=== PATIENT | male | born 1970 | race Caucasian/White ===

== ENCOUNTER 2020-10-13 21:36 | Emergency (ER) | payer MEDICAID, SELFPAY ==
--- NOTE | 2020-10-13 22:19 | PC.NURSE ---
PT BLANCHE, REFUSING TRIAGE UPON ARRIVAL, STATING I WANT TO GO TO [facility], ILL JUST CALL A CAB AND GO THERE .
--- NOTE | 2020-10-13 22:44 | PC.NURSE ---
this rn unable to get a hold of any taxi for patient. d/t inability to acquire any transportation pt now agreeable to evaluation in this ed.
[2020-10-13 22:53] VITALS: BP 119/68; PULSE 100; RESP 18; TEMP 36.6; O2SAT 95; BMI 30.5
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
--- NOTE | 2020-10-14 00:44 | PC.NURSE ---
pt has mahesh foot wounds and is on methadone, pt wants to go back to the surgeon that did the original operation that can treat his infection. pt wants to leave without treatment at this time. provider at bedside and all the risks explained to the pt. pt feet wrapped in fresh dressings and is ready to leave.
--- NOTE | 2020-10-14 01:20 | PC.NURSE ---
pt poc by ems 311
== END 2020-10-14 00:57 | disposition left against medical advice (07) ==
PROVIDERS: Emergency Provider Internal Medicine
DX: M86.272 Subacute osteomyelitis, left ankle and foot (principal); M25.572 Pain in left ankle and joints of left foot; I10 Essential (primary) hypertension; E11.9 Type 2 diabetes mellitus without complications; Z79.899 Other long term (current) drug therapy
CPT/HCPCS: 96360; 96361; 99283

== ENCOUNTER 2022-03-16 02:44 | Inpatient (IN) | payer MEDICAID, SELFPAY ==
[2022-03-16] VITALS (9 sets, daily range): BP systolic 106–136; BP diastolic 49–76; PULSE 71–93; RESP 13–20; TEMP 36.4–37.2; O2SAT 93–100; BMI 32.0
--- NOTE | ~2022-03-16 | XR_ITS ---
EXAMINATION: XR FOOT, RIGHT CLINICAL INFORMATION: Deep wound COMPARISON: 02/09/2020 TECHNIQUE: AP and lateral views of the right foot. FINDINGS: Status post amputation through the bases of the metatarsals. Articular alignment appears anatomic. No acute fracture is seen. There is soft tissue swelling at the distal foot with multiple clips present. No definite osseous findings to suggest osteomyelitis. XR/XR foot RT 2V IMPRESSION: Soft tissue swelling adjacent to the transmetatarsal amputation site, without appreciable acute osseous findings.
[2022-03-16 03:19] LABS: Basophils Percent Auto 0.5 % (0-2); Eosinophils Percent Auto 0.3 % (0-4); Hematocrit 35.9 % (42.0-52.0); Hemoglobin 11.9 g/dl (14.0-18.0); Imm Gran Abs Auto 0.01 X10*3/uL (0.00-0.03); Imm Gran Pct Auto 0.2 % (0.0-0.4); Lymphocytes Absolute Auto 1.2 X10*3/uL (1.2-4.9); Lymphocytes Percent Auto 19.7 % (20-40); MANUAL DIFF FLAG NO; Mean Corpuscular HGB Conc 33.1 g/dl (31.0-36.0); Mean Corpuscular Hemoglobin 29.4 pg (27.0-33.0); Mean Corpuscular Volume 88.6 fL (80.0-98.0); Monocytes Absolute Auto 0.7 X10*3/uL (0.1-1.2); Monocytes Percent Auto 11.7 % (2-11); Neutrophils Absolute Auto 4.2 x10*3/uL (2.0-8.3); Neutrophils Percent Auto 67.6 % (45-73); Platelet Count 117 X10*3/uL (160-400); Red Blood Count 4.05 X10*6/uL (4.60-5.80); Red Cell Distribution Width 15.1 % (11.0-16.0); White Blood Count 6.3 X10*3/uL (4.8-10.8)
--- NOTE | 2022-03-16 03:23 | PC.NURSE ---
Care of patient assumed in ED. Patient presents via EMS after calling [address] after running out of oxygen while walking to a [employer] and becoming SOB after his oxygen ran out. Patient ambulatory from EMS stretcher to ED stretcher. Patient is alert, oriented x3. He initially states he only called 911 because he ran out of oxygen, but then states while I'm here can you look at my foot? Patient's right foot is red with two notable ulcers and all toes amputated. Hx compartment syndrome to that foot resulting in amputation. Patient also with a history of hypertension and COVID (resulting in him being on 2L NC). Room air saturation 93% but 2L NC applied since it's patient's baseline. Call toth within reach.
[2022-03-16 04:18] LABS: Alanine Aminotransferase 39 U/L (0-40); Albumin Level 4.1 g/dL (3.5-5.0); Alkaline Phosphatase 180 U/L (39-117); Anion Gap 24 (12-20); Aspartate Amino Transferase 67 U/L (5-37); Bilirubin Total 0.8 mg/dL (0.0-1.0); Blood Urea Nitrogen 33 mg/dL (9-16); Calcium 8.9 mg/dL (8.4-10.2); Carbon Dioxide 17 mmol/L (22-29); Chloride 101 mmol/L (96-108); Creatinine Clr Calc Pharmacy 85.2; Estimated Glomerular Filt Rate 52; Glucose Random 250 mg/dL (60-115); Potassium 5.7 mmol/L (3.3-5.1); Sodium 136 mmol/L (135-145); Total Protein 7.9 g/dL (6.5-8.0)
--- NOTE | 2022-03-16 04:19 | ED.GENADULT ---
HPI - General Adult General Chief complaint: General Medical Stated complaint: SOB, RAN OUT OF 02 Time Seen by Provider: 03/16/22 02:54 Source: patient Mode of arrival: EMS Limitations: no limitations History of Present Illness HPI narrative: Patient homeless person history of substance abuse, diabetes and hypertension hypoxia after COVID-19 using 2 L oxygen on ambulation . today was walking on the street with his walker and felt more short of breath no cough no fever no leg swelling was saturating high 80s now to 2 L , 95% patient does have oxygen at home in the ER patient saturating 93% at room air Related Data Allergies Allergy/AdvReac Type Severity Reaction Status Date / Time aspirin [ASA] Allergy Unknown HIVES Unverified 02/20/20 16:18 naproxen [From NAPROSYN] Allergy Unknown HIVES Unverified 02/20/20 16:18 NSAIDS (Non-Steroidal Allergy Unknown HIVES Unverified 02/20/20 16:18 Anti-Inflamma [NSAIDS (NON-STEROIDAL ANTI-INFLAMMA] Penicillins [PENICILLINS] Allergy Unknown HIVES Unverified 02/20/20 16:18 From COMPAZINE Allergy Unknown HIVES Uncoded 02/20/20 16:18 Review of Systems Review of Systems: Yes all other systems are reviewed and are negative PMFSH Past Medical History Medical History Compartment syndrome of left lower extremity Diabetes HTN (hypertension) Social History Social History Advance Directives: No Advance Directives Information Provided: No Physical Exam ED Vital Signs: Vital Signs - 24 hr 03/16/22 02:54 03/16/22 02:58 03/16/22 04:03 Temperature 98.2 F 97.5 F Pulse Rate 93 79 Respiratory Rate 20 14 Blood Pressure 131/71 106/49 L Pulse Oximetry 93 98 97 Oxygen Delivery Method Room Air Nasal Cannula Room Air Oxygen Flow Rate 2 03/16/22 04:26 03/16/22 05:55 Temperature Pulse Rate 85 Respiratory Rate 17 Blood Pressure 121/62 Pulse Oximetry 93 98 Oxygen Delivery Method Room Air Nasal Cannula Oxygen Flow Rate 2 BMI result Body Mass Index 32.0 Appearance: Alert. Oriented X3. No acute distress. Lethargic and sleepy Eyes: PERRLA, No Nystagmus ENT: Pharynx normal. Oral Mucosa moist Neck: Normal inspection. Neck supple. CVS: Normal heart rate and rhythm. Pulses normal. Respiratory: No respiratory distress. Equal air entry bilateral, no wheezing/rales/rhonchi Abdomen: Soft and nontender. Bowel sounds are present, no mass palpable, no CVA tenderness Skin: Skin warm and dry. Normal skin color. Normal skin turgor. Extremities: No lower extremity edema. No calf tenderness , right metatarsal amputation with deep ulcers at the base surrounding erythema warmth all the way to mid broussard Neuro: Oriented X 3. No motor deficit. No sensory deficit.No cerebellar signs , cranial nerves II-XII intact Medical Decision Making MDM Narrative Medical decision making narrative: 6 am Patient noticed to be in ABBY with potassium 5.7 and creatinine of 1.43 and AA gap of 24 , will give IV fluids while asleep patient pulse ox dropped to 88% will admit patient for right leg cellulitis Lab Data Result diagrams: 03/16/22 03:06 03/16/22 03:55 Labs: Lab Results 03/16/22 03/16/22 03/16/22 Range/Units 03:06 03:55 06:00 WBC 6.3 (4.8-10.8) X10*3/uL RBC 4.05 L (4.60-5.80) X10*6/uL Hgb 11.9 L (14.0-18.0) g/dl Hct 35.9 L (42.0-52.0) % MCV 88.6 (80.0-98.0) fL MCH 29.4 (27.0-33.0) pg MCHC 33.1 (31.0-36.0) g/dl RDW 15.1 (11.0-16.0) % Plt Count 117 L (160-400) X10*3/uL MPV 11.0 (9.4-12.4) fL Immature Gran % (Auto) 0.2 (0.0-0.4) % Neut % (Auto) 67.6 (45-73) % Lymph % (Auto) 19.7 L (20-40) % [place] % (Auto) 11.7 H (2-11) % Eos % (Auto) 0.3 (0-4) % Baso % (Auto) 0.5 (0-2) % Lymph # (Auto) 1.2 (1.2-4.9) X10*3/uL [place] # (Auto) 0.7 (0.1-1.2) X10*3/uL Eos # (Auto) 0.0 (0.0-0.4) X10*3/uL Baso # (Auto) 0.0 (0.0-0.2) X10*3/uL Abs Immat Gran (auto) 0.01 (0.00-0.03) X10*3/uL Absolute Neuts (auto) 4.2 (2.0-8.3) x10*3/uL Absolute Nucleated RBC 0.000 (0.0-0.012) X10*3/uL Nucleated RBC % (auto) 0.0 (0.0-0.2) /100WBC Sodium 136 (135-145) mmol/L Potassium 5.7 H (3.3-5.1) mmol/L Chloride 101 (96-108) mmol/L Carbon Dioxide 17 L (22-29) mmol/L Anion Gap 24 H (12-20) BUN 33 H (9-16) mg/dL Creatinine 1.43 H (0.5-1.4) mg/dL Estim Creat Clear Calc 85.2 Estimated GFR 52 Random Glucose 250 H (60-115) mg/dL Lactic Acid 1.5 (0.5-2.0) mmol/L Calcium 8.9 (8.4-10.2) mg/dL Magnesium 2.0 (1.6-2.6) mg/dL Total Bilirubin 0.8 (0.0-1.0) mg/dL AST 67 H (5-37) U/L ALT 39 (0-40) U/L Alkaline Phosphatase 180 H (39-117) U/L Total Protein 7.9 (6.5-8.0) g/dL Albumin 4.1 (3.5-5.0) g/dL Discharge Plan Discharge Clinical Impression: Cellulitis, Acute and chronic respiratory failure with hypoxia Patient Disposition: Admitted As Inpatient
--- NOTE | 2022-03-16 05:17 | PC.NURSE ---
While providing patient with discharge paperwork, he states he doesn't feel safe to leave and begins swearing at this RN. K also results as slightly high at this time. MD Wilson made aware.
[2022-03-16] MEDS: Sodium Zirconium Cyclosilicate 10 GM POWD.PACK PO (05:21)
[2022-03-16] MEDS: 0.9 % Sodium Chloride 1,000 ML 999 ML IV (05:49)
[2022-03-16] MEDS: Calcium Gluconate/NaCl,Iso-Osm 2 GM/100 ML PLAST..BAG IV (05:49)
[2022-03-16 06:21] LABS: Lactic Acid 1.5 mmol/L (0.5-2.0)
[2022-03-16] MEDS: cefEPime HCl 2 GM in 0.9 % Sodium Chloride 50 ML IV (06:33)
[2022-03-16 09:53] LABS: COVID-19 Test Negative (Negative); IDNOW Serial# 55D5AD1C
[2022-03-16 11:16] LABS: ABG Base Excess 2.4 mmol/L; ABG HCO3 28 mmol/L (22-26); ABG pCO2 47 mmHg (32-45); ABG pH 7.37 (7.35-7.45); ABG pO2 81 mmHg (83-108)
[2022-03-16 11:17] LABS: ABG Refer to POC result
[2022-03-16 11:34] LABS: Lactate Dehydrogenase 248 U/L (118-273)
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
--- NOTE | 2022-03-16 12:44 | PHA.PROG ---
Admission Date/Time: March 16, 2022 12:02 Indication: SKIN AND SKIN STRUCTURE Weight in k.295 kg Adjusted body weight in K.7 [place] body weight in Kg: Obesity Dosing Indication % IBW:37% OVER IBW Serum Creatinine - Last 168 Hours 03/16/22 03:55 Creatinine 1.43 H Estimated CrCl and GFR - Last 168 Hours 03/16/22 03:55 Estim Creat Clear Calc 85.2 Estimated GFR 52 Vancomycin Loading Dose: 2000 MG Current Vancomycin Dosing Regimen: 1500 MG Q 24 HOURS Vancomycin Monitoring using AUC goal of 400 - 600 range with trough as surrogate marker: PREDICTED AUC OF 472 Date and Time for next Vancomycin Level to be drawn: WILL CHECK A RANDOM AFTER 2 DOSES Pharmacist Comments on Vancomycin Plan:if renal function improves may need to increase to twice a day Vancomycin dosing will take advantage of [employer] as a clinical decision support tool that uses Bayesian modeling to calculate individual patient's pharmacokinetic parameters and forecast the patient's drug concentration time course with the target goal AUC 24 range of 400 - 600 mg/L/hr.
[2022-03-16] MEDS: Insulin Glargine,Hum.rec.anlog 100 UNIT/ML 10 ML VIAL 90 UNIT SUBCUT (13:43)
[2022-03-16 13:59] LABS: Estimated Average Glucose 212 mg/dL
[2022-03-16] MEDS: 0.9 % Sodium Chloride 1,000 ML 100 ML IVCONT (14:09)
--- NOTE | 2022-03-16 14:13 | MHC.RECOVRN ---
This engineering technical writer received consult via the Care Team, attempted to meet w/ pt. Pt unable to engage in conversation, pt not waking to verbal/physical stimuli, pt continued sleeping, t/w will attempt to reassess.
--- NOTE | 2022-03-16 15:00 | PHA.MEDREC ---
Pharmacy Consult ? Medication Reconciliation Pharmacy has completed the medication reconciliation. Patient is non arousable, tried to speak to him multiple times throughout the day. Used pharmacy claims to compile med list.
[2022-03-16] MEDS: Gabapentin 600 MG TABLET PO ×2 (15:37→20:56)
[2022-03-16] MEDS: cloNIDine HCL 0.2 MG TABLET PO ×2 (15:37→20:56)
[2022-03-16 18:18] LABS: Glucose, Whole Blood 103 mg/dL (60-115)
[2022-03-16 20:42] LABS: Glucose, Whole Blood 218 mg/dL (60-115)
[2022-03-16] MEDS: Atorvastatin Calcium 40 MG TABLET PO (20:56)
[2022-03-16] MEDS: QUEtiapine Fumarate 100 MG TABLET PO (20:56)
[2022-03-16] MEDS: Furosemide 40 MG TABLET PO (20:56)
[2022-03-16] MEDS: clonazePAM 1 MG TABLET PO (20:56)
[2022-03-16] MEDS: Insulin Lispro 100 UNIT/ML 3 ML VIAL SUBCUT (20:59)
--- NOTE | 2022-03-16 21:14 | HE.PHANOTE ---
RE: methadone Dr. Dias put in a daily methadone dose of 140mg however no verification form is on file; spoke to nurse Sera who noted she will work on getting the verification form for 03/17/22. Consulted with Dr. Dias and agreed to put in a one time 40mg dose for now pending verification in the morning.
--- NOTE | 2022-03-16 21:28 | PC.NURSE ---
patient with Chronic ulceration to right foot,Dr. Dias notified,questioned need for exhibit specialist consult
[2022-03-16] MEDS: methADONE HCl 20 MG/2 ML ORAL.CONC 40 MG PO (21:29)
--- NOTE | 2022-03-17 01:14 | PC.NURSE ---
Addendum entered by Sophia Beauchamp RN 03/17/22 07:03: Was about to give the Regular insulin , but pt demanded his POC checked first by fingersticks, and refusing his Regular insulin, Dr. Dias was updated that pt is refusing his insuliin for now until fingerstick is done. Addendum entered by Sophia Beauchamp RN 03/17/22 07:02: correction to previous chart, MD ordered Regular insulin 5 units IVP. Addendum entered by Sophia Beauchamp RN 03/17/22 06:31: Lipro 5 untis SC ordered later. Addendum entered by Sophia Beauchamp RN 03/17/22 06:29: Critical result from lab came with glucose =390, Dr. Dias was informed, no further order. Original Note: Pt was refusing IVF to continue, he said he drinks and eat a lot more than the bags he's getting, explained about his high BUN and Creatinine when admitted, but still refusing and promised to eat and drink more, Dr. Dias was made aware.
[2022-03-17 06:20] LABS: Alanine Aminotransferase 26 U/L (0-40); Albumin Level 3.3 g/dL (3.5-5.0); Alkaline Phosphatase 148 U/L (39-117); Anion Gap 15 (12-20); Aspartate Amino Transferase 36 U/L (5-37); Bilirubin Total 0.4 mg/dL (0.0-1.0); Blood Urea Nitrogen 19 mg/dL (9-16); Calcium 8.5 mg/dL (8.4-10.2); Carbon Dioxide 26 mmol/L (22-29); Chloride 104 mmol/L (96-108); Creatinine Clr Calc Pharmacy 97.5; Estimated Glomerular Filt Rate > 60; Potassium 5.2 mmol/L (3.3-5.1); Sodium 140 mmol/L (135-145); Total Protein 6.1 g/dL (6.5-8.0)
[2022-03-17 06:25] LABS: Glucose Random 390 mg/dL (60-115)
[2022-03-17 07:35] VITALS: BP 117/55; PULSE 80; RESP 20; TEMP 37; O2SAT 95
[2022-03-17] MEDS: Furosemide 40 MG TABLET PO ×2 (07:41→19:29)
[2022-03-17] MEDS: cloNIDine HCL 0.2 MG TABLET PO ×3 (07:41→19:29)
[2022-03-17] MEDS: QUEtiapine Fumarate 100 MG TABLET PO ×2 (07:41→19:29)
[2022-03-17] MEDS: Gabapentin 600 MG TABLET PO ×3 (07:41→19:29)
[2022-03-17] MEDS: Insulin Glargine,Hum.rec.anlog 100 UNIT/ML 10 ML VIAL 90 UNIT SUBCUT (07:43)
[2022-03-17] MEDS: 0.9 % Sodium Chloride Flush 3 ML SYRINGE IVFLUSH (07:47)
[2022-03-17 07:49] LABS: Glucose, Whole Blood 241 mg/dL (60-115)
--- NOTE | 2022-03-17 07:56 | HE.PHANOTE ---
RE VANCO SCR IS IMPROVING (1.25) SO WILL CHANGE TO 1 GRAM Q12. NEXT TROUGH OS 03/18 @0600. ON 1G Q12, SUSPECTED AUC 545, TROUGH 16.2 ALLY
[2022-03-17] MEDS: vancomycin HCL 1,000 MG in 0.9 % Sodium Chloride 250 ML 270 MG IV ×2 (07:57→19:27)
--- NOTE | 2022-03-17 09:04 | P.PNIM_ITS ---
Subjective Subjective Date of Service: 03/17/22 Interval History: cc: right TMA site pain, ran out of home o2 interval history:right tma site pain Cardiovascular Cardiovascular: Reports no additional cardiovascular complaints Respiratory Respiratory: Reports no additional respiratory complaints Physical Exam Vital Signs: Vital Signs: Last Vital Signs Temp 98.6 F 03/17/22 07:35 Pulse 80 03/17/22 07:35 Resp 20 03/17/22 07:35 BP 117/55 L 03/17/22 07:35 Pulse Ox 95 03/17/22 07:35 O2 Del Method 03/17/22 07:35 O2 Flow Rate 2.0 03/17/22 07:35 BMI result Body Mass Index 32.0 General: AO X 3, no acute distress Resp: CTA bilateral, no accessory muscles used CVS: S1,S2,RRR GI: soft, non tender, non distended Neuro: motor grossly intact, alert Psych: appropriate affect, appropriate insight RLE tMA site erythema, shallow ulcers Objective Data Active Medications Acetaminophen (Acetaminophen 325 Mg Tablet) 650 mg PO Q6H PRN PRN Reason: Pain, Mild (Pain Scale 1-3) Atorvastatin Calcium (Atorvastatin Calcium 40 Mg Tablet) 40 mg PO BEDTIME [facility] Last Admin: 03/16/22 20:56 Dose: 40 mg Documented By: CHADD Clonazepam (Clonazepam 1 Mg Tablet) 1 mg PO BID PRN PRN Reason: anxiety Last Admin: 03/16/22 20:56 Dose: 1 mg Documented By: CHADD Clonidine HCl (Clonidine Hcl 0.2 Mg Tablet) 0.2 mg PO TID [facility]; Protocol Last Admin: 03/17/22 07:41 Dose: 0.2 mg Documented By: MARCO Dextrose (Dextrose 50 % 25 Gm/50 Ml Syringe) 25 gm IVPUSH Q15M PRN; Protocol PRN Reason: per Hypoglycemia Standing Ord. Enoxaparin Sodium (Enoxaparin Sodium 40 Mg/0.4 Ml Syringe) 40 mg SUBCUT Q24H [facility] Last Admin: 03/16/22 15:37 Dose: Not Given Documented By: DAVID Non-Admin Reason: Patient Refused Furosemide (Furosemide 40 Mg Tablet) 40 mg PO BID [facility]; Protocol Last Admin: 03/17/22 07:41 Dose: 40 mg Documented By: MARCO Gabapentin (Gabapentin 600 Mg Tablet) 600 mg PO TID [facility] Last Admin: 03/17/22 07:41 Dose: 600 mg Documented By: MARCO Glucose (Glucose Gel 15 Gm Gel..Gram.) 15 gm PO Q15M PRN; Protocol PRN Reason: per Hypoglycemia Standing Ord. Sodium Chloride (Ns) 1,000 mls @ 100 mls/hr IVCONT .Q10H [facility] Last Infusion: 03/17/22 00:17 Dose: 0 mls/hr Documented By: ANDREW Vancomycin HCl 1,000 mg/ (Sodium Chloride) 270 mls @ 270 mls/hr IV Q12H [facility] Last Admin: 03/17/22 07:57 Dose: 270 mls/hr Documented By: MARCO Insulin Glargine (Insulin Glargine,Hum.Rec.Anlog 100 Unit/Ml 10 Ml Vial) 90 unit SUBCUT DAILY [facility] Last Admin: 03/17/22 07:43 Dose: 90 unit Documented By: MARCO Insulin Human Lispro (Insulin Lispro 100 Unit/Ml 3 Ml Vial) 0 unit SUBCUT QIDACHS [facility]; Protocol Last Admin: 03/17/22 07:44 Dose: Not Given Documented By: MARCO Non-Admin Reason: Patient Refused Methadone HCl (Methadone Hcl 20 Mg/2 Ml Oral.Conc) 140 mg PO DAILY [facility] Pharmacy Consult (Consult Rx Vancomycin Dosing) 1 each MISCELLANE DAILY PRN PRN Reason: Consult order Pharmacy Consult (Consult Rx Vancomycin Dosing) 1 each MISCELLANE DAILY PRN PRN Reason: Consult order Quetiapine Fumarate (Quetiapine Fumarate 100 Mg Tablet) 100 mg PO BID [facility] Last Admin: 03/17/22 07:41 Dose: 100 mg Documented By: MARCO Sodium Chloride (0.9 % Sodium Chloride Flush 3 Ml Syringe) 3 ml IVFLUSH QSHIFT [facility] Last Admin: 03/17/22 07:47 Dose: 3 ml Documented By: MARCO Labs CBC & Chem 7: 03/16/22 03:06 03/17/22 05:36 Labs: Laboratory Results - last 24 hr 03/16/22 03/16/22 03/16/22 09:12 11:10 11:11 O2 Saturation 96.0 ABG pH at Pt Temp 7.37 ABG pCO2 at Pt Temp 47 H ABG pO2 at Pt Temp 81 L ABG HCO3 28 H ABG Base Excess (Actual) 2.4 Anion Gap Estim Creat Clear Calc Estimated GFR POC Glucose Random Glucose Estimat Average Glucose Hemoglobin A1c % Calcium Total Bilirubin AST ALT Alkaline Phosphatase Lactate Dehydrogenase 248 Total Protein Albumin COVID-19 (NACHO) Negative COVID-19 Clin Com See Note 03/16/22 03/16/22 03/16/22 13:27 18:15 20:37 O2 Saturation ABG pH at Pt Temp ABG pCO2 at Pt Temp ABG pO2 at Pt Temp ABG HCO3 ABG Base Excess (Actual) Anion Gap Estim Creat Clear Calc Estimated GFR POC Glucose 103 218 H Random Glucose Estimat Average Glucose 212 Hemoglobin A1c % 9.0 Calcium Total Bilirubin AST ALT Alkaline Phosphatase Lactate Dehydrogenase Total Protein Albumin COVID-19 (NACHO) COVID-19 Clin Com 03/17/22 03/17/22 05:36 07:29 O2 Saturation ABG pH at Pt Temp ABG pCO2 at Pt Temp ABG pO2 at Pt Temp ABG HCO3 ABG Base Excess (Actual) Anion Gap 15 Estim Creat Clear Calc 97.5 Estimated GFR > 60 POC Glucose 241 H Random Glucose 390 H* Estimat Average Glucose Hemoglobin A1c % Calcium 8.5 Total Bilirubin 0.4 AST 36 D ALT 26 Alkaline Phosphatase 148 H Lactate Dehydrogenase Total Protein 6.1 L D Albumin 3.3 L COVID-19 (NACHO) COVID-19 Clin Com Microbiology Microbiology Results: Microbiology 03/16/22 06:00 Blood Culture - Preliminary Blood - Venous No growth after 24 hours. 03/16/22 06:00 Blood Culture - Preliminary Blood - Venous No growth after 24 hours. 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 Quality Stroke Does the patient have a stroke diagnosis?: No VTE Prior VTE?: No VTE Risk Level:: Medical - moderate - high VTE Device Contraindication: Treatment Not Indicated VTE Drug Contraindication: N/A - Med Ordered
--- NOTE | 2022-03-17 09:23 | MHC.RECOVRN ---
This health technical writer met w/ pt, pt sleeping, awake to verbal stimuli. Pt reports last use of heroin was last week, snorted approximately one bundle heroin. Pt reports has been in and out of hospitals for past 2 years. Pt states, while staying at the hospital, receives 140mg MTD daily. Pt reports two years ago, attended [facility] Methadone clinic. Pt reports MTD has helped pt with maintaining recovery from opiates and addresses chronic pain. Pt reports first heroin use at age [age] years old. Pt reports has been to detox in the past twice. Pt reports in the past drank ETOH, since diagnosis w/ Covid pt has not drank in approximately 2 years. Pt reports restleg legs and aches/pain, COWS=3. Discussed if pt would be interested in continuing with Methadone when discharged, pt states yes. Pt reports plan to move out to [facility] and interest in MTD clinic in [place]. Pts RN aware.
[2022-03-17] MEDS: 0.9 % Sodium Chloride 1,000 ML 100 ML IVCONT (11:25)
[2022-03-17 11:36] LABS: Glucose, Whole Blood 181 mg/dL (60-115)
--- NOTE | 2022-03-17 12:31 | MHC.RECOVRN ---
This video games storywriter met w/ pt, pt awake, alert, sitting up in bed. Pt frustrated as pt wants 140mg Methadone. This video games storywriter reviewed process, to start w/ 40mg MTD, as we need verification, offered for pt to sign AARON to verify last dose received at [facility]. Pt angry, upset, verbal escalation, states gave last dose letter to staff here . This video games storywriter informed pt that information was not available in chart, this video games storywriter encouraged pt to look through personal items. This video games storywriter reviewed w/ pt, here to make pt comfortable, ensure that withdrawal symptoms are addressed. Pt found letter and threw it at this writers face. Pt apologized for throwing the letter. Provider aware of last dose letter.
--- NOTE | 2022-03-17 13:27 | P.EN_ITS ---
Event Note Date of Service: 03/17/22 Event Note: This typewriter ribbon winder verified does with [facility] addiction consult service. Patient last received 140 mg methadone at [facility] on 03/14 22.
--- NOTE | 2022-03-17 13:27 | PM.EVENT ---
Event Note Date of Service: 03/17/22 Event Note: This food writer verified does with [facility] addiction consult service. Patient last received 140 mg methadone at [facility] on 03/14 22.
[2022-03-17] MEDS: methADONE HCl 20 MG/2 ML ORAL.CONC 140 MG PO (13:54)
[2022-03-17 13:58] VITALS: BP 116/56; PULSE 72; RESP 15; TEMP 36.9; O2SAT 99
[2022-03-17 15:35] VITALS: BP 153/72; PULSE 81; RESP 17; TEMP 36.4; O2SAT 99
--- NOTE | 2022-03-17 15:58 | MHC.RECOVRN ---
This lead technical writer met w/ pt, pt awake, alert, sitting up in bed drinking coffee, checked in about 140mg MTD, t/w asked if pt was feeling better, pt states yes. Brighter, comfortable affect. Provider aware.
[2022-03-17 16:12] LABS: Glucose, Whole Blood 327 mg/dL (60-115)
[2022-03-17] MEDS: Insulin Lispro 100 UNIT/ML 3 ML VIAL SUBCUT ×2 (16:36→19:41)
[2022-03-17 19:00] VITALS: BP 134/63; PULSE 76; RESP 16; TEMP 36.4; O2SAT 100
[2022-03-17] MEDS: Atorvastatin Calcium 40 MG TABLET PO (19:29)
[2022-03-17] MEDS: clonazePAM 1 MG TABLET PO (19:37)
[2022-03-17 19:42] LABS: Glucose, Whole Blood 289 mg/dL (60-115)
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
[2022-03-17 23:20] VITALS: BP 130/69; PULSE 62; RESP 17; TEMP 36.1; O2SAT 99
[2022-03-18 03:00] VITALS: BP 136/64; PULSE 69; RESP 17; TEMP 36.5; O2SAT 94
[2022-03-18] MEDS: 0.9 % Sodium Chloride 1,000 ML 100 ML IVCONT (05:48)
[2022-03-18 06:56] VITALS: BP 116/65; PULSE 73; RESP 19; TEMP 36.1; O2SAT 92
[2022-03-18 07:10] LABS: Glucose, Whole Blood 185 mg/dL (60-115)
[2022-03-18 08:31] LABS: Hematocrit 36.8 % (42.0-52.0); Hemoglobin 12.1 g/dl (14.0-18.0); Mean Corpuscular HGB Conc 32.9 g/dl (31.0-36.0); Mean Corpuscular Hemoglobin 29.2 pg (27.0-33.0); Mean Corpuscular Volume 88.9 fL (80.0-98.0); Red Blood Count 4.14 X10*6/uL (4.60-5.80); White Blood Count 3.2 X10*3/uL (4.8-10.8)
[2022-03-18] MEDS: Insulin Glargine,Hum.rec.anlog 100 UNIT/ML 10 ML VIAL 90 UNIT SUBCUT (08:41)
[2022-03-18] MEDS: cloNIDine HCL 0.2 MG TABLET PO ×3 (08:45→21:05)
[2022-03-18] MEDS: Insulin Lispro 100 UNIT/ML 3 ML VIAL SUBCUT ×4 (08:45→21:05)
--- NOTE | 2022-03-18 08:45 | P.PNIM_ITS ---
Subjective Subjective Date of Service: 03/18/22 Interval History: cc: right TMA site pain, ran out of home o2 interval history:right tma site pain Cardiovascular Cardiovascular: Reports no additional cardiovascular complaints Respiratory Respiratory: Reports no additional respiratory complaints Physical Exam Vital Signs: Vital Signs: Last Vital Signs Temp 97 F 03/18/22 06:56 Pulse 73 03/18/22 06:56 Resp 19 03/18/22 06:56 BP 116/65 03/18/22 06:56 Pulse Ox 92 03/18/22 06:56 O2 Del Method 03/18/22 06:56 O2 Flow Rate 2 03/17/22 23:20 BMI result Body Mass Index 32.0 General: AO X 3, no acute distress Resp: CTA bilateral, no accessory muscles used CVS: S1,S2,RRR GI: soft, non tender, non distended Neuro: motor grossly intact, alert Psych: appropriate affect, appropriate insight RLE tMA site erythema, shallow ulcers Objective Data Active Medications Acetaminophen (Acetaminophen 325 Mg Tablet) 650 mg PO Q6H PRN PRN Reason: Pain, Mild (Pain Scale 1-3) Atorvastatin Calcium (Atorvastatin Calcium 40 Mg Tablet) 40 mg PO BEDTIME [facility] Last Admin: 03/17/22 19:29 Dose: 40 mg Documented By: HUY Clonazepam (Clonazepam 1 Mg Tablet) 1 mg PO BID PRN PRN Reason: anxiety Last Admin: 03/17/22 19:37 Dose: 1 mg Documented By: HUY Clonidine HCl (Clonidine Hcl 0.2 Mg Tablet) 0.2 mg PO TID [facility]; Protocol Last Admin: 03/17/22 19:29 Dose: 0.2 mg Documented By: HUY Dextrose (Dextrose 50 % 25 Gm/50 Ml Syringe) 25 gm IVPUSH Q15M PRN; Protocol PRN Reason: per Hypoglycemia Standing Ord. Enoxaparin Sodium (Enoxaparin Sodium 40 Mg/0.4 Ml Syringe) 40 mg SUBCUT Q24H [facility] Last Admin: 03/17/22 16:56 Dose: Not Given Documented By: MARCO Non-Admin Reason: Patient Refused Furosemide (Furosemide 40 Mg Tablet) 40 mg PO BID [facility]; Protocol Last Admin: 03/17/22 19:29 Dose: 40 mg Documented By: HUY Gabapentin (Gabapentin 600 Mg Tablet) 600 mg PO TID [facility] Last Admin: 03/17/22 19:29 Dose: 600 mg Documented By: HUY Glucose (Glucose Gel 15 Gm Gel..Gram.) 15 gm PO Q15M PRN; Protocol PRN Reason: per Hypoglycemia Standing Ord. Sodium Chloride (Ns) 1,000 mls @ 100 mls/hr IVCONT .Q10H [facility] Last Infusion: 03/18/22 05:49 Dose: 0 mls/hr Documented By: HUY Vancomycin HCl 1,000 mg/ (Sodium Chloride) 270 mls @ 270 mls/hr IV Q12H [facility] Last Infusion: 03/17/22 21:00 Dose: 0 mls/hr Documented By: HUY Insulin Glargine (Insulin Glargine,Hum.Rec.Anlog 100 Unit/Ml 10 Ml Vial) 90 unit SUBCUT DAILY [facility] Last Admin: 03/17/22 07:43 Dose: 90 unit Documented By: MARCO Insulin Human Lispro (Insulin Lispro 100 Unit/Ml 3 Ml Vial) 0 unit SUBCUT QIDACHS [facility]; Protocol Last Admin: 03/17/22 19:41 Dose: 6 unit Documented By: HUY Methadone HCl (Methadone Hcl 20 Mg/2 Ml Oral.Conc) 140 mg PO DAILY [facility] Last Admin: 03/17/22 13:54 Dose: 140 mg Documented By: MARCO Pharmacy Consult (Consult Rx Vancomycin Dosing) 1 each MISCELLANE DAILY PRN PRN Reason: Consult order Pharmacy Consult (Consult Rx Vancomycin Dosing) 1 each MISCELLANE DAILY PRN PRN Reason: Consult order Quetiapine Fumarate (Quetiapine Fumarate 100 Mg Tablet) 100 mg PO BID [facility] Last Admin: 03/17/22 19:29 Dose: 100 mg Documented By: HUY Sodium Chloride (0.9 % Sodium Chloride Flush 3 Ml Syringe) 3 ml IVFLUSH QSHIFT [facility] Last Admin: 03/17/22 21:02 Dose: Not Given Documented By: HUY Non-Admin Reason: IV Running Labs CBC & Chem 7: 03/18/22 08:17 03/17/22 05:36 Labs: Laboratory Results - last 24 hr 03/17/22 03/17/22 03/17/22 11:29 15:38 19:33 MCV MCH MCHC RDW Absolute Nucleated RBC Nucleated RBC % (auto) POC Glucose 181 H 327 H 289 H 03/18/22 03/18/22 06:55 08:17 MCV 88.9 MCH 29.2 MCHC 32.9 RDW 15.0 Absolute Nucleated RBC 0.000 Nucleated RBC % (auto) 0.0 POC Glucose 185 H Microbiology Microbiology Results: Microbiology 03/16/22 06:00 Blood Culture - Preliminary Blood - Venous No growth after 48 hours. 03/16/22 06:00 Blood Culture - Preliminary Blood - Venous No growth after 48 hours. Assessment and Plan (1) Cellulitis: Status: Acute Plan 51M with pmh DM, PAD, opiate dependence, htn, hld, mood disorder, chornic h ypoxic respiratory failure due to post covid syndrome, presented with right TMA site pain and running out of o2 right TMA cellulitis and ulcer due to PAD and DM vanco, follow up cultures, ESR statin insulin, monitor poc rudi with mild hyperkalemia resolved, follow up repeat chronic hypoxic respiratory failure due to recent covid at baseline o2 obesity weight loss recommended hld statin htn clonidine mood disorder seroquel opiate dependence methadone dvt prophylaxis - lovenox full code reason for continued hospitalization:ongoing iv abx for cellulitis in patient at risk for decompensation due to DM and PAD. Quality Stroke Does the patient have a stroke diagnosis?: No VTE Prior VTE?: No VTE Risk Level:: Medical - moderate - high VTE Device Contraindication: Treatment Not Indicated VTE Drug Contraindication: N/A - Med Ordered
[2022-03-18] MEDS: clonazePAM 1 MG TABLET PO (08:46)
[2022-03-18] MEDS: Gabapentin 600 MG TABLET PO ×3 (08:46→21:05)
[2022-03-18] MEDS: Furosemide 40 MG TABLET PO ×2 (08:46→21:05)
[2022-03-18 08:47] LABS: Vancomycin Random 10.8 mcg/mL (15-20)
[2022-03-18] MEDS: 0.9 % Sodium Chloride Flush 3 ML SYRINGE IVFLUSH ×2 (08:47→15:53)
[2022-03-18] MEDS: QUEtiapine Fumarate 100 MG TABLET PO ×2 (08:47→21:05)
[2022-03-18] MEDS: methADONE HCl 20 MG/2 ML ORAL.CONC 140 MG PO (08:54)
[2022-03-18 08:59] LABS: Blood Urea Nitrogen 14 mg/dL (9-16); Calcium 8.4 mg/dL (8.4-10.2); Creatinine Clr Calc Pharmacy 120.7; Estimated Glomerular Filt Rate > 60; Glucose Fasting 165 mg/dL (60-99); Mean Platelet Volume 10.7 fL (9.4-12.4); Platelet Count 100 X10*3/uL (160-400)
[2022-03-18 09:07] LABS: Anion Gap 19 (12-20); Carbon Dioxide 25 mmol/L (22-29); Chloride 102 mmol/L (96-108); Potassium 3.7 mmol/L (3.3-5.1); Sodium 142 mmol/L (135-145)
--- NOTE | 2022-03-18 09:17 | HE.PHANOTE ---
re susie; trough returned @ 10.8. Will increase dose to 1250mg q12 h. new AUC 520, trough 13.7. Based off current trough, AUC is [address]
--- NOTE | 2022-03-18 09:23 | MHC.CM.PN ---
GAYATHRI 03/18/22 MALE 51 DX RLE CELLULITIS. CM met with patient this am for CM assessment. He was very irritated during the interview. He stated that he has been hospitalized for the past year due to Covid. Intially he was @ [facility] in ICU. He was discharged to rehab. He states he had a Cardiac arrest and was sent to [facility] ICU. He is now living in a Motel in [place]. He states that he plans to move to [place]. DP return to [facility] via bus.
[2022-03-18 09:30] LABS: Erythrocyte Sedimentation Rate 44 MM/HR (0-15)
[2022-03-18] MEDS: vancomycin HCL 1,250 MG in 0.9 % Sodium Chloride 250 ML 166.67 MG IV (10:45)
[2022-03-18 11:00] VITALS: BP 123/61; PULSE 75; RESP 18; TEMP 36.4; O2SAT 99
[2022-03-18 11:14] LABS: Glucose, Whole Blood 242 mg/dL (60-115)
[2022-03-18 14:51] VITALS: BP 136/72; PULSE 94; RESP 18; TEMP 36.8; O2SAT 98
[2022-03-18 15:32] LABS: Glucose, Whole Blood 235 mg/dL (60-115)
--- NOTE | 2022-03-18 16:04 | PC.NURSE ---
Addendum entered by Joseph Darby RN 03/18/22 16:05: DR Pa was notified via [employer]. Educated patient on need for lovenox, and encouraged activity. Original Note: Patient refused lovenox
--- NOTE | 2022-03-18 17:29 | PC.NURSE ---
patient refuses bed and chair alarm,encouraged patient to ask for assistance
[2022-03-18 18:53] VITALS: BP 125/68; PULSE 61; RESP 18; TEMP 37; O2SAT 98
[2022-03-18 20:04] LABS: Glucose, Whole Blood 205 mg/dL (60-115)
[2022-03-18] MEDS: Atorvastatin Calcium 40 MG TABLET PO (21:05)
[2022-03-18] MEDS: vancomycin HCL 1,250 MG in 0.9 % Sodium Chloride 250 ML 166.66 MG IV (21:06)
[2022-03-18 23:17] VITALS: BP 119/70; PULSE 60; RESP 17; TEMP 36; O2SAT 99
[2022-03-19] MEDS: 0.9 % Sodium Chloride Flush 3 ML SYRINGE IVFLUSH ×4 (00:01→20:32)
[2022-03-19 03:00] VITALS: BP 130/69; PULSE 70; RESP 18; TEMP 36.1; O2SAT 99
[2022-03-19 07:00] VITALS: BP 107/55; PULSE 68; RESP 18; TEMP 36.4; O2SAT 91
[2022-03-19 08:02] LABS: Glucose, Whole Blood 314 mg/dL (60-115)
[2022-03-19] MEDS: Furosemide 40 MG TABLET PO ×2 (08:08→20:31)
[2022-03-19] MEDS: QUEtiapine Fumarate 100 MG TABLET PO ×2 (08:08→20:31)
[2022-03-19] MEDS: clonazePAM 1 MG TABLET PO ×2 (08:08→20:36)
[2022-03-19] MEDS: Gabapentin 600 MG TABLET PO ×3 (08:08→20:31)
[2022-03-19 08:09] LABS: Hemoglobin 11.3 g/dl (14.0-18.0); Mean Corpuscular HGB Conc 33.2 g/dl (31.0-36.0); Mean Corpuscular Hemoglobin 29.4 pg (27.0-33.0); Mean Corpuscular Volume 88.3 fL (80.0-98.0); Mean Platelet Volume 10.3 fL (9.4-12.4); PLT CLUMP 1; Red Blood Count 3.85 X10*6/uL (4.60-5.80); Red Cell Distribution Width 14.6 % (11.0-16.0)
[2022-03-19] MEDS: Insulin Lispro 100 UNIT/ML 3 ML VIAL SUBCUT ×4 (08:09→20:31)
[2022-03-19] MEDS: cloNIDine HCL 0.2 MG TABLET PO ×3 (08:09→20:31)
[2022-03-19 08:10] LABS: White Blood Count 3.3 X10*3/uL (4.8-10.8)
[2022-03-19] MEDS: methADONE HCl 20 MG/2 ML ORAL.CONC 140 MG PO (08:10)
[2022-03-19] MEDS: Insulin Glargine,Hum.rec.anlog 100 UNIT/ML 10 ML VIAL 90 UNIT SUBCUT (08:10)
[2022-03-19 08:21] LABS: Anion Gap 17 (12-20); Blood Urea Nitrogen 12 mg/dL (9-16); Calcium 8.5 mg/dL (8.4-10.2); Carbon Dioxide 27 mmol/L (22-29); Chloride 100 mmol/L (96-108); Creatinine Clr Calc Pharmacy 109.8; Estimated Glomerular Filt Rate > 60; Glucose Fasting 362 mg/dL (60-99); Sodium 140 mmol/L (135-145)
[2022-03-19 08:39] LABS: Platelet Count 93 X10*3/uL (160-400)
--- NOTE | 2022-03-19 09:56 | HO.PM.IMPN ---
Subjective Subjective Date of Service: 03/19/22 Interval History: cc: right TMA site pain, ran out of home o2 interval history:right tma site pain Cardiovascular Cardiovascular: Reports no additional cardiovascular complaints Respiratory Respiratory: Reports no additional respiratory complaints Physical Exam Vital Signs: Vital Signs: Last Vital Signs Temp 97.6 F 03/19/22 07:00 Pulse 68 03/19/22 07:00 Resp 18 03/19/22 07:00 BP 107/55 L 03/19/22 07:00 Pulse Ox 91 L 03/19/22 07:00 O2 Del Method 03/19/22 07:00 O2 Flow Rate 2 03/19/22 03:00 BMI result Body Mass Index 32.0 General: AO X 3, no acute distress Resp: CTA bilateral, no accessory muscles used CVS: S1,S2,RRR GI: soft, non tender, non distended Neuro: motor grossly intact, alert Psych: appropriate affect, appropriate insight RLE tMA site improved erythema, shallow ulcers with some drainage Objective Data Active Medications Acetaminophen (Acetaminophen 325 Mg Tablet) 650 mg PO Q6H PRN PRN Reason: Pain, Mild (Pain Scale 1-3) Atorvastatin Calcium (Atorvastatin Calcium 40 Mg Tablet) 40 mg PO BEDTIME [facility] Last Admin: 03/18/22 21:05 Dose: 40 mg Documented By: TORSTEN Clonazepam (Clonazepam 1 Mg Tablet) 1 mg PO BID PRN PRN Reason: anxiety Last Admin: 03/19/22 08:08 Dose: 1 mg Documented By: KERVIN Clonidine HCl (Clonidine Hcl 0.2 Mg Tablet) 0.2 mg PO TID [facility]ICHARD; Protocol Last Admin: 03/19/22 08:09 Dose: 0.2 mg Documented By: KERVIN Dextrose (Dextrose 50 % 25 Gm/50 Ml Syringe) 25 gm IVPUSH Q15M PRN; Protocol PRN Reason: per Hypoglycemia Standing Ord. Enoxaparin Sodium (Enoxaparin Sodium 40 Mg/0.4 Ml Syringe) 40 mg SUBCUT Q24H [facility] Last Admin: 03/18/22 15:50 Dose: Not Given Documented By: AARTI Non-Admin Reason: Patient Refused Furosemide (Furosemide 40 Mg Tablet) 40 mg PO BID [facility]; Protocol Last Admin: 03/19/22 08:08 Dose: 40 mg Documented By: KERVIN Gabapentin (Gabapentin 600 Mg Tablet) 600 mg PO TID [facility] Last Admin: 03/19/22 08:08 Dose: 600 mg Documented By: KERVIN Glucose (Glucose Gel 15 Gm Gel..Gram.) 15 gm PO Q15M PRN; Protocol PRN Reason: per Hypoglycemia Standing Ord. Vancomycin HCl 1,250 mg/ (Sodium Chloride) 250 mls @ 166.667 mls/hr IV Q12H [facility] Last Infusion: 03/19/22 01:28 Dose: 0 mls/hr Documented By: OUMAR Insulin Glargine (Insulin Glargine,Hum.Rec.Anlog 100 Unit/Ml 10 Ml Vial) 90 unit SUBCUT DAILY [facility] Last Admin: 03/19/22 08:10 Dose: 90 unit Documented By: KERVIN Insulin Human Lispro (Insulin Lispro 100 Unit/Ml 3 Ml Vial) 0 unit SUBCUT QIDACHS [facility]; Protocol Last Admin: 03/19/22 08:09 Dose: 8 unit Documented By: KERVIN Methadone HCl (Methadone Hcl 20 Mg/2 Ml Oral.Conc) 140 mg PO DAILY [facility] Last Admin: 03/19/22 08:10 Dose: 140 mg Documented By: KERVIN Pharmacy Consult (Consult Rx Vancomycin Dosing) 1 each MISCELLANE DAILY PRN PRN Reason: Consult order Pharmacy Consult (Consult Rx Vancomycin Dosing) 1 each MISCELLANE DAILY PRN PRN Reason: Consult order Quetiapine Fumarate (Quetiapine Fumarate 100 Mg Tablet) 100 mg PO BID [facility] Last Admin: 03/19/22 08:08 Dose: 100 mg Documented By: KERVIN Sodium Chloride (0.9 % Sodium Chloride Flush 3 Ml Syringe) 3 ml IVFLUSH QSHIFT [facility] Last Admin: 03/19/22 08:09 Dose: 3 ml Documented By: KERVIN Labs CBC & Chem 7: 03/19/22 07:50 03/19/22 07:50 Labs: Laboratory Results - last 24 hr 03/18/22 03/18/22 03/18/22 11:04 15:28 19:58 MCV MCH MCHC RDW Plt Count MPV Absolute Nucleated RBC Nucleated RBC % (auto) Anion Gap Estim Creat Clear Calc Estimated GFR POC Glucose 242 H 235 H 205 H Fasting Glucose Calcium 03/19/22 03/19/22 03/19/22 07:35 07:50 07:50 MCV 88.3 MCH 29.4 MCHC 33.2 RDW 14.6 Plt Count 93 L MPV 10.3 Absolute Nucleated RBC 0.000 Nucleated RBC % (auto) 0.0 Anion Gap 17 Estim Creat Clear Calc 109.8 Estimated GFR > 60 POC Glucose 314 H Fasting Glucose 362 H* D Calcium 8.5 Microbiology Microbiology Results: Microbiology 03/16/22 06:00 Blood Culture - Preliminary Blood - Venous No growth after 48 hours. 03/16/22 06:00 Blood Culture - Preliminary Blood - Venous No growth after 48 hours. Assessment and Plan (1) Cellulitis: Status: Acute Plan 51M with pmh DM, PAD, opiate dependence, htn, hld, mood disorder, chornic hypoxic respiratory failure due to post covid syndrome, presented with right TMA site pain and running out of o2 right TMA cellulitis and ulcer due to PAD and DM vanco, ESR minimally elevated, doubt OM, c/w negative xray statin insulin, monitor poc likely doxy on discharge with wound care follow up rudi with mild hyperkalemia resolved, follow up repeat chronic hypoxic respiratory failure due to recent covid at baseline o2 obesity weight loss recommended hld statin htn clonidine mood disorder seroquel opiate dependence methadone dvt prophylaxis - lovenox full code reason for continued hospitalization:ongoing iv abx for cellulitis in patient at risk for decompensation due to DM and PAD. Quality Stroke Does the patient have a stroke diagnosis?: No VTE Prior VTE?: No VTE Risk Level:: Medical - moderate - high VTE Device Contraindication: Treatment Not Indicated VTE Drug Contraindication: N/A - Med Ordered
[2022-03-19] MEDS: vancomycin HCL 1,250 MG in 0.9 % Sodium Chloride 250 ML 166.66 MG IV (10:37)
[2022-03-19 11:00] VITALS: BP 115/67; PULSE 70; RESP 18; TEMP 36.2; O2SAT 99
[2022-03-19 11:31] LABS: Glucose, Whole Blood 264 mg/dL (60-115)
[2022-03-19 15:00] VITALS: BP 129/75; PULSE 81; RESP 18; TEMP 36; O2SAT 93
[2022-03-19 16:40] LABS: Glucose, Whole Blood 287 mg/dL (60-115)
[2022-03-19 19:38] VITALS: BP 129/72; PULSE 77; RESP 15; TEMP 36; O2SAT 99
[2022-03-19 20:30] LABS: Glucose, Whole Blood 293 mg/dL (60-115)
[2022-03-19] MEDS: Atorvastatin Calcium 40 MG TABLET PO (20:31)
[2022-03-19 20:43] LABS: Vancomycin Trough 19.6 mcg/mL (10.0-20.0)
--- NOTE | 2022-03-19 20:51 | HE.PHANOTE ---
Vancomycin dosing Addendum Patient level increase from 10.8 to 19.6 with an increase in dose on 03/18. Do to the large jump with stable renal function, will decrease dose back to vancomycin 1000 mg Q12H. If patient trough decrease dramatically in 24 hours will change patient to Q8h dosing instead. Next trough 03/20 @ 1999. Pablo WelchD
[2022-03-19] MEDS: vancomycin HCL 1,000 MG in 0.9 % Sodium Chloride 250 ML 270 MG IV (21:15)
[2022-03-19 22:41] VITALS: BP 137/77; PULSE 70; RESP 18; TEMP 36.2; O2SAT 94
[2022-03-20 03:00] VITALS: BP 133/78; PULSE 69; RESP 18; TEMP 36.1; O2SAT 97
[2022-03-20 06:12] LABS: Hemoglobin 11.5 g/dl (14.0-18.0); Mean Corpuscular HGB Conc 32.9 g/dl (31.0-36.0); Mean Corpuscular Volume 91.4 fL (80.0-98.0); Mean Platelet Volume 9.9 fL (9.4-12.4); Platelet Count 107 X10*3/uL (160-400); Red Blood Count 3.83 X10*6/uL (4.60-5.80); Red Cell Distribution Width 14.7 % (11.0-16.0); White Blood Count 3.7 X10*3/uL (4.8-10.8)
[2022-03-20 06:36] LABS: Anion Gap 17 (12-20); Blood Urea Nitrogen 15 mg/dL (9-16); Calcium 8.6 mg/dL (8.4-10.2); Carbon Dioxide 28 mmol/L (22-29); Chloride 96 mmol/L (96-108); Estimated Glomerular Filt Rate > 60; Glucose Fasting 367 mg/dL (60-99); Sodium 137 mmol/L (135-145)
[2022-03-20 07:00] VITALS: BP 123/59; PULSE 71; RESP 18; TEMP 36.8; O2SAT 96
[2022-03-20 07:34] LABS: Glucose, Whole Blood 355 mg/dL (60-115)
[2022-03-20] MEDS: Insulin Lispro 100 UNIT/ML 3 ML VIAL SUBCUT ×4 (07:50→19:48)
[2022-03-20] MEDS: 0.9 % Sodium Chloride Flush 3 ML SYRINGE IVFLUSH ×3 (07:51→21:57)
[2022-03-20] MEDS: Furosemide 40 MG TABLET PO ×2 (07:58→19:47)
[2022-03-20] MEDS: Insulin Glargine,Hum.rec.anlog 100 UNIT/ML 10 ML VIAL 90 UNIT SUBCUT (07:58)
[2022-03-20] MEDS: cloNIDine HCL 0.2 MG TABLET PO ×3 (07:59→19:47)
[2022-03-20] MEDS: Gabapentin 600 MG TABLET PO ×3 (07:59→19:48)
[2022-03-20] MEDS: methADONE HCl 20 MG/2 ML ORAL.CONC 140 MG PO (07:59)
[2022-03-20] MEDS: QUEtiapine Fumarate 100 MG TABLET PO ×2 (07:59→19:47)
[2022-03-20] MEDS: clonazePAM 1 MG TABLET PO (08:37)
--- NOTE | 2022-03-20 09:03 | P.PNIM_ITS ---
Subjective Subjective Date of Service: 03/20/22 Interval History: cc: right TMA site pain, ran out of home o2 interval history:right tma site pain Cardiovascular Cardiovascular: Reports no additional cardiovascular complaints Respiratory Respiratory: Reports no additional respiratory complaints Physical Exam Vital Signs: Vital Signs: Last Vital Signs Temp 98.2 F 03/20/22 07:00 Pulse 71 03/20/22 07:00 Resp 18 03/20/22 07:00 BP 123/59 L 03/20/22 07:00 Pulse Ox 96 03/20/22 07:00 O2 Del Method 03/20/22 07:00 O2 Flow Rate 2 03/20/22 07:00 BMI result Body Mass Index 32.0 General: AO X 3, no acute distress Resp: CTA bilateral, no accessory muscles used CVS: S1,S2,RRR GI: soft, non tender, non distended Neuro: motor grossly intact, alert Psych: appropriate affect, appropriate insight RLE tMA site improved erythema, shallow ulcers with some drainage Objective Data Active Medications Acetaminophen (Acetaminophen 325 Mg Tablet) 650 mg PO Q6H PRN PRN Reason: Pain, Mild (Pain Scale 1-3) Atorvastatin Calcium (Atorvastatin Calcium 40 Mg Tablet) 40 mg PO BEDTIME [facility] Last Admin: 03/19/22 20:31 Dose: 40 mg Documented By: NIKKIE Clonazepam (Clonazepam 1 Mg Tablet) 1 mg PO BID PRN PRN Reason: anxiety Last Admin: 03/20/22 08:37 Dose: 1 mg Documented By: SOWMYA Clonidine HCl (Clonidine Hcl 0.2 Mg Tablet) 0.2 mg PO TID [facility]; Protocol Last Admin: 03/20/22 07:59 Dose: 0.2 mg Documented By: SOWMYA Dextrose (Dextrose 50 % 25 Gm/50 Ml Syringe) 25 gm IVPUSH Q15M PRN; Protocol PRN Reason: per Hypoglycemia Standing Ord. Enoxaparin Sodium (Enoxaparin Sodium 40 Mg/0.4 Ml Syringe) 40 mg SUBCUT Q24H [facility] Last Admin: 03/19/22 16:47 Dose: Not Given Documented By: KERVIN Non-Admin Reason: Patient Refused Furosemide (Furosemide 40 Mg Tablet) 40 mg PO BID [facility]; Protocol Last Admin: 03/20/22 07:58 Dose: 40 mg Documented By: SOWMYA Gabapentin (Gabapentin 600 Mg Tablet) 600 mg PO TID [facility] Last Admin: 03/20/22 07:59 Dose: 600 mg Documented By: SOWMYA Glucose (Glucose Gel 15 Gm Gel..Gram.) 15 gm PO Q15M PRN; Protocol PRN Reason: per Hypoglycemia Standing Ord. Vancomycin HCl 1,000 mg/ (Sodium Chloride) 270 mls @ 270 mls/hr IV Q12H [facility] Last Infusion: 03/19/22 23:07 Dose: 0 mls/hr Documented By: NIKKIE Insulin Glargine (Insulin Glargine,Hum.Rec.Anlog 100 Unit/Ml 10 Ml Vial) 90 unit SUBCUT DAILY [facility] Last Admin: 03/20/22 07:58 Dose: 90 unit Documented By: SOWMYA Insulin Human Lispro (Insulin Lispro 100 Unit/Ml 3 Ml Vial) 0 unit SUBCUT QIDACHS [facility]; Protocol Last Admin: 03/20/22 07:50 Dose: 10 unit Documented By: SOWMYA Methadone HCl (Methadone Hcl 20 Mg/2 Ml Oral.Conc) 140 mg PO DAILY [facility] Last Admin: 03/20/22 07:59 Dose: 140 mg Documented By: SOWMYA Pharmacy Consult (Consult Rx Vancomycin Dosing) 1 each MISCELLANE DAILY PRN PRN Reason: Consult order Pharmacy Consult (Consult Rx Vancomycin Dosing) 1 each MISCELLANE DAILY PRN PRN Reason: Consult order Quetiapine Fumarate (Quetiapine Fumarate 100 Mg Tablet) 100 mg PO BID [facility] Last Admin: 03/20/22 07:59 Dose: 100 mg Documented By: SOWMYA Sodium Chloride (0.9 % Sodium Chloride Flush 3 Ml Syringe) 3 ml IVFLUSH QSHIFT [facility] Last Admin: 03/20/22 07:51 Dose: 3 ml Documented By: SOWMYA Labs CBC & Chem 7: 03/20/22 05:39 03/20/22 05:39 Labs: Laboratory Results - last 24 hr 03/19/22 03/19/22 03/19/22 11:07 15:17 20:00 MCV MCH MCHC RDW Plt Count MPV Absolute Nucleated RBC Nucleated RBC % (auto) Anion Gap Estim Creat Clear Calc Estimated GFR POC Glucose 264 H 287 H Fasting Glucose Calcium Vancomycin Trough 19.6 03/19/22 03/20/22 03/20/22 20:22 05:39 05:39 MCV 91.4 MCH 30.0 MCHC 32.9 RDW 14.7 Plt Count 107 L MPV 9.9 Absolute Nucleated RBC 0.000 Nucleated RBC % (auto) 0.0 Anion Gap 17 Estim Creat Clear Calc 106.0 Estimated GFR > 60 POC Glucose 293 H Fasting Glucose 367 H* Calcium 8.6 Vancomycin Trough 03/20/22 07:23 MCV MCH MCHC RDW Plt Count MPV Absolute Nucleated RBC Nucleated RBC % (auto) Anion Gap Estim Creat Clear Calc Estimated GFR POC Glucose 355 H* Fasting Glucose Calcium Vancomycin Trough Assessment and Plan (1) Cellulitis: Status: Acute Plan 51M with pmh DM, PAD, opiate dependence, htn, hld, mood disorder, chornic hypoxic respiratory failure due to post covid syndrome, presented with right TMA site pain and running out of o2 right TMA cellulitis and ulcer due to PAD and DM vanco, ESR minimally elevated, doubt OM, c/w negative xray, however, ongoing pain and erythema will request ID eval statin insulin, monitor poc rudi with mild hyperkalemia resolved chronic hypoxic respiratory failure due to recent covid at baseline o2 obesity weight loss recommended hld statin htn clonidine mood disorder seroquel opiate dependence methadone dvt prophylaxis - lovenox full code reason for continued hospitalization:ongoing iv abx for cellulitis in patient at risk for decompensation due to DM and PAD. Quality Stroke Does the patient have a stroke diagnosis?: No VTE Prior VTE?: No VTE Risk Level:: Medical - moderate - high VTE Device Contraindication: Treatment Not Indicated VTE Drug Contraindication: N/A - Med Ordered
[2022-03-20] MEDS: vancomycin HCL 1,000 MG in 0.9 % Sodium Chloride 250 ML 270 MG IV ×2 (10:04→21:59)
[2022-03-20 11:00] VITALS: BP 122/75; PULSE 69; RESP 18; TEMP 36.1; O2SAT 97
[2022-03-20 11:07] LABS: Glucose, Whole Blood 283 mg/dL (60-115)
--- NOTE | 2022-03-20 11:11 | MHC.RECOVSUP ---
Recovery Support note: This science writer met with patient to discuss methadone treatment. Patient was asleep when this science writer entered however awoke when his name was loudly spoken. Patient reports he is connected with a clinic in [place], likely [facility], and that he plans to return their for dosing. Patient reports it has been over a year since he was last there but states he has been in touch with them and is able to return. This science writer offered to refer patient to a local clinic however patient declined, stating he is currently staying in hotels and is often in [place]. Recovery Support Team available as needed.
[2022-03-20 15:00] VITALS: BP 120/65; PULSE 73; RESP 12; TEMP 36.4; O2SAT 99
[2022-03-20 16:20] LABS: Glucose, Whole Blood 298 mg/dL (60-115)
[2022-03-20] MEDS: Atorvastatin Calcium 40 MG TABLET PO (19:47)
[2022-03-20 20:09] LABS: Glucose, Whole Blood 316 mg/dL (60-115)
[2022-03-20 20:26] VITALS: BP 119/65; PULSE 79; RESP 16; TEMP 36.1; O2SAT 98
[2022-03-20 20:58] LABS: Vancomycin Trough 14.6 mcg/mL (10.0-20.0)
--- NOTE | 2022-03-20 21:08 | HE.PHANOTE ---
Vancomycin Dosing Level today is 14.6. Renal function is stable. Continue current regimen, vancomycn 1000 mg Q12H. Pharmacy to monitor renal function daily. Jelena Roe, PabloD
[2022-03-20 23:47] VITALS: BP 137/69; PULSE 71; RESP 18; TEMP 36; O2SAT 96
[2022-03-21] VITALS (7 sets, daily range): BP systolic 119–128; BP diastolic 65–73; PULSE 62–107; RESP 17–20; TEMP 36–37; O2SAT 84–99
[2022-03-21 06:59] LABS: Creatinine Clr Calc Pharmacy 119.5; Estimated Glomerular Filt Rate > 60
[2022-03-21 07:36] LABS: Glucose, Whole Blood 323 mg/dL (60-115)
[2022-03-21] MEDS: Insulin Lispro 100 UNIT/ML 3 ML VIAL SUBCUT ×4 (07:42→21:34)
[2022-03-21] MEDS: QUEtiapine Fumarate 100 MG TABLET PO ×2 (08:29→21:33)
[2022-03-21] MEDS: cloNIDine HCL 0.2 MG TABLET PO ×3 (08:29→21:33)
[2022-03-21] MEDS: Gabapentin 600 MG TABLET PO ×3 (08:29→21:33)
[2022-03-21] MEDS: Insulin Glargine,Hum.rec.anlog 100 UNIT/ML 10 ML VIAL 90 UNIT SUBCUT (08:29)
[2022-03-21] MEDS: 0.9 % Sodium Chloride Flush 3 ML SYRINGE IVFLUSH ×2 (08:30→15:12)
[2022-03-21] MEDS: Furosemide 40 MG TABLET PO ×2 (08:30→21:33)
[2022-03-21] MEDS: clonazePAM 1 MG TABLET PO (08:35)
[2022-03-21] MEDS: methADONE HCl 20 MG/2 ML ORAL.CONC 140 MG PO (08:38)
--- NOTE | 2022-03-21 08:57 | P.PNIM_ITS ---
Subjective Subjective Date of Service: 03/21/22 Interval History: cc: right TMA site pain, ran out of home o2 interval history:right tma site pain Cardiovascular Cardiovascular: Reports no additional cardiovascular complaints Respiratory Respiratory: Reports no additional respiratory complaints Physical Exam Vital Signs: Vital Signs: Last Vital Signs Temp 98.4 F 03/21/22 07:35 Pulse 69 03/21/22 07:35 Resp 19 03/21/22 07:35 BP 123/65 03/21/22 07:35 Pulse Ox 97 03/21/22 07:35 O2 Del Method 03/21/22 07:35 O2 Flow Rate 2.0 03/21/22 07:35 BMI result Body Mass Index 32.0 General: AO X 3, no acute distress Resp: CTA bilateral, no accessory muscles used CVS: S1,S2,RRR GI: soft, non tender, non distended Neuro: motor grossly intact, alert Psych: appropriate affect, appropriate insight RLE tMA site improved erythema, shallow ulcers with some drainage Objective Data Active Medications Acetaminophen (Acetaminophen 325 Mg Tablet) 650 mg PO Q6H PRN PRN Reason: Pain, Mild (Pain Scale 1-3) Atorvastatin Calcium (Atorvastatin Calcium 40 Mg Tablet) 40 mg PO BEDTIME [facility] Last Admin: 03/20/22 19:47 Dose: 40 mg Documented By: HUY Clonazepam (Clonazepam 1 Mg Tablet) 1 mg PO BID PRN PRN Reason: anxiety Last Admin: 03/20/22 08:37 Dose: 1 mg Documented By: SOWMYA Clonidine HCl (Clonidine Hcl 0.2 Mg Tablet) 0.2 mg PO TID [facility]; Protocol Last Admin: 03/21/22 08:29 Dose: 0.2 mg Documented By: SOWMYA Dextrose (Dextrose 50 % 25 Gm/50 Ml Syringe) 25 gm IVPUSH Q15M PRN; Protocol PRN Reason: per Hypoglycemia Standing Ord. Enoxaparin Sodium (Enoxaparin Sodium 40 Mg/0.4 Ml Syringe) 40 mg SUBCUT Q24H [facility] Last Admin: 03/20/22 15:21 Dose: Not Given Documented By: SOWMYA Non-Admin Reason: Patient Refused Furosemide (Furosemide 40 Mg Tablet) 40 mg PO BID [facility]; Protocol Last Admin: 03/21/22 08:30 Dose: 40 mg Documented By: SOWMYA Gabapentin (Gabapentin 600 Mg Tablet) 600 mg PO TID [facility] Last Admin: 03/21/22 08:29 Dose: 600 mg Documented By: SOWMYA Glucose (Glucose Gel 15 Gm Gel..Gram.) 15 gm PO Q15M PRN; Protocol PRN Reason: per Hypoglycemia Standing Ord. Vancomycin HCl 1,000 mg/ (Sodium Chloride) 270 mls @ 270 mls/hr IV Q12H [facility] Last Infusion: 03/20/22 23:23 Dose: 0 mls/hr Documented By: HUY Insulin Glargine (Insulin Glargine,Hum.Rec.Anlog 100 Unit/Ml 10 Ml Vial) 90 unit SUBCUT DAILY [facility] Last Admin: 03/21/22 08:29 Dose: 90 unit Documented By: SOWMYA Insulin Human Lispro (Insulin Lispro 100 Unit/Ml 3 Ml Vial) 0 unit SUBCUT QIDACHS [facility]; Protocol Last Admin: 03/21/22 07:42 Dose: 8 unit Documented By: SOWMYA Methadone HCl (Methadone Hcl 20 Mg/2 Ml Oral.Conc) 140 mg PO DAILY [facility] Last Admin: 03/21/22 08:38 Dose: 140 mg Documented By: SOWMYA Pharmacy Consult (Consult Rx Vancomycin Dosing) 1 each MISCELLANE DAILY PRN PRN Reason: Consult order Pharmacy Consult (Consult Rx Vancomycin Dosing) 1 each MISCELLANE DAILY PRN PRN Reason: Consult order Quetiapine Fumarate (Quetiapine Fumarate 100 Mg Tablet) 100 mg PO BID [facility] Last Admin: 03/21/22 08:29 Dose: 100 mg Documented By: SOWMYA Sodium Chloride (0.9 % Sodium Chloride Flush 3 Ml Syringe) 3 ml IVFLUSH QSHIFT [facility] Last Admin: 03/21/22 08:30 Dose: 3 ml Documented By: SOWMYA Labs CBC & Chem 7: 03/20/22 05:39 03/21/22 05:57 Labs: Laboratory Results - last 24 hr 03/20/22 03/20/22 03/20/22 10:59 16:02 19:19 Estim Creat Clear Calc Estimated GFR POC Glucose 283 H 298 H 316 H Vancomycin Trough 03/20/22 03/21/22 03/21/22 20:27 05:57 07:32 Estim Creat Clear Calc 119.5 Estimated GFR > 60 POC Glucose 323 H Vancomycin Trough 14.6 Microbiology Microbiology Results: Microbiology 03/16/22 06:00 Blood Culture - Final Blood - Venous No growth after 5 days. 03/16/22 06:00 Blood Culture - Final Blood - Venous No growth after 5 days. Assessment and Plan (1) Cellulitis: Status: Acute Plan 51M with pmh DM, PAD, opiate dependence, htn, hld, mood disorder, chornic h ypoxic respiratory failure due to post covid syndrome, presented with right TMA site pain and running out of o2 right TMA cellulitis and ulcer due to PAD and DM vanco, ESR minimally elevated, doubt OM, c/w negative xray, however, ongoing pain and erythema follow up ID statin insulin, monitor poc rudi with mild hyperkalemia resolved chronic hypoxic respiratory failure due to recent covid at baseline o2 obesity weight loss recommended hld statin htn clonidine mood disorder seroquel opiate dependence methadone dvt prophylaxis - lovenox full code reason for continued hospitalization:ongoing iv abx for cellulitis in patient at risk for decompensation due to DM and PAD. Quality Stroke Does the patient have a stroke diagnosis?: No VTE Prior VTE?: No VTE Risk Level:: Medical - moderate - high VTE Device Contraindication: Treatment Not Indicated VTE Drug Contraindication: N/A - Med Ordered
[2022-03-21] MEDS: vancomycin HCL 1,000 MG in 0.9 % Sodium Chloride 250 ML 270 MG IV ×2 (09:38→21:33)
[2022-03-21 11:28] LABS: Glucose, Whole Blood 291 mg/dL (60-115)
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
--- NOTE | 2022-03-21 14:26 | MHC.CM.PN ---
Patient is refusing discharging to hotel and refusing penit[facility]iary. Wants referrals to rehabs. MD made aware. Referrals placed.
--- NOTE | 2022-03-21 14:31 | MHC.RECOVRN ---
T/W met w/ pt, pt alert, sitting up, watching t.v. T/W and pt discussed MTD referral at discharge, pt requests [facility] in [place] for MTD upon d/c.
--- NOTE | 2022-03-21 15:29 | P.CNID_ITS ---
History of Present Illness Data of Consult Service Date: 03/21/22 Requesting physician: Espinoza Pa Primary Care Provider: Unknown Physician HPI Reason for consult: right TMA site plantar wound He presents with hypoxia and shortness of breath. He has chronic wounds after accident and now has diabetes. He has incidentally found right foot wound and appeared to have cellulitis on arrival but patient didnt notice. He has ESR unremarkable and not febrile and has no elevated WBC. He has been started on antibiotics. Review of Systems Review of Systems: Yes all other systems are reviewed and are negative PENDING SALE TO [facility] Past Medical History Medical History Compartment syndrome of left lower extremity Diabetes HTN (hypertension) Post-COVID chronic dyspnea Family History Family History Other No pertinent family history Surgical History Surgical History Status post transmetatarsal amputation of right foot Social History Social History Household Members: None Housing: Other Housing Other:: reports no place to live Do you presently have visiting nurse or other home services: No Patient Tobacco Use Status: Never used Tobacco e-Cigarette/Vaping Use: Never Used Use of substances other than those prescribed or required for medical reasons: No Currently Displaying Signs/Symptoms of Drug Intoxication Withdrawal: No Have you been hit, kicked, punched, or otherwise hurt by someone within the past year? If so, by whom?: No Do you feel safe in your current relationship?: No Current Relationship Is there a partner from a previous relationship who is making you feel unsafe now?: No Are you made to feel afraid or neglected: No Advance Directives: No Advance Directives Information Provided: No Do you have thoughts of harming others: None Do you have a plan to hurt others: No Plan Recently lost weight without trying: No Nutrition Risks: No Nutritional Risk service: No Current occupational status: disabled Meds Allergies Allergy/AdvReac Type Severity Reaction Status Date / Time aspirin [ASA] Allergy Unknown HIVES Unverified 02/20/20 16:18 naproxen [From NAPROSYN] Allergy Unknown HIVES Unverified 02/20/20 16:18 NSAIDS (Non-Steroidal Allergy Unknown HIVES Unverified 02/20/20 16:18 Anti-Inflamma [NSAIDS (NON-STEROIDAL ANTI-INFLAMMA] Penicillins [PENICILLINS] Allergy Unknown HIVES Unverified 02/20/20 16:18 From COMPAZINE Allergy Unknown HIVES Uncoded 02/20/20 16:18 Active Medications: Current Medications Acetaminophen (Acetaminophen 325 Mg Tablet) 650 mg PO Q6H PRN PRN Reason: Pain, Mild (Pain Scale 1-3) Atorvastatin Calcium (Atorvastatin Calcium 40 Mg Tablet) 40 mg PO BEDTIME [facility] Last Admin: 03/20/22 19:47 Dose: 40 mg Clonidine HCl (Clonidine Hcl 0.2 Mg Tablet) 0.2 mg PO TID RICHARD; Protocol Last Admin: 03/21/22 15:11 Dose: 0.2 mg Dextrose (Dextrose 50 % 25 Gm/50 Ml Syringe) 25 gm IVPUSH Q15M PRN; Protocol PRN Reason: per Hypoglycemia Standing Ord. Enoxaparin Sodium (Enoxaparin Sodium 40 Mg/0.4 Ml Syringe) 40 mg SUBCUT Q24H [facility] Last Admin: 03/21/22 15:12 Dose: Not Given Furosemide (Furosemide 40 Mg Tablet) 40 mg PO BID RICHARD; Protocol Last Admin: 03/21/22 08:30 Dose: 40 mg Gabapentin (Gabapentin 600 Mg Tablet) 600 mg PO TID [facility] Last Admin: 03/21/22 15:11 Dose: 600 mg Glucose (Glucose Gel 15 Gm Gel..Gram.) 15 gm PO Q15M PRN; Protocol PRN Reason: per Hypoglycemia Standing Ord. Vancomycin HCl 1,000 mg/ (Sodium Chloride) 270 mls @ 270 mls/hr IV Q12H [facility] Last Infusion: 03/21/22 11:58 Dose: Infused Insulin Glargine (Insulin Glargine,Hum.Rec.Anlog 100 Unit/Ml 10 Ml Vial) 90 unit SUBCUT DAILY [facility] Last Admin: 03/21/22 08:29 Dose: 90 unit Insulin Human Lispro (Insulin Lispro 100 Unit/Ml 3 Ml Vial) 0 unit SUBCUT QIDACHS [facility]; Protocol Last Admin: 03/21/22 11:50 Dose: 6 unit Methadone HCl (Methadone Hcl 20 Mg/2 Ml Oral.Conc) 140 mg PO DAILY [facility] Last Admin: 03/21/22 08:38 Dose: 140 mg Pharmacy Consult (Consult Rx Vancomycin Dosing) 1 each MISCELLANE DAILY PRN PRN Reason: Consult order Pharmacy Consult (Consult Rx Vancomycin Dosing) 1 each MISCELLANE DAILY PRN PRN Reason: Consult order Quetiapine Fumarate (Quetiapine Fumarate 100 Mg Tablet) 100 mg PO BID [facility] Last Admin: 03/21/22 08:29 Dose: 100 mg Sodium Chloride (0.9 % Sodium Chloride Flush 3 Ml Syringe) 3 ml IVFLUSH QSHIFT [facility] Last Admin: 03/21/22 15:12 Dose: 3 ml Home Medications Medication Instructions Recorded Confirmed Last Taken Type atorvastatin 40 mg tablet 1 tab PO BEDTIME 03/16/22 03/16/22 Unknown History clonazepam 1 mg tablet 1 tab PO BID PRN anxiety 03/16/22 03/16/22 Unknown History clonidine HCl 0.2 mg tablet 1 tab PO TID 03/16/22 03/16/22 Unknown History furosemide 40 mg tablet 1 tab PO BID 03/16/22 03/16/22 Unknown History gabapentin 600 mg tablet 1 tab PO TID 03/16/22 03/16/22 Unknown History insulin glargine 100 unit/mL (3 120 unit subcut DAILY 03/16/22 03/16/22 Unknown History mL) subcutaneous pen (Lantus Solostar U-100 Insulin) insulin lispro 100 unit/mL 15 unit subcut TID 03/16/22 03/16/22 Unknown History subcutaneous pen quetiapine 100 mg tablet 1 tab PO BID 03/16/22 03/16/22 Unknown History Physical Exam Vital Signs: Vital Signs: Last Vital Signs Temp 98.2 F 03/21/22 11:24 Pulse 65 03/21/22 11:24 Resp 20 03/21/22 11:24 BP 119/69 03/21/22 11:24 Pulse Ox 96 03/21/22 11:24 O2 Del Method 03/21/22 11:24 O2 Flow Rate 2.0 03/21/22 11:24 BMI result Body Mass Index 32.0 Const: General: cooperative HEENT: Head: Yes normal to inspection Face and sinus: Yes normal facial exam Mouth: Normal oral and palatal mucosa present Teeth and gingiva: dentition normal Eyes: General: appearance normal, both eyes and all related structures Pupils: Equal, round and reactive pupils present Resp: Effort & Inspection: normal respiratory effort Cardio: Rate: regular rate Rhythm: regular rhythm GI: Palpation (GI): Soft to palpation and nontender : General: Yes no CVA tenderness Back/Spine/Pelvis: Back: no CVA tenderness Skin: General skin exam: no rashes or lesions noted Neuro: General: moves all extremities Cranial nerves: Yes Equal, round and reactive pupils present Extrem: Other: right plantar foot wound appears old (3 x 5 cm) and is not actively cellulitic at all General: Yes normal to inspection Psych: Appearance: grossly normal Results Labs CBC & Chem 7: 03/20/22 05:39 03/21/22 05:57 Labs: BMP 03/21/22 05:57 Creatinine 1.02 Microbiology Microbiology Results: Microbiology 03/16/22 06:00 Blood - Venous Blood Culture - Final No growth after 5 days. 03/16/22 06:00 Blood - Venous Blood Culture - Final No growth after 5 days. Assessment and Plan (1) Diabetic ulcer of right foot: Status: Acute Area looks chronic and has no cellulitis,purulence,elevated ESR,WBC or fever. It is probably chronically nonhealing (2) Post-COVID chronic dyspnea: Status: Acute Plan Finish Doxycycline cover staph and strep for three weeks. Would follow Wound Care If worsens check for osteomyelitis with CT or MRI but this could be chronic as well and irregardless doesnt appear acute or in need of mcc IV antibiotics at this time.
[2022-03-21 16:17] LABS: Glucose, Whole Blood 370 mg/dL (60-115)
[2022-03-21 21:23] LABS: Glucose, Whole Blood 355 mg/dL (60-115)
[2022-03-21] MEDS: Atorvastatin Calcium 40 MG TABLET PO (21:33)
[2022-03-22 04:00] VITALS: BP 115/55; PULSE 75; RESP 17; TEMP 36.3; O2SAT 99
[2022-03-22 07:20] VITALS: BP 115/60; PULSE 76; RESP 20; TEMP 36.2; O2SAT 96
[2022-03-22 07:41] LABS: Glucose, Whole Blood 303 mg/dL (60-115)
[2022-03-22] MEDS: Insulin Lispro 100 UNIT/ML 3 ML VIAL SUBCUT (07:49)
[2022-03-22] MEDS: Furosemide 40 MG TABLET PO (07:50)
[2022-03-22] MEDS: methADONE HCl 20 MG/2 ML ORAL.CONC 140 MG PO (07:51)
[2022-03-22] MEDS: clonazePAM 1 MG TABLET PO (07:51)
[2022-03-22] MEDS: QUEtiapine Fumarate 100 MG TABLET PO (07:51)
[2022-03-22] MEDS: Gabapentin 600 MG TABLET PO (07:51)
[2022-03-22] MEDS: cloNIDine HCL 0.2 MG TABLET PO (07:51)
[2022-03-22] MEDS: Insulin Glargine,Hum.rec.anlog 100 UNIT/ML 10 ML VIAL 90 UNIT SUBCUT (07:53)
--- NOTE | 2022-03-22 09:14 | MHC.CM.PN ---
CASE CASE MANAGEMENT MET WITH PATIENT TO DISCUSS DC PLAN. PATIENT STATES THAT HE IS GOING TO STAY WITH A FRIEND AND HE NEEDS 4 BUS PASSES. PASSES GIVEN AND RN MADE AWARE. WHEN ASKED IF PATIENT HAS DISCUSSED HIS PLAN WITH RESPIRATORY THERAPIST, HE DENIES. WHEN ASKED IF HE WOULD LIKE TO SPEAK WITH R.T. HE DENIES. PATIENT STATES I WILL JUST CALL THEM BECAUSE I AM NOT REALLY SURE WHERE I WILL END UP PATIENT MADE AWARE OF IMPORTANCE OF ADEQUATE O2 TO MAINTAIN HEALTH.
== END 2022-03-22 11:52 | disposition home or self-care (01) | DRG 383 ==
LOC: HO.ED 07:58 → HO.EDOVER 12:16 → HO.S3 18:35
PROVIDERS: Family Medicine; Admitting Provider Physician Assistant; Emergency Provider Internal Medicine; Visit Provider Internal Medicine
DX: L03.115 Cellulitis of right lower limb (principal); J96.21 Acute and chronic respiratory failure with hypoxia; N17.9 Acute kidney failure, unspecified; L97.519 Non-pressure chronic ulcer of other part of right foot with unspecified severity; U09.9 Post COVID-19 condition, unspecified; E11.51 Type 2 diabetes mellitus with diabetic peripheral angiopathy without gangrene; E11.621 Type 2 diabetes mellitus with foot ulcer; E86.0 Dehydration; E87.5 Hyperkalemia; E78.5 Hyperlipidemia, unspecified; F11.20 Opioid dependence, uncomplicated; E66.9 Obesity, unspecified; F41.9 Anxiety disorder, unspecified; Z68.32 Body mass index [BMI] 32.0-32.9, adult; Z99.81 Dependence on supplemental oxygen; Z20.822 Contact with and (suspected) exposure to COVID-19; Z59.02 Unsheltered homelessness; Z91.199 Patient's noncompliance with other medical treatment and regimen due to unspecified reason; Z88.0 Allergy status to penicillin; Z88.6 Allergy status to analgesic agent; Z88.8 Allergy status to other drugs, medicaments and biological substances; Z79.4 Long term (current) use of insulin; Z79.899 Other long term (current) drug therapy
CPT/HCPCS: 36415; 73620; 80048; 80053; 80202; 82565; 82803; 82947; 83036; 83605; 83615; 83735; 85025; 85027; 85652; 87040; 87635; 99285; J0610; J0692; J3370

== ENCOUNTER 2022-04-25 16:11 | Inpatient (IN) | payer MEDICAID, SELFPAY ==
--- NOTE | ~2022-04-25 | XR_ITS ---
EXAMINATION: CHEST RADIOGRAPH, BILATERAL TIB-FIB, BILATERAL FEET CLINICAL INFORMATION: Low O2 saturation and bilateral lower extremity pain COMPARISON: Chest radiograph 02/09/2020, CT exam both feet 12/15/2019, left and right foot radiographs 11/01/2019 TECHNIQUE: Single view chest, 2 views each tib-fib, 4 views left foot, 3 views right FINDINGS: Chest: Lungs are hypoinflated. Heart size normal. Some chronic reticular markings are present in the lungs, especially in the right upper lobe, unchanged from prior. No infiltrates, effusions or lung masses are seen. Left tib-fib and left foot: The tibia and fibula are unremarkable. Postop changes are seen in the foot with deformities with a cyst groove through the calcaneus as well as talus and is stable in the first metatarsal. Again seen is partial amputation of the distal aspects of the fourth and fifth metatarsals. Degenerative changes are present in the metatarsal tarsal joints. No acute bony destructive lesion or fracture is seen. Right tib-fib and right foot: The tibia and fibula are unremarkable. There is transmetatarsal amputation with most of the forefoot removed with only the bases of the metatarsals remaining. Surgical clips are present. Soft tissue swelling is seen. No bony destruction is seen to suggest osteomyelitis. No acute fractures. When comparison is made to 11/01/2019 study there's been no significant interval change. XR/XR chest 1V IMPRESSION: 1. Chronic stable pulmonary changes as described above. No acute intrathoracic disease. 2. Chronic deformities and postsurgical changes both feet. No acute finding
--- NOTE | ~2022-04-25 | XR_ITS ---
EXAMINATION: CHEST RADIOGRAPH, BILATERAL TIB-FIB, BILATERAL FEET CLINICAL INFORMATION: Low O2 saturation and bilateral lower extremity pain COMPARISON: Chest radiograph 02/09/2020, CT exam both feet 12/15/2019, left and right foot radiographs 11/01/2019 TECHNIQUE: Single view chest, 2 views each tib-fib, 4 views left foot, 3 views right FINDINGS: Chest: Lungs are hypoinflated. Heart size normal. Some chronic reticular markings are present in the lungs, especially in the right upper lobe, unchanged from prior. No infiltrates, effusions or lung masses are seen. Left tib-fib and left foot: The tibia and fibula are unremarkable. Postop changes are seen in the foot with deformities with a cyst groove through the calcaneus as well as talus and is stable in the first metatarsal. Again seen is partial amputation of the distal aspects of the fourth and fifth metatarsals. Degenerative changes are present in the metatarsal tarsal joints. No acute bony destructive lesion or fracture is seen. Right tib-fib and right foot: The tibia and fibula are unremarkable. There is transmetatarsal amputation with most of the forefoot removed with only the bases of the metatarsals remaining. Surgical clips are present. Soft tissue swelling is seen. No bony destruction is seen to suggest osteomyelitis. No acute fractures. When comparison is made to 11/01/2019 study there's been no significant interval change. XR/XR foot LT min 3V IMPRESSION: 1. Chronic stable pulmonary changes as described above. No acute intrathoracic disease. 2. Chronic deformities and postsurgical changes both feet. No acute finding
--- NOTE | ~2022-04-25 | XR_ITS ---
EXAMINATION: CHEST RADIOGRAPH, BILATERAL TIB-FIB, BILATERAL FEET CLINICAL INFORMATION: Low O2 saturation and bilateral lower extremity pain COMPARISON: Chest radiograph 02/09/2020, CT exam both feet 12/15/2019, left and right foot radiographs 11/01/2019 TECHNIQUE: Single view chest, 2 views each tib-fib, 4 views left foot, 3 views right FINDINGS: Chest: Lungs are hypoinflated. Heart size normal. Some chronic reticular markings are present in the lungs, especially in the right upper lobe, unchanged from prior. No infiltrates, effusions or lung masses are seen. Left tib-fib and left foot: The tibia and fibula are unremarkable. Postop changes are seen in the foot with deformities with a cyst groove through the calcaneus as well as talus and is stable in the first metatarsal. Again seen is partial amputation of the distal aspects of the fourth and fifth metatarsals. Degenerative changes are present in the metatarsal tarsal joints. No acute bony destructive lesion or fracture is seen. Right tib-fib and right foot: The tibia and fibula are unremarkable. There is transmetatarsal amputation with most of the forefoot removed with only the bases of the metatarsals remaining. Surgical clips are present. Soft tissue swelling is seen. No bony destruction is seen to suggest osteomyelitis. No acute fractures. When comparison is made to 11/01/2019 study there's been no significant interval change. XR/XR tibia fibula RT 2V IMPRESSION: 1. Chronic stable pulmonary changes as described above. No acute intrathoracic disease. 2. Chronic deformities and postsurgical changes both feet. No acute finding
--- NOTE | ~2022-04-25 | XR_ITS ---
EXAMINATION: CHEST RADIOGRAPH, BILATERAL TIB-FIB, BILATERAL FEET CLINICAL INFORMATION: Low O2 saturation and bilateral lower extremity pain COMPARISON: Chest radiograph 02/09/2020, CT exam both feet 12/15/2019, left and right foot radiographs 11/01/2019 TECHNIQUE: Single view chest, 2 views each tib-fib, 4 views left foot, 3 views right FINDINGS: Chest: Lungs are hypoinflated. Heart size normal. Some chronic reticular markings are present in the lungs, especially in the right upper lobe, unchanged from prior. No infiltrates, effusions or lung masses are seen. Left tib-fib and left foot: The tibia and fibula are unremarkable. Postop changes are seen in the foot with deformities with a cyst groove through the calcaneus as well as talus and is stable in the first metatarsal. Again seen is partial amputation of the distal aspects of the fourth and fifth metatarsals. Degenerative changes are present in the metatarsal tarsal joints. No acute bony destructive lesion or fracture is seen. Right tib-fib and right foot: The tibia and fibula are unremarkable. There is transmetatarsal amputation with most of the forefoot removed with only the bases of the metatarsals remaining. Surgical clips are present. Soft tissue swelling is seen. No bony destruction is seen to suggest osteomyelitis. No acute fractures. When comparison is made to 11/01/2019 study there's been no significant interval change. XR/XR foot RT min 3V IMPRESSION: 1. Chronic stable pulmonary changes as described above. No acute intrathoracic disease. 2. Chronic deformities and postsurgical changes both feet. No acute finding
--- NOTE | ~2022-04-25 | NM_ITS ---
EXAMINATION: THREE-PHASE BONE SCAN CLINICAL INFORMATION: Question osteomyelitis in both feet. COMPARISON: None TECHNIQUE: Following intravenous administration of 44 mCi of 99m Tc MDP, three-phase bone scan of both feet was obtained. FINDINGS: On first phase of bone scan there is mild increased activity seen mild increase activity in the left first and second digits and right right stump or lying the fourth and fifth digits. Once second phase of bone scan there is increased blood pool activity seen in bilateral distal foot. On third phase bone scan there is focal increased activities along the base of the fourth and fifth digits. And minimal activity at the ball of the first digit, nonspecific. On left foot x-ray there appears to be fusion between the base of the fourth and fifth digit and the adjacent distal tarsal bone which could explain moderate focal activity in bone scan. There is no abnormal activity seen within the right distal amputated foot. There is nonspecific mild increase activity in the left patella in the left medial knee likely related to degenerative changes. NM/NM bone 3 phase IMPRESSION: Focal increased activity left foot, base of fourth and fifth digits. On left foot x-ray there appears to be fusion between the the base of fourth digit and tarsal bone with mild degenerative arthritic changes likely cause for increased activity. No abnormal activity seen in the amputated right foot to suspect any osteomyelitis. Mild increased activity in both feet on the first and second phase of bone scan likely related to cellulitis or hyperemia.
--- NOTE | ~2022-04-25 | XR_ITS ---
EXAMINATION: CHEST RADIOGRAPH, BILATERAL TIB-FIB, BILATERAL FEET CLINICAL INFORMATION: Low O2 saturation and bilateral lower extremity pain COMPARISON: Chest radiograph 02/09/2020, CT exam both feet 12/15/2019, left and right foot radiographs 11/01/2019 TECHNIQUE: Single view chest, 2 views each tib-fib, 4 views left foot, 3 views right FINDINGS: Chest: Lungs are hypoinflated. Heart size normal. Some chronic reticular markings are present in the lungs, especially in the right upper lobe, unchanged from prior. No infiltrates, effusions or lung masses are seen. Left tib-fib and left foot: The tibia and fibula are unremarkable. Postop changes are seen in the foot with deformities with a cyst groove through the calcaneus as well as talus and is stable in the first metatarsal. Again seen is partial amputation of the distal aspects of the fourth and fifth metatarsals. Degenerative changes are present in the metatarsal tarsal joints. No acute bony destructive lesion or fracture is seen. Right tib-fib and right foot: The tibia and fibula are unremarkable. There is transmetatarsal amputation with most of the forefoot removed with only the bases of the metatarsals remaining. Surgical clips are present. Soft tissue swelling is seen. No bony destruction is seen to suggest osteomyelitis. No acute fractures. When comparison is made to 11/01/2019 study there's been no significant interval change. XR/XR tibia fibula LT 2V IMPRESSION: 1. Chronic stable pulmonary changes as described above. No acute intrathoracic disease. 2. Chronic deformities and postsurgical changes both feet. No acute finding
[2022-04-25 16:25] VITALS: BP 132/74; PULSE 108; RESP 20; TEMP 36.8; O2SAT 93; BMI 35.6
--- NOTE | 2022-04-25 16:33 | ED.EXTPRO ---
HPI - Extremity Problem General Chief complaint: Dyspnea <Mac Maciel DO - Last Filed: 04/25/22 16:37> Stated complaint: mahesh feet swelling ,sob <Mac Maciel DO - Last Filed: 04/25/22 16:37> Time Seen by Provider: 04/25/22 17:31 <Mac Maciel DO - Last Filed: 04/25/22 16:37> Source: patient <Filiberto Nesbitt MD - Last Filed: 04/25/22 23:17> Mode of arrival: EMS <Filiberto Nesbitt MD - Last Filed: 04/25/22 23:17> Limitations: no limitations <Filiberto Nesbitt MD - Last Filed: 04/25/22 23:17> History of Present Illness HPI Narrative: Patient with history of diabetes type 2 insulin dependent, peripheral arterial disease status post right transmetatarsal amputation, chronic wounds bilateral, polysubstance abuse, hypertension, HLD, anxiety, chronic respiratory a proxy of following COVID-19 on 2 L oxygen 26/12 comes here for worsening of the wound on the top of left foot pain Patient was just admitted and discharged on 03/21 for a right amputated metatarsal foot ulcer was given antibiotics patient is still taking doxycycline patient says was had a small wound on the top of the left foot when he was admitted which got worse in last 3 days it just opened up no fever no chills patient unable to follow up with wound clinic since discharge on 03/21 <Filiberto Nesbitt MD - Last Filed: 04/25/22 23:17> Related Data Home medications: Home Medications Medication Instructions Recorded Confirmed atorvastatin 40 mg tablet 1 tab PO BEDTIME 03/16/22 04/25/22 clonazepam 1 mg tablet 1 tab PO BID PRN anxiety 03/16/22 04/25/22 clonidine HCl 0.2 mg tablet 1 tab PO TID 03/16/22 04/25/22 furosemide 40 mg tablet 1 tab PO BID 03/16/22 04/25/22 gabapentin 600 mg tablet 1 tab PO TID 03/16/22 04/25/22 insulin glargine 100 unit/mL (3 120 unit subcut BEDTIME 03/16/22 04/25/22 mL) subcutaneous pen (Lantus Solostar U-100 Insulin) insulin lispro 100 unit/mL 15 unit subcut TID 03/16/22 04/25/22 subcutaneous pen quetiapine 100 mg tablet 1 tab PO BID 03/16/22 04/25/22 methadone 10 mg/mL oral 140 mg PO DAILY 04/25/22 concentrate (Methadone Intensol) Previous Rx's Medication Instructions Recorded doxycycline hyclate 100 mg tablet 1 tab PO BID #62 tabs 03/22/22 <Mac Maciel DO - Last Filed: 04/25/22 16:37> Allergies/Adverse reactions: Allergies Allergy/AdvReac Type Severity Reaction Status Date / Time prochlorperazine Allergy Intermediate Hives Verified 03/22/22 10:13 [From Compazine] aspirin [ASA] Allergy Unknown HIVES Unverified 02/20/20 16:18 naproxen [From NAPROSYN] Allergy Unknown HIVES Unverified 02/20/20 16:18 NSAIDS (Non-Steroidal Allergy Unknown HIVES Unverified 02/20/20 16:18 Anti-Inflamma [NSAIDS (NON-STEROIDAL ANTI-INFLAMMA] Penicillins [PENICILLINS] Allergy Unknown HIVES Unverified 02/20/20 16:18 <Mac Maciel DO - Last Filed: 04/25/22 16:37> Review of Systems Review of Systems: Yes all other systems are reviewed and are negative <Filiberto Nesbitt MD - Last Filed: 04/25/22 23:17> [facility] Past Medical History Medical History: Medical History Compartment syndrome of left lower extremity Diabetes HTN (hypertension) Post-COVID chronic dyspnea <Mac Maciel DO - Last Filed: 04/25/22 16:37> Surgical History: Surgical History Status post transmetatarsal amputation of right foot <DO Haven Gagnon Last Filed: 04/25/22 16:37> Family History Family History: Family History Other No pertinent family history <DO Haven Gagnon Last Filed: 04/25/22 16:37> Social History Social History: Social History Household Members: None Housing: Apartment Housing Other:: reports no place to live Do you presently have visiting nurse or other home services: No Patient Tobacco Use Status: Never used Tobacco e-Cigarette/Vaping Use: Never Used Use of substances other than those prescribed or required for medical reasons: No Currently Displaying Signs/Symptoms of Drug Intoxication Withdrawal: No Have you been hit, kicked, punched, or otherwise hurt by someone within the past year? If so, by whom?: No Do you feel safe in your current relationship?: Yes Is there a partner from a previous relationship who is making you feel unsafe now?: No Are you made to feel afraid or neglected: No Advance Directives: No Advance Directives Information Provided: No Do you have thoughts of harming others: None Do you have a plan to hurt others: No Plan Recently lost weight without trying: No Nutrition Risks: No Nutritional Risk service: No Current occupational status: disabled <Mac Maciel DO - Last Filed: 04/25/22 16:37> Physical Exam Vital Signs: Vital Signs: Last Vital Signs Temp 98.4 F 04/25/22 20:00 Pulse 98 04/25/22 20:00 Resp 16 04/25/22 20:00 BP 144/105 H 04/25/22 20:00 Pulse Ox 97 04/25/22 20:00 O2 Del Method 04/25/22 20:00 O2 Flow Rate 2 04/25/22 20:00 BMI result Body Mass Index 36.0 <Mac Maciel DO - Last Filed: 04/25/22 16:37> Vital Signs: Last Vital Signs Temp 98.4 F 04/25/22 20:00 Pulse 98 04/25/22 20:00 Resp 16 04/25/22 20:00 BP 144/105 H 04/25/22 20:00 Pulse Ox 97 04/25/22 20:00 O2 Del Method 04/25/22 20:00 O2 Flow Rate 2 04/25/22 20:00 BMI result Body Mass Index 36.0 <Filiberto Nesbitt MD - Last Filed: 04/25/22 23:17> Appearance: Alert. Oriented X3. No acute distress. Eyes: PERRLA, No Nystagmus ENT: Pharynx normal. Oral Mucosa moist Neck: Normal inspection. Neck supple. CVS: Normal heart rate and rhythm. Pulses normal. Respiratory: No respiratory distress. Equal air entry bilateral, no wheezing/rales/rhonchi Abdomen: Soft and nontender. Bowel sounds are present, no mass palpable, no CVA tenderness Skin: Skin warm and dry. Normal skin color. Normal skin turgor. Picture of the left foot wound attached open healing wound on the right amputated foot Extremities: 2+ lower extremity edema. No calf tenderness a right metatarsal amputation Neuro: Oriented X 3. No motor deficit. <Filiberto Nesbitt MD - Last Filed: 04/25/22 23:17> Extrem: Other: <Filiberto Nesbitt MD - Last Filed: 04/25/22 23:17> Course Course Course Narrative: Seen in triage limited to rapid medical exam. Patient here with multiple complaints. History of IVDU he states he was admitted at [facility] and signed out of medical advice yesterday. He states he still has foot pain and swelling he is unable to tell me why he was admitted or why he left against medical advice. He denies any falls or injuries. No fevers or chills just complaining of bilateral foot pain. I was unable to visualize in triage. Concerning story for osteomyletis leaving AMA and medical noncompliance. I will give the check labs and get XR's.I will have the patient seen by another provider for labs XR's diagnosis and disposition <Mac Maciel DO - Last Filed: 04/25/22 16:37> Medications Administered Generic Name Dose Route Start Last Admin Trade Name Freq PRN Reason Stop Dose Admin Enoxaparin Sodium 40 mg 04/25/22 21:30 04/25/22 21:41 Enoxaparin Sodium 40 Mg/0.4 Ml Syringe SUBCUT Not Given Q24H RICHARD Sodium Chloride 3 ml 04/26/22 00:00 04/25/22 22:52 0.9 % Sodium Chloride Flush 3 Ml Syringe IVFLUSH 3 ml QSHIFT RICHARD Administration Discontinued Medications Generic Name Dose Route Start Last Admin Trade Name Freq PRN Reason Stop Dose Admin Sodium Chloride 1,000 mls @ 999 mls/hr 04/25/22 16:45 04/25/22 20:39 Ns IV 04/25/22 17:45 Infused .Q1H1M RICHARD Infusion Cefepime HCl 1 gm/ Sodium 50 mls @ 100 mls/hr 04/25/22 17:50 04/25/22 19:41 Chloride IV 04/25/22 18:19 Infused ONCE ONE Infusion Vancomycin HCl 2,000 mg in 520 mls @ 260 mls/hr 04/25/22 21:00 04/25/22 22:52 Vancomycin/Ns IV 04/25/22 22:59 Infused ONCE ONE Infusion Vancomycin HCl 1,500 mg/ 500 mls @ 333.333 mls/hr 04/25/22 21:30 04/25/22 21:38 Sodium Chloride IV Not Given Q8H RICHARD <Mac Maciel DO - Last Filed: 04/25/22 16:37> Medications Administered Generic Name Dose Route Start Last Admin Trade Name Freq PRN Reason Stop Dose Admin Enoxaparin Sodium 40 mg 04/25/22 21:30 04/25/22 21:41 Enoxaparin Sodium 40 Mg/0.4 Ml Syringe SUBCUT Not Given Q24H RICHARD Sodium Chloride 3 ml 04/26/22 00:00 04/25/22 22:52 0.9 % Sodium Chloride Flush 3 Ml Syringe IVFLUSH 3 ml QSHIFT RICHARD Administration Discontinued Medications Generic Name Dose Route Start Last Admin Trade Name Freq PRN Reason Stop Dose Admin Sodium Chloride 1,000 mls @ 999 mls/hr 04/25/22 16:45 04/25/22 20:39 Ns IV 04/25/22 17:45 Infused .Q1H1M RICHARD Infusion Cefepime HCl 1 gm/ Sodium 50 mls @ 100 mls/hr 04/25/22 17:50 04/25/22 19:41 Chloride IV 04/25/22 18:19 Infused ONCE ONE Infusion Vancomycin HCl 2,000 mg in 520 mls @ 260 mls/hr 04/25/22 21:00 04/25/22 22:52 Vancomycin/Ns IV 04/25/22 22:59 Infused ONCE ONE Infusion Vancomycin HCl 1,500 mg/ 500 mls @ 333.333 mls/hr 04/25/22 21:30 04/25/22 21:38 Sodium Chloride IV Not Given Q8H RICHARD <Filiberto Nesbitt MD - Last Filed: 11/21/22 23:17> MDM - Extremity (Nontraumatic) MDM Narrative Medical decision making narrative: Patient with significant wound on left dorsum of the foot clinically osteomyelitis will start on vanco and Zosyn admit for further management <Filiberto Nesbitt MD - Last Filed: 04/25/22 23:17> Lab Data Attestation: I reviewed the patient's lab results. <Filiberto Nesbitt MD - Last Filed: 04/25/22 23:17> Result diagrams: : 04/25/22 18:58 04/25/22 18:58 <Mac Maciel DO - Last Filed: 04/25/22 16:37> Labs: Lab Results 04/25/22 04/25/22 04/25/22 Range/Units 18:58 18:58 18:58 WBC 5.2 (4.8-10.8) X10*3/uL RBC 3.46 L (4.60-5.80) X10*6/uL Hgb 9.5 L (14.0-18.0) g/dl Hct 29.5 L (42.0-52.0) % MCV 85.3 (80.0-98.0) fL MCH 27.5 (27.0-33.0) pg MCHC 32.2 (31.0-36.0) g/dl RDW 15.3 (11.0-16.0) % Plt Count 128 L (160-400) X10*3/uL MPV 9.8 (9.4-12.4) fL Immature Gran % (Auto) 0.4 (0.0-0.4) % Neut % (Auto) 67.8 (45-73) % Lymph % (Auto) 21.6 (20-40) % Brewster % (Auto) 9.0 (2-11) % Eos % (Auto) 1.0 (0-4) % Baso % (Auto) 0.2 (0-2) % Lymph # (Auto) 1.1 L (1.2-4.9) X10*3/uL Brewster # (Auto) 0.5 (0.1-1.2) X10*3/uL Eos # (Auto) 0.1 (0.0-0.4) X10*3/uL Baso # (Auto) 0.0 (0.0-0.2) X10*3/uL Abs Immat Gran (auto) 0.02 (0.00-0.03) X10*3/uL Absolute Neuts (auto) 3.5 (2.0-8.3) x10*3/uL Absolute Nucleated RBC 0.000 (0.0-0.012) X10*3/uL Nucleated RBC % (auto) 0.0 (0.0-0.2) /100WBC ESR (0-15) MM/HR Sodium 135 (135-145) mmol/L Potassium 4.8 (3.3-5.1) mmol/L Chloride 101 (96-108) mmol/L Carbon Dioxide 24 (22-29) mmol/L Anion Gap 15 (12-20) BUN 21 H (9-16) mg/dL Creatinine 1.04 (0.5-1.4) mg/dL Estim Creat Clear Calc 114.6 Estimated GFR > 60 Random Glucose 309 H (60-115) mg/dL Lactic Acid 0.8 (0.5-2.0) mmol/L Calcium 8.4 (8.4-10.2) mg/dL Total Bilirubin 0.3 (0.0-1.0) mg/dL Direct Bilirubin 0.2 (0.0-0.5) mg/dL AST 21 D (5-37) U/L ALT 18 (0-40) U/L Alkaline Phosphatase 206 H D (39-117) U/L Total Protein 6.8 (6.5-8.0) g/dL Albumin 3.3 L (3.5-5.0) g/dL Lipase 21 (8-78) U/L COVID-19 ([facility]) (Negative) COVID-19 Clin Com 04/25/22 04/25/22 Range/Units 18:58 18:59 WBC (4.8-10.8) X10*3/uL RBC (4.60-5.80) X10*6/uL Hgb (14.0-18.0) g/dl Hct (42.0-52.0) % MCV (80.0-98.0) fL MCH (27.0-33.0) pg MCHC (31.0-36.0) g/dl RDW (11.0-16.0) % Plt Count (160-400) X10*3/uL MPV (9.4-12.4) fL Immature Gran % (Auto) (0.0-0.4) % Neut % (Auto) (45-73) % Lymph % (Auto) (20-40) % Brewster % (Auto) (2-11) % Eos % (Auto) (0-4) % Baso % (Auto) (0-2) % Lymph # (Auto) (1.2-4.9) X10*3/uL Brewster # (Auto) (0.1-1.2) X10*3/uL Eos # (Auto) (0.0-0.4) X10*3/uL Baso # (Auto) (0.0-0.2) X10*3/uL Abs Immat Gran (auto) (0.00-0.03) X10*3/uL Absolute Neuts (auto) (2.0-8.3) x10*3/uL Absolute Nucleated RBC (0.0-0.012) X10*3/uL Nucleated RBC % (auto) (0.0-0.2) /100WBC ESR 79 H (0-15) MM/HR Sodium (135-145) mmol/L Potassium (3.3-5.1) mmol/L Chloride (96-108) mmol/L Carbon Dioxide (22-29) mmol/L Anion Gap (12-20) BUN (9-16) mg/dL Creatinine (0.5-1.4) mg/dL Estim Creat Clear Calc Estimated GFR Random Glucose (60-115) mg/dL Lactic Acid (0.5-2.0) mmol/L Calcium (8.4-10.2) mg/dL Total Bilirubin (0.0-1.0) mg/dL Direct Bilirubin (0.0-0.5) mg/dL AST (5-37) U/L ALT (0-40) U/L Alkaline Phosphatase (39-117) U/L Total Protein (6.5-8.0) g/dL Albumin (3.5-5.0) g/dL Lipase (8-78) U/L COVID-19 (NACHO) Negative (Negative) COVID-19 Clin Com See Note <Mac Maciel, DO - Last Filed: 04/25/22 16:37> Lab Results 04/25/22 04/25/22 04/25/22 Range/Units 18:58 18:58 18:58 WBC 5.2 (4.8-10.8) X10*3/uL RBC 3.46 L (4.60-5.80) X10*6/uL Hgb 9.5 L (14.0-18.0) g/dl Hct 29.5 L (42.0-52.0) % MCV 85.3 (80.0-98.0) fL MCH 27.5 (27.0-33.0) pg MCHC 32.2 (31.0-36.0) g/dl RDW 15.3 (11.0-16.0) % Plt Count 128 L (160-400) X10*3/uL MPV 9.8 (9.4-12.4) fL Immature Gran % (Auto) 0.4 (0.0-0.4) % Neut % (Auto) 67.8 (45-73) % Lymph % (Auto) 21.6 (20-40) % Brewster % (Auto) 9.0 (2-11) % Eos % (Auto) 1.0 (0-4) % Baso % (Auto) 0.2 (0-2) % Lymph # (Auto) 1.1 L (1.2-4.9) X10*3/uL Brewster # (Auto) 0.5 (0.1-1.2) X10*3/uL Eos # (Auto) 0.1 (0.0-0.4) X10*3/uL Baso # (Auto) 0.0 (0.0-0.2) X10*3/uL Abs Immat Gran (auto) 0.02 (0.00-0.03) X10*3/uL Absolute Neuts (auto) 3.5 (2.0-8.3) x10*3/uL Absolute Nucleated RBC 0.000 (0.0-0.012) X10*3/uL Nucleated RBC % (auto) 0.0 (0.0-0.2) /100WBC ESR (0-15) MM/HR Sodium 135 (135-145) mmol/L Potassium 4.8 (3.3-5.1) mmol/L Chloride 101 (96-108) mmol/L Carbon Dioxide 24 (22-29) mmol/L Anion Gap 15 (12-20) BUN 21 H (9-16) mg/dL Creatinine 1.04 (0.5-1.4) mg/dL Estim Creat Clear Calc 114.6 Estimated GFR > 60 Random Glucose 309 H (60-115) mg/dL Lactic Acid 0.8 (0.5-2.0) mmol/L Calcium 8.4 (8.4-10.2) mg/dL Total Bilirubin 0.3 (0.0-1.0) mg/dL Direct Bilirubin 0.2 (0.0-0.5) mg/dL AST 21 D (5-37) U/L ALT 18 (0-40) U/L Alkaline Phosphatase 206 H D (39-117) U/L Total Protein 6.8 (6.5-8.0) g/dL Albumin 3.3 L (3.5-5.0) g/dL Lipase 21 (8-78) U/L COVID-19 ([facility]CHO) (Negative) COVID-19 Clin Com 04/25/22 04/25/22 Range/Units 18:58 18:59 WBC (4.8-10.8) X10*3/uL RBC (4.60-5.80) X10*6/uL Hgb (14.0-18.0) g/dl Hct (42.0-52.0) % MCV (80.0-98.0) fL MCH (27.0-33.0) pg MCHC (31.0-36.0) g/dl RDW (11.0-16.0) % Plt Count (160-400) X10*3/uL MPV (9.4-12.4) fL Immature Gran % (Auto) (0.0-0.4) % Neut % (Auto) (45-73) % Lymph % (Auto) (20-40) % Brewster % (Auto) (2-11) % Eos % (Auto) (0-4) % Baso % (Auto) (0-2) % Lymph # (Auto) (1.2-4.9) X10*3/uL Brewster # (Auto) (0.1-1.2) X10*3/uL Eos # (Auto) (0.0-0.4) X10*3/uL Baso # (Auto) (0.0-0.2) X10*3/uL Abs Immat Gran (auto) (0.00-0.03) X10*3/uL Absolute Neuts (auto) (2.0-8.3) x10*3/uL Absolute Nucleated RBC (0.0-0.012) X10*3/uL Nucleated RBC % (auto) (0.0-0.2) /100WBC ESR 79 H (0-15) MM/HR Sodium (135-145) mmol/L Potassium (3.3-5.1) mmol/L Chloride (96-108) mmol/L Carbon Dioxide (22-29) mmol/L Anion Gap (12-20) BUN (9-16) mg/dL Creatinine (0.5-1.4) mg/dL Estim Creat Clear Calc Estimated GFR Random Glucose (60-115) mg/dL Lactic Acid (0.5-2.0) mmol/L Calcium (8.4-10.2) mg/dL Total Bilirubin (0.0-1.0) mg/dL Direct Bilirubin (0.0-0.5) mg/dL AST (5-37) U/L ALT (0-40) U/L Alkaline Phosphatase (39-117) U/L Total Protein (6.5-8.0) g/dL Albumin (3.5-5.0) g/dL Lipase (8-78) U/L COVID-19 (NACHO) Negative (Negative) COVID-19 Clin Com See Note <Filiberto Nesbitt MD - Last Filed: 04/25/22 23:17> Discharge Plan Discharge Clinical Impression: Diabetic ulcer of right foot <DO Haven Gagnon Last Filed: 04/25/22 16:37> Patient Disposition: Admitted As Inpatient <DO Haven Gagnon Last Filed: 04/25/22 16:37> Interventions: Admission Worksheet (ED) Last Done: 04/25/22 22:07 <DO Haven Gagnon Last Filed: 04/25/22 16:37> Discharge Date/Time: 04/25/22 22:31 <Mac Maciel DO - Last Filed: 04/25/22 16:37>
[2022-04-25 17:35] VITALS: BP 148/69; PULSE 103; RESP 12; TEMP 36.7; O2SAT 90
--- NOTE | 2022-04-25 18:39 | PC.NURSE ---
Pt stated that he is usually hard stick. Tech unable to obtain blood with first attempt. This RN made two attempts to draw blood and obtain IV access using US guidance but was unsuccessful with both. This RN asked charge nurse to attempt IV; if unsuccessful, will inform provider of need for IV access.
[2022-04-25] MEDS: 0.9 % Sodium Chloride 1,000 ML 999 ML IV (19:02)
[2022-04-25 19:08] VITALS: BMI 36.0
[2022-04-25 19:09] LABS: Basophils Percent Auto 0.2 % (0-2); Eosinophils Absolute Auto 0.1 X10*3/uL (0.0-0.4); Hematocrit 29.5 % (42.0-52.0); Hemoglobin 9.5 g/dl (14.0-18.0); Imm Gran Abs Auto 0.02 X10*3/uL (0.00-0.03); Imm Gran Pct Auto 0.4 % (0.0-0.4); Lymphocytes Absolute Auto 1.1 X10*3/uL (1.2-4.9); Lymphocytes Percent Auto 21.6 % (20-40); MANUAL DIFF FLAG NO; Mean Corpuscular HGB Conc 32.2 g/dl (31.0-36.0); Mean Corpuscular Hemoglobin 27.5 pg (27.0-33.0); Mean Corpuscular Volume 85.3 fL (80.0-98.0); Mean Platelet Volume 9.8 fL (9.4-12.4); Monocytes Absolute Auto 0.5 X10*3/uL (0.1-1.2); Neutrophils Absolute Auto 3.5 x10*3/uL (2.0-8.3); Neutrophils Percent Auto 67.8 % (45-73); Platelet Count 128 X10*3/uL (160-400); Red Blood Count 3.46 X10*6/uL (4.60-5.80); Red Cell Distribution Width 15.3 % (11.0-16.0); White Blood Count 5.2 X10*3/uL (4.8-10.8)
[2022-04-25] MEDS: cefEPime HCl 1 GM in 0.9 % Sodium Chloride 50 ML IV (19:09)
--- NOTE | 2022-04-25 19:09 | PC.NURSE ---
Care of patient assumed at 1900. Patient found resting in stretcher. This RN bedside now with MD Wilson to place EJ line, draw labs, and initiate antibiotics/fluids. This RN also speaks to pharmacy to confirm weight (entered now) and verify vanco dose.
[2022-04-25 19:11] VITALS: BP 136/68; PULSE 98; RESP 22; TEMP 36.6; O2SAT 100
[2022-04-25 19:21] LABS: IDNOW Serial# 16C4AD1C
[2022-04-25 19:22] LABS: COVID-19 Test Negative (Negative)
[2022-04-25 19:26] LABS: Lactic Acid 0.8 mmol/L (0.5-2.0)
--- NOTE | 2022-04-25 19:29 | PHA.MEDREC ---
Pharmacy Consult ? Medication Reconciliation Pharmacy has completed the medication reconciliation. Patient states that they take little to no insulin at home since they take apple cider vinegar, huy, milk thistle, and tumeric. Patient states he also takes methadone but has not made it to a clinic since discharge. He has been buying methadone. I put in his last dose [facility]
[2022-04-25 19:37] LABS: Alanine Aminotransferase 18 U/L (0-40); Albumin Level 3.3 g/dL (3.5-5.0); Alkaline Phosphatase 206 U/L (39-117); Anion Gap 15 (12-20); Aspartate Amino Transferase 21 U/L (5-37); Bilirubin Direct 0.2 mg/dL (0.0-0.5); Bilirubin Total 0.3 mg/dL (0.0-1.0); Blood Urea Nitrogen 21 mg/dL (9-16); Calcium 8.4 mg/dL (8.4-10.2); Carbon Dioxide 24 mmol/L (22-29); Chloride 101 mmol/L (96-108); Creatinine Clr Calc Pharmacy 114.6; Estimated Glomerular Filt Rate > 60; Glucose Random 309 mg/dL (60-115); Lipase 21 U/L (8-78); Potassium 4.8 mmol/L (3.3-5.1); Sodium 135 mmol/L (135-145); Total Protein 6.8 g/dL (6.5-8.0)
[2022-04-25 19:48] LABS: Erythrocyte Sedimentation Rate 79 MM/HR (0-15)
[2022-04-25 20:00] VITALS: BP 144/105; PULSE 98; RESP 16; TEMP 36.9; O2SAT 97
--- NOTE | 2022-04-25 21:43 | PHA.PROG ---
Admission Date/Time: April 25, 2022 21:30 Indication: BONE AND JOINT Weight in k kg Adjusted body weight in K.54 Pinson body weight in K.9 Obesity Dosing Indication % IBW: Serum Creatinine - Last 168 Hours 04/25/22 18:58 Creatinine 1.04 Estimated CrCl and GFR - Last 168 Hours 04/25/22 18:58 Estim Creat Clear Calc 114.6 Estimated GFR > 60 Vancomycin Loading Dose: 2000 MG Current Vancomycin Dosing Regimen: 1000 MG Q12H Vancomycin Monitoring using AUC goal of 400 - 600 range with trough as surrogate marker: AUC 469; TROUGH 13.2 Date and Time for next Vancomycin Level to be drawn: 04/27 @0600 Pharmacist Comments on Vancomycin Plan: OBESE MODEL Vancomycin dosing will take advantage of [employer] as a clinical decision support tool that uses Bayesian modeling to calculate individual patient's pharmacokinetic parameters and forecast the patient's drug concentration time course with the target goal AUC 24 range of 400 - 600 mg/L/hr.
[2022-04-25] MEDS: 0.9 % Sodium Chloride Flush 3 ML SYRINGE IVFLUSH (22:52)
[2022-04-25 23:29] VITALS: BP 160/82; PULSE 99; RESP 16; TEMP 36.6; O2SAT 98
[2022-04-26] MEDS: QUEtiapine Fumarate 100 MG TABLET PO ×3 (01:08→20:38)
[2022-04-26] MEDS: cloNIDine HCL 0.2 MG TABLET PO ×4 (01:08→20:38)
[2022-04-26] MEDS: Gabapentin 600 MG TABLET PO ×4 (01:08→20:38)
[2022-04-26] MEDS: Atorvastatin Calcium 40 MG TABLET PO ×2 (01:09→20:38)
[2022-04-26] MEDS: Furosemide 40 MG TABLET PO ×3 (01:09→17:03)
[2022-04-26] MEDS: clonazePAM 1 MG TABLET PO ×2 (01:12→20:44)
[2022-04-26 03:49] VITALS: BP 151/88; PULSE 89; RESP 16; TEMP 36.6; O2SAT 97
[2022-04-26 06:33] LABS: MANUAL DIFF FLAG NO
[2022-04-26 06:48] LABS: Basophils Percent Auto 0.2 % (0-2); Eosinophils Absolute Auto 0.1 X10*3/uL (0.0-0.4); Eosinophils Percent Auto 1.5 % (0-4); Hematocrit 33.1 % (42.0-52.0); Hemoglobin 10.6 g/dl (14.0-18.0); Imm Gran Abs Auto 0.03 X10*3/uL (0.00-0.03); Imm Gran Pct Auto 0.6 % (0.0-0.4); Lymphocytes Absolute Auto 0.8 X10*3/uL (1.2-4.9); Lymphocytes Percent Auto 15.7 % (20-40); Mean Corpuscular Hemoglobin 28.2 pg (27.0-33.0); Mean Platelet Volume 10.9 fL (9.4-12.4); Monocytes Absolute Auto 0.5 X10*3/uL (0.1-1.2); Neutrophils Absolute Auto 3.5 x10*3/uL (2.0-8.3); Platelet Count 114 X10*3/uL (160-400); Red Blood Count 3.76 X10*6/uL (4.60-5.80); Red Cell Distribution Width 15.4 % (11.0-16.0); White Blood Count 4.8 X10*3/uL (4.8-10.8)
[2022-04-26 06:50] LABS: Anion Gap 17 (12-20); Blood Urea Nitrogen 15 mg/dL (9-16); Calcium 8.4 mg/dL (8.4-10.2); Carbon Dioxide 24 mmol/L (22-29); Chloride 97 mmol/L (96-108); Creatinine Clr Calc Pharmacy 128.1; Estimated Glomerular Filt Rate > 60; Glucose Random 336 mg/dL (60-115); Potassium 4.8 mmol/L (3.3-5.1); Sodium 133 mmol/L (135-145)
[2022-04-26 07:03] VITALS: BP 126/75; PULSE 83; RESP 18; TEMP 36.1; O2SAT 99
[2022-04-26 07:25] LABS: Glucose, Whole Blood 291 mg/dL (60-115)
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
[2022-04-26] MEDS: 0.9 % Sodium Chloride Flush 3 ML SYRINGE IVFLUSH (08:18)
[2022-04-26] MEDS: Insulin Lispro 100 UNIT/ML 3 ML VIAL 15 UNIT SUBCUT ×2 (08:19→12:18)
[2022-04-26] MEDS: Insulin Lispro 100 UNIT/ML 3 ML VIAL SUBCUT ×3 (08:21→20:35)
--- NOTE | 2022-04-26 09:07 | MHC.RECOVRN ---
Spoke with medical unit at [facility]. Pt dc on 04/21 AMA, had received 100 mg methadone daily while there, last dose 04/21. Faye Chavira APRN, notified.
--- NOTE | 2022-04-26 10:27 | MHC.CM.PN ---
CM ATTEMPTED TO MEET WITH PT WHO IS OFF UNIT CM TO REVISIT
[2022-04-26 11:06] VITALS: BP 116/64; PULSE 79; RESP 16; TEMP 36.1; O2SAT 96
[2022-04-26 11:16] LABS: Glucose, Whole Blood 248 mg/dL (60-115)
[2022-04-26] MEDS: methADONE HCl 20 MG/2 ML ORAL.CONC 50 MG PO (11:21)
--- NOTE | 2022-04-26 14:46 | W.PM.IDCN ---
History of Present Illness Data of Consult Service Date: 04/26/22 Requesting physician: Gregorio Barnett Primary Care Provider: Unknown Physician HPI Reason for consult: left foot erythema He presents with left foot erythema and pain for three days. He has no fever or chills. ESR is elevated at 79. He was in hospital last month and had two plantar ulcers on right foot with inflammation He did take Doxycycline and is on it. Review of Systems Review of Systems: Yes all other systems are reviewed and are negative PMFSH Past Medical History Medical History Compartment syndrome of left lower extremity Diabetes HTN (hypertension) Post-COVID chronic dyspnea Ulcer of left foot Family History Family History Other No pertinent family history Family history: reviewed and not pertinent Surgical History Surgical History Status post transmetatarsal amputation of right foot Social History Social History Household Members: None Housing: Apartment Housing Other:: reports no place to live Do you presently have visiting nurse or other home services: No Patient Tobacco Use Status: Never used Tobacco e-Cigarette/Vaping Use: Never Used Use of substances other than those prescribed or required for medical reasons: No Currently Displaying Signs/Symptoms of Drug Intoxication Withdrawal: No Have you been hit, kicked, punched, or otherwise hurt by someone within the past year? If so, by whom?: No Do you feel safe in your current relationship?: Yes Is there a partner from a previous relationship who is making you feel unsafe now?: No Are you made to feel afraid or neglected: No Advance Directives: No Advance Directives Information Provided: No Do you have thoughts of harming others: None Do you have a plan to hurt others: No Plan Recently lost weight without trying: No Nutrition Risks: No Nutritional Risk service: No Current occupational status: disabled Meds Allergies Allergy/AdvReac Type Severity Reaction Status Date / Time prochlorperazine Allergy Intermediate Hives Verified 03/22/22 10:13 [From Compazine] aspirin [ASA] Allergy Unknown HIVES Unverified 02/20/20 16:18 naproxen [From NAPROSYN] Allergy Unknown HIVES Unverified 02/20/20 16:18 NSAIDS (Non-Steroidal Allergy Unknown HIVES Unverified 02/20/20 16:18 Anti-Inflamma [NSAIDS (NON-STEROIDAL ANTI-INFLAMMA] Penicillins [PENICILLINS] Allergy Unknown HIVES Unverified 02/20/20 16:18 Active Medications: Current Medications Acetaminophen (Acetaminophen 325 Mg Tablet) 650 mg PO Q6H PRN PRN Reason: Pain, Mild (Pain Scale 1-3) Atorvastatin Calcium (Atorvastatin Calcium 40 Mg Tablet) 40 mg PO BEDTIME [facility] Last Admin: 04/26/22 01:09 Dose: 40 mg Clonazepam (Clonazepam 1 Mg Tablet) 1 mg PO BID PRN PRN Reason: anxiety Last Admin: 04/26/22 01:12 Dose: 1 mg Clonidine HCl (Clonidine Hcl 0.2 Mg Tablet) 0.2 mg PO TID [facility]; Protocol Last Admin: 04/26/22 08:18 Dose: 0.2 mg Dextrose (Dextrose 50 % 25 Gm/50 Ml Syringe) 25 gm IVPUSH Q15M PRN; Protocol PRN Reason: per Hypoglycemia Standing Ord. Docusate Sodium (Docusate Sodium 100 Mg Capsule) 100 mg PO DAILY PRN PRN Reason: Constipation Enoxaparin Sodium (Enoxaparin Sodium 40 Mg/0.4 Ml Syringe) 40 mg SUBCUT Q24H [facility] Last Admin: 04/25/22 21:41 Dose: Not Given Furosemide (Furosemide 40 Mg Tablet) 40 mg PO BID@0800,1700 [facility]; Protocol Last Admin: 04/26/22 08:19 Dose: 40 mg Gabapentin (Gabapentin 600 Mg Tablet) 600 mg PO TID [facility] Last Admin: 04/26/22 08:19 Dose: 600 mg Glucose (Glucose Gel 15 Gm Gel..Gram.) 15 gm PO Q15M PRN; Protocol PRN Reason: per Hypoglycemia Standing Ord. Vancomycin HCl 1,000 mg/ (Sodium Chloride) 270 mls @ 270 mls/hr IV Q12H [facility] Insulin Glargine (Insulin Glargine,Hum.Rec.Anlog 100 Unit/Ml 10 Ml Vial) 120 unit SUBCUT BEDTIME [facility] Insulin Human Lispro (Insulin Lispro 100 Unit/Ml 3 Ml Vial) 15 unit SUBCUT TIDWM [facility] Last Admin: 04/26/22 12:18 Dose: 15 unit Insulin Human Lispro (Insulin Lispro 100 Unit/Ml 3 Ml Vial) 0 unit SUBCUT QIDACHS [facility]; Protocol Last Admin: 04/26/22 12:19 Dose: 4 unit Methadone HCl (Methadone Hcl 20 Mg/2 Ml Oral.Conc) 50 mg PO DAILY [facility] Last Admin: 04/26/22 11:21 Dose: 50 mg Ondansetron HCl (Ondansetron Hcl 4 Mg/2 Ml Vial) 4 mg IVPUSH Q8H PRN PRN Reason: Nausea and Vomiting Pharmacy Consult (Consult Rx Perform Med Rec) 1 each MISCELLANE ONCE PRN PRN Reason: Consult order Pharmacy Consult (Consult Rx Vancomycin Dosing) 1 each MISCELLANE DAILY PRN PRN Reason: Consult order Pharmacy Consult (Consult Rx Perform Med Rec) 1 each MISCELLANE ONCE PRN PRN Reason: Consult order Quetiapine Fumarate (Quetiapine Fumarate 100 Mg Tablet) 100 mg PO BID [facility] Last Admin: 04/26/22 08:19 Dose: 100 mg Sodium Chloride (0.9 % Sodium Chloride Flush 3 Ml [facility]) [facility] Admin: 04/26/22 08:18 Dose: 3 ml Home Medications Medication Instructions Recorded Confirmed Last Taken Type atorvastatin 40 mg tablet 1 tab PO BEDTIME 03/16/22 04/25/22 04/24/22 History clonazepam 1 mg tablet 1 tab PO BID PRN anxiety 03/16/22 04/25/22 04/24/22 History clonidine HCl 0.2 mg tablet 1 tab PO TID 03/16/22 04/25/22 04/24/22 History furosemide 40 mg tablet 1 tab PO BID 03/16/22 04/25/22 04/24/22 History gabapentin 600 mg tablet 1 tab PO TID 03/16/22 04/25/22 04/24/22 History insulin glargine 100 unit/mL (3 120 unit subcut BEDTIME 03/16/22 04/25/22 Unknown History mL) subcutaneous pen (Lantus Solostar U-100 Insulin) insulin lispro 100 unit/mL 15 unit subcut TID 03/16/22 04/25/22 Unknown History subcutaneous pen quetiapine 100 mg tablet 1 tab PO BID 03/16/22 04/25/22 04/24/22 History methadone 10 mg/mL oral 140 mg PO DAILY 04/25/22 04/23/22 History concentrate (Methadone Intensol) Physical Exam Vital Signs: Vital Signs: Last Vital Signs Temp 96.9 F 04/26/22 11:06 Pulse 79 04/26/22 11:06 Resp 16 04/26/22 11:06 BP 116/64 04/26/22 11:06 Pulse Ox 96 04/26/22 11:06 O2 Del Method 04/26/22 11:06 O2 Flow Rate 2 04/26/22 07:03 BMI result Body Mass Index 36.0 Const: General: cooperative HEENT: Head: Yes normal to inspection Face and sinus: Yes normal facial exam Mouth: Normal oral and palatal mucosa present Teeth and gingiva: dentition normal Eyes: General: appearance normal, both eyes and all related structures Pupils: Equal, round and reactive pupils present Resp: Effort & Inspection: normal respiratory effort Cardio: Rate: regular rate Rhythm: regular rhythm GI: Palpation (GI): Soft to palpation and nontender : General: Yes no CVA tenderness Back/Spine/Pelvis: Back: no CVA tenderness Skin: General skin exam: no rashes or lesions noted Neuro: General: moves all extremities Cranial nerves: Yes Equal, round and reactive pupils present Extrem: Other: right foot plantar ulcers x 2 left foot first MTP reddened ,swollen Psych: Appearance: grossly normal Results Labs CBC & Chem 7: 04/26/22 06:11 04/26/22 06:11 Labs: Short CBC 04/25/22 04/26/22 Range/Units 18:58 06:11 WBC 5.2 4.8 (4.8-10.8) X10*3/uL Hgb 9.5 L 10.6 L (14.0-18.0) g/dl Hct 29.5 L 33.1 L (42.0-52.0) % Plt Count 128 L 114 L (160-400) X10*3/uL BMP 04/25/22 04/26/22 18:58 06:11 Sodium 135 133 L Potassium 4.8 4.8 Chloride 101 97 Carbon Dioxide 24 24 BUN 21 H 15 Creatinine 1.04 0.93 Calcium 8.4 8.4 Liver Function 04/25/22 Range/Units 18:58 Total Bilirubin 0.3 (0.0-1.0) mg/dL Direct Bilirubin 0.2 (0.0-0.5) mg/dL AST 21 D (5-37) U/L ALT 18 (0-40) U/L Alkaline Phosphatase 206 H D (39-117) U/L Albumin 3.3 L (3.5-5.0) g/dL Assessment and Plan (1) Ulcer of left foot: Status: Acute this is probable osteomyelitis with increased ESR and chronic infection He is a poor candidate for home IV antibiotics IV antibiotics are preferable (2) Diabetic ulcer of right foot: Status: Acute Plan IV Vancomycin and po Levaquin at facility for six weeks If declines po Levaquin and linezolid for six weeks Wound Care followup Prognosis poor for future limb salvage
--- NOTE | 2022-04-26 15:04 | P.PNIM_ITS ---
Subjective Subjective Date of Service: 04/26/22 Interval History: No acute issues overnight Review of Systems Denies chest pain Denies shortness of breath Denies nausea vomiting diarrhea Denies fever chills Physical Exam Vital Signs: Vital Signs: Last Vital Signs Temp 96.9 F 04/26/22 11:06 Pulse 79 04/26/22 11:06 Resp 16 04/26/22 11:06 BP 116/64 04/26/22 11:06 Pulse Ox 96 04/26/22 11:06 O2 Del Method 04/26/22 11:06 O2 Flow Rate 2 04/26/22 07:03 BMI result Body Mass Index 36.0 Const: Other: No acute issues Resp: Other: Clear to auscultation bilaterally no rales rhonchi wheezes Cardio: Other: No S4; positive S1-S2; no S3 murmurs rubs or gallops Extrem: Other: See initial ER picture evaluation Objective Data Active Medications Acetaminophen (Acetaminophen 325 Mg Tablet) 650 mg PO Q6H PRN PRN Reason: Pain, Mild (Pain Scale 1-3) Atorvastatin Calcium (Atorvastatin Calcium 40 Mg Tablet) 40 mg PO BEDTIME [facility] Last Admin: 04/26/22 01:09 Dose: 40 mg Documented By: ZULEIMA Clonazepam (Clonazepam 1 Mg Tablet) 1 mg PO BID PRN PRN Reason: anxiety Last Admin: 04/26/22 01:12 Dose: 1 mg Documented By: ZULEIMA Clonidine HCl (Clonidine Hcl 0.2 Mg Tablet) 0.2 mg PO TID [facility]; Protocol Last Admin: 04/26/22 08:18 Dose: 0.2 mg Documented By: ANYA Dextrose (Dextrose 50 % 25 Gm/50 Ml Syringe) 25 gm IVPUSH Q15M PRN; Protocol PRN Reason: per Hypoglycemia Standing Ord. Docusate Sodium (Docusate Sodium 100 Mg Capsule) 100 mg PO DAILY PRN PRN Reason: Constipation Enoxaparin Sodium (Enoxaparin Sodium 40 Mg/0.4 Ml Syringe) 40 mg SUBCUT Q24H [facility] Last Admin: 04/25/22 21:41 Dose: Not Given Documented By: GREG Non-Admin Reason: patient refused despite thorough education Furosemide (Furosemide 40 Mg Tablet) 40 mg PO BID@0800,1700 [facility]; Protocol Last Admin: 04/26/22 08:19 Dose: 40 mg Documented By: ANYA Gabapentin (Gabapentin 600 Mg Tablet) 600 mg PO TID [facility] Last Admin: 04/26/22 08:19 Dose: 600 mg Documented By: ANYA Glucose (Glucose Gel 15 Gm Gel..Gram.) 15 gm PO Q15M PRN; Protocol PRN Reason: per Hypoglycemia Standing Ord. Vancomycin HCl 1,000 mg/ (Sodium Chloride) 270 mls @ 270 mls/hr IV Q12H [facility] Insulin Glargine (Insulin Glargine,Hum.Rec.Anlog 100 Unit/Ml 10 Ml Vial) 120 unit SUBCUT BEDTIME [facility] Insulin Human Lispro (Insulin Lispro 100 Unit/Ml 3 Ml Vial) 15 unit SUBCUT TIDWM [facility] Last Admin: 04/26/22 12:18 Dose: 15 unit Documented By: ANYA Insulin Human Lispro (Insulin Lispro 100 Unit/Ml 3 Ml Vial) 0 unit SUBCUT QIDACHS [facility]; Protocol Last Admin: 04/26/22 12:19 Dose: 4 unit Documented By: ANYA Methadone HCl (Methadone Hcl 20 Mg/2 Ml Oral.Conc) 50 mg PO DAILY [facility] Last Admin: 04/26/22 11:21 Dose: 50 mg Documented By: TRACY Ondansetron HCl (Ondansetron Hcl 4 Mg/2 Ml Vial) 4 mg IVPUSH Q8H PRN PRN Reason: Nausea and Vomiting Pharmacy Consult (Consult Rx Perform Med Rec) 1 each MISCELLANE ONCE PRN PRN Reason: Consult order Pharmacy Consult (Consult Rx Vancomycin Dosing) 1 each MISCELLANE DAILY PRN PRN Reason: Consult order Pharmacy Consult (Consult Rx Perform Med Rec) 1 each MISCELLANE ONCE PRN PRN Reason: Consult order Quetiapine Fumarate (Quetiapine Fumarate 100 Mg Tablet) 100 mg PO BID [facility] Last Admin: 04/26/22 08:19 Dose: 100 mg Documented By: ANYA Sodium Chloride (0.9 % Sodium Chloride Flush 3 Ml Syringe) 3 ml IVFLUSH QSHIFT [facility] Last Admin: 04/26/22 08:18 Dose: 3 ml Documented By: ANYA Labs CBC & Chem 7: 04/26/22 06:11 04/26/22 06:11 Labs: Laboratory Results - last 24 hr 04/25/22 04/25/22 04/25/22 18:58 18:58 18:58 MCV 85.3 MCH 27.5 MCHC 32.2 RDW 15.3 Plt Count 128 L MPV 9.8 Immature Gran % (Auto) 0.4 Neut % (Auto) 67.8 Lymph % (Auto) 21.6 [place] % (Auto) 9.0 Eos % (Auto) 1.0 Baso % (Auto) 0.2 Lymph # (Auto) 1.1 L [place] # (Auto) 0.5 Eos # (Auto) 0.1 Baso # (Auto) 0.0 Abs Immat Gran (auto) 0.02 Absolute Neuts (auto) 3.5 Absolute Nucleated RBC 0.000 Nucleated RBC % (auto) 0.0 ESR Anion Gap 15 Estim Creat Clear Calc 114.6 Estimated GFR > 60 POC Glucose Random Glucose 309 H Lactic Acid 0.8 Calcium 8.4 Total Bilirubin 0.3 Direct Bilirubin 0.2 AST 21 D ALT 18 Alkaline Phosphatase 206 H D Total Protein 6.8 Albumin 3.3 L Lipase 21 COVID-19 ([facility]) COVID-19 Clin Com 04/25/22 04/25/22 04/26/22 18:58 18:59 06:11 MCV 88.0 MCH 28.2 MCHC 32.0 RDW 15.4 Plt Count 114 L MPV 10.9 Immature Gran % (Auto) 0.6 H Neut % (Auto) 72.0 Lymph % (Auto) 15.7 L [place] % (Auto) 10.0 Eos % (Auto) 1.5 Baso % (Auto) 0.2 Lymph # (Auto) 0.8 L [place] # (Auto) 0.5 Eos # (Auto) 0.1 Baso # (Auto) 0.0 Abs Immat Gran (auto) 0.03 Absolute Neuts (auto) 3.5 Absolute Nucleated RBC 0.000 Nucleated RBC % (auto) 0.0 ESR 79 H Anion Gap Estim Creat Clear Calc Estimated GFR POC Glucose Random Glucose Lactic Acid Calcium Total Bilirubin Direct Bilirubin AST ALT Alkaline Phosphatase Total Protein Albumin Lipase COVID-19 ([facility]) Negative COVID-19 Clin Com See Note 04/26/22 04/26/22 04/26/22 06:11 07:12 11:10 MCV MCH MCHC RDW Plt Count MPV Immature Gran % (Auto) Neut % (Auto) Lymph % (Auto) [place] % (Auto) Eos % (Auto) Baso % (Auto) Lymph # (Auto) [place] # (Auto) Eos # (Auto) Baso # (Auto) Abs Immat Gran (auto) Absolute Neuts (auto) Absolute Nucleated RBC Nucleated RBC % (auto) ESR Anion Gap 17 Estim Creat Clear Calc 128.1 Estimated GFR > 60 POC Glucose 291 H 248 H Random Glucose 336 H Lactic Acid Calcium 8.4 Total Bilirubin Direct Bilirubin AST ALT Alkaline Phosphatase Total Protein Albumin Lipase COVID-19 ([facility]) COVID-19 Clin Com Assessment and Plan (1) Acute osteomyelitis: Status: Acute (2) Ulcer of left foot: Status: Acute (3) Diabetic ulcer of right foot: Status: Acute Plan 51-year-old male with history of diabetes type 2 insulin dependent, peripheral arterial disease status post right transmetatarsal amputation, chronic wounds bilateral, polysubstance abuse, hypertension, HLD, anxiety, chronic respiratory a proxy of following COVID-19 on 2 L oxygen 26/12 comes here for worsening of the wound on the top of left foot pain? Patient was just admitted and discharged on 03/21 for a right amputated metatarsal foot ulcer was given antibiotics patient is still taking doxycycline patient says was had a small wound on the top of the left foot when he was admitted which got worse in last 3 days it just opened up no fever no chills patient unable to follow up with wound clinic since discharge on 03/21. Admitted for further workup 1. Acute osteomyelitis (bone scan pending) -continue vancomycin/cefepime -ID consult/bone scan pending 2. DM 2 -continue long-acting along with lispro sliding scale -adjust as indicated 3. Hypertension -acceptable control on current therapies -adjust as indicated Full code Lovenox Patient will require ongoing hospitalization for IV antibiotics to treat acute osteomyelitis Quality Stroke Does the patient have a stroke diagnosis?: No VTE Prior VTE?: No VTE Risk Level:: Medical - moderate - high VTE Device Contraindication: Treatment Not Indicated VTE Drug Contraindication: N/A - Med Ordered
[2022-04-26 15:15] VITALS: BP 117/66; PULSE 75; RESP 18; TEMP 36.6; O2SAT 100
[2022-04-26 15:46] LABS: Glucose, Whole Blood 90 mg/dL (60-115)
[2022-04-26] MEDS: cefEPime HCl 2 GM in 0.9 % Sodium Chloride 50 ML IV (17:03)
--- NOTE | 2022-04-26 17:24 | HE.PHANOTE ---
RE CROW PT LOST ACCESS AND NEEDS PICC LINE. GAVE PATIENT 1500MG X1, THEN 1GRAM Q12H. NEXT LEVEL 04/28 @ 0600 ALLY
[2022-04-26] MEDS: vancomycin HCL 1,500 MG in 0.9 % Sodium Chloride 500 ML 333.33 MG IV (18:04)
[2022-04-26 19:18] VITALS: BP 137/68; PULSE 72; RESP 18; TEMP 36.7; O2SAT 96
[2022-04-26 20:00] LABS: Glucose, Whole Blood 295 mg/dL (60-115)
[2022-04-26] MEDS: Insulin Glargine,Hum.rec.anlog 100 UNIT/ML 10 ML VIAL 120 UNIT SUBCUT (20:34)
[2022-04-26] MEDS: oxyCODONE HCl Immed Release 5 MG TABLET 10 MG PO (20:44)
--- NOTE | 2022-04-26 20:53 | PC.NURSE ---
Addendum entered by Lyn Luo RN 04/26/22 21:06: PT agreed to bed alarm once PT was told MD wanted a camera in room for safety. Bed alarm on now. Original Note: PT refusing bed alarm and camera, education provided, PT is moderate fall risk, MD Smyth notified. PT also refusing lovenox injection, education provided and MD Smyth notified.
[2022-04-26 23:44] VITALS: BP 115/59; PULSE 75; RESP 18; TEMP 36.9; O2SAT 91
[2022-04-27] MEDS: 0.9 % Sodium Chloride Flush 3 ML SYRINGE IVFLUSH ×3 (00:27→16:18)
[2022-04-27] MEDS: cefEPime HCl 2 GM in 0.9 % Sodium Chloride 50 ML IV ×3 (00:27→16:18)
[2022-04-27 03:11] VITALS: BP 121/66; PULSE 73; RESP 18; TEMP 37.1; O2SAT 98
--- NOTE | 2022-04-27 06:56 | PM.IMHP ---
History of Present Illness Date of Service: 04/25/22 Chief Complaint: foot wound this is a 51-year-old male with past medical history of type 2 diabetes insulin dependent, peripheral vascular disease status post right transmetatarsal amputation, chronic wounds bilaterally, history of polysubstance abuse, hypertension, HLD, anxiety, chronic respiratory failure presents to the hospital with complaints of worsening wound on top of his left foot. patient also complaining of worsening pain. Of note patient was discharged from the hospital on 03/21 after undergoing right metatarsal amputation and was discharged on antibiotics. Patient reports compliance with doxycycline. Patient reports that his wound has been worsening over the past 3 days. He denies any chest pain, no shortness of breath, no fever or chills, no abdominal pain nausea or vomiting, no diarrhea constipation, no urinary symptoms. On arrival patient hemodynamically stable labs are significant for normal WBC count, ESR 79, imaging showed chronic deformities in ports surgical changes of both C, with no acute findings. Patient will be admitted for further management Review of Systems Review of Systems: Yes all other systems are reviewed and are negative [facility] Medical History Compartment syndrome of left lower extremity Diabetes HTN (hypertension) Post-COVID chronic dyspnea Ulcer of left foot Family History Other No pertinent family history Surgical History Status post transmetatarsal amputation of right foot Social History Household Members: None Housing: Apartment Housing Other:: reports no place to live Do you presently have visiting nurse or other home services: No Patient Tobacco Use Status: Never used Tobacco e-Cigarette/Vaping Use: Never Used Use of substances other than those prescribed or required for medical reasons: No Currently Displaying Signs/Symptoms of Drug Intoxication Withdrawal: No Have you been hit, kicked, punched, or otherwise hurt by someone within the past year? If so, by whom?: No Do you feel safe in your current relationship?: Yes Is there a partner from a previous relationship who is making you feel unsafe now?: No Are you made to feel afraid or neglected: No Advance Directives: No Advance Directives Information Provided: No Do you have thoughts of harming others: None Do you have a plan to hurt others: No Plan Recently lost weight without trying: No Nutrition Risks: No Nutritional Risk service: No Current occupational status: disabled Meds Allergies Allergy/AdvReac Type Severity Reaction Status Date / Time prochlorperazine Allergy Intermediate Hives Verified 03/22/22 10:13 [From Compazine] aspirin [ASA] Allergy Unknown HIVES Unverified 02/20/20 16:18 naproxen [From NAPROSYN] Allergy Unknown HIVES Unverified 02/20/20 16:18 NSAIDS (Non-Steroidal Allergy Unknown HIVES Unverified 02/20/20 16:18 Anti-Inflamma [NSAIDS (NON-STEROIDAL ANTI-INFLAMMA] Penicillins [PENICILLINS] Allergy Unknown HIVES Unverified 02/20/20 16:18 Active Medications: Current Medications Acetaminophen (Acetaminophen 325 Mg Tablet) 650 mg PO Q6H PRN PRN Reason: Pain, Mild (Pain Scale 1-3) Atorvastatin Calcium (Atorvastatin Calcium 40 Mg Tablet) 40 mg PO BEDTIME RICHARD Last Admin: 04/26/22 20:38 Dose: 40 mg Clonazepam (Clonazepam 1 Mg Tablet) 1 mg PO BID PRN PRN Reason: anxiety Last Admin: 04/26/22 20:44 Dose: 1 mg Clonidine HCl (Clonidine Hcl 0.2 Mg Tablet) 0.2 mg PO TID RICHARD; Protocol Last Admin: 04/26/22 20:38 Dose: 0.2 mg Dextrose (Dextrose 50 % 25 Gm/50 Ml Syringe) 25 gm IVPUSH Q15M PRN; Protocol PRN Reason: per Hypoglycemia Standing Ord. Docusate Sodium (Docusate Sodium 100 Mg Capsule) 100 mg PO DAILY PRN PRN Reason: Constipation Enoxaparin Sodium (Enoxaparin Sodium 40 Mg/0.4 Ml Syringe) 40 mg SUBCUT Q24H RICHARD Last Admin: 04/26/22 20:36 Dose: Not Given Furosemide (Furosemide 40 Mg Tablet) 40 mg PO BID@0800,1700 [facility]; Protocol Last Admin: 04/26/22 17:03 Dose: 40 mg Gabapentin (Gabapentin 600 Mg Tablet) 600 mg PO TID RICHARD Last Admin: 04/26/22 20:38 Dose: 600 mg Glucose (Glucose Gel 15 Gm Gel..Gram.) 15 gm PO Q15M PRN; Protocol PRN Reason: per Hypoglycemia Standing Ord. Cefepime HCl 2 gm/ Sodium (Chloride) 50 mls @ 100 mls/hr IV Q8H [facility] Last Infusion: 04/27/22 00:58 Dose: Infused Vancomycin HCl 1,000 mg/ (Sodium Chloride) 270 mls @ 270 mls/hr IV Q12H [facility] Insulin Glargine (Insulin Glargine,Hum.Rec.Anlog 100 Unit/Ml 10 Ml Vial) 120 unit SUBCUT BEDTIME [facility] Last Admin: 04/26/22 20:34 Dose: 120 unit Insulin Human Lispro (Insulin Lispro 100 Unit/Ml 3 Ml Vial) 15 unit SUBCUT TIDWM [facility] Last Admin: 04/26/22 15:52 Dose: Not Given Insulin Human Lispro (Insulin Lispro 100 Unit/Ml 3 Ml Vial) 0 unit SUBCUT QIDACHS [facility]; Protocol Last Admin: 04/26/22 20:35 Dose: 6 unit Methadone HCl (Methadone Hcl 20 Mg/2 Ml Oral.Conc) 65 mg PO DAILY [facility] Ondansetron HCl (Ondansetron Hcl 4 Mg/2 Ml Vial) 4 mg IVPUSH Q8H PRN PRN Reason: Nausea and Vomiting Oxycodone HCl (Oxycodone Hcl Immed Release 5 Mg Tablet) 10 mg PO Q4H PRN PRN Reason: Pain, Moderate (Pain Scale 4-6 Last Admin: 04/26/22 20:44 Dose: 10 mg Pharmacy Consult (Consult Rx Perform Med Rec) 1 each MISCELLANE ONCE PRN PRN Reason: Consult order Pharmacy Consult (Consult Rx Vancomycin Dosing) 1 each MISCELLANE DAILY PRN PRN Reason: Consult order Pharmacy Consult (Consult Rx Perform Med Rec) 1 each MISCELLANE ONCE PRN PRN Reason: Consult order Quetiapine Fumarate (Quetiapine Fumarate 100 Mg Tablet) 100 mg PO BID [facility] Last Admin: 04/26/22 20:38 Dose: 100 mg Sodium Chloride (0.9 % Sodium Chloride Flush 3 Ml Syringe) 3 ml IVFLUSH QSHIFT [facility] Last Admin: 04/27/22 00:27 Dose: 3 ml Home Medications Medication Instructions Recorded Confirmed Last Taken Type atorvastatin 40 mg tablet 1 tab PO BEDTIME 03/16/22 04/25/22 04/24/22 History clonazepam 1 mg tablet 1 tab PO BID PRN anxiety 03/16/22 04/25/22 04/24/22 History clonidine HCl 0.2 mg tablet 1 tab PO TID 03/16/22 04/25/22 04/24/22 History furosemide 40 mg tablet 1 tab PO BID 03/16/22 04/25/22 04/24/22 History gabapentin 600 mg tablet 1 tab PO TID 03/16/22 04/25/22 04/24/22 History insulin glargine 100 unit/mL (3 120 unit subcut BEDTIME 03/16/22 04/25/22 Unknown History mL) subcutaneous pen (Lantus Solostar U-100 Insulin) insulin lispro 100 unit/mL 15 unit subcut TID 03/16/22 04/25/22 Unknown History subcutaneous pen quetiapine 100 mg tablet 1 tab PO BID 03/16/22 04/25/22 04/24/22 History methadone 10 mg/mL oral 140 mg PO DAILY 04/25/22 04/23/22 History concentrate (Methadone Intensol) Physical Exam Vital Signs and Narrative: Vital Signs: Last Vital Signs Temp 98.8 F 04/27/22 03:11 Pulse 73 04/27/22 03:11 Resp 18 04/27/22 03:11 BP 121/66 04/27/22 03:11 Pulse Ox 98 04/27/22 03:11 O2 Del Method 04/27/22 03:11 O2 Flow Rate 2 04/27/22 03:11 BMI result Body Mass Index 36.0 Const: General: cooperative and no acute distress Orientation/consciousness: patient oriented x3 Eyes: General: appearance normal, both eyes and all related structures Resp: Effort & Inspection: normal respiratory effort Auscultation: clear to auscultation bilaterally Cardio: Rate: regular rate Rhythm: regular rhythm GI: Palpation (GI): Soft to palpation Auscultation: normal bowel sounds Skin: General skin exam: no rashes or lesions noted Neuro: General: patient oriented x3 Cognition (Neuro): normal cognition Extrem: Other: left foot medial ulcer at the base of the big toe with erythema, drainage of clear serosanguineous fluid right foot amputated sites appear clean Results Labs CBC and Chem 7: 05/11/22 06:57 05/17/22 05:17 Labs: Laboratory Results - last 24 hr 11/22/22 11/22/22 11/22/22 07:12 11:10 15:41 POC Glucose 291 H 248 H 90 04/26/22 19:40 POC Glucose 295 H Imaging Radiologist's Impressions: Impressions Bone Scan Nuclear Medicine 04/26/22 14:25 IMPRESSION: Focal increased activity left foot, base of fourth and fifth digits. On left foot x-ray there appears to be fusion between the the base of fourth digit and tarsal bone with mild degenerative arthritic changes likely cause for increased activity. No abnormal activity seen in the amputated right foot to suspect any osteomyelitis. Mild increased activity in both feet on the first and second phase of bone scan likely related to cellulitis or hyperemia. Assessment and Plan (1) Ulcer of left foot: Status: Acute (2) Acute osteomyelitis: Status: Acute Plan 51-year-old male with history of diabetes type 2 insulin dependent, peripheral arterial disease status post right transmetatarsal amputation, chronic wounds bilateral, polysubstance abuse, hypertension, HLD, anxiety, chronic respiratory a proxy of following COVID-19 on 2 L oxygen 26/12 comes here for worsening of the wound on the top of left foot pain? Patient was just admitted and discharged on 03/21 for a right amputated metatarsal foot ulcer was given antibiotics patient is still taking doxycycline patient says was had a small wound on the top of the left foot when he was admitted which got worse in last 3 days it just opened up no fever no chills patient unable to follow up with wound clinic since discharge on 03/21.? Admitted for further workup # diabetic foot wound - with recent amputation on the right - has elevated ESR - will add CRP - will place on broad-spectrum IV antibiotics - infectious disease consulted 2. DM 2 -continue long-acting along with lispro sliding scale -adjust as indicated 3. Hypertension -acceptable control on current therapies -adjust as indicated given patient's need for IV antibiotics patient will require minimum 2 night inpatient hospital stay for further management and monitor Quality Stroke Does the patient have a stroke diagnosis?: No VTE Prior VTE?: No VTE Risk Level:: Medical - moderate - high VTE Device Contraindication: Treatment Not Indicated VTE Drug Contraindication: N/A - Med Ordered
[2022-04-27 07:00] VITALS: BP 119/58; PULSE 72; RESP 18; TEMP 36.9; O2SAT 94
[2022-04-27 07:21] LABS: Glucose, Whole Blood 398 mg/dL (60-115)
[2022-04-27 07:59] LABS: Basophils Percent Auto 0.4 % (0-2); Eosinophils Absolute Auto 0.1 X10*3/uL (0.0-0.4); Eosinophils Percent Auto 4.7 % (0-4); Hematocrit 30.2 % (42.0-52.0); Hemoglobin 9.7 g/dl (14.0-18.0); Imm Gran Abs Auto 0.02 X10*3/uL (0.00-0.03); Imm Gran Pct Auto 0.7 % (0.0-0.4); Lymphocytes Absolute Auto 0.8 X10*3/uL (1.2-4.9); Lymphocytes Percent Auto 27.2 % (20-40); MANUAL DIFF FLAG SCAN; Mean Corpuscular HGB Conc 32.1 g/dl (31.0-36.0); Mean Corpuscular Hemoglobin 27.4 pg (27.0-33.0); Mean Corpuscular Volume 85.3 fL (80.0-98.0); Mean Platelet Volume 11.4 fL (9.4-12.4); Monocytes Absolute Auto 0.3 X10*3/uL (0.1-1.2); Monocytes Percent Auto 11.8 % (2-11); Neutrophils Absolute Auto 1.5 x10*3/uL (2.0-8.3); Neutrophils Percent Auto 55.2 % (45-73); PLT CLUMP 1; Red Blood Count 3.54 X10*6/uL (4.60-5.80); Red Cell Distribution Width 15.2 % (11.0-16.0); SCAN SMEAR FLAG 1
[2022-04-27] MEDS: Insulin Lispro 100 UNIT/ML 3 ML VIAL 15 UNIT SUBCUT ×3 (08:00→16:40)
[2022-04-27] MEDS: Furosemide 40 MG TABLET PO ×2 (08:01→16:18)
[2022-04-27] MEDS: Gabapentin 600 MG TABLET PO ×3 (08:01→20:34)
[2022-04-27] MEDS: cloNIDine HCL 0.2 MG TABLET PO ×3 (08:01→20:34)
[2022-04-27] MEDS: methADONE HCl 20 MG/2 ML ORAL.CONC 65 MG PO (08:01)
[2022-04-27] MEDS: QUEtiapine Fumarate 100 MG TABLET PO ×2 (08:01→20:35)
[2022-04-27] MEDS: clonazePAM 1 MG TABLET PO ×2 (08:11→20:47)
[2022-04-27 08:15] LABS: Platelet Count 112 X10*3/uL (160-400); White Blood Count 2.8 X10*3/uL (4.8-10.8)
[2022-04-27 08:16] LABS: SLIDE REVIEW VERIFIED
--- NOTE | 2022-04-27 08:31 | P.PNGS_ITS ---
Subjective Subjective Date of Service: 04/27/22 Interval history: no new complaints no fever overnight Physical Exam Vital Signs: Vital Signs: Last Vital Signs Temp 98.4 F 04/27/22 07:00 Pulse 72 04/27/22 07:00 Resp 18 04/27/22 07:00 BP 119/58 L 04/27/22 07:00 Pulse Ox 94 04/27/22 07:00 O2 Del Method 04/27/22 07:00 O2 Flow Rate 2 04/27/22 07:00 BMI result Body Mass Index 36.0 Const: General: comfortable and no acute distress Resp: Effort & Inspection: normal respiratory effort Cardio: Rate: regular rate GI: Palpation (GI): Soft to palpation Extrem: Other: left foot - debridement site clean with small patches of nonviable skin on the edges, no pus cellulitis much improved, edema better Objective Data Active Medications Acetaminophen (Acetaminophen 325 Mg Tablet) 650 mg PO Q6H PRN PRN Reason: Pain, Mild (Pain Scale 1-3) Atorvastatin Calcium (Atorvastatin Calcium 40 Mg Tablet) 40 mg PO BEDTIME [facility] Last Admin: 04/26/22 20:38 Dose: 40 mg Documented By: FADUMO Clonazepam (Clonazepam 1 Mg Tablet) 1 mg PO BID PRN PRN Reason: anxiety Last Admin: 04/27/22 08:11 Dose: 1 mg Documented By: REY Clonidine HCl (Clonidine Hcl 0.2 Mg Tablet) 0.2 mg PO TID [facility]; Protocol Last Admin: 04/27/22 08:01 Dose: 0.2 mg Documented By: REY Dextrose (Dextrose 50 % 25 Gm/50 Ml Syringe) 25 gm IVPUSH Q15M PRN; Protocol PRN Reason: per Hypoglycemia Standing Ord. Docusate Sodium (Docusate Sodium 100 Mg Capsule) 100 mg PO DAILY PRN PRN Reason: Constipation Enoxaparin Sodium (Enoxaparin Sodium 40 Mg/0.4 Ml Syringe) 40 mg SUBCUT Q24H [facility] Last Admin: 04/26/22 20:36 Dose: Not Given Documented By: FADUMO Non-Admin Reason: Patient Refused Furosemide (Furosemide 40 Mg Tablet) 40 mg PO BID@0800,1700 [facility]; Protocol Last Admin: 04/27/22 08:01 Dose: 40 mg Documented By: REY Gabapentin (Gabapentin 600 Mg Tablet) 600 mg PO TID [facility] Last Admin: 04/27/22 08:01 Dose: 600 mg Documented By: REY Glucose (Glucose Gel 15 Gm Gel..Gram.) 15 gm PO Q15M PRN; Protocol PRN Reason: per Hypoglycemia Standing Ord. Cefepime HCl 2 gm/ Sodium (Chloride) 50 mls @ 100 mls/hr IV Q8H [facility] Last Admin: 04/27/22 08:02 Dose: 100 mls/hr Documented By: REY Vancomycin HCl 1,000 mg/ (Sodium Chloride) 270 mls @ 270 mls/hr IV Q12H [facility] Insulin Glargine (Insulin Glargine,Hum.Rec.Anlog 100 Unit/Ml 10 Ml Vial) 120 unit SUBCUT BEDTIME [facility] Last Admin: 04/26/22 20:34 Dose: 120 unit Documented By: FADUMO Insulin Human Lispro (Insulin Lispro 100 Unit/Ml 3 Ml Vial) 15 unit SUBCUT TIDWM [facility] Last Admin: 04/27/22 08:00 Dose: 15 unit Documented By: REY Insulin Human Lispro (Insulin Lispro 100 Unit/Ml 3 Ml Vial) 0 unit SUBCUT QIDACHS [facility]; Protocol Last Admin: 04/27/22 08:03 Dose: Not Given Documented By: REY Non-Admin Reason: Duplicate Order Methadone HCl (Methadone Hcl 20 Mg/2 Ml Oral.Conc) 65 mg PO DAILY [facility] Last Admin: 04/27/22 08:01 Dose: 65 mg Documented By: REY Ondansetron HCl (Ondansetron Hcl 4 Mg/2 Ml Vial) 4 mg IVPUSH Q8H PRN PRN Reason: Nausea and Vomiting Oxycodone HCl (Oxycodone Hcl Immed Release 5 Mg Tablet) 10 mg PO Q4H PRN PRN Reason: Pain, Moderate (Pain Scale 4-6 Last Admin: 04/26/22 20:44 Dose: 10 mg Documented By: FADUMO Pharmacy Consult (Consult Rx Perform Med Rec) 1 each MISCELLANE ONCE PRN PRN Reason: Consult order Pharmacy Consult (Consult Rx Vancomycin Dosing) 1 each MISCELLANE DAILY PRN PRN Reason: Consult order Pharmacy Consult (Consult Rx Perform Med Rec) 1 each MISCELLANE ONCE PRN PRN Reason: Consult order Quetiapine Fumarate (Quetiapine Fumarate 100 Mg Tablet) 100 mg PO BID [facility] Last Admin: 04/27/22 08:01 Dose: 100 mg Documented By: REY Sodium Chloride (0.9 % Sodium Chloride Flush 3 Ml Syringe) 3 ml IVFLUSH QSHIFT [facility] Last Admin: 04/27/22 08:02 Dose: 3 ml Documented By: REY Labs CBC & Chem 7: 04/27/22 07:04 04/26/22 06:11 Labs: Laboratory Results - last 24 hr 04/26/22 04/26/22 04/26/22 11:10 15:41 19:40 MCV MCH MCHC RDW Plt Count MPV Immature Gran % (Auto) Neut % (Auto) Lymph % (Auto) [place] % (Auto) Eos % (Auto) Baso % (Auto) Lymph # (Auto) [place] # (Auto) Eos # (Auto) Baso # (Auto) Abs Immat Gran (auto) Absolute Neuts (auto) Absolute Nucleated RBC Nucleated RBC % (auto) Smear Tech's Comments POC Glucose 248 H 90 295 H 04/27/22 04/27/22 07:04 07:08 MCV 85.3 MCH 27.4 MCHC 32.1 RDW 15.2 Plt Count 112 L MPV 11.4 Immature Gran % (Auto) 0.7 H Neut % (Auto) 55.2 Lymph % (Auto) 27.2 [place] % (Auto) 11.8 H Eos % (Auto) 4.7 H Baso % (Auto) 0.4 Lymph # (Auto) 0.8 L [place] # (Auto) 0.3 Eos # (Auto) 0.1 Baso # (Auto) 0.0 Abs Immat Gran (auto) 0.02 Absolute Neuts (auto) 1.5 L Absolute Nucleated RBC 0.000 Nucleated RBC % (auto) 0.0 Smear Tech's Comments VERIFIED POC Glucose 398 H* Microbiology Microbiology Results: Microbiology 04/25/22 18:58 Blood Culture - Preliminary Blood - Venous No growth after 24 hours. 04/25/22 18:58 Blood Culture - Preliminary Blood - Venous No growth after 24 hours. Procedures Date of Service Date of Service: 04/27/22 Progress Note: A&P Assessment and plan (1) Diabetic ulcer of right foot: Status: Acute Assessment and Plan: nuclear scan not highly suggestive of osteomyelitis I debrided more tissue this morning to remove nonviable skin using fine scissors silver alginate dressings were applied foot wrapped in [place]ore[place] roll continue same wound care daily blood sugars elevated this morning at 380 - need good blood sugar control for healing Time Spent With Patient Time: Total time spent is greater than 50% in coordination of care (as documented) at patient's floor/unit and/or counseling patient: Quality Stroke Does the patient have a stroke diagnosis?: No VTE Prior VTE?: No VTE Risk Level:: Medical - moderate - high VTE Device Contraindication: Treatment Not Indicated VTE Drug Contraindication: N/A - Med Ordered
--- NOTE | 2022-04-27 09:16 | HO.ADDICT_ITS ---
History of Present Illness Date of Service: 04/26/2022 Chief Complaint: Diabetic foot wound Reason for Consult: methadone dosing HPI Narrative: Patient is a 51 year old male with history of OUD, DM currently medically admitted with osteomyelitis. At time of admission patient reported taking 140mg methadone QD. Medication reconciliation completed by pharmacy stated that patient had not connected to OTP since discharge from [facility] last month. Patient reported buying methadone on the street. Chart reviewed and patient seen in room 384. Awake, alert, pleasant and engaged in interview. He reports that he has been buying methadone from a friend who receives take home bottles (115mg). Most recent admission was at [facility] where it was verified by RN that patient received 100mg methadone last dose, 04/21/22. Patient received methadone 50mg due to number of days missed. He appeared comfortable, no withdrawal sx reported or observed. He states that his plan is to continue with methadone outpatient. At time of interview, it appeared disposition was to SNF to continue IV abx. Review of Systems Constitutional: Reports as per HPI Diagnostics Vital Signs (24Hr): Vital Signs - 24 hr 04/26/22 11:06 04/26/22 15:15 04/26/22 19:18 Temperature 96.9 F 97.8 F 98.1 F Pulse Rate 79 75 72 Respiratory Rate 16 18 18 Blood Pressure 116/64 117/66 137/68 Pulse Oximetry 96 100 96 Oxygen Delivery Method Room Air Nasal Cannula Nasal Cannula Oxygen Flow Rate 2 2 04/26/22 23:44 04/27/22 03:11 04/27/22 07:00 Temperature 98.4 F 98.8 F 98.4 F Pulse Rate 75 73 72 Respiratory Rate 18 18 18 Blood Pressure 115/59 L 121/66 119/58 L Pulse Oximetry 91 L 98 94 Oxygen Delivery Method Room Air Nasal Cannula Nasal Cannula Oxygen Flow Rate 2 2 BMI result Body Mass Index 36.0 Labs Results: 04/27/22 07:04 04/26/22 06:11 Labs: Laboratory Results - last 48 hr 04/25/22 04/25/22 04/25/22 18:58 18:58 18:58 WBC 5.2 RBC 3.46 L Hgb 9.5 L Hct 29.5 L MCV 85.3 MCH 27.5 MCHC 32.2 RDW 15.3 Plt Count 128 L MPV 9.8 Immature Gran % (Auto) 0.4 Neut % (Auto) 67.8 Lymph % (Auto) 21.6 [place] % (Auto) 9.0 Eos % (Auto) 1.0 Baso % (Auto) 0.2 Lymph # (Auto) 1.1 L [place] # (Auto) 0.5 Eos # (Auto) 0.1 Baso # (Auto) 0.0 Abs Immat Gran (auto) 0.02 Absolute Neuts (auto) 3.5 Absolute Nucleated RBC 0.000 Nucleated RBC % (auto) 0.0 Smear Tech's Comments ESR Sodium 135 Potassium 4.8 Chloride 101 Carbon Dioxide 24 Anion Gap 15 BUN 21 H Creatinine 1.04 Estim Creat Clear Calc 114.6 Estimated GFR > 60 POC Glucose Random Glucose 309 H Lactic Acid 0.8 Calcium 8.4 Total Bilirubin 0.3 Direct Bilirubin 0.2 AST 21 D ALT 18 Alkaline Phosphatase 206 H D Total Protein 6.8 Albumin 3.3 L Lipase 21 COVID-19 (NACHO) COVID-[employer] 04/25/22 04/25/22 04/26/22 18:58 18:59 06:11 WBC 4.8 RBC 3.76 L Hgb 10.6 L Hct 33.1 L MCV 88.0 MCH 28.2 MCHC 32.0 RDW 15.4 Plt Count 114 L MPV 10.9 Immature Gran % (Auto) 0.6 H Neut % (Auto) 72.0 Lymph % (Auto) 15.7 L [place] % (Auto) 10.0 Eos % (Auto) 1.5 Baso % (Auto) 0.2 Lymph # (Auto) 0.8 L [place] # (Auto) 0.5 Eos # (Auto) 0.1 Baso # (Auto) 0.0 Abs Immat Gran (auto) 0.03 Absolute Neuts (auto) 3.5 Absolute Nucleated RBC 0.000 Nucleated RBC % (auto) 0.0 Smear Tech's Comments ESR 79 H Sodium Potassium Chloride Carbon Dioxide Anion Gap BUN Creatinine Estim Creat Clear Calc Estimated GFR POC Glucose Random Glucose Lactic Acid Calcium Total Bilirubin Direct Bilirubin AST ALT Alkaline Phosphatase Total Protein Albumin Lipase COVID-19 (NACHO) Negative COVID-[employer] [facility] Com See Note 04/26/22 04/26/22 04/26/22 06:11 07:12 11:10 WBC RBC Hgb Hct MCV MCH MCHC RDW Plt Count MPV Immature Gran % (Auto) Neut % (Auto) Lymph % (Auto) [place] % (Auto) Eos % (Auto) Baso % (Auto) Lymph # (Auto) [place] # (Auto) Eos # (Auto) Baso # (Auto) Abs Immat Gran (auto) Absolute Neuts (auto) Absolute Nucleated RBC Nucleated RBC % (auto) Smear Tech's Comments ESR Sodium 133 L Potassium 4.8 Chloride 97 Carbon Dioxide 24 Anion Gap 17 BUN 15 Creatinine 0.93 Estim Creat Clear Calc 128.1 Estimated GFR > 60 POC Glucose 291 H 248 H Random Glucose 336 H Lactic Acid Calcium 8.4 Total Bilirubin Direct Bilirubin AST ALT Alkaline Phosphatase Total Protein Albumin Lipase COVID-19 (NACHO) COVID-19 [employer] 04/26/22 04/26/22 04/27/22 15:41 19:40 07:04 WBC 2.8 L RBC 3.54 L Hgb 9.7 L Hct 30.2 L MCV 85.3 MCH 27.4 MCHC 32.1 RDW 15.2 Plt Count 112 L MPV 11.4 Immature Gran % (Auto) 0.7 H Neut % (Auto) 55.2 Lymph % (Auto) 27.2 [place] % (Auto) 11.8 H Eos % (Auto) 4.7 H Baso % (Auto) 0.4 Lymph # (Auto) 0.8 L [place] # (Auto) 0.3 Eos # (Auto) 0.1 Baso # (Auto) 0.0 Abs Immat Gran (auto) 0.02 Absolute Neuts (auto) 1.5 L Absolute Nucleated RBC 0.000 Nucleated RBC % (auto) 0.0 Smear Tech's Comments VERIFIED ESR Sodium Potassium Chloride Carbon Dioxide Anion Gap BUN Creatinine Estim Creat Clear Calc Estimated GFR POC Glucose 90 295 H Random Glucose Lactic Acid Calcium Total Bilirubin Direct Bilirubin AST ALT Alkaline Phosphatase Total Protein Albumin Lipase COVID-19 (NACHO) COVID-19 [employer] 04/27/22 07:08 WBC RBC Hgb Hct MCV MCH MCHC RDW Plt Count MPV Immature Gran % (Auto) Neut % (Auto) Lymph % (Auto) [place] % (Auto) Eos % (Auto) Baso % (Auto) Lymph # (Auto) [place] # (Auto) Eos # (Auto) Baso # (Auto) Abs Immat Gran (auto) Absolute Neuts (auto) Absolute Nucleated RBC Nucleated RBC % (auto) Smear Tech's Comments ESR Sodium Potassium Chloride Carbon Dioxide Anion Gap BUN Creatinine Estim Creat Clear Calc Estimated GFR POC Glucose 398 H* Random Glucose Lactic Acid Calcium Total Bilirubin Direct Bilirubin AST ALT Alkaline Phosphatase Total Protein Albumin Lipase COVID-19 (NACHO) COVID-19 Clin Com Imaging Radiology Impressions: ITS Impressions Chest X-Ray 04/25/22 17:20 IMPRESSION: 1. Chronic stable pulmonary changes as described above. No acute intrathoracic disease. 2. Chronic deformities and postsurgical changes both feet. No acute finding Foot X-Ray 04/25/22 17:20 IMPRESSION: 1. Chronic stable pulmonary changes as described above. No acute intrathoracic disease. 2. Chronic deformities and postsurgical changes both feet. No acute finding Foot X-Ray 04/25/22 17:20 IMPRESSION: 1. Chronic stable pulmonary changes as described above. No acute intrathoracic disease. 2. Chronic deformities and postsurgical changes both feet. No acute finding Tibia/Fibula X-Ray 04/25/22 17:20 IMPRESSION: 1. Chronic stable pulmonary changes as described above. No acute intrathoracic disease. 2. Chronic deformities and postsurgical changes both feet. No acute finding Tibia/Fibula X-Ray 04/25/22 17:20 IMPRESSION: 1. Chronic stable pulmonary changes as described above. No acute intrathoracic disease. 2. Chronic deformities and postsurgical changes both feet. No acute finding Bone Scan Nuclear Medicine 04/26/22 14:25 IMPRESSION: Focal increased activity left foot, base of fourth and fifth digits. On left foot x-ray there appears to be fusion between the the base of fourth digit and tarsal bone with mild degenerative arthritic changes likely cause for increased activity. No abnormal activity seen in the amputated right foot to suspect any osteomyelitis. Mild increased activity in both feet on the first and second phase of bone scan likely related to cellulitis or hyperemia. Mental Status Exam Mental Status Exam Patient Appearance: Appropriate Mood Description: Cheerful Affect Description: Cheerful Thought Process: Goal Oriented Judgement: Fair Medications Medications Current Medications Acetaminophen (Acetaminophen 325 Mg Tablet) 650 mg PO Q6H PRN PRN Reason: Pain, Mild (Pain Scale 1-3) Atorvastatin Calcium (Atorvastatin Calcium 40 Mg Tablet) 40 mg PO BEDTIME [facility] Last Admin: 04/26/22 20:38 Dose: 40 mg Clonazepam (Clonazepam 1 Mg Tablet) 1 mg PO BID PRN PRN Reason: anxiety Last Admin: 04/27/22 08:11 Dose: 1 mg Clonidine HCl (Clonidine Hcl 0.2 Mg Tablet) 0.2 mg PO TID [facility]; Protocol Last Admin: 04/27/22 08:01 Dose: 0.2 mg Dextrose (Dextrose 50 % 25 Gm/50 Ml Syringe) 25 gm IVPUSH Q15M PRN; Protocol PRN Reason: per Hypoglycemia Standing Ord. Docusate Sodium (Docusate Sodium 100 Mg Capsule) 100 mg PO DAILY PRN PRN Reason: Constipation Enoxaparin Sodium (Enoxaparin Sodium 40 Mg/0.4 Ml Syringe) 40 mg SUBCUT Q24H [facility] Last Admin: 04/26/22 20:36 Dose: Not Given Furosemide (Furosemide 40 Mg Tablet) 40 mg PO BID@0800,1700 [facility]; Protocol Last Admin: 04/27/22 08:01 Dose: 40 mg Gabapentin (Gabapentin 600 Mg Tablet) 600 mg PO TID [facility] Last Admin: 04/27/22 08:01 Dose: 600 mg Glucose (Glucose Gel 15 Gm Gel..Gram.) 15 gm PO Q15M PRN; Protocol PRN Reason: per Hypoglycemia Standing Ord. Cefepime HCl 2 gm/ Sodium (Chloride) 50 mls @ 100 mls/hr IV Q8H [facility] Last Infusion: 04/27/22 08:41 Dose: Infused Vancomycin HCl 1,000 mg/ (Sodium Chloride) 270 mls @ 270 mls/hr IV Q12H [facility] Insulin Glargine (Insulin Glargine,Hum.Rec.Anlog 100 Unit/Ml 10 Ml Vial) 120 unit SUBCUT BEDTIME [facility] Last Admin: 04/26/22 20:34 Dose: 120 unit Insulin Human Lispro (Insulin Lispro 100 Unit/Ml 3 Ml Vial) 15 unit SUBCUT TIDWM [facility] Last Admin: 04/27/22 08:00 Dose: 15 unit Insulin Human Lispro (Insulin Lispro 100 Unit/Ml 3 Ml Vial) 0 unit SUBCUT QIDACHS [facility]; Protocol Last Admin: 04/27/22 08:03 Dose: Not Given Methadone HCl (Methadone Hcl 20 Mg/2 Ml Oral.Conc) 65 mg PO DAILY [facility] Last Admin: 04/27/22 08:01 Dose: 65 mg Ondansetron HCl (Ondansetron Hcl 4 Mg/2 Ml Vial) 4 mg IVPUSH Q8H PRN PRN Reason: Nausea and Vomiting Oxycodone HCl (Oxycodone Hcl Immed Release 5 Mg Tablet) 10 mg PO Q4H PRN PRN Reason: Pain, Moderate (Pain Scale 4-6 Last Admin: 04/26/22 20:44 Dose: 10 mg Pharmacy Consult (Consult Rx Perform Med Rec) 1 each MISCELLANE ONCE PRN PRN Reason: Consult order Pharmacy Consult (Consult Rx Vancomycin Dosing) 1 each MISCELLANE DAILY PRN PRN Reason: Consult order Pharmacy Consult (Consult Rx Perform Med Rec) 1 each MISCELLANE ONCE PRN PRN Reason: Consult order Quetiapine Fumarate (Quetiapine Fumarate 100 Mg Tablet) 100 mg PO BID [facility] Last Admin: 04/27/22 08:01 Dose: 100 mg Sodium Chloride (0.9 % Sodium Chloride Flush 3 Ml Syringe) 3 ml IVFLUSH QSHIFT [facility] Last Admin: 04/27/22 08:02 Dose: 3 ml Allergies Allergies Allergy/AdvReac Type Severity Reaction Status Date / Time prochlorperazine Allergy Intermediate Hives Verified 03/22/22 10:13 [From Compazine] aspirin [ASA] Allergy Unknown HIVES Unverified 02/20/20 16:18 naproxen [From NAPROSYN] Allergy Unknown HIVES Unverified 02/20/20 16:18 NSAIDS (Non-Steroidal Allergy Unknown HIVES Unverified 02/20/20 16:18 Anti-Inflamma [NSAIDS (NON-STEROIDAL ANTI-INFLAMMA] Penicillins [PENICILLINS] Allergy Unknown HIVES Unverified 02/20/20 16:18 Assessment & Plan Assessment & Plan (1) Opioid use disorder: Status: Acute Code(s): F11.90 - Opioid use, unspecified, uncomplicated Assessment and Plan: * methadone dose increased to 65mg on 04/27 * UDS ordered * will continue to follow * RSRN to coordinate OTP referral I spent _45 minutes with the patient and/or on the patient floor today, greater than?50% of which was spent counseling/coordinating care. [facility] Past Medical History Medical History Compartment syndrome of left lower extremity Diabetes HTN (hypertension) Post-COVID chronic dyspnea Ulcer of left foot Family History Family History Other No pertinent family history Family history: reviewed and not pertinent Surgical History Surgical History Status post transmetatarsal amputation of right foot Social History Social History Household Members: None Housing: Apartment Housing Other:: reports no place to live Do you presently have visiting nurse or other home services: No Patient Tobacco Use Status: Never used Tobacco e-Cigarette/Vaping Use: Never Used Use of substances other than those prescribed or required for medical reasons: No Currently Displaying Signs/Symptoms of Drug Intoxication Withdrawal: No Have you been hit, kicked, punched, or otherwise hurt by someone within the past year? If so, by whom?: No Do you feel safe in your current relationship?: Yes Is there a partner from a previous relationship who is making you feel unsafe now?: No Are you made to feel afraid or neglected: No Advance Directives: No Advance Directives Information Provided: No Do you have thoughts of harming others: None Do you have a plan to hurt others: No Plan Recently lost weight without trying: No Nutrition Risks: No Nutritional Risk service: No Current occupational status: disabled
[2022-04-27] MEDS: vancomycin HCL 1,000 MG in 0.9 % Sodium Chloride 250 ML 270 MG IV (09:20)
[2022-04-27 10:58] VITALS: BP 115/56; PULSE 70; RESP 16; TEMP 36.1; O2SAT 93
[2022-04-27 11:24] LABS: Glucose, Whole Blood 387 mg/dL (60-115)
[2022-04-27] MEDS: Insulin Lispro 100 UNIT/ML 3 ML VIAL SUBCUT ×3 (11:34→20:36)
--- NOTE | 2022-04-27 11:41 | MHC.RECOVRN ---
Attempted to meet with pt to f/u regarding methadone titration. Pt asleep. Pt will need to be connected to an [facility]TP prior to discharge. [facility] in [place]. Will continue to follow.
--- NOTE | 2022-04-27 12:16 | MHC.CM.PN ---
PATIENT NOT RESPONDING TO ALL OF THIS NURSE RN BSN'S QUESTIONS CM NAME AND DC PLAN ON WHITE BOARD. HE DOES AGREE TO A REFERRAL TO [facility] FOR 6 WEEKS OF IV ABX HE IS ALSO AWARE THAT THIS NURSE RN BSN IS ATTEMPTING TO FIND OUT IF HE HAS A SNF BENEFIT WITH HIS INSURANCE. NO PCP AND DOES NOT FEEL THE NEED FOR ONE. CM FOLLOWING HCP IS ON FILE AND VERIFIED
[2022-04-27 15:20] LABS: Creatinine Clr Calc Pharmacy 101.8; Estimated Glomerular Filt Rate > 60
--- NOTE | 2022-04-27 15:46 | P.PNIM_ITS ---
Subjective Subjective Date of Service: 04/27/22 Interval History: No acute issues overnight. Pain control adequate Review of Systems Denies chest pain Denies shortness of breath Denies nausea vomiting diarrhea Denies fever chills Physical Exam Vital Signs: Vital Signs: Last Vital Signs Temp 97.0 F 04/27/22 10:58 Pulse 70 04/27/22 10:58 Resp 16 04/27/22 10:58 BP 115/56 L 04/27/22 10:58 Pulse Ox 93 04/27/22 10:58 O2 Del Method 04/27/22 10:58 O2 Flow Rate 2 04/27/22 10:58 BMI result Body Mass Index 36.0 Const: Other: No acute issues Resp: Other: Clear to auscultation bilaterally no rales rhonchi wheezes Cardio: Other: No S4; positive S1-S2; no S3 murmurs rubs or gallops Extrem: Other: See initial ER picture evaluation Objective Data Active Medications Acetaminophen (Acetaminophen 325 Mg Tablet) 650 mg PO Q6H PRN PRN Reason: Pain, Mild (Pain Scale 1-3) Atorvastatin Calcium (Atorvastatin Calcium 40 Mg Tablet) 40 mg PO BEDTIME [facility] Last Admin: 04/26/22 20:38 Dose: 40 mg Documented By: FADUMO Clonazepam (Clonazepam 1 Mg Tablet) 1 mg PO BID PRN PRN Reason: anxiety Last Admin: 04/27/22 08:11 Dose: 1 mg Documented By: REY Clonidine HCl (Clonidine Hcl 0.2 Mg Tablet) 0.2 mg PO TID [facility]; Protocol Last Admin: 04/27/22 14:54 Dose: 0.2 mg Documented By: REY Dextrose (Dextrose 50 % 25 Gm/50 Ml Syringe) 25 gm IVPUSH Q15M PRN; Protocol PRN Reason: per Hypoglycemia Standing Ord. Docusate Sodium (Docusate Sodium 100 Mg Capsule) 100 mg PO DAILY PRN PRN Reason: Constipation Enoxaparin Sodium (Enoxaparin Sodium 40 Mg/0.4 Ml Syringe) 40 mg SUBCUT Q24H [facility] Last Admin: 04/26/22 20:36 Dose: Not Given Documented By: FADUMO Non-Admin Reason: Patient Refused Furosemide (Furosemide 40 Mg Tablet) 40 mg PO BID@0800,1700 [facility]; Protocol Last Admin: 04/27/22 08:01 Dose: 40 mg Documented By: REY Gabapentin (Gabapentin 600 Mg Tablet) 600 mg PO TID [facility] Last Admin: 04/27/22 14:54 Dose: 600 mg Documented By: REY Glucose (Glucose Gel 15 Gm Gel..Gram.) 15 gm PO Q15M PRN; Protocol PRN Reason: per Hypoglycemia Standing Ord. Cefepime HCl 2 gm/ Sodium (Chloride) 50 mls @ 100 mls/hr IV Q8H [facility] Last Infusion: 04/27/22 08:41 Dose: 100 mls/hr Documented By: REY Vancomycin HCl 1,000 mg/ (Sodium Chloride) 270 mls @ 270 mls/hr IV Q12H [facility] Last Infusion: 04/27/22 10:25 Dose: 270 mls/hr Documented By: REY Insulin Glargine (Insulin Glargine,Hum.Rec.Anlog 100 Unit/Ml 10 Ml Vial) 120 unit SUBCUT BEDTIME [facility] Last Admin: 04/26/22 20:34 Dose: 120 unit Documented By: FADUMO Insulin Human Lispro (Insulin Lispro 100 Unit/Ml 3 Ml Vial) 15 unit SUBCUT TIDWM [facility] Last Admin: 04/27/22 11:34 Dose: 15 unit Documented By: REY Comments: Insulin Human Lispro (Insulin Lispro 100 Unit/Ml 3 Ml Vial) 0 unit SUBCUT QIDACHS [facility]; Protocol Last Admin: 04/27/22 11:34 Dose: 10 unit Documented By: REY Methadone HCl (Methadone Hcl 20 Mg/2 Ml Oral.Conc) 70 mg PO DAILY [facility] Ondansetron HCl (Ondansetron Hcl 4 Mg/2 Ml Vial) 4 mg IVPUSH Q8H PRN PRN Reason: Nausea and Vomiting Oxycodone HCl (Oxycodone Hcl Immed Release 5 Mg Tablet) 10 mg PO Q4H PRN PRN Reason: Pain, Moderate (Pain Scale 4-6 Last Admin: 04/26/22 20:44 Dose: 10 mg Documented By: FADUMO Pharmacy Consult (Consult Rx Perform Med Rec) 1 each MISCELLANE ONCE PRN PRN Reason: Consult order Pharmacy Consult (Consult Rx Vancomycin Dosing) 1 each MISCELLANE DAILY PRN PRN Reason: Consult order Pharmacy Consult (Consult Rx Perform Med Rec) 1 each MISCELLANE ONCE PRN PRN Reason: Consult order Quetiapine Fumarate (Quetiapine Fumarate 100 Mg Tablet) 100 mg PO BID [facility] Last Admin: 04/27/22 08:01 Dose: 100 mg Documented By: REY Sodium Chloride (0.9 % Sodium Chloride Flush 3 Ml Syringe) 3 ml IVFLUSH QSHIFT [facility] Last Admin: 04/27/22 08:02 Dose: 3 ml Documented By: REY Labs CBC & Chem 7: 04/27/22 07:04 04/27/22 14:26 Labs: Laboratory Results - last 24 hr 04/26/22 04/26/22 04/27/22 15:41 19:40 07:04 MCV 85.3 MCH 27.4 MCHC 32.1 RDW 15.2 Plt Count 112 L MPV 11.4 Immature Gran % (Auto) 0.7 H Neut % (Auto) 55.2 Lymph % (Auto) 27.2 [place] % (Auto) 11.8 H Eos % (Auto) 4.7 H Baso % (Auto) 0.4 Lymph # (Auto) 0.8 L [place] # (Auto) 0.3 Eos # (Auto) 0.1 Baso # (Auto) 0.0 Abs Immat Gran (auto) 0.02 Absolute Neuts (auto) 1.5 L Absolute Nucleated RBC 0.000 Nucleated RBC % (auto) 0.0 Smear Tech's Comments VERIFIED Estim Creat Clear Calc Estimated GFR POC Glucose 90 295 H 04/27/22 04/27/22 04/27/22 07:08 11:03 14:26 MCV MCH MCHC RDW Plt Count MPV Immature Gran % (Auto) Neut % (Auto) Lymph % (Auto) [place] % (Auto) Eos % (Auto) Baso % (Auto) Lymph # (Auto) [place] # (Auto) Eos # (Auto) Baso # (Auto) Abs Immat Gran (auto) Absolute Neuts (auto) Absolute Nucleated RBC Nucleated RBC % (auto) Smear Tech's Comments Estim Creat Clear Calc 101.8 Estimated GFR > 60 POC Glucose 398 H* 387 H* Microbiology Microbiology Results: Microbiology 04/25/22 18:58 Blood Culture - Preliminary Blood - Venous No growth after 24 hours. 04/25/22 18:58 Blood Culture - Preliminary Blood - Venous No growth after 24 hours. Assessment and Plan (1) Acute osteomyelitis: Status: Acute (2) Diabetes type 2 with atherosclerosis of arteries of extremities: Status: Acute (3) HTN (hypertension): Status: Acute Plan 51-year-old male with history of diabetes type 2 insulin dependent, peripheral arterial disease status post right transmetatarsal amputation, chronic wounds bilateral, polysubstance abuse, hypertension, HLD, anxiety, chronic respiratory a proxy of following COVID-19 on 2 L oxygen 26/12 comes here for worsening of the wound on the top of left foot pain? Patient was just admitted and discharged on 03/21 for a right amputated metatarsal foot ulcer was given antibiotics patient is still taking doxycycline patient says was had a small wound on the top of the left foot when he was admitted which got worse in last 3 days it just opened up no fever no chills patient unable to follow up with wound clinic since discharge on 03/21. Admitted for further workup 1. Acute osteomyelitis (bone scan pending) -continue vancomycin/cefepime -ID consult/bone scan pending... Recommend 6 weeks IV antibiotics. Patient willing to be placed free antibiotics. Search underway 2. DM 2 -continue long-acting along with lispro sliding scale -adjust as indicated 3. Hypertension -acceptable control on current therapies -adjust as indicated Full code Lovenox Patient will require ongoing hospitalization for IV antibiotics to treat acute osteomyelitis Quality Stroke Does the patient have a stroke diagnosis?: No VTE Prior VTE?: No VTE Risk Level:: Medical - moderate - high VTE Device Contraindication: Treatment Not Indicated VTE Drug Contraindication: N/A - Med Ordered
[2022-04-27 15:57] VITALS: BP 125/58; PULSE 63; RESP 18; TEMP 36.3; O2SAT 99
[2022-04-27 16:30] LABS: Glucose, Whole Blood 388 mg/dL (60-115)
--- NOTE | 2022-04-27 16:32 | PC.NURSE ---
Patient alert and oriented , IV to left AC infiltrated , painfull and burning when flushing . Pt is refusing pheripheral IV at this time , stared that he was stuck so many times and he is refusing the IV at this time . Pt is scheduled for the PICC line for Monday for antibiotics infusion . Made DR. Barnett aware
[2022-04-27 19:38] VITALS: BP 131/70; PULSE 66; RESP 14; TEMP 36.1; O2SAT 97
[2022-04-27 19:44] LABS: Glucose, Whole Blood 343 mg/dL (60-115)
[2022-04-27] MEDS: Atorvastatin Calcium 40 MG TABLET PO (20:34)
[2022-04-27] MEDS: Insulin Glargine,Hum.rec.anlog 100 UNIT/ML 10 ML VIAL 120 UNIT SUBCUT (20:36)
[2022-04-27] MEDS: oxyCODONE HCl Immed Release 5 MG TABLET 10 MG PO (20:47)
[2022-04-28] VITALS: BP 115/62; PULSE 67; RESP 18; TEMP 36.1; O2SAT 97
[2022-04-28 04:00] VITALS: BP 112/58; PULSE 60; RESP 18; TEMP 36.1; O2SAT 96
[2022-04-28 07:36] VITALS: BP 119/70; PULSE 61; RESP 18; TEMP 36; O2SAT 96
[2022-04-28 07:46] LABS: Glucose, Whole Blood 342 mg/dL (60-115)
[2022-04-28] MEDS: Furosemide 40 MG TABLET PO ×2 (07:56→16:31)
[2022-04-28] MEDS: clonazePAM 1 MG TABLET PO ×2 (07:56→20:50)
[2022-04-28] MEDS: Linezolid 600 MG TABLET PO (07:56)
[2022-04-28] MEDS: Gabapentin 600 MG TABLET PO ×3 (07:56→20:50)
[2022-04-28] MEDS: QUEtiapine Fumarate 100 MG TABLET PO ×2 (07:56→20:49)
[2022-04-28] MEDS: cloNIDine HCL 0.2 MG TABLET PO ×3 (07:56→20:49)
[2022-04-28] MEDS: Insulin Lispro 100 UNIT/ML 3 ML VIAL 15 UNIT SUBCUT ×3 (07:56→16:30)
[2022-04-28] MEDS: Insulin Lispro 100 UNIT/ML 3 ML VIAL SUBCUT ×4 (07:57→20:51)
[2022-04-28] MEDS: methADONE HCl 20 MG/2 ML ORAL.CONC 70 MG PO (07:58)
[2022-04-28] MEDS: oxyCODONE HCl Immed Release 5 MG TABLET 10 MG PO ×3 (08:04→20:49)
--- NOTE | 2022-04-28 10:46 | HO.PM.IMPN ---
Subjective Subjective Date of Service: 04/28/22 Interval History: No acute issues overnight. Pain control adequate... Refusing IV access pending PICC line Review of Systems Denies chest pain Denies shortness of breath Denies nausea vomiting diarrhea Denies fever chills Physical Exam Vital Signs: Vital Signs: Last Vital Signs Temp 96.8 F 04/28/22 07:36 Pulse 61 04/28/22 07:36 Resp 18 04/28/22 07:36 BP 119/70 04/28/22 07:36 Pulse Ox 96 04/28/22 07:36 O2 Del Method 04/28/22 07:36 O2 Flow Rate 2 04/28/22 07:36 BMI result Body Mass Index 36.0 Const: Other: No acute issues Resp: Other: Clear to auscultation bilaterally no rales rhonchi wheezes Cardio: Other: No S4; positive S1-S2; no S3 murmurs rubs or gallops Extrem: Other: See initial ER picture evaluation Objective Data Active Medications Acetaminophen (Acetaminophen 325 Mg Tablet) 650 mg PO Q6H PRN PRN Reason: Pain, Mild (Pain Scale 1-3) Atorvastatin Calcium (Atorvastatin Calcium 40 Mg Tablet) 40 mg PO BEDTIME [facility] Last Admin: 04/27/22 20:34 Dose: 40 mg Documented By: PATRICIO Clonazepam (Clonazepam 1 Mg Tablet) 1 mg PO BID PRN PRN Reason: anxiety Last Admin: 04/28/22 07:56 Dose: 1 mg Documented By: REY Clonidine HCl (Clonidine Hcl 0.2 Mg Tablet) 0.2 mg PO TID [facility]; Protocol Last Admin: 04/28/22 07:56 Dose: 0.2 mg Documented By: REY Dextrose (Dextrose 50 % 25 Gm/50 Ml Syringe) 25 gm IVPUSH Q15M PRN; Protocol PRN Reason: per Hypoglycemia Standing Ord. Docusate Sodium (Docusate Sodium 100 Mg Capsule) 100 mg PO DAILY PRN PRN Reason: Constipation Enoxaparin Sodium (Enoxaparin Sodium 40 Mg/0.4 Ml Syringe) 40 mg SUBCUT Q24H [facility] Last Admin: 04/27/22 20:41 Dose: Not Given Documented By: PATRICIO Non-Admin Reason: Patient Refused Furosemide (Furosemide 40 Mg Tablet) 40 mg PO BID@0800,1700 [facility]; Protocol Last Admin: 04/28/22 07:56 Dose: 40 mg Documented By: REY Gabapentin (Gabapentin 600 Mg Tablet) 600 mg PO TID [facility] Last Admin: 04/28/22 07:56 Dose: 600 mg Documented By: REY Glucose (Glucose Gel 15 Gm Gel..Gram.) 15 gm PO Q15M PRN; Protocol PRN Reason: per Hypoglycemia Standing Ord. Insulin Glargine (Insulin Glargine,Hum.Rec.Anlog 100 Unit/Ml 10 Ml Vial) 120 unit SUBCUT BEDTIME [facility] Last Admin: 04/27/22 20:36 Dose: 120 unit Documented By: PATRICIO Insulin Human Lispro (Insulin Lispro 100 Unit/Ml 3 Ml Vial) 15 unit SUBCUT TIDWM [facility] Last Admin: 04/28/22 07:56 Dose: 15 unit Documented By: REY Insulin Human Lispro (Insulin Lispro 100 Unit/Ml 3 Ml Vial) 0 unit SUBCUT QIDACHS [facility]; Protocol Last Admin: 04/28/22 07:57 Dose: 8 unit Documented By: REY Levofloxacin (Levofloxacin 750 Mg Tablet) 750 mg PO Q24H [facility] Stop: 04/30/22 09:01 Methadone HCl (Methadone Hcl 20 Mg/2 Ml Oral.Conc) 70 mg PO DAILY [facility] Last Admin: 04/28/22 07:58 Dose: 70 mg Documented By: REY Ondansetron HCl (Ondansetron Hcl 4 Mg/2 Ml Vial) 4 mg IVPUSH Q8H PRN PRN Reason: Nausea and Vomiting Oxycodone HCl (Oxycodone Hcl Immed Release 5 Mg Tablet) 10 mg PO Q4H PRN PRN Reason: Pain, Moderate (Pain Scale 4-6 Last Admin: 04/28/22 08:04 Dose: 10 mg Documented By: REY Pharmacy Consult (Consult Rx Perform Med Rec) 1 each MISCELLANE ONCE PRN PRN Reason: Consult order Pharmacy Consult (Consult Rx Perform Med Rec) 1 each MISCELLANE ONCE PRN PRN Reason: Consult order Quetiapine Fumarate (Quetiapine Fumarate 100 Mg Tablet) 100 mg PO BID [facility] Last Admin: 04/28/22 07:56 Dose: 100 mg Documented By: REY Sodium Chloride (0.9 % Sodium Chloride Flush 3 Ml Syringe) 3 ml IVFLUSH QSHIFT [facility] Last Admin: 04/28/22 07:59 Dose: Not Given Documented By: REY Non-Admin Reason: No Access Labs CBC & Chem 7: 04/27/22 07:04 04/27/22 14:26 Labs: Laboratory Results - last 24 hr 04/27/22 04/27/22 04/27/22 11:03 14:26 15:59 Estim Creat Clear Calc 101.8 Estimated GFR > 60 POC Glucose 387 H* 388 H* 04/27/22 04/28/22 19:40 07:40 Estim Creat Clear Calc Estimated GFR POC Glucose 343 H 342 H Microbiology Microbiology Results: Microbiology 04/25/22 18:58 Blood Culture - Preliminary Blood - Venous No growth after 48 hours. 04/25/22 18:58 Blood Culture - Preliminary Blood - Venous No growth after 48 hours. Assessment and Plan (1) Acute osteomyelitis: Status: Acute (2) Diabetes type 2 with atherosclerosis of arteries of extremities: Status: Acute (3) HTN (hypertension): Status: Acute Plan 51-year-old male with history of diabetes type 2 insulin dependent, peripheral arterial disease status post right transmetatarsal amputation, chronic wounds bilateral, polysubstance abuse, hypertension, HLD, anxiety, chronic respiratory a proxy of following COVID-19 on 2 L oxygen 26/12 comes here for worsening of the wound on the top of left foot pain? Patient was just admitted and discharged on 03/21 for a right amputated metatarsal foot ulcer was given antibiotics patient is still taking doxycycline patient says was had a small wound on the top of the left foot when he was admitted which got worse in last 3 days it just opened up no fever no chills patient unable to follow up with wound clinic since discharge on 03/21. Admitted for further workup 1. Acute osteomyelitis (bone scan pending) -refusing IV access pending PICC line; will provide Levaquin and linezolid to bridge -PICC line in a.m. 2. DM 2 -continue long-acting along with lispro sliding scale -adjust as indicated 3. Hypertension -acceptable control on current therapies -adjust as indicated Full code Lovenox Patient will require ongoing hospitalization for IV antibiotics to treat acute osteomyelitis Quality Stroke Does the patient have a stroke diagnosis?: No VTE Prior VTE?: No VTE Risk Level:: Medical - moderate - high VTE Device Contraindication: Treatment Not Indicated VTE Drug Contraindication: N/A - Med Ordered
[2022-04-28 11:07] VITALS: BP 117/65; PULSE 73; RESP 18; TEMP 36.1; O2SAT 98
[2022-04-28] MEDS: levoFLOXacin 750 MG TABLET PO (11:26)
[2022-04-28 11:36] LABS: Glucose, Whole Blood 273 mg/dL (60-115)
[2022-04-28 16:05] VITALS: BP 121/71; PULSE 79; RESP 20; TEMP 36.5; O2SAT 96
[2022-04-28 16:21] LABS: Glucose, Whole Blood 283 mg/dL (60-115)
--- NOTE | 2022-04-28 17:10 | PC.NURSE ---
report received from morning RN, pt A+O, emergency medical dispatcher per AUG. Call toth within reach, safety precautions taken, encouraged to call for assistance.
[2022-04-28 20:00] VITALS: BP 115/64; PULSE 80; RESP 17; TEMP 36.4; O2SAT 96
--- NOTE | 2022-04-28 20:00 | PC.NURSE ---
Pt removed dressing on the right foot, scant bleeding noted on the sheet. Pt stated he needs the wound to air out . Pt did not want new dressing at this time.
[2022-04-28 20:24] LABS: Glucose, Whole Blood 243 mg/dL (60-115)
[2022-04-28] MEDS: Insulin Glargine,Hum.rec.anlog 100 UNIT/ML 10 ML VIAL 120 UNIT SUBCUT (20:50)
[2022-04-28] MEDS: Atorvastatin Calcium 40 MG TABLET PO (20:50)
[2022-04-29] VITALS: BP 114/62; PULSE 65; RESP 18; TEMP 36.4; O2SAT 97
[2022-04-29 04:00] VITALS: BP 121/72; PULSE 70; RESP 18; TEMP 36.5; O2SAT 98
[2022-04-29 06:41] LABS: Basophils Percent Auto 0.6 % (0-2); Eosinophils Absolute Auto 0.2 X10*3/uL (0.0-0.4); Eosinophils Percent Auto 5.5 % (0-4); Hematocrit 36.1 % (42.0-52.0); Hemoglobin 11.3 g/dl (14.0-18.0); Imm Gran Abs Auto 0.01 X10*3/uL (0.00-0.03); Imm Gran Pct Auto 0.3 % (0.0-0.4); Lymphocytes Absolute Auto 1.3 X10*3/uL (1.2-4.9); Lymphocytes Percent Auto 39.3 % (20-40); MANUAL DIFF FLAG NO; Mean Corpuscular HGB Conc 31.3 g/dl (31.0-36.0); Mean Corpuscular Hemoglobin 27.7 pg (27.0-33.0); Mean Corpuscular Volume 88.5 fL (80.0-98.0); Mean Platelet Volume 11.7 fL (9.4-12.4); Monocytes Absolute Auto 0.5 X10*3/uL (0.1-1.2); Monocytes Percent Auto 14.1 % (2-11); Neutrophils Absolute Auto 1.3 x10*3/uL (2.0-8.3); Neutrophils Percent Auto 40.2 % (45-73); Platelet Count 133 X10*3/uL (160-400); Red Blood Count 4.08 X10*6/uL (4.60-5.80); Red Cell Distribution Width 14.8 % (11.0-16.0); White Blood Count 3.3 X10*3/uL (4.8-10.8)
[2022-04-29] MEDS: oxyCODONE HCl Immed Release 5 MG TABLET 10 MG PO ×3 (07:28→19:58)
[2022-04-29] MEDS: cloNIDine HCL 0.2 MG TABLET PO ×3 (07:29→19:42)
[2022-04-29] MEDS: QUEtiapine Fumarate 100 MG TABLET PO ×2 (07:30→19:42)
[2022-04-29] MEDS: methADONE HCl 20 MG/2 ML ORAL.CONC 70 MG PO (07:30)
[2022-04-29] MEDS: Furosemide 40 MG TABLET PO ×2 (07:30→17:34)
[2022-04-29] MEDS: levoFLOXacin 750 MG TABLET PO (07:30)
[2022-04-29] MEDS: Gabapentin 600 MG TABLET PO ×3 (07:30→19:41)
[2022-04-29] MEDS: Insulin Lispro 100 UNIT/ML 3 ML VIAL 15 UNIT SUBCUT ×3 (07:38→17:34)
[2022-04-29] MEDS: Insulin Lispro 100 UNIT/ML 3 ML VIAL SUBCUT ×4 (07:39→20:12)
[2022-04-29 07:41] LABS: Glucose, Whole Blood 370 mg/dL (60-115)
[2022-04-29 07:41] LABS: Estimated Glomerular Filt Rate > 60
[2022-04-29 08:00] VITALS: BP 111/66; PULSE 68; RESP 18; TEMP 36.8; O2SAT 97
--- NOTE | 2022-04-29 08:56 | P.PNGS_ITS ---
Subjective Subjective Date of Service: 04/29/22 Interval history: denies complaints left foot better Physical Exam Vital Signs: Vital Signs: Last Vital Signs Temp 98.2 F 04/29/22 08:00 Pulse 68 04/29/22 08:00 Resp 18 04/29/22 08:00 BP 111/66 04/29/22 08:00 Pulse Ox 97 04/29/22 08:00 O2 Del Method 04/29/22 08:00 O2 Flow Rate 1.5 04/29/22 08:00 BMI result Body Mass Index 36.0 Const: General: comfortable and no acute distress Resp: Effort & Inspection: normal respiratory effort Extrem: Other: left foot ulcer - clean, no pus or gangrenous tissue Objective Data Active Medications Acetaminophen (Acetaminophen 325 Mg Tablet) 650 mg PO Q6H PRN PRN Reason: Pain, Mild (Pain Scale 1-3) Atorvastatin Calcium (Atorvastatin Calcium 40 Mg Tablet) 40 mg PO BEDTIME [facility] Last Admin: 04/28/22 20:50 Dose: 40 mg Documented By: JOHN Clonazepam (Clonazepam 1 Mg Tablet) 1 mg PO BID PRN PRN Reason: anxiety Last Admin: 04/28/22 20:50 Dose: 1 mg Documented By: JOHN Clonidine HCl (Clonidine Hcl 0.2 Mg Tablet) 0.2 mg PO TID [facility]; Protocol Last Admin: 04/29/22 07:29 Dose: 0.2 mg Documented By: REY Dextrose (Dextrose 50 % 25 Gm/50 Ml Syringe) 25 gm IVPUSH Q15M PRN; Protocol PRN Reason: per Hypoglycemia Standing Ord. Docusate Sodium (Docusate Sodium 100 Mg Capsule) 100 mg PO DAILY PRN PRN Reason: Constipation Enoxaparin Sodium (Enoxaparin Sodium 40 Mg/0.4 Ml Syringe) 40 mg SUBCUT Q24H [facility] Last Admin: 04/28/22 20:57 Dose: Not Given Documented By: JOHN Non-Admin Reason: Patient Refused Furosemide (Furosemide 40 Mg Tablet) 40 mg PO BID@0800,1700 [facility]; Protocol Last Admin: 04/29/22 07:30 Dose: 40 mg Documented By: REY Gabapentin (Gabapentin 600 Mg Tablet) 600 mg PO TID [facility] Last Admin: 04/29/22 07:30 Dose: 600 mg Documented By: REY Glucose (Glucose Gel 15 Gm Gel..Gram.) 15 gm PO Q15M PRN; Protocol PRN Reason: per Hypoglycemia Standing Ord. Insulin Glargine (Insulin Glargine,Hum.Rec.Anlog 100 Unit/Ml 10 Ml Vial) 120 unit SUBCUT BEDTIME [facility] Last Admin: 04/28/22 20:50 Dose: 120 unit Documented By: JOHN Insulin Human Lispro (Insulin Lispro 100 Unit/Ml 3 Ml Vial) 15 unit SUBCUT TIDWM [facility] Last Admin: 04/29/22 07:38 Dose: 15 unit Documented By: REY Insulin Human Lispro (Insulin Lispro 100 Unit/Ml 3 Ml Vial) 0 unit SUBCUT QIDACHS [facility]; Protocol Last Admin: 04/29/22 07:39 Dose: 10 unit Documented By: REY Levofloxacin (Levofloxacin 750 Mg Tablet) 750 mg PO Q24H [facility] Stop: 04/30/22 09:01 Last Admin: 04/29/22 07:30 Dose: 750 mg Documented By: REY Methadone HCl (Methadone Hcl 20 Mg/2 Ml Oral.Conc) 70 mg PO DAILY [facility] Last Admin: 04/29/22 07:30 Dose: 70 mg Documented By: REY Ondansetron HCl (Ondansetron Hcl 4 Mg/2 Ml Vial) 4 mg IVPUSH Q8H PRN PRN Reason: Nausea and Vomiting Oxycodone HCl (Oxycodone Hcl Immed Release 5 Mg Tablet) 10 mg PO Q4H PRN PRN Reason: Pain, Moderate (Pain Scale 4-6 Last Admin: 04/29/22 07:28 Dose: 10 mg Documented By: REY Pharmacy Consult (Consult Rx Perform Med Rec) 1 each MISCELLANE ONCE PRN PRN Reason: Consult order Pharmacy Consult (Consult Rx Perform Med Rec) 1 each MISCELLANE ONCE PRN PRN Reason: Consult order Quetiapine Fumarate (Quetiapine Fumarate 100 Mg Tablet) 100 mg PO BID [facility] Last Admin: 04/29/22 07:30 Dose: 100 mg Documented By: REY Sodium Chloride (0.9 % Sodium Chloride Flush 3 Ml Syringe) 3 ml IVFLUSH QSHIFT [facility] Last Admin: 04/29/22 07:27 Dose: Not Given Documented By: REY Non-Admin Reason: No Access Labs CBC & Chem 7: 04/29/22 05:10 04/29/22 05:10 Labs: Laboratory Results - last 24 hr 04/28/22 04/28/22 04/28/22 11:05 16:08 20:14 MCV MCH MCHC RDW Plt Count MPV Immature Gran % (Auto) Neut % (Auto) Lymph % (Auto) [place] % (Auto) Eos % (Auto) Baso % (Auto) Lymph # (Auto) [place] # (Auto) Eos # (Auto) Baso # (Auto) Abs Immat Gran (auto) Absolute Neuts (auto) Absolute Nucleated RBC Nucleated RBC % (auto) Estim Creat Clear Calc Estimated GFR POC Glucose 273 H 283 H 243 H 04/29/22 04/29/22 04/29/22 05:10 05:10 07:29 MCV 88.5 MCH 27.7 MCHC 31.3 RDW 14.8 Plt Count 133 L MPV 11.7 Immature Gran % (Auto) 0.3 Neut % (Auto) 40.2 L Lymph % (Auto) 39.3 [place] % (Auto) 14.1 H Eos % (Auto) 5.5 H Baso % (Auto) 0.6 Lymph # (Auto) 1.3 [place] # (Auto) 0.5 Eos # (Auto) 0.2 Baso # (Auto) 0.0 Abs Immat Gran (auto) 0.01 Absolute Neuts (auto) 1.3 L Absolute Nucleated RBC 0.000 Nucleated RBC % (auto) 0.0 Estim Creat Clear Calc 101.0 Estimated GFR > 60 POC Glucose 370 H* Procedures Date of Service Date of Service: 04/29/22 Progress Note: A&P Assessment and plan (1) Diabetic ulcer of right foot: Status: Acute Assessment and Plan: dressings changed silver alginate applied edema, redness resolved continue daily wound care with alginate dressings Time Spent With Patient Time: Total time spent is greater than 50% in coordination of care (as documented) at patient's floor/unit and/or counseling patient: Quality Stroke Does the patient have a stroke diagnosis?: No VTE Prior VTE?: No VTE Risk Level:: Medical - moderate - high VTE Device Contraindication: Treatment Not Indicated VTE Drug Contraindication: N/A - Med Ordered
[2022-04-29 11:07] VITALS: BP 97/67; PULSE 70; RESP 18; TEMP 36.9; O2SAT 98
[2022-04-29 11:14] LABS: Glucose, Whole Blood 248 mg/dL (60-115)
--- NOTE | 2022-04-29 11:20 | MHC.CM.PN ---
SHAW CURRENTLY REVIEWING CLINICAL UPDATES SENT VIA [employer]. PLAN IS FOR PIC
--- NOTE | 2022-04-29 11:42 | MHC.CM.PN ---
PATIENT CANNOT DC TO [facility] OR [facility]. HE IS BANNED FROM THESE FACILITIES FOR AGGRESSION TOWARDS STAFF REFERRAL TO BE FAXED TO [facility]
--- NOTE | 2022-04-29 13:16 | P.PICC_ITS ---
PICC Line Insertion [facility] Diagnosis: Osteromyelitis of left foot Indication: petroleum terminal plant operator antibiotics Pertinent Labs: reviewed Technique: Following informed consent including risks, benefits and alternatives and using sterile technique including cap and mask, sterile gown, glove and drape, the right arm was prepped and draped in the usual sterile fashion of full barrier technique with G. Following completion of [place] Protocol the skin and soft tissues were anesthetized with 1% Lidocaine plain. Using ultrasound guidance, right brachial vein access was obtained in a single attempt by this RN after one attempt by Julio Cesar Gregorio RN. Over an 0.018 wire through peel-away sheath, a Single lumen PASV PICC line was positioned. Catheter length is 38 cm internal length, 0 cm external length, for a total trimmed length of 38 cm. The procedure was performed in S272. Tip verification was performed by Dominic Jacome with [place] 3CG. Tip located in SVC. Ultrasound was used to document vein patency and for needle entry. A formal ultrasound picture and cardiac rhythm strip was recorded. Vascular Special Education Superintendent has released the line for use and it is currently dressed with a StatLock, Tegaderm, and CHG disc. Verification has been performed for blood return and line patency. Arm Circumference: 34.5 cm Equipment: [employer] R&D PowerePICC Solo Catheter Type: Lot #: [id number] PASV PICC
--- NOTE | 2022-04-29 13:46 | HO.PM.IMPN ---
Subjective Subjective Date of Service: 04/29/22 Interval History: No acute issues overnight. PICC line inserted without issue Review of Systems Denies chest pain Denies shortness of breath Denies nausea vomiting diarrhea Denies fever chills Physical Exam Vital Signs: Vital Signs: Last Vital Signs Temp 98.5 F 04/29/22 11:07 Pulse 70 04/29/22 11:07 Resp 18 04/29/22 11:07 BP 97/67 04/29/22 11:07 Pulse Ox 98 04/29/22 11:07 O2 Del Method 04/29/22 11:07 O2 Flow Rate 1.5 04/29/22 11:07 BMI result Body Mass Index 36.0 Const: Other: No acute issues Resp: Other: Clear to auscultation bilaterally no rales rhonchi wheezes Cardio: Other: No S4; positive S1-S2; no S3 murmurs rubs or gallops Extrem: Other: See initial ER picture evaluation Objective Data Active Medications Acetaminophen (Acetaminophen 325 Mg Tablet) 650 mg PO Q6H PRN PRN Reason: Pain, Mild (Pain Scale 1-3) Atorvastatin Calcium (Atorvastatin Calcium 40 Mg Tablet) 40 mg PO BEDTIME [facility] Last Admin: 04/28/22 20:50 Dose: 40 mg Documented By: JOHN Clonazepam (Clonazepam 1 Mg Tablet) 1 mg PO BID PRN PRN Reason: anxiety Last Admin: 04/28/22 20:50 Dose: 1 mg Documented By: JOHN Clonidine HCl (Clonidine Hcl 0.2 Mg Tablet) 0.2 mg PO TID [facility]; Protocol Last Admin: 04/29/22 07:29 Dose: 0.2 mg Documented By: REY Dextrose (Dextrose 50 % 25 Gm/50 Ml Syringe) 25 gm IVPUSH Q15M PRN; Protocol PRN Reason: per Hypoglycemia Standing Ord. Docusate Sodium (Docusate Sodium 100 Mg Capsule) 100 mg PO DAILY PRN PRN Reason: Constipation Enoxaparin Sodium (Enoxaparin Sodium 40 Mg/0.4 Ml Syringe) 40 mg SUBCUT Q24H [facility] Last Admin: 04/28/22 20:57 Dose: Not Given Documented By: JOHN Non-Admin Reason: Patient Refused Furosemide (Furosemide 40 Mg Tablet) 40 mg PO BID@0800,1700 [facility]; Protocol Last Admin: 04/29/22 07:30 Dose: 40 mg Documented By: REY Gabapentin (Gabapentin 600 Mg Tablet) 600 mg PO TID [facility] Last Admin: 04/29/22 07:30 Dose: 600 mg Documented By: REY Glucose (Glucose Gel 15 Gm Gel..Gram.) 15 gm PO Q15M PRN; Protocol PRN Reason: per Hypoglycemia Standing Ord. Vancomycin HCl 1,250 mg/ (Sodium Chloride) 250 mls @ 166.667 mls/hr IV ONCE ONE Stop: 04/29/22 15:13 Insulin Glargine (Insulin Glargine,Hum.Rec.Anlog 100 Unit/Ml 10 Ml Vial) 120 unit SUBCUT BEDTIME [facility] Last Admin: 04/28/22 20:50 Dose: 120 unit Documented By: JOHN Insulin Human Lispro (Insulin Lispro 100 Unit/Ml 3 Ml Vial) 15 unit SUBCUT TIDWM [facility] Last Admin: 04/29/22 13:24 Dose: 15 unit Documented By: REY Insulin Human Lispro (Insulin Lispro 100 Unit/Ml 3 Ml Vial) 0 unit SUBCUT QIDACHS [facility]; Protocol Last Admin: 04/29/22 13:25 Dose: 4 unit Documented By: REY Levofloxacin (Levofloxacin 500 Mg Tablet) 500 mg PO Q24H [facility] Methadone HCl (Methadone Hcl 20 Mg/2 Ml Oral.Conc) 70 mg PO DAILY [facility] Last Admin: 04/29/22 07:30 Dose: 70 mg Documented By: REY Ondansetron HCl (Ondansetron Hcl 4 Mg/2 Ml Vial) 4 mg IVPUSH Q8H PRN PRN Reason: Nausea and Vomiting Oxycodone HCl (Oxycodone Hcl Immed Release 5 Mg Tablet) 10 mg PO Q4H PRN PRN Reason: Pain, Moderate (Pain Scale 4-6 Last Admin: 04/29/22 07:28 Dose: 10 mg Documented By: REY Pharmacy Consult (Consult Rx Perform Med Rec) 1 each MISCELLANE ONCE PRN PRN Reason: Consult order Pharmacy Consult (Consult Rx Perform Med Rec) 1 each MISCELLANE ONCE PRN PRN Reason: Consult order Pharmacy Consult (Consult Rx Vancomycin Dosing) 1 each MISCELLANE DAILY PRN PRN Reason: Consult order Quetiapine Fumarate (Quetiapine Fumarate 100 Mg Tablet) 100 mg PO BID [facility] Last Admin: 04/29/22 07:30 Dose: 100 mg Documented By: REY Sodium Chloride (0.9 % Sodium Chloride Flush 3 Ml Syringe) 3 ml IVFLUSH QSHIFT [facility] Last Admin: 04/29/22 07:27 Dose: Not Given Documented By: REY Non-Admin Reason: No Access Sodium Chloride (0.9 % Sodium Chloride Flush 10 Ml Syringe) 5 ml IVFLUSH TID [facility] Labs CBC & Chem 7: 04/29/22 05:10 04/29/22 05:10 Labs: Laboratory Results - last 24 hr 04/28/22 04/28/22 04/29/22 16:08 20:14 05:10 MCV 88.5 MCH 27.7 MCHC 31.3 RDW 14.8 Plt Count 133 L MPV 11.7 Immature Gran % (Auto) 0.3 Neut % (Auto) 40.2 L Lymph % (Auto) 39.3 [place] % (Auto) 14.1 H Eos % (Auto) 5.5 H Baso % (Auto) 0.6 Lymph # (Auto) 1.3 [place] # (Auto) 0.5 Eos # (Auto) 0.2 Baso # (Auto) 0.0 Abs Immat Gran (auto) 0.01 Absolute Neuts (auto) 1.3 L Absolute Nucleated RBC 0.000 Nucleated RBC % (auto) 0.0 Estim Creat Clear Calc Estimated GFR POC Glucose 283 H 243 H 04/29/22 04/29/22 04/29/22 05:10 07:29 11:05 MCV MCH MCHC RDW Plt Count MPV Immature Gran % (Auto) Neut % (Auto) Lymph % (Auto) [place] % (Auto) Eos % (Auto) Baso % (Auto) Lymph # (Auto) [place] # (Auto) Eos # (Auto) Baso # (Auto) Abs Immat Gran (auto) Absolute Neuts (auto) Absolute Nucleated RBC Nucleated RBC % (auto) Estim Creat Clear Calc 101.0 Estimated GFR > 60 POC Glucose 370 H* 248 H Assessment and Plan (1) Acute osteomyelitis: Status: Acute (2) Diabetes type 2 with atherosclerosis of arteries of extremities: Status: Acute (3) HTN (hypertension): Status: Acute Plan 51-year-old male with history of diabetes type 2 insulin dependent, peripheral arterial disease status post right transmetatarsal amputation, chronic wounds bilateral, polysubstance abuse, hypertension, HLD, anxiety, chronic respiratory a proxy of following COVID-19 on 2 L oxygen 26/12 comes here for worsening of the wound on the top of left foot pain? Patient was just admitted and discharged on 03/21 for a right amputated metatarsal foot ulcer was given antibiotics patient is still taking doxycycline patient says was had a small wound on the top of the left foot when he was admitted which got worse in last 3 days it just opened up no fever no chills patient unable to follow up with wound clinic since discharge on 03/21. Admitted for further workup 1. Acute osteomyelitis (bone scan pending) -PICC line without issue -DC linezolid . . . Vancomycin IV along with p.o. Levaquin x6 weeks -awaiting placement 2. DM 2 -continue long-acting along with lispro sliding scale -adjust as indicated 3. Hypertension -acceptable control on current therapies -adjust as indicated Full code Lovenox Patient will require ongoing hospitalization for IV antibiotics to treat acute osteomyelitis Quality Stroke Does the patient have a stroke diagnosis?: No VTE Prior VTE?: No VTE Risk Level:: Medical - moderate - high VTE Device Contraindication: Treatment Not Indicated VTE Drug Contraindication: N/A - Med Ordered
--- NOTE | 2022-04-29 14:19 | PHA.PROG ---
Admission Date/Time: April 25, 2022 21:30 Indication: BONE AND JOINT Weight in k kg Serum Creatinine - Last 168 Hours 04/25/22 04/26/22 04/27/22 18:58 06:11 14:26 Creatinine 1.04 0.93 1.17 04/29/22 05:10 Creatinine 1.18 Estimated CrCl and GFR - Last 168 Hours 04/25/22 04/26/22 04/27/22 18:58 06:11 14:26 Estim Creat Clear Calc 114.6 128.1 101.8 Estimated GFR > 60 > 60 > 60 04/29/22 05:10 Estim Creat Clear Calc 101.0 Estimated GFR > 60 Vancomycin Loading Dose: 2000 Current Vancomycin Dosing Regimen: 100 Q 12 Vancomycin Monitoring using AUC goal of 400 - 600 range with trough as surrogate marker: 529 Date and Time for next Vancomycin Level to be drawn: 12/29 @ 0500 Pharmacist Comments on Vancomycin Plan: RELOADED LAST DOSE WAS ON 04/27. [id number]. PATIENT WAS ON [id number] BEFORE BEING DISCONTINUED. Doses after load changed in time to allow trough to be while pharmacy is open Vancomycin dosing will take advantage of [employer] as a clinical decision support tool that uses Bayesian modeling to calculate individual patient's pharmacokinetic parameters and forecast the patient's drug concentration time course with the target goal AUC 24 range of 400 - 600 mg/L/hr.
[2022-04-29] MEDS: 0.9 % Sodium Chloride Flush 10 ML SYRINGE 5 ML IVFLUSH ×2 (14:34→20:45)
[2022-04-29] MEDS: levoFLOXacin 500 MG TABLET PO (14:34)
[2022-04-29 15:45] LABS: Glucose, Whole Blood 300 mg/dL (60-115)
[2022-04-29 16:00] VITALS: BP 112/64; PULSE 61; RESP 18; TEMP 36.2; O2SAT 97
[2022-04-29] MEDS: Atorvastatin Calcium 40 MG TABLET PO (19:42)
[2022-04-29] MEDS: Insulin Glargine,Hum.rec.anlog 100 UNIT/ML 10 ML VIAL 120 UNIT SUBCUT (19:42)
[2022-04-29 20:00] VITALS: BP 133/78; PULSE 65; RESP 16; TEMP 36.3; O2SAT 98
[2022-04-29 20:05] LABS: Glucose, Whole Blood 301 mg/dL (60-115)
[2022-04-29] MEDS: 0.9 % Sodium Chloride Flush 3 ML SYRINGE IVFLUSH (20:44)
[2022-04-29] MEDS: clonazePAM 1 MG TABLET PO (20:51)
[2022-04-30] VITALS: BP 116/67; PULSE 54; RESP 18; TEMP 36.2; O2SAT 97
[2022-04-30 03:59] VITALS: BP 120/70; PULSE 62; RESP 18; TEMP 36.4; O2SAT 97
[2022-04-30] MEDS: vancomycin HCL 1,000 MG in 0.9 % Sodium Chloride 250 ML 270 MG IV ×2 (06:16→18:01)
[2022-04-30 06:24] LABS: Creatinine Clr Calc Pharmacy 145.3; Estimated Glomerular Filt Rate > 60
[2022-04-30 07:15] VITALS: BP 106/55; PULSE 60; RESP 17; TEMP 35.9; O2SAT 100
[2022-04-30 07:35] LABS: Glucose, Whole Blood 245 mg/dL (60-115)
[2022-04-30] MEDS: Furosemide 40 MG TABLET PO (08:40)
[2022-04-30] MEDS: QUEtiapine Fumarate 100 MG TABLET PO ×2 (08:40→21:32)
[2022-04-30] MEDS: Gabapentin 600 MG TABLET PO ×3 (08:40→21:33)
[2022-04-30] MEDS: methADONE HCl 20 MG/2 ML ORAL.CONC 70 MG PO (08:40)
[2022-04-30] MEDS: cloNIDine HCL 0.2 MG TABLET PO ×3 (08:40→21:32)
[2022-04-30] MEDS: clonazePAM 1 MG TABLET PO ×2 (08:41→21:32)
[2022-04-30] MEDS: Insulin Lispro 100 UNIT/ML 3 ML VIAL SUBCUT ×3 (08:41→21:55)
[2022-04-30] MEDS: oxyCODONE HCl Immed Release 5 MG TABLET 10 MG PO ×3 (08:41→21:33)
[2022-04-30] MEDS: Insulin Lispro 100 UNIT/ML 3 ML VIAL 15 UNIT SUBCUT ×2 (08:41→11:53)
[2022-04-30] MEDS: 0.9 % Sodium Chloride Flush 10 ML SYRINGE 5 ML IVFLUSH ×3 (08:46→23:17)
--- NOTE | 2022-04-30 09:29 | HE.PHANOTE ---
Vancomycin Dosing Continue current regimen 1000 mg Q12H. Expected AUC 444 with a trough of 12.2. Level to be drawn 05/01 @ 0500. Pablo WelchD
[2022-04-30 11:02] VITALS: BP 107/65; PULSE 60; RESP 17; TEMP 36.1; O2SAT 97
[2022-04-30 11:09] LABS: Glucose, Whole Blood 246 mg/dL (60-115)
--- NOTE | 2022-04-30 13:27 | HO.PM.IMPN ---
Subjective Subjective Date of Service: 04/30/22 Interval History: No acute issues overnight Review of Systems Denies chest pain Denies shortness of breath Denies nausea vomiting diarrhea Denies fever chills Physical Exam Vital Signs: Vital Signs: Last Vital Signs Temp 97.0 F 04/30/22 11:02 Pulse 60 04/30/22 11:02 Resp 17 04/30/22 11:02 BP 107/65 04/30/22 11:02 Pulse Ox 97 04/30/22 11:02 O2 Del Method 04/30/22 11:02 O2 Flow Rate 2.0 04/30/22 11:02 BMI result Body Mass Index 36.0 Const: Other: No acute issues Resp: Other: Clear to auscultation bilaterally no rales rhonchi wheezes Cardio: Other: No S4; positive S1-S2; no S3 murmurs rubs or gallops Extrem: Other: See initial ER picture evaluation Objective Data Active Medications Acetaminophen (Acetaminophen 325 Mg Tablet) 650 mg PO Q6H PRN PRN Reason: Pain, Mild (Pain Scale 1-3) Atorvastatin Calcium (Atorvastatin Calcium 40 Mg Tablet) 40 mg PO BEDTIME ON LICENSE OF [facility] Last Admin: 04/29/22 19:42 Dose: 40 mg Documented By: FADUMO Clonazepam (Clonazepam 1 Mg Tablet) 1 mg PO BID PRN PRN Reason: anxiety Last Admin: 04/30/22 08:41 Dose: 1 mg Documented By: ANYA Clonidine HCl (Clonidine Hcl 0.2 Mg Tablet) 0.2 mg PO TID ON LICENSE OF [facility]; Protocol Last Admin: 04/30/22 08:40 Dose: 0.2 mg Documented By: ANYA Dextrose (Dextrose 50 % 25 Gm/50 Ml Syringe) 25 gm IVPUSH Q15M PRN; Protocol PRN Reason: per Hypoglycemia Standing Ord. Docusate Sodium (Docusate Sodium 100 Mg Capsule) 100 mg PO DAILY PRN PRN Reason: Constipation Enoxaparin Sodium (Enoxaparin Sodium 40 Mg/0.4 Ml Syringe) 40 mg SUBCUT Q24H ON LICENSE OF [facility] Last Admin: 04/29/22 20:14 Dose: Not Given Documented By: FADUMO Non-Admin Reason: Patient Refused Furosemide (Furosemide 40 Mg Tablet) 40 mg PO BID@0800,1700 ON LICENSE OF [facility]; Protocol Last Admin: 04/30/22 08:40 Dose: 40 mg Documented By: ANYA Gabapentin (Gabapentin 600 Mg Tablet) 600 mg PO TID ON LICENSE OF [facility] Last Admin: 04/30/22 08:40 Dose: 600 mg Documented By: ANYA Glucose (Glucose Gel 15 Gm Gel..Gram.) 15 gm PO Q15M PRN; Protocol PRN Reason: per Hypoglycemia Standing Ord. Vancomycin HCl 1,000 mg/ (Sodium Chloride) 270 mls @ 270 mls/hr IV Q12H ON LICENSE OF [facility] Last Infusion: 04/30/22 08:46 Dose: 0 mls/hr Documented By: ANYA Insulin Glargine (Insulin Glargine,Hum.Rec.Anlog 100 Unit/Ml 10 Ml Vial) 120 unit SUBCUT BEDTIME ON LICENSE OF [facility] Last Admin: 04/29/22 19:42 Dose: 120 unit Documented By: FADUMO Insulin Human Lispro (Insulin Lispro 100 Unit/Ml 3 Ml Vial) 15 unit SUBCUT TIDWM ON LICENSE OF [facility] Last Admin: 04/30/22 11:53 Dose: 15 unit Documented By: ANYA Insulin Human Lispro (Insulin Lispro 100 Unit/Ml 3 Ml Vial) 0 unit SUBCUT QIDACHS ON LICENSE OF [facility]; Protocol Last Admin: 04/30/22 11:53 Dose: 4 unit Documented By: ANYA Levofloxacin (Levofloxacin 500 Mg Tablet) 500 mg PO Q24H ON LICENSE OF [facility] Last Admin: 04/29/22 14:34 Dose: 500 mg Documented By: REY Methadone HCl (Methadone Hcl 20 Mg/2 Ml Oral.Conc) 70 mg PO DAILY ON LICENSE OF [facility] Last Admin: 04/30/22 08:40 Dose: 70 mg Documented By: ANYA Ondansetron HCl (Ondansetron Hcl 4 Mg/2 Ml Vial) 4 mg IVPUSH Q8H PRN PRN Reason: Nausea and Vomiting Oxycodone HCl (Oxycodone Hcl Immed Release 5 Mg Tablet) 10 mg PO Q4H PRN PRN Reason: Pain, Moderate (Pain Scale 4-6 Last Admin: 04/30/22 08:41 Dose: 10 mg Documented By: ANYA Pharmacy Consult (Consult Rx Perform Med Rec) 1 each MISCELLANE ONCE PRN PRN Reason: Consult order Pharmacy Consult (Consult Rx Perform Med Rec) 1 each MISCELLANE ONCE PRN PRN Reason: Consult order Pharmacy Consult (Consult Rx Vancomycin Dosing) 1 each MISCELLANE DAILY PRN PRN Reason: Consult order Quetiapine Fumarate (Quetiapine Fumarate 100 Mg Tablet) 100 mg PO BID ON LICENSE OF [facility] Last Admin: 04/30/22 08:40 Dose: 100 mg Documented By: ANYA Sodium Chloride (0.9 % Sodium Chloride Flush 3 Ml Syringe) 3 ml IVFLUSH QSHIFT ON LICENSE OF [facility] Last Admin: 04/30/22 08:46 Dose: Not Given Documented By: ANYA Non-Admin Reason: PICC Sodium Chloride (0.9 % Sodium Chloride Flush 10 Ml Syringe) 5 ml IVFLUSH TID ON LICENSE OF [facility] Last Admin: 04/30/22 08:46 Dose: 5 ml Documented By: ANYA Labs CBC & Chem 7: 04/29/22 05:10 04/30/22 05:24 Labs: Laboratory Results - last 24 hr 04/29/22 04/29/22 04/30/22 15:26 20:00 05:24 Estim Creat Clear Calc 145.3 Estimated GFR > 60 POC Glucose 300 H 301 H 04/30/22 04/30/22 07:17 11:03 Estim Creat Clear Calc Estimated GFR POC Glucose 245 H 246 H Assessment and Plan (1) Acute osteomyelitis: Status: Acute (2) Diabetes type 2 with atherosclerosis of arteries of extremities: Status: Acute (3) HTN (hypertension): Status: Acute Plan 51-year-old male with history of diabetes type 2 insulin dependent, peripheral arterial disease status post right transmetatarsal amputation, chronic wounds bilateral, polysubstance abuse, hypertension, HLD, anxiety, chronic respiratory a proxy of following COVID-19 on 2 L oxygen 26/12 comes here for worsening of the wound on the top of left foot pain? Patient was just admitted and discharged on 03/21 for a right amputated metatarsal foot ulcer was given antibiotics patient is still taking doxycycline patient says was had a small wound on the top of the left foot when he was admitted which got worse in last 3 days it just opened up no fever no chills patient unable to follow up with wound clinic since discharge on 03/21. Admitted for further workup 1. Acute osteomyelitis (bone scan pending) -PICC line without issue -Vancomycin IV along with p.o. Levaquin x6 weeks -awaiting placement 2. DM 2 -continue long-acting along with lispro sliding scale -adjust as indicated 3. Hypertension -acceptable control on current therapies -adjust as indicated Full code Lovenox Patient will require ongoing hospitalization for IV antibiotics to treat acute osteomyelitis Quality Stroke Does the patient have a stroke diagnosis?: No VTE Prior VTE?: No VTE Risk Level:: Medical - moderate - high VTE Device Contraindication: Treatment Not Indicated VTE Drug Contraindication: N/A - Med Ordered
[2022-04-30] MEDS: levoFLOXacin 500 MG TABLET PO (14:39)
--- NOTE | 2022-04-30 16:34 | PC.NURSE ---
pt refusing vitals and POC. Pt states he is refusing to eat dinner. Dr Barnett made aware.
[2022-04-30] MEDS: 0.9 % Sodium Chloride Flush 3 ML SYRINGE IVFLUSH ×2 (19:28→23:17)
--- NOTE | 2022-04-30 21:12 | PC.NURSE ---
PT refusing VS and POC to be done. PT accepted tutu crackers and diet gingerale for snack. MD Dias notified
[2022-04-30 21:30] VITALS: BP 121/88; PULSE 63; RESP 18; TEMP 36.4; O2SAT 98
[2022-04-30] MEDS: Atorvastatin Calcium 40 MG TABLET PO (21:33)
[2022-04-30] MEDS: Insulin Glargine,Hum.rec.anlog 100 UNIT/ML 10 ML VIAL 120 UNIT SUBCUT (21:41)
[2022-04-30 21:46] LABS: Glucose, Whole Blood 278 mg/dL (60-115)
--- NOTE | 2022-04-30 21:56 | PC.NURSE ---
PT agreed to have RN do POC and VS. Insulin given per sliding scale.
[2022-04-30 23:23] VITALS: BP 121/70; PULSE 59; RESP 16; TEMP 36.1; O2SAT 98
[2022-05-01 03:47] VITALS: BP 121/64; PULSE 65; RESP 18; TEMP 36.1; O2SAT 93
[2022-05-01 06:09] LABS: Creatinine Clr Calc Pharmacy 132.4; Estimated Glomerular Filt Rate > 60
[2022-05-01 06:14] LABS: Vancomycin Trough 11.4 mcg/mL (10.0-20.0)
[2022-05-01] MEDS: vancomycin HCL 1,000 MG in 0.9 % Sodium Chloride 250 ML 270 MG IV ×2 (06:21→18:10)
[2022-05-01 07:48] VITALS: BP 133/76; PULSE 61; RESP 17; TEMP 36.2; O2SAT 99
[2022-05-01 07:50] LABS: Glucose, Whole Blood 332 mg/dL (60-115)
[2022-05-01] MEDS: methADONE HCl 20 MG/2 ML ORAL.CONC 70 MG PO (08:05)
[2022-05-01] MEDS: clonazePAM 1 MG TABLET PO ×2 (08:06→20:43)
[2022-05-01] MEDS: Insulin Lispro 100 UNIT/ML 3 ML VIAL 15 UNIT SUBCUT ×3 (08:06→16:55)
[2022-05-01] MEDS: cloNIDine HCL 0.2 MG TABLET PO ×3 (08:06→20:43)
[2022-05-01] MEDS: Insulin Lispro 100 UNIT/ML 3 ML VIAL SUBCUT ×3 (08:06→20:46)
[2022-05-01] MEDS: oxyCODONE HCl Immed Release 5 MG TABLET 10 MG PO ×3 (08:06→20:43)
[2022-05-01] MEDS: QUEtiapine Fumarate 100 MG TABLET PO ×2 (08:06→20:43)
[2022-05-01] MEDS: Furosemide 40 MG TABLET PO ×2 (08:07→16:55)
[2022-05-01] MEDS: Gabapentin 600 MG TABLET PO ×3 (08:07→20:43)
[2022-05-01] MEDS: 0.9 % Sodium Chloride Flush 10 ML SYRINGE 5 ML IVFLUSH ×3 (08:11→20:53)
[2022-05-01 11:07] VITALS: BP 132/73; PULSE 60; RESP 18; TEMP 36.3; O2SAT 97
[2022-05-01 11:15] LABS: Glucose, Whole Blood 237 mg/dL (60-115)
[2022-05-01] MEDS: levoFLOXacin 500 MG TABLET PO (13:58)
--- NOTE | 2022-05-01 14:08 | HO.PM.IMPN ---
Subjective Subjective Date of Service: 05/01/22 Interval History: No acute issues overnight remains afebrile Review of Systems Denies chest pain Denies shortness of breath Denies nausea vomiting diarrhea Denies fever chills Physical Exam Vital Signs: Vital Signs: Last Vital Signs Temp 97.4 F 05/01/22 11:07 Pulse 60 05/01/22 11:07 Resp 18 05/01/22 11:07 BP 132/73 05/01/22 11:07 Pulse Ox 97 05/01/22 11:07 O2 Del Method 05/01/22 11:07 O2 Flow Rate 2.0 05/01/22 11:07 BMI result Body Mass Index 36.0 Const: Other: No acute issues Resp: Other: Clear to auscultation bilaterally no rales rhonchi wheezes Cardio: Other: No S4; positive S1-S2; no S3 murmurs rubs or gallops Extrem: Other: See initial ER picture evaluation Objective Data Active Medications Acetaminophen (Acetaminophen 325 Mg Tablet) 650 mg PO Q6H PRN PRN Reason: Pain, Mild (Pain Scale 1-3) Atorvastatin Calcium (Atorvastatin Calcium 40 Mg Tablet) 40 mg PO BEDTIME [facility] Last Admin: 04/30/22 21:33 Dose: 40 mg Documented By: FADUMO Clonazepam (Clonazepam 1 Mg Tablet) 1 mg PO BID PRN PRN Reason: Anxiety Last Admin: 05/01/22 08:06 Dose: 1 mg Documented By: ANYA Clonidine HCl (Clonidine Hcl 0.2 Mg Tablet) 0.2 mg PO TID [facility]; Protocol Last Admin: 05/01/22 13:59 Dose: 0.2 mg Documented By: ANYA Dextrose (Dextrose 50 % 25 Gm/50 Ml Syringe) 25 gm IVPUSH Q15M PRN; Protocol PRN Reason: per Hypoglycemia Standing Ord. Docusate Sodium (Docusate Sodium 100 Mg Capsule) 100 mg PO DAILY PRN PRN Reason: Constipation Enoxaparin Sodium (Enoxaparin Sodium 40 Mg/0.4 Ml Syringe) 40 mg SUBCUT Q24H [facility] Last Admin: 04/30/22 21:56 Dose: Not Given Documented By: FADUMO Non-Admin Reason: Patient Refused Furosemide (Furosemide 40 Mg Tablet) 40 mg PO BID@0800,1700 [facility]; Protocol Last Admin: 05/01/22 08:07 Dose: 40 mg Documented By: ANYA Gabapentin (Gabapentin 600 Mg Tablet) 600 mg PO TID [facility] Last Admin: 05/01/22 13:59 Dose: 600 mg Documented By: ANYA Glucose (Glucose Gel 15 Gm Gel..Gram.) 15 gm PO Q15M PRN; Protocol PRN Reason: per Hypoglycemia Standing Ord. Vancomycin HCl 1,000 mg/ (Sodium Chloride) 270 mls @ 270 mls/hr IV Q12H [facility] Last Infusion: 05/01/22 07:41 Dose: 0 mls/hr Documented By: ANYA Insulin Glargine (Insulin Glargine,Hum.Rec.Anlog 100 Unit/Ml 10 Ml Vial) 120 unit SUBCUT BEDTIME [facility] Last Admin: 04/30/22 21:41 Dose: 120 unit Documented By: FADUMO Insulin Human Lispro (Insulin Lispro 100 Unit/Ml 3 Ml Vial) 15 unit SUBCUT TIDWM [facility] Last Admin: 05/01/22 11:52 Dose: 15 unit Documented By: ANYA Insulin Human Lispro (Insulin Lispro 100 Unit/Ml 3 Ml Vial) 0 unit SUBCUT QIDACHS [facility]; Protocol Last Admin: 05/01/22 11:52 Dose: 4 unit Documented By: ANYA Levofloxacin (Levofloxacin 500 Mg Tablet) 500 mg PO Q24H [facility] Last Admin: 05/01/22 13:58 Dose: 500 mg Documented By: ANYA Methadone HCl (Methadone Hcl 20 Mg/2 Ml Oral.Conc) 70 mg PO DAILY [facility] Last Admin: 05/01/22 08:05 Dose: 70 mg Documented By: ANYA Ondansetron HCl (Ondansetron Hcl 4 Mg/2 Ml Vial) 4 mg IVPUSH Q8H PRN PRN Reason: Nausea and Vomiting Oxycodone HCl (Oxycodone Hcl Immed Release 5 Mg Tablet) 10 mg PO Q4H PRN PRN Reason: Pain, Moderate (Pain Scale 4-6 Last Admin: 05/01/22 13:58 Dose: 10 mg Documented By: ANYA Pharmacy Consult (Consult Rx Perform Med Rec) 1 each MISCELLANE ONCE PRN PRN Reason: Consult order Pharmacy Consult (Consult Rx Perform Med Rec) 1 each MISCELLANE ONCE PRN PRN Reason: Consult order Pharmacy Consult (Consult Rx Vancomycin Dosing) 1 each MISCELLANE DAILY PRN PRN Reason: Consult order Quetiapine Fumarate (Quetiapine Fumarate 100 Mg Tablet) 100 mg PO BID [facility] Last Admin: 05/01/22 08:06 Dose: 100 mg Documented By: ANYA Sodium Chloride (0.9 % Sodium Chloride Flush 3 Ml Syringe) 3 ml IVFLUSH QSHIFT [facility] Last Admin: 05/01/22 07:41 Dose: Not Given Documented By: ANYA Non-Admin Reason: PICC Sodium Chloride (0.9 % Sodium Chloride Flush 10 Ml Syringe) 5 ml IVFLUSH TID [facility] Last Admin: 05/01/22 14:01 Dose: 5 ml Documented By: ANYA Labs CBC & Chem 7: 04/29/22 05:10 05/01/22 05:14 Labs: Laboratory Results - last 24 hr 04/30/22 05/01/22 05/01/22 21:40 05:14 05:14 Estim Creat Clear Calc 132.4 Estimated GFR > 60 POC Glucose 278 H Vancomycin Trough 11.4 05/01/22 05/01/22 07:46 11:09 Estim Creat Clear Calc Estimated GFR POC Glucose 332 H 237 H Vancomycin Trough Microbiology Microbiology Results: Microbiology 04/25/22 18:58 Blood Culture - Final Blood - Venous No growth after 5 days. 04/25/22 18:58 Blood Culture - Final Blood - Venous No growth after 5 days. Assessment and Plan (1) Acute osteomyelitis: Status: Acute (2) Diabetes type 2 with atherosclerosis of arteries of extremities: Status: Acute (3) HTN (hypertension): Status: Acute Plan 51-year-old male with history of diabetes type 2 insulin dependent, peripheral arterial disease status post right transmetatarsal amputation, chronic wounds bilateral, polysubstance abuse, hypertension, HLD, anxiety, chronic respiratory a proxy of following COVID-19 on 2 L oxygen 26/12 comes here for worsening of the wound on the top of left foot pain? Patient was just admitted and discharged on 03/21 for a right amputated metatarsal foot ulcer was given antibiotics patient is still taking doxycycline patient says was had a small wound on the top of the left foot when he was admitted which got worse in last 3 days it just opened up no fever no chills patient unable to follow up with wound clinic since discharge on 03/21. Admitted for further workup 1. Acute osteomyelitis -PICC line without issue -Vancomycin IV along with p.o. Levaquin x6 weeks -awaiting placement 2. DM 2 -continue long-acting along with lispro sliding scale -adjust as indicated 3. Hypertension -acceptable control on current therapies Full code Lovenox Patient will require ongoing hospitalization for IV antibiotics to treat acute osteomyelitis Quality Stroke Does the patient have a stroke diagnosis?: No VTE Prior VTE?: No VTE Risk Level:: Medical - moderate - high VTE Device Contraindication: Treatment Not Indicated VTE Drug Contraindication: N/A - Med Ordered
[2022-05-01 15:29] VITALS: BP 139/68; PULSE 65; RESP 18; TEMP 36.2; O2SAT 97
[2022-05-01 15:43] LABS: Glucose, Whole Blood 182 mg/dL (60-115)
--- NOTE | 2022-05-01 16:55 | PC.NURSE ---
pt POC 182. 2 units Lispro per sliding scale held and scheduled 15 units Lispro given per
[2022-05-01 19:21] VITALS: BP 132/73; PULSE 64; RESP 16; TEMP 36.8; O2SAT 97
[2022-05-01] MEDS: Atorvastatin Calcium 40 MG TABLET PO (20:43)
[2022-05-01] MEDS: Insulin Glargine,Hum.rec.anlog 100 UNIT/ML 10 ML VIAL 120 UNIT SUBCUT (20:46)
[2022-05-01 20:50] LABS: Glucose, Whole Blood 233 mg/dL (60-115)
--- NOTE | 2022-05-02 | ECG_ITS ---
Test Reason : methadone titration Blood Pressure : / mmHG Vent. Rate : 063 BPM Atrial Rate : 063 BPM P-R Int : 204 ms QRS Dur : 084 ms QT Int : 456 ms P-R-T Axes : 037 -05 004 degrees QTc Int : 466 ms Normal sinus rhythm Normal ECG When compared with ECG of 28-FEB-2020 10:46, Vent. rate has decreased BY 37 BPM Nonspecific T wave abnormality no longer evident in Lateral leads QT has shortened Referred By: Faye Chavira Electronically Signed By:TASHA HICKS MD
[2022-05-02 03:28] VITALS: BP 146/73; PULSE 61; RESP 16; TEMP 36.1; O2SAT 99
[2022-05-02] MEDS: vancomycin HCL 1,000 MG in 0.9 % Sodium Chloride 250 ML 270 MG IV (06:38)
[2022-05-02 07:12] VITALS: BP 114/62; PULSE 65; RESP 18; TEMP 36.6; O2SAT 98
[2022-05-02 07:25] LABS: Glucose, Whole Blood 294 mg/dL (60-115)
[2022-05-02] MEDS: Furosemide 40 MG TABLET PO ×2 (07:32→17:00)
[2022-05-02] MEDS: QUEtiapine Fumarate 100 MG TABLET PO ×2 (07:32→21:13)
[2022-05-02] MEDS: Gabapentin 600 MG TABLET PO ×3 (07:32→21:13)
[2022-05-02] MEDS: clonazePAM 1 MG TABLET PO ×2 (07:32→21:13)
[2022-05-02] MEDS: cloNIDine HCL 0.2 MG TABLET PO ×3 (07:33→21:13)
[2022-05-02] MEDS: oxyCODONE HCl Immed Release 5 MG TABLET 10 MG PO ×4 (07:33→21:12)
[2022-05-02] MEDS: 0.9 % Sodium Chloride Flush 10 ML SYRINGE 5 ML IVFLUSH ×3 (07:34→21:13)
[2022-05-02] MEDS: methADONE HCl 20 MG/2 ML ORAL.CONC 70 MG PO (07:34)
[2022-05-02] MEDS: Insulin Lispro 100 UNIT/ML 3 ML VIAL 15 UNIT SUBCUT ×3 (07:35→17:01)
[2022-05-02] MEDS: Insulin Lispro 100 UNIT/ML 3 ML VIAL SUBCUT ×4 (07:35→21:14)
--- NOTE | 2022-05-02 10:52 | HO.PM.IMPN ---
Subjective Subjective Date of Service: 05/02/22 Interval History: No acute issues overnight. Tolerating therapies. Awaiting placement Review of Systems Denies chest pain Denies shortness of breath Denies nausea vomiting diarrhea Denies fever chills Physical Exam Vital Signs: Vital Signs: Last Vital Signs Temp 98 F 05/02/22 07:12 Pulse 65 05/02/22 07:12 Resp 18 05/02/22 07:12 BP 114/62 05/02/22 07:12 Pulse Ox 98 05/02/22 07:12 O2 Del Method 05/02/22 07:12 O2 Flow Rate 2 05/02/22 07:12 BMI result Body Mass Index 36.0 Const: Other: No acute issues Resp: Other: Clear to auscultation bilaterally no rales rhonchi wheezes Cardio: Other: No S4; positive S1-S2; no S3 murmurs rubs or gallops Extrem: Other: See initial ER picture evaluation Objective Data Active Medications Acetaminophen (Acetaminophen 325 Mg Tablet) 650 mg PO Q6H PRN PRN Reason: Pain, Mild (Pain Scale 1-3) Atorvastatin Calcium (Atorvastatin Calcium 40 Mg Tablet) 40 mg PO BEDTIME [facility] Last Admin: 05/01/22 20:43 Dose: 40 mg Documented By: DAVION Clonazepam (Clonazepam 1 Mg Tablet) 1 mg PO BID PRN PRN Reason: Anxiety Last Admin: 05/02/22 07:32 Dose: 1 mg Documented By: REY Clonidine HCl (Clonidine Hcl 0.2 Mg Tablet) 0.2 mg PO TID [facility]; Protocol Last Admin: 05/02/22 07:33 Dose: 0.2 mg Documented By: REY Dextrose (Dextrose 50 % 25 Gm/50 Ml Syringe) 25 gm IVPUSH Q15M PRN; Protocol PRN Reason: per Hypoglycemia Standing Ord. Docusate Sodium (Docusate Sodium 100 Mg Capsule) 100 mg PO DAILY PRN PRN Reason: Constipation Enoxaparin Sodium (Enoxaparin Sodium 40 Mg/0.4 Ml Syringe) 40 mg SUBCUT Q24H [facility] Last Admin: 05/01/22 20:47 Dose: Not Given Documented By: DAVION Non-Admin Reason: pt refused; pt reports he is walking Furosemide (Furosemide 40 Mg Tablet) 40 mg PO BID@0800,1700 [facility]; Protocol Last Admin: 05/02/22 07:32 Dose: 40 mg Documented By: REY Gabapentin (Gabapentin 600 Mg Tablet) 600 mg PO TID [facility] Last Admin: 05/02/22 07:32 Dose: 600 mg Documented By: REY Glucose (Glucose Gel 15 Gm Gel..Gram.) 15 gm PO Q15M PRN; Protocol PRN Reason: per Hypoglycemia Standing Ord. Vancomycin HCl 1,000 mg/ (Sodium Chloride) 270 mls @ 270 mls/hr IV Q12H [facility] Last Infusion: 05/02/22 07:43 Dose: 270 mls/hr Documented By: REY Insulin Glargine (Insulin Glargine,Hum.Rec.Anlog 100 Unit/Ml 10 Ml Vial) 120 unit SUBCUT BEDTIME [facility] Last Admin: 05/01/22 20:46 Dose: 120 unit Documented By: DAVION Insulin Human Lispro (Insulin Lispro 100 Unit/Ml 3 Ml Vial) 15 unit SUBCUT TIDWM [facility] Last Admin: 05/02/22 07:35 Dose: 15 unit Documented By: REY Insulin Human Lispro (Insulin Lispro 100 Unit/Ml 3 Ml Vial) 0 unit SUBCUT QIDACHS [facility]; Protocol Last Admin: 05/02/22 07:35 Dose: 6 unit Documented By: REY Levofloxacin (Levofloxacin 500 Mg Tablet) 500 mg PO Q24H [facility] Last Admin: 05/01/22 13:58 Dose: 500 mg Documented By: ANYA Methadone HCl (Methadone Hcl 20 Mg/2 Ml Oral.Conc) 70 mg PO DAILY [facility] Last Admin: 05/02/22 07:34 Dose: 70 mg Documented By: REY Ondansetron HCl (Ondansetron Hcl 4 Mg/2 Ml Vial) 4 mg IVPUSH Q8H PRN PRN Reason: Nausea and Vomiting Oxycodone HCl (Oxycodone Hcl Immed Release 5 Mg Tablet) 10 mg PO Q4H PRN PRN Reason: Pain, Moderate (Pain Scale 4-6 Last Admin: 05/02/22 07:33 Dose: 10 mg Documented By: REY Pharmacy Consult (Consult Rx Perform Med Rec) 1 each MISCELLANE ONCE PRN PRN Reason: Consult order Pharmacy Consult (Consult Rx Perform Med Rec) 1 each MISCELLANE ONCE PRN PRN Reason: Consult order Pharmacy Consult (Consult Rx Vancomycin Dosing) 1 each MISCELLANE DAILY PRN PRN Reason: Consult order Quetiapine Fumarate (Quetiapine Fumarate 100 Mg Tablet) 100 mg PO BID [facility] Last Admin: 05/02/22 07:32 Dose: 100 mg Documented By: REY Sodium Chloride (0.9 % Sodium Chloride Flush 3 Ml Syringe) 3 ml IVFLUSH QSHIFT [facility] Last Admin: 05/02/22 07:36 Dose: Not Given Documented By: REY Non-Admin Reason: No Access Sodium Chloride (0.9 % Sodium Chloride Flush 10 Ml Syringe) 5 ml IVFLUSH TID [facility] Last Admin: 05/02/22 07:34 Dose: 5 ml Documented By: REY Labs CBC & Chem 7: 04/29/22 05:10 05/01/22 05:14 Labs: Laboratory Results - last 24 hr 05/01/22 05/01/22 05/01/22 11:09 15:38 19:26 POC Glucose 237 H 182 H 233 H 05/02/22 07:12 POC Glucose 294 H Assessment and Plan (1) Acute osteomyelitis: Status: Acute (2) Diabetes type 2 with atherosclerosis of arteries of extremities: Status: Acute (3) HTN (hypertension): Status: Acute Plan 51-year-old male with history of diabetes type 2 insulin dependent, peripheral arterial disease status post right transmetatarsal amputation, chronic wounds bilateral, polysubstance abuse, hypertension, HLD, anxiety, chronic respiratory a proxy of following COVID-19 on 2 L oxygen 26/12 comes here for worsening of the wound on the top of left foot pain? Patient was just admitted and discharged on 03/21 for a right amputated metatarsal foot ulcer was given antibiotics patient is still taking doxycycline patient says was had a small wound on the top of the left foot when he was admitted which got worse in last 3 days it just opened up no fever no chills patient unable to follow up with wound clinic since discharge on 03/21. Now with PICC line awaiting placement for long-term antibiotics 1. Acute osteomyelitis -PICC line without issue -Vancomycin(3) IV along with p.o. Levaquin(4) x6 weeks -awaiting placement 2. DM 2 -continue long-acting along with lispro sliding scale -adjust as indicated 3. Hypertension -acceptable control on current therapies Full code Lovenox Patient will require ongoing hospitalization for IV antibiotics to treat acute osteomyelitis Quality Stroke Does the patient have a stroke diagnosis?: No VTE Prior VTE?: No VTE Risk Level:: Medical - moderate - high VTE Device Contraindication: Treatment Not Indicated VTE Drug Contraindication: N/A - Med Ordered
[2022-05-02 10:57] VITALS: BP 111/59; PULSE 60; RESP 18; TEMP 35.9; O2SAT 96
[2022-05-02 10:59] LABS: Creatinine Clr Calc Pharmacy 120.4; Estimated Glomerular Filt Rate > 60
[2022-05-02 11:19] LABS: Glucose, Whole Blood 263 mg/dL (60-115)
[2022-05-02] MEDS: levoFLOXacin 500 MG TABLET PO (13:08)
--- NOTE | 2022-05-02 15:10 | P.PNADD_ITS ---
Subjective Subjective Date of Service: 05/02/22 Reason For Visit: Diabetic foot wound Interim History: Patient seen in follow up Flat affect. Reporting withdrawal sx overnight. Difficulty sleeping, irritability, yawning. Would like to increase dose further Awaiting placement at SNF to complete IV abx Review of Systems Constitutional: Reports as per HPI Mental Status Exam Mental Status Exam Patient Appearance: Appropriate Mood Description: Flat Affect Description: Flat Thought Process: Goal Oriented Judgement: Fair Diagnostics Vital Signs (24Hr): Vital Signs - 24 hr 05/01/22 15:29 05/01/22 19:21 05/02/22 03:28 Temperature 97.2 F 98.2 F 96.9 F Pulse Rate 65 64 61 Respiratory Rate 18 16 16 Blood Pressure 139/68 132/73 146/73 H Pulse Oximetry 97 97 99 Oxygen Delivery Method Nasal Cannula Nasal Cannula Room Air Oxygen Flow Rate 2 2 05/02/22 07:12 05/02/22 10:57 Temperature 98 F 96.7 F L Pulse Rate 65 60 Respiratory Rate 18 18 Blood Pressure 114/62 111/59 L Pulse Oximetry 98 96 Oxygen Delivery Method Nasal Cannula Nasal Cannula Oxygen Flow Rate 2 2 BMI result Body Mass Index 36.0 Labs Results: 04/29/22 05:10 05/02/22 10:15 Labs: Laboratory Results - last 48 hr 04/30/22 05/01/22 05/01/22 21:40 05:14 05:14 Creatinine 0.90 Estim Creat Clear Calc 132.4 Estimated GFR > 60 POC Glucose 278 H Vancomycin Trough 11.4 05/01/22 05/01/22 05/01/22 07:46 11:09 15:38 Creatinine Estim Creat Clear Calc Estimated GFR POC Glucose 332 H 237 H 182 H Vancomycin Trough 05/01/22 05/02/22 05/02/22 19:26 07:12 10:15 Creatinine 0.99 Estim Creat Clear Calc 120.4 Estimated GFR > 60 POC Glucose 233 H 294 H Vancomycin Trough 05/02/22 11:01 Creatinine Estim Creat Clear Calc Estimated GFR POC Glucose 263 H Vancomycin Trough Imaging Radiology Impressions: ITS Impressions Chest X-Ray 04/25/22 17:20 IMPRESSION: 1. Chronic stable pulmonary changes as described above. No acute intrathoracic disease. 2. Chronic deformities and postsurgical changes both feet. No acute finding Foot X-Ray 04/25/22 17:20 IMPRESSION: 1. Chronic stable pulmonary changes as described above. No acute intrathoracic disease. 2. Chronic deformities and postsurgical changes both feet. No acute finding Foot X-Ray 04/25/22 17:20 IMPRESSION: 1. Chronic stable pulmonary changes as described above. No acute intrathoracic disease. 2. Chronic deformities and postsurgical changes both feet. No acute finding Tibia/Fibula X-Ray 04/25/22 17:20 IMPRESSION: 1. Chronic stable pulmonary changes as described above. No acute intrathoracic disease. 2. Chronic deformities and postsurgical changes both feet. No acute finding Tibia/Fibula X-Ray 04/25/22 17:20 IMPRESSION: 1. Chronic stable pulmonary changes as described above. No acute intrathoracic disease. 2. Chronic deformities and postsurgical changes both feet. No acute finding Bone Scan Nuclear Medicine 04/26/22 14:25 IMPRESSION: Focal increased activity left foot, base of fourth and fifth digits. On left foot x-ray there appears to be fusion between the the base of fourth digit and tarsal bone with mild degenerative arthritic changes likely cause for increased activity. No abnormal activity seen in the amputated right foot to suspect any osteomyelitis. Mild increased activity in both feet on the first and second phase of bone scan likely related to cellulitis or hyperemia. Medications Medications Current Medications Acetaminophen (Acetaminophen 325 Mg Tablet) 650 mg PO Q6H PRN PRN Reason: Pain, Mild (Pain Scale 1-3) Atorvastatin Calcium (Atorvastatin Calcium 40 Mg Tablet) 40 mg PO BEDTIME [facility] Last Admin: 05/01/22 20:43 Dose: 40 mg Clonazepam (Clonazepam 1 Mg Tablet) 1 mg PO BID PRN PRN Reason: Anxiety Last Admin: 05/02/22 07:32 Dose: 1 mg Clonidine HCl (Clonidine Hcl 0.2 Mg Tablet) 0.2 mg PO TID [facility]; Protocol Last Admin: 05/02/22 14:48 Dose: 0.2 mg Dextrose (Dextrose 50 % 25 Gm/50 Ml Syringe) 25 gm IVPUSH Q15M PRN; Protocol PRN Reason: per Hypoglycemia Standing Ord. Docusate Sodium (Docusate Sodium 100 Mg Capsule) 100 mg PO DAILY PRN PRN Reason: Constipation Enoxaparin Sodium (Enoxaparin Sodium 40 Mg/0.4 Ml Syringe) 40 mg SUBCUT Q24H [facility] Last Admin: 05/01/22 20:47 Dose: Not Given Furosemide (Furosemide 40 Mg Tablet) 40 mg PO BID@0800,1700 [facility]; Protocol Last Admin: 05/02/22 07:32 Dose: 40 mg Gabapentin (Gabapentin 600 Mg Tablet) 600 mg PO TID [facility] Last Admin: 05/02/22 14:48 Dose: 600 mg Glucose (Glucose Gel 15 Gm Gel..Gram.) 15 gm PO Q15M PRN; Protocol PRN Reason: per Hypoglycemia Standing Ord. Vancomycin HCl 1,000 mg/ (Sodium Chloride) 270 mls @ 270 mls/hr IV Q12H [facility] Last Infusion: 05/02/22 07:43 Dose: Infused Insulin Glargine (Insulin Glargine,Hum.Rec.Anlog 100 Unit/Ml 10 Ml Vial) 120 unit SUBCUT BEDTIME [facility] Last Admin: 05/01/22 20:46 Dose: 120 unit Insulin Human Lispro (Insulin Lispro 100 Unit/Ml 3 Ml Vial) 15 unit SUBCUT TIDWM [facility] Last Admin: 05/02/22 11:47 Dose: 15 unit Insulin Human Lispro (Insulin Lispro 100 Unit/Ml 3 Ml Vial) 0 unit SUBCUT QIDACHS [facility]; Protocol Last Admin: 05/02/22 11:47 Dose: 4 unit Levofloxacin (Levofloxacin 500 Mg Tablet) 500 mg PO Q24H [facility] Last Admin: 05/02/22 13:08 Dose: 500 mg Methadone HCl (Methadone Hcl 20 Mg/2 Ml Oral.Conc) 70 mg PO DAILY [facility] Last Admin: 05/02/22 07:34 Dose: 70 mg Ondansetron HCl (Ondansetron Hcl 4 Mg/2 Ml Vial) 4 mg IVPUSH Q8H PRN PRN Reason: Nausea and Vomiting Oxycodone HCl (Oxycodone Hcl Immed Release 5 Mg Tablet) 10 mg PO Q4H PRN PRN Reason: Pain, Moderate (Pain Scale 4-6 Last Admin: 05/02/22 13:08 Dose: 10 mg Pharmacy Consult (Consult Rx Perform Med Rec) 1 each MISCELLANE ONCE PRN PRN Reason: Consult order Pharmacy Consult (Consult Rx Perform Med Rec) 1 each MISCELLANE ONCE PRN PRN Reason: Consult order Pharmacy Consult (Consult Rx Vancomycin Dosing) 1 each MISCELLANE DAILY PRN PRN Reason: Consult order Quetiapine Fumarate (Quetiapine Fumarate 100 Mg Tablet) 100 mg PO BID [facility] Last Admin: 05/02/22 07:32 Dose: 100 mg Sodium Chloride (0.9 % Sodium Chloride Flush 3 Ml Syringe) 3 ml IVFLUSH QSHIFT [facility] Last Admin: 05/02/22 07:36 Dose: Not Given Sodium Chloride (0.9 % Sodium Chloride Flush 10 Ml Syringe) 5 ml IVFLUSH TID [facility] Last Admin: 05/02/22 07:34 Dose: 5 ml Allergies Allergies Allergy/AdvReac Type Severity Reaction Status Date / Time prochlorperazine Allergy Intermediate Hives Verified 03/22/22 10:13 [From Compazine] aspirin [ASA] Allergy Unknown HIVES Unverified 02/20/20 16:18 naproxen [From NAPROSYN] Allergy Unknown HIVES Unverified 02/20/20 16:18 NSAIDS (Non-Steroidal Allergy Unknown HIVES Unverified 02/20/20 16:18 Anti-Inflamma [NSAIDS (NON-STEROIDAL ANTI-INFLAMMA] Penicillins [PENICILLINS] Allergy Unknown HIVES Unverified 02/20/20 16:18 Assessment & Plan Assessment & Plan (1) Opioid use disorder: Status: Acute Code(s): F11.90 - Opioid use, unspecified, uncomplicated Assessment and Plan: * methadone 10mg this evening * methadone 80mg tomorrow morning * will continue to follow I spent __15____ minutes with the patient and/or on the patient floor today, greater than?50% of which was spent counseling/coordinating care.
[2022-05-02 16:00] VITALS: BP 141/72; PULSE 84; RESP 18; TEMP 37.1; O2SAT 96
[2022-05-02 16:40] LABS: Glucose, Whole Blood 164 mg/dL (60-115)
[2022-05-02] MEDS: 0.9 % Sodium Chloride Flush 3 ML SYRINGE IVFLUSH (17:04)
[2022-05-02 18:01] LABS: Vancomycin Trough 11.2 mcg/mL (10.0-20.0)
--- NOTE | 2022-05-02 18:16 | HE.PHANOTE ---
VANCO TROUGH 11.2 WITH AUC EXPECTED OF 409 WITH 1 GM Q12H DOSING, WILL INCREASE DOSE TO 1250 MG TO GET AUC OF 511 SINCE WE ARE TREATING BONE AND JOINT
[2022-05-02] MEDS: vancomycin HCL 1,250 MG in 0.9 % Sodium Chloride 250 ML 166.67 MG IV (18:40)
[2022-05-02 20:00] VITALS: BP 118/62; PULSE 66; RESP 17; TEMP 36.4; O2SAT 98
[2022-05-02 20:58] LABS: Glucose, Whole Blood 181 mg/dL (60-115)
[2022-05-02] MEDS: Atorvastatin Calcium 40 MG TABLET PO (21:13)
[2022-05-02] MEDS: Insulin Glargine,Hum.rec.anlog 100 UNIT/ML 10 ML VIAL 120 UNIT SUBCUT (21:14)
[2022-05-02] MEDS: methADONE HCl 20 MG/2 ML ORAL.CONC 10 MG PO (21:16)
[2022-05-02 23:45] VITALS: BP 132/71; PULSE 64; RESP 16; TEMP 36; O2SAT 98
[2022-05-03 02:53] VITALS: BP 138/71; PULSE 65; RESP 18; TEMP 36.3; O2SAT 97
[2022-05-03] MEDS: oxyCODONE HCl Immed Release 5 MG TABLET 10 MG PO ×5 (03:04→20:10)
[2022-05-03] MEDS: vancomycin HCL 1,250 MG in 0.9 % Sodium Chloride 250 ML 166.67 MG IV ×2 (05:34→20:15)
[2022-05-03 06:38] LABS: Estimated Glomerular Filt Rate > 60
[2022-05-03 07:10] VITALS: BP 138/67; PULSE 72; RESP 18; TEMP 36.6; O2SAT 96
[2022-05-03 07:28] LABS: Glucose, Whole Blood 371 mg/dL (60-115)
[2022-05-03] MEDS: Insulin Lispro 100 UNIT/ML 3 ML VIAL 15 UNIT SUBCUT ×3 (07:49→16:48)
[2022-05-03] MEDS: cloNIDine HCL 0.2 MG TABLET PO ×3 (07:51→20:10)
[2022-05-03] MEDS: clonazePAM 1 MG TABLET PO ×2 (07:52→20:10)
[2022-05-03] MEDS: Gabapentin 600 MG TABLET PO ×3 (07:52→20:10)
[2022-05-03] MEDS: QUEtiapine Fumarate 100 MG TABLET PO ×2 (07:52→20:10)
[2022-05-03] MEDS: Furosemide 40 MG TABLET PO ×2 (07:52→16:20)
[2022-05-03] MEDS: methADONE HCl 20 MG/2 ML ORAL.CONC 85 MG PO (07:53)
[2022-05-03] MEDS: 0.9 % Sodium Chloride Flush 10 ML SYRINGE 5 ML IVFLUSH ×3 (08:01→20:16)
[2022-05-03] MEDS: Insulin Lispro 100 UNIT/ML 3 ML VIAL SUBCUT ×4 (08:03→20:17)
--- NOTE | 2022-05-03 08:04 | HE.PHANOTE ---
YAKOV MARIA CONTINUE CURRENT DOSE; NEXT TROUGH DUE 05/04 @500 ALLY
--- NOTE | 2022-05-03 09:39 | MHC.CM.PN ---
CALL TO [facility] [phone] - SCREEN DEPARTMENT CLINICALS DISCUSSED WITH MARI AND FAXED TO SCREEN DEPT TO HER ATTENTION @ [phone] CONTACT INFO FOR CASE MANAGEMENT LEFT
[2022-05-03 11:04] VITALS: BP 115/55; PULSE 62; RESP 18; TEMP 36.4; O2SAT 98
[2022-05-03 11:17] LABS: Glucose, Whole Blood 324 mg/dL (60-115)
--- NOTE | 2022-05-03 14:03 | MHC.CM.PN ---
PATIENT MAY ALSO REQUIRE 2 WEEKS OF IV CEFEPIME. CASE MANAGEMENT FOLLOWING
[2022-05-03] MEDS: levoFLOXacin 500 MG TABLET PO (14:07)
[2022-05-03 15:34] VITALS: BP 109/59; PULSE 66; RESP 18; TEMP 36.9; O2SAT 97
[2022-05-03 15:55] LABS: Glucose, Whole Blood 161 mg/dL (60-115)
[2022-05-03] MEDS: 0.9 % Sodium Chloride Flush 3 ML SYRINGE IVFLUSH (16:21)
--- NOTE | 2022-05-03 17:32 | HO.PM.IMPN ---
Subjective Subjective Date of Service: 05/03/22 Interval History: No acute issues overnight.? Tolerating therapies.? Awaiting placement Review of Systems Denies chest painor shortness of breathor nausea vomiting diarrhae or fever or chills Physical Exam Vital Signs: Vital Signs: Last Vital Signs Temp 98.4 F 05/03/22 15:34 Pulse 66 05/03/22 15:34 Resp 18 05/03/22 15:34 BP 109/59 L 05/03/22 15:34 Pulse Ox 97 05/03/22 15:34 O2 Del Method 05/03/22 15:34 O2 Flow Rate 2.0 05/03/22 15:34 BMI result Body Mass Index 36.0 Appearance: Alert.? Oriented X3.? not in distress.? cvs: rrr, [id number] res: clear to auscultation ,no rhonchii or wheezing abd: no rebound or guarding ,nt, bs present. ext pulses present , no cyanosis . neuro: axo3 , nonfocal. Objective Data Active Medications Acetaminophen (Acetaminophen 325 Mg Tablet) 650 mg PO Q6H PRN PRN Reason: Pain, Mild (Pain Scale 1-3) Atorvastatin Calcium (Atorvastatin Calcium 40 Mg Tablet) 40 mg PO BEDTIME [facility] Last Admin: 05/02/22 21:13 Dose: 40 mg Documented By: SUPRIYA Clonazepam (Clonazepam 1 Mg Tablet) 1 mg PO BID PRN PRN Reason: Anxiety Last Admin: 05/03/22 07:52 Dose: 1 mg Documented By: REY Clonidine HCl (Clonidine Hcl 0.2 Mg Tablet) 0.2 mg PO TID [facility]; Protocol Last Admin: 05/03/22 14:07 Dose: 0.2 mg Documented By: REY Dextrose (Dextrose 50 % 25 Gm/50 Ml Syringe) 25 gm IVPUSH Q15M PRN; Protocol PRN Reason: per Hypoglycemia Standing Ord. Docusate Sodium (Docusate Sodium 100 Mg Capsule) 100 mg PO DAILY PRN PRN Reason: Constipation Enoxaparin Sodium (Enoxaparin Sodium 40 Mg/0.4 Ml Syringe) 40 mg SUBCUT Q24H [facility] Last Admin: 05/02/22 21:18 Dose: Not Given Documented By: SUPRIYA Non-Admin Reason: Patient Refused Furosemide (Furosemide 40 Mg Tablet) 40 mg PO BID@0800,1700 [facility]; Protocol Last Admin: 05/03/22 16:20 Dose: 40 mg Documented By: SUSSY Gabapentin (Gabapentin 600 Mg Tablet) 600 mg PO TID [facility] Last Admin: 05/03/22 14:07 Dose: 600 mg Documented By: REY Glucose (Glucose Gel 15 Gm Gel..Gram.) 15 gm PO Q15M PRN; Protocol PRN Reason: per Hypoglycemia Standing Ord. Vancomycin HCl 1,250 mg/ (Sodium Chloride) 250 mls @ 166.667 mls/hr IV Q12H [facility] Last Infusion: 05/03/22 08:04 Dose: 166.67 mls/hr Documented By: REY Insulin Glargine (Insulin Glargine,Hum.Rec.Anlog 100 Unit/Ml 10 Ml Vial) 120 unit SUBCUT BEDTIME [facility] Last Admin: 05/02/22 21:14 Dose: 120 unit Documented By: SUPRIYA Insulin Human Lispro (Insulin Lispro 100 Unit/Ml 3 Ml Vial) 15 unit SUBCUT TIDWM [facility] Last Admin: 05/03/22 16:48 Dose: 15 unit Documented By: SUSSY Insulin Human Lispro (Insulin Lispro 100 Unit/Ml 3 Ml Vial) 0 unit SUBCUT QIDACHS [facility]; Protocol Last Admin: 05/03/22 16:20 Dose: 2 unit Documented By: SUSSY Levofloxacin (Levofloxacin 500 Mg Tablet) 500 mg PO Q24H [facility] Last Admin: 05/03/22 14:07 Dose: 500 mg Documented By: REY Methadone HCl (Methadone Hcl 20 Mg/2 Ml Oral.Conc) 85 mg PO DAILY [facility] Last Admin: 05/03/22 07:53 Dose: 85 mg Documented By: REY Ondansetron HCl (Ondansetron Hcl 4 Mg/2 Ml Vial) 4 mg IVPUSH Q8H PRN PRN Reason: Nausea and Vomiting Oxycodone HCl (Oxycodone Hcl Immed Release 5 Mg Tablet) 10 mg PO Q4H PRN PRN Reason: Pain, Moderate (Pain Scale 4-6 Last Admin: 05/03/22 16:19 Dose: 10 mg Documented By: SUSSY Pharmacy Consult (Consult Rx Perform Med Rec) 1 each MISCELLANE ONCE PRN PRN Reason: Consult order Pharmacy Consult (Consult Rx Perform Med Rec) 1 each MISCELLANE ONCE PRN PRN Reason: Consult order Pharmacy Consult (Consult Rx Vancomycin Dosing) 1 each MISCELLANE DAILY PRN PRN Reason: Consult order Quetiapine Fumarate (Quetiapine Fumarate 100 Mg Tablet) 100 mg PO BID [facility] Last Admin: 05/03/22 07:52 Dose: 100 mg Documented By: REY Sodium Chloride (0.9 % Sodium Chloride Flush 3 Ml Syringe) 3 ml IVFLUSH QSHIFT [facility] Last Admin: 05/03/22 16:21 Dose: 3 ml Documented By: SUSSY Sodium Chloride (0.9 % Sodium Chloride Flush 10 Ml Syringe) 5 ml IVFLUSH TID [facility] Last Admin: 05/03/22 16:21 Dose: 5 ml Documented By: SUSSY Labs CBC & Chem 7: 04/29/22 05:10 05/03/22 05:27 Labs: Laboratory Results - last 24 hr 05/02/22 05/02/22 05/03/22 17:26 20:54 05:27 Estim Creat Clear Calc 118.0 Estimated GFR > 60 POC Glucose 181 H Vancomycin Trough 11.2 05/03/22 05/03/22 05/03/22 07:14 11:08 15:28 Estim Creat Clear Calc Estimated GFR POC Glucose 371 H* 324 H 161 H Vancomycin Trough Assessment and Plan (1) Acute osteomyelitis: Status: Acute (2) Diabetes type 2 with atherosclerosis of arteries of extremities: Status: Acute (3) HTN (hypertension): Status: Acute Plan 51-year-old male with history of diabetes type 2 insulin dependent, peripheral arterial disease status post right transmetatarsal amputation, chronic wounds bilateral, polysubstance abuse, hypertension, HLD, anxiety, chronic respiratory a proxy of following COVID-19 on 2 L oxygen 26/12 comes here for worsening of the wound on the top of left foot pain? Patient was just admitted and discharged on 03/21 for a right amputated metatarsal foot ulcer was given antibiotics patient is still taking doxycycline patient says was had a small wound on the top of the left foot when he was admitted which got worse in last 3 days it just opened up no fever no chills patient unable to follow up with wound clinic since discharge on 03/21. Now with PICC line awaiting placement for long-term antibiotics 1. Acute osteomyelitis -PICC line without issue -Vancomycin(3) IV along with p.o. Levaquin(4) x6 weeks -awaiting placement 2. DM 2 -continue long-acting along with lispro sliding scale -adjust as indicated 3. Hypertension -acceptable control on current therapies Full code Lovenox Patient will require ongoing hospitalization for IV antibiotics to treat acute osteomyelitis. Quality Stroke Does the patient have a stroke diagnosis?: No VTE Prior VTE?: No VTE Risk Level:: Medical - moderate - high VTE Device Contraindication: Treatment Not Indicated VTE Drug Contraindication: N/A - Med Ordered
[2022-05-03 19:45] LABS: Glucose, Whole Blood 253 mg/dL (60-115)
[2022-05-03 19:58] VITALS: BP 135/73; PULSE 62; RESP 18; TEMP 37; O2SAT 97
[2022-05-03] MEDS: Atorvastatin Calcium 40 MG TABLET PO (20:10)
[2022-05-03] MEDS: Insulin Glargine,Hum.rec.anlog 100 UNIT/ML 10 ML VIAL 120 UNIT SUBCUT (20:16)
[2022-05-04] MEDS: oxyCODONE HCl Immed Release 5 MG TABLET 10 MG PO ×5 (03:10→21:11)
[2022-05-04 04:00] VITALS: BP 124/67; PULSE 64; RESP 14; TEMP 36.2; O2SAT 98
[2022-05-04 07:10] VITALS: BP 140/74; PULSE 63; RESP 19; TEMP 36.3; O2SAT 98
[2022-05-04 07:38] LABS: Glucose, Whole Blood 304 mg/dL (60-115)
[2022-05-04] MEDS: Insulin Lispro 100 UNIT/ML 3 ML VIAL SUBCUT ×4 (07:45→20:29)
[2022-05-04] MEDS: Insulin Lispro 100 UNIT/ML 3 ML VIAL 15 UNIT SUBCUT ×2 (07:45→11:20)
[2022-05-04] MEDS: Gabapentin 600 MG TABLET PO ×3 (07:46→20:09)
[2022-05-04] MEDS: Furosemide 40 MG TABLET PO ×2 (07:46→16:57)
[2022-05-04] MEDS: cloNIDine HCL 0.2 MG TABLET PO ×3 (07:46→20:08)
[2022-05-04] MEDS: clonazePAM 1 MG TABLET PO ×2 (07:47→21:10)
[2022-05-04] MEDS: QUEtiapine Fumarate 100 MG TABLET PO ×2 (07:47→20:09)
[2022-05-04] MEDS: methADONE HCl 20 MG/2 ML ORAL.CONC 85 MG PO (07:48)
[2022-05-04 08:00] LABS: Creatinine Clr Calc Pharmacy 141.9; Estimated Glomerular Filt Rate > 60
[2022-05-04 08:03] LABS: Vancomycin Trough 17.4 mcg/mL (10.0-20.0)
--- NOTE | 2022-05-04 08:13 | HE.PHANOTE ---
RE: susie Pt's trough on 05/04/22 came back at 17.4; decreased dose to 1000mg Q12H with predicted AUC 473mg/L. Next level to be drawn after two doses 05/05/22 @0700
[2022-05-04] MEDS: 0.9 % Sodium Chloride Flush 10 ML SYRINGE 5 ML IVFLUSH ×3 (08:39→20:08)
[2022-05-04] MEDS: vancomycin HCL 1,000 MG in 0.9 % Sodium Chloride 250 ML 270 MG IV ×2 (08:39→20:09)
[2022-05-04 10:57] VITALS: BP 108/60; PULSE 65; RESP 18; TEMP 36; O2SAT 96
[2022-05-04 11:05] LABS: Glucose, Whole Blood 231 mg/dL (60-115)
--- NOTE | 2022-05-04 12:56 | MHC.RECOVRN ---
This headline writer met w/ pt, pt alert, sitting up in bed, watching t.v. Pt appeared comfortable, in regards to methadone pt states feels the same, will I be going up? . Pt informed, will not be going up today. Provider aware.
[2022-05-04] MEDS: levoFLOXacin 500 MG TABLET PO (14:25)
--- NOTE | 2022-05-04 14:50 | P.PNIM_ITS ---
Subjective Subjective Date of Service: 05/04/22 Interval History: No acute issues overnight.? Tolerating therapies.? Awaiting placement Review of Systems Denies chest painor? shortness of breathor? nausea vomiting diarrhae or fever or chills Physical Exam Vital Signs: Vital Signs: Last Vital Signs Temp 96.8 F 05/04/22 10:57 Pulse 65 05/04/22 10:57 Resp 18 05/04/22 10:57 BP 108/60 05/04/22 10:57 Pulse Ox 96 05/04/22 10:57 O2 Del Method 05/04/22 10:57 O2 Flow Rate 2 05/04/22 10:57 BMI result Body Mass Index 36.0 Appearance: Alert.? Oriented X3.? not in distress.? cvs: [id number], [id number] res: clear to auscultation ,no rhonchii or wheezing abd: no rebound or guarding ,nt, bs present. ext pulses present , no cyanosis .foot ulcer area seems improving,no discharge neuro: axo3 , nonfocal. Objective Data Active Medications Acetaminophen (Acetaminophen 325 Mg Tablet) 650 mg PO Q6H PRN PRN Reason: Pain, Mild (Pain Scale 1-3) Atorvastatin Calcium (Atorvastatin Calcium 40 Mg Tablet) 40 mg PO BEDTIME REPLACED BY [facility] Last Admin: 05/03/22 20:10 Dose: 40 mg Documented By: SUPRIYA Clonazepam (Clonazepam 1 Mg Tablet) 1 mg PO BID PRN PRN Reason: Anxiety Last Admin: 05/04/22 07:47 Dose: 1 mg Documented By: REY Clonidine HCl (Clonidine Hcl 0.2 Mg Tablet) 0.2 mg PO TID [facility]; Protocol Last Admin: 05/04/22 14:23 Dose: 0.2 mg Documented By: REY Dextrose (Dextrose 50 % 25 Gm/50 Ml Syringe) 25 gm IVPUSH Q15M PRN; Protocol PRN Reason: per Hypoglycemia Standing Ord. Docusate Sodium (Docusate Sodium 100 Mg Capsule) 100 mg PO DAILY PRN PRN Reason: Constipation Enoxaparin Sodium (Enoxaparin Sodium 40 Mg/0.4 Ml Syringe) 40 mg SUBCUT Q24H [facility] Last Admin: 05/03/22 20:11 Dose: Not Given Documented By: SUPRIYA Non-Admin Reason: Patient Refused Furosemide (Furosemide 40 Mg Tablet) 40 mg PO BID@0800,1700 [facility]PL[facility]ED [facility]; Protocol Last Admin: 05/04/22 07:46 Dose: 40 mg Documented By: REY Gabapentin (Gabapentin 600 Mg Tablet) 600 mg PO TID [facility]PL[facility] Last Admin: 05/04/22 14:23 Dose: 600 mg Documented By: REY Glucose (Glucose Gel 15 Gm Gel..Gram.) 15 gm PO Q15M PRN; Protocol PRN Reason: per Hypoglycemia Standing Ord. Vancomycin HCl 1,000 mg/ (Sodium Chloride) 270 mls @ 270 mls/hr IV Q12H REPLACED BY [facility] Last Infusion: 05/04/22 10:13 Dose: 270 mls/hr Documented By: REY Insulin Glargine (Insulin Glargine,Hum.Rec.Anlog 100 Unit/Ml 10 Ml Vial) 120 unit SUBCUT BEDTIME [facility]PLACED [facility] Last Admin: 05/03/22 20:16 Dose: 120 unit Documented By: SUPRIYA Insulin Human Lispro (Insulin Lispro 100 Unit/Ml 3 Ml Vial) 15 unit SUBCUT TIDWM REPLACED BY [facility] Last Admin: 05/04/22 11:20 Dose: 15 unit Documented By: REY Insulin Human Lispro (Insulin Lispro 100 Unit/Ml 3 Ml Vial) 0 unit SUBCUT QIDACHS REPLACED BY [facility]; Protocol Last Admin: 05/04/22 11:21 Dose: 4 unit Documented By: REY Levofloxacin (Levofloxacin 500 Mg Tablet) 500 mg PO Q24H REPLACED BY [facility] Last Admin: 05/04/22 14:25 Dose: 500 mg Documented By: REY Methadone HCl (Methadone Hcl 20 Mg/2 Ml Oral.Conc) 85 mg PO DAILY [facility]PL[facility]ED [facility] Last Admin: 05/04/22 07:48 Dose: 85 mg Documented By: REY Ondansetron HCl (Ondansetron Hcl 4 Mg/2 Ml Vial) 4 mg IVPUSH Q8H PRN PRN Reason: Nausea and Vomiting Oxycodone HCl (Oxycodone Hcl Immed Release 5 Mg Tablet) 10 mg PO Q4H PRN PRN Reason: Pain, Moderate (Pain Scale 4-6 Last Admin: 05/04/22 12:00 Dose: 10 mg Documented By: REY Pharmacy Consult (Consult Rx Perform Med Rec) 1 each MISCELLANE ONCE PRN PRN Reason: Consult order Pharmacy Consult (Consult Rx Perform Med Rec) 1 each MISCELLANE ONCE PRN PRN Reason: Consult order Pharmacy Consult (Consult Rx Vancomycin Dosing) 1 each MISCELLANE DAILY PRN PRN Reason: Consult order Quetiapine Fumarate (Quetiapine Fumarate 100 Mg Tablet) 100 mg PO BID REPLACED BY [facility] Last Admin: 05/04/22 07:47 Dose: 100 mg Documented By: REY Sodium Chloride (0.9 % Sodium Chloride Flush 3 Ml Syringe) 3 ml IVFLUSH QSHIFT REPLACED BY [facility] Last Admin: 05/04/22 09:02 Dose: Not Given Documented By: REY Non-Admin Reason: No Access Sodium Chloride (0.9 % Sodium Chloride Flush 10 Ml Syringe) 5 ml IVFLUSH TID REPLACED BY [facility] Last Admin: 05/04/22 08:39 Dose: 5 ml Documented By: REY Labs CBC & Chem 7: 04/29/22 05:10 05/04/22 05:30 Labs: Laboratory Results - last 24 hr 05/03/22 05/03/22 05/04/22 15:28 19:41 05:30 Estim Creat Clear Calc Estimated GFR POC Glucose 161 H 253 H Vancomycin Trough 17.4 05/04/22 05/04/22 05/04/22 05:30 07:15 11:00 Estim Creat Clear Calc 141.9 Estimated GFR > 60 POC Glucose 304 H 231 H Vancomycin Trough Assessment and Plan (1) Acute osteomyelitis: Status: Acute (2) Diabetes type 2 with atherosclerosis of arteries of extremities: Status: Acute (3) HTN (hypertension): Status: Acute Plan 51-year-old male with history of diabetes type 2 insulin dependent, peripheral a rterial disease status post right transmetatarsal amputation, chronic wounds bilateral, polysubstance abuse, hypertension, HLD, anxiety, chronic respiratory a proxy of following COVID-19 on 2 L oxygen 26/12 comes here for worsening of the wound on the top of left foot pain? Patient was just admitted and discharged on 03/21 for a right amputated metatarsal foot ulcer was given antibiotics patient is still taking doxycycline patient says was had a small wound on the top of the left foot when he was admitted which got worse in last 3 days it just opened up no fever no chills patient unable to follow up with wound clinic since discharge on 03/21. Now with PICC line awaiting placement for long-term antibiotics 1. Acute osteomyelitis -PICC line without issue -Vancomycin(4) IV along with p.o. Levaquin(5) x6 weeks -awaiting placement 2. DM 2 -continue long-acting along with lispro sliding scale -adjust as indicated 3. Hypertension -acceptable control on current therapies Full code Lovenox Patient will require ongoing hospitalization for IV antibiotics to treat acute osteomyelitis,awaiting placement Quality Stroke Does the patient have a stroke diagnosis?: No VTE Prior VTE?: No VTE Risk Level:: Medical - moderate - high VTE Device Contraindication: Treatment Not Indicated VTE Drug Contraindication: N/A - Med Ordered
--- NOTE | 2022-05-04 14:52 | MHC.CM.PN ---
CALL TO [facility] ADMISSIONS SCREEN DEPT ( [phone] ASK FOR ADMISSIONS, THEN SCREENING) MESSAGE LEFT FOR A CALL BACK TO THIS [facility] DEPARTMENT. CONTACT NUMBERS FOR THIS [facility] LEFT ON VOICEMAIL
[2022-05-04 15:41] VITALS: BP 141/73; PULSE 69; RESP 18; TEMP 36.4; O2SAT 99
[2022-05-04 15:56] LABS: Glucose, Whole Blood 268 mg/dL (60-115)
[2022-05-04] MEDS: 0.9 % Sodium Chloride Flush 3 ML SYRINGE IVFLUSH (16:55)
--- NOTE | 2022-05-04 17:09 | PC.NURSE ---
P BS [id number],Dr. Patel notified,will hold 15 units of scheduled Humulog insulin tonight
[2022-05-04 20:00] VITALS: BP 142/76; PULSE 88; RESP 18; TEMP 37; O2SAT 98
[2022-05-04] MEDS: Atorvastatin Calcium 40 MG TABLET PO (20:09)
--- NOTE | 2022-05-04 20:20 | PC.NURSE ---
patient refuses Lovenox,Dr. Smyth made aware,risks explained to patient,encouraged activity
[2022-05-04 20:22] LABS: Glucose, Whole Blood 297 mg/dL (60-115)
[2022-05-04] MEDS: Insulin Glargine,Hum.rec.anlog 100 UNIT/ML 10 ML VIAL 120 UNIT SUBCUT (20:28)
[2022-05-04 23:50] VITALS: BP 133/73; PULSE 65; RESP 14; TEMP 36.6; O2SAT 97
[2022-05-05] VITALS (7 sets, daily range): BP systolic 103–161; BP diastolic 59–84; PULSE 60–68; RESP 14–18; TEMP 36.3–36.9; O2SAT 92–99
[2022-05-05] MEDS: oxyCODONE HCl Immed Release 5 MG TABLET 10 MG PO ×5 (02:53→20:39)
[2022-05-05 06:19] LABS: Vancomycin Random 8.9 mcg/mL (15-20)
--- NOTE | 2022-05-05 06:37 | HE.PHANOTE ---
RE: susie Thought patient might be dumping per last trough; trough to day came back low at 8.9; increased dose back to 1250mg Q12H with predicted AUC 532mg/L. Another level to be drawn 05/06/22 @0600
[2022-05-05 06:40] LABS: Creatinine Clr Calc Pharmacy 128.1; Estimated Glomerular Filt Rate > 60
[2022-05-05 07:32] LABS: Glucose, Whole Blood 301 mg/dL (60-115)
[2022-05-05] MEDS: Gabapentin 600 MG TABLET PO ×3 (07:53→20:39)
[2022-05-05] MEDS: QUEtiapine Fumarate 100 MG TABLET PO ×2 (07:53→20:39)
[2022-05-05] MEDS: Furosemide 40 MG TABLET PO ×2 (07:54→16:22)
[2022-05-05] MEDS: Insulin Lispro 100 UNIT/ML 3 ML VIAL 15 UNIT SUBCUT (07:54)
[2022-05-05] MEDS: cloNIDine HCL 0.2 MG TABLET PO ×3 (07:54→20:39)
[2022-05-05] MEDS: clonazePAM 1 MG TABLET PO ×2 (07:54→20:55)
[2022-05-05] MEDS: Insulin Lispro 100 UNIT/ML 3 ML VIAL SUBCUT ×4 (07:54→20:56)
[2022-05-05] MEDS: vancomycin HCL 1,250 MG in 0.9 % Sodium Chloride 250 ML 166.67 MG IV (07:55)
[2022-05-05] MEDS: methADONE HCl 20 MG/2 ML ORAL.CONC 85 MG PO (07:55)
[2022-05-05] MEDS: 0.9 % Sodium Chloride Flush 10 ML SYRINGE 5 ML IVFLUSH ×3 (07:56→22:27)
[2022-05-05] MEDS: 0.9 % Sodium Chloride Flush 3 ML SYRINGE IVFLUSH (07:56)
--- NOTE | 2022-05-05 09:43 | HE.PHANOTE ---
RE: vanco dose 05/05/22 James called me at 0945 to let me know he never put the medication in the bag for pt's am dose so pt only got 250mL NS; advised him to re-administer.
[2022-05-05 11:07] LABS: Glucose, Whole Blood 205 mg/dL (60-115)
--- NOTE | 2022-05-05 13:50 | HO.PM.IMPN ---
Subjective Subjective Date of Service: 05/05/22 Interval History: No acute issues overnight.? Tolerating therapies.? Awaiting placement Review of Systems Denies chest painor? shortness of breathor? nausea vomiting diarrhae or fever or chills Physical Exam Vital Signs: Vital Signs: Last Vital Signs Temp 97.6 F 05/05/22 11:18 Pulse 62 05/05/22 11:18 Resp 16 05/05/22 11:18 BP 103/59 L 05/05/22 11:18 Pulse Ox 99 05/05/22 11:18 O2 Del Method 05/05/22 11:18 O2 Flow Rate 2.0 05/05/22 11:18 BMI result Body Mass Index 36.0 Appearance: Alert.? Oriented X3.? not in distress.? cvs: [id number], [id number] res: clear to auscultation ,no rhonchii or wheezing abd: no rebound or guarding ,nt, bs present. ext pulses present , no cyanosis .foot ulcer area seems improving,no discharge neuro: axo3 , nonfocal. Objective Data Active Medications Acetaminophen (Acetaminophen 325 Mg Tablet) 650 mg PO Q6H PRN PRN Reason: Pain, Mild (Pain Scale 1-3) Atorvastatin Calcium (Atorvastatin Calcium 40 Mg Tablet) 40 mg PO BEDTIME [facility] Last Admin: 05/04/22 20:09 Dose: 40 mg Documented By: TORSTEN Clonazepam (Clonazepam 1 Mg Tablet) 1 mg PO BID PRN PRN Reason: Anxiety Last Admin: 05/05/22 07:54 Dose: 1 mg Documented By: SOWMYA Clonidine HCl (Clonidine Hcl 0.2 Mg Tablet) 0.2 mg PO TID [facility]; Protocol Last Admin: 05/05/22 07:54 Dose: 0.2 mg Documented By: SOWMYA Dextrose (Dextrose 50 % 25 Gm/50 Ml Syringe) 25 gm IVPUSH Q15M PRN; Protocol PRN Reason: per Hypoglycemia Standing Ord. Docusate Sodium (Docusate Sodium 100 Mg Capsule) 100 mg PO DAILY PRN PRN Reason: Constipation Enoxaparin Sodium (Enoxaparin Sodium 40 Mg/0.4 Ml Syringe) 40 mg SUBCUT Q24H [facility] Last Admin: 05/04/22 20:11 Dose: Not Given Documented By: TORSTEN Non-Admin Reason: Patient Refused Furosemide (Furosemide 40 Mg Tablet) 40 mg PO BID@0800,1700 [facility]; Protocol Last Admin: 05/05/22 07:54 Dose: 40 mg Documented By: SOWMYA Gabapentin (Gabapentin 600 Mg Tablet) 600 mg PO TID [facility] Last Admin: 05/05/22 07:53 Dose: 600 mg Documented By: SOWMYA Glucose (Glucose Gel 15 Gm Gel..Gram.) 15 gm PO Q15M PRN; Protocol PRN Reason: per Hypoglycemia Standing Ord. Vancomycin HCl 1,250 mg/ (Sodium Chloride) 250 mls @ 166.667 mls/hr IV Q12H [facility] Last Infusion: 05/05/22 10:21 Dose: 0 mls/hr Documented By: SOWMYA Insulin Glargine (Insulin Glargine,Hum.Rec.Anlog 100 Unit/Ml 10 Ml Vial) 120 unit SUBCUT BEDTIME [facility] Last Admin: 05/04/22 20:28 Dose: 120 unit Documented By: TORSTEN Insulin Human Lispro (Insulin Lispro 100 Unit/Ml 3 Ml Vial) 15 unit SUBCUT TIDWM [facility] Last Admin: 05/05/22 11:32 Dose: Not Given Documented By: SOWMYA Non-Admin Reason: Physician Approved Insulin Human Lispro (Insulin Lispro 100 Unit/Ml 3 Ml Vial) 0 unit SUBCUT QIDACHS [facility]; Protocol Last Admin: 05/05/22 11:31 Dose: 4 unit Documented By: SOWMYA Levofloxacin (Levofloxacin 500 Mg Tablet) 500 mg PO Q24H [facility] Last Admin: 05/04/22 14:25 Dose: 500 mg Documented By: REY Methadone HCl (Methadone Hcl 20 Mg/2 Ml Oral.Conc) 85 mg PO DAILY [facility] Last Admin: 05/05/22 07:55 Dose: 85 mg Documented By: SOWMYA Ondansetron HCl (Ondansetron Hcl 4 Mg/2 Ml Vial) 4 mg IVPUSH Q8H PRN PRN Reason: Nausea and Vomiting Oxycodone HCl (Oxycodone Hcl Immed Release 5 Mg Tablet) 10 mg PO Q4H PRN PRN Reason: Pain, Moderate (Pain Scale 4-6 Last Admin: 05/05/22 12:21 Dose: 10 mg Documented By: TAN Pharmacy Consult (Consult Rx Perform Med Rec) 1 each MISCELLANE ONCE PRN PRN Reason: Consult order Pharmacy Consult (Consult Rx Perform Med Rec) 1 each MISCELLANE ONCE PRN PRN Reason: Consult order Pharmacy Consult (Consult Rx Vancomycin Dosing) 1 each MISCELLANE DAILY PRN PRN Reason: Consult order Quetiapine Fumarate (Quetiapine Fumarate 100 Mg Tablet) 100 mg PO BID [facility] Last Admin: 05/05/22 07:53 Dose: 100 mg Documented By: SOWMYA Sodium Chloride (0.9 % Sodium Chloride Flush 3 Ml Syringe) 3 ml IVFLUSH QSHIFT [facility] Last Admin: 05/05/22 07:56 Dose: 3 ml Documented By: SOWMYA Sodium Chloride (0.9 % Sodium Chloride Flush 10 Ml Syringe) 5 ml IVFLUSH TID [facility] Last Admin: 05/05/22 07:56 Dose: 5 ml Documented By: SOWMYA Labs CBC & Chem 7: 04/29/22 05:10 05/05/22 05:20 Labs: Laboratory Results - last 24 hr 05/04/22 05/04/22 05/05/22 15:44 20:17 05:20 Estim Creat Clear Calc Estimated GFR POC Glucose 268 H 297 H Random Vancomycin 8.9 L 05/05/22 05/05/22 05/05/22 05:20 07:17 10:59 Estim Creat Clear Calc 128.1 Estimated GFR > 60 POC Glucose 301 H 205 H Random Vancomycin Assessment and Plan (1) Acute osteomyelitis: Status: Acute (2) Diabetes type 2 with atherosclerosis of arteries of extremities: Status: Acute (3) HTN (hypertension): Status: Acute Plan 51-year-old male with history of diabetes type 2 insulin dependent, peripheral arterial disease status post right transmetatarsal amputation, chronic wounds bilateral, polysubstance abuse, hypertension, HLD, anxiety, chronic respiratory a proxy of following COVID-19 on 2 L oxygen 26/12 comes here for worsening of the wound on the top of left foot pain? Patient was just admitted and discharged on 03/21 for a right amputated metatarsal foot ulcer was given antibiotics patient is still taking doxycycline patient says was had a small wound on the top of the left foot when he was admitted which got worse in last 3 days it just opened up no fever no chills patient unable to follow up with wound clinic since discharge on 03/21. Now with PICC line awaiting placement for long-term antibiotics 1. Acute osteomyelitis -PICC line without issue -Vancomycin(day8) IV along with p.o. Levaquin(day 8) x6 weeks -awaiting placement 2. DM 2 -continue long-acting along with lispro sliding scale -adjust as indicated 3. Hypertension -acceptable control on current therapies Full code Lovenox Patient will require ongoing hospitalization for IV antibiotics to treat acute osteomyelitis,awaiting placement Quality Stroke Does the patient have a stroke diagnosis?: No VTE Prior VTE?: No VTE Risk Level:: Medical - moderate - high VTE Device Contraindication: Treatment Not Indicated VTE Drug Contraindication: N/A - Med Ordered
[2022-05-05] MEDS: levoFLOXacin 500 MG TABLET PO (14:39)
[2022-05-05 15:23] LABS: Glucose, Whole Blood 222 mg/dL (60-115)
[2022-05-05 20:39] LABS: Glucose, Whole Blood 204 mg/dL (60-115)
[2022-05-05] MEDS: Atorvastatin Calcium 40 MG TABLET PO (20:39)
[2022-05-05] MEDS: vancomycin HCL 1,250 MG in 0.9 % Sodium Chloride 250 ML 166.66 MG IV (20:41)
[2022-05-05] MEDS: Insulin Glargine,Hum.rec.anlog 100 UNIT/ML 10 ML VIAL 120 UNIT SUBCUT (20:57)
[2022-05-06] MEDS: 0.9 % Sodium Chloride Flush 3 ML SYRINGE IVFLUSH (00:05)
[2022-05-06] MEDS: oxyCODONE HCl Immed Release 5 MG TABLET 10 MG PO ×5 (02:59→21:08)
[2022-05-06 04:00] VITALS: BP 124/67; PULSE 64; RESP 18; TEMP 36.8; O2SAT 95
[2022-05-06 05:50] LABS: Creatinine Clr Calc Pharmacy 111.4; Estimated Glomerular Filt Rate > 60
[2022-05-06 06:15] LABS: Vancomycin Random 12.7 mcg/mL (15-20)
[2022-05-06 07:18] VITALS: BP 118/75; PULSE 59; RESP 17; TEMP 36.4; O2SAT 98
[2022-05-06 07:27] LABS: Glucose, Whole Blood 212 mg/dL (60-115)
[2022-05-06] MEDS: Insulin Lispro 100 UNIT/ML 3 ML VIAL SUBCUT ×4 (07:37→20:32)
[2022-05-06] MEDS: methADONE HCl 20 MG/2 ML ORAL.CONC 85 MG PO (08:12)
[2022-05-06] MEDS: QUEtiapine Fumarate 100 MG TABLET PO ×2 (08:12→20:29)
[2022-05-06] MEDS: cloNIDine HCL 0.2 MG TABLET PO ×3 (08:13→20:29)
[2022-05-06] MEDS: Gabapentin 600 MG TABLET PO ×3 (08:13→20:29)
[2022-05-06] MEDS: vancomycin HCL 1,250 MG in 0.9 % Sodium Chloride 250 ML 166.67 MG IV ×2 (08:14→20:32)
[2022-05-06] MEDS: clonazePAM 1 MG TABLET PO ×2 (08:43→20:29)
[2022-05-06 11:07] LABS: Glucose, Whole Blood 218 mg/dL (60-115)
--- NOTE | 2022-05-06 14:05 | MHC.CM.PN ---
PT STILL AWAITING PLACEMENT FOR LT IV ABX BROAD REFERRAL OUT AND UPDATED NO BED OFFERS AT THIS TIME
[2022-05-06] MEDS: levoFLOXacin 500 MG TABLET PO (14:18)
[2022-05-06] MEDS: 0.9 % Sodium Chloride Flush 10 ML SYRINGE 5 ML IVFLUSH ×2 (14:25→20:29)
[2022-05-06 15:34] VITALS: BP 134/76; PULSE 60; RESP 16; TEMP 36.8; O2SAT 95
[2022-05-06 15:43] LABS: Glucose, Whole Blood 273 mg/dL (60-115)
--- NOTE | 2022-05-06 16:33 | HO.PM.IMPN ---
Subjective Subjective Date of Service: 05/06/22 Interval History: No acute issues overnight.? Tolerating therapies.? Awaiting placement Review of Systems Denies chest painor? shortness of breathor? nausea vomiting diarrhae or fever or chills Physical Exam Vital Signs: Vital Signs: Last Vital Signs Temp 98.2 F 05/06/22 15:34 Pulse 60 05/06/22 15:34 Resp 16 05/06/22 15:34 BP 134/76 05/06/22 15:34 Pulse Ox 95 05/06/22 15:34 O2 Del Method 05/06/22 15:34 O2 Flow Rate 2 05/06/22 15:34 BMI result Body Mass Index 36.0 Appearance: Alert.? Oriented X3.? not in distress.? cvs: rrr, [id number] res: clear to auscultation ,no rhonchii or wheezing abd: no rebound or guarding ,nt, bs present. ext pulses present , no cyanosis .foot ulcer area seems improving,no discharge neuro: axo3 , nonfocal. Objective Data Active Medications Acetaminophen (Acetaminophen 325 Mg Tablet) 650 mg PO Q6H PRN PRN Reason: Pain, Mild (Pain Scale 1-3) Atorvastatin Calcium (Atorvastatin Calcium 40 Mg Tablet) 40 mg PO BEDTIME [facility] Last Admin: 05/05/22 20:39 Dose: 40 mg Documented By: OUMAR Clonazepam (Clonazepam 1 Mg Tablet) 1 mg PO BID PRN PRN Reason: Anxiety Last Admin: 05/06/22 08:43 Dose: 1 mg Documented By: SOWMYA Clonidine HCl (Clonidine Hcl 0.2 Mg Tablet) 0.2 mg PO TID [facility]; Protocol Last Admin: 05/06/22 14:18 Dose: 0.2 mg Documented By: SOWMYA Dextrose (Dextrose 50 % 25 Gm/50 Ml Syringe) 25 gm IVPUSH Q15M PRN; Protocol PRN Reason: per Hypoglycemia Standing Ord. Docusate Sodium (Docusate Sodium 100 Mg Capsule) 100 mg PO DAILY PRN PRN Reason: Constipation Enoxaparin Sodium (Enoxaparin Sodium 40 Mg/0.4 Ml Syringe) 40 mg SUBCUT Q24H [facility] Last Admin: 05/05/22 20:47 Dose: Not Given Documented By: OUMAR Non-Admin Reason: Patient Refused Furosemide (Furosemide 40 Mg Tablet) 40 mg PO BID@0800,1700 [facility]; Protocol Last Admin: 05/06/22 08:16 Dose: Not Given Documented By: SOWMYA Non-Admin Reason: Patient Refused Gabapentin (Gabapentin 600 Mg Tablet) 600 mg PO TID [facility] Last Admin: 05/06/22 14:18 Dose: 600 mg Documented By: SOWMYA Glucose (Glucose Gel 15 Gm Gel..Gram.) 15 gm PO Q15M PRN; Protocol PRN Reason: per Hypoglycemia Standing Ord. Vancomycin HCl 1,250 mg/ (Sodium Chloride) 250 mls @ 166.667 mls/hr IV Q12H [facility] Last Infusion: 05/06/22 10:26 Dose: 0 mls/hr Documented By: SOWMYA Insulin Glargine (Insulin Glargine,Hum.Rec.Anlog 100 Unit/Ml 10 Ml Vial) 120 unit SUBCUT BEDTIME [facility] Last Admin: 05/05/22 20:57 Dose: 120 unit Documented By: OUMAR Insulin Human Lispro (Insulin Lispro 100 Unit/Ml 3 Ml Vial) 15 unit SUBCUT TIDWM [facility] Last Admin: 05/06/22 12:50 Dose: Not Given Documented By: SOWMYA Non-Admin Reason: 4 units given for sliding scale Insulin Human Lispro (Insulin Lispro 100 Unit/Ml 3 Ml Vial) 0 unit SUBCUT QIDACHS [facility]; Protocol Last Admin: 05/06/22 16:32 Dose: 6 unit Documented By: SOWMYA Levofloxacin (Levofloxacin 500 Mg Tablet) 500 mg PO Q24H [facility] Last Admin: 05/06/22 14:18 Dose: 500 mg Documented By: SOWMYA Methadone HCl (Methadone Hcl 20 Mg/2 Ml Oral.Conc) 85 mg PO DAILY [facility] Last Admin: 05/06/22 08:12 Dose: 85 mg Documented By: SOWMYA Ondansetron HCl (Ondansetron Hcl 4 Mg/2 Ml Vial) 4 mg IVPUSH Q8H PRN PRN Reason: Nausea and Vomiting Oxycodone HCl (Oxycodone Hcl Immed Release 5 Mg Tablet) 10 mg PO Q4H PRN PRN Reason: Pain, Moderate (Pain Scale 4-6 Last Admin: 05/06/22 12:49 Dose: 10 mg Documented By: SOWMYA Pharmacy Consult (Consult Rx Perform Med Rec) 1 each MISCELLANE ONCE PRN PRN Reason: Consult order Pharmacy Consult (Consult Rx Perform Med Rec) 1 each MISCELLANE ONCE PRN PRN Reason: Consult order Pharmacy Consult (Consult Rx Vancomycin Dosing) 1 each MISCELLANE DAILY PRN PRN Reason: Consult order Quetiapine Fumarate (Quetiapine Fumarate 100 Mg Tablet) 100 mg PO BID [facility] Last Admin: 05/06/22 08:12 Dose: 100 mg Documented By: SOWMYA Sodium Chloride (0.9 % Sodium Chloride Flush 3 Ml Syringe) 3 ml IVFLUSH QSHIFT [facility] Last Admin: 05/06/22 14:26 Dose: Not Given Documented By: SOWMYA Non-Admin Reason: 5ml flush for PICC Sodium Chloride (0.9 % Sodium Chloride Flush 10 Ml Syringe) 5 ml IVFLUSH TID [facility] Last Admin: 05/06/22 14:25 Dose: 5 ml Documented By: SOWMYA Labs CBC & Chem 7: 04/29/22 05:10 05/06/22 05:30 Labs: Laboratory Results - last 24 hr 05/05/22 05/06/22 05/06/22 19:12 05:30 05:30 Estim Creat Clear Calc 111.4 Estimated GFR > 60 POC Glucose 204 H Random Vancomycin 12.7 L 05/06/22 05/06/22 05/06/22 07:20 11:03 15:36 Estim Creat Clear Calc Estimated GFR POC Glucose 212 H 218 H 273 H Random Vancomycin Assessment and Plan (1) Acute osteomyelitis: Status: Acute (2) Diabetes type 2 with atherosclerosis of arteries of extremities: Status: Acute (3) HTN (hypertension): Status: Acute Plan 51-year-old male with history of diabetes type 2 insulin dependent, peripheral arterial disease status post right transmetatarsal amputation, chronic wounds bilateral, polysubstance abuse, hypertension, HLD, anxiety, chronic respiratory a proxy of following COVID-19 on 2 L oxygen 26/12 comes here for worsening of the wound on the top of left foot pain? Patient was just admitted and discharged on 03/21 for a right amputated metatarsal foot ulcer was given antibiotics patient is still taking doxycycline patient says was had a small wound on the top of the left foot when he was admitted which got worse in last 3 days it just opened up no fever no chills patient unable to follow up with wound clinic since discharge on 03/21. Now with PICC line awaiting placement for long-term antibiotics 1. Acute osteomyelitis -PICC line without issue -Vancomycin(day9) IV along with p.o. Levaquin(day 9) x6 weeks -awaiting placement 2. DM 2 -continue long-acting along with lispro sliding scale -adjust as indicated 3. Hypertension -acceptable control on current therapies Full code Lovenox Patient will require ongoing hospitalization for IV antibiotics to treat acute osteomyelitis,awaiting placement Quality Stroke Does the patient have a stroke diagnosis?: No VTE Prior VTE?: No VTE Risk Level:: Medical - moderate - high VTE Device Contraindication: Treatment Not Indicated VTE Drug Contraindication: N/A - Med Ordered
[2022-05-06 20:00] VITALS: BP 128/72; PULSE 65; RESP 16; TEMP 36.4; O2SAT 98
[2022-05-06 20:01] LABS: Glucose, Whole Blood 273 mg/dL (60-115)
[2022-05-06] MEDS: Atorvastatin Calcium 40 MG TABLET PO (20:29)
[2022-05-06] MEDS: Insulin Glargine,Hum.rec.anlog 100 UNIT/ML 10 ML VIAL 120 UNIT SUBCUT (20:33)
[2022-05-07] MEDS: oxyCODONE HCl Immed Release 5 MG TABLET 10 MG PO ×6 (01:13→21:09)
[2022-05-07 03:08] VITALS: BP 120/68; PULSE 54; RESP 16; TEMP 36.9; O2SAT 97
[2022-05-07 06:33] LABS: Vancomycin Random 12.8 mcg/mL (15-20)
[2022-05-07 06:39] LABS: Creatinine Clr Calc Pharmacy 125.4; Estimated Glomerular Filt Rate > 60
--- NOTE | 2022-05-07 06:45 | HE.PHANOTE ---
RE: vanco Trough on 05/07/22 came back at 12.8mg/L. Increased dose to 1500 Q12H with predicted AUC of 518 mg/L. Next level to be drawn after two doses 05/08/22 @0600.
[2022-05-07 07:26] VITALS: BP 139/72; PULSE 69; RESP 18; TEMP 36.8; O2SAT 95
[2022-05-07 07:37] LABS: Glucose, Whole Blood 294 mg/dL (60-115)
[2022-05-07] MEDS: methADONE HCl 20 MG/2 ML ORAL.CONC 85 MG PO (08:40)
[2022-05-07] MEDS: Insulin Lispro 100 UNIT/ML 3 ML VIAL 15 UNIT SUBCUT ×3 (08:41→16:23)
[2022-05-07] MEDS: Insulin Lispro 100 UNIT/ML 3 ML VIAL SUBCUT ×4 (08:41→21:08)
[2022-05-07] MEDS: Furosemide 40 MG TABLET PO (08:42)
[2022-05-07] MEDS: cloNIDine HCL 0.2 MG TABLET PO ×3 (08:43→21:07)
[2022-05-07] MEDS: Gabapentin 600 MG TABLET PO ×3 (08:43→21:07)
[2022-05-07] MEDS: vancomycin HCL 1,500 MG in 0.9 % Sodium Chloride 500 ML 333.33 MG IV ×2 (08:43→21:06)
[2022-05-07] MEDS: QUEtiapine Fumarate 100 MG TABLET PO ×2 (08:43→21:07)
[2022-05-07] MEDS: clonazePAM 1 MG TABLET PO ×2 (09:08→21:07)
[2022-05-07 10:49] LABS: Glucose, Whole Blood 205 mg/dL (60-115)
--- NOTE | 2022-05-07 12:15 | P.PNIM_ITS ---
Subjective Subjective Date of Service: 05/07/22 Interval History: No acute issues overnight.? Tolerating therapies.? Awaiting placement Review of Systems Denies chest painor? shortness of breathor? nausea vomiting diarrhae or fever or chills Physical Exam Vital Signs: Vital Signs: Last Vital Signs Temp 98.2 F 05/07/22 07:26 Pulse 69 05/07/22 07:26 Resp 18 05/07/22 07:26 BP 139/72 05/07/22 07:26 Pulse Ox 95 05/07/22 07:26 O2 Del Method 05/07/22 07:26 O2 Flow Rate 2.0 05/07/22 07:26 BMI result Body Mass Index 36.0 Appearance: Alert.? Oriented X3.? not in distress.? cvs: rrr, [id number] res: clear to auscultation ,no rhonchii or wheezing abd: no rebound or guarding ,nt, bs present. ext pulses present , no cyanosis .foot ulcer area seems improving,no discharge neuro: axo3 , nonfocal. Objective Data Active Medications Acetaminophen (Acetaminophen 325 Mg Tablet) 650 mg PO Q6H PRN PRN Reason: Pain, Mild (Pain Scale 1-3) Atorvastatin Calcium (Atorvastatin Calcium 40 Mg Tablet) 40 mg PO BEDTIME [facility] Last Admin: 05/06/22 20:29 Dose: 40 mg Documented By: SUPRIYA Clonazepam (Clonazepam 1 Mg Tablet) 1 mg PO BID PRN PRN Reason: Anxiety Last Admin: 05/07/22 09:08 Dose: 1 mg Documented By: TERESA Clonidine HCl (Clonidine Hcl 0.2 Mg Tablet) 0.2 mg PO TID [facility]; Protocol Last Admin: 05/07/22 08:43 Dose: 0.2 mg Documented By: TERESA Dextrose (Dextrose 50 % 25 Gm/50 Ml Syringe) 25 gm IVPUSH Q15M PRN; Protocol PRN Reason: per Hypoglycemia Standing Ord. Docusate Sodium (Docusate Sodium 100 Mg Capsule) 100 mg PO DAILY PRN PRN Reason: Constipation Enoxaparin Sodium (Enoxaparin Sodium 40 Mg/0.4 Ml Syringe) 40 mg SUBCUT Q24H [facility] Last Admin: 05/06/22 20:34 Dose: Not Given Documented By: SUPRIYA Non-Admin Reason: Patient Refused Furosemide (Furosemide 40 Mg Tablet) 40 mg PO BID@0800,1700 [facility]; Protocol Last Admin: 05/07/22 08:42 Dose: 40 mg Documented By: TERESA Gabapentin (Gabapentin 600 Mg Tablet) 600 mg PO TID [facility] Last Admin: 05/07/22 08:43 Dose: 600 mg Documented By: TERESA Glucose (Glucose Gel 15 Gm Gel..Gram.) 15 gm PO Q15M PRN; Protocol PRN Reason: per Hypoglycemia Standing Ord. Vancomycin HCl 1,500 mg/ (Sodium Chloride) 500 mls @ 333.333 mls/hr IV Q12H [facility] Last Infusion: 05/07/22 11:51 Dose: 333.33 mls/hr Documented By: TERESA Insulin Glargine (Insulin Glargine,Hum.Rec.Anlog 100 Unit/Ml 10 Ml Vial) 120 unit SUBCUT BEDTIME [facility] Last Admin: 05/06/22 20:33 Dose: 120 unit Documented By: SUPRIYA Insulin Human Lispro (Insulin Lispro 100 Unit/Ml 3 Ml Vial) 15 unit SUBCUT TIDWM [facility] Last Admin: 05/07/22 11:49 Dose: 15 unit Documented By: TERESA Insulin Human Lispro (Insulin Lispro 100 Unit/Ml 3 Ml Vial) 0 unit SUBCUT QIDACHS [facility]; Protocol Last Admin: 05/07/22 11:49 Dose: 4 unit Documented By: TERESA Levofloxacin (Levofloxacin 500 Mg Tablet) 500 mg PO Q24H [facility] Last Admin: 05/06/22 14:18 Dose: 500 mg Documented By: SOWMYA Methadone HCl (Methadone Hcl 20 Mg/2 Ml Oral.Conc) 85 mg PO DAILY [facility] Last Admin: 05/07/22 08:40 Dose: 85 mg Documented By: TERESA Ondansetron HCl (Ondansetron Hcl 4 Mg/2 Ml Vial) 4 mg IVPUSH Q8H PRN PRN Reason: Nausea and Vomiting Oxycodone HCl (Oxycodone Hcl Immed Release 5 Mg Tablet) 10 mg PO Q4H PRN PRN Reason: Pain, Severe (Pain Scale 7-10) Last Admin: 05/07/22 09:07 Dose: 10 mg Documented By: TERESA Pharmacy Consult (Consult Rx Perform Med Rec) 1 each MISCELLANE ONCE PRN PRN Reason: Consult order Pharmacy Consult (Consult Rx Perform Med Rec) 1 each MISCELLANE ONCE PRN PRN Reason: Consult order Pharmacy Consult (Consult Rx Vancomycin Dosing) 1 each MISCELLANE DAILY PRN PRN Reason: Consult order Quetiapine Fumarate (Quetiapine Fumarate 100 Mg Tablet) 100 mg PO BID [facility] Last Admin: 05/07/22 08:43 Dose: 100 mg Documented By: TERESA Sodium Chloride (0.9 % Sodium Chloride Flush 3 Ml Syringe) 3 ml IVFLUSH QSHIFT [facility] Last Admin: 05/07/22 08:52 Dose: Not Given Documented By: TERESA Non-Admin Reason: IV Running Sodium Chloride (0.9 % Sodium Chloride Flush 10 Ml Syringe) 5 ml IVFLUSH TID [facility] Last Admin: 05/07/22 08:52 Dose: Not Given Documented By: TERESA Non-Admin Reason: IV Running Labs CBC & Chem 7: 04/29/22 05:10 05/07/22 06:00 Labs: Laboratory Results - last 24 hr 05/06/22 05/06/22 05/07/22 15:36 19:41 06:00 Estim Creat Clear Calc Estimated GFR POC Glucose 273 H 273 H Random Vancomycin 12.8 L 05/07/22 05/07/22 05/07/22 06:00 07:24 10:37 Estim Creat Clear Calc 125.4 Estimated GFR > 60 POC Glucose 294 H 205 H Random Vancomycin Assessment and Plan (1) Acute osteomyelitis: Status: Acute (2) Diabetes: Status: Acute (3) HTN (hypertension): Status: Acute Plan 51-year-old male with history of diabetes type 2 insulin dependent, peripheral arterial disease status post right transmetatarsal amputation, chronic wounds bilateral, polysubstance abuse, hypertension, HLD, anxiety, chronic respiratory a proxy of following COVID-19 on 2 L oxygen 26/12 comes here for worsening of the wound on the top of left foot pain? Patient was just admitted and discharged on 03/21 for a right amputated metatarsal foot ulcer was given antibiotics patient is still taking doxycycline patient says was had a small wound on the top of the left foot when he was admitted which got worse in last 3 days it just opened up no fever no chills patient unable to follow up with wound clinic since discharge on 03/21.? Now with PICC line awaiting placement for long-term antibiotics 1. Acute osteomyelitis -PICC line without issue -Vancomycin(day9) IV along with p.o. Levaquin(day 9) x6 weeks -awaiting placement 2. DM 2 -continue long-acting along with lispro sliding scale -adjust as indicated 3. Hypertension -acceptable control on current therapies Full code Lovenox Patient will require ongoing hospitalization for IV antibiotics to treat acute osteomyelitis,awaiting placement Quality Stroke Does the patient have a stroke diagnosis?: No VTE Prior VTE?: No VTE Risk Level:: Medical - moderate - high VTE Device Contraindication: Treatment Not Indicated VTE Drug Contraindication: N/A - Med Ordered
[2022-05-07] MEDS: levoFLOXacin 500 MG TABLET PO (13:28)
[2022-05-07 15:08] VITALS: BP 124/75; PULSE 64; RESP 18; TEMP 36.6; O2SAT 96
[2022-05-07 15:52] LABS: Glucose, Whole Blood 237 mg/dL (60-115)
--- NOTE | 2022-05-07 15:52 | PM.PSYCN ---
History of Present Illness Chief Complaint: Diabetic foot wound [facility] Medical History (Updated 04/27/22 @ 15:47 by Gregorio Barnett DO) Compartment syndrome of left lower extremity Diabetes HTN (hypertension) Post-COVID chronic dyspnea Ulcer of left foot Surgical History Status post transmetatarsal amputation of right foot Diagnostics Vital Signs (24Hr): Vital Signs - 24 hr 05/06/22 20:00 05/07/22 03:08 05/07/22 07:26 Temperature 97.5 F 98.4 F 98.2 F Pulse Rate 65 54 69 Respiratory Rate 16 16 18 Blood Pressure 128/72 120/68 139/72 Pulse Oximetry 98 97 95 Oxygen Delivery Method Nasal Cannula Nasal Cannula Nasal Cannula Oxygen Flow Rate 2 2.0 05/07/22 15:08 Temperature 97.8 F Pulse Rate 64 Respiratory Rate 18 Blood Pressure 124/75 Pulse Oximetry 96 Oxygen Delivery Method Nasal Cannula Oxygen Flow Rate 2.0 BMI result Body Mass Index 36.0 Labs Results: 04/29/22 05:10 05/07/22 06:00 Labs: Laboratory Results - last 48 hr 05/05/22 05/06/22 05/06/22 19:12 05:30 05:30 Creatinine 1.07 Estim Creat Clear Calc 111.4 Estimated GFR > 60 POC Glucose 204 H Random Vancomycin 12.7 L 05/06/22 05/06/22 05/06/22 07:20 11:03 15:36 Creatinine Estim Creat Clear Calc Estimated GFR POC Glucose 212 H 218 H 273 H Random Vancomycin 05/06/22 05/07/22 05/07/22 19:41 06:00 06:00 Creatinine 0.95 Estim Creat Clear Calc 125.4 Estimated GFR > 60 POC Glucose 273 H Random Vancomycin 12.8 L 05/07/22 05/07/22 07:24 10:37 Creatinine Estim Creat Clear Calc Estimated GFR POC Glucose 294 H 205 H Random Vancomycin Imaging Radiology Impressions: ITS Impressions Chest X-Ray 04/25/22 17:20 IMPRESSION: 1. Chronic stable pulmonary changes as described above. No acute intrathoracic disease. 2. Chronic deformities and postsurgical changes both feet. No acute finding Foot X-Ray 04/25/22 17:20 IMPRESSION: 1. Chronic stable pulmonary changes as described above. No acute intrathoracic disease. 2. Chronic deformities and postsurgical changes both feet. No acute finding Foot X-Ray 04/25/22 17:20 IMPRESSION: 1. Chronic stable pulmonary changes as described above. No acute intrathoracic disease. 2. Chronic deformities and postsurgical changes both feet. No acute finding Tibia/Fibula X-Ray 04/25/22 17:20 IMPRESSION: 1. Chronic stable pulmonary changes as described above. No acute intrathoracic disease. 2. Chronic deformities and postsurgical changes both feet. No acute finding Tibia/Fibula X-Ray 04/25/22 17:20 IMPRESSION: 1. Chronic stable pulmonary changes as described above. No acute intrathoracic disease. 2. Chronic deformities and postsurgical changes both feet. No acute finding Bone Scan Nuclear Medicine 04/26/22 14:25 IMPRESSION: Focal increased activity left foot, base of fourth and fifth digits. On left foot x-ray there appears to be fusion between the the base of fourth digit and tarsal bone with mild degenerative arthritic changes likely cause for increased activity. No abnormal activity seen in the amputated right foot to suspect any osteomyelitis. Mild increased activity in both feet on the first and second phase of bone scan likely related to cellulitis or hyperemia. Medications Medications Current Medications Acetaminophen (Acetaminophen 325 Mg Tablet) 650 mg PO Q6H PRN PRN Reason: Pain, Mild (Pain Scale 1-3) Atorvastatin Calcium (Atorvastatin Calcium 40 Mg Tablet) 40 mg PO BEDTIME [facility] Last Admin: 05/06/22 20:29 Dose: 40 mg Clonazepam (Clonazepam 1 Mg Tablet) 1 mg PO BID PRN PRN Reason: Anxiety Last Admin: 05/07/22 09:08 Dose: 1 mg Clonidine HCl (Clonidine Hcl 0.2 Mg Tablet) 0.2 mg PO TID [facility]; Protocol Last Admin: 05/07/22 08:43 Dose: 0.2 mg Dextrose (Dextrose 50 % 25 Gm/50 Ml Syringe) 25 gm IVPUSH Q15M PRN; Protocol PRN Reason: per Hypoglycemia Standing Ord. Docusate Sodium (Docusate Sodium 100 Mg Capsule) 100 mg PO DAILY PRN PRN Reason: Constipation Enoxaparin Sodium (Enoxaparin Sodium 40 Mg/0.4 Ml Syringe) 40 mg SUBCUT Q24H [facility] Last Admin: 05/06/22 20:34 Dose: Not Given Furosemide (Furosemide 40 Mg Tablet) 40 mg PO BID@0800,1700 [facility]; Protocol Last Admin: 05/07/22 08:42 Dose: 40 mg Gabapentin (Gabapentin 600 Mg Tablet) 600 mg PO TID [facility] Last Admin: 05/07/22 08:43 Dose: 600 mg Glucose (Glucose Gel 15 Gm Gel..Gram.) 15 gm PO Q15M PRN; Protocol PRN Reason: per Hypoglycemia Standing Ord. Vancomycin HCl 1,500 mg/ (Sodium Chloride) 500 mls @ 333.333 mls/hr IV Q12H [facility] Last Infusion: 05/07/22 11:51 Dose: Infused Insulin Glargine (Insulin Glargine,Hum.Rec.Anlog 100 Unit/Ml 10 Ml Vial) 120 unit SUBCUT BEDTIME [facility] Last Admin: 05/06/22 20:33 Dose: 120 unit Insulin Human Lispro (Insulin Lispro 100 Unit/Ml 3 Ml Vial) 15 unit SUBCUT TIDWM [facility] Last Admin: 05/07/22 11:49 Dose: 15 unit Insulin Human Lispro (Insulin Lispro 100 Unit/Ml 3 Ml Vial) 0 unit SUBCUT QIDACHS [facility]; Protocol Last Admin: 05/07/22 11:49 Dose: 4 unit Levofloxacin (Levofloxacin 500 Mg Tablet) 500 mg PO Q24H [facility] Last Admin: 05/07/22 13:28 Dose: 500 mg Methadone HCl (Methadone Hcl 20 Mg/2 Ml Oral.Conc) 85 mg PO DAILY [facility] Last Admin: 05/07/22 08:40 Dose: 85 mg Ondansetron HCl (Ondansetron Hcl 4 Mg/2 Ml Vial) 4 mg IVPUSH Q8H PRN PRN Reason: Nausea and Vomiting Oxycodone HCl (Oxycodone Hcl Immed Release 5 Mg Tablet) 10 mg PO Q4H PRN PRN Reason: Pain, Severe (Pain Scale 7-10) Last Admin: 05/07/22 13:27 Dose: 10 mg Pharmacy Consult (Consult Rx Perform Med Rec) 1 each MISCELLANE ONCE PRN PRN Reason: Consult order Pharmacy Consult (Consult Rx Perform Med Rec) 1 each MISCELLANE ONCE PRN PRN Reason: Consult order Pharmacy Consult (Consult Rx Vancomycin Dosing) 1 each MISCELLANE DAILY PRN PRN Reason: Consult order Quetiapine Fumarate (Quetiapine Fumarate 100 Mg Tablet) 100 mg PO BID [facility] Last Admin: 05/07/22 08:43 Dose: 100 mg Sodium Chloride (0.9 % Sodium Chloride Flush 3 Ml Syringe) 3 ml IVFLUSH QSHIFT [facility] Last Admin: 05/07/22 08:52 Dose: Not Given Sodium Chloride (0.9 % Sodium Chloride Flush 10 Ml Syringe) 5 ml IVFLUSH TID [facility] Last Admin: 05/07/22 08:52 Dose: Not Given Allergies Allergies Allergy/AdvReac Type Severity Reaction Status Date / Time prochlorperazine Allergy Intermediate Hives Verified 03/22/22 10:13 [From Compazine] aspirin [ASA] Allergy Unknown HIVES Unverified 02/20/20 16:18 naproxen [From NAPROSYN] Allergy Unknown HIVES Unverified 02/20/20 16:18 NSAIDS (Non-Steroidal Allergy Unknown HIVES Unverified 02/20/20 16:18 Anti-Inflamma [NSAIDS (NON-STEROIDAL ANTI-INFLAMMA] Penicillins [PENICILLINS] Allergy Unknown HIVES Unverified 02/20/20 16:18 Assessment & Plan I spent minutes with the patient and/or on the patient floor today, greater than?50% of which was spent counseling/coordinating care.
[2022-05-07] MEDS: 0.9 % Sodium Chloride Flush 10 ML SYRINGE 5 ML IVFLUSH ×2 (16:26→21:03)
[2022-05-07 19:32] VITALS: BP 148/80; PULSE 61; RESP 18; TEMP 36.9; O2SAT 96
[2022-05-07 19:46] LABS: Glucose, Whole Blood 258 mg/dL (60-115)
[2022-05-07] MEDS: Atorvastatin Calcium 40 MG TABLET PO (21:07)
[2022-05-07] MEDS: Insulin Glargine,Hum.rec.anlog 100 UNIT/ML 10 ML VIAL 120 UNIT SUBCUT (21:08)
[2022-05-08] MEDS: oxyCODONE HCl Immed Release 5 MG TABLET 10 MG PO ×5 (02:15→20:16)
[2022-05-08 03:48] VITALS: BP 148/75; PULSE 61; RESP 18; TEMP 36.5; O2SAT 98
[2022-05-08 06:41] LABS: Creatinine Clr Calc Pharmacy 132.4; Estimated Glomerular Filt Rate > 60
[2022-05-08 06:48] LABS: Vancomycin Random 23.4 mcg/mL (15-20)
[2022-05-08 07:33] LABS: Glucose, Whole Blood 300 mg/dL (60-115)
[2022-05-08] MEDS: 0.9 % Sodium Chloride Flush 10 ML SYRINGE 5 ML IVFLUSH ×3 (07:58→22:21)
[2022-05-08] MEDS: Insulin Lispro 100 UNIT/ML 3 ML VIAL SUBCUT ×5 (07:59→20:17)
[2022-05-08] MEDS: methADONE HCl 20 MG/2 ML ORAL.CONC 85 MG PO (07:59)
[2022-05-08] MEDS: Insulin Lispro 100 UNIT/ML 3 ML VIAL 15 UNIT SUBCUT ×2 (07:59→11:45)
[2022-05-08 08:00] VITALS: BP 125/67; PULSE 64; RESP 20; TEMP 36.1; O2SAT 97
[2022-05-08] MEDS: cloNIDine HCL 0.2 MG TABLET PO ×3 (08:00→22:21)
[2022-05-08] MEDS: Gabapentin 600 MG TABLET PO ×3 (08:00→20:16)
[2022-05-08] MEDS: QUEtiapine Fumarate 100 MG TABLET PO ×2 (08:01→20:16)
[2022-05-08] MEDS: clonazePAM 1 MG TABLET PO ×2 (08:01→20:16)
--- NOTE | 2022-05-08 08:56 | HE.PHANOTE ---
Vancomycin Dosing Addendum Patients dose was increased to 1500 mg on 05/07 due to low level. However, his level this morning came back supra therapeutic at 23.4 mg/L. Patients renal function is still stable. Suspect that patient dose dumped due to BMI. Held dose of 1500 mg due this morning @0800. Decreased dose to 750 mg Q12H will obtain level 05/09 @1900. Predicted AUC 523 mg/L/hr
--- NOTE | 2022-05-08 11:04 | HO.PM.IMPN ---
Subjective Subjective Date of Service: 05/08/22 Interval History: No acute issues overnight.? Tolerating therapies.? Awaiting placement [facility] (23.4) Review of Systems Denies chest painor? shortness of breath or? nausea vomiting diarrhae or fever or chills Physical Exam Vital Signs: Vital Signs: Last Vital Signs Temp 97.0 F 05/08/22 08:00 Pulse 64 05/08/22 08:00 Resp 20 05/08/22 08:00 BP 125/67 05/08/22 08:00 Pulse Ox 97 05/08/22 08:00 O2 Del Method 05/08/22 08:00 O2 Flow Rate 2 05/08/22 08:00 BMI result Body Mass Index 36.0 Appearance: Alert.? Oriented X3.? not in distress.? cvs: rrr, [id number] res: clear to auscultation ,no rhonchii or wheezing abd: no rebound or guarding ,nt, bs present. ext pulses present , no cyanosis .foot ulcer area seems improving,no discharge neuro: axo3 , nonfocal. Objective Data Active Medications Acetaminophen (Acetaminophen 325 Mg Tablet) 650 mg PO Q6H PRN PRN Reason: Pain, Mild (Pain Scale 1-3) Atorvastatin Calcium (Atorvastatin Calcium 40 Mg Tablet) 40 mg PO BEDTIME [facility] Last Admin: 05/07/22 21:07 Dose: 40 mg Documented By: SUPRIYA Clonazepam (Clonazepam 1 Mg Tablet) 1 mg PO BID PRN PRN Reason: Anxiety Last Admin: 05/08/22 08:01 Dose: 1 mg Documented By: TERESA Clonidine HCl (Clonidine Hcl 0.2 Mg Tablet) 0.2 mg PO TID [facility]; Protocol Last Admin: 05/08/22 08:00 Dose: 0.2 mg Documented By: TERESA Dextrose (Dextrose 50 % 25 Gm/50 Ml Syringe) 25 gm IVPUSH Q15M PRN; Protocol PRN Reason: per Hypoglycemia Standing Ord. Docusate Sodium (Docusate Sodium 100 Mg Capsule) 100 mg PO DAILY PRN PRN Reason: Constipation Enoxaparin Sodium (Enoxaparin Sodium 40 Mg/0.4 Ml Syringe) 40 mg SUBCUT Q24H [facility] Last Admin: 05/07/22 21:07 Dose: Not Given Documented By: SUPRIYA Non-Admin Reason: Patient Refused Furosemide (Furosemide 40 Mg Tablet) 40 mg PO BID@0800,1700 [facility]; Protocol Last Admin: 05/08/22 08:30 Dose: Not Given Documented By: TERESA Non-Admin Reason: Patient Refused Gabapentin (Gabapentin 600 Mg Tablet) 600 mg PO TID [facility] Last Admin: 05/08/22 08:00 Dose: 600 mg Documented By: TERESA Glucose (Glucose Gel 15 Gm Gel..Gram.) 15 gm PO Q15M PRN; Protocol PRN Reason: per Hypoglycemia Standing Ord. Vancomycin HCl 750 mg/ Sodium (Chloride) 265 mls @ 265 mls/hr IV Q12H [facility] Insulin Glargine (Insulin Glargine,Hum.Rec.Anlog 100 Unit/Ml 10 Ml Vial) 120 unit SUBCUT BEDTIME [facility] Last Admin: 05/07/22 21:08 Dose: 120 unit Documented By: SUPRIYA Insulin Human Lispro (Insulin Lispro 100 Unit/Ml 3 Ml Vial) 15 unit SUBCUT TIDWM [facility] Last Admin: 05/08/22 07:59 Dose: 15 unit Documented By: TERESA Insulin Human Lispro (Insulin Lispro 100 Unit/Ml 3 Ml Vial) 0 unit SUBCUT QIDACHS [facility]; Protocol Last Admin: 05/08/22 07:59 Dose: 6 unit Documented By: TERESA Levofloxacin (Levofloxacin 500 Mg Tablet) 500 mg PO Q24H [facility] Last Admin: 05/07/22 13:28 Dose: 500 mg Documented By: TERESA Methadone HCl (Methadone Hcl 20 Mg/2 Ml Oral.Conc) 85 mg PO DAILY [facility] Last Admin: 05/08/22 07:59 Dose: 85 mg Documented By: TERESA Ondansetron HCl (Ondansetron Hcl 4 Mg/2 Ml Vial) 4 mg IVPUSH Q8H PRN PRN Reason: Nausea and Vomiting Oxycodone HCl (Oxycodone Hcl Immed Release 5 Mg Tablet) 10 mg PO Q4H PRN PRN Reason: Pain, Severe (Pain Scale 7-10) Last Admin: 05/08/22 06:07 Dose: 10 mg Documented By: SUPRIYA Pharmacy Consult (Consult Rx Perform Med Rec) 1 each MISCELLANE ONCE PRN PRN Reason: Consult order Pharmacy Consult (Consult Rx Perform Med Rec) 1 each MISCELLANE ONCE PRN PRN Reason: Consult order Pharmacy Consult (Consult Rx Vancomycin Dosing) 1 each MISCELLANE DAILY PRN PRN Reason: Consult order Quetiapine Fumarate (Quetiapine Fumarate 100 Mg Tablet) 100 mg PO BID [facility] Last Admin: 05/08/22 08:01 Dose: 100 mg Documented By: TERESA Sodium Chloride (0.9 % Sodium Chloride Flush 3 Ml Syringe) 3 ml IVFLUSH QSHIFT [facility] Last Admin: 05/08/22 07:57 Dose: Not Given Documented By: TERESA Non-Admin Reason: IV Running Sodium Chloride (0.9 % Sodium Chloride Flush 10 Ml Syringe) 5 ml IVFLUSH TID [facility] Last Admin: 05/08/22 07:58 Dose: 5 ml Documented By: TERESA Labs CBC & Chem 7: 04/29/22 05:10 05/08/22 06:03 Labs: Laboratory Results - last 24 hr 05/07/22 05/07/22 05/08/22 15:48 19:34 06:03 Estim Creat Clear Calc Estimated GFR POC Glucose 237 H 258 H Random Vancomycin 23.4 H 05/08/22 05/08/22 06:03 07:20 Estim Creat Clear Calc 132.4 Estimated GFR > 60 POC Glucose 300 H Random Vancomycin Assessment and Plan (1) Acute osteomyelitis: Status: Acute (2) Diabetes: Status: Acute (3) HTN (hypertension): Status: Acute Plan 51-year-old male with history of diabetes type 2 insulin dependent, peripheral arterial disease status post right transmetatarsal amputation, chronic wounds bilateral, polysubstance abuse, hypertension, HLD, anxiety, chronic respiratory a proxy of following COVID-19 on 2 L oxygen 26/12 comes here for worsening of the wound on the top of left foot pain? Patient was just admitted and discharged on 03/21 for a right amputated metatarsal foot ulcer was given antibiotics patient is still taking doxycycline patient says was had a small wound on the top of the left foot when he was admitted which got worse in last 3 days it just opened up no fever no chills patient unable to follow up with wound clinic since discharge on 03/21.? Now with PICC line awaiting placement for long-term antibiotics 1. Acute osteomyelitis -PICC line without issue vanco elevated 23.4,renal function seems fine encouraged for hydration will check vanco trough before givin next dose. -Vancomycin(day10) IV along with p.o. Levaquin(day 10) x6 weeks -awaiting placement 2. DM 2 -continue long-acting along with lispro sliding scale -adjust as indicated 3. Hypertension -acceptable control on current therapies hold lasix also for today since vanco trough high Full code Lovenox Patient will require ongoing hospitalization for IV antibiotics to treat acute osteomyelitis,awaiting placement Quality Stroke Does the patient have a stroke diagnosis?: No VTE Prior VTE?: No VTE Risk Level:: Medical - moderate - high VTE Device Contraindication: Treatment Not Indicated VTE Drug Contraindication: N/A - Med Ordered
[2022-05-08 11:22] LABS: Glucose, Whole Blood 264 mg/dL (60-115)
[2022-05-08 15:23] VITALS: BP 136/63; PULSE 63; RESP 18; TEMP 37.1; O2SAT 92
[2022-05-08] MEDS: levoFLOXacin 500 MG TABLET PO (15:27)
[2022-05-08 15:48] LABS: Glucose, Whole Blood 262 mg/dL (60-115)
[2022-05-08 19:08] VITALS: BP 150/77; PULSE 66; RESP 18; TEMP 36.6; O2SAT 96
[2022-05-08 19:46] LABS: Glucose, Whole Blood 259 mg/dL (60-115)
[2022-05-08] MEDS: Insulin Glargine,Hum.rec.anlog 100 UNIT/ML 10 ML VIAL 120 UNIT SUBCUT (20:17)
[2022-05-08] MEDS: Atorvastatin Calcium 40 MG TABLET PO (20:17)
[2022-05-08] MEDS: vancomycin HCL 750 MG in 0.9 % Sodium Chloride 250 ML 265 MG IV (20:20)
[2022-05-08] MEDS: 0.9 % Sodium Chloride Flush 3 ML SYRINGE IVFLUSH (20:23)
[2022-05-08 20:46] LABS: Vancomycin Random 6.9 mcg/mL (15-20)
[2022-05-08 20:48] LABS: Anion Gap 14 (12-20); Blood Urea Nitrogen 22 mg/dL (9-16); Calcium 8.5 mg/dL (8.4-10.2); Carbon Dioxide 25 mmol/L (22-29); Chloride 103 mmol/L (96-108); Estimated Glomerular Filt Rate > 60; Glucose Random 251 mg/dL (60-115); Potassium 4.4 mmol/L (3.3-5.1); Sodium 138 mmol/L (135-145)
[2022-05-09] MEDS: oxyCODONE HCl Immed Release 5 MG TABLET 10 MG PO ×4 (03:57→20:27)
[2022-05-09 04:00] VITALS: BP 123/71; PULSE 60; RESP 18; TEMP 36.3; O2SAT 95
[2022-05-09] MEDS: Insulin Lispro 100 UNIT/ML 3 ML VIAL SUBCUT ×7 (07:36→20:16)
[2022-05-09 07:37] LABS: Glucose, Whole Blood 239 mg/dL (60-115)
[2022-05-09] MEDS: 0.9 % Sodium Chloride Flush 3 ML SYRINGE IVFLUSH ×2 (07:37→14:14)
[2022-05-09 07:57] VITALS: BP 128/71; PULSE 60; RESP 17; TEMP 37; O2SAT 98
[2022-05-09 08:05] LABS: Creatinine Clr Calc Pharmacy 143.6; Estimated Glomerular Filt Rate > 60
[2022-05-09] MEDS: cloNIDine HCL 0.2 MG TABLET PO ×3 (09:57→20:16)
[2022-05-09] MEDS: QUEtiapine Fumarate 100 MG TABLET PO ×2 (09:57→20:16)
[2022-05-09] MEDS: Gabapentin 600 MG TABLET PO ×3 (09:57→20:16)
[2022-05-09] MEDS: methADONE HCl 20 MG/2 ML ORAL.CONC 85 MG PO (09:58)
[2022-05-09] MEDS: clonazePAM 1 MG TABLET PO ×2 (09:58→21:50)
[2022-05-09] MEDS: vancomycin HCL 750 MG in 0.9 % Sodium Chloride 250 ML 265 MG IV ×2 (09:59→20:15)
[2022-05-09] MEDS: 0.9 % Sodium Chloride Flush 10 ML SYRINGE 5 ML IVFLUSH ×2 (09:59→14:15)
--- NOTE | 2022-05-09 11:24 | MHC.RECOVRN ---
Chart reviewed. Pt currently at 85 mg methadone daily. Provider unable to titrate further due to not having an OTP set up. Awaiting bed placement in order to link to closest OTP.
[2022-05-09 11:32] LABS: Glucose, Whole Blood 163 mg/dL (60-115)
--- NOTE | 2022-05-09 14:53 | P.PNIM_ITS ---
Subjective Subjective Date of Service: 05/09/22 Interval History: No acute issues overnight.? Tolerating therapies.? Awaiting placement Review of Systems Denies chest painor? shortness of breath or? nausea vomiting diarrhae or fever or chills Physical Exam Vital Signs: Vital Signs: Last Vital Signs Temp 98.6 F 05/09/22 07:57 Pulse 60 05/09/22 07:57 Resp 17 05/09/22 07:57 BP 128/71 05/09/22 07:57 Pulse Ox 98 05/09/22 07:57 O2 Del Method 05/09/22 07:57 O2 Flow Rate 2.0 05/09/22 07:57 BMI result Body Mass Index 36.0 Appearance: Alert.? Oriented X3.? not in distress.? cvs: rrr, [id number] res: clear to auscultation ,no rhonchii or wheezing abd: no rebound or guarding ,nt, bs present. ext pulses present , no cyanosis .foot ulcer area seems improving,no discharge neuro: axo3 , nonfocal. Objective Data Active Medications Acetaminophen (Acetaminophen 325 Mg Tablet) 650 mg PO Q6H PRN PRN Reason: Pain, Mild (Pain Scale 1-3) Atorvastatin Calcium (Atorvastatin Calcium 40 Mg Tablet) 40 mg PO BEDTIME [facility] Last Admin: 05/08/22 20:17 Dose: 40 mg Documented By: WENDI Clonazepam (Clonazepam 1 Mg Tablet) 1 mg PO BID PRN PRN Reason: Anxiety Last Admin: 05/09/22 09:58 Dose: 1 mg Documented By: VINOD Clonidine HCl (Clonidine Hcl 0.2 Mg Tablet) 0.2 mg PO TID [facility]; Protocol Last Admin: 05/09/22 14:14 Dose: 0.2 mg Documented By: VINOD Dextrose (Dextrose 50 % 25 Gm/50 Ml Syringe) 25 gm IVPUSH Q15M PRN; Protocol PRN Reason: per Hypoglycemia Standing Ord. Docusate Sodium (Docusate Sodium 100 Mg Capsule) 100 mg PO DAILY PRN PRN Reason: Constipation Enoxaparin Sodium (Enoxaparin Sodium 40 Mg/0.4 Ml Syringe) 40 mg SUBCUT Q24H [facility] Last Admin: 05/08/22 20:26 Dose: Not Given Documented By: WENDI Non-Admin Reason: Patient Refused Furosemide (Furosemide 40 Mg Tablet) 40 mg PO BID@0800,1700 [facility]; Protocol Last Admin: 05/08/22 08:30 Dose: Not Given Documented By: TERESA Non-Admin Reason: Patient Refused Gabapentin (Gabapentin 600 Mg Tablet) 600 mg PO TID [facility] Last Admin: 05/09/22 14:14 Dose: 600 mg Documented By: VINOD Glucose (Glucose Gel 15 Gm Gel..Gram.) 15 gm PO Q15M PRN; Protocol PRN Reason: per Hypoglycemia Standing Ord. Vancomycin HCl 750 mg/ Sodium (Chloride) 265 mls @ 265 mls/hr IV Q12H [facility] Last Infusion: 05/09/22 11:22 Dose: 0 mls/hr Documented By: VINOD Insulin Glargine (Insulin Glargine,Hum.Rec.Anlog 100 Unit/Ml 10 Ml Vial) 120 unit SUBCUT BEDTIME [facility] Last Admin: 05/08/22 20:17 Dose: 120 unit Documented By: WENDI Insulin Human Lispro (Insulin Lispro 100 Unit/Ml 3 Ml Vial) 0 unit SUBCUT QIDAC HS [facility]; Protocol Last Admin: 05/09/22 12:09 Dose: 2 unit Documented By: VINOD Insulin Human Lispro (Insulin Lispro 100 Unit/Ml 3 Ml Vial) 3 unit SUBCUT TIDWM [facility] Last Admin: 05/09/22 12:09 Dose: 3 unit Documented By: VINOD Methadone HCl (Methadone Hcl 20 Mg/2 Ml Oral.Conc) 85 mg PO DAILY [facility] Last Admin: 05/09/22 09:58 Dose: 85 mg Documented By: VINOD Ondansetron HCl (Ondansetron Hcl 4 Mg/2 Ml Vial) 4 mg IVPUSH Q8H PRN PRN Reason: Nausea and Vomiting Oxycodone HCl (Oxycodone Hcl Immed Release 5 Mg Tablet) 10 mg PO Q4H PRN PRN Reason: Pain, Severe (Pain Scale 7-10) Last Admin: 05/09/22 10:59 Dose: 10 mg Documented By: VINOD Pharmacy Consult (Consult Rx Perform Med Rec) 1 each MISCELLANE ONCE PRN PRN Reason: Consult order Pharmacy Consult (Consult Rx Perform Med Rec) 1 each MISCELLANE ONCE PRN PRN Reason: Consult order Quetiapine Fumarate (Quetiapine Fumarate 100 Mg Tablet) 100 mg PO BID [facility] Last Admin: 05/09/22 09:57 Dose: 100 mg Documented By: VINOD Sodium Chloride (0.9 % Sodium Chloride Flush 3 Ml Syringe) 3 ml IVFLUSH QSHIFT [facility] Last Admin: 05/09/22 14:14 Dose: 3 ml Documented By: VINOD Sodium Chloride (0.9 % Sodium Chloride Flush 10 Ml Syringe) 5 ml IVFLUSH TID [facility] Last Admin: 05/09/22 14:15 Dose: 5 ml Documented By: VINOD Labs CBC & Chem 7: 04/29/22 05:10 05/09/22 06:22 Labs: Laboratory Results - last 24 hr 05/08/22 05/08/22 05/08/22 15:30 19:20 20:15 Anion Gap Estim Creat Clear Calc Estimated GFR POC Glucose 262 H 259 H Random Glucose Calcium Random Vancomycin 6.9 L 05/08/22 05/09/22 05/09/22 20:15 06:22 07:29 Anion Gap 14 Estim Creat Clear Calc 131.0 143.6 Estimated GFR > 60 > 60 POC Glucose 239 H Random Glucose 251 H Calcium 8.5 Random Vancomycin 05/09/22 11:26 Anion Gap Estim Creat Clear Calc Estimated GFR POC Glucose 163 H Random Glucose Calcium Random Vancomycin Assessment and Plan (1) Acute osteomyelitis: Status: Acute Plan 51-year-old male with history of diabetes type 2 insulin dependent, peripheral arterial disease status post right transmetatarsal amputation, chronic wounds bilateral, polysubstance abuse, hypertension, HLD, anxiety, chronic respiratory a proxy of following COVID-19 on 2 L oxygen 26/12 comes here for worsening of the wound on the top of left foot pain? Patient was just admitted and discharged on 03/21 for a right amputated metatarsal foot ulcer was given antibiotics patient is still taking doxycycline patient says was had a small wound on the top of the left foot when he was admitted which got worse in last 3 days it just opened up no fever no chills patient unable to follow up with wound clinic since discharge on 03/21.? Now with PICC line awaiting placement for long-term antibiotics 1. Acute osteomyelitis -PICC line without issue vanco trough around 7 ,renal function seems fine encouraged for hydration will check vanco trough before givin next dose. -Vancomycin(day10) IV along with p.o. Levaquin(day 10) x6 weeks -awaiting placement 2. DM 2 -continue long-acting along with lispro sliding scale -adjust as indicated 3. Hypertension -acceptable control on current therapies hold lasix also for today since vanco trough high Full code Lovenox Patient will require ongoing hospitalization for IV antibiotics to treat acute osteomyelitis,awaiting placement Quality Stroke Does the patient have a stroke diagnosis?: No VTE Prior VTE?: No VTE Risk Level:: Medical - moderate - high VTE Device Contraindication: Treatment Not Indicated VTE Drug Contraindication: N/A - Med Ordered
[2022-05-09 15:15] VITALS: BP 147/68; PULSE 65; RESP 18; TEMP 36.4; O2SAT 98
[2022-05-09 16:08] LABS: Glucose, Whole Blood 302 mg/dL (60-115)
--- NOTE | 2022-05-09 17:35 | PC.NURSE ---
patient has open diabetic ulcers on bilat feet as documented. refusing this rn to change dressings, prfers to change my dressings on my own . educated patient on the need for wounds to be clean and covered, dressing supplies provided. wounds have pink wound base with minimal drainage as seen by this RN.
[2022-05-09 19:08] VITALS: BP 156/70; PULSE 56; RESP 20; TEMP 35.9; O2SAT 95
[2022-05-09 19:48] LABS: Glucose, Whole Blood 316 mg/dL (60-115)
[2022-05-09] MEDS: Enoxaparin Sodium 40 MG/0.4 ML SYRINGE SUBCUT (20:15)
[2022-05-09] MEDS: Atorvastatin Calcium 40 MG TABLET PO (20:16)
[2022-05-09] MEDS: Insulin Glargine,Hum.rec.anlog 100 UNIT/ML 10 ML VIAL 120 UNIT SUBCUT (20:30)
[2022-05-09 20:43] LABS: Vancomycin Trough 5.7 mcg/mL (10.0-20.0)
--- NOTE | 2022-05-09 21:04 | HE.PHANOTE ---
RE: vanco Trough on 05/09 came back low at 5.7; nurse had already began 750mg infusion so I put in an order for 500mg on top of that tonight; increased dose to 1250mg Q12H with next level to be drawn 05/11/22 @0700
[2022-05-09] MEDS: vancomycin HCL 500 MG in 0.9 % Sodium Chloride 100 ML 110 MG IV (21:50)
[2022-05-10] MEDS: oxyCODONE HCl Immed Release 5 MG TABLET 10 MG PO ×5 (03:01→20:36)
[2022-05-10 05:01] VITALS: BP 154/77; PULSE 73; RESP 17; TEMP 36.2; O2SAT 98
[2022-05-10 07:08] LABS: Creatinine Clr Calc Pharmacy 141.9; Estimated Glomerular Filt Rate > 60
[2022-05-10] MEDS: 0.9 % Sodium Chloride Flush 3 ML SYRINGE IVFLUSH (07:35)
[2022-05-10] MEDS: Insulin Lispro 100 UNIT/ML 3 ML VIAL SUBCUT ×7 (07:35→20:38)
[2022-05-10 07:38] LABS: Glucose, Whole Blood 234 mg/dL (60-115)
[2022-05-10 08:00] VITALS: BP 177/87; PULSE 58; RESP 18; TEMP 36.9; O2SAT 98
[2022-05-10] MEDS: QUEtiapine Fumarate 100 MG TABLET PO ×2 (08:07→20:36)
[2022-05-10] MEDS: Gabapentin 600 MG TABLET PO ×3 (08:07→20:37)
[2022-05-10] MEDS: cloNIDine HCL 0.2 MG TABLET PO ×3 (08:07→20:36)
[2022-05-10] MEDS: methADONE HCl 20 MG/2 ML ORAL.CONC 85 MG PO (08:09)
[2022-05-10] MEDS: vancomycin HCL 1,250 MG in 0.9 % Sodium Chloride 250 ML 166.67 MG IV ×2 (08:10→20:37)
[2022-05-10] MEDS: clonazePAM 1 MG TABLET PO ×2 (08:49→20:36)
[2022-05-10] MEDS: 0.9 % Sodium Chloride Flush 10 ML SYRINGE 5 ML IVFLUSH ×3 (09:44→20:38)
[2022-05-10 11:33] LABS: Glucose, Whole Blood 279 mg/dL (60-115)
--- NOTE | 2022-05-10 12:44 | P.CDIC_ITS ---
CDI Concurrent Query Documentation Clarification: PHYSICIAN'S DOCUMENTATION REQUEST Date of Query: 05/10/22 1244 Patient Name: Jamar Stephens Admit Date: 04/25/22 Dear Doctor, A review of the medical record indicates additional documentation may be needed. Please review below and update the documentation accordingly. Clinical Indicators: Is there a diagnosis that correlates with the findings below: Risk Factors/Clinical Indicators/Treatments Labs: POC on 05/09: 316 POC on 05/10: 279 Home medications: Insulin glargine 120 units sq at HS Insulin lispro 15 units sq TID Please clarify the following regarding Diabetes Mellitus (DM): * Hyperglycemia * No complications of DM * Other complication ? please specify * Unable to determine Use of terms such as suspected, likely, concern for, or probable (associated with a specific diagnosis that is being evaluated, monitored, or treated as if it exists) are acceptable and can be coded in the inpatient setting, when documented at the time of discharge. Thank you, Tammi Patterson MS, RN, CCRN Extension: [phone] Please use your independent medical judgment in providing your response. THIS QUERY IS PART OF THE PERMANENT MEDICAL RECORD Provider Response: Other Other Diagnosis: dm with hyperglycemia
--- NOTE | 2022-05-10 12:54 | MHC.RECOVRN ---
Spoke with CM, pt continues awaiting placement. No further action until placement is secured.
--- NOTE | 2022-05-10 13:50 | P.PNIM_ITS ---
Subjective Subjective Date of Service: 05/10/22 Interval History: No acute issues overnight.? Tolerating therapies.? Awaiting placement fs somewhat elevated Review of Systems Denies chest painor? shortness of breath or? nausea vomiting diarrhae or fever or chills Physical Exam Vital Signs: Vital Signs: Last Vital Signs Temp 98.4 F 05/10/22 08:00 Pulse 58 05/10/22 08:00 Resp 18 05/10/22 08:00 BP 177/87 H 05/10/22 08:00 Pulse Ox 98 05/10/22 08:00 O2 Del Method 05/10/22 08:00 O2 Flow Rate 2.0 05/10/22 08:00 BMI result Body Mass Index 36.0 ? Appearance: Alert.? Oriented X3.? not in distress.? cvs: rrr, [id number] res: clear to auscultation ,no rhonchii or wheezing abd: no rebound or guarding ,nt, bs present. ext pulses present , no cyanosis .foot ulcer area seems improving,no discharge neuro: axo3 , nonfocal. Objective Data Active Medications Acetaminophen (Acetaminophen 325 Mg Tablet) 650 mg PO Q6H PRN PRN Reason: Pain, Mild (Pain Scale 1-3) Atorvastatin Calcium (Atorvastatin Calcium 40 Mg Tablet) 40 mg PO BEDTIME [facility] Last Admin: 05/09/22 20:16 Dose: 40 mg Documented By: HUY Clonazepam (Clonazepam 1 Mg Tablet) 1 mg PO BID PRN PRN Reason: Anxiety Last Admin: 05/10/22 08:49 Dose: 1 mg Documented By: WENDI Clonidine HCl (Clonidine Hcl 0.2 Mg Tablet) 0.2 mg PO TID [facility]; Protocol Last Admin: 05/10/22 08:07 Dose: 0.2 mg Documented By: WENDI Dextrose (Dextrose 50 % 25 Gm/50 Ml Syringe) 25 gm IVPUSH Q15M PRN; Protocol PRN Reason: per Hypoglycemia Standing Ord. Docusate Sodium (Docusate Sodium 100 Mg Capsule) 100 mg PO DAILY PRN PRN Reason: Constipation Enoxaparin Sodium (Enoxaparin Sodium 40 Mg/0.4 Ml Syringe) 40 mg SUBCUT Q24H [facility] Last Admin: 05/09/22 20:15 Dose: 40 mg Documented By: HUY Furosemide (Furosemide 40 Mg Tablet) 40 mg PO BID@0800,1700 [facility]; Protocol Last Admin: 05/08/22 08:30 Dose: Not Given Documented By: TERESA Non-Admin Reason: Patient Refused Gabapentin (Gabapentin 600 Mg Tablet) 600 mg PO TID [facility] Last Admin: 05/10/22 08:07 Dose: 600 mg Documented By: WENDI Glucose (Glucose Gel 15 Gm Gel..Gram.) 15 gm PO Q15M PRN; Protocol PRN Reason: per Hypoglycemia Standing Ord. Vancomycin HCl 1,250 mg/ (Sodium Chloride) 250 mls @ 166.667 mls/hr IV Q12H [facility] Last Infusion: 05/10/22 09:45 Dose: 0 mls/hr Documented By: WENDI Insulin Glargine (Insulin Glargine,Hum.Rec.Anlog 100 Unit/Ml 10 Ml Vial) 120 unit SUBCUT BEDTIME [facility] Last Admin: 05/09/22 20:30 Dose: 120 unit Documented By: HUY Insulin Human Lispro (Insulin Lispro 100 Unit/Ml 3 Ml Vial) 0 unit SUBCUT QIDACHS [facility]; Protocol Last Admin: 05/10/22 11:40 Dose: 6 unit Documented By: WENDI Insulin Human Lispro (Insulin Lispro 100 Unit/Ml 3 Ml Vial) 5 unit SUBCUT TIDWM [facility] Last Admin: 05/10/22 11:41 Dose: 5 unit Documented By: WENDI Methadone HCl (Methadone Hcl 20 Mg/2 Ml Oral.Conc) 85 mg PO DAILY [facility] Last Admin: 05/10/22 08:09 Dose: 85 mg Documented By: WENDI Ondansetron HCl (Ondansetron Hcl 4 Mg/2 Ml Vial) 4 mg IVPUSH Q8H PRN PRN Reason: Nausea and Vomiting Oxycodone HCl (Oxycodone Hcl Immed Release 5 Mg Tablet) 10 mg PO Q4H PRN PRN Reason: Pain, Severe (Pain Scale 7-10) Last Admin: 05/10/22 12:19 Dose: 10 mg Documented By: WENDI Pharmacy Consult (Consult Rx Perform Med Rec) 1 each MISCELLANE ONCE PRN PRN Reason: Consult order Pharmacy Consult (Consult Rx Perform Med Rec) 1 each MISCELLANE ONCE PRN PRN Reason: Consult order Quetiapine Fumarate (Quetiapine Fumarate 100 Mg Tablet) 100 mg PO BID [facility] Last Admin: 05/10/22 08:07 Dose: 100 mg Documented By: WENDI Sodium Chloride (0.9 % Sodium Chloride Flush 3 Ml Syringe) 3 ml IVFLUSH QSHIFT [facility] Last Admin: 05/10/22 07:35 Dose: 3 ml Documented By: WENDI Sodium Chloride (0.9 % Sodium Chloride Flush 10 Ml Syringe) 5 ml IVFLUSH TID [facility] Last Admin: 05/10/22 09:44 Dose: 5 ml Documented By: WENDI Labs CBC & Chem 7: 04/29/22 05:10 05/10/22 06:01 Labs: Laboratory Results - last 24 hr 05/09/22 05/09/22 05/09/22 15:21 19:41 19:43 Estim Creat Clear Calc Estimated GFR POC Glucose 302 H 316 H Vancomycin Trough 5.7 L 05/10/22 05/10/22 05/10/22 06:01 07:27 11:28 Estim Creat Clear Calc 141.9 Estimated GFR > 60 POC Glucose 234 H 279 H Vancomycin Trough Assessment and Plan (1) Acute osteomyelitis: Status: Acute Plan 51-year-old male with history of diabetes type 2 insulin dependent, peripheral arterial disease status post right transmetatarsal amputation, chronic wounds bilateral, polysubstance abuse, hypertension, HLD, anxiety, chronic respiratory a proxy of following COVID-19 on 2 L oxygen 26/12 comes here for worsening of the wound on the top of left foot pain? Patient was just admitted and discharged on 03/21 for a right amputated metatarsal foot ulcer was given antibiotics patient is still taking doxycycline patient says was had a small wound on the top of the left foot when he was admitted which got worse in last 3 days it just opened up no fever no chills patient unable to follow up with wound clinic since discharge on 03/21.? Now with PICC line awaiting placement for long-term antibiotics 1. Acute osteomyelitis -PICC line without issue vanco trough around 7 ,renal function seems fine encouraged for hydration vanco trough is 5.7,vanco adjusted yesterday -Vancomycin(day12) IV along with p.o. Levaquin(day 12) x6 weeks -awaiting placement 2. DM 2 -continue long-acting along with lispro sliding scale -adjust as indicated 3. Hypertension -acceptable control on current therapies hold lasix also for today since vanco trough high Full code Lovenox Patient will require ongoing hospitalization for IV antibiotics to treat acute osteomyelitis,awaiting placement Quality Stroke Does the patient have a stroke diagnosis?: No VTE Prior VTE?: No VTE Risk Level:: Medical - moderate - high VTE Device Contraindication: Treatment Not Indicated VTE Drug Contraindication: N/A - Med Ordered
[2022-05-10 15:25] VITALS: BP 159/81; PULSE 62; RESP 20; TEMP 36.6; O2SAT 99
--- NOTE | 2022-05-10 16:11 | MHC.CM.PN ---
ADDITIONAL REFERRALS PLACED NO BED OFFER FROM [facility] OF THIS NOTE
[2022-05-10 16:31] LABS: Glucose, Whole Blood 275 mg/dL (60-115)
[2022-05-10 18:59] VITALS: BP 133/76; PULSE 65; RESP 20; TEMP 36.3; O2SAT 98
[2022-05-10 19:46] LABS: Glucose, Whole Blood 262 mg/dL (60-115)
[2022-05-10] MEDS: Atorvastatin Calcium 40 MG TABLET PO (20:37)
[2022-05-10] MEDS: Enoxaparin Sodium 40 MG/0.4 ML SYRINGE SUBCUT (20:37)
[2022-05-10] MEDS: Insulin Glargine,Hum.rec.anlog 100 UNIT/ML 10 ML VIAL 120 UNIT SUBCUT (20:38)
[2022-05-11] MEDS: 0.9 % Sodium Chloride Flush 3 ML SYRINGE IVFLUSH (00:03)
[2022-05-11] MEDS: oxyCODONE HCl Immed Release 5 MG TABLET 10 MG PO ×5 (00:38→21:05)
[2022-05-11 04:00] VITALS: BP 141/78; PULSE 60; RESP 16; TEMP 36; O2SAT 96
[2022-05-11 07:07] LABS: Hematocrit 35.3 % (42.0-52.0); Hemoglobin 11.5 g/dl (14.0-18.0); Mean Corpuscular HGB Conc 32.6 g/dl (31.0-36.0); Mean Corpuscular Hemoglobin 27.4 pg (27.0-33.0); Mean Corpuscular Volume 84.2 fL (80.0-98.0); Mean Platelet Volume 11.3 fL (9.4-12.4); Platelet Count 104 X10*3/uL (160-400); Red Blood Count 4.19 X10*6/uL (4.60-5.80); Red Cell Distribution Width 14.7 % (11.0-16.0)
[2022-05-11 07:17] LABS: Creatinine Clr Calc Pharmacy 138.6; Estimated Glomerular Filt Rate > 60
[2022-05-11 07:26] LABS: Vancomycin Random 15.1 mcg/mL (15-20)
[2022-05-11 07:43] LABS: Anion Gap 14 (12-20); Blood Urea Nitrogen 17 mg/dL (9-16); Calcium 8.5 mg/dL (8.4-10.2); Carbon Dioxide 20 mmol/L (22-29); Chloride 105 mmol/L (96-108); Creatinine Clr Calc Pharmacy 143.6; Estimated Glomerular Filt Rate > 60; Glucose Random 262 mg/dL (60-115); Potassium 4.2 mmol/L (3.3-5.1); Sodium 135 mmol/L (135-145)
[2022-05-11 08:00] VITALS: BP 153/84; PULSE 56; RESP 17; TEMP 36.6; O2SAT 96
[2022-05-11 08:02] LABS: Glucose, Whole Blood 237 mg/dL (60-115)
[2022-05-11] MEDS: Insulin Lispro 100 UNIT/ML 3 ML VIAL SUBCUT ×7 (08:09→21:09)
[2022-05-11] MEDS: methADONE HCl 20 MG/2 ML ORAL.CONC 85 MG PO (08:21)
[2022-05-11] MEDS: Gabapentin 600 MG TABLET PO ×3 (08:22→21:10)
[2022-05-11] MEDS: QUEtiapine Fumarate 100 MG TABLET PO ×2 (08:22→21:10)
[2022-05-11] MEDS: clonazePAM 1 MG TABLET PO ×2 (08:23→21:21)
[2022-05-11] MEDS: cloNIDine HCL 0.2 MG TABLET PO ×3 (08:23→21:10)
--- NOTE | 2022-05-11 08:24 | HE.PHANOTE ---
VANCO LEVEL OF 15.1. PT IS ON THE BORDER OF 1 GM Q12H VS 1250 MG Q12H. RECHECK A LEVEL BEFORE TONIGHT'S DOSE TO MAKE SURE LEVEL IS NOT RAPIDLY INCREASING
[2022-05-11] MEDS: vancomycin HCL 1,250 MG in 0.9 % Sodium Chloride 250 ML 166.67 MG IV (10:10)
[2022-05-11] MEDS: 0.9 % Sodium Chloride Flush 10 ML SYRINGE 5 ML IVFLUSH ×3 (10:12→21:11)
--- NOTE | 2022-05-11 10:34 | PC.NURSE ---
Walked into patients room and he was changing his own dressing on the right foot. I offered to change the dressing on the left foot and he stated that he's got it. He continued to change dressing.
[2022-05-11 11:38] LABS: Glucose, Whole Blood 166 mg/dL (60-115)
--- NOTE | 2022-05-11 12:28 | HO.PM.IMPN ---
Subjective Subjective Date of Service: 05/11/22 Interval History: No acute issues overnight.? Tolerating therapies.? Awaiting placement, PICC line in place fs improved from yesterday with increased humalog Review of Systems General: No fevers, malaise, unintentional weight loss HEENT: No blurred vision, diplopia. Cardiovascular: No chest pain, palpitations, or leg edema Respiratory: No shortness of breath, wheezing, cough GI: No abdominal pain, nausea, vomiting, diarrhea, constipation, melena, hematochezia : No dysuria, hematuria Neuro: No headaches, weakness, paresthesias Skin: No rashes or lesions Physical Exam Vital Signs: Vital Signs: Last Vital Signs Temp 97.8 F 05/11/22 08:00 Pulse 56 05/11/22 08:00 Resp 17 05/11/22 08:00 BP 153/84 H 05/11/22 08:00 Pulse Ox 96 05/11/22 08:00 O2 Del Method 05/11/22 08:00 O2 Flow Rate 2.0 05/11/22 08:00 BMI result Body Mass Index 36.0 Constitutional - Awake and Alert, No apparent distress Eyes - PERRLA, EOMI Cardiovascular - S1S2, RRR, No edema Respiratory - Normal lung expansion, Normal respiratory effort, No respiratory distress, CTA bilaterally Gastrointestinal - NT / ND; +BS; No rebound or guarding Extremities - no calf tenderness bilaterally, no swelling Skin - Warm/Dry. Shallow cutaneous durations of the feet bilaterally. Two plantar surface right foot with granulation tissue measures about 2.5cm x3cm each. Single ulceration overlying dorsal aspect 1st MTP joint measuring about 2.5cm with granulation tissue. wounds are dry without purulent da Neurological - Alert & oriented x3 Psychological - Appropriate affect Objective Data Active Medications Acetaminophen (Acetaminophen 325 Mg Tablet) 650 mg PO Q6H PRN PRN Reason: Pain, Mild (Pain Scale 1-3) Atorvastatin Calcium (Atorvastatin Calcium 40 Mg Tablet) 40 mg PO BEDTIME [facility] Last Admin: 05/10/22 20:37 Dose: 40 mg Documented By: KATERINA Clonidine HCl (Clonidine Hcl 0.2 Mg Tablet) 0.2 mg PO TID [facility]; Protocol Last Admin: 05/11/22 08:23 Dose: 0.2 mg Documented By: RICKY Dextrose (Dextrose 50 % 25 Gm/50 Ml Syringe) 25 gm IVPUSH Q15M PRN; Protocol PRN Reason: per Hypoglycemia Standing Ord. Docusate Sodium (Docusate Sodium 100 Mg Capsule) 100 mg PO DAILY PRN PRN Reason: Constipation Enoxaparin Sodium (Enoxaparin Sodium 40 Mg/0.4 Ml Syringe) 40 mg SUBCUT Q24H [facility] Last Admin: 05/10/22 20:37 Dose: 40 mg Documented By: KATERINA Furosemide (Furosemide 40 Mg Tablet) 40 mg PO BID@0800,1700 [facility]; Protocol Last Admin: 05/08/22 08:30 Dose: Not Given Documented By: TERESA Non-Admin Reason: Patient Refused Gabapentin (Gabapentin 600 Mg Tablet) 600 mg PO TID [facility] Last Admin: 05/11/22 08:22 Dose: 600 mg Documented By: RICKY Glucose (Glucose Gel 15 Gm Gel..Gram.) 15 gm PO Q15M PRN; Protocol PRN Reason: per Hypoglycemia Standing Ord. Vancomycin HCl 1,250 mg/ (Sodium Chloride) 250 mls @ 166.667 mls/hr IV Q12H [facility] Last Infusion: 05/11/22 12:26 Dose: 0 mls/hr Documented By: RICKY Insulin Glargine (Insulin Glargine,Hum.Rec.Anlog 100 Unit/Ml 10 Ml Vial) 120 unit SUBCUT BEDTIME [facility] Last Admin: 05/10/22 20:38 Dose: 120 unit Documented By: KATERINA Insulin Human Lispro (Insulin Lispro 100 Unit/Ml 3 Ml Vial) 0 unit SUBCUT QIDACHS [facility]; Protocol Last Admin: 05/11/22 12:19 Dose: 2 unit Documented By: RICKY Insulin Human Lispro (Insulin Lispro 100 Unit/Ml 3 Ml Vial) 5 unit SUBCUT TIDWM [facility] Last Admin: 05/11/22 12:18 Dose: 5 unit Documented By: RICKY Methadone HCl (Methadone Hcl 20 Mg/2 Ml Oral.Conc) 85 mg PO DAILY [facility] Last Admin: 05/11/22 08:21 Dose: 85 mg Documented By: RICKY Ondansetron HCl (Ondansetron Hcl 4 Mg/2 Ml Vial) 4 mg IVPUSH Q8H PRN PRN Reason: Nausea and Vomiting Oxycodone HCl (Oxycodone Hcl Immed Release 5 Mg Tablet) 10 mg PO Q4H PRN PRN Reason: Pain, Severe (Pain Scale 7-10) Last Admin: 05/11/22 10:09 Dose: 10 mg Documented By: RICKY Pharmacy Consult (Consult Rx Perform Med Rec) 1 each MISCELLANE ONCE PRN PRN Reason: Consult order Pharmacy Consult (Consult Rx Perform Med Rec) 1 each MISCELLANE ONCE PRN PRN Reason: Consult order Quetiapine Fumarate (Quetiapine Fumarate 100 Mg Tablet) 100 mg PO BID [facility] Last Admin: 05/11/22 08:22 Dose: 100 mg Documented By: RICKY Sodium Chloride (0.9 % Sodium Chloride Flush 3 Ml Syringe) 3 ml IVFLUSH QSHIFT [facility] Last Admin: 05/11/22 10:14 Dose: Not Given Documented By: RICKY Non-Admin Reason: PICC line Sodium Chloride (0.9 % Sodium Chloride Flush 10 Ml Syringe) 5 ml IVFLUSH TID [facility] Last Admin: 05/11/22 10:12 Dose: 5 ml Documented By: RICKY Labs CBC & Chem 7: 05/11/22 06:57 05/11/22 06:57 Labs: Laboratory Results - last 24 hr 05/10/22 05/10/22 05/11/22 15:28 19:02 06:57 MCV 84.2 MCH 27.4 MCHC 32.6 RDW 14.7 Plt Count 104 L MPV 11.3 Absolute Nucleated RBC 0.000 Nucleated RBC % (auto) 0.0 Anion Gap Estim Creat Clear Calc Estimated GFR POC Glucose 275 H 262 H Random Glucose Calcium Random Vancomycin 05/11/22 05/11/22 05/11/22 06:57 06:57 06:57 MCV MCH MCHC RDW Plt Count MPV Absolute Nucleated RBC Nucleated RBC % (auto) Anion Gap 14 Estim Creat Clear Calc 143.6 138.6 Estimated GFR > 60 > 60 POC Glucose Random Glucose 262 H Calcium 8.5 Random Vancomycin 15.1 05/11/22 05/11/22 07:46 11:30 MCV MCH MCHC RDW Plt Count MPV Absolute Nucleated RBC Nucleated RBC % (auto) Anion Gap Estim Creat Clear Calc Estimated GFR POC Glucose 237 H 166 H Random Glucose Calcium Random Vancomycin Assessment and Plan (1) Acute osteomyelitis: Status: Acute Plan 51-year-old male with history of diabetes type 2 insulin dependent, peripheral arterial disease status post right transmetatarsal amputation, chronic wounds bilateral, polysubstance abuse, hypertension, HLD, anxiety, chronic respiratory a proxy of following COVID-19 on 2 L oxygen / comes here for worsening of the wound on the top of left foot pain? Patient was just admitted and discharged on 03/21 for a right amputated metatarsal foot ulcer was given antibiotics patient is still taking doxycycline patient says was had a small wound on the top of the left foot when he was admitted which got worse in last 3 days it just opened up no fever no chills patient unable to follow up with wound clinic since discharge on 03/21.? Now with PICC line awaiting placement for long-term antibiotics 1. Acute osteomyelitis -PICC line in place without issues vanco trough around 15 ,renal function is baseline encouraged for hydration vanco trough is 5.7,vanco adjusted yesterday -Vancomycin(day13) IV along with p.o. Levaquin(day 13) x6 weeks per ID -awaiting placement 2. DM 2- glucose levels improved following humalog adjustment -continue long-acting along with lispro sliding scale -adjust as indicated 3. Hypertension -acceptable control on current therapies -resume lasix 4. Opiate use disorder -continue methadone Full code Lovenox Patient will require ongoing hospitalization for IV antibiotics to treat acute osteomyelitis,awaiting placement Quality Stroke Does the patient have a stroke diagnosis?: No VTE Prior VTE?: No VTE Risk Level:: Medical - moderate - high VTE Device Contraindication: Treatment Not Indicated VTE Drug Contraindication: N/A - Med Ordered
[2022-05-11 15:12] VITALS: BP 122/70; PULSE 65; RESP 20; TEMP 36.4; O2SAT 98
[2022-05-11 15:45] LABS: Glucose, Whole Blood 299 mg/dL (60-115)
[2022-05-11] MEDS: Furosemide 40 MG TABLET PO (16:35)
[2022-05-11 20:00] VITALS: BP 126/72; PULSE 102; RESP 20; TEMP 36.6; O2SAT 95
[2022-05-11 20:19] LABS: Vancomycin Random 7.9 mcg/mL (15-20)
--- NOTE | 2022-05-11 20:35 | HE.PHANOTE ---
RE: vanco PM trough on 05/11 came back at 7.9; continuing 1250mg Q12H (predicted AUC 462mg/L) dose with next level to be drawn before AM dose on 05/12.
[2022-05-11 20:55] LABS: Glucose, Whole Blood 346 mg/dL (60-115)
[2022-05-11] MEDS: Insulin Glargine,Hum.rec.anlog 100 UNIT/ML 10 ML VIAL 120 UNIT SUBCUT (21:07)
[2022-05-11] MEDS: Atorvastatin Calcium 40 MG TABLET PO (21:10)
[2022-05-11] MEDS: vancomycin HCL 1,250 MG in 0.9 % Sodium Chloride 250 ML 166.66 MG IV (21:11)
[2022-05-11 22:25] VITALS: BP 108/54; PULSE 96; RESP 20; TEMP 36.6
[2022-05-12] MEDS: oxyCODONE HCl Immed Release 5 MG TABLET 10 MG PO ×6 (01:36→23:24)
[2022-05-12 02:40] VITALS: RESP 18
[2022-05-12 03:22] VITALS: BP 142/67; PULSE 61; RESP 16; TEMP 36.9; O2SAT 97
[2022-05-12 07:40] VITALS: BP 126/71; PULSE 63; RESP 17; TEMP 36.8; O2SAT 97
[2022-05-12 07:45] LABS: Glucose, Whole Blood 310 mg/dL (60-115)
[2022-05-12 07:48] LABS: Vancomycin Trough 11.2 mcg/mL (10.0-20.0)
[2022-05-12 07:54] LABS: Creatinine Clr Calc Pharmacy 129.5; Estimated Glomerular Filt Rate > 60
[2022-05-12] MEDS: Insulin Lispro 100 UNIT/ML 3 ML VIAL SUBCUT ×4 (08:04→20:42)
[2022-05-12] MEDS: Gabapentin 600 MG TABLET PO (08:06)
[2022-05-12] MEDS: cloNIDine HCL 0.2 MG TABLET PO ×3 (08:06→19:23)
[2022-05-12] MEDS: Furosemide 40 MG TABLET PO ×2 (08:06→16:44)
[2022-05-12] MEDS: clonazePAM 1 MG TABLET PO ×2 (08:06→19:22)
[2022-05-12] MEDS: QUEtiapine Fumarate 100 MG TABLET PO ×2 (08:06→19:23)
[2022-05-12] MEDS: methADONE HCl 20 MG/2 ML ORAL.CONC 85 MG PO (08:07)
[2022-05-12] MEDS: 0.9 % Sodium Chloride Flush 10 ML SYRINGE 5 ML IVFLUSH ×2 (08:07→14:52)
[2022-05-12] MEDS: vancomycin HCL 1,250 MG in 0.9 % Sodium Chloride 250 ML 166.67 MG IV ×2 (08:08→19:23)
--- NOTE | 2022-05-12 08:15 | HE.PHANOTE ---
YAKOV MARIA CONTINUE CURRENT DOSE; NEXT LEVEL DUE 05/13 @1900 ALLY
--- NOTE | 2022-05-12 09:55 | HO.PM.IMPN ---
Subjective Subjective Date of Service: 05/12/22 Interval History: Pt seen in follow up for osteomyelitis left foot Glucose levels remain uncontrolled. Reports he is up all night and eats all night, sleeps during the day (worked nights for years). Tolerating therapies but reports uncontrolled pain in feet. Wants to go home. Feels the osteomyelitis is chronic.? Awaiting placement, PICC line in place Review of Systems General: No fevers, malaise, unintentional weight loss HEENT: No blurred vision, diplopia. Cardiovascular: No chest pain, palpitations, or leg edema Respiratory: No shortness of breath, wheezing, cough GI: No abdominal pain, nausea, vomiting, diarrhea, constipation, melena, hematochezia : No dysuria, hematuria MSK: +bilateral foot pain Neuro: No headaches, weakness, paresthesias Skin: No rashes or lesions Physical Exam Vital Signs: Vital Signs: Last Vital Signs Temp 98.3 F 05/12/22 07:40 Pulse 63 05/12/22 07:40 Resp 17 05/12/22 07:40 BP 126/71 05/12/22 07:40 Pulse Ox 97 05/12/22 07:40 O2 Del Method 05/12/22 07:40 O2 Flow Rate 2.0 05/12/22 07:40 BMI result Body Mass Index 36.0 Constitutional - Awake and Alert, No apparent distress Eyes - PERRLA, EOMI Cardiovascular - S1S2, RRR, No edema Respiratory - Normal lung expansion, Normal respiratory effort, No respiratory distress on 2L o2, CTA bilaterally Gastrointestinal - NT / ND; +BS; No rebound or guarding Extremities - no calf tenderness bilaterally, no swelling Skin - Warm/Dry. 2cm x2cm shallow ulceration with slough, no necrosis Neurological - Alert & oriented x3, 5/5 strength BUE and BLE Psychological - Appropriate affect Objective Data Active Medications Acetaminophen (Acetaminophen 325 Mg Tablet) 650 mg PO Q6H PRN PRN Reason: Pain, Mild (Pain Scale 1-3) Atorvastatin Calcium (Atorvastatin Calcium 40 Mg Tablet) 40 mg PO BEDTIME [facility] Last Admin: 05/11/22 21:10 Dose: 40 mg Documented By: TORSTEN Clonazepam (Clonazepam 1 Mg Tablet) 1 mg PO BID PRN PRN Reason: Anxiety Last Admin: 05/12/22 08:06 Dose: 1 mg Documented By: REY Clonidine HCl (Clonidine Hcl 0.2 Mg Tablet) 0.2 mg PO TID [facility]; Protocol Last Admin: 05/12/22 08:06 Dose: 0.2 mg Documented By: REY Dextrose (Dextrose 50 % 25 Gm/50 Ml Syringe) 25 gm IVPUSH Q15M PRN; Protocol PRN Reason: per Hypoglycemia Standing Ord. Docusate Sodium (Docusate Sodium 100 Mg Capsule) 100 mg PO DAILY PRN PRN Reason: Constipation Enoxaparin Sodium (Enoxaparin Sodium 40 Mg/0.4 Ml Syringe) 40 mg SUBCUT Q24H [facility] Last Admin: 05/11/22 21:06 Dose: Not Given Documented By: TORSTEN Non-Admin Reason: Patient Refused Furosemide (Furosemide 40 Mg Tablet) 40 mg PO BID@0800,1700 [facility]; Protocol Last Admin: 05/12/22 08:06 Dose: 40 mg Documented By: REY Gabapentin (Gabapentin 600 Mg Tablet) 600 mg PO TID [facility] Last Admin: 05/12/22 08:06 Dose: 600 mg Documented By: REY Glucose (Glucose Gel 15 Gm Gel..Gram.) 15 gm PO Q15M PRN; Protocol PRN Reason: per Hypoglycemia Standing Ord. Vancomycin HCl 1,250 mg/ (Sodium Chloride) 250 mls @ 166.667 mls/hr IV Q12H [facility] Last Admin: 05/12/22 08:08 Dose: 166.67 mls/hr Documented By: REY Insulin Glargine (Insulin Glargine,Hum.Rec.Anlog 100 Unit/Ml 10 Ml Vial) 120 unit SUBCUT BEDTIME [facility] Last Admin: 05/11/22 21:07 Dose: 120 unit Documented By: TORSTEN Insulin Human Lispro (Insulin Lispro 100 Unit/Ml 3 Ml Vial) 0 unit SUBCUT QIDACHS [facility]; Protocol Last Admin: 05/12/22 08:04 Dose: 8 unit Documented By: REY Insulin Human Lispro (Insulin Lispro 100 Unit/Ml 3 Ml Vial) 10 unit SUBCUT TIDWM [facility] Methadone HCl (Methadone Hcl 20 Mg/2 Ml Oral.Conc) 85 mg PO DAILY [facility] Last Admin: 05/12/22 08:07 Dose: 85 mg Documented By: REY Ondansetron HCl (Ondansetron Hcl 4 Mg/2 Ml Vial) 4 mg IVPUSH Q8H PRN PRN Reason: Nausea and Vomiting Oxycodone HCl (Oxycodone Hcl Immed Release 5 Mg Tablet) 10 mg PO Q4H PRN PRN Reason: Pain, Severe (Pain Scale 7-10) Last Admin: 05/12/22 05:51 Dose: 10 mg Documented By: ZAKI Pharmacy Consult (Consult Rx Perform Med Rec) 1 each MISCELLANE ONCE PRN PRN Reason: Consult order Pharmacy Consult (Consult Rx Perform Med Rec) 1 each MISCELLANE ONCE PRN PRN Reason: Consult order Quetiapine Fumarate (Quetiapine Fumarate 100 Mg Tablet) 100 mg PO BID [facility] Last Admin: 05/12/22 08:06 Dose: 100 mg Documented By: REY Sodium Chloride (0.9 % Sodium Chloride Flush 3 Ml Syringe) 3 ml IVFLUSH QSHIFT [facility] Last Admin: 05/12/22 08:07 Dose: Not Given Documented By: REY Non-Admin Reason: No Access Sodium Chloride (0.9 % Sodium Chloride Flush 10 Ml Syringe) 5 ml IVFLUSH TID [facility] Last Admin: 05/12/22 08:07 Dose: 5 ml Documented By: REY Labs CBC & Chem 7: 05/11/22 06:57 05/12/22 06:48 Labs: Laboratory Results - last 24 hr 05/11/22 05/11/22 05/11/22 11:30 15:16 19:20 Estim Creat Clear Calc Estimated GFR POC Glucose 166 H 299 H 346 H Vancomycin Trough Random Vancomycin 05/11/22 05/12/22 05/12/22 19:40 06:48 06:48 Estim Creat Clear Calc 129.5 Estimated GFR > 60 POC Glucose Vancomycin Trough 11.2 Random Vancomycin 7.9 L 05/12/22 07:39 Estim Creat Clear Calc Estimated GFR POC Glucose 310 H Vancomycin Trough Random Vancomycin Assessment and Plan (1) Acute osteomyelitis: Status: Acute Plan 51-year-old male with history of diabetes type 2 insulin dependent, peripheral arterial disease status post right transmetatarsal amputation, chronic wounds bilateral, polysubstance abuse, hypertension, HLD, anxiety, chronic respiratory a proxy of following COVID-19 on 2 L oxygen 26/12 comes here for worsening of the wound on the top of left foot pain? Patient was just admitted and discharged on 03/21 for a right amputated metatarsal foot ulcer was given antibiotics patient is still taking doxycycline patient says was had a small wound on the top of the left foot when he was admitted which got worse in last 3 days it just opened up no fever no chills patient unable to follow up with wound clinic since discharge on 03/21.? Now with PICC line awaiting placement for long-term antibiotics #Acute osteomyelitis -PICC line in place without issues -ID recommending 6 w IV vanco (D14) and PO levaquin (D1) -Renal function baseline -Methadone and oxycodone for pain, increase gabapentin to 800mg TID -awaiting placement #Bilateral foot ulcers- chronic and present on admission secondary to poorly controlled DM and PAD -Patient applies dressings and will continue as advised by gen surg -Right foot wounds clean and dry -Left foot wound appears to have slough. 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
[2022-05-12] MEDS: levoFLOXacin 750 MG TABLET PO (11:13)
[2022-05-12 11:34] LABS: Glucose, Whole Blood 160 mg/dL (60-115)
[2022-05-12] MEDS: Insulin Lispro 100 UNIT/ML 3 ML VIAL 10 UNIT SUBCUT ×2 (11:44→16:47)
--- NOTE | 2022-05-12 13:16 | P.CDIC_ITS ---
CDI Concurrent Query Documentation Clarification: PHYSICIAN'S DOCUMENTATION REQUEST Date of Query: 05/12/22 1316 Patient Name: Jamar Stephens Admit Date: 04/25/22 Dear Doctor, A review of the medical record indicates additional documentation may be needed. Please review below and update the documentation accordingly. Clinical Indicators: Is there further specificity that correlates with the findings below: Risk Factors/Clinical Indicators/Treatments -Per provider progress note on 05/12: Chronic respiratory failure followign COVID 19 -COntinue supplemental O2 to maintain ox imetry 92% -Per H&P: PMH: Post-COVID chronic dyspnea -Requiring supplemental O2 Clarify which of the following accurately represents the patient's respiratory status: * Chronic respiratory failure (please include type: hypoxic, hypercapnic, etc.) * Other (please specify) * Unable to determine Use of terms such as suspected, likely, concern for, or probable (associated with a specific diagnosis that is being evaluated, monitored, or treated as if it exists) are acceptable and can be coded in the inpatient setting, when documented at the time of discharge. Thank you, Tammi Patterson MS, RN, CCRN Extension: [phone] Please use your independent medical judgment in providing your response. THIS QUERY IS PART OF THE PERMANENT MEDICAL RECORD Provider Response: Other Other Diagnosis: Please review my progress note. QUery sent before note was signed. Pt has chronic respiratory failure with hypoxia related to post-covid 19 dyspnea
[2022-05-12] MEDS: Gabapentin 400 MG CAPSULE 800 MG PO ×2 (14:50→19:22)
[2022-05-12 15:12] VITALS: BP 124/58; RESP 18; O2SAT 96
--- NOTE | 2022-05-12 15:41 | P.PNGS_ITS ---
Subjective Subjective Date of Service: 05/12/22 Interval history: Patient with no new complaints. Found to have an area of redness in the lateral left foot over the 5th MP. Has a previous history of infection in this location which took several years to heal. He also reports thick callus at this location. He continues to have ulceration on the 1st metatarsal medial surface. This is being dressed with silver alginate and dry sterile dressings. Physical Exam Vital Signs: Vital Signs: Last Vital Signs Temp 98.3 F 05/12/22 07:40 Pulse 63 05/12/22 07:40 Resp 18 05/12/22 15:12 BP 124/58 L 05/12/22 15:12 Pulse Ox 96 05/12/22 15:12 O2 Del Method 05/12/22 15:12 O2 Flow Rate 2.0 05/12/22 15:12 BMI result Body Mass Index 36.0 Const: General: comfortable and no acute distress Nutritional Appearance: well nourished Orientation/consciousness: patient oriented x3 Limitations: no limitations Resp: Effort & Inspection: normal respiratory effort, no audible wheezes, no cough and no respiratory distress GI: Inspection: Yes normal to inspection Neuro: General: patient oriented x3 Extrem: Other: Left foot with an open wound along the medial surface as noted above with a granulated base. The granulation is dry with minimal epithelialization at the margin. No necrotic skin or callus is identified. On the lateral surface over the 5th metatarsal an area of slight redness is identified. Skin is boggy to palpation but not clearly fluctuant. No necrotic skin is identified. No definite abscess is appreciated. Ankle/foot/toe images: 1. New area of redness at site of previous infection. Objective Data Active Medications Acetaminophen (Acetaminophen 325 Mg Tablet) 650 mg PO Q6H PRN PRN Reason: Pain, Mild (Pain Scale 1-3) Atorvastatin Calcium (Atorvastatin Calcium 40 Mg Tablet) 40 mg PO BEDTIME [facility] Last Admin: 05/11/22 21:10 Dose: 40 mg Documented By: TORSTEN Clonazepam (Clonazepam 1 Mg Tablet) 1 mg PO BID PRN PRN Reason: Anxiety Last Admin: 05/12/22 08:06 Dose: 1 mg Documented By: REY Clonidine HCl (Clonidine Hcl 0.2 Mg Tablet) 0.2 mg PO TID [facility]; Protocol Last Admin: 05/12/22 14:46 Dose: 0.2 mg Documented By: REY Dextrose (Dextrose 50 % 25 Gm/50 Ml Syringe) 25 gm IVPUSH Q15M PRN; Protocol PRN Reason: per Hypoglycemia Standing Ord. Docusate Sodium (Docusate Sodium 100 Mg Capsule) 100 mg PO DAILY PRN PRN Reason: Constipation Enoxaparin Sodium (Enoxaparin Sodium 40 Mg/0.4 Ml Syringe) 40 mg SUBCUT Q24H [facility] Last Admin: 05/11/22 21:06 Dose: Not Given Documented By: TORSTEN Non-Admin Reason: Patient Refused Furosemide (Furosemide 40 Mg Tablet) 40 mg PO BID@0800,1700 [facility]; Protocol Last Admin: 05/12/22 08:06 Dose: 40 mg Documented By: REY Gabapentin (Gabapentin 400 Mg Capsule) 800 mg PO TID [facility] Last Admin: 05/12/22 14:50 Dose: 800 mg Documented By: REY Glucose (Glucose Gel 15 Gm Gel..Gram.) 15 gm PO Q15M PRN; Protocol PRN Reason: per Hypoglycemia Standing Ord. Vancomycin HCl 1,250 mg/ (Sodium Chloride) 250 mls @ 166.667 mls/hr IV Q12H [facility] Last Infusion: 05/12/22 09:58 Dose: 166.67 mls/hr Documented By: REY Insulin Glargine (Insulin Glargine,Hum.Rec.Anlog 100 Unit/Ml 10 Ml Vial) 120 unit SUBCUT BEDTIME [facility] Last Admin: 05/11/22 21:07 Dose: 120 unit Documented By: TORSTEN Insulin Human Lispro (Insulin Lispro 100 Unit/Ml 3 Ml Vial) 0 unit SUBCUT Q IDACHS [facility]; Protocol Last Admin: 05/12/22 11:46 Dose: Not Given Documented By: REY Non-Admin Reason: No Insulin Coverage Insulin Human Lispro (Insulin Lispro 100 Unit/Ml 3 Ml Vial) 10 unit SUBCUT TIDWM [facility] Last Admin: 05/12/22 11:44 Dose: 10 unit Documented By: REY Levofloxacin (Levofloxacin 750 Mg Tablet) 750 mg PO Q24H [facility] Last Admin: 05/12/22 11:13 Dose: 750 mg Documented By: REY Methadone HCl (Methadone Hcl 20 Mg/2 Ml Oral.Conc) 85 mg PO DAILY [facility] Last Admin: 05/12/22 08:07 Dose: 85 mg Documented By: REY Ondansetron HCl (Ondansetron Hcl 4 Mg/2 Ml Vial) 4 mg IVPUSH Q8H PRN PRN Reason: Nausea and Vomiting Oxycodone HCl (Oxycodone Hcl Immed Release 5 Mg Tablet) 10 mg PO Q4H PRN PRN Reason: Pain, Severe (Pain Scale 7-10) Last Admin: 05/12/22 14:47 Dose: 10 mg Documented By: REY Pharmacy Consult (Consult Rx Perform Med Rec) 1 each MISCELLANE ONCE PRN PRN Reason: Consult order Pharmacy Consult (Consult Rx Perform Med Rec) 1 each MISCELLANE ONCE PRN PRN Reason: Consult order Quetiapine Fumarate (Quetiapine Fumarate 100 Mg Tablet) 100 mg PO BID [facility] Last Admin: 05/12/22 08:06 Dose: 100 mg Documented By: REY Sodium Chloride (0.9 % Sodium Chloride Flush 3 Ml Syringe) 3 ml IVFLUSH QSHIFT [facility] Last Admin: 05/12/22 15:34 Dose: Not Given Documented By: TORSTEN Non-Admin Reason: PT HAS A PICC LINE Sodium Chloride (0.9 % Sodium Chloride Flush 10 Ml Syringe) 5 ml IVFLUSH TID [facility] Last Admin: 05/12/22 14:52 Dose: 5 ml Documented By: REY Labs CBC & Chem 7: 05/11/22 06:57 05/12/22 06:48 Labs: Laboratory Results - last 24 hr 05/11/22 05/11/22 05/11/22 15:16 19:20 19:40 Estim Creat Clear Calc Estimated GFR POC Glucose 299 H 346 H Vancomycin Trough Random Vancomycin 7.9 L 05/12/22 05/12/22 05/12/22 06:48 06:48 07:39 Estim Creat Clear Calc 129.5 Estimated GFR > 60 POC Glucose 310 H Vancomycin Trough 11.2 Random Vancomycin 05/12/22 11:27 Estim Creat Clear Calc Estimated GFR POC Glucose 160 H Vancomycin Trough Random Vancomycin Procedures Date of Service Date of Service: 05/12/22 Progress Note: A&P Assessment and plan (1) Ulcer of left foot: Status: Acute Plan 51-year-old male patient with history of diabetes and previous trauma to the left leg and a nonhealing ulcer in the medial left foot now found to have an area of redness on the lateral left foot. This appears to be a results of compression from the dressing as no definite abscess is appreciated. The skin was protected with fluff gauze followed by Kerlix loosely applied. silver alginate was applied to the open wound on the medial foot. I will monitor the wounds for possible further debridement is necessary. The medial wound may be amenable to a skin graft if the wound fails to progress with current management. Time Spent With Patient Time: Total time spent is greater than 50% in coordination of care (as documented) at patient's floor/unit and/or counseling patient: Quality Stroke Does the patient have a stroke diagnosis?: No VTE Prior VTE?: No VTE Risk Level:: Medical - moderate - high VTE Device Contraindication: Treatment Not Indicated VTE Drug Contraindication: N/A - Med Ordered
[2022-05-12 16:25] LABS: Glucose, Whole Blood 278 mg/dL (60-115)
[2022-05-12] MEDS: Atorvastatin Calcium 40 MG TABLET PO (19:21)
[2022-05-12] MEDS: 0.9 % Sodium Chloride Flush 3 ML SYRINGE IVFLUSH (19:23)
[2022-05-12 19:33] VITALS: BP 140/67; PULSE 58; RESP 18; TEMP 36.4; O2SAT 97
[2022-05-12 20:03] LABS: Glucose, Whole Blood 356 mg/dL (60-115)
[2022-05-12] MEDS: Insulin Glargine,Hum.rec.anlog 100 UNIT/ML 10 ML VIAL 120 UNIT SUBCUT (20:43)
[2022-05-13 03:11] VITALS: BP 158/74; PULSE 70; RESP 14; TEMP 36.6; O2SAT 95
--- NOTE | 2022-05-13 03:33 | PC.NURSE ---
Bedtime OXC=212, Dr. Dias was notified, covered with sliding scale of Lispro 10 units SC, and scheduled Lantus given.
[2022-05-13] MEDS: oxyCODONE HCl Immed Release 5 MG TABLET 10 MG PO ×5 (03:44→22:14)
--- NOTE | 2022-05-13 05:19 | PC.NURSE ---
PICC line is not drawing blood, but can be flushed , unable to draw lab, Dr. Dias was made aware.
[2022-05-13 07:12] LABS: Estimated Glomerular Filt Rate > 60
[2022-05-13 07:57] LABS: Glucose, Whole Blood 243 mg/dL (60-115)
[2022-05-13] MEDS: Insulin Lispro 100 UNIT/ML 3 ML VIAL SUBCUT ×3 (08:39→20:22)
[2022-05-13] MEDS: Furosemide 40 MG TABLET PO ×2 (08:40→16:22)
[2022-05-13] MEDS: Insulin Lispro 100 UNIT/ML 3 ML VIAL 10 UNIT SUBCUT ×3 (08:40→16:22)
[2022-05-13] MEDS: Gabapentin 400 MG CAPSULE 800 MG PO ×3 (08:41→20:24)
[2022-05-13] MEDS: cloNIDine HCL 0.2 MG TABLET PO ×3 (08:41→20:24)
[2022-05-13] MEDS: QUEtiapine Fumarate 100 MG TABLET PO ×2 (08:41→20:24)
[2022-05-13] MEDS: 0.9 % Sodium Chloride Flush 10 ML SYRINGE 5 ML IVFLUSH ×3 (08:43→20:16)
[2022-05-13] MEDS: methADONE HCl 20 MG/2 ML ORAL.CONC 85 MG PO (08:43)
[2022-05-13 08:45] VITALS: BP 128/64; PULSE 61; RESP 18; TEMP 36.4; O2SAT 97
[2022-05-13] MEDS: clonazePAM 1 MG TABLET PO ×2 (09:42→20:24)
[2022-05-13] MEDS: vancomycin HCL 1,250 MG in 0.9 % Sodium Chloride 250 ML 166.67 MG IV (09:44)
[2022-05-13 11:20] LABS: Glucose, Whole Blood 152 mg/dL (60-115)
[2022-05-13] MEDS: levoFLOXacin 750 MG TABLET PO (11:32)
--- NOTE | 2022-05-13 11:40 | MHC.RECOVRN ---
Pts referral has been sent to [facility]. If pt discharges prior to placement or completion of IV abx, pt is able to present to the OTP the following day. If pt is placed locally, this OTP can also be utilized. If pt is placed at [place], new OTP must be estabilished in that area. Pt must be given last dose letter prior to discharge.
--- NOTE | 2022-05-13 13:53 | HO.PM.IMPN ---
Subjective Subjective Date of Service: 05/13/22 Interval History: Pt seen in follow up for osteomyelitis left foot Glucose levels remain uncontrolled. Resting comfortably in bed. No complaints.? Awaiting placement, PICC line in place Review of Systems General: No fevers, malaise, unintentional weight loss HEENT: No blurred vision, diplopia. Cardiovascular: No chest pain, palpitations, or leg edema Respiratory: No shortness of breath, wheezing, cough GI: No abdominal pain, nausea, vomiting, diarrhea, constipation, melena, hematochezia : No dysuria, hematuria Neuro: No headaches, weakness, paresthesias Skin: No rashes or lesions Physical Exam Vital Signs: Vital Signs: Last Vital Signs Temp 97.6 F 05/13/22 08:45 Pulse 61 05/13/22 08:45 Resp 18 05/13/22 08:45 BP 128/64 05/13/22 08:45 Pulse Ox 97 05/13/22 08:45 O2 Del Method 05/13/22 08:45 O2 Flow Rate 2 05/13/22 08:45 BMI result Body Mass Index 36.0 Constitutional - Awake and Alert, No apparent distress Eyes - PERRLA, EOMI Cardiovascular - S1S2, RRR, No edema Respiratory - Normal lung expansion, Normal respiratory effort, No respiratory distress, CTA bilaterally Gastrointestinal - NT / ND; +BS; No rebound or guarding Extremities - no calf tenderness bilaterally, no swelling Skin - Warm/Dry Neurological - Alert & oriented x3 Psychological - Appropriate affect Objective Data Active Medications Acetaminophen (Acetaminophen 325 Mg Tablet) 650 mg PO Q6H PRN PRN Reason: Pain, Mild (Pain Scale 1-3) Atorvastatin Calcium (Atorvastatin Calcium 40 Mg Tablet) 40 mg PO BEDTIME [facility] Last Admin: 05/12/22 19:21 Dose: 40 mg Documented By: ANDREW Clonazepam (Clonazepam 1 Mg Tablet) 1 mg PO BID PRN PRN Reason: Anxiety Last Admin: 05/13/22 09:42 Dose: 1 mg Documented By: REY Clonidine HCl (Clonidine Hcl 0.2 Mg Tablet) 0.2 mg PO TID [facility]; Protocol Last Admin: 05/13/22 08:41 Dose: 0.2 mg Documented By: REY Dextrose (Dextrose 50 % 25 Gm/50 Ml Syringe) 25 gm IVPUSH Q15M PRN; Protocol PRN Reason: per Hypoglycemia Standing Ord. Docusate Sodium (Docusate Sodium 100 Mg Capsule) 100 mg PO DAILY PRN PRN Reason: Constipation Enoxaparin Sodium (Enoxaparin Sodium 40 Mg/0.4 Ml Syringe) 40 mg SUBCUT Q24H [facility] Last Admin: 05/12/22 21:23 Dose: Not Given Documented By: ANDREW Non-Admin Reason: Patient Refused Furosemide (Furosemide 40 Mg Tablet) 40 mg PO BID@0800,1700 [facility]; Protocol Last Admin: 05/13/22 08:40 Dose: 40 mg Documented By: REY Gabapentin (Gabapentin 400 Mg Capsule) 800 mg PO TID [facility] Last Admin: 05/13/22 08:41 Dose: 800 mg Documented By: REY Glucose (Glucose Gel 15 Gm Gel..Gram.) 15 gm PO Q15M PRN; Protocol PRN Reason: per Hypoglycemia Standing Ord. Vancomycin HCl 1,250 mg/ (Sodium Chloride) 250 mls @ 166.667 mls/hr IV Q12H [facility] Last Infusion: 05/13/22 12:20 Dose: 166.67 mls/hr Documented By: REY Insulin Glargine (Insulin Glargine,Hum.Rec.Anlog 100 Unit/Ml 10 Ml Vial) 120 unit SUBCUT BEDTIME [facility] Last Admin: 05/12/22 20:43 Dose: 120 unit Documented By: ANDREW Insulin Human Lispro (Insulin Lispro 100 Unit/Ml 3 Ml Vial) 0 unit SUBCUT QIDACHS [facility]; Protocol Last Admin: 05/13/22 11:33 Dose: Not Given Documented By: REY Non-Admin Reason: No Insulin Coverage Insulin Human Lispro (Insulin Lispro 100 Unit/Ml 3 Ml Vial) 10 unit SUBCUT TIDWM [facility] Last Admin: 05/13/22 11:33 Dose: 10 unit Documented By: REY Levofloxacin (Levofloxacin 750 Mg Tablet) 750 mg PO Q24H [facility] Last Admin: 05/13/22 11:32 Dose: 750 mg Documented By: REY Methadone HCl (Methadone Hcl 20 Mg/2 Ml Oral.Conc) 85 mg PO DAILY [facility] Last Admin: 05/13/22 08:43 Dose: 85 mg Documented By: REY Ondansetron HCl (Ondansetron Hcl 4 Mg/2 Ml Vial) 4 mg IVPUSH Q8H PRN PRN Reason: Nausea and Vomiting Oxycodone HCl (Oxycodone Hcl Immed Release 5 Mg Tablet) 10 mg PO Q4H PRN PRN Reason: Pain, Severe (Pain Scale 7-10) Last Admin: 05/13/22 13:28 Dose: 10 mg Documented By: REY Pharmacy Consult (Consult Rx Perform Med Rec) 1 each MISCELLANE ONCE PRN PRN Reason: Consult order Pharmacy Consult (Consult Rx Perform Med Rec) 1 each MISCELLANE ONCE PRN PRN Reason: Consult order Quetiapine Fumarate (Quetiapine Fumarate 100 Mg Tablet) 100 mg PO BID [facility] Last Admin: 05/13/22 08:41 Dose: 100 mg Documented By: REY Sodium Chloride (0.9 % Sodium Chloride Flush 3 Ml Syringe) 3 ml IVFLUSH QSHIFT [facility] Last Admin: 05/13/22 08:56 Dose: Not Given Documented By: REY Non-Admin Reason: No Access Sodium Chloride (0.9 % Sodium Chloride Flush 10 Ml Syringe) 5 ml IVFLUSH TID [facility] Last Admin: 05/13/22 08:43 Dose: 5 ml Documented By: REY Labs CBC & Chem 7: 05/11/22 06:57 05/13/22 05:18 Labs: Laboratory Results - last 24 hr 05/12/22 05/12/22 05/13/22 16:15 19:57 05:18 Estim Creat Clear Calc 137.0 Estimated GFR > 60 POC Glucose 278 H 356 H* 05/13/22 05/13/22 07:41 11:10 Estim Creat Clear Calc Estimated GFR POC Glucose 243 H 152 H Assessment and Plan (1) Acute osteomyelitis: Status: Acute Plan 51-year-old male with history of diabetes type 2 insulin dependent, peripheral arterial disease status post right transmetatarsal amputation, chronic wounds bilateral, polysubstance abuse, hypertension, HLD, anxiety, chronic respiratory a proxy of following COVID-19 on 2 L oxygen 26/12 comes here for worsening of the wound on the top of left foot pain? Patient was just admitted and discharged on 03/21 for a right amputated metatarsal foot ulcer was given antibiotics patient is still taking doxycycline patient says was had a small wound on the top of the left foot when he was admitted which got worse in last 3 days it just opened up no fever no chills patient unable to follow up with wound clinic since discharge on 03/21.? Now with PICC line awaiting placement for long-term antibiotics #Acute osteomyelitis -PICC line in place without issues -ID recommending 6 w IV vanco (D15) and PO levaquin (D2) -Renal function baseline -Methadone and oxycodone for pain, increase gabapentin to 800mg TID -awaiting placement #Bilateral foot ulcers- chronic and present on admission secondary to poorly controlled DM and PAD -Patient to continue dressing changes per gen surgery -Right foot wounds clean and dry -Gen surg following. Debridement if needed. Recommending possible skin graft left medial foot wound #DM 2, insulin dependent with hyperglycemia -Increase insulin glargine 130 units nightly -Increase humalog to 10 units standing with meals and continue SSI -Diabetic diet, POC glucose -adjust as indicated #Hypertension -acceptable control on current therapies -resume lasix #Opiate use disorder -continue methadone #Chronic respiratory failure with hypoxia related to post-COVID dyspnea -Continue supplemental O2 to maintain oximetry 92%, on supplemental O2 at home Full code Lovenox Patient will require ongoing hospitalization for IV antibiotics to treat acute osteomyelitis,awaiting placement Quality Stroke Does the patient have a stroke diagnosis?: No VTE Prior VTE?: No VTE Risk Level:: Medical - moderate - high VTE Device Contraindication: Treatment Not Indicated VTE Drug Contraindication: N/A - Med Ordered
--- NOTE | 2022-05-13 15:27 | MHC.CM.PN ---
NO FACILITIES ARE OFFERING BEDS. CASE MANAGEMENT STILL FOLLOWING AND SEEKING BED OFFERS
[2022-05-13 16:00] VITALS: BP 132/70; PULSE 69; RESP 20; TEMP 36.6; O2SAT 98
[2022-05-13 16:12] LABS: Glucose, Whole Blood 238 mg/dL (60-115)
[2022-05-13 19:14] VITALS: BP 145/75; PULSE 69; RESP 19; TEMP 36.2; O2SAT 96
[2022-05-13 19:34] LABS: Vancomycin Random 10.8 mcg/mL (15-20)
[2022-05-13 19:58] LABS: Glucose, Whole Blood 244 mg/dL (60-115)
--- NOTE | 2022-05-13 20:04 | HE.PHANOTE ---
VANCOMYCIN DOSING ADJUSTMENT BASED OFF SCR OF 0.87 AND TROUGH OF 10.8 TODAY. DOSE INCREASED TO 1500 Q 12. WILL ORDER TROUGH TOMORROW 04/14 AT 1900 AGAIN DUE TO PATIENT PREVIOUSLY JUMPING UP IN VANCO LEVELS
[2022-05-13] MEDS: vancomycin HCL 1,500 MG in 0.9 % Sodium Chloride 500 ML 333.33 MG IV (20:16)
[2022-05-13] MEDS: Insulin Glargine,Hum.rec.anlog 100 UNIT/ML 10 ML VIAL 130 UNIT SUBCUT (20:21)
[2022-05-13] MEDS: Atorvastatin Calcium 40 MG TABLET PO (20:24)
--- NOTE | 2022-05-13 20:27 | PC.NURSE ---
patient refused Lovenox,risks explained to pt,encouraged activity
[2022-05-14] MEDS: oxyCODONE HCl Immed Release 5 MG TABLET 10 MG PO ×4 (02:23→20:52)
[2022-05-14 07:28] VITALS: BP 134/74; PULSE 61; RESP 18; TEMP 36.6; O2SAT 98
[2022-05-14 07:44] LABS: Glucose, Whole Blood 180 mg/dL (60-115)
[2022-05-14] MEDS: QUEtiapine Fumarate 100 MG TABLET PO ×2 (08:32→20:53)
[2022-05-14] MEDS: clonazePAM 1 MG TABLET PO ×2 (08:33→20:52)
[2022-05-14] MEDS: Gabapentin 400 MG CAPSULE 800 MG PO ×3 (08:33→20:52)
[2022-05-14] MEDS: Insulin Lispro 100 UNIT/ML 3 ML VIAL 10 UNIT SUBCUT ×3 (08:33→16:38)
[2022-05-14] MEDS: cloNIDine HCL 0.2 MG TABLET PO ×3 (08:33→20:52)
[2022-05-14] MEDS: Insulin Lispro 100 UNIT/ML 3 ML VIAL SUBCUT ×3 (08:33→20:51)
[2022-05-14 08:34] LABS: Creatinine Clr Calc Pharmacy 143.6; Estimated Glomerular Filt Rate > 60
[2022-05-14] MEDS: methADONE HCl 20 MG/2 ML ORAL.CONC 85 MG PO (08:34)
[2022-05-14] MEDS: 0.9 % Sodium Chloride Flush 10 ML SYRINGE 5 ML IVFLUSH ×3 (08:34→20:53)
--- NOTE | 2022-05-14 10:16 | HO.PM.IMPN ---
Subjective Subjective Date of Service: 05/14/22 Interval History: Pt seen in follow up for osteomyelitis left foot Glucose levels improving. Resting comfortably in bed. No complaints.? Awaiting placement, PICC line in place Review of Systems General: No fevers, malaise, unintentional weight loss HEENT: No blurred vision, diplopia. Cardiovascular: No chest pain, palpitations, or leg edema Respiratory: No shortness of breath, wheezing, cough GI: No abdominal pain, nausea, vomiting, diarrhea, constipation, melena, hematochezia : No dysuria, hematuria Neuro: No headaches Skin: No rashes Physical Exam Vital Signs: Vital Signs: Last Vital Signs Temp 97.8 F 05/14/22 07:28 Pulse 61 05/14/22 07:28 Resp 18 05/14/22 07:28 BP 134/74 05/14/22 07:28 Pulse Ox 98 05/14/22 07:28 O2 Del Method 05/14/22 07:28 O2 Flow Rate 2 05/14/22 07:28 BMI result Body Mass Index 36.0 Constitutional - Awake and Alert, No apparent distress Eyes - PERRLA, EOMI Cardiovascular - S1S2, RRR, No edema Respiratory - Normal lung expansion, Normal respiratory effort, No respiratory distress, CTA bilaterally Gastrointestinal - NT / ND; +BS; No rebound or guarding Extremities - no calf tenderness bilaterally, no swelling Skin - Warm/Dry Neurological - Alert & oriented x3 Psychological - Appropriate affect Objective Data Active Medications Acetaminophen (Acetaminophen 325 Mg Tablet) 650 mg PO Q6H PRN PRN Reason: Pain, Mild (Pain Scale 1-3) Atorvastatin Calcium (Atorvastatin Calcium 40 Mg Tablet) 40 mg PO BEDTIME [facility] Last Admin: 05/13/22 20:24 Dose: 40 mg Documented By: TORSTEN Clonazepam (Clonazepam 1 Mg Tablet) 1 mg PO BID PRN PRN Reason: Anxiety Last Admin: 05/14/22 08:33 Dose: 1 mg Documented By: ANYA Clonidine HCl (Clonidine Hcl 0.2 Mg Tablet) 0.2 mg PO TID [facility]; Protocol Last Admin: 05/14/22 08:33 Dose: 0.2 mg Documented By: ANYA Dextrose (Dextrose 50 % 25 Gm/50 Ml Syringe) 25 gm IVPUSH Q15M PRN; Protocol PRN Reason: per Hypoglycemia Standing Ord. Docusate Sodium (Docusate Sodium 100 Mg Capsule) 100 mg PO DAILY PRN PRN Reason: Constipation Enoxaparin Sodium (Enoxaparin Sodium 40 Mg/0.4 Ml Syringe) 40 mg SUBCUT Q24H [facility] Last Admin: 05/13/22 20:20 Dose: Not Given Documented By: TORSTEN Non-Admin Reason: Patient Refused Furosemide (Furosemide 40 Mg Tablet) 40 mg PO BID@0800,1700 [facility]; Protocol Last Admin: 05/14/22 08:41 Dose: Not Given Documented By: ANYA Non-Admin Reason: Patient Refused Gabapentin (Gabapentin 400 Mg Capsule) 800 mg PO TID [facility] Last Admin: 05/14/22 08:33 Dose: 800 mg Documented By: ANYA Glucose (Glucose Gel 15 Gm Gel..Gram.) 15 gm PO Q15M PRN; Protocol PRN Reason: per Hypoglycemia Standing Ord. Vancomycin HCl 1,500 mg/ (Sodium Chloride) 500 mls @ 333.333 mls/hr IV Q12H [facility] Last Admin: 05/14/22 08:32 Dose: 333.33 mls/hr Documented By: ANYA Insulin Glargine (Insulin Glargine,Hum.Rec.Anlog 100 Unit/Ml 10 Ml Vial) 130 unit SUBCUT BEDTIME [facility] Last Admin: 05/13/22 20:21 Dose: 1 unit Documented By: TORSTEN Insulin Human Lispro (Insulin Lispro 100 Unit/Ml 3 Ml Vial) 0 unit SUBCUT QIDACHS [facility]; Protocol Last Admin: 05/14/22 08:33 Dose: 2 unit Documented By: ANYA Insulin Human Lispro (Insulin Lispro 100 Unit/Ml 3 Ml Vial) 10 unit SUBCUT TIDWM [facility] Last Admin: 05/14/22 08:33 Dose: 10 unit Documented By: ANYA Levofloxacin (Levofloxacin 750 Mg Tablet) 750 mg PO Q24H [facility] Last Admin: 05/13/22 11:32 Dose: 750 mg Documented By: REY Methadone HCl (Methadone Hcl 20 Mg/2 Ml Oral.Conc) 85 mg PO DAILY [facility] Last Admin: 05/14/22 08:34 Dose: 85 mg Documented By: ANYA Ondansetron HCl (Ondansetron Hcl 4 Mg/2 Ml Vial) 4 mg IVPUSH Q8H PRN PRN Reason: Nausea and Vomiting Oxycodone HCl (Oxycodone Hcl Immed Release 5 Mg Tablet) 10 mg PO Q4H PRN PRN Reason: Pain, Severe (Pain Scale 7-10) Last Admin: 05/14/22 08:33 Dose: 10 mg Documented By: ANYA Pharmacy Consult (Consult Rx Perform Med Rec) 1 each MISCELLANE ONCE PRN PRN Reason: Consult order Pharmacy Consult (Consult Rx Perform Med Rec) 1 each MISCELLANE ONCE PRN PRN Reason: Consult order Quetiapine Fumarate (Quetiapine Fumarate 100 Mg Tablet) 100 mg PO BID [facility] Last Admin: 05/14/22 08:32 Dose: 100 mg Documented By: ANYA Sodium Chloride (0.9 % Sodium Chloride Flush 3 Ml Syringe) 3 ml IVFLUSH QSHIFT [facility] Last Admin: 05/14/22 07:48 Dose: Not Given Documented By: ANYA Non-Admin Reason: PICC Sodium Chloride (0.9 % Sodium Chloride Flush 10 Ml Syringe) 5 ml IVFLUSH TID [facility] Last Admin: 05/14/22 08:34 Dose: 5 ml Documented By: ANYA Labs CBC & Chem 7: 05/11/22 06:57 05/14/22 07:49 Labs: Laboratory Results - last 24 hr 05/13/22 05/13/22 05/13/22 11:10 15:48 18:42 Estim Creat Clear Calc Estimated GFR POC Glucose 152 H 238 H Random Vancomycin 10.8 L 05/13/22 05/14/22 05/14/22 19:52 07:31 07:49 Estim Creat Clear Calc 143.6 Estimated GFR > 60 POC Glucose 244 H 180 H Random Vancomycin Assessment and Plan (1) Acute osteomyelitis: Status: Acute Plan 51-year-old male with history of diabetes type 2 insulin dependent, peripheral arterial disease status post right transmetatarsal amputation, chronic wounds bilateral, polysubstance abuse, hypertension, HLD, anxiety, chronic respiratory a proxy of following COVID-19 on 2 L oxygen 26/12 comes here for worsening of the wound on the top of left foot pain? Patient was just admitted and discharged on 03/21 for a right amputated metatarsal foot ulcer was given antibiotics patient is still taking doxycycline patient says was had a small wound on the top of the left foot when he was admitted which got worse in last 3 days it just opened up no fever no chills patient unable to follow up with wound clinic since discharge on 03/21.? Now with PICC line awaiting placement for long-term antibiotics #Acute osteomyelitis -PICC line in place without issues -ID recommending 6 w IV vanco (D16) and PO levaquin (D3) -Renal function baseline -Methadone and oxycodone for pain, increase gabapentin to 800mg TID -awaiting placement #Bilateral foot ulcers- chronic and present on admission secondary to poorly controlled DM and PAD -Patient to continue dressing changes per gen surgery -Right foot wounds clean and dry -Gen surg following. Debridement if needed. 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 Quality Stroke Does the patient have a stroke diagnosis?: No VTE Prior VTE?: No VTE Risk Level:: Medical - moderate - high VTE Device Contraindication: Treatment Not Indicated VTE Drug Contraindication: N/A - Med Ordered
[2022-05-14 11:34] LABS: Glucose, Whole Blood 127 mg/dL (60-115)
[2022-05-14] MEDS: levoFLOXacin 750 MG TABLET PO (11:58)
[2022-05-14 15:48] VITALS: BP 138/71; PULSE 63; RESP 18; TEMP 36.8; O2SAT 98
[2022-05-14 16:30] LABS: Glucose, Whole Blood 267 mg/dL (60-115)
--- NOTE | 2022-05-14 17:09 | HE.PHANOTE ---
RE CROW PT MISSED DOSE. PUMP DID NOT RUN. RESCHEDULED TIME AND DOSE AND TROUGH ALLY
[2022-05-14] MEDS: vancomycin HCL 1,500 MG in 0.9 % Sodium Chloride 500 ML 333.33 MG IV (17:33)
[2022-05-14 19:37] VITALS: BP 142/73; PULSE 70; RESP 18; TEMP 37.1; O2SAT 97
[2022-05-14 20:18] LABS: Glucose, Whole Blood 215 mg/dL (60-115)
[2022-05-14] MEDS: Insulin Glargine,Hum.rec.anlog 100 UNIT/ML 10 ML VIAL 130 UNIT SUBCUT (20:49)
[2022-05-14] MEDS: Atorvastatin Calcium 40 MG TABLET PO (20:52)
[2022-05-14] MEDS: 0.9 % Sodium Chloride Flush 3 ML SYRINGE IVFLUSH (20:53)
[2022-05-15] MEDS: oxyCODONE HCl Immed Release 5 MG TABLET 10 MG PO ×5 (02:14→20:19)
[2022-05-15 03:09] VITALS: BP 146/80; PULSE 63; RESP 16; TEMP 36.8; O2SAT 97
[2022-05-15] MEDS: vancomycin HCL 1,500 MG in 0.9 % Sodium Chloride 500 ML 333.33 MG IV ×2 (06:36→20:18)
--- NOTE | 2022-05-15 07:16 | PC.NURSE ---
Patient found to have shut down the IV pump and stated it was because it was beeping. Did not call and wait for staff to silence and check administration. instructed not to touch buttons on machine, and that staff will not know if his antibiotic didnt infuse on time.
[2022-05-15 07:22] LABS: Creatinine Clr Calc Pharmacy 138.6; Estimated Glomerular Filt Rate > 60
[2022-05-15 07:30] VITALS: BP 167/69; PULSE 59; RESP 18; TEMP 36.5; O2SAT 99
[2022-05-15 07:44] LABS: Glucose, Whole Blood 200 mg/dL (60-115)
[2022-05-15] MEDS: Insulin Lispro 100 UNIT/ML 3 ML VIAL SUBCUT ×2 (09:03→20:19)
[2022-05-15] MEDS: Gabapentin 400 MG CAPSULE 800 MG PO ×3 (09:03→20:18)
[2022-05-15] MEDS: QUEtiapine Fumarate 100 MG TABLET PO ×2 (09:03→20:19)
[2022-05-15] MEDS: cloNIDine HCL 0.2 MG TABLET PO ×3 (09:03→20:19)
[2022-05-15] MEDS: clonazePAM 1 MG TABLET PO ×2 (09:03→20:19)
[2022-05-15] MEDS: methADONE HCl 20 MG/2 ML ORAL.CONC 85 MG PO (09:04)
[2022-05-15] MEDS: Insulin Lispro 100 UNIT/ML 3 ML VIAL 10 UNIT SUBCUT ×3 (09:05→16:46)
[2022-05-15] MEDS: 0.9 % Sodium Chloride Flush 10 ML SYRINGE 5 ML IVFLUSH ×3 (09:07→20:18)
--- NOTE | 2022-05-15 09:45 | HO.PM.IMPN ---
Subjective Subjective Date of Service: 05/15/22 Interval History: Pt seen in follow up for osteomyelitis left foot Glucose levels improving. Resting comfortably in bed. No complaints.? Awaiting placement, PICC line in place Review of Systems General: No fevers, malaise, unintentional weight loss HEENT: No blurred vision, diplopia. Cardiovascular: No chest pain, palpitations, or leg edema Respiratory: No shortness of breath, wheezing, cough GI: No abdominal pain, nausea, vomiting, diarrhea, constipation, melena, hematochezia : No dysuria, hematuria Neuro: No headaches Skin: No rashes Physical Exam Vital Signs: Vital Signs: Last Vital Signs Temp 97.7 F 05/15/22 07:30 Pulse 59 05/15/22 07:30 Resp 18 05/15/22 07:30 BP 167/69 H 05/15/22 07:30 Pulse Ox 99 05/15/22 07:30 O2 Del Method 05/15/22 07:30 O2 Flow Rate 1.5 05/15/22 07:30 BMI result Body Mass Index 36.0 Constitutional - Awake and Alert, No apparent distress Eyes - PERRLA, EOMI Cardiovascular - S1S2, RRR, No edema Respiratory - Normal lung expansion, Normal respiratory effort, No respiratory distress, CTA bilaterally Gastrointestinal - NT / ND; +BS; No rebound or guarding Extremities - no calf tenderness bilaterally, no swelling Skin - Warm/Dry Neurological - Alert & oriented x3 Psychological - Appropriate affect Objective Data Active Medications Acetaminophen (Acetaminophen 325 Mg Tablet) 650 mg PO Q6H PRN PRN Reason: Pain, Mild (Pain Scale 1-3) Atorvastatin Calcium (Atorvastatin Calcium 40 Mg Tablet) 40 mg PO BEDTIME [facility] Last Admin: 05/14/22 20:52 Dose: 40 mg Documented By: LELIA Clonazepam (Clonazepam 1 Mg Tablet) 1 mg PO BID PRN PRN Reason: Anxiety Last Admin: 05/15/22 09:03 Dose: 1 mg Documented By: ELOY Clonidine HCl (Clonidine Hcl 0.2 Mg Tablet) 0.2 mg PO TID [facility]; Protocol Last Admin: 05/15/22 09:03 Dose: 0.2 mg Documented By: ELOY Dextrose (Dextrose 50 % 25 Gm/50 Ml Syringe) 25 gm IVPUSH Q15M PRN; Protocol PRN Reason: per Hypoglycemia Standing Ord. Docusate Sodium (Docusate Sodium 100 Mg Capsule) 100 mg PO DAILY PRN PRN Reason: Constipation Enoxaparin Sodium (Enoxaparin Sodium 40 Mg/0.4 Ml Syringe) 40 mg SUBCUT Q24H [facility] Last Admin: 05/14/22 20:49 Dose: Not Given Documented By: LELIA Non-Admin Reason: Patient Refused Furosemide (Furosemide 40 Mg Tablet) 40 mg PO BID@0800,1700 [facility]; Protocol Last Admin: 05/15/22 09:07 Dose: Not Given Documented By: ELOY Non-Admin Reason: Patient Refused Gabapentin (Gabapentin 400 Mg Capsule) 800 mg PO TID [facility] Last Admin: 05/15/22 09:03 Dose: 800 mg Documented By: ELOY Glucose (Glucose Gel 15 Gm Gel..Gram.) 15 gm PO Q15M PRN; Protocol PRN Reason: per Hypoglycemia Standing Ord. Vancomycin HCl 1,500 mg/ (Sodium Chloride) 500 mls @ 333.333 mls/hr IV Q12H [facility] Last Infusion: 05/15/22 09:05 Dose: 0 mls/hr Documented By: ELOY Insulin Glargine (Insulin Glargine,Hum.Rec.Anlog 100 Unit/Ml 10 Ml Vial) 130 unit SUBCUT BEDTIME [facility] Last Admin: 05/14/22 20:49 Dose: 130 unit Documented By: LELIA Insulin Human Lispro (Insulin Lispro 100 Unit/Ml 3 Ml Vial) 0 unit SUBCUT QIDACHS [facility]; Protocol Last Admin: 05/15/22 09:03 Dose: 2 unit Documented By: ELOY Insulin Human Lispro (Insulin Lispro 100 Unit/Ml 3 Ml Vial) 10 unit SUBCUT TIDWM [facility] Last Admin: 05/15/22 09:05 Dose: 10 unit Documented By: ELOY Levofloxacin (Levofloxacin 750 Mg Tablet) 750 mg PO Q24H [facility] Last Admin: 05/14/22 11:58 Dose: 750 mg Documented By: ANYA Methadone HCl (Methadone Hcl 20 Mg/2 Ml Oral.Conc) 85 mg PO DAILY [facility] Last Admin: 05/15/22 09:04 Dose: 85 mg Documented By: ELOY Ondansetron HCl (Ondansetron Hcl 4 Mg/2 Ml Vial) 4 mg IVPUSH Q8H PRN PRN Reason: Nausea and Vomiting Oxycodone HCl (Oxycodone Hcl Immed Release 5 Mg Tablet) 10 mg PO Q4H PRN PRN Reason: Pain, Severe (Pain Scale 7-10) Last Admin: 05/15/22 06:33 Dose: 10 mg Documented By: OUMAR Pharmacy Consult (Consult Rx Perform Med Rec) 1 each MISCELLANE ONCE PRN PRN Reason: Consult order Pharmacy Consult (Consult Rx Perform Med Rec) 1 each MISCELLANE ONCE PRN PRN Reason: Consult order Quetiapine Fumarate (Quetiapine Fumarate 100 Mg Tablet) 100 mg PO BID [facility] Last Admin: 05/15/22 09:03 Dose: 100 mg Documented By: ELOY Sodium Chloride (0.9 % Sodium Chloride Flush 3 Ml Syringe) 3 ml IVFLUSH QSHIFT [facility] Last Admin: 05/15/22 09:06 Dose: Not Given Documented By: ELOY Non-Admin Reason: No Access Sodium Chloride (0.9 % Sodium Chloride Flush 10 Ml Syringe) 5 ml IVFLUSH TID [facility] Last Admin: 05/15/22 09:07 Dose: 5 ml Documented By: ELOY Labs CBC & Chem 7: 05/11/22 06:57 05/15/22 06:19 Labs: Laboratory Results - last 24 hr 05/14/22 05/14/22 05/14/22 11:26 16:22 20:06 Estim Creat Clear Calc Estimated GFR POC Glucose 127 H 267 H 215 H 05/15/22 05/15/22 06:19 07:29 Estim Creat Clear Calc 138.6 Estimated GFR > 60 POC Glucose 200 H Assessment and Plan (1) Acute osteomyelitis: Status: Acute Plan 51-year-old male with history of diabetes type 2 insulin dependent, peripheral arterial disease status post right transmetatarsal amputation, chronic wounds bilateral, polysubstance abuse, hypertension, HLD, anxiety, chronic respiratory a proxy of following COVID-19 on 2 L oxygen 26/12 comes here for worsening of the wound on the top of left foot pain? Patient was just admitted and discharged on 03/21 for a right amputated metatarsal foot ulcer was given antibiotics patient is still taking doxycycline patient says was had a small wound on the top of the left foot when he was admitted which got worse in last 3 days it just opened up no fever no chills patient unable to follow up with wound clinic since discharge on 03/21.? Now with PICC line awaiting placement for long-term antibiotics #Acute osteomyelitis -PICC line in place without issues -ID recommending 6 w IV vanco (D17) and PO levaquin (D4) -Renal function baseline -Methadone and oxycodone for pain, gabapentin 800mg TID -awaiting placement #Bilateral foot ulcers- chronic and present on admission secondary to poorly controlled DM and PAD -Patient to continue dressing changes per gen surgery -Right foot wounds clean and dry -Gen surg following. Debridement if needed. 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 Quality Stroke Does the patient have a stroke diagnosis?: No VTE Prior VTE?: No VTE Risk Level:: Medical - moderate - high VTE Device Contraindication: Treatment Not Indicated VTE Drug Contraindication: N/A - Med Ordered
[2022-05-15] MEDS: levoFLOXacin 750 MG TABLET PO (11:07)
[2022-05-15 11:25] LABS: Glucose, Whole Blood 106 mg/dL (60-115)
[2022-05-15 15:12] VITALS: BP 161/88; PULSE 66; RESP 18; TEMP 36.5; O2SAT 99
[2022-05-15 15:37] LABS: Glucose, Whole Blood 132 mg/dL (60-115)
--- NOTE | 2022-05-15 17:01 | HE.PHANOTE ---
Addendum entered by Angeli Ramirez [facility] 05/15/22 20:04: YAKOV MARIA Discussed with Di MATTA again. Reports she spoke to patient and was agreeable as of 1705. Forwarded message to AUNG mason to call and ensure lab was drawn and that we were changing the timing of the dose to 1900. Confirmation from marlon documented @ 171. Got a call from AUNG mason @ 1952 asking if we should hang vanco. RN unclear if level was drawn. Discussed with her the contents of our tiger text message and her confirmation to get the lab drawn earlier. Apparently there was a misunderstanding and she thought the PA? or someone else already liv the lab?. Confirms she did not contact the lab. Now, three hours later, patient is not agreeable, so will hang dose anyway. Scheduled a trough with AM labs. Freeman Original Note: YAKOV MARIA I reached out to Di MATTA regarding this patient. Yesterday he turned off his pump and subsequently missed a vancomycin dose. He then tried to do the same thing this morning. Now his postponed vancomycin level is delayed again as patient is berating and cursing out the phlebotomy and RN. His actions have led to a 21 hour gap between doses and missing information to adjust his vancomycin. This is particularly concerning since the patient has already dose dumped once (resulting in a trough of 23.4) and we are having difficulty keeping the patient within goal AUC. Di will reach out to Dr Menard regarding dapto. In the interim, we will try and get the levels with morning blood draw. Schedule has been changed to reflect .that Freeman
[2022-05-15 19:20] VITALS: BP 145/77; PULSE 70; RESP 18; TEMP 36.3; O2SAT 95
[2022-05-15 19:40] LABS: Glucose, Whole Blood 280 mg/dL (60-115)
--- NOTE | 2022-05-15 20:01 | MHC.PIE ---
p; pt refused vanco trough draw from lab multiple times, yelling at labs with profanity. i; dr stephens notified; give next dose vanco e; will cont to monitor
[2022-05-15] MEDS: Atorvastatin Calcium 40 MG TABLET PO (20:19)
[2022-05-15] MEDS: Insulin Glargine,Hum.rec.anlog 100 UNIT/ML 10 ML VIAL 130 UNIT SUBCUT (20:20)
[2022-05-16] MEDS: oxyCODONE HCl Immed Release 5 MG TABLET 10 MG PO ×6 (01:33→22:42)
[2022-05-16 03:40] VITALS: BP 162/74; PULSE 61; RESP 16; TEMP 36.6; O2SAT 96
[2022-05-16 06:38] LABS: Estimated Glomerular Filt Rate > 60
[2022-05-16 06:50] LABS: Vancomycin Random 15.7 mcg/mL (15-20)
[2022-05-16 07:54] VITALS: BP 170/81; PULSE 67; RESP 20; TEMP 36.2; O2SAT 97
--- NOTE | 2022-05-16 08:00 | HE.PHANOTE ---
Vancomycin Dosing Addendum Patient Scr is up from 0.83 to 0.91. Patient is on 1500 mg Q12H, will continue with this dosing. Patient has been stopping his own infusion recently per other notes. Put in a random trough for later tonight, 05/16 @1700, dose should be due at @1900. Predicted AUC 480 mg/L/hr
[2022-05-16] MEDS: Insulin Lispro 100 UNIT/ML 3 ML VIAL SUBCUT ×4 (08:29→21:15)
[2022-05-16] MEDS: Insulin Lispro 100 UNIT/ML 3 ML VIAL 10 UNIT SUBCUT ×3 (08:29→16:53)
[2022-05-16] MEDS: cloNIDine HCL 0.2 MG TABLET PO ×3 (08:31→21:11)
[2022-05-16] MEDS: Gabapentin 400 MG CAPSULE 800 MG PO ×3 (08:31→21:11)
[2022-05-16] MEDS: clonazePAM 1 MG TABLET PO ×2 (08:31→22:43)
[2022-05-16 08:32] LABS: Glucose, Whole Blood 259 mg/dL (60-115)
[2022-05-16] MEDS: methADONE HCl 20 MG/2 ML ORAL.CONC 85 MG PO (08:32)
[2022-05-16] MEDS: 0.9 % Sodium Chloride Flush 3 ML SYRINGE IVFLUSH ×2 (08:32→08:40)
[2022-05-16] MEDS: QUEtiapine Fumarate 100 MG TABLET PO ×2 (08:32→21:11)
[2022-05-16] MEDS: vancomycin HCL 1,500 MG in 0.9 % Sodium Chloride 500 ML 333 MG IV ×2 (08:34→21:14)
--- NOTE | 2022-05-16 09:24 | P.PNIM_ITS ---
Subjective Subjective Date of Service: 05/16/22 Interval History: Pt seen in follow up for osteomyelitis left foot Glucose levels improving. Resting comfortably in bed. Reports muscle spasms in legs. Asking for soma.? Awaiting placement, PICC line in place Review of Systems General: No fevers, malaise, unintentional weight loss HEENT: No blurred vision, diplopia. Cardiovascular: No chest pain, palpitations, or leg edema Respiratory: No shortness of breath, wheezing, cough GI: No abdominal pain, nausea, vomiting, diarrhea, constipation, melena, hematochezia : No dysuria, hematuria Neuro: No headaches Skin: No rashes Physical Exam Vital Signs: Vital Signs: Last Vital Signs Temp 97.2 F 05/16/22 07:54 Pulse 67 05/16/22 07:54 Resp 20 05/16/22 07:54 BP 170/81 H 05/16/22 07:54 Pulse Ox 97 05/16/22 07:54 O2 Del Method 05/16/22 07:54 O2 Flow Rate 1.5 05/16/22 07:54 BMI result Body Mass Index 36.0 Constitutional - Awake and Alert, No apparent distress Eyes - PERRLA, EOMI Cardiovascular - S1S2, RRR, No edema Respiratory - Normal lung expansion, Normal respiratory effort, No respiratory distress, CTA bilaterally Gastrointestinal - NT / ND; +BS; No rebound or guarding Extremities - no calf tenderness bilaterally, no swelling Skin - Warm/Dry Neurological - Alert & oriented x3 Psychological - Appropriate affect Objective Data Active Medications Acetaminophen (Acetaminophen 325 Mg Tablet) 650 mg PO Q6H PRN PRN Reason: Pain, Mild (Pain Scale 1-3) Atorvastatin Calcium (Atorvastatin Calcium 40 Mg Tablet) 40 mg PO BEDTIME [facility] Last Admin: 05/15/22 20:19 Dose: 40 mg Documented By: SUPRIYA Clonazepam (Clonazepam 1 Mg Tablet) 1 mg PO BID PRN PRN Reason: Anxiety Last Admin: 05/16/22 08:31 Dose: 1 mg Documented By: MARCO Clonidine HCl (Clonidine Hcl 0.2 Mg Tablet) 0.2 mg PO TID [facility]; Protocol Last Admin: 05/16/22 08:31 Dose: 0.2 mg Documented By: MARCO Dextrose (Dextrose 50 % 25 Gm/50 Ml Syringe) 25 gm IVPUSH Q15M PRN; Protocol PRN Reason: per Hypoglycemia Standing Ord. Docusate Sodium (Docusate Sodium 100 Mg Capsule) 100 mg PO DAILY PRN PRN Reason: Constipation Enoxaparin Sodium (Enoxaparin Sodium 40 Mg/0.4 Ml Syringe) 40 mg SUBCUT Q24H [facility] Last Admin: 05/15/22 20:23 Dose: Not Given Documented By: SUPRIYA Non-Admin Reason: Patient Refused Furosemide (Furosemide 40 Mg Tablet) 40 mg PO BID@0800,1700 [facility]; Protocol Last Admin: 05/16/22 08:39 Dose: Not Given Documented By: MARCO Non-Admin Reason: Patient Refused Gabapentin (Gabapentin 400 Mg Capsule) 800 mg PO TID [facility] Last Admin: 05/16/22 08:31 Dose: 800 mg Documented By: MARCO Glucose (Glucose Gel 15 Gm Gel..Gram.) 15 gm PO Q15M PRN; Protocol PRN Reason: per Hypoglycemia Standing Ord. Vancomycin HCl 1,500 mg/ (Sodium Chloride) 500 mls @ 333.333 mls/hr IV Q12H [facility] Last Admin: 05/16/22 08:34 Dose: 333 mls/hr Documented By: MARCO Insulin Glargine (Insulin Glargine,Hum.Rec.Anlog 100 Unit/Ml 10 Ml Vial) 130 unit SUBCUT BEDTIME [facility] Last Admin: 05/15/22 20:20 Dose: 130 unit Documented By: SUPRIYA Insulin Human Lispro (Insulin Lispro 100 Unit/Ml 3 Ml Vial) 0 unit SUBCUT QIDACHS [facility]; Protocol Last Admin: 05/16/22 08:29 Dose: 6 unit Documented By: MARCO Insulin Human Lispro (Insulin Lispro 100 Unit/Ml 3 Ml Vial) 10 unit SUBCUT TIDWM [facility] Last Admin: 05/16/22 08:29 Dose: 10 unit Documented By: MARCO Levofloxacin (Levofloxacin 750 Mg Tablet) 750 mg PO Q24H [facility] Last Admin: 05/15/22 11:07 Dose: 750 mg Documented By: ELOY Methadone HCl (Methadone Hcl 20 Mg/2 Ml Oral.Conc) 85 mg PO DAILY [facility] Last Admin: 05/16/22 08:32 Dose: 85 mg Documented By: MARCO Ondansetron HCl (Ondansetron Hcl 4 Mg/2 Ml Vial) 4 mg IVPUSH Q8H PRN PRN Reason: Nausea and Vomiting Oxycodone HCl (Oxycodone Hcl Immed Release 5 Mg Tablet) 10 mg PO Q4H PRN PRN Reason: Pain, Severe (Pain Scale 7-10) Last Admin: 05/16/22 05:16 Dose: 10 mg Documented By: SUPRIYA Pharmacy Consult (Consult Rx Perform Med Rec) 1 each MISCELLANE ONCE PRN PRN Reason: Consult order Pharmacy Consult (Consult Rx Perform Med Rec) 1 each MISCELLANE ONCE PRN PRN Reason: Consult order Quetiapine Fumarate (Quetiapine Fumarate 100 Mg Tablet) 100 mg PO BID [facility] Last Admin: 05/16/22 08:32 Dose: 100 mg Documented By: MARCO Sodium Chloride (0.9 % Sodium Chloride Flush 3 Ml Syringe) 3 ml IVFLUSH QSHIFT [facility] Last Admin: 05/16/22 08:40 Dose: 3 ml Documented By: MARCO Sodium Chloride (0.9 % Sodium Chloride Flush 10 Ml Syringe) 5 ml IVFLUSH TID [facility] Last Admin: 05/16/22 08:41 Dose: Not Given Documented By: MARCO Non-Admin Reason: IV Running Labs CBC & Chem 7: 05/11/22 06:57 05/16/22 05:37 Labs: Laboratory Results - last 24 hr 05/15/22 05/15/22 05/15/22 11:15 15:15 19:23 Estim Creat Clear Calc Estimated GFR POC Glucose 106 132 H 280 H Random Vancomycin 05/16/22 05/16/22 05/16/22 05:37 05:37 07:53 Estim Creat Clear Calc 131.0 Estimated GFR > 60 POC Glucose 259 H Random Vancomycin 15.7 Assessment and Plan (1) Acute osteomyelitis: Status: Acute Plan 51-year-old male with history of diabetes type 2 insulin dependent, peripheral arterial disease status post right transmetatarsal amputation, chronic wounds bilateral, polysubstance abuse, hypertension, HLD, anxiety, chronic respiratory a proxy of following COVID-19 on 2 L oxygen 26/12 comes here for worsening of the wound on the top of left foot pain? Patient was just admitted and discharged on 03/21 for a right amputated metatarsal foot ulcer was given antibiotics patient is still taking doxycycline patient says was had a small wound on the top of the left foot when he was admitted which got worse in last 3 days it just opened up no fever no chills patient unable to follow up with wound clinic since discharge on 03/21.? Now with PICC line awaiting placement for long-term antibiotics #Acute osteomyelitis -PICC line in place without issues -ID recommending 6 w IV vanco (D18) and PO levaquin (D5) -Renal function baseline -Methadone and oxycodone for pain, gabapentin 800mg TID -awaiting placement #Bilateral foot ulcers- chronic and present on admission secondary to poorly controlled DM and PAD -Patient to continue dressing changes per gen surgery -Right foot wounds clean and dry -Gen surg following. Debridement if needed. 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 Offered tizanidine, pt declined Full code Lovenox Patient will require ongoing hospitalization for IV antibiotics to treat acute osteomyelitis, awaiting placement Time Spent With Patient Time: Total time managing care of this patient today ____ minutes. Quality Stroke Does the patient have a stroke diagnosis?: No VTE Prior VTE?: No VTE Risk Level:: Medical - moderate - high VTE Device Contraindication: Treatment Not Indicated VTE Drug Contraindication: N/A - Med Ordered
[2022-05-16] MEDS: levoFLOXacin 750 MG TABLET PO (10:29)
[2022-05-16 11:22] LABS: Glucose, Whole Blood 213 mg/dL (60-115)
[2022-05-16] MEDS: 0.9 % Sodium Chloride Flush 10 ML SYRINGE 5 ML IVFLUSH ×2 (14:23→21:15)
[2022-05-16 15:32] VITALS: BP 160/83; PULSE 64; RESP 19; TEMP 36.5; O2SAT 98
[2022-05-16 16:32] LABS: Glucose, Whole Blood 194 mg/dL (60-115)
[2022-05-16 18:26] LABS: Vancomycin Random 15.3 mcg/mL (15-20)
--- NOTE | 2022-05-16 19:06 | HE.PHANOTE ---
vanco level 15.8. ok to continue same dose. auc expected of 479.
[2022-05-16 19:37] VITALS: BP 184/97; PULSE 61; RESP 19; TEMP 36.5; O2SAT 98
[2022-05-16 20:14] LABS: Glucose, Whole Blood 215 mg/dL (60-115)
[2022-05-16] MEDS: Atorvastatin Calcium 40 MG TABLET PO (21:11)
[2022-05-16] MEDS: Insulin Glargine,Hum.rec.anlog 100 UNIT/ML 10 ML VIAL 130 UNIT SUBCUT (21:15)
[2022-05-17] MEDS: oxyCODONE HCl Immed Release 5 MG TABLET 10 MG PO ×5 (02:29→20:19)
[2022-05-17 04:00] VITALS: BP 164/86; PULSE 68; RESP 18; TEMP 36.3; O2SAT 94
[2022-05-17] MEDS: vancomycin HCL 1,500 MG in 0.9 % Sodium Chloride 500 ML 333.33 MG IV ×2 (06:19→18:24)
[2022-05-17 06:31] LABS: Creatinine Clr Calc Pharmacy 135.4; Estimated Glomerular Filt Rate > 60
[2022-05-17 07:31] VITALS: BP 187/91; PULSE 62; RESP 18; TEMP 36.7; O2SAT 98
[2022-05-17 07:37] LABS: Glucose, Whole Blood 231 mg/dL (60-115)
[2022-05-17] MEDS: Insulin Lispro 100 UNIT/ML 3 ML VIAL SUBCUT ×3 (08:20→20:17)
[2022-05-17] MEDS: Insulin Lispro 100 UNIT/ML 3 ML VIAL 10 UNIT SUBCUT ×3 (08:20→15:35)
[2022-05-17] MEDS: cloNIDine HCL 0.2 MG TABLET PO ×3 (08:21→20:19)
[2022-05-17] MEDS: methADONE HCl 20 MG/2 ML ORAL.CONC 85 MG PO (08:21)
[2022-05-17] MEDS: amLODIPine Besylate 5 MG TABLET PO (08:21)
[2022-05-17] MEDS: Gabapentin 400 MG CAPSULE 800 MG PO ×3 (08:21→20:19)
[2022-05-17] MEDS: QUEtiapine Fumarate 100 MG TABLET PO ×2 (08:21→20:19)
[2022-05-17] MEDS: clonazePAM 1 MG TABLET PO ×2 (08:21→20:19)
--- NOTE | 2022-05-17 09:23 | HO.PM.IMPN ---
Subjective Subjective Date of Service: 05/17/22 Interval History: Pt seen in follow up for osteomyelitis left foot Interval history:Has been refusing lasix due to urinary frequency. Hypertensive. No headaches, blurred vision, CP. Awaiting placement, PICC line in place Review of Systems General: No fevers, malaise, unintentional weight loss HEENT: No blurred vision, diplopia. Cardiovascular: No chest pain, palpitations, or leg edema Respiratory: No shortness of breath, wheezing, cough GI: No abdominal pain, nausea, vomiting, diarrhea : No dysuria, hematuria Neuro: No headaches Skin: No rashes Physical Exam Vital Signs: Vital Signs: Last Vital Signs Temp 98.0 F 05/17/22 07:31 Pulse 62 05/17/22 07:31 Resp 18 05/17/22 07:31 BP 187/91 H 05/17/22 07:31 Pulse Ox 98 05/17/22 07:31 O2 Del Method 05/17/22 07:31 O2 Flow Rate 1.5 05/16/22 07:54 BMI result Body Mass Index 36.0 Constitutional - Awake and Alert, No apparent distress Eyes - PERRLA, EOMI Cardiovascular - S1S2, RRR, No edema Respiratory - Normal lung expansion, Normal respiratory effort, No respiratory distress, CTA bilaterally Extremities - no calf tenderness bilaterally, no swelling Skin - Warm/Dry Neurological - Alert & oriented x3 Psychological - Appropriate affect Objective Data Active Medications Acetaminophen (Acetaminophen 325 Mg Tablet) 650 mg PO Q6H PRN PRN Reason: Pain, Mild (Pain Scale 1-3) Amlodipine Besylate (Amlodipine Besylate 5 Mg Tablet) 5 mg PO DAILY RICHARD; Protocol Last Admin: 05/17/22 08:21 Dose: 5 mg Documented By: MARCO Atorvastatin Calcium (Atorvastatin Calcium 40 Mg Tablet) 40 mg PO BEDTIME RICHARD Last Admin: 05/16/22 21:11 Dose: 40 mg Documented By: SUPRIYA Clonazepam (Clonazepam 1 Mg Tablet) 1 mg PO BID PRN PRN Reason: Anxiety Last Admin: 05/17/22 08:21 Dose: 1 mg Documented By: MARCO Clonidine HCl (Clonidine Hcl 0.2 Mg Tablet) 0.2 mg PO TID RICHARD; Protocol Last Admin: 05/17/22 08:21 Dose: 0.2 mg Documented By: MARCO Dextrose (Dextrose 50 % 25 Gm/50 Ml Syringe) 25 gm IVPUSH Q15M PRN; Protocol PRN Reason: per Hypoglycemia Standing Ord. Docusate Sodium (Docusate Sodium 100 Mg Capsule) 100 mg PO DAILY PRN PRN Reason: Constipation Enoxaparin Sodium (Enoxaparin Sodium 40 Mg/0.4 Ml Syringe) 40 mg SUBCUT Q24H [facility] Last Admin: 05/16/22 21:16 Dose: Not Given Documented By: SUPRIYA Non-Admin Reason: Patient Refused Furosemide (Furosemide 40 Mg Tablet) 40 mg PO BID@0800,1700 [facility]; Protocol Last Admin: 05/17/22 08:41 Dose: Not Given Documented By: MARCO Non-Admin Reason: Patient Refused Gabapentin (Gabapentin 400 Mg Capsule) 800 mg PO TID [facility] Last Admin: 05/17/22 08:21 Dose: 800 mg Documented By: MARCO Glucose (Glucose Gel 15 Gm Gel..Gram.) 15 gm PO Q15M PRN; Protocol PRN Reason: per Hypoglycemia Standing Ord. Vancomycin HCl 1,500 mg/ (Sodium Chloride) 500 mls @ 333.333 mls/hr IV Q12H [facility] Last Infusion: 05/17/22 08:41 Dose: 0 mls/hr Documented By: MARCO Insulin Glargine (Insulin Glargine,Hum.Rec.Anlog 100 Unit/Ml 10 Ml Vial) 130 unit SUBCUT BEDTIME [facility] Last Admin: 05/16/22 21:15 Dose: 130 unit Documented By: SUPRIYA Insulin Human Lispro (Insulin Lispro 100 Unit/Ml 3 Ml Vial) 0 unit SUBCUT QIDACHS [facility]; Protocol Last Admin: 05/17/22 08:20 Dose: 4 unit Documented By: MARCO Insulin Human Lispro (Insulin Lispro 100 Unit/Ml 3 Ml Vial) 10 unit SUBCUT TIDWM [facility] Last Admin: 05/17/22 08:20 Dose: 10 unit Documented By: MARCO Levofloxacin (Levofloxacin 750 Mg Tablet) 750 mg PO Q24H [facility] Last Admin: 05/16/22 10:29 Dose: 750 mg Documented By: MARCO Methadone HCl (Methadone Hcl 20 Mg/2 Ml Oral.Conc) 85 mg PO DAILY [facility] Last Admin: 05/17/22 08:21 Dose: 85 mg Documented By: MARCO Ondansetron HCl (Ondansetron Hcl 4 Mg/2 Ml Vial) 4 mg IVPUSH Q8H PRN PRN Reason: Nausea and Vomiting Oxycodone HCl (Oxycodone Hcl Immed Release 5 Mg Tablet) 10 mg PO Q4H PRN PRN Reason: Pain, Severe (Pain Scale 7-10) Last Admin: 05/17/22 06:18 Dose: 10 mg Documented By: SUPRIYA Pharmacy Consult (Consult Rx Perform Med Rec) 1 each MISCELLANE ONCE PRN PRN Reason: Consult order Pharmacy Consult (Consult Rx Perform Med Rec) 1 each MISCELLANE ONCE PRN PRN Reason: Consult order Quetiapine Fumarate (Quetiapine Fumarate 100 Mg Tablet) 100 mg PO BID [facility] Last Admin: 05/17/22 08:21 Dose: 100 mg Documented By: MARCO Sodium Chloride (0.9 % Sodium Chloride Flush 3 Ml Syringe) 3 ml IVFLUSH QSHIFT [facility] Last Admin: 05/17/22 08:41 Dose: Not Given Documented By: MARCO Non-Admin Reason: Patient Refused Sodium Chloride (0.9 % Sodium Chloride Flush 10 Ml Syringe) 5 ml IVFLUSH TID [facility] Last Admin: 05/17/22 09:22 Dose: Not Given Documented By: MARCO Non-Admin Reason: IV Running Labs CBC & Chem 7: 05/11/22 06:57 05/17/22 05:17 Labs: Laboratory Results - last 24 hr 05/16/22 05/16/22 05/16/22 11:08 16:26 17:36 Estim Creat Clear Calc Estimated GFR POC Glucose 213 H 194 H Random Vancomycin 15.3 05/16/22 05/17/22 05/17/22 20:10 05:17 07:30 Estim Creat Clear Calc 135.4 Estimated GFR > 60 POC Glucose 215 H 231 H Random Vancomycin Assessment and Plan (1) Acute osteomyelitis: Status: Acute Plan 51-year-old male with history of diabetes type 2 insulin dependent, peripheral arterial disease status post right transmetatarsal amputation, chronic wounds bilateral, polysubstance abuse, hypertension, HLD, anxiety, chronic respiratory a proxy of following COVID-19 on 2 L oxygen / comes here for worsening of the wound on the top of left foot pain? Patient was just admitted and discharged on 03/21 for a right amputated metatarsal foot ulcer was given antibiotics patient is still taking doxycycline patient says was had a small wound on the top of the left foot when he was admitted which got worse in last 3 days it just opened up no fever no chills patient unable to follow up with wound clinic since discharge on 03/21.? Now with PICC line awaiting placement for long-term antibiotics #Acute osteomyelitis -PICC line in place without issues -ID recommending 6 w IV vanco (D19) and PO levaquin (D6) -Renal function baseline -Methadone and oxycodone for pain, gabapentin 800mg TID -awaiting placement #Bilateral foot ulcers- chronic and present on admission secondary to poorly controlled DM and PAD -Patient to continue dressing changes per gen surgery -Right foot wounds clean and dry -Gen surg following. Debridement if needed. Recommending possible skin graft left medial foot wound #DM 2, insulin dependent with hyperglycemia- glucose control improving -Continue insulin glargine 130 units nightly -Continue humalog to 10 units standing with meals and continue SSI -Diabetic diet, POC glucose -adjust as indicated #Hypertension -BPs high -Patient refusing lasix. No evidence fluid overload. No history heart failure -Add amlodipine 5mg. 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 Offered tizanidine, pt declined Full code Lovenox Patient will require ongoing hospitalization for IV antibiotics to treat acute osteomyelitis, awaiting placement Time Spent With Patient Time: Total time managing care of this patient today 20 minutes. Quality Stroke Does the patient have a stroke diagnosis?: No VTE Prior VTE?: No VTE Risk Level:: Medical - moderate - high VTE Device Contraindication: Treatment Not Indicated VTE Drug Contraindication: N/A - Med Ordered
[2022-05-17 11:24] LABS: Glucose, Whole Blood 141 mg/dL (60-115)
[2022-05-17] MEDS: levoFLOXacin 750 MG TABLET PO (11:51)
[2022-05-17 15:37] LABS: Glucose, Whole Blood 179 mg/dL (60-115)
[2022-05-17 16:00] VITALS: BP 117/60; PULSE 62; RESP 19; TEMP 36.9; O2SAT 96
[2022-05-17 19:38] LABS: Glucose, Whole Blood 290 mg/dL (60-115)
[2022-05-17 20:00] VITALS: BP 149/86; PULSE 68; RESP 17; TEMP 36.7; O2SAT 93
[2022-05-17] MEDS: Insulin Glargine,Hum.rec.anlog 100 UNIT/ML 10 ML VIAL 130 UNIT SUBCUT (20:18)
[2022-05-17] MEDS: 0.9 % Sodium Chloride Flush 10 ML SYRINGE 5 ML IVFLUSH (20:19)
[2022-05-17] MEDS: Atorvastatin Calcium 40 MG TABLET PO (20:19)
--- NOTE | 2022-05-18 | ECG_ITS ---
Test Reason : CHECK QT Blood Pressure : / mmHG Vent. Rate : 071 BPM Atrial Rate : 071 BPM P-R Int : 196 ms QRS Dur : 074 ms QT Int : 416 ms P-R-T Axes : 035 -09 005 degrees QTc Int : 452 ms Normal sinus rhythm Minimal voltage criteria for LVH, may be normal variant ( R in aVL ) Inferior infarct , age undetermined Abnormal ECG When compared with ECG of 02-MAY-2022 15:49, No significant change was found Referred By: Espinoza Pa Electronically Signed By:ARPIT BROWN
[2022-05-18] MEDS: oxyCODONE HCl Immed Release 5 MG TABLET 10 MG PO ×4 (00:47→12:06)
[2022-05-18 04:00] VITALS: BP 163/84; PULSE 60; RESP 16; TEMP 36.4; O2SAT 96
[2022-05-18 06:47] LABS: Vancomycin Trough 20.8 mcg/mL (10.0-20.0)
[2022-05-18 06:58] LABS: Creatinine Clr Calc Pharmacy 138.6; Estimated Glomerular Filt Rate > 60
--- NOTE | 2022-05-18 07:08 | HE.PHANOTE ---
VANCOMYCIN DOSING ADJUSTMENT BASED ON SCR OF 0.86 AND TROUGH OF 20.8 DOSE DECREASED TO [id number]. TROUGH ORDERED FOR 0600 05/19 TO CHECK LEVELS PATIENT HAS BEEN LOW ON 1250 PREVIOUSLY. PREDICTED AUC OF 418 AND TROUGH OF 14.4
[2022-05-18 07:21] VITALS: BP 158/77; PULSE 66; RESP 18; TEMP 37.5; O2SAT 95
[2022-05-18 07:33] LABS: Glucose, Whole Blood 289 mg/dL (60-115)
[2022-05-18] MEDS: clonazePAM 1 MG TABLET PO (08:04)
[2022-05-18] MEDS: Gabapentin 400 MG CAPSULE 800 MG PO ×2 (08:04→14:02)
[2022-05-18] MEDS: QUEtiapine Fumarate 100 MG TABLET PO (08:04)
[2022-05-18] MEDS: amLODIPine Besylate 5 MG TABLET PO (08:05)
[2022-05-18] MEDS: Insulin Lispro 100 UNIT/ML 3 ML VIAL SUBCUT ×2 (08:05→12:01)
[2022-05-18] MEDS: cloNIDine HCL 0.2 MG TABLET PO ×2 (08:05→14:02)
[2022-05-18] MEDS: Insulin Lispro 100 UNIT/ML 3 ML VIAL 10 UNIT SUBCUT ×2 (08:05→12:02)
[2022-05-18] MEDS: methADONE HCl 20 MG/2 ML ORAL.CONC 85 MG PO (08:05)
[2022-05-18] MEDS: vancomycin HCL 1,250 MG in 0.9 % Sodium Chloride 250 ML 166.67 MG IV (08:06)
[2022-05-18] MEDS: 0.9 % Sodium Chloride Flush 10 ML SYRINGE 5 ML IVFLUSH ×2 (08:15→14:04)
[2022-05-18] MEDS: 0.9 % Sodium Chloride Flush 3 ML SYRINGE IVFLUSH (08:15)
--- NOTE | 2022-05-18 10:16 | MHC.CM.PN ---
PATIENT ASKS THIS MACHINE UMBRELLA TIPPER TO CALL RAY AT [facility] @ [phone] MESSAGE LEFT FOR A CALL BACK. PATIENT TELLS THIS MACHINE UMBRELLA TIPPER THAT HE IS CONVINCED I DO NOT HAVE OSTEOMYELITIS' AND HE IS LEAVING AMA.
--- NOTE | 2022-05-18 11:14 | MHC.CM.PN ---
RAY FROM [facility] CALLED AND SAYS THAT THEY ARE UNABLE TO OFFER SERVICES. RAY DOES SAY THAT A INSTRUMENTATION TECH/ARMORED SERVICE TECHNICIAN FROM [facility] IS COMING IN TO VISIT TO DAY TO SEE WHAT CAN BE OFFERED MD, RN, AND PATIENT MADE AWARE
--- NOTE | 2022-05-18 11:41 | PM.DS ---
DS: Providers Provider Date of Service: 05/18/22 Date of admission: 04/25/22 21:30 Primary care physician: Unknown Physician Consults: 04/25/22 21:27 Consult to General Surgery Routine Consulting Provider: Elvin Maynard Reason for consultation: diabetic foot wound Has provider been notified: No Consult to Infectious Diseases Routine Consulting Provider: Nina Stone Reason for consultation: diabetic foot infection Has provider been notified: No 04/26/22 08:27 Addiction Medicine Stat Consulting Provider: Addiction Covering Reason for consultation: States due for 140 this am Has provider been notified: Yes 04/28/22 07:07 Consult to Infectious Diseases Routine Consulting Provider: Nina Stone Reason for consultation: osteo Has provider been notified: Yes 05/12/22 08:31 Consult to General Surgery Routine Consulting Provider: Jack Quiroz Reason for consultation: diabetic foot ulcer left 1st MTP with slough DS: Diagnosis Discharge Diagnosis (1) Acute osteomyelitis: Status: Acute DS: Summary Hospital Course Hospital Course: from initial hpi: Chief Complaint: foot wound ?this is a 51-year-old male with past medical history of type 2 diabetes insulin dependent,? peripheral vascular disease status post right transmetatarsal amputation, chronic wounds bilaterally, history of polysubstance abuse, hypertension, HLD, anxiety, chronic respiratory failure presents to the hospital with complaints of? worsening wound on top of his left foot. ? patient also complaining of worsening pain.? Of note patient was discharged from the hospital on 03/21 after undergoing right metatarsal amputation? and was discharged on antibiotics.? Patient reports compliance with doxycycline.? Patient reports that his wound has been worsening over the past 3 days.? He denies any chest pain, no shortness of breath, no fever or chills, no abdominal pain nausea or vomiting, no diarrhea constipation, no urinary symptoms. ? On arrival patient hemodynamically stable ? labs are significant for? normal WBC count, ESR 79, ?imaging showed chronic deformities in ports surgical changes of both C, with no acute findings. ? Patient will be admitted for further management hospital course: Patient was admitted for bilateral foot ulcers due to diabetes and peripheral vascular disease complicated by clinical acute osteomyelitis. He was seen by infectious disease recommended 6 weeks of IV vancomycin and p.o. Levaquin. Patient had PICC line placed and plan was for placement for continued IV antibiotics, however patient decided to leave against medical advice he is aware of the risk of doing so including . Patient will be prescribed p.o. Levaquin and Zyvox complete 6 weeks. Firs opiate dependence he was treated with methadone. For his diabetes with hyperglycemia is continued on insulin. For hypertension he was continued on clonidine and amlodipine was added. For chronic respiratory failure with hypoxia related to post COVID dyspnea he was continued on baseline O2. Time Spent with Patient Time attestation: Total time managing care of this patient today ____ minutes. Discharge coordination time: Greater than 30 minutes Quality: Safe Use of Opioids Does Pt have an Active Cancer Diagnosis on the Problem List?: No Quality: Stroke Does the patient have a stroke diagnosis?: No Physical Exam Vital Signs: Vital Signs: Last Vital Signs Temp 99.5 F 05/18/22 07:21 Pulse 66 05/18/22 07:21 Resp 18 05/18/22 07:21 BP 158/77 H 05/18/22 07:21 Pulse Ox 95 05/18/22 07:21 O2 Del Method 05/18/22 07:21 O2 Flow Rate 2 05/18/22 04:00 BMI result Body Mass Index 36.0 Constitutional - Awake and Alert, No apparent distress Eyes - PERRLA, EOMI Cardiovascular - S1S2, RRR, No edema Respiratory - Normal lung expansion, Normal respiratory effort, No respiratory distress, CTA bilaterally Extremities - no calf tenderness bilaterally, no swelling Skin - Warm/Dry Neurological - Alert & oriented x3 Psychological - Appropriate affect DS: Data Data Completed and Pending Labs on day of discharge: Laboratory Results - last 24 hr 05/17/22 05/17/22 05/18/22 15:29 19:29 05:28 Creatinine 0.86 Estim Creat Clear Calc 138.6 Estimated GFR > 60 POC Glucose 179 H 290 H Vancomycin Trough 05/18/22 05/18/22 05:28 07:21 Creatinine Estim Creat Clear Calc Estimated GFR POC Glucose 289 H Vancomycin Trough 20.8 H Discharge Plan Discharge Anticipated Discharge Date/Time: 05/18/22 11:40 Patient Disposition: Left Against Medical Advice Discharge Diagnosis: OM Referrals: Physician,Unknown J [Primary Care Provider] - 1 Week Discharge Medications: New amlodipine 5 mg Tablet 5 mg PO DAILY Qty: 30 0RF Protocol: Hold for SBP< HOLD for SBP < : 90 linezolid [Zyvox] 600 mg tablet 600 mg PO Q12H 21 Days Qty: 42 0RF levofloxacin 750 mg Tablet 750 mg PO Q24H Qty: 22 0RF Continued furosemide 40 mg tablet 1 tab PO BID atorvastatin 40 mg tablet 1 tab PO BEDTIME gabapentin 600 mg tablet 1 tab PO TID clonazepam 1 mg tablet 1 tab PO BID PRN (Reason: anxiety) quetiapine 100 mg tablet 1 tab PO BID clonidine HCl 0.2 mg tablet 1 tab PO TID insulin lispro 100 unit/mL insulin pen 15 unit subcut TID insulin glargine [Lantus Solostar U-100 Insulin] 100 unit/mL (3 mL) insulin pen 120 unit subcut BEDTIME methadone [Methadone Intensol] 10 mg/mL Concentrate 140 mg PO DAILY Discontinued doxycycline hyclate 100 mg tablet 1 tab PO BID Qty: 62 0RF Discharge Orders: Discharge Order (Routine); Ordered 05/18/22 Ordered By: Espinoza Pa Diet: Advance to usual diet Activity on Discharge: As tolerated Stand Alone Forms: Patient Portal Discharge page Care Plan Goals: recovery Health Concerns: clinical om Plan of Treatment: abx as prescribed Assessment: see above
--- NOTE | 2022-05-18 11:59 | MHC.CM.PN ---
CALL TO [facility] [phone] RX HAS NOT YET BEEN PROCESSED. T/W ASKED TO CALL BACK LATER IN THE DAY
[2022-05-18 12:00] LABS: Glucose, Whole Blood 188 mg/dL (60-115)
[2022-05-18] MEDS: levoFLOXacin 750 MG TABLET PO (12:02)
--- NOTE | 2022-05-18 15:44 | MHC.CM.PN ---
PATIENT LEFT AMA. HE IS AWARE THAT HIS WERE SENT TO [facility]. HE STATES THAT HE DOES NOT NEED THIS MARINE PHOTOGRAPHER TO VERIFY THE COST RN AWARE OF PLAN.
== END 2022-05-18 16:00 | disposition left against medical advice (07) | DRG 344 ==
LOC: HO.ED 17:31 → HO.EDOVER 21:35 → HO.S3 21:46
PROVIDERS: Hospitalist; Internal Medicine; Physician Assistant; Student in an Organized Health Care Education/Training Program; Admitting Provider Internal Medicine; Emergency Provider Internal Medicine; Visit Provider Internal Medicine
DX: E11.69 Type 2 diabetes mellitus with other specified complication (principal); M86.172 Other acute osteomyelitis, left ankle and foot; J96.11 Chronic respiratory failure with hypoxia; E11.51 Type 2 diabetes mellitus with diabetic peripheral angiopathy without gangrene; E11.621 Type 2 diabetes mellitus with foot ulcer; L97.519 Non-pressure chronic ulcer of other part of right foot with unspecified severity; U09.9 Post COVID-19 condition, unspecified; L97.529 Non-pressure chronic ulcer of other part of left foot with unspecified severity; E11.65 Type 2 diabetes mellitus with hyperglycemia; E66.9 Obesity, unspecified; E78.5 Hyperlipidemia, unspecified; F11.20 Opioid dependence, uncomplicated; Z68.36 Body mass index [BMI] 36.0-36.9, adult; M62.838 Other muscle spasm; F41.9 Anxiety disorder, unspecified; Z75.1 Person awaiting admission to adequate facility elsewhere; I10 Essential (primary) hypertension; Z20.822 Contact with and (suspected) exposure to COVID-19; Z79.4 Long term (current) use of insulin; Z88.0 Allergy status to penicillin; Z88.6 Allergy status to analgesic agent; Z79.899 Other long term (current) drug therapy
CPT/HCPCS: 36415; 36573; 71045; 73590; 73630; 78315; 80048; 80076; 80202; 82565; 82947; 83605; 83690; 85025; 85027; 85652; 87040; 87635; 93005; 99285; A9503; C1751; J0692; J1650; J3370

== ENCOUNTER 2022-05-24 18:41 | Inpatient (IN) | payer MEDICAID, SELFPAY ==
--- NOTE | ~2022-05-24 | IR_ITS ---
EXAMINATION: REMOVAL OF PICC LINE. CLINICAL INFORMATION: PICC line is not needed. IR/IR cvc remove any age FINDINGS/IMPRESSION: Previously inserted PICC line by IR nursing has been removed.
--- NOTE | ~2022-05-24 | XR_ITS ---
EXAMINATION: XR FOOT, LEFT CLINICAL INFORMATION: Chronic left foot wound with pain COMPARISON: 04/25/2022 TECHNIQUE: AP, lateral, and oblique views of the left foot. FINDINGS: Postop changes are seen in the foot with deformities with a surgical screw through the calcaneus as well as talus and staple in the first metatarsal. Again seen is partial amputation of the distal aspects of the fourth and fifth metatarsals. Degenerative changes are present in the metatarsal tarsal joints. No acute bony destructive lesion or fracture is seen. Generalized soft tissue edema is seen which is grossly unchanged compared the prior exam XR/XR foot LT min 3V IMPRESSION: Stable examination of the left foot as described above EXAMINATION: XR FOOT, RIGHT CLINICAL INFORMATION: Chronic right foot wound with pain COMPARISON: 04/25/2022 TECHNIQUE: AP, lateral, and oblique views of the right foot. 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 Surgical clips are present. Soft tissue swelling is seen. No bony destruction is seen to suggest osteomyelitis. No acute fractures. IMPRESSION: Stable examination of the right foot as described above
--- NOTE | ~2022-05-24 | XR_ITS ---
EXAMINATION: XR FOOT, LEFT CLINICAL INFORMATION: Chronic left foot wound with pain COMPARISON: 04/25/2022 TECHNIQUE: AP, lateral, and oblique views of the left foot. FINDINGS: Postop changes are seen in the foot with deformities with a surgical screw through the calcaneus as well as talus and staple in the first metatarsal. Again seen is partial amputation of the distal aspects of the fourth and fifth metatarsals. Degenerative changes are present in the metatarsal tarsal joints. No acute bony destructive lesion or fracture is seen. Generalized soft tissue edema is seen which is grossly unchanged compared the prior exam XR/XR foot RT min 3V IMPRESSION: Stable examination of the left foot as described above EXAMINATION: XR FOOT, RIGHT CLINICAL INFORMATION: Chronic right foot wound with pain COMPARISON: 04/25/2022 TECHNIQUE: AP, lateral, and oblique views of the right foot. 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 Surgical clips are present. Soft tissue swelling is seen. No bony destruction is seen to suggest osteomyelitis. No acute fractures. IMPRESSION: Stable examination of the right foot as described above
--- NOTE | 2022-05-24 18:56 | ED.CHESTPAIN ---
HPI - Chest Pain General Chief Complaint: General Medical <Goldie Gandhi CNP - Last Filed: 05/24/22 19:08> Stated Complaint: out of oxygen, chest pain, difficulty breathing <Goldie Gandhi CNP - Last Filed: 05/24/22 19:08> Time Seen by Provider: 05/25/22 01:19 <Goldie Gandhi CNP - Last Filed: 05/24/22 19:08> Source: patient <Filiberto Nesbitt MD - Last Filed: 05/25/22 01:25> Mode of arrival: ambulatory <Filiberto Nesbitt MD - Last Filed: 05/25/22 01:25> Limitations: no limitations <Filiberto Nesbitt MD - Last Filed: 05/25/22 01:25> History of Present Illness HPI narrative: Patient is a 51-year-old male past medical history of diabetes, hypertension, peripheral artery disease, polysubstance use, anxiety, chronic O2 dependence on 2 L via nasal cannula, who presents to the emergency department complaining of chest pain, difficulty breathing, and reporting he ran out of his oxygen a few hours ago. O2 saturations ranging from high 80's - 92 during initial assessment, placed on 2L via NC. He was recently admitted to the hospital 04/27/2022 - 05/18/2022, admitted for acute osteomyelitis being treated with IV vancomycin and p.o. Levaquin had PICC line placed, however he left against medical advice and was discharged on Levaquin and Zyvox. He states that he has only been taking 1 of these medications as the other was not available. He states he has not been taking his antihypertensives because he ran out. Has been unable to take his methadone. Currently does not meet sirs criteria however given history will obtain lactic acid, blood cultures. <Filiberto Nesbitt MD - Last Filed: 05/25/22 01:25> Related Data Home Medications: Home Medications Medication Instructions Recorded Confirmed clonazepam 1 mg tablet 1 tab PO BID PRN anxiety 03/16/22 04/25/22 furosemide 40 mg tablet 1 tab PO BID 03/16/22 04/25/22 gabapentin 600 mg tablet 1 tab PO TID 03/16/22 04/25/22 insulin glargine 100 unit/mL (3 120 unit subcut BEDTIME 03/16/22 04/25/22 mL) subcutaneous pen (Lantus Solostar U-100 Insulin) insulin lispro 100 unit/mL 15 unit subcut TID 03/16/22 04/25/22 subcutaneous pen quetiapine 100 mg tablet 1 tab PO BID 03/16/22 04/25/22 methadone 10 mg/mL oral 140 mg PO DAILY 04/25/22 concentrate (Methadone Intensol) Previous Rx's Medication Instructions Recorded amlodipine 5 mg tablet 5 mg PO DAILY #30 tabs 05/18/22 atorvastatin 40 mg tablet 1 tab PO BEDTIME #30 tabs 05/18/22 blood-glucose meter (FreeStyle #1 ea 05/18/22 Flash System kit) clonidine HCl 0.2 mg tablet 1 tab PO TID #90 tabs 05/18/22 levofloxacin 750 mg tablet 750 mg PO Q24H #22 tabs 05/18/22 linezolid 600 mg tablet (Zyvox) 600 mg PO Q12H 21 days #42 tabs 05/18/22 <Goldie Gandhi CNP - Last Filed: 05/24/22 19:08> Allergies/Adverse Reactions: Allergies Allergy/AdvReac Type Severity Reaction Status Date / Time prochlorperazine Allergy Intermediate Hives Verified 03/22/22 10:13 [From Compazine] aspirin [ASA] Allergy Unknown HIVES Unverified 02/20/20 16:18 naproxen [From NAPROSYN] Allergy Unknown HIVES Unverified 02/20/20 16:18 NSAIDS (Non-Steroidal Allergy Unknown HIVES Unverified 02/20/20 16:18 Anti-Inflamma [NSAIDS (NON-STEROIDAL ANTI-INFLAMMA] Penicillins [PENICILLINS] Allergy Unknown HIVES Unverified 02/20/20 16:18 <Goldie Gandhi CNP - Last Filed: 05/24/22 19:08> [facility] Past Medical History Medical History: Medical History Compartment syndrome of left lower extremity Diabetes HTN (hypertension) Post-COVID chronic dyspnea Ulcer of left foot <Goldie Gandhi CNP - Last Filed: 05/24/22 19:08> Surgical History: Surgical History Status post transmetatarsal amputation of right foot <Goldie Singhtavon Gandhi CNP - Last Filed: 05/24/22 19:08> Family History Family History: Family History Other No pertinent family history <Goldie Gandhi CNP - Last Filed: 05/24/22 19:08> Social History Social History: Social History Household Members: None Housing: Apartment Housing Other:: reports no place to live Do you presently have visiting nurse or other home services: No Alcohol intake: never Patient Tobacco Use Status: Never used Tobacco Smoked in Last 30 Days: No e-Cigarette/Vaping Use: Never Used Use of substances other than those prescribed or required for medical reasons: No Advance Directives: No Advance Directives Information Provided: No service: No Current occupational status: disabled <Goldie Davinatavon Gandhi CNP - Last Filed: 05/24/22 19:08> Physical Exam Vital Signs: Vital Signs: Last Vital Signs Temp 98.6 F 05/24/22 18:58 Pulse 91 05/24/22 18:58 Resp 18 05/24/22 18:58 BP 167/88 H 05/24/22 18:58 Pulse Ox 93 05/24/22 18:58 O2 Del Method 05/24/22 18:58 BMI result Body Mass Index 34.2 <Goldie Davinatavon Gandhi CNP - Last Filed: 05/24/22 19:08> Vital Signs: Last Vital Signs Temp 98.6 F 05/24/22 18:58 Pulse 91 05/24/22 18:58 Resp 18 05/24/22 18:58 BP 167/88 H 05/24/22 18:58 Pulse Ox 93 05/24/22 18:58 O2 Del Method 05/24/22 18:58 BMI result Body Mass Index 34.2 <Filiberto Nesbitt MD - Last Filed: 05/25/22 01:25> Course Course Course Narrative: Patient is a 51-year-old male past medical history of diabetes, hypertension, peripheral artery disease, polysubstance use, anxiety, chronic O2 dependence on 2 L via nasal cannula, who presents to the emergency department complaining of chest pain, difficulty breathing, and reporting he ran out of his oxygen a few hours ago. O2 saturations ranging from high 80's - 92 during initial assessment, placed on 2L via NC. He was recently admitted to the hospital 04/27/2022 - 05/18/2022, admitted for acute osteomyelitis being treated with IV vancomycin and p.o. Levaquin had PICC line placed, however he left against medical advice and was discharged on Levaquin and Zyvox. He states that he has only been taking 1 of these medications as the other was not available. He states he has not been taking his antihypertensives because he ran out. Has been unable to take his methadone. Currently does not meet sirs criteria however given history will obtain lactic acid, blood cultures. Plan: Labs, O2 via nasal cannula, XR bilateral feet; chronic ulcers <Goldie Gandhi CNP - Last Filed: 05/24/22 19:08> Medical Decision Making Lab Data Labs: Lab Results 05/24/22 Range/Units 20:34 COVID-19 (NACHO) Negative (Negative) COVID-19 Clin Com See Note <Goldie Gandhi CNP - Last Filed: 05/24/22 19:08> Lab Results 05/24/22 Range/Units 20:34 COVID-19 (NACHO) Negative (Negative) COVID-19 Clin Com See Note <Filiberto Nesbitt MD - Last Filed: 05/25/22 01:25> Discharge Plan Discharge Prescriptions: No Action furosemide 40 mg tablet 1 tab PO BID gabapentin 600 mg tablet 1 tab PO TID clonazepam 1 mg tablet 1 tab PO BID PRN (Reason: anxiety) quetiapine 100 mg tablet 1 tab PO BID insulin lispro 100 unit/mL insulin pen 15 unit subcut TID insulin glargine [Lantus Solostar U-100 Insulin] 100 unit/mL (3 mL) insulin pen 120 unit subcut BEDTIME methadone [Methadone Intensol] 10 mg/mL Concentrate 140 mg PO DAILY amlodipine 5 mg Tablet 5 mg PO DAILY Qty: 30 0RF Protocol: Hold for SBP< HOLD for SBP < : 90 linezolid [Zyvox] 600 mg tablet 600 mg PO Q12H 21 Days Qty: 42 0RF levofloxacin 750 mg Tablet 750 mg PO Q24H Qty: 22 0RF (DME) blood-glucose meter [FreeStyle Flash System] Kit See Rx Instructions .Route Qty: 1 0RF Rx Instructions: As directed atorvastatin 40 mg tablet 1 tab PO BEDTIME Qty: 30 0RF clonidine HCl 0.2 mg tablet 1 tab PO TID Qty: 90 0RF <Goldie Gandhi CNP - Last Filed: 05/24/22 19:08>
[2022-05-24 18:58] VITALS: BP 167/88; PULSE 91; RESP 18; TEMP 37; O2SAT 93; BMI 34.2
[2022-05-24 21:05] LABS: COVID-19 Test Negative (Negative); IDNOW Serial# 16C4AD1C
--- NOTE | 2022-05-25 01:01 | PC.NURSE ---
Pt brought back to room 19. Pt complaining of 8/10 pain bilaterally in the legs. Pt reporting he left AMA last week after day 19 of 60 of antibiotics for infections in his legs. Pt right foot has open wounds that have been draining and his left foot is currently bandaged up. Both legs appear red, hot, and swollen. Multiple people have had trouble getting blood from the pt, pt states he has gotten his IV in the neck in the past.
--- NOTE | 2022-05-25 01:29 | ED.GENADULT ---
HPI - General Adult General Chief complaint: General Medical Stated complaint: out of oxygen, chest pain, difficulty breathing Time Seen by Provider: 05/25/22 01:19 Source: patient Mode of arrival: ambulatory Limitations: no limitations History of Present Illness HPI narrative: Patient with known osteomyelitis of his left foot. He was hospitalized earlier this month. He left AMA before completing therapy. He was in the process of trying to get home medications but was unable. He ran out of oxygen tonight which precipitated him to return to the hospital. He agrees to stay this time. He has not had his antibiotics since he left last week. He has been out of methadone for the past 2 and half days. He feels like he is withdrawing. Abdominal cramps. Shaking. No new fevers. Related Data Home Medications Medication Instructions Recorded Confirmed clonazepam 1 mg tablet 1 tab PO BID PRN anxiety 03/16/22 05/25/22 furosemide 40 mg tablet 1 tab PO BID 03/16/22 05/25/22 gabapentin 600 mg tablet 1 tab PO TID 03/16/22 05/25/22 insulin glargine 100 unit/mL (3 120 unit subcut BEDTIME 03/16/22 05/25/22 mL) subcutaneous pen (Lantus Solostar U-100 Insulin) insulin lispro 100 unit/mL 15 unit subcut TID 03/16/22 05/25/22 subcutaneous pen quetiapine 100 mg tablet 1 tab PO BID 03/16/22 05/25/22 methadone 10 mg/mL oral 140 mg PO DAILY 04/25/22 05/25/22 concentrate (Methadone Intensol) Previous Rx's Medication Instructions Recorded amlodipine 5 mg tablet 5 mg PO DAILY #30 tabs 05/18/22 atorvastatin 40 mg tablet 1 tab PO BEDTIME #30 tabs 05/18/22 blood-glucose meter (FreeStyle #1 ea 05/18/22 Flash System kit) clonidine HCl 0.2 mg tablet 1 tab PO TID #90 tabs 05/18/22 levofloxacin 750 mg tablet 750 mg PO Q24H #22 tabs 05/18/22 Allergies Allergy/AdvReac Type Severity Reaction Status Date / Time prochlorperazine Allergy Intermediate Hives Verified 03/22/22 10:13 [From Compazine] aspirin [ASA] Allergy Unknown HIVES Unverified 09/17/20 16:18 naproxen [From NAPROSYN] Allergy Unknown HIVES Unverified 02/20/20 16:18 NSAIDS (Non-Steroidal Allergy Unknown HIVES Unverified 02/20/20 16:18 Anti-Inflamma [NSAIDS (NON-STEROIDAL ANTI-INFLAMMA] Penicillins [PENICILLINS] Allergy Unknown HIVES Unverified 02/20/20 16:18 Review of Systems Constitutional: Comments: Chills which she attributes to opioid abstinence. No fevers. positive generalized weakness Cardiovascular: Comments: No chest pain Respiratory: Comments: No cough. Positive dyspnea Gastrointestinal: Comments: Abdominal cramps Musculoskeletal: Comments: Bilateral foot pain Integumentary/Breasts: Comments: Chronic wounds bilateral feet. Neurologic: Comments: Bilateral foot paresthesias secondary to diabetic neuropathy [facility] Past Medical History Medical History Compartment syndrome of left lower extremity Diabetes HTN (hypertension) Post-COVID chronic dyspnea Ulcer of left foot Surgical History Status post transmetatarsal amputation of right foot Family History Family History Other No pertinent family history Social History Social History Household Members: None Housing: Apartment Housing Other:: reports no place to live Do you presently have visiting nurse or other home services: No Alcohol intake: never Patient Tobacco Use Status: Never used Tobacco e-Cigarette/Vaping Use: Never Used service: No Current occupational status: disabled Physical Exam ED Vital Signs: Vital Signs - 24 hr 05/24/22 18:58 Temperature 98.6 F Pulse Rate 91 Respiratory Rate 18 Blood Pressure 167/88 H Pulse Oximetry 93 Oxygen Delivery Method Room Air BMI result Body Mass Index 34.2 Const Other: Awake and alert. Appears uncomfortable Resp Other: Clear and equal bilaterally without wheezes rales or rhonchi Cardio Other: Regular rate and rhythm without murmurs rubs or gallops GI Other: Soft nontender nondistended Skin Other: Warm pink and dry. Chronic wounds bilateral feet. Draining. Neuro Other: No obvious acute focal neuro deficits Extrem Other: Right foot transmetatarsal amputation. Bilateral foot swelling Course Course Course Narrative: Workup in the emergency department shows bilateral foot x-rays with degenerative changes but no active osseous lesions. No change from prior. White count is normal. He is mildly anemic at his baseline. Chemistries pending Attempted IV access with ultrasound without success. Will hospitalized for Interventional Radiology IV access tomorrow Medications Administered Generic Name Dose Route Start Last Admin Trade Name Freq PRN Reason Stop Dose Admin Amlodipine Besylate 5 mg 05/25/22 09:00 05/27/22 08:40 Amlodipine Besylate 5 Mg Tablet PO 5 mg DAILY RICHARD Administration Protocol Atorvastatin Calcium 40 mg 05/25/22 21:00 05/26/22 21:14 Atorvastatin Calcium 40 Mg Tablet PO 40 mg BEDTIME RICHARD Administration Clonazepam 1 mg 05/25/22 02:10 05/27/22 08:48 Clonazepam 1 Mg Tablet PO 1 mg BID PRN Administration anxiety Clonidine HCl 0.2 mg 05/25/22 09:00 05/27/22 13:43 Clonidine Hcl 0.2 Mg Tablet PO 0.2 mg TID RICHARD Administration Protocol Enoxaparin Sodium 40 mg 05/25/22 09:00 05/27/22 08:40 Enoxaparin Sodium 40 Mg/0.4 Ml Syringe SUBCUT Not Given Q24H RICHARD Furosemide 40 mg 05/25/22 08:00 05/27/22 08:40 Furosemide 40 Mg Tablet PO 40 mg BIDWM RICHARD Administration Protocol Gabapentin 600 mg 05/25/22 09:00 05/27/22 13:44 Gabapentin 600 Mg Tablet PO 600 mg TID RICHARD Administration Vancomycin HCl 1,250 mg/ 250 mls @ 166.667 mls/hr 05/27/22 00:00 05/27/22 13:31 Sodium Chloride IV Infused Q12H RICHARD Infusion Insulin Glargine 60 unit 05/25/22 21:00 05/26/22 21:13 Insulin Glargine,Hum.Rec.Anlog 100 Unit/Ml 10 Ml Vial SUBCUT 60 unit BEDTIME RICHARD Administration Insulin Human Lispro 0 unit 05/25/22 07:30 05/27/22 11:50 Insulin Lispro 100 Unit/Ml 3 Ml Vial SUBCUT Not Given QIDACHS [facility] Protocol Insulin Human Lispro 5 unit 05/25/22 07:30 05/27/22 11:49 Insulin Lispro 100 Unit/Ml 3 Ml Vial SUBCUT 5 unit TIDAC RICHARD Administration Levofloxacin 750 mg 05/25/22 02:15 05/27/22 01:44 Levofloxacin 750 Mg Tablet PO 750 mg Q24H RICHARD Administration Methadone HCl 55 mg 05/27/22 09:00 05/27/22 08:40 Methadone Hcl 20 Mg/2 Ml Oral.Conc PO 55 mg DAILY RICHARD Administration Quetiapine Fumarate 100 mg 05/25/22 09:00 05/27/22 08:40 Quetiapine Fumarate 100 Mg Tablet PO 100 mg BID RICHARD Administration Sodium Chloride 3 ml 05/25/22 08:00 05/27/22 08:40 0.9 % Sodium Chloride Flush 3 Ml Syringe IVFLUSH 3 ml QSHIFT RICHARD Administration Discontinued Medications Generic Name Dose Route Start Last Admin Trade Name Freq PRN Reason Stop Dose Admin Gabapentin 600 mg 05/25/22 03:31 05/25/22 03:44 Gabapentin 600 Mg Tablet PO 05/25/22 03:32 600 mg ONCE ONE Administration Vancomycin HCl 2,000 mg in 520 mls @ 260 mls/hr 05/25/22 01:26 05/25/22 03:22 Vancomycin/Ns IV 05/25/22 03:25 Not Given ONCE ONE Vancomycin HCl 1,000 mg/ 270 mls @ 270 mls/hr 05/26/22 11:00 05/26/22 11:42 Sodium Chloride IV Not Given Q12H RICHARD Vancomycin HCl 2,000 mg in 520 mls @ 260 mls/hr 05/26/22 12:00 05/26/22 15:09 Vancomycin/Ns IV 05/26/22 13:59 Infused ONCE ONE Infusion Linezolid 600 mg 05/25/22 11:00 05/25/22 22:36 Linezolid 600 Mg Tablet PO 600 mg Q12H RICHARD Administration Methadone HCl 85 mg 05/25/22 01:26 05/25/22 02:29 Methadone Hcl 20 Mg/2 Ml Oral.Conc PO 05/25/22 01:27 85 mg ONCE ONE Administration Methadone HCl 40 mg 05/26/22 09:00 05/26/22 08:21 Methadone Hcl 20 Mg/2 Ml Oral.Conc PO 40 mg DAILY RICHARD Administration Quetiapine Fumarate 100 mg 05/25/22 03:30 05/25/22 03:44 Quetiapine Fumarate 100 Mg Tablet PO 05/25/22 03:31 100 mg ONCE ONE Administration Medical Decision Making Medical Decision Making MDM Narrative: Patient with known osteomyelitis who needs IV antibiotics. He is also having opioid abstinence syndrome secondary to running out of all medications including methadone. He has not had antibiotics since he was discharged on the . Will repeat workup. Restart medications. Anticipate rehospitalization. Patient states he is willing to stay in the hospital this time Lab Data Result Diagrams: 05/27/22 05:58 05/27/22 05:58 Labs: Lab Results 05/24/22 05/24/22 Range/Units 20:34 Unknown Sodium 138 (135-145) mmol/L Potassium 5.1 D (3.3-5.1) mmol/L Chloride 108 (96-108) mmol/L Carbon Dioxide 20 L (22-29) mmol/L Anion Gap 15 (12-20) BUN 19 H (9-16) mg/dL Creatinine 0.76 (0.5-1.4) mg/dL Estim Creat Clear Calc 152.9 Estimated GFR > 60 Random Glucose 174 H (60-115) mg/dL Calcium 8.8 (8.4-10.2) mg/dL Total Bilirubin 0.9 (0.0-1.0) mg/dL AST 74 H (5-37) U/L ALT 58 H (0-40) U/L Alkaline Phosphatase 359 H (39-117) U/L C-Reactive Protein 4.36 H (< or = 0.50) mg/dL Total Protein 7.2 (6.5-8.0) g/dL Albumin 3.6 (3.5-5.0) g/dL COVID-19 ([facility]) Negative (Negative) COVID-19 Clin Com See Note Discharge Plan Discharge Clinical Impression: Acute osteomyelitis Patient Disposition: Admitted As Inpatient Interventions: Admission Worksheet (ED) Last Done: 05/25/22 10:40 Discharge Date/Time: 05/25/22 10:00
--- NOTE | 2022-05-25 01:45 | PC.NURSE ---
Med Rec done at this time.
[2022-05-25] MEDS: methADONE HCl 20 MG/2 ML ORAL.CONC 85 MG PO (02:29)
[2022-05-25] MEDS: clonazePAM 1 MG TABLET PO ×2 (02:30→12:04)
--- NOTE | 2022-05-25 02:36 | PM.IMHP ---
History of Present Illness Date of Service: 05/25/22 Chief Complaint: bilateral DFU oozing, ran out of o2 51M pmh obesity, opiate dependence, htn, DM, chronic hypoxic respiratory failure, PVD, hld, anxiety, presented with bilateral DFU with oozing. patient had left [facility] on 05/18/22 after hospitalization for bilateral DFU/clinical OM, plan had been for 6 weeks iv vanc and po levaquin. when he left [place], alternative plan was for po levaquin and zyvox, however, patient was unable to scrap picker medication. he is now returning due to sob after running out of home o2 and for worsening secretions from his bilateral ulcers. in ED, labs were unable to be drawn, pateint did not appear septic, xray without OM. Review of Systems Review of Systems: Constitutional: Chills Eyes: denies blurry vision ENT: denies sore throat CVS: denies chest pain Respiratory: dyspnea GI: no abdominal pain : denies dysuria MSK: denies neck pain Skin: see hpi Neuro: denies specific motor weakness Psych: denies suicidal ideation Endocrine: denies heat/cold intolerance Hematologic: denies easy bleeding Allergy: denies hives [facility] Medical History Compartment syndrome of left lower extremity Diabetes HTN (hypertension) Post-COVID chronic dyspnea Ulcer of left foot Family History Other No pertinent family history Surgical History Status post transmetatarsal amputation of right foot Social History Household Members: None Housing: Apartment Housing Other:: reports no place to live Do you presently have visiting nurse or other home services: No Alcohol intake: never Patient Tobacco Use Status: Never used Tobacco Smoked in Last 30 Days: No e-Cigarette/Vaping Use: Never Used Use of substances other than those prescribed or required for medical reasons: No Advance Directives: No Advance Directives Information Provided: No service: No Current occupational status: disabled Meds Allergies Allergy/AdvReac Type Severity Reaction Status Date / Time prochlorperazine Allergy Intermediate Hives Verified 03/22/22 10:13 [From Compazine] aspirin [ASA] Allergy Unknown HIVES Unverified 02/20/20 16:18 naproxen [From NAPROSYN] Allergy Unknown HIVES Unverified 02/20/20 16:18 NSAIDS (Non-Steroidal Allergy Unknown HIVES Unverified 02/20/20 16:18 Anti-Inflamma [NSAIDS (NON-STEROIDAL ANTI-INFLAMMA] Penicillins [PENICILLINS] Allergy Unknown HIVES Unverified 02/20/20 16:18 Active Medications: Current Medications Amlodipine Besylate (Amlodipine Besylate 5 Mg Tablet) 5 mg PO DAILY [facility]; Protocol Atorvastatin Calcium (Atorvastatin Calcium 40 Mg Tablet) 40 mg PO BEDTIME RICHARD Clonazepam (Clonazepam 1 Mg Tablet) 1 mg PO BID PRN PRN Reason: anxiety Last Admin: 05/25/22 02:30 Dose: 1 mg Clonidine HCl (Clonidine Hcl 0.2 Mg Tablet) 0.2 mg PO TID RICHARD; Protocol Dextrose (Dextrose 50 % 25 Gm/50 Ml Syringe) 25 gm IVPUSH Q15M PRN; Protocol PRN Reason: per Hypoglycemia Standing Ord. Enoxaparin Sodium (Enoxaparin Sodium 40 Mg/0.4 Ml Syringe) 40 mg SUBCUT Q24H RICHARD Furosemide (Furosemide 40 Mg Tablet) 40 mg PO BIDWM RICHARD; Protocol Gabapentin (Gabapentin 600 Mg Tablet) 600 mg PO TID RICHARD Glucose (Glucose Gel 15 Gm Gel..Gram.) 15 gm PO Q15M PRN; Protocol PRN Reason: per Hypoglycemia Standing Ord. Vancomycin HCl (Vancomycin/Ns) 2,000 mg in 520 mls @ 260 mls/hr IV ONCE ONE Stop: 05/25/22 03:25 Insulin Glargine (Insulin Glargine,Hum.Rec.Anlog 100 Unit/Ml 10 Ml Vial) 60 unit SUBCUT BEDTIME [facility] Insulin Human Lispro (Insulin Lispro 100 Unit/Ml 3 Ml Vial) 0 unit SUBCUT QIDACHS [facility]; Protocol Insulin Human Lispro (Insulin Lispro 100 Unit/Ml 3 Ml Vial) 5 unit SUBCUT TIDAC [facility] Levofloxacin (Levofloxacin 750 Mg Tablet) 750 mg PO Q24H [facility] Linezolid (Linezolid 600 Mg Tablet) 600 mg PO Q12H [facility] Methadone HCl (Methadone Hcl 20 Mg/2 Ml Oral.Conc) 85 mg PO DAILY [facility] Pharmacy Consult (Consult Rx Vancomycin Dosing) 1 each MISCELLANE DAILY PRN PRN Reason: Consult order Quetiapine Fumarate (Quetiapine Fumarate 100 Mg Tablet) 100 mg PO BID [facility] Sodium Chloride (0.9 % Sodium Chloride Flush 3 Ml Syringe) 3 ml IVFLUSH QSHIFT [facility] Home Medications Medication Instructions Recorded Confirmed Last Taken Type clonazepam 1 mg tablet 1 tab PO BID PRN anxiety 03/16/22 05/25/22 05/22/22 History furosemide 40 mg tablet 1 tab PO BID 03/16/22 05/25/22 05/22/22 History gabapentin 600 mg tablet 1 tab PO TID 03/16/22 05/25/22 05/22/22 History insulin glargine 100 unit/mL (3 120 unit subcut BEDTIME 03/16/22 05/25/22 05/22/22 History mL) subcutaneous pen (Lantus Solostar U-100 Insulin) insulin lispro 100 unit/mL 15 unit subcut TID 03/16/22 05/25/22 05/22/22 History subcutaneous pen quetiapine 100 mg tablet 1 tab PO BID 03/16/22 05/25/22 05/22/22 History methadone 10 mg/mL oral 140 mg PO DAILY 04/25/22 05/25/22 05/22/22 History concentrate (Methadone Intensol) Physical Exam Vital Signs and Narrative: Vital Signs: Last Vital Signs Temp 98.6 F 05/24/22 18:58 Pulse 91 05/24/22 18:58 Resp 18 05/24/22 18:58 BP 167/88 H 05/24/22 18:58 Pulse Ox 93 05/24/22 18:58 O2 Del Method 05/24/22 18:58 BMI result Body Mass Index 34.2 General: no acute distress HEENT: atraumatic Neck: normal to visual inspection CVS: S1, S2, RRR Resp: CTA bilateral Chest: non tender GI: soft, non tender, non distended : no CVA tenderness Skin: no rashes Extremities: right tma, bilateral ulcers, see pic Neuro: Oriented X3, grossly intact Psych: cooperative Results Labs Labs: Laboratory Results - last 24 hr 05/24/22 20:34 COVID-19 ([facility]) Negative COVID-19 Clin Com See Note Imaging Radiologist's Impressions: Impressions Foot X-Ray 05/24/22 19:30 IMPRESSION: Stable examination of the left foot as described above EXAMINATION: XR FOOT, RIGHT CLINICAL INFORMATION: Chronic right foot wound with pain COMPARISON: 04/25/2022 TECHNIQUE: AP, lateral, and oblique views of the right foot. 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 Surgical clips are present. Soft tissue swelling is seen. No bony destruction is seen to suggest osteomyelitis. No acute fractures. IMPRESSION: Stable examination of the right foot as described above Foot X-Ray 05/24/22 19:30 IMPRESSION: Stable examination of the left foot as described above EXAMINATION: XR FOOT, RIGHT CLINICAL INFORMATION: Chronic right foot wound with pain COMPARISON: 04/25/2022 TECHNIQUE: AP, lateral, and oblique views of the right foot. 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 Surgical clips are present. Soft tissue swelling is seen. No bony destruction is seen to suggest osteomyelitis. No acute fractures. IMPRESSION: Stable examination of the right foot as described above Assessment and Plan (1) Diabetes type 2 with atherosclerosis of arteries of extremities: Status: Acute Plan 51M pmh obesity, opiate dependence, htn, DM, chronic hypoxic respiratory failure, PVD, hld, anxiety, presented with bilateral DFU with oozing bilateral lower extremity ulcers due to DM and PVD partially treated unable to get iv access will defer IR consult until seen by ID po levaquin and zyvox for now opiate dependence with withdrawal methadone DM basal bolus insulin with correction, monitor poc chronic hypoxic respiratory failure on 2L home o2 out of o2 at home obesity weight loss htn amlodipnie, clonidine mood disorder seroquel hld statin dvt prophylaxis - lovenox full code patient with oozing dfu, at risk for decompensation to sepsis due to DM, obesity, pvd, therefore, expected to require atleast 2 midnights inpatient Time Spent With Patient Time: Total time managing care of this patient today ____ minutes. Quality Stroke Does the patient have a stroke diagnosis?: No VTE Prior VTE?: No VTE Risk Level:: Medical - moderate - high VTE Device Contraindication: Treatment Not Indicated VTE Drug Contraindication: N/A - Med Ordered
[2022-05-25 02:39] LABS: Glucose, Whole Blood 114 mg/dL (60-115)
--- OUTSIDE RECORDS SUMMARY | 2022-05-25 02:41 | XMS_ITS | Continuity of Care Document ---
:1970 Author Organization [facility] Address Unavailable , Care Team Providers Name Role Phone Not on Staff, PCP Primary Care Physician Unavailable [place] [facility] [place]): 04/15/21 - 05/21/21 [facility] Attending Physician: Dimitri Baker MD Allergies, Adverse Reactions, Alerts Substance Reaction Severity Status penicillin1, 2, 3, 4 rash Unknown Active aspirin rash Unknown Active ketorolac hives Unknown Active Naprosyn rash Unknown Active Compazine rash Unknown Active 1Tolerated extended course of pip/tazo during November 2020 [id number] tolerated ampicillin/sulbactam during 01/2020 [id number] has tolerated piperacillin/tazobactam (08/09/15), cephalexin (01/19/16) and cefazolin (many occa sions).4patient tolerates meropenem Immunizations Given and Recorded Vaccine Date Status Refusal Reason SARS-CoV-2 (COVID-19) mRNA BNT-162b2 vac 10/08/20 Recorde d influenza virus vaccine, inactivated 07/10/16 Given tetanus/diphtheria/pertussis, acel(Tdap) 03/12/16 Given hepatitis B adult vaccine 10/03/13 Recorded pneumococcal 23-valent vaccine 06/11/13 Given tetanus-diphtheria toxoids (Td) 06/05/02 Recorded Not Given Vaccine Date Status Refusal Reason influenza virus vaccine, inactivated 07/29/19 Not Given Patient Refuses influenza virus vaccine, inactivated1 06/22/19 Not Given Patient Refuses influenza virus vaccine, inactivated 04/03/19 Not Given Patient Refuses influenza virus vaccine, inactivated 07/10/18 Not Given Patient Refuses influenza virus vaccine, inactivated 03/25/18 Not Given Patient Refuses influenza virus vaccine, inactivated 02/24/17 Not Given Patient Refuses influenza virus vaccine, inactivated 04/13/15 Not Given Patient Refuses 1Result Comment: patient stated he did not want, does not do flu shot Medications atorvastatin 40 mg oral tablet 1 tablet = 40 mg, By Mouth, Daily, 0 Refills, Maintenance, 10/26/20 8:11:00 EDT, Tablet, Partial fill upon patient request if the prescription is for a schedule II opioid drug. Start Date: 10/26/20 Status: Orderedbisacodyl 10 mg rectal suppository 1 supp = 10 mg, Rectally, Daily, PRN Constipation, 0 Refills, Maintenance, 01/05/21 13:28:00 EDT, Suppository, Partial fill upon patient request if the prescription is for a schedule II opioid drug. Start Date: 01/05/21 Status: Ordereddocusate sodium 150 mg/15 ml oral liquid 10 mL = 100 mg, PEG, 2 times a day, 0 Refills, Maintenance, 01/05/21 13:28:00 EDT, Liquid, Partial fill upon patient request if the prescription is for a schedule II opioid drug. Start Date: 01/05/21 Status: OrderedDuoneb Inhalation Solution 1, vials, BAND Nebulizer, Every 4 hours, PRN, Refills 0, Maintenance, 01/05/21 13:28:00 EDT, Inhalation Solution Start Date: 01/05/21 Status: Orderedfamotidine 20 mg oral tablet 20 mg, 1, tablet, PEG, 2 times a day, Refills 0, Maintenance, 01/05/21 13:28:00 EDT, Partial fill upon patient request if the prescription is for a schedule II opioid drug. Start Date: 01/05/21 Status: Orderedferrous sulfate 300 mg/5 ml oral liquid 5 mL = 300 mg, PEG, Daily, 0 Refills, Maintenance, 01/05/21 13:28:00 EDT, Elixir, Partial fill upon patient request if the prescription is for a schedule II opioid drug. Start Date: 01/05/21 Status: Orderedgabapentin 600 mg oral tablet 1 tablet = 600 mg, By Mouth, 3 times a day, # 21 tablet, 0 Refills, Maintenance, 03/18/20 11:06:00 EDT, Tablet, [facility], 183, cm, 03/18/20 7:55:00 EDT, Height, 101.1, kg, 03/11/20 17:51:00 EDT, Dry Weight Start Date: 03/18/20 Stop Date: 03/25/20 Status: Orderedheparin flush 10 units/mL intravenous solution 5 mL = 50 units, IV Push, Daily, 0 Refills, Maintenance, 01/05/21 13:28:00 EDT, Injection, Partial fill upon patient request if the prescription is for a schedule II opioid drug. Start Date: 01/05/21 Status: Orderedheparin flush 10 units/mL intravenous solution 5 mL = 50 units, IV Push, Every hour, PRN Line/Tube Patency, Post administration of Saline Flush, use 10 mL syringe, Heparin is last med left in line, 0 Refills, Maintenance, 01/05/21 13:28:00 EDT, Injection, Partial fill upon patient request if the p... Start Date: 01/05/21 Status: OrderedInsulin Lispro 10-18 units, Subcutaneous Injection, Every 6 hours, << Sliding Scale Comments >> 150 - 199 10 units Call if less than 100 200 - 249 12 units 250 - 299 14 units 300 - 349 16 units 350 - 399 18 units Call if greater than 400 << Slidin... Start Date: 01/05/21 Status: Orderedlactulose 10 gm/15 ml oral syrup 30 mL = 20 Gm, PEG, 3 times a day, PRN Constipation, 0 Refills, Maintenance, 01/05/21 13:28:00 EDT, Syrup, Partial fill upon patient request if the prescription is for a schedule II opioid drug. Start Date: 01/05/21 Status: OrderedLantus Inj 0.2 mL = 20 units, Subcutaneous Injection, 2 times a day, 0 Refills, Maintenance, 01/05/21 13:27:00 EDT, Injection, Partial fill upon patient request if the prescription is for a schedule II opioid drug. Start Date: 01/05/21 Status: Orderedlidocaine 5% topical film Topically, Daily, 0 Refills, Maintenance, 01/05/21 13:28:00 EDT, Patch, Partial fill upon patient request if the prescription is for a schedule II opioid drug. Start Date: 01/05/21 Status: Orderedmelatonin 3 mg oral tablet PEG, Daily at bedtime, 0 Refills, Maintenance, 01/05/21 13:28:00 EDT, Tablet, Partial fill upon patient request if the prescription is for a schedule II opioid drug. Start Date: 01/05/21 Status: Orderedmethadone 10 mg oral tablet 4 tablet = 40 mg, PEG, 3 times a day, 0 Refills, Maintenance, 01/05/21 13:27:00 EDT, Tablet, Partialfill upon patient request if the prescription is for a schedule II opioid drug. Start Date: 01/05/21 Status: OrderedMilk of Magnesia Liquid 10 mL, PEG, 2 times a day, PRN Constipation, 0 Refills, Maintenance, 01/05/21 13:29:00 EDT, Suspension, Partial fill upon patient request if the prescription is for a schedule II opioid drug. Start Date: 01/05/21 Status: OrderedMultivit Therapeutic/Minerals Tablet 1 tablet, Orogastric Tube, Daily, 0 Refills, Maintenance, 01/05/21 13:29:00 EDT, Tablet, Partial fill upon patient request if the prescription is for a schedule II opioid drug. Start Date: 01/05/21 Status: OrderedNystatin Powder 1 applicator, Topically, 2 times a day, 0 Refills, Maintenance, Powder Start Date: 01/05/21 Status: OrderedPeridex 0.12% Liquid 15 mL, Topically, 2 times a day, 0 Refills, Maintenance, Oral Rinse Start Date: 01/05/21 Status: OrderedpredniSONE 20 mg oral tablet 1 tablet = 20 mg, PEG, Daily, 0 Refills, Maintenance, 01/05/21 13:29:00 EDT, Tablet, Partial fill upon patient request if the prescription is for a schedule II opioid drug. Start Date: 01/05/21 Status: OrderedQUEtiapine 100 mg oral tablet 100 mg, 1, tablet, By Mouth, 2 times a day, # 60 tablet, Refills 0, Tot. Refills 0, Maintenance, 02/14/20 11:33:00 EDT, Route to Pharmacy Electronically, [facility], 186, cm, 02/14/20 11:26:00 EDT, Height, 100.5, kg, 02/10/20 6:42:00 EDT... Start Date: 02/14/20 Stop Date: 03/15/20 Status: OrderedSantyl Topical Oint 1 applicator, Topically, Daily, 0 Refills, Maintenance, Ointment Start Date: 01/05/21 Status: Orderedsertraline 25 mg oral tablet 1 tablet = 25 mg, By Mouth, Daily, 0 Refills, Maintenance, 01/05/21 13:29:00 EDT, Tablet, Partial fill upon patient request if the prescription is for a schedule II opioid drug. Start Date: 01/05/21 Status: Orderedthiamine 100 mg oral tablet 100 mg, 1, tablet, PEG, Daily, Refills 0, Maintenance, 01/05/21 13:29:00 EDT, Partial fill upon patient request if the prescription is for a schedule II opioid drug. Start Date: 01/05/21 Status: OrderedTylenol 325 mg oral tablet 650 mg, 2, tablet, PEG, Every 4 hours, PRN, Refills 0, Maintenance, Pain , Moderate, 01/05/21 13:28:00 EDT, Partial fill upon patient request if the prescription is for a schedule II opioid drug. Start Date: 01/05/21 Status: Ordered Problem List Condition Effective Dates Status Health Status Informant Alcoholic cirrhosis of Active liver(Confirmed) Alcoholism(Confirmed)1 Active Amputation toe(Confirmed)2 Active Anxiety(Confirmed) Active Diabetes mellitus(Confirmed) Active Diabetic foot ulcer(Confirmed) Active General medical(Confirmed) Active General medical(Confirmed) Active Hyperglycemia(Confirmed) Active Hyperkalemia(Confirmed) Active Hypertension(Confirmed) Active Lactic acid acidosis(Confirmed) Active Chronic narcotic use(Confirmed) Active Nontraumatic compartment syndrome of 09/30/09 Active lower extremity(Confirmed) 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 Also had alcohol withdrawal as part of surgical treatment for compartment syndrome.2rt 2 nd Social History Social History Type Response Smoking Status Never (less than 100 in life time) entered on: 05/02/20 Sex Male
--- OUTSIDE RECORDS SUMMARY | 2022-05-25 02:41 | XMS_ITS | Continuity of Care Document ---
:1970 Author Organization [facility] Address [address] [place] [address]- Care Team Providers Name Role Phone Not on Staff, PCP Primary Care Physician Unavailable Encounter [facility] Date(s): 11/06/19 - 11/12/[address] [address] Encounter Diagnosis Acute osteomyelitis (Final) - 11/06/19 Discharge Disposition: A-D/C Home Attending Physician: Gregory SHAFER, Sukumar Admitting Physician: Brittni Magallanes MD Referring Physician: Not on Staff, Referring MD Allergies, Adverse Reactions, Alerts Substance Reaction Severity Status penicillin1, 2 rash Unknown Active aspirin rash Unknown Active ketorolac hives Unknown Active Naprosyn rash Unknown Active Compazine rash Unknown Active 1patient has tolerated piperacillin/tazobactam (08/09/15), cephalexin (01/19/16) and cefazolin (many occasions).2patient tolerates meropenem Immunizations Given and Recorded Vaccine Date Status Refusal Reason influenza virus vaccine, inactivated 07/10/16 Given tetanus/diphtheria/pertussis, acel(Tdap) 03/12/16 Given pneumococcal 23-valent vaccine 06/11/13 Given Not Given Vaccine Date Status Refusal Reason [...] want, does not do flu shot Medications 500 mL normal saline for wound cleansing 500 mL normal saline for wound cleansing, See Instructions, # 1 each, Refills 0, Tot. Refills 0, Maintenance, 500 mL normal saline for wound cleansing, 08/08/19 11:15:00 EST, Supply, 186, cm, 08/08/19 5:36:00 EST, Height, 106.4, kg, 08/05/19 12:00:00... Start Date: 08/08/19 Status: OrderedAqua cell ointment for 1 month supply Aqua cell ointment for 1 month supply, See Instructions, # 1 each, Refills 0, Tot. Refills 0, Maintenance, Aquacell ointment for 1 month supply, 08/08/19 11:15:00 EST, Supply, 186, cm, 08/08/19 5:36:00EST, Height, 106.4, kg, 08/05/19 12:00:00 EST, Start Date: 08/08/19 Status: Orderedatorvastatin 10 mg oral tablet 1 tablet = 10 mg, By Mouth, Daily, # 30 tablet, 0 Refills, Maintenance, 11/12/19 11:51:00 EDT, Tablet, [facility], 184, cm, 11/11/19 20:33:00 EDT, Height, 100, kg, 11/07/19 9:02:00 EDT, Dry Weight Start Date: 11/12/19 Stop Date: 12/12/19 Status: OrderedCANE -1, FOR UNSTEADY GAIT CANE -1, FOR UNSTEADY GAIT, See Instructions, # 1 Unknown, Refills 0, Tot. Refills 0, Maintenance, ONE CANE FOR UNSTEADY GAIT, 08/08/19 9:46:00 EST, Supply Start Date: 08/08/19 Status: OrderedcloNIDine 0.1 mg oral tablet 0.3 mg, 3, tablet, By Mouth, 3 times a day, # 270 tablet, Refills 0, Tot. Refills 0, Maintenance, 11/12/19 11:51:00 EDT, Route to Pharmacy Electronically, [facility], 184, cm, 11/11/19 20:33:00 EDT, Height, 100, kg, 11/07/19 9:02:00 EDT,... Start Date: 11/12/19 Stop Date: 12/12/19 Status: OrderedDiabetic Shoes and diabetic foot inserts with right toe fillers. One pair (2 shoes). Diabetic Shoes and diabetic foot inserts with right toe fillers. One pair (2 shoes)., See Instructions, # 2 each, Refills 0, Tot. Refills 0, Maintenance, Diagnosis: Diabetic foot ulcers with partial amputations, 11/12/19 11:45:00 EDT, Supply Start Date: 11/12/19 Status: Ordereddoxycycline 20 mg oral capsule 1 capsule = 20 mg, By Mouth, 2 times a day, # 20 capsule, 0 Refills, Maintenance, 11/12/19 12:00:00 EDT, Capsule, [facility], 184, cm, 11/11/19 20:33:00 EDT, Height, 100, kg, 11/07/19 9:02:00 EDT, Dry Weight Start Date: 11/12/19 Stop Date: 11/22/19 Status: Orderedfolic acid 1 mg oral tablet 1 mg, 1, tablet, By Mouth, Daily, # 30 tablet, Refills 0, Tot. Refills 0, Maintenance, 11/12/19 11:51:00 EDT, Route to Pharmacy Electronically, [facility], 184, cm, 11/11/19 20:33:00 EDT,Height, 100, kg, 11/07/19 9:02:00 EDT, Dry Weight Start Date: 11/12/19 Status: Orderedinsulin lispro 100 u/ml subcutaneous injection See Instructions, 7-21 units Subcutaneous Injection 3 times a day before meals, # 15 mL, 0 Refills, Maintenance, 11/12/19 11:53:00 EDT, Injection, [facility], << Sliding Scale Comments >>; 80 - 129 7 units Call if less than 100; 130 -... Start Date: 11/12/19 Status: OrderedLantus 100 u/ml subcutaneous solution = 65 units, Subcutaneous Injection, Daily at bedtime, # 15 mL, 0 Refills, Maintenance, 11/12/19 11:52:00 EDT, Injection, [facility], 184, cm, 11/11/19 20:33:00 EDT, Height, 100, kg, 11/07/19 9:02:00 EDT, Dry Weight Start Date: 11/12/19 Stop Date: 12/12/19 Status: Orderedlisinopril 40 mg oral tablet 1 tablet = 40 mg, By Mouth, Daily, # 30 tablet, 0 Refills, Maintenance, 11/12/19 11:53:00 EDT, Tablet, [facility] 3, 184, cm, 11/11/19 20:33:00 EDT, Height, 100, kg, 11/07/19 9:02:00 EDT, Dry Weight Start Date: 11/12/19 Stop Date: 12/12/19 Status: Orderedmethadone 10 mg oral tablet 4 tablet = 40 mg, By Mouth, Daily, 0 Refills, Maintenance, 11/12/19 11:53:00 EDT, Tablet, Partial fill upon patient request Start Date: 11/12/19 Status: Orderedmultivitamin Multiple Vitamins oral capsule 1 capsule, By Mouth, Daily, # 30 capsule, 0 Refills, Maintenance, 11/12/19 11:53:00 EDT, Capsule, [facility], 1 capsule By Mouth Daily,x30 days, 184, cm, 11/11/19 20:33:00 EDT, Height, 100, kg, 11/07/19 9:02:00 EDT, Dry Weight Start Date: 11/12/19 Stop Date: 12/12/19 Status: OrderedoxyCODONE 5 mg oral tablet 10 mg, 2, tablet, By Mouth, 4 times a day, PRN, for 3 days, # 20 tablet, Refills 0, Tot. Refills 0, Acute 11/15/19 11:53:00 EDT, Pain , Severe, 11/12/19 11:53:00 EDT, Route to Pharmacy Electronically, [facility], Partial fill upon patien... Start Date: 11/12/19 Stop Date: 11/15/19 Status: OrderedQUEtiapine 100 mg oral tablet 100 mg, 1, tablet, By Mouth, 2 times a day, # 60 tablet, Refills 0, Tot. Refills 0, Maintenance, 11/12/19 11:53:00 EDT, Route to Pharmacy Electronically, [facility], 184, cm, 11/11/19 20:33:00 EDT, Height, 100, kg, 11/07/19 9:02:00 EDT,... Start Date: 11/12/19 Stop Date: 12/12/19 Status: Orderedsilver topical gel See Instructions, Topically Daily for foot wounds care, # 1 each, 0 Refills, Maintenance, 11/12/19 11:54:00 EDT, Gel, [facility], Topically Daily for foot wounds care, 184, cm, 11/11/19 20:33:00 EDT, Height, 100, kg, 11/07/19 9:02:00 EDT... Start Date: 11/12/19 Status: Orderedthiamine 100 mg oral tablet 100 mg, 1, tablet, By Mouth, Daily, # 30 tablet, Refills 0, Tot. Refills 0, Maintenance, 11/12/19 11:54:00 EDT, Route to Pharmacy Electronically, [facility], 184, cm, 11/11/19 20:33:00 EDT, Height, 100, kg, 11/07/19 9:02:00 EDT, Dry Weight Start Date: 11/12/19 Status: Ordered Problem List Condition Effective Dates Status Health Status Informant Alcoholic cirrhosis of Active liver(Confirmed) Alcoholism(Confirmed)1 Active Amputation toe(Confirmed)2 Active Anxiety(Confirmed) Active Diabetes mellitus(Confirmed) Active Diabetic foot ulcer(Confirmed) Active Hyperglycemia(Confirmed) Active Hyperkalemia(Confirmed) Active Hypertension(Confirmed) Active [...] surgical treatment for compartment syndrome.2rt 2 nd Results Orders for Microbiology Reports Name Date Blood Culture 11/06/19 Blood Culture #2 11/06/19 Microbiology Reports TEST:Blood Culture, Second Order STATUS:Auth (Verified) BODY SITE: SOURCE:Blood COLLECTED DATE/TIME:11/06/19 7:04 PMBlood Culture, Second Order SPECIMEN DESCRIPTION : BLOOD LAC SPECIAL REQUESTS : NONE CULTURE : NO GROWTH 5 DAYS. REPORT STATUS : FINAL 11/11/2019TEST:Blood Culture STATUS:Auth (Verified) BODY SITE: SOURCE:Blood COLLECTED DATE/TIME:11/06/19 5:19 PMBlood Culture SPECIMEN DESCRIPTION : BLOOD LEFT SPECIAL REQUESTS : NONE CULTURE : NO GROWTH 5 DAYS. REPORT STATUS : FINAL 11/11/2019Radiology Reports Exam Date Time Procedure Performing Provider Status 11/06/19 5:05 PM Foot Min 3 Views Right Jenae Lau; Auth (Verified) Notes:(Foot Min 3 Views Right) Reason For Exam: with Pain;InfectionRESULT: Foot Min 3 Views Right Right foot 3 views dated November 06, 2019. Comparison films are from October 13, 2019. HISTORY: Infection. FINDINGS: This examination shows transmetatarsal amputation of all 5 metatarsals with only minimal amounts of the proximal bones remaining. Soft tissue swelling is demonstrated. Surgical clips are noted. There is minimal loss of joint space and minimal osteophyte formation. The amputation margins are smooth. No bony erosion is demonstrated. IMPRESSION: Stable transmetatarsal amputations. No evidence of osteomyelitis by plain film. Examination 86501. Thank you for allowing me to participate in the care of this patient. WSN: [id number] Ordering Physician: Sofie Bob Dictated By: Nehemias Chew MD Dictated Date/Time: 11/06/19 5:15 pm Reviewed By: Nehemias Chew MD Signed By: Nehemias Chew MD Signed Date/Time: 11/06/19 5:15 pm Transcribed By: HAKEEM Transcribed Date/Time: 11/06/19 5:15 pm Exam Date Time Procedure Performing Provider Status 11/06/19 5:05 PM Foot Min 3 Views Left Jenae Lau; Auth ( Verified) Notes:(Foot Min 3 Views Left) Reason For Exam: with Pain;InfectionRESULT: Foot Min 3 Views Left Left foot 3 views dated November 06, 2019. Comparison films are from October 13, 2019. HISTORY: Infection. FINDINGS: This examination shows fixation screws in the talonavicular joint and in the calcaneal cuboid joint. There is fusion of both of these locations. A staple is present in the first metatarsal. Partial amputation of the fourth and fifth metatarsals are noted. The resection margins are tapered and smooth. Soft tissue defects are noted in the lateral aspect of the foot. Some subcutaneous gas is seen. IMPRESSION: No evidence of acute osseous abnormality. No plain film evidence of osteomyelitis. Stable postoperative changes. Examination [id number]. Thank you for allowing me to participate in the care of this patient. WSN: [id number] Ordering Physician: Sofie Bob Dictated By: Nehemias Chew MD Dictated Date/Time: 11/06/19 5:15 pm Reviewed By: Nehemias Chew MD Signed By: Nehemias Chew MD Signed Date/Time: 11/06/19 5:15 pm Transcribed By: HAKEEM Transcribed Date/Time: 11/06/19 5:12 pm Vital Signs Most recent to oldest 1 2 3 [Reference Range]: Height 184 cm 184 cm 184 cm (11/11/19 8:33 PM) (11/11/19 2:44 PM) (11/11/19 9:37 A M) Weight 103.1 kg (11/07/19 8:58 AM) Oxygen Saturation [94-100 %] 98 % 94 % 97 % (11/12/19 8:00 AM) (11/12/19 4:00 AM) (11/11/19 8:33 P M) Pulse Rate [55-90 bpm] 76 bpm 66 bpm 62 bpm (11/12/19 8:00 AM) (11/12/19 4:00 AM) (11/11/19 8:33 P M) Body Mass Index [18.5-24.99] 30.45 *>HHI* (11/07/19 8:58 AM) Blood Pressure [90-138/55-84 121/70 mm Hg 121/70 mm Hg 121 /70 mm Hg mm Hg] (11/12/19 8:14 AM) (11/12/19 8:14 AM) (11/12/19 8:00 A M) Respiratory Rate [16-30 17 br/min 17 br/min 17 br/mi n br/min] (11/12/19 2:28 PM) (11/12/19 2:15 PM) (11/12/19 1:12 P M) Temperature [96.8-100.4 98 DegF 98.4 DegF 98.0 Deg F DegF] (11/12/19 8:00 AM) (11/12/19 4:00 AM) (11/11/19 8:33 P M) Liters per Minute 0 L/min (11/06/19 8:29 PM) Mode of Delivery (Oxygen) Room air Room air Room a ir (11/12/19 8:00 AM) (11/12/19 4:00 AM) (11/11/19 8:33 P M) Blood pressure sites Arm, left Arm, left Arm, left (11/12/19 8:00 AM) (11/12/19 4:00 AM) (11/11/19 8:33 P M) Temperature Route Oral Oral Oral (11/12/19 8:00 AM) (11/12/19 4:00 AM) (11/11/19 8:33 P M) Dry Weight 100 kg (11/07/19 8:58 AM) Weight Obtained Via Bed scale (11/07/19 8:58 AM) Dry Weight Obtained Via Patient/family stated (11/07/19 8:58 AM) Social History Social History Type Response Smoking Status Never smoker; Tobacco user i n household: No entered on: 11/28/17 Sex Male
--- OUTSIDE RECORDS SUMMARY | 2022-05-25 02:41 | XMS_ITS | Continuity of Care Document ---
:1970 Author Organization [facility] Address [address] [place] [address]- Care Team Providers Name Role Phone Anastacio SHAFER, Afshan Castellanos Primary Care Physician Encounter [facility] Date(s): 01/31/22 - 03/02/22 [facility] [address] [place] [id number] Attending Physician: Parker Negrete Admitting Physician: AdmtrParker Referring Physician: Admtr, Parker Allergies, Adverse Reactions, Alerts Substance Reaction Severity Status penicillin1, 2, 3, 4 rash Unknown Active aspirin rash Unknown Active ketorolac hives Unknown Active Naprosyn rash Unknown Active Compazine rash Unknown Active 1Tolerated extended course of pip/tazo during November 2020 [id number] tolerated ampicillin/sulbactam during 01/2020 [id number] has tolerated piperacillin/tazobactam (08/09/15), cephalexin (01/19/16) and cefazolin (many occa sions).4patient tolerates meropenem Immunizations Given and Recorded Vaccine Date Status Refusal Reason SARS-CoV-2 (COVID-19) mRNA-1273 vaccine 05/21/21 Recorded SARS-CoV-2 (COVID-19) mRNA-1273 vaccine 05/10/21 Recorded SARS-CoV-2 (COVID-19) mRNA-1273 vaccine 03/02/21 Recorded influenza virus vaccine, inactivated 04/21/21 Recorded influenza virus vaccine, inactivated 07/10/16 Given SARS-CoV-2 (COVID-19) mRNA BNT-162b2 vac 10/08/20 Recorde d tetanus/diphtheria/pertussis, acel(Tdap) 03/12/16 Given hepatitis B adult [...] Daily, # 30 tablet, 0 Refills, Maintenance, 01/17/22 9:39:00 EDT, Tablet, [facility], Partial fill upon patient request if the prescription is for a schedule II opioid drug., 182.88, cm, 01/16/22 23:00:00 EDT,... Start Date: 01/17/22 Stop Date: 02/16/22 Status: OrderedcloNIDine 0.2 mg oral tablet 0.2 mg, 1, tablet, By Mouth, 3 times a day, # 90 tablet, Refills 0, Tot. Refills 0, Maintenance, 01/17/22 9:39:00 EDT, Route to Pharmacy Electronically, [facility], Partial fill upon patient request if the prescription is for a schedule... Start Date: 01/17/22 Stop Date: 02/16/22 Status: Orderedgabapentin 300 mg oral capsule 600 mg, 2, capsule, By Mouth, 3 times a day, # 180 capsule, Refills 0, Tot. Refills 0, Maintenance, 01/17/22 9:39:00 EDT, Route to Pharmacy Electronically, [facility], Partial fill upon patient request if the prescription is for a schedu... Start Date: 01/17/22 Stop Date: 02/16/22 Status: Orderedinsulin glargine 100 units/mL subcutaneous solution = 80 units, Subcutaneous Injection, Daily at bedtime, # 10 mL, 0 Refills, Maintenance, 01/17/22 9:40:00 EDT, Injection, [facility], Partial fill upon patient request if the prescription is for a schedule II opioid drug., 182.88, cm, 01/03... Start Date: 01/17/22 Stop Date: 02/16/22 Status: Orderedinsulin lispro 100 units/mL injectable solution 18-30 units, Subcutaneous Injection, 3 times a day before meals, << Sliding Scale Comments >> 150 - 199 18 units Call if less than 70 200 - 249 21 units 250 - 299 24 units 300 - 349 27 units 350 - 399 30 units Call if greater than 40... Start Date: 01/17/22 Stop Date: 02/16/22 Status: OrderedLasix 40 mg oral tablet 40 mg, 1, tablet, By Mouth, 2 times a day, # 60 tablet, Refills 0, Tot. Refills 0, Maintenance, 01/17/22 9:39:00 EDT, Route to Pharmacy Electronically, [facility], Partial fill upon patient request if the prescription is for a schedule I... Start Date: 01/17/22 Stop Date: 02/16/22 Status: OrderedMethadone = 100 mg, By Mouth, Daily, 0 Refills, Maintenance, 01/19/22 11:38:00 EDT, Partial fill upon patient request if the prescription is for a schedule II opioid drug. Start Date: 01/19/22 Status: OrderedQUEtiapine 100 mg oral tablet 100 mg, 1, tablet, By Mouth, 2 times a day, # 60 tablet, Refills 0, Tot. Refills 0, Maintenance, 01/17/22 9:42:00 EDT, Route to Pharmacy Electronically, [facility], Partial fill upon patient request if the prescription is for a schedule... Start Date: 01/17/22 Stop Date: 02/16/22 Status: OrderedVitamin B1 100 mg oral tablet 100 mg, 1, tablet, By Mouth, Daily, Refills 0, Maintenance, 01/19/22 10:56:00 EDT, Partial fill uponpatient request if the prescription is for a schedule II opioid drug. 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 Also had alcohol withdrawal as part of surgical treatment for compartment syndrome.2rt 2 Social History Social History Type Response Smoking Status Never (less than 100 in life time) entered on: 05/02/20 Sex Patient Care team information PersonnelName: Anastacio SHAFER, Afshan Castellanos Address: Address: [address] [place] [address], [address] [place], [place] [address]
--- OUTSIDE RECORDS SUMMARY | 2022-05-25 02:41 | XMS_ITS | Continuity of Care Document ---
:1970 Author Organization [facility] Address [address] [place] [address]- Care Team Providers Name Role Phone Quincy SHAFER, Lis Castellanos Primary Care Physician [facility]counter [facility] Date(s): 01/15/20 - 01/27/[address] [address]- [facility] Encounter Diagnosis Unable to ambulate (Final) - 01/13/20 Skin ulcers of foot, bilateral (Final) - 01/13/20 Discharge Disposition: A-D/C AMA Attending Physician: Jenna Hathaway DO Admitting Physician: Jennifer Owen MD Referring Physician: Not on Staff, Referring [...] want, does not do flu shot Medications acamprosate 333 mg oral delayed release tablet 2 tablet = 666 mg, By Mouth, 3 times a day, # 180 tablet, 0 Refills, Maintenance, 12/31/19 22:52:00 EDT, CR Tablet Start Date: 12/31/19 Status: Orderedatorvastatin 10 mg oral tablet 1 tablet = 10 mg, By Mouth, Daily, # 30 tablet, 0 Refills, Maintenance, 11/21/19 13:34:00 EDT, Tablet, [facility], 185, cm, 11/21/19 8:47:00 EDT, Height, 104, kg, 11/17/19 18:28:00 EDT, Dry Weight Start Date: 11/21/19 Stop Date: 12/21/19 Status: OrderedclonazePAM 1 mg oral tablet 1 tablet = 1 mg, By Mouth, 2 times a day, PRN Anxiety, # 10 tablet, 0 Refills, Maintenance, 12/02/2010:54:00 EDT, Tablet, [facility], 186, cm, 11/27/19 22:48:00 EDT, Height, 100, kg, 11/27/19 22:48:00 EDT, Dry Weight Start Date: 12/03/19 Stop Date: 12/08/19 Status: OrderedcloNIDine 0.1 mg oral tablet 0.2 mg, 2, tablet, By Mouth, 3 times a day, # 180 tablet, Refills 0, Tot. Refills 0, Maintenance, 01/08/20 10:01:00 EDT, Route to Pharmacy Electronically, [facility], 186, cm, 01/07/20 23:30:00 EDT, Height, 97.7, kg, 12/31/19 20:13:00 ED... Start Date: 01/08/20 Stop Date: 02/07/20 Status: Orderedfolic acid 1 mg oral tablet 1 mg, 1, tablet, By Mouth, Daily, # 30 tablet, Refills 0, Tot. Refills 0, Maintenance, 11/12/19 11:51:00 EDT, Route to Pharmacy Electronically, [facility], 184, cm, 06/08/20 20:33:00 EDT,Height, 100, kg, 11/07/19 9:02:00 EDT, Dry Weight Start Date: 11/12/19 Status: Orderedinsulin lispro 100 u/ml subcutaneous injection See Instructions, 7-21 units Subcutaneous Injection 3 times a day before meals, # 15 mL, 0 Refills, Maintenance, 11/12/19 11:53:00 EDT, Injection, [facility], << Sliding Scale Comments >>; 80 - 129 7 units Call if less than 100; 130 -... Start Date: 11/12/19 Status: OrderedLantus Inj = 40 units, Subcutaneous Injection, Daily at bedtime, 0 Refills, Maintenance, 11/27/19 22:50:00 EDT,Injection Start Date: 11/27/19 Status: Orderedlisinopril 40 mg oral tablet 0.5 tablet = 20 mg, By Mouth, Daily, # 15 tablet, 0 Refills, Maintenance, 01/08/20 10:01:00 EDT, Tablet, [facility], 186, cm, 01/07/20 23:30:00 EDT, Height, 97.7, kg, 12/31/19 20:13:00 EDT, Dry Weight Start Date: 01/08/20 Stop Date: 02/07/20 Status: Orderedmethadone 10 mg oral tablet = 90 mg, By Mouth, Daily, 0 Refills, Maintenance, 11/21/19 13:37:00 EDT, Tablet, Partial fill upon patient request Start Date: 11/21/19 Status: Orderedmultivitamin Multiple Vitamins oral capsule 1 capsule, By Mouth, Daily, # 30 capsule, 0 Refills, Maintenance, 11/12/19 11:53:00 EDT, Capsule, [email or web address], 1 capsule By Mouth Daily,x30 days, 184, cm, 11/11/19 20:33:00 EDT, Height, 100, kg, 11/07/19 9:02:00 EDT, Dry Weight Start Date: 11/12/19 Stop Date: 12/12/19 Status: OrderedNeurontin 100 mg oral capsule 300 mg, 3, capsule, By Mouth, 3 times a day, # 270 capsule, Refills 0, Tot. Refills 0, Maintenance, 01/08/20 10:02:00 EDT, Route to Pharmacy Electronically, [facility], 186, cm, 01/07/20 23:30:00 EDT, Height, 97.7, kg, 12/31/19 20:13:00... Start Date: 01/08/20 Status: OrderedQUEtiapine 100 mg oral tablet 100 mg, 1, tablet, By Mouth, 2 times a day, # 60 tablet, Refills 0, Tot. Refills 0, Maintenance, 11/21/19 13:34:00 EDT, Route to Pharmacy Electronically, [facility], 185, cm, 11/21/19 8:47:00 EDT, Height, 104, kg, 11/17/19 18:28:00 EDT,... Start Date: 11/21/19 Stop Date: 12/21/19 Status: Ordered Problem List Condition Effective Dates [...] surgical treatment for compartment syndrome.2rt 2 nd Vital Signs Most recent to oldest 1 2 3 [Reference Range]: Height 186 cm 186 cm 186 cm (01/27/20 3:56 PM) (01/27/20 12:24 PM) (01/27/20 12 :12 PM) Weight 103.1 kg (01/15/20 8:10 PM) Oxygen Saturation [94-100 %] 98 % 99 % 99 % (01/27/20 3:56 PM) (01/27/20 12:12 PM) (01/27/20 8: 04 AM) Pulse Rate [55-90 bpm] 85 bpm 70 bpm 62 bpm (01/27/20 3:56 PM) (01/27/20 12:12 PM) (01/27/20 8: 04 AM) Body Mass Index [18.5-24.99] 29.8 *H* (01/15/20 8:10 PM) Blood Pressure [90-138/55-84 113/66 mm Hg 80/50 mm Hg 76/ 45 mm Hg mm Hg] (01/27/20 3:56 PM) *L* *L* (01/27/20 12:24 PM) (01/27/20 12:1 2 PM) Respiratory Rate [16-30 16 br/min 16 br/min 18 br/mi n br/min] (01/27/20 5:36 PM) (01/27/20 5:36 PM) (01/27/20 3:5 6 PM) Temperature [96.8-100.4 98.0 DegF 97.7 DegF 98.5 Deg F DegF] (01/27/20 3:56 PM) (01/27/20 12:12 PM) (01/27/20 8: 04 AM) Liters per Minute 0 L/min 0 L/min 0 L/min (01/25/20 11:56 AM) (01/25/20 8:07 AM) (01/14/20 6: 02 PM) Mode of Delivery (Oxygen) Room air Room air Room a ir (01/27/20 3:56 PM) (01/27/20 12:12 PM) (01/27/20 8: 04 AM) Blood pressure sites Arm, left Arm, left Arm, left (01/27/20 3:56 PM) (01/27/20 12:24 PM) (01/27/20 12 :12 PM) Temperature Route Oral Oral Oral (01/27/20 3:56 PM) (01/27/20 12:12 PM) (01/27/20 8: 04 AM) Dry Weight 103.1 kg (01/15/20 8:10 PM) Weight Obtained Via b (01/15/20 8:10 PM) Social History Social History Type Response Smoking Status Never smoker; Tobacco user i n household: No entered on: 11/28/17 Sex
--- OUTSIDE RECORDS SUMMARY | 2022-05-25 02:41 | XMS_ITS | Continuity of Care Document ---
:1970 Author Organization 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 Discharge Disposition: A-D/C Home Attending Physician: Azra Donnelly MD Admitting Physician: Azra Donnelly MD Referring Physician: Not on Staff, Referring MD Allergies, Adverse Reactions, Alerts Substance Reaction Severity Status ketorolac hives Unknown Active Naprosyn rash Unknown Active penicillin1, 2, 3, 4 rash Unknown Active aspirin rash Unknown Active Compazine rash Unknown Active 1Tolerated extended course of pip/tazo during November 2020 [id number] tolerated ampicillin/sulbactam during 01/2020 [id number] has tolerated piperacillin/tazobactam (08/09/15), cephalexin (01/19/16) and [...] 0 Refills, Maintenance, 01/17/22 9:39:00 EDT, Tablet, [facility], Partial fill upon patient request if the prescription is for a schedule II opioid drug., 182.88, cm, 01/16/22 23:00:00 EDT,... Start Date: 01/17/22 Stop Date: 02/16/22 Status: OrderedcloNIDine 0.2 mg oral tablet 0.2 mg, 1, tablet, By Mouth, 3 times a day, # 90 tablet, Refills 0, Tot. Refills 0, Maintenance, 01/17/22 9:39:00 EDT, Route to Pharmacy Electronically, [facility], Partial fill upon patient request if the prescription is for a schedule... Start Date: 01/17/22 Stop Date: 02/16/22 Status: Orderedgabapentin 300 mg oral capsule 600 mg, 2, capsule, By Mouth, 3 times a day, # 180 capsule, Refills 0, Tot. Refills 0, Maintenance, 01/17/22 9:39:00 EDT, Route to Pharmacy Electronically, [facility], Partial fill upon patient request if the prescription is for a schedu... Start Date: 01/17/22 Stop Date: 02/16/22 Status: Orderedgabapentin 300 mg oral capsule 600 mg, Capsule, By Mouth, 03/14/22 9:00:00 EDT Start Date: 03/14/22 Stop Date: 03/14/22 Status: Completedinsulin glargine 100 units/mL subcutaneous solution = 80 units, Subcutaneous Injection, Daily at bedtime, # 10 mL, 0 Refills, Maintenance, 01/17/22 9:40:00 EDT, Injection, [facility], Partial fill upon patient request [...] 01/17/22 9:39:00 EDT, Route to Pharmacy Electronically, [facility], Partial fill upon patient request if the prescription is for a schedule I... Start Date: 01/17/22 Stop Date: 02/16/22 Status: OrderedMethadone = 100 mg, By Mouth, Daily, 0 Refills, Maintenance, 01/19/22 11:38:00 EDT, Partial fill upon patient request if the prescription is for a schedule II opioid drug. Start Date: 01/19/22 Status: OrderedMethadone Liquid 140 mg, Solution, By Mouth, verified on paper form from [facility], 03/14/22 9:00:00 EDT Start Date: 03/14/22 Stop Date: 03/14/22 Status: CompletedoxyCODONE 5 mg oral tablet 10 mg, Tablet, By Mouth, Every 6 hours, PRN for Pain , Severe, Routine, 03/11/22 7:32:00 EDT Start Date: 03/11/22 Stop Date: 03/14/22 Status: DiscontinuedQUEtiapine 100 mg oral tablet 100 mg, 1, tablet, By Mouth, 2 times a day, # 60 tablet, Refills 0, Tot. Refills 0, Maintenance, 01/17/22 9:42:00 EDT, Route to Pharmacy Electronically, [facility], Partial fill upon patient request [...] 2 nd Vital Signs Most recent to 1 2 3 4 5 oldest [Reference Range]: Oxygen Saturation 99 % 96 % 96 % [94-100 %] (03/14/22 12:27 PM) (03/14/22 9:52 AM) (03/14/22 5:08 AM) Pulse Rate [55-90 89 bpm 76 bpm 64 bpm bpm] (03/14/22 12:27 PM) (03/14/22 9:52 AM) (03/14/22 5:08 AM) Blood Pressure 129/84 mm Hg 162/97 mm Hg 158/96 mm Hg [90-138/55-84 mm Hg] (03/14/22 12:27 PM) *H* *H* (03/14/22 9:52 AM) (03/14/22 5:08 AM) Respiratory Rate 18 br/min 18 br/min 18 br/min 18 br/min 18 br/mi n [16-30 br/min] (03/14/22 12:27 PM) (03/14/22 9:52 AM) (03/14/22 9:4 4 AM) (03/14/22 9:44 AM) (03/14/22 9:44 AM) Temperature 98.2 DegF 97.7 DegF 98.1 DegF [96.8-100.4 DegF] (03/14/22 12:27 PM) (03/14/22 9:52 AM) (03/13/22 8:0 6 AM) Liters per Minute 2 L/min 2 L/min 2 L/min (03/14/22 12:27 PM) (03/14/22 9:52 AM) (03/14/22 5:08 AM) Mode of Delivery Nasal cannula Nasal cannula Nasal cannula (Oxygen) (03/14/22 12:27 PM) (03/14/22 9:52 AM) (03/14/22 5:08 AM) Blood pressure sites Arm, left Arm, right Arm, left (03/14/22 12:27 PM) (03/14/22 9:52 AM) (03/13/22 8:06 AM) Temperature Route Oral Oral Oral (03/14/22 12:27 PM) (03/14/22 9:52 AM) (03/13/22 8:06 AM) Social History Social History Type Response Smoking Status Never (less than 100 in life time) entered on: 05/02/20 Sex Patient Care team information PersonnelName: Anastacio SHAFER, Afshan Castellanos Address: Address: [address] [place] [address], [address] [place], [place] [address]
--- OUTSIDE RECORDS SUMMARY | 2022-05-25 02:41 | XMS_ITS | Continuity of Care Document ---
:1970 Author Organization [facility] Address [address] [place] [id number]- Care Team Providers Name Role Phone Not on Staff, PCP Primary Care Physician Unavailable Encounter [facility] Date(s): 11/30/19 - 12/03/[address] [address]- [facility] Encounter Diagnosis Chronic pain of both feet (Final) - 11/30/19 Discharge Disposition: A-D/C Home Attending Physician: Michelet Craig MD Admitting Physician: Mckayla Cruz DO Referring Physician: Not on Staff, Referring MD [...] 3 times a day, # 180 tablet, 1 Refills, Maintenance, 12/03/19 11:40:00 EDT, CR Tablet, [facility], 186, cm, 11/27/19 22:48:00 EDT, Height, 100, kg, 11/27/19 22:48:00 EDT, Dry Weight Start Date: 12/03/19 Status: Orderedatorvastatin 10 mg oral tablet 1 tablet = 10 mg, By Mouth, Daily, # 30 tablet, 0 Refills, Maintenance, 11/21/19 13:34:00 EDT, Tablet, [facility], 185, cm, 11/21/19 8:47:00 EDT, Height, 104, kg, 11/17/19 18:28:00 EDT, Dry Weight Start Date: 11/21/19 Stop Date: 12/21/19 Status: Orderedclindamycin 300 mg oral capsule 1 capsule = 300 mg, By Mouth, Every 8 hours, for 14 days, # 42 capsule, 0 Refills, Acute 12/17/19 11:57:00 EDT, 12/03/19 11:57:00 EDT, Capsule, [facility], 186, cm, 11/27/19 22:48:00 EDT,Height, 100, kg, 11/27/19 22:48:00 EDT, Dry Weight Start Date: 12/03/19 Stop Date: 12/17/19 Status: OrderedclonazePAM 1 mg oral tablet 1 tablet = 1 mg, By Mouth, 2 times a day, PRN Anxiety, # 10 tablet, 0 Refills, Maintenance, 12/02/2010:54:00 EDT, Tablet, [facility], 186, cm, 11/27/19 22:48:00 EDT, Height, 100, kg, 11/27/19 22:48:00 EDT, Dry Weight Start Date: 12/03/19 Stop Date: 12/08/19 Status: OrderedcloNIDine 0.1 mg oral tablet 0.3 mg, 3, tablet, By Mouth, 3 times a day, # 270 tablet, Refills 0, Tot. Refills 0, Maintenance, 11/21/19 13:34:00 EDT, Route to Pharmacy Electronically, [facility], 185, cm, 11/21/19 8:47:00 EDT, Height, 104, kg, 11/17/19 18:28:00 EDT,... Start Date: 11/21/19 Stop Date: 12/21/19 Status: Orderedfolic acid 1 mg oral tablet 1 mg, 1, tablet, By Mouth, Daily, # 30 tablet, Refills 0, Tot. Refills 0, Maintenance, 11/12/19 11:51:00 EDT, Route to Pharmacy Electronically, [facility], 184, cm, 11/11/19 20:33:00 EDT,Height, 100, kg, 11/07/19 9:02:00 EDT, Dry Weight Start Date: 11/12/19 Status: Orderedinsulin lispro 100 u/ml subcutaneous injection See Instructions, 7-21 units Subcutaneous Injection 3 times a day before meals, # 15 mL, 0 Refills, Maintenance, 11/12/19 11:53:00 EDT, Injection, [facility], << Sliding Scale Comments >>; 80 - 129 7 units Call if less than 100; 130 -... Start Date: 11/12/19 Status: OrderedLantus Inj = 55 units, Subcutaneous Injection, Daily at bedtime, 0 Refills, Maintenance, 11/27/19 22:50:00 EDT,Injection Start Date: 11/27/19 Status: Orderedlisinopril 40 mg oral tablet 1 tablet = 40 mg, By Mouth, Daily, # 30 tablet, 0 Refills, Maintenance, 11/21/19 13:34:00 EDT, Tablet, [facility], 185, cm, 11/21/19 8:47:00 EDT, Height, 104, kg, 11/17/19 18:28:00 EDT, Dry Weight Start Date: 11/21/19 Stop Date: 12/21/19 Status: Orderedmethadone 10 mg oral tablet = 70 mg, By Mouth, Daily, 0 Refills, Maintenance, 11/21/19 13:37:00 EDT, Tablet, Partial fill upon patient request Start Date: 11/21/19 Status: Orderedmultivitamin Multiple Vitamins oral capsule 1 capsule, By Mouth, Daily, # 30 capsule, 0 Refills, Maintenance, 11/12/19 11:53:00 EDT, Capsule, [facility], 1 capsule By Mouth Daily,x30 days, 184, cm, 11/11/19 20:33:00 EDT, Height, 100, kg, 11/07/19 9:02:00 EDT, Dry Weight Start Date: 11/12/19 Stop Date: 12/12/19 Status: OrderedoxyCODONE 5 mg oral tablet 10 mg, 2, tablet, By Mouth, Every 6 hours, PRN, for 5 days, # 12 tablet, Refills 0, Tot. Refills 0, Acute 12/08/19 11:55:00 EDT, Pain , Severe, 12/03/19 11:55:00 EDT, Route to Pharmacy Electronically, [facility], Partial fill upon patien... Start Date: 12/03/19 Stop Date: 12/08/19 Status: OrderedQUEtiapine 100 mg oral tablet 100 mg, 1, tablet, By Mouth, 2 times a day, # 60 tablet, Refills 0, Tot. Refills 0, Maintenance, 11/21/19 13:34:00 EDT, Route to Pharmacy Electronically, [facility], 185, cm, 11/21/19 8:47:00 EDT, Height, 104, kg, 11/17/19 18:28:00 EDT,... Start Date: 11/21/19 Stop Date: 12/21/19 Status: Orderedthiamine 100 mg oral tablet 100 mg, 1, tablet, By Mouth, Daily, # 30 tablet, Refills 0, Tot. Refills 0, Maintenance, 11/21/19 13:34:00 EDT, Route to Pharmacy Electronically, [facility], 185, cm, 11/21/19 8:47:00 EDT, Height, 104, kg, 11/17/19 18:28:00 EDT, Dry Weight Start Date: 11/21/19 Status: Ordered Problem List Condition Effective Dates [...] for Microbiology Reports Name Date Blood Culture 11/30/19 Blood Culture #2 11/30/19 Microbiology Reports TEST:Blood Culture STATUS:Unauthenticated BODY SITE: SOURCE:Blood COLLECTED DATE/TIME:11/30/19 4:41 PMBlood Culture SPECIMEN DESCRIPTION : BLOOD LFT ARM SPECIAL REQUESTS : NONE CULTURE : NO GROWTH 3 DAYS REPORT STATUS : PRELIMINARY REPORT TEST:Blood Culture, Second Order STATUS:Unauthenticated BODY SITE: SOURCE:Blood COLLECTED DATE/TIME:11/30/19 4:40 PMBlood Culture, Second Order SPECIMEN DESCRIPTION : BLOOD NO SITE SPECIAL REQUESTS : NONE CULTURE : NO GROWTH 3 DAYS REPORT STATUS : PRELIMINARY REPORT Radiology Reports Exam Date Time Procedure Performing Provider Status 11/30/19 5:15 PM Foot Min 3 Views Left Guscott , Natasha; Auth (Ve rified) Notes:(Foot Min 3 Views Left) Reason For Exam: with Pain;TraumaRESULT: Foot Min 3 Views Left Foot Min 3 Views Left, 3 views Refer to EMR; Reason: Trauma; with Pain; Clinical Question(s): Osteomyelitis; Hx of Present Illness:Acute on chronic pain bilat foot wounds. Methadone dose was decreased. Reporting increased drainage.Afebril; Other Objective Findings: A+Ox3. speaking full clear sentences. Right foot toe amputated. 2large pressure ulcers with bloody drainage. left foot chronic wounds with increased drainage. 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 There is a bone anchor in the first metatarsus. Erosive changes of the distal fourth and fifth metatarsals similar to previous examination and possibly related to prior osteotomy or old osteomyelitis. No new focus of bone destruction to suggest acute osteomyelitis. Mild soft tissue swelling involving the lateral aspect of the forefoot. IMPRESSION: Stable postsurgical changes of hindfoot. Stable erosive changes of the fourth and fifth metatarsals. No new focus of bone destruction to suggest osteomyelitis. WSN: [id number] Ordering Physician: Sofie Bob Dictated By: Skyler Capellan MD Dictated Date/Time: 11/30/19 5:30 pm Reviewed By: Skyler Capellan MD Signed By: Skyler Capellan MD Signed Date/Time: 11/30/19 5:30 pm Transcribed By: HAKEEM Transcribed Date/Time: 11/30/19 5:27 pm Exam Date Time Procedure Performing Provider Status 11/30/19 5:15 PM Foot Min 3 Views Right Guscott , Natasha; Auth (V erified) Notes:(Foot Min 3 Views Right) Reason For Exam: with Pain;TraumaRESULT: Foot Min 3 Views Right Foot Min 3 Views Right Refer to EMR; Reason: Trauma; with Pain; Clinical Question(s): Osteomyelitis; Hx of Present Illness:Acute on chronic pain bilat foot wounds. Methadone dose was decreased. Reporting increased drainage.Afebril; Other Objective Findings: A+Ox3. speaking full clear sentences. Right foot toe amputated. 2large pressure ulcers with bloody drainage. left foot chronic wounds with increased drainage. De COMPARISON: Foot radiographs 11/16/19, 11/06/2019 FINDINGS: Status post transmetatarsal amputation from the first through fifth digits. Appearance is unchanged compared with prior exam. No acute osseous abnormality. There is soft tissue swelling overlying the stump with a few surgical clips. The degree of swelling appears similar to x-ray from 14 days ago. Suspect skin ulceration overlying the heel, however no abnormality of the calcaneus identified. IMPRESSION: 1. No acute osseous abnormality to suggest osteomyelitis. 2. Postsurgical changes of the forefoot with decreased soft tissue swelling in the forefoot and unchanged ulceration over the calcaneus. WSN: [id number] Ordering Physician: Sofie Bob Dictated By: Skyler Capellan MD Dictated Date/Time: 11/30/19 5:27 pm Reviewed By: Skyler Capellan MD Signed By: Skyler Capellan MD Signed Date/Time: 11/30/19 5:27 pm Transcribed By: HAKEEM Transcribed Date/Time: 11/30/19 5:21 pm Vital Signs Most recent to oldest 1 2 3 [Reference Range]: Oxygen Saturation [94-100 %] 98 % 98 % 98 % (12/03/19 6:26 AM) (12/02/19 9:59 PM) (12/02/19 2:0 0 PM) Pulse Rate [55-90 bpm] 66 bpm 56 bpm 51 bpm (12/03/19 6:26 AM) (12/02/19 9:59 PM) *L* (12/02/19 2:00 PM ) Blood Pressure [90-138/55-84 127/66 mm Hg 130/71 mm Hg 144 /79 mm Hg mm Hg] (12/03/19 8:14 AM) (12/03/19 6:26 AM) *H* (12/02/19 9:59 PM ) Respiratory Rate [16-30 18 br/min 18 br/min 18 br/mi n br/min] (12/03/19 12:01 PM) (12/03/19 8:15 AM) (12/03/19 8: 15 AM) Temperature [96.8-100.4 DegF] 97.8 DegF 97.9 DegF 97 .9 DegF (12/03/19 6:26 AM) (12/02/19 9:59 PM) (12/02/19 2:0 0 PM) Liters per Minute 0 L/min (11/30/19 10:35 PM) Mode of Delivery (Oxygen) Room air Room air Room a ir (12/03/19 6:26 AM) (12/02/19 9:59 PM) (12/02/19 2:0 0 PM) Blood pressure sites Arm, left Arm, left Arm, right (12/03/19 6:26 AM) (12/02/19 9:59 PM) (12/02/19 2:0 0 PM) Temperature Route Oral Oral Oral (12/03/19 6:26 AM) (12/02/19 9:59 PM) (12/02/19 2:0 0 PM) Social History Social History Type Response Smoking Status Never smoker; Tobacco user i n household: No entered on: 11/28/17 Sex
--- OUTSIDE RECORDS SUMMARY | 2022-05-25 02:41 | XMS_ITS | Continuity of Care Document ---
:1970 Author Organization [facility] Address [address] [place] [id number]- Care Team Providers Name Role Phone Not on Staff, PCP Primary Care Physician Unavailable Encounter [facility] Date(s): 10/26/20 - 01/06/[address] [id number] Encounter Diagnosis Diabetic foot infection (Final) - 10/26/20 Gastroparesis (Final) - 10/26/20 Discharge Disposition: Disch/Trans to IP Rehab or unit w/in Hos Attending Physician: Denver Cintron MD Admitting Physician: Damon Funes MD Referring Physician: Not on Staff, Referring MD Allergies, Adverse Reactions, Alerts Substance Reaction Severity Status penicillin1, 2, 3, 4 rash Unknown Active aspirin rash Unknown Active ketorolac hives Unknown Active Naprosyn rash Unknown Active Compazine rash Unknown Active 1Tolerated extended course of pip/tazo during November 2020 [id number] tolerated ampicillin/sulbactam during 01/2020 [id number] has tolerated piperacillin/tazobactam (08/09/15), cephalexin (01/19/16) and [...] II opioid drug. Start Date: 01/05/21 Status: OrderedGabapentin 50 mg/ml Liquid 600 mg, Liquid, PEG, 01/06/21 15:00:00 EDT Start Date: 01/06/21 Stop Date: 01/06/21 Status: Completedgabapentin 600 mg oral tablet 1 tablet = 600 mg, By Mouth, 3 times a day, # 21 tablet, 0 Refills, Maintenance, 03/18/20 11:06:00 EDT, Tablet, [facility], 183, cm, 03/18/20 7:55:00 EDT, Height, [...] 01/05/21 Status: Orderedmethadone 10 mg oral tablet 40 mg, Tablet, PEG, 01/06/21 15:00:00 EDT Start Date: 01/06/21 Stop Date: 01/06/21 Status: CompletedMilk of Magnesia Liquid 10 mL, PEG, 2 [...] 02/14/20 11:33:00 EDT, Route to Pharmacy Electronically, [facility], 186, cm, 02/14/20 11:26:00 [...] Results Orders for Microbiology Reports Name Date Fungal Culture, Respiratory 12/21/20 Sputum Culture w/ Gram Smear 12/20/20 Blood Culture 12/20/20 Blood Culture #2 12/20/20 Sputum Culture w/ Gram Smear (Culture Sputum w/ Gram S mear) 12/13/20 Sputum Culture w/ Gram Smear 12/11/20 Blood Culture 12/06/20 Blood Culture 12/06/20 Lower Resp Tract Culture w/ Gram Smear 12/05/20 Blood Culture 12/05/20 Microbiology Reports (Most Recent Ten) TEST:Fungal Culture, Respiratory STATUS:Auth (Verified) BODY SITE: SOURCE:EXPECT COLLECTED DATE/TIME:12/21/20 11:40 AMFungal Culture, Respiratory SPECIMEN DESCRIPTION : EXPECTORATED SPUTUM ENDOTRACHEAL SPECIAL REQUESTS : NONE DIRECT EXAM : NO FUNGAL ELEMENTS OBSERVED CULTURE : NO CRYPTOCOCCUS, NO FILAMENTOUS FUNGI ISOLATED REPORT STATUS : FINAL 01/04/2021TEST:Blood Culture, Second Order STATUS:Auth (Verified) BODY SITE: SOURCE:Blood COLLECTED DATE/TIME:12/20/20 2:55 PMBlood Culture, Second Order SPECIMEN DESCRIPTION : BLOOD RA SPECIAL REQUESTS : NONE CULTURE : NO GROWTH 5 DAYS. REPORT STATUS : FINAL 12/25/2020TEST:Blood Culture STATUS:Auth (Verified) BODY SITE: SOURCE:Blood COLLECTED DATE/TIME:12/20/20 1:25 PMBlood Culture SPECIMEN DESCRIPTION : BLOOD SPECIAL REQUESTS : NONE CULTURE : NO GROWTH 5 DAYS. REPORT STATUS : FINAL 12/25/2020TEST:Sputum Culture STATUS:Auth (Verified) BODY SITE: SOURCE:ENDOTR COLLECTED DATE/TIME:12/20/20 11:14 AMSputum Culture SPECIMEN DESCRIPTION : ENDOTRACHEAL ASPIRATE SPECIAL REQUESTS : NONE GRAM STAIN : 3+ POLYMORPHONUCLEAR LEUKOCYTES 1+ SQ.EPITHELIAL CELLS 4+ GRAM POSITIVE RODS 1+ GRAM POSITIVE COCCI CULTURE : 4+ NORMAL MAGDI REPORT STATUS : FINAL 12/22/2020TEST:Sputum Culture STATUS:Auth (Verified) BODY SITE: SOURCE:ENDOTR COLLECTED DATE/TIME:12/13/20 1:37 PMSputum Culture SPECIMEN DESCRIPTION : ENDOTRACHEAL ASPIRATE SPECIAL REQUESTS : NONE GRAM STAIN : 1+ SQ.EPITHELIAL CELLS 1+ POLYMORPHONUCLEAR LEUKOCYTES 1+ GRAM POSITIVE COCCI CULTURE : 2+ NORMAL MAGDI REPORT STATUS : FINAL 12/15/2020TEST:Sputum Culture STATUS:Auth (Verified) BODY SITE: SOURCE:ENDOTR COLLECTED DATE/TIME:12/11/20 5:41 PMSputum Culture SPECIMEN DESCRIPTION : ENDOTRACHEAL ASPIRATE SPECIAL REQUESTS : NONE GRAM STAIN : 1+ POLYMORPHONUCLEAR LEUKOCYTES 1+ TISSUE CELLS NO ORGANISMS SEEN CULTURE : NO GROWTH 2 DAYS REPORT STATUS : FINAL 12/13/2020TEST:Blood Culture STATUS:Auth (Verified) BODY SITE: SOURCE:Blood COLLECTED DATE/TIME:12/06/20 2:00 PMBlood Culture SPECIMEN DESCRIPTION : BLOOD R ARM SPECIAL REQUESTS : NONE CULTURE : NO GROWTH 5 DAYS. REPORT STATUS : FINAL 12/11/2020TEST:Blood Culture STATUS:Auth (Verified) BODY SITE: SOURCE:Blood COLLECTED DATE/TIME:12/06/20 2:00 PMBlood Culture SPECIMEN DESCRIPTION : BLOOD R HAND SPECIAL REQUESTS : NONE CULTURE : NO GROWTH 5 DAYS. REPORT STATUS : FINAL 12/11/2020TEST:Lower Respiratory Tract Culture STATUS:Auth (Verified) BODY SITE: SOURCE:BRONCH COLLECTED DATE/TIME:12/05/20 4:30 PMLower Respiratory Tract Culture SPECIMEN DESCRIPTION : BRONCHIAL ALVEOLAR LAVAGE LUNG LT LOWER LOBE SPECIAL REQUESTS : NONE GRAM STAIN : 1+ WHITE BLOOD CELLS NO ORGANISMS SEEN CULTURE : NO GROWTH 2 DAYS REPORT STATUS : FINAL 12/08/2020TEST:Blood Culture STATUS:Auth (Verified) BODY SITE: SOURCE:Blood COLLECTED DATE/TIME:12/05/20 12:25 PMBlood Culture SPECIMEN DESCRIPTION : BLOOD R SPECIAL REQUESTS : NONE CULTURE : NO GROWTH 5 DAYS. REPORT STATUS : FINAL 12/10/2020adiology Reports (Most Recent Ten) Exam Date Time Procedure Performing Provider Status 01/03/21 2:19 PM Chest Portable Marisela Child; Auth (Verified ) Notes:(Chest Portable) Reason For Exam: Shortness of BreathRESULT: Chest Portable Chest Portable AP upright at 1:59 PM REASON: Shortness of Breath; Clinical Question(s): Pneumonia / Pneumonia COMPARISON: 12/28/2020 FINDINGS: LINES AND TUBES: Tracheostomy tube and left upper extremity PICC in place. Multiple wires project over the patient. LUNGS AND PLEURA: Diffuse patchy interstitial and alveolar opacities, minimally improved from prior study. No pleural effusion. No pneumothorax. HEART, MEDIASTINUM AND TAVO: Unchanged. BONES AND SOFT TISSUES: No acute abnormality. IMPRESSION: Minimally improved aeration of both lungs. WSN: [id number] Ordering Physician: Selin Gardner Dictated By: Skyler Arevalo MD Dictated Date/Time: 01/03/21 4:30 pm Reviewed By: Skyler Arevalo MD Signed By: Skyler Arevalo MD Signed Date/Time: 01/03/21 4:30 pm Transcribed By: HAKEEM Transcribed Date/Time: 01/03/21 4:29 pm Exam Date Time Procedure Performing Provider Status 12/28/20 10:52 AM Chest Portable Lin Proctor; Sarahi (Verifie d) Notes:(Chest Portable) Reason For Exam: Other:RESULT: Chest Portable Chest Portable REASON: Pneumonia COMPARISON: 12/24/2020 FINDINGS: LINES AND TUBES: Tracheostomy tube in place. Left PICC projects over the SVC. Percutaneous gastrostomy tube in place. LUNGS AND PLEURA: Bilateral patchy opacities are unchanged from prior study. Lower lobe consolidations, with slight interval improvement from prior study. Blunting of the costophrenic angles persists. No pneumothorax. HEART, MEDIASTINUM AND TAVO: Heart is normal in size and is obscured by a pulmonary process. BONES AND SOFT TISSUES: No acute abnormality. IMPRESSION: Minimally improved aeration of the lower lungs, otherwise no significant change. I have personally reviewed the images and I agree with this report. WSN: [id number] Ordering Physician: Kera Mcrae Dictated By: Kye Alanis MD Dictated Date/Time: 12/28/20 11:50 a Reviewed By: Skyler Arevalo MD Signed By: Skyler Arevalo MD Signed Date/Time: 12/28/20 11:55 am Transcribed By: HAKEEM Transcribed Date/Time: 12/28/20 11:25 am Exam Date Time Procedure Performing Provider Status 12/24/20 9:39 AM Chest Portable Thomas Huang (Verified) Notes:(Chest Portable) Reason For Exam: Tachypnea, hypoxia;Other:RESULT: Chest Portable Chest Portable INDICATION: Acute hypoxic respiratory failure. COVID pneumonia. Suspected superimposed bacterial infection. COMPARISON: Multiple priors most recent 12/22/2020. CT chest 12/19/2020. FINDINGS: LINES AND TUBES: Tracheostomy tube in place. Unchanged right central venous catheter with tip in the superior SVC. Left upper extremity PICC with tip in the mid SVC. LUNGS AND PLEURA: No significant change of bilateral patchy opacities in the upper lungs. Progressively worsened bibasilar dense consolidation. Blunting of both costophrenic angles could be secondary to consolidation versus pleural effusion. No pneumothorax. HEART, MEDIASTINUM AND TAVO: Cardiac silhouette obscured by pulmonary disease. Normal upper mediastinal and hilar contour. BONES AND SOFT TISSUES: No acute abnormality. IMPRESSION: Progressively worsened bibasilar dense consolidation. I have personally reviewed the images and I agree with this report. WSN: [id number] Ordering Physician: Sarah Madrigal Dictated By: Kinjal Hurt MD Dictated Date/Time: 12/24/20 10:27 a Reviewed By: Willie Ortega MD, V Signed By: Willie Ortega MD, V Signed Date/Time: 12/24/20 10:32 am Transcribed By: HAKEEM Transcribed Date/Time: 12/24/20 9:58 am Exam Date Time Procedure Performing Provider Status 12/22/20 10:53 AM Chest Portable Jenni Lewis (Verifi ed) Notes:(Chest Portable) Reason For Exam: Tube PlacementRESULT: Chest Portable Chest Portable Reason: Tube Placement; Clinical Question(s): Pneumothorax COMPARISON: 12/22/2020 FINDINGS: LINES AND TUBES: Tracheostomy tube tip 3 cm above the evert. Central venous catheter tip in the SVC. Enteric tube has been removed. LUNGS AND PLEURA: Patchy density both lung gibbons similar to previous exam. These are compatible with history of a RDS. No pleural effusion. No pneumothorax. HEART, MEDIASTINUM AND TAVO: Mild prominence of the cardiac silhouette, unchanged. Normal upper mediastinal and hilar contour. BONES AND SOFT TISSUES: No acute abnormality. IMPRESSION: No pneumothorax. Lines and tubes as above. WSN: [id number] Ordering Physician: Arian Hussein Dictated By: Ramone Longoria MD Dictated Date/Time: 12/22/20 1:13 pm Reviewed By: Ramone Longoria MD Signed By: Ramone Longoria MD Signed Date/Time: 12/22/20 1:13 pm Transcribed By: HAKEEM Transcribed Date/Time: 12/22/20 1:11 pm Exam Date Time Procedure Performing Provider Status 12/22/20 12:21 AM Chest Portable Olivia Booker; Auth (Verified) Notes:(Chest Portable) Reason For Exam: high plateau pressures, concern for pneumothorax;Other:RESULT: Chest Portable Chest Portable Reason: Other:; high plateau pressures, concern for pneumothorax; Clinical Question(s): Pneumothorax COMPARISON: Multiple prior chest examinations the latest dated 12/20/2020. FINDINGS: LINES AND TUBES: ET tube, nasogastric tube and left-sided PICC line remain in place unchanged as well as a right IJ central venous catheter. LUNGS AND PLEURA: Lungs again demonstrate moderate to severe groundglass opacities right greater than left essentiallyunchanged. There is some sparing of the left upper lobe unchanged. There may be small bilateral pleural effusions appearing. No pneumothorax. HEART, MEDIASTINUM AND TAVO: The heart remains normal in size and unchanged. Normal upper mediastinal and hilar contour. BONES AND SOFT TISSUES: No acute abnormality. IMPRESSION: Bilateral parenchymal opacities, right worse than left compatible with history of ARDS without significant change since the prior examinations and CT of the chest. WSN: [id number] Ordering Physician: Sylvie Muniz Dictated By: Willie Ortega MD, V Dictated Date/Time: 12/22/20 8:14 am Reviewed By: Willie Ortega MD, V Signed By: Willie Ortega MD, V Signed Date/Time: 12/22/20 8:14 am Transcribed By: HAKEEM Transcribed Date/Time: 12/22/20 8:10 am Exam Date Time Procedure Performing Provider Status 12/20/20 11:00 AM Chest Portable Martha Downey; Auth (Verifi ed) Notes:(Chest Portable) Reason For Exam: Fever/Increased White CountRESULT: Chest Portable Chest Portable Reason: Fever Increased White Count; Clinical Question(s): Pneumonia; ARDS. COMPARISON: 12/17 and 12/13, correlation with CT of the chest 12/19/2020. FINDINGS: LINES AND TUBES: ET tube, nasogastric tube and left-sided PICC line remain in place unchanged as well as a right IJ line. LUNGS AND PLEURA: Lungs again demonstrate moderate to severe ground glass opacity, right greater than left and with relative sparing of the left upper lobe. No pleural effusion. No pneumothorax. HEART, MEDIASTINUM AND TAVO: Heart is normal in size. Normal upper mediastinal and hilar contour. BONES AND SOFT TISSUES: No acute abnormality. IMPRESSION: Bilateral parenchymal opacities, right worse than left, compatible with history of ARDS and without significant change since recent prior x-rays and CT. WSN: [id number] Ordering Physician: Angie Reyes Dictated By: Hina Brewer MD, I Dictated Date/Time: 12/20/20 11:32 a Reviewed By: Hina Brewer MD, I Signed By: Hina Brewer MD, I Signed Date/Time: 12/20/20 11:32 am Transcribed By: HAKEEM Transcribed Date/Time: 12/20/20 11:26 am Exam Date Time Procedure Performing Provider Status 12/17/20 1:44 PM Chest Portable Crystal Zamorano; Sarahi (Arthur ified) Notes:(Chest Portable) Reason For Exam: Other:RESULT: Chest Portable Chest Portable REASON: ARDS COMPARISON: 12/13/2020, 12/11/2020, CT chest 12/12/2020. FINDINGS: LINES AND TUBES: Endotracheal tube terminates 2.3 cm above the evert. Left upper extremity PICC line and right IJ central venous catheter with the terminating at the cavoatrial junction. Enteric tube courses below thediaphragm with its tip near the proximal gastric body. LUNGS AND PLEURA: Low lung volumes. Dense left lower lobe opacity with air bronchograms. Stable right basilar opacities. Normal pulmonary vascularity. Small left pleural effusion. No pneumothorax. HEART, MEDIASTINUM AND TAVO: Heart is normal in size. Normal upper mediastinal and hilar contour. The mediastinum is noted along the left aspect of the mediastinum, better appreciated on the most recent CT. BONES AND SOFT TISSUES: No acute abnormality. IMPRESSION: Worsening left basilar opacities, which may represent a combination of atelectasis, pneumonia and pleural effusion. Otherwise no change. I have personally reviewed the images and I agree with this report. WSN: [id number] Ordering Physician: Cris Parsons Dictated By: Hany Watt MD Dictated Date/Time: 12/17/20 2:39 pm Reviewed By: Willie Ortega MD, V Signed By: Willie Ortega MD, V Signed Date/Time: 12/17/20 2:44 pm Transcribed By: HAKEEM Transcribed Date/Time: 12/17/20 2:34 pm Exam Date Time Procedure Performing Provider Status 12/13/20 5:59 AM Chest Portable Olivia Booker; Sarahi (Verified) Notes:(Chest Portable) Reason For Exam: f/u pneumomediastinum;Other:RESULT: Chest Portable Chest Portable performed semiupright at 4:59 AM Reason: Other:; f u pneumomediastinum; Clinical Question(s): Other:; f u pneumomediastinum COMPARISON: Multiple prior chest x-rays, the most recent of which is dated 12/11/2020. Correlation is also made CT angiogram of the chest dated 12/12/2020. FINDINGS: LINES AND TUBES: The endotracheal tube tip is seen approximately 2.5 cm above the evert. An enteric tube extends to the stomach. There is a right IJ central venous catheter with tip over the SVC. There is a left PICC with tip over the SVC. LUNGS AND PLEURA: Opacities are seen throughout both lungs which are not significantly changed since yesterday chest CT. No pleural effusion. No pneumothorax. HEART, MEDIASTINUM AND TAVO: Heart is normal in size. Pneumomediastinum seen along the left aspect of the mediastinum. This finding is better visualized on the recent CT. BONES AND SOFT TISSUES: No acute abnormality. IMPRESSION: 1. Tubes and lines as above. 2. Pneumomediastinum, better visualized on the recent CT. 3. Diffuse airspace disease which is not significantly changed since the recent CT. WSN: [id number] Ordering Physician: Sylvie Muniz Dictated By: Angelique Larson MD Dictated Date/Time: 12/13/20 10:12 a Reviewed By: Angelique Larson MD Signed By: Angelique Larson MD Signed Date/Time: 12/13/20 10:12 am Transcribed By: HAKEEM Transcribed Date/Time: 12/13/20 10:07 am Exam Date Time Procedure Performing Provider Status 12/11/20 7:28 PM Chest Portable Paola Lu (Verified ) Notes:(Chest Portable) Reason For Exam: Shortness of BreathRESULT: Chest Portable Chest Portable Reason: Shortness of Breath; Clinical Question(s): Pneumothorax COMPARISON: 12/11/2020 and 6:16 AM FINDINGS: LINES AND TUBES: Stable adequate positioning of right IJ CVL, endotracheal tube, an enterogastric tube. LUNGS AND PLEURA: Low lung volumes with mild basilar atelectasis. No significant change in bibasilar interstitial and airspace opacity, left greater than right. No pleural effusion. No pneumothorax. HEART, MEDIASTINUM AND TAVO: Heart is normal in size. Normal upper mediastinal and hilar contour. BONES AND SOFT TISSUES: No acute abnormality. IMPRESSION: Adequate positioning of lines and tubes. Stable bilateral airspace and interstitial opacity which may be due to pneumonia and/or edema. WSN: [id number] Ordering Physician: Nancy Jimenez Dictated By: Skyler Capellan MD Dictated Date/Time: 12/11/20 7:55 pm Reviewed By: Skyler Capellan MD Signed By: Skyler Capellan MD Signed Date/Time: 12/11/20 7:55 pm Transcribed By: HAKEEM Transcribed Date/Time: 12/11/20 7:50 pm Exam Date Time Procedure Performing Provider Status 12/11/20 6:32 AM Chest Portable Nohelia Acuna; Sarahi ([facility]) Notes:(Chest Portable) Reason For Exam: tube retracted;Tube PlacementRESULT: Chest Portable Chest Portable upright at 6:13 AM Reason: Tube Placement; tube retracted; Clinical Question(s): Tube Placement COMPARISON: Multiple priors, the most recent at 12:29 AM on the same date. FINDINGS: LINES AND TUBES: Tip of endotracheal tube 2.0 cm above the evert. Enteric tube and right IJ central venous catheter remain in good position. LUNGS AND PLEURA: There is diffuse interstitial and airspace disease similar to the most recent prior study. No pleural effusion. No pneumothorax. HEART, MEDIASTINUM AND TAVO: Heart is normal in size. Normal upper mediastinal and hilar contour. BONES AND SOFT TISSUES: No acute abnormality. IMPRESSION: Tip of endotracheal 2.0 cm above the evert. Other support lines remain in good position. Stable diffuse bilateral airspace disease. WSN: [id number] Ordering Physician: Earlene Cummins Dictated By: James Garcia MD Dictated Date/Time: 12/11/20 8:18 am Reviewed By: James Garcia MD Signed By: James Garcia MD Signed Date/Time: 12/11/20 8:18 am Transcribed By: HAKEEM Transcribed Date/Time: 12/11/20 8:16 am Vital Signs Most recent to 1 2 3 4 oldest [Reference Range]: Height 186 cm (12/12/20 2:00 PM) Weight 97.3 kg 97.3 kg 97.6 kg (01/02/21 8:30 AM) (01/02/21 6:20 AM) (01/01/21 7:02 AM) Oxygen Saturation 95 % 96 % 95 % [94-100 %] (01/06/21 5:00 PM) (01/06/21 4:00 PM) (01/06/21 1:00 PM) Pulse Rate [55-90 82 bpm 96 bpm 86 bpm bpm] (01/06/21 4:00 PM) *H* (01/06/21 7:39 AM) (01/06/21 12:00 PM) Blood Pressure 142/85 mm Hg 142/85 mm Hg 135/82 mm Hg [90-138/55-84 mm Hg] *H* *H* (01/06/21 1:00 PM) (01/06/21 5:00 PM) (01/06/21 4:00 PM) Respiratory Rate 18 br/min 18 br/min 20 br/min 20 br/min [16-30 br/min] (01/06/21 4:35 PM) (01/06/21 4:35 PM) (01/06/21 3:35 PM) ( 01/06/21 3:35 PM) Temperature 98.9 DegF 98.3 DegF 98.2 DegF [96.8-100.4 DegF] (01/06/21 4:00 PM) (01/06/21 12:00 PM) (01/06/21 7:39 A M) Liters per Minute 50 L/min 50 L/min 50 L/min (12/02/20 12:00 PM) (12/02/20 11:00 AM) (12/02/20 10:00 A M) Mode of Delivery Ventilator Ventilator Ventilator (Oxygen) (01/06/21 4:00 PM) (01/06/21 12:00 PM) (01/06/21 7:39 AM) Blood pressure sites Arm, right Arm, right Arm, right (01/06/21 6:00 AM) (01/06/21 2:00 AM) (01/05/21 10:00 PM) Temperature Route Axillary Oral Oral (01/06/21 4:00 PM) (01/06/21 12:00 PM) (01/06/21 7:39 AM) Dry Weight 103.7 kg 102.3 kg (12/12/20 2:00 PM) (12/11/20 4:00 PM) Weight Obtained Via Bed scale Bed scale Bed scale (01/02/21 8:30 AM) (01/02/21 6:20 AM) (01/01/21 7:02 AM) Social History Social History Type Response Smoking Status Never (less than 100 in life time) entered on: 05/02/20 Sex Male
--- OUTSIDE RECORDS SUMMARY | 2022-05-25 02:41 | XMS_ITS | Continuity of Care Document ---
:1970 Author Organization [facility] Address [address] [place] [address]- Care Team Providers Name Role Phone Not on Staff, PCP Primary Care Physician Unavailable [facility] Date[facility]s): 10/28/19 - 10/28/[address] [address]- [facility] Discharge Disposition: A-D/C Home Attending Physician: Mauricio العلي MD Admitting Physician: Mauricio العلي MD Referring Physician: Not on Staff, Referring [...] 5:36:00EST, Height, 106.4, kg, 08/05/19 12:00:00 EST, Dr... Start Date: 08/08/19 Status: Orderedatorvastatin 10 mg oral tablet 1 tablet = 10 mg, By Mouth, Daily, # 30 tablet, 0 Refills, Maintenance, 04/07/19 9:50:16 EST, Tablet Start Date: 04/07/19 Stop Date: 05/07/19 Status: OrderedCANE -1, FOR UNSTEADY GAIT CANE -1, FOR UNSTEADY GAIT, See Instructions, # 1 Unknown, Refills 0, Tot. Refills 0, Maintenance, ONE CANE FOR UNSTEADY GAIT, 08/08/19 9:46:00 EST, Supply Start Date: 08/08/19 Status: OrderedcloNIDine 0.1 mg oral tablet 0.3 mg, 3, tablet, By Mouth, 3 times a day, # 270 tablet, Refills 3, Tot. Refills 3, Maintenance, 06/25/19 13:35:00 EST, Route to Pharmacy Electronically, [facility], 185, cm, 06/24/19 21:45:00 EST, Height, 100.9, kg, 06/22/19 5:41:00 ES... Start Date: 06/25/19 Stop Date: 10/23/19 Status: Orderedfolic acid 1 mg oral tablet 1 mg, 1, tablet, By Mouth, Daily, # 30 tablet, Refills 0, Tot. Refills 0, Maintenance, 07/30/19 9:31:00 EST, Route to Pharmacy Electronically, [facility], 185.42, cm, 07/30/19 8:03:00 EST, Height, 100.9, kg, 07/28/19 14:57:00 EST, Dry We... Start Date: 07/30/19 Status: Orderedhydrochlorothiazide 25 mg oral tablet 25 mg, 1, tablet, By Mouth, Daily, # 30 tablet, Refills 0, Tot. Refills 0, Soft Stop, 07/30/19 9:30:00 EST, Route to Pharmacy Electronically, [facility], 185.42, cm, 07/30/19 8:03:00 EST,Height, 100.9, kg, 07/28/19 14:57:00 EST, Dry Weight Start Date: 07/30/19 Stop Date: 08/29/19 Status: Orderedinsulin lispro 100 u/ml subcutaneous injection 4-12 units, Subcutaneous Injection, 3 times a day before meals, # 15 mL, 0 Refills, Maintenance, 04/07/19 9:37:14 EST, Injection, << Sliding Scale Comments >>; 150 - 199 4 units Call if less than 100; 200 - 249 6 units ; 250 - 299 8 units ; 300... Start Date: 04/07/19 Stop Date: 05/07/19 Status: OrderedKeflex monohydrate 500 mg oral capsule 1 capsule = 500 mg, By Mouth, 4 times a day, for 7 days, # 28 capsule, 0 Refills, Acute 11/03/19 22:26:00 EDT, 10/27/19 22:26:00 EDT, Capsule, [facility], 186, cm, 10/27/19 20:25:00 EDT, Height, 100, kg, 10/27/19 20:25:00 EDT, Dry Weight Start Date: 10/27/19 Stop Date: 11/03/19 Status: OrderedKlonoPIN 2 mg oral tablet 1 tablet = 2 mg, By Mouth, 3 times a day, 0 Refills, Maintenance, 10/27/19 20:28:00 EDT, Tablet Start Date: 10/27/19 Status: OrderedLantus 100 u/ml subcutaneous solution = 65 units, Subcutaneous Injection, Daily at bedtime, # 15 mL, 2 Refills, Maintenance, 06/25/19 13:35:00 EST, Injection, [facility], 185, cm, 06/24/19 21:45:00 EST, Height, 100.9, kg, 06/22/19 5:41:00 EST, Dry Weight Start Date: 06/25/19 Stop Date: 09/23/19 Status: Orderedlisinopril 40 mg oral tablet 1 tablet = 40 mg, By Mouth, Daily, # 30 tablet, 3 Refills, Maintenance, 06/25/19 13:35:00 EST, Tablet, [facility], 185, cm, 06/24/19 21:45:00 EST, Height, 100.9, kg, 06/22/19 5:41:00 EST,Dry Weight Start Date: 06/25/19 Stop Date: 10/23/19 Status: Orderedmethadone 10 mg oral tablet = 115 mg, By Mouth, Daily in AM, 0 Refills, Maintenance, 04/07/19 9:51:48 EST, Tablet, Partial fill upon patient request Start Date: 04/07/19 Status: Orderedmultivitamin Multiple Vitamins oral capsule 1 capsule, By Mouth, Daily, # 30 capsule, 0 Refills, Maintenance, 08/08/19 10:54:00 EST, Capsule, [facility], 1 capsule By Mouth Daily,x30 days, 186, cm, 08/08/19 5:36:00 EST, Height, 106.4, kg, 08/05/19 12:00:00 EST, Dry Weight Start Date: 08/08/19 Stop Date: 09/07/19 Status: OrderedQUEtiapine 100 mg oral tablet 100 mg, 1, tablet, By Mouth, 2 times a day, # 60 tablet, Refills 3, Tot. Refills 3, Maintenance, 06/25/19 13:36:00 EST, Route to Pharmacy Electronically, [facility], 185, cm, 06/24/19 21:45:00 EST, Height, 100.9, kg, 06/22/19 5:41:00 EST... Start Date: 06/25/19 Stop Date: 10/23/19 Status: Ordered Problem List Condition Effective Dates [...] nd Vital Signs Most recent to oldest [Reference Range]: 1 2 Oxygen Saturation [94-100 %] 100 % 100 % (10/28/19 12:26 PM) (10/28/19 12:02 PM) Pulse Rate [55-90 bpm] 78 bpm 75 bpm (10/28/19 12:26 PM) (10/28/19 12:02 PM) Blood Pressure [90-138/55-84 mm Hg] 152/91 mm Hg *H* (10/28/19 12: PM) Respiratory Rate [16-30 br/min] 18 br/min 18 br/mi n (10/28/19 12:26 PM) (10/28/19 12:02 PM) Temperature [96.8-100.4 DegF] 98.2 DegF (10/28/19 12: PM) Mode of Delivery (Oxygen) Room air (10/28/19 12:26 PM) Blood pressure sites Arm, left (10/28/19 12:26 PM) Temperature Route Oral (10/28/19 12: PM) Social History Social History Type Response Smoking Status Never smoker; Tobacco user i n household: No entered on: 11/28/17 Sex Male
--- OUTSIDE RECORDS SUMMARY | 2022-05-25 02:41 | XMS_ITS | Continuity of Care Document ---
:1970 Author Organization [facility] Address [address] [place] [address]- Care Team Providers Name Role Phone Anastacio SHAFER, Afshan Castellanos Primary Care Physician Encounter [facility] Date(s): 02/04/22 - 02/04/[address] [address]- Discharge Disposition: A-D/C Walkout Attending Physician: Not on Staff, Attending MD Admitting Physician: Not on Staff, Admitting MD Referring Physician: Not on Staff, Referring MD Allergies, Adverse Reactions, Alerts Substance Reaction Severity Status ketorolac hives Unknown Active Naprosyn rash Unknown Active penicillin1, 2, 3, 4 rash Unknown Active aspirin rash Unknown Active Compazine rash Unknown Active 1Tolerated extended course of pip/tazo during November 2020 [id number] tolerated ampicillin/sulbactam during 01/2020 [id number] has tolerated piperacillin/tazobactam (08/09/15), cephalexin (01/19/16) and [...] acel(Tdap) 03/12/16 Given hepatitis B adult vaccine 5/1/14 Recorded pneumococcal 23-valent vaccine 06/11/13 Given tetanus-diphtheria [...] 0 Refills, Maintenance, 01/17/22 9:39:00 EDT, Tablet, [facility], Partial fill upon patient request if the prescription is for a schedule II opioid drug., 182.88, cm, 01/16/22 23:00:00 EDT,... Start Date: 01/17/22 Stop Date: 02/16/22 Status: OrderedcloNIDine 0.2 mg oral tablet 0.2 mg, 1, tablet, By Mouth, 3 times a day, # 90 tablet, Refills 0, Tot. Refills 0, Maintenance, 01/17/22 9:39:00 EDT, Route to Pharmacy Electronically, [facility], Partial fill upon patient request if the prescription is for a schedule... Start Date: 01/17/22 Stop Date: 02/16/22 Status: Orderedgabapentin 300 mg oral capsule 600 mg, 2, capsule, By Mouth, 3 times a day, # 180 capsule, Refills 0, Tot. Refills 0, Maintenance, 01/17/22 9:39:00 EDT, Route to Pharmacy Electronically, [facility], Partial fill upon patient request if the prescription is for a schedu... Start Date: 01/17/22 Stop Date: 02/16/22 Status: Orderedinsulin glargine 100 units/mL subcutaneous solution = 80 units, Subcutaneous Injection, Daily at bedtime, # 10 mL, 0 Refills, Maintenance, 01/17/22 9:40:00 EDT, Injection, [facility], Partial fill upon patient [...] 01/17/22 9:39:00 EDT, Route to Pharmacy Electronically, [facility], Partial fill upon patient [...] 01/17/22 9:42:00 EDT, Route to Pharmacy Electronically, [facility], Partial fill upon patient request if the prescription is for a schedule... Start Date: 01/17/22 Stop Date: 02/16/22 Status: OrderedVitamin B1 100 mg oral tablet 100 mg, 1, tablet, By Mouth, Daily, Refills 0, Maintenance, 01/19/22 10:56:00 EDT, Partial fill uponpatient request if the prescription is for a schedule II opioid drug. 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
--- OUTSIDE RECORDS SUMMARY | 2022-05-25 02:41 | XMS_ITS | Continuity of Care Document ---
:1970 Author Organization [facility] Address [address] [place] [address]- Care Team Providers Name Role Phone Not on Staff, PCP Primary Care Physician Unavailable [facility]counter [facility] Date[facility]s): 12/15/20 - 01/14/21 [facility] [address] [place] [id number] Attending Physician: AdmParker almanzar Admitting Physician: Admtr, Parker Referring Physician: Admtr, Ar8 Allergies, Adverse Reactions, Alerts Substance Reaction Severity Status penicillin1, 2, 3, 4 rash Unknown Active aspirin rash Unknown Active ketorolac hives Unknown Active Naprosyn rash Unknown Active Compazine rash Unknown Active 1Tolerated extended course of pip/tazo during November 2020 [id number] tolerated ampicillin/sulbactam during 01/2020 [id number] has tolerated piperacillin/tazobactam (08/09/15), cephalexin (01/19/16) and [...] 0 Refills, Maintenance, 03/18/20 11:06:00 EDT, Tablet, [facility], 183, cm, 03/18/20 7:55:00 [...] 02/14/20 11:33:00 EDT, Route to Pharmacy Electronically, [facility], 186, cm, 02/14/20 11:26:00 [...]
--- OUTSIDE RECORDS SUMMARY | 2022-05-25 02:41 | XMS_ITS | Continuity of Care Document ---
:1970 Author Organization [facility] Address [address] [place] [address]- Care Team Providers Name Role Phone Not on Staff, PCP Primary Care Physician Unavailable [facility]counter [facility] Date(s): 07/28/19 - 07/30/[address] [address]- [facility] Encounter Diagnosis Hypotension (Final) - 07/28/19 Discharge Disposition: A-D/C Home Attending Physician: Jenna Hathaway DO Admitting Physician: Joseph Skinner MD Referring Physician: Not on Staff, Referring [...] want, does not do flu shot Medications Ativan 1 mg oral tablet 1 tablet = 1 mg, By Mouth, Daily, PRN Anxiety, # 5 tablet, 0 Refills, Acute 08/04/19 9:32:00 EST, 07/30/19 9:31:00 EST, Tablet, [facility], 185.42, cm, 07/30/19 8:03:00 EST, Height, 100.9, kg, 07/28/19 14:57:00 EST, Dry Weight Start Date: 07/30/19 Stop Date: 08/04/19 Status: Orderedatorvastatin 10 mg oral tablet 1 tablet = 10 mg, By Mouth, Daily, # 30 tablet, 0 Refills, Maintenance, 04/07/19 9:50:16 EST, Tablet Start Date: 04/07/19 Stop Date: 05/07/19 Status: OrderedCane See Instructions, # 1 each, Refills 0, Tot. Refills 0, Maintenance, during ambulation, 06/25/19 13:42:00 EST, Compound Start Date: 06/25/19 Status: OrderedcloNIDine 0.1 mg oral tablet 0.3 mg, 3, tablet, By Mouth, 3 times a day, # 270 tablet, Refills 3, Tot. Refills 3, Maintenance, 06/25/19 13:35:00 EST, Route to Pharmacy Electronically, [facility], 185, cm, 06/24/19 21:45:00 EST, Height, 100.9, kg, 06/22/19 5:41:00 ES... Start Date: 06/25/19 Stop Date: 10/23/19 Status: Orderedfolic acid 1 mg oral tablet 1 mg, 1, tablet, By Mouth, Daily, # 30 tablet, Refills 0, Tot. Refills 0, Maintenance, 07/30/19 9:31:00 EST, Route to Pharmacy Electronically, [facility] 3, 185.42, cm, 07/30/19 8:03:00 EST, Height, 100.9, kg, 07/28/19 14:57:00 EST, Dry We... Start Date: 07/30/19 Status: OrderedFreestyle InsuLinx Glucose Meter See Instructions, # 1 each, Maintenance, use as directed for Type 2 Diabetes Mellitus, 04/07/19 9:46:49 EST, Compound Start Date: 04/07/19 Status: OrderedFreestyle InsuLinx Lancets See Instructions, # 100 each, Maintenance, use as directed for Type 2 Diabetes Mellitus, 04/07/19 9:47:31 EST, Compound Start Date: 04/07/19 Status: OrderedFreestyle InsuLinx Test Strips See Instructions, # 100 strip(s), Refills 0, Tot. Refills 0, Maintenance, check BG QAC and keep documentation, show it to PCP on next visit, 04/07/19 9:45:31 EST, Compound Start Date: 04/07/19 Status: Orderedhydrochlorothiazide 25 mg oral tablet 25 mg, 1, tablet, By Mouth, Daily, # 30 tablet, Refills 0, Tot. Refills 0, Soft Stop, 07/30/19 9:30:00 EST, Route to Pharmacy Electronically, [facility] 3, 185.42, cm, 07/30/19 8:03:00 [...] Start Date: 04/07/19 Stop Date: 05/07/19 Status: OrderedInsulin Syringe, BD Ultra-Fine 0.5 cc 31 G x 8 mm (5/16in) See Instructions, # 120 each, Refills 1, Tot. Refills 1, Maintenance, use as directed for Type 2 Diabetes Mellitus, 04/07/19 9:44:00 EST, for insulin administration 4x a day, Compound Start Date: 04/07/19 Stop Date: 06/06/19 Status: OrderedIodosorb 0.9% topical gel See Instructions, Apply to bilateral lower extremity wounds daily, # 1 each, 1 Refills, Maintenance,04/29/19 16:04:54 EST, Apply to bilateral lower extremity wounds daily Start Date: 04/29/19 Status: OrderedLantus 100 u/ml subcutaneous solution = 55 units, Subcutaneous Injection, Daily at bedtime, # 15 mL, 2 Refills, Maintenance, 06/25/19 13:35:00 EST, Injection, [facility], 185, cm, 06/24/19 21:45:00 EST, Height, 100.9, kg, 06/22/19 5:41:00 EST, Dry Weight Start Date: 06/25/19 Stop Date: 09/23/19 Status: Orderedlisinopril 40 mg oral tablet 1 tablet = 40 mg, By Mouth, Daily, # 30 tablet, 3 Refills, Maintenance, 06/25/19 13:35:00 EST, Tablet, [facility], 185, cm, 06/24/19 21:45:00 EST, Height, 100.9, kg, 06/22/19 5:41:00 EST,Dry Weight Start Date: 06/25/19 Stop Date: 10/23/19 Status: Orderedmethadone 10 mg oral tablet = 100 mg, By Mouth, Daily in AM, 0 Refills, Maintenance, 04/07/19 9:51:48 EST, Tablet, Partial fill upon patient request Start Date: 04/07/19 Status: Orderedondansetron 4 mg oral tablet, disintegrating 1 tablet = 4 mg, By Mouth, Every 8 hours, PRN Nausea & Vomiting, # 10 tablet, 0 Refills, Maintenance, 07/25/19 20:05:00 EST, Tablet, [facility], 187, cm, 07/25/19 15:39:00 EST, Height, 100, kg, 07/25/19 15:39:00 EST, Dry Weight Start Date: 07/25/19 Status: OrderedoxyCODONE 15 mg oral tablet 1 tablet = 15 mg, By Mouth, Every 6 hours, PRN as needed for pain, # 8 tablet, 0 Refills, Acute 08/01/19 9:32:00 EST, 07/30/19 9:31:00 EST, Tablet, [facility], Partial fill upon patient request, 185.42, cm, 07/30/19 8:03:00 EST, Height,... Start Date: 07/30/19 Stop Date: 08/01/19 Status: OrderedQUEtiapine 100 mg oral tablet 100 mg, 1, tablet, By Mouth, 2 times a day, # 60 tablet, Refills 3, Tot. Refills 3, Maintenance, 06/25/19 13:36:00 EST, Route to Pharmacy Electronically, [facility], 185, cm, 06/24/19 21:45:00 EST, Height, 100.9, kg, 06/22/19 5:41:00 EST... Start Date: 06/25/19 Stop Date: 10/23/19 Status: Orderedthiamine 100 mg oral tablet 100 mg, 1, tablet, By Mouth, Daily, for 14 days, # 14 tablet, Refills 0, Tot. Refills 0, Acute 08/13/19 9:31:00 EDT, 07/30/19 9:31:00 EST, Route to Pharmacy Electronically, [facility], 185.42, cm, 07/30/19 8:03:00 EST, Height, 100.9, kg,... Start Date: 07/30/19 Stop Date: 08/13/19 Status: Ordered Problem List Condition Effective Dates Status Health Status Informant Alcoholic cirrhosis of Active liver(Confirmed) Alcoholism(Confirmed)1 Active Amputation toe(Confirmed)2 Active Anxiety(Confirmed) Active Diabetes mellitus(Confirmed) Active Hypertension(Confirmed) Active Chronic narcotic use(Confirmed) Active Nontraumatic compartment [...] for Microbiology Reports Name Date Blood Culture 07/28/19 Blood Culture #2 07/28/19 Microbiology Reports TEST:Blood Culture STATUS:Unauthenticated BODY SITE: SOURCE:Blood COLLECTED DATE/TIME:07/28/19 3:45 AMBlood Culture SPECIMEN DESCRIPTION : BLOOD L HAND SPECIAL REQUESTS : NONE CULTURE : NO GROWTH AFTER 48 HOURS REPORT STATUS : PRELIMINARY REPORT TEST:Blood Culture, Second Order STATUS:Unauthenticated BODY SITE: SOURCE:Blood COLLECTED DATE/TIME:07/28/19 3:45 AMBlood Culture, Second Order SPECIMEN DESCRIPTION : BLOOD R HAND SPECIAL REQUESTS : NONE CULTURE : NO GROWTH AFTER 48 HOURS REPORT STATUS : PRELIMINARY REPORT Radiology Reports Exam Date Time Procedure Performing Provider Status 07/28/19 2:41 AM Foot Min 3 Views Right Pawan Vianey M; Auth (V erified) Notes:(Foot Min 3 Views Right) Reason For Exam: InfectionRESULT: Foot Min 3 Views Right Foot Min 3 Views Right INDICATION: Reason: Infection; Clinical Question(s): Osteomyelitis; Hx of Present Illness: hypotensive from triage; Other Objective Findings: patient is lethargic, unsteady gait. Resp even and unlabored. MAEi 0 Segoe UI;}} [email or web address] uc1 pard f0 fs20 patient is lethargic, unsteady gait. Resp even and unlabored. MAEi par } COMPARISON: 07/07/1907/25/2019 FINDINGS: Patient is status post transmetatarsal resection. There is no fracture or subluxation or focal bony destruction. No soft tissue emphysema. IMPRESSION: Status post transmetatarsal resection. No evidence of osteomyelitis. WSN: [id number] Dictated By: Cyndi Evans MD Dictated Date/Time: 07/28/19 10:28 a Reviewed By: Cyndi Evans MD Signed By: Cyndi Evans MD Signed Date/Time: 07/28/19 10:28 am Transcribed By: HAKEEM Transcribed Date/Time: 07/28/19 10:27 am Exam Date Time Procedure Performing Provider Status 07/28/19 2:41 AM Foot Min 3 Views Left Vianey Villalta M; Auth (Ve rified) Notes:(Foot Min 3 Views Left) Reason For Exam: InfectionRESULT: Foot Min 3 Views Left Foot Min 3 Views Left INDICATION: Reason: Infection; Clinical Question(s): Osteomyelitis; Hx of Present Illness: hypotensive from triage; Other Objective Findings: patient is lethargic, unsteady gait. Resp even and unlabored. MAEi 0 Segoe UI;}} [email or web address] uc1 pard f0 fs20 patient is lethargic, unsteady gait. Resp even and unlabored. MAEi par } COMPARISON: 07/25/2019 FINDINGS: Multiple surgical hardware is are intact and unchanged. There is no fracture or subluxation. There is chronic appearing deformity at the fourth and fifth metatarsal likely from remote resection. There is a focal defect at the lateral mid foot suggesting ulcer. IMPRESSION: No acute bony findings. A lateral mid foot ulcer is suggested. WSN: [id number] Dictated By: Cyndi Evans MD Dictated Date/Time: 07/28/19 10:27 a Reviewed By: Cyndi Evans MD Signed By: Cyndi Evans MD Signed Date/Time: 07/28/19 10:27 am Transcribed By: HAKEEM Transcribed Date/Time: 07/28/19 10:24 am Exam Date Time Procedure Performing Provider Status 07/28/19 2:27 AM Chest Portable Vianey Villalta; Sarahi (Verified ) Notes:(Chest Portable) Reason For Exam: Shortness of BreathRESULT: Chest Portable Examination: Portable chest performed on 07/28/2019 1:58 AM. History: Shortness of breath. Findings: A frontal view of the chest is compared to a prior study dated 06/23/2018. The cardiac and mediastinal silhouettes are within normal limits. The lungs are clear. The osseous and soft tissue structures are unremarkable. IMPRESSION: There is no acute cardiopulmonary disease. WSN: [id number] Dictated By: Shila Marquez MD Dictated Date/Time: 07/28/19 10:09 a Reviewed By: Shila Marquez MD Signed By: Shila Marquez MD Signed Date/Time: 07/28/19 10:09 am Transcribed By: HAKEEM Transcribed Date/Time: 07/28/19 10:09 am Vital Signs Most recent to oldest 1 2 3 [Reference Range]: Height 185.42 cm 185.42 cm 185.42 cm (07/30/19 8:03 AM) (07/30/19 5:12 AM) (07/29/19 11: 12 PM) Weight 101.8 kg 101.5 kg 100.9 kg (07/30/19 5:12 AM) (07/29/19 6:10 AM) (07/28/19 2:0 4 PM) Oxygen Saturation [94-100 95 % 94 % 96 % %] (07/30/19 8:03 AM) (07/30/19 5:12 AM) (07/29/19 11: 12 PM) Pulse Rate [55-90 bpm] 47 bpm 58 bpm 54 bpm *L* (07/30/19 5:12 AM) *L* (07/30/19 8:03 AM) (07/29/19 11:12 PM) Body Mass Index 29.61 29.52 29.35 [18.5-24.99] *H* *H* *H* (07/30/19 5:12 AM) (07/29/19 6:10 AM) (07/28/19 2:0 4 PM) Blood Pressure 133/70 mm Hg 123/77 mm Hg 130/78 mm Hg [90-138/55-84 mm Hg] (07/30/19 8:03 AM) (07/30/19 5:12 AM) ( 0 11:12 PM) Respiratory Rate [16-30 18 br/min 18 br/min 16 br/mi n br/min] (07/30/19 2:57 PM) (07/30/19 11:53 AM) (07/30/19 10 :53 AM) Temperature [96.8-100.4 97.7 DegF 97.9 DegF 97.5 Deg F DegF] (07/30/19 8:03 AM) (07/30/19 5:12 AM) (07/29/19 11: 12 PM) Mode of Delivery (Oxygen) Room air Room air Room a ir (07/30/19 8:03 AM) (07/30/19 5:12 AM) (07/29/19 11: 12 PM) Blood pressure sites Arm, right Arm, right Arm, right (07/30/19 8:03 AM) (07/30/19 5:12 AM) (07/29/19 11: 12 PM) Temperature Route Oral Oral Oral (07/30/19 8:03 AM) (07/30/19 5:12 AM) (07/29/19 11: 12 PM) Dry Weight 100.9 kg (07/28/19 2:04 PM) Weight Obtained Via Bed scale Bed scale Patient/fami ly stated (07/30/19 5:12 AM) (07/29/19 6:10 AM) (07/28/19 2:0 4 PM) Sensory deficits None (07/28/19 2:04 PM) Mobility assistance Independent (07/28/19 2:04 PM) Social History Social History Type Response Smoking Status Never smoker; Tobacco user i n household: No entered on: 11/28/17 Sex
--- OUTSIDE RECORDS SUMMARY | 2022-05-25 02:41 | XMS_ITS | Continuity of Care Document ---
:1970 Author Organization [facility] Address [address] [place] [id number]- Care Team Providers Name Role Phone Not on Staff, PCP Primary Care Physician Unavailable [facility]counter [facility] Date(s): 06/21/19 - 06/25/[address] [address]- [facility] Encounter Diagnosis Diabetic foot ulcers (Final) - 06/21/19 Discharge Disposition: A-D/C Home Attending Physician: Sharee SHAFER [place] Admitting Physician: Miguel Gray MD Referring Physician: Not on Staff, Referring [...] Date Status Refusal Reason influenza virus vaccine, inactivated1 06/22/19 Not Given [...] does not do flu shot Medications atorvastatin 10 mg oral tablet 1 tablet = [...] 06/25/19 13:35:00 EST, Route to Pharmacy Electronically, [facility], 185, cm, 06/24/19 21:45:00 EST, Height, 100.9, kg, 06/22/19 5:41:00 ES... Start Date: 06/25/19 Stop Date: 10/23/19 Status: Ordereddoxycycline hyclate 100 mg oral tablet 1 tablet = 100 mg, By Mouth, 2 times a day, for 7 days, # 14 tablet, 0 Refills, Acute 07/02/19 13:38:00 EST, 06/25/19 13:38:00 EST, Tablet, [facility], 185, cm, 06/24/19 21:45:00 EST, Height, 100.9, kg, 06/22/19 5:41:00 EST, Dry Weight Start Date: 06/25/19 Stop Date: 07/02/19 Status: OrderedFreestyle InsuLinx Glucose Meter See Instructions, [...] By Mouth, Daily, # 30 tablet, Refills 3, Tot. Refills 3, Soft Stop, 06/25/19 13:35:00 EST, Route to Pharmacy Electronically, [facility], 185, cm, 06/24/19 21:45:00 EST, Height, 100.9, kg, 06/22/19 5:41:00 EST, Dry Weight Start Date: 06/25/19 Stop Date: 10/23/19 Status: Orderedinsulin lispro 100 u/ml subcutaneous injection [...] 2 Refills, Maintenance, 06/25/19 13:35:00 EST, Injection, [facility], 185, cm, 06/24/19 21:45:00 EST, Height, 100.9, kg, 06/22/19 5:41:00 EST, Dry Weight Start Date: 06/25/19 Stop Date: 09/23/19 Status: Orderedlisinopril 40 mg oral tablet 1 tablet = 40 mg, By Mouth, Daily, # 30 tablet, 3 Refills, Maintenance, 06/25/19 13:35:00 EST, Tablet, [facility], 185, cm, 06/24/19 21:45:00 EST, Height, 100.9, kg, 06/22/19 5:41:00 EST,Dry Weight Start Date: 06/25/19 Stop Date: 10/23/19 Status: OrderedLORazepam 1 mg oral tablet 1 tablet = 1 mg, By Mouth, 2 times a day, for 7 days, # 14 tablet, 0 Refills, Acute 07/02/19 13:38:00 EST, 06/25/19 13:38:00 EST, Tablet Start Date: 06/25/19 Stop Date: 07/02/19 Status: Orderedmethadone 10 mg oral tablet = 100 mg, By Mouth, Daily in AM, 0 Refills, Maintenance, 04/07/19 9:51:48 EST, Tablet, Partial fill upon patient request Start Date: 04/07/19 Status: OrderedoxyCODONE 5 mg oral tablet 10 mg, 2, tablet, By Mouth, Every 6 hours, PRN, for 3 days, # 20 tablet, Refills 0, Tot. Refills 0, Acute 06/28/19 13:38:00 EST, Pain , Severe, 06/25/19 13:38:00 EST, Print Requisition, Partial fill upon patient request Start Date: 06/25/19 Stop Date: 06/28/19 Status: Orderedpolyethylene glycol 3350 oral powder for reconstitution = 17 Gm, By Mouth, Daily, for 7 days, dissolve in water before taking, # 119 Gm, 0 Refills, Acute 07/02/19 13:35:00 EST, 06/25/19 13:35:00 EST, REC Powder, [facility], 17 Gm By Mouth Daily,x7 days,Instr:dissolve in water before taking, 1... Start Date: 06/25/19 Stop Date: 07/02/19 Status: OrderedQUEtiapine 100 mg oral tablet 100 mg, 1, tablet, By Mouth, 2 times a day, # 60 tablet, Refills 3, Tot. Refills 3, Maintenance, 06/25/19 13:36:00 EST, Route to Pharmacy Electronically, [facility], 185, cm, 06/24/19 21:45:00 EST, [...] for Microbiology Reports Name Date Blood Culture 06/21/19 Blood Culture #2 06/21/19 Microbiology Reports TEST:Blood Culture, Second Order STATUS:Unauthenticated BODY SITE: SOURCE:Blood COLLECTED DATE/TIME:06/21/19 5:18 AMBlood Culture, Second Order SPECIMEN DESCRIPTION : BLOOD RIGHT HAND SPECIAL REQUESTS : NONE CULTURE : NO GROWTH 4 DAYS REPORT STATUS : PRELIMINARY REPORT TEST:Blood Culture STATUS:Unauthenticated BODY SITE: SOURCE:Blood COLLECTED DATE/TIME:06/21/19 5:15 AMBlood Culture SPECIMEN DESCRIPTION : BLOOD SPECIAL REQUESTS : NONE CULTURE : NO GROWTH 4 DAYS REPORT STATUS : PRELIMINARY REPORT Radiology Reports Exam Date Time Procedure Performing Provider Status 06/21/19 6:13 AM Foot Min 3 Views Left Cecelia Cruz; Auth (Isadora jsoeph) Notes:(Foot Min 3 Views Left) Reason For Exam: InfectionRESULT: Foot Min 3 Views Left Foot Min 3 Views Left, 3 views Reason: Infection; Clinical Question(s): Osteomyelitis; Hx of Present Illness: Pt with hx of diabetic foot ulcers with c o increased bleeding, swelling, sores to feet, bilaterally. He has fallen several times at home as a result. States he's had increased n v chills and fevers. COMPARISON: 04/26/2019 FINDINGS: No acute fracture or dislocation. Unchanged deformity of the fourth and fifth metatarsals and relative lucency of the base of the proximal phalanx of the fourth toe. Screws in the talus and the calcaneus and a staple in the first metatarsal are unchanged. No new bony destructive change. Mild soft tissue swelling. No unexpected radiopaque foreign body. IMPRESSION: No significant change from 04/26/2019. WSN: [id number] Dictated By: Skyler Arevalo MD Dictated Date/Time: 06/21/19 7:31 am Reviewed By: Skyler Arevalo MD Signed By: Skyler Arevalo MD Signed Date/Time: 06/21/19 7:31 am Transcribed By: HAKEEM Transcribed Date/Time: 06/21/19 7:29 am Exam Date Time Procedure Performing Provider Status 06/21/19 6:13 AM Foot Min 3 Views Right Cecelia Cruz; Auth (Arthur ified) Notes:(Foot Min 3 Views Right) Reason For Exam: InfectionRESULT: Foot Min 3 Views Right Foot Min 3 Views Right, 3 views Reason: Infection; Clinical Question(s): Osteomyelitis; Hx of Present Illness: Pt with hx of diabetic foot ulcers with c o increased bleeding, swelling, sores to feet, bilaterally. He has fallen several times at home as a result. States he's had increased n v chills and fevers. COMPARISON: 04/26/2019 FINDINGS: Normal mineralization. Status post transmetatarsal amputation of all 5 toes. Overlying soft tissue swelling and surgical clips, similar to the prior exam. No evidence of acute fracture or dislocation. No new bone destruction, erosion, or periostitis. IMPRESSION: No radiographic evidence of osteomyelitis. WSN: [id number] Dictated By: Skyler Arevalo MD Dictated Date/Time: 06/21/19 7:28 am Reviewed By: Skyler Arevalo MD Signed By: Skyler Arevalo MD Signed Date/Time: 06/21/19 7:28 am Transcribed By: HAKEEM Transcribed Date/Time: 06/21/19 7:27 am Vital Signs Most recent to oldest 1 2 3 [Reference Range]: Height 185 cm 185 cm 185 cm (06/25/19 1:25 PM) (06/24/19 9:45 PM) (06/24/19 5:3 0 AM) Weight 100.9 kg (06/21/19 9:00 PM) Oxygen Saturation [94-100 98 % 94 % 96 % %] (06/25/19 1:25 PM) (06/24/19 9:45 PM) (06/24/19 2:0 0 PM) Pulse Rate [55-90 bpm] 92 bpm 64 bpm 60 bpm *H* (06/24/19 9:45 PM) (06/24/19 2:00 PM) (06/25/19 1:25 PM) Body Mass Index 29.48 [18.5-24.99] *H* (06/21/19 9:00 PM) Blood Pressure 116/80 mm Hg 121/82 mm Hg 102/71 mm Hg [90-138/55-84 mm Hg] (06/25/19 1:25 PM) (06/25/19 8:29 AM) ( 0 9:45 PM) Respiratory Rate [16-30 15 br/min 18 br/min 12 br/mi n br/min] *L* (06/25/19 1:25 PM) *L* (06/25/19 3:53 PM) (06/25/19 11:47 AM) Temperature [96.8-100.4 97.8 DegF 98.2 DegF 97.4 Deg F DegF] (06/25/19 1:25 PM) (06/24/19 9:45 PM) (06/24/19 2:0 0 PM) Mode of Delivery (Oxygen) Room air Room air Room a ir (06/25/19 1:25 PM) (06/24/19 9:45 PM) (06/24/19 2:0 0 PM) Blood pressure sites Arm, right Arm, right Arm, right (06/24/19 9:45 PM) (06/24/19 2:00 PM) (06/24/19 5:3 0 AM) Temperature Route Oral Oral Oral (06/25/19 1:25 PM) (06/24/19 9:45 PM) (06/24/19 2:0 0 PM) Dry Weight 100.9 kg (06/21/19 9:00 PM) Weight Obtained Via Patient/family stated (06/21/19 9:00 PM) Dry Weight Obtained Via Patient/family stated (06/21/19 9:00 PM) Sensory deficits None (06/21/19 9:00 PM) Mobility assistance Independent (06/21/19 9:00 PM) Social History Social History Type Response Smoking Status Never (less than 100 in life time); Tobacco user in household: Yes entered on: 10/30/18 Sex
--- OUTSIDE RECORDS SUMMARY | 2022-05-25 02:41 | XMS_ITS | Continuity of Care Document ---
:1970 Author Organization [facility] Address [address] [place] [address]- Care Team Providers Name Role Phone Quincy SHAFER, Lis Castellanos Primary Care Physician [facility] Date(s): 01/27/20 - 01/28/[address] [address]- [facility] Discharge Disposition: A-D/C Home Attending Physician: Renetta Lovell MD Admitting Physician: Renetta Lovell MD Referring Physician: Not on Staff, Referring [...] 0 Refills, Maintenance, 11/21/19 13:34:00 EDT, Tablet, [facility], 185, cm, 11/21/19 8:47:00 EDT, Height, 104, kg, 11/17/19 18:28:00 EDT, Dry Weight Start Date: 11/21/19 Stop Date: 12/21/19 Status: OrderedclonazePAM 1 mg oral tablet 1 tablet = 1 mg, By Mouth, 2 times a day, PRN Anxiety, # 10 tablet, 0 Refills, Maintenance, 12/02/2010:54:00 EDT, Tablet, [facility], 186, cm, 11/27/19 22:48:00 EDT, Height, 100, kg, 11/27/19 22:48:00 EDT, Dry Weight Start Date: 12/03/19 Stop Date: 12/08/19 Status: OrderedcloNIDine 0.1 mg oral tablet 0.2 mg, 2, tablet, By Mouth, 3 times a day, # 180 tablet, Refills 0, Tot. Refills 0, Maintenance, 01/08/20 10:01:00 EDT, Route to Pharmacy Electronically, [facility], 186, cm, 01/07/20 23:30:00 EDT, Height, 97.7, kg, 12/31/19 20:13:00 ED... Start Date: 01/08/20 Stop Date: 02/07/20 Status: Orderedfolic acid 1 mg oral tablet 1 mg, 1, tablet, By Mouth, Daily, # 30 tablet, Refills 0, Tot. Refills 0, Maintenance, 11/12/19 11:51:00 EDT, Route to Pharmacy Electronically, [facility], 184, cm, 11/11/19 20:33:00 EDT,Height, 100, kg, 11/07/19 9:02:00 EDT, Dry Weight Start Date: 11/12/19 Status: Orderedinsulin lispro 100 u/ml subcutaneous injection See Instructions, 7-21 units Subcutaneous Injection 3 times a day before meals, # 15 mL, 0 Refills, Maintenance, 11/12/19 11:53:00 EDT, Injection, [facility], << Sliding Scale Comments >>; [...] 0 Refills, Maintenance, 01/08/20 10:01:00 EDT, Tablet, [facility], 186, cm, 01/07/20 23:30:00 EDT, Height, [...] 0 Refills, Maintenance, 11/12/19 11:53:00 EDT, Capsule, [facility], 1 capsule By Mouth Daily,x30 days, 184, cm, 11/11/19 20:33:00 EDT, Height, 100, kg, 11/07/19 9:02:00 EDT, Dry Weight Start Date: 11/12/19 Stop Date: 12/12/19 Status: OrderedNeurontin 100 mg oral capsule 300 mg, 3, capsule, By Mouth, 3 times a day, # 270 capsule, Refills 0, Tot. Refills 0, Maintenance, 01/08/20 10:02:00 EDT, Route to Pharmacy Electronically, [facility], 186, cm, 01/07/20 23:30:00 EDT, Height, 97.7, kg, 12/31/19 20:13:00... Start Date: 01/08/20 Status: OrderedQUEtiapine 100 mg oral tablet 100 mg, 1, tablet, By Mouth, 2 times a day, # 60 tablet, Refills 0, Tot. Refills 0, Maintenance, 11/21/19 13:34:00 EDT, Route to Pharmacy Electronically, [facility], 185, cm, 11/21/19 8:47:00 EDT, Height, [...] 3 [Reference Range]: Oxygen Saturation [94-100 %] 100 % 100 % 100 % (01/28/20 10:14 AM) (01/28/20 9:15 AM) (01/28/20 5: 57 AM) Pulse Rate [55-90 bpm] 78 bpm 77 bpm 76 bpm (01/28/20 10:14 AM) (01/28/20 9:15 AM) (01/28/20 5: 57 AM) Blood Pressure [90-138/55-84 127/66 mm Hg 137/74 mm Hg 106 /63 mm Hg mm Hg] (01/28/20 10:14 AM) (01/28/20 9:15 AM) (01/28/20 5: 57 AM) Respiratory Rate [16-30 16 br/min 19 br/min 18 br/mi n br/min] (01/28/20 10:21 AM) (01/28/20 10:14 AM) (01/28/20 9 :15 AM) Temperature [96.8-100.4 98.3 DegF 99.5 DegF 100.8 De gF DegF] (01/28/20 5:57 AM) (01/28/20 3:21 AM) *H* (01/27/20 10:58 P M) Mode of Delivery (Oxygen) Room air Room air Room a ir (01/28/20 10:14 AM) (01/28/20 9:15 AM) (01/28/20 5: 57 AM) Blood pressure sites Arm, left Arm, left Arm, left (01/28/20 10:14 AM) (01/28/20 9:15 AM) (01/28/20 5: 57 AM) Temperature Route Oral Oral Oral (01/28/20 5:57 AM) (01/28/20 3:21 AM) (01/27/20 10: 58 PM) Dry Weight 100 kg 100 kg 100 kg (01/28/20 10:14 AM) (01/28/20 9:15 AM) (01/27/20 11 :38 PM) Social History Social History Type Response Smoking Status Never smoker; Tobacco user i n household: No entered on: 11/28/17 Sex
--- OUTSIDE RECORDS SUMMARY | 2022-05-25 02:41 | XMS_ITS | Continuity of Care Document ---
:1970 Author Organization [facility] Address [address] [place] [id number]- Care Team Providers Name Role Phone Anastacio SHAFER, Afshan Castellanos Primary Care Physician Encounter [facility] Date(s): 03/24/22 - 03/29/[address] [address]- Encounter Diagnosis Cocaine use (Final) - 03/23/22 Heroin use (Final) - 03/23/22 Cellulitis (Final) - 03/23/22 Diabetes (Final) - 03/23/22 Ulcer of foot (Final) - 03/23/22 Discharge Disposition: A-D/C Home Attending Physician: Jenna Hathaway DO Admitting Physician: Kit No MD Referring Physician: Not on Staff, Referring MD Allergies, Adverse Reactions, Alerts Substance Reaction Severity Status ketorolac hives Unknown Active Naprosyn rash Unknown Active penicillin1, 2, 3, 4 rash Unknown Active aspirin rash Unknown Active Compazine rash Unknown Active 1Tolerated extended course of pip/tazo during November 2020 [id number] tolerated ampicillin/sulbactam during 01/2020 [id number] has tolerated piperacillin/tazobactam (08/09/15), cephalexin (01/19/16) and [...] Status Refusal Reason influenza virus vaccine, inactivated 03/26/22 Not Given Patient Refuses influenza virus vaccine, inactivated 07/29/19 Not Given [...] 0 Refills, Maintenance, 01/17/22 9:39:00 EDT, Tablet, [facility], Partial fill upon patient request if the prescription is for a schedule II opioid drug., 182.88, cm, 01/16/22 23:00:00 EDT,... Start Date: 01/17/22 Stop Date: 02/16/22 Status: OrderedclonazePAM 1 mg oral tablet 1 tablet = 1 mg, By Mouth, 2 times a day, 0 Refills, Maintenance, 03/24/22 20:22:00 EDT, Tablet, Partial fill upon patient request if the prescription is for a schedule II opioid drug. Start Date: 03/24/22 Status: OrderedcloNIDine 0.2 mg oral tablet 0.2 mg, 1, tablet, By Mouth, 3 times a day, # 90 tablet, Refills 0, Tot. Refills 0, Maintenance, 01/17/22 9:39:00 EDT, Route to Pharmacy Electronically, [facility], Partial fill upon patient request if the prescription is for a schedule... Start Date: 01/17/22 Stop Date: 02/16/22 Status: Orderedfurosemide 40 mg oral tablet TAKE 1 TABLET BY MOUTH TWO TIMES A DAY Start Date: 03/24/22 Status: Orderedgabapentin 300 mg oral capsule 600 mg, 2, capsule, By Mouth, 3 times a day, # 180 capsule, Refills 0, Tot. Refills 0, Maintenance, 01/17/22 9:39:00 EDT, Route to Pharmacy Electronically, [facility], Partial fill upon patient request if the prescription is for a schedu... Start Date: 01/17/22 Stop Date: 02/16/22 Status: Orderedgabapentin 300 mg oral capsule 600 mg, Capsule, By Mouth, 03/29/22 9:00:00 EDT Start Date: 03/29/22 Stop Date: 03/29/22 Status: CompletedInsulin Lispro KwikPen 100 units/mL injectable solution INJECT 15 UNITS SUBCUTANEOUSLY THREE TIMES A DAY WITH MEALS Start Date: 03/24/22 Status: OrderedLantus Solostar Pen 100 units/mL subcutaneous solution INJECT 120 UNITS SUBCUTANEOUSLY DAILY Start Date: 03/24/22 Status: OrderedMethadone = 100 mg, By Mouth, Daily, 0 Refills, Maintenance, 01/19/22 11:38:00 EDT, Partial fill upon patient request if the prescription is for a schedule II opioid drug. Start Date: 01/19/22 Status: Orderedmethadone 10 mg oral tablet 90 mg, Tablet, By Mouth, 03/29/22 9:00:00 EDT Start Date: 03/29/22 Stop Date: 03/29/22 Status: CompletedoxyCODONE 10 mg oral tablet 1 tablet = 10 mg, By Mouth, Every 6 hours, PRN as needed for pain, for 3 days, # 12 tablet, 0 Refills, Acute 04/01/22 10:47:00 EDT, 03/29/22 10:47:00 EDT, Tablet, [facility], Partial fillupon patient request if the prescription is for a... Start Date: 03/29/22 Stop Date: 04/01/22 Status: OrderedQUEtiapine 100 mg oral tablet 100 mg, 1, tablet, By Mouth, 2 times a day, # 60 tablet, Refills 0, Tot. Refills 0, Maintenance, 01/17/22 9:42:00 EDT, Route to Pharmacy Electronically, [facility], Partial fill upon patient [...] for Microbiology Reports Name Date Blood Culture 03/23/22 Blood Culture #2 03/23/22 Microbiology Reports TEST:Blood Culture, Second Order STATUS:Auth (Verified) BODY SITE: SOURCE:Blood COLLECTED DATE/TIME:03/23/22 11:33 PMBlood Culture, Second Order SPECIMEN DESCRIPTION : BLOOD NO SITE SPECIAL REQUESTS : NONE CULTURE : NO GROWTH 5 DAYS. REPORT STATUS : FINAL 03/29/2022TEST:Blood Culture STATUS:Auth (Verified) BODY SITE: SOURCE:Blood COLLECTED DATE/TIME:03/23/22 10:04 PMBlood Culture SPECIMEN DESCRIPTION : BLOOD NO SITE SPECIAL REQUESTS : NONE CULTURE : NO GROWTH 5 DAYS. REPORT STATUS : FINAL 03/29/2022adiology Reports Exam Date Time Procedure Performing Provider Status 03/23/22 10:38 PM Foot Min 3 Views Right Luke Ballard; Auth (V erified) Notes:(Foot Min 3 Views Right) Reason For Exam: with Pain;TraumaRESULT: Foot Min 3 Views Right Foot Min 3 Views Right, 3 views Hx of Present Illness: Pain. COMPARISON: 01/23/2022 FINDINGS: Status post transmetatarsal amputation of all digits. Amputation sites appear sharp without evidenceof osteomyelitis. No fracture. Chronic smooth periosteal reaction distal tibia likely due to chronichyperemia. Plantar ulceration is suspected at the level of the metatarsal bases. IMPRESSION: No acute osseous abnormality. Plantar ulceration suspected in a similar location compared to prior examination at the base of the metatarsals. WSN: [id number] Ordering Physician: Leora Hopson Dictated By: Joey Padron MD Dictated Date/Time: 03/23/22 10:50 p Reviewed By: Joey Padron MD Signed By: Joey Padron MD Signed Date/Time: 03/23/22 10:50 pm Transcribed By: HAKEEM Transcribed Date/Time: 03/23/22 10:49 pm Exam Date Time Procedure Performing Provider Status 03/23/22 10:38 PM Chest Portable Luke Ballard; Sarahi (Verified ) Notes:(Chest Portable) Reason For Exam: Shortness of BreathRESULT: Chest Portable Chest Portable Hx of Present Illness: overdose; Reason: Shortness of Breath; Clinical Question(s): CHF COMPARISON: 01/19/2022 FINDINGS: LINES AND TUBES: None. LUNGS AND PLEURA: Low lung volumes with bibasilar opacities and bronchovascular crowding. Hazy opacification of the lungs bilaterally. HEART, MEDIASTINUM AND TAVO: Heart is normal in size. Normal mediastinal and hilar contour. BONES AND SOFT TISSUES: No acute abnormality. IMPRESSION: Low lung volumes. Hazy opacification the lungs bilaterally may reflect posterior layering effusions or edema WSN: [id number] Ordering Physician: Leora Hopson Dictated By: Joey Padron MD Dictated Date/Time: 03/23/22 10:49 p Reviewed By: Joey Padron MD Signed By: Joey Padron MD Signed Date/Time: 03/23/22 10:49 pm Transcribed By: HAKEEM Transcribed Date/Time: 03/23/22 10:48 pm Vital Signs Most recent to oldest 1 2 3 [Reference Range]: Weight 128.2 kg (03/25/22 1:03 AM) Oxygen Saturation [94-100 100 % 98 % 96 % %] (03/29/22 1:28 PM) (03/29/22 8:11 AM) (03/28/22 11:10 PM) Pulse Rate [55-90 bpm] 79 bpm 64 bpm 63 bpm (03/29/22 1:28 PM) (03/29/22 8:11 AM) (03/28/22 11:10 PM) Blood Pressure 119/86 mm Hg 109/53 mm Hg 107/56 mm Hg [90-138/55-84 mm Hg] (03/29/22 1:28 PM) (03/29/22 8:11 AM) (03/06 09/24 11:10 PM) Respiratory Rate [16-30 20 br/min 18 br/min 18 br/mi n br/min] (03/29/22 1:28 PM) (03/29/22 9:15 AM) (03/29/22 9:15 AM) Temperature [96.8-100.4 97.9 DegF 97.7 DegF 98.0 Deg F DegF] (03/29/22 1:28 PM) (03/29/22 8:11 AM) (03/28/22 11:10 PM) Liters per Minute 2 L/min 2 L/min 2 L/min (03/29/22 1:28 PM) (03/28/22 11:10 PM) (03/28/22 8:06 PM) Mode of Delivery (Oxygen) Nasal cannula Room air Nasal cannula (03/29/22: PM) (03/29/22 8:11 AM) (03/28/22 11:10 PM) Blood pressure sites Arm, right Arm, right Arm, right (03/29/22:28 PM) (03/29/22 8:11 AM) (03/28/22 11:10 PM) Temperature Route Oral Oral Oral (03/29/22:28 PM) (03/29/22 8:11 AM) (03/28/22 11:10 PM) Weight Obtained Via Bed scale (03/25/22 1:03 AM) Social History Social History Type Response Smoking Status Never (less than 100 in life time) entered on: 05/02/20 Sex Portable XR Chest Views [facility]SP[facility]ers[facility] , CIS S: TRANSCRIJoey Martin MD: VERIFY Event Display: Result: Authored Date: [id number] Chest Portable Hx of Present Illness: overdose; Reason: Shortness of Breath; Clinical Question(s): CHF COMPARISON: 01/19/2022 FINDINGS: LINES AND TUBES: None. LUNGS AND PLEURA: Low lung volumes with bibasilar opacities and bronchovascular crowding. Hazy opacification of the lungs bilaterally. HEART, MEDIASTINUM AND TAVO: Heart is normal in size. Normal mediastinal and hilar contour. BONES AND SOFT TISSUES: No acute abnormality. IMPRESSION: Low lung volumes. Hazy opacification the lungs bilaterally may reflect posterior layering effusions or edema WSN: [id number] Ordering Physician: Leora Hopson Dictated By: Joey Padron MD Dictated Date/Time: 03/23/22 10:49 p Reviewed By: Joey Padron MD Signed By: Joey Padron MD Signed Date/Time: 03/23/22 10:49 pm Transcribed By: HAKEEM Transcribed Date/Time: 03/23/22 10:48 pm XR Foot - right GE 3 Views [facility] , CIS S: TRANSCRIJoey Martin MD: VERIFY Event Display: Result: Authored Date: [id number] Foot Min 3 Views Right, 3 views Hx of Present Illness: Pain. COMPARISON: 01/23/2022 FINDINGS: Status post transmetatarsal amputation of all digits. Amputation sites appear sharp without evidenceof osteomyelitis. No fracture. Chronic smooth periosteal reaction distal tibia likely due to chronichyperemia. Plantar ulceration is suspected at the level of the metatarsal bases. IMPRESSION: No acute osseous abnormality. Plantar ulceration suspected in a similar location compared to prior examination at the base of the metatarsals. WSN: [id number] Ordering Physician: Leora Hopson Dictated By: Joey Padron MD Dictated Date/Time: 03/23/22 10:50 p Reviewed By: Joey Padron MD Signed By: Joey Padron MD Signed Date/Time: 03/23/22 10:50 pm Transcribed By: HAKEEM Transcribed Date/Time: 03/23/22 10:49 pm Patient Care team information PersonnelName: Afshan Chaves MD Address: Address: [address], [address] [place] [address]-
--- OUTSIDE RECORDS SUMMARY | 2022-05-25 02:41 | XMS_ITS | Continuity of Care Document ---
:1970 Author Organization [facility] Address [address] [place] [address]- Care Team Providers Name Role Phone Not on Staff, PCP Primary Care Physician Unavailable Encounter [facility] Date(s): 11/17/19 - 11/21/[address] [address]- [facility] Discharge Disposition: A-D/C Home Attending Physician: Jenna Hathaway DO Admitting Physician: Guillermo Patle MD Referring Physician: Not on Staff, Referring [...] kg, 08/05/19 12:00:00... Start Date: 08/08/19 Status: Orderedacamprosate 333 mg oral delayed release tablet 2 tablet = 666 mg, By Mouth, 3 times a day, # 180 tablet, 0 Refills, Maintenance, 11/21/19 13:39:00 EDT, CR Tablet, [facility], 185, cm, 11/21/19 8:47:00 EDT, Height, 104, kg, 11/17/19 18:28:00 EDT, Dry Weight Start Date: 11/21/19 Status: OrderedAqua cell ointment for 1 month supply Aqua cell ointment for 1 month supply, See Instructions, # 1 each, Refills 0, Tot. Refills 0, Maintenance, Aquacell ointment for 1 month supply, 08/08/19 11:15:00 EST, Supply, 186, cm, 08/08/19 5:36:00EST, Height, 106.4, kg, 08/05/19 12:00:00 EST, . Start Date: 08/08/19 Status: Orderedatorvastatin 10 mg oral tablet 1 tablet = 10 mg, By Mouth, Daily, # 30 tablet, 0 Refills, Maintenance, 11/21/19 13:34:00 EDT, Tablet, [facility], 185, cm, 11/21/19 8:47:00 EDT, Height, 104, kg, 11/17/19 18:28:00 EDT, Dry Weight Start Date: 11/21/19 Stop Date: 12/21/19 Status: OrderedCANE -1, FOR UNSTEADY GAIT CANE -1, FOR UNSTEADY GAIT, See Instructions, # 1 Unknown, Refills 0, Tot. Refills 0, Maintenance, ONE CANE FOR UNSTEADY GAIT, 08/08/19 9:46:00 EST, Supply Start Date: 08/08/19 Status: OrderedclonazePAM 1 mg oral tablet 1 tablet = 1 mg, By Mouth, 2 times a day, PRN Anxiety, # 10 tablet, 0 Refills, Maintenance, 11/20/2012:34:00 EDT, Tablet, [facility], 185, cm, 11/21/19 8:47:00 EDT, Height, 104, kg, 11/17/19 18:28:00 EDT, Dry Weight Start Date: 11/21/19 Stop Date: 11/26/19 Status: OrderedcloNIDine 0.1 mg oral tablet 0.3 mg, 3, tablet, By Mouth, 3 times a day, # 270 tablet, Refills 0, Tot. Refills 0, Maintenance, 11/21/19 13:34:00 EDT, Route to Pharmacy Electronically, [facility], 185, cm, 11/21/19 8:47:00 EDT, Height, 104, kg, 11/17/19 18:28:00 EDT,... Start Date: 11/21/19 Stop Date: 12/21/19 Status: OrderedDiabetic Shoes and diabetic foot inserts with right toe fillers. One pair (2 shoes). Diabetic Shoes and diabetic foot inserts with right toe fillers. One pair (2 shoes)., See Instructions, # 2 each, Refills 0, Tot. Refills 0, Maintenance, Diagnosis: Diabetic foot ulcers with partial amputations, 11/12/19 11:45:00 EDT, Supply Start Date: 11/12/19 Status: Orderedfolic acid 1 mg oral tablet 1 mg, 1, tablet, By Mouth, Daily, # 30 tablet, Refills 0, Tot. Refills 0, Maintenance, 11/12/19 11:51:00 EDT, Route to Pharmacy Electronically, [facility], 184, cm, 11/11/19 20:33:00 EDT,Height, 100, kg, 11/07/19 9:02:00 EDT, Dry Weight Start Date: 11/12/19 Status: OrderedGlucose Monitor See Instructions, # 1 each, Maintenance, to check blood gluose QID, 11/21/19 13:35:00 EDT, Supply, 185, cm, 11/21/19 8:47:00 EDT, Height, 104, kg, 11/17/19 18:28:00 EDT, Dry Weight Start Date: 11/21/19 Status: Orderedinsulin lispro 100 u/ml subcutaneous injection See Instructions, 7-21 units Subcutaneous Injection 3 times a day before meals, # 15 mL, 0 Refills, Maintenance, 11/12/19 11:53:00 EDT, Injection, [facility], << Sliding Scale Comments >>; 80 - 129 7 units Call if less than 100; 130 -... Start Date: 11/12/19 Status: OrderedLantus 100 u/ml subcutaneous solution = 65 units, Subcutaneous Injection, Daily at bedtime, # 15 mL, 0 Refills, Maintenance, 11/21/19 13:34:00 EDT, Injection, [facility], 185, cm, 11/21/19 8:47:00 EDT, Height, 104, kg, 11/17/19 18:28:00 EDT, Dry Weight Start Date: 11/21/19 Stop Date: 12/21/19 Status: Orderedlinezolid 600 mg oral tablet 1 tablet = 600 mg, By Mouth, Every 12 hours, for 3 days, # 6 tablet, 0 Refills, Acute 11/24/19 13:34:00 EDT, 11/21/19 13:34:00 EDT, Tablet, [facility], 185, cm, 11/21/19 8:47:00 EDT, Height, 104, kg, 11/17/19 18:28:00 EDT, Dry Weight Start Date: 11/21/19 Stop Date: 11/24/19 Status: Orderedlisinopril 40 mg oral tablet 1 tablet = 40 mg, By Mouth, Daily, # 30 tablet, 0 Refills, Maintenance, 11/21/19 13:34:00 EDT, Tablet, [facility], 185, cm, 11/21/19 8:47:00 EDT, Height, 104, kg, 11/17/19 18:28:00 EDT, Dry Weight Start Date: 11/21/19 Stop Date: 12/21/19 Status: Orderedmethadone 10 mg oral tablet = 60 mg, By Mouth, Daily, 0 Refills, Maintenance, 11/21/19 13:37:00 EDT, Tablet, Partial fill upon patient request Start Date: 11/21/19 Status: Orderedmultivitamin Multiple Vitamins oral capsule 1 capsule, By Mouth, Daily, # 30 capsule, 0 Refills, Maintenance, 11/12/19 11:53:00 EDT, Capsule, [facility], 1 capsule By Mouth Daily,x30 days, 184, cm, 11/11/19 20:33:00 EDT, Height, 100, kg, 11/07/19 9:02:00 EDT, Dry Weight Start Date: 11/12/19 Stop Date: 12/12/19 Status: OrderedoxyCODONE 15 mg oral tablet 1 tablet = 15 mg, By Mouth, Every 6 hours, PRN as needed for pain, # 20 tablet, 0 Refills, Acute 11/26/19 13:36:00 EDT, 11/21/19 13:36:00 EDT, Tablet, [facility], Partial fill upon patient request, 185, cm, 11/21/19 8:47:00 EDT, Height,... Start Date: 11/21/19 Stop Date: 11/26/19 Status: OrderedQUEtiapine 100 mg oral tablet 100 mg, 1, tablet, By Mouth, 2 times a day, # 60 tablet, Refills 0, Tot. Refills 0, Maintenance, 11/21/19 13:34:00 EDT, Route to Pharmacy Electronically, [facility], 185, cm, 11/21/19 8:47:00 EDT, Height, 104, kg, 11/17/19 18:28:00 EDT,... Start Date: 11/21/19 Stop Date: 12/21/19 Status: Orderedsilver topical gel See Instructions, Topically Daily for foot wounds care, # 1 each, 0 Refills, Maintenance, 11/12/19 11:54:00 EDT, Gel, [facility], Topically Daily for foot wounds care, 184, cm, 11/11/19 20:33:00 EDT, Height, 100, kg, 11/07/19 9:02:00 EDT... Start Date: 11/12/19 Status: Orderedthiamine 100 mg oral tablet 100 mg, 1, tablet, By Mouth, Daily, # 30 tablet, Refills 0, Tot. Refills 0, Maintenance, 11/21/19 13:34:00 EDT, Route to Pharmacy Electronically, [facility], 185, cm, 11/21/19 8:47:00 [...] for Microbiology Reports Name Date Blood Culture 11/16/19 Microbiology Reports TEST:Blood Culture STATUS:Unauthenticated BODY SITE: SOURCE:Blood COLLECTED DATE/TIME:11/16/19 10:00 PMBlood Culture SPECIMEN DESCRIPTION : BLOOD R ARM SPECIAL REQUESTS : NONE CULTURE : NO GROWTH 4 DAYS REPORT STATUS : PRELIMINARY REPORT Radiology Reports Exam Date Time Procedure Performing Provider Status 11/16/19 8:32 PM Foot Min 3 Views Left Tk Hernandez; Auth (Arthur ified) Notes:(Foot Min 3 Views Left) Reason For Exam: InfectionRESULT: Foot Min 3 Views Left Foot Min 3 Views Left, 3 views Refer to EMR; Reason: Infection; Clinical Question(s): Osteomyelitis; Hx of Present Illness: B L foot wounds not responding to PO abx; Other Objective Findings: Both feet dressed with saturated dirty dressing. Pt unwilling to remove dressings. COMPARISON: 11/06/2019 FINDINGS: Postsurgical changes demonstrated throughout the hindfoot, first metatarsal, fourth metatarsal, and fifth metatarsal. No acute osseous abnormality and no evidence of acute osteomyelitis. Decreased soft tissue swelling involving the lateral aspect of the forefoot. IMPRESSION: 1. No acute osseous abnormality. 2. Decreased soft tissue swelling in the lateral aspect of the forefoot. WSN: [id number] Ordering Physician: James Greenberg Dictated By: Marco Daley DO Dictated Date/Time: 11/16/19 8:48 pm Reviewed By: Marco Daley DO Signed By: Marco Daley DO Signed Date/Time: 11/16/19 8:48 pm Transcribed By: HAKEEM Transcribed Date/Time: 11/16/19 8:47 pm Exam Date Time Procedure Performing Provider Status 11/16/19 8:32 PM Foot Min 3 Views Right Tk Hernandez; Auth (Ve rified) Notes:(Foot Min 3 Views Right) Reason For Exam: InfectionRESULT: Foot Min 3 Views Right Ankle Min 3 Views Right, Foot Min 3 Views Right Refer to EMR; Reason: Infection; Clinical Question(s): Osteomyelitis; Hx of Present Illness: B L foot wounds not responding to PO abx COMPARISON: Foot radiographs 11/06/2019 FINDINGS: Ankle: No fracture or acute osseous abnormality. Minimal osteophytic spurring of the lateral malleolus. Mortise is intact. Mild soft tissue swelling about the ankle. Foot: Status post transmetatarsal amputation from the first through fifth digits. Appearance is unchanged compared with prior exam. No acute osseous abnormality. There is soft tissue swelling overlyingthe stump with a few surgical clips. The degree of swelling appears less pronounced. Suspect skin ulc eration overlying the heel, however no abnormality of the calcaneus identified. IMPRESSION: 1. No acute osseous abnormality to suggest osteomyelitis. 2. Postsurgical changes of the forefoot with decreased soft tissue swelling in the forefoot and unchanged ulceration over the calcaneus. 3. Mild soft tissue swelling about the ankle. WSN: [id number] Ordering Physician: James Greenberg Dictated By: Marco Daley DO Dictated Date/Time: 11/16/19 8:46 pm Reviewed By: Marco Daley DO Signed By: Marco Daley DO Signed Date/Time: 11/16/19 8:46 pm Transcribed By: HAKEEM Transcribed Date/Time: 11/16/19 8:43 pm Exam Date Time Procedure Performing Provider Status 11/16/19 8:32 PM Ankle Min 3 Views Right Tk Hernandez; Auth (V erified) Notes:(Ankle Min 3 Views Right) Reason For Exam: InfectionRESULT: Ankle Min 3 Views Right Ankle Min 3 Views Right, Foot Min 3 Views Right Refer to EMR; Reason: Infection; Clinical Question(s): Osteomyelitis; Hx of Present Illness: B L foot wounds not responding to PO abx COMPARISON: Foot radiographs 11/06/2019 FINDINGS: Ankle: No fracture or acute osseous abnormality. Minimal osteophytic spurring of the lateral malleolus. Mortise is intact. Mild soft tissue swelling about the ankle. Foot: Status post transmetatarsal amputation from the first through fifth digits. Appearance is unchanged compared with prior exam. No acute osseous abnormality. There is soft tissue swelling overlyingthe stump with a few surgical clips. The degree of swelling appears less pronounced. Suspect skin ulc eration overlying the heel, however no abnormality of the calcaneus identified. IMPRESSION: 1. No acute osseous abnormality to suggest osteomyelitis. 2. Postsurgical changes of the forefoot with decreased soft tissue swelling in the forefoot and unchanged ulceration over the calcaneus. 3. Mild soft tissue swelling about the ankle. WSN: [id number] Ordering Physician: James Greenberg Dictated By: Marco Daley DO Dictated Date/Time: 11/16/19 8:46 pm Reviewed By: Marco Daley DO Signed By: Marco Daley DO Signed Date/Time: 11/16/19 8:46 pm Transcribed By: HAKEEM Transcribed Date/Time: 11/16/19 8:43 pm Vital Signs Most recent to oldest 1 2 3 [Reference Range]: Height 185 cm 185 cm 185 cm (11/21/19 8:47 AM) (11/21/19 8:00 AM) (11/20/19 10: 42 PM) Weight 104 kg (11/17/19 1:22 PM) Oxygen Saturation [94-100 %] 99 % 97 % 97 % (11/21/19 8:00 AM) (11/20/19 10:42 PM) (11/20/19 8: 35 PM) Pulse Rate [55-90 bpm] 67 bpm 62 bpm 59 bpm (11/21/19 8:00 AM) (11/20/19 10:42 PM) (11/20/19 8: 35 PM) Body Mass Index [18.5-24.99] 30.39 *>HHI* (11/17/19 1:22 PM) Blood Pressure [90-138/55-84 114/65 mm Hg 114/65 mm Hg 111 /66 mm Hg mm Hg] (11/21/19 8:12 AM) (11/21/19 8:00 AM) (11/20/19 10: 42 PM) Respiratory Rate [16-30 18 br/min 18 br/min 18 br/mi n br/min] (11/21/19 1:57 PM) (11/21/19 12:50 PM) (11/21/19 9: 12 AM) Temperature [96.8-100.4 DegF] 98.1 DegF 98.1 DegF 98 .3 DegF (11/21/19 8:47 AM) (11/20/19 10:42 PM) (11/20/19 8: 35 PM) Mode of Delivery (Oxygen) Room air Room air Room a ir (11/21/19 8:00 AM) (11/20/19 10:42 PM) (11/20/19 8: 35 PM) Blood pressure sites Arm, left Arm, right Arm, right (11/21/19 8:00 AM) (11/20/19 10:42 PM) (11/20/19 8: 35 PM) Temperature Route Oral Oral Oral (11/21/19 8:47 AM) (11/20/19 10:42 PM) (11/20/19 8: 35 PM) Dry Weight 104 kg (11/17/19 1:22 PM) Weight Obtained Via Bed scale (11/17/19 1:22 PM) Dry Weight Obtained Via Bed scale (11/17/19 1:22 PM) Social History Social History Type Response Smoking Status Never smoker; Tobacco user i n household: No entered on: 11/28/17 Sex
--- OUTSIDE RECORDS SUMMARY | 2022-05-25 02:42 | XMS_ITS | Continuity of Care Document ---
:1970 Author Organization [facility] Address Unavailable , Care Team Providers Name Role Phone Not on Staff, PCP Primary Care Physician Unavailable [place] [facility] [place] [facility] Allergies, Adverse Reactions, Alerts Substance Reaction Severity Status penicillin1, 2, 3, 4 rash Unknown Active aspirin rash Unknown Active ketorolac hives Unknown Active Naprosyn rash Unknown Active Compazine rash Unknown Active 1Tolerated extended course of pip/tazo during November 2020 [id number] tolerated ampicillin/sulbactam during 01/2020 [id number] has tolerated piperacillin/tazobactam (08/09/15), cephalexin (01/19/16) and [...] 0 Refills, Maintenance, 03/18/20 11:06:00 EDT, Tablet, [facility], 183, cm, 03/18/20 7:55:00 [...] 02/14/20 11:33:00 EDT, Route to Pharmacy Electronically, [facility], 186, cm, 02/14/20 11:26:00 [...]
--- OUTSIDE RECORDS SUMMARY | 2022-05-25 02:42 | XMS_ITS | Continuity of Care Document ---
:1970 Author Organization [facility] Address [address] [place] [address]- Care Team Providers Name Role Phone Quincy SHAFER, Lis Castellanos Primary Care Physician Encounter [facility] Date(s): 02/09/20 - 02/14/[address] [address]- [facility] Discharge Disposition: A-D/C Home Attending Physician: Sukumar Jenkins MD Admitting Physician: Leidy Ovalle MD Referring Physician: Not on Staff, Referring MD Allergies, Adverse Reactions, Alerts Substance Reaction Severity Status penicillin1, 2, 3 rash Unknown Active aspirin rash Unknown Active ketorolac hives Unknown Active Naprosyn rash Unknown Active Compazine rash Unknown Active 1Has tolerated ampicillin/sulbactam during 01/2020 [id number] has tolerated piperacillin/tazobactam (08/09/15), cephalexin (01/19/16) and cefazolin (many occasions).3patient tolerates meropenem Immunizations Given and Recorded Vaccine [...] Daily, # 30 tablet, 0 Refills, Maintenance, 02/14/20 11:32:00 EDT, Tablet, [facility], 186, cm, 02/14/20 11:26:00 EDT, Height, 100.5, kg, 02/10/20 6:42:00 EDT,Dry Weight Start Date: 02/14/20 Stop Date: 03/15/20 Status: OrderedcloNIDine 0.2 mg oral tablet 0.2 mg, 1, tablet, By Mouth, 3 times a day, # 90 tablet, Refills 0, Tot. Refills 0, Maintenance, 02/14/20 11:33:00 EDT, Route to Pharmacy Electronically, [facility], 186, cm, 02/14/20 11:26:00 EDT, Height, 100.5, kg, 02/10/20 6:42:00 EDT... Start Date: 02/14/20 Status: Orderedferrous sulfate 325 mg oral enteric coated tablet 325 mg, By Mouth, Daily, # 30 tablet, Refills 0, Tot. Refills 0, Maintenance, 02/14/20 11:34:00 EDT,Route to Pharmacy Electronically, [facility], 186, cm, 02/14/20 11:26:00 EDT, Height, 100.5, kg, 02/10/20 6:42:00 EDT, Dry Weight Start Date: 02/14/20 Status: Orderedfolic acid 1 mg oral tablet 1 mg, 1, tablet, By Mouth, Daily, # 30 tablet, Refills 0, Tot. Refills 0, Maintenance, 11/12/19 11:51:00 EDT, Route to Pharmacy Electronically, [facility], 184, cm, 11/11/19 20:33:00 EDT,Height, 100, kg, 11/07/19 9:02:00 EDT, Dry Weight Start Date: 11/12/19 Status: Orderedinsulin glargine 100 units/mL subcutaneous solution = 50 units, Subcutaneous Injection, Daily at bedtime, # 15 mL, 0 Refills, Maintenance, 02/07/20 9:57:00 EDT Start Date: 02/07/20 Stop Date: 03/08/20 Status: Orderedinsulin lispro 100 u/ml subcutaneous injection See Instructions, 2-10 units Subcutaneous Injection 3 times a day before meals, # 15 mL, 0 Refills, Maintenance, 02/07/20 15:04:00 EDT, Injection, [facility], 150 - 199 2 units; 200 - 2494 units ; 250 - 299 6 units ; 300 - 349 8... Start Date: 02/07/20 Status: Orderedmethadone 10 mg oral tablet = 90 mg, By Mouth, Daily, 0 Refills, Maintenance, 11/21/19 13:37:00 EDT, Tablet, Partial fill upon patient request Start Date: 11/21/19 Status: Orderedmultivitamin Multiple Vitamins oral capsule 1 capsule, By Mouth, Daily, # 30 capsule, 0 Refills, Maintenance, 11/12/19 11:53:00 EDT, Capsule, [facility], 1 capsule By Mouth Daily,x30 days, 184, cm, 11/11/19 20:33:00 EDT, Height, 100, kg, 11/07/19 9:02:00 EDT, Dry Weight Start Date: 11/12/19 Stop Date: 12/12/19 Status: OrderedNeurontin 100 mg oral capsule 300 mg, 3, capsule, By Mouth, 3 times a day, # 270 capsule, Refills 0, Tot. Refills 0, Maintenance, 01/08/20 10:02:00 EDT, Route to Pharmacy Electronically, [facility], 186, cm, 01/07/20 23:30:00 EDT, Height, 97.7, kg, 12/31/19 20:13:00... Start Date: 01/08/20 Status: OrderedoxyCODONE 5 mg oral tablet 10 mg, 2, tablet, By Mouth, Every 8 hours, PRN, # 20 tablet, Refills 0, Tot. Refills 0, Maintenance,Pain , Severe, 02/14/20 11:34:00 EDT, Route to Pharmacy Electronically, [facility], Partial fill upon patient request, 186, cm, 02/14/20... Start Date: 02/14/20 Status: OrderedPen Goehner, 31 G x 8 mm BD Ultra Fine III See Instructions, # 100 each, Maintenance, use to inject insulin four times a day, 02/07/20 14:29:00EDT, Supply, 186, cm, 02/07/20 5:11:00 EDT, Height, 100, kg, 01/30/20 17:49:00 EDT, Dry Weight Start Date: 02/07/20 Status: OrderedQUEtiapine 100 mg oral tablet 100 mg, 1, tablet, By Mouth, 2 times a day, # 60 tablet, Refills 0, Tot. Refills 0, Maintenance, 02/14/20 11:33:00 EDT, Route to Pharmacy Electronically, [facility], 186, cm, 02/14/20 11:26:00 EDT, Height, 100.5, kg, 02/10/20 6:42:00 EDT... Start Date: 02/14/20 Stop Date: 03/15/20 Status: OrderedVitamin C 250 mg oral tablet 1 tablet = 250 mg, By Mouth, Daily, # 30 tablet, 0 Refills, Maintenance, 02/14/20 11:34:00 EDT, Tablet, [facility], 186, cm, 02/14/20 11:26:00 EDT, Height, 100.5, kg, 02/10/20 6:42:00 EDT, Dry Weight Start Date: 02/14/20 Status: Ordered Problem List Condition Effective Dates [...] Height 186 cm 186 cm 186 cm (02/14/20 11:26 AM) (02/14/20 8:10 AM) (02/13/20 2: 53 PM) Weight 100.5 kg (02/10/20 6:35 AM) Oxygen Saturation [94-100 %] 94 % 96 % 98 % (02/14/20 11:26 AM) (02/14/20 8:10 AM) (02/14/20 4: 00 AM) Pulse Rate [55-90 bpm] 84 bpm 80 bpm 78 bpm (02/14/20 11:26 AM) (02/14/20 8:10 AM) (02/14/20 4: 00 AM) Body Mass Index [18.5-24.99] 29.05 *H* (02/10/20 6:35 AM) Blood Pressure [90-138/55-84 123/74 mm Hg 119/58 mm Hg 138 /73 mm Hg mm Hg] (02/14/20 11:26 AM) (02/14/20 8:10 AM) (02/14/20 4: 00 AM) Respiratory Rate [16-30 18 br/min 17 br/min 17 br/mi n br/min] (02/14/20 11:26 AM) (02/14/20 9:50 AM) (02/14/20 9: 49 AM) Temperature [96.8-100.4 DegF] 98.4 DegF 98.2 DegF 98 .3 DegF (02/14/20 11:26 AM) (02/14/20 8:10 AM) (02/14/20 4: 00 AM) Mode of Delivery (Oxygen) Room air Room air Room a ir (02/14/20 11:26 AM) (02/14/20 8:10 AM) (02/14/20 4: 00 AM) Blood pressure sites Arm, left Arm, left Arm, left (02/14/20 11:26 AM) (02/14/20 8:10 AM) (02/14/20 4: 00 AM) Temperature Route Oral Oral Oral (02/14/20 11:26 AM) (02/14/20 8:10 AM) (02/14/20 4: 00 AM) Dry Weight 100.5 kg (02/10/20 6:35 AM) Weight Obtained Via Bed scale (02/10/20 6:35 AM) Dry Weight Obtained Via Bed scale (02/10/20 6:35 AM) Social History Social History Type Response Smoking Status Never smoker; Tobacco user i n household: No entered on: 11/28/17 Sex Male
--- OUTSIDE RECORDS SUMMARY | 2022-05-25 02:42 | XMS_ITS | Continuity of Care Document ---
:1970 Author Organization [facility] Address [address] [place] [address]- Care Team Providers Name Role Phone Not on Staff, PCP Primary Care Physician Unavailable [facility] Date[facility]s): 12/[facility]19 - 12/10/[address] [address]- [facility] Encounter Diagnosis Chronic ulcer skin (Final) - 12/10/19 Discharge Disposition: A-D/C Home Attending Physician: Robert Littlejohn MD Admitting Physician: Robert Littlejohn MD Referring Physician: Not on Staff, Referring [...] Refills, Maintenance, 12/03/19 11:40:00 EDT, CR Tablet, [facility], 186, cm, 11/27/19 22:48:00 EDT, Height, 100, kg, 11/27/19 22:48:00 EDT, Dry Weight Start Date: 12/03/19 Status: Orderedatorvastatin 10 mg oral tablet 1 tablet = 10 mg, By Mouth, Daily, # 30 tablet, 0 Refills, Maintenance, 11/21/19 13:34:00 EDT, Tablet, [facility], 185, cm, 11/21/19 8:47:00 EDT, Height, 104, kg, 11/17/19 18:28:00 EDT, Dry Weight Start Date: 11/21/19 Stop Date: 12/21/19 Status: OrderedclonazePAM 1 mg oral tablet 1 tablet = 1 mg, By Mouth, 2 times a day, PRN Anxiety, # 10 tablet, 0 Refills, Maintenance, 12/02/2010:54:00 EDT, Tablet, [facility], 186, cm, 11/27/19 22:48:00 EDT, Height, 100, kg, 11/27/19 22:48:00 EDT, Dry Weight Start Date: 12/03/19 Stop Date: 12/08/19 Status: OrderedcloNIDine 0.1 mg oral tablet 0.3 mg, 3, tablet, By Mouth, 3 times a day, # 270 tablet, Refills 0, Tot. Refills 0, Maintenance, 11/21/19 13:34:00 EDT, Route to Pharmacy Electronically, [facility], 185, cm, 11/21/19 8:47:00 EDT, Height, 104, kg, 11/17/19 18:28:00 EDT,... Start Date: 11/21/19 Stop Date: 12/21/19 Status: Orderedfolic acid 1 mg oral tablet 1 mg, 1, tablet, By Mouth, Daily, # 30 tablet, Refills 0, Tot. Refills 0, Maintenance, 11/12/19 11:51:00 EDT, Route to Pharmacy Electronically, [facility], 184, cm, 11/11/19 20:33:00 EDT,Height, 100, kg, 11/07/19 9:02:00 EDT, Dry Weight Start Date: 11/12/19 Status: Orderedinsulin lispro 100 u/ml subcutaneous injection See Instructions, 7-21 units Subcutaneous Injection 3 times a day before meals, # 15 mL, 0 Refills, Maintenance, 11/12/19 11:53:00 EDT, Injection, [facility], << Sliding Scale [...] 0 Refills, Maintenance, 11/21/19 13:34:00 EDT, Tablet, [facility], 185, cm, 11/21/19 8:47:00 EDT, [...] 0 Refills, Maintenance, 11/12/19 11:53:00 EDT, Capsule, [facility], 1 capsule By Mouth Daily,x30 days, 184, cm, 11/11/19 20:33:00 EDT, Height, 100, kg, 11/07/19 9:02:00 EDT, Dry Weight Start Date: 11/12/19 Stop Date: 12/12/19 Status: OrderedQUEtiapine 100 mg oral tablet 100 mg, 1, tablet, By Mouth, 2 times a day, # 60 tablet, Refills 0, Tot. Refills 0, Maintenance, 11/21/19 13:34:00 EDT, Route to Pharmacy Electronically, [facility], 185, cm, 11/21/19 8:47:00 EDT, Height, 104, kg, 11/17/19 18:28:00 EDT,... Start Date: 11/21/19 Stop Date: 12/21/19 Status: Orderedthiamine 100 mg oral tablet 100 mg, 1, tablet, By Mouth, Daily, # 30 tablet, Refills 0, Tot. Refills 0, Maintenance, 11/21/19 13:34:00 EDT, Route to Pharmacy Electronically, [facility], 185, cm, 11/21/19 8:47:00 [...] [Reference Range]: Height 185 cm 185 cm (12/09/19 10:59 PM) (12/09/19 10:57 PM) Weight 100.6 kg 100.6 kg (12/09/19 10:59 PM) (12/09/19 10:57 PM) Oxygen Saturation [94-100 100 % 100 % 100 % %] (12/10/19 11:29 AM) (12/10/19 8:30 AM) (12/10/19 3:11 AM) Pulse Rate [55-90 bpm] 70 bpm 76 bpm 79 bpm (12/10/19 11:29 AM) (12/10/19 8:30 AM) (12/10/19 3:11 AM) Body Mass Index 29.39 [18.5-24.99] *H* (12/09/19 10:57 PM) Blood Pressure 116/67 mm Hg 128/68 mm Hg 132/70 mm Hg [90-138/55-84 mm Hg] (12/10/19 11:29 AM) (12/10/19 8:30 AM) (12/10/19 3:11 AM) Respiratory Rate [16-30 20 br/min 16 br/min 16 br/mi n br/min] (12/10/19 4:15 PM) (12/10/19 3:15 PM) (12/10/19 11:29 AM) Temperature [96.8-100.4 97.8 DegF 98.1 DegF 98.4 Deg F DegF] (12/10/19 11:29 AM) (12/10/19 8:30 AM) (12/09/19 10:57 PM) Liters per Minute 0 L/min (12/10/19 8:30 AM) Mode of Delivery (Oxygen) Room air Room air Room a ir (12/10/19 11:29 AM) (12/10/19 8:30 AM) (12/10/19 3:11 AM) Blood pressure sites Arm, left Arm, left Arm, left (12/10/19 11:29 AM) (12/10/19 8:30 AM) (12/09/19 10:57 PM) Temperature Route Oral Oral Oral (12/10/19 11:29 AM) (12/10/19 8:30 AM) (12/09/19 10:57 PM) Dry Weight 100.6 kg 100.6 kg (12/09/19 10:59 PM) (12/09/19 10:57 PM) Weight Obtained Via Patient/family stated (12/09/19 10:57 PM) Dry Weight Obtained Via Patient/family stated (7/6/20 10:57 PM) Social History Social History Type Response Smoking Status Never smoker; Tobacco user i n household: No entered on: 11/28/17 Sex
--- OUTSIDE RECORDS SUMMARY | 2022-05-25 02:42 | XMS_ITS | Continuity of Care Document ---
:1970 Author Organization [facility] Address Unavailable , Care Team Providers Name Role Phone Not on Staff, PCP Primary Care Physician Unavailable Encounter [facility] Date(s): 04/21/21 - 05/21/21 [facility] Attending Physician: Parker Negrete Admitting Physician: AdmParker almanzar Referring Physician: Parker Negrete Allergies, Adverse Reactions, Alerts Substance Reaction Severity Status penicillin1, 2, 3, 4 rash Unknown Active aspirin rash Unknown Active ketorolac hives Unknown Active Naprosyn rash Unknown Active Compazine rash Unknown Active 1Tolerated extended course of pip/tazo during November 2020 [id number] tolerated ampicillin/sulbactam during 01/2020 [id number] has tolerated piperacillin/tazobactam (08/09/15), cephalexin (01/19/16) and [...] 0 Refills, Maintenance, 03/18/20 11:06:00 EDT, Tablet, [facility], 183, cm, 03/18/20 7:55:00 EDT, [...] 02/14/20 11:33:00 EDT, Route to Pharmacy Electronically, [facility], 186, cm, 02/14/20 11:26:00 [...]
--- OUTSIDE RECORDS SUMMARY | 2022-05-25 02:42 | XMS_ITS | Continuity of Care Document ---
:1970 Author Organization [facility] Address [address] [place] [id number]- Care Team Providers Name Role Phone Not on Staff, PCP Primary Care Physician Unavailable [facility]counter [facility] Date(s): 10/15/20 - 10/15/[address] [address] Encounter Diagnosis Chronic foot ulcer (Final) - 10/15/20 Diabetes (Final) - 10/15/20 Discharge Disposition: A-D/C AMA Attending Physician: Marie Hatfield MD Admitting Physician: Candice SHAFER, Leobardo Del Rio Referring Physician: Not on Staff, Referring MD Allergies, Adverse Reactions, Alerts Substance Reaction Severity Status aspirin rash Unknown Active ketorolac hives Unknown Active Naprosyn rash Unknown Active Compazine rash Unknown Active Immunizations Given and Recorded Vaccine Date Status [...] 0 Refills, Maintenance, 02/14/20 11:32:00 EDT, Tablet, [facility], 186, cm, 02/14/20 11:26:00 EDT, Height, 100.5, kg, 02/10/20 6:42:00 EDT,Dry Weight Start Date: 02/14/20 Stop Date: 03/15/20 Status: OrderedcloNIDine 0.1 mg oral tablet 0.2 mg, 2, tablet, By Mouth, 3 times a day, # 42 tablet, Refills 0, Tot. Refills 0, Maintenance, 05/01/20 13:00:00 EST, Route to Pharmacy Electronically, [facility], 187, cm, 05/01/20 8:07:00 EST, Height, 104.6, kg, 04/24/20 14:02:00 EST... Start Date: 05/01/20 Stop Date: 05/08/20 Status: Orderedgabapentin 600 mg oral tablet 1 tablet = 600 mg, By Mouth, 3 times a day, # 21 tablet, 0 Refills, Maintenance, 03/18/20 11:06:00 EDT, Tablet, [facility], 183, cm, 03/18/20 7:55:00 EDT, Height, 101.1, kg, 03/11/20 17:51:00 EDT, Dry Weight Start Date: 03/18/20 Stop Date: 03/25/20 Status: OrderedKeyur Aquinoik Pen 100 units/mL subcutaneous injection = 8 units, Subcutaneous Injection, 3 times a day before meals, # 3 mL, 0 Refills, Maintenance, 10/15/20 11:15:00 EDT, Solution, Partial fill upon patient request if the prescription is for a schedule II opioid drug. Start Date: 10/15/20 Status: OrderedLantus Solostar Pen 100 units/mL subcutaneous solution = 20 units, Subcutaneous Injection, Daily at bedtime, # 10 mL, 0 Refills, Maintenance, 10/15/20 11:15:00 EDT, Solution, Partial fill upon patient request if the prescription is for a schedule II opioiddrug. Start Date: 10/15/20 Status: Orderedlisinopril 10 mg oral tablet 10 mg, 1, tablet, By Mouth, Daily, # 90 tablet, Refills 0, Maintenance, 10/15/20 11:14:00 EDT, Partial fill upon patient request if the prescription is for a schedule II opioid drug. Start Date: 10/15/20 Status: Orderedmethadone 40 mg oral tablet, dispersible = 90 mg, By Mouth, Daily, 0 Refills, Maintenance, 04/24/20 11:46:00 EST, Partial fill upon patient request Start Date: 04/24/20 Status: Orderedmultivitamin Multiple Vitamins oral capsule 1 capsule, By Mouth, Daily, # 30 capsule, 0 Refills, Maintenance, 11/12/19 11:53:00 EDT, Capsule, [facility], 1 capsule By Mouth Daily,x30 days, 184, cm, 11/11/19 20:33:00 EDT, Height, 100, kg, 11/07/19 9:02:00 EDT, Dry Weight Start Date: 11/12/19 Stop Date: 12/12/19 Status: OrderedQUEtiapine 100 mg oral tablet 100 mg, 1, tablet, By Mouth, 2 times a day, # 60 tablet, Refills 0, Tot. Refills 0, Maintenance, 02/14/20 11:33:00 EDT, Route to Pharmacy Electronically, [facility], 186, cm, 02/14/20 11:26:00 EDT, Height, 100.5, kg, 02/10/20 6:42:00 EDT... Start Date: 02/14/20 Stop Date: 03/15/20 Status: OrderedXanax 2 mg oral tablet 1 tablet = 2 mg, By Mouth, 3 times a day, 0 Refills, Maintenance, 05/04/20 10:39:00 EST, Partial fill upon patient request Start Date: 05/04/20 Status: Ordered Problem List Condition Effective Dates [...] treatment for compartment syndrome.2rt 2 nd Results Radiology Reports Exam Date Time Procedure Performing Provider Status 10/15/20 2:35 AM Foot Min 3 Views Right Jayme Alanis; Auth ( Verified) Notes:(Foot Min 3 Views Right) Reason For Exam: InfectionRESULT: Foot Min 3 Views Right Foot Min 3 Views Right, 3 views Hx of Present Illness: pt recently admitted in [place] with osteomyelitis , had IVABX and went to rehab; Reason: Infection; Clinical Question(s): Osteomyelitis COMPARISON: 05/04/2020 FINDINGS: Status post amputation of the forefoot to the level of the proximal metatarsals. Bony margins at thelevel of the amputation remain sharp and intact without bone destruction or demineralization. There are no fractures. There is generalized edema of the soft tissues. Multiple félix are seen in the soft tissues at thelevel of the stump. IMPRESSION: Status post transmetatarsal amputation. No radiographic findings of acute osteomyelitis. WSN: [id number] Ordering Physician: Demetrio Olivera Dictated By: Joshua Harmon MD Dictated Date/Time: 10/15/20 8:37 am Reviewed By: Joshua Harmon MD Signed By: Joshua Harmon MD Signed Date/Time: 10/15/20 8:37 am Transcribed By: HAKEEM Transcribed Date/Time: 10/15/20 8:33 am Exam Date Time Procedure Performing Provider Status 10/15/20 2:35 AM Foot Min 3 Views Left Jayme Alanis; Sarahi (V erified) Notes:(Foot Min 3 Views Left) Reason For Exam: InfectionRESULT: Foot Min 3 Views Left Foot Min 3 Views Left, 3 views Hx of Present Illness: pt recently admitted in [place] with osteomyelitis , had IVABX and went to rehab; Reason: Infection; Clinical Question(s): Osteomyelitis COMPARISON: 05/04/2020 FINDINGS: No fractures nor areas of bone destruction or demineralization to suggest active osteomyelitis. There is stable appearance to the partially resected fourth and fifth metatarsals. Status post talonavicular and calcaneocuboid arthrodesis with screws in place. Bridging screw also seen within the first metatarsal. There is edema of the soft tissues particularly about the lateral aspect with ulceration at the level of the base of the fifth metatarsal with the adjacent bone appearing intact. IMPRESSION: Postsurgical changes. Edematous soft tissues particularly laterally with focal ulceration near the base of the fifth metatarsal but there are no bony changes to suggest acute osteomyelitis. WSN: [id number] Ordering Physician: Demetrio Olivera Dictated By: Joshua Harmon MD Dictated Date/Time: 10/15/20 8:32 am Reviewed By: Joshua Harmon MD Signed By: Joshua Harmon MD Signed Date/Time: 10/15/20 8:32 am Transcribed By: HAKEEM Transcribed Date/Time: 10/15/20 8:27 am Vital Signs Most recent to oldest 1 2 3 [Reference Range]: Oxygen Saturation [94-100 %] 95 % 100 % 96 % (10/15/20 2:05 PM) (10/15/20 7:38 AM) (10/15/20 3:2 8 AM) Pulse Rate [55-90 bpm] 88 bpm 70 bpm 71 bpm (10/15/20 2:05 PM) (10/15/20 7:38 AM) (10/15/20 3:2 8 AM) Blood Pressure [90-138/55-84 130/63 mm Hg 158/94 mm Hg 107 /61 mm Hg mm Hg] (10/15/20 2:05 PM) *H* (10/15/20 4:07 AM) (10/15/20 7:38 AM) Respiratory Rate [16-30 18 br/min 18 br/min 11 br/mi n br/min] (10/15/20 2:05 PM) (10/15/20 7:38 AM) *L* (10/15/20 3:28 AM ) Temperature [96.8-100.4 DegF] 97.8 DegF 98.4 DegF (10/15/20 2:05 PM) (10/15/20 12:12 AM) Mode of Delivery (Oxygen) Room air Room air Room a ir (10/15/20 2:05 PM) (10/15/20 7:38 AM) (10/15/20 3:2 8 AM) Blood pressure sites Arm, left Arm, right Arm, left (10/15/20 2:05 PM) (10/15/20 7:38 AM) (10/15/20 4:0 7 AM) Temperature Route Oral Oral (10/15/20 2:05 PM) (10/15/20 12:12 AM) Social History Social History Type Response Smoking Status Never (less than 100 in life time) entered on: 05/02/20 Sex Male
--- OUTSIDE RECORDS SUMMARY | 2022-05-25 02:42 | XMS_ITS | Continuity of Care Document ---
:1970 Author Organization [facility] Address [address] [place] [address]- Care Team Providers Name Role Phone Not on Staff, PCP Primary Care Physician Unavailable [facility] Date[facility]s): 10/19/20 - 10/19/[address] [address] Discharge Disposition: A-D/C AMA Attending Physician: Rosa Wang MD Admitting Physician: Rosa Wang MD Referring Physician: Not on Staff, Referring MD Allergies, Adverse Reactions, Alerts Substance Reaction Severity Status penicillin1, 2, 3 rash Unknown Active aspirin rash Unknown Active ketorolac hives Unknown Active Naprosyn rash Unknown Active Compazine rash Unknown Active 1Has tolerated ampicillin/sulbactam during 01/2020 [id number] has tolerated piperacillin/tazobactam (08/09/15), cephalexin (01/19/16) and [...] 0 Refills, Maintenance, 02/14/20 11:32:00 EDT, Tablet, [facility], 186, cm, 02/14/20 11:26:00 EDT, Height, 100.5, kg, 02/10/20 6:42:00 EDT,Dry Weight Start Date: 02/14/20 Stop Date: 03/15/20 Status: OrderedcloNIDine 0.1 mg oral tablet 0.2 mg, 2, tablet, By Mouth, 3 times a day, # 42 tablet, Refills 0, Tot. Refills 0, Maintenance, 05/01/20 13:00:00 EST, Route to Pharmacy Electronically, [facility], 187, cm, 05/01/20 8:07:00 EST, Height, 104.6, kg, 04/24/20 14:02:00 EST... Start Date: 05/01/20 Stop Date: 05/08/20 Status: Orderedgabapentin 300 mg oral capsule 600 mg, Capsule, By Mouth, 10/19/20 21:00:00 EDT Start Date: 10/19/20 Stop Date: 10/19/20 Status: Completedgabapentin 600 mg oral tablet 1 tablet = 600 mg, By Mouth, 3 times a day, # 21 tablet, 0 Refills, Maintenance, 03/18/20 11:06:00 EDT, Tablet, [facility], 183, cm, 03/18/20 7:55:00 EDT, Height, 101.1, kg, 03/11/20 17:51:00 EDT, Dry Weight Start Date: 03/18/20 Stop Date: 03/25/20 Status: OrderedKeyur Kwik Pen 100 units/mL subcutaneous injection = 8 [...] opioid drug. Start Date: 10/15/20 Status: Orderedmethadone 10 mg oral tablet 30 mg, Tablet, By Mouth, Once, Routine, 10/19/20 22:00:00 EDT, Stop date 10/19/20 22:00:00 EDT Start Date: 10/19/20 Stop Date: 10/19/20 Status: Completedmethadone 40 mg oral tablet, dispersible = 90 mg, By Mouth, Daily, 0 Refills, Maintenance, 04/24/20 11:46:00 EST, Partial fill upon patient request Start Date: 04/24/20 Status: Orderedmultivitamin Multiple Vitamins oral capsule 1 capsule, By Mouth, Daily, # 30 capsule, 0 Refills, Maintenance, 11/12/19 11:53:00 EDT, Capsule, [facility], 1 capsule By Mouth Daily,x30 days, 184, cm, 11/11/19 20:33:00 EDT, Height, 100, kg, 11/07/19 9:02:00 EDT, Dry Weight Start Date: 11/12/19 Stop Date: 12/12/19 Status: OrderedQUEtiapine 100 mg oral tablet 100 mg, 1, tablet, By Mouth, 2 times a day, # 60 tablet, Refills 0, Tot. Refills 0, Maintenance, 02/14/20 11:33:00 EDT, Route to Pharmacy Electronically, [facility], 186, cm, 02/14/20 11:26:00 [...] for Microbiology Reports Name Date Blood Culture 10/19/20 Microbiology Reports TEST:Blood Culture STATUS:Unauthenticated BODY SITE: SOURCE:Blood COLLECTED DATE/TIME:10/19/20 1:57 PMBlood Culture SPECIMEN DESCRIPTION : BLOOD NO SITE SPECIAL REQUESTS : NONE REPORT STATUS : PRELIMINARY REPORT Radiology Reports Exam Date Time Procedure Performing Provider Status 10/19/20 2:47 PM Foot Min 3 Views Right Fitting , Nhan; Auth (Ve rified) Notes:(Foot Min 3 Views Right) Reason For Exam: PainRESULT: Foot Min 3 Views Right Foot Min 3 Views Right, 3 views Hx of Present Illness: pt c/o R foot and L lower leg foot infections. Reports known osteomyelitis. Recently received care at [facility] and rehab.; Reason: Pain; Clinical Question(s): Osteomyelitis COMPARISON: 10/15/2020. FINDINGS: Transmetatarsal amputations throughout the foot are again noted. No evidence of cortical destructionat the tips to suggest osteomyelitis. Probable ulceration again noted. Circumferential superficial soft tissue is again noted. IMPRESSION: Postsurgical changes, no convincing evidence of osteomyelitis. WSN: [id number] Ordering Physician: Tanner Pastor Dictated By: Tanvir Coleman MD Dictated Date/Time: 10/19/20 3:22 pm Reviewed By: Tanvir Coleman MD Signed By: Tanvir Coleman MD Signed Date/Time: 10/19/20 3:22 pm Transcribed By: HAKEEM Transcribed Date/Time: 10/19/20 3:20 pm Exam Date Time Procedure Performing Provider Status 10/19/20 2:47 PM Foot Min 3 Views Left Fitting , Nhan; Auth (Arthur ified) Notes:(Foot Min 3 Views Left) Reason For Exam: PainRESULT: Foot Min 3 Views Left Foot Min 3 Views Left, 3 views Hx of Present Illness: pt c o R foot and L lower leg foot infections. Reports known osteomyelitis. Recently received care at [facility] and rehab.; Reason: Pain; Clinical Question(s): Osteomyelitis COMPARISON: 10/15/2020. FINDINGS: Chronic deformity of the fourth and fifth metatarsals is again identified. There is a large ulcer at the base of the fifth metatarsal which is increased in size in the interval subtle periosteal reaction suggested on today's examination best seen on the oblique and lateral view. Instrumented Fusion between the mid and forefoot is again noted. There is also prior osteotomy of the first metatarsal. IMPRESSION: Findings concerning for worsening ulceration and developing osteomyelitis along the base of the fifth metatarsal. WSN: [id number] Ordering Physician: Tanner Pastor Dictated By: Tanvir Coleman MD Dictated Date/Time: 10/19/20 3:16 pm Reviewed By: Tanvir Coleman MD Signed By: Tanvir Coleman MD Signed Date/Time: 10/19/20 3:16 pm Transcribed By: HAKEEM Transcribed Date/Time: 10/19/20 3:09 pm Vital Signs Most recent to oldest 1 2 3 [Reference Range]: Oxygen Saturation [94-100 %] 100 % 95 % 96 % (10/19/20 8:16 PM) (10/19/20 6:17 PM) (10/19/20 1:4 0 PM) Pulse Rate [55-90 bpm] 80 bpm 78 bpm 75 bpm (10/19/20 8:16 PM) (10/19/20 6:17 PM) (10/19/20 1:4 0 PM) Blood Pressure [90-138/55-84 mm 131/63 mm Hg 118/79 mm Hg 126/67 mm Hg Hg] (10/19/20 8:00 PM) (10/19/20 6:17 PM) (10/19/20 1:4 0 PM) Respiratory Rate [16-30 br/min] 19 br/min 19 br/min 14 br/min (10/19/20 9:31 PM) (10/19/20 9:28 PM) *L* (10/19/20 8:16 PM ) Temperature [96.8-100.4 DegF] 98.2 DegF 98.6 DegF 98 .5 DegF (10/19/20 8:16 PM) (10/19/20 6:17 PM) (10/19/20 1:4 0 PM) Mode of Delivery (Oxygen) Room air Room air Room a ir (10/19/20 8:16 PM) (10/19/20 6:17 PM) (10/19/20 1:4 0 PM) Blood pressure sites Arm, right Arm, right Arm, left (10/19/20 8:16 PM) (10/19/20 6:17 PM) (10/19/20 1:4 0 PM) Temperature Route Oral Oral Oral (10/19/20 8:16 PM) (10/19/20 6:17 PM) (10/19/20 1:4 0 PM) Social History Social History Type Response Smoking Status Never (less than 100 in life time) entered on: 05/02/20 Sex Male
--- OUTSIDE RECORDS SUMMARY | 2022-05-25 02:42 | XMS_ITS | Continuity of Care Document ---
:1970 Author Organization [facility] Address [address] [place] [id number]- Care Team Providers Name Role Phone Not on Staff, PCP Primary Care Physician Unavailable Encounter [facility] Date(s): 09/19/21 - 09/19/[address] [address]- Encounter Diagnosis Foot pain (Final) - 09/19/21 Long COVID (Final) - 09/19/21 Dyspnea on effort (Final) - 09/19/21 Discharge Disposition: A-D/C Home Attending Physician: Preeti Murcia MD Admitting Physician: Preeti Murcia MD Referring Physician: Not on Staff, Referring MD Allergies, Adverse Reactions, Alerts Substance Reaction Severity Status penicillin1, 2, 3, 4 rash Unknown Active aspirin rash Unknown Active ketorolac hives Unknown Active Naprosyn rash Unknown Active Compazine rash Unknown Active 1Tolerated extended course of pip/tazo during November 2020 [id number] tolerated ampicillin/sulbactam during 01/2020 [id number] has tolerated piperacillin/tazobactam (08/09/15), cephalexin (01/19/16) and cefazolin (many occa sions).4patient tolerates meropenem Immunizations Given and Recorded Vaccine Date Status Refusal Reason SARS-CoV-2 (COVID-19) mRNA-1273 vaccine 05/21/21 Recorded SARS-CoV-2 (COVID-19) mRNA-1273 vaccine 05/10/21 Recorded SARS-CoV-2 (COVID-19) mRNA-1273 vaccine 03/02/21 Recorded SARS-CoV-2 (COVID-19) mRNA BNT-162b2 vac 10/08/20 Recorde [...] By Mouth, 2 times a day, PRN as needed for anxiety, # 14 tablet, 0 Refills, Maintenance, 09/19/21 15:48:00 EDT, Tablet, [facility], Partial fill upon patient request if the prescription is for a schedule II opioid drug.,... Start Date: 09/19/21 Status: Orderedatorvastatin 40 mg oral tablet 1 tablet = 40 mg, By Mouth, Daily, # 30 tablet, 0 Refills, Maintenance, 09/19/21 15:47:00 EDT, Tablet, [facility], Partial fill upon patient request if the prescription is for a schedule II opioid drug., 186, cm, 09/15/21 12:46:00 EDT, H... Start Date: 09/19/21 Status: OrderedcloNIDine 0.1 mg oral tablet 0.2 mg, 2, tablet, By Mouth, 3 times a day, # 42 tablet, Refills 0, Tot. Refills 0, Maintenance, 09/19/21 15:47:00 EDT, Route to Pharmacy Electronically, [facility], Partial fill upon patient request if the prescription is for a schedule... Start Date: 09/19/21 Stop Date: 09/26/21 Status: Orderedgabapentin 300 mg oral capsule 600 mg, 2, capsule, By Mouth, 3 times a day, # 42 capsule, Refills 0, Tot. Refills 0, Maintenance, 09/22/21 14:07:00 EDT, Route to Pharmacy Electronically, [facility], Partial fill upon patient request if the prescription is for a schedu... Start Date: 09/22/21 Stop Date: 09/29/21 Status: Orderedgabapentin 300 mg oral capsule 600 mg, 2, capsule, By Mouth, 3 times a day, for 7 days, # 42 capsule, Refills 0, Tot. Refills 0, Hard Stop 09/22/21 14:07:00 EDT, 09/15/21 14:07:00 EDT, Route to Pharmacy Electronically, [facility] - [place], [place], Partial fill upo... Start Date: 09/15/21 Stop Date: 09/22/21 Status: OrderedInsulin Lispro 10-18 units, Subcutaneous Injection, Every 6 hours, << Sliding Scale Comments >> 150 - 199 10 units Call if less than 100 200 - 249 12 units 250 - 299 14 units 300 - 349 16 units 350 - 399 18 units Call if greater than 400 << Slidin... Start Date: 01/05/21 Status: OrderedLantus Inj = 40 units, Subcutaneous Injection, Daily at bedtime, 0 Refills, Maintenance, 01/05/21 13:27:00 EDT,Injection, Partial fill upon patient request if the prescription is for a schedule II opioid drug. Start Date: 01/05/21 Status: OrderedLasix 40 mg oral tablet 40 mg, 1, tablet, By Mouth, 2 times a day, # 60 tablet, Refills 0, Tot. Refills 0, Maintenance, 09/19/21 15:47:00 EDT, Route to Pharmacy Electronically, [facility], Partial fill upon patient request if the prescription is for a schedule... Start Date: 09/19/21 Status: Orderedlisinopril 10 mg oral tablet 10 mg, 1, tablet, By Mouth, Daily, # 30 tablet, Refills 0, Maintenance, 09/19/21 10:48:00 EDT, Partial fill upon patient request if the prescription is for a schedule II opioid drug. Start Date: 09/19/21 Status: OrderedMethadone = 60 mg, By Mouth, Daily, 0 Refills, Maintenance, 09/15/21 8:34:00 EDT, Partial fill upon patient request if the prescription is for a schedule II opioid drug. Start Date: 09/15/21 Status: OrderedQUEtiapine 100 mg oral tablet 100 mg, 1, tablet, By Mouth, 2 times a day, # 60 tablet, Refills 0, Tot. Refills 0, Maintenance, 09/19/21 15:48:00 EDT, Route to Pharmacy Electronically, [facility], 186, cm, 09/15/21 12:46:00 EDT, Height, 126, kg, 09/15/21 12:46:00 EDT,... Start Date: 09/19/21 Stop Date: 10/19/21 Status: Ordered Problem List Condition Effective Dates [...] Exam Date Time Procedure Performing Provider Status 09/19/21 1:44 PM Foot Min 3 Views Left Luan Lewis; Auth (V erified) Notes:(Foot Min 3 Views Left) Reason For Exam: \;PainRESULT: Foot Min 3 Views Left Left foot 3 views dated July 22, 2021. Comparison films are from December 03, 2020. HISTORY: Pain. FINDINGS: There are postoperative changes consistent with partial resections of the fourth and fifthmetatarsals. The interstitial margins are smooth. No acute fracture or dislocation is identified. There is an anchoring staple in the first metatarsal. There are screws traversing the calcaneus and thetalus and navicular. These are stable. Mild arthritic changes are present in the midfoot. There is a very thin metallic foreign body demonstrated in the soft tissues of the proximal phalanx of the great toe laterally. IMPRESSION: No evidence of acute osseous abnormality. Postoperative changes. No plain from evidence of osteomyelitis. Small metallic foreign body in the soft tissues of the proximal phalanx of the great toe. This is unchanged. Examination 296[address]. Thank you for allowing me to participate in the care of this patient. WSN: [id number] Ordering Physician: Demetrio Olivera Dictated By: Nehemias Chew MD Dictated Date/Time: 09/19/21 2:33 pm Reviewed By: Nehemias Chew MD Signed By: Nehemias Chew MD Signed Date/Time: 09/19/21 2:33 pm Transcribed By: HAKEEM Transcribed Date/Time: 09/19/21 2:29 pm Vital Signs Most recent to oldest 1 2 3 [Reference Range]: Oxygen Saturation [94-100 %] 96 % 100 % 98 % (09/19/21 5:00 PM) (09/19/21 4:00 PM) (09/19/21 2:4 1 PM) Pulse Rate [55-90 bpm] 75 bpm 88 bpm 87 bpm (09/19/21 5:00 PM) (09/19/21 4:00 PM) (09/19/21 2:4 1 PM) Blood Pressure [90-138/55-84 121/72 mm Hg 102/66 mm Hg 106 /58 mm Hg mm Hg] (09/19/21 5:00 PM) (09/19/21 4:00 PM) (09/19/21 2:4 1 PM) Respiratory Rate [16-30 16 br/min 16 br/min 16 br/mi n br/min] (09/19/21 5:00 PM) (09/19/21 4:00 PM) (09/19/21 2:4 1 PM) Temperature [96.8-100.4 DegF] 98.1 DegF (09/19/21 10:30 AM) Liters per Minute 2 L/min 2 L/min 2 L/min (09/19/21 5:00 PM) (09/19/21 4:00 PM) (09/19/21 2:4 1 PM) Mode of Delivery (Oxygen) Nasal cannula Nasal cannula Nasal cannula (09/19/21 5:00 PM) (09/19/21 4:00 PM) (09/19/21 2:4 1 PM) Blood pressure sites Arm, left Arm, left Arm, left (09/19/21 5:00 PM) (09/19/21 4:00 PM) (09/19/21 2:4 1 PM) Temperature Route Oral (09/19/21 10:30 AM) Social History Social History Type Response Smoking Status Never (less than 100 in life time) entered on: 05/02/20 Sex Male
--- OUTSIDE RECORDS SUMMARY | 2022-05-25 02:42 | XMS_ITS | Continuity of Care Document ---
:1970 Author Organization [facility] Address Unavailable , Care Team Providers Name Role Phone Not on Staff, PCP Primary Care Physician Unavailable Encounter [facility] Date(s): 04/15/21 - 05/15/21 [facility] Allergies, Adverse Reactions, Alerts Substance Reaction Severity Status penicillin1, 2, 3, 4 rash Unknown Active aspirin rash Unknown Active ketorolac hives Unknown Active Naprosyn rash Unknown Active Compazine rash Unknown Active 1Tolerated extended course of pip/tazo during November 2020 [id number] tolerated ampicillin/sulbactam during 01/2020 [id number] has tolerated piperacillin/tazobactam (08/09/15), cephalexin (01/19/16) and [...] 0 Refills, Maintenance, 03/18/20 11:06:00 EDT, Tablet, [facility], 183, cm, 03/18/20 7:55:00 [...] 02/14/20 11:33:00 EDT, Route to Pharmacy Electronically, [facility], 186, cm, 02/14/20 11:26:00 [...]
--- OUTSIDE RECORDS SUMMARY | 2022-05-25 02:42 | XMS_ITS | Continuity of Care Document ---
:1970 Author Organization [facility] Address [address] [place] [address]- Care Team Providers Name Role Phone Not on Staff, PCP Primary Care Physician Unavailable Encounter [facility] Date(s): 11/12/20 - 01/14/21 [facility] [address] [place] [id number] Attending Physician: Wodorow Fowler MD Admitting Physician: Woodrow Fowler MD Referring Physician: Not on Staff, Referring MD Allergies, Adverse Reactions, Alerts Substance Reaction Severity Status penicillin1, 2, 3, 4 rash Unknown Active aspirin rash Unknown Active ketorolac hives Unknown Active Naprosyn rash Unknown Active Compazine rash Unknown Active 1Tolerated extended course of pip/tazo during November 2020 [id number] tolerated ampicillin/sulbactam during 01/2020 [id number] has tolerated piperacillin/tazobactam (08/09/15), cephalexin (01/19/16) and [...] 0 Refills, Maintenance, 03/18/20 11:06:00 EDT, Tablet, [facility], 183, cm, 03/18/20 7:55:00 [...] 02/14/20 11:33:00 EDT, Route to Pharmacy Electronically, [facility], 186, cm, 02/14/20 11:26:00 EDT, Height, [...]
--- OUTSIDE RECORDS SUMMARY | 2022-05-25 02:42 | XMS_ITS | Continuity of Care Document ---
:1970 Author Organization [facility] Address [address] [place] [address]- Care Team Providers Name Role Phone Afshan Chaves MD Primary Care Physician Encounter [facility] Date(s): 12/03/21 - 03/02/22 [facility] [address] [place] [id number] Attending Physician: Lenny Vaughn MD Admitting Physician: Lenny Vaughn MD Referring Physician: Afshan Chaves MD Allergies, Adverse Reactions, Alerts Substance Reaction Severity Status ketorolac hives Unknown Active Naprosyn rash Unknown Active penicillin1, 2, 3, 4 rash Unknown Active aspirin rash Unknown Active Compazine rash Unknown Active 1Tolerated extended course of pip/tazo during November 2020 [id number] tolerated ampicillin/sulbactam during 01/2020 [id number] has tolerated piperacillin/tazobactam (08/09/15), cephalexin (01/19/16) and [...] 0 Refills, Maintenance, 01/17/22 9:39:00 EDT, Tablet, [facility], Partial fill upon patient request if the prescription is for a schedule II opioid drug., 182.88, cm, 01/16/22 23:00:00 EDT,... Start Date: 01/17/22 Stop Date: 02/16/22 Status: OrderedcloNIDine 0.2 mg oral tablet 0.2 mg, 1, tablet, By Mouth, 3 times a day, # 90 tablet, Refills 0, Tot. Refills 0, Maintenance, 01/17/22 9:39:00 EDT, Route to Pharmacy Electronically, [facility], Partial fill upon patient request if the prescription is for a schedule... Start Date: 01/17/22 Stop Date: 02/16/22 Status: Orderedgabapentin 300 mg oral capsule 600 mg, 2, capsule, By Mouth, 3 times a day, # 180 capsule, Refills 0, Tot. Refills 0, Maintenance, 01/17/22 9:39:00 EDT, Route to Pharmacy Electronically, [facility], Partial fill upon patient request if the prescription is for a schedu... Start Date: 01/17/22 Stop Date: 02/16/22 Status: Orderedinsulin glargine 100 units/mL subcutaneous solution = 80 units, Subcutaneous Injection, Daily at bedtime, # 10 mL, 0 Refills, Maintenance, 01/17/22 9:40:00 EDT, Injection, [facility], Partial fill upon patient [...] 01/17/22 9:39:00 EDT, Route to Pharmacy Electronically, [facility], Partial fill upon patient [...] 01/17/22 9:42:00 EDT, Route to Pharmacy Electronically, [facility], Partial fill upon patient [...] PersonnelName: Anastacio SHAFER, Afshan Castellanos Address: Address: [address] [place] [address], [address] [place], [place] [address]
--- OUTSIDE RECORDS SUMMARY | 2022-05-25 02:42 | XMS_ITS | Continuity of Care Document ---
:1970 Author Organization [facility] Address [address] [place] [address]- Care Team Providers Name Role Phone Afshan Chaves MD Primary Care Physician Encounter [facility] Date(s): 10/08/21 - 11/07/21 [facility] [address] [place], [place] [address] Attending Physician: Parker Negrete Admitting Physician: AdmtrParker Referring Physician: Admtr, Ar8 Allergies, Adverse Reactions, Alerts Substance Reaction Severity Status penicillin1, 2, 3, 4 rash Unknown Active aspirin rash Unknown Active ketorolac hives Unknown Active Naprosyn rash Unknown Active Compazine rash Unknown Active 1Tolerated extended course of pip/tazo during November 2020 [id number] tolerated ampicillin/sulbactam during 01/2020 [id number] has tolerated piperacillin/tazobactam (08/09/15), cephalexin (01/19/16) and [...] want, does not do flu shot Medications aspirin 81 mg oral delayed release tablet 81 mg, 1, tablet, By Mouth, Daily, # 90 tablet, Refills 0, Tot. Refills 0, Maintenance, 10/25/21 10:54:00 EDT, Route to Pharmacy Electronically, [facility] - [place], [place], Partial fill upon patient request if the prescription is fo... Start Date: 10/25/21 Status: Orderedatorvastatin 40 mg oral tablet 1 tablet = 40 mg, By Mouth, Daily, # 30 tablet, 0 Refills, Maintenance, 09/30/21 16:14:00 EDT, Tablet, [facility], Partial fill upon patient request if the prescription is for a schedule II opioid drug., 185, cm, 09/30/21 4:27:00 EDT, He... Start Date: 09/30/21 Status: OrderedcloNIDine 0.1 mg oral tablet 0.2 mg, 2, tablet, By Mouth, 3 times a day, # 42 tablet, Refills 0, Tot. Refills 0, Maintenance, 09/30/21 16:14:00 EDT, Route to Pharmacy Electronically, [facility], Partial fill upon patient request if the prescription is for a schedule... Start Date: 09/30/21 Stop Date: 10/07/21 Status: Orderedgabapentin 300 mg oral capsule 600 mg, 2, capsule, By Mouth, 3 times a day, # 42 capsule, Refills 0, Tot. Refills 0, Maintenance, 09/30/21 16:14:00 EDT, Route to Pharmacy Electronically, [facility], Partial fill upon patient request if the prescription is for a schedu... Start Date: 09/30/21 Stop Date: 10/07/21 Status: Orderedinsulin glargine 100 units/mL subcutaneous solution 0.74 mL = 74 units, Subcutaneous Injection, Daily at bedtime, # 20.4 mL, 0 Refills, Maintenance, 09/30/21 16:15:00 EDT, Injection, [facility], Partial fill upon patient request if the prescription is for a schedule II opioid drug., 185,... Start Date: 09/30/21 Status: Orderedinsulin lispro 100 units/mL injectable solution 24-44 units, Subcutaneous Injection, Daily before lunch, << Sliding Scale Comments >> 100 - 149 24 units Call if less than 70 150 - 199 28 units 200 - 249 32 units 250 - 299 36 units 300 - 349 40 units 350 - 399 44 units Call if... Start Date: 09/30/21 Status: Orderedinsulin lispro 100 units/mL injectable solution = 8 units, Subcutaneous Injection, Daily at bedtime, PRN Other, # 3 mL, 0 Refills, Maintenance, 09/30/21 16:15:00 EDT, Injection, [facility], Partial fill upon patient request if the prescription is for a schedule II opioid drug., 185, c... Start Date: 09/30/21 Status: Orderedinsulin lispro 100 units/mL injectable solution 18-38 units, Subcutaneous Injection, Daily before dinner, << Sliding Scale Comments >> 100 - 149 18 units Call if less than 70 150 - 199 22 units 200 - 249 26 units 250 - 299 30 units 300 -349 34 units 350 - 399 38 units Call if... Start Date: 09/30/21 Status: Orderedinsulin lispro 100 units/mL injectable solution 24-44 units, Subcutaneous Injection, Daily before breakfast, << Sliding Scale Comments >> 100 - 149 24 units Call if less than 70 150 - 199 28 units 200 - 249 32 units 250 - 299 36 units 300 - 349 40 units 350 - 399 44 units Call... Start Date: 09/30/21 Status: OrderedLasix 40 mg oral tablet 40 mg, 1, tablet, By Mouth, 2 times a day, # 60 tablet, Refills 0, Tot. Refills 0, Maintenance, 09/30/21 16:14:00 EDT, Route to Pharmacy Electronically, [facility], Partial fill upon patient request if the prescription is for a schedule... Start Date: 09/30/21 Status: Orderedmethadone 10 mg oral tablet See Instructions, 60 By Mouth Daily, 0 Refills, Maintenance, 09/30/21 8:46:00 EDT, Tablet, Partial fill upon patient request if the prescription is for a schedule II opioid drug. Start Date: 09/30/21 Status: OrderedQUEtiapine 100 mg oral tablet 100 mg, 1, tablet, By Mouth, 2 times a day, # 60 tablet, Refills 0, Tot. Refills 0, Maintenance, 09/19/21 15:48:00 EDT, Route to Pharmacy Electronically, [facility], 186, cm, 09/15/21 12:46:00 [...] of 09/30/09 Active lower extremity(Confirmed) Obese class I(Confirmed) Active Chronic osteomyelitis of toe of left [...]
--- OUTSIDE RECORDS SUMMARY | 2022-05-25 02:42 | XMS_ITS | Continuity of Care Document ---
:1970 [address] [facility] Address [address] [place] [address]- Care Team Providers Name Role Phone Not on Staff, PCP Primary Care Physician Unavailable [place] [facility] 03/04/[address] [address]- [facility] Discharge Disposition: A-D/C Home Attending Physician: Sussy Keita MD Admitting Physician: Rita Chavez MD Referring Physician: Not on Staff, Referring [...] want, does not do flu shot Medications acetaminophen 325 mg oral tablet 650 mg, 2, tablet, By Mouth, 3 times a day, Refills 0, Maintenance, 02/27/20 14:21:00 EDT Start Date: 02/27/20 Status: Orderedatorvastatin 10 mg oral tablet 1 tablet = 10 mg, By Mouth, Daily, # 30 tablet, 0 Refills, Maintenance, 02/14/20 11:32:00 EDT, Tablet, [facility], 186, cm, 02/14/20 11:26:00 EDT, Height, 100.5, kg, 02/10/20 6:42:00 EDT,Dry Weight Start Date: 02/14/20 Stop Date: 03/15/20 Status: OrderedcloNIDine 0.1 mg oral tablet 0.1 mg, 1, tablet, By Mouth, 3 times a day, Refills 0, Maintenance, 02/27/20 14:20:00 EDT Start Date: 02/27/20 Status: Orderedgabapentin 400 mg oral capsule 400 mg, 1, capsule, By Mouth, 3 times a day, Refills 0, Maintenance, 02/27/20 14:20:00 EDT Start Date: 02/27/20 Status: Orderedinsulin glargine 100 units/mL subcutaneous solution = 50 units, Subcutaneous Injection, Daily at bedtime, # 15 mL, 0 Refills, Maintenance, 02/07/20 9:57:00 EDT Start Date: 02/07/20 Stop Date: 03/08/20 Status: Orderedinsulin lispro 100 u/ml subcutaneous injection See Instructions, 2-10 units Subcutaneous Injection 3 times a day before meals, # 15 mL, 0 Refills, Maintenance, 02/07/20 15:04:00 EDT, Injection, [facility], 150 - 199 2 units; 200 - 2494 units ; 250 - 299 6 units ; 300 - 349 8... Start Date: 02/07/20 Status: Orderedlisinopril 20 mg oral tablet 10 mg, 0.5, tablet, By Mouth, Daily, Refills 0, Maintenance, 02/27/20 14:21:00 EDT Start Date: 02/27/20 Status: Orderedmethadone 10 mg oral tablet = 90 mg, By Mouth, Daily, 0 Refills, Maintenance, 11/21/19 13:37:00 EDT, Tablet, Partial fill upon patient request Start Date: 11/21/19 Status: Orderedmultivitamin Multiple Vitamins oral capsule 1 capsule, By Mouth, Daily, # 30 capsule, 0 Refills, Maintenance, 11/12/19 11:53:00 EDT, Capsule, [facility], 1 capsule By Mouth Daily,x30 days, 184, cm, 11/11/19 20:33:00 EDT, Height, 100, kg, 11/07/19 9:02:00 EDT, Dry Weight Start Date: 11/12/19 Stop Date: 12/12/19 Status: OrderedPen [place], 31 G x 8 mm BD Ultra [...] 02/14/20 11:33:00 EDT, Route to Pharmacy Electronically, [facility], 186, cm, 02/14/20 11:26:00 EDT, Height, 100.5, kg, 02/10/20 6:42:00 EDT... Start Date: 02/14/20 Stop Date: 03/15/20 Status: OrderedXanax 2 mg oral tablet 1 tablet = 2 mg, By Mouth, 3 times a day, PRN for anxiety, 0 Refills, Maintenance, 02/18/20 12:02:00EDT, Tablet Start Date: 02/18/20 Status: Ordered Problem List Condition Effective Dates [...] for Microbiology Reports Name Date Blood Culture 03/03/20 Blood Culture #2 03/03/20 Microbiology Reports TEST:Blood Culture STATUS:Unauthenticated BODY SITE: SOURCE:Blood COLLECTED DATE/TIME:03/03/20 11:31 AMBlood Culture SPECIMEN DESCRIPTION : BLOOD NO SITE Aerobic bottle only CULTURE : NO GROWTH AFTER 24 HOURS REPORT STATUS : PRELIMINARY REPORT TEST:Blood Culture, Second Order STATUS:Unauthenticated BODY SITE: SOURCE:Blood COLLECTED DATE/TIME:03/03/20 11:31 AMBlood Culture, Second Order SPECIMEN DESCRIPTION : BLOOD NO SITE SPECIAL REQUESTS : NONE CULTURE : NO GROWTH AFTER 24 HOURS REPORT STATUS : PRELIMINARY REPORT Radiology Reports Exam Date Time Procedure Performing Provider Status 03/02/20 9:44 AM Foot Min 3 Views Left Lin Proctor; Auth (Ve rified) Notes:(Foot Min 3 Views Left) Reason For Exam: PainRESULT: Foot Min 3 Views Left Left foot , 3 views Hx of Present Illness: pt reports was seen here 1 week ago diagnosed w blood clot in RLE at that time, started on Eliquis, sts has been med compliant. Sts 3- 4 days ago began having pain to broussard calf and shooting up leg (pain during last wks visit was in ankle foot).; Reason: Pain; Clinical Question(s): Osteomyelitis COMPARISON: Multiple studies between 12/07/2017 and 02/23/2020 FINDINGS: Stable hardware and hindfoot arthrodesis. Chronic osteomyelitis of the distal aspect of the 4th and 5th metatarsals is unchanged. No evidence of acute or healing fracture, periosteal reaction or cortical defect to suggest acute osteomyelitis. Large deep soft tissue ulcer adjacent to the base of the 5th metatarsal. No other evidence of soft tissue emphysema or foreign body. IMPRESSION: Deep soft tissue ulcer but no evidence of osteomyelitis. WSN: [id number] Ordering Physician: James Haddad Dictated By: Jakub Freed MD Dictated Date/Time: 03/02/20 9:51 am Reviewed By: Jakub Freed MD Signed By: Jakub Freed MD Signed Date/Time: 03/02/20 9:51 am Transcribed By: HAKEEM Transcribed Date/Time: 03/02/20 9:46 am Exam Date Time Procedure Performing Provider Status 03/02/20 5:50 AM Tibia/Fibula 2 Views Right Jayme Alanis; Marielos th (Verified) Notes:(Tibia/Fibula 2 Views Right) Reason For Exam: with Pain;TraumaRESULT: Tibia/Fibula 2 Views Right History: Refer to EMR; Hx of Present Illness: pt reports was seen here 1 week ago diagnosed w blood clot in RLE at that time, started on Eliquis, sts has been med compliant. Sts 3-4 days ago began having pain to broussard calf and shooting up leg (pain during last wks visit was in ankle foot).; Reason: Trauma; Findings: Frontal and lateral views of the right tibia and fibula are submitted. The distal tibia and fibula are excluded from the radiograph and are included on a separately reported ankle radiograph. No fractures, dislocations, or erosions are seen. The soft tissues are unremarkable. IMPRESSION: There is no acute osseous abnormality. WSN: [id number] Ordering Physician: Chuck Stoll Dictated By: Shila Marquez MD Dictated Date/Time: 03/02/20 8:09 am Reviewed By: Shila Marquez MD Signed By: Shila Marquez MD Signed Date/Time: 03/02/20 8:09 am Transcribed By: HAKEEM Transcribed Date/Time: 03/02/20 8:08 am Exam Date Time Procedure Performing Provider Status 03/02/20 5:50 AM Ankle Min 3 Views Right Jayme Alanis; Sarahi (Verified) Notes:(Ankle Min 3 Views Right) Reason For Exam: with Pain;TraumaRESULT: Ankle Min 3 Views Right Ankle Min 3 Views Right Refer to EMR; Hx of Present Illness: pt reports was seen here 1 week ago diagnosed w blood clot in RLE at that time, started on Eliquis, sts has been med compliant. Sts 3-4 days ago began having pain to broussard calf and shooting up leg (pain during last wks visit was in ankle foot).; Reason: Trauma; withPain; Clinical Question(s): Fracture; Special Instructions: This is a protocol film and radiolo. COMPARISON: None. FINDINGS: No evidence of acute or healing fracture or bone lesion. Intact ankle mortise and talar dome. Mild degenerative changes at the ankle with small marginal osteophytes. Soft tissue swelling about the ankle. IMPRESSION: Soft tissue swelling about the ankle with mild degenerative changes. No fracture. WSN: [id number] Ordering Physician: Chuck Stoll Dictated By: Marti Calderon MD Dictated Date/Time: 03/02/20 7:52 am Reviewed By: Marti Calderon MD Signed By: Marti Calderon MD Signed Date/Time: 03/02/20 7:52 am Transcribed By: HAKEEM Transcribed Date/Time: 03/02/20 7:51 am Vital Signs Most recent to oldest 1 2 3 4 [Reference Range]: Height 185 cm 185 cm 185 cm (03/04/20 3:36 PM) (03/04/20 8:38 AM) (03/03/20 11:24 AM) Weight 101 kg (03/03/20 11:24 AM) Oxygen Saturation 99 % 99 % 95 % [94-100 %] (03/04/20 3:36 PM) (03/04/20 8:38 AM) (03/03/20 7:00 PM) Pulse Rate [55-90 bpm] 70 bpm 67 bpm 66 bpm (03/04/20 3:36 PM) (03/04/20 8:38 AM) (03/03/20 7:00 PM) Body Mass Index 29.51 [18.5-24.99] *H* (03/03/20 11:24 AM) Blood Pressure 123/69 mm Hg 113/71 mm Hg 113/71 mm Hg [90-138/55-84 mm Hg] (03/04/20 3:36 PM) (03/04/20 8:53 AM) (03/04/20 8 :38 AM) Respiratory Rate [16-30 16 br/min 20 br/min 18 br/min 18 b r/min br/min] (03/04/20 4:04 PM) (03/04/20 3:36 PM) (03/04/20 9:53 AM) (03/04/20 9:53 AM) Temperature [96.8-100.4 98.4 DegF 98.3 DegF 98.1 DegF DegF] (03/04/20 3:36 PM) (03/04/20 8:38 AM) (03/03/20 7:00 PM) Mode of Delivery Room air Room air Room air (Oxygen) (03/04/20 3:36 PM) (03/04/20 8:38 AM) (03/03/20 7:00 PM) Blood pressure sites Arm, right Arm, left Arm, right (03/04/20 3:36 PM) (03/04/20 8:38 AM) (03/03/20 7:00 PM) Temperature Route Oral Oral Oral (03/04/20 3:36 PM) (03/04/20 8:38 AM) (03/03/20 7:00 PM) Dry Weight 101 kg (03/03/20 11:24 AM) Weight Obtained Via Patient/family stated (03/03/20 11:24 AM) Dry Weight Obtained Via Patient/family stated (03/03/20 11:24 AM) Social History Social History Type Response Smoking Status Never smoker; Tobacco user i n household: No entered on: 11/28/17 Sex Male
--- OUTSIDE RECORDS SUMMARY | 2022-05-25 02:42 | XMS_ITS | Continuity of Care Document ---
:1970 Author Organization [facility] Address [address] [place] [address]- Care Team Providers Name Role Phone Anastacio SHAFER, Afshan Castellanos Primary Care Physician Encounter [facility] Date(s): 09/24/21 - 11/07/21 [facility] [address] [place] [address]- Attending Physician: Jj Hathaway Allergies, Adverse Reactions, Alerts Substance Reaction Severity Status penicillin1, 2, 3, 4 rash Unknown Active aspirin rash Unknown Active ketorolac hives Unknown Active Naprosyn rash Unknown Active Compazine rash Unknown Active 1Tolerated extended course of pip/tazo during November 2020 [id number] tolerated ampicillin/sulbactam during 01/2020 [id number] has tolerated piperacillin/tazobactam (08/09/15), cephalexin (01/19/16) and [...] 10/25/21 10:54:00 EDT, Route to Pharmacy Electronically, [facility] - [place], [place], Partial fill upon patient request if the prescription is fo... Start Date: 10/25/21 Status: Orderedatorvastatin 40 mg oral tablet 1 tablet = 40 mg, By Mouth, Daily, # 30 tablet, 0 Refills, Maintenance, 09/30/21 16:14:00 EDT, Tablet, [facility], Partial fill upon patient request if the prescription is for a schedule II opioid drug., 185, cm, 09/30/21 4:27:00 EDT, He... Start Date: 09/30/21 Status: OrderedcloNIDine 0.1 mg oral tablet 0.2 mg, 2, tablet, By Mouth, 3 times a day, # 42 tablet, Refills 0, Tot. Refills 0, Maintenance, 09/30/21 16:14:00 EDT, Route to Pharmacy Electronically, [facility], Partial fill upon patient request if the prescription is for a schedule... Start Date: 09/30/21 Stop Date: 10/07/21 Status: Orderedgabapentin 300 mg oral capsule 600 mg, 2, capsule, By Mouth, 3 times a day, # 42 capsule, Refills 0, Tot. Refills 0, Maintenance, 09/30/21 16:14:00 EDT, Route to Pharmacy Electronically, [facility], Partial fill upon patient request if the prescription is for a schedu... Start Date: 09/30/21 Stop Date: 10/07/21 Status: Orderedinsulin glargine 100 units/mL subcutaneous solution 0.74 mL = 74 units, Subcutaneous Injection, Daily at bedtime, # 20.4 mL, 0 Refills, Maintenance, 09/30/21 16:15:00 EDT, Injection, [facility], Partial fill upon patient request if [...] 0 Refills, Maintenance, 09/30/21 16:15:00 EDT, Injection, [facility], Partial fill upon patient request if [...] 09/30/21 16:14:00 EDT, Route to Pharmacy Electronically, [facility], Partial fill upon patient request [...] 09/19/21 15:48:00 EDT, Route to Pharmacy Electronically, [facility], 186, cm, 09/15/21 12:46:00 EDT, [...]
--- OUTSIDE RECORDS SUMMARY | 2022-05-25 02:42 | XMS_ITS | Continuity of Care Document ---
:1970 Author Organization [facility] Address [address] [place] [address]- Care Team Providers Name Role Phone Quincy SHAFER, Lis Castellanos Primary Care Physician Encounter [facility] Date(s): 01/30/20 - 02/07/[address] [address]- [facility] Encounter Diagnosis Diabetic foot ulcer (Discharge Diagnosis) - 02/02/20 Discharge Disposition: A-D/C Home Attending Physician: Bela Melendez MD Admitting Physician: Kaycee Hardin MD Referring Physician: Not on Staff, Referring MD Allergies, Adverse Reactions, Alerts Substance Reaction Severity Status penicillin1, 2, 3 rash Unknown Active aspirin rash Unknown Active ketorolac hives Unknown Active Naprosyn rash Unknown Active Compazine rash Unknown Active 1Has tolerated ampicillin/sulbactam during 01/2020 [id number] has tolerated piperacillin/tazobactam (08/09/15), cephalexin (01/19/16) and [...] want, does not do flu shot Medications amoxicillin-clavulanate 875 mg-125 mg oral tablet 1 tablet, By Mouth, 2 times a day, for 4 days, # 8 tablet, 0 Refills, Acute 02/11/20 10:00:00 EDT, 02/07/20 10:00:00 EDT, Tablet, [facility], 186, cm, 02/07/20 5:11:00 EDT, Height, 100, kg, 01/30/20 17:49:00 EDT, Dry Weight Start Date: 02/07/20 Stop Date: 02/11/20 Status: Orderedatorvastatin 10 mg oral tablet 1 tablet = 10 mg, By Mouth, Daily, # 30 tablet, 0 Refills, Maintenance, 11/21/19 13:34:00 EDT, Tablet, [facility], 185, cm, 11/21/19 8:47:00 EDT, Height, 104, kg, 11/17/19 18:28:00 EDT, Dry Weight Start Date: 11/21/19 Stop Date: 12/21/19 Status: OrderedcloNIDine 0.1 mg oral tablet 0.2 mg, 2, tablet, By Mouth, 3 times a day, # 180 tablet, Refills 0, Tot. Refills 0, Maintenance, 01/08/20 10:01:00 EDT, Route to Pharmacy Electronically, [facility], 186, cm, 01/07/20 23:30:00 EDT, Height, 97.7, kg, 12/31/19 20:13:00 ED... Start Date: 01/08/20 Stop Date: 02/07/20 Status: Ordereddoxycycline monohydrate 100 mg oral tablet = 100 mg, By Mouth, Every 12 hours, for 4 days, # 8 tablet, 0 Refills, Acute 02/11/20 10:01:00 EDT, 02/07/20 10:01:00 EDT, Tablet, [facility], 186, cm, 02/07/20 5:11:00 EDT, Height, 100, kg, 01/30/20 17:49:00 EDT, Dry Weight Start Date: 02/07/20 Stop Date: 02/11/20 Status: Orderedfolic acid 1 mg oral tablet 1 mg, 1, tablet, By Mouth, Daily, # 30 tablet, Refills 0, Tot. Refills 0, Maintenance, 11/12/19 11:51:00 EDT, Route to Pharmacy Electronically, [facility], 184, cm, 11/11/19 20:33:00 EDT,Height, 100, [...] 0 Refills, Maintenance, 02/07/20 15:04:00 EDT, Injection, [facility], 150 - 199 2 units; 200 - 2494 units ; 250 - 299 6 units ; 300 - 349 8... Start Date: 02/07/20 Status: Orderedlisinopril 40 mg oral tablet 0.5 tablet = 20 mg, By Mouth, Daily, # 15 tablet, 0 Refills, Maintenance, 01/08/20 10:01:00 EDT, Tablet, [facility], 186, cm, 01/07/20 23:30:00 EDT, Height, [...] 0 Refills, Maintenance, 11/12/19 11:53:00 EDT, Capsule, [facility], 1 capsule By Mouth Daily,x30 days, 184, cm, 11/11/19 20:33:00 EDT, Height, 100, kg, 11/07/19 9:02:00 EDT, Dry Weight Start Date: 11/12/19 Stop Date: 12/12/19 Status: OrderedNeurontin 100 mg oral capsule 300 mg, 3, capsule, By Mouth, 3 times a day, # 270 capsule, Refills 0, Tot. Refills 0, Maintenance, 01/08/20 10:02:00 EDT, Route to Pharmacy Electronically, [facility], 186, cm, 01/07/20 23:30:00 EDT, Height, 97.7, kg, 12/31/19 20:13:00... Start Date: 01/08/20 Status: OrderedoxyCODONE 10 mg oral tablet 1 tablet = 10 mg, By Mouth, Every 6 hours, PRN Pain , Severe, for 5 days, # 20 tablet, 0 Refills, Acute 02/12/20 9:55:00 EDT, 02/07/20 9:55:00 EDT, Tablet, Partial fill upon patient request Start Date: 02/07/20 Stop Date: 02/12/20 Status: OrderedPen [place], 31 G x 8 mm BD Ultra [...] 11/21/19 13:34:00 EDT, Route to Pharmacy Electronically, [facility], 185, cm, 11/21/19 8:47:00 EDT, Height, 104, kg, 11/17/19 18:28:00 EDT,... Start Date: 11/21/19 Stop Date: 12/21/19 Status: OrderedXanax 2 mg oral tablet = 2 mg, By Mouth, 3 times a day, PRN as needed for anxiety, for 4 days, # 12 tablet, 0 Refills, Acute 02/11/20 13:43:00 EDT, 02/07/20 13:43:00 EDT, Tablet Start Date: 02/07/20 Stop Date: 02/11/20 Status: Ordered Problem List Condition Effective Dates [...] for Microbiology Reports Name Date Blood Culture 01/30/20 Blood Culture #2 01/30/20 Microbiology Reports TEST:Blood Culture, Second Order STATUS:Auth (Verified) BODY SITE: SOURCE:Blood COLLECTED DATE/TIME:01/30/20 5:07 AMBlood Culture, Second Order SPECIMEN DESCRIPTION : BLOOD RFA SPECIAL REQUESTS : NONE CULTURE : NO GROWTH 5 DAYS. REPORT STATUS : FINAL 02/04/2020TEST:Blood Culture STATUS:Auth (Verified) BODY SITE: SOURCE:Blood COLLECTED DATE/TIME:01/30/20 1:33 AMBlood Culture SPECIMEN DESCRIPTION : BLOOD NO SITE SPECIAL REQUESTS : NONE CULTURE : NO GROWTH 5 DAYS. REPORT STATUS : FINAL 02/04/2020Radiology Reports Exam Date Time Procedure Performing Provider Status 01/30/20 5:40 AM Foot Min 3 Views Left Tk Hernandez; Auth (Arthur ified) Notes:(Foot Min 3 Views Left) Reason For Exam: Localization FilmsRESULT: Foot Min 3 Views Left Foot Min 3 Views Left, 3 views Hx of Present Illness: Pt presents for acute on chronic issue of erythema swelling to RLE. 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 Sts yesterday noticed onset of increased swelling pain. Pt was just seen here 2 days ago for similar issue. Denies fever; Reason: Localization Films; Clinical Question(s): Osteomyelitis COMPARISON: November 29. FINDINGS: Lobulated area of decreased attenuation seen distal aspect of fibula, the area of which isonly well seen on one projection. The possibility that this could be a focus of osteomyelitis is raised. I note that there normally is a fossa in the fibula here and thus some of this could just be positional and/or projection. Consider further evaluation such as with coned-down views of this area. Multiple postoperative findings including metallic screws and félix, but no fracture or dislocation. No other area of suspicion is seen. IMPRESSION: No acute fracture or dislocation seen. Possible/probable lucent area distal fibula raising possibility of focus of osteomyelitis. A Document Only Coles message has been documented in the [employer] system for Espinoza Bowles OUTSIDE SALES REPRESENTATIVE on 01/30/2020 9:11 AM, Message ID [id number]. WSN: [id number] Ordering Physician: Espinoza Bowles Dictated By: Aaron Hall MD Dictated Date/Time: 01/30/20 9:11 am Reviewed By: Aaron Hall MD Signed By: Aaron Hall MD Signed Date/Time: 01/30/20 9:11 am Transcribed By: HAKEEM Transcribed Date/Time: 01/30/20 9:01 am Exam Date Time Procedure Performing Provider Status 01/30/20 1:57 AM Tibia/Fibula 2 Views Right Tk Hernandez; Sarahi (Verified) Notes:(Tibia/Fibula 2 Views Right) Reason For Exam: with Pain;TraumaRESULT: Tibia/Fibula 2 Views Right Ankle Min 3 Views Right, Foot Min 3 Views Right, Tibia/Fibula 2 Views Right Refer to EMR; Hx of Present Illness: Pt presents for acute on chronic issue of erythema swelling to RLE. 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 Sts yesterday noticed onset of increased swelling pain. Pt was just seen here 2 days ago for similar issue. Denies fever; Reason: Trauma; with Pain; Clinical Question(s): Fracture; Special Instructions: This is a protocol film and. 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 Bony structures of lower leg, ankle and foot otherwise unremarkable. No fracture or dislocation seen. No plain film evidence of osteomyelitis at this time. IMPRESSION: Negative studies. WSN: [id number] Ordering Physician: Miguelangel Gauthier Dictated By: Aaron Hall MD Dictated Date/Time: 01/30/20 8:41 am Reviewed By: Aaron Hall MD Signed By: Aaron Hall MD Signed Date/Time: 01/30/20 8:41 am Transcribed By: HAKEEM Transcribed Date/Time: 01/30/20 8:35 am Exam Date Time Procedure Performing Provider Status 01/30/20 5:40 AM Foot Min 3 Views Right Tk Hernandez; Auth (Ve rified) Notes:(Foot Min 3 Views Right) Reason For Exam: InfectionRESULT: Foot Min 3 Views Right Ankle Min 3 Views Right, Foot Min 3 Views Right, Tibia/Fibula 2 Views Right Refer to EMR; Hx of Present Illness: Pt presents for acute on chronic issue of erythema swelling to RLE. 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 Sts yesterday noticed onset of increased swelling pain. Pt was just seen here 2 days ago for similar issue. Denies fever; Reason: Trauma; with Pain; Clinical Question(s): Fracture; Special Instructions: This is a protocol film and. 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 Bony structures of lower leg, ankle and foot otherwise unremarkable. No fracture or dislocation seen. No plain film evidence of osteomyelitis at this time. IMPRESSION: Negative studies. WSN: [id number] Ordering Physician: Miguelangel Gauthier Dictated By: Aaron Hall MD Dictated Date/Time: 01/30/20 8:41 am Reviewed By: Aaron Hall MD Signed By: Aaron Hall MD Signed Date/Time: 01/30/20 8:41 am Transcribed By: HAKEEM Transcribed Date/Time: 01/30/20 8:35 am Exam Date Time Procedure Performing Provider Status 01/30/20 1:57 AM Ankle Min 3 Views Right Tk Hernandez; Auth (V erified) Notes:(Ankle Min 3 Views Right) Reason For Exam: with Pain;TraumaRESULT: Ankle Min 3 Views Right Ankle Min 3 Views Right, Foot Min 3 Views Right, Tibia/Fibula 2 Views Right Refer to EMR; Hx of Present Illness: Pt presents for acute on chronic issue of erythema swelling to RLE. 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 Sts yesterday noticed onset of increased swelling pain. Pt was just seen here 2 days ago for similar issue. Denies fever; Reason: Trauma; with Pain; Clinical Question(s): Fracture; Special Instructions: This is a protocol film and. 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 Bony structures of lower leg, ankle and foot otherwise unremarkable. No fracture or dislocation seen. No plain film evidence of osteomyelitis at this time. IMPRESSION: Negative studies. WSN: [id number] Ordering Physician: Miguelangel Gauthier Dictated By: Aaron Hall MD Dictated Date/Time: 01/30/20 8:41 am Reviewed By: Aaron Hall MD Signed By: Aaron Hall MD Signed Date/Time: 01/30/20 8:41 am Transcribed By: HAKEEM Transcribed Date/Time: 01/30/20 8:35 am Vital Signs Most recent to oldest 1 2 3 [Reference Range]: Height 186 cm 186 cm 186 cm (02/07/20 5:11 AM) (02/06/20 10:17 PM) (02/06/20 5:11 AM) Weight 100 kg (01/30/20 5:49 PM) Oxygen Saturation [94-100 %] 98 % 97 % 95 % (02/07/20 5:11 AM) (02/06/20 10:17 PM) (02/06/20 2:00 PM) Pulse Rate [55-90 bpm] 67 bpm 71 bpm 62 bpm (02/07/20 5:11 AM) (02/06/20 10:17 PM) (02/06/20 2:00 PM) Body Mass Index [18.5-24.99] 28.91 *H* (01/30/20 5:49 PM) Blood Pressure [90-138/55-84 mm 139/81 mm Hg 138/69 mm Hg 131/74 mm Hg Hg] *H* (02/07/20 5:11 AM) (02/06/20 10:17 P M) (02/07/20 8:30 AM) Respiratory Rate [16-30 br/min] 18 br/min 18 br/min 18 br/min (02/07/20 9:30 AM) (02/07/20 9:29 AM) (02/07/20 9:29 A M) Temperature [96.8-100.4 DegF] 98.1 DegF 98.3 DegF 98 .5 DegF (02/07/20 5:11 AM) (02/06/20 10:17 PM) (02/06/20 2:00 PM) Mode of Delivery (Oxygen) Room air Room air Room a ir (02/07/20 5:11 AM) (02/06/20 10:17 PM) (02/06/20 2:00 PM) Blood pressure sites Arm, right Arm, right Arm, right (02/07/20 5:11 AM) (02/06/20 10:17 PM) (02/06/20 2:00 PM) Temperature Route Oral Oral Oral (02/07/20 5:11 AM) (02/06/20 10:17 PM) (02/06/20 2:00 PM) Dry Weight 100 kg (01/30/20 5:49 PM) Social History Social History Type Response Smoking Status Never smoker; Tobacco user i n household: No entered on: 11/28/17 Sex
--- OUTSIDE RECORDS SUMMARY | 2022-05-25 02:42 | XMS_ITS | Continuity of Care Document ---
:1970 Author Organization [facility] Address [address] [place] [phone]- Care Team Providers Name Role Phone Not on Staff, PCP Primary Care Physician Unavailable Encounter [facility] Date(s): 08/05/19 - 08/08/[address] [address]- [facility] Discharge Disposition: A-D/C Home Attending Physician: Geovanny Poon MD Admitting Physician: Francisco Brown DO Referring Physician: Not on Staff, Referring [...] kg, 08/05/19 12:00:00... Start Date: 08/08/19 Status: OrderedABD Pads (6X9) See Instructions, # 30 each, Maintenance, Supply 1 month supply for right diabetic foot, 08/08/19 11:13:00 EST, Compound, 186, cm, 08/08/19 5:36:00 EST, Height, 106.4, kg, 08/05/19 12:00:00 EST, Dry Weight Start Date: 08/08/19 Status: OrderedAqua cell ointment [...] 13:42:00 EST, Compound Start Date: 06/25/19 Status: OrderedCANE -1, FOR UNSTEADY GAIT CANE [...] 06/25/19 13:35:00 EST, Route to Pharmacy Electronically, [facility], 185, cm, 06/24/19 21:45:00 EST, Height, 100.9, kg, 06/22/19 5:41:00 ES... Start Date: 06/25/19 Stop Date: 10/23/19 Status: Ordereddoxycycline hyclate 100 mg oral capsule = 100 mg, By Mouth, Every 12 hours, for 4 days, # 8 capsule, 0 Refills, Acute 08/12/19 10:53:00 EDT,08/08/19 10:53:00 EST, Capsule, [facility], 186, cm, 08/08/19 5:36:00 EST, Height, 106.4, kg, 08/05/19 12:00:00 EST, Dry Weight Start Date: 08/08/19 Stop Date: 08/12/19 Status: Orderedfolic acid 1 mg oral tablet 1 mg, 1, tablet, By Mouth, Daily, # 30 tablet, Refills 0, Tot. Refills 0, Maintenance, 07/30/19 9:31:00 EST, Route to Pharmacy Electronically, [facility], 185.42, cm, 07/30/19 8:03:00 [...] 9:45:31 EST, Compound Start Date: 04/07/19 Status: OrderedGauze Roll (4 ) See Instructions, # 30 each, Maintenance, 1 month supply for right diabetic foot, 08/08/19 11:13:00 EST, Compound, 186, cm, 08/08/19 5:36:00 EST, Height, 106.4, kg, 08/05/19 12:00:00 EST, Dry Weight Start Date: 08/08/19 Status: Orderedhydrochlorothiazide 25 mg oral tablet 25 mg, 1, tablet, By Mouth, Daily, # 30 tablet, Refills 0, Tot. Refills 0, Soft Stop, 07/30/19 9:30:00 EST, Route to Pharmacy Electronically, [facility], 185.42, cm, 07/30/19 8:03:00 EST,Height, 100.9, [...] extremity wounds daily Start Date: 04/29/19 Status: OrderedKeflex monohydrate 500 mg oral capsule 1 capsule = 500 mg, By Mouth, 4 times a day, for 4 days, # 16 capsule, 0 Refills, Acute 08/12/19 10:55:00 EDT, 08/08/19 10:55:00 EST, Capsule, [facility], 186, cm, 08/08/19 5:36:00 EST, Height, 106.4, kg, 08/05/19 12:00:00 EST, Dry Weight Start Date: 08/08/19 Stop Date: 08/12/19 Status: OrderedLantus 100 u/ml subcutaneous solution = 55 units, Subcutaneous Injection, Daily at bedtime, # 15 mL, 2 Refills, Maintenance, 06/25/19 13:35:00 EST, Injection, [facility], 185, cm, 06/24/19 21:45:00 EST, Height, 100.9, kg, 06/22/19 5:41:00 EST, Dry Weight Start Date: 06/25/19 Stop Date: 09/23/19 Status: Orderedlisinopril 40 mg oral tablet 1 tablet = 40 mg, By Mouth, Daily, # 30 tablet, 3 Refills, Maintenance, 06/25/19 13:35:00 EST, Tablet, [facility], 185, cm, 06/24/19 21:45:00 EST, Height, [...] 0 Refills, Maintenance, 08/08/19 10:54:00 EST, Capsule, [facility], 1 capsule By Mouth Daily,x30 days, 186, cm, 08/08/19 5:36:00 EST, Height, 106.4, kg, 08/05/19 12:00:00 EST, Dry Weight Start Date: 08/08/19 Stop Date: 09/07/19 Status: Orderedondansetron 4 mg oral tablet, disintegrating 1 tablet = 4 mg, By Mouth, Every 8 hours, PRN Nausea & Vomiting, # 10 tablet, 0 Refills, Maintenance, 07/25/19 20:05:00 EST, Tablet, [facility], 187, cm, 07/25/19 15:39:00 EST, Height, 100, kg, 07/25/19 15:39:00 EST, Dry Weight Start Date: 07/25/19 Status: OrderedoxyCODONE 5 mg oral capsule 1 capsule = 5 mg, By Mouth, Every 6 hours, PRN as needed for pain, for 3 days, # 12 tablet, 0 Refills, Acute 08/11/19 11:23:00 EDT, 08/08/19 11:23:00 EST, Capsule, [facility], Partial fill upon patient request, 186, cm, 08/08/19 5:36:00... Start Date: 08/08/19 Stop Date: 08/11/19 Status: OrderedQUEtiapine 100 mg oral tablet 100 mg, 1, tablet, By Mouth, 2 times a day, # 60 tablet, Refills 3, Tot. Refills 3, Maintenance, 06/25/19 13:36:00 EST, Route to Pharmacy Electronically, [facility], 185, cm, 06/24/19 21:45:00 EST, Height, 100.9, kg, 06/22/19 5:41:00 EST... Start Date: 06/25/19 Stop Date: 10/23/19 Status: Orderedthiamine 100 mg oral tablet 100 mg, 1, tablet, By Mouth, Daily, for 14 days, # 14 tablet, Refills 0, Tot. Refills 0, Acute 08/13/19 9:31:00 EDT, 07/30/19 9:31:00 EST, Route to Pharmacy Electronically, [facility], 185.42, cm, 07/30/19 8:03:00 EST, Height, 100.9, kg,... Start Date: 07/30/19 Stop Date: 08/13/19 Status: OrderedTylenol 325 mg oral tablet 650 mg, 2, tablet, By Mouth, Every 6 hours, PRN, Refills 0, Maintenance, Pain , Mild Pain , Moderate Headache, 08/08/19 10:53:00 EST Start Date: 08/08/19 Status: OrderedXeroform (1x8) See Instructions, # 30 each, Maintenance, 1 month supply for right diabetic foot, 08/08/19 11:13:00 EST, Compound, 186, cm, 08/08/19 5:36:00 EST, Height, 106.4, kg, 08/05/19 12:00:00 EST, Dry Weight Start Date: 08/08/19 Status: Orderedzinc oxide 10% topical cream See Instructions, Topically 2 times a day, # 78 Gm, 0 Refills, Acute 09/10/19 21:00:00 EDT, 08/07/2010:18:00 EST, [facility], Topically 2 times a day, 186, cm, 08/08/19 5:36:00 EST, Height, 106.4, kg, 08/05/19 12:00:00 EST, Dry Weight Start Date: 08/08/19 Stop Date: 09/10/19 Status: Ordered Problem List Condition Effective Dates [...] for Microbiology Reports Name Date Blood Culture 08/05/19 Blood Culture #2 08/05/19 Microbiology Reports TEST:Blood Culture, Second Order STATUS:Unauthenticated BODY SITE: SOURCE:Blood COLLECTED DATE/TIME:08/05/19 2:15 AMBlood Culture, Second Order SPECIMEN DESCRIPTION : BLOOD LAC SPECIAL REQUESTS : NONE CULTURE : NO GROWTH 3 DAYS REPORT STATUS : PRELIMINARY REPORT TEST:Blood Culture STATUS:Unauthenticated BODY SITE: SOURCE:Blood COLLECTED DATE/TIME:08/05/19 1:47 AMBlood Culture SPECIMEN DESCRIPTION : BLOOD RIGHT UPPER ARM SPECIAL REQUESTS : NONE CULTURE : NO GROWTH 3 DAYS REPORT STATUS : PRELIMINARY REPORT Radiology Reports Exam Date Time Procedure Performing Provider Status 08/05/19 3:25 AM Foot Min 3 Views Right Maurizio Hernandez (Ve rified) Notes:(Foot Min 3 Views Right) Reason For Exam: InfectionRESULT: Foot Min 3 Views Right Foot Min 3 Views Right, 3 views INDICATION: Infection; Clinical Question(s): Osteomyelitis; Hx of Present Illness: pt coming in withbilat foot pain to known ulcers. Report had been taking PO ABX for infection and believes they are now getting worse again. Finished ABX 1 week ago per pt COMPARISON: 07/28/2019 FINDINGS: No evidence of acute fracture or dislocation. Status post transmetatarsal amputation of all digits, unchanged. No evidence of acute bony destruction. There is soft tissue swelling at the stump with multiple surgical clips present. No unexpected radiopaque foreign body. IMPRESSION: No evidence of acute osseous abnormality. No significant change from prior. WSN: [id number] Dictated By: Skyler Arevalo MD Dictated Date/Time: 08/05/19 9:03 am Reviewed By: Skyler Arevalo MD Signed By: Skyler Arevalo MD Signed Date/Time: 08/05/19 9:03 am Transcribed By: HAKEEM Transcribed Date/Time: 08/05/19 9:02 am Exam Date Time Procedure Performing Provider Status 08/05/19 3:25 AM Foot Min 3 Views Left Maurizio Hernandez (Arthur ified) Notes:(Foot Min 3 Views Left) Reason For Exam: InfectionRESULT: Foot Min 3 Views Left Foot Min 3 Views Left, 3 views Indication: Infection; Clinical Question(s): Osteomyelitis; Hx of Present Illness: pt coming in withbilat foot pain to known ulcers. Report had been taking PO ABX for infection and believes they are now getting worse again. Finished ABX 1 week ago per pt COMPARISON: 07/28/2019 FINDINGS: Unchanged surgical hardware. Unchanged chronic deformity of the fourth and fifth metatarsals. No evidence of acute fracture or dislocation. No evidence of acute bony destruction. Soft tissue swelling around the forefoot. IMPRESSION: No evidence of acute osseous abnormality. WSN: [id number] Dictated By: Skyler Arevalo MD Dictated Date/Time: 08/05/19 9:02 am Reviewed By: Skyler Arevalo MD Signed By: Skyler Arevalo MD Signed Date/Time: 08/05/19 9:02 am Transcribed By: HAKEEM Transcribed Date/Time: 08/05/19 9:00 am Vital Signs Most recent to oldest 1 2 3 [Reference Range]: Height 186 cm 186 cm 186 cm (08/08/19 5:36 AM) (08/07/19 10:08 PM) (08/07/19 5:28 AM) Weight 106.4 kg 106.4 kg (08/05/19 10:35 AM) (08/05/19 8:49 AM) Oxygen Saturation [94-100 %] 95 % 100 % 100 % (08/08/19 5:36 AM) (08/07/19 10:08 PM) (08/07/19 1:00 PM) Pulse Rate [55-90 bpm] 58 bpm 58 bpm 77 bpm (08/08/19 5:36 AM) (08/07/19 10:08 PM) (08/07/19 1:00 PM) Body Mass Index [18.5-24.99] 30.76 30.76 *>HHI* *>HHI* (08/05/19 10:35 AM) (08/05/19 8:49 AM) Blood Pressure [90-138/55-84 mm 120/77 mm Hg 114/71 mm Hg 115/66 mm Hg Hg] (08/08/19 9:22 AM) (08/08/19 5:36 AM) (08/07/19 10:08 PM) Respiratory Rate [16-30 br/min] 18 br/min 18 br/min 18 br/min (08/08/19 10:58 AM) (08/08/19 10:21 AM) (08/08/19 10:2 1 AM) Temperature [96.8-100.4 DegF] 97.7 DegF 97.8 DegF 97 .7 DegF (08/08/19 5:36 AM) (08/07/19 10:08 PM) (08/07/19 1:00 PM) Mode of Delivery (Oxygen) Room air Room air Room a ir (08/08/19 5:36 AM) (08/07/19 10:08 PM) (08/07/19 1:00 PM) Blood pressure sites Arm, right Arm, right Arm, right (08/08/19 5:36 AM) (08/07/19 10:08 PM) (08/07/19 1:00 PM) Temperature Route Oral Oral Oral (08/08/19 5:36 AM) (08/07/19 10:08 PM) (08/07/19 1:00 PM) Dry Weight 106.4 kg (08/05/19 8:49 AM) Weight Obtained Via Bed scale Bed scale (08/05/19 10:35 AM) (08/05/19 8:49 AM) Dry Weight Obtained Via Bed scale (08/05/19 8:49 AM) Sensory deficits None (08/05/19 8:49 AM) Mobility assistance Independent (08/05/19 8:49 AM) Social History Social History Type Response Smoking Status Never smoker; Tobacco user i n household: No entered on: 11/28/17 Sex Male
--- OUTSIDE RECORDS SUMMARY | 2022-05-25 02:42 | XMS_ITS | Continuity of Care Document ---
:1970 Author Organization [facility] Address [address] [place] [id number]- Care Team Providers Name Role Phone Not on Staff, PCP Primary Care Physician Unavailable [facility] Date[facility]s): 08/14/19 - 08/26/[address] [address]- [facility] Encounter Diagnosis Diabetic foot ulcers (Final) - 08/14/19 Discharge Disposition: A-D/C Home Attending Physician: Justin Holland MD Admitting Physician: Kaycee Hardin MD Referring [...] 06/25/19 13:35:00 EST, Route to Pharmacy Electronically, [facility], 185, cm, 06/24/19 21:45:00 EST, Height, 100.9, kg, 06/22/19 5:41:00 ES... Start Date: 06/25/19 Stop Date: 10/23/19 Status: Orderedfolic acid 1 mg oral tablet 1 mg, 1, tablet, By Mouth, Daily, # 30 tablet, Refills 0, Tot. Refills 0, Maintenance, 07/30/19 9:31:00 EST, Route to Pharmacy Electronically, [facility], 185.42, cm, 07/30/19 8:03:00 EST, Height, 100.9, kg, 07/28/19 14:57:00 EST, Dry We... Start Date: 07/30/19 Status: OrderedFreestyle InsuLinx Glucose Meter See Instructions, # 1 each, Maintenance, use as directed for Type 2 Diabetes Mellitus, 04/07/19 9:46:49 EST, Compound Start Date: 04/07/19 Status: OrderedFreestyle InsuLinx Lancets See Instructions, # 100 each, Maintenance, use as directed for Type 2 Diabetes Mellitus, 08/26/19 13:01:00 EDT, Compound, 118, cm, 08/26/19 7:25:00 EDT, Height, 92, kg, 08/15/19 0:10:00 EDT, Dry Weight Start Date: 08/26/19 Status: OrderedFreestyle InsuLinx Test Strips See Instructions, # 90 each, Refills 0, Tot. Refills 0, Maintenance, check BG QAC and keep documentation, show it to PCP on next visit, 08/26/19 13:01:00 EDT, Compound, 118, cm, 08/26/19 7:25:00 EDT, Height, 92, kg, 08/15/19 0:10:00 EDT, Dry Weight Start Date: 08/26/19 Status: OrderedGauze Roll (4 ) See Instructions, [...] 07/30/19 9:30:00 EST, Route to Pharmacy Electronically, [facility], 185.42, cm, 07/30/19 [...] as directed for Type 2 Diabetes Mellitus, 08/26/19 13:01:00 EDT, for insulin administration 4x a day, Compound, 118, cm, 08/26/19 7:25:00 EDT, Height, 92, kg, 08/15/19 0:10:00 E... Start Date: 08/26/19 Stop Date: 10/25/19 Status: OrderedIodosorb 0.9% topical gel See Instructions, Apply to bilateral lower extremity wounds daily, # 1 each, 1 Refills, Maintenance,04/29/19 16:04:54 EST, Apply to bilateral lower extremity wounds daily Start Date: 04/29/19 Status: OrderedKlonoPIN 0.5 mg oral tablet 1 tablet = 0.5 mg, By Mouth, 2 times a day, prn, # 20 tablet, 0 Refills, Maintenance, 08/26/19 13:02:00 EDT, Tablet, [facility], 118, cm, 08/26/19 7:25:00 EDT, Height, 92, kg, 08/15/19 0:10:00 EDT, Dry Weight Start Date: 08/26/19 Status: OrderedLantus 100 u/ml subcutaneous solution = 65 units, Subcutaneous Injection, Daily at bedtime, # 15 mL, 2 Refills, Maintenance, 06/25/19 13:35:00 EST, Injection, [facility], 185, cm, 06/24/19 21:45:00 EST, Height, 100.9, kg, 06/22/19 5:41:00 EST, Dry Weight Start Date: 06/25/19 Stop Date: 09/23/19 Status: Orderedlisinopril 40 mg oral tablet 1 tablet = 40 mg, By Mouth, Daily, # 30 tablet, 3 Refills, Maintenance, 06/25/19 13:35:00 EST, Tablet, [facility], 185, cm, 06/24/19 21:45:00 EST, Height, 100.9, kg, 06/22/19 5:41:00 EST,Dry Weight Start Date: 06/25/19 Stop Date: 10/23/19 Status: Orderedmethadone 10 mg oral tablet = 110 mg, By Mouth, Daily in AM, 0 Refills, Maintenance, 04/07/19 9:51:48 EST, Tablet, Partial fill upon patient request Start Date: 04/07/19 Status: Orderedmultivitamin Multiple Vitamins oral capsule 1 capsule, By Mouth, Daily, # 30 capsule, 0 Refills, Maintenance, 08/08/19 10:54:00 EST, Capsule, [facility], 1 capsule By Mouth Daily,x30 days, 186, cm, 08/08/19 5:36:00 EST, Height, 106.4, kg, 08/05/19 12:00:00 EST, Dry Weight Start Date: 08/08/19 Stop Date: 09/07/19 Status: OrderedoxyCODONE 5 mg oral tablet 5 mg, 1, tablet, By Mouth, Every 6 hours, PRN, # 20 tablet, Refills 0, Tot. Refills 0, Acute 08/31/19 20:00:00 EDT, Pain , Moderate, 08/26/19 10:33:00 EDT, Route to Pharmacy Electronically, [facility], Partial fill upon patient request,... Start Date: 08/26/19 Stop Date: 08/31/19 Status: OrderedQUEtiapine 100 mg oral tablet 100 mg, 1, tablet, By Mouth, 2 times a day, # 60 tablet, Refills 3, Tot. Refills 3, Maintenance, 06/25/19 13:36:00 EST, Route to Pharmacy Electronically, [facility], 185, cm, 06/24/19 21:45:00 EST, Height, 100.9, kg, 06/22/19 5:41:00 EST... Start Date: 06/25/19 Stop Date: 10/23/19 Status: OrderedWheelchair See Instructions, # 1 each, Maintenance, Pt requires wheelcahir for ambulation as he has chronic diabetic ulcers as well as right toe amputations which impede his ability to ambulate without a wheelchair, 08/22/19 13:27:00 EDT, Compound Start Date: 08/22/19 Status: OrderedXeroform (1x8) See Instructions, # 30 each, Maintenance, 1 month supply for right diabetic foot, 08/08/19 11:13:00 EST, Compound, 186, cm, 08/08/19 5:36:00 EST, Height, 106.4, kg, 08/05/19 12:00:00 EST, Dry Weight Start Date: 08/08/19 Status: Orderedzinc oxide 10% topical cream See Instructions, Topically 2 times a day, # 78 Gm, 0 Refills, Acute 09/10/19 21:00:00 EDT, 08/07/2010:18:00 EST, [facility], Topically 2 times a [...] for Microbiology Reports Name Date Blood Culture 08/14/19 Blood Culture #2 08/14/19 Microbiology Reports TEST:Blood Culture STATUS:Auth (Verified) BODY SITE: SOURCE:Blood COLLECTED DATE/TIME:08/14/19 7:00 PMBlood Culture SPECIMEN DESCRIPTION : BLOOD RAC SPECIAL REQUESTS : NONE CULTURE : NO GROWTH 5 DAYS. REPORT STATUS : FINAL 08/19/2019TEST:Blood Culture, Second Order STATUS:Auth (Verified) BODY SITE: SOURCE:Blood COLLECTED DATE/TIME:08/14/19 7:00 PMBlood Culture, Second Order SPECIMEN DESCRIPTION : BLOOD LAC SPECIAL REQUESTS : NONE CULTURE : NO GROWTH 5 DAYS. REPORT STATUS : FINAL 08/19/2019Radiology Reports Exam Date Time Procedure Performing Provider Status 08/14/19 8:05 PM Foot Min 3 Views Left Afshan Morton; Auth (Ve rified) Notes:(Foot Min 3 Views Left) Reason For Exam: diabetic ulcers;Other:RESULT: Foot Min 3 Views Left Foot Min 3 Views Left, 3 views INDICATION: Diabetic ulcers in both feet, complete antibiotics without improvement. CLINICAL question: Osteomyelitis. COMPARISON: August 05, 2019. FINDINGS: Unchanged surgical hardware and chronic deformity of the fourth and fifth metatarsals. No acute fracture or dislocation. No evidence of acute bone destruction. IMPRESSION: No evidence of acute osteomyelitis. Note that acute osteomyelitis can be on radiography. I have personally reviewed the images and I agree with this report. WSN: [id number] Ordering Physician: Bela Carrizales Dictated By: Colby SHAFER, Frederick Pendleton Dictated Date/Time: 08/14/19 8:36 pm Reviewed By: Omero Marino MD Signed By: Omero Marino MD Signed Date/Time: 08/14/19 8:41 pm Transcribed By: HAKEEM Transcribed Date/Time: 08/14/19 8:27 pm Exam Date Time Procedure Performing Provider Status 08/14/19 8:05 PM Foot Min 3 Views Right Afshan Morton; Auth (V erified) Notes:(Foot Min 3 Views Right) Reason For Exam: diabetic ulcers;Other:RESULT: Foot Min 3 Views Right Foot Min 3 Views Right, 3 views REASON: DIABETIC ULCERS; CLINICAL QUESTION(S): OTHER:; ?OSTEO; HX OF PRESENT ILLNESS: DIABETIC ULCERS ON BOTH FEET. COMPARISON: 08/05/2019 FINDINGS: Reidentified amputation at the level of the proximal metatarsals. No definite periosteal reaction orerosion identified. Marked swelling of the soft tissue stump. Areas of ulceration are noted. No fracture. IMPRESSION: No definite evidence of osteomyelitis. Note that acute osteomyelitis can be occult on radiography. WSN: [id number] Ordering Physician: Bela Carrizales Dictated By: Omero Marino MD Dictated Date/Time: 08/14/19 8:21 pm Reviewed By: Omero Marino MD Signed By: Omero Marino MD Signed Date/Time: 08/14/19 8:21 pm Transcribed By: HAKEEM Transcribed Date/Time: 08/14/19 8:18 pm Vital Signs Most recent to oldest 1 2 3 4 [Reference Range]: Height 118 cm 118 cm 118 cm (08/26/19 7:25 AM) (08/25/19 3:25 PM) (08/25/19 7:51 AM) Weight 102.0 kg 92 kg (08/17/19 2:08 PM) (08/15/19 12:10 AM) Oxygen Saturation 98 % 99 % 99 % [94-100 %] (08/26/19 7:25 AM) (08/26/19 12:11 AM) (08/25/19 7:20 PM) Pulse Rate [55-90 64 bpm 66 bpm 70 bpm bpm] (08/26/19 7:25 AM) (08/26/19 12:11 AM) (08/25/19 7:20 PM) Body Mass Index 73.25 66.07 [18.5-24.99] *>HHI* *>HHI* (08/17/19 2:08 PM) (08/15/19 12:10 AM) Blood Pressure 118/71 mm Hg 125/76 mm Hg 132/77 mm Hg [90-138/55-84 mm Hg] (08/26/19 7:25 AM) (08/26/19 12:11 AM) (08/25/19 7:20 PM) Respiratory Rate 20 br/min 20 br/min 16 br/min 16 br/min [16-30 br/min] (08/26/19 10:52 AM) (08/26/19 10:52 AM) (08/26/19 8:02 AM) (08/26/19 8:02 AM) Temperature 98.6 DegF 98.3 DegF 98.5 DegF [96.8-100.4 DegF] (08/26/19 7:25 AM) (08/26/19 12:11 AM) (08/25/19 7:2 0 PM) Mode of Delivery Room air Room air Room air (Oxygen) (08/26/19 7:25 AM) (08/26/19 12:11 AM) (08/25/19 7:20 PM) Blood pressure sites Arm, left Arm, left Arm, left (08/26/19:25 AM) (08/26/19 12:11 AM) (08/25/19 7:20 PM) Temperature Route Oral Oral Oral (08/26/19 7:25 AM) (08/26/19 12:11 AM) (08/25/19 7:20 PM) Dry Weight 92 kg (08/15/19 12:10 AM) Weight Obtained Via Bed scale (08/17/19 2:08 PM) Sensory deficits None (08/15/19 12:10 AM) Mobility assistance Independent Independent (08/15/19 4:00 PM) (08/15/19 12:10 AM) Social History Social History Type Response Smoking Status Never smoker; Tobacco user i n household: No entered on: 11/28/17 Sex Male
--- OUTSIDE RECORDS SUMMARY | 2022-05-25 02:42 | XMS_ITS | Continuity of Care Document ---
:1970 Author Organization [facility] Address [address] [place] [address]- Care Team Providers Name Role Phone Not on Staff, PCP Primary Care Physician Unavailable Encounter [facility] Date(s): 10/14/19 - 10/17/[address] [address]- [facility] Encounter Diagnosis ABBY (acute kidney injury) (Final) - 10/14/19 Discharge Disposition: A-D/C Home Attending Physician: Faviola Polanco MD Admitting Physician: Bill Mohr MD Referring Physician: Not on Staff, Referring [...] 5:36:00EST, Height, 106.4, kg, 08/05/19 12:00:00 EST, DrKaren.Karen Start Date: 08/08/19 Status: Orderedatorvastatin 10 mg [...] 9:46:00 EST, Supply Start Date: 08/08/19 Status: Orderedcephalexin monohydrate 500 mg oral capsule 2 capsule = 1,000 mg, By Mouth, Every 8 hours, # 40 capsule, 0 Refills, Acute 10/23/19 23:00:00 EDT,10/17/19 16:19:00 EDT, Capsule, [facility], 183, cm, 10/17/19 15:43:00 EDT, Height, 97.6, kg, 10/14/19 16:24:00 EDT, Dry Weight Start Date: 10/17/19 Stop Date: 10/23/19 Status: OrderedcloNIDine 0.1 mg oral tablet 0.3 mg, 3, tablet, By Mouth, 3 times a day, # 270 tablet, Refills 3, Tot. Refills 3, Maintenance, 06/25/19 13:35:00 EST, Route to Pharmacy Electronically, [facility], 185, cm, 06/24/19 21:45:00 EST, Height, 100.9, kg, 06/22/19 5:41:00 ES... Start Date: 06/25/19 Stop Date: 10/23/19 Status: OrderedDilaudid 2 mg oral tablet 1 tablet = 2 mg, By Mouth, Every 4 hours, PRN Pain , Severe, # 7 tablet, 0 Refills, Acute 10/28/19 23:00:00 EDT, 10/17/19 16:19:00 EDT, Tablet, Partial fill upon patient request Start Date: 10/17/19 Stop Date: 10/28/19 Status: Orderedfolic acid 1 mg oral tablet 1 mg, 1, tablet, By Mouth, Daily, # 30 tablet, Refills 0, Tot. Refills 0, Maintenance, 07/30/19 9:31:00 EST, Route to Pharmacy Electronically, [facility], 185.42, cm, 07/30/19 8:03:00 EST, Height, 100.9, kg, 07/28/19 14:57:00 EST, Dry We... Start Date: 07/30/19 Status: Orderedhydrochlorothiazide 25 mg oral tablet 25 mg, 1, tablet, By Mouth, Daily, # 30 tablet, Refills 0, Tot. Refills 0, Soft Stop, 07/30/19 9:30:00 EST, Route to Pharmacy Electronically, [facility], 185.42, cm, 07/30/19 8:03:00 EST,Height, 100.9, [...] Start Date: 04/07/19 Stop Date: 05/07/19 Status: OrderedKlonoPIN 0.5 mg oral tablet 1 tablet = 0.5 mg, By Mouth, 2 times a day, prn, # 20 tablet, 0 Refills, Maintenance, 10/17/19 16:18:00 EDT, Tablet, Dry Weight Start Date: 10/17/19 Status: OrderedLantus 100 u/ml subcutaneous solution = 65 units, Subcutaneous Injection, Daily at bedtime, # 15 mL, 2 Refills, Maintenance, 06/25/19 13:35:00 EST, Injection, [facility], 185, cm, 06/24/19 21:45:00 EST, Height, 100.9, kg, 06/22/19 5:41:00 EST, Dry Weight Start Date: 06/25/19 Stop Date: 09/23/19 Status: Orderedlisinopril 40 mg oral tablet 1 tablet = 40 mg, By Mouth, Daily, # 30 tablet, 3 Refills, Maintenance, 06/25/19 13:35:00 EST, Tablet, [facility], 185, cm, 06/24/19 21:45:00 EST, Height, [...] 0 Refills, Maintenance, 08/08/19 10:54:00 EST, Capsule, [facility], 1 capsule By Mouth Daily,x30 days, 186, cm, 08/08/19 5:36:00 EST, Height, 106.4, kg, 08/05/19 12:00:00 EST, Dry Weight Start Date: 08/08/19 Stop Date: 09/07/19 Status: OrderedQUEtiapine 100 mg oral tablet 100 mg, 1, tablet, By Mouth, 2 times a day, # 60 tablet, Refills 3, Tot. Refills 3, Maintenance, 06/25/19 13:36:00 EST, Route to Pharmacy Electronically, [facility], 185, cm, 06/24/19 21:45:00 [...] Results Orders for Microbiology Reports Name Date Wound Superficial Culture W/ Gram Smear (Superficial W ound Culture W/ Gram 10/14/19 Smear) Blood Culture 10/13/19 Blood Culture #2 10/13/19 Microbiology Reports TEST:Superficial Wound Culture STATUS:Auth (Verified) BODY SITE: SOURCE:SWAB1 COLLECTED DATE/TIME:10/14/19 7:40 AMSuperficial Wound Culture SPECIMEN DESCRIPTION : SWAB FOOT LT SPECIAL REQUESTS : NONE GRAM STAIN : 2+ POLYMORPHONUCLEAR LEUKOCYTES NO ORGANISMS SEEN CULTURE : 1+ STREPTOCOCCI, GR.G BETA HEMOLYTIC SUSCEPTIBILITY TESTING NOT ROUTINELY PERFORMED ON THIS ISOLATE. No other significant microorganisms isolated. Please consult the laboratory ([phone]) within 7 days if more definitive studies are clinically indicated. REPORT STATUS : FINAL 10/16/2019TEST:Blood Culture STATUS:Unauthenticated BODY SITE: SOURCE:Blood COLLECTED DATE/TIME:10/13/19 8:02 PMBlood Culture SPECIMEN DESCRIPTION : BLOOD NO SITE SPECIAL REQUESTS : NONE CULTURE : NO GROWTH 4 DAYS REPORT STATUS : PRELIMINARY REPORT TEST:Blood Culture, Second Order STATUS:Unauthenticated BODY SITE: SOURCE:Blood COLLECTED DATE/TIME:10/13/19 8:02 PMBlood Culture, Second Order SPECIMEN DESCRIPTION : BLOOD NO SITE SPECIAL REQUESTS : NONE CULTURE : NO GROWTH 4 DAYS REPORT STATUS : PRELIMINARY REPORT Radiology Reports Exam Date Time Procedure Performing Provider Status 10/13/19 7:02 PM Foot 2 Views Left Faustin, Wilian; Auth (Verified ) Notes:(Foot 2 Views Left) Reason For Exam: InfectionRESULT: Foot 2 Views Left Foot 2 Views Left, 3 views Reason: Infection COMPARISON: None. FINDINGS: Unchanged surgical hardware and chronic deformity of the fourth and fifth metatarsals. No acute fracture or dislocation. No evidence of acute bone destruction. IMPRESSION: No evidence of acute osteomyelitis. WSN: [id number] Ordering Physician: Michelle Gallo Dictated By: Marya Pompa MD, V Dictated Date/Time: 10/13/19 7:18 pm Reviewed By: Marya Pompa MD, V Signed By: Marya Pompa MD, V Signed Date/Time: 10/13/19 7:18 pm Transcribed By: HAKEEM Transcribed Date/Time: 10/13/19 7:16 pm Exam Date Time Procedure Performing Provider Status 10/13/19 7:02 PM Foot 2 Views Right Faustin, Wilian; Auth (Verifie d) Notes:(Foot 2 Views Right) Reason For Exam: InfectionRESULT: Foot 2 Views Right Foot 2 Views Right, 3 views Reason: Infection; non healing ulcers to rt foot. COMPARISON: 08/14/19. FINDINGS: Evidence of foot amputation through metatarsals as before. No bony erosion or periosteal reaction. IMPRESSION: No radiographic evidence of osteomyelitis. If clinical suspicion remains high, consider 3 phase bonescan. WSN: [id number] Ordering Physician: Michelle Gallo Dictated By: Marya Pompa MD, V Dictated Date/Time: 10/13/19 7:16 pm Reviewed By: Marya Pompa MD, V Signed By: Marya Pompa MD, V Signed Date/Time: 10/13/19 7:16 pm Transcribed By: CSKirti Transcribed Date/Time: 10/13/19 7:12 pm Vital Signs Most recent to oldest 1 2 3 [Reference Range]: Height 183 cm 183 cm 183 cm (10/17/19 3:43 PM) (10/17/19 7:52 AM) (10/17/19 4:4 5 AM) Weight 101.8 kg (10/14/19 11:14 AM) Oxygen Saturation [94-100 100 % 100 % 98 % %] (10/17/19 3:43 PM) (10/17/19 7:52 AM) (10/17/19 4:4 5 AM) Pulse Rate [55-90 bpm] 76 bpm 53 bpm 56 bpm (10/17/19 3:43 PM) *L* (10/17/19 4:45 AM) (10/17/19 7:52 AM) Body Mass Index 30.4 [18.5-24.99] *>HHI* (10/14/19 11:14 AM) Blood Pressure 151/87 mm Hg 147/95 mm Hg 122/64 mm Hg [90-138/55-84 mm Hg] *H* *H* (10/17/19 4: 45 AM) (10/17/19 3:43 PM) (10/17/19 7:52 AM) Respiratory Rate [16-30 18 br/min 16 br/min 16 br/mi n br/min] (10/17/19 4:00 PM) (10/17/19 3:43 PM) (10/17/19 12: 04 PM) Temperature [96.8-100.4 100.3 DegF 98.5 DegF 98.9 Deg F DegF] (10/17/19 3:43 PM) (10/17/19 7:52 AM) (10/17/19 4:4 5 AM) Mode of Delivery (Oxygen) Room air Room air Room a ir (10/17/19 3:43 PM) (10/17/19 7:52 AM) (10/17/19 4:4 5 AM) Blood pressure sites Arm, right Arm, right Arm, right (10/17/19 3:43 PM) (10/17/19 7:52 AM) (10/17/19 4:4 5 AM) Temperature Route Oral Oral Oral (10/17/19 3:43 PM) (10/17/19 7:52 AM) (10/17/19 4:4 5 AM) Dry Weight 97.6 kg (10/14/19 11:14 AM) Weight Obtained Via Bed scale (10/14/19 11:14 AM) Dry Weight Obtained Via Patient/family stated (10/14/19 11:14 AM) Social History Social History Type Response Smoking Status Never smoker; Tobacco user i n household: No entered on: 11/28/17 Sex Male
--- OUTSIDE RECORDS SUMMARY | 2022-05-25 02:43 | XMS_ITS ---
:1970 Author Care Team Providers Name Role Phone [facility] OTHER [phone] FLORINA NEWTON MD Primary Care Provider [phone] [facility] OTHER [phone] Allergies Code Code System Name Reaction Severity Status Onset 23291 RxNorm Ketorolac Rash ? Active ? 8558 RxNorm Naproxen Rash ? Active ? Penicillins Rash ? Active ? 8704 RxNorm Prochlorperazine Rash ? Active ? 1191 RxNorm Aspirin Rash ? Deactivated ? Notes: has been taking ASA without iss ue despite previously documented ASA allergy Medications No Medications Reported Notes: Meds reviewed; see MAR for deta ils Problems Name Status Onset Date Source ? Type 2 Diabetes Mellitus Active 12/17/2019 ? Diabetic Foot Ulcer Active 12/17/2019 ? Schizophrenia Active 12/17/2019 ? Anxiety Active 12/17/2019 ? Essential Hypertension Active 12/17/2019 ? Opioid Dependence Active 12/24/2019 ? Chronic rtvi-[id number] Syndrome Active 11/01/2021 ? Chronic Constipation Active 11/02/2021 ? Chronic Pain Syndrome Active 01/03/2022 ? Procedures None recorded. Results Lab Results None recorded. Past Encounters Encounter Date Diagnosis Provider 01/10/2022 Noncompliance with Treatment ROOSEVELT MathisC: [address] [place] [address] [phone], Ph. 01/03/2022 Chronic Pain Syndrome Lyn Mckeon MD: [address] [place] [address] [phone], Ph. 12/28/2021 Chronic Pain Syndrome; Weight Gain; Lyn Mckeon MD: [address] [place] [address] Chronic idnf-[id number]-24 Syndrome; [place] [phone], Ph. Essential Hypertension; Acquired Thrombocytopenia; Peripheral Angiopathy Due to Type 1 Diabetes Mellitus; Recurrent Falls; Asthenia; Type 2 Diabetes Mellitus with Peripheral Angiopathy; Chronic Diastolic Heart Failure; Opioid Dependence; Anxiety; Medication Monitoring 12/24/2021 Pain of Left Knee Region Ana Barone PA-C: [address], [place] [phone], Ph. 12/23/2021 Pain of Left Knee Joint Ana Barone PA-C: [address], [place] [phone], Ph. 12/15/2021 Pain of Left Knee Joint Ana Barone PA-C: [address], [place] [phone], Ph. 11/30/2021 Weight Gain; Chronic [id number]-45 Yunior Barone PA-C: [address] Syndrome; Essential Hypertension; Road, [place] [phone], Ph. Acquired Thrombocytopenia; Peripheral [phone] Angiopathy Due to Type 1 Diabetes Mellitus; Chronic Pain Syndrome; Recurrent Falls 11/22/2021 Abscess of Left Lower Limb; Chronic Patr icia Justo, BEHAVIORAL SPECIALIST: [address] [id number]-[id number]-89 Syndrome; [address], [place] [phone], Ph. Liver Enzymes Level; Type 2 Diabetes Mellitus; Essential Hypertension 11/19/2021 Abscess of Left Lower Limb; Chronic Patr christian Kemp, BEHAVIORAL SPECIALIST: [address] dskh-WTUUP-70 Syndrome; [address], [place] [address], Ph. Liver Enzymes Level; Type 2 Diabetes Mellitus 11/12/2021 Abscess of Left Lower Limb; Anxiety Sridhar Barone PA-C: [address], [place] [phone], Ph. 11/03/2021 Chronic qdvg-VTTMO-25 Syndrome; Ana Barone PA-C: [address] Anemia; Elevated Liver Enzymes Level; [address], [place] [address], Ph. Acquired Pancytopenia; Essential [phone] Hypertension; Anxiety; Chronic Pain Syndrome 10/29/2021 Chronic rbka-ETAPL-30 Syndrome; Lyn longo MD: [address] Asthenia; Type 2 [place] [address], Ph. with Peripheral Angiopathy; Essential [phone] Hypertension; Chronic Diastolic Heart Failure; Opioid Dependence; Anxiety; Advance Care Planning; Chronic Constipation 10/28/2021 Chronic ikln-IEEST-66 Syndrome; ROOSEVELT CurryC: [address] [place] [phone], Ph. 10/27/2021 Post-acute COVID-19; Chronic Ana powell PAHavenC: [address] Hypoxemic Respiratory Failure; [place] [address], Ph. Peripheral Angiopathy Due to Type [phone] Diabetes Mellitus; Essential Hypertension; Chronic Diastolic Heart Failure; Opioid Dependence; Anxiety; Advance Care Planning; Cobalamin Deficiency Social History Tobacco Smoking Status Former Smoker Vaccine List Vaccine Type COVID-19, mRNA, LNP-S, PF, 30 mcg/0.3 mL dose ([employer]) 10/08/2020 03/02/2021 05/10/2021 05/21/2021 influenza, injectable, quadrivalent 04/21/2021 Notes: Immunizations reconciled as of 10/28/21 Needs PCV20 and then pneumococcal vaccin es will be complete per CDC guidelines as of this date Plan of Care Patient Goals H&H slightly down -- follow Reminders Provider Appointments None recorded. ? ? Lab None recorded. ? ? Referral None recorded. ? ? Procedures None recorded. ? ? Surgeries None recorded. ? ? Imaging None recorded. ? ? Vitals 01/10/2022 08:36PM Acute Rounding Visit Height Blood Pressure 6 ft 1 in 126/60 mm[Hg] 12/28/2021 03:24PM Routine Rounding Visit Height Weight BMI Blood Pressure 6 ft 1 in 248 lbs 32.7 kg/m2 126/60 mm[Hg] 12/24/2021 03:19PM Acute Rounding Visit Height Blood Pressure 6 ft 1 in 126/60 mm[Hg] 12/23/2021 12:35PM Acute Rounding Visit Height Blood Pressure 6 ft 1 in 126/60 mm[Hg] 12/15/2021 01:19PM Acute Rounding Visit Height Blood Pressure 6 ft 1 in 134/78 mm[Hg] 11/30/2021 05:30PM Routine Rounding Visit Height Weight BMI Blood Pressure 6 ft 1 in 248 lbs 32.7 kg/m2 146/71 mm[Hg] 11/22/2021 03:09PM Acute Rounding Visit Height Blood Pressure 6 ft 1 in 154/70 mm[Hg] 11/19/2021 10:43AM Acute Rounding Visit Height Blood Pressure 6 ft 1 in 145/70 mm[Hg] 11/12/2021 11:52AM Acute Rounding Visit Height Blood Pressure 6 ft 1 in 128/70 mm[Hg] 11/03/2021 01:00PM Acute Rounding Visit Height Blood Pressure 6 ft 1 in 169/76 mm[Hg] 10/29/2021 04:24PM Admitting H&P Height Weight BMI Blood Pressure 6 ft 1 in 240.99 lbs 31.8 kg/m2 118/67 mm[Hg] 10/28/2021 02:23PM Acute Rounding Visit Height Blood Pressure 6 ft 1 in 138/78 mm[Hg] 10/27/2021 09:12AM Initial Intake Note Height Weight BMI Blood Pressure 6 ft 1 in 241 lbs 31.8 kg/m2 118/89 mm[Hg] 12/24/2019 03:21PM Acute Rounding Visit Blood Pressure 104/57 mm[Hg] 12/23/2019 10:41AM Acute Rounding Visit Blood Pressure 107/56 mm[Hg] 12/20/2019 07:43AM Telemed Admitting H&P Blood Pressure 102/55 mm[Hg] 12/18/2019 12:46PM Acute Rounding Visit Blood Pressure 130/60 mm[Hg] 12/17/2019 02:20PM Initial Intake Note Blood Pressure 130/58 mm[Hg]
--- OUTSIDE RECORDS SUMMARY | 2022-05-25 02:43 | XMS_ITS | Continuity of Care Document ---
:1970 Author Organization [facility] Address [address] [place] [id number]- Care Team Providers Name Role Phone Anastacio SHAFER, Afshan Castellanos Primary Care Physician Encounter [facility] Date(s): 01/11/22 - 01/17/[address] [address]- Encounter Diagnosis Shortness of breath at rest (Final) - 01/11/22 Discharge Disposition: A-D/C Home Attending Physician: Sandrita SHAFER, Naomy Admitting Physician: Fred Worthington MD Referring Physician: Not on Staff, Referring MD Allergies, Adverse Reactions, Alerts Substance Reaction Severity Status ketorolac hives Unknown Active Naprosyn rash Unknown Active penicillin1, 2, 3, 4 rash Unknown Active aspirin rash Unknown Active Compazine rash Unknown Active 1Tolerated extended course of pip/tazo during November 2020 [id number] tolerated ampicillin/sulbactam during 01/2020 [id number] has tolerated piperacillin/tazobactam (08/09/15), cephalexin (01/19/16) and [...] does not do flu shot Medications Ativan 2 mg oral tablet 1 tablet = 2 mg, By Mouth, 2 times a day, for 7 days, # 14 tablet, 0 Refills, Acute 01/24/22 9:42:00EDT, 01/17/22 9:42:00 EDT, Tablet, [facility], Partial fill upon patient request if the prescription is for a schedule II opioid drug.,... Start Date: 01/17/22 Stop Date: 01/24/22 Status: Orderedatorvastatin 40 mg oral tablet 1 tablet = 40 mg, By Mouth, Daily, # 30 tablet, 0 Refills, Maintenance, 01/17/22 9:39:00 EDT, Tablet, [facility], Partial fill upon patient request if the prescription is for a schedule II opioid drug., 182.88, cm, 01/16/22 23:00:00 EDT,... Start Date: 01/17/22 Stop Date: 02/16/22 Status: OrderedcloNIDine 0.2 mg oral tablet 0.2 mg, 1, tablet, By Mouth, 3 times a day, # 90 tablet, Refills 0, Tot. Refills 0, Maintenance, 01/17/22 9:39:00 EDT, Route to Pharmacy Electronically, [facility], Partial fill upon patient request if the prescription is for a schedule... Start Date: 01/17/22 Stop Date: 02/16/22 Status: Orderedgabapentin 300 mg oral capsule 600 mg, 2, capsule, By Mouth, 3 times a day, # 180 capsule, Refills 0, Tot. Refills 0, Maintenance, 01/17/22 9:39:00 EDT, Route to Pharmacy Electronically, [facility], Partial fill upon patient request if the prescription is for a schedu... Start Date: 01/17/22 Stop Date: 02/16/22 Status: Orderedgabapentin 300 mg oral capsule 600 mg, Capsule, By Mouth, 01/17/22 9:00:00 EDT Start Date: 01/17/22 Stop Date: 01/17/22 Status: Completedinsulin glargine 100 units/mL subcutaneous solution = 80 units, Subcutaneous Injection, Daily at bedtime, # 10 mL, 0 Refills, Maintenance, 01/17/22 9:40:00 EDT, Injection, [facility], Partial fill upon patient [...] 01/17/22 9:39:00 EDT, Route to Pharmacy Electronically, [facility], Partial fill upon patient request if the prescription is for a schedule I... Start Date: 01/17/22 Stop Date: 02/16/22 Status: Orderedmethadone 10 mg oral tablet See Instructions, 90 By Mouth Daily, 0 Refills, Maintenance, 09/30/21 8:46:00 EDT, Tablet, Partial fill upon patient request if the prescription is for a schedule II opioid drug. Start Date: 09/30/21 Status: Orderedmethadone 10 mg oral tablet 100 mg, Tablet, By Mouth, 01/17/22 9:00:00 EDT Start Date: 01/17/22 Stop Date: 01/17/22 Status: CompletedoxyCODONE 5 mg oral tablet 10 mg, 2, tablet, By Mouth, Every 6 hours, PRN, for 7 days, # 50 tablet, Refills 0, Tot. Refills 0, Acute 01/24/22 9:42:00 EDT, Pain , Moderate, 01/17/22 9:42:00 EDT, Route to Pharmacy Electronically, [facility], Partial fill upon patien... Start Date: 01/17/22 Stop Date: 01/24/22 Status: OrderedoxyCODONE 5 mg oral tablet 10 mg, Tablet, By Mouth, Every 6 hours, PRN for Pain , Moderate, Routine, 01/12/22 15:47:00 EDT Start Date: 01/12/22 Stop Date: 01/17/22 Status: DiscontinuedQUEtiapine 100 mg oral tablet 100 mg, 1, tablet, By Mouth, 2 times a day, # 60 tablet, Refills 0, Tot. Refills 0, Maintenance, 01/17/22 9:42:00 EDT, Route to Pharmacy Electronically, [facility], Partial fill upon patient request if the prescription is for a schedule... Start Date: 01/17/22 Stop Date: 02/16/22 Status: Ordered Problem List Condition Effective Dates [...] Exam Date Time Procedure Performing Provider Status 01/11/22 4:31 PM Knee 1 or 2 Views Left Faby Phillips; Sarahi (Ve rified) Notes:(Knee 1 or 2 Views Left) Reason For Exam: PainRESULT: Knee 1 or 2 Views Left Knee 1 or 2 Views Left, 2 views Reason: Pain; Clinical Question(s): Arthritis COMPARISON: 09/12/2017 FINDINGS: There is no evidence of acute or healing fracture, dislocation or bone lesion. There is mild narrowing of the medial joint compartment with widening of the lateral compartment. This is similar to the previous examination. No other arthritic changes are present. Trace amount of fluid in the suprapatellar bursa. IMPRESSION: Mild cartilage thinning in the medial compartment similar to the 2018 examination. No other arthritic process. Trace joint effusion. WSN: [id number] Ordering Physician: Dara Hess Dictated By: James Garcia MD Dictated Date/Time: 01/11/22 5:14 pm Reviewed By: James Garcia MD Signed By: James Garcia MD Signed Date/Time: 01/11/22 5:14 pm Transcribed By: HAKEEM Transcribed Date/Time: 01/11/22 5:11 pm Exam Date Time Procedure Performing Provider Status 01/11/22 2:17 AM Chest 2 Views Frontal and Lat Olivia Booker; Au th (Verified) Notes:(Chest 2 Views Frontal and Lat) Reason For Exam: Chest Pain;Other:RESULT: Chest 2 Views Frontal and Lat Chest 2 Views Frontal and Lat Hx of Present Illness: sob, chest tightness since sat, supposed to be 2L home O2 but doesnt have a tank. covid November 2020 with complications; Reason: Other:; Chest Pain; Clinical Question(s): Other: COMPARISON: 10/02/2021. FINDINGS: LINES AND TUBES: None. LUNGS AND PLEURA: Clear lungs. Normal pulmonary vascularity. No pleural effusion. No pneumothorax. HEART, MEDIASTINUM AND TAVO: Heart is normal in size. Normal upper mediastinal and hilar contour. BONES AND SOFT TISSUES: No acute abnormality. IMPRESSION: No acute abnormality. WSN: [id number] Ordering Physician: Maira Sanchez Dictated By: Willie Ortega MD, V Dictated Date/Time: 01/11/22 7:56 am Reviewed By: Willie Ortega MD, V Signed By: Willie Ortega MD, V Signed Date/Time: 01/11/22 7:56 am Transcribed By: HAKEEM Transcribed Date/Time: 01/11/22 7:55 am Vital Signs Most recent to oldest 1 2 3 [Reference Range]: Height 182.88 cm 182.88 cm 182.88 cm (01/16/22 11:00 PM) (01/16/22 8:21 PM) (01/16/22 3: 43 PM) Weight 124 kg 128.2 kg 124.5 kg (01/16/22 6:26 AM) (01/15/22 7:07 AM) (01/12/22 4:5 8 AM) Oxygen Saturation [94-100 %] 99 % 100 % 96 % (01/17/22 9:00 AM) (01/16/22 11:00 PM) (01/16/22 8: 21 PM) Pulse Rate [55-90 bpm] 78 bpm 71 bpm 61 bpm (01/17/22 9:00 AM) (01/16/22 11:00 PM) (01/16/22 8: 21 PM) Body Mass Index [18.5-24.99] 37.37 *>HHI* (01/11/22 12:00 PM) Blood Pressure [90-138/55-84 155/84 mm Hg 11/59 mm Hg 118 /64 mm Hg mm Hg] *H* *L* (01/16/22 8:21 PM ) (01/17/22 9:00 AM) (01/16/22 11:00 PM) Respiratory Rate [16-30 20 br/min 20 br/min 20 br/mi n br/min] (01/17/22 9:12 AM) (01/17/22 9:11 AM) (01/17/22 9:1 1 AM) Temperature [96.8-100.4 DegF] 98.4 DegF 97.9 DegF 97 .6 DegF (01/17/22 9:00 AM) (01/16/22 11:00 PM) (01/16/22 8: 21 PM) Liters per Minute 3 L/min 2 L/min 2 L/min (01/15/22 12:01 AM) (01/14/22 11:00 AM) (01/14/22 8 :00 AM) Mode of Delivery (Oxygen) Room air Room air Room a ir (01/17/22 9:00 AM) (01/16/22 11:00 PM) (01/16/22 8: 21 PM) Blood pressure sites Arm, right Arm, right Arm, right (01/17/22 9:00 AM) (01/16/22 11:00 PM) (01/16/22 8: 21 PM) Temperature Route Oral Oral Oral (01/17/22 9:00 AM) (01/16/22 11:00 PM) (01/16/22 8: 21 PM) Dry Weight 125 kg (01/11/22 12:00 PM) Weight Obtained Via Standing scale Bed scale Standing sca le (01/16/22 6:26 AM) (01/15/22 7:07 AM) (01/12/22 4:5 8 AM) Social History Social History Type Response Smoking Status Never (less than 100 in life time) entered on: 05/02/20 Sex
--- OUTSIDE RECORDS SUMMARY | 2022-05-25 02:43 | XMS_ITS | Continuity of Care Document ---
:1970 Author Organization [facility] Address [address] [place] [id number]- Care Team Providers Name Role Phone Anastacio SHAFER, Afshan Castellanos Primary Care Physician Encounter [facility] Date(s): 09/24/21 - 09/30/[address] [address]- Encounter Diagnosis Housing instability (Final) - 09/19/21 Housing instability (Final) - 09/19/21 Housing instability (Final) - 09/19/21 Discharge Disposition: A-D/C Home Attending Physician: Eleonora SHAFER, Judith Castrejon Admitting Physician: Marybel SHAFER, Kit Posada Referring Physician: Not on Staff, Referring MD Allergies, Adverse Reactions, Alerts Substance Reaction Severity Status ketorolac hives Unknown Active Naprosyn rash Unknown Active penicillin1, 2, 3, 4 rash Unknown Active aspirin rash Unknown Active Compazine rash Unknown Active 1Tolerated extended course of pip/tazo during November 2020 [id number] tolerated ampicillin/sulbactam during 01/2020 [id number] has tolerated piperacillin/tazobactam (08/09/15), cephalexin (01/19/16) and [...] want, does not do flu shot Medications Alcohol Pads See Instructions, # 600 each, Refills 2, Tot. Refills 2, Maintenance, use as directed for Type 1 Diabetes Mellitus, 09/30/21 16:22:00 EDT, Supply, 185, cm, 09/30/21 4:27:00 EDT, Height, 123.4, kg, 09/24/21 12:17:00 EDT, Dry Weight Start Date: 09/30/21 Stop Date: 06/27/22 Status: OrderedAtivan 1 mg oral tablet 1 tablet = 1 mg, By Mouth, 2 times a day, PRN as needed for anxiety, # 6 tablet, 0 Refills, Maintenance, 09/30/21 16:14:00 EDT, Tablet, [facility], Partial fill upon patient request if the prescription is for a schedule II opioid drug.,... Start Date: 09/30/21 Stop Date: 10/03/21 Status: Orderedatorvastatin 40 mg oral tablet 1 tablet = 40 mg, By Mouth, Daily, # 30 tablet, 0 Refills, Maintenance, 09/30/21 16:14:00 EDT, Tablet, [facility], Partial fill upon patient request if the prescription is for a schedule II opioid drug., 185, cm, 09/30/21 4:27:00 EDT, He... Start Date: 09/30/21 Status: OrderedcloNIDine 0.1 mg oral tablet 0.2 mg, 2, tablet, By Mouth, 3 times a day, # 42 tablet, Refills 0, Tot. Refills 0, Maintenance, 09/30/21 16:14:00 EDT, Route to Pharmacy Electronically, [facility], Partial fill upon patient request if the prescription is for a schedule... Start Date: 09/30/21 Stop Date: 10/07/21 Status: OrderedContour Next EZ Glucometer See Instructions, # 1 each, Maintenance, use as directed for Type 2 Diabetes Mellitus, 09/30/21 16:22:00 EDT, Supply, 185, cm, 09/30/21 4:27:00 EDT, Height, 123.4, kg, 09/24/21 12:17:00 EDT, Dry Weight Start Date: 09/30/21 Status: OrderedFreestyle Lancets See Instructions, # 200 each, Refills 5, Tot. Refills 5, Maintenance, use as directed for Type 2 Diabetes Mellitus, 09/30/21 16:22:00 EDT, Supply, 185, cm, 09/30/21 4:27:00 EDT, Height, 123.4, kg, 09/24/21 12:17:00 EDT, Dry Weight Start Date: 09/30/21 Stop Date: 03/29/22 Status: Orderedgabapentin 300 mg oral capsule 600 mg, Capsule, By Mouth, 09/30/21 15:00:00 EDT Start Date: 09/30/21 Stop Date: 09/30/21 Status: Completedgabapentin 300 mg oral capsule 600 mg, 2, capsule, By Mouth, 3 times a day, # 42 capsule, Refills 0, Tot. Refills 0, Maintenance, 09/30/21 16:14:00 EDT, Route to Pharmacy Electronically, [facility], Partial fill upon patient request if the prescription is for a schedu... Start Date: 09/30/21 Stop Date: 10/07/21 Status: Orderedinsulin glargine 100 units/mL subcutaneous solution 0.68 mL = 68 units, Subcutaneous Injection, Daily at bedtime, # 20.4 mL, 0 Refills, Maintenance, 09/30/21 16:15:00 EDT, Injection, [facility], Partial fill upon patient request [...] 0 Refills, Maintenance, 09/30/21 16:15:00 EDT, Injection, [facility], Partial fill upon patient request [...] 09/30/21 16:14:00 EDT, Route to Pharmacy Electronically, [facility], Partial fill upon patient request if the prescription is for a schedule... Start Date: 09/30/21 Status: Orderedmelatonin 3 mg oral tablet = 9 mg, By Mouth, Daily at bedtime, PRN Sleep, for 14 days, # 30 tablet, 0 Refills, Acute 10/14/21 8:46:00 EDT, 09/30/21 8:46:00 EDT, Tablet, Partial fill upon patient request if the prescription is for a schedule II opioid drug. Start Date: 09/30/21 Stop Date: 10/14/21 Status: Orderedmethadone 10 mg oral tablet See Instructions, 60 By Mouth Daily, 0 Refills, Maintenance, 09/30/21 8:46:00 EDT, Tablet, Partial fill upon patient request if the prescription is for a schedule II opioid drug. Start Date: 09/30/21 Status: OrderedPen [place], 30 G x 8 mm BD Ultra Fine II See Instructions, # 100 each, Refills 5, Tot. Refills 5, Maintenance, use as directed for Type 2 Diabetes Mellitus, 09/30/21 16:22:00 EDT, Supply, 185, cm, 09/30/21 4:27:00 EDT, Height, 123.4, kg, 09/24/21 12:17:00 EDT, Dry Weight Start Date: 09/30/21 Stop Date: 03/29/22 Status: OrderedQUEtiapine 100 mg oral tablet 100 mg, 1, tablet, By Mouth, 2 times a day, # 60 tablet, Refills 0, Tot. Refills 0, Maintenance, 09/19/21 15:48:00 EDT, Route to Pharmacy Electronically, [facility], 186, cm, 09/15/21 12:46:00 EDT, Height, 126, kg, 09/15/21 12:46:00 EDT,... Start Date: 09/19/21 Stop Date: 10/19/21 Status: Orderedthiamine 100 mg oral tablet 100 mg, 1, tablet, By Mouth, Daily, for 30 days, # 30 tablet, Refills 0, Tot. Refills 0, Acute 10/30/21 8:46:00 EDT, 09/30/21 8:46:00 EDT, Do Not Route, Partial fill upon patient request if the prescription is for a schedule II opioid drug. Start Date: 09/30/21 Stop Date: 10/30/21 Status: Orderedthiamine 100 mg oral tablet 100 mg, 1, tablet, By Mouth, Daily, for 30 days, # 30 tablet, Refills 0, Tot. Refills 0, Acute 11/29/21 8:46:00 EDT, 10/30/21 8:46:00 EDT, Route to Pharmacy Electronically, [facility], Partial fill upon patient request if the prescriptio... Start Date: 10/30/21 Stop Date: 11/29/21 Status: Ordered Problem List Condition Effective Dates [...] Exam Date Time Procedure Performing Provider Status 09/24/21 9:16 PM Chest Portable Rola Fernando (Verified) Notes:(Chest Portable) Reason For Exam: Shortness of BreathRESULT: Chest Portable Chest Portable Reason: Shortness of Breath; Clinical Question(s): Pulmonary Edema; Order Comment: Pt. does not knowwhy he needs an x-ray. Would like to speak with a doctor first. - 1845 COMPARISON: X-ray from 01/03/2021 FINDINGS: LINES AND TUBES: None. LUNGS AND PLEURA: There are faint interstitial changes in both lungs which are improved compared to the previous exam. No pleural effusion. No pneumothorax. HEART, MEDIASTINUM AND TAVO: Heart is normal in size. Normal upper mediastinal and hilar contour. BONES AND SOFT TISSUES: No acute abnormality. IMPRESSION: Pulmonary edema seen on the prior study is no longer apparent. No effusions or pneumonia. WSN: [id number] Ordering Physician: Bruce Chapman Dictated By: Timi SHAFER, Skyler Menard Dictated Date/Time: 09/24/21 9:43 pm Reviewed By: Skyler Capellan MD Signed By: Skyler Capellan MD Signed Date/Time: 09/24/21 9:43 pm Transcribed By: HAKEEM Transcribed Date/Time: 09/24/21 9:41 pm Vital Signs Most recent to oldest 1 2 3 [Reference Range]: Height 185 cm 185 cm 185 cm (09/30/21 4:27 AM) (09/29/21 11:31 PM) (09/29/21 6: 55 PM) Weight 123.4 kg (09/24/21 12:17 PM) Oxygen Saturation [94-100 %] 98 % 96 % 99 % (09/30/21 3:00 PM) (09/30/21 12:00 PM) (09/30/21 7: 00 AM) Pulse Rate [55-90 bpm] 84 bpm 101 bpm 81 bpm (09/30/21 3:00 PM) *H* (09/30/21 7:00 AM) (09/30/21 12:00 PM) Body Mass Index [18.5-24.99] 36.06 *>HHI* (09/24/21 12:17 PM) Blood Pressure [90-138/55-84 126/81 mm Hg 133/91 mm Hg 133 /77 mm Hg mm Hg] (09/30/21 3:00 PM) (09/30/21 12:00 PM) (09/30/21 7: 00 AM) Respiratory Rate [16-30 20 br/min 20 br/min 18 br/mi n br/min] (09/30/21 3:38 PM) (09/30/21 3:00 PM) (09/30/21 12: 00 PM) Temperature [96.8-100.4 97.8 DegF 98.6 DegF 98.2 Deg F DegF] (09/30/21 3:00 PM) (09/30/21 12:00 PM) (09/30/21 7: 00 AM) Liters per Minute 1 L/min 1 L/min 1 L/min (09/30/21 3:00 PM) (09/30/21 12:00 PM) (09/30/21 7: 00 AM) Mode of Delivery (Oxygen) Nasal cannula Nasal cannula Nasal cannula (09/30/21 3:00 PM) (09/30/21 12:00 PM) (09/30/21 7: 00 AM) Blood pressure sites Arm, left Arm, right Arm, left (09/30/21 3:00 PM) (09/30/21 12:00 PM) (09/30/21 7: 00 AM) Temperature Route Oral Oral Oral (09/30/21 3:00 PM) (09/30/21 12:00 PM) (09/30/21 7: 00 AM) Dry Weight 123.4 kg (09/24/21 12:17 PM) Weight Obtained Via Standing scale (09/24/21 12:17 PM) Social History Social History Type Response Smoking Status Never (less than 100 in life time) entered on: 05/02/20 Sex Male
--- OUTSIDE RECORDS SUMMARY | 2022-05-25 02:43 | XMS_ITS | Continuity of Care Document ---
:1970 Author Organization [facility] Address [address] [place] [address]- Care Team Providers Name Role Phone Quincy SHAFER, Lis Castellanos Primary Care Physician Encounter [facility] Date(s): 02/23/20 - 02/27/[address] [address]- [facility] Encounter Diagnosis Diabetic foot ulcers (Final) - 02/23/20 Discharge Disposition: A-D/C Home Attending Physician: Marie Hatfield MD Admitting Physician: Fortino Yu MD Referring Physician: Not on Staff, Referring MD Allergies, Adverse Reactions, Alerts Substance Reaction Severity Status penicillin1, 2, 3 rash Unknown Active aspirin rash Unknown Active ketorolac hives Unknown Active Naprosyn rash Unknown Active Compazine rash Unknown Active 1Has tolerated ampicillin/sulbactam during 01/2020 [id number] has tolerated piperacillin/tazobactam (08/09/15), cephalexin (01/19/16) and [...] 02/27/20 14:21:00 EDT Start Date: 02/27/20 Status: Orderedapixaban 5 mg oral tablet 1 tablet = 5 mg, By Mouth, 2 times a day, # 60 tablet, 0 Refills, Maintenance, 02/27/20 15:29:00 EDT, Tablet, [facility], 185, cm, 02/27/20 12:10:00 EDT, Height, 100, kg, 02/18/20 17:29:00 EDT, Dry Weight Start Date: 02/27/20 Stop Date: 03/28/20 Status: Orderedatorvastatin 10 mg oral tablet 1 tablet = 10 mg, By Mouth, Daily, # 30 tablet, 0 Refills, Maintenance, 02/14/20 11:32:00 EDT, Tablet, [facility], 186, cm, 02/14/20 11:26:00 EDT, [...] 0 Refills, Maintenance, 02/07/20 15:04:00 EDT, Injection, [facility], 150 - 199 2 units; 200 [...] 0 Refills, Maintenance, 11/12/19 11:53:00 EDT, Capsule, [facility], 1 capsule By Mouth Daily,x30 days, 184, cm, 11/11/19 20:33:00 EDT, Height, 100, kg, 11/07/19 9:02:00 EDT, Dry Weight Start Date: 11/12/19 Stop Date: 12/12/19 Status: OrderedPen [place], 31 G x 8 mm BD Ultra [...] 02/14/20 11:33:00 EDT, Route to Pharmacy Electronically, [facility], 186, cm, 02/14/20 [...] Orders for Microbiology Reports Name Date Wound Deep Culture w/ Gram Smear 02/23/20 Microbiology Reports TEST:Deep Wound Culture STATUS:Auth (Verified) BODY SITE: SOURCE:SWAB1 COLLECTED DATE/TIME:02/23/20 2:31 PMDeep Wound Culture SPECIMEN DESCRIPTION : SWAB PUS FOOT RT SPECIAL REQUESTS : NONE GRAM STAIN : 1+ POLYMORPHONUCLEAR LEUKOCYTES NO ORGANISMS SEEN CULTURE : 2+ STAPHYLOCOCCUS AUREUS, METHICILLIN RESISTANT. METHICILLIN RESISTANT STAPH AUREUS SHOULD BE CONSIDERED CLINICALLY RESISTANT TO ALL BETA-LACTAMS. REPORT STATUS : FINAL 02/25/2020 ORGANISM 2+ STAPHYLOCOCCUS AUREUS, METHICILLIN RESISTANT. METHICILLIN RESISTANT STAPH AUREUS SHOULD BE CONSIDERED CLINICALLY RESISTANT TO ALL BETA-LACTAMS. METHOD MIN. INHIB. CONC. (MCG/ML) CIPROFLOXACIN SUSCEPTIBLE CLINDAMYCIN RESISTANT ERYTHROMYCIN RESISTANT LEVOFLOXACIN SUSCEPTIBLE LINEZOLID SUSCEPTIBLE OXACILLIN RESISTANT RIFAMPIN SUSCEPTIBLE RIFAMPIN RIFAMPIN SHOULD NOT BE USED ALONE FOR ANTIMICROBIAL RIFAMPIN THERAPY. TETRACYCLINE RESISTANT TRIMETH/SULFAMETHOX SUSCEPTIBLE VANCOMYCIN SUSCEPTIBLERadiology Reports Exam Date Time Procedure Performing Provider Status 02/23/20 8:11 AM Foot Min 3 Views Left Zebian , Swapna; Auth (Arthur ified) Notes:(Foot Min 3 Views Left) Reason For Exam: InfectionRESULT: Foot Min 3 Views Left Foot Min 3 Views Left, 3 views Hx of Present Illness: pt states he was seen at [facility] yesterday for rright lower extremity redness and foot pain and states the pain is getting worse; Reason: Infection; Clinical Question(s): Osteomyelitis COMPARISON: 01/30/2020 FINDINGS: Partial resorption of fourth and fifth metatarsals with sclerotic margins, unchanged. Orthopedic screws in the mid and hindfoot and stable in the first metatarsal. No focal osteomyelitis is appreciated. Mild osteoarthrosis at the ankle. Skin thickening over the forefoot bilaterally. IMPRESSION: No osteomyelitis is appreciated. WSN: [id number] Ordering Physician: Azra Donnelly Dictated By: Marti Calderon MD Dictated Date/Time: 02/23/20 8:55 am Reviewed By: Marti Calderon MD Signed By: Marti Calderon MD Signed Date/Time: 02/23/20 8:55 am Transcribed By: HAKEEM Transcribed Date/Time: 02/23/20 8:53 am Exam Date Time Procedure Performing Provider Status 02/23/20 8:11 AM Foot Min 3 Views Right Zebian , Swapna; Auth (Ve rified) Notes:(Foot Min 3 Views Right) Reason For Exam: InfectionRESULT: Foot Min 3 Views Right Foot Min 3 Views Right, 3 views Hx of Present Illness: pt states he was seen at [facility] yesterday for rright lower extremity redness and foot pain and states the pain is getting worse; Reason: Infection; Clinical Question(s): Osteomyelitis COMPARISON: 01/30/2020 FINDINGS: Indication of the forefoot. Unchanged appearance of the resection margin of the metatarsals. Satisfactory mineralization of the bones of the mid and hindfoot. No change compared to prior from 01/30/2020. No arthritic changes. Surgical clips in the soft tissues at the amputation site with increased soft tissue density, similar to prior. IMPRESSION: No findings of osteomyelitis are appreciated. WSN: [id number] Ordering Physician: Azra Donnelly Dictated By: Marti Calderon MD Dictated Date/Time: 02/23/20 8:52 am Reviewed By: Marti Calderon MD Signed By: Marti Calderon MD Signed Date/Time: 02/23/20 8:52 am Transcribed By: HAKEEM Transcribed Date/Time: 02/23/20 8:50 am Exam Date Time Procedure Performing Provider Status 02/23/20 8:11 AM Ankle Min 3 Views Right Swapna Fay; Auth (V erified) Notes:(Ankle Min 3 Views Right) Reason For Exam: InfectionRESULT: Ankle Min 3 Views Right Ankle Min 3 Views Right Hx of Present Illness: pt states he was seen at [facility] yesterday for rright lower extremity redness and foot pain and states the pain is getting worse; Reason: Infection; Clinical Question(s): Osteomyelitis. COMPARISON: 01/30/2020 FINDINGS: Patient has undergone amputation of the forefoot. Normal mineralization of remaining bones. Intact ankle mortise and talar dome. No arthritic changes. Normal soft tissues. IMPRESSION: No radiographic features of osteomyelitis. WSN: [id number] Ordering Physician: Azra Donnelly Dictated By: Marti Calderon MD Dictated Date/Time: 02/23/20 8:50 am Reviewed By: Marti Calderon MD Signed By: Marti Calderon MD Signed Date/Time: 02/23/20 8:50 am Transcribed By: HAKEEM Transcribed Date/Time: 02/23/20 8:49 am Vital Signs Most recent to oldest 1 2 3 4 [Reference Range]: Height 185 cm 185 cm 185 cm (02/27/20 12:10 PM) (02/27/20 8:32 AM) (02/27/20 5:24 AM) Weight 101.5 kg (02/24/20 6:35 AM) Oxygen Saturation 100 % 100 % 100 % [94-100 %] (02/27/20 12:10 PM) (02/27/20 8:32 AM) (02/27/20 5:24 AM) Pulse Rate [55-90 bpm] 60 bpm 66 bpm 65 bpm (02/27/20 12:10 PM) (02/27/20 8:32 AM) (02/27/20 5:24 AM) Body Mass Index 29.66 [18.5-24.99] *H* (02/24/20 6:35 AM) Blood Pressure 116/68 mm Hg 136/78 mm Hg 136/78 mm Hg [90-138/55-84 mm Hg] (02/27/20 12:10 PM) (02/27/20 9:43 AM) (02/27/20 8:32 AM) Respiratory Rate [16-30 17 br/min 18 br/min 18 br/min 18 b r/min br/min] (02/27/20 12:10 PM) (02/27/20 10:44 AM) (02/27/20 10:43 A M) (02/27/20 10:43 AM) Temperature [96.8-100.4 98.2 DegF 97.7 DegF 97.7 DegF DegF] (02/27/20 12:10 PM) (02/27/20 8:32 AM) (02/27/20 5:24 AM) Mode of Delivery Room air Room air Room air (Oxygen) (02/27/20 12:10 PM) (02/27/20 8:32 AM) (02/27/20 5:24 AM) Blood pressure sites Arm, left Arm, left Arm, left (02/27/20 12:10 PM) (02/27/20 8:32 AM) (02/27/20 5:24 AM) Temperature Route Oral Oral Oral (02/27/20 12:10 PM) (02/27/20 8:32 AM) (02/27/20 5:24 AM) Weight Obtained Via Bed scale (02/24/20 6:35 AM) Social History Social History Type Response Smoking Status Never smoker; Tobacco user i n household: No entered on: 11/28/17 Sex Male
--- NOTE | 2022-05-25 03:22 | PC.NURSE ---
Addendum entered by Na Barone RN 05/25/22 03:24: Vancomycin administration delayed due to no IV access. Documented against medication in the MAR. Original Note: Pt is a difficult stick. Dr Ramires and Dr Wilson attempted several ultrasound IV's without success. Hospitalist came down to see the pt and stated we can waituntil the morning when radiology is here and they can try. For now, pt has been given water to drink and regular medications as ordered.
[2022-05-25] MEDS: QUEtiapine Fumarate 100 MG TABLET PO ×3 (03:44→20:26)
[2022-05-25] MEDS: Gabapentin 600 MG TABLET PO ×4 (03:44→20:26)
[2022-05-25] MEDS: levoFLOXacin 750 MG TABLET PO (03:44)
[2022-05-25 05:59] VITALS: BP 126/88; PULSE 67; RESP 16; TEMP 36.6; O2SAT 96
--- NOTE | 2022-05-25 07:30 | PHA.MEDREC ---
Pharmacy Consult ? Medication Reconciliation Pharmacy has completed the medication reconciliation. Pt recently discharged, reviewed med rec done by nursing
[2022-05-25 07:40] LABS: Glucose, Whole Blood 118 mg/dL (60-115)
--- NOTE | 2022-05-25 07:55 | PC.NURSE ---
pt received in bed, arousable to voice, alert. Repory given to Connie Rubio RN, in overflow area. Pt admitted for eval of IV access, may go to IR
[2022-05-25 11:17] VITALS: BP 166/85; PULSE 68; RESP 18; TEMP 36.2; O2SAT 100
[2022-05-25 11:20] LABS: Alanine Aminotransferase 58 U/L (0-40); Albumin Level 3.6 g/dL (3.5-5.0); Alkaline Phosphatase 359 U/L (39-117); Anion Gap 15 (12-20); Aspartate Amino Transferase 74 U/L (5-37); Bilirubin Total 0.9 mg/dL (0.0-1.0); Blood Urea Nitrogen 19 mg/dL (9-16); C Reactive Protein 4.36 mg/dL (< or = 0.50); Calcium 8.8 mg/dL (8.4-10.2); Carbon Dioxide 20 mmol/L (22-29); Chloride 108 mmol/L (96-108); Creatinine Clr Calc Pharmacy 152.9; Estimated Glomerular Filt Rate > 60; Glucose Random 174 mg/dL (60-115); Potassium 5.1 mmol/L (3.3-5.1); Sodium 138 mmol/L (135-145); Total Protein 7.2 g/dL (6.5-8.0)
[2022-05-25 11:29] LABS: Glucose, Whole Blood 130 mg/dL (60-115)
[2022-05-25] MEDS: amLODIPine Besylate 5 MG TABLET PO (12:00)
[2022-05-25] MEDS: Furosemide 40 MG TABLET PO ×2 (12:01→16:44)
[2022-05-25] MEDS: cloNIDine HCL 0.2 MG TABLET PO ×3 (12:01→20:26)
[2022-05-25] MEDS: Linezolid 600 MG TABLET PO ×2 (12:01→22:36)
--- NOTE | 2022-05-25 13:11 | W.PM.IDCN ---
History of Present Illness Data of Consult Service Date: 05/25/22 Requesting physician: Espinoza Pa Primary Care Provider: None Physician HPI Reason for consult: foot ulcers,draining He comes in since ran out of oxygen and has reported worsening foot ulcers. I had seen him earlier and recommended IV Vancomycin and po Levaquin for six weeks and patient declines IV and is taking po Levaquin alone and says it is doing nothing to close wound. He reports bloody drainage on his sock and yellow drainage from open wound. He has no fever or chills. He has not gone to Wound Clinic. Review of Systems Review of Systems: Yes all other systems are reviewed and are negative PMFSH Past Medical History Medical History Compartment syndrome of left lower extremity Diabetes HTN (hypertension) Post-COVID chronic dyspnea Ulcer of left foot Family History Family History Other No pertinent family history Family history: reviewed and not pertinent Surgical History Surgical History Status post transmetatarsal amputation of right foot Social History Social History Household Members: None Housing: Apartment Housing Other:: reports no place to live Do you presently have visiting nurse or other home services: No Alcohol intake: never Patient Tobacco Use Status: Never used Tobacco e-Cigarette/Vaping Use: Never Used service: No Current occupational status: disabled Meds Allergies Allergy/AdvReac Type Severity Reaction Status Date / Time prochlorperazine Allergy Intermediate Hives Verified 03/22/22 10:13 [From Compazine] aspirin [ASA] Allergy Unknown HIVES Unverified 02/20/20 16:18 naproxen [From NAPROSYN] Allergy Unknown HIVES Unverified 02/20/20 16:18 NSAIDS (Non-Steroidal Allergy Unknown HIVES Unverified 02/20/20 16:18 Anti-Inflamma [NSAIDS (NON-STEROIDAL ANTI-INFLAMMA] Penicillins [PENICILLINS] Allergy Unknown HIVES Unverified 02/20/20 16:18 Active Medications: Current Medications Amlodipine Besylate (Amlodipine Besylate 5 Mg Tablet) 5 mg PO DAILY [facility]ICHARD; Protocol Last Admin: 05/25/22 12:00 Dose: 5 mg Atorvastatin Calcium (Atorvastatin Calcium 40 Mg Tablet) 40 mg PO BEDTIME [facility] Clonazepam (Clonazepam 1 Mg Tablet) 1 mg PO BID PRN PRN Reason: anxiety Last Admin: 05/25/22 12:04 Dose: 1 mg Clonidine HCl (Clonidine Hcl 0.2 Mg Tablet) 0.2 mg PO TID [facility]; Protocol Last Admin: 05/25/22 12:01 Dose: 0.2 mg Dextrose (Dextrose 50 % 25 Gm/50 Ml Syringe) 25 gm IVPUSH Q15M PRN; Protocol PRN Reason: per Hypoglycemia Standing Ord. Enoxaparin Sodium (Enoxaparin Sodium 40 Mg/0.4 Ml Syringe) 40 mg SUBCUT Q24H [facility] Last Admin: 05/25/22 12:01 Dose: Not Given Furosemide (Furosemide 40 Mg Tablet) 40 mg PO BIDWM [facility]; Protocol Last Admin: 05/25/22 12:01 Dose: 40 mg Gabapentin (Gabapentin 600 Mg Tablet) 600 mg PO TID [facility] Last Admin: 05/25/22 12:01 Dose: 600 mg Glucose (Glucose Gel 15 Gm Gel..Gram.) 15 gm PO Q15M PRN; Protocol PRN Reason: per Hypoglycemia Standing Ord. Insulin Glargine (Insulin Glargine,Hum.Rec.Anlog 100 Unit/Ml 10 Ml Vial) 60 unit SUBCUT BEDTIME [facility] Insulin Human Lispro (Insulin Lispro 100 Unit/Ml 3 Ml Vial) 0 unit SUBCUT QIDACHS [facility]; Protocol Last Admin: 05/25/22 11:54 Dose: Not Given Insulin Human Lispro (Insulin Lispro 100 Unit/Ml 3 Ml Vial) 5 unit SUBCUT TIDAC [facility] Last Admin: 05/25/22 12:02 Dose: Not Given Levofloxacin (Levofloxacin 750 Mg Tablet) 750 mg PO Q24H [facility] Last Admin: 05/25/22 03:44 Dose: 750 mg Linezolid (Linezolid 600 Mg Tablet) 600 mg PO Q12H [facility] Last Admin: 05/25/22 12:01 Dose: 600 mg Methadone HCl (Methadone Hcl 20 Mg/2 Ml Oral.Conc) 85 mg PO DAILY [facility] Quetiapine Fumarate (Quetiapine Fumarate 100 Mg Tablet) 100 mg PO BID [facility] Last Admin: 05/25/22 12:00 Dose: 100 mg Sodium Chloride (0.9 % Sodium Chloride Flush 3 Ml Syringe) 3 ml IVFLUSH QSHIFT [facility] Last Admin: 05/25/22 12:01 Dose: Not Given Home Medications Medication Instructions Recorded Confirmed Last Taken Type clonazepam 1 mg tablet 1 tab PO BID PRN anxiety 03/16/22 05/25/22 05/22/22 History furosemide 40 mg tablet 1 tab PO BID 03/16/22 05/25/22 05/22/22 History gabapentin 600 mg tablet 1 tab PO TID 03/16/22 05/25/22 05/22/22 History insulin glargine 100 unit/mL (3 120 unit subcut BEDTIME 03/16/22 05/25/22 05/22/22 History mL) subcutaneous pen (Lantus Solostar U-100 Insulin) insulin lispro 100 unit/mL 15 unit subcut TID 03/16/22 05/25/22 05/22/22 History subcutaneous pen quetiapine 100 mg tablet 1 tab PO BID 03/16/22 05/25/22 05/22/22 History methadone 10 mg/mL oral 140 mg PO DAILY 04/25/22 05/25/22 05/22/22 History concentrate (Methadone Intensol) Physical Exam Vital Signs: Vital Signs: Last Vital Signs Temp 97.2 F 05/25/22 11:17 Pulse 68 05/25/22 11:17 Resp 18 05/25/22 11:17 BP 166/85 H 05/25/22 11:17 Pulse Ox 100 05/25/22 11:17 O2 Del Method 05/25/22 11:17 O2 Flow Rate 2 05/25/22 11:17 BMI result Body Mass Index 34.2 Const: General: cooperative HEENT: Head: Yes normal to inspection Face and sinus: Yes normal facial exam Mouth: Normal oral and palatal mucosa present Teeth and gingiva: dentition normal Eyes: General: appearance normal, both eyes and all related structures Pupils: Equal, round and reactive pupils present Resp: Effort & Inspection: normal respiratory effort Cardio: Rate: regular rate Rhythm: regular rhythm GI: Palpation (GI): Soft to palpation and nontender : General: Yes no CVA tenderness Back/Spine/Pelvis: Back: no CVA tenderness Skin: General skin exam: no rashes or lesions noted Neuro: General: moves all extremities Cranial nerves: Yes Equal, round and reactive pupils present Extrem: Other: two areas plantar right foot 1 cm rounded and open,no cellulitis or purulence one area lateral left foot eschar open area no cellulitis or purulence General: Yes normal to inspection Ankle/foot/toe images: 1. open ulcer 2. clean transmet 3. open ulcer 4. open ulcer Psych: Appearance: grossly normal Results Labs CBC & Chem 7: 05/24/22 Unknown Labs: BMP 05/24/22 Unknown Sodium 138 Potassium 5.1 D Chloride 108 Carbon Dioxide 20 L BUN 19 H Creatinine 0.76 Calcium 8.8 Liver Function 05/24/22 Range/Units Unknown Total Bilirubin 0.9 (0.0-1.0) mg/dL AST 74 H (5-37) U/L ALT 58 H (0-40) U/L Alkaline Phosphatase 359 H (39-117) U/L Albumin 3.6 (3.5-5.0) g/dL Assessment and Plan (1) Ulcer of left foot: Status: Acute (2) Diabetic ulcer of right foot: Status: Acute Ulcers right and left foot look better than last visit,but he is walking on ulcers with minimal wrapping so will break down Patient is not willing to take IV antibiotics reliably. Plan Finish six weeks po Levaquin and linezolid. See Wound Clinic outpatient Time Spent With Patient Time: Total time managing care of this patient today ____ minutes.
--- NOTE | 2022-05-25 13:17 | MHC.CM.PN ---
CM ATTEMPTED TO MEET W/PT AT 0900 AND PT HAD NOT ARRIVED TO [facility], CM ATTEMPTED TO MEET W/PT AT TIME OF THIS PT AND PT HAD ARRIVED TO [facility] HOWEVER WAS OFF UNIT, CM TO REVISIT. PER PREVIOUS ADMISSION NOTES, PT LEFT AMA ON 05/18, PT HAS BEEN BANNED FROM [facility], REFERRAL WILL BE PLACED TO [facility] AND CM WILL CONTACT [facility] THEY HAD CALLED BACK OFFERING PT A BED LAST WEEK.
--- NOTE | 2022-05-25 14:28 | P.PICC_ITS ---
PICC Line Insertion NPICC Diagnosis: Osteomyelitis of right foot Indication: terminal computer operator antibiotics Pertinent Labs: reviewed Technique: Following informed consent including risks, benefits and alternatives and using sterile technique including cap and mask, sterile gown, glove and drape, the right arm was prepped and draped in the usual sterile fashion of full barrier technique with CHG. Following completion of [place] [employer] Protocol the skin and soft tissues were anesthetized with 1% Lidocaine plain. Using ultrasound guidance, right brachial vein access was obtained. Over an 0.018 wire through peel-away sheath, a 4 [place]i single lumen PASV PICC line was positioned in a single attempt by this RN. Catheter length is 45 cm internal length, 0 cm exte rnal length, for a total trimmed length of 45 cm. The procedure was performed in S272. Tip verification was performed by Dominic Jacome with Yris 3CG. Tip located in SVC. Ultrasound was used to document vein patency and for needle entry. A formal ultrasound picture and cardiac rhythm strip was recorded. Vascular [employer] Harvest Machine Operator has released the line for use and it is currently dressed with a StatLock, Tegaderm, and CHG disc. Verification has been performed for blood return and line patency. Arm Circumference: 35 cm Equipment: Weiju Solo Catheter Type: 4 [place] Single Lumen PASV PICC Lot #: [id number]
[2022-05-25 15:17] LABS: Lactic Acid 1.4 mmol/L (0.5-2.0)
[2022-05-25 15:18] VITALS: BP 111/59; PULSE 75; RESP 18; TEMP 36.2; O2SAT 98
--- NOTE | 2022-05-25 16:14 | MHC.RECOVRN ---
Met with pt in 367 after consult placed to Addiction Medicine for methadone reinitiation. . During last admission, pt had been titrated to 85 mg with a plan to continue at [facility] after dc to home/SNF. Pts last dose for that admission was on 05/18. When pt represented to ED overnight, pt had been ordered and received 85 mg this morning (05/25) at 0229. Upon entering pts room, pt laying in bed, eyes closed, asleep. Pt wakes to loud voice, unable to open eyes. Pt is able to minimally engage due to somnolence. Pt informed t/w that he did not connect with [facility] after self directed discharge. Pt reports he used a few bags of heroin over the weekend and had bought methadone and took 100 mg on 05/22, 05/23, and 05/24. Pt falls back to sleep and unable to continue conversation. Discussed with Faye Chavira APRN.
[2022-05-25 16:18] LABS: Glucose, Whole Blood 319 mg/dL (60-115)
--- NOTE | 2022-05-25 16:31 | P.EN_ITS ---
Event Note Date of Service: 05/25/22 Event Note: Addiction consult: Patient known to this senior copywriter and ACS. Presented to [facility] ED on 05/24 following recently lengthy admission, where patient self initiated discharge on 05/18. At time of discharge, patient was receiving methadone 85mg QD. Last dose was 05/18/22. Per chart review patient received methadone 85mg early AM on 05/25/22. ACS RN checked in with patient later this afternoon following consult request. Patient reportedly unable to fully participate in interview due to sedation and drowsiness. Patient did report that he did not follow up with [facility] in the community for continuation of methadone and reports he was buying methadone on the street. Plan: -Given number of days since last verified dose of methadone (7) and level of patient sedation greater than 12 hours after methadone administered here, dose of methadone to be reduced -methadone 40mg QD to start in the AM and titrate as appropriate. -will eval patient in AM Time Spent With Patient Time: Total time managing care of this patient today ____ minutes.
[2022-05-25 16:42] VITALS: BP 120/70
[2022-05-25] MEDS: 0.9 % Sodium Chloride Flush 3 ML SYRINGE IVFLUSH ×2 (16:43→20:31)
[2022-05-25] MEDS: Insulin Lispro 100 UNIT/ML 3 ML VIAL SUBCUT ×3 (16:43→20:26)
[2022-05-25 20:01] LABS: Glucose, Whole Blood 270 mg/dL (60-115)
[2022-05-25 20:26] VITALS: BP 169/83; PULSE 96; RESP 18; TEMP 36.4; O2SAT 99
[2022-05-25] MEDS: Atorvastatin Calcium 40 MG TABLET PO (20:26)
[2022-05-25] MEDS: Insulin Glargine,Hum.rec.anlog 100 UNIT/ML 10 ML VIAL 60 UNIT SUBCUT (20:27)
[2022-05-26] MEDS: clonazePAM 1 MG TABLET PO ×2 (01:59→13:04)
[2022-05-26] MEDS: levoFLOXacin 750 MG TABLET PO (01:59)
[2022-05-26 04:00] VITALS: BP 129/75; PULSE 82; RESP 17; TEMP 36.3; O2SAT 96
[2022-05-26 06:53] VITALS: BP 158/80; PULSE 85; RESP 18; TEMP 37; O2SAT 100
[2022-05-26 07:10] LABS: Glucose, Whole Blood 235 mg/dL (60-115)
[2022-05-26] MEDS: Insulin Lispro 100 UNIT/ML 3 ML VIAL SUBCUT ×6 (08:17→21:14)
[2022-05-26] MEDS: 0.9 % Sodium Chloride Flush 3 ML SYRINGE IVFLUSH (08:18)
[2022-05-26] MEDS: methADONE HCl 20 MG/2 ML ORAL.CONC 40 MG PO (08:21)
[2022-05-26] MEDS: amLODIPine Besylate 5 MG TABLET PO (08:22)
[2022-05-26] MEDS: Furosemide 40 MG TABLET PO (08:22)
[2022-05-26] MEDS: Gabapentin 600 MG TABLET PO ×3 (08:22→21:14)
[2022-05-26] MEDS: cloNIDine HCL 0.2 MG TABLET PO ×3 (08:22→21:14)
[2022-05-26] MEDS: QUEtiapine Fumarate 100 MG TABLET PO ×2 (08:22→21:15)
--- NOTE | 2022-05-26 10:54 | HO.PM.IMPN ---
Subjective Subjective Date of Service: 05/26/22 Interval History: cc: non healing dfu interval history:foot pain Respiratory Respiratory: Reports no additional respiratory complaints Gastrointestinal Gastrointestinal: Reports no additional gastrointestinal complaints Physical Exam Vital Signs: Vital Signs: Last Vital Signs Temp 98.6 F 05/26/22 06:53 Pulse 85 05/26/22 06:53 Resp 18 05/26/22 06:53 BP 158/80 H 05/26/22 06:53 Pulse Ox 100 05/26/22 06:53 O2 Del Method 05/26/22 06:53 O2 Flow Rate 2 05/26/22 06:53 BMI result Body Mass Index 34.2 Const: General: cooperative HEENT: Head: Yes normal to inspection Face and sinus: Yes normal facial exam Mouth: Normal oral and palatal mucosa present Teeth and gingiva: dentition normal Eyes: General: appearance normal, both eyes and all related structures Pupils: Equal, round and reactive pupils present Resp: Effort & Inspection: normal respiratory effort Cardio: Rate: regular rate Rhythm: regular rhythm GI: Palpation (GI): Soft to palpation and nontender : General: Yes no CVA tenderness Back/Spine/Pelvis: Back: no CVA tenderness Skin: General skin exam: no rashes or lesions noted Neuro: General: moves all extremities Cranial nerves: Yes Equal, round and reactive pupils present Extrem: Other: two areas plantar right foot 1 cm rounded and open,no cellulitis or purulence one area lateral left foot eschar open area no cellulitis or purulence General: Yes normal to inspection Psych: Appearance: grossly normal Objective Data Active Medications Amlodipine Besylate (Amlodipine Besylate 5 Mg Tablet) 5 mg PO DAILY [facility]; Protocol Last Admin: 05/26/22 08:22 Dose: 5 mg Documented By: EMMIE Atorvastatin Calcium (Atorvastatin Calcium 40 Mg Tablet) 40 mg PO BEDTIME [facility] Last Admin: 05/25/22 20:26 Dose: 40 mg Documented By: KAYLA Clonazepam (Clonazepam 1 Mg Tablet) 1 mg PO BID PRN PRN Reason: anxiety Last Admin: 05/26/22 01:59 Dose: 1 mg Documented By: KAYLA Clonidine HCl (Clonidine Hcl 0.2 Mg Tablet) 0.2 mg PO TID [facility]; Protocol Last Admin: 05/26/22 08:22 Dose: 0.2 mg Documented By: EMMIE Dextrose (Dextrose 50 % 25 Gm/50 Ml Syringe) 25 gm IVPUSH Q15M PRN; Protocol PRN Reason: per Hypoglycemia Standing Ord. Enoxaparin Sodium (Enoxaparin Sodium 40 Mg/0.4 Ml Syringe) 40 mg SUBCUT Q24H [facility] Last Admin: 05/26/22 08:22 Dose: Not Given Documented By: EMMIE Non-Admin Reason: Patient Refused Furosemide (Furosemide 40 Mg Tablet) 40 mg PO BIDWM [facility]; Protocol Last Admin: 05/26/22 08:22 Dose: 40 mg Documented By: EMMIE Gabapentin (Gabapentin 600 Mg Tablet) 600 mg PO TID [facility] Last Admin: 05/26/22 08:22 Dose: 600 mg Documented By: EMMIE Glucose (Glucose Gel 15 Gm Gel..Gram.) 15 gm PO Q15M PRN; Protocol PRN Reason: per Hypoglycemia Standing Ord. Insulin Glargine (Insulin Glargine,Hum.Rec.Anlog 100 Unit/Ml 10 Ml Vial) 60 unit SUBCUT BEDTIME [facility] Last Admin: 05/25/22 20:27 Dose: 60 unit Documented By: KAYLA Insulin Human Lispro (Insulin Lispro 100 Unit/Ml 3 Ml Vial) 0 unit SUBCUT QIDACHS [facility]; Protocol Last Admin: 05/26/22 08:17 Dose: 4 unit Documented By: EMMIE Insulin Human Lispro (Insulin Lispro 100 Unit/Ml 3 Ml Vial) 5 unit SUBCUT TIDAC [facility] Last Admin: 05/26/22 08:17 Dose: 5 unit Documented By: EMMIE Levofloxacin (Levofloxacin 750 Mg Tablet) 750 mg PO Q24H [facility] Last Admin: 05/26/22 01:59 Dose: 750 mg Documented By: KAYLA Linezolid (Linezolid 600 Mg Tablet) 600 mg PO Q12H [facility] Last Admin: 05/25/22 22:36 Dose: 600 mg Documented By: KAYLA Methadone HCl (Methadone Hcl 20 Mg/2 Ml Oral.Conc) 40 mg PO DAILY [facility] Last Admin: 05/26/22 08:21 Dose: 40 mg Documented By: EMMIE Quetiapine Fumarate (Quetiapine Fumarate 100 Mg Tablet) 100 mg PO BID [facility] Last Admin: 05/26/22 08:22 Dose: 100 mg Documented By: EMMIE Sodium Chloride (0.9 % Sodium Chloride Flush 3 Ml Syringe) 3 ml IVFLUSH QSHIFT [facility] Last Admin: 05/26/22 08:18 Dose: 3 ml Documented By: EMMIE Labs CBC & Chem 7: 05/24/22 Unknown Labs: Laboratory Results - last 24 hr 05/24/22 05/25/22 05/25/22 Unknown 11:16 14:42 Anion Gap 15 Estim Creat Clear Calc 152.9 Estimated GFR > 60 POC Glucose 130 H Random Glucose 174 H Lactic Acid 1.4 Calcium 8.8 Total Bilirubin 0.9 AST 74 H ALT 58 H Alkaline Phosphatase 359 H C-Reactive Protein 4.36 H Total Protein 7.2 Albumin 3.6 05/25/22 05/25/22 05/26/22 15:42 19:51 06:54 Anion Gap Estim Creat Clear Calc Estimated GFR POC Glucose 319 H 270 H 235 H Random Glucose Lactic Acid Calcium Total Bilirubin AST ALT Alkaline Phosphatase C-Reactive Protein Total Protein Albumin Assessment and Plan (1) HTN (hypertension): Status: Acute Plan 51M pmh obesity, opiate dependence, htn, DM, chronic hypoxic respiratory failure, PVD, hld, anxiety, presented with bilateral DFU with oozing bilateral lower extremity ulcers due to DM and PVD partially treated ID appreciated, now with picc, will restart vanc (dc zyvox), continue levaquin 6 weeks (end jun 07, 2022) opiate dependence with withdrawal methadone DM basal bolus insulin with correction, monitor poc chronic hypoxic respiratory failure on 2L home o2 out of o2 at home obesity weight loss htn amlodipine, clonidine mood disorder seroquel hld statin dvt prophylaxis - lovenox reason for continued hospitalization:awaiting placement Time Spent With Patient Time: Total time managing care of this patient today ____ minutes. Quality Stroke Does the patient have a stroke diagnosis?: No VTE Prior VTE?: No VTE Risk Level:: Medical - moderate - high VTE Device Contraindication: Treatment Not Indicated VTE Drug Contraindication: N/A - Med Ordered
[2022-05-26 11:05] LABS: Glucose, Whole Blood 141 mg/dL (60-115)
[2022-05-26 12:14] LABS: Creatinine Clr Calc Pharmacy 126.3; Estimated Glomerular Filt Rate > 60
--- NOTE | 2022-05-26 12:37 | PHA.PROG ---
Admission Date/Time: May 25, 2022 02:33 Indication: Weight in k.934 kg Adjusted body weight in K.1 kg [place] body weight in K.9 kg Obesity Dosing Indication % IBW: Serum Creatinine - Last 168 Hours 05/24/22 05/26/22 Unknown Unknown Creatinine 0.76 0.92 Estimated CrCl and GFR - Last 168 Hours 05/24/22 05/26/22 Unknown Unknown Estim Creat Clear Calc 152.9 126.3 Estimated GFR > 60 > 60 Vancomycin Loading Dose: 2000 mg Current Vancomycin Dosing Regimen: 1250 mg q12h Vancomycin Monitoring using AUC goal of 400 - 600 range with trough as surrogate marker: predicted auc of 555 , trough 15.5 Date and Time for next Vancomycin Level to be drawn: before 3rd dose 05/27/22 @1000. Pharmacist Comments on Vancomycin Plan: obese model used Vancomycin dosing will take advantage of [employer] as a clinical decision support tool that uses Bayesian modeling to calculate individual patient's pharmacokinetic parameters and forecast the patient's drug concentration time course with the target goal AUC 24 range of 400 - 600 mg/L/hr.
[2022-05-26 15:21] VITALS: BP 110/56; PULSE 79; RESP 16; TEMP 36.4; O2SAT 97
--- NOTE | 2022-05-26 16:02 | HO.ADDICTPRO ---
Subjective Subjective Date of Service: 05/26/22 Reason For Visit: DFU Interim History: Patient seen in follow up. Voicing frustration that methadone dose was decreased to 40mg QD. Reporting he was just tired after not sleeping for 29 hours . This adjusto writer operator reminded patient that we are unable to continue methadone at prior dose due to lack of follow up with OTP in the community. Patient verbalized understanding. Asking to continue titrating dose. This adjusto writer operator raised concerns that patient has not been engaged with any OTP in the community and last 2 admissions has discharged on 140mg and 85mg of methadone and did not continue with OTP either time. Patient reports that he has been buying methadone and takes 100mg doses when he gets it. Regarding withdrawal sx: patient irritable, and reporting feeling like garbage . Review of Systems Constitutional: Reports as per HPI Mental Status Exam Mental Status Exam Patient Appearance: Appropriate (hospital attire) Level of Consciousness: Awake, Appropriate and Alert Patient Behavior: Appropriate and Cooperative Affect Description: Constricted Thought Process: Intact Thought Content: positive for Intact and positive for Goal Oriented Diagnostics Vital Signs (24Hr): Vital Signs - 24 hr 05/25/22 16:42 05/25/22 20:26 05/26/22 04:00 Temperature 97.6 F 97.4 F Pulse Rate 96 82 Respiratory Rate 18 17 Blood Pressure 120/70 169/83 H 129/75 Pulse Oximetry 99 96 Oxygen Delivery Method Nasal Cannula Nasal Cannula Oxygen Flow Rate 2 2 05/26/22 06:53 05/26/22 15:21 Temperature 98.6 F 97.5 F Pulse Rate 85 79 Respiratory Rate 18 16 Blood Pressure 158/80 H 110/56 L Pulse Oximetry 100 97 Oxygen Delivery Method Nasal Cannula Nasal Cannula Oxygen Flow Rate 2 2 BMI result Body Mass Index 34.2 Labs Results: 05/26/22 Unknown Labs: Laboratory Results - last 48 hr 05/24/22 05/24/22 05/25/22 20:34 Unknown 02:35 Sodium 138 Potassium 5.1 D Chloride 108 Carbon Dioxide 20 L Anion Gap 15 BUN 19 H Creatinine 0.76 Estim Creat Clear Calc 152.9 Estimated GFR > 60 POC Glucose 114 Random Glucose 174 H Lactic Acid Calcium 8.8 Total Bilirubin 0.9 AST 74 H ALT 58 H Alkaline Phosphatase 359 H C-Reactive Protein 4.36 H Total Protein 7.2 Albumin 3.6 COVID-19 ([facility]) Negative COVID-19 [employer] See Note 05/25/22 05/25/22 05/25/22 07:33 11:16 14:42 Sodium Potassium Chloride Carbon Dioxide Anion Gap BUN Creatinine Estim Creat Clear Calc Estimated GFR POC Glucose 118 H 130 H Random Glucose Lactic Acid 1.4 Calcium Total Bilirubin AST ALT Alkaline Phosphatase C-Reactive Protein Total Protein Albumin COVID-19 (NACHO) COVID-19 [employer] 05/25/22 05/25/22 05/26/22 15:42 19:51 06:54 Sodium Potassium Chloride Carbon Dioxide Anion Gap BUN Creatinine Estim Creat Clear Calc Estimated GFR POC Glucose 319 H 270 H 235 H Random Glucose Lactic Acid Calcium Total Bilirubin AST ALT Alkaline Phosphatase C-Reactive Protein Total Protein Albumin COVID-19 ([facility]) COVID-19 [employer] 05/26/22 05/26/22 10:58 Unknown Sodium Potassium Chloride Carbon Dioxide Anion Gap BUN Creatinine 0.92 Estim Creat Clear Calc 126.3 Estimated GFR > 60 POC Glucose 141 H Random Glucose Lactic Acid Calcium Total Bilirubin AST ALT Alkaline Phosphatase C-Reactive Protein Total Protein Albumin COVID-19 ([facility]CHO) COVID-19 [employer] Imaging Radiology Impressions: ITS Impressions Foot X-Ray 05/24/22 19:30 IMPRESSION: Stable examination of the left foot as described above EXAMINATION: XR FOOT, RIGHT CLINICAL INFORMATION: Chronic right foot wound with pain COMPARISON: 04/25/2022 TECHNIQUE: AP, lateral, and oblique views of the right foot. 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 Surgical clips are present. Soft tissue swelling is seen. No bony destruction is seen to suggest osteomyelitis. No acute fractures. IMPRESSION: Stable examination of the right foot as described above Foot X-Ray 05/24/22 19:30 IMPRESSION: Stable examination of the left foot as described above EXAMINATION: XR FOOT, RIGHT CLINICAL INFORMATION: Chronic right foot wound with pain COMPARISON: 04/25/2022 TECHNIQUE: AP, lateral, and oblique views of the right foot. 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 Surgical clips are present. Soft tissue swelling is seen. No bony destruction is seen to suggest osteomyelitis. No acute fractures. IMPRESSION: Stable examination of the right foot as described above Medications Medications Current Medications Amlodipine Besylate (Amlodipine Besylate 5 Mg Tablet) 5 mg PO DAILY [facility]; Protocol Last Admin: 05/26/22 08:22 Dose: 5 mg Atorvastatin Calcium (Atorvastatin Calcium 40 Mg Tablet) 40 mg PO BEDTIME [facility] Last Admin: 05/25/22 20:26 Dose: 40 mg Clonazepam (Clonazepam 1 Mg Tablet) 1 mg PO BID PRN PRN Reason: anxiety Last Admin: 05/26/22 13:04 Dose: 1 mg Clonidine HCl (Clonidine Hcl 0.2 Mg Tablet) 0.2 mg PO TID [facility]; Protocol Last Admin: 05/26/22 14:44 Dose: 0.2 mg Dextrose (Dextrose 50 % 25 Gm/50 Ml Syringe) 25 gm IVPUSH Q15M PRN; Protocol PRN Reason: per Hypoglycemia Standing Ord. Enoxaparin Sodium (Enoxaparin Sodium 40 Mg/0.4 Ml Syringe) 40 mg SUBCUT Q24H [facility] Last Admin: 05/26/22 08:22 Dose: Not Given Furosemide (Furosemide 40 Mg Tablet) 40 mg PO BIDWM [facility]; Protocol Last Admin: 05/26/22 08:22 Dose: 40 mg Gabapentin (Gabapentin 600 Mg Tablet) 600 mg PO TID [facility] Last Admin: 05/26/22 14:44 Dose: 600 mg Glucose (Glucose Gel 15 Gm Gel..Gram.) 15 gm PO Q15M PRN; Protocol PRN Reason: per Hypoglycemia Standing Ord. Vancomycin HCl 1,250 mg/ (Sodium Chloride) 250 mls @ 166.667 mls/hr IV Q12H [facility] Insulin Glargine (Insulin Glargine,Hum.Rec.Anlog 100 Unit/Ml 10 Ml Vial) 60 unit SUBCUT BEDTIME [facility] Last Admin: 05/25/22 20:27 Dose: 60 unit Insulin Human Lispro (Insulin Lispro 100 Unit/Ml 3 Ml Vial) 0 unit SUBCUT QIDACHS [facility]; Protocol Last Admin: 05/26/22 11:49 Dose: Not Given Insulin Human Lispro (Insulin Lispro 100 Unit/Ml 3 Ml Vial) 5 unit SUBCUT TIDAC [facility] Last Admin: 05/26/22 11:48 Dose: 5 unit Levofloxacin (Levofloxacin 750 Mg Tablet) 750 mg PO Q24H [facility] Last Admin: 05/26/22 01:59 Dose: 750 mg Methadone HCl (Methadone Hcl 20 Mg/2 Ml Oral.Conc) 50 mg PO DAILY [facility] Pharmacy Consult (Consult Rx Vancomycin Dosing) 1 each MISCELLANE DAILY PRN PRN Reason: Consult order Quetiapine Fumarate (Quetiapine Fumarate 100 Mg Tablet) 100 mg PO BID [facility] Last Admin: 05/26/22 08:22 Dose: 100 mg Sodium Chloride (0.9 % Sodium Chloride Flush 3 Ml Syringe) 3 ml IVFLUSH QSHIFT [facility] Last Admin: 05/26/22 08:18 Dose: 3 ml Allergies Allergies Allergy/AdvReac Type Severity Reaction Status Date / Time prochlorperazine Allergy Intermediate Hives Verified 03/22/22 10:13 [From Compazine] aspirin [ASA] Allergy Unknown HIVES Unverified 02/20/20 16:18 naproxen [From NAPROSYN] Allergy Unknown HIVES Unverified 02/20/20 16:18 NSAIDS (Non-Steroidal Allergy Unknown HIVES Unverified 02/20/20 16:18 Anti-Inflamma [NSAIDS (NON-STEROIDAL ANTI-INFLAMMA] Penicillins [PENICILLINS] Allergy Unknown HIVES Unverified 02/20/20 16:18 Assessment & Plan Assessment & Plan (1) Opioid use disorder: Status: Acute Code(s): F11.90 - Opioid use, unspecified, uncomplicated Assessment and Plan: continue methadone titration -55mg tomorrow 05/27 patient identified lack of transportation, limited social supports and no community providers in place as major barriers to accessing/continuing care following hospitalizations. Will refer to [facility] in [place] per patient request as he has been to this [facility] in the past and it is accessible via the bus line. Will contine to follow and provider resources and encouragement to establish care with community providers Total time managing care of this patient today __25__ minutes.
[2022-05-26 19:28] VITALS: BP 133/67; PULSE 80; RESP 17; TEMP 37.1; O2SAT 97
[2022-05-26] MEDS: Insulin Glargine,Hum.rec.anlog 100 UNIT/ML 10 ML VIAL 60 UNIT SUBCUT (21:13)
[2022-05-26] MEDS: Atorvastatin Calcium 40 MG TABLET PO (21:14)
[2022-05-26] MEDS: vancomycin HCL 1,250 MG in 0.9 % Sodium Chloride 250 ML 166.67 MG IV (23:44)
[2022-05-27] MEDS: levoFLOXacin 750 MG TABLET PO (01:44)
[2022-05-27 06:28] LABS: Hematocrit 30.9 % (42.0-52.0); Hemoglobin 10.1 g/dl (14.0-18.0); Mean Corpuscular HGB Conc 32.7 g/dl (31.0-36.0); Mean Corpuscular Hemoglobin 27.4 pg (27.0-33.0); Mean Corpuscular Volume 83.7 fL (80.0-98.0); Mean Platelet Volume 10.4 fL (9.4-12.4); Red Blood Count 3.69 X10*6/uL (4.60-5.80)
[2022-05-27 06:30] LABS: Platelet Count 85 X10*3/uL (160-400); White Blood Count 2.1 X10*3/uL (4.8-10.8)
[2022-05-27 07:23] LABS: Anion Gap 9 (12-20); Blood Urea Nitrogen 16 mg/dL (9-16); Calcium 8.5 mg/dL (8.4-10.2); Carbon Dioxide 31 mmol/L (22-29); Chloride 100 mmol/L (96-108); Creatinine Clr Calc Pharmacy 138.3; Estimated Glomerular Filt Rate > 60; Glucose Fasting 145 mg/dL (60-99); Potassium 4.1 mmol/L (3.3-5.1); Sodium 136 mmol/L (135-145)
[2022-05-27 08:00] VITALS: BP 119/58; PULSE 79; RESP 18; TEMP 37.1; O2SAT 100
[2022-05-27] MEDS: Insulin Lispro 100 UNIT/ML 3 ML VIAL SUBCUT ×6 (08:39→20:30)
[2022-05-27] MEDS: QUEtiapine Fumarate 100 MG TABLET PO ×2 (08:40→20:31)
[2022-05-27] MEDS: Furosemide 40 MG TABLET PO (08:40)
[2022-05-27] MEDS: amLODIPine Besylate 5 MG TABLET PO (08:40)
[2022-05-27] MEDS: cloNIDine HCL 0.2 MG TABLET PO ×3 (08:40→20:31)
[2022-05-27] MEDS: methADONE HCl 20 MG/2 ML ORAL.CONC 55 MG PO (08:40)
[2022-05-27] MEDS: Gabapentin 600 MG TABLET PO ×3 (08:40→20:31)
[2022-05-27] MEDS: 0.9 % Sodium Chloride Flush 3 ML SYRINGE IVFLUSH ×3 (08:40→20:31)
[2022-05-27] MEDS: clonazePAM 1 MG TABLET PO ×2 (08:48→20:39)
--- NOTE | 2022-05-27 10:23 | HO.PM.IMPN ---
Subjective Subjective Date of Service: 05/27/22 Interval History: cc: non healing dfu interval history:foot pain Respiratory Respiratory: Reports no additional respiratory complaints Gastrointestinal Gastrointestinal: Reports no additional gastrointestinal complaints Physical Exam Vital Signs: Vital Signs: Last Vital Signs Temp 98.8 F 05/27/22 08:00 Pulse 79 05/27/22 08:00 Resp 18 05/27/22 08:00 BP 119/58 L 05/27/22 08:00 Pulse Ox 100 05/27/22 08:00 O2 Del Method 05/27/22 08:00 O2 Flow Rate 2 05/27/22 08:00 BMI result Body Mass Index 34.2 Const: General: cooperative HEENT: Head: Yes normal to inspection Face and sinus: Yes normal facial exam Mouth: Normal oral and palatal mucosa present Teeth and gingiva: dentition normal Eyes: General: appearance normal, both eyes and all related structures Pupils: Equal, round and reactive pupils present Resp: Effort & Inspection: normal respiratory effort Cardio: Rate: regular rate Rhythm: regular rhythm GI: Palpation (GI): Soft to palpation and nontender : General: Yes no CVA tenderness Back/Spine/Pelvis: Back: no CVA tenderness Skin: General skin exam: no rashes or lesions noted Neuro: General: moves all extremities Cranial nerves: Yes Equal, round and reactive pupils present Extrem: Other: two areas plantar right foot 1 cm rounded and open,no cellulitis or purulence one area lateral left foot eschar open area no cellulitis or purulence General: Yes normal to inspection Psych: Appearance: grossly normal Objective Data Active Medications Amlodipine Besylate (Amlodipine Besylate 5 Mg Tablet) 5 mg PO DAILY [facility]; Protocol Last Admin: 05/27/22 08:40 Dose: 5 mg Documented By: EMMIE Atorvastatin Calcium (Atorvastatin Calcium 40 Mg Tablet) 40 mg PO BEDTIME [facility] Last Admin: 05/26/22 21:14 Dose: 40 mg Documented By: TORSTEN Clonazepam (Clonazepam 1 Mg Tablet) 1 mg PO BID PRN PRN Reason: anxiety Last Admin: 05/27/22 08:48 Dose: 1 mg Documented By: EMMIE Clonidine HCl (Clonidine Hcl 0.2 Mg Tablet) 0.2 mg PO TID [facility]; Protocol Last Admin: 05/27/22 08:40 Dose: 0.2 mg Documented By: EMMIE Dextrose (Dextrose 50 % 25 Gm/50 Ml Syringe) 25 gm IVPUSH Q15M PRN; Protocol PRN Reason: per Hypoglycemia Standing Ord. Enoxaparin Sodium (Enoxaparin Sodium 40 Mg/0.4 Ml Syringe) 40 mg SUBCUT Q24H [facility] Last Admin: 05/27/22 08:40 Dose: Not Given Documented By: EMMIE Non-Admin Reason: Patient Refused Furosemide (Furosemide 40 Mg Tablet) 40 mg PO BIDWM [facility]; Protocol Last Admin: 05/27/22 08:40 Dose: 40 mg Documented By: EMMIE Gabapentin (Gabapentin 600 Mg Tablet) 600 mg PO TID [facility] Last Admin: 05/27/22 08:40 Dose: 600 mg Documented By: EMMIE Glucose (Glucose Gel 15 Gm Gel..Gram.) 15 gm PO Q15M PRN; Protocol PRN Reason: per Hypoglycemia Standing Ord. Vancomycin HCl 1,250 mg/ (Sodium Chloride) 250 mls @ 166.667 mls/hr IV Q12H [facility] Last Infusion: 05/27/22 01:25 Dose: 0 mls/hr Documented By: ZAKI Insulin Glargine (Insulin Glargine,Hum.Rec.Anlog 100 Unit/Ml 10 Ml Vial) 60 unit SUBCUT BEDTIME [facility] Last Admin: 05/26/22 21:13 Dose: 60 unit Documented By: TORSTEN Insulin Human Lispro (Insulin Lispro 100 Unit/Ml 3 Ml Vial) 0 unit SUBCUT QIDACHS [facility]; Protocol Last Admin: 05/27/22 08:39 Dose: 2 unit Documented By: EMMIE Insulin Human Lispro (Insulin Lispro 100 Unit/Ml 3 Ml Vial) 5 unit SUBCUT TIDAC [facility] Last Admin: 05/27/22 08:39 Dose: 5 unit Documented By: EMMIE Levofloxacin (Levofloxacin 750 Mg Tablet) 750 mg PO Q24H [facility] Last Admin: 05/27/22 01:44 Dose: 750 mg Documented By: ZKAI Methadone HCl (Methadone Hcl 20 Mg/2 Ml Oral.Conc) 55 mg PO DAILY [facility] Last Admin: 05/27/22 08:40 Dose: 55 mg Documented By: EMMIE Pharmacy Consult (Consult Rx Vancomycin Dosing) 1 each MISCELLANE DAILY PRN PRN Reason: Consult order Quetiapine Fumarate (Quetiapine Fumarate 100 Mg Tablet) 100 mg PO BID [facility] Last Admin: 05/27/22 08:40 Dose: 100 mg Documented By: EMMIE Sodium Chloride (0.9 % Sodium Chloride Flush 3 Ml Syringe) 3 ml IVFLUSH QSHIFT [facility] Last Admin: 05/27/22 08:40 Dose: 3 ml Documented By: EMMIE Labs CBC & Chem 7: 05/27/22 05:58 05/27/22 05:58 Labs: Laboratory Results - last 24 hr 05/26/22 05/26/22 05/26/22 10:58 15:26 19:30 MCV MCH MCHC RDW Plt Count MPV Absolute Nucleated RBC Nucleated RBC % (auto) Smear Path Review Anion Gap Estim Creat Clear Calc Estimated GFR POC Glucose 141 H 227 H 322 H Fasting Glucose Calcium 05/26/22 05/27/22 05/27/22 Unknown 05:58 05:58 MCV 83.7 MCH 27.4 MCHC 32.7 RDW 16.0 Plt Count 85 L MPV 10.4 Absolute Nucleated RBC 0.000 Nucleated RBC % (auto) 0.0 Smear Path Review SEE NOTE Anion Gap 9 L Estim Creat Clear Calc 126.3 138.3 Estimated GFR > 60 > 60 POC Glucose Fasting Glucose 145 H D Calcium 8.5 05/27/22 07:51 MCV MCH MCHC RDW Plt Count MPV Absolute Nucleated RBC Nucleated RBC % (auto) Smear Path Review Anion Gap Estim Creat Clear Calc Estimated GFR POC Glucose 165 H Fasting Glucose Calcium Assessment and Plan (1) HTN (hypertension): Status: Acute Plan 51M pmh obesity, opiate dependence, htn, DM, chronic hypoxic respiratory failure, PVD, hld, anxiety, presented with bilateral DFU with oozing bilateral lower extremity ulcers due to DM and PVD partially treated ID appreciated, now with picc, continue vanc, levaquin 6 weeks (end jun 07, 2022) opiate dependence with withdrawal methadone DM basal bolus insulin with correction, monitor poc chronic hypoxic respiratory failure on 2L home o2 out of o2 at home obesity weight loss htn amlodipine, clonidine mood disorder seroquel hld statin dvt prophylaxis - lovenox reason for continued hospitalization:awaiting placement Time Spent With Patient Time: Total time managing care of this patient today ____ minutes. Quality Stroke Does the patient have a stroke diagnosis?: No VTE Prior VTE?: No VTE Risk Level:: Medical - moderate - high VTE Device Contraindication: Treatment Not Indicated VTE Drug Contraindication: N/A - Med Ordered
[2022-05-27 10:57] LABS: Vancomycin Trough 14.1 mcg/mL (10.0-20.0)
[2022-05-27] MEDS: vancomycin HCL 1,250 MG in 0.9 % Sodium Chloride 250 ML 166.66 MG IV ×2 (11:50→23:47)
--- NOTE | 2022-05-27 12:04 | MHC.CM.PN ---
PT CONTINUES TO REQUIRE PLACEMENT FOR LT IV ABX REFERRALS HAVE BEEN MADE, THERE ARE NO BED OFFERS CM WILL CONTINUE TO EXPAND/UPDATE REFERRAL
[2022-05-27 15:10] VITALS: BP 115/58; PULSE 69; RESP 17; TEMP 36.2; O2SAT 94
--- NOTE | 2022-05-27 19:02 | PM.EVENT ---
Event Note Date of Service: 05/27/22 Event Note: Addiction note: Nursing reporting patient is requesting increase in methadone dose. Per RN, patient appearing sedated and slurring words in AM following medication administration. Chart reviewed, patient has scheduled methadone, gabapentin, clonidine, seroquel and PRN Klonopin BID Plan: -avoid administering Klonopin, gabapentin and seroquel with methadone -seroquel admin times adjusted to 11am and 9pm -continue to monitor -increase methadone to 65mg QD. -ekg secondary to titration Time Spent With Patient Time: Total time managing care of this patient today ____ minutes.
--- NOTE | 2022-05-27 19:15 | ECG_ITS ---
Test Reason : methadone dose titration Blood Pressure : / mmHG Vent. Rate : 071 BPM Atrial Rate : 071 BPM P-R Int : 196 ms QRS Dur : 072 ms QT Int : 414 ms P-R-T Axes : 032 -11 -13 degrees QTc Int : 449 ms Normal sinus rhythm Minimal voltage criteria for LVH, may be normal variant ( R in aVL ) Inferior infarct (cited on or before 18-MAY-2022) Abnormal ECG When compared with ECG of 18-MAY-2022 10:35, No significant change was found Referred By: Faye Chavira Electronically Signed By:Jack Holt
[2022-05-27 19:36] VITALS: BP 118/59; PULSE 64; RESP 16; TEMP 37.1; O2SAT 96
[2022-05-27] MEDS: Insulin Glargine,Hum.rec.anlog 100 UNIT/ML 10 ML VIAL 60 UNIT SUBCUT (20:30)
[2022-05-27] MEDS: Atorvastatin Calcium 40 MG TABLET PO (20:31)
[2022-05-28] MEDS: levoFLOXacin 750 MG TABLET PO (01:23)
[2022-05-28 07:49] VITALS: BP 134/72; PULSE 63; RESP 17; TEMP 36.4; O2SAT 99
[2022-05-28] MEDS: Insulin Lispro 100 UNIT/ML 3 ML VIAL SUBCUT ×7 (08:12→20:27)
[2022-05-28] MEDS: amLODIPine Besylate 5 MG TABLET PO (08:13)
[2022-05-28] MEDS: cloNIDine HCL 0.2 MG TABLET PO ×3 (08:13→20:26)
[2022-05-28] MEDS: Gabapentin 600 MG TABLET PO ×3 (08:13→20:26)
[2022-05-28] MEDS: clonazePAM 1 MG TABLET PO ×2 (08:13→20:26)
[2022-05-28] MEDS: 0.9 % Sodium Chloride Flush 3 ML SYRINGE IVFLUSH ×2 (08:14→14:46)
--- NOTE | 2022-05-28 09:00 | HO.PM.IMPN ---
Subjective Subjective Date of Service: 05/28/22 Interval History: cc: non healing dfu interval history:foot pain Respiratory Respiratory: Reports no additional respiratory complaints Gastrointestinal Gastrointestinal: Reports no additional gastrointestinal complaints Physical Exam Vital Signs: Vital Signs: Last Vital Signs Temp 97.5 F 05/28/22 07:49 Pulse 63 05/28/22 07:49 Resp 17 05/28/22 07:49 BP 134/72 05/28/22 07:49 Pulse Ox 99 05/28/22 07:49 O2 Del Method 05/28/22 07:49 O2 Flow Rate 2 05/28/22 07:49 BMI result Body Mass Index 34.2 Const: General: cooperative HEENT: Head: Yes normal to inspection Face and sinus: Yes normal facial exam Mouth: Normal oral and palatal mucosa present Teeth and gingiva: dentition normal Eyes: General: appearance normal, both eyes and all related structures Pupils: Equal, round and reactive pupils present Resp: Effort & Inspection: normal respiratory effort Cardio: Rate: regular rate Rhythm: regular rhythm GI: Palpation (GI): Soft to palpation and nontender : General: Yes no CVA tenderness Back/Spine/Pelvis: Back: no CVA tenderness Skin: General skin exam: no rashes or lesions noted Neuro: General: moves all extremities Cranial nerves: Yes Equal, round and reactive pupils present Extrem: Other: two areas plantar right foot 1 cm rounded and open,no cellulitis or purulence one area lateral left foot eschar open area no cellulitis or purulence General: Yes normal to inspection Psych: Appearance: grossly normal Objective Data Active Medications Amlodipine Besylate (Amlodipine Besylate 5 Mg Tablet) 5 mg PO DAILY [facility]; Protocol Last Admin: 05/28/22 08:13 Dose: 5 mg Documented By: KERVIN Atorvastatin Calcium (Atorvastatin Calcium 40 Mg Tablet) 40 mg PO BEDTIME [facility] Last Admin: 05/27/22 20:31 Dose: 40 mg Documented By: NIKKIE Clonazepam (Clonazepam 1 Mg Tablet) 1 mg PO BID PRN PRN Reason: anxiety Last Admin: 05/28/22 08:13 Dose: 1 mg Documented By: KERVIN Clonidine HCl (Clonidine Hcl 0.2 Mg Tablet) 0.2 mg PO TID [facility]; Protocol Last Admin: 05/28/22 08:13 Dose: 0.2 mg Documented By: KERVIN Dextrose (Dextrose 50 % 25 Gm/50 Ml Syringe) 25 gm IVPUSH Q15M PRN; Protocol PRN Reason: per Hypoglycemia Standing Ord. Enoxaparin Sodium (Enoxaparin Sodium 40 Mg/0.4 Ml Syringe) 40 mg SUBCUT Q24H [facility] Last Admin: 05/28/22 08:14 Dose: Not Given Documented By: KERVIN Non-Admin Reason: Patient Refused Furosemide (Furosemide 40 Mg Tablet) 40 mg PO BIDWM [facility]; Protocol Last Admin: 05/28/22 08:19 Dose: Not Given Documented By: KERVIN Non-Admin Reason: Patient Refused Gabapentin (Gabapentin 600 Mg Tablet) 600 mg PO TID [facility] Last Admin: 05/28/22 08:13 Dose: 600 mg Documented By: KERVIN Glucose (Glucose Gel 15 Gm Gel..Gram.) 15 gm PO Q15M PRN; Protocol PRN Reason: per Hypoglycemia Standing Ord. Vancomycin HCl 1,250 mg/ (Sodium Chloride) 250 mls @ 166.667 mls/hr IV Q12H [facility] Last Infusion: 05/28/22 01:26 Dose: 0 mls/hr Documented By: OUMAR Insulin Glargine (Insulin Glargine,Hum.Rec.Anlog 100 Unit/Ml 10 Ml Vial) 60 unit SUBCUT BEDTIME [facility] Last Admin: 05/27/22 20:30 Dose: 60 unit Documented By: NIKKIE Insulin Human Lispro (Insulin Lispro 100 Unit/Ml 3 Ml Vial) 0 unit SUBCUT QIDACHS [facility]; Protocol Last Admin: 05/28/22 08:13 Dose: 8 unit Documented By: KERVIN Insulin Human Lispro (Insulin Lispro 100 Unit/Ml 3 Ml Vial) 5 unit SUBCUT TIDAC [facility] Last Admin: 05/28/22 08:12 Dose: 5 unit Documented By: KERVIN Levofloxacin (Levofloxacin 750 Mg Tablet) 750 mg PO Q24H [facility] Last Admin: 05/28/22 01:23 Dose: 750 mg Documented By: OUMAR Methadone HCl (Methadone Hcl 20 Mg/2 Ml Oral.Conc) 65 mg PO DAILY [facility] Last Admin: 05/28/22 08:14 Dose: 65 mg Documented By: KERVIN Pharmacy Consult (Consult Rx Vancomycin Dosing) 1 each MISCELLANE DAILY PRN PRN Reason: Consult order Quetiapine Fumarate (Quetiapine Fumarate 100 Mg Tablet) 100 mg PO BID@1100,2100 [facility] Last Admin: 05/27/22 20:31 Dose: 100 mg Documented By: NIKKIE Sodium Chloride (0.9 % Sodium Chloride Flush 3 Ml Syringe) 3 ml IVFLUSH QSHIFT [facility] Last Admin: 05/28/22 08:14 Dose: 3 ml Documented By: KERVIN Labs CBC & Chem 7: 05/27/22 05:58 05/27/22 05:58 Labs: Laboratory Results - last 24 hr 05/27/22 05/27/22 05/27/22 05:58 10:18 11:26 Smear Path Review SEE NOTE POC Glucose 144 H Vancomycin Trough 14.1 05/27/22 05/27/22 05/28/22 15:13 19:38 07:51 Smear Path Review POC Glucose 395 H* 315 H 310 H Vancomycin Trough Assessment and Plan (1) HTN (hypertension): Status: Acute Plan 51M pmh obesity, opiate dependence, htn, DM, chronic hypoxic respiratory failure, PVD, hld, anxiety, presented with bilateral DFU with oozing bilateral lower extremity ulcers due to DM and PVD partially treated ID appreciated, now with picc, continue vanc, levaquin 6 weeks (end jun 07, 2022) opiate dependence with withdrawal methadone DM basal bolus insulin with correction, monitor poc chronic hypoxic respiratory failure on 2L home o2 out of o2 at home obesity weight loss htn amlodipine, clonidine mood disorder seroquel hld statin dvt prophylaxis - lovenox reason for continued hospitalization:awaiting placement Time Spent With Patient Time: Total time managing care of this patient today ____ minutes. Quality Stroke Does the patient have a stroke diagnosis?: No VTE Prior VTE?: No VTE Risk Level:: Medical - moderate - high VTE Device Contraindication: Treatment Not Indicated VTE Drug Contraindication: N/A - Med Ordered
[2022-05-28] MEDS: QUEtiapine Fumarate 100 MG TABLET PO ×2 (10:16→20:26)
[2022-05-28 11:44] LABS: Vancomycin Trough 4.7 mcg/mL (10.0-20.0)
[2022-05-28 11:46] LABS: Creatinine Clr Calc Pharmacy 130.6; Estimated Glomerular Filt Rate > 60
--- NOTE | 2022-05-28 14:19 | HE.PHANOTE ---
RE: susie Pt's trough came back low at 4.7 on 05/28; asked lab to re-run sample to be sure. Freeman confirmed with nursing that doses were all fully administered. Changing dose to 1g Q8 with predicted AUC 562mg/L. Drawing another level 05/29 @1300
[2022-05-28 15:59] VITALS: BP 141/62; PULSE 73; RESP 20; TEMP 36.6; O2SAT 98
[2022-05-28] MEDS: Atorvastatin Calcium 40 MG TABLET PO (20:26)
[2022-05-28] MEDS: Insulin Glargine,Hum.rec.anlog 100 UNIT/ML 10 ML VIAL 60 UNIT SUBCUT (20:27)
[2022-05-28 22:04] VITALS: BP 130/66; PULSE 68; RESP 20; TEMP 36.6; O2SAT 99
[2022-05-29] MEDS: levoFLOXacin 750 MG TABLET PO (02:35)
[2022-05-29 03:10] VITALS: BP 122/60; PULSE 62; RESP 18; TEMP 36; O2SAT 100
[2022-05-29 07:47] VITALS: BP 154/66; PULSE 75; RESP 12; TEMP 36.7; O2SAT 95
[2022-05-29] MEDS: Insulin Lispro 100 UNIT/ML 3 ML VIAL SUBCUT ×7 (07:55→21:18)
[2022-05-29] MEDS: Gabapentin 600 MG TABLET PO ×3 (07:56→21:15)
[2022-05-29] MEDS: clonazePAM 1 MG TABLET PO ×2 (07:56→21:15)
[2022-05-29] MEDS: amLODIPine Besylate 5 MG TABLET PO (07:56)
[2022-05-29] MEDS: cloNIDine HCL 0.2 MG TABLET PO ×3 (07:56→21:15)
--- NOTE | 2022-05-29 09:05 | HO.PM.IMPN ---
Subjective Subjective Date of Service: 05/29/22 Interval History: cc: non healing dfu interval history:foot pain Respiratory Respiratory: Reports no additional respiratory complaints Gastrointestinal Gastrointestinal: Reports no additional gastrointestinal complaints Physical Exam Vital Signs: Vital Signs: Last Vital Signs Temp 98.0 F 05/29/22 07:47 Pulse 75 05/29/22 07:47 Resp 12 05/29/22 07:47 BP 154/66 H 05/29/22 07:47 Pulse Ox 95 05/29/22 07:47 O2 Del Method 05/29/22 07:47 O2 Flow Rate 2 05/28/22 15:59 BMI result Body Mass Index 34.2 Const: General: cooperative HEENT: Head: Yes normal to inspection Face and sinus: Yes normal facial exam Mouth: Normal oral and palatal mucosa present Teeth and gingiva: dentition normal Eyes: General: appearance normal, both eyes and all related structures Pupils: Equal, round and reactive pupils present Resp: Effort & Inspection: normal respiratory effort Cardio: Rate: regular rate Rhythm: regular rhythm GI: Palpation (GI): Soft to palpation and nontender : General: Yes no CVA tenderness Back/Spine/Pelvis: Back: no CVA tenderness Skin: General skin exam: no rashes or lesions noted Neuro: General: moves all extremities Cranial nerves: Yes Equal, round and reactive pupils present Extrem: Other: two areas plantar right foot 1 cm rounded and open,no cellulitis or purulence one area lateral left foot eschar open area no cellulitis or purulence General: Yes normal to inspection Psych: Appearance: grossly normal Objective Data Active Medications Amlodipine Besylate (Amlodipine Besylate 5 Mg Tablet) 5 mg PO DAILY [facility]; Protocol Last Admin: 05/29/22 07:56 Dose: 5 mg Documented By: KERVIN Atorvastatin Calcium (Atorvastatin Calcium 40 Mg Tablet) 40 mg PO BEDTIME [facility] Last Admin: 05/28/22 20:26 Dose: 40 mg Documented By: HUY Clonazepam (Clonazepam 1 Mg Tablet) 1 mg PO BID PRN PRN Reason: anxiety Last Admin: 05/29/22 07:56 Dose: 1 mg Documented By: KERVIN Clonidine HCl (Clonidine Hcl 0.2 Mg Tablet) 0.2 mg PO TID [facility]; Protocol Last Admin: 05/29/22 07:56 Dose: 0.2 mg Documented By: KERVIN Dextrose (Dextrose 50 % 25 Gm/50 Ml Syringe) 25 gm IVPUSH Q15M PRN; Protocol PRN Reason: per Hypoglycemia Standing Ord. Enoxaparin Sodium (Enoxaparin Sodium 40 Mg/0.4 Ml Syringe) 40 mg SUBCUT Q24H [facility] Last Admin: 05/29/22 07:56 Dose: Not Given Documented By: KERVIN Non-Admin Reason: Patient Refused Furosemide (Furosemide 40 Mg Tablet) 40 mg PO BIDWM [facility]; Protocol Last Admin: 05/29/22 07:56 Dose: Not Given Documented By: KERVIN Non-Admin Reason: Patient Refused Gabapentin (Gabapentin 600 Mg Tablet) 600 mg PO TID [facility] Last Admin: 05/29/22 07:56 Dose: 600 mg Documented By: KERVIN Glucose (Glucose Gel 15 Gm Gel..Gram.) 15 gm PO Q15M PRN; Protocol PRN Reason: per Hypoglycemia Standing Ord. Vancomycin HCl 1,000 mg/ (Sodium Chloride) 270 mls @ 270 mls/hr IV Q8H [facility] Last Infusion: 05/29/22 07:57 Dose: 0 mls/hr Documented By: KERVIN Insulin Glargine (Insulin Glargine,Hum.Rec.Anlog 100 Unit/Ml 10 Ml Vial) 60 unit SUBCUT BEDTIME [facility] Last Admin: 05/28/22 20:27 Dose: 60 unit Documented By: HUY Insulin Human Lispro (Insulin Lispro 100 Unit/Ml 3 Ml Vial) 0 unit SUBCUT QIDACHS [facility]; Protocol Last Admin: 05/29/22 07:55 Dose: 10 unit Documented By: KERVIN Insulin Human Lispro (Insulin Lispro 100 Unit/Ml 3 Ml Vial) 5 unit SUBCUT TIDAC [facility] Last Admin: 05/29/22 07:55 Dose: 5 unit Documented By: KERVIN Levofloxacin (Levofloxacin 750 Mg Tablet) 750 mg PO Q24H [facility] Last Admin: 05/29/22 02:35 Dose: 750 mg Documented By: HUY Methadone HCl (Methadone Hcl 20 Mg/2 Ml Oral.Conc) 65 mg PO DAILY [facility] Last Admin: 05/29/22 07:57 Dose: 65 mg Documented By: KERVIN Pharmacy Consult (Consult Rx Vancomycin Dosing) 1 each MISCELLANE DAILY PRN PRN Reason: Consult order Quetiapine Fumarate (Quetiapine Fumarate 100 Mg Tablet) 100 mg PO BID@1100,2100 [facility] Last Admin: 05/28/22 20:26 Dose: 100 mg Documented By: HUY Sodium Chloride (0.9 % Sodium Chloride Flush 3 Ml Syringe) 3 ml IVFLUSH QSHIFT [facility] Last Admin: 05/29/22 07:32 Dose: Not Given Documented By: KERVIN Non-Admin Reason: IV Running Labs CBC & Chem 7: 05/27/22 05:58 05/28/22 10:15 Labs: Laboratory Results - last 24 hr 05/28/22 05/28/22 05/28/22 10:15 10:15 11:38 Estim Creat Clear Calc 130.6 Estimated GFR > 60 POC Glucose 314 H Vancomycin Trough 4.7 L 05/28/22 05/28/22 05/29/22 15:54 19:44 07:37 Estim Creat Clear Calc Estimated GFR POC Glucose 322 H 302 H 410 H* Vancomycin Trough Assessment and Plan (1) HTN (hypertension): Status: Acute Plan 51M pmh obesity, opiate dependence, htn, DM, chronic hypoxic respiratory failure, PVD, hld, anxiety, presented with bilateral DFU with oozing bilateral lower extremity ulcers due to DM and PVD partially treated ID appreciated, now with picc, continue vanc, levaquin 6 weeks (end jun 07, 2022) opiate dependence with withdrawal methadone DM basal bolus insulin with correction, monitor poc chronic hypoxic respiratory failure on 2L home o2 out of o2 at home obesity weight loss htn amlodipine, clonidine mood disorder seroquel hld statin dvt prophylaxis - lovenox reason for continued hospitalization:awaiting placement Time Spent With Patient Time: Total time managing care of this patient today ____ minutes. Quality Stroke Does the patient have a stroke diagnosis?: No VTE Prior VTE?: No VTE Risk Level:: Medical - moderate - high VTE Device Contraindication: Treatment Not Indicated VTE Drug Contraindication: N/A - Med Ordered
[2022-05-29 09:41] LABS: Estimated Glomerular Filt Rate > 60
[2022-05-29] MEDS: QUEtiapine Fumarate 100 MG TABLET PO ×2 (10:46→21:16)
[2022-05-29 15:28] VITALS: BP 116/60; PULSE 64; RESP 18; TEMP 36.6; O2SAT 99
[2022-05-29 15:39] LABS: Vancomycin Trough 11.7 mcg/mL (10.0-20.0)
[2022-05-29] MEDS: 0.9 % Sodium Chloride Flush 3 ML SYRINGE IVFLUSH ×2 (16:50→21:15)
[2022-05-29 20:00] VITALS: BP 127/69; PULSE 69; RESP 20; TEMP 36.2; O2SAT 100
[2022-05-29] MEDS: Atorvastatin Calcium 40 MG TABLET PO (21:16)
[2022-05-29] MEDS: Insulin Glargine,Hum.rec.anlog 100 UNIT/ML 10 ML VIAL 60 UNIT SUBCUT (21:16)
[2022-05-30] MEDS: levoFLOXacin 750 MG TABLET PO (01:46)
[2022-05-30 04:00] VITALS: BP 133/81; PULSE 67; RESP 20; TEMP 36.3; O2SAT 99
[2022-05-30 06:41] LABS: Creatinine Clr Calc Pharmacy 126.3; Estimated Glomerular Filt Rate > 60
[2022-05-30 06:51] VITALS: BP 126/62; PULSE 69; RESP 18; TEMP 36.1; O2SAT 100
[2022-05-30] MEDS: Insulin Lispro 100 UNIT/ML 3 ML VIAL SUBCUT ×7 (07:54→21:08)
[2022-05-30] MEDS: Gabapentin 600 MG TABLET PO ×3 (07:55→21:05)
[2022-05-30] MEDS: 0.9 % Sodium Chloride Flush 3 ML SYRINGE IVFLUSH ×2 (07:55→23:30)
[2022-05-30] MEDS: amLODIPine Besylate 5 MG TABLET PO (07:55)
[2022-05-30] MEDS: cloNIDine HCL 0.2 MG TABLET PO ×3 (07:55→21:05)
[2022-05-30] MEDS: QUEtiapine Fumarate 100 MG TABLET PO ×2 (07:59→21:05)
[2022-05-30] MEDS: clonazePAM 1 MG TABLET PO ×2 (07:59→21:05)
[2022-05-30 08:27] LABS: Vancomycin Random 18.4 mcg/mL (15-20)
--- NOTE | 2022-05-30 09:03 | HO.PM.IMPN ---
Subjective Subjective Date of Service: 05/30/22 Interval History: cc: non healing dfu interval history:foot pain Respiratory Respiratory: Reports no additional respiratory complaints Gastrointestinal Gastrointestinal: Reports no additional gastrointestinal complaints Physical Exam Vital Signs: Vital Signs: Last Vital Signs Temp 97 F 05/30/22 06:51 Pulse 69 05/30/22 06:51 Resp 18 05/30/22 06:51 BP 126/62 05/30/22 06:51 Pulse Ox 100 05/30/22 06:51 O2 Del Method 05/30/22 06:51 O2 Flow Rate 2 05/30/22 04:00 BMI result Body Mass Index 34.2 Const: General: cooperative HEENT: Head: Yes normal to inspection Face and sinus: Yes normal facial exam Mouth: Normal oral and palatal mucosa present Teeth and gingiva: dentition normal Eyes: General: appearance normal, both eyes and all related structures Pupils: Equal, round and reactive pupils present Resp: Effort & Inspection: normal respiratory effort Cardio: Rate: regular rate Rhythm: regular rhythm GI: Palpation (GI): Soft to palpation and nontender : General: Yes no CVA tenderness Back/Spine/Pelvis: Back: no CVA tenderness Skin: General skin exam: no rashes or lesions noted Neuro: General: moves all extremities Cranial nerves: Yes Equal, round and reactive pupils present Extrem: Other: two areas plantar right foot 1 cm rounded and open,no cellulitis or purulence one area lateral left foot eschar open area no cellulitis or purulence General: Yes normal to inspection Psych: Appearance: grossly normal Objective Data Active Medications Amlodipine Besylate (Amlodipine Besylate 5 Mg Tablet) 5 mg PO DAILY [facility]; Protocol Last Admin: 05/30/22 07:55 Dose: 5 mg Documented By: EMMIE Atorvastatin Calcium (Atorvastatin Calcium 40 Mg Tablet) 40 mg PO BEDTIME [facility] Last Admin: 05/29/22 21:16 Dose: 40 mg Documented By: ANDREW Clonazepam (Clonazepam 1 Mg Tablet) 1 mg PO BID PRN PRN Reason: anxiety Last Admin: 05/30/22 07:59 Dose: 1 mg Documented By: EMMIE Clonidine HCl (Clonidine Hcl 0.2 Mg Tablet) 0.2 mg PO TID [facility]; Protocol Last Admin: 05/30/22 07:55 Dose: 0.2 mg Documented By: EMMIE Dextrose (Dextrose 50 % 25 Gm/50 Ml Syringe) 25 gm IVPUSH Q15M PRN; Protocol PRN Reason: per Hypoglycemia Standing Ord. Enoxaparin Sodium (Enoxaparin Sodium 40 Mg/0.4 Ml Syringe) 40 mg SUBCUT Q24H [facility] Last Admin: 05/30/22 07:55 Dose: Not Given Documented By: EMMIE Non-Admin Reason: Patient Refused Furosemide (Furosemide 40 Mg Tablet) 40 mg PO BIDWM [facility]; Protocol Last Admin: 05/30/22 07:55 Dose: 40 mg Documented By: EMMIE Gabapentin (Gabapentin 600 Mg Tablet) 600 mg PO TID [facility] Last Admin: 05/30/22 07:55 Dose: 600 mg Documented By: EMMIE Glucose (Glucose Gel 15 Gm Gel..Gram.) 15 gm PO Q15M PRN; Protocol PRN Reason: per Hypoglycemia Standing Ord. Insulin Glargine (Insulin Glargine,Hum.Rec.Anlog 100 Unit/Ml 10 Ml Vial) 60 unit SUBCUT BEDTIME [facility] Last Admin: 05/29/22 21:16 Dose: 60 unit Documented By: ANDREW Insulin Human Lispro (Insulin Lispro 100 Unit/Ml 3 Ml Vial) 0 unit SUBCUT QIDACHS [facility]; Protocol Last Admin: 05/30/22 07:54 Dose: 8 unit Documented By: EMMIE Insulin Human Lispro (Insulin Lispro 100 Unit/Ml 3 Ml Vial) 5 unit SUBCUT TIDAC [facility] Last Admin: 05/30/22 07:55 Dose: 5 unit Documented By: EMMIE Levofloxacin (Levofloxacin 750 Mg Tablet) 750 mg PO Q24H [facility] Last Admin: 05/30/22 01:46 Dose: 750 mg Documented By: ANDREW Methadone HCl (Methadone Hcl 20 Mg/2 Ml Oral.Conc) 75 mg PO DAILY [facility] Pharmacy Consult (Consult Rx Vancomycin Dosing) 1 each MISCELLANE DAILY PRN PRN Reason: Consult order Quetiapine Fumarate (Quetiapine Fumarate 100 Mg Tablet) 100 mg PO BID@1100,2100 [facility] Last Admin: 05/30/22 07:59 Dose: 100 mg Documented By: EMMIE Sodium Chloride (0.9 % Sodium Chloride Flush 3 Ml Syringe) 3 ml IVFLUSH QSHIFT [facility] Last Admin: 05/30/22 07:55 Dose: 3 ml Documented By: EMMIE Labs CBC & Chem 7: 05/27/22 05:58 05/30/22 05:55 Labs: Laboratory Results - last 24 hr 05/29/22 05/29/22 05/29/22 08:39 11:31 14:52 Estim Creat Clear Calc 121.0 Estimated GFR > 60 POC Glucose 311 H Vancomycin Trough 11.7 Random Vancomycin 05/29/22 05/29/22 05/30/22 15:51 21:08 05:55 Estim Creat Clear Calc 126.3 Estimated GFR > 60 POC Glucose 327 H 308 H Vancomycin Trough Random Vancomycin 05/30/22 05/30/22 06:49 07:50 Estim Creat Clear Calc Estimated GFR POC Glucose 349 H Vancomycin Trough Random Vancomycin 18.4 Assessment and Plan (1) HTN (hypertension): Status: Acute Plan 51M pmh obesity, opiate dependence, htn, DM, chronic hypoxic respiratory failure, PVD, hld, anxiety, presented with bilateral DFU with oozing bilateral lower extremity ulcers due to DM and PVD partially treated ID appreciated, now with picc, continue vanc, levaquin 6 weeks (end jun 07, 2022) opiate dependence with withdrawal methadone DM basal bolus insulin with correction, monitor poc chronic hypoxic respiratory failure on 2L home o2 out of o2 at home obesity weight loss htn amlodipine, clonidine mood disorder seroquel hld statin dvt prophylaxis - lovenox reason for continued hospitalization:awaiting placement Time Spent With Patient Time: Total time managing care of this patient today ____ minutes. Quality Stroke Does the patient have a stroke diagnosis?: No VTE Prior VTE?: No VTE Risk Level:: Medical - moderate - high VTE Device Contraindication: Treatment Not Indicated VTE Drug Contraindication: N/A - Med Ordered
--- NOTE | 2022-05-30 09:18 | HE.PHANOTE ---
Addendum entered by Alisia Shrestha RPh 06/01/22 10:07: RE: susie Original Note: re methadone changing dose back to q12h dosing starting at 1100. next level due 05/31 @0900
[2022-05-30 15:17] VITALS: BP 134/68; PULSE 65; RESP 18; TEMP 37.1; O2SAT 98
[2022-05-30 19:33] VITALS: BP 125/77; PULSE 72; RESP 18; TEMP 36.8; O2SAT 98
[2022-05-30] MEDS: Atorvastatin Calcium 40 MG TABLET PO (21:05)
[2022-05-30] MEDS: Insulin Glargine,Hum.rec.anlog 100 UNIT/ML 10 ML VIAL 60 UNIT SUBCUT (21:07)
[2022-05-31] MEDS: levoFLOXacin 750 MG TABLET PO (02:55)
[2022-05-31 04:00] VITALS: BP 111/53; PULSE 71; RESP 17; TEMP 36.7; O2SAT 94
[2022-05-31 06:17] LABS: Creatinine Clr Calc Pharmacy 122.3; Estimated Glomerular Filt Rate > 60
[2022-05-31 07:23] LABS: Glucose, Whole Blood 365 mg/dL (60-115)
[2022-05-31 07:24] VITALS: BP 126/75; PULSE 67; RESP 18; TEMP 36.2; O2SAT 100
[2022-05-31] MEDS: methADONE HCl 20 MG/2 ML ORAL.CONC 75 MG PO (07:49)
[2022-05-31] MEDS: Insulin Lispro 100 UNIT/ML 3 ML VIAL SUBCUT ×7 (07:49→20:19)
[2022-05-31] MEDS: QUEtiapine Fumarate 100 MG TABLET PO ×2 (07:50→20:13)
[2022-05-31] MEDS: Gabapentin 600 MG TABLET PO ×3 (07:50→20:13)
[2022-05-31] MEDS: amLODIPine Besylate 5 MG TABLET PO (07:50)
[2022-05-31] MEDS: cloNIDine HCL 0.2 MG TABLET PO ×3 (07:50→20:13)
[2022-05-31] MEDS: clonazePAM 1 MG TABLET PO ×2 (07:50→20:14)
[2022-05-31] MEDS: 0.9 % Sodium Chloride Flush 3 ML SYRINGE IVFLUSH ×3 (07:51→20:13)
--- NOTE | 2022-05-31 08:42 | P.PNIM_ITS ---
Subjective Subjective Date of Service: 05/31/22 Interval History: cc: non healing dfu interval history:foot pain Respiratory Respiratory: Reports no additional respiratory complaints Gastrointestinal Gastrointestinal: Reports no additional gastrointestinal complaints Physical Exam Vital Signs: Vital Signs: Last Vital Signs Temp 97.1 F 05/31/22 07:24 Pulse 67 05/31/22 07:24 Resp 18 05/31/22 07:24 BP 126/75 05/31/22 07:24 Pulse Ox 100 05/31/22 07:24 O2 Del Method 05/31/22 07:24 O2 Flow Rate 2.0 05/31/22 07:24 BMI result Body Mass Index 34.2 Const: General: cooperative HEENT: Head: Yes normal to inspection Face and sinus: Yes normal facial exam Mouth: Normal oral and palatal mucosa present Teeth and gingiva: dentition normal Eyes: General: appearance normal, both eyes and all related structures Pupils: Equal, round and reactive pupils present Resp: Effort & Inspection: normal respiratory effort Cardio: Rate: regular rate Rhythm: regular rhythm GI: Palpation (GI): Soft to palpation and nontender : General: Yes no CVA tenderness Back/Spine/Pelvis: Back: no CVA tenderness Skin: General skin exam: no rashes or lesions noted Neuro: General: moves all extremities Cranial nerves: Yes Equal, round and reactive pupils present Extrem: Other: two areas plantar right foot 1 cm rounded and open,no cellulitis or purulence one area lateral left foot eschar open area no cellulitis or purulence General: Yes normal to inspection Psych: Appearance: grossly normal Objective Data Active Medications Amlodipine Besylate (Amlodipine Besylate 5 Mg Tablet) 5 mg PO DAILY [facility]; Protocol Last Admin: 05/31/22 07:50 Dose: 5 mg Documented By: EMMIE Atorvastatin Calcium (Atorvastatin Calcium 40 Mg Tablet) 40 mg PO BEDTIME [facility] Last Admin: 05/30/22 21:05 Dose: 40 mg Documented By: AARTI Clonazepam (Clonazepam 1 Mg Tablet) 1 mg PO BID PRN PRN Reason: anxiety Last Admin: 05/31/22 07:50 Dose: 1 mg Documented By: EMMIE Clonidine HCl (Clonidine Hcl 0.2 Mg Tablet) 0.2 mg PO TID [facility]; Protocol Last Admin: 05/31/22 07:50 Dose: 0.2 mg Documented By: EMMIE Dextrose (Dextrose 50 % 25 Gm/50 Ml Syringe) 25 gm IVPUSH Q15M PRN; Protocol PRN Reason: per Hypoglycemia Standing Ord. Enoxaparin Sodium (Enoxaparin Sodium 40 Mg/0.4 Ml Syringe) 40 mg SUBCUT Q24H [facility] Last Admin: 05/31/22 07:51 Dose: Not Given Documented By: EMMIE Non-Admin Reason: Patient Refused Furosemide (Furosemide 40 Mg Tablet) 40 mg PO BIDWM [facility]; Protocol Last Admin: 05/31/22 07:51 Dose: Not Given Documented By: EMMIE Non-Admin Reason: Patient Refused Gabapentin (Gabapentin 600 Mg Tablet) 600 mg PO TID [facility] Last Admin: 05/31/22 07:50 Dose: 600 mg Documented By: EMMIE Glucose (Glucose Gel 15 Gm Gel..Gram.) 15 gm PO Q15M PRN; Protocol PRN Reason: per Hypoglycemia Standing Ord. Vancomycin HCl 1,250 mg/ (Sodium Chloride) 250 mls @ 166.667 mls/hr IV Q12H [facility] Last Infusion: 05/31/22 01:04 Dose: 0 mls/hr Documented By: HUY Insulin Glargine (Insulin Glargine,Hum.Rec.Anlog 100 Unit/Ml 10 Ml Vial) 60 unit SUBCUT BEDTIME [facility] Last Admin: 05/30/22 21:07 Dose: 60 unit Documented By: AARTI Insulin Human Lispro (Insulin Lispro 100 Unit/Ml 3 Ml Vial) 0 unit SUBCUT QIDACHS [facility]; Protocol Last Admin: 05/31/22 07:49 Dose: 10 unit Documented By: EMMIE Insulin Human Lispro (Insulin Lispro 100 Unit/Ml 3 Ml Vial) 5 unit SUBCUT TIDAC [facility] Last Admin: 05/31/22 07:49 Dose: 5 unit Documented By: EMMIE Levofloxacin (Levofloxacin 750 Mg Tablet) 750 mg PO Q24H [facility] Last Admin: 05/31/22 02:55 Dose: 750 mg Documented By: HUY Methadone HCl (Methadone Hcl 20 Mg/2 Ml Oral.Conc) 75 mg PO DAILY [facility] Last Admin: 05/31/22 07:49 Dose: 75 mg Documented By: EMMIE Pharmacy Consult (Consult Rx Vancomycin Dosing) 1 each MISCELLANE DAILY PRN PRN Reason: Consult order Quetiapine Fumarate (Quetiapine Fumarate 100 Mg Tablet) 100 mg PO BID@1100,2100 [facility] Last Admin: 05/31/22 07:50 Dose: 100 mg Documented By: EMMIE Sodium Chloride (0.9 % Sodium Chloride Flush 3 Ml Syringe) 3 ml IVFLUSH QSHIFT [facility] Last Admin: 05/31/22 07:51 Dose: 3 ml Documented By: EMMIE Labs CBC & Chem 7: 05/27/22 05:58 05/31/22 05:18 Labs: Laboratory Results - last 24 hr 05/30/22 05/30/22 05/30/22 11:00 15:19 19:36 Estim Creat Clear Calc Estimated GFR POC Glucose 391 H* 323 H 304 H 05/31/22 05/31/22 05:18 07:18 Estim Creat Clear Calc 122.3 Estimated GFR > 60 POC Glucose 365 H* Assessment and Plan (1) HTN (hypertension): Status: Acute Plan 51M pmh obesity, opiate dependence, htn, DM, chronic hypoxic respiratory failure, PVD, hld, anxiety, presented with bilateral DFU with oozing bilateral lower extremity ulcers due to DM and PVD partially treated ID appreciated, now with picc, continue vanc, levaquin 6 weeks (end jun 07, 2022) opiate dependence with withdrawal methadone DM basal bolus insulin with correction, monitor poc chronic hypoxic respiratory failure on 2L home o2 out of o2 at home obesity weight loss htn amlodipine, clonidine mood disorder seroquel hld statin dvt prophylaxis - lovenox reason for continued hospitalization:awaiting placement Time Spent With Patient Time: Total time managing care of this patient today ____ minutes. Quality Stroke Does the patient have a stroke diagnosis?: No VTE Prior VTE?: No VTE Risk Level:: Medical - moderate - high VTE Device Contraindication: Treatment Not Indicated VTE Drug Contraindication: N/A - Med Ordered
[2022-05-31 09:48] LABS: Vancomycin Random 13.2 mcg/mL (15-20)
--- NOTE | 2022-05-31 09:59 | HE.PHANOTE ---
Vancomycin Dosing Addendum Patients level came back today at 13.2 mg/L. Patient was recently switched to 1250mg, I suspect the level to increase. Will continue 1250 mg Q12H and will get level 06/01 @0900 to ensure safety vs efficacy. Patients predicted AUC 545 mg/L/hr.
[2022-05-31 11:24] LABS: Glucose, Whole Blood 355 mg/dL (60-115)
[2022-05-31 15:46] VITALS: BP 129/67; PULSE 67; RESP 16; TEMP 36.3; O2SAT 99
[2022-05-31 16:25] LABS: Glucose, Whole Blood 261 mg/dL (60-115)
[2022-05-31 19:21] VITALS: BP 123/67; PULSE 69; RESP 18; TEMP 36.5; O2SAT 100
[2022-05-31 19:36] LABS: Glucose, Whole Blood 369 mg/dL (60-115)
[2022-05-31] MEDS: Atorvastatin Calcium 40 MG TABLET PO (20:18)
[2022-05-31] MEDS: Insulin Glargine,Hum.rec.anlog 100 UNIT/ML 10 ML VIAL 60 UNIT SUBCUT (20:19)
[2022-06-01] MEDS: levoFLOXacin 750 MG TABLET PO (01:24)
[2022-06-01 07:32] LABS: Glucose, Whole Blood 294 mg/dL (60-115)
[2022-06-01 07:34] VITALS: BP 127/73; PULSE 64; RESP 17; TEMP 36.8; O2SAT 100
[2022-06-01] MEDS: Gabapentin 600 MG TABLET PO ×3 (07:41→20:20)
[2022-06-01] MEDS: cloNIDine HCL 0.2 MG TABLET PO ×3 (07:41→20:20)
[2022-06-01] MEDS: amLODIPine Besylate 5 MG TABLET PO (07:41)
[2022-06-01] MEDS: Insulin Lispro 100 UNIT/ML 3 ML VIAL SUBCUT ×7 (07:42→20:19)
[2022-06-01] MEDS: methADONE HCl 20 MG/2 ML ORAL.CONC 75 MG PO (07:42)
[2022-06-01] MEDS: 0.9 % Sodium Chloride Flush 3 ML SYRINGE IVFLUSH ×3 (07:42→20:20)
[2022-06-01] MEDS: QUEtiapine Fumarate 100 MG TABLET PO ×2 (07:50→20:20)
[2022-06-01] MEDS: clonazePAM 1 MG TABLET PO ×2 (07:50→20:20)
--- NOTE | 2022-06-01 08:16 | HO.PM.IMPN ---
Subjective Subjective Date of Service: 06/01/22 Interval History: cc: non healing dfu interval history:foot pain is controlled, no other complaint Review of Systems no fevre, no chills Physical Exam Vital Signs: Vital Signs: Last Vital Signs Temp 98.3 F 06/01/22 07:34 Pulse 64 06/01/22 07:34 Resp 17 06/01/22 07:34 BP 127/73 06/01/22 07:34 Pulse Ox 100 06/01/22 07:34 O2 Del Method 06/01/22 07:34 O2 Flow Rate 2.0 06/01/22 07:34 BMI result Body Mass Index 34.2 Const: Other: General: AO X 3, no acute distress Resp: CTA bilateral CVS: S1,S2,RRR GI: +BS, NT, no distention Skin: ulcers of feet as documented elsewhere Neuro: motor grossly intact Psych: appropriate affect Objective Data Active Medications Amlodipine Besylate (Amlodipine Besylate 5 Mg Tablet) 5 mg PO DAILY [facility]; Protocol Last Admin: 06/01/22 07:41 Dose: 5 mg Documented By: EMMIE Atorvastatin Calcium (Atorvastatin Calcium 40 Mg Tablet) 40 mg PO BEDTIME [facility] Last Admin: 05/31/22 20:18 Dose: 40 mg Documented By: JOHN Clonazepam (Clonazepam 1 Mg Tablet) 1 mg PO BID PRN PRN Reason: anxiety Last Admin: 06/01/22 07:50 Dose: 1 mg Documented By: EMMIE Clonidine HCl (Clonidine Hcl 0.2 Mg Tablet) 0.2 mg PO TID [facility]; Protocol Last Admin: 06/01/22 07:41 Dose: 0.2 mg Documented By: EMMIE Dextrose (Dextrose 50 % 25 Gm/50 Ml Syringe) 25 gm IVPUSH Q15M PRN; Protocol PRN Reason: per Hypoglycemia Standing Ord. Enoxaparin Sodium (Enoxaparin Sodium 40 Mg/0.4 Ml Syringe) 40 mg SUBCUT Q24H [facility] Last Admin: 06/01/22 07:43 Dose: Not Given Documented By: EMMIE Non-Admin Reason: Patient Refused Furosemide (Furosemide 40 Mg Tablet) 40 mg PO BIDWM [facility]; Protocol Last Admin: 06/01/22 07:43 Dose: Not Given Documented By: EMMIE Non-Admin Reason: Patient Refused Gabapentin (Gabapentin 600 Mg Tablet) 600 mg PO TID [facility] Last Admin: 06/01/22 07:41 Dose: 600 mg Documented By: EMMIE Glucose (Glucose Gel 15 Gm Gel..Gram.) 15 gm PO Q15M PRN; Protocol PRN Reason: per Hypoglycemia Standing Ord. Vancomycin HCl 1,250 mg/ (Sodium Chloride) 250 mls @ 166.667 mls/hr IV Q12H [facility] Last Infusion: 06/01/22 00:39 Dose: 0 mls/hr Documented By: JOHN Insulin Glargine (Insulin Glargine,Hum.Rec.Anlog 100 Unit/Ml 10 Ml Vial) 60 unit SUBCUT BEDTIME [facility] Last Admin: 05/31/22 20:19 Dose: 60 unit Documented By: JOHN Insulin Human Lispro (Insulin Lispro 100 Unit/Ml 3 Ml Vial) 0 unit SUBCUT QIDACHS [facility]; Protocol Last Admin: 06/01/22 07:42 Dose: 6 unit Documented By: EMMIE Insulin Human Lispro (Insulin Lispro 100 Unit/Ml 3 Ml Vial) 5 unit SUBCUT TIDAC [facility] Last Admin: 06/01/22 07:42 Dose: 5 unit Documented By: EMMIE Levofloxacin (Levofloxacin 750 Mg Tablet) 750 mg PO Q24H [facility] Last Admin: 06/01/22 01:24 Dose: 750 mg Documented By: JOHN Methadone HCl (Methadone Hcl 20 Mg/2 Ml Oral.Conc) 75 mg PO DAILY [facility] Last Admin: 06/01/22 07:42 Dose: 75 mg Documented By: EMMIE Pharmacy Consult (Consult Rx Vancomycin Dosing) 1 each MISCELLANE DAILY PRN PRN Reason: Consult order Quetiapine Fumarate (Quetiapine Fumarate 100 Mg Tablet) 100 mg PO BID@1100,2100 [facility] Last Admin: 06/01/22 07:50 Dose: 100 mg Documented By: EMMIE Sodium Chloride (0.9 % Sodium Chloride Flush 3 Ml Syringe) 3 ml IVFLUSH QSHIFT [facility] Last Admin: 06/01/22 07:42 Dose: 3 ml Documented By: EMMIE Labs CBC & Chem 7: 06/01/22 08:54 06/01/22 08:54 Labs: Laboratory Results - last 24 hr 05/31/22 05/31/22 05/31/22 09:13 11:21 15:48 POC Glucose 355 H* 261 H Random Vancomycin 13.2 L 05/31/22 06/01/22 19:23 07:23 POC Glucose 369 H* 294 H Random Vancomycin Assessment and Plan (1) Acute osteomyelitis: Status: Acute Plan 51M pmh obesity, opiate dependence, htn, DM, chronic hypoxic respiratory failure, PVD, hld, anxiety, presented with bilateral DFU with oozing bilateral lower extremity ulcers due to DM and PVD partially treated ID appreciated, now with picc, continue vanc, levaquin 6 weeks (end jun 07, 2022) opiate dependence with withdrawal methadone DM basal bolus insulin with correction, monitor poc chronic hypoxic respiratory failure on 2L home o2 out of o2 at home obesity weight loss htn amlodipine, clonidine mood disorder seroquel hld statin dvt prophylaxis - lovenox reason for continued hospitalization:awaiting placement Time Spent With Patient Time: Total time managing care of this patient today ____ minutes. Quality Stroke Does the patient have a stroke diagnosis?: No VTE Prior VTE?: No VTE Risk Level:: Medical - moderate - high VTE Device Contraindication: Treatment Not Indicated VTE Drug Contraindication: N/A - Med Ordered
[2022-06-01 09:00] LABS: Hematocrit 34.2 % (42.0-52.0); Hemoglobin 11.2 g/dl (14.0-18.0); Mean Corpuscular HGB Conc 32.7 g/dl (31.0-36.0); Mean Corpuscular Hemoglobin 27.4 pg (27.0-33.0); Mean Corpuscular Volume 83.6 fL (80.0-98.0); Mean Platelet Volume 9.7 fL (9.4-12.4); Platelet Count 101 X10*3/uL (160-400); Red Blood Count 4.09 X10*6/uL (4.60-5.80); Red Cell Distribution Width 14.8 % (11.0-16.0); White Blood Count 3.9 X10*3/uL (4.8-10.8)
[2022-06-01 09:34] LABS: Vancomycin Random 12.9 mcg/mL (15-20)
[2022-06-01 09:56] LABS: Anion Gap 13 (12-20); Blood Urea Nitrogen 17 mg/dL (9-16); Calcium 8.1 mg/dL (8.4-10.2); Carbon Dioxide 20 mmol/L (22-29); Chloride 105 mmol/L (96-108); Creatinine Clr Calc Pharmacy 147.1; Estimated Glomerular Filt Rate > 60; Glucose Fasting 305 mg/dL (60-99); Potassium 4.2 mmol/L (3.3-5.1); Sodium 134 mmol/L (135-145)
[2022-06-01 11:36] LABS: Glucose, Whole Blood 353 mg/dL (60-115)
--- NOTE | 2022-06-01 14:00 | P.CDIC_ITS ---
CDI Concurrent Query Documentation Clarification: PHYSICIAN'S DOCUMENTATION REQUEST Date of Query: 06/01/22 1401 Patient Name: Jamar Stephens Admit Date: 05/25/22 Dear Doctor, A review of the medical record indicates additional documentation may be needed. Please review below and update the documentation accordingly. Clinical Indicators: Is there a diagnosis that correlates with the findings below: Risk Factors/Clinical Indicators/Treatments Labs: POCs 05/31 Home medications: Insulin glargine 120 units at HS Insulin lispro 15 units subq TID Please clarify the following regarding Diabetes Mellitus (DM): Complications of DM: * Hyperglycemia * No complications of DM * Other complication ? please specify * Unable to determine Use of terms such as suspected, likely, concern for, or probable (associated with a specific diagnosis that is being evaluated, monitored, or treated as if it exists) are acceptable and can be coded in the inpatient setting, when documented at the time of discharge. Thank you, Tammi Patterson MS, RN, CCRN Extension: [phone] Please use your independent medical judgment in providing your response. THIS QUERY IS PART OF THE PERMANENT MEDICAL RECORD Provider Response: Other Other Diagnosis: Diabetes with hyperglycemia
--- NOTE | 2022-06-01 14:07 | MHC.CM.PN ---
per rounds pt ready for dc but has not been accepted AT any facilities
--- NOTE | 2022-06-01 14:39 | MHC.RECOVRN ---
This sports book writer met w/ patient, patient laying in bed, watching t.v, lights dim, blinds closed. Patient states feels fine in regard to Methadone, t/w reviewed to increase tomorrow to 80mg. Pt response you're only gonna up by 5mg patient stopped speaking to this sports book writer at that point.
[2022-06-01 15:16] VITALS: BP 122/65; PULSE 64; RESP 18; TEMP 36.4; O2SAT 98
[2022-06-01 16:36] LABS: Glucose, Whole Blood 386 mg/dL (60-115)
--- NOTE | 2022-06-01 18:04 | PC.NURSE ---
Blood sugars running 300's. Patient non compliant with diet. Asking for a lot of snacks. Dr. Alberto aware. Insulin given as scheduled. No change in medications at present.
[2022-06-01 20:01] LABS: Glucose, Whole Blood 328 mg/dL (60-115)
[2022-06-01] MEDS: Insulin Glargine,Hum.rec.anlog 100 UNIT/ML 10 ML VIAL 60 UNIT SUBCUT (20:18)
[2022-06-01] MEDS: Atorvastatin Calcium 40 MG TABLET PO (20:20)
[2022-06-01 21:47] VITALS: BP 120/67; PULSE 69; RESP 18; TEMP 36.4; O2SAT 99
[2022-06-02] MEDS: levoFLOXacin 750 MG TABLET PO (02:12)
[2022-06-02 05:32] VITALS: BP 141/78; PULSE 72; RESP 18; TEMP 37; O2SAT 97
--- NOTE | 2022-06-02 06:39 | PC.NURSE ---
Pt's dressings to bilateral diabetic foot ulcers came off during the battery container finishing hand. This nurse offered to do a new dressing change to bilateral foot ulcers, but pt refused care. Pt was non compliant with any help given by this nurse, but did took [facility] meds as ordered. Will continue to monitor pt's bilateral diabetic foot ulcers.
[2022-06-02 07:26] VITALS: BP 133/68; PULSE 70; RESP 16; TEMP 36.7; O2SAT 97
[2022-06-02 07:50] LABS: Glucose, Whole Blood 268 mg/dL (60-115)
[2022-06-02] MEDS: Insulin Lispro 100 UNIT/ML 3 ML VIAL SUBCUT ×6 (08:21→21:34)
[2022-06-02] MEDS: 0.9 % Sodium Chloride Flush 3 ML SYRINGE IVFLUSH ×2 (08:22→16:31)
[2022-06-02] MEDS: methADONE HCl 20 MG/2 ML ORAL.CONC 85 MG PO (08:22)
[2022-06-02] MEDS: QUEtiapine Fumarate 100 MG TABLET PO ×2 (08:23→21:34)
[2022-06-02] MEDS: Furosemide 40 MG TABLET PO (08:23)
[2022-06-02] MEDS: clonazePAM 1 MG TABLET PO ×2 (08:23→21:35)
[2022-06-02] MEDS: Gabapentin 600 MG TABLET PO ×3 (08:23→21:34)
[2022-06-02] MEDS: amLODIPine Besylate 5 MG TABLET PO (08:23)
[2022-06-02] MEDS: cloNIDine HCL 0.2 MG TABLET PO ×3 (08:23→21:34)
[2022-06-02 11:21] LABS: Creatinine Clr Calc Pharmacy 123.6; Estimated Glomerular Filt Rate > 60
[2022-06-02 11:22] LABS: Glucose, Whole Blood 306 mg/dL (60-115)
--- NOTE | 2022-06-02 12:15 | HO.PM.IMPN ---
Subjective Subjective Date of Service: 06/02/22 Interval History: cc: non healing dfu interval history:foot pain is controlled, no new complaint Physical Exam Vital Signs: Vital Signs: Last Vital Signs Temp 98.0 F 06/02/22 07:26 Pulse 70 06/02/22 07:26 Resp 16 06/02/22 07:26 BP 133/68 06/02/22 07:26 Pulse Ox 97 06/02/22 07:26 O2 Del Method 06/02/22 07:26 O2 Flow Rate 2 06/02/22 05:32 BMI result Body Mass Index 34.2 Const: Other: General: AO X 3, no acute distress Resp: CTA bilateral CVS: S1,S2,RRR GI: +BS, NT, no distention Skin: ulcers of feet as documented elsewhere Neuro: motor grossly intact Psych: appropriate affect Objective Data Active Medications Amlodipine Besylate (Amlodipine Besylate 5 Mg Tablet) 5 mg PO DAILY [facility]; Protocol Last Admin: 06/02/22 08:23 Dose: 5 mg Documented By: SOWMYA Atorvastatin Calcium (Atorvastatin Calcium 40 Mg Tablet) 40 mg PO BEDTIME [facility] Last Admin: 06/01/22 20:20 Dose: 40 mg Documented By: LILY Clonazepam (Clonazepam 1 Mg Tablet) 1 mg PO BID PRN PRN Reason: anxiety Last Admin: 06/02/22 08:23 Dose: 1 mg Documented By: SOWMYA Clonidine HCl (Clonidine Hcl 0.2 Mg Tablet) 0.2 mg PO TID [facility]; Protocol Last Admin: 06/02/22 08:23 Dose: 0.2 mg Documented By: SOWMYA Dextrose (Dextrose 50 % 25 Gm/50 Ml Syringe) 25 gm IVPUSH Q15M PRN; Protocol PRN Reason: per Hypoglycemia Standing Ord. Enoxaparin Sodium (Enoxaparin Sodium 40 Mg/0.4 Ml Syringe) 40 mg SUBCUT Q24H [facility] Last Admin: 06/02/22 08:26 Dose: Not Given Documented By: SOWMYA Non-Admin Reason: Patient Refused Furosemide (Furosemide 40 Mg Tablet) 40 mg PO BIDWM [facility]; Protocol Last Admin: 06/02/22 08:23 Dose: 40 mg Documented By: SOWMYA Gabapentin (Gabapentin 600 Mg Tablet) 600 mg PO TID [facility] Last Admin: 06/02/22 08:23 Dose: 600 mg Documented By: SOWMYA Glucose (Glucose Gel 15 Gm Gel..Gram.) 15 gm PO Q15M PRN; Protocol PRN Reason: per Hypoglycemia Standing Ord. Vancomycin HCl 1,250 mg/ (Sodium Chloride) 250 mls @ 166.667 mls/hr IV Q12H [facility] Last Admin: 06/02/22 10:50 Dose: 166.67 mls/hr Documented By: SOWMYA Insulin Glargine (Insulin Glargine,Hum.Rec.Anlog 100 Unit/Ml 10 Ml Vial) 60 unit SUBCUT BEDTIME [facility] Last Admin: 06/01/22 20:18 Dose: 60 unit Documented By: LILY Insulin Human Lispro (Insulin Lispro 100 Unit/Ml 3 Ml Vial) 0 unit SUBCUT QIDACHS [facility]; Protocol Last Admin: 06/02/22 11:38 Dose: 6 unit Documented By: SOWMYA Insulin Human Lispro (Insulin Lispro 100 Unit/Ml 3 Ml Vial) 5 unit SUBCUT TIDAC [facility] Last Admin: 06/02/22 11:39 Dose: 5 unit Documented By: SOWMYA Levofloxacin (Levofloxacin 750 Mg Tablet) 750 mg PO Q24H [facility] Last Admin: 06/02/22 02:12 Dose: 750 mg Documented By: LILY Methadone HCl (Methadone Hcl 20 Mg/2 Ml Oral.Conc) 85 mg PO DAILY [facility] Last Admin: 06/02/22 08:22 Dose: 85 mg Documented By: SOWMYA Pharmacy Consult (Consult Rx Vancomycin Dosing) 1 each MISCELLANE DAILY PRN PRN Reason: Consult order Quetiapine Fumarate (Quetiapine Fumarate 100 Mg Tablet) 100 mg PO BID@1100,2100 [facility] Last Admin: 06/02/22 08:23 Dose: 100 mg Documented By: SOWMYA Sodium Chloride (0.9 % Sodium Chloride Flush 3 Ml Syringe) 3 ml IVFLUSH QSHIFT [facility] Last Admin: 06/02/22 08:22 Dose: 3 ml Documented By: SOWMYA Labs CBC & Chem 7: 06/01/22 08:54 06/02/22 10:48 Labs: Laboratory Results - last 24 hr 06/01/22 06/01/22 06/02/22 16:11 19:57 07:30 Estim Creat Clear Calc Estimated GFR POC Glucose 386 H* 328 H 268 H 06/02/22 06/02/22 10:48 11:17 Estim Creat Clear Calc 123.6 Estimated GFR > 60 POC Glucose 306 H Assessment and Plan (1) Acute osteomyelitis: Status: Acute Plan 51M pmh obesity, opiate dependence, htn, DM, chronic hypoxic respiratory failure, PVD, hld, anxiety, presented with bilateral DFU with oozing bilateral lower extremity ulcers due to DM and PVD partially treated ID appreciated, now with picc, continue vanc, levaquin 6 weeks (end jun 07, 2022) opiate dependence with withdrawal methadone DM uncontrolled with hyperglycemia basal bolus insulin with correction, monitor poc chronic hypoxic respiratory failure on 2L home o2 out of o2 at home obesity weight loss htn amlodipine, clonidine mood disorder seroquel hld statin dvt prophylaxis - lovenox reason for continued hospitalization:awaiting placement, or DC 1/3 Time Spent With Patient Time: Total time managing care of this patient today ____ minutes. Quality Stroke Does the patient have a stroke diagnosis?: No VTE Prior VTE?: No VTE Risk Level:: Medical - moderate - high VTE Device Contraindication: Treatment Not Indicated VTE Drug Contraindication: N/A - Med Ordered
[2022-06-02 15:02] VITALS: BP 133/68; PULSE 70; RESP 19; TEMP 37.2; O2SAT 97
[2022-06-02 15:45] LABS: Glucose, Whole Blood 397 mg/dL (60-115)
--- NOTE | 2022-06-02 16:27 | MHC.RECOVRN ---
This telegraphic typewriter operator met w/ patient. Patient was in bed, watching t.v. This telegraphic typewriter operator asked about MTD, patient states feels like shit. Patient minimally interacted with this telegraphic typewriter operator.
[2022-06-02] MEDS: Insulin Lispro 100 UNIT/ML 3 ML VIAL 7 UNIT SUBCUT (16:31)
[2022-06-02 19:09] VITALS: BP 111/62; PULSE 64; RESP 18; TEMP 36.4; O2SAT 96
[2022-06-02 19:28] LABS: Glucose, Whole Blood 433 mg/dL (60-115)
[2022-06-02] MEDS: Insulin Glargine,Hum.rec.anlog 100 UNIT/ML 10 ML VIAL 70 UNIT SUBCUT (21:34)
[2022-06-02] MEDS: Atorvastatin Calcium 40 MG TABLET PO (21:34)
[2022-06-02 22:23] LABS: Vancomycin Trough 15.1 mcg/mL (10.0-20.0)
[2022-06-02 23:57] LABS: Glucose, Whole Blood 380 mg/dL (60-115)
[2022-06-03] MEDS: 0.9 % Sodium Chloride Flush 3 ML SYRINGE IVFLUSH ×4 (00:07→23:29)
[2022-06-03] MEDS: levoFLOXacin 750 MG TABLET PO (01:33)
[2022-06-03 07:45] VITALS: BP 142/83; PULSE 71; RESP 17; TEMP 36.4; O2SAT 100
[2022-06-03 07:45] LABS: Glucose, Whole Blood 284 mg/dL (60-115)
[2022-06-03] MEDS: Insulin Lispro 100 UNIT/ML 3 ML VIAL 7 UNIT SUBCUT ×3 (07:51→16:34)
[2022-06-03] MEDS: amLODIPine Besylate 5 MG TABLET PO (07:51)
[2022-06-03] MEDS: QUEtiapine Fumarate 100 MG TABLET PO ×2 (07:51→21:17)
[2022-06-03] MEDS: Insulin Lispro 100 UNIT/ML 3 ML VIAL SUBCUT ×4 (07:51→21:17)
[2022-06-03] MEDS: methADONE HCl 20 MG/2 ML ORAL.CONC 85 MG PO (07:52)
[2022-06-03] MEDS: cloNIDine HCL 0.2 MG TABLET PO ×3 (07:52→21:17)
[2022-06-03] MEDS: Gabapentin 600 MG TABLET PO ×3 (07:52→21:17)
[2022-06-03] MEDS: clonazePAM 1 MG TABLET PO ×2 (08:28→21:17)
[2022-06-03 09:35] LABS: Creatinine Clr Calc Pharmacy 111.7; Estimated Glomerular Filt Rate > 60
--- NOTE | 2022-06-03 10:24 | MHC.RECOVRN ---
Per patient request, methadone referral faxed to [facility] for patient to f/u upon d/c for continuation of MTD.
[2022-06-03 11:26] LABS: Glucose, Whole Blood 319 mg/dL (60-115)
--- NOTE | 2022-06-03 11:33 | HO.PM.IMPN ---
Subjective Subjective Date of Service: 06/03/22 Interval History: cc: non healing dfu interval history:doing well, foot healing well Review of Systems no fevre, no chills Physical Exam Vital Signs: Vital Signs: Last Vital Signs Temp 97.5 F 06/03/22 07:45 Pulse 71 06/03/22 07:45 Resp 17 06/03/22 07:45 BP 142/83 H 06/03/22 07:45 Pulse Ox 100 06/03/22 07:45 O2 Del Method 06/03/22 07:45 O2 Flow Rate 2.0 06/03/22 07:45 BMI result Body Mass Index 34.2 Const: Other: General: AO X 3, no acute distress Resp: CTA bilateral CVS: S1,S2,RRR GI: +BS, NT, no distention Skin: ulcers of feet is less obvious Neuro: motor grossly intact Psych: appropriate affect Objective Data Active Medications Amlodipine Besylate (Amlodipine Besylate 5 Mg Tablet) 5 mg PO DAILY [facility]; Protocol Last Admin: 06/03/22 07:51 Dose: 5 mg Documented By: SOWMYA Atorvastatin Calcium (Atorvastatin Calcium 40 Mg Tablet) 40 mg PO BEDTIME [facility] Last Admin: 06/02/22 21:34 Dose: 40 mg Documented By: JAMMIE Clonazepam (Clonazepam 1 Mg Tablet) 1 mg PO BID PRN PRN Reason: Anxiety Last Admin: 06/03/22 08:28 Dose: 1 mg Documented By: SOWMYA Clonidine HCl (Clonidine Hcl 0.2 Mg Tablet) 0.2 mg PO TID [facility]; Protocol Last Admin: 06/03/22 07:52 Dose: 0.2 mg Documented By: SOWMYA Dextrose (Dextrose 50 % 25 Gm/50 Ml Syringe) 25 gm IVPUSH Q15M PRN; Protocol PRN Reason: per Hypoglycemia Standing Ord. Enoxaparin Sodium (Enoxaparin Sodium 40 Mg/0.4 Ml Syringe) 40 mg SUBCUT Q24H [facility] Last Admin: 06/03/22 07:57 Dose: Not Given Documented By: SOWMYA Non-Admin Reason: Patient Refused Furosemide (Furosemide 40 Mg Tablet) 40 mg PO BIDWM [facility]; Protocol Last Admin: 06/03/22 07:57 Dose: Not Given Documented By: SOWMYA Non-Admin Reason: Patient Refused Gabapentin (Gabapentin 600 Mg Tablet) 600 mg PO TID [facility] Last Admin: 06/03/22 07:52 Dose: 600 mg Documented By: SOWMYA Glucose (Glucose Gel 15 Gm Gel..Gram.) 15 gm PO Q15M PRN; Protocol PRN Reason: per Hypoglycemia Standing Ord. Vancomycin HCl 1,250 mg/ (Sodium Chloride) 250 mls @ 166.667 mls/hr IV Q12H [facility] Last Admin: 06/03/22 10:12 Dose: 166.67 mls/hr Documented By: SOWMYA Insulin Glargine (Insulin Glargine,Hum.Rec.Anlog 100 Unit/Ml 10 Ml Vial) 70 unit SUBCUT BEDTIME [facility] Last Admin: 06/02/22 21:34 Dose: 70 unit Documented By: JAMMIE Insulin Human Lispro (Insulin Lispro 100 Unit/Ml 3 Ml Vial) 0 unit SUBCUT QIDACHS [facility]; Protocol Last Admin: 06/03/22 07:51 Dose: 6 unit Documented By: SOWMYA Insulin Human Lispro (Insulin Lispro 100 Unit/Ml 3 Ml Vial) 7 unit SUBCUT TIDAC [facility] Last Admin: 06/03/22 07:51 Dose: 7 unit Documented By: SOWMYA Levofloxacin (Levofloxacin 750 Mg Tablet) 750 mg PO Q24H [facility] Last Admin: 06/03/22 01:33 Dose: 750 mg Documented By: JAMMIE Methadone HCl (Methadone Hcl 20 Mg/2 Ml Oral.Conc) 85 mg PO DAILY [facility] Last Admin: 06/03/22 07:52 Dose: 85 mg Documented By: SOWMYA Pharmacy Consult (Consult Rx Vancomycin Dosing) 1 each MISCELLANE DAILY PRN PRN Reason: Consult order Quetiapine Fumarate (Quetiapine Fumarate 100 Mg Tablet) 100 mg PO BID@1100,2100 [facility] Last Admin: 06/03/22 07:51 Dose: 100 mg Documented By: SOWMYA Sodium Chloride (0.9 % Sodium Chloride Flush 3 Ml Syringe) 3 ml IVFLUSH QSHIFT [facility] Last Admin: 06/03/22 07:52 Dose: 3 ml Documented By: SOWMYA Labs CBC & Chem 7: 06/01/22 08:54 06/03/22 08:39 Labs: Laboratory Results - last 24 hr 06/02/22 06/02/22 06/02/22 15:37 19:23 21:01 Estim Creat Clear Calc Estimated GFR POC Glucose 397 H* 433 H* Vancomycin Trough 15.1 06/02/22 06/03/22 06/03/22 23:51 07:41 08:39 Estim Creat Clear Calc 111.7 Estimated GFR > 60 POC Glucose 380 H* 284 H Vancomycin Trough 06/03/22 11:20 Estim Creat Clear Calc Estimated GFR POC Glucose 319 H Vancomycin Trough Assessment and Plan (1) Acute osteomyelitis: Status: Acute Plan 51M pmh obesity, opiate dependence, htn, DM, chronic hypoxic respiratory failure, PVD, hld, anxiety, presented with bilateral DFU with oozing continue plan of care, no change bilateral lower extremity ulcers due to DM and PVD partially treated ID appreciated, now with picc, continue vanc, levaquin 6 weeks (end jun 07, 2022) opiate dependence with withdrawal methadone DM uncontrolled with hyperglycemia basal bolus insulin with correction, monitor poc chronic hypoxic respiratory failure on 2L home o2 out of o2 at home obesity weight loss htn amlodipine, clonidine mood disorder seroquel hld statin dvt prophylaxis - lovenox reason for continued hospitalization:awaiting placement, or DC 1/3 Time Spent With Patient Time: Total time managing care of this patient today ____ minutes. Quality Stroke Does the patient have a stroke diagnosis?: No VTE Prior VTE?: No VTE Risk Level:: Medical - moderate - high VTE Device Contraindication: Treatment Not Indicated VTE Drug Contraindication: N/A - Med Ordered
[2022-06-03 15:53] VITALS: BP 105/56; PULSE 70; RESP 19; TEMP 36.6; O2SAT 92
[2022-06-03 16:44] LABS: Glucose, Whole Blood 351 mg/dL (60-115)
[2022-06-03 20:00] VITALS: BP 119/62; PULSE 70; RESP 18; TEMP 36.2; O2SAT 98
[2022-06-03] MEDS: Atorvastatin Calcium 40 MG TABLET PO (21:17)
[2022-06-03] MEDS: Insulin Glargine,Hum.rec.anlog 100 UNIT/ML 10 ML VIAL 70 UNIT SUBCUT (21:18)
[2022-06-03 21:21] LABS: Glucose, Whole Blood 336 mg/dL (60-115)
[2022-06-04] MEDS: levoFLOXacin 750 MG TABLET PO (01:27)
[2022-06-04 03:22] VITALS: BP 131/69; PULSE 73; RESP 18; TEMP 35.8; O2SAT 95
[2022-06-04 05:00] LABS: Glucose, Whole Blood 281 mg/dL (60-115)
[2022-06-04 06:51] VITALS: BP 118/55; PULSE 77; RESP 18; TEMP 36; O2SAT 100
[2022-06-04 07:56] LABS: Glucose, Whole Blood 356 mg/dL (60-115)
[2022-06-04] MEDS: Insulin Lispro 100 UNIT/ML 3 ML VIAL SUBCUT ×4 (08:15→20:46)
[2022-06-04] MEDS: Gabapentin 600 MG TABLET PO ×3 (08:15→20:46)
[2022-06-04] MEDS: cloNIDine HCL 0.2 MG TABLET PO ×3 (08:15→20:46)
[2022-06-04] MEDS: clonazePAM 1 MG TABLET PO ×2 (08:15→20:51)
[2022-06-04] MEDS: Insulin Lispro 100 UNIT/ML 3 ML VIAL 7 UNIT SUBCUT ×3 (08:15→17:05)
[2022-06-04] MEDS: amLODIPine Besylate 5 MG TABLET PO (08:15)
[2022-06-04] MEDS: 0.9 % Sodium Chloride Flush 3 ML SYRINGE IVFLUSH ×3 (08:16→20:47)
[2022-06-04] MEDS: QUEtiapine Fumarate 100 MG TABLET PO ×2 (08:16→20:46)
[2022-06-04] MEDS: methADONE HCl 20 MG/2 ML ORAL.CONC 85 MG PO (08:16)
--- NOTE | 2022-06-04 08:28 | P.PNIM_ITS ---
Subjective Subjective Date of Service: 06/04/22 Interval History: cc: non healing dfu interval history:doing well, foot healing well, no new issues Review of Systems no fevre, no chills Physical Exam Vital Signs: Vital Signs: Last Vital Signs Temp 96.8 F 06/04/22 06:51 Pulse 77 06/04/22 06:51 Resp 18 06/04/22 06:51 BP 118/55 L 06/04/22 06:51 Pulse Ox 100 06/04/22 06:51 O2 Del Method 06/04/22 06:51 O2 Flow Rate 2 06/04/22 06:51 BMI result Body Mass Index 34.2 Const: Other: General: AO X 3, no acute distress Resp: CTA bilateral CVS: S1,S2,RRR GI: +BS, NT, no distention Skin: ulcers of feet is less obvious Neuro: motor grossly intact Psych: appropriate affect Objective Data Active Medications Amlodipine Besylate (Amlodipine Besylate 5 Mg Tablet) 5 mg PO DAILY [facility]; Protocol Last Admin: 06/04/22 08:15 Dose: 5 mg Documented By: EMMIE Atorvastatin Calcium (Atorvastatin Calcium 40 Mg Tablet) 40 mg PO BEDTIME [facility] Last Admin: 06/03/22 21:17 Dose: 40 mg Documented By: SOWMYA Clonazepam (Clonazepam 1 Mg Tablet) 1 mg PO BID PRN PRN Reason: Anxiety Last Admin: 06/04/22 08:15 Dose: 1 mg Documented By: EMMIE Clonidine HCl (Clonidine Hcl 0.2 Mg Tablet) 0.2 mg PO TID [facility]; Protocol Last Admin: 06/04/22 08:15 Dose: 0.2 mg Documented By: EMMIE Dextrose (Dextrose 50 % 25 Gm/50 Ml Syringe) 25 gm IVPUSH Q15M PRN; Protocol PRN Reason: per Hypoglycemia Standing Ord. Enoxaparin Sodium (Enoxaparin Sodium 40 Mg/0.4 Ml Syringe) 40 mg SUBCUT Q24H [facility] Last Admin: 06/04/22 08:16 Dose: Not Given Documented By: EMMIE Non-Admin Reason: Patient Refused Furosemide (Furosemide 40 Mg Tablet) 40 mg PO BIDWM [facility]; Protocol Last Admin: 06/04/22 08:16 Dose: Not Given Documented By: EMMIE Non-Admin Reason: Patient Refused Gabapentin (Gabapentin 600 Mg Tablet) 600 mg PO TID [facility] Last Admin: 06/04/22 08:15 Dose: 600 mg Documented By: EMMIE Glucose (Glucose Gel 15 Gm Gel..Gram.) 15 gm PO Q15M PRN; Protocol PRN Reason: per Hypoglycemia Standing Ord. Vancomycin HCl 1,250 mg/ (Sodium Chloride) 250 mls @ 166.667 mls/hr IV Q12H [facility] Last Infusion: 06/04/22 01:21 Dose: 0 mls/hr Documented By: WEDNI Insulin Glargine (Insulin Glargine,Hum.Rec.Anlog 100 Unit/Ml 10 Ml Vial) 70 unit SUBCUT BEDTIME [facility] Last Admin: 06/03/22 21:18 Dose: 70 unit Documented By: SOWMYA Insulin Human Lispro (Insulin Lispro 100 Unit/Ml 3 Ml Vial) 0 unit SUBCUT QIDACHS [facility]; Protocol Last Admin: 06/04/22 08:15 Dose: 10 unit Documented By: EMMIE Insulin Human Lispro (Insulin Lispro 100 Unit/Ml 3 Ml Vial) 7 unit SUBCUT TIDAC [facility] Last Admin: 06/04/22 08:15 Dose: 7 unit Documented By: EMMIE Methadone HCl (Methadone Hcl 20 Mg/2 Ml Oral.Conc) 85 mg PO DAILY [facility] Last Admin: 06/04/22 08:16 Dose: 85 mg Documented By: EMMIE Pharmacy Consult (Consult Rx Vancomycin Dosing) 1 each MISCELLANE DAILY PRN PRN Reason: Consult order Quetiapine Fumarate (Quetiapine Fumarate 100 Mg Tablet) 100 mg PO BID@1100,2100 [facility] Last Admin: 06/04/22 08:16 Dose: 100 mg Documented By: EMMIE Sodium Chloride (0.9 % Sodium Chloride Flush 3 Ml Syringe) 3 ml IVFLUSH QSHIFT [facility] Last Admin: 06/04/22 08:16 Dose: 3 ml Documented By: EMMIE Labs CBC & Chem 7: 06/01/22 08:54 06/03/22 08:39 Labs: Laboratory Results - last 24 hr 06/03/22 06/03/22 06/03/22 08:39 11:20 16:31 Estim Creat Clear Calc 111.7 Estimated GFR > 60 POC Glucose 319 H 351 H* 06/03/22 06/04/22 06/04/22 21:04 04:54 06:51 Estim Creat Clear Calc Estimated GFR POC Glucose 336 H 281 H 356 H* Assessment and Plan (1) Acute osteomyelitis: Status: Acute Plan 51M pmh obesity, opiate dependence, htn, DM, chronic hypoxic respiratory failure, PVD, hld, anxiety, presented with bilateral DFU with oozing continue plan of care, no change today bilateral lower extremity ulcers due to DM and PVD partially treated ID appreciated, now with picc, continue vanc, levaquin 6 weeks (end jun 07, 2022) opiate dependence with withdrawal methadone DM uncontrolled with hyperglycemia basal bolus insulin with correction, monitor poc chronic hypoxic respiratory failure on 2L home o2 out of o2 at home obesity weight loss htn amlodipine, clonidine mood disorder seroquel hld statin dvt prophylaxis - lovenox reason for continued hospitalization:awaiting placement, or DC 1/3 Time Spent With Patient Time: Total time managing care of this patient today ____ minutes. Quality Stroke Does the patient have a stroke diagnosis?: No VTE Prior VTE?: No VTE Risk Level:: Medical - moderate - high VTE Device Contraindication: Treatment Not Indicated VTE Drug Contraindication: N/A - Med Ordered
[2022-06-04 09:38] LABS: Creatinine Clr Calc Pharmacy 133.6; Estimated Glomerular Filt Rate > 60
[2022-06-04 09:43] LABS: Vancomycin Trough 12.9 mcg/mL (10.0-20.0)
[2022-06-04 11:03] LABS: Glucose, Whole Blood 223 mg/dL (60-115)
[2022-06-04 15:24] VITALS: BP 118/59; PULSE 71; RESP 16; TEMP 36.3; O2SAT 99
[2022-06-04 15:59] LABS: Glucose, Whole Blood 369 mg/dL (60-115)
[2022-06-04 19:40] VITALS: BP 114/64; PULSE 66; RESP 19; TEMP 36.1; O2SAT 98
[2022-06-04] MEDS: Atorvastatin Calcium 40 MG TABLET PO (20:46)
[2022-06-04] MEDS: Insulin Glargine,Hum.rec.anlog 100 UNIT/ML 10 ML VIAL 70 UNIT SUBCUT (20:47)
[2022-06-04 20:52] LABS: Glucose, Whole Blood 291 mg/dL (60-115)
[2022-06-05 03:25] VITALS: BP 130/62; PULSE 72; RESP 16; TEMP 36.1; O2SAT 97
[2022-06-05 07:04] VITALS: BP 144/71; PULSE 70; RESP 16; TEMP 36.4; O2SAT 97
[2022-06-05] MEDS: Insulin Lispro 100 UNIT/ML 3 ML VIAL SUBCUT ×4 (08:04→21:09)
[2022-06-05] MEDS: Insulin Lispro 100 UNIT/ML 3 ML VIAL 7 UNIT SUBCUT ×3 (08:04→16:33)
[2022-06-05] MEDS: 0.9 % Sodium Chloride Flush 3 ML SYRINGE IVFLUSH ×3 (08:04→20:24)
[2022-06-05] MEDS: clonazePAM 1 MG TABLET PO ×2 (08:05→20:22)
[2022-06-05] MEDS: Gabapentin 600 MG TABLET PO ×3 (08:05→20:22)
[2022-06-05] MEDS: methADONE HCl 20 MG/2 ML ORAL.CONC 85 MG PO (08:05)
[2022-06-05] MEDS: cloNIDine HCL 0.2 MG TABLET PO ×3 (08:05→20:23)
[2022-06-05] MEDS: amLODIPine Besylate 5 MG TABLET PO (08:05)
[2022-06-05 08:09] LABS: Glucose, Whole Blood 324 mg/dL (60-115)
[2022-06-05] MEDS: QUEtiapine Fumarate 100 MG TABLET PO ×2 (08:29→20:22)
[2022-06-05 11:16] LABS: Glucose, Whole Blood 298 mg/dL (60-115)
--- NOTE | 2022-06-05 12:13 | HO.PM.IMPN ---
Subjective Subjective Date of Service: 06/05/22 Interval History: Complaining of bilateral leg and knee pain requesting for oxycodone, tolerating diet with no nausea no vomiting no abdominal pain no other acute issues overnight. Review of Systems Review of Systems: Yes all other systems are reviewed and are negative Physical Exam Vital Signs: Vital Signs: Last Vital Signs Temp 97.6 F 06/05/22 07:04 Pulse 70 06/05/22 07:04 Resp 16 06/05/22 07:04 BP 144/71 H 06/05/22 07:04 Pulse Ox 97 06/05/22 07:04 O2 Del Method 06/05/22 07:04 O2 Flow Rate 2 06/04/22 19:40 BMI result Body Mass Index 34.2 Const: Other: General: Alert oriented x3, resting comfortably, no acute distress Neck no JVD Resp:? CTA bilateral CVS: S1,S2,RRR GI: +BS, NT, no distention Bilateral knees, no redness no warmth, good range of motion Neuro:? motor grossly intact Psych: appropriate affect Objective Data Active Medications Amlodipine Besylate (Amlodipine Besylate 5 Mg Tablet) 5 mg PO DAILY [facility]; Protocol Last Admin: 06/05/22 08:05 Dose: 5 mg Documented By: SOWMYA Atorvastatin Calcium (Atorvastatin Calcium 40 Mg Tablet) 40 mg PO BEDTIME [facility] Last Admin: 06/04/22 20:46 Dose: 40 mg Documented By: WENDI Clonazepam (Clonazepam 1 Mg Tablet) 1 mg PO BID PRN PRN Reason: Anxiety Last Admin: 06/05/22 08:05 Dose: 1 mg Documented By: SOWMYA Clonidine HCl (Clonidine Hcl 0.2 Mg Tablet) 0.2 mg PO TID [facility]; Protocol Last Admin: 06/05/22 08:05 Dose: 0.2 mg Documented By: SOWMYA Dextrose (Dextrose 50 % 25 Gm/50 Ml Syringe) 25 gm IVPUSH Q15M PRN; Protocol PRN Reason: per Hypoglycemia Standing Ord. Enoxaparin Sodium (Enoxaparin Sodium 40 Mg/0.4 Ml Syringe) 40 mg SUBCUT Q24H [facility] Last Admin: 06/05/22 08:09 Dose: Not Given Documented By: SOWMYA Non-Admin Reason: Patient Refused Furosemide (Furosemide 40 Mg Tablet) 40 mg PO BIDWM [facility]; Protocol Last Admin: 06/05/22 08:09 Dose: Not Given Documented By: SOWMYA Non-Admin Reason: Patient Refused Gabapentin (Gabapentin 600 Mg Tablet) 600 mg PO TID [facility] Last Admin: 06/05/22 08:05 Dose: 600 mg Documented By: SOWMYA Glucose (Glucose Gel 15 Gm Gel..Gram.) 15 gm PO Q15M PRN; Protocol PRN Reason: per Hypoglycemia Standing Ord. Vancomycin HCl 1,250 mg/ (Sodium Chloride) 250 mls @ 166.667 mls/hr IV Q12H [facility] Last Admin: 06/05/22 10:26 Dose: 166.67 mls/hr Documented By: SOWMYA Insulin Glargine (Insulin Glargine,Hum.Rec.Anlog 100 Unit/Ml 10 Ml Vial) 70 unit SUBCUT BEDTIME [facility] Last Admin: 06/04/22 20:47 Dose: 70 unit Documented By: WENDI Insulin Human Lispro (Insulin Lispro 100 Unit/Ml 3 Ml Vial) 0 unit SUBCUT QIDACHS [facility]; Protocol Last Admin: 06/05/22 11:46 Dose: 6 unit Documented By: SOWMYA Insulin Human Lispro (Insulin Lispro 100 Unit/Ml 3 Ml Vial) 7 unit SUBCUT TIDAC [facility] Last Admin: 06/05/22 11:42 Dose: 7 unit Documented By: SOWMYA Methadone HCl (Methadone Hcl 20 Mg/2 Ml Oral.Conc) 85 mg PO DAILY [facility] Last Admin: 06/05/22 08:05 Dose: 85 mg Documented By: SOWMYA Comments: Quetiapine Fumarate (Quetiapine Fumarate 100 Mg Tablet) 100 mg PO BID@1100,2100 [facility] Last Admin: 06/05/22 08:29 Dose: 100 mg Documented By: SOWMYA Sodium Chloride (0.9 % Sodium Chloride Flush 3 Ml Syringe) 3 ml IVFLUSH QSHIFT [facility] Last Admin: 06/05/22 08:04 Dose: 3 ml Documented By: SOWMYA Labs CBC & Chem 7: 06/01/22 08:54 06/04/22 09:08 Labs: Laboratory Results - last 24 hr 06/04/22 06/04/22 06/05/22 15:28 19:43 07:02 POC Glucose 369 H* 291 H 324 H 06/05/22 10:54 POC Glucose 298 H Assessment and Plan (1) HTN (hypertension): Status: Acute Plan 51M pmh obesity, opiate dependence, htn, DM, chronic hypoxic respiratory failure, PVD, hld, anxiety, presented with bilateral DFU with oozing bilateral lower extremity ulcers due to DM and PVD partially treated ID appreciated, now with picc, continue vanc, Levaquin fell off yesterday will resume? levaquin 750mg for total 6 weeks (end jun 07, 2022) Bilateral leg and knee pain likely due to arthritis, recommended Tylenol opiate dependence with withdrawal methadone DM uncontrolled with hyperglycemia Elevated blood sugars and 200-300 range, continue basal bolus insulin with correction, monitor poc chronic hypoxic respiratory failure on 2L home o2 out of o2 at home obesity recommend low-calorie diet htn Stable continue amlodipine, clonidine mood disorder seroquel hld statin dvt prophylaxis - lovenox reason for continued hospitalization:awaiting placement, or DC 1/3 Time Spent With Patient Time: Total time managing care of this patient today ____ minutes. Quality Stroke Does the patient have a stroke diagnosis?: No VTE Prior VTE?: No VTE Risk Level:: Medical - moderate - high VTE Device Contraindication: Treatment Not Indicated VTE Drug Contraindication: N/A - Med Ordered
[2022-06-05] MEDS: levoFLOXacin 750 MG TABLET PO (12:51)
[2022-06-05 15:33] VITALS: BP 122/65; PULSE 70; RESP 18; TEMP 36.7; O2SAT 98
[2022-06-05 16:03] LABS: Glucose, Whole Blood 297 mg/dL (60-115)
[2022-06-05 19:04] VITALS: BP 123/66; PULSE 71; RESP 16; TEMP 36.5; O2SAT 97
[2022-06-05] MEDS: Atorvastatin Calcium 40 MG TABLET PO (20:22)
[2022-06-05] MEDS: Insulin Glargine,Hum.rec.anlog 100 UNIT/ML 10 ML VIAL 70 UNIT SUBCUT (20:24)
[2022-06-05 20:33] LABS: Glucose, Whole Blood 318 mg/dL (60-115)
[2022-06-05 21:37] LABS: Vancomycin Trough 13.1 mcg/mL (10.0-20.0)
[2022-06-05 21:38] LABS: Creatinine Clr Calc Pharmacy 130.6; Estimated Glomerular Filt Rate > 60
[2022-06-06 03:58] VITALS: BP 147/77; PULSE 70; RESP 18; TEMP 36.6; O2SAT 97
[2022-06-06 07:32] LABS: Glucose, Whole Blood 289 mg/dL (60-115)
[2022-06-06 07:43] VITALS: BP 131/89; PULSE 75; RESP 17; TEMP 36.7; O2SAT 100
[2022-06-06 08:22] LABS: Creatinine Clr Calc Pharmacy 141.7; Estimated Glomerular Filt Rate > 60
[2022-06-06] MEDS: Insulin Lispro 100 UNIT/ML 3 ML VIAL SUBCUT ×4 (08:33→20:55)
[2022-06-06] MEDS: Gabapentin 600 MG TABLET PO ×3 (08:33→20:54)
[2022-06-06] MEDS: cloNIDine HCL 0.2 MG TABLET PO ×3 (08:33→20:54)
[2022-06-06] MEDS: Furosemide 40 MG TABLET PO (08:33)
[2022-06-06] MEDS: amLODIPine Besylate 5 MG TABLET PO (08:33)
[2022-06-06] MEDS: Insulin Lispro 100 UNIT/ML 3 ML VIAL 7 UNIT SUBCUT ×3 (08:34→16:29)
[2022-06-06] MEDS: methADONE HCl 20 MG/2 ML ORAL.CONC 85 MG PO (08:35)
[2022-06-06] MEDS: QUEtiapine Fumarate 100 MG TABLET PO ×2 (08:40→21:44)
[2022-06-06] MEDS: clonazePAM 1 MG TABLET PO ×2 (08:41→20:59)
[2022-06-06] MEDS: 0.9 % Sodium Chloride Flush 3 ML SYRINGE IVFLUSH ×2 (08:47→15:08)
--- NOTE | 2022-06-06 09:27 | HO.PM.IMPN ---
Subjective Subjective Date of Service: 06/06/22 Interval History: Has no new complaint, comfortable Physical Exam Vital Signs: Vital Signs: Last Vital Signs Temp 98.0 F 06/06/22 07:43 Pulse 75 06/06/22 07:43 Resp 17 06/06/22 07:43 BP 131/89 06/06/22 07:43 Pulse Ox 100 06/06/22 07:43 O2 Del Method 06/06/22 07:43 O2 Flow Rate 2.0 06/06/22 07:43 BMI result Body Mass Index 34.2 Const: Other: General: AO X 3, no acute distress Resp: CTA bilateral CVS: S1,S2,RRR GI: +BS, NT, no distention Skin: ulcers of feet is less obvious Neuro: motor grossly intact Psych: appropriate affect Objective Data Active Medications Acetaminophen (Acetaminophen 325 Mg Tablet) 650 mg PO Q6H PRN PRN Reason: Pain, Mild (Pain Scale 1-3) Amlodipine Besylate (Amlodipine Besylate 5 Mg Tablet) 5 mg PO DAILY RICHARD; Protocol Last Admin: 06/06/22 08:33 Dose: 5 mg Documented By: ELOY Atorvastatin Calcium (Atorvastatin Calcium 40 Mg Tablet) 40 mg PO BEDTIME RICHARD Last Admin: 06/05/22 20:22 Dose: 40 mg Documented By: FADUMO Clonazepam (Clonazepam 1 Mg Tablet) 1 mg PO BID PRN PRN Reason: Anxiety Last Admin: 06/06/22 08:41 Dose: 1 mg Documented By: ELOY Clonidine HCl (Clonidine Hcl 0.2 Mg Tablet) 0.2 mg PO TID RICHARD; Protocol Last Admin: 06/06/22 08:33 Dose: 0.2 mg Documented By: ELOY Dextrose (Dextrose 50 % 25 Gm/50 Ml Syringe) 25 gm IVPUSH Q15M PRN; Protocol PRN Reason: per Hypoglycemia Standing Ord. Enoxaparin Sodium (Enoxaparin Sodium 40 Mg/0.4 Ml Syringe) 40 mg SUBCUT Q24H RICHARD Last Admin: 06/06/22 08:37 Dose: Not Given Documented By: ELOY Non-Admin Reason: Patient Refused Furosemide (Furosemide 40 Mg Tablet) 40 mg PO BIDWM RICHARD; Protocol Last Admin: 06/06/22 08:33 Dose: 40 mg Documented By: ELOY Gabapentin (Gabapentin 600 Mg Tablet) 600 mg PO TID [facility] Last Admin: 06/06/22 08:33 Dose: 600 mg Documented By: ELOY Glucose (Glucose Gel 15 Gm Gel..Gram.) 15 gm PO Q15M PRN; Protocol PRN Reason: per Hypoglycemia Standing Ord. Vancomycin HCl 1,250 mg/ (Sodium Chloride) 250 mls @ 166.667 mls/hr IV Q12H [facility] Last Infusion: 06/06/22 00:07 Dose: 0 mls/hr Documented By: FADUMO Insulin Glargine (Insulin Glargine,Hum.Rec.Anlog 100 Unit/Ml 10 Ml Vial) 70 unit SUBCUT BEDTIME [facility] Last Admin: 06/05/22 20:24 Dose: 70 unit Documented By: FADUMO Insulin Human Lispro (Insulin Lispro 100 Unit/Ml 3 Ml Vial) 0 unit SUBCUT QIDACHS [facility]; Protocol Last Admin: 06/06/22 08:33 Dose: 6 unit Documented By: ELOY Insulin Human Lispro (Insulin Lispro 100 Unit/Ml 3 Ml Vial) 7 unit SUBCUT TIDAC [facility] Last Admin: 06/06/22 08:34 Dose: 7 unit Documented By: ELOY Levofloxacin (Levofloxacin 750 Mg Tablet) 750 mg PO Q24H [facility] Stop: 06/07/22 12:59 Last Admin: 06/05/22 12:51 Dose: 750 mg Documented By: SOWMYA Methadone HCl (Methadone Hcl 20 Mg/2 Ml Oral.Conc) 85 mg PO DAILY [facility] Last Admin: 06/06/22 08:35 Dose: 85 mg Documented By: ELOY Quetiapine Fumarate (Quetiapine Fumarate 100 Mg Tablet) 100 mg PO BID@1100,2100 [facility] Last Admin: 06/06/22 08:40 Dose: 100 mg Documented By: ELOY Sodium Chloride (0.9 % Sodium Chloride Flush 3 Ml Syringe) 3 ml IVFLUSH QSHIFT [facility] Last Admin: 06/06/22 08:47 Dose: 3 ml Documented By: ELOY Labs CBC & Chem 7: 06/01/22 08:54 06/06/22 07:40 Labs: Laboratory Results - last 24 hr 06/05/22 06/05/22 06/05/22 10:54 15:37 19:06 Estim Creat Clear Calc Estimated GFR POC Glucose 298 H 297 H 318 H Vancomycin Trough 06/05/22 06/05/22 06/06/22 20:52 20:55 07:28 Estim Creat Clear Calc 130.6 Estimated GFR > 60 POC Glucose 289 H Vancomycin Trough 13.1 06/06/22 07:40 Estim Creat Clear Calc 141.7 Estimated GFR > 60 POC Glucose Vancomycin Trough Assessment and Plan (1) Diabetes type 2 with atherosclerosis of arteries of extremities: Status: Acute Plan 51M pmh obesity, opiate dependence, htn, DM, chronic hypoxic respiratory failure, PVD, hld, anxiety, presented with bilateral DFU with oozing bilateral lower extremity ulcers due to DM and PVD partially treated ID appreciated, now with picc, continue vanc, Levaquin fell off yesterday will resume? levaquin 750mg for total 6 weeks (end jun 07, 2022) Bilateral leg and knee pain likely due to arthritis, recommended Tylenol opiate dependence with withdrawal methadone DM uncontrolled with hyperglycemia Elevated blood sugars and 200-300 range, continue basal bolus insulin with correction, monitor poc chronic hypoxic respiratory failure on 2L home o2 out of o2 at home obesity recommend low-calorie diet htn Stable continue amlodipine, clonidine mood disorder seroquel hld statin dvt prophylaxis - lovenox reason for continued hospitalization:awaiting placement, or DC 1/3 Time Spent With Patient Time: Total time managing care of this patient today __28__ minutes. Quality Stroke Does the patient have a stroke diagnosis?: No VTE Prior VTE?: No VTE Risk Level:: Medical - moderate - high VTE Device Contraindication: Treatment Not Indicated VTE Drug Contraindication: N/A - Med Ordered
[2022-06-06 11:31] LABS: Glucose, Whole Blood 235 mg/dL (60-115)
[2022-06-06] MEDS: levoFLOXacin 750 MG TABLET PO (11:37)
--- NOTE | 2022-06-06 13:37 | MHC.CM.PN ---
TOMORROW (06/07/22) IS LAST SCHEDULED DAY FOR IV ABX. PATIENT AWARE AND HAS BEEN IN CONTACT WITH [employer] FOR HIS CONTINUED SUBSTANCE USE TREATMENT SERVICES
[2022-06-06 14:57] VITALS: BP 129/65; PULSE 70; RESP 20; TEMP 36.8; O2SAT 98
[2022-06-06 16:22] LABS: Glucose, Whole Blood 338 mg/dL (60-115)
[2022-06-06 18:50] VITALS: BP 134/68; PULSE 82; RESP 18; TEMP 36.4; O2SAT 97
[2022-06-06 19:32] LABS: Glucose, Whole Blood 433 mg/dL (60-115)
[2022-06-06] MEDS: Insulin Lispro 100 UNIT/ML 3 ML VIAL 10 UNIT SUBCUT (20:54)
[2022-06-06] MEDS: Atorvastatin Calcium 40 MG TABLET PO (20:54)
[2022-06-06] MEDS: Insulin Glargine,Hum.rec.anlog 100 UNIT/ML 10 ML VIAL 70 UNIT SUBCUT (20:55)
[2022-06-07 03:42] VITALS: BP 127/72; PULSE 63; RESP 18; TEMP 36.3; O2SAT 99
[2022-06-07 07:35] LABS: Glucose, Whole Blood 335 mg/dL (60-115)
--- NOTE | 2022-06-07 07:42 | P.DS_ITS ---
DS: Providers Provider Date of Service: 06/07/22 Date of admission: 05/25/22 02:33 Primary care physician: None Physician Consults: 05/25/22 02:18 Consult to Infectious Diseases Routine Consulting Provider: Nina Stone Reason for consultation: partially treated OM 05/25/22 14:38 Addiction Medicine Stat Consulting Provider: Faye Chavira Reason for consultation: METHADONE REINITIATION DS: Diagnosis Discharge Diagnosis (1) Diabetes type 2 with atherosclerosis of arteries of extremities: Status: Acute DS: Summary Hospital Course Hospital Course: Chief Complaint: bilateral DFU oozing, ran out of o2 51M pmh obesity, opiate dependence, htn, DM, chronic hypoxic respiratory failure, PVD, hld, anxiety, presented with bilateral DFU with oozing. patient [place] [facility] [place] after hospitalization for bilateral DFU/clinical OM, plan had been for 6 weeks iv vanc and po levaquin. when he left a, alternative plan was for po levaquin and zyvox, however, patient was unable to pickers material handlers medication. he is now returning due to sob after running out of home o2 and for worsening secretions from his bilateral ulcers. in ED, labs were unable to be drawn, pateint did not appear septic, xray without OM. Hospital course: Patient was admitted to finish 6 weeks course of antibiotics as indicated above. He was on Vanco and Levaquin and total course of treatment has been 6 weeks to date. Ulcer healing well, no sings of acute infection. To resume all prior outpatient meds. Final diagnoses: Bilateral lower extremity ulcers due to DM and PVD Bilateral leg and knee pain likely due to arthritis, recommended Tylenol opiate dependence with withdrawal Diabetes uncontrolled with hyperglycemia Chronic hypoxic respiratory failure on 2L home o2 obesity HTN Mood desorder Time Spent with Patient Time attestation: Total time managing care of this patient today ____ minutes. Discharge coordination time: Greater than 30 minutes Quality: Safe Use of Opioids Does Pt have an Active Cancer Diagnosis on the Problem List?: No Quality: Stroke Does the patient have a stroke diagnosis?: No Physical Exam Vital Signs: Vital Signs: Last Vital Signs Temp 97.3 F 06/07/22 03:42 Pulse 63 06/07/22 03:42 Resp 18 06/07/22 03:42 BP 127/72 06/07/22 03:42 Pulse Ox 99 01/03/23 03:42 O2 Del Method 06/07/22 03:42 O2 Flow Rate 2 06/07/22 03:42 BMI result Body Mass Index 34.2 Const: Other: General: AO X 3, no acute distress Resp: CTA bilateral CVS: S1,S2,RRR GI: +BS, NT, no distention Skin: ulcers of feet is less obvious Neuro: motor grossly intact Psych: appropriate affect DS: Data Data Completed and Pending Completed studies during hospitalization [Text1]: Procedures Excision of Left Foot Skin, External Approach (04/25/22) Excision of Left Foot Subcutaneous Tissue and Fascia, Open Approach (04/25/22) Insertion of Infusion Device into Superior Vena Cava, Percutaneous Approach (04/25/22) Labs on day of discharge: Laboratory Results - last 24 hr 06/06/22 06/06/22 06/06/22 07:40 11:26 16:14 Creatinine 0.82 Estim Creat Clear Calc 141.7 Estimated GFR > 60 POC Glucose 235 H 338 H 06/06/22 06/07/22 19:22 07:25 Creatinine Estim Creat Clear Calc Estimated GFR POC Glucose 433 H* 335 H Discharge Plan Discharge Anticipated Discharge Date/Time: 06/07/22 07:38 Patient Disposition: Home, Self-Care Discharge Diagnosis: Diabetes foot ulcers Referrals: Physician,None [Primary Care Provider] - 1 Week Discharge Medications: Continued furosemide 40 mg tablet 1 tab PO BID gabapentin 600 mg tablet 1 tab PO TID clonazepam 1 mg tablet 1 tab PO BID PRN (Reason: anxiety) quetiapine 100 mg tablet 1 tab PO BID insulin lispro 100 unit/mL insulin pen 15 unit subcut TID insulin glargine [Lantus Solostar U-100 Insulin] 100 unit/mL (3 mL) insulin pen 120 unit subcut BEDTIME methadone [Methadone Intensol] 10 mg/mL Concentrate 140 mg PO DAILY amlodipine 5 mg Tablet 5 mg PO DAILY Qty: 30 0RF Protocol: Hold for SBP< HOLD for SBP < : 90 (DME) blood-glucose meter [[employer] Flash System] Kit See Rx Instructions .Route Qty: 1 0RF Rx Instructions: As directed atorvastatin 40 mg tablet 1 tab PO BEDTIME Qty: 30 0RF clonidine HCl 0.2 mg tablet 1 tab PO TID Qty: 90 0RF Discontinued levofloxacin 750 mg Tablet 750 mg PO Q24H Qty: 22 0RF Diet: Diabetic diet Activity on Discharge: As tolerated Stand Alone Forms: Patient Portal Discharge page Care Plan Goals: Full reocovery and healing of diabetic foot ulcer Health Concerns: Diabetes osteomylitis Plan of Treatment: Take all your medication as prescribed and follow up with your Doctor in a week, call for appointment Assessment: Toro zelaya
[2022-06-07] MEDS: cloNIDine HCL 0.2 MG TABLET PO (07:49)
[2022-06-07] MEDS: clonazePAM 1 MG TABLET PO (07:49)
[2022-06-07] MEDS: amLODIPine Besylate 5 MG TABLET PO (07:49)
[2022-06-07] MEDS: Gabapentin 600 MG TABLET PO (07:49)
[2022-06-07] MEDS: Insulin Lispro 100 UNIT/ML 3 ML VIAL SUBCUT ×2 (07:50→11:42)
[2022-06-07] MEDS: QUEtiapine Fumarate 100 MG TABLET PO (07:51)
[2022-06-07] MEDS: methADONE HCl 20 MG/2 ML ORAL.CONC 85 MG PO (07:51)
[2022-06-07] MEDS: Insulin Lispro 100 UNIT/ML 3 ML VIAL 7 UNIT SUBCUT ×2 (07:51→11:43)
[2022-06-07 08:00] VITALS: BP 157/81; PULSE 87; RESP 18; TEMP 36.6; O2SAT 100
[2022-06-07] MEDS: 0.9 % Sodium Chloride Flush 3 ML SYRINGE IVFLUSH (09:42)
--- NOTE | 2022-06-07 09:46 | PC.NURSE ---
pt refused vanco trough at 09:00 bc he thinks he is going home today.
[2022-06-07 11:28] LABS: Glucose, Whole Blood 315 mg/dL (60-115)
--- NOTE | 2022-06-07 12:22 | MHC.CM.PN ---
PER PATIENT REQUEST, T/W LEFT MESSAGE FOR [facility] [facility] [facility] MESS[facility] LEFT THAT PATIENT HAS COMPLETED HIS IV ABX TREATMENT AND IS READY TO RESUME HIS COMMUNITY TREATMENT SERVICES CALL BACK NUMBER FOR THIS [employer] HELPER LEFT ON [employer]ICEMAIL
--- NOTE | 2022-06-07 12:51 | MHC.CM.PN ---
LAST DOSE LETTER GIVEN
== END 2022-06-07 13:45 | disposition home or self-care (01) | DRG 197 ==
LOC: HO.ED 05-25 01:35 → HO.EDOVER 05-25 02:39 → HO.S3 05-25 08:11
PROVIDERS: Hospitalist; Nurse Practitioner Family; Admitting Provider Internal Medicine; Emergency Provider Emergency Medicine; Visit Provider Internal Medicine
DX: E11.51 Type 2 diabetes mellitus with diabetic peripheral angiopathy without gangrene (principal); J96.11 Chronic respiratory failure with hypoxia; E11.621 Type 2 diabetes mellitus with foot ulcer; L97.419 Non-pressure chronic ulcer of right heel and midfoot with unspecified severity; U09.9 Post COVID-19 condition, unspecified; E11.65 Type 2 diabetes mellitus with hyperglycemia; L97.429 Non-pressure chronic ulcer of left heel and midfoot with unspecified severity; Z99.81 Dependence on supplemental oxygen; E66.9 Obesity, unspecified; E78.5 Hyperlipidemia, unspecified; F11.23 Opioid dependence with withdrawal; Z20.822 Contact with and (suspected) exposure to COVID-19; Z68.34 Body mass index [BMI] 34.0-34.9, adult; I70.244 Atherosclerosis of native arteries of left leg with ulceration of heel and midfoot; F41.9 Anxiety disorder, unspecified; I70.234 Atherosclerosis of native arteries of right leg with ulceration of heel and midfoot; M19.90 Unspecified osteoarthritis, unspecified site; Z91.14 Patient's other noncompliance with medication regimen; Z91.199 Patient's noncompliance with other medical treatment and regimen due to unspecified reason; Z79.4 Long term (current) use of insulin; Z88.0 Allergy status to penicillin; Z88.6 Allergy status to analgesic agent; Z79.899 Other long term (current) drug therapy
CPT/HCPCS: 36415; 36573; 73630; 80048; 80053; 80202; 82565; 82947; 83605; 85027; 86140; 87635; 93005; 99284; C1751; J3370; J3371

== ENCOUNTER 2022-06-09 15:35 | Emergency (ER) | payer MEDICAID, SELFPAY ==
--- NOTE | ~2022-06-09 | XR_ITS ---
EXAMINATION: XR KNEE, LEFT CLINICAL INFORMATION: Pain status post fall COMPARISON: None TECHNIQUE: Four views of the left knee. FINDINGS: Diffuse soft tissue swelling about the knee joint with a large suprapatellar effusion. There is a probable minimally displaced tibial plateau fracture involving the lateral tibial plateau. Recommend further evaluation with CT. Possible minimally displaced fibular head fracture. XR/XR knee LT 4V IMPRESSION: There is a probable minimally displaced tibial plateau fracture involving the lateral tibial plateau. Recommend further evaluation with CT. Possible minimally displaced fibular head fracture. Diffuse soft tissue swelling about the knee joint with a large suprapatellar effusion.
--- NOTE | ~2022-06-09 | XR_ITS ---
EXAMINATION: XR TIBIA AND FIBULA, LEFT CLINICAL INFORMATION: Fall, laceration. COMPARISON: Radiograph of the left tibia/fibula 04/25/2022. TECHNIQUE: AP and lateral views of the left tibia and fibula were obtained. FINDINGS: No acute fractures or malalignment. Chronic appearing deformity of the distal tibia with partially imaged hardware in the ankle. Diffuse soft tissue swelling with a moderate size joint effusion in left knee. No unexpected radiopaque foreign bodies. XR/XR tibia fibula LT 2V IMPRESSION: 1. No acute fractures or malalignment. 2. Moderate size joint effusion in the left knee. 3. Chronic appearing deformity of the distal tibia. 4. Partially imaged hardware in the ankle.
[2022-06-09 15:46] VITALS: BP 180/94; PULSE 94; O2SAT 96
--- NOTE | 2022-06-09 16:35 | PC.NURSE ---
called x1 triage
[2022-06-09 17:27] VITALS: BP 148/77; PULSE 79; RESP 18; TEMP 36.1; O2SAT 100; BMI 34.8
[2022-06-09] MEDS: Diphth,Pertus(ACell),Tet Adult 0.5 ML SYRINGE IM (20:40)
--- NOTE | 2022-06-10 00:15 | ED_ITS ---
HPI - Fall General Chief Complaint: Fall Stated Complaint: FALL, LE LAC Time Seen by Provider: 06/10/22 00:14 Source: patient and EMS Mode of arrival: EMS Limitations: no limitations History of Present Illness HPI Narrative: 51-year-old male presents for laceration to his left lower extremity. States he was at [facility], slipped on something on the floor, and cut his leg on his walker. He does have chronic bilateral lower extremity wounds with amputations to all of the right toes. He is on chronic O2 for suspected COPD. MD complaint: fall Onset (ago): hour(s) (Within our arrival) Fall from: standing Fall witnessed: no Place fall occurred: other ([place]) Loss of consciousness: none Prolonged down time: no Symptoms prior to fall: none Context: tripped/slipped Location of injury - extremities: left: lower leg Severity: moderate Quality: aching and throbbing Associated symptoms (after fall): denies Related Data Home Medications Medication Instructions Recorded Confirmed methadone 10 mg/mL oral 140 mg PO DAILY 04/25/22 05/25/22 concentrate (Methadone Intensol) Previous Rx's Medication Instructions Recorded amlodipine 5 mg tablet 5 mg PO DAILY #30 tabs 06/08/22 atorvastatin 40 mg tablet 1 tab PO BEDTIME #30 tabs 06/08/22 blood-glucose meter (FreeStyle #1 ea 06/08/22 Flash System kit) clonazepam 1 mg tablet 1 tab PO BID PRN anxiety #6 tabs 06/08/22 clonidine HCl 0.2 mg tablet 1 tab PO TID #90 tabs 06/08/22 furosemide 40 mg tablet 1 tab PO BID #30 tabs 06/08/22 gabapentin 600 mg tablet 1 tab PO TID #21 tabs 06/08/22 insulin glargine 100 unit/mL (3 80 unit (0.8 mL) subcut BEDTIME 06/08/22 mL) subcutaneous pen (Lantus #15 mL Solostar U-100 Insulin) insulin lispro 100 unit/mL 10 unit (0.1 mL) subcut TID #15 mL 06/08/22 subcutaneous pen quetiapine 100 mg tablet 1 tab PO BID #15 tabs 06/08/22 doxycycline monohydrate 100 mg 100 mg PO BID 10 days #20 caps 06/10/22 capsule Allergies Allergy/AdvReac Type Severity Reaction Status Date / Time prochlorperazine Allergy Intermediate Hives Verified 06/09/22 17:33 [From Compazine] aspirin [ASA] Allergy Unknown HIVES Verified 06/09/22 17:33 naproxen [From NAPROSYN] Allergy Unknown HIVES Verified 06/09/22 17:33 NSAIDS (Non-Steroidal Allergy Unknown HIVES Verified 06/09/22 17:33 Anti-Inflamma [NSAIDS (NON-STEROIDAL ANTI-INFLAMMA] Penicillins [PENICILLINS] Allergy Unknown HIVES Verified 06/09/22 17:33 Review of Systems Review of Systems: Constitutional: No Fever, No Chills Cardiovascular: No Chest Pain, No SOB Respiratory: No Cough, No Dyspnea Musculoskeletal: positive left leg pain, No Myalgias, No Joint Swelling Skin: Positive left leg laceration, No rash Neuro: No Weakness, No Numbness, No Paresthesias, No Loss of Consciousness, No Dizziness, No Headache Yes all other systems are reviewed and are negative [facility] Past Medical History Attestation statement: The following information was validated with the patient. Source: old records reviewed Medical History Compartment syndrome of left lower extremity Diabetes HTN (hypertension) Post-COVID chronic dyspnea Ulcer of left foot Surgical History Status post transmetatarsal amputation of right foot Family History Family History Other No pertinent family history Social History Social History Household Members: None Housing: Apartment Housing Other:: reports no place to live Do you presently have visiting nurse or other home services: No Alcohol intake: never Patient Tobacco Use Status: Never used Tobacco e-Cigarette/Vaping Use: Never Used Advance Directives: Yes Advance Directives Information Provided: No Advance Directives on File: Yes Advance Directives Date on File: 05/19/22 service: No Current occupational status: disabled Physical Exam Vital Signs: Vital Signs: Last Vital Signs Temp 97.9 F 06/10/22 00:19 Pulse 78 06/10/22 00:19 Resp 18 01/06/23 00:19 BP 126/62 06/10/22 00:19 Pulse Ox 95 06/10/22 00:19 O2 Del Method 06/10/22 00:19 O2 Flow Rate 2 06/10/22 00:19 Oxygen Flow Rate 2 06/09/22 17:27 BMI result Body Mass Index 34.8 Appearance: Alert. Oriented X3. No acute distress. Eyes: Pupils equal, round and reactive to light. ENT: Pharynx normal. Neck: Normal inspection. Neck supple. CVS: Normal heart rate and rhythm. Pulses normal. Respiratory: No respiratory distress. Skin: 5 cm laceration to the left lower extremity. Extremities: Chronic wound to the right foot, all 5 toes amputated, chronic wound to the left medial hallux. Neuro: No motor deficit. No sensory deficit. Cranial nerves 2-12 intact. Course Course Course Narrative: 51-year-old male presents for laceration sustained from a fall to the left lower extremity. X-rays were completed while he was in the emergency department wa iting room which indicate a left knee effusion negative for fractures. Patient appears to be intoxicated, I suspect opioid use disorder. Patient has chronic wounds to the bilateral lower extremities, while the dressings are malodorous, the wounds look good and do not appear to be infected. Wounds were dressed. Patient does have a 5 cm laceration to the left lower extremity, bordering a prior surgical resection for compartment syndrome. Plan of care is to suture and give antibiotics because patient is not able to accurately describe what he cut his leg on. 23:45 prepped and draped in sterile fashion. Irrigated with copious amounts of sterile saline. Patient tolerated procedure well. Refer to procedure note for full details. 00:15 patient continues with brisk capillary refill, no bleeding noted. plan of care is to discharge. Patient verbalized understanding of and agrees plan of care. Patient will be discharged via EMS as he is chronically O2 dependent. 03:34 after review of records it was noted that radiologist read states that there is a tibial plateau fracture, during my assessment earlier, I did not see a fracture. I did try to call the patient back however he did not answer his phone. Medications Administered Discontinued Medications Generic Name Dose Route Start Last Admin Trade Name Freq PRN Reason Stop Dose Admin Diphtheria/Tetanus/Acell Pertussis 0.5 ml 06/09/22 17:50 06/09/22 20:40 Diphth,Pertus(Acell),Tet Adult 0.5 Ml Syringe IM 06/09/22 17:51 0.5 ml .ONCE ONE Administration Doxycycline Monohydrate 100 mg 06/10/22 00:18 06/10/22 00:41 Doxycycline Monohydrate 100 Mg Capsule PO 06/10/22 00:19 100 mg ONCE ONE Administration Procedures Laceration Laceration 1: Site: lower extremity Side (If applicable): left Size (cm): 5 Description: irregular Depth: simple, single layer Local Anesthetic: lidocaine 1% and with epi Amount of anesthesia used (mL): 10 Pre-repair: wound explored, irrigated extensively and deep structures intact Skin layer closed with: nylon Size (cm): 4-0 Number of sutures: 15 Technique: simple, interrupted Medical Decision Making Differential Diagnosis Differential Diagnoses: The differential diagnosis associated with the presentation includes Laceration, fracture, dislocation, effusion Admission/Observation Consideration of admission/observation: Escalation of care including admission/observation considered Admission not considered for this patient Independent Interpretation I performed an independent interpretation of an: Plain X-Ray Radiology Impression Discussion of test interpretation with radiology: I have reviewed the radiologist's reading. Radiologist Impression: EXAMINATION: XR TIBIA AND FIBULA, LEFT CLINICAL INFORMATION: Fall, laceration.? COMPARISON: Radiograph of the left tibia/fibula 04/25/2022.? TECHNIQUE: AP and lateral views of the left tibia and fibula were obtained. FINDINGS: No acute fractures or malalignment. Chronic appearing deformity of the distal tibia with partially imaged hardware in the ankle. Diffuse soft tissue swelling with a moderate size joint effusion in left knee. No unexpected radiopaque foreign bodies.? XR/XR tibia fibula LT 2V IMPRESSION: 1.? No acute fractures or malalignment. 2.? Moderate size joint effusion in the left knee. 3.? Chronic appearing deformity of the distal tibia. 4.? Partially imaged hardware in the ankle. EXAMINATION: XR KNEE, LEFT CLINICAL INFORMATION: Pain status post fall? COMPARISON: None? TECHNIQUE: Four views of the left knee. FINDINGS: Diffuse soft tissue swelling about the knee joint with a large suprapatellar effusion. There is a probable minimally displaced tibial plateau fracture involving the lateral tibial plateau. Recommend further evaluation with CT. Possible minimally displaced fibular head fracture.? XR/XR knee LT 4V IMPRESSION: There is a probable minimally displaced tibial plateau fracture involving the lateral tibial plateau. Recommend further evaluation with CT. Possible minimally displaced fibular head fracture. Diffuse soft tissue swelling about the knee joint with a large suprapatellar effusion.? External Record Review External record reviewed: Inpatient record, Outpatient record and Prior outpatient labs Prescription Management I considered prescription management with: Pain Medication Patient has an opioid use disorder, pain medications not recommended for this patient Discharge Plan Discharge Clinical Impression: Fall with injury, Effusion of knee, Laceration of left lower leg Patient Disposition: Home, Self-Care Instructions: Laceration (ED), Swollen Knee Joint (ED) Additional Instructions: You were evaluated for injuries sustained from a fall. You have a left knee effusion, which is some fluid that is in between the knee joint. Please follow- up with orthopedics. I have referred you to Robbie MATTA. please call and request an appointment for evaluation. We updated your Tdap vaccine today. We placed 14 sutures to the laceration to the left lower extremity. Please return in 10-14 days to have sutures removed. Take doxycycline 100 mg b.i.d. for 10 days. Thank you for choosing this emergency department for evaluation. Please follow-up with primary care physician as needed. Return to the emergency department for any new, concerning, or worsening symptoms. Prescriptions: New doxycycline monohydrate 100 mg capsule 100 mg PO BID 10 Days Qty: 20 0RF No Action furosemide 40 mg tablet 1 tab PO BID Qty: 30 0RF atorvastatin 40 mg tablet 1 tab PO BEDTIME Qty: 30 0RF gabapentin 600 mg tablet 1 tab PO TID Qty: 21 0RF clonazepam 1 mg tablet 1 tab PO BID PRN (Reason: anxiety) Qty: 6 0RF amlodipine 5 mg Tablet 5 mg PO DAILY Qty: 30 0RF Protocol: Hold for SBP< HOLD for SBP < : 90 quetiapine 100 mg tablet 1 tab PO BID Qty: 15 0RF clonidine HCl 0.2 mg tablet 1 tab PO TID Qty: 90 0RF (DME) blood-glucose meter [[employer] Flash System] Kit See Rx Instructions .Route Qty: 1 0RF Rx Instructions: As directed insulin lispro 100 unit/mL insulin pen 10 unit subcut TID Qty: 15 0RF insulin glargine [Lantus Solostar U-100 Insulin] 100 unit/mL (3 mL) insulin pen 80 unit subcut BEDTIME Qty: 15 0RF methadone [Methadone Intensol] 10 mg/mL Concentrate 140 mg PO DAILY Referrals: Robbie Heredia PA-C [Physician Mobile Phone Salesperson] - 1 week (Left knee effusion) Interventions: ED Discharge Assessment Last Done: 06/10/22 00:47 Discharge Date/Time: 06/10/22 00:49
[2022-06-10 00:19] VITALS: BP 126/62; PULSE 78; RESP 18; TEMP 36.6; O2SAT 95
[2022-06-10] MEDS: Doxycycline Monohydrate 100 MG CAPSULE PO (00:41)
== END 2022-06-10 00:49 | disposition home or self-care (01) ==
PROVIDERS: Emergency Provider Emergency Medicine
DX: S81.812A Laceration without foreign body, left lower leg, initial encounter (principal); S81.012A Laceration without foreign body, left knee, initial encounter; S80.812A Abrasion, left lower leg, initial encounter; M25.462 Effusion, left knee; W01.119A Fall on same level from slipping, tripping and stumbling with subsequent striking against unspecified sharp object, initial encounter; Y93.9 Activity, unspecified; Y92.9 Unspecified place or not applicable; Y99.9 Unspecified external cause status; Z79.899 Other long term (current) drug therapy
CPT/HCPCS: 12032; 73564; 73590; 90471; 90715; 99283; 99284

== ENCOUNTER 2022-07-26 16:16 | Emergency (ER) | payer MEDICAID, SELFPAY ==
--- NOTE | ~2022-07-26 | CT_ITS ---
EXAMINATION: CT ABDOMEN AND PELVIS WITHOUT CONTRAST CLINICAL INFORMATION: Epigastric pain. Recent weight loss. COMPARISON: Renal ultrasound dated 10/27/2012 and abdominal ultrasound dated 09/07/2012. TECHNIQUE: Multidetector volumetric imaging was performed from the superior aspect of the liver through the pubic symphysis. Sagittal and coronal reformatted images were obtained on the technologist's workstation. This CT examination was performed using dose optimization techniques as appropriate, variously including the following: *Automated exposure control. *Adjustment of mA and/or kV according to patient size (this includes techniques or standardized protocols for targeted exams where dose is matched to indication/reason for exam; i.e. extremities or head). *Use of iterative reconstruction technique. DLP: 1271 mGy-cm FINDINGS: LUNG BASES: Mild bibasilar dependent atelectasis. LIVER, GALLBLADDER, AND BILIARY TREE: The liver appears decreased in size with diffusely lobular contour and heterogeneous density, consistent with cirrhosis. No focal hepatic parenchymal lesion, however, evaluation is limited without contrast. No intrahepatic biliary ductal dilatation. Mildly dilated gallbladder without gallstones, wall thickening, or pericholecystic inflammatory change to suggest acute cholecystitis. PANCREAS: Mildly atrophic with mild fatty replacement. No associated inflammatory change or ductal dilatation. SPLEEN: Mildly enlarged measuring up to 15.5 cm. No discrete parenchymal lesion. ADRENAL GLANDS: Unremarkable. KIDNEYS AND URETERS: The kidneys are normal in size, shape, and attenuation. No hydronephrosis, hydroureter, or calculi seen. No perinephric stranding. BLADDER: Unremarkable. GASTROINTESTINAL TRACT: No small or large bowel obstruction. No bowel wall thickening or inflammatory change. Mild stool throughout the colon. Unremarkable appendix. PERITONEAL CAVITY: No intraabdominal free air or free fluid. No large intra-abdominal mass or organized fluid collection/abscess formation. ABDOMINAL WALL: Small, fat-containing left inguinal hernia. LYMPH NODES: No significant lymphadenopathy. VASCULAR: Unremarkable. PELVIC VISCERA: No pelvic mass or fluid collection. OSSEOUS STRUCTURES: Unremarkable. CT/CT abdomen pelvis wo IV con IMPRESSION: 1. Cirrhotic liver. No discrete hepatic parenchymal lesion, however, evaluation is limited without contrast. No intrahepatic or extrahepatic biliary ductal dilatation. 2. Mild splenomegaly. 3. No intra-abdominal mass, lymphadenopathy, or ascites. 4. No small or large bowel obstruction. No bowel wall thickening or inflammatory change. Unremarkable appendix. Fleischner guidelines were followed.
--- NOTE | ~2022-07-26 | XR_ITS ---
EXAMINATION: XR CHEST CLINICAL INFORMATION: Shortness of breath COMPARISON: 04/25/2022 TECHNIQUE: 2 views of the chest were obtained. FINDINGS: No significant abnormality is noted involving the heart, lungs, mediastinum, bony thorax or soft tissues. There is mild gaseous distention of bowel beneath the hemidiaphragms. XR/XR chest 2V IMPRESSION: Unremarkable examination.
[2022-07-26 16:21] VITALS: BP 162/90; PULSE 102; O2SAT 99
[2022-07-26 16:27] VITALS: BP 117/67; PULSE 95; RESP 22; TEMP 36.8; O2SAT 97; BMI 31.1
[2022-07-26 16:34] VITALS: RESP 22
--- NOTE | 2022-07-26 16:55 | ED.GENADULT ---
HPI - General Adult General Chief complaint: Nausea/Vomiting/Diarrhea Stated complaint: SOB XS 2 DAYS,HOME O2 2LPM,98% ON 4LPM PER EMS Time Seen by Provider: 07/26/22 16:30 Source: patient Mode of arrival: EMS Limitations: no limitations History of Present Illness HPI narrative: 52-year-old male who presents emergency department for evaluation of multiple complaints. The patient states that he has run out of his medications and has not been able to get in to see his PCP for refill. States that the earliest appointment that he can see his PCP is next week. He states that over the last 3-4 days he has been very anxious and has started drinking again. He states he drinks 1/2-1 pt of vodka per day. States his last drink was 24 hours prior to coming to the emergency department. He states he feels like he may be withdrawing, he states he feels weak and shaky. He also states he is feeling very anxious. He states that over the past 2 days he has not been able to eat or drink secondary to pain in his epigastric area. Describes as a constant, burning pain. Patient states he has had multiple episodes of vomiting over the past 2 days. He has also noted that his heart rate is been low in the 30-40 range over the last 2 days. He states that over the last 2 months he has lost 47 lb. He states that his glucose has also been high. Patient has peripheral vascular disease and diabetes and has chronic nonhealing wounds with amputations to his lower extremities. He states that he has chronic, draining, skin ulcers that drain yellow fluid constantly but over the past 2 days the drainage from the ulcer have been worsened and the drainage has a foul/ bad odor. He has not noticed any increased redness or swelling. Patient states he does go to wound care at [facility] and was seen 1-2 weeks prior, he is not on antibiotics. He denied fever but states he occasionally gets chills. He has had rhinorrhea and sore throat. He denied cough, chest pain, shortness of breath or dyspnea on exertion. He does use 2 L of oxygen via nasal cannula he has had to go to 4 L cuts he does feel like he needs more oxygen. He has had nausea and vomiting. He denied diarrhea, dark black stools or bloody stools. Complains of epigastric pain x2 days. The patient does have history of opiate use disorder and chronic pain. He states he takes methadone 120 mg a day and has been receiving his methadone he does not feel like he is withdrawing from narcotics. Related Data Home Medications Medication Instructions Recorded Confirmed methadone 10 mg/mL oral 140 mg PO DAILY 04/25/22 05/25/22 concentrate (Methadone Intensol) Previous Rx's Medication Instructions Recorded amlodipine 5 mg tablet 5 mg PO DAILY #30 tabs 06/08/22 atorvastatin 40 mg tablet 1 tab PO BEDTIME #30 tabs 06/08/22 blood-glucose meter (FreeStyle #1 ea 06/08/22 Flash System kit) clonazepam 1 mg tablet 1 tab PO BID PRN anxiety #6 tabs 06/08/22 clonidine HCl 0.2 mg tablet 1 tab PO TID #90 tabs 06/08/22 furosemide 40 mg tablet 1 tab PO BID #30 tabs 06/08/22 gabapentin 600 mg tablet 1 tab PO TID #21 tabs 06/08/22 insulin glargine 100 unit/mL (3 80 unit (0.8 mL) subcut BEDTIME 06/08/22 mL) subcutaneous pen (Lantus #15 mL Solostar U-100 Insulin) insulin lispro 100 unit/mL 10 unit (0.1 mL) subcut TID #15 mL 06/08/22 subcutaneous pen quetiapine 100 mg tablet 1 tab PO BID #15 tabs 06/08/22 doxycycline monohydrate 100 mg 100 mg PO BID 10 days #20 caps 06/10/22 capsule atorvastatin 40 mg tablet 40 mg PO DAILY 30 days #30 tabs 07/26/22 clonazepam 2 mg tablet (Klonopin) 2 mg PO BID 5 days #10 tabs 07/26/22 clonidine HCl 0.2 mg tablet 0.2 mg PO TID 30 days #90 tabs 07/26/22 doxycycline hyclate 100 mg tablet 100 mg PO Q12H 7 days #14 tabs 07/26/22 free style lite glucometer #1 ea 07/26/22 free style lite test strips #1 ea 07/26/22 gabapentin 600 mg tablet 600 mg PO TID 30 days #90 tabs 07/26/22 insulin glargine 100 unit/mL (3 60 unit (0.6 mL) subcut QPM #15 mL 07/26/22 mL) subcutaneous pen (Lantus Solostar U-100 Insulin) insulin lispro 100 unit/mL 10 unit (0.1 mL) subcut TID #15 mL 07/26/22 subcutaneous pen lancets #1 ea 07/26/22 lisinopril 20 mg tablet 20 mg PO DAILY 30 days #30 tabs 07/26/22 quetiapine 100 mg tablet (Seroquel) 100 mg PO BID 30 days #60 tabs 07/26/22 Allergies Allergy/AdvReac Type Severity Reaction Status Date / Time prochlorperazine Allergy Intermediate Hives Verified 06/09/22 17:33 [From Compazine] aspirin [ASA] Allergy Unknown HIVES Verified 06/09/22 17:33 naproxen [From NAPROSYN] Allergy Unknown HIVES Verified 06/09/22 17:33 NSAIDS (Non-Steroidal Allergy Unknown HIVES Verified 06/09/22 17:33 Anti-Inflamma [NSAIDS (NON-STEROIDAL ANTI-INFLAMMA] Penicillins [PENICILLINS] Allergy Unknown HIVES Verified 06/09/22 17:33 Review of Systems Review of Systems: Yes all other systems are reviewed and are negative [facility] Past Medical History [facility] Narrative: Past medical history: Reviewed below, the patient states that he had COVID pneumonia in 2019, he was intubated and was on a respirator/trach for approximately 10 months, since then he has been fully vaccinated with 4 vaccines. Social history: The patient states he has been drinking 1/2-1 pt of vodka per day. He denies tobacco use. He denies drug use. He states that he has a remote history of heroin and cocaine use, he is on methadone for chronic pain and for opiate use disorder. He has been receiving his methadone daily. Medical History (Updated 07/26/22 @ 21:06 by Bernard Castellanos MD) Compartment syndrome of left lower extremity Diabetes (~07/26/22) Diabetes type 2 with atherosclerosis of arteries of extremities HTN (hypertension) Opioid use disorder Post-COVID chronic dyspnea Ulcer of left foot Surgical History Status post transmetatarsal amputation of right foot Family History Family History Other No pertinent family history Social History Social History Household Members: None Housing: Apartment Housing Other:: reports no place to live Do you presently have visiting nurse or other home services: No Alcohol intake: current Alcohol intake frequency: 3 or more drinks per day Alcohol type: hard liquor Patient Tobacco Use Status: Never used Tobacco Smoked in Last 30 Days: Yes e-Cigarette/Vaping Use: Never Used Use of substances other than those prescribed or required for medical reasons: No Advance Directives: Yes Advance Directives on File: Yes Advance Directives Date on File: 05/19/22 service: No Current occupational status: disabled Physical Exam ED Vital Signs: Vital Signs - 24 hr 07/26/22 16:27 07/26/22 16:34 Temperature 98.2 F Pulse Rate 95 Respiratory Rate 22 H 22 H Blood Pressure 117/67 Pulse Oximetry 97 Oxygen Delivery Method Room Air BMI result Body Mass Index 31.1 Const General: cooperative and no acute distress Orientation/consciousness: oriented to person and oriented to place Limitations: no limitations HENMT Head: Yes normal to inspection, Yes normocephalic and Yes atraumatic Ears: external ears normal General nose exam: Normal external nose present Face and sinus: Yes normal facial exam Mouth: Normal oral and palatal mucosa present Throat: Yes posterior oropharynx normal Eyes General: appearance normal, both eyes and all related structures Pupils: Equal, round and reactive pupils present Neck Neck: Yes normal visual inspection, Yes no lymphadenopathy, Yes trachea midline and Yes supple Chest Chest palpation & inspection: normal inspection of the chest and normal palpation of entire chest wall Resp Effort & Inspection: normal respiratory effort and able to speak in complete sentences Auscultation: clear to auscultation bilaterally Cardio Rate: regular rate Rhythm: regular rhythm Heart sounds: S1 normal heart sound present, S2 normal heart sound present and no murmurs GI Inspection: Yes normal to inspection Palpation (GI): Soft to palpation, nontender and no guarding Auscultation: normal bowel sounds General: Yes no CVA tenderness Back/Spine/Pelvis Back: no CVA tenderness Skin General skin exam: no rashes or lesions noted Neuro General: oriented to person and oriented to place Cranial nerves: Yes CN's II-XII intact bilaterally and Yes Equal, round and reactive pupils present Cognition (Neuro): normal cognition Motor exam (neuro): 5/5 motor strength present throughout Extrem Other: The patient has chronic appearing wounds to his right and left foot. Right foot: Patient has amputation of the toes of the right foot with a large ulcer with some slight erythema with no increased warmth, there is no significant discharge however the dressings foul-smelling yellow drainage on them. There is no tenderness palpation over the erythematous areas and there was no significant flocculence. Left foot: The patient has an oval-shaped ulcer to the dorsal aspect of the right metatarsal, there is no significant erythema and there is no drainage at this time noted, the dressing also had a yellowish foul smelling discharge. Patient also has an oval-shaped ulcer to the ventral aspect of the foot over the 5th metatarsal, there is no increased erythema or flocculence noted, again there was a dressing with yellowish foul-smelling discharge on the dressing Psych Appearance: grossly normal Speech and movement: Normal speech and movement present Affect: normal affect Attitude: cooperative Thought process: Normal thought process present Thought content: Normal thought content present Medications Administered Discontinued Medications Generic Name Dose Route Start Last Admin Trade Name Freq PRN Reason Stop Dose Admin Clonazepam 2 mg 07/26/22 16:55 07/26/22 17:22 Clonazepam 1 Mg Tablet PO 07/26/22 16:56 2 mg ONCE STA Administration Gabapentin 600 mg 07/26/22 16:55 07/26/22 17:22 Gabapentin 600 Mg Tablet PO 07/26/22 16:56 600 mg ONCE STA Administration Sodium Chloride 1,000 mls @ 999 mls/hr 07/26/22 16:55 07/26/22 17:22 Ns IV 07/26/22 17:55 999 mls/hr .Q1H1M STA Administration Ondansetron HCl 4 mg 07/26/22 17:14 07/26/22 17:22 Ondansetron Hcl 4 Mg/2 Ml Vial IVPUSH 07/26/22 17:15 4 mg ONCE ONE Administration Quetiapine Fumarate 100 mg 07/26/22 16:55 07/26/22 17:22 Quetiapine Fumarate 100 Mg Tablet PO 07/26/22 16:56 100 mg ONCE STA Administration Medical Decision Making Medical Decision Making MDM Narrative: 52-year-old male with multiple medical problems who presents emergency department for evaluation of multiple complaints including nausea, vomiting, anxiety, drinking alcohol for several days and stopping 24 hours prior, running out of his medications for 1 week (Klonopin, Seroquel, gabapentin and other), increase discharge from chronic foot bilateral ulcers and abdominal pain, nausea and vomiting x2 days with a 50 lb weight loss over 2 months. Patient's vital signs did reveal an elevated respiratory rate of 22 otherwise were unremarkable, patient's O2 saturation on room air was 97%. I ordered a laboratory evaluation includes CBC, CMP, lipase, PT/INR, PTT, lactic acid, drug screen, ethanol level, blood cultures x2, COVID-19, RSV and influenza. I will also obtain a two view chest x-ray and a CT scan of the patient's abdomen. Patient will be placed on a cardiac and O2 saturation monitor. We will obtain an IV. Patient was ordered to get normal saline x1 L , Zofran 4 mg IV. I will also give the patient is outpatient medications including gabapentin 600 mg orally, Klonopin 2 mg orally and Seroquel 100 mg orally. 2136: Patient is feeling better after the above treatment. The nursing staff and your text were unable to get blood on the patient. I did discuss doing a femoral vein stick with the patient however states that he is feeling better and does not want any further testing. The patient's chest x-ray and CT scan of the abdomen without IV contrast was unremarkable. The patient's abdominal pain is most likely secondary to alcoholic gastritis. At this time, I am concerned that the patient may have an infection of his chronic foot ulcers therefore I will treat him with doxycycline 100 mg orally and Keflex 100 mg orally. He was given prescriptions for these medications for 1 week. The patient has asked me to refill his medications since he cannot see his doctor until 1 week from now and he needs his insulin and blood pressure medications therefore I did write refills for his outpatient medications (Lantus, Humalog, gabapentin, Seroquel, Klonopin, atorvastatin, clonidine, lisinopril, glucometer, lancets, test strips). Differential Diagnosis Differential diagnosis includes but is not limited to cellulitis, infected chronic foot ulcers, alcohol withdrawal, Klonopin withdrawal, abdominal malignancy, pneumonia, volume depletion dehydration, viral syndrome, COVID, RSV, influenza, gastritis, alcoholic gastritis Radiology Impression Discussion of test interpretation with radiology: I have reviewed the radiologist's reading. Radiologist Impression: XR chest 2V IMPRESSION: Unremarkable examination. Dictated By:Nehemias Smalls MDSigned By:<Electronically signed by Nehemias Smalls MD in [place]>07/26/[address] abdomen pelvis wo IV con IMPRESSION: 1. Cirrhotic liver. No discrete hepatic parenchymal lesion, however, evaluation is limited without contrast. No intrahepatic or extrahepatic biliary ductal dilatation. 2. Mild splenomegaly. 3. No intra-abdominal mass, lymphadenopathy, or ascites. 4. No small or large bowel obstruction. No bowel wall thickening or inflammatory change. Unremarkable appendix. Fleischner guidelines were followed. Dictated By:Francisco Moulton MDSigned By:<Electronically signed by Francisco Moulton MD in [place]>07/26/22 2030 Discharge Plan Discharge Clinical Impression: Acute dehydration, Alcohol use disorder, Foot ulcer, left, Right foot ulcer Vomiting Qualifiers: Vomiting type: unspecified Nausea presence: with nausea Qualified Code(s): R11.2 - Nausea with vomiting, unspecified Gastritis Qualifiers: Gastritis type: alcoholic Chronicity: acute Gastritis bleeding: without bleeding Qualified Code(s): K29.20 - Alcoholic gastritis without bleeding Patient Disposition: Home, Self-Care Prescriptions: New insulin glargine [Lantus Solostar U-100 Insulin] 100 unit/mL (3 mL) insulin pen 60 unit subcut QPM Qty: 15 0RF insulin lispro 100 unit/mL insulin pen 10 unit subcut TID Qty: 15 0RF gabapentin 600 mg tablet 600 mg PO TID 30 Days Qty: 90 0RF quetiapine [Seroquel] 100 mg tablet 100 mg PO BID 30 Days Qty: 60 0RF clonazepam [Klonopin] 2 mg tablet 2 mg PO BID 5 Days Qty: 10 0RF atorvastatin 40 mg tablet 40 mg PO DAILY 30 Days Qty: 30 0RF clonidine HCl 0.2 mg tablet 0.2 mg PO TID 30 Days Qty: 90 0RF lisinopril 20 mg tablet 20 mg PO DAILY 30 Days Qty: 30 0RF doxycycline hyclate 100 mg tablet 100 mg PO Q12H 7 Days Qty: 14 0RF (DME) free style lite glucometer See Rx Instructions .Route .MEDSUPPLY Qty: 1 0RF Rx Instructions: As directed (DME) free style lite test strips See Rx Instructions .Route .MEDSUPPLY Qty: 1 0RF Rx Instructions: As directed (DME) lancets See Rx Instructions .Route .MEDSUPPLY Qty: 1 0RF Rx Instructions: As directed No Action furosemide 40 mg tablet 1 tab PO BID Qty: 30 0RF atorvastatin 40 mg tablet 1 tab PO BEDTIME Qty: 30 0RF gabapentin 600 mg tablet 1 tab PO TID Qty: 21 0RF clonazepam 1 mg tablet 1 tab PO BID PRN (Reason: anxiety) Qty: 6 0RF amlodipine 5 mg Tablet 5 mg PO DAILY Qty: 30 0RF Protocol: Hold for SBP< HOLD for SBP < : 90 quetiapine 100 mg tablet 1 tab PO BID Qty: 15 0RF clonidine HCl 0.2 mg tablet 1 tab PO TID Qty: 90 0RF (DME) blood-glucose meter [FreeStyle Flash System] Kit See Rx Instructions .Route Qty: 1 0RF Rx Instructions: As directed insulin lispro 100 unit/mL insulin pen 10 unit subcut TID Qty: 15 0RF insulin glargine [Lantus Solostar U-100 Insulin] 100 unit/mL (3 mL) insulin pen 80 unit subcut BEDTIME Qty: 15 0RF methadone [Methadone Intensol] 10 mg/mL Concentrate 140 mg PO DAILY doxycycline monohydrate 100 mg capsule 100 mg PO BID 10 Days Qty: 20 0RF
[2022-07-26] MEDS: clonazePAM 1 MG TABLET 2 MG PO ×2 (17:22→20:57)
[2022-07-26] MEDS: Gabapentin 600 MG TABLET PO (17:22)
[2022-07-26] MEDS: 0.9 % Sodium Chloride 1,000 ML 999 ML IV (17:22)
[2022-07-26] MEDS: ondansetron HCL 4 MG/2 ML VIAL IVPUSH (17:22)
[2022-07-26] MEDS: QUEtiapine Fumarate 100 MG TABLET PO (17:22)
--- NOTE | 2022-07-26 17:29 | PC.NURSE ---
pt alert and oriented, skin pwd, respirations even and unlabored, pt reports vomiting and epigastric pain x2 days has been drinking about a 1/2 pint of vodka a day, last drink was yesterday, pt reports that he has gone in alcohol withdrawal in the past. pt also is a diabetic and on his left top outer foot has a an open ulcer and on the bottom of the foot as well, the sounds are foul smelling and draining, right stump also open sore and red. pt reports running out of his medications because he is getting a new pcp, pt also feeling anxious ns on the monitor and vs stable
== END 2022-07-26 21:28 | disposition home or self-care (01) ==
PROVIDERS: Emergency Provider Emergency Medicine Emergency Medical Services
DX: K29.20 Alcoholic gastritis without bleeding (principal); E86.0 Dehydration; R11.2 Nausea with vomiting, unspecified; F41.9 Anxiety disorder, unspecified; R10.13 Epigastric pain; F10.20 Alcohol dependence, uncomplicated; Y90.9 Presence of alcohol in blood, level not specified; E11.621 Type 2 diabetes mellitus with foot ulcer; L97.529 Non-pressure chronic ulcer of other part of left foot with unspecified severity; L97.519 Non-pressure chronic ulcer of other part of right foot with unspecified severity; I10 Essential (primary) hypertension; F11.20 Opioid dependence, uncomplicated; Z79.02 Long term (current) use of antithrombotics/antiplatelets; Z79.4 Long term (current) use of insulin; Z79.899 Other long term (current) drug therapy; Z89.421 Acquired absence of other right toe(s)
CPT/HCPCS: 71046; 74176; 96361; 96374; 99284; J2405

== ENCOUNTER 2022-08-05 01:11 | Inpatient (IN) | payer MEDICAID, SELFPAY ==
[2022-08-05] VITALS (8 sets, daily range): BP systolic 114–160; BP diastolic 60–84; PULSE 78–99; RESP 16–18; TEMP 36.7–37.1; O2SAT 97–99; BMI 27.7; BMI 32.8
--- NOTE | ~2022-08-05 | XR_ITS ---
EXAMINATION: XR ANKLE, RIGHT XR FOOT, RIGHT CLINICAL INFORMATION: Question osteo- COMPARISON: 05/24/2022 TECHNIQUE: 3 views of the right ankle. 2 views of the right foot. FINDINGS: Status post amputation through the proximal metatarsals. Articular alignment of the ankle and remaining foot appears anatomic. Mild degenerative change at the ankle. No suspicious cortical erosions are seen to strongly suggest osteomyelitis. Persistent soft tissue prominence at the amputation site along with scattered clips. No soft tissue gas is seen. XR/XR ankle RT min 3V IMPRESSION: Status post amputation through the proximal metatarsals. No suspicious cortical erosions to strongly suggest osteomyelitis. Persistent soft tissue prominence at the amputation site.
--- NOTE | ~2022-08-05 | XR_ITS ---
EXAMINATION: XR ANKLE, RIGHT XR FOOT, RIGHT CLINICAL INFORMATION: 05/24/2022 COMPARISON: Question osteo- TECHNIQUE: 3 views of the left ankle. 3 views of the left foot. FINDINGS: Alignment at the ankle is anatomic with mild degenerative change and surrounding soft tissue swelling. Redemonstrated screws traversing the talonavicular and calcaneocuboid articulations, as well as staple in the first metatarsal. Hardware appears intact. Redemonstrated partial resections of the fourth and fifth metatarsals. Articular alignment in the foot appears stable. No acute fracture is seen. No osseous erosions are seen to strongly suggest osteomyelitis. There is suspected soft tissue gas along the lateral foot near the fifth metatarsal. XR/XR foot LT 2V IMPRESSION: Soft tissue gas along the lateral foot near the fifth metatarsal, which may be secondary to infection. No definite osseous erosions to strongly suggest osteomyelitis. Soft tissue swelling about the ankle.
--- NOTE | ~2022-08-05 | XR_ITS ---
EXAMINATION: XR CHEST CLINICAL INFORMATION: Evaluate line placement COMPARISON: 07/26/2022 04/25/2022 TECHNIQUE: Frontal view of the chest was obtained. FINDINGS: Catheter tip overlying the junction of the superior vena cava and right atrium. There is no pneumothorax. There are some interstitial markings within the lungs. These may have a somewhat airspace component. Some of this appearance could be due to technique. Overall appearances similar to 04/25/2022. The cardiac silhouette is within normal limits. The hilar structures do not appear pathologically enlarged. XR/XR chest 1V IMPRESSION: Catheter tip overlying the junction of the superior vena cava and right atrium. There is no pneumothorax. No effusion. There are some reticular lung markings here which may well be chronic. Given this is superimposed acute process cannot be excluded. Attention to follow-up.
--- NOTE | ~2022-08-05 | CT_ITS ---
EXAMINATION: CT HEAD WITHOUT CONTRAST CLINICAL INFORMATION: Right upper extremity weakness COMPARISON: CT head 02/09/2020 TECHNIQUE: Contiguous axial imaging was performed from the skull base to vertex without intravenous administration of contrast. Coronal and sagittal reformatted images are performed at the CT scanner. [This CT examination was performed using dose optimization techniques as appropriate, variously including the following: *Automated exposure control *Adjustment of mA and/or kV according to patient size (this includes techniques or standardized protocols for targeted exams where dose is matched to indication/reason for exam; i.e. extremities or head) *Use of iterative reconstruction technique] DLP: 706 mGy-cm. FINDINGS: There is no evidence of acute intracranial hemorrhage or territorial infarction. No abnormal mass-effect or midline shift is seen. Mcneal to white matter differentiation is well preserved. No extra-axial fluid collections are identified. There is generalized global volume loss. There is mild prominence of the ventricles and the sulci . There is no osseous abnormality. The mastoid air cells and visualized portions of the paranasal sinuses are well-aerated. CT/CT head for stroke IMPRESSION: No acute intracranial pathology. This critical result was discussed with Di Stout at 2206 hours on 08/15/2022. It was ascertained that the content and urgency of the report was understood at the time of direct communication.
--- NOTE | ~2022-08-05 | CT_ITS ---
EXAMINATION: CT ANGIOGRAM HEAD AND NECK CLINICAL INFORMATION: Right upper extremity weakness. Concern for stroke. COMPARISON: CT head dated 02/09/2020 and earlier on the same date TECHNIQUE: Test bolus sequences followed by intravenous administration 70 mL of Omnipaque 350 intravenous contrast. Helical imaging was performed in the axial plane from the mediastinum to the skull vertex. Delayed postcontrast imaging of the head was also performed. The data was processed at the cytology technologist's workstation for generation of MIP sequences. Three-dimensional volume rendered reformatted images were also generated at an offline 3-D workstation. This CT examination was performed using dose optimization techniques as appropriate, variously including the following: *Automated exposure control *Adjustment of mA and/or kV according to patient size (this includes techniques or standardized protocols for targeted exams where dose is matched to indication/reason for exam; i.e. extremities or head) *Use of iterative reconstruction technique The degree of stenosis determined by NASCET criteria. DLP: 1471 mGy-cm FINDINGS: SOFT TISSUES AND LUNG APICES: Hazy groundglass opacity throughout both lungs. Interlobular septal thickening present. Mosaic attenuation suspected. CERVICAL SPINE: No acute fracture or traumatic malalignment. Mild cervical kyphosis. Degenerative ankylosis of the C4, C5 and C6 vertebral bodies. Facet arthropathy throughout the cervical spine. CTA NECK: The aortic arch has a classic configuration and the major arch vessel origins are non-stenotic. The vertebral arteries are co-dominant and both vertebral origins are widely patent. Both common carotid arteries are normal in course and caliber. Bilateral internal carotid arteries widely patent. CTA HEAD: There is normal opacification of the major intracranial vessels. No acute proximal large vessel occlusion, focal flow-limiting stenosis, or saccular intracranial aneurysm is identified. No abnormal parenchymal enhancement or regional oligemia is visualized. HEAD (delayed): No intracranial mass, intercerebral edema, hemorrhage, or midline shift is evident. The ventricles and sulci are stable in size and configuration. No extra-axial collections are appreciated. No pathologic intracranial enhancement. Dural sinuses are patent. The paranasal sinuses are well-aerated and clear. CT/CT angio head neck stroke IMPRESSION: * No large vessel occlusion or hemodynamically significant stenosis within the intracranial or extracranial arterial vasculature. * Nonspecific linear parenchymal changes at the lung apices suspicious for mild interstitial edema and air trapping, the latter suggestive of small airway inflammation. There may be a degree of chronic pulmonary fibrosis. This critical result was discussed with Dr Di Galan at 08/15/2022 11:03 PM and it was ascertained that the content and urgency of the report was understood at the time of direct communication.
--- NOTE | ~2022-08-05 | XR_ITS ---
EXAMINATION: XR ANKLE, RIGHT XR FOOT, RIGHT CLINICAL INFORMATION: Question osteo- COMPARISON: 05/24/2022 TECHNIQUE: 3 views of the right ankle. 2 views of the right foot. FINDINGS: Status post amputation through the proximal metatarsals. Articular alignment of the ankle and remaining foot appears anatomic. Mild degenerative change at the ankle. No suspicious cortical erosions are seen to strongly suggest osteomyelitis. Persistent soft tissue prominence at the amputation site along with scattered clips. No soft tissue gas is seen. XR/XR foot RT 2V IMPRESSION: Status post amputation through the proximal metatarsals. No suspicious cortical erosions to strongly suggest osteomyelitis. Persistent soft tissue prominence at the amputation site.
--- NOTE | ~2022-08-05 | XR_ITS ---
EXAMINATION: XR ANKLE, RIGHT XR FOOT, RIGHT CLINICAL INFORMATION: 05/24/2022 COMPARISON: Question osteo- TECHNIQUE: 3 views of the left ankle. 3 views of the left foot. FINDINGS: Alignment at the ankle is anatomic with mild degenerative change and surrounding soft tissue swelling. Redemonstrated screws traversing the talonavicular and calcaneocuboid articulations, as well as staple in the first metatarsal. Hardware appears intact. Redemonstrated partial resections of the fourth and fifth metatarsals. Articular alignment in the foot appears stable. No acute fracture is seen. No osseous erosions are seen to strongly suggest osteomyelitis. There is suspected soft tissue gas along the lateral foot near the fifth metatarsal. XR/XR ankle LT min 3V IMPRESSION: Soft tissue gas along the lateral foot near the fifth metatarsal, which may be secondary to infection. No definite osseous erosions to strongly suggest osteomyelitis. Soft tissue swelling about the ankle.
--- NOTE | ~2022-08-05 | US_ITS ---
EXAMINATION: NONINVASIVE ASSESSMENT OF THE ARTERIES OF BOTH LOWER EXTREMITIES WITH PVR EXAM AND BILATERAL LOWER EXTREMITY DUPLEX Tori Clarke MD CLINICAL INFORMATION: Nonhealing ulcer TECHNIQUE: Ankle pulse volume recordings, ankle pressure measurements and ankle brachial indices were obtained of the lower extremity arterial system bilaterally in addition to duplex Doppler techniques with wave form analysis and measurement of velocities in the common femoral, profunda femoral, superficial femoral, popliteal and tibial arteries. The study was performed only at rest. COMPARISON: None FINDINGS: a) AT REST: RIGHT LE. The right ankle-brachial index is: 1.14 * >0.97-1.25 = normal - no significant arterial disease * 0.75-0.96 = mild peripheral arterial disease * 0.5-0.74 = moderate peripheral arterial disease * <0.50 = severe peripheral arterial disease 2. Right ankle pressure: normal. 3. Right ankle PVR waveform: normal. 4. Right direct duplex Doppler findings: Common femoral artery: 172 cm/s, Multiphasic Profunda femoris artery: 137 cm/s, Multiphasic Superficial femoral artery (proximal): 89 cm/s, Multiphasic Superficial femoral artery (mid): 127 cm/s, Multiphasic Superficial femoral artery (distal): 117 cm/s, Multiphasic Proximal Popliteal artery: 133 cm/s, Multiphasic Mid posterior tibial artery: 127 cm/s, Multiphasic LEFT LE. The left ankle-brachial index is: 1.11 * >0.97-1.25 = normal - no significant arterial disease * 0.75-0.96 = mild peripheral arterial disease * 0.5-0.74 = moderate peripheral arterial disease * <0.50 = severe peripheral arterial disease 2. Left ankle pressure: normal. 3. Left ankle PVR waveform: normal. 4. Left direct duplex Doppler findings: Common femoral artery: 175 cm/s, Multiphasic Profunda femoris artery: 56 cm/s, Multiphasic Superficial femoral artery (proximal): 140 cm/s, Multiphasic Superficial femoral artery (mid): 150 cm/s, Multiphasic Superficial femoral artery (distal): 113 cm/s, Multiphasic Proximal Popliteal artery: 123 cm/s, Multiphasic Mid posterior tibial artery: 92 cm/s, Multiphasic US/US arterial duplex LE BI IMPRESSION: There is no evidence of any hemodynamically significant lower extremity arterial disease by pressure, waveform or duplex Doppler criteria at rest.
--- NOTE | ~2022-08-05 | MR_ITS ---
EXAMINATION: MR FOOT WITHOUT AND WITH CONTRAST, LEFT CLINICAL INFORMATION: Evaluate for osteomyelitis. COMPARISON: X-ray left foot 08/05/2022. WBC bone scan 08/05/2022. TECHNIQUE: MRI in a high-field magnet without and with contrast. 10 mL Gadavist. FINDINGS: There is metallic artifact in the 1st metatarsal shaft. There is edema and enhancement in the dorsal skin and subcutaneous tissues overlying the distal 1st metatarsal. The overlying soft tissue appears thin, question subtle ulceration in this region. Findings suggest cellulitis. No loculated fluid collection or abscess is seen. There is increased T2 signal, with foci of intermediate T1 signal in the distal 1st metatarsal head and neck. Findings may reflect reactive edema or osteomyelitis. There is metallic artifact in the region of the talonavicular joint, and the cuboid from hardware in this region. There is edema in the dorsal/lateral skin and subcutaneous tissues with enhancement in the region of the 5th metatarsal and the 5th MTP joint. Question skin ulceration in this region. Findings suggest cellulitis. There is prominent edema, bright T2/intermediate/low T1 signal in the proximal 5th metatarsal, suspicious for osteomyelitis. There is edema in the 4th metatarsal base with enhancement, nonspecific, could be related to degenerative changes. Osteomyelitis can have this appearance. There is edema and enhancement in the 3rd metatarsal base, appearing degenerative in nature. No evidence of significant tenosynovitis. Visualized tendons appear intact. Visualized plantar aponeurosis appears intact. MR/MR foot LT wo/w con IMPRESSION: 1. Abnormal findings in the dorsal subcutaneous tissues overlying the distal 1st metatarsal head/neck, concerning for cellulitis. No abscess seen. 2. Abnormal findings in the distal 1st metatarsal head/neck, nonspecific. In the setting of overlying soft tissue infection, findings are suspicious for osteomyelitis. 3. Abnormal findings in the dorsal/lateral soft tissues in the region of the 5th metatarsal base and 5th TMT joint, suggestive of cellulitis. No abscess. Question skin ulceration in this region. Clinically correlate. 4. Abnormal findings in the proximal 5th metatarsal base and shaft, suspicious for osteomyelitis. Differential consideration includes sequela of arthritis. 5. Abnormal findings in the proximal 4th metatarsal, nonspecific, could represent degenerative changes. No abnormal uptake in the WBC bone scan in this region. 6. Abnormal findings in the proximal 3rd metatarsal, appearing degenerative in nature. Recommend followup imaging for reassessment.
--- NOTE | ~2022-08-05 | US_ITS ---
EXAMINATION: NONINVASIVE ASSESSMENT OF THE ARTERIES OF BOTH LOWER EXTREMITIES WITH PVR EXAM AND BILATERAL LOWER EXTREMITY DUPLEX Tori Clarke MD CLINICAL INFORMATION: Nonhealing ulcer TECHNIQUE: Ankle pulse volume recordings, ankle pressure measurements and ankle brachial indices were obtained of the lower extremity arterial system bilaterally in addition to duplex Doppler techniques with wave form analysis and measurement of velocities in the common femoral, profunda femoral, superficial femoral, popliteal and tibial arteries. The study was performed only at rest. COMPARISON: None FINDINGS: a) AT REST: RIGHT LE. The right ankle-brachial index is: 1.14 * >0.97-1.25 = normal - no significant arterial disease * 0.75-0.96 = mild peripheral arterial disease * 0.5-0.74 = moderate peripheral arterial disease * <0.50 = severe peripheral arterial disease 2. Right ankle pressure: normal. 3. Right ankle PVR waveform: normal. 4. Right direct duplex Doppler findings: Common femoral artery: 172 cm/s, Multiphasic Profunda femoris artery: 137 cm/s, Multiphasic Superficial femoral artery (proximal): 89 cm/s, Multiphasic Superficial femoral artery (mid): 127 cm/s, Multiphasic Superficial femoral artery (distal): 117 cm/s, Multiphasic Proximal Popliteal artery: 133 cm/s, Multiphasic Mid posterior tibial artery: 127 cm/s, Multiphasic LEFT LE. The left ankle-brachial index is: 1.11 * >0.97-1.25 = normal - no significant arterial disease * 0.75-0.96 = mild peripheral arterial disease * 0.5-0.74 = moderate peripheral arterial disease * <0.50 = severe peripheral arterial disease 2. Left ankle pressure: normal. 3. Left ankle PVR waveform: normal. 4. Left direct duplex Doppler findings: Common femoral artery: 175 cm/s, Multiphasic Profunda femoris artery: 56 cm/s, Multiphasic Superficial femoral artery (proximal): 140 cm/s, Multiphasic Superficial femoral artery (mid): 150 cm/s, Multiphasic Superficial femoral artery (distal): 113 cm/s, Multiphasic Proximal Popliteal artery: 123 cm/s, Multiphasic Mid posterior tibial artery: 92 cm/s, Multiphasic US/US JANICE complete IMPRESSION: There is no evidence of any hemodynamically significant lower extremity arterial disease by pressure, waveform or duplex Doppler criteria at rest.
--- NOTE | ~2022-08-05 | NM_ITS ---
EXAMINATION: NM RADIONUCLIDE WHITE BLOOD CELL STUDY CLINICAL INFORMATION: Diabetic foot ulcers. COMPARISON: No previous labeled white cell study is available for comparison. TECHNIQUE: Multiple gamma scintillation camera images of the a radionuclide bone scan dated 04/26/2022 is available for comparison. Radiographs of the bilateral feet and ankles dated 08/05/2022, the same date as this labeled white cell study, are available for comparison. were performed 3 hours following the intravenous administration of 15 mCi Tc-99m Ceretec labeled autologous white cells. Initial rapid sequence flow images the distal lower extremities in the anterior and posterior projections were obtained immediately following the radiopharmaceutical injection. FINDINGS: Initial rapid sequence flow images of the distal lower extremities in the anterior and posterior projections mildly increased flow to the superficial distal aspect of the right foot. Blood pool images obtained immediately following the flow study show foci of mildly increased blood pool activity in the distal aspect of the right foot that is in the region of the amputation site of the proximal third metatarsal. There is also a focus of mildly increased blood pool activity that is in the region of the distal left third metatarsal bone. The delayed static images obtained at 3 hours post injection show mildly increased activity diffusely across the full width of the right foot at the amputation site. There is also mildly increased activity in the left first metatarsophalangeal joint region. There is a small focus of mildly increased activity present in the radial aspect of the right hand or wrist. No other foci of abnormal activity are visualized at any site. All of the other activity appears physiological. 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 In the left foot there is a staple in the midshaft of the first metatarsal and long screws in the calcaneus and talus. There is no abnormal white cell activity associated with any of the hardware in the left foot as the visualized activity in this foot appears more distal. NM/NM white blood scan IMPRESSION: 1. Mild activity involving the full width of the right foot at the amputation site is nonspecific but appears to be superficial and more likely associated with soft tissue infection and osteomyelitis. 2. Abnormal activity in the distal left foot is primarily at the first metatarsophalangeal joint region in most consistent with an inflammatory arthritis at this site, although osteomyelitis cannot be entirely ruled out. 3. MRI may be helpful in better characterizing all of these abnormalities, if clinically indicated.
--- NOTE | ~2022-08-05 | XR_ITS ---
EXAMINATION: XR CHEST CLINICAL INFORMATION: Shortness of breath. Hypoxia. COMPARISON: Most recent chest radiograph dated 08/12/2022. TECHNIQUE: Frontal view of the chest was obtained. FINDINGS: Right-sided central venous catheter with the tip in the region of the cavoatrial junction. Hypoinflation of the lungs without focal airspace consolidation. No pleural effusion or pneumothorax. Stable cardiomediastinal silhouette. XR/XR chest 1V IMPRESSION: Hypoinflation of the lungs without focal airspace consolidation.
--- NOTE | 2022-08-05 03:24 | PC.NURSE ---
Late entry: This RN in pt room for approximately 2 hours, debriding wounds on feet bilaterally. Wounds had toilet paper embedded in them, pt states he ran out of gauze to wrap the wounds. This RN then attempted to place IV, could not locate any veins, Stacie RN also attempted with no success. Dr. Suarez at bedside to look for EJ, no success. Attempted to look for ultrasound guided peripheral with no success. Dr. Suarez decided to place central line in right femoral vein. Blood work has now been obtained, and all medications have been started.
[2022-08-05] MEDS: 0.9 % Sodium Chloride 1,000 ML 999 ML IV (03:30)
--- NOTE | 2022-08-05 03:31 | ED_ITS ---
HPI - Wound/Laceration General Chief Complaint: Wound/Laceration Stated Complaint: feet infection Time Seen by Provider: 08/05/22 01:24 History of Present Illness HPI narrative: Patient is a 52-year-old male with a long history of diabetes, alcohol abuse, status post right toe amputations. Positive history of having ulcers to the distal aspect of the foot bilaterally. Patient was evaluated 8 days ago. At the time was given doxycycline to go home with after a course of IV antibiotic. Patient ran out of dressing. Been using alcohol. Been trying to dress the wounds with toilet paper. Patient claims he ran out of dressing. Presented today to the ED because of increasing pain and redness to the foot bilaterally. Related Data Home Medications Medication Instructions Recorded Confirmed methadone 10 mg/mL oral 140 mg PO DAILY 04/25/22 05/25/22 concentrate (Methadone Intensol) Previous Rx's Medication Instructions Recorded amlodipine 5 mg tablet 5 mg PO DAILY #30 tabs 06/08/22 atorvastatin 40 mg tablet 1 tab PO BEDTIME #30 tabs 06/08/22 blood-glucose meter (FreeStyle #1 ea 06/08/22 Flash System kit) clonazepam 1 mg tablet 1 tab PO BID PRN anxiety #6 tabs 06/08/22 clonidine HCl 0.2 mg tablet 1 tab PO TID #90 tabs 06/08/22 furosemide 40 mg tablet 1 tab PO BID #30 tabs 06/08/22 gabapentin 600 mg tablet 1 tab PO TID #21 tabs 06/08/22 insulin glargine 100 unit/mL (3 80 unit (0.8 mL) subcut BEDTIME 06/08/22 mL) subcutaneous pen (Lantus #15 mL Solostar U-100 Insulin) insulin lispro 100 unit/mL 10 unit (0.1 mL) subcut TID #15 mL 06/08/22 subcutaneous pen quetiapine 100 mg tablet 1 tab PO BID #15 tabs 06/08/22 doxycycline monohydrate 100 mg 100 mg PO BID 10 days #20 caps 06/10/22 capsule atorvastatin 40 mg tablet 40 mg PO DAILY 30 days #30 tabs 07/26/22 clonazepam 2 mg tablet (Klonopin) 2 mg PO BID 5 days #10 tabs 07/26/22 clonidine HCl 0.2 mg tablet 0.2 mg PO TID 30 days #90 tabs 07/26/22 doxycycline hyclate 100 mg tablet 100 mg PO Q12H 7 days #14 tabs 07/26/22 free style lite glucometer #1 ea 07/26/22 free style lite test strips #1 ea 07/26/22 gabapentin 600 mg tablet 600 mg PO TID 30 days #90 tabs 07/26/22 insulin glargine 100 unit/mL (3 60 unit (0.6 mL) subcut QPM #15 mL 07/26/22 mL) subcutaneous pen (Lantus Solostar U-100 Insulin) insulin lispro 100 unit/mL 10 unit (0.1 mL) subcut TID #15 mL 07/26/22 subcutaneous pen lancets #1 ea 07/26/22 lisinopril 20 mg tablet 20 mg PO DAILY 30 days #30 tabs 07/26/22 quetiapine 100 mg tablet (Seroquel) 100 mg PO BID 30 days #60 tabs 07/26/22 Allergies Allergy/AdvReac Type Severity Reaction Status Date / Time prochlorperazine Allergy Intermediate Hives Verified 06/09/22 17:33 [From Compazine] aspirin [ASA] Allergy Unknown HIVES Verified 06/09/22 17:33 naproxen [From NAPROSYN] Allergy Unknown HIVES Verified 06/09/22 17:33 NSAIDS (Non-Steroidal Allergy Unknown HIVES Verified 06/09/22 17:33 Anti-Inflamma [NSAIDS (NON-STEROIDAL ANTI-INFLAMMA] Penicillins [PENICILLINS] Allergy Unknown HIVES Verified 06/09/22 17:33 Review of Systems Review of Systems: Positive wound to bilateral foot Positive redness to the ankle Yes all other systems are reviewed and are negative [facility] Past Medical History Attestation statement: The following information was validated with the patient. Medical History Compartment syndrome of left lower extremity Diabetes (~07/26/22) Diabetes type 2 with atherosclerosis of arteries of extremities HTN (hypertension) Opioid use disorder Post-COVID chronic dyspnea Ulcer of left foot Surgical History Status post transmetatarsal amputation of right foot Family History Family History Other No pertinent family history Social History Social History Household Members: None Housing: Apartment Housing Other:: reports no place to live Do you presently have visiting nurse or other home services: No Alcohol intake: current Alcohol intake frequency: 3 or more drinks per day Alcohol type: hard liquor Patient Tobacco Use Status: Never used Tobacco e-Cigarette/Vaping Use: Never Used Advance Directives: Yes Advance Directives on File: Yes Advance Directives Date on File: 05/19/22 service: No Current occupational status: disabled Physical Exam Vital Signs: Vital Signs: Last Vital Signs Temp 98.7 F 08/05/22 01:43 Pulse 99 08/05/22 01:43 Resp 16 08/05/22 01:43 BP 160/82 H 08/05/22 01:43 Pulse Ox 99 08/05/22 01:43 O2 Del Method 08/05/22 01:43 BMI result Body Mass Index 27.7 Appearance: Alert. Oriented X3. No acute distress. Eyes: Pupils equal, round and reactive to light. ENT: Pharynx normal. Neck: Normal inspection. Neck supple. No lymph nodes noted. No crepitus CVS: Normal heart rate and rhythm. Pulses normal. Normal S1 and S2 Respiratory: No respiratory distress. Breath sounds normal. No Wheezing. No r ales Abdomen: Soft and nontender. No rigidity. No distention. good BS x4 Skin: See below. Extremities: Examination of the right foot showed amputation of all 5 toes. There is a wound to the distal aspect of the stump that was approximately 5 cm x 3 cm in size. The base seems to be infected. With surrounding area of erythema. The redness extends all the way up to the ankle. It is warm to touch Sensation was grossly intact. Examination of the left foot showed sensation grossly intact pulse 2 +at dorsalis pedis. Patient has a ulcer that was approximately 3 cm x 2 cm in size proximal to the left great toe on the dorsal surface. The wound itself is also infected. With purulent discharge noted at the base. Surrounded by erythema. There is a 2nd ulcer over the lateral aspect of the foot distally. Approximately a 7 cm x 3 cm in size. There is also area of surrounding erythema that extends all the way up to the ankle. The base of the ulcer was purulence Neuro: Oriented X 3. No motor deficit. No sensory deficit. Moving all extermities. No slurred speech Medications Administered Discontinued Medications Generic Name Dose Route Start Last Admin Trade Name Briana PRN Reason Stop Dose Admin Hydromorphone HCl 0.5 mg 08/05/22 01:57 08/05/22 03:38 Hydromorphone Hcl 0.5 Mg/0.5 Ml Syringe IVPUSH 08/05/22 01:58 0.5 mg ONCE ONE Administration Protocol Sodium Chloride 1,000 mls @ 999 mls/hr 08/05/22 02:00 08/05/22 03:30 Ns IV 08/05/22 03:00 999 mls/hr .Q1H1M RICHARD Administration Piperacillin Sod/Tazobactam 100 mls @ 200 mls/hr 08/05/22 01:57 08/05/22 03:38 Sod 4.5 gm/ Sodium Chloride IV 08/05/22 02:26 200 mls/hr ONCE ONE Administration Lorazepam 1 mg 08/05/22 01:57 08/05/22 03:38 Lorazepam 2 Mg/Ml Vial IVPUSH 08/05/22 01:58 1 mg ONCE ONE Administration Medical Decision Making Medical Decision Making [facility] Narrative: Patient failed outpatient therapy with doxycycline and Keflex. Infected foot ulcers over bilateral feet. Patient has not been taking care of his wounds. Been wrapping it in toilet paper. Cultures obtained. Labs are sent. Patient has no peripheral access. A central line was placed. Patient will receive Zosyn and vancomycin. X-ray of the foot was ordered to rule out the possibility of osteomyelitis. X-ray did not show any acute evidence of osteomyelitis. No gross fracture appreciated. Patient will be admitted for further evaluation and treatment of his diabetic foot ulcers. Lactate was normal. There is no evidence for sepsis. Being admitted. Differential Diagnosis Differential Diagnoses: The differential diagnosis associated with the prese ntation includes Osteomyelitis Cellulitis Diabetic foot ulcer Consult Healthcare Provider Management of the patient was discussed with: Hospitalist Lab Data [facility] Lab Attestation statement: I reviewed the patient's lab results. 08/05/22 03:21 08/05/22 03:21 Labs: Lab Results 08/05/22 08/05/22 08/05/22 Range/Units 03:21 03:21 03:21 WBC 7.3 (4.8-10.8) X10*3/uL RBC 3.95 L (4.60-5.80) X10*6/uL Hgb 10.5 L (14.0-18.0) g/dl Hct 32.0 L (42.0-52.0) % MCV 81.0 (80.0-98.0) fL MCH 26.6 L (27.0-33.0) pg MCHC 32.8 (31.0-36.0) g/dl RDW 16.4 H (11.0-16.0) % Plt Count 136 L D (160-400) X10*3/uL MPV 9.9 (9.4-12.4) fL Immature Gran % (Auto) 0.4 (0.0-0.4) % Neut % (Auto) 70.9 (45-73) % Lymph % (Auto) 14.1 L (20-40) % [place] % (Auto) 13.9 H (2-11) % Eos % (Auto) 0.3 (0-4) % Baso % (Auto) 0.4 (0-2) % Lymph # (Auto) 1.0 L (1.2-4.9) X10*3/uL [place] # (Auto) 1.0 (0.1-1.2) X10*3/uL Eos # (Auto) 0.0 (0.0-0.4) X10*3/uL Baso # (Auto) 0.0 (0.0-0.2) X10*3/uL Abs Immat Gran (auto) 0.03 (0.00-0.03) X10*3/uL Absolute Neuts (auto) 5.2 (2.0-8.3) x10*3/uL Absolute Nucleated RBC 0.000 (0.0-0.012) X10*3/uL Nucleated RBC % (auto) 0.0 (0.0-0.2) /100WBC Sodium 136 (135-145) mmol/L Potassium 4.5 (3.3-5.1) mmol/L Chloride 101 (96-108) mmol/L Carbon Dioxide 27 (22-29) mmol/L Anion Gap 13 (12-20) BUN 19 H (9-16) mg/dL Creatinine 0.77 (0.5-1.4) mg/dL Estim Creat Clear Calc 125.3 Estimated GFR > 60 Random Glucose 285 H (60-115) mg/dL Lactic Acid 1.3 (0.5-2.0) mmol/L Calcium 8.1 L (8.4-10.2) mg/dL C-Reactive Protein 19.73 H (< or = 0.50) mg/dL Ethyl Alcohol mg/dL 08/05/22 Range/Units 03:21 WBC (4.8-10.8) X10*3/uL RBC (4.60-5.80) X10*6/uL Hgb (14.0-18.0) g/dl Hct (42.0-52.0) % MCV (80.0-98.0) fL MCH (27.0-33.0) pg MCHC (31.0-36.0) g/dl RDW (11.0-16.0) % Plt Count (160-400) X10*3/uL MPV (9.4-12.4) fL Immature Gran % (Auto) (0.0-0.4) % Neut % (Auto) (45-73) % Lymph % (Auto) (20-40) % [place] % (Auto) (2-11) % Eos % (Auto) (0-4) % Baso % (Auto) (0-2) % Lymph # (Auto) (1.2-4.9) X10*3/uL [place] # (Auto) (0.1-1.2) X10*3/uL Eos # (Auto) (0.0-0.4) X10*3/uL Baso # (Auto) (0.0-0.2) X10*3/uL Abs Immat Gran (auto) (0.00-0.03) X10*3/uL Absolute Neuts (auto) (2.0-8.3) x10*3/uL Absolute Nucleated RBC (0.0-0.012) X10*3/uL Nucleated RBC % (auto) (0.0-0.2) /100WBC Sodium (135-145) mmol/L Potassium (3.3-5.1) mmol/L Chloride (96-108) mmol/L Carbon Dioxide (22-29) mmol/L Anion Gap (12-20) BUN (9-16) mg/dL Creatinine (0.5-1.4) mg/dL Estim Creat Clear Calc Estimated GFR Random Glucose (60-115) mg/dL Lactic Acid (0.5-2.0) mmol/L Calcium (8.4-10.2) mg/dL C-Reactive Protein (< or = 0.50) mg/dL Ethyl Alcohol < 10 mg/dL Radiology Impression Discussion of test interpretation with radiology: I have reviewed the radiologist's reading. External Record Review External record reviewed: Inpatient record Chronic Conditions Patient?s care impacted by: Diabetes and Hypertension Procedures Central Line Placement Right Femoral: Time Out Performed: Yes Patient Placed on Monitor/Pulse Ox: Yes MD Prep: mask, gown and gloves Central Line Prep: Chlorhexidine scrub Local Anesthetic: lidocaine 1% Amount of anesthesia used (mL): 5 Ultrasound Used for Placement: No Central Line Lumen Inserted: triple Post Procedure: sutured in place, good blood return, all ports aspirated, flushed, capped and sterile dressing applied Patient Tolerated Procedure: well Complications: none Critical Care Time Critical Care Time Critical Care Time: Yes Total Critical Care Time: 40 Attestation: I have personally provided 40 minutes of critical care time exclusive of time spent on separately billable procedures. Time includes review of lab data, radiology results, discussion with consultants, and monitoring for potential decompensation. Interventions were performed as documented above Discharge Plan Discharge Clinical Impression: Diabetes, Cellulitis, Diabetic foot ulcer Patient Disposition: Admitted As Inpatient
[2022-08-05] MEDS: HYDROmorphone HCl 0.5 MG/0.5 ML SYRINGE IVPUSH (03:38)
[2022-08-05] MEDS: LORazepam 2 MG/ML VIAL 1 MG IVPUSH (03:38)
[2022-08-05] MEDS: Piperacillin Sodium/Tazobactam 4.5 GM in 0.9 % Sodium Chloride 100 ML IV (03:38)
[2022-08-05 03:46] LABS: MANUAL DIFF FLAG NO
[2022-08-05 03:47] LABS: Basophils Percent Auto 0.4 % (0-2); Eosinophils Percent Auto 0.3 % (0-4); Hemoglobin 10.5 g/dl (14.0-18.0); Imm Gran Abs Auto 0.03 X10*3/uL (0.00-0.03); Imm Gran Pct Auto 0.4 % (0.0-0.4); Lymphocytes Percent Auto 14.1 % (20-40); Mean Corpuscular HGB Conc 32.8 g/dl (31.0-36.0); Mean Corpuscular Hemoglobin 26.6 pg (27.0-33.0); Mean Platelet Volume 9.9 fL (9.4-12.4); Monocytes Percent Auto 13.9 % (2-11); Neutrophils Absolute Auto 5.2 x10*3/uL (2.0-8.3); Neutrophils Percent Auto 70.9 % (45-73); Platelet Count 136 X10*3/uL (160-400); Red Blood Count 3.95 X10*6/uL (4.60-5.80); Red Cell Distribution Width 16.4 % (11.0-16.0); White Blood Count 7.3 X10*3/uL (4.8-10.8)
[2022-08-05 03:58] LABS: Lactic Acid 1.3 mmol/L (0.5-2.0)
[2022-08-05 04:13] LABS: Anion Gap 13 (12-20); Blood Urea Nitrogen 19 mg/dL (9-16); C Reactive Protein 19.73 mg/dL (< or = 0.50); Calcium 8.1 mg/dL (8.4-10.2); Carbon Dioxide 27 mmol/L (22-29); Chloride 101 mmol/L (96-108); Creatinine Clr Calc Pharmacy 125.3; Estimated Glomerular Filt Rate > 60; Ethanol < 10 mg/dL; Glucose Random 285 mg/dL (60-115); Potassium 4.5 mmol/L (3.3-5.1); Sodium 136 mmol/L (135-145)
--- NOTE | 2022-08-05 04:21 | P.HPHOSP_ITS ---
History of Present Illness Date of Service: 08/05/22 Chief Complaint: Foot wound This is a 52-year-old male with pertinent history of insulin-dependent diabetes mellitus, peripheral vascular disease, opiate use disorder on methadone, chronic hypoxemic respiratory failure on 2 L baseline oxygen due to COVID, essential hypertension, mood disorder, mixed hyperlipidemia who presents to the emergency department for concerns of foot infection. Patient was seen in the ER on 07/26 and discharged on p.o. antibiotics for concerns of infection of diabetic foot ulcers. Patient states he took his p.o. antibiotics but he continued to have purulent drainage from his ulcers, redness, swelling and pain. Also admits inte rmittent fevers and chills. Patient states he ran out of dressing so he was trying to cover his also with toilet paper. He denies chest discomfort, palpitations, shortness of breath, abdominal pain, changes in urinary or bowel habits. Patient states he had been drinking alcohol all day to relieve his pain from foot ulcers. Never had alcohol withdrawal In the emergency department, imaging with soft tissue gas along left lateral foot Review of Systems Constitutional: Constitutional: Reports chills, Reports fatigue and Reports fever(s) Cardiovascular: Cardiovascular: Reports no additional cardiovascular complaints Respiratory: Respiratory: Reports no additional respiratory complaints Gastrointestinal: Gastrointestinal: Reports no additional gastrointestinal complaints Genitourinary: Genitourinary: Reports no additional male genitourinary complaints Musculoskeletal: Musculoskeletal: Reports arthralgias Endocrine: Endocrine: Reports fatigue [facility] Medical History Compartment syndrome of left lower extremity Diabetes (~07/26/22) Diabetes type 2 with atherosclerosis of arteries of extremities HTN (hypertension) Opioid use disorder Post-COVID chronic dyspnea Ulcer of left foot Family History Other No pertinent family history Surgical History Status post transmetatarsal amputation of right foot Social History Household Members: None Housing: Apartment Housing Other:: reports no place to live Do you presently have visiting nurse or other home services: No Alcohol intake: current Alcohol intake frequency: 3 or more drinks per day Alcohol type: hard liquor Patient Tobacco Use Status: Never used Tobacco e-Cigarette/Vaping Use: Never Used Advance Directives: Yes Advance Directives on File: Yes Advance Directives Date on File: 05/19/22 service: No Current occupational status: disabled Meds Allergies Allergy/AdvReac Type Severity Reaction Status Date / Time prochlorperazine Allergy Intermediate Hives Verified 06/09/22 17:33 [From Compazine] aspirin [ASA] Allergy Unknown HIVES Verified 06/09/22 17:33 naproxen [From NAPROSYN] Allergy Unknown HIVES Verified 06/09/22 17:33 NSAIDS (Non-Steroidal Allergy Unknown HIVES Verified 06/09/22 17:33 Anti-Inflamma [NSAIDS (NON-STEROIDAL ANTI-INFLAMMA] Penicillins [PENICILLINS] Allergy Unknown HIVES Verified 06/09/22 17:33 Active Medications: Current Medications Pharmacy Consult (Consult Rx Vancomycin Dosing) 1 each MISCELLANE DAILY PRN PRN Reason: Consult order Home Medications Medication Instructions Recorded Confirmed Last Taken Type methadone 10 mg/mL oral 140 mg PO DAILY 04/25/22 05/25/22 05/22/22 History concentrate (Methadone Intensol) Physical Exam Vital Signs and Narrative: Vital Signs: Last Vital Signs Temp 98.7 F 08/05/22 01:43 Pulse 99 08/05/22 01:43 Resp 16 08/05/22 01:43 BP 160/82 H 08/05/22 01:43 Pulse Ox 99 08/05/22 01:43 O2 Del Method 08/05/22 01:43 BMI result Body Mass Index 27.7 Middle-aged male lying in bed in no distress Neck supple, no JVD Regular rate and rhythm, S1-S2 heard Regular breath sounds bilaterally, no wheezing or crackles appreciated Abdomen soft nontender, no guarding, no rigidity Patient is awake, alert and oriented to self, place, time and person ; no focal motor deficit Musculoskeletal: Bilateral lower extremity with ulcers with serosanguineous drainage Results Labs 08/05/22 03:21 08/05/22 03:21 Labs: Laboratory Results - last 24 hr 08/05/22 08/05/22 08/05/22 03:21 03:21 03:21 MCV 81.0 MCH 26.6 L MCHC 32.8 RDW 16.4 H Plt Count 136 L D MPV 9.9 Immature Gran % (Auto) 0.4 Neut % (Auto) 70.9 Lymph % (Auto) 14.1 L [place] % (Auto) 13.9 H Eos % (Auto) 0.3 Baso % (Auto) 0.4 Lymph # (Auto) 1.0 L [place] # (Auto) 1.0 Eos # (Auto) 0.0 Baso # (Auto) 0.0 Abs Immat Gran (auto) 0.03 Absolute Neuts (auto) 5.2 Absolute Nucleated RBC 0.000 Nucleated RBC % (auto) 0.0 Anion Gap 13 Estim Creat Clear Calc 125.3 Estimated GFR > 60 Random Glucose 285 H Lactic Acid 1.3 Calcium 8.1 L C-Reactive Protein 19.73 H Ethyl Alcohol 08/05/22 03:21 MCV MCH MCHC RDW Plt Count MPV Immature Gran % (Auto) Neut % (Auto) Lymph % (Auto) [place] % (Auto) Eos % (Auto) Baso % (Auto) Lymph # (Auto) [place] # (Auto) Eos # (Auto) Baso # (Auto) Abs Immat Gran (auto) Absolute Neuts (auto) Absolute Nucleated RBC Nucleated RBC % (auto) Anion Gap Estim Creat Clear Calc Estimated GFR Random Glucose Lactic Acid Calcium C-Reactive Protein Ethyl Alcohol < 10 Imaging Radiologist's Impressions: Impressions Ankle X-Ray 08/05/22 04:05 IMPRESSION: Status post amputation through the proximal metatarsals. No suspicious cortical erosions to strongly suggest osteomyelitis. Persistent soft tissue prominence at the amputation site. Foot X-Ray 08/05/22 04:05 IMPRESSION: Status post amputation through the proximal metatarsals. No suspicious cortical erosions to strongly suggest osteomyelitis. Persistent soft tissue prominence at the amputation site. Assessment and Plan (1) Diabetic foot ulcer: Status: Acute Plan This is a 52-year-old male with pertinent history of insulin-dependent diabetes mellitus, peripheral vascular disease, opiate use disorder on methadone, chronic hypoxemic respiratory failure on 2 L baseline oxygen due to COVID, essential hypertension, mood disorder, mixed hyperlipidemia who presents to the emergency department for concerns of foot infection. #. Bilateral lower extremity diabetic foot infection with cellulitis and nonhealing ulcers: Initiating broad-spectrum IV antibiotics. Soft tissue gas noted, adding clindamycin. Obtaining MRI to rule out osteomyelitis. Consulting Infectious Disease and vascular surgery, appreciate assistance #. Uncontrolled insulin-dependent diabetes mellitus with hyperglycemia: Initiating basal plus regimen #. Opiate use disorder on methadone #. Alcohol use disorder: Monitor CIWA. Initiating thiamine. CARE team consulted #. Essential hypertension: Continue home antihypertensives #. Mood disorder: Continue home mood stabilizers #. Chronic hypoxemic respiratory failure secondary to COVID-19: Patient states he uses 2 L baseline during ambulation #. Mixed hyperlipidemia: On statin #. Chronic normocytic anemia. Hemoglobin above transfusion threshold Med rec pending DVT prophylaxis: Lovenox 40 mg daily Diabetic diet Full code Admit as inpatient and will require two night minimum hospital stay for IV antibiotics Time Spent With Patient Time: Total time managing care of this patient today ____ minutes. Quality Stroke Does the patient have a stroke diagnosis?: No VTE Prior VTE?: No VTE Risk Level:: Medical - moderate - high VTE Device Contraindication: Treatment Not Indicated VTE Drug Contraindication: N/A - Med Ordered
[2022-08-05 04:27] LABS: Erythrocyte Sedimentation Rate 70 MM/HR (0-15)
--- NOTE | 2022-08-05 04:42 | PC.NURSE ---
pt was a difficult stick, dr evangelista placed a femoral tlc.
[2022-08-05] MEDS: Insulin Glargine,Hum.rec.anlog 100 UNIT/ML 10 ML VIAL 50 UNIT SUBCUT ×2 (05:07→20:54)
--- NOTE | 2022-08-05 05:12 | PC.NURSE ---
called production planning supervisor for maxipine not availble in pyxis
[2022-08-05] MEDS: cefEPime HCl 2 GM in 0.9 % Sodium Chloride 50 ML IV ×3 (05:41→21:47)
[2022-08-05] MEDS: Thiamine HCL 100 MG TABLET PO ×2 (06:03→09:16)
[2022-08-05] MEDS: ondansetron HCL 4 MG/2 ML VIAL IVPUSH (06:07)
--- NOTE | 2022-08-05 06:10 | PC.NURSE ---
pt nausea treated and resolved.
[2022-08-05] MEDS: Clindamycin Phosphate/D5W 900 MG/50 ML PIGGYBACK 50 MG IV ×3 (06:42→22:23)
[2022-08-05 06:54] LABS: MANUAL DIFF FLAG NO
[2022-08-05 06:56] LABS: Basophils Percent Auto 0.1 % (0-2); Eosinophils Absolute Auto 0.1 X10*3/uL (0.0-0.4); Eosinophils Percent Auto 0.7 % (0-4); Hematocrit 31.3 % (42.0-52.0); Hemoglobin 10.2 g/dl (14.0-18.0); Imm Gran Abs Auto 0.02 X10*3/uL (0.00-0.03); Imm Gran Pct Auto 0.3 % (0.0-0.4); Lymphocytes Absolute Auto 1.1 X10*3/uL (1.2-4.9); Lymphocytes Percent Auto 14.2 % (20-40); Mean Corpuscular HGB Conc 32.6 g/dl (31.0-36.0); Mean Corpuscular Hemoglobin 26.6 pg (27.0-33.0); Mean Corpuscular Volume 81.5 fL (80.0-98.0); Mean Platelet Volume 9.8 fL (9.4-12.4); Monocytes Absolute Auto 1.1 X10*3/uL (0.1-1.2); Monocytes Percent Auto 14.1 % (2-11); Neutrophils Absolute Auto 5.3 x10*3/uL (2.0-8.3); Neutrophils Percent Auto 70.6 % (45-73); Platelet Count 135 X10*3/uL (160-400); Red Blood Count 3.84 X10*6/uL (4.60-5.80); Red Cell Distribution Width 16.6 % (11.0-16.0); White Blood Count 7.4 X10*3/uL (4.8-10.8)
--- NOTE | 2022-08-05 07:13 | P.PNIM_ITS ---
Subjective Subjective Date of Service: 08/06/22 Interval History: f/u on diabetic foot ulcer pain in the foot Physical Exam Vital Signs: Vital Signs: Last Vital Signs Temp 98.5 F 08/05/22 05:31 Pulse 93 08/05/22 06:02 Resp 18 08/05/22 06:02 BP 143/60 H 08/05/22 06:02 Pulse Ox 97 08/05/22 05:31 O2 Del Method 08/05/22 05:31 O2 Flow Rate 2 08/05/22 05:31 BMI result Body Mass Index 27.7 Const: Other: ? Middle-aged male lying in bed in no distress Neck supple, no JVD Regular rate and rhythm, S1-S2 heard Regular breath sounds bilaterally, no wheezing or crackles appreciated Abdomen soft nontender, no guarding, no rigidity Patient is awake, alert and oriented to self, place, time and person ; no focal motor deficit Musculoskeletal:? Bilateral lower extremity with ulcers with serosanguineous drainag Objective Data Active Medications Acetaminophen (Acetaminophen 325 Mg Tablet) 650 mg PO Q6H PRN PRN Reason: Pain, Mild (Pain Scale 1-3) Dextrose (Dextrose 50 % 25 Gm/50 Ml Syringe) 25 gm IVPUSH Q15M PRN; Protocol PRN Reason: per Hypoglycemia Standing Ord. Glucose (Glucose Gel 15 Gm Gel..Gram.) 15 gm PO Q15M PRN; Protocol PRN Reason: per Hypoglycemia Standing Ord. Cefepime HCl 2 gm/ Sodium (Chloride) 50 mls @ 100 mls/hr IV Q8H [facility] Last Infusion: 08/05/22 06:14 Dose: 0 mls/hr Documented By: RUDY Clindamycin Phosphate (Cleocin) 900 mg in 50 mls @ 50 mls/hr IV Q8H [facility] Last Admin: 08/05/22 06:42 Dose: 50 mls/hr Documented By: RUDY Insulin Glargine (Insulin Glargine,Hum.Rec.Anlog 100 Unit/Ml 10 Ml Vial) 50 unit SUBCUT BEDTIME [facility] Last Admin: 08/05/22 05:07 Dose: 50 unit Documented By: TANK Insulin Human Lispro (Insulin Lispro 100 Unit/Ml 3 Ml Vial) 0 unit SUBCUT QIDACHS [facility]; Protocol Melatonin (Melatonin 3 Mg Tablet) 6 mg PO BEDTIME PRN PRN Reason: Insomnia Ondansetron HCl (Ondansetron Hcl 4 Mg/2 Ml Vial) 4 mg IVPUSH Q8H PRN PRN Reason: Nausea and Vomiting Last Admin: 08/05/22 06:07 Dose: 4 mg Documented By: RUDY Pharmacy Consult (Consult Rx Vancomycin Dosing) 1 each MISCELLANE DAILY PRN PRN Reason: Consult order Pharmacy Consult (Consult Rx Perform Med Rec) 1 each MISCELLANE ONCE PRN PRN Reason: Consult order Sodium Chloride (0.9 % Sodium Chloride Flush 3 Ml Syringe) 3 ml IVFLUSH QSHIFT RICHARD Thiamine HCl (Thiamine Hcl 100 Mg Tablet) 100 mg PO DAILY [facility]ICHARD Last Admin: 08/05/22 06:03 Dose: 100 mg Documented By: RUDY Labs 08/05/22 06:50 08/05/22 03:21 Labs: Laboratory Results - last 24 hr 08/05/22 08/05/22 08/05/22 03:21 03:21 03:21 MCV 81.0 MCH 26.6 L MCHC 32.8 RDW 16.4 H Plt Count 136 L D MPV 9.9 Immature Gran % (Auto) 0.4 Neut % (Auto) 70.9 Lymph % (Auto) 14.1 L Jay % (Auto) 13.9 H Eos % (Auto) 0.3 Baso % (Auto) 0.4 Lymph # (Auto) 1.0 L Jay # (Auto) 1.0 Eos # (Auto) 0.0 Baso # (Auto) 0.0 Abs Immat Gran (auto) 0.03 Absolute Neuts (auto) 5.2 Absolute Nucleated RBC 0.000 Nucleated RBC % (auto) 0.0 ESR Anion Gap 13 Estim Creat Clear Calc 125.3 Estimated GFR > 60 Random Glucose 285 H Lactic Acid 1.3 Calcium 8.1 L C-Reactive Protein 19.73 H Ethyl Alcohol 08/05/22 08/05/22 08/05/22 03:21 03:21 06:50 MCV 81.5 MCH 26.6 L MCHC 32.6 RDW 16.6 H Plt Count 135 L MPV 9.8 Immature Gran % (Auto) 0.3 Neut % (Auto) 70.6 Lymph % (Auto) 14.2 L Jay % (Auto) 14.1 H Eos % (Auto) 0.7 Baso % (Auto) 0.1 Lymph # (Auto) 1.1 L Jay # (Auto) 1.1 Eos # (Auto) 0.1 Baso # (Auto) 0.0 Abs Immat Gran (auto) 0.02 Absolute Neuts (auto) 5.3 Absolute Nucleated RBC 0.000 Nucleated RBC % (auto) 0.0 ESR 70 H Anion Gap Estim Creat Clear Calc Estimated GFR Random Glucose Lactic Acid Calcium C-Reactive Protein Ethyl Alcohol < 10 Assessment and Plan (1) Diabetic foot ulcer: Status: Acute (2) Diabetes: Status: Acute (3) Cellulitis: Status: Acute Plan 52-year-old male with pertinent history of insulin-dependent diabetes mellitus, peripheral vascular disease, opiate use disorder on methadone, chronic hypoxemic respiratory failure on 2 L baseline oxygen due to COVID, essential hypertension, mood disorder, mixed hyperlipidemia who presents to the emergency department for concerns of foot infection. #.?Bilateral lower extremity diabetic foot infection with cellulitis and nonhealing ulcers. He was treated for 6 weeks of Abx in Jun White cell scan suggest soft tissue infection and acute osteomylitis Presently on Cefepime, Clinda and Vanco will likely need long-term Abx #.? insulin-dependent diabetes mellitus with hyperglycemia:better. continue present regimen #.? Alcohol use disorder:?CIWA.? Initiating thiamine. CARE team consulted #.? Essential hypertension: Continue home antihypertensives #.? Mood disorder:? Continue home mood stabilizers #.? Chronic hypoxemic respiratory failure secondary to COVID-19:? Patient states he uses 2 L baseline during ambulation #.? Mixed hyperlipidemia: On statin #.? Chronic normocytic anemia.? Hemoglobin above transfusion threshold DVT prophylaxis:? Lovenox 40 mg daily Diabetic diet Full code need for inpatient:IV Abx for acute osteomylitis Time Spent With Patient Time: Total time managing care of this patient today ____ minutes. Quality Stroke Does the patient have a stroke diagnosis?: No VTE Prior VTE?: No VTE Risk Level:: Medical - moderate - high VTE Device Contraindication: Treatment Not Indicated VTE Drug Contraindication: N/A - Med Ordered
[2022-08-05 07:15] LABS: Anion Gap 11 (12-20); Blood Urea Nitrogen 17 mg/dL (9-16); Calcium 8.1 mg/dL (8.4-10.2); Carbon Dioxide 28 mmol/L (22-29); Chloride 102 mmol/L (96-108); Creatinine Clr Calc Pharmacy 116.3; Estimated Glomerular Filt Rate > 60; Glucose Random 271 mg/dL (60-115); Potassium 4.4 mmol/L (3.3-5.1); Sodium 137 mmol/L (135-145)
[2022-08-05 07:19] LABS: Glucose, Whole Blood 257 mg/dL (60-115)
--- NOTE | 2022-08-05 07:25 | PC.NURSE ---
pt alert and oriented, skin pwd, respirations even and unlabored. pt's right toes has been amputated-stump with an old wound that is not heeling well, no visible draining at this time but the foot is red all the way up to the lower calf area and tender, left foot multiple smaller wounds- foot also red in color and tender. pt reports having multiple falls at home tripping on his walker, abrasions to his left and right upper arm, another wound on the left inner wrist. pain at 9/10 triple lumen inserted on the right groin area prior to this rn arrival.
[2022-08-05] MEDS: Insulin Lispro 100 UNIT/ML 3 ML VIAL SUBCUT ×2 (07:29→19:40)
[2022-08-05 07:43] LABS: COVID-19 Test Negative (Negative); IDNOW Serial# 16C4AD1C
[2022-08-05] MEDS: 0.9 % Sodium Chloride Flush 3 ML SYRINGE IVFLUSH ×3 (07:44→19:28)
--- NOTE | 2022-08-05 08:06 | PHA.PROG ---
Admission Date/Time: August 05, 2022 04:34 Indication: SKIN/SKIN STRUCTURE Weight in k.254 kg Adjusted body weight in K.042 [place] body weight in Kg: Obesity Dosing Indication % IBW: Serum Creatinine - Last 168 Hours 08/05/22 08/05/22 03:21 06:50 Creatinine 0.77 0.83 Estimated CrCl and GFR - Last 168 Hours 08/05/22 08/05/22 03:21 06:50 Estim Creat Clear Calc 125.3 116.3 Estimated GFR > 60 > 60 Vancomycin Loading Dose: 2000 Current Vancomycin Dosing Regimen: 1250 Q12H Vancomycin Monitoring using AUC goal of 400 - 600 range with trough as surrogate marker: AUC 491, TROUGH 15.1 Date and Time for next Vancomycin Level to be drawn: 08/06 @1700 Pharmacist Comments on Vancomycin Plan: Vancomycin dosing will take advantage of [employer] as a clinical decision support tool that uses Bayesian modeling to calculate individual patient's pharmacokinetic parameters and forecast the patient's drug concentration time course with the target goal AUC 24 range of 400 - 600 mg/L/hr.
--- NOTE | 2022-08-05 08:18 | PHA.MEDREC ---
Pharmacy Consult ? Medication Reconciliation Pharmacy has completed the medication reconciliation.
--- NOTE | 2022-08-05 10:04 | HE.PHANOTE ---
RE METHADONE LAST DOSE WAS 122MG ON 08/04 ALLY
[2022-08-05] MEDS: cloNIDine HCL 0.2 MG TABLET PO ×2 (10:33→20:53)
[2022-08-05] MEDS: Gabapentin 600 MG TABLET PO ×2 (10:34→20:53)
[2022-08-05] MEDS: amLODIPine Besylate 5 MG TABLET PO (10:34)
[2022-08-05] MEDS: clonazePAM 1 MG TABLET 2 MG PO ×2 (10:34→20:53)
[2022-08-05] MEDS: methADONE HCl 20 MG/2 ML ORAL.CONC 120 MG PO (10:35)
[2022-08-05] MEDS: lisinopriL 20 MG TABLET PO (10:35)
[2022-08-05] MEDS: QUEtiapine Fumarate 100 MG TABLET PO ×2 (10:45→20:53)
[2022-08-05 10:55] LABS: Glucose, Whole Blood 122 mg/dL (60-115)
[2022-08-05 12:17] LABS: Glucose, Whole Blood 122 mg/dL (60-115)
--- NOTE | 2022-08-05 15:28 | PC.NURSE ---
pt is presenting sleepier then earlier today, pupils pinpoint, this rn asked if pt had any extra bottles of his medications with him and self medicating himself-pt instantly got offensive and yells at this rn. campus recruiting internship aware of this event
--- NOTE | 2022-08-05 15:29 | MHC.CM.PN ---
Met with pt to discuss d/c needs: pt very drowsy: falling asleep during assessment/interview. Pt resides alone: has no services per him, receives Methadone from [facility] but couldn't say how he receives his dosing (take home vs daily visits) Pt states he uses the bus for all transportation needs. He has a w/c and wheeled walker. Discussed possible d/c plans including STR placement should he require LT ATB for his foot wounds or possible BKA. (laughing) I'm not going anywhere. The visiting nurse can come to me. Review of past admissions note pt has left AMA from several facilities and has not been compliant with home visits. Ongoing ETOH abuse. HCP on file, will need BLS transportation at d/c. Will refer to [facility] for skilled visits. CM to follow.
--- NOTE | 2022-08-05 15:55 | P.CNID_ITS ---
History of Present Illness Data of Consult Service Date: 08/05/22 Requesting physician: Luis Alberto Primary Care Provider: [facility] YOV[facility] Reason for consult: wound infection concerns I had been seeing him for concerns over wound infection since [place]. He has worsening redness he says. He has XRay unremarkable for osteomyelitis. Review of Systems Review of Systems: Yes all other systems are reviewed and are negative PMFSH Past Medical History Medical History Compartment syndrome of left lower extremity Diabetes (~07/26/22) Diabetes type 2 with atherosclerosis of arteries of extremities HTN (hypertension) Opioid use disorder Post-COVID chronic dyspnea Ulcer of left foot Family History Family History Other No pertinent family history Family history: reviewed and not pertinent Surgical History Surgical History Status post transmetatarsal amputation of right foot Social History Social History Household Members: None Housing: Apartment Housing Other:: reports no place to live Do you presently have visiting nurse or other home services: No Alcohol intake: former Patient Tobacco Use Status: Never used Tobacco Smoked in Last 30 Days: No e-Cigarette/Vaping Use: Never Used Use of substances other than those prescribed or required for medical reasons: No Advance Directives: Yes Advance Directives on File: Yes Advance Directives Date on File: 05/19/22 service: No Current occupational status: disabled Meds Allergies Allergy/AdvReac Type Severity Reaction Status Date / Time prochlorperazine Allergy Intermediate Hives Verified 06/09/22 17:33 [From Compazine] aspirin [ASA] Allergy Unknown HIVES Verified 06/09/22 17:33 naproxen [From NAPROSYN] Allergy Unknown HIVES Verified 06/09/22 17:33 NSAIDS (Non-Steroidal Allergy Unknown HIVES Verified 06/09/22 17:33 Anti-Inflamma [NSAIDS (NON-STEROIDAL ANTI-INFLAMMA] Penicillins [PENICILLINS] Allergy Unknown HIVES Verified 06/09/22 17:33 Active Medications: Current Medications Acetaminophen (Acetaminophen 325 Mg Tablet) 650 mg PO Q6H PRN PRN Reason: Pain, Mild (Pain Scale 1-3) Amlodipine Besylate (Amlodipine Besylate 5 Mg Tablet) 5 mg PO DAILY [facility]; Protocol Last Admin: 08/05/22 10:34 Dose: 5 mg Atorvastatin Calcium (Atorvastatin Calcium 40 Mg Tablet) 40 mg PO BEDTIME [facility] Clonazepam (Clonazepam 1 Mg Tablet) 2 mg PO BID [facility] Last Admin: 08/05/22 10:34 Dose: 2 mg Clonidine HCl (Clonidine Hcl 0.2 Mg Tablet) 0.2 mg PO TID [facility]; Protocol Last Admin: 08/05/22 15:22 Dose: 0.2 mg Dextrose (Dextrose 50 % 25 Gm/50 Ml Syringe) 25 gm IVPUSH Q15M PRN; Protocol PRN Reason: per Hypoglycemia Standing Ord. Gabapentin (Gabapentin 600 Mg Tablet) 600 mg PO TID [facility] Last Admin: 08/05/22 15:22 Dose: 600 mg Glucose (Glucose Gel 15 Gm Gel..Gram.) 15 gm PO Q15M PRN; Protocol PRN Reason: per Hypoglycemia Standing Ord. Cefepime HCl 2 gm/ Sodium (Chloride) 50 mls @ 100 mls/hr IV Q8H [facility] Last Admin: 08/05/22 14:50 Dose: 100 mls/hr Clindamycin Phosphate (Cleocin) 900 mg in 50 mls @ 50 mls/hr IV Q8H [facility] Last Admin: 08/05/22 15:22 Dose: 50 mls/hr Vancomycin HCl 1,250 mg/ (Sodium Chloride) 250 mls @ 166.667 mls/hr IV Q12H [facility] Insulin Glargine (Insulin Glargine,Hum.Rec.Anlog 100 Unit/Ml 10 Ml Vial) 50 unit SUBCUT BEDTIME [facility] Last Admin: 08/05/22 05:07 Dose: 50 unit Insulin Glargine (Insulin Glargine,Hum.Rec.Anlog 100 Unit/Ml 10 Ml Vial) 60 unit SUBCUT BEDTIME [facility] Insulin Human Lispro (Insulin Lispro 100 Unit/Ml 3 Ml Vial) 0 unit SUBCUT QIDACHS [facility]; Protocol Last Admin: 08/05/22 12:30 Dose: Not Given Insulin Human Lispro (Insulin Lispro 100 Unit/Ml 3 Ml Vial) 10 unit SUBCUT TID [facility] Lisinopril (Lisinopril 20 Mg Tablet) 20 mg PO DAILY [facility]; Protocol Last Admin: 08/05/22 10:35 Dose: 20 mg Melatonin (Melatonin 3 Mg Tablet) 6 mg PO BEDTIME PRN PRN Reason: Insomnia Methadone HCl (Methadone Hcl 20 Mg/2 Ml Oral.Conc) 120 mg PO DAILY [facility] Last Admin: 08/05/22 10:35 Dose: 120 mg Ondansetron HCl (Ondansetron Hcl 4 Mg/2 Ml Vial) 4 mg IVPUSH Q8H PRN PRN Reason: Nausea and Vomiting Last Admin: 08/05/22 06:07 Dose: 4 mg Pharmacy Consult (Consult Rx Vancomycin Dosing) 1 each MISCELLANE DAILY PRN PRN Reason: Consult order Pharmacy Consult (Consult Rx Perform Med Rec) 1 each MISCELLANE ONCE PRN PRN Reason: Consult order Quetiapine Fumarate (Quetiapine Fumarate 100 Mg Tablet) 100 mg PO BID [facility] Last Admin: 08/05/22 10:45 Dose: 100 mg Sodium Chloride (0.9 % Sodium Chloride Flush 3 Ml Syringe) 3 ml IVFLUSH QSHIFT [facility] Last Admin: 08/05/22 14:51 Dose: 3 ml Thiamine HCl (Thiamine Hcl 100 Mg Tablet) 100 mg PO DAILY [facility] Last Admin: 08/05/22 09:16 Dose: 100 mg Home Medications Medication Instructions Recorded Confirmed Last Taken Type methadone 10 mg/mL oral 122 mg PO DAILY 04/25/22 08/05/22 08/04/22 History concentrate (Methadone Intensol) quetiapine 100 mg tablet 1 tab PO BID 08/05/22 08/05/22 Unknown History Physical Exam Vital Signs: Vital Signs: Last Vital Signs Temp 98.8 F 08/05/22 07:41 Pulse 86 08/05/22 15:23 Resp 18 08/05/22 15:23 BP 115/67 08/05/22 15:23 Pulse Ox 97 08/05/22 15:23 O2 Del Method 08/05/22 15:23 O2 Flow Rate 2 08/05/22 15:23 BMI result Body Mass Index 27.7 Const: General: cooperative HEENT: Head: Yes normal to inspection Face and sinus: Yes normal facial exam Mouth: Normal oral and palatal mucosa present Teeth and gingiva: dentition normal Eyes: General: appearance normal, both eyes and all related structures Pupils: Equal, round and reactive pupils present Resp: Effort & Inspection: normal respiratory effort Cardio: Rate: regular rate Rhythm: regular rhythm GI: Palpation (GI): Soft to palpation and nontender : General: Yes no CVA tenderness Back/Spine/Pelvis: Back: no CVA tenderness Skin: General skin exam: no rashes or lesions noted Neuro: General: moves all extremities Cranial nerves: Yes Equal, round and reactive pupils present Extrem: Other: feet bloody with large wounds especially left no significant cellulitis or purulence Psych: Appearance: grossly normal Results Labs 08/05/22 06:50 08/05/22 06:50 Labs: Short CBC 08/05/22 08/05/22 Range/Units 03:21 06:50 WBC 7.3 7.4 (4.8-10.8) X10*3/uL Hgb 10.5 L 10.2 L (14.0-18.0) g/dl Hct 32.0 L 31.3 L (42.0-52.0) % Plt Count 136 L D 135 L (160-400) X10*3/uL BMP 08/05/22 08/05/22 03:21 06:50 Sodium 136 137 Potassium 4.5 4.4 Chloride 101 102 Carbon Dioxide 27 28 BUN 19 H 17 H Creatinine 0.77 0.83 Calcium 8.1 L 8.1 L Assessment and Plan (1) Diabetic foot ulcer: Status: Acute He has chronic wounds feet. They are generally bleeding since walks on areas,not always wrapped. Plan Continue broad spectrum IV antibiotics for now. Wound Clinic clean area,continue Check imaging,CT or MRI left foot. If no acute osteomyelitis po on discharge,linezolid and levaquin possible. Time Spent With Patient Time: Total time managing care of this patient today ____ minutes.
[2022-08-05 16:23] LABS: Glucose, Whole Blood 184 mg/dL (60-115)
--- NOTE | 2022-08-05 16:55 | PC.NURSE ---
Patient brought down to nuclear medicine.
[2022-08-05] MEDS: vancomycin HCL 1,250 MG in 0.9 % Sodium Chloride 250 ML 166.67 MG IV (19:28)
[2022-08-05] MEDS: Insulin Lispro 100 UNIT/ML 3 ML VIAL 10 UNIT SUBCUT (19:40)
[2022-08-05 20:25] LABS: Glucose, Whole Blood 160 mg/dL (60-115)
[2022-08-05] MEDS: Atorvastatin Calcium 40 MG TABLET PO (20:53)
[2022-08-06 02:22] VITALS: BMI 31.7
[2022-08-06 04:00] VITALS: BP 116/60; PULSE 66; RESP 18; TEMP 36.6; O2SAT 96
[2022-08-06] MEDS: cefEPime HCl 2 GM in 0.9 % Sodium Chloride 50 ML IV ×3 (04:21→20:10)
[2022-08-06] MEDS: Clindamycin Phosphate/D5W 900 MG/50 ML PIGGYBACK 50 MG IV ×3 (05:22→21:30)
[2022-08-06 06:16] LABS: Creatinine Clr Calc Pharmacy 143.7; Estimated Glomerular Filt Rate > 60
[2022-08-06] MEDS: vancomycin HCL 1,250 MG in 0.9 % Sodium Chloride 250 ML 166.67 MG IV ×2 (06:29→18:38)
[2022-08-06 07:27] VITALS: BP 118/65; PULSE 66; RESP 18; TEMP 36.6; O2SAT 92
[2022-08-06 07:49] LABS: Glucose, Whole Blood 170 mg/dL (60-115)
[2022-08-06] MEDS: clonazePAM 1 MG TABLET 2 MG PO ×2 (08:13→21:30)
[2022-08-06] MEDS: QUEtiapine Fumarate 100 MG TABLET PO ×2 (08:13→21:30)
[2022-08-06] MEDS: cloNIDine HCL 0.2 MG TABLET PO ×3 (08:13→21:30)
[2022-08-06] MEDS: lisinopriL 20 MG TABLET PO (08:13)
[2022-08-06] MEDS: amLODIPine Besylate 5 MG TABLET PO (08:13)
[2022-08-06] MEDS: Insulin Lispro 100 UNIT/ML 3 ML VIAL SUBCUT ×3 (08:14→17:02)
[2022-08-06] MEDS: methADONE HCl 20 MG/2 ML ORAL.CONC 120 MG PO (08:14)
[2022-08-06] MEDS: Insulin Lispro 100 UNIT/ML 3 ML VIAL 10 UNIT SUBCUT ×3 (08:14→21:32)
[2022-08-06] MEDS: Gabapentin 600 MG TABLET PO ×3 (08:14→21:30)
[2022-08-06] MEDS: Thiamine HCL 100 MG TABLET PO (08:14)
--- NOTE | 2022-08-06 10:19 | MHC.RECOVRN ---
Attempted to meet with pt after consult placed to CARE Team. Chart reviewed. Pt laying in bed, asleep, does not wake to voice. Will return at a later time.
[2022-08-06 11:30] LABS: Glucose, Whole Blood 209 mg/dL (60-115)
[2022-08-06 15:32] VITALS: BP 91/53; PULSE 66; RESP 16; TEMP 36.9; O2SAT 92
[2022-08-06 16:40] LABS: Glucose, Whole Blood 256 mg/dL (60-115)
[2022-08-06 17:59] LABS: Vancomycin Random 14.5 mcg/mL (15-20)
--- NOTE | 2022-08-06 18:10 | HE.PHANOTE ---
vancomycin addendum Level after loading dose and 2 additional doses was 14.5, predicted AUC is 480, will keep this dose the same and recheck a level sima
[2022-08-06 19:32] VITALS: BP 99/50; PULSE 63; RESP 16; TEMP 36.9; O2SAT 95
[2022-08-06 20:45] LABS: Glucose, Whole Blood 124 mg/dL (60-115)
[2022-08-06 21:26] VITALS: BP 130/68; O2SAT 96
[2022-08-06] MEDS: Atorvastatin Calcium 40 MG TABLET PO (21:30)
[2022-08-06] MEDS: Insulin Glargine,Hum.rec.anlog 100 UNIT/ML 10 ML VIAL 50 UNIT SUBCUT (21:32)
[2022-08-06] MEDS: Heparin Sodium,Porcine Flush 50 UNITS, 0.9 % Sodium Chloride Flush 5 ML IVFLUSH (22:59)
[2022-08-06] MEDS: Heparin Sodium,Porcine Flush 50 UNITS/5 ML SYRINGE IVFLUSH (23:00)
[2022-08-06] MEDS: 0.9 % Sodium Chloride Flush 3 ML SYRINGE IVFLUSH (23:01)
[2022-08-07 03:27] VITALS: BP 122/60; PULSE 74; RESP 18; TEMP 36.6; O2SAT 95
[2022-08-07] MEDS: cefEPime HCl 2 GM in 0.9 % Sodium Chloride 50 ML IV ×3 (04:13→21:03)
[2022-08-07] MEDS: Clindamycin Phosphate/D5W 900 MG/50 ML PIGGYBACK 50 MG IV ×3 (05:06→21:35)
[2022-08-07] MEDS: vancomycin HCL 1,250 MG in 0.9 % Sodium Chloride 250 ML 166.67 MG IV ×2 (06:06→19:18)
[2022-08-07 06:07] LABS: Creatinine Clr Calc Pharmacy 121.6; Estimated Glomerular Filt Rate > 60
[2022-08-07 07:54] VITALS: BP 125/65; PULSE 67; RESP 18; TEMP 37.2; O2SAT 97
[2022-08-07 08:01] LABS: Glucose, Whole Blood 291 mg/dL (60-115)
[2022-08-07] MEDS: clonazePAM 1 MG TABLET 2 MG PO ×2 (08:32→21:03)
[2022-08-07] MEDS: Thiamine HCL 100 MG TABLET PO (08:32)
[2022-08-07] MEDS: cloNIDine HCL 0.2 MG TABLET PO ×3 (08:32→21:04)
[2022-08-07] MEDS: QUEtiapine Fumarate 100 MG TABLET PO ×2 (08:32→21:04)
[2022-08-07] MEDS: Heparin Sodium,Porcine Flush 50 UNITS, 0.9 % Sodium Chloride Flush 5 ML IVFLUSH (08:32)
[2022-08-07] MEDS: lisinopriL 20 MG TABLET PO (08:32)
[2022-08-07] MEDS: Gabapentin 600 MG TABLET PO ×3 (08:33→21:03)
[2022-08-07] MEDS: methADONE HCl 20 MG/2 ML ORAL.CONC 120 MG PO (08:33)
[2022-08-07] MEDS: Insulin Lispro 100 UNIT/ML 3 ML VIAL 10 UNIT SUBCUT ×3 (08:33→21:34)
[2022-08-07] MEDS: Insulin Lispro 100 UNIT/ML 3 ML VIAL SUBCUT ×4 (08:33→21:04)
[2022-08-07] MEDS: amLODIPine Besylate 5 MG TABLET PO (08:33)
--- NOTE | 2022-08-07 09:19 | HO.PM.IMPN ---
Subjective Subjective Date of Service: 08/07/22 Interval History: f/u on diabetic foot ulcer pain in the foot is better Review of Systems Positive wound to bilateral foot Positive redness to the ankle Physical Exam Vital Signs: Vital Signs: Last Vital Signs Temp 99.0 F 08/07/22 07:54 Pulse 67 08/07/22 07:54 Resp 18 08/07/22 07:54 BP 125/65 08/07/22 07:54 Pulse Ox 97 08/07/22 07:54 O2 Del Method 08/07/22 07:54 O2 Flow Rate 2 08/07/22 07:54 BMI result Body Mass Index 31.7 Const: Other: ? Middle-aged male lying in bed in no distress Neck supple, no JVD Regular rate and rhythm, S1-S2 heard Regular breath sounds bilaterally, no wheezing or crackles appreciated Abdomen soft nontender, no guarding, no rigidity Patient is awake, alert and oriented to self, place, time and person ; no focal motor deficit Musculoskeletal:? Bilateral lower extremity with ulcers with serosanguineous drainag Objective Data Active Medications Acetaminophen (Acetaminophen 325 Mg Tablet) 650 mg PO Q6H PRN PRN Reason: Pain, Mild (Pain Scale 1-3) Amlodipine Besylate (Amlodipine Besylate 5 Mg Tablet) 5 mg PO DAILY [facility]; Protocol Last Admin: 08/07/22 08:33 Dose: 5 mg Documented By: KERVIN Atorvastatin Calcium (Atorvastatin Calcium 40 Mg Tablet) 40 mg PO BEDTIME [facility] Last Admin: 08/06/22 21:30 Dose: 40 mg Documented By: WENDI Clonazepam (Clonazepam 1 Mg Tablet) 2 mg PO BID [facility] Last Admin: 08/07/22 08:32 Dose: 2 mg Documented By: KERVIN Clonidine HCl (Clonidine Hcl 0.2 Mg Tablet) 0.2 mg PO TID [facility]; Protocol Last Admin: 08/07/22 08:32 Dose: 0.2 mg Documented By: KERVIN Heparin Sodium (Porcine) 50 (units/ Sodium Chloride 5 ml) 0 units IVFLUSH QSHIFT [facility] Last Admin: 08/07/22 08:32 Dose: 50 unit Documented By: KERVIN Dextrose (Dextrose 50 % 25 Gm/50 Ml Syringe) 25 gm IVPUSH Q15M PRN; Protocol PRN Reason: per Hypoglycemia Standing Ord. Gabapentin (Gabapentin 600 Mg Tablet) 600 mg PO TID [facility] Last Admin: 08/07/22 08:33 Dose: 600 mg Documented By: KERVIN Glucose (Glucose Gel 15 Gm Gel..Gram.) 15 gm PO Q15M PRN; Protocol PRN Reason: per Hypoglycemia Standing Ord. Heparin Sodium (Porcine) (Heparin Sodium,Porcine Flush 50 Units/5 Ml Syringe) 50 units IVFLUSH QSHIFT [facility] Last Admin: 08/07/22 07:08 Dose: Not Given Documented By: KERVIN Non-Admin Reason: Duplicate Order Cefepime HCl 2 gm/ Sodium (Chloride) 50 mls @ 100 mls/hr IV Q8H [facility] Last Infusion: 08/07/22 04:48 Dose: 0 mls/hr Documented By: WENDI Clindamycin Phosphate (Cleocin) 900 mg in 50 mls @ 50 mls/hr IV Q8H [facility] Last Infusion: 08/07/22 06:06 Dose: 0 mls/hr Documented By: WENDI Vancomycin HCl 1,250 mg/ (Sodium Chloride) 250 mls @ 166.667 mls/hr IV Q12H [facility] Last Infusion: 08/07/22 07:35 Dose: 0 mls/hr Documented By: KERVIN Insulin Glargine (Insulin Glargine,Hum.Rec.Anlog 100 Unit/Ml 10 Ml Vial) 50 unit SUBCUT BEDTIME [facility] Last Admin: 08/06/22 21:32 Dose: 50 unit Documented By: WENDI Insulin Human Lispro (Insulin Lispro 100 Unit/Ml 3 Ml Vial) 0 unit SUBCUT QIDACHS [facility]; Protocol Last Admin: 08/07/22 08:33 Dose: 6 unit Documented By: KERVIN Comments: breakfast delivered late Insulin Human Lispro (Insulin Lispro 100 Unit/Ml 3 Ml Vial) 10 unit SUBCUT TID [facility] Last Admin: 08/07/22 08:33 Dose: 10 unit Documented By: KERVIN Lisinopril (Lisinopril 20 Mg Tablet) 20 mg PO DAILY [facility]; Protocol Last Admin: 08/07/22 08:32 Dose: 20 mg Documented By: KERVIN Melatonin (Melatonin 3 Mg Tablet) 6 mg PO BEDTIME PRN PRN Reason: Insomnia Methadone HCl (Methadone Hcl 20 Mg/2 Ml Oral.Conc) 120 mg PO DAILY [facility] Last Admin: 08/07/22 08:33 Dose: 120 mg Documented By: KERVIN Ondansetron HCl (Ondansetron Hcl 4 Mg/2 Ml Vial) 4 mg IVPUSH Q8H PRN PRN Reason: Nausea and Vomiting Last Admin: 08/05/22 06:07 Dose: 4 mg Documented By: RUDY Pharmacy Consult (Consult Rx Vancomycin Dosing) 1 each MISCELLANE DAILY PRN PRN Reason: Consult order Pharmacy Consult (Consult Rx Perform Med Rec) 1 each MISCELLANE ONCE PRN PRN Reason: Consult order Quetiapine Fumarate (Quetiapine Fumarate 100 Mg Tablet) 100 mg PO BID [facility] Last Admin: 08/07/22 08:32 Dose: 100 mg Documented By: KERVIN Sodium Chloride (0.9 % Sodium Chloride Flush 3 Ml Syringe) 3 ml IVFLUSH QSHIFT [facility] Last Admin: 08/07/22 07:08 Dose: Not Given Documented By: KERVIN Non-Admin Reason: IV Running Thiamine HCl (Thiamine Hcl 100 Mg Tablet) 100 mg PO DAILY [facility] Last Admin: 08/07/22 08:32 Dose: 100 mg Documented By: KERVIN Labs 08/05/22 06:50 08/07/22 05:20 Labs: Laboratory Results - last 24 hr 08/06/22 08/06/22 08/06/22 11:26 16:36 17:21 Estim Creat Clear Calc Estimated GFR POC Glucose 209 H 256 H Random Vancomycin 14.5 L 08/06/22 08/07/22 08/07/22 20:29 05:20 07:56 Estim Creat Clear Calc 121.6 Estimated GFR > 60 POC Glucose 124 H 291 H Random Vancomycin Microbiology Microbiology Results: Microbiology 08/05/22 03:21 Blood Culture - Preliminary Blood - Venous No growth after 48 hours. 08/05/22 03:21 Blood Culture - Preliminary Blood - Venous No growth after 48 hours. Assessment and Plan (1) Diabetic foot ulcer: Status: Acute (2) Diabetes: Status: Acute (3) Cellulitis: Status: Acute Plan 52-year-old male with pertinent history of insulin-dependent diabetes mellitus, peripheral vascular disease, opiate use disorder on methadone, chronic hypoxemic respiratory failure on 2 L baseline oxygen due to COVID, essential hypertension, mood disorder, mixed hyperlipidemia who presents to the emergency department for concerns of foot infection. #.?Bilateral lower extremity diabetic foot infection with cellulitis and nonhealing ulcers. He was treated for 6 weeks of Abx in [place] White cell scan suggest soft tissue infection and acute osteomylitis Presently on Cefepime, Clinda and Vanco will likely need long term Abx, Picc line tomorrow #.? insulin-dependent diabetes mellitus with hyperglycemia:better. continue present regimen #.? Alcohol use disorder:?CIWA.? Initiating thiamine. CARE team consulted #.? Essential hypertension: Continue home antihypertensives #.? Mood disorder:? Continue home mood stabilizers #.? Chronic hypoxemic respiratory failure secondary to COVID-19:? Patient states he uses 2 L baseline during ambulation #.? Mixed hyperlipidemia: On statin #.? Chronic normocytic anemia.? Hemoglobin above transfusion threshold DVT prophylaxis:? Lovenox 40 mg daily Diabetic diet Full code need for inpatient:IV Abx for acute osteomylitis Time Spent With Patient Time: Total time managing care of this patient today ____ minutes. Quality Stroke Does the patient have a stroke diagnosis?: No VTE Prior VTE?: No VTE Risk Level:: Medical - moderate - high VTE Device Contraindication: Treatment Not Indicated VTE Drug Contraindication: N/A - Med Ordered
[2022-08-07 11:21] LABS: Glucose, Whole Blood 158 mg/dL (60-115)
--- NOTE | 2022-08-07 13:35 | MHC.RECOVRN ---
Attempted to meet with pt to discuss substance use and support options. Familiar with t/w from past consultations. Pt sitting on bed, awake, alert, does not engage in conversation. Pt states I'm fine without making eye contact. Unwilling to discuss substance use, methadone, resources. Pt provided with written information regarding resources and supports as well as t/w contact information. Pt encouraged to reach out with questions or concerns.
[2022-08-07 15:24] VITALS: BP 112/53; PULSE 67; RESP 20; TEMP 36.8; O2SAT 92
[2022-08-07] MEDS: 0.9 % Sodium Chloride Flush 3 ML SYRINGE IVFLUSH ×2 (15:35→19:21)
[2022-08-07] MEDS: Heparin Sodium,Porcine Flush 50 UNITS/5 ML SYRINGE IVFLUSH (15:35)
[2022-08-07 16:27] LABS: Glucose, Whole Blood 304 mg/dL (60-115)
[2022-08-07 18:08] LABS: Vancomycin Trough 13.1 mcg/mL (10.0-20.0)
--- NOTE | 2022-08-07 18:15 | HE.PHANOTE ---
vancomycin addendum level came back at 13.1, continue same regimen and will check another level after 3 more doses
[2022-08-07 19:29] VITALS: BP 106/64; PULSE 59; RESP 20; TEMP 36.4; O2SAT 95
[2022-08-07 21:02] LABS: Glucose, Whole Blood 230 mg/dL (60-115)
[2022-08-07] MEDS: Insulin Glargine,Hum.rec.anlog 100 UNIT/ML 10 ML VIAL 50 UNIT SUBCUT (21:04)
[2022-08-07] MEDS: Atorvastatin Calcium 40 MG TABLET PO (21:04)
[2022-08-08] MEDS: Heparin Sodium,Porcine Flush 50 UNITS, 0.9 % Sodium Chloride Flush 5 ML IVFLUSH ×2 (00:19→08:18)
[2022-08-08 03:38] VITALS: BP 114/57; PULSE 60; RESP 18; TEMP 36.6; O2SAT 98
[2022-08-08] MEDS: cefEPime HCl 2 GM in 0.9 % Sodium Chloride 50 ML IV ×3 (04:18→22:21)
[2022-08-08] MEDS: Clindamycin Phosphate/D5W 900 MG/50 ML PIGGYBACK 50 MG IV ×3 (05:09→23:10)
[2022-08-08] MEDS: vancomycin HCL 1,250 MG in 0.9 % Sodium Chloride 250 ML 166.67 MG IV ×2 (06:11→19:17)
[2022-08-08 06:27] LABS: Creatinine Clr Calc Pharmacy 149.6; Estimated Glomerular Filt Rate > 60
[2022-08-08 07:43] VITALS: BP 116/68; PULSE 57; RESP 18; TEMP 36.4; O2SAT 96
[2022-08-08 07:47] LABS: Glucose, Whole Blood 191 mg/dL (60-115)
--- NOTE | 2022-08-08 08:02 | HE.PHANOTE ---
Vancomycin Dosing Addendum Patients scr is stable this morning with a scr of 0.74. Continue current dose of 1250 mg Q12H. Level due on 08/09 @0500
[2022-08-08] MEDS: Heparin Sodium,Porcine Flush 50 UNITS/5 ML SYRINGE IVFLUSH (08:19)
[2022-08-08] MEDS: methADONE HCl 20 MG/2 ML ORAL.CONC 120 MG PO (08:19)
[2022-08-08] MEDS: Insulin Lispro 100 UNIT/ML 3 ML VIAL 10 UNIT SUBCUT ×2 (08:20→17:25)
[2022-08-08] MEDS: lisinopriL 20 MG TABLET PO (08:21)
[2022-08-08] MEDS: Thiamine HCL 100 MG TABLET PO (08:21)
[2022-08-08] MEDS: Gabapentin 600 MG TABLET PO ×3 (08:21→22:35)
[2022-08-08] MEDS: amLODIPine Besylate 5 MG TABLET PO (08:21)
[2022-08-08] MEDS: QUEtiapine Fumarate 100 MG TABLET PO ×2 (08:21→22:34)
[2022-08-08] MEDS: clonazePAM 1 MG TABLET 2 MG PO ×2 (08:21→22:35)
[2022-08-08] MEDS: cloNIDine HCL 0.2 MG TABLET PO ×3 (08:21→22:34)
[2022-08-08] MEDS: Insulin Lispro 100 UNIT/ML 3 ML VIAL SUBCUT ×4 (08:22→22:36)
--- NOTE | 2022-08-08 08:55 | P.PNIM_ITS ---
Subjective Subjective Date of Service: 08/08/22 Interval History: f/u on diabetic foot ulcer pain is controlled, no new issues Physical Exam Vital Signs: Vital Signs: Last Vital Signs Temp 97.5 F 08/08/22 07:43 Pulse 57 08/08/22 07:43 Resp 18 08/08/22 07:43 BP 116/68 08/08/22 07:43 Pulse Ox 96 08/08/22 07:43 O2 Del Method 08/08/22 07:43 O2 Flow Rate 2 08/08/22 03:38 BMI result Body Mass Index 31.7 Const: Other: ? Middle-aged male lying in bed in no distress Neck supple, no JVD Regular rate and rhythm, S1-S2 heard Regular breath sounds bilaterally, no wheezing or crackles appreciated Abdomen soft nontender, no guarding, no rigidity Patient is awake, alert and oriented to self, place, time and person ; no focal motor deficit Musculoskeletal:? Bilateral lower extremity with ulcers with serosanguineous drainag Objective Data Active Medications Acetaminophen (Acetaminophen 325 Mg Tablet) 650 mg PO Q6H PRN PRN Reason: Pain, Mild (Pain Scale 1-3) Amlodipine Besylate (Amlodipine Besylate 5 Mg Tablet) 5 mg PO DAILY [facility]; Protocol Last Admin: 08/08/22 08:21 Dose: 5 mg Documented By: AURELIO Atorvastatin Calcium (Atorvastatin Calcium 40 Mg Tablet) 40 mg PO BEDTIME [facility] Last Admin: 08/07/22 21:04 Dose: 40 mg Documented By: WENDI Clonazepam (Clonazepam 1 Mg Tablet) 2 mg PO BID [facility] Last Admin: 08/08/22 08:21 Dose: 2 mg Documented By: AURELIO Clonidine HCl (Clonidine Hcl 0.2 Mg Tablet) 0.2 mg PO TID [facility]; Protocol Last Admin: 08/08/22 08:21 Dose: 0.2 mg Documented By: AURELIO Heparin Sodium (Porcine) 50 (units/ Sodium Chloride 5 ml) 0 units IVFLUSH QSHI Last Admin: 08/08/22 08:18 Dose: 50 unit Documented By: AURELIO Dextrose (Dextrose 50 % 25 Gm/50 Ml Syringe) 25 gm IVPUSH Q15M PRN; Protocol PRN Reason: per Hypoglycemia Standing Ord. Gabapentin (Gabapentin 600 Mg Tablet) 600 mg PO TID [facility] Last Admin: 08/08/22 08:21 Dose: 600 mg Documented By: AURELIO Glucose (Glucose Gel 15 Gm Gel..Gram.) 15 gm PO Q15M PRN; Protocol PRN Reason: per Hypoglycemia Standing Ord. Heparin Sodium (Porcine) (Heparin Sodium,Porcine Flush 50 Units/5 Ml Syringe) 50 units IVFLUSH QSHIFT [facility] Last Admin: 08/08/22 08:19 Dose: 50 units Documented By: AURELIO Cefepime HCl 2 gm/ Sodium (Chloride) 50 mls @ 100 mls/hr IV Q8H [facility] Last Infusion: 08/08/22 04:50 Dose: 0 mls/hr Documented By: WENDI Clindamycin Phosphate (Cleocin) 900 mg in 50 mls @ 50 mls/hr IV Q8H [facility] Last Infusion: 08/08/22 06:10 Dose: 0 mls/hr Documented By: WENDI Vancomycin HCl 1,250 mg/ (Sodium Chloride) 250 mls @ 166.667 mls/hr IV Q12H [facility] Last Infusion: 08/08/22 07:42 Dose: 0 mls/hr Documented By: AURELIO Insulin Glargine (Insulin Glargine,Hum.Rec.Anlog 100 Unit/Ml 10 Ml Vial) 50 unit SUBCUT BEDTIME [facility] Last Admin: 08/07/22 21:04 Dose: 50 unit Documented By: WENDI Insulin Human Lispro (Insulin Lispro 100 Unit/Ml 3 Ml Vial) 0 unit SUBCUT QIDACHS [facility]; Protocol Last Admin: 08/08/22 08:22 Dose: 2 unit Documented By: AURELIO Insulin Human Lispro (Insulin Lispro 100 Unit/Ml 3 Ml Vial) 10 unit SUBCUT TID [facility] Last Admin: 08/08/22 08:20 Dose: 10 unit Documented By: AURELIO Lisinopril (Lisinopril 20 Mg Tablet) 20 mg PO DAILY [facility]; Protocol Last Admin: 08/08/22 08:21 Dose: 20 mg Documented By: AURELIO Melatonin (Melatonin 3 Mg Tablet) 6 mg PO BEDTIME PRN PRN Reason: Insomnia Methadone HCl (Methadone Hcl 20 Mg/2 Ml Oral.Conc) 120 mg PO DAILY [facility] Last Admin: 08/08/22 08:19 Dose: 120 mg Documented By: AURELIO Ondansetron HCl (Ondansetron Hcl 4 Mg/2 Ml Vial) 4 mg IVPUSH Q8H PRN PRN Reason: Nausea and Vomiting Last Admin: 08/05/22 06:07 Dose: 4 mg Documented By: RUDY Pharmacy Consult (Consult Rx Vancomycin Dosing) 1 each MISCELLANE DAILY PRN PRN Reason: Consult order Pharmacy Consult (Consult Rx Perform Med Rec) 1 each MISCELLANE ONCE PRN PRN Reason: Consult order Quetiapine Fumarate (Quetiapine Fumarate 100 Mg Tablet) 100 mg PO BID [facility] Last Admin: 08/08/22 08:21 Dose: 100 mg Documented By: AURELIO Sodium Chloride (0.9 % Sodium Chloride Flush 3 Ml Syringe) 3 ml IVFLUSH QSHIFT [facility] Last Admin: 08/08/22 07:42 Dose: Not Given Documented By: AURELIO Non-Admin Reason: See Note Thiamine HCl (Thiamine Hcl 100 Mg Tablet) 100 mg PO DAILY [facility] Last Admin: 08/08/22 08:21 Dose: 100 mg Documented By: AURELIO Labs 08/05/22 06:50 08/08/22 05:02 Labs: Laboratory Results - last 24 hr 08/07/22 08/07/22 08/07/22 11:16 16:23 17:21 Estim Creat Clear Calc Estimated GFR POC Glucose 158 H 304 H Vancomycin Trough 13.1 08/07/22 08/08/22 08/08/22 20:59 05:02 07:40 Estim Creat Clear Calc 149.6 Estimated GFR > 60 POC Glucose 230 H 191 H Vancomycin Trough Microbiology Microbiology Results: Microbiology 08/05/22 03:21 Blood Culture - Preliminary Blood - Venous No growth after 48 hours. 08/05/22 03:21 Blood Culture - Preliminary Blood - Venous No growth after 48 hours. Assessment and Plan (1) Diabetic foot ulcer: Status: Acute (2) Acute osteomyelitis of foot: Status: Acute Plan 52-year-old male with pertinent history of insulin-dependent diabetes mellitus, peripheral vascular disease, opiate use disorder on methadone, chronic hypoxemic respiratory failure on 2 L baseline oxygen due to COVID, essential hypertension, mood disorder, mixed hyperlipidemia who presents to the emergency department for concerns of foot infection. #.?Bilateral lower extremity diabetic foot infection with cellulitis and nonhealing ulcers. He was treated for 6 weeks of Abx in [place] White cell scan suggest soft tissue infection and acute osteomylitis Presently on Cefepime, Clinda and Vanco will likely need [facility] Abx, Picc line today #.? insulin-dependent diabetes mellitus with hyperglycemia:better. continue present regimen #.? Alcohol use disorder:?CIWA.? Initiating thiamine. CARE team consulted #.? Essential hypertension: Continue home antihypertensives #.? Mood disorder:? Continue home mood stabilizers #.? Chronic hypoxemic respiratory failure secondary to COVID-19:? Patient states he uses 2 L baseline during ambulation #.? Mixed hyperlipidemia: On statin #.? Chronic normocytic anemia.? Hemoglobin above transfusion threshold DVT prophylaxis:? Lovenox 40 mg daily Diabetic diet Full code need for inpatient:IV Abx for acute osteomylitis Time Spent With Patient Time: Total time managing care of this patient today ____ minutes. Quality Stroke Does the patient have a stroke diagnosis?: No VTE Prior VTE?: No VTE Risk Level:: Medical - moderate - high VTE Device Contraindication: Treatment Not Indicated VTE Drug Contraindication: N/A - Med Ordered
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
--- NOTE | 2022-08-08 11:01 | P.CDIM_ITS ---
PROVIDER RESPONSE TEXT: To clarify, the appropriate diagnosis supported by the clinical indicators: Diabetic ulcer: Not able to assess deptyhy QUERY TEXT: PHYSICIAN'S DOCUMENTATION REQUEST Date of Query: 08/08/2022 10:51 AM EST Patient Name: TRINA CARDENAS Admit Date: 08/05/2022 Dear Luis Alberto, A review of the medical record indicates additional documentation may be needed. Please review below and update the documentation accordingly. Clinical Indicators: Per MD progress note 08/08/22: Bilateral lower extremity diabetic foot infection with cellulitis and nonhealing ulcers. White cell scan suggest soft tissue infection and acute osteomylitis Presently on Cefepime, Clinda and Vanco will likely need fci Abx, Picc line today Based on the above, could you please provide further information regarding the ulcer/wound: Diabetic ulcer Please specify the depth and severity of the ulcer/wound on the right foot and on the left foot Other (explain) Clinically unable to determine (explain) Thank you, Maeve Mcdaniel RN Use of terms such as suspected, likely, concern for, or probable (associated with a specific diagnosi s that is being evaluated, monitored, or treated as if it exists) are acceptable and can be coded in the inpatient se tting, when documented at the time of discharge. Please use your independent medical judgment in providing your response. THIS QUERY IS PART OF THE PERMANENT MEDICAL RECORD
[2022-08-08 11:27] LABS: Glucose, Whole Blood 223 mg/dL (60-115)
--- NOTE | 2022-08-08 12:24 | P.EN_ITS ---
Event Note Date of Service: 08/08/22 Event Note: Addiction consult Please see note from table machine operator dated 08/07/2022 Time Spent With Patient Time: Total time managing care of this patient today ____ minutes.
--- NOTE | 2022-08-08 12:24 | PM.EVENT ---
Event Note Date of Service: 08/08/22 Event Note: Addiction consult Please see note from alarm mechanism adjuster dated 08/07/2022 Time Spent With Patient Time: Total time managing care of this patient today ____ minutes.
--- NOTE | 2022-08-08 14:05 | HO.PM.IMPN ---
Subjective Subjective Date of Service: 08/16/22 Interval History: f/u on osteo Physical Exam Vital Signs: Vital Signs: Last Vital Signs Temp 97.5 F 08/08/22 07:43 Pulse 57 08/08/22 07:43 Resp 18 08/08/22 07:43 BP 116/68 08/08/22 07:43 Pulse Ox 96 08/08/22 07:43 O2 Del Method 08/08/22 07:43 O2 Flow Rate 2 08/08/22 03:38 BMI result Body Mass Index 31.7 Const: Other: ? Middle-aged male lying in bed in no distress Neck supple, no JVD Regular rate and rhythm, S1-S2 heard Regular breath sounds bilaterally, no wheezing or crackles appreciated Abdomen soft nontender, no guarding, no rigidity Patient is awake, alert and oriented to self, place, time and person ; no focal motor deficit Musculoskeletal:? Bilateral lower extremity with ulcers with serosanguineous drainag Objective Data Active Medications Acetaminophen (Acetaminophen 325 Mg Tablet) 650 mg PO Q6H PRN PRN Reason: Pain, Mild (Pain Scale 1-3) Amlodipine Besylate (Amlodipine Besylate 5 Mg Tablet) 5 mg PO DAILY [facility]; Protocol Last Admin: 08/08/22 08:21 Dose: 5 mg Documented By: AURELIO Atorvastatin Calcium (Atorvastatin Calcium 40 Mg Tablet) 40 mg PO BEDTIME [facility] Last Admin: 08/07/22 21:04 Dose: 40 mg Documented By: WENDI Clonazepam (Clonazepam 1 Mg Tablet) 2 mg PO BID [facility] Last Admin: 08/08/22 08:21 Dose: 2 mg Documented By: AURELIO Clonidine HCl (Clonidine Hcl 0.2 Mg Tablet) 0.2 mg PO TID [facility]; Protocol Last Admin: 08/08/22 08:21 Dose: 0.2 mg Documented By: AURELIO Heparin Sodium (Porcine) 50 (units/ Sodium Chloride 5 ml) 0 units IVFLUSH [facility] Last Admin: 08/08/22 08:18 Dose: 50 unit Documented By: AURELIO Dextrose (Dextrose 50 % 25 Gm/50 Ml Syringe) 25 gm IVPUSH Q15M PRN; Protocol PRN Reason: per Hypoglycemia Standing Ord. Gabapentin (Gabapentin 600 Mg Tablet) 600 mg PO TID [facility] Last Admin: 08/08/22 08:21 Dose: 600 mg Documented By: AURELIO Glucose (Glucose Gel 15 Gm Gel..Gram.) 15 gm PO Q15M PRN; Protocol PRN Reason: per Hypoglycemia Standing Ord. Heparin Sodium (Porcine) (Heparin Sodium,Porcine Flush 50 Units/5 Ml Syringe) 50 units IVFLUSH QSHIFT [facility] Last Admin: 08/08/22 08:19 Dose: 50 units Documented By: AURELIO Dextrose (D10) 250 mls @ 750 mls/hr IV Q15M PRN; Protocol PRN Reason: per Hypoglycemia Standing Ord. Cefepime HCl 2 gm/ Sodium (Chloride) 50 mls @ 100 mls/hr IV Q8H [facility] Last Infusion: 08/08/22 12:30 Dose: 0 mls/hr Documented By: AURELIO Clindamycin Phosphate (Cleocin) 900 mg in 50 mls @ 50 mls/hr IV Q8H [facility] Last Infusion: 08/08/22 06:10 Dose: 0 mls/hr Documented By: WENDI Vancomycin HCl 1,250 mg/ (Sodium Chloride) 250 mls @ 166.667 mls/hr IV Q12H [facility] Last Infusion: 08/08/22 07:42 Dose: 0 mls/hr Documented By: AURELIO Insulin Glargine (Insulin Glargine,Hum.Rec.Anlog 100 Unit/Ml 10 Ml Vial) 50 unit SUBCUT BEDTIME [facility] Last Admin: 08/07/22 21:04 Dose: 50 unit Documented By: WENDI Insulin Human Lispro (Insulin Lispro 100 Unit/Ml 3 Ml Vial) 0 unit SUBCUT QIDACHS [facility]; Protocol Last Admin: 08/08/22 11:56 Dose: 4 unit Documented By: AURELIO Insulin Human Lispro (Insulin Lispro 100 Unit/Ml 3 Ml Vial) 10 unit SUBCUT TID [facility] Last Admin: 08/08/22 08:20 Dose: 10 unit Documented By: AURELIO Lisinopril (Lisinopril 20 Mg Tablet) 20 mg PO DAILY [facility]; Protocol Last Admin: 08/08/22 08:21 Dose: 20 mg Documented By: AURELIO Melatonin (Melatonin 3 Mg Tablet) 6 mg PO BEDTIME PRN PRN Reason: Insomnia Methadone HCl (Methadone Hcl 20 Mg/2 Ml Oral.Conc) 120 mg PO DAILY [facility] Last Admin: 08/08/22 08:19 Dose: 120 mg Documented By: EDI-YAMINI Ondansetron HCl (Ondansetron Hcl 4 Mg/2 Ml Vial) 4 mg IVPUSH Q8H PRN PRN Reason: Nausea and Vomiting Last Admin: 08/05/22 06:07 Dose: 4 mg Documented By: RUDY Pharmacy Consult (Consult Rx Vancomycin Dosing) 1 each MISCELLANE DAILY PRN PRN Reason: Consult order Pharmacy Consult (Consult Rx Perform Med Rec) 1 each MISCELLANE ONCE PRN PRN Reason: Consult order Quetiapine Fumarate (Quetiapine Fumarate 100 Mg Tablet) 100 mg PO BID [facility] Last Admin: 08/08/22 08:21 Dose: 100 mg Documented By: AURELIO Sodium Chloride (0.9 % Sodium Chloride Flush 3 Ml Syringe) 3 ml IVFLUSH QSHIFT [facility] Last Admin: 08/08/22 07:42 Dose: Not Given Documented By: AURELIO Non-Admin Reason: See Note Thiamine HCl (Thiamine Hcl 100 Mg Tablet) 100 mg PO DAILY [facility] Last Admin: 08/08/22 08:21 Dose: 100 mg Documented By: EDI-YAMINI Labs 08/05/22 06:50 08/08/22 05:02 Labs: Laboratory Results - last 24 hr 08/07/22 08/07/22 08/07/22 16:23 17:21 20:59 Estim Creat Clear Calc Estimated GFR POC Glucose 304 H 230 H Vancomycin Trough 13.1 08/08/22 08/08/22 08/08/22 05:02 07:40 11:19 Estim Creat Clear Calc 149.6 Estimated GFR > 60 POC Glucose 191 H 223 H Vancomycin Trough Assessment and Plan (1) Acute osteomyelitis of foot: Status: Acute Plan ? 52-year-old male with pertinent history of insulin-dependent diabetes mellitus, peripheral vascular disease, opiate use disorder on methadone, chronic hypoxemic respiratory failure on 2 L baseline oxygen due to COVID, essential hypertension, mood disorder, mixed hyperlipidemia who presents to the emergency department for concerns of foot infection. #.?Bilateral lower extremity diabetic foot infection with cellulitis and nonhealing ulcers. He was treated for 6 weeks of Abx in [place] White cell scan suggest soft tissue infection and acute osteomylitis Presently on Cefepime, Clinda and Vanco will likely need detention Abx, Picc line #.? insulin-dependent diabetes mellitus with hyperglycemia:better. continue present regimen #.? Alcohol use disorder:?CIWA.? Initiating thiamine. CARE team consulted #.? Essential hypertension: Continue home antihypertensives #.? Mood disorder:? Continue home mood stabilizers #.? Chronic hypoxemic respiratory failure secondary to COVID-19:? Patient states he uses 2 L baseline during ambulation #.? Mixed hyperlipidemia: On statin #.? Chronic normocytic anemia.? Hemoglobin above transfusion threshold DVT prophylaxis:? Lovenox 40 mg daily Diabetic diet Full code . Time Spent With Patient Time: Total time managing care of this patient today ____ minutes. Quality Stroke Does the patient have a stroke diagnosis?: No VTE Prior VTE?: No VTE Risk Level:: Medical - moderate - high VTE Device Contraindication: Treatment Not Indicated VTE Drug Contraindication: N/A - Med Ordered
--- NOTE | 2022-08-08 14:41 | MHC.CM.PN ---
EMR REVIEWED, PT WITH BILAT NONHEALING DIABETIC FOOT ULCERS, PER VASCULAR SURG PT SHOULD FOLLOW UP W/[facility], PER HOSPITALIST PT WILL LIKELY NEED PCC AND 3WKS IV ABX, NO D/C PLANNED AT THIS TIME, CM WILL CONT TO FOLLOW DC NEEDS.
[2022-08-08 14:44] VITALS: BP 111/61; PULSE 59
[2022-08-08 15:18] VITALS: BP 109/56; PULSE 64; RESP 18; TEMP 37.2; O2SAT 99
[2022-08-08 16:58] LABS: Glucose, Whole Blood 222 mg/dL (60-115)
--- NOTE | 2022-08-08 17:52 | PC.NURSE ---
wound care performed. Pt disconnected Iv once this shift. pt was educated and event did not occur again. Plan is to have another line placed and if done successfully, d/c fem line.
[2022-08-08 19:43] VITALS: BP 110/61; PULSE 98; RESP 18; TEMP 36.9; O2SAT 98
[2022-08-08 20:42] LABS: Glucose, Whole Blood 358 mg/dL (60-115)
[2022-08-08] MEDS: Insulin Glargine,Hum.rec.anlog 100 UNIT/ML 10 ML VIAL 50 UNIT SUBCUT (22:23)
[2022-08-08] MEDS: Atorvastatin Calcium 40 MG TABLET PO (22:35)
[2022-08-09] MEDS: Heparin Sodium,Porcine Flush 50 UNITS, 0.9 % Sodium Chloride Flush 5 ML IVFLUSH ×4 (00:48→23:16)
[2022-08-09] MEDS: Heparin Sodium,Porcine Flush 50 UNITS/5 ML SYRINGE IVFLUSH ×4 (00:49→23:16)
[2022-08-09 03:07] VITALS: BP 117/67; PULSE 59; RESP 17; TEMP 36.1; O2SAT 95
[2022-08-09] MEDS: cefEPime HCl 2 GM in 0.9 % Sodium Chloride 50 ML IV ×3 (04:32→19:41)
--- NOTE | 2022-08-09 04:47 | PC.NURSE ---
POC at HS =358, Dr. Worthington was notified, Dr. Worthington ordered to hold scheduled Lispro 10 units and just use sliding scale of 8 units SC Lispro, scheduled Lantus given.
[2022-08-09] MEDS: Clindamycin Phosphate/D5W 900 MG/50 ML PIGGYBACK 50 MG IV ×3 (05:23→21:10)
[2022-08-09] MEDS: vancomycin HCL 1,250 MG in 0.9 % Sodium Chloride 250 ML 166.67 MG IV ×2 (06:35→17:57)
[2022-08-09 06:45] LABS: Creatinine Clr Calc Pharmacy 133.3; Estimated Glomerular Filt Rate > 60
[2022-08-09 07:49] LABS: Glucose, Whole Blood 298 mg/dL (60-115)
[2022-08-09] MEDS: QUEtiapine Fumarate 100 MG TABLET PO ×2 (07:55→19:39)
[2022-08-09] MEDS: amLODIPine Besylate 5 MG TABLET PO (07:55)
[2022-08-09] MEDS: lisinopriL 20 MG TABLET PO (07:55)
[2022-08-09] MEDS: Gabapentin 600 MG TABLET PO ×3 (07:55→19:39)
[2022-08-09] MEDS: cloNIDine HCL 0.2 MG TABLET PO ×3 (07:55→19:39)
[2022-08-09] MEDS: Insulin Lispro 100 UNIT/ML 3 ML VIAL 10 UNIT SUBCUT ×3 (07:56→19:38)
[2022-08-09] MEDS: Insulin Lispro 100 UNIT/ML 3 ML VIAL SUBCUT ×4 (07:56→19:38)
[2022-08-09] MEDS: clonazePAM 1 MG TABLET 2 MG PO ×2 (07:56→19:39)
[2022-08-09] MEDS: Thiamine HCL 100 MG TABLET PO (07:56)
[2022-08-09 08:00] VITALS: BP 127/71; PULSE 66; RESP 18; TEMP 36.5; O2SAT 98
[2022-08-09] MEDS: methADONE HCl 20 MG/2 ML ORAL.CONC 120 MG PO (08:10)
[2022-08-09 11:17] LABS: Glucose, Whole Blood 222 mg/dL (60-115)
--- NOTE | 2022-08-09 13:54 | HO.PM.IMPN ---
Subjective Subjective Date of Service: 08/09/22 Interval History: f/u on diabetic foot ulcer,pain is controlled, no new issues Review of Systems no fevers or nausea or vomitn Physical Exam Vital Signs: Vital Signs: Last Vital Signs Temp 97.7 F 08/09/22 08:00 Pulse 66 08/09/22 08:00 Resp 18 08/09/22 08:00 BP 127/71 08/09/22 08:00 Pulse Ox 98 08/09/22 08:00 O2 Del Method 08/09/22 08:00 O2 Flow Rate 2.0 08/09/22 08:00 BMI result Body Mass Index 31.7 Middle-aged male lying in bed in no distress Neck supple, no JVD Regular rate and rhythm, S1-S2 heard Regular breath sounds bilaterally, no wheezing or crackles appreciated Abdomen soft nontender, no guarding, no rigidity Patient is awake, alert and oriented to self, place, time and person ; no focal motor deficit Musculoskeletal:? Bilateral lower extremity with ulcers with serosanguineous drainage Objective Data Active Medications Acetaminophen (Acetaminophen 325 Mg Tablet) 650 mg PO Q6H PRN PRN Reason: Pain, Mild (Pain Scale 1-3) Amlodipine Besylate (Amlodipine Besylate 5 Mg Tablet) 5 mg PO DAILY [facility]; Protocol Last Admin: 08/09/22 07:55 Dose: 5 mg Documented By: PETRA Atorvastatin Calcium (Atorvastatin Calcium 40 Mg Tablet) 40 mg PO BEDTIME [facility] Last Admin: 08/08/22 22:35 Dose: 40 mg Documented By: CASTILEmanuel Clonazepam (Clonazepam 1 Mg Tablet) 2 mg PO BID [facility] Last Admin: 08/09/22 07:56 Dose: 2 mg Documented By: PETRA Clonidine HCl (Clonidine Hcl 0.2 Mg Tablet) 0.2 mg PO TID [facility]; Protocol Last Admin: 08/09/22 07:55 Dose: 0.2 mg Documented By: PETRA Heparin Sodium (Porcine) 50 (units/ Sodium Chloride 5 ml) 0 units IVFLUSH QSHIFT [facility] Last Admin: 08/09/22 08:23 Dose: 50 unit Documented By: PETRA Dextrose (Dextrose 50 % 25 Gm/50 Ml Syringe) 25 gm IVPUSH Q15M PRN; Protocol PRN Reason: per Hypoglycemia Standing Ord. Gabapentin (Gabapentin 600 Mg Tablet) 600 mg PO TID [facility] Last Admin: 08/09/22 07:55 Dose: 600 mg Documented By: PETRA Glucose (Glucose Gel 15 Gm Gel..Gram.) 15 gm PO Q15M PRN; Protocol PRN Reason: per Hypoglycemia Standing Ord. Heparin Sodium (Porcine) (Heparin Sodium,Porcine Flush 50 Units/5 Ml Syringe) 50 units IVFLUSH QSHIFT [facility] Last Admin: 08/09/22 08:23 Dose: 50 units Documented By: PETRA Dextrose (D10) 250 mls @ 750 mls/hr IV Q15M PRN; Protocol PRN Reason: per Hypoglycemia Standing Ord. Cefepime HCl 2 gm/ Sodium (Chloride) 50 mls @ 100 mls/hr IV Q8H [facility] Last Infusion: 08/09/22 12:38 Dose: 0 mls/hr Documented By: PETRA Clindamycin Phosphate (Cleocin) 900 mg in 50 mls @ 50 mls/hr IV Q8H [facility] Last Infusion: 08/09/22 06:35 Dose: 0 mls/hr Documented By: ANDREW Vancomycin HCl 1,250 mg/ (Sodium Chloride) 250 mls @ 166.667 mls/hr IV Q12H [facility] Last Infusion: 08/09/22 08:46 Dose: 0 mls/hr Documented By: PETRA Insulin Glargine (Insulin Glargine,Hum.Rec.Anlog 100 Unit/Ml 10 Ml Vial) 50 unit SUBCUT BEDTIME [facility] Last Admin: 08/08/22 22:23 Dose: 50 unit Documented By: ANDREW Insulin Human Lispro (Insulin Lispro 100 Unit/Ml 3 Ml Vial) 0 unit SUBCUT QIDACHS [facility]; Protocol Last Admin: 08/09/22 12:00 Dose: 4 unit Documented By: PETRA Insulin Human Lispro (Insulin Lispro 100 Unit/Ml 3 Ml Vial) 10 unit SUBCUT TID [facility] Last Admin: 08/09/22 07:56 Dose: 10 unit Documented By: PETRA Lisinopril (Lisinopril 20 Mg Tablet) 20 mg PO DAILY [facility]; Protocol Last Admin: 08/09/22 07:55 Dose: 20 mg Documented By: PETRA Melatonin (Melatonin 3 Mg Tablet) 6 mg PO BEDTIME PRN PRN Reason: Insomnia Methadone HCl (Methadone Hcl 20 Mg/2 Ml Oral.Conc) 120 mg PO DAILY [facility] Last Admin: 08/09/22 08:10 Dose: 120 mg Documented By: PETRA Ondansetron HCl (Ondansetron Hcl 4 Mg/2 Ml Vial) 4 mg IVPUSH Q8H PRN PRN Reason: Nausea and Vomiting Last Admin: 08/05/22 06:07 Dose: 4 mg Documented By: RUDY Pharmacy Consult (Consult Rx Vancomycin Dosing) 1 each MISCELLANE DAILY PRN PRN Reason: Consult order Pharmacy Consult (Consult Rx Perform Med Rec) 1 each MISCELLANE ONCE PRN PRN Reason: Consult order Quetiapine Fumarate (Quetiapine Fumarate 100 Mg Tablet) 100 mg PO BID [facility] Last Admin: 08/09/22 07:55 Dose: 100 mg Documented By: PETRA Sodium Chloride (0.9 % Sodium Chloride Flush 3 Ml Syringe) 3 ml IVFLUSH QSHIFT [facility] Last Admin: 08/09/22 08:06 Dose: Not Given Documented By: PETRA Non-Admin Reason: pt has tlc Thiamine HCl (Thiamine Hcl 100 Mg Tablet) 100 mg PO DAILY [facility] Last Admin: 08/09/22 07:56 Dose: 100 mg Documented By: PETRA Labs 08/05/22 06:50 08/09/22 05:41 Labs: Laboratory Results - last 24 hr 08/08/22 08/08/22 08/09/22 16:54 19:46 05:41 Estim Creat Clear Calc 133.3 Estimated GFR > 60 POC Glucose 222 H 358 H* Vancomycin Trough 08/09/22 08/09/22 08/09/22 05:41 07:45 11:13 Estim Creat Clear Calc Estimated GFR POC Glucose 298 H 222 H Vancomycin Trough 17.0 Assessment and Plan (1) Acute osteomyelitis of foot: Status: Acute (2) Diabetic foot ulcer: Status: Acute Plan ?52-year-old male with pertinent history of insulin-dependent diabetes mellitus, peripheral vascular disease, opiate use disorder on methadone, chronic hypoxemic respiratory failure on 2 L baseline oxygen due to COVID, essential hypertension, mood disorder, mixed hyperlipidemia who presents to the emergency department for concerns of foot infection. #.?Bilateral lower extremity diabetic foot infection with cellulitis and nonhealing ulcers. He was treated for 6 weeks of Abx in [place] White cell scan suggest soft tissue infection and acute osteomylitis going for or debridement Presently on Cefepime, Clinda and Vanco vanco tough -17. will likely need shelter Abx, Picc line today #.? insulin-dependent diabetes mellitus with hyperglycemia:better. continue present regimen #.? Alcohol use disorder:?CIWA.? Initiating thiamine. CARE team consulted #.? Essential hypertension: Continue home antihypertensives #.? Mood disorder:? Continue home mood stabilizers #.? Chronic hypoxemic respiratory failure secondary to COVID-19:? Patient states he uses 2 L baseline during ambulation #.? Mixed hyperlipidemia: On statin #.? Chronic normocytic anemia.? Hemoglobin above transfusion threshold DVT prophylaxis:? Lovenox 40 mg daily need for inpatient:IV Abx for acute osteomylitis Time Spent With Patient Time: Total time managing care of this patient today ____ minutes. Quality Stroke Does the patient have a stroke diagnosis?: No VTE Prior VTE?: No VTE Risk Level:: Medical - moderate - high VTE Device Contraindication: Treatment Not Indicated VTE Drug Contraindication: N/A - Med Ordered
[2022-08-09 15:31] VITALS: BP 132/70; PULSE 62; RESP 18; TEMP 37.1; O2SAT 96
[2022-08-09 16:29] LABS: Glucose, Whole Blood 274 mg/dL (60-115)
[2022-08-09 19:15] VITALS: BP 111/57; PULSE 68; RESP 18; TEMP 36.4; O2SAT 96
[2022-08-09 19:21] LABS: Glucose, Whole Blood 242 mg/dL (60-115)
[2022-08-09] MEDS: Insulin Glargine,Hum.rec.anlog 100 UNIT/ML 10 ML VIAL 50 UNIT SUBCUT (19:38)
[2022-08-09] MEDS: Atorvastatin Calcium 40 MG TABLET PO (19:39)
[2022-08-09] MEDS: Melatonin 3 MG TABLET 6 MG PO (19:39)
--- NOTE | 2022-08-10 03:26 | PC.NURSE ---
pt refused [address] Worthington aware.
[2022-08-10] MEDS: cefEPime HCl 2 GM in 0.9 % Sodium Chloride 50 ML IV ×3 (04:30→20:47)
[2022-08-10] MEDS: Clindamycin Phosphate/D5W 900 MG/50 ML PIGGYBACK 50 MG IV ×3 (05:08→21:26)
[2022-08-10] MEDS: vancomycin HCL 1,250 MG in 0.9 % Sodium Chloride 250 ML 166.67 MG IV ×2 (06:14→19:13)
[2022-08-10 07:24] VITALS: BP 96/49; PULSE 67; RESP 18; TEMP 36.8; O2SAT 97
[2022-08-10 07:32] LABS: Creatinine Clr Calc Pharmacy 133.3; Estimated Glomerular Filt Rate > 60
[2022-08-10 07:45] LABS: Glucose, Whole Blood 288 mg/dL (60-115)
[2022-08-10] MEDS: methADONE HCl 20 MG/2 ML ORAL.CONC 120 MG PO (07:45)
[2022-08-10] MEDS: amLODIPine Besylate 5 MG TABLET PO (07:45)
[2022-08-10] MEDS: lisinopriL 20 MG TABLET PO (07:46)
[2022-08-10] MEDS: Thiamine HCL 100 MG TABLET PO (07:46)
[2022-08-10] MEDS: cloNIDine HCL 0.2 MG TABLET PO ×2 (07:47→20:46)
[2022-08-10] MEDS: Gabapentin 600 MG TABLET PO ×3 (07:47→20:46)
[2022-08-10] MEDS: clonazePAM 1 MG TABLET 2 MG PO (07:47)
[2022-08-10 07:55] VITALS: BP 109/54
[2022-08-10] MEDS: Insulin Lispro 100 UNIT/ML 3 ML VIAL SUBCUT ×4 (08:04→20:47)
[2022-08-10] MEDS: Insulin Lispro 100 UNIT/ML 3 ML VIAL 10 UNIT SUBCUT ×3 (08:04→20:46)
[2022-08-10] MEDS: QUEtiapine Fumarate 100 MG TABLET PO ×2 (09:48→20:46)
[2022-08-10 11:24] LABS: Glucose, Whole Blood 254 mg/dL (60-115)
--- NOTE | 2022-08-10 13:04 | P.PNIM_ITS ---
Subjective Subjective Date of Service: 08/10/22 Interval History: f/u on diabetic foot ulcer,pain is controlled, no new issues Review of Systems no fevers or nausea or vomitn Physical Exam 2 Vital Signs: Vital Signs: Last Vital Signs Temp 98.2 F 08/10/22 07:24 Pulse 67 08/10/22 07:24 Resp 18 08/10/22 07:24 BP 109/54 L 08/10/22 07:55 Pulse Ox 97 08/10/22 07:24 O2 Del Method 08/10/22 07:24 O2 Flow Rate 2.0 08/10/22 07:24 BMI result Body Mass Index 31.7 Middle-aged male lying in bed in no distress Neck supple, no JVD Regular rate and rhythm, S1-S2 heard Regular breath sounds bilaterally, no wheezing or crackles appreciated Abdomen soft nontender, no guarding, no rigidity Patient is awake, alert and oriented to self, place, time and person ; no focal motor deficit Musculoskeletal:? Bilateral lower extremity with ulcers with serosanguineous drainage Objective Data Active Medications Acetaminophen (Acetaminophen 325 Mg Tablet) 650 mg PO Q6H PRN PRN Reason: Pain, Mild (Pain Scale 1-3) Amlodipine Besylate (Amlodipine Besylate 5 Mg Tablet) 5 mg PO DAILY [facility]; Protocol Last Admin: 08/10/22 07:45 Dose: 5 mg Documented By: CATHERINE Atorvastatin Calcium (Atorvastatin Calcium 40 Mg Tablet) 40 mg PO BEDTIME [facility] Last Admin: 08/09/22 19:39 Dose: 40 mg Documented By: CHADD Clonidine HCl (Clonidine Hcl 0.2 Mg Tablet) 0.2 mg PO TID [facility]; Protocol Last Admin: 08/10/22 07:47 Dose: 0.2 mg Documented By: CATHERINE Heparin Sodium (Porcine) 50 (units/ Sodium Chloride 5 ml) 0 units IVFLUSH QSHIFT [facility] Last Admin: 08/10/22 09:42 Dose: Not Given Documented By: CATHERINE Non-Admin Reason: Patient Refused Dextrose (Dextrose 50 % 25 Gm/50 Ml Syringe) 25 gm IVPUSH Q15M PRN; Protocol PRN Reason: per Hypoglycemia Standing Ord. Gabapentin (Gabapentin 600 Mg Tablet) 600 mg PO TID [facility] Last Admin: 08/10/22 07:47 Dose: 600 mg Documented By: CATHERINE Glucose (Glucose Gel 15 Gm Gel..Gram.) 15 gm PO Q15M PRN; Protocol PRN Reason: per Hypoglycemia Standing Ord. Heparin Sodium (Porcine) (Heparin Sodium,Porcine Flush 50 Units/5 Ml Syringe) 50 units IVFLUSH QSHIFT [facility] Last Admin: 08/10/22 08:44 Dose: Not Given Documented By: CATHERINE Non-Admin Reason: Patient Refused Dextrose (D10) 250 mls @ 750 mls/hr IV Q15M PRN; Protocol PRN Reason: per Hypoglycemia Standing Ord. Cefepime HCl 2 gm/ Sodium (Chloride) 50 mls @ 100 mls/hr IV Q8H [facility] Last Infusion: 08/10/22 05:06 Dose: 0 mls/hr Documented By: CHADD Clindamycin Phosphate (Cleocin) 900 mg in 50 mls @ 50 mls/hr IV Q8H [facility] Last Infusion: 08/10/22 06:17 Dose: 0 mls/hr Documented By: CHADD Vancomycin HCl 1,250 mg/ (Sodium Chloride) 250 mls @ 166.667 mls/hr IV Q12H [facility] Last Infusion: 08/10/22 08:44 Dose: 0 mls/hr Documented By: CATHERINE Insulin Glargine (Insulin Glargine,Hum.Rec.Anlog 100 Unit/Ml 10 Ml Vial) 50 unit SUBCUT BEDTIME [facility] Last Admin: 08/09/22 19:38 Dose: 50 unit Documented By: CHADD Insulin Human Lispro (Insulin Lispro 100 Unit/Ml 3 Ml Vial) 0 unit SUBCUT QIDACHS [facility]; Protocol Last Admin: 08/10/22 11:47 Dose: 6 unit Documented By: CATHERINE Insulin Human Lispro (Insulin Lispro 100 Unit/Ml 3 Ml Vial) 10 unit SUBCUT TID [facility] Last Admin: 08/10/22 08:04 Dose: 10 unit Documented By: CATHERINE Lisinopril (Lisinopril 20 Mg Tablet) 20 mg PO DAILY [facility]; Protocol Last Admin: 08/10/22 07:46 Dose: 20 mg Documented By: CATHERINE Melatonin (Melatonin 3 Mg Tablet) 6 mg PO BEDTIME PRN PRN Reason: Insomnia Last Admin: 08/09/22 19:39 Dose: 6 mg Documented By: CHADD Methadone HCl (Methadone Hcl 20 Mg/2 Ml Oral.Conc) 120 mg PO DAILY [facility] Last Admin: 08/10/22 07:45 Dose: 120 mg Documented By: CATHERINE Ondansetron HCl (Ondansetron Hcl 4 Mg/2 Ml Vial) 4 mg IVPUSH Q8H PRN PRN Reason: Nausea and Vomiting Last Admin: 08/05/22 06:07 Dose: 4 mg Documented By: RUDY Pharmacy Consult (Consult Rx Vancomycin Dosing) 1 each MISCELLANE DAILY PRN PRN Reason: Consult order Pharmacy Consult (Consult Rx Perform Med Rec) 1 each MISCELLANE ONCE PRN PRN Reason: Consult order Quetiapine Fumarate (Quetiapine Fumarate 100 Mg Tablet) 100 mg PO BID [facility] Last Admin: 08/10/22 09:48 Dose: 100 mg Documented By: CATHERINE Sodium Chloride (0.9 % Sodium Chloride Flush 3 Ml Syringe) 3 ml IVFLUSH QSHIFT [facility] Last Admin: 08/10/22 09:43 Dose: Not Given Documented By: CATHERINE Non-Admin Reason: No Access Thiamine HCl (Thiamine Hcl 100 Mg Tablet) 100 mg PO DAILY [facility] Last Admin: 08/10/22 07:46 Dose: 100 mg Documented By: CATHERINE Labs 08/05/22 06:50 08/10/22 06:59 Labs: Laboratory Results - last 24 hr 08/09/22 08/09/22 08/10/22 16:18 19:18 06:59 Estim Creat Clear Calc 133.3 Estimated GFR > 60 POC Glucose 274 H 242 H 08/10/22 08/10/22 07:26 11:19 Estim Creat Clear Calc Estimated GFR POC Glucose 288 H 254 H Microbiology Microbiology Results: Microbiology 08/05/22 03:21 Blood Culture - Final Blood - Venous No growth after 5 days. 08/05/22 03:21 Blood Culture - Final Blood - Venous No growth after 5 days. Assessment and Plan (1) Acute osteomyelitis of foot: Status: Acute Plan 52-year-old male with pertinent history of insulin-dependent diabetes mellitus, peripheral vascular disease, opiate use disorder on methadone, chronic hypoxemic respiratory failure on 2 L baseline oxygen due to COVID, essential hypertension, mood disorder, mixed hyperlipidemia who presents to the emergency department for concerns of foot infection. #.?Bilateral lower extremity diabetic foot infection with cellulitis and nonhealing ulcers. He was treated for 6 weeks of Abx in [place] White cell scan suggest soft tissue infection and acute osteomylitis going for or debridement Presently on Cefepime, Clinda and Vanco vanco tough -17 on 08/09/22. will likely need shelter Abx, Picc line today #.? insulin-dependent diabetes mellitus with hyperglycemia:better. continue present regimen #.? Alcohol use disorder:?CIWA.? Initiating thiamine. CARE team consulted #.? Essential hypertension: Continue home antihypertensives #.? Mood disorder:? Continue home mood stabilizers #.? Chronic hypoxemic respiratory failure secondary to COVID-19:? Patient states he uses 2 L baseline during ambulation #.? Mixed hyperlipidemia: On statin #.? Chronic normocytic anemia.? Hemoglobin above transfusion threshold DVT prophylaxis:? Lovenox 40 mg daily need for inpatient:IV Abx for acute osteomylitis Time Spent With Patient Time: Total time managing care of this patient today ____ minutes. Quality Stroke Does the patient have a stroke diagnosis?: No VTE Prior VTE?: No VTE Risk Level:: Medical - moderate - high VTE Device Contraindication: Treatment Not Indicated VTE Drug Contraindication: N/A - Med Ordered
[2022-08-10 15:04] VITALS: BP 102/56; PULSE 61; RESP 18; TEMP 36.9; O2SAT 97
[2022-08-10 16:57] LABS: Glucose, Whole Blood 287 mg/dL (60-115)
[2022-08-10] MEDS: 0.9 % Sodium Chloride Flush 3 ML SYRINGE IVFLUSH (17:11)
[2022-08-10] MEDS: Heparin Sodium,Porcine Flush 50 UNITS, 0.9 % Sodium Chloride Flush 5 ML IVFLUSH ×2 (17:12→23:05)
[2022-08-10] MEDS: Heparin Sodium,Porcine Flush 50 UNITS/5 ML SYRINGE IVFLUSH ×2 (17:16→23:05)
[2022-08-10 18:44] LABS: Vancomycin Trough 15.3 mcg/mL (10.0-20.0)
[2022-08-10 19:06] VITALS: BP 118/59; PULSE 68; RESP 18; TEMP 36.9; O2SAT 96
[2022-08-10 19:15] LABS: Glucose, Whole Blood 326 mg/dL (60-115)
[2022-08-10] MEDS: Atorvastatin Calcium 40 MG TABLET PO (20:46)
[2022-08-10] MEDS: Melatonin 3 MG TABLET 6 MG PO (20:46)
[2022-08-10] MEDS: Insulin Glargine,Hum.rec.anlog 100 UNIT/ML 10 ML VIAL 50 UNIT SUBCUT (20:52)
[2022-08-10] MEDS: clonazePAM 1 MG TABLET PO (20:59)
[2022-08-11 03:23] VITALS: BP 112/59; PULSE 62; RESP 18; TEMP 36.2; O2SAT 95
[2022-08-11] MEDS: cefEPime HCl 2 GM in 0.9 % Sodium Chloride 50 ML IV ×3 (04:56→20:04)
[2022-08-11] MEDS: Clindamycin Phosphate/D5W 900 MG/50 ML PIGGYBACK 50 MG IV ×3 (05:29→21:25)
[2022-08-11] MEDS: vancomycin HCL 1,250 MG in 0.9 % Sodium Chloride 250 ML 166.67 MG IV ×2 (06:35→18:19)
[2022-08-11 07:39] VITALS: BP 117/62; PULSE 63; RESP 18; TEMP 36.3; O2SAT 93
[2022-08-11 07:40] LABS: Glucose, Whole Blood 268 mg/dL (60-115)
[2022-08-11] MEDS: lisinopriL 20 MG TABLET PO (08:03)
[2022-08-11] MEDS: cloNIDine HCL 0.2 MG TABLET PO ×3 (08:03→20:05)
[2022-08-11] MEDS: Thiamine HCL 100 MG TABLET PO (08:03)
[2022-08-11] MEDS: Gabapentin 600 MG TABLET PO ×3 (08:03→20:05)
[2022-08-11] MEDS: amLODIPine Besylate 5 MG TABLET PO (08:03)
[2022-08-11] MEDS: Heparin Sodium,Porcine Flush 50 UNITS/5 ML SYRINGE IVFLUSH ×3 (08:04→23:19)
[2022-08-11] MEDS: Insulin Lispro 100 UNIT/ML 3 ML VIAL 10 UNIT SUBCUT ×3 (08:04→20:05)
[2022-08-11] MEDS: QUEtiapine Fumarate 100 MG TABLET PO ×2 (08:04→20:05)
[2022-08-11] MEDS: Insulin Lispro 100 UNIT/ML 3 ML VIAL SUBCUT ×4 (08:04→20:05)
[2022-08-11] MEDS: Heparin Sodium,Porcine Flush 50 UNITS, 0.9 % Sodium Chloride Flush 5 ML IVFLUSH ×3 (08:04→23:18)
[2022-08-11] MEDS: methADONE HCl 20 MG/2 ML ORAL.CONC 120 MG PO (08:05)
--- NOTE | 2022-08-11 08:51 | MHC.CM.PN ---
EMR REVIEWED, PT IN NEED OF CORRECTION IV ABX FOR OSTEO, PICC LINE ORDERED THIS AM 08/11 HOWEVER PT DOES NOT HAVE BED OFFER AND WILL NEED STR, PT BANNED FROM [facility] AND UNABLE TO OFFER WELL, PT PN METHADONE MAIN SO HAS LIMITED CHOICES OF FACILITIES. [facility] HOWEVER THEY ARE SISTER FAC[facility] TO [facility] SO NOT LIKELY THEY WILL TAKE PT, CM WILL CONT TO FOLLOW D/C NEEDS.
[2022-08-11] MEDS: clonazePAM 1 MG TABLET 2 MG PO ×2 (08:53→20:05)
[2022-08-11 09:09] LABS: Creatinine Clr Calc Pharmacy 130.2; Estimated Glomerular Filt Rate > 60
[2022-08-11 11:22] LABS: Glucose, Whole Blood 269 mg/dL (60-115)
--- NOTE | 2022-08-11 14:34 | P.PNIM_ITS ---
Subjective Subjective Date of Service: 08/11/22 Interval History: f/u on diabetic foot ulcer,pain is controlled, no new issues Review of Systems no fevers or nausea or vomitng Physical Exam Vital Signs: Vital Signs: Last Vital Signs Temp 97.3 F 08/11/22 07:39 Pulse 63 08/11/22 07:39 Resp 18 08/11/22 07:39 BP 117/62 08/11/22 07:39 Pulse Ox 93 08/11/22 07:39 O2 Del Method 08/11/22 07:39 O2 Flow Rate 2.0 08/11/22 07:39 BMI result Body Mass Index 31.7 Middle-aged male lying in bed in no distress Neck supple, no JVD Regular rate and rhythm, S1-S2 heard Regular breath sounds bilaterally, no wheezing or crackles appreciated Abdomen soft nontender, no guarding, no rigidity Patient is awake, alert and oriented to self, place, time and person ; no focal motor deficit Musculoskeletal:? Bilateral lower extremity with ulcers with minimum discharge. M? Objective Data Active Medications Acetaminophen (Acetaminophen 325 Mg Tablet) 650 mg PO Q6H PRN PRN Reason: Pain, Mild (Pain Scale 1-3) Amlodipine Besylate (Amlodipine Besylate 5 Mg Tablet) 5 mg PO DAILY [facility]; Protocol Last Admin: 08/11/22 08:03 Dose: 5 mg Documented By: PETRA Atorvastatin Calcium (Atorvastatin Calcium 40 Mg Tablet) 40 mg PO BEDTIME [facility] Last Admin: 08/10/22 20:46 Dose: 40 mg Documented By: CHADD Clonazepam (Clonazepam 1 Mg Tablet) 2 mg PO BID [facility] Last Admin: 08/11/22 08:53 Dose: 2 mg Documented By: PETRA Clonidine HCl (Clonidine Hcl 0.2 Mg Tablet) 0.2 mg PO TID [facility]; Protocol Last Admin: 08/11/22 08:03 Dose: 0.2 mg Documented By: PETRA Heparin Sodium (Porcine) 50 (units/ Sodium Chloride 5 ml) 0 units IVFLUSH QSHIFT [facility] Last Admin: 08/11/22 08:04 Dose: 5 unit Documented By: PETRA Dextrose (Dextrose 50 % 25 Gm/50 Ml Syringe) 25 gm IVPUSH Q15M PRN; Protocol PRN Reason: per Hypoglycemia Standing Ord. Gabapentin (Gabapentin 600 Mg Tablet) 600 mg PO TID [facility] Last Admin: 08/11/22 08:03 Dose: 600 mg Documented By: PETRA Glucose (Glucose Gel 15 Gm Gel..Gram.) 15 gm PO Q15M PRN; Protocol PRN Reason: per Hypoglycemia Standing Ord. Heparin Sodium (Porcine) (Heparin Sodium,Porcine Flush 50 Units/5 Ml Syringe) 50 units IVFLUSH QSHIFT [facility] Last Admin: 08/11/22 08:04 Dose: 50 units Documented By: PETRA Dextrose (D10) 250 mls @ 750 mls/hr IV Q15M PRN; Protocol PRN Reason: per Hypoglycemia Standing Ord. Cefepime HCl 2 gm/ Sodium (Chloride) 50 mls @ 100 mls/hr IV Q8H [facility] Last Infusion: 08/11/22 12:49 Dose: 0 mls/hr Documented By: PETRA Clindamycin Phosphate (Cleocin) 900 mg in 50 mls @ 50 mls/hr IV Q8H [facility] Last Infusion: 08/11/22 14:02 Dose: 0 mls/hr Documented By: PETRA Vancomycin HCl 1,250 mg/ (Sodium Chloride) 250 mls @ 166.667 mls/hr IV Q12H [facility] Last Infusion: 08/11/22 08:44 Dose: 0 mls/hr Documented By: PETRA Insulin Glargine (Insulin Glargine,Hum.Rec.Anlog 100 Unit/Ml 10 Ml Vial) 50 unit SUBCUT BEDTIME [facility] Last Admin: 08/10/22 20:52 Dose: 50 unit Documented By: ASCENCIONQC Insulin Human Lispro (Insulin Lispro 100 Unit/Ml 3 Ml Vial) 0 unit SUBCUT QIDACHS [facility]; Protocol Last Admin: 08/11/22 11:46 Dose: 6 unit Documented By: PETRA Insulin Human Lispro (Insulin Lispro 100 Unit/Ml 3 Ml Vial) 10 unit SUBCUT TID [facility] Last Admin: 08/11/22 08:04 Dose: 10 unit Documented By: PETRA Lisinopril (Lisinopril 20 Mg Tablet) 20 mg PO DAILY [facility]; Protocol Last Admin: 08/11/22 08:03 Dose: 20 mg Documented By: PETRA Melatonin (Melatonin 3 Mg Tablet) 6 mg PO BEDTIME PRN PRN Reason: Insomnia Last Admin: 08/10/22 20:46 Dose: 6 mg Documented By: ASCENCIONQC Methadone HCl (Methadone Hcl 20 Mg/2 Ml Oral.Conc) 120 mg PO DAILY [facility] Last Admin: 08/11/22 08:05 Dose: 120 mg Documented By: PETRA Ondansetron HCl (Ondansetron Hcl 4 Mg/2 Ml Vial) 4 mg IVPUSH Q8H PRN PRN Reason: Nausea and Vomiting Last Admin: 08/05/22 06:07 Dose: 4 mg Documented By: RUDY Pharmacy Consult (Consult Rx Vancomycin Dosing) 1 each MISCELLANE DAILY PRN PRN Reason: Consult order Pharmacy Consult (Consult Rx Perform Med Rec) 1 each MISCELLANE ONCE PRN PRN Reason: Consult order Quetiapine Fumarate (Quetiapine Fumarate 100 Mg Tablet) 100 mg PO BID [facility] Last Admin: 08/11/22 08:04 Dose: 100 mg Documented By: PETRA Sodium Chloride (0.9 % Sodium Chloride Flush 3 Ml Syringe) 3 ml IVFLUSH QSHIFT [facility] Last Admin: 08/11/22 08:05 Dose: Not Given Documented By: PETRA Non-Admin Reason: No Access Thiamine HCl (Thiamine Hcl 100 Mg Tablet) 100 mg PO DAILY [facility] Last Admin: 08/11/22 08:03 Dose: 100 mg Documented By: PETRA Labs 08/05/22 06:50 08/11/22 08:18 Labs: Laboratory Results - last 24 hr 08/10/22 08/10/22 08/10/22 16:46 17:40 19:09 Estim Creat Clear Calc Estimated GFR POC Glucose 287 H 326 H Vancomycin Trough 15.3 08/11/22 08/11/22 08/11/22 07:21 08:18 11:16 Estim Creat Clear Calc 130.2 Estimated GFR > 60 POC Glucose 268 H 269 H Vancomycin Trough Assessment and Plan (1) Acute osteomyelitis of foot: Status: Acute Plan 52-year-old male with pertinent history of insulin-dependent diabetes mellitus, peripheral vascular disease, opiate use disorder on methadone, chronic hypoxemic respiratory failure on 2 L baseline oxygen due to COVID, essential hypertension, mood disorder, mixed hyperlipidemia who presents to the emergency department for concerns of foot infection. #.?Bilateral lower extremity diabetic foot infection with cellulitis and nonhealing ulcers. He was treated for 6 weeks of Abx in [place] White cell scan suggest soft tissue infection and acute osteomylitis going for or debridement Presently on Cefepime, Clinda and Vanco vanco tough -15.3 on 08/09/22. will likely need custodial Abx, Picc line today #.? insulin-dependent diabetes mellitus with hyperglycemia:better. continue present regimen #.? Alcohol use disorder:?CIWA.? Initiating thiamine. CARE team consulted #.? Essential hypertension: Continue home antihypertensives #.? Mood disorder:? Continue home mood stabilizers #.? Chronic hypoxemic respiratory failure secondary to COVID-19:? Patient states he uses 2 L baseline during ambulation #.? Mixed hyperlipidemia: On statin #.? Chronic normocytic anemia.? Hemoglobin above transfusion threshold DVT prophylaxis:? Lovenox 40 mg daily need for inpatient:IV Abx for acute osteomylitis Time Spent With Patient Time: Total time managing care of this patient today ____ minutes. Quality Stroke Does the patient have a stroke diagnosis?: No VTE Prior VTE?: No VTE Risk Level:: Medical - moderate - high VTE Device Contraindication: Treatment Not Indicated VTE Drug Contraindication: N/A - Med Ordered
[2022-08-11 15:35] VITALS: BP 120/58; PULSE 66; RESP 16; TEMP 36.8; O2SAT 97
[2022-08-11 16:31] LABS: Glucose, Whole Blood 291 mg/dL (60-115)
[2022-08-11 18:00] LABS: Vancomycin Random 15.5 mcg/mL (15-20)
--- NOTE | 2022-08-11 18:11 | HE.PHANOTE ---
RE: Vanco dosing SCr still stable at 0.85 and trough today is 15.5. Will get another trough 3/10 at 1700.
[2022-08-11 19:28] VITALS: BP 115/57; PULSE 63; RESP 16; TEMP 36.6; O2SAT 95
[2022-08-11 19:52] LABS: Glucose, Whole Blood 276 mg/dL (60-115)
[2022-08-11] MEDS: Atorvastatin Calcium 40 MG TABLET PO (20:05)
[2022-08-11] MEDS: Melatonin 3 MG TABLET 6 MG PO (20:05)
[2022-08-11] MEDS: Insulin Glargine,Hum.rec.anlog 100 UNIT/ML 10 ML VIAL 50 UNIT SUBCUT (20:06)
[2022-08-12 03:29] VITALS: BP 97/55; PULSE 64; RESP 17; TEMP 36.6; O2SAT 99
[2022-08-12] MEDS: cefEPime HCl 2 GM in 0.9 % Sodium Chloride 50 ML IV ×3 (04:42→21:20)
[2022-08-12] MEDS: Clindamycin Phosphate/D5W 900 MG/50 ML PIGGYBACK 50 MG IV (05:15)
[2022-08-12] MEDS: vancomycin HCL 1,250 MG in 0.9 % Sodium Chloride 250 ML 166.67 MG IV (06:23)
[2022-08-12 07:08] VITALS: BP 112/59; PULSE 64; RESP 17; TEMP 36.7; O2SAT 98
[2022-08-12 07:19] LABS: Glucose, Whole Blood 336 mg/dL (60-115)
[2022-08-12] MEDS: Insulin Lispro 100 UNIT/ML 3 ML VIAL SUBCUT ×4 (07:55→21:27)
[2022-08-12] MEDS: clonazePAM 1 MG TABLET 2 MG PO ×2 (07:56→21:28)
[2022-08-12] MEDS: cloNIDine HCL 0.2 MG TABLET PO ×3 (07:56→21:28)
[2022-08-12] MEDS: QUEtiapine Fumarate 100 MG TABLET PO ×2 (07:56→21:28)
[2022-08-12] MEDS: Gabapentin 600 MG TABLET PO ×3 (07:56→21:28)
[2022-08-12] MEDS: Thiamine HCL 100 MG TABLET PO (07:56)
[2022-08-12] MEDS: lisinopriL 20 MG TABLET PO (07:57)
[2022-08-12] MEDS: amLODIPine Besylate 5 MG TABLET PO (07:57)
[2022-08-12] MEDS: methADONE HCl 20 MG/2 ML ORAL.CONC 120 MG PO (07:59)
[2022-08-12] MEDS: Heparin Sodium,Porcine Flush 50 UNITS/5 ML SYRINGE IVFLUSH (08:02)
[2022-08-12] MEDS: Heparin Sodium,Porcine Flush 50 UNITS, 0.9 % Sodium Chloride Flush 5 ML IVFLUSH (08:02)
[2022-08-12 08:24] LABS: Creatinine Clr Calc Pharmacy 124.3; Estimated Glomerular Filt Rate > 60
[2022-08-12] MEDS: Insulin Lispro 100 UNIT/ML 3 ML VIAL 10 UNIT SUBCUT ×3 (09:47→21:27)
[2022-08-12 11:38] LABS: Glucose, Whole Blood 212 mg/dL (60-115)
--- NOTE | 2022-08-12 12:57 | W.PM.CCHP ---
Procedures Date of Service Date of Service: 08/12/22 Central Line Placement Right IJ: Central Line Comments: Due to a need for prolonged IV access and new sterile line centrally was placed for and antibiotic infusions after sterile preparation in and draping utilizing the right internal jugular vein with with ultrasound guidance gained easy entry passing AJ tipped guidewire and and then over that a triple-lumen central venous pressure catheter and chest x-ray confirming perfect position of the tip in the proximal right atrium with no evidence of pneumothorax so was uncomplicated procedure it was sewn into place sterilely dressed Consent for Procedure: Elective - informed consent obtained Time out performed: Yes Sterile Technique Used: Yes Patient placed on monitor/pulse ox: Yes prep: mask, gown and gloves Central line prep: Chlorhexidine scrub Local anesthesia used: lidocaine 1% Ultrasound used for placement: Yes Central line lumen inserted: triple Post procedure: sutured in place, good blood return, all ports aspirated, flushed, capped and sterile dressing applied Post procedure x-ray: tip of catheter in good position and no pneumothorax seen Patient tolerated procedure: well and no complications Complications: none
--- NOTE | 2022-08-12 13:17 | HO.PM.IMPN ---
Subjective Subjective Date of Service: 08/12/22 Interval History: f/u on diabetic foot ulcer,pain is controlled, no new issues Review of Systems no fevers or nausea or vomitng Physical Exam Vital Signs: Vital Signs: Last Vital Signs Temp 98.0 F 08/12/22 07:08 Pulse 64 08/12/22 07:08 Resp 17 08/12/22 07:08 BP 112/59 L 08/12/22 07:08 Pulse Ox 98 08/12/22 07:08 O2 Del Method 08/12/22 07:08 O2 Flow Rate 2.0 08/12/22 07:08 BMI result Body Mass Index 31.7 Middle-aged male lying in bed in no distress Neck supple, no JVD Regular rate and rhythm, S1-S2 heard Regular breath sounds bilaterally, no wheezing or crackles appreciated Abdomen soft nontender, no guarding, no rigidity Patient is awake, alert and oriented to self, place, time and person ; no focal motor deficit Musculoskeletal:? Bilateral lower extremity with ulcers with minimum discharge. Objective Data Active Medications Acetaminophen (Acetaminophen 325 Mg Tablet) 650 mg PO Q6H PRN PRN Reason: Pain, Mild (Pain Scale 1-3) Amlodipine Besylate (Amlodipine Besylate 5 Mg Tablet) 5 mg PO DAILY [facility]; Protocol Last Admin: 08/12/22 07:57 Dose: 5 mg Documented By: REY Atorvastatin Calcium (Atorvastatin Calcium 40 Mg Tablet) 40 mg PO BEDTIME [facility] Last Admin: 08/11/22 20:05 Dose: 40 mg Documented By: CHADD Clonazepam (Clonazepam 1 Mg Tablet) 2 mg PO BID [facility] Last Admin: 08/12/22 07:56 Dose: 2 mg Documented By: REY Clonidine HCl (Clonidine Hcl 0.2 Mg Tablet) 0.2 mg PO TID [facility]; Protocol Last Admin: 08/12/22 07:56 Dose: 0.2 mg Documented By: REY Dextrose (Dextrose 50 % 25 Gm/50 Ml Syringe) 25 gm IVPUSH Q15M PRN; Protocol PRN Reason: per Hypoglycemia Standing Ord. Enoxaparin Sodium (Enoxaparin Sodium 40 Mg/0.4 Ml Syringe) 40 mg SUBCUT Q24H [facility] Last Admin: 08/12/22 11:48 Dose: Not Given Documented By: REY Non-Admin Reason: Patient Refused Gabapentin (Gabapentin 600 Mg Tablet) 600 mg PO TID [facility] Last Admin: 08/12/22 07:56 Dose: 600 mg Documented By: ERY Glucose (Glucose Gel 15 Gm Gel..Gram.) 15 gm PO Q15M PRN; Protocol PRN Reason: per Hypoglycemia Standing Ord. Dextrose (D10) 250 mls @ 750 mls/hr IV Q15M PRN; Protocol PRN Reason: per Hypoglycemia Standing Ord. Cefepime HCl 2 gm/ Sodium (Chloride) 50 mls @ 100 mls/hr IV Q8H [facility] Last Admin: 08/12/22 12:48 Dose: 100 mls/hr Documented By: REY Insulin Glargine (Insulin Glargine,Hum.Rec.Anlog 100 Unit/Ml 10 Ml Vial) 50 unit SUBCUT BEDTIME [facility] Last Admin: 08/11/22 20:06 Dose: 50 unit Documented By: CHADD Insulin Human Lispro (Insulin Lispro 100 Unit/Ml 3 Ml Vial) 0 unit SUBCUT QIDACHS [facility]; Protocol Last Admin: 08/12/22 11:46 Dose: 4 unit Documented By: REY Insulin Human Lispro (Insulin Lispro 100 Unit/Ml 3 Ml Vial) 10 unit SUBCUT TID [facility] Last Admin: 08/12/22 09:47 Dose: 10 unit Documented By: REY Lisinopril (Lisinopril 20 Mg Tablet) 20 mg PO DAILY [facility]; Protocol Last Admin: 08/12/22 07:57 Dose: 20 mg Documented By: REY Melatonin (Melatonin 3 Mg Tablet) 6 mg PO BEDTIME PRN PRN Reason: Insomnia Last Admin: 08/11/22 20:05 Dose: 6 mg Documented By: CHADD Methadone HCl (Methadone Hcl 20 Mg/2 Ml Oral.Conc) 120 mg PO DAILY [facility] Last Admin: 08/12/22 07:59 Dose: 120 mg Documented By: REY Ondansetron HCl (Ondansetron Hcl 4 Mg/2 Ml Vial) 4 mg IVPUSH Q8H PRN PRN Reason: Nausea and Vomiting Last Admin: 08/05/22 06:07 Dose: 4 mg Documented By: RUDY Pharmacy Consult (Consult Rx Vancomycin Dosing) 1 each MISCELLANE DAILY PRN PRN Reason: Consult order Pharmacy Consult (Consult Rx Perform Med Rec) 1 each MISCELLANE ONCE PRN PRN Reason: Consult order Quetiapine Fumarate (Quetiapine Fumarate 100 Mg Tablet) 100 mg PO BID [facility] Last Admin: 08/12/22 07:56 Dose: 100 mg Documented By: REY Sodium Chloride (0.9 % Sodium Chloride Flush 3 Ml Syringe) 3 ml IVFLUSH QSHIFT [facility] Last Admin: 08/12/22 08:38 Dose: Not Given Documented By: REY Non-Admin Reason: No Access Thiamine HCl (Thiamine Hcl 100 Mg Tablet) 100 mg PO DAILY [facility] Last Admin: 08/12/22 07:56 Dose: 100 mg Documented By: REY Labs 08/05/22 06:50 08/12/22 07:41 Labs: Laboratory Results - last 24 hr 08/11/22 08/11/22 08/11/22 16:23 17:25 19:33 Estim Creat Clear Calc Estimated GFR POC Glucose 291 H 276 H Random Vancomycin 15.5 08/12/22 08/12/22 08/12/22 06:55 07:41 11:33 Estim Creat Clear Calc 124.3 Estimated GFR > 60 POC Glucose 336 H 212 H Random Vancomycin Assessment and Plan (1) Acute osteomyelitis of foot: Status: Acute Plan 52-year-old male with pertinent history of insulin-dependent diabetes mellitus, peripheral vascular disease, opiate use disorder on methadone, chronic hypoxemic respiratory failure on 2 L baseline oxygen due to COVID, essential hypertension, mood disorder, mixed hyperlipidemia who presents to the emergency department for concerns of foot infection. #.?Bilateral lower extremity diabetic foot infection with cellulitis and nonhealing ulcers. He was treated for 6 weeks of Abx in [place] White cell scan suggest soft tissue infection and acute osteomylitis going for or debridement Presently on Cefepime, Clinda and Vanco vanco tough -15.3 on 08/09/22-antibiotics will likely need [facility] Abx, mri foot added. #.? insulin-dependent diabetes mellitus with hyperglycemia:better. continue present regimen #.? Alcohol use disorder:?CIWA.? Initiating thiamine. CARE team consulted #.? Essential hypertension: Continue home antihypertensives #.? Mood disorder:? Continue home mood stabilizers #.? Chronic hypoxemic respiratory failure secondary to COVID-19:? Patient states he uses 2 L baseline during ambulation #.? Mixed hyperlipidemia: On statin #.? Chronic normocytic anemia.? Hemoglobin above transfusion threshold DVT prophylaxis:? Lovenox 40 mg daily need for inpatient:IV Abx for acute osteomylitis, foot osteomyelitis workup pendin. Time Spent With Patient Time: Total time managing care of this patient today ____ minutes. Quality Stroke Does the patient have a stroke diagnosis?: No VTE Prior VTE?: No VTE Risk Level:: Medical - moderate - high VTE Device Contraindication: Treatment Not Indicated VTE Drug Contraindication: N/A - Med Ordered
--- NOTE | 2022-08-12 14:55 | MHC.CM.PN ---
per rounds pt is ready for dc there is no avaliable bed search continues
[2022-08-12 15:14] LABS: Glucose, Whole Blood 337 mg/dL (60-115)
[2022-08-12 15:23] VITALS: BP 113/55; PULSE 70; RESP 16; TEMP 36.9; O2SAT 95
[2022-08-12 16:43] LABS: Glucose, Whole Blood 342 mg/dL (60-115)
--- NOTE | 2022-08-12 18:21 | PC.NURSE ---
Patient went for MRI ,unable to cover BS
[2022-08-12 18:37] LABS: Glucose, Whole Blood 344 mg/dL (60-115)
[2022-08-12 19:15] LABS: Vancomycin Random 15.4 mcg/mL (15-20)
[2022-08-12 19:29] VITALS: BP 122/63; PULSE 70; RESP 16; TEMP 36.6; O2SAT 97
[2022-08-12 21:05] LABS: Glucose, Whole Blood 297 mg/dL (60-115)
[2022-08-12] MEDS: Insulin Glargine,Hum.rec.anlog 100 UNIT/ML 10 ML VIAL 50 UNIT SUBCUT (21:25)
[2022-08-12] MEDS: Atorvastatin Calcium 40 MG TABLET PO (21:28)
[2022-08-13 03:18] VITALS: BP 117/60; PULSE 68; RESP 16; TEMP 36; O2SAT 97
[2022-08-13] MEDS: cefEPime HCl 2 GM in 0.9 % Sodium Chloride 50 ML IV ×3 (04:40→20:42)
[2022-08-13 07:13] VITALS: BP 114/56; PULSE 68; RESP 18; TEMP 36.2; O2SAT 98
[2022-08-13 07:31] LABS: Glucose, Whole Blood 273 mg/dL (60-115)
[2022-08-13] MEDS: Insulin Lispro 100 UNIT/ML 3 ML VIAL SUBCUT ×6 (08:16→22:31)
[2022-08-13] MEDS: Gabapentin 600 MG TABLET PO (08:32)
[2022-08-13] MEDS: Thiamine HCL 100 MG TABLET PO (08:32)
[2022-08-13] MEDS: methADONE HCl 20 MG/2 ML ORAL.CONC 120 MG PO (08:32)
[2022-08-13] MEDS: cloNIDine HCL 0.2 MG TABLET PO ×3 (08:32→20:42)
[2022-08-13] MEDS: QUEtiapine Fumarate 100 MG TABLET PO ×2 (08:33→20:42)
[2022-08-13] MEDS: lisinopriL 20 MG TABLET PO (08:33)
[2022-08-13] MEDS: amLODIPine Besylate 5 MG TABLET PO (08:33)
[2022-08-13] MEDS: clonazePAM 1 MG TABLET 2 MG PO ×2 (08:33→20:42)
[2022-08-13] MEDS: Insulin Lispro 100 UNIT/ML 3 ML VIAL 10 UNIT SUBCUT ×2 (09:16→22:32)
[2022-08-13] MEDS: 0.9 % Sodium Chloride Flush 3 ML SYRINGE IVFLUSH (09:17)
[2022-08-13 10:04] LABS: Creatinine Clr Calc Pharmacy 127.2; Estimated Glomerular Filt Rate > 60
--- NOTE | 2022-08-13 10:31 | HO.PM.IMPN ---
Subjective Subjective Date of Service: 08/13/22 Interval History: f/u on diabetic foot ulcer,pain is controlled, no new issues Review of Systems no fevers or nausea or vomitng Physical Exam Vital Signs: Vital Signs: Last Vital Signs Temp 97.2 F 08/13/22 07:13 Pulse 68 08/13/22 07:13 Resp 18 08/13/22 07:13 BP 114/56 L 08/13/22 07:13 Pulse Ox 98 08/13/22 07:13 O2 Del Method 08/13/22 07:13 O2 Flow Rate 2 08/12/22 19:29 BMI result Body Mass Index 31.7 Middle-aged male lying in bed in no distress Neck supple, no JVD Regular rate and rhythm, S1-S2 heard Regular breath sounds bilaterally, no wheezing or crackles appreciated Abdomen soft nontender, no guarding, no rigidity Patient is awake, alert and oriented to self, place, time and person ; no focal motor deficit Musculoskeletal:? Bilateral lower extremity with ulcers with minimum discharge. Objective Data Active Medications Acetaminophen (Acetaminophen 325 Mg Tablet) 975 mg PO TID [facility] Last Admin: 08/13/22 09:15 Dose: Not Given Documented By: REY Non-Admin Reason: Patient Refused Amlodipine Besylate (Amlodipine Besylate 5 Mg Tablet) 5 mg PO DAILY [facility]; Protocol Last Admin: 08/13/22 08:33 Dose: 5 mg Documented By: REY Atorvastatin Calcium (Atorvastatin Calcium 40 Mg Tablet) 40 mg PO BEDTIME [facility] Last Admin: 08/12/22 21:28 Dose: 40 mg Documented By: TORSTEN Clonazepam (Clonazepam 1 Mg Tablet) 2 mg PO BID [facility] Last Admin: 08/13/22 08:33 Dose: 2 mg Documented By: REY Clonidine HCl (Clonidine Hcl 0.2 Mg Tablet) 0.2 mg PO TID [facility]; Protocol Last Admin: 08/13/22 08:32 Dose: 0.2 mg Documented By: REY Dextrose (Dextrose 50 % 25 Gm/50 Ml Syringe) 25 gm IVPUSH Q15M PRN; Protocol PRN Reason: per Hypoglycemia Standing Ord. Enoxaparin Sodium (Enoxaparin Sodium 40 Mg/0.4 Ml Syringe) 40 mg SUBCUT Q24H [facility] Last Admin: 08/12/22 11:48 Dose: Not Given Documented By: REY Non-Admin Reason: Patient Refused Gabapentin (Gabapentin 400 Mg Capsule) 800 mg PO TID [facility] Glucose (Glucose Gel 15 Gm Gel..Gram.) 15 gm PO Q15M PRN; Protocol PRN Reason: per Hypoglycemia Standing Ord. Dextrose (D10) 250 mls @ 750 mls/hr IV Q15M PRN; Protocol PRN Reason: per Hypoglycemia Standing Ord. Cefepime HCl 2 gm/ Sodium (Chloride) 50 mls @ 100 mls/hr IV Q8H [facility] Last Infusion: 08/13/22 05:15 Dose: 0 mls/hr Documented By: ZAKI Insulin Glargine (Insulin Glargine,Hum.Rec.Anlog 100 Unit/Ml 10 Ml Vial) 50 unit SUBCUT BEDTIME [facility] Last Admin: 08/12/22 21:25 Dose: 50 unit Documented By: TORSTEN Insulin Human Lispro (Insulin Lispro 100 Unit/Ml 3 Ml Vial) 0 unit SUBCUT QIDACHS [facility]; Protocol Last Admin: 08/13/22 08:16 Dose: 6 unit Documented By: EDI-SOFFA Insulin Human Lispro (Insulin Lispro 100 Unit/Ml 3 Ml Vial) 10 unit SUBCUT TID [facility] Last Admin: 08/13/22 09:16 Dose: 10 unit Documented By: REY Lisinopril (Lisinopril 20 Mg Tablet) 20 mg PO DAILY [facility]; Protocol Last Admin: 08/13/22 08:33 Dose: 20 mg Documented By: REY Melatonin (Melatonin 3 Mg Tablet) 6 mg PO BEDTIME PRN PRN Reason: Insomnia Last Admin: 08/11/22 20:05 Dose: 6 mg Documented By: CHADD Methadone HCl (Methadone Hcl 20 Mg/2 Ml Oral.Conc) 120 mg PO DAILY [facility] Last Admin: 08/13/22 08:32 Dose: 120 mg Documented By: REY Ondansetron HCl (Ondansetron Hcl 4 Mg/2 Ml Vial) 4 mg IVPUSH Q8H PRN PRN Reason: Nausea and Vomiting Last Admin: 08/05/22 06:07 Dose: 4 mg Documented By: RUDY Pharmacy Consult (Consult Rx Vancomycin Dosing) 1 each MISCELLANE DAILY PRN PRN Reason: Consult order Pharmacy Consult (Consult Rx Perform Med Rec) 1 each MISCELLANE ONCE PRN PRN Reason: Consult order Quetiapine Fumarate (Quetiapine Fumarate 100 Mg Tablet) 100 mg PO BID [facility] Last Admin: 08/13/22 08:33 Dose: 100 mg Documented By: REY Sodium Chloride (0.9 % Sodium Chloride Flush 3 Ml Syringe) 3 ml IVFLUSH QSHIFT [facility] Last Admin: 08/13/22 09:17 Dose: 3 ml Documented By: REY Thiamine HCl (Thiamine Hcl 100 Mg Tablet) 100 mg PO DAILY [facility] Last Admin: 08/13/22 08:32 Dose: 100 mg Documented By: REY Labs 08/05/22 06:50 08/13/22 09:21 Labs: Laboratory Results - last 24 hr 08/12/22 08/12/22 08/12/22 11:33 15:09 16:37 Estim Creat Clear Calc Estimated GFR POC Glucose 212 H 337 H 342 H Random Vancomycin 08/12/22 08/12/22 08/12/22 18:32 18:38 21:01 Estim Creat Clear Calc Estimated GFR POC Glucose 344 H 297 H Random Vancomycin 15.4 08/13/22 08/13/22 07:17 09:21 Estim Creat Clear Calc 127.2 Estimated GFR > 60 POC Glucose 273 H Random Vancomycin Assessment and Plan (1) Acute osteomyelitis of foot: Status: Acute Plan 52-year-old male with pertinent history of insulin-dependent diabetes mellitus, peripheral vascular disease, opiate use disorder on methadone, chronic hypoxemic respiratory failure on 2 L baseline oxygen due to COVID, essential hypertension, mood disorder, mixed hyperlipidemia who presents to the emergency department for concerns of foot infection. ?Bilateral lower extremity diabetic foot infection with cellulitis and nonhealing ulcers. He was treated for 6 weeks of Abx in [place] White cell scan suggest soft tissue infection and acute osteomylitis going for or debridement Presently on Cefepime, Clinda and Vanco vanco tough -15.3 on 08/09/22-antibiotics continue tylenol/gabapentin as adjusted. will likely need fpc Abx, mri foot done -reading pending. insulin-dependent diabetes mellitus with hyperglycemia:better. continue present regimen Alcohol use disorder:?CIWA.? Initiating thiamine. CARE team consulted Essential hypertension: Continue home antihypertensives Mood disorder:? Continue home mood stabilizers Chronic hypoxemic respiratory failure secondary to COVID-19:? Patient states he uses 2 L baseline during ambulation Mixed hyperlipidemia: On statin Chronic normocytic anemia.? Hemoglobin above transfusion threshold DVT prophylaxis:? Lovenox 40 mg daily need for inpatient:IV Abx for acute osteomylitis, foot osteomyelitis workup pendin. Time Spent With Patient Time: Total time managing care of this patient today ____ minutes. Quality Stroke Does the patient have a stroke diagnosis?: No VTE Prior VTE?: No VTE Risk Level:: Medical - moderate - high VTE Device Contraindication: Treatment Not Indicated VTE Drug Contraindication: N/A - Med Ordered
[2022-08-13 11:14] LABS: Glucose, Whole Blood 259 mg/dL (60-115)
[2022-08-13] MEDS: Gabapentin 400 MG CAPSULE 800 MG PO ×2 (14:31→20:42)
[2022-08-13 14:49] VITALS: BP 133/66; PULSE 91; RESP 18; TEMP 36.4; O2SAT 97
[2022-08-13 15:02] LABS: Glucose, Whole Blood 223 mg/dL (60-115)
[2022-08-13 16:22] LABS: Glucose, Whole Blood 403 mg/dL (60-115)
--- NOTE | 2022-08-13 16:31 | PC.NURSE ---
patient requesting Roxicodone for pain,Dr. Patel notified,encouraged patient to use prescribed Tylenol for pain but patient refused.
--- NOTE | 2022-08-13 17:44 | PC.NURSE ---
BS [id number] at [id number] ,Dr. Patel notified
[2022-08-13 19:28] VITALS: BP 111/68; PULSE 82; RESP 18; TEMP 36.3
[2022-08-13] MEDS: Atorvastatin Calcium 40 MG TABLET PO (20:42)
[2022-08-13 22:06] LABS: Glucose, Whole Blood 211 mg/dL (60-115)
[2022-08-13] MEDS: Insulin Glargine,Hum.rec.anlog 100 UNIT/ML 10 ML VIAL 50 UNIT SUBCUT (22:30)
[2022-08-14 04:00] VITALS: BP 148/75; PULSE 87; RESP 18; TEMP 36.4; O2SAT 98
[2022-08-14] MEDS: cefEPime HCl 2 GM in 0.9 % Sodium Chloride 50 ML IV ×3 (05:02→20:28)
[2022-08-14 07:20] VITALS: BP 139/66; PULSE 75; RESP 16; TEMP 36.7; O2SAT 99
[2022-08-14 07:24] LABS: Creatinine Clr Calc Pharmacy 138.3; Estimated Glomerular Filt Rate > 60
[2022-08-14 07:36] LABS: Glucose, Whole Blood 186 mg/dL (60-115)
[2022-08-14] MEDS: methADONE HCl 20 MG/2 ML ORAL.CONC 120 MG PO (07:41)
[2022-08-14] MEDS: lisinopriL 20 MG TABLET PO (07:42)
[2022-08-14] MEDS: amLODIPine Besylate 5 MG TABLET PO (07:42)
[2022-08-14] MEDS: Thiamine HCL 100 MG TABLET PO (07:42)
[2022-08-14] MEDS: Gabapentin 400 MG CAPSULE 800 MG PO ×3 (07:42→20:34)
[2022-08-14] MEDS: clonazePAM 1 MG TABLET 2 MG PO ×2 (07:42→20:34)
[2022-08-14] MEDS: QUEtiapine Fumarate 100 MG TABLET PO ×2 (07:43→20:34)
[2022-08-14] MEDS: cloNIDine HCL 0.2 MG TABLET PO ×3 (07:43→20:34)
[2022-08-14] MEDS: Acetaminophen 325 MG TABLET 975 MG PO (07:44)
[2022-08-14] MEDS: Insulin Lispro 100 UNIT/ML 3 ML VIAL SUBCUT ×4 (07:45→20:35)
--- NOTE | 2022-08-14 10:29 | P.PNIM_ITS ---
Subjective Subjective Date of Service: 08/14/22 Interval History: f/u on diabetic foot ulcer,pain is controlled, no new issues Review of Systems no fevers or nausea or vomitng Physical Exam Vital Signs: Vital Signs: Last Vital Signs Temp 98.0 F 08/14/22 07:20 Pulse 75 08/14/22 07:20 Resp 16 08/14/22 07:20 BP 139/66 08/14/22 07:20 Pulse Ox 99 08/14/22 07:20 O2 Del Method 08/14/22 07:20 O2 Flow Rate 2 08/14/22 04:00 BMI result Body Mass Index 31.7 Middle-aged male lying in bed in no distress Neck supple, no JVD Regular rate and rhythm, S1-S2 heard Regular breath sounds bilaterally, no wheezing or crackles appreciated Abdomen soft nontender, no guarding, no rigidity Patient is awake, alert and oriented to self, place, time and person ; no focal motor deficit Musculoskeletal:? Bilateral lower extremity with ulcers with minimum discharge Objective Data Active Medications Acetaminophen (Acetaminophen 325 Mg Tablet) 975 mg PO TID [facility] Last Admin: 08/14/22 07:44 Dose: 975 mg Documented By: REY Amlodipine Besylate (Amlodipine Besylate 5 Mg Tablet) 5 mg PO DAILY [facility]; Protocol Last Admin: 08/14/22 07:42 Dose: 5 mg Documented By: REY Atorvastatin Calcium (Atorvastatin Calcium 40 Mg Tablet) 40 mg PO BEDTIME [facility] Last Admin: 08/13/22 20:42 Dose: 40 mg Documented By: TORSTEN Clonazepam (Clonazepam 1 Mg Tablet) 2 mg PO BID [facility] Last Admin: 08/14/22 07:42 Dose: 2 mg Documented By: REY Clonidine HCl (Clonidine Hcl 0.2 Mg Tablet) 0.2 mg PO TID [facility]; Protocol Last Admin: 08/14/22 07:43 Dose: 0.2 mg Documented By: REY Dextrose (Dextrose 50 % 25 Gm/50 Ml Syringe) 25 gm IVPUSH Q15M PRN; Protocol PRN Reason: per Hypoglycemia Standing Ord. Enoxaparin Sodium (Enoxaparin Sodium 40 Mg/0.4 Ml Syringe) 40 mg SUBCUT Q24H [facility] Last Admin: 08/14/22 10:17 Dose: Not Given Documented By: REY Non-Admin Reason: Patient Refused Gabapentin (Gabapentin 400 Mg Capsule) 800 mg PO TID [facility] Last Admin: 08/14/22 07:42 Dose: 800 mg Documented By: REY Glucose (Glucose Gel 15 Gm Gel..Gram.) 15 gm PO Q15M PRN; Protocol PRN Reason: per Hypoglycemia Standing Ord. Dextrose (D10) 250 mls @ 750 mls/hr IV Q15M PRN; Protocol PRN Reason: per Hypoglycemia Standing Ord. Cefepime HCl 2 gm/ Sodium (Chloride) 50 mls @ 100 mls/hr IV Q8H [facility] Last Infusion: 08/14/22 05:40 Dose: 0 mls/hr Documented By: ZAKI Insulin Glargine (Insulin Glargine,Hum.Rec.Anlog 100 Unit/Ml 10 Ml Vial) 50 unit SUBCUT BEDTIME [facility] Last Admin: 08/13/22 22:30 Dose: 50 unit Documented By: TORSTEN Insulin Human Lispro (Insulin Lispro 100 Unit/Ml 3 Ml Vial) 0 unit SUBCUT QIDACHS [facility]; Protocol Last Admin: 08/14/22 07:45 Dose: 2 unit Documented By: REY Insulin Human Lispro (Insulin Lispro 100 Unit/Ml 3 Ml Vial) 10 unit SUBCUT TID [facility] Last Admin: 08/14/22 09:45 Dose: Not Given Documented By: REY Non-Admin Reason: md to change Lisinopril (Lisinopril 20 Mg Tablet) 20 mg PO DAILY [facility]; Protocol Last Admin: 08/14/22 07:42 Dose: 20 mg Documented By: REY Melatonin (Melatonin 3 Mg Tablet) 6 mg PO BEDTIME PRN PRN Reason: Insomnia Last Admin: 08/11/22 20:05 Dose: 6 mg Documented By: CHADD Methadone HCl (Methadone Hcl 20 Mg/2 Ml Oral.Conc) 120 mg PO DAILY [facility] Last Admin: 08/14/22 07:41 Dose: 120 mg Documented By: REY Ondansetron HCl (Ondansetron Hcl 4 Mg/2 Ml Vial) 4 mg IVPUSH Q8H PRN PRN Reason: Nausea and Vomiting Last Admin: 08/05/22 06:07 Dose: 4 mg Documented By: RUDY Pharmacy Consult (Consult Rx Vancomycin Dosing) 1 each MISCELLANE DAILY PRN PRN Reason: Consult order Pharmacy Consult (Consult Rx Perform Med Rec) 1 each MISCELLANE ONCE PRN PRN Reason: Consult order Quetiapine Fumarate (Quetiapine Fumarate 100 Mg Tablet) 100 mg PO BID [facility] Last Admin: 08/14/22 07:43 Dose: 100 mg Documented By: REY Sodium Chloride (0.9 % Sodium Chloride Flush 3 Ml Syringe) 3 ml IVFLUSH QSHIFT [facility] Last Admin: 08/13/22 23:32 Dose: Not Given Documented By: ZAKI Non-Admin Reason: TLC FLUSH ONLY Thiamine HCl (Thiamine Hcl 100 Mg Tablet) 100 mg PO DAILY [facility] Last Admin: 08/14/22 07:42 Dose: 100 mg Documented By: REY Labs 08/05/22 06:50 08/14/22 05:51 Labs: Laboratory Results - last 24 hr 08/13/22 08/13/22 08/13/22 09:21 11:08 14:50 Estim Creat Clear Calc 127.2 Estimated GFR > 60 POC Glucose 259 H 223 H 08/13/22 08/13/22 08/14/22 16:18 22:01 05:51 Estim Creat Clear Calc 138.3 Estimated GFR > 60 POC Glucose 403 H* 211 H 08/14/22 07:24 Estim Creat Clear Calc Estimated GFR POC Glucose 186 H Assessment and Plan (1) Acute osteomyelitis of foot: Status: Acute Plan 52-year-old male with pertinent history of insulin-dependent diabetes mellitus, peripheral vascular disease, opiate use disorder on methadone, chronic hypoxemic respiratory failure on 2 L baseline oxygen due to COVID, essential hypertension, mood disorder, mixed hyperlipidemia who presents to the emergency department for concerns of foot infection. ?Bilateral lower extremity diabetic foot infection with cellulitis and nonhealing ulcers. He was treated for 6 weeks of Abx in [place] White cell scan suggest soft tissue infection and acute osteomylitis going for or debridement Presently on Cefepime, Clinda and Vanco vanco tough -15.3 on 08/09/22-antibiotics continue tylenol/gabapentin as adjusted. will likely need senior care Abx, mri foot done -reading pending. insulin-dependent diabetes mellitus with hyperglycemia:better. continue present regimen Alcohol use disorder:?CIWA.? Initiating thiamine. CARE team consulted Essential hypertension: Continue home antihypertensives Mood disorder:? Continue home mood stabilizers Chronic hypoxemic respiratory failure secondary to COVID-19:? Patient states he uses 2 L baseline during ambulation Mixed hyperlipidemia: On statin Chronic normocytic anemia.? Hemoglobin above transfusion threshold DVT prophylaxis:? Lovenox 40 mg daily need for inpatient:IV Abx for acute osteomylitis. Time Spent With Patient Time: Total time managing care of this patient today ____ minutes. Quality Stroke Does the patient have a stroke diagnosis?: No VTE Prior VTE?: No VTE Risk Level:: Medical - moderate - high VTE Device Contraindication: Treatment Not Indicated VTE Drug Contraindication: N/A - Med Ordered
[2022-08-14 11:29] LABS: Glucose, Whole Blood 252 mg/dL (60-115)
[2022-08-14] MEDS: Insulin Lispro 100 UNIT/ML 3 ML VIAL 10 UNIT SUBCUT ×2 (11:30→17:11)
[2022-08-14] MEDS: 0.9 % Sodium Chloride Flush 3 ML SYRINGE IVFLUSH ×2 (11:32→23:30)
[2022-08-14] MEDS: Heparin Sodium,Porcine Flush 50 UNITS, 0.9 % Sodium Chloride Flush 5 ML IVFLUSH ×6 (13:41→23:30)
[2022-08-14 16:00] VITALS: BP 140/71; PULSE 80; RESP 18; TEMP 36.8; O2SAT 94
[2022-08-14 16:37] LABS: Glucose, Whole Blood 326 mg/dL (60-115)
[2022-08-14 20:00] VITALS: BP 117/62; PULSE 77; RESP 18; TEMP 36.9; O2SAT 94
[2022-08-14 20:18] LABS: Glucose, Whole Blood 278 mg/dL (60-115)
[2022-08-14] MEDS: Atorvastatin Calcium 40 MG TABLET PO (20:34)
[2022-08-14] MEDS: Insulin Glargine,Hum.rec.anlog 100 UNIT/ML 10 ML VIAL 50 UNIT SUBCUT (20:36)
[2022-08-15 03:26] VITALS: BP 102/65; PULSE 64; RESP 18; TEMP 36.5; O2SAT 99
[2022-08-15] MEDS: cefEPime HCl 2 GM in 0.9 % Sodium Chloride 50 ML IV (04:46)
[2022-08-15 06:40] LABS: Creatinine Clr Calc Pharmacy 138.3; Estimated Glomerular Filt Rate > 60
[2022-08-15 07:12] VITALS: BP 113/65; PULSE 64; RESP 18; TEMP 36.1; O2SAT 92
[2022-08-15 07:35] LABS: Glucose, Whole Blood 352 mg/dL (60-115)
[2022-08-15] MEDS: Gabapentin 400 MG CAPSULE 800 MG PO ×3 (07:35→20:59)
[2022-08-15] MEDS: clonazePAM 1 MG TABLET 2 MG PO ×2 (07:36→20:59)
[2022-08-15] MEDS: Thiamine HCL 100 MG TABLET PO (07:36)
[2022-08-15] MEDS: lisinopriL 20 MG TABLET PO (07:36)
[2022-08-15] MEDS: Acetaminophen 325 MG TABLET 975 MG PO ×2 (07:36→23:20)
[2022-08-15] MEDS: amLODIPine Besylate 5 MG TABLET PO (07:36)
[2022-08-15] MEDS: cloNIDine HCL 0.2 MG TABLET PO ×2 (07:36→15:29)
[2022-08-15] MEDS: QUEtiapine Fumarate 100 MG TABLET PO ×2 (07:37→20:59)
[2022-08-15] MEDS: Heparin Sodium,Porcine Flush 50 UNITS, 0.9 % Sodium Chloride Flush 5 ML IVFLUSH ×7 (07:37→23:19)
[2022-08-15] MEDS: methADONE HCl 20 MG/2 ML ORAL.CONC 120 MG PO (07:37)
[2022-08-15] MEDS: Insulin Lispro 100 UNIT/ML 3 ML VIAL SUBCUT ×4 (07:37→20:58)
[2022-08-15] MEDS: Insulin Lispro 100 UNIT/ML 3 ML VIAL 10 UNIT SUBCUT ×3 (07:43→16:54)
--- NOTE | 2022-08-15 10:30 | HO.PM.IMPN ---
Subjective Subjective Date of Service: 08/15/22 Interval History: f/u on diabetic foot ulcer,pain is controlled, no new issues Review of Systems no fevers or nausea or vomitng Physical Exam Vital Signs: Vital Signs: Last Vital Signs Temp 97.0 F 08/15/22 07:12 Pulse 64 08/15/22 07:12 Resp 18 08/15/22 07:12 BP 113/65 08/15/22 07:12 Pulse Ox 92 08/15/22 07:12 O2 Del Method 08/15/22 07:12 O2 Flow Rate 2 08/15/22 03:26 BMI result Body Mass Index 31.7 ?Middle-aged male lying in bed in no distress Neck supple, no JVD Regular rate and rhythm, S1-S2 heard Regular breath sounds bilaterally, no wheezing or crackles appreciated Abdomen soft nontender, no guarding, no rigidity Patient is awake, alert and oriented to self, place, time and person ; no focal motor deficit Musculoskeletal:? Bilateral lower extremity with ulcers with minimum discharge Objective Data Active Medications Acetaminophen (Acetaminophen 325 Mg Tablet) 975 mg PO TID [facility] Last Admin: 08/15/22 07:36 Dose: 975 mg Documented By: ELOY Amlodipine Besylate (Amlodipine Besylate 5 Mg Tablet) 5 mg PO DAILY [facility]; Protocol Last Admin: 08/15/22 07:36 Dose: 5 mg Documented By: ELOY Atorvastatin Calcium (Atorvastatin Calcium 40 Mg Tablet) 40 mg PO BEDTIME [facility] Last Admin: 08/14/22 20:34 Dose: 40 mg Documented By: TORSTEN Clonazepam (Clonazepam 1 Mg Tablet) 2 mg PO BID [facility] Last Admin: 08/15/22 07:36 Dose: 2 mg Documented By: ELOY Clonidine HCl (Clonidine Hcl 0.2 Mg Tablet) 0.2 mg PO TID [facility]; Protocol Last Admin: 08/15/22 07:36 Dose: 0.2 mg Documented By: ELOY Heparin Sodium (Porcine) 50 (units/ Sodium Chloride 5 ml) 0 units IVFLUSH [facility] Last Admin: 08/15/22 07:37 Dose: 50 unit Documented By: ELOY Heparin Sodium (Porcine) 50 (units/ Sodium Chloride 5 ml) 0 units IVFLUSH [facility] Last Admin: 08/15/22 07:38 Dose: 50 unit Documented By: ELOY Heparin Sodium (Porcine) 50 (units/ Sodium Chloride 5 ml) 0 units IVFLUSH QSHIFT [facility] Last Admin: 08/15/22 07:39 Dose: 50 unit Documented By: ELOY Dextrose (Dextrose 50 % 25 Gm/50 Ml Syringe) 25 gm IVPUSH Q15M PRN; Protocol PRN Reason: per Hypoglycemia Standing Ord. Enoxaparin Sodium (Enoxaparin Sodium 40 Mg/0.4 Ml Syringe) 40 mg SUBCUT Q24H [facility] Last Admin: 08/14/22 10:17 Dose: Not Given Documented By: REY Non-Admin Reason: Patient Refused Gabapentin (Gabapentin 400 Mg Capsule) 800 mg PO TID [facility] Last Admin: 08/15/22 07:35 Dose: 800 mg Documented By: ELOY Glucose (Glucose Gel 15 Gm Gel..Gram.) 15 gm PO Q15M PRN; Protocol PRN Reason: per Hypoglycemia Standing Ord. Dextrose (D10) 250 mls @ 750 mls/hr IV Q15M PRN; Protocol PRN Reason: per Hypoglycemia Standing Ord. Insulin Glargine (Insulin Glargine,Hum.Rec.Anlog 100 Unit/Ml 10 Ml Vial) 50 unit SUBCUT BEDTIME [facility] Last Admin: 08/14/22 20:36 Dose: 50 unit Documented By: TORSTEN Insulin Human Lispro (Insulin Lispro 100 Unit/Ml 3 Ml Vial) 10 unit SUBCUT TID@0730,1130,1630 [facility] Last Admin: 08/15/22 07:43 Dose: 10 unit Documented By: ELOY Insulin Human Lispro (Insulin Lispro 100 Unit/Ml 3 Ml Vial) 0 unit SUBCUT QIDACHS [facility]; Protocol Last Admin: 08/15/22 07:37 Dose: 10 unit Documented By: ELOY Lisinopril (Lisinopril 20 Mg Tablet) 20 mg PO DAILY [facility]; Protocol Last Admin: 08/15/22 07:36 Dose: 20 mg Documented By: ELOY Melatonin (Melatonin 3 Mg Tablet) 6 mg PO BEDTIME PRN PRN Reason: Insomnia Last Admin: 08/11/22 20:05 Dose: 6 mg Documented By: CHADD Methadone HCl (Methadone Hcl 20 Mg/2 Ml Oral.Conc) 120 mg PO DAILY [facility] Last Admin: 08/15/22 07:37 Dose: 120 mg Documented By: ELOY Ondansetron HCl (Ondansetron Hcl 4 Mg/2 Ml Vial) 4 mg IVPUSH Q8H PRN PRN Reason: Nausea and Vomiting Last Admin: 08/05/22 06:07 Dose: 4 mg Documented By: RUDY Pharmacy Consult (Consult Rx Perform Med Rec) 1 each MISCELLANE ONCE PRN PRN Reason: Consult order Quetiapine Fumarate (Quetiapine Fumarate 100 Mg Tablet) 100 mg PO BID [facility] Last Admin: 08/15/22 07:37 Dose: 100 mg Documented By: ELOY Sodium Chloride (0.9 % Sodium Chloride Flush 3 Ml Syringe) 3 ml IVFLUSH QSHIFT [facility] Last Admin: 08/15/22 07:40 Dose: Not Given Documented By: ELOY Non-Admin Reason: ppt has triple lumen catheter Thiamine HCl (Thiamine Hcl 100 Mg Tablet) 100 mg PO DAILY [facility] Last Admin: 08/15/22 07:36 Dose: 100 mg Documented By: ELOY Labs 08/05/22 06:50 08/15/22 06:03 Labs: Laboratory Results - last 24 hr 08/14/22 08/14/22 08/14/22 11:15 16:22 20:14 Estim Creat Clear Calc Estimated GFR POC Glucose 252 H 326 H 278 H 08/15/22 08/15/22 06:03 07:15 Estim Creat Clear Calc 138.3 Estimated GFR > 60 POC Glucose 352 H* Assessment and Plan (1) Acute osteomyelitis of foot: Status: Acute Plan 52-year-old male with pertinent history of insulin-dependent diabetes mellitus, peripheral vascular disease, opiate use disorder on methadone, chronic hypoxemic respiratory failure on 2 L baseline oxygen due to COVID, essential hypertension, mood disorder, mixed hyperlipidemia who presents to the emergency department for concerns of foot infection. ?Bilateral lower extremity diabetic foot infection with cellulitis and nonhealing ulcers. He was treated for 6 weeks of Abx [place] White cell scan suggest soft tissue infection and acute osteomylitis going for or debridement Presently on Cefepime,off Clinda and Vanco. continue tylenol/gabapentin as adjusted. will likely need [facility] Abx, mri foot done -reading pending. insulin-dependent diabetes mellitus with hyperglycemia:better. continue present regimen Alcohol use disorder:?CIWA.? Initiating thiamine. CARE team consulted Essential hypertension: Continue home antihypertensives Mood disorder:? Continue home mood stabilizers Chronic hypoxemic respiratory failure secondary to COVID-19:? Patient states he uses 2 L baseline during ambulation Mixed hyperlipidemia: On statin Chronic normocytic anemia.? Hemoglobin above transfusion threshold DVT prophylaxis:? Lovenox 40 mg daily need for inpatient:IV Abx for acute osteomylitis.awaiting placement Time Spent With Patient Time: Total time managing care of this patient today ____ minutes. Quality Stroke Does the patient have a stroke diagnosis?: No VTE Prior VTE?: No VTE Risk Level:: Medical - moderate - high VTE Device Contraindication: Treatment Not Indicated VTE Drug Contraindication: N/A - Med Ordered
--- NOTE | 2022-08-15 10:34 | P.PNIM_ITS ---
Subjective Subjective Date of Service: 08/24/22 Interval History: f/u on diabetic foot ulcer,pain is controlled, no new issues Review of Systems no fevers or nausea or vomitng Physical Exam Vital Signs: Vital Signs: Last Vital Signs Temp 97.0 F 08/15/22 07:12 Pulse 64 08/15/22 07:12 Resp 18 08/15/22 07:12 BP 113/65 08/15/22 07:12 Pulse Ox 92 08/15/22 07:12 O2 Del Method 08/15/22 07:12 O2 Flow Rate 2 08/15/22 03:26 BMI result Body Mass Index 31.7 Middle-aged male lying in bed in no distress Neck supple, no JVD Regular rate and rhythm, S1-S2 heard Regular breath sounds bilaterally, no wheezing or crackles appreciated Abdomen soft nontender, no guarding, no rigidity Patient is awake, alert and oriented to self, place, time and person ; no focal motor deficit Musculoskeletal:? Bilateral lower extremity with ulcers with minimum discharge Objective Data Active Medications Acetaminophen (Acetaminophen 325 Mg Tablet) 975 mg PO TID [facility] Last Admin: 08/15/22 07:36 Dose: 975 mg Documented By: ELOY Amlodipine Besylate (Amlodipine Besylate 5 Mg Tablet) 5 mg PO DAILY [facility]; Prot ocol Last Admin: 08/15/22 07:36 Dose: 5 mg Documented By: ELOY Atorvastatin Calcium (Atorvastatin Calcium 40 Mg Tablet) 40 mg PO BEDTIME [facility] Last Admin: 08/14/22 20:34 Dose: 40 mg Documented By: TORSTEN Clonazepam (Clonazepam 1 Mg Tablet) 2 mg PO BID [facility] Last Admin: 08/15/22 07:36 Dose: 2 mg Documented By: ELOY Clonidine HCl (Clonidine Hcl 0.2 Mg Tablet) 0.2 mg PO TID [facility]; Protocol Last Admin: 08/15/22 07:36 Dose: 0.2 mg Documented By: ELOY Heparin Sodium (Porcine) 50 (units/ Sodium Chloride 5 ml) 0 units IVFLUSH QS IFT [facility] Last Admin: 08/15/22 07:37 Dose: 50 unit Documented By: ELOY Heparin Sodium (Porcine) 50 (units/ Sodium Chloride 5 ml) 0 units IVFLUSH QSHIFT [facility] Last Admin: 08/15/22 07:38 Dose: 50 unit Documented By: ELOY Heparin Sodium (Porcine) 50 (units/ Sodium Chloride 5 ml) 0 units IVFLUSH QSHIFT [facility] Last Admin: 08/15/22 07:39 Dose: 50 unit Documented By: ELOY Dextrose (Dextrose 50 % 25 Gm/50 Ml Syringe) 25 gm IVPUSH Q15M PRN; Protocol PRN Reason: per Hypoglycemia Standing Ord. Enoxaparin Sodium (Enoxaparin Sodium 40 Mg/0.4 Ml Syringe) 40 mg SUBCUT Q24H [facility] Last Admin: 08/14/22 10:17 Dose: Not Given Documented By: REY Non-Admin Reason: Patient Refused Gabapentin (Gabapentin 400 Mg Capsule) 800 mg PO TID [facility] Last Admin: 08/15/22 07:35 Dose: 800 mg Documented By: ELOY Glucose (Glucose Gel 15 Gm Gel..Gram.) 15 gm PO Q15M PRN; Protocol PRN Reason: per Hypoglycemia Standing Ord. Dextrose (D10) 250 mls @ 750 mls/hr IV Q15M PRN; Protocol PRN Reason: per Hypoglycemia Standing Ord. Insulin Glargine (Insulin Glargine,Hum.Rec.Anlog 100 Unit/Ml 10 Ml Vial) 50 unit SUBCUT BEDTIME [facility] Last Admin: 08/14/22 20:36 Dose: 50 unit Documented By: TORSTEN Insulin Human Lispro (Insulin Lispro 100 Unit/Ml 3 Ml Vial) 10 unit SUBCUT TID@0730,1130,1630 [facility] Last Admin: 08/15/22 07:43 Dose: 10 unit Documented By: ELOY Insulin Human Lispro (Insulin Lispro 100 Unit/Ml 3 Ml Vial) 0 unit SUBCUT QIDACHS [facility]; Protocol Last Admin: 08/15/22 07:37 Dose: 10 unit Documented By: ELOY Lisinopril (Lisinopril 20 Mg Tablet) 20 mg PO DAILY [facility]; Protocol Last Admin: 08/15/22 07:36 Dose: 20 mg Documented By: ELOY Melatonin (Melatonin 3 Mg Tablet) 6 mg PO BEDTIME PRN PRN Reason: Insomnia Last Admin: 08/11/22 20:05 Dose: 6 mg Documented By: CHADD Methadone HCl (Methadone Hcl 20 Mg/2 Ml Oral.Conc) 120 mg PO DAILY [facility] Last Admin: 08/15/22 07:37 Dose: 120 mg Documented By: ELOY Ondansetron HCl (Ondansetron Hcl 4 Mg/2 Ml Vial) 4 mg IVPUSH Q8H PRN PRN Reason: Nausea and Vomiting Last Admin: 08/05/22 06:07 Dose: 4 mg Documented By: RUDY Pharmacy Consult (Consult Rx Perform Med Rec) 1 each MISCELLANE ONCE PRN PRN Reason: Consult order Quetiapine Fumarate (Quetiapine Fumarate 100 Mg Tablet) 100 mg PO BID [facility] Last Admin: 08/15/22 07:37 Dose: 100 mg Documented By: ELOY Sodium Chloride (0.9 % Sodium Chloride Flush 3 Ml Syringe) 3 ml IVFLUSH QSHIFT [facility] Last Admin: 08/15/22 07:40 Dose: Not Given Documented By: ELOY Non-Admin Reason: ppt has triple lumen catheter Thiamine HCl (Thiamine Hcl 100 Mg Tablet) 100 mg PO DAILY [facility] Last Admin: 08/15/22 07:36 Dose: 100 mg Documented By: ELOY Labs 08/05/22 06:50 08/15/22 06:03 Labs: Laboratory Results - last 24 hr 08/14/22 08/14/22 08/14/22 11:15 16:22 20:14 Estim Creat Clear Calc Estimated GFR POC Glucose 252 H 326 H 278 H 08/15/22 08/15/22 06:03 07:15 Estim Creat Clear Calc 138.3 Estimated GFR > 60 POC Glucose 352 H* Assessment and Plan (1) Acute osteomyelitis of foot: Status: Acute Plan 52-year-old male with pertinent history of insulin-dependent diabetes mellitus, peripheral vascular disease, opiate use disorder on methadone, chronic hypoxemic respiratory failure on 2 L baseline oxygen due to COVID, essential hypertension, mood disorder, mixed hyperlipidemia who presents to the emergency department for concerns of foot infection. ?Bilateral lower extremity diabetic foot infection with cellulitis and nonhealing ulcers. He was treated for 6 weeks of Abx in [place] White cell scan suggest soft tissue infection and acute osteomylitis going for or debridement Presently on Cefepime,off Clinda and Vanco. continue tylenol/gabapentin as adjusted. will likely need group home Abx, mri foot done -reading pending. insulin-dependent diabetes mellitus with hyperglycemia:better. continue present regimen Alcohol use disorder:?CIWA.? Initiating thiamine. CARE team consulted Essential hypertension: Continue home antihypertensives Mood disorder:? Continue home mood stabilizers Chronic hypoxemic respiratory failure secondary to COVID-19:? Patient states he uses 2 L baseline during ambulation Mixed hyperlipidemia: On statin Chronic normocytic anemia.? Hemoglobin above transfusion threshold boderline bp: Patient asymptomatic, possible due to bp meds , hold bp meds ,add ed LR. DVT prophylaxis:? Lovenox 40 mg daily need for inpatient:IV Abx for acute osteomylitis.awaiting placement Time Spent With Patient Time: Total time managing care of this patient today ____ minutes. Quality Stroke Does the patient have a stroke diagnosis?: No VTE Prior VTE?: No VTE Risk Level:: Medical - moderate - high VTE Device Contraindication: Treatment Not Indicated VTE Drug Contraindication: N/A - Med Ordered
[2022-08-15 11:19] LABS: Glucose, Whole Blood 295 mg/dL (60-115)
--- NOTE | 2022-08-15 15:24 | MHC.CM.PN ---
Addendum entered by Rhea Padilla 08/15/22 16:13: [facility] is asking questions. Patient will discharge on 1 ABX. It may be Cefepime per DR Patel. One ABX will be prescribed at discharge. Original Note: The bed search has been expanded. A clinical update has been sent. Patient requires IV ABX and Methadone management. CM will follow for placement. DP LT IV ABX @ SNF via BLS.
[2022-08-15 16:00] VITALS: BP 90/50; PULSE 59; RESP 16; TEMP 36.3; O2SAT 94
[2022-08-15] MEDS: Lactated Ringers 1,000 ML 100 ML IVCONT (16:12)
[2022-08-15 16:38] LABS: Glucose, Whole Blood 324 mg/dL (60-115)
[2022-08-15 20:00] VITALS: BP 110/61; PULSE 58; RESP 18; TEMP 36.1; O2SAT 96
--- NOTE | 2022-08-15 20:46 | P.EN_ITS ---
Event Note Date of Service: 08/15/22 Event Note: rapid response was called at the patient. Upon arrival the nurse said that patient was satting in the 70s on his usual 2 L supplemental oxygen. Patient states he went to use the restroom without oxygen and when he came back he was short of breath. He was on non-rebreather at the time of my evaluation. Hemodynamically stable. Was able to wean the patient off back to his baseline 2 L while in the room. No tachycardia although he does complain of some mid sternal non-pleuritic chest discomfort and dyspnea. will obtain x-ray, ABG, troponin. Time Spent With Patient Time: Total time managing care of this patient today ____ minutes.
[2022-08-15] MEDS: Insulin Glargine,Hum.rec.anlog 100 UNIT/ML 10 ML VIAL 50 UNIT SUBCUT (20:57)
[2022-08-15 20:59] LABS: Glucose, Whole Blood 388 mg/dL (60-115)
[2022-08-15] MEDS: Atorvastatin Calcium 40 MG TABLET PO (20:59)
--- NOTE | 2022-08-15 21:06 | PM.EVENT ---
Event Note Date of Service: 08/15/22 Event Note: RN notified this provider of RUE weakness noted at 2051. Pt seen and examined at that time. Pt reporting weakness right arm. Denies any other focal weakness or paresthesia. On exam 0/5 strength RUE, with positive right arm drop. 5/5 strength LUE and BLE. CN II-XII in tact, no dysarthria appreciated. Stat head CT and CTA head/neck ordered. Pt allergic to aspirin. 75mg plavix to be administered pending nursing bedside swallow eval. Neuro consult place, call placed to neurology service, awaiting call back. On Lovenox for DVT prophylaxis, no other anticoagulation. Risk factors for stroke include poorly controlled diabetes. No history CVA. Discussed with Dr. Dias Time Spent With Patient Time: Total time managing care of this patient today ____ minutes.
[2022-08-15 21:12] LABS: Venous Blood Gas Refer to POC result
[2022-08-15 21:13] LABS: VBG Base Excess -0.9 mmol/L; VBG HCO3 24 mmol/L (22-26); VBG pCO2 40 mmHg; VBG pH 7.38 (7.32-7.43); VBG pO2 43 mmHg
[2022-08-15 21:31] LABS: Troponin-I High Sensitivity < 3.5 ng/L (<3.5-35.0)
[2022-08-15 21:34] LABS: B Type Natriuretic Peptide 18 pg/mL (<100)
[2022-08-15 21:46] LABS: INTERNATIONAL NORM RATIO 1.1 (0.9-1.1); Prothrombin Time 12.6 SEC (10.0-13.1)
[2022-08-15] MEDS: iohexoL 350 MG/ML 100 ML INFUS..BTL IV (22:03)
[2022-08-15] MEDS: Clopidogrel Bisulfate 75 MG TABLET PO (23:20)
[2022-08-15 23:28] VITALS: BP 126/73; PULSE 75; RESP 18; TEMP 36.3; O2SAT 93
[2022-08-16] MEDS: Heparin Sodium,Porcine Flush 50 UNITS, 0.9 % Sodium Chloride Flush 5 ML IVFLUSH ×8 (01:18→15:20)
[2022-08-16] MEDS: Lactated Ringers 1,000 ML 100 ML IVCONT ×2 (02:21→20:36)
[2022-08-16 03:45] VITALS: BP 107/59; PULSE 69; RESP 18; TEMP 36.6; O2SAT 95
--- NOTE | 2022-08-16 03:55 | PC.NURSE ---
@20:24 pt desat to 80%, pt was work of breathing, triple lumen dressing was half opened, and LR IV line was disconnected. pt yelled at me to connect to the IV. one of port was out. called rapid respond. provided [id number] mask w/15L O2, 100% sat. dr. Dias ordered lab. @20:54, I noticed that pt has right arm weakness. Called doctor, SIGRID Galan came to see the pt. Dr. Dias came over to assess and ordered head scan CT. Q2 neuro checking as provider ordered. right arm weakness is improved. He can lift up to the air. stay within 2-3 seconds. pt back to baseline O2 sat 94% with 2L via NC.
[2022-08-16 07:11] LABS: Cholesterol 95 mg/dL; Creatinine Clr Calc Pharmacy 120.3; Estimated Glomerular Filt Rate > 60; HDL Cholesterol 34 mg/dL; LDL Cholesterol Calculated 38 mg/dl; Triglycerides 115 mg/dL
[2022-08-16 07:58] LABS: Glucose, Whole Blood 329 mg/dL (60-115)
[2022-08-16 08:00] VITALS: BP 113/61; PULSE 68; RESP 18; TEMP 36.4; O2SAT 96
[2022-08-16] MEDS: Gabapentin 400 MG CAPSULE 800 MG PO ×3 (08:59→20:43)
[2022-08-16] MEDS: Clopidogrel Bisulfate 75 MG TABLET PO (08:59)
[2022-08-16] MEDS: clonazePAM 1 MG TABLET 2 MG PO ×2 (08:59→22:40)
[2022-08-16] MEDS: Thiamine HCL 100 MG TABLET PO (08:59)
[2022-08-16] MEDS: QUEtiapine Fumarate 100 MG TABLET PO ×2 (08:59→20:43)
[2022-08-16] MEDS: Insulin Lispro 100 UNIT/ML 3 ML VIAL 10 UNIT SUBCUT ×3 (09:03→16:46)
[2022-08-16] MEDS: Insulin Lispro 100 UNIT/ML 3 ML VIAL SUBCUT ×4 (09:03→20:44)
[2022-08-16] MEDS: methADONE HCl 20 MG/2 ML ORAL.CONC 120 MG PO (09:04)
--- NOTE | 2022-08-16 10:18 | P.PNIM_ITS ---
Subjective Subjective Date of Service: 08/16/22 Interval History: f/u on osteo of foot overnight events noted RR for low O2 when O2 was off and a second RR for RUE weakness CT head and neck negativ, function fully returned and he is refusing MRI Review of Systems no stroke symptoms Physical Exam Vital Signs: Vital Signs: Last Vital Signs Temp 97.5 F 08/16/22 08:00 Pulse 68 08/16/22 08:00 Resp 18 08/16/22 08:00 BP 113/61 08/16/22 08:00 Pulse Ox 96 08/16/22 08:00 O2 Del Method 08/16/22 08:00 O2 Flow Rate 2 08/16/22 08:00 BMI result Body Mass Index 31.7 Const: Other: ? Middle-aged male lying in bed in no distress Neck supple, no JVD Regular rate and rhythm, S1-S2 heard Regular breath sounds bilaterally, no wheezing or crackles appreciated Abdomen soft nontender, no guarding, no rigidity Patient is awake, alert and oriented to self, place, time and person ; no focal motor deficit Musculoskeletal:? Bilateral lower extremity with ulcers noted Neuro: No focal deficit Objective Data Active Medications Acetaminophen (Acetaminophen 325 Mg Tablet) 975 mg PO TID [facility] Last Admin: 08/16/22 09:05 Dose: Not Given Documented By: ELOY Non-Admin Reason: Patient Refused Amlodipine Besylate (Amlodipine Besylate 5 Mg Tablet) 5 mg PO DAILY [facility]; Protocol Last Admin: 08/15/22 07:36 Dose: 5 mg Documented By: ELOY Atorvastatin Calcium (Atorvastatin Calcium 40 Mg Tablet) 40 mg PO BEDTIME [facility] Last Admin: 08/15/22 20:59 Dose: 40 mg Documented By: WENDI Clonidine HCl (Clonidine Hcl 0.2 Mg Tablet) 0.2 mg PO TID [facility]; Protocol Last Admin: 08/15/22 15:29 Dose: 0.2 mg Documented By: ELOY Clopidogrel Bisulfate (Clopidogrel Bisulfate 75 Mg Tablet) 75 mg PO DAILY [facility] Last Admin: 08/16/22 08:59 Dose: 75 mg Documented By: ELOY Heparin Sodium (Porcine) 50 (units/ Sodium Chloride 5 ml) 0 units IVFLUSH QSHIFT [facility] Last Admin: 08/16/22 09:00 Dose: 50 unit Documented By: ELOY Heparin Sodium (Porcine) 50 (units/ Sodium Chloride 5 ml) 0 units IVFLUSH [facility] Last Admin: 08/16/22 09:01 Dose: 50 unit Documented By: ELOY Heparin Sodium (Porcine) 50 (units/ Sodium Chloride 5 ml) 0 units IVFLUSH [facility] Last Admin: 08/16/22 09:02 Dose: 50 unit Documented By: ELOY Dextrose (Dextrose 50 % 25 Gm/50 Ml Syringe) 25 gm IVPUSH Q15M PRN; Protocol PRN Reason: per Hypoglycemia Standing Ord. Enoxaparin Sodium (Enoxaparin Sodium 40 Mg/0.4 Ml Syringe) 40 mg SUBCUT Q24H [facility] Last Admin: 08/15/22 12:07 Dose: Not Given Documented By: ELOY Non-Admin Reason: Patient Refused Gabapentin (Gabapentin 400 Mg Capsule) 800 mg PO TID [facility] Last Admin: 08/16/22 08:59 Dose: 800 mg Documented By: ELOY Glucose (Glucose Gel 15 Gm Gel..Gram.) 15 gm PO Q15M PRN; Protocol PRN Reason: per Hypoglycemia Standing Ord. Dextrose (D10) 250 mls @ 750 mls/hr IV Q15M PRN; Protocol PRN Reason: per Hypoglycemia Standing Ord. Lactated Ringer's (Lr) 1,000 mls @ 100 mls/hr IVCONT .Q10H [facility] Last Admin: 08/16/22 02:21 Dose: 100 mls/hr Documented By: WENDI Insulin Glargine (Insulin Glargine,Hum.Rec.Anlog 100 Unit/Ml 10 Ml Vial) 50 unit SUBCUT BEDTIME [facility] Last Admin: 08/15/22 20:57 Dose: 50 unit Documented By: WENDI Insulin Human Lispro (Insulin Lispro 100 Unit/Ml 3 Ml Vial) 10 unit SUBCUT TID@0730,1130,1630 [facility] Last Admin: 08/16/22 09:03 Dose: 10 unit Documented By: ELOY Insulin Human Lispro (Insulin Lispro 100 Unit/Ml 3 Ml Vial) 0 unit SUBCUT QIDACHS [facility]; Protocol Last Admin: 08/16/22 09:03 Dose: 8 unit Documented By: ELOY Lisinopril (Lisinopril 20 Mg Tablet) 20 mg PO DAILY [facility]; Protocol Last Admin: 08/15/22 07:36 Dose: 20 mg Documented By: ELOY Melatonin (Melatonin 3 Mg Tablet) 6 mg PO BEDTIME PRN PRN Reason: Insomnia Last Admin: 08/11/22 20:05 Dose: 6 mg Documented By: CHADD Methadone HCl (Methadone Hcl 20 Mg/2 Ml Oral.Conc) 120 mg PO DAILY [facility] Last Admin: 08/16/22 09:04 Dose: 120 mg Documented By: ELOY Ondansetron HCl (Ondansetron Hcl 4 Mg/2 Ml Vial) 4 mg IVPUSH Q8H PRN PRN Reason: Nausea and Vomiting Last Admin: 08/05/22 06:07 Dose: 4 mg Documented By: RUDY Pharmacy Consult (Consult Rx Perform Med Rec) 1 each MISCELLANE ONCE PRN PRN Reason: Consult order Quetiapine Fumarate (Quetiapine Fumarate 100 Mg Tablet) 100 mg PO BID [facility] Last Admin: 08/16/22 08:59 Dose: 100 mg Documented By: ELOY Sodium Chloride (0.9 % Sodium Chloride Flush 3 Ml Syringe) 3 ml IVFLUSH QSHIFT [facility] Last Admin: 08/16/22 09:03 Dose: Not Given Documented By: ELOY Non-Admin Reason: picc Thiamine HCl (Thiamine Hcl 100 Mg Tablet) 100 mg PO DAILY [facility] Last Admin: 08/16/22 08:59 Dose: 100 mg Documented By: ELOY Labs 08/05/22 06:50 08/16/22 05:37 Labs: Laboratory Results - last 24 hr 08/15/22 08/15/22 08/15/22 11:06 16:34 20:26 PT INR VBG pH VBG pCO2 VBG pO2 VBG HCO3 VBG O2 Saturation VBG Base Excess Estim Creat Clear Calc Estimated GFR POC Glucose 295 H 324 H 388 H* Troponin I High Sens B-Natriuretic Peptide Triglycerides Cholesterol LDL Cholesterol, Calc HDL Cholesterol 08/15/22 08/15/22 08/15/22 20:57 20:57 20:59 PT INR VBG pH 7.38 VBG pCO2 40 VBG pO2 43 VBG HCO3 24 VBG O2 Saturation 70.0 VBG Base Excess -0.9 Estim Creat Clear Calc Estimated GFR POC Glucose Troponin I High Sens < 3.5 B-Natriuretic Peptide 18 Triglycerides Cholesterol LDL Cholesterol, Calc HDL Cholesterol 08/15/22 08/16/22 08/16/22 21:20 05:37 07:37 PT 12.6 INR 1.1 VBG pH VBG pCO2 VBG pO2 VBG HCO3 VBG O2 Saturation VBG Base Excess Estim Creat Clear Calc 120.3 Estimated GFR > 60 POC Glucose 329 H Troponin I High Sens B-Natriuretic Peptide Triglycerides 115 Cholesterol 95 LDL Cholesterol, Calc 38 HDL Cholesterol 34 Assessment and Plan (1) Acute osteomyelitis of foot: Status: Acute Plan 52-year-old male with pertinent history of insulin-dependent diabetes mellitus, peripheral vascular disease, opiate use disorder on methadone, chronic hypoxemic respiratory failure on 2 L baseline oxygen due to COVID, essential hypertension, mood disorder, mixed hyperlipidemia who presents to the emergency department for concerns of foot infection. ?Bilateral lower extremity diabetic foot infection with cellulitis and nonhealing ulcers. He was treated for 6 weeks of Abx in [place] White cell scan suggest soft tissue infection and acute osteomylitis MRI also suggest soft tissue infection and osteo--see full report Presently on Cefepime,off Clinda and Vanco. ID recommends intermodal truck driver Abx, has a PICC line insulin-dependent diabetes mellitus with hyperglycemia:better. continue present regimen Alcohol use disorder: No withdrawal HTN--controlled, continue lisinopril, Norvasc Mood disorder:? 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 Patient states he uses 2 L baseline during ambulation Mixed hyperlipidemia: On statin Chronic normocytic anemia.? Hemoglobin above transfusion threshold boderline bp: Patient asymptomatic, possible due to bp meds , hold bp meds ,add ed LR. transient RUE weakness, negative CT of head,neck and declining MRI.. Has complete function and doubt stroke DVT prophylaxis:? Lovenox 40 mg daily need for inpatient:IV Abx for acute osteomylitis.awaiting placement Time Spent With Patient Time: Total time managing care of this patient today ____ minutes. Quality Stroke Does the patient have a stroke diagnosis?: No VTE Prior VTE?: No VTE Risk Level:: Medical - moderate - high VTE Device Contraindication: Treatment Not Indicated VTE Drug Contraindication: N/A - Med Ordered
[2022-08-16 11:30] LABS: Glucose, Whole Blood 235 mg/dL (60-115)
[2022-08-16 12:01] VITALS: BP 116/65; PULSE 71; RESP 18; TEMP 36.6; O2SAT 96
--- NOTE | 2022-08-16 15:07 | P.CNNE_ITS ---
History of Present Illness Data of Consult Service Date: 08/16/22 Primary Care Provider: [facility] HPI Reason for consult: Left upper extremity weakness This is a 52-year-old male with h/o This is insulin-dependent diabetes mellitus, peripheral vascular disease, opiate use disorder on methadone, chronic hypoxemic respiratory failure on 2 L baseline oxygen due to COVID 3 yrs ago, essential hypertension, mood disorder, mixed hyperlipidemia who is admitted for foot infection Osteomyelitis. I was asked to evaluate him because he had a transient episode while in the hospital he went to the bathroom without his oxygen and started to feel weak and dizzy and staggered back to bed and at that point he said that she had no use in his left upper extremity. The patient was evaluated during the nnight by the PA and I was told that he had a floppy left arm but 0/5 strength but no involvement of the speech face or leg which made it highly unlikely that it was a stroke. He did have a CT and CTA which did not show any occlusive disease. TPA was not considered. His symptoms have resolved in his arm is back to normal.No previous history of stroke or TIA. Review of Systems Review of Systems: no stroke symptoms Yes all other systems are reviewed and are negative Constitutional: Constitutional: Reports no additional constitutional complai nts, Reports chills, Reports fatigue and Reports fever(s) ENT: Reports Normal hearing present Cardiovascular: Cardiovascular: Reports no additional cardiovascular complaints, Denies chest pain, Denies chest pain at rest, Denies chest pain with activity and Denies pedal edema Respiratory: Respiratory: Reports no additional respiratory complaints and Denies cough Gastrointestinal: Gastrointestinal: Reports no additional gastrointestinal complaints and Denies abdominal pain Genitourinary: Genitourinary: Reports no additional male genitourinary complai nts Musculoskeletal: Musculoskeletal: Denies abnormal gait, Reports arthralgias, Denies muscle cramps and Denies radiating pain into limb Integumentary/Breasts: Skin/Breast: Denies skin ulcer and Denies wounds Neurologic: Reports Normal hearing present and Denies abnormal gait Psychiatric: Psychiatric: Reports no additional psychiatric complaints Endocrine: Endocrine: Reports fatigue PMFSH Past Medical History Medical History Compartment syndrome of left lower extremity Diabetes (~07/26/22) Diabetes type 2 with atherosclerosis of arteries of extremities HTN (hypertension) Opioid use disorder Post-COVID chronic dyspnea Ulcer of left foot Family History Family History Other No pertinent family history Family history: reviewed and not pertinent Surgical History Surgical History Status post transmetatarsal amputation of right foot Social History Social History Household Members: None Housing: Other Housing Other:: [facility]. Do you presently have visiting nurse or other home services: No Alcohol intake: former Patient Tobacco Use Status: Never used Tobacco e-Cigarette/Vaping Use: Never Used Second Hand Smoke Exposure: No Advance Directives Date on File: 05/19/22 service: No Current occupational status: disabled Meds Allergies Allergy/AdvReac Type Severity Reaction Status Date / Time prochlorperazine Allergy Intermediate Hives Verified 06/09/22 17:33 [From Compazine] aspirin [ASA] Allergy Unknown HIVES Verified 06/09/22 17:33 naproxen [From NAPROSYN] Allergy Unknown HIVES Verified 06/09/22 17:33 NSAIDS (Non-Steroidal Allergy Unknown HIVES Verified 06/09/22 17:33 Anti-Inflamma [NSAIDS (NON-STEROIDAL ANTI-INFLAMMA] Penicillins [PENICILLINS] Allergy Unknown HIVES Verified 06/09/22 17:33 Active Medications: Current Medications Acetaminophen (Acetaminophen 325 Mg Tablet) 975 mg PO TID [facility] Last Admin: 08/16/22 09:05 Dose: Not Given Amlodipine Besylate (Amlodipine Besylate 5 Mg Tablet) 5 mg PO DAILY [facility]; Protocol Last Admin: 08/15/22 07:36 Dose: 5 mg Atorvastatin Calcium (Atorvastatin Calcium 40 Mg Tablet) 40 mg PO BEDTIME [facility] Last Admin: 08/15/22 20:59 Dose: 40 mg Clonidine HCl (Clonidine Hcl 0.2 Mg Tablet) 0.2 mg PO TID ON [facility]; Protocol Last Admin: 08/15/22 15:29 Dose: 0.2 mg Clopidogrel Bisulfate (Clopidogrel Bisulfate 75 Mg Tablet) 75 mg PO DAILY [facility] Last Admin: 08/16/22 08:59 Dose: 75 mg Heparin Sodium (Porcine) 50 (units/ Sodium Chloride 5 ml) 0 units IVFLUSH [facility] Last Admin: 08/16/22 09:00 Dose: 50 unit Heparin Sodium (Porcine) 50 (units/ Sodium Chloride 5 ml) 0 units IVFLUSH [facility] Last Admin: 08/16/22 09:01 Dose: 50 unit Heparin Sodium (Porcine) 50 (units/ Sodium [facility]loride 5 ml) [facility] Last Admin: 08/16/22 09:02 Dose: 50 unit Dextrose (Dextrose 50 % 25 Gm/50 Ml Syringe) 25 gm IVPUSH Q15M PRN; Protocol PRN Reason: per Hypoglycemia Standing Ord. Enoxaparin Sodium (Enoxaparin Sodium 40 Mg/0.4 Ml Syringe) 40 mg SUBCUT Q24H [facility] Last Admin: 08/16/22 12:10 Dose: Not Given Gabapentin (Gabapentin 400 Mg Capsule) 800 mg PO TID [facility] Last Admin: 08/16/22 08:59 Dose: 800 mg Glucose (Glucose Gel 15 Gm Gel..Gram.) 15 gm PO Q15M PRN; Protocol PRN Reason: per Hypoglycemia Standing Ord. Dextrose (D10) 250 mls @ 750 mls/hr IV Q15M PRN; Protocol PRN Reason: per Hypoglycemia Standing Ord. Lactated Ringer's (Lr) 1,000 mls @ 100 mls/hr IVCONT .Q10H ON [facility] OF [facility] Last Admin: 08/16/22 02:21 Dose: 100 mls/hr Insulin Glargine (Insulin Glargine,Hum.Rec.Anlog 100 Unit/Ml 10 Ml Vial) 50 unit SUBCUT BEDTIME ON [facility] Last Admin: 08/15/22 20:57 Dose: 50 unit Insulin Human Lispro (Insulin Lispro 100 Unit/Ml 3 Ml Vial) 10 unit SUBCUT TID@0730,1130,1630 [facility] Last Admin: 08/16/22 12:08 Dose: 10 unit Insulin Human Lispro (Insulin Lispro 100 Unit/Ml 3 Ml Vial) 0 unit SUBCUT QIDACHS ON [facility]; Protocol Last Admin: 08/16/22 12:07 Dose: 4 unit Lisinopril (Lisinopril 20 Mg Tablet) 20 mg PO DAILY [facility]; Protocol Last Admin: 08/15/22 07:36 Dose: 20 mg Melatonin (Melatonin 3 Mg Tablet) 6 mg PO BEDTIME PRN PRN Reason: Insomnia Last Admin: 08/11/22 20:05 Dose: 6 mg Methadone HCl (Methadone Hcl 20 Mg/2 Ml Oral.Conc) 120 mg PO DAILY [facility] Last Admin: 08/16/22 09:04 Dose: 120 mg Ondansetron HCl (Ondansetron Hcl 4 Mg/2 Ml Vial) 4 mg IVPUSH Q8H PRN PRN Reason: Nausea and Vomiting Last Admin: 08/05/22 06:07 Dose: 4 mg Pharmacy Consult (Consult Rx Perform Med Rec) 1 each MISCELLANE ONCE PRN PRN Reason: Consult order Quetiapine Fumarate (Quetiapine Fumarate 100 Mg Tablet) 100 mg PO BID [facility] Last Admin: 08/16/22 08:59 Dose: 100 mg Sodium Chloride (0.9 % Sodium Chloride Flush 3 Ml Syringe) 3 ml IVFLUSH QSHIFT ON [facility] Last Admin: 08/16/22 09:03 Dose: Not Given Thiamine HCl (Thiamine Hcl 100 Mg Tablet) 100 mg PO DAILY [facility] Last Admin: 08/16/22 08:59 Dose: 100 mg Home Medications Medication Instructions Recorded Confirmed Last Taken Type methadone 10 mg/mL oral 122 mg PO DAILY 04/25/22 08/05/22 08/04/22 History concentrate (Methadone Intensol) quetiapine 100 mg tablet 1 tab PO BID 08/05/22 08/05/22 Unknown History Physical Exam Vital Signs: Vital Signs: Last Vital Signs Temp 97.8 F 08/16/22 12:01 Pulse 71 08/16/22 12:01 Resp 18 08/16/22 12:01 BP 116/65 08/16/22 12:01 Pulse Ox 96 08/16/22 12:01 O2 Del Method 08/16/22 12:01 O2 Flow Rate 2 08/16/22 12:01 BMI result Body Mass Index 31.7 Const: Other: ? Middle-aged male lying in bed in no distress Neck supple, no JVD Regular rate and rhythm, S1-S2 heard Regular breath sounds bilaterally, no wheezing or crackles appreciated Abdomen soft nontender, no guarding, no rigidity Patient is awake, alert and oriented to self, place, time and person ; no focal motor deficit Musculoskeletal:? Bilateral lower extremity with ulcers noted Neuro: No focal deficit General: cooperative, healthy appearing and comfortable Orientation/consciousness: oriented to person, oriented to place and oriented to time HEENT: Head: Yes normal to inspection Face and sinus: Yes normal facial exam Mouth: Normal oral and palatal mucosa present Teeth and gingiva: dentition normal Eyes: General: appearance normal, both eyes and all related structures Pupils: Equal, round and reactive pupils present Neck: Neck: Yes normal visual inspection Carotids: no bruits Chest: Chest palpation & inspection: normal inspection of the chest Resp: Effort & Inspection: normal respiratory effort and able to speak in complete sentences Auscultation: clear to auscultation bilaterally, no crackles, no rales, no rhonchi and no wheezes Cardio: Rate: regular rate Rhythm: regular rhythm Heart sounds: S1 normal heart sound present and S2 normal heart sound present Bruits: no carotid bruits Peripheral pulses: Peripheral pulses 2+ throughout GI: Inspection: Yes normal to inspection Palpation (GI): Soft to palpation and nontender : General: Yes no CVA tenderness Back/Spine/Pelvis: Back: no CVA tenderness Skin: Other: Right foot transmetatarsal amputation plantar ulcer with significant serous drainage.; left foot medial and lateral ulcer both good granulation base is no exposed bone no fluctuant areas. Wounds were irrigated clean. They were redressed. General skin exam: no rashes or lesions noted Wounds: no wounds Hair: normal Neuro: Other: Normal nonfocal neurological examination General: oriented to person, oriented to place, oriented to time and moves all extremities Cranial nerves: Yes CN's II-XII intact bilaterally, Yes Equal, round and reactive pupils present and Yes Normal hearing present Cognition (Neuro): normal cognition Motor exam (neuro): 5/5 motor strength present throughout Doll's-Eye Reflex: Absent Extrem: Other: venous exam: No significant superficial varicosities or spider telangiectasias, minimal edema General: No clubbing, No cyanosis and No edema Psych: Appearance: grossly normal Mental Status: mental status grossly normal Speech and movement: Normal speech and movement present Results Labs 08/05/22 06:50 08/16/22 05:37 Labs: BMP 08/16/22 05:37 Creatinine 0.92 Microbiology Microbiology Results: Microbiology 08/05/22 03:21 Blood - Venous Blood Culture - Final No growth after 5 days. 08/05/22 03:21 Blood - Venous Blood Culture - Final No growth after 5 days. Assessment and Plan (1) Dizziness: Status: Acute Probably from low blood pressure and desaturation. The transient left upper extremity weakness could have been a conversion reaction because it was highly atypical and resolved completely. In any case, his CT and CTA do not show up any occlusive disease. No further neurological intervention is necessary. (2) Acute osteomyelitis of foot: Status: Acute Plan 52-year-old male with pertinent history of insulin-dependent diabetes mellitus, peripheral vascular disease, opiate use disorder on methadone, chronic hypoxemic respiratory failure on 2 L baseline oxygen due to COVID, essential hypertension, mood disorder, mixed hyperlipidemia who presents to the emergency department for concerns of foot infection. ?Bilateral lower extremity diabetic foot infection with cellulitis and nonhealing ulcers. He was treated for 6 weeks of Abx in [place] White cell scan suggest soft tissue infection and acute osteomylitis MRI also suggest soft tissue infection and osteo--see full report Presently on Cefepime,off Clinda and Vanco. ID recommends jail Abx, has a PICC line insulin-dependent diabetes mellitus with hyperglycemia:better. continue present regimen Alcohol use disorder: No withdrawal HTN--controlled, continue lisinopril, Norvasc Mood disorder:? 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 Patient states he uses 2 L baseline during ambulation Mixed hyperlipidemia: On statin Chronic normocytic anemia.? Hemoglobin above transfusion threshold boderline bp: Patient asymptomatic, possible due to bp meds , hold bp meds ,add ed LR. transient RUE weakness, negative CT of head,neck and declining MRI.. Has complete function and doubt stroke DVT prophylaxis:? Lovenox 40 mg daily need for inpatient:IV Abx for acute osteomylitis.awaiting placement Time Spent With Patient Time: Total time managing care of this patient today ____ minutes. Procedures Date of Service Date of Service: 08/16/22
[2022-08-16 16:00] VITALS: BP 127/68; PULSE 74; RESP 18; TEMP 36.4; O2SAT 99
[2022-08-16 16:28] LABS: Glucose, Whole Blood 242 mg/dL (60-115)
[2022-08-16 20:00] VITALS: BP 129/62; PULSE 66; RESP 16; TEMP 36.7; O2SAT 96
[2022-08-16 20:20] LABS: Glucose, Whole Blood 294 mg/dL (60-115)
[2022-08-16] MEDS: Acetaminophen 325 MG TABLET 975 MG PO (20:41)
[2022-08-16] MEDS: Atorvastatin Calcium 40 MG TABLET PO (20:43)
[2022-08-16] MEDS: Insulin Glargine,Hum.rec.anlog 100 UNIT/ML 10 ML VIAL 50 UNIT SUBCUT (20:45)
[2022-08-17] MEDS: Heparin Sodium,Porcine Flush 50 UNITS, 0.9 % Sodium Chloride Flush 5 ML IVFLUSH ×12 (00:11→23:34)
[2022-08-17] MEDS: Lactated Ringers 1,000 ML 100 ML IVCONT (06:01)
[2022-08-17 06:41] LABS: Creatinine Clr Calc Pharmacy 153.7; Estimated Glomerular Filt Rate > 60
[2022-08-17 07:55] LABS: Glucose, Whole Blood 210 mg/dL (60-115)
[2022-08-17 07:56] VITALS: BP 136/72; PULSE 68; RESP 18; TEMP 36.4; O2SAT 96
[2022-08-17] MEDS: 0.9 % Sodium Chloride Flush 3 ML SYRINGE IVFLUSH (08:24)
[2022-08-17] MEDS: methADONE HCl 20 MG/2 ML ORAL.CONC 120 MG PO (08:24)
[2022-08-17] MEDS: clonazePAM 1 MG TABLET 2 MG PO ×2 (08:25→20:00)
[2022-08-17] MEDS: Insulin Lispro 100 UNIT/ML 3 ML VIAL 10 UNIT SUBCUT ×3 (08:25→16:30)
[2022-08-17] MEDS: Acetaminophen 325 MG TABLET 975 MG PO ×2 (08:25→19:59)
[2022-08-17] MEDS: Clopidogrel Bisulfate 75 MG TABLET PO (08:25)
[2022-08-17] MEDS: QUEtiapine Fumarate 100 MG TABLET PO ×2 (08:26→20:00)
[2022-08-17] MEDS: Gabapentin 400 MG CAPSULE 800 MG PO ×3 (08:26→20:00)
[2022-08-17] MEDS: Thiamine HCL 100 MG TABLET PO (08:26)
[2022-08-17] MEDS: Insulin Lispro 100 UNIT/ML 3 ML VIAL SUBCUT ×3 (08:27→20:00)
--- NOTE | 2022-08-17 08:53 | HO.PM.IMPN ---
Subjective Subjective Date of Service: 08/17/22 Interval History: f/u on osteo of foot no issues overnight Review of Systems no stroke symptoms Physical Exam Vital Signs: Vital Signs: Last Vital Signs Temp 97.6 F 08/17/22 07:56 Pulse 68 08/17/22 07:56 Resp 18 08/17/22 07:56 BP 136/72 08/17/22 07:56 Pulse Ox 96 08/17/22 07:56 O2 Del Method 08/17/22 07:56 O2 Flow Rate 2 08/17/22 07:56 BMI result Body Mass Index 31.7 Const: Other: ? Middle-aged male lying in bed in no distress Neck supple, no JVD Regular rate and rhythm, S1-S2 heard Regular breath sounds bilaterally, no wheezing or crackles appreciated Abdomen soft nontender, no guarding, no rigidity Patient is awake, alert and oriented to self, place, time and person ; no focal motor deficit Musculoskeletal:? Bilateral lower extremity with ulcers noted Neuro: No focal deficit Objective Data Active Medications Acetaminophen (Acetaminophen 325 Mg Tablet) 975 mg PO TID [facility] Last Admin: 08/17/22 08:25 Dose: 975 mg Documented By: ANGELICA Amlodipine Besylate (Amlodipine Besylate 5 Mg Tablet) 5 mg PO DAILY [facility]; Protocol Last Admin: 08/15/22 07:36 Dose: 5 mg Documented By: ELOY Atorvastatin Calcium (Atorvastatin Calcium 40 Mg Tablet) 40 mg PO BEDTIME [facility] Last Admin: 08/16/22 20:43 Dose: 40 mg Documented By: WENDI Clonazepam (Clonazepam 1 Mg Tablet) 2 mg PO BID [facility] Last Admin: 08/17/22 08:25 Dose: 2 mg Documented By: ANGELICA Clonidine HCl (Clonidine Hcl 0.2 Mg Tablet) 0.2 mg PO TID [facility]; Protocol Last Admin: 08/15/22 15:29 Dose: 0.2 mg Documented By: ELOY Clopidogrel Bisulfate (Clopidogrel Bisulfate 75 Mg Tablet) 75 mg PO DAILY [facility] Last Admin: 08/17/22 08:25 Dose: 75 mg Documented By: ANGELICA Heparin Sodium (Porcine) 50 (units/ Sodium Chloride 5 ml) 0 units IVFLUSH QSHIFT [facility] Last Admin: 08/17/22 08:23 Dose: 5 unit Documented By: ANGELICA Heparin Sodium (Porcine) 50 (units/ Sodium Chloride 5 ml) 0 units IVFLUSH [facility] Last Admin: 08/17/22 08:27 Dose: 5 unit Documented By: JAMELAL Heparin Sodium (Porcine) 50 (units/ Sodium Chloride 5 ml) 0 units IVFLUSH [facility] Last Admin: 08/17/22 08:28 Dose: 5 unit Documented By: ANGELICA Dextrose (Dextrose 50 % 25 Gm/50 Ml Syringe) 25 gm IVPUSH Q15M PRN; Protocol PRN Reason: per Hypoglycemia Standing Ord. Enoxaparin Sodium (Enoxaparin Sodium 40 Mg/0.4 Ml Syringe) 40 mg SUBCUT Q24H [facility] Last Admin: 08/16/22 12:10 Dose: Not Given Documented By: ELOY Non-Admin Reason: Patient Refused Gabapentin (Gabapentin 400 Mg Capsule) 800 mg PO TID [facility] Last Admin: 08/17/22 08:26 Dose: 800 mg Documented By: ANGELICA Glucose (Glucose Gel 15 Gm Gel..Gram.) 15 gm PO Q15M PRN; Protocol PRN Reason: per Hypoglycemia Standing Ord. Dextrose (D10) 250 mls @ 750 mls/hr IV Q15M PRN; Protocol PRN Reason: per Hypoglycemia Standing Ord. Lactated Ringer's (Lr) 1,000 mls @ 100 mls/hr IVCONT .Q10H [facility] Last Admin: 08/17/22 06:01 Dose: 100 mls/hr Documented By: WENDI Insulin Glargine (Insulin Glargine,Hum.Rec.Anlog 100 Unit/Ml 10 Ml Vial) 50 unit SUBCUT BEDTIME [facility] Last Admin: 08/16/22 20:45 Dose: 50 unit Documented By: WENDI Insulin Human Lispro (Insulin Lispro 100 Unit/Ml 3 Ml Vial) 10 unit SUBCUT TID@0730,1130,1630 [facility] Last Admin: 08/17/22 08:25 Dose: 10 unit Documented By: ANGELICA Insulin Human Lispro (Insulin Lispro 100 Unit/Ml 3 Ml Vial) 0 unit SUBCUT QIDACHS [facility]; Protocol Last Admin: 08/17/22 08:27 Dose: 4 unit Documented By: ANGELICA Lisinopril (Lisinopril 20 Mg Tablet) 20 mg PO DAILY [facility]; Protocol Last Admin: 08/15/22 07:36 Dose: 20 mg Documented By: ELOY Melatonin (Melatonin 3 Mg Tablet) 6 mg PO BEDTIME PRN PRN Reason: Insomnia Last Admin: 08/11/22 20:05 Dose: 6 mg Documented By: CHADD Methadone HCl (Methadone Hcl 20 Mg/2 Ml Oral.Conc) 120 mg PO DAILY [facility] Last Admin: 08/17/22 08:24 Dose: 120 mg Documented By: ANGELICA Ondansetron HCl (Ondansetron Hcl 4 Mg/2 Ml Vial) 4 mg IVPUSH Q8H PRN PRN Reason: Nausea and Vomiting Last Admin: 08/05/22 06:07 Dose: 4 mg Documented By: RUDY Pharmacy Consult (Consult Rx Perform Med Rec) 1 each MISCELLANE ONCE PRN PRN Reason: Consult order Quetiapine Fumarate (Quetiapine Fumarate 100 Mg Tablet) 100 mg PO BID [facility] Last Admin: 08/17/22 08:26 Dose: 100 mg Documented By: ANGELICA Sodium Chloride (0.9 % Sodium Chloride Flush 3 Ml Syringe) 3 ml IVFLUSH QSHIFT [facility] Last Admin: 08/17/22 08:24 Dose: 3 ml Documented By: ANGELICA Thiamine HCl (Thiamine Hcl 100 Mg Tablet) 100 mg PO DAILY [facility] Last Admin: 08/17/22 08:26 Dose: 100 mg Documented By: ANGELICA Labs 08/05/22 06:50 08/17/22 05:04 Labs: Laboratory Results - last 24 hr 08/16/22 08/16/22 08/16/22 11:18 16:16 20:14 Estim Creat Clear Calc Estimated GFR POC Glucose 235 H 242 H 294 H 08/17/22 08/17/22 05:04 07:45 Estim Creat Clear Calc 153.7 Estimated GFR > 60 POC Glucose 210 H Assessment and Plan (1) Acute osteomyelitis of foot: Status: Acute Plan 52-year-old male with pertinent history of insulin-dependent diabetes mellitus, peripheral vascular disease, opiate use disorder on methadone, chronic hypoxemic respiratory failure on 2 L baseline oxygen due to COVID, essential hypertension, mood disorder, mixed hyperlipidemia who presents to the emergency department for concerns of foot infection. Bilateral lower extremity diabetic foot infection with cellulitis and nonhealing ulcers. He was treated for 6 weeks of Abx in [place] White cell scan suggest soft tissue infection and acute osteomylitis MRI also suggest soft tissue infection and osteo--see full report Presently on Cefepime,off Clinda and Vanco. 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 continue present regimen He is saying he doesn't want to go to any rehab Alcohol use disorder: No withdrawal HTN--controlled, continue lisinopril, Norvasc Mood disorder:? 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 Patient states he uses 2 L baseline during ambulation Mixed hyperlipidemia: On statin Chronic normocytic anemia.? Hemoglobin above transfusion threshold boderline bp: Patient asymptomatic, possible due to bp meds , hold bp meds ,add ed LR. transient RUE weakness, negative CT of head,neck and declining MRI.. Has complete function and doubt stroke DVT prophylaxis:? Lovenox 40 mg daily need for inpatient:IV Abx for acute osteomylitis.awaiting placement, will discuss with CM about alternate placement since he does not want to go to rehab Time Spent With Patient Time: Total time managing care of this patient today ____ minutes. Quality Stroke Does the patient have a stroke diagnosis?: No VTE Prior VTE?: No VTE Risk Level:: Medical - moderate - high VTE Device Contraindication: Treatment Not Indicated VTE Drug Contraindication: N/A - Med Ordered
[2022-08-17 11:43] LABS: Glucose, Whole Blood 147 mg/dL (60-115)
--- NOTE | 2022-08-17 12:08 | MHC.CM.PN ---
pt does not want to go to a rehab he wants to go home,pt does not hve a pcp so is not eligible for a vnapt would go home on oral antibiotics ..?wound clinic
[2022-08-17 14:53] VITALS: BP 146/85; PULSE 78; RESP 17; TEMP 36.9; O2SAT 98
--- NOTE | 2022-08-17 15:37 | MHC.CM.PN ---
spoke with dr ramos he will dc pt tomorrow on oral antibiotics with an order forthe wound clinic pt will need [facility]
[2022-08-17 16:30] LABS: Glucose, Whole Blood 211 mg/dL (60-115)
[2022-08-17 19:20] VITALS: BP 142/75; PULSE 72; RESP 18; TEMP 36.9; O2SAT 93
[2022-08-17] MEDS: Insulin Glargine,Hum.rec.anlog 100 UNIT/ML 10 ML VIAL 50 UNIT SUBCUT (20:00)
[2022-08-17] MEDS: Atorvastatin Calcium 40 MG TABLET PO (20:00)
[2022-08-17 20:29] LABS: Glucose, Whole Blood 202 mg/dL (60-115)
[2022-08-18] VITALS: BP 131/70; PULSE 78; RESP 16; TEMP 35.8; O2SAT 98
[2022-08-18 04:37] VITALS: BP 166/79; PULSE 70; RESP 16; TEMP 36.3; O2SAT 99
[2022-08-18 07:00] LABS: Estimated Glomerular Filt Rate > 60
[2022-08-18 07:53] LABS: Glucose, Whole Blood 214 mg/dL (60-115)
[2022-08-18 08:00] VITALS: BP 153/82; PULSE 78; RESP 18; TEMP 37; O2SAT 100
[2022-08-18] MEDS: Insulin Lispro 100 UNIT/ML 3 ML VIAL SUBCUT ×3 (08:37→21:16)
[2022-08-18] MEDS: Gabapentin 400 MG CAPSULE 800 MG PO ×3 (08:37→21:17)
[2022-08-18] MEDS: Acetaminophen 325 MG TABLET 975 MG PO ×2 (08:37→21:21)
[2022-08-18] MEDS: Thiamine HCL 100 MG TABLET PO (08:37)
[2022-08-18] MEDS: QUEtiapine Fumarate 100 MG TABLET PO ×2 (08:37→21:17)
[2022-08-18] MEDS: methADONE HCl 20 MG/2 ML ORAL.CONC 120 MG PO (08:37)
[2022-08-18] MEDS: clonazePAM 1 MG TABLET 2 MG PO ×2 (08:37→21:17)
[2022-08-18] MEDS: Clopidogrel Bisulfate 75 MG TABLET PO (08:37)
[2022-08-18] MEDS: Insulin Lispro 100 UNIT/ML 3 ML VIAL 10 UNIT SUBCUT ×3 (08:38→16:38)
[2022-08-18] MEDS: Heparin Sodium,Porcine Flush 50 UNITS, 0.9 % Sodium Chloride Flush 5 ML IVFLUSH ×6 (08:38→16:37)
[2022-08-18] MEDS: 0.9 % Sodium Chloride Flush 3 ML SYRINGE IVFLUSH (08:39)
--- NOTE | 2022-08-18 09:08 | PM.DS ---
DS: Providers Provider Date of Service: 08/19/22 Date of admission: 08/05/22 04:34 Primary care physician: [facility] Consults: 08/05/22 04:41 Consult to Infectious Diseases Routine Consulting Provider: Nina Stone Reason for consultation: diabetic foot infection Consult to Vascular Surgery Routine Consulting Provider: Michael Goldman Reason for consultation: diabetic foot infection 08/05/22 05:11 Consult to Care Team Routine Comment: Reason for consultation: Alcohol use disorder 08/15/22 21:27 Consult to Neurology Stat Consulting Provider: [facility] Reason for consultation: stroke Has provider been notified: Yes DS: Diagnosis Discharge Diagnosis (1) Acute osteomyelitis of foot: Status: Acute DS: Summary Hospital Course Hospital Course: Chief Complaint: Foot wound This is a 52-year-old male with pertinent history of insulin-dependent diabetes mellitus, peripheral vascular disease, opiate use disorder on methadone, chronic hypoxemic respiratory failure on 2 L baseline oxygen due to COVID, essential hypertension, mood disorder, mixed hyperlipidemia who presents to the emergency department for concerns of foot infection.? Patient was seen in the ER on 07/26 and discharged on p.o. antibiotics for concerns of infection of diabetic foot ulcers.? Patient states he took his p.o. antibiotics but he continued to have purulent drainage from his ulcers, redness, swelling and pain.? Also admits intermittent fevers and chills.? Patient states he ran out of dressing so he was trying to cover his also with toilet paper.? He denies chest discomfort, palpitations, shortness of breath, abdominal pain, changes in urinary or bowel habits.? Patient states he had been drinking alcohol all day to relieve his pain from foot ulcers.? Never had alcohol withdrawal Hospital course: [address] [address] Hospitalist - Progress Note Signed Patient: Jamar Stephens MR#: [id number] : 1970 Acct:[id number] Age/Sex: 52 / M Loc: HO.S3 [id number] ?? ? Attending Dr: Luis Alberto MD cc: ~ Subjective Subjective Date of Service: 08/17/22 Interval History: f/u on osteo of foot no issues overnight Review of Systems no stroke symptoms Physical Exam Vital Signs:?? Vital Signs: Last Vital Signs Temp ? 97.6 F? 08/17/22 07:56 Pulse? 68? 08/17/22 07:56 Resp ? 18? 08/17/22 07:56 BP ? 136/72? 08/17/22 07:56 Pulse Ox ? 96? 08/17/22 07:56 O2 Del Method? 08/17/22 07:56 O2 Flow Rate ? 2 ? 08/17/22 07:56 BMI result Body Mass Index ? 31.7? Const:?? Other: ? Middle-aged male lying in bed in no distress Neck supple, no JVD Regular rate and rhythm, S1-S2 heard Regular breath sounds bilaterally, no wheezing or crackles appreciated Abdomen soft nontender, no guarding, no rigidity Patient is awake, alert and oriented to self, place, time and person ; no focal motor deficit Musculoskeletal:? Bilateral lower extremity with ulcers noted Neuro: No focal deficit Objective Data Active Medications Acetaminophen (Acetaminophen 325 Mg Tablet)? 975 mg PO TID [facility] Last Admin: 08/17/22 08:25? Dose: 975 mg Documented By: ANGELICA Amlodipine Besylate (Amlodipine Besylate 5 Mg Tablet)? 5 mg PO DAILY [facility]; Protocol Last Admin: 08/15/22 07:36? Dose: 5 mg Documented By: ELOY Atorvastatin Calcium (Atorvastatin Calcium 40 Mg Tablet)? 40 mg PO BEDTIME [facility] Last Admin: 08/16/22 20:43? Dose: 40 mg Documented By: WENDI Clonazepam (Clonazepam 1 Mg Tablet)? 2 mg PO BID [facility] Last Admin: 08/17/22 08:25? Dose: 2 mg Documented By: ANGELICA Clonidine HCl (Clonidine Hcl 0.2 Mg Tablet)? 0.2 mg PO TID [facility]; Protocol Last Admin: 08/15/22 15:29? Dose: 0.2 mg Documented By: ELOY Clopidogrel Bisulfate (Clopidogrel Bisulfate 75 Mg Tablet)? 75 mg PO DAILY [facility] Last Admin: 08/17/22 08:25? Dose: 75 mg Documented By: ANGELICA Heparin Sodium (Porcine) 50 (units/ Sodium Chloride 5 ml)? 0 units IVFLUSH [facility] Last Admin: 08/17/22 08:23? Dose: 5 unit Documented By: ANGELICA Heparin Sodium (Porcine) 50 (units/ Sodium Chloride 5 ml)? 0 units IVFLUSH [facility] Last Admin: 08/17/22 08:27? Dose: 5 unit Documented By: ANGELICA Heparin Sodium (Porcine) 50 (units/ Sodium Chloride 5 ml)? 0 units [facility] Last Admin: 08/17/22 08:28? Dose: 5 unit Documented By: ANGELICA Dextrose (Dextrose 50 % 25 Gm/50 Ml Syringe)? 25 gm IVPUSH Q15M PRN; Protocol PRN Reason: per Hypoglycemia Standing Ord. Enoxaparin Sodium (Enoxaparin Sodium 40 Mg/0.4 Ml Syringe)? 40 mg SUBCUT Q24H [facility] Last Admin: 08/16/22 12:10 Dose:? Not Given Documented By: ELOY Non-Admin Reason: Patient Refused Gabapentin (Gabapentin 400 Mg Capsule)? 800 mg PO TID [facility] Last Admin: 08/17/22 08:26? Dose: 800 mg Documented By: ANGELICA Glucose (Glucose Gel 15 Gm Gel..Gram.)? 15 gm PO Q15M PRN; Protocol PRN Reason: per Hypoglycemia Standing Ord. Dextrose (D10)? 250 mls @ 750 mls/hr IV Q15M PRN; Protocol PRN Reason: per Hypoglycemia Standing Ord. Lactated Ringer's (Lr)? 1,000 mls @ 100 mls/hr IVCONT .Q10H [facility] Last Admin: 08/17/22 06:01? Dose: 100 mls/hr Documented By: WENDI Insulin Glargine (Insulin Glargine,Hum.Rec.Anlog 100 Unit/Ml 10 Ml Vial)? 50 unit SUBCUT BEDTIME [facility] Last Admin: 08/16/22 20:45? Dose: 50 unit Documented By: WENDI Insulin Human Lispro (Insulin Lispro 100 Unit/Ml 3 Ml Vial)? 10 unit SUBCUT TID@0730,1130,1630 [facility] Last Admin: 08/17/22 08:25? Dose: 10 unit Documented By: ANGELICA Insulin Human Lispro (Insulin Lispro 100 Unit/Ml 3 Ml Vial)? 0 unit SUBCUT QIDACHS [facility]; Protocol Last Admin: 08/17/22 08:27? Dose: 4 unit Documented By: ANGELICA Lisinopril (Lisinopril 20 Mg Tablet)? 20 mg PO DAILY [facility]; Protocol Last Admin: 08/15/22 07:36? Dose: 20 mg Documented By: ELOY Melatonin (Melatonin 3 Mg Tablet)? 6 mg PO BEDTIME PRN PRN Reason: Insomnia Last Admin: 08/11/22 20:05? Dose: 6 mg Documented By: CHADD Methadone HCl (Methadone Hcl 20 Mg/2 Ml Oral.Conc)? 120 mg PO DAILY [facility] Last Admin: 08/17/22 08:24? Dose: 120 mg Documented By: ANGELICA Ondansetron HCl (Ondansetron Hcl 4 Mg/2 Ml Vial)? 4 mg IVPUSH Q8H PRN PRN Reason: Nausea and Vomiting Last Admin: 08/05/22 06:07? Dose: 4 mg Documented By: RUDY Pharmacy Consult (Consult Rx Perform Med Rec)? 1 each MISCELLANE ONCE PRN PRN Reason: Consult order Quetiapine Fumarate (Quetiapine Fumarate 100 Mg Tablet)? 100 mg PO BID [facility] Last Admin: 08/17/22 08:26? Dose: 100 mg Documented By: ANGELICA Sodium Chloride (0.9 % Sodium Chloride Flush 3 Ml Syringe)? 3 ml IVFLUSH QSHIFT [facility] Last Admin: 08/17/22 08:24? Dose: 3 ml Documented By: ANGELICA Thiamine HCl (Thiamine Hcl 100 Mg Tablet)? 100 mg PO DAILY [facility] Last Admin: 08/17/22 08:26? Dose: 100 mg Documented By: ANGELICA Labs 08/05/22 06:50? 08/17/22 05:04? Labs: Laboratory Results - last 24 hr ? 08/16/22 08/16/22 08/16/22 ? 11:18 16:16 20:14 Estim Creat Clear Calc ? ? ? Estimated GFR ? ? ? POC Glucose ?235 H ?242 H ?294 H ? 08/17/22 08/17/22 ? 05:04 07:45 Estim Creat Clear Calc ?153.7 ? Estimated GFR ?> 60 ? POC Glucose ? ?210 H Assessment and Plan (1) Acute osteomyelitis of foot: ?Status:?Acute Plan He presented with recurrent bilateral lower extremity diabetic foot infection with cellulitis and nonhealing ulcers. He was treated for 6 weeks of Abx in Jun. On this occasion work up included White cell scan that suggests soft tissue infection and acute osteomylitis, MRI also suggest soft tissue infection and osteo. He was seen by Dr. Goldman (vascular surgeon) with the following recommendation: Noninvasive arterial testing is within normal limits without JANICE on the right of 1.14 and on the left of 1.11.? I do recommend follow-up with [facility] has he has already established care there in the past.? We did discuss the importance of offloading.? No vascular interventions are required.? Should this persist I did reiterate that he is a once again at risk of an amputation. He was treated with Initially with Vancomycin and Clindamyci and Cefepime and ultimately was left on Cefepime alone once cultures were negative. ID recommended longter IV antibiotics which could only be done at a facility, but in the end he refused to go to rehab following multiple conversations with him and with the understanding that PO medications are not the best options, even with that he continued to refuse and rather chose to go home and he was advised to to wound clinic. A PICC line which was planned was not done Alcohol use disorder: No withdrawal HTN--controlled, continue lisinopril, Norvasc ?Mood disorder:? 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 Patient states he uses 2 L baseline during ambulation ?Mixed hyperlipidemia: On statin ?Chronic normocytic anemia.? Hemoglobin above transfusion threshold ? HTN continue meds transient RUE weakness, negative CT of head,neck and he declined MRI.. Has complete function. He was seen by Neuro with no further recommendation Time Spent with Patient Time attestation: Total time managing care of this patient today ____ minutes. Discharge coordination time: Greater than 30 minutes Quality: Safe Use of Opioids Does Pt have an Active Cancer Diagnosis on the Problem List?: No Quality: Stroke Does the patient have a stroke diagnosis?: No Physical Exam Vital Signs: Vital Signs: Last Vital Signs Temp 98.6 F 08/18/22 08:00 Pulse 78 08/18/22 08:00 Resp 18 08/18/22 08:00 BP 153/82 H 08/18/22 08:00 Pulse Ox 100 08/18/22 08:00 O2 Del Method 08/18/22 08:00 O2 Flow Rate 2 08/18/22 08:00 BMI result Body Mass Index 31.7 Const: Other: ? Middle-aged male lying in bed in no distress Neck supple, no JVD Regular rate and rhythm, S1-S2 heard Regular breath sounds bilaterally, no wheezing or crackles appreciated Abdomen soft nontender, no guarding, no rigidity Patient is awake, alert and oriented to self, place, time and person ; no focal motor deficit Musculoskeletal:? Bilateral lower extremity with ulcers noted Neuro: No focal deficit DS: Data Data Completed and Pending Completed studies during hospitalization [Text1]: Procedures Excision of Left Foot Skin, External Approach (04/25/22) Excision of Left Foot Subcutaneous Tissue and Fascia, Open Approach (04/25/22) Insertion of Infusion Device into Superior Vena Cava, Percutaneous Approach (05/25/22) Ultrasonography of Superior Vena Cava, Guidance (05/25/22) Labs on day of discharge: Laboratory Results - last 24 hr 08/17/22 08/17/22 08/17/22 11:31 16:17 19:25 Creatinine Estim Creat Clear Calc Estimated GFR POC Glucose 147 H 211 H 202 H 08/18/22 08/18/22 04:59 07:26 Creatinine 0.82 Estim Creat Clear Calc 135.0 Estimated GFR > 60 POC Glucose 214 H Discharge Plan Discharge Anticipated Discharge Date/Time: 08/18/22 09:09 Patient Disposition: Home, Self-Care Discharge Diagnosis: Osteomylitis, diabetic foot ulcer Referrals: [facility] [Primary Care Provider] - 1 Week Discharge Medications: Continued atorvastatin 40 mg tablet 1 tab PO BEDTIME Qty: 30 0RF gabapentin 600 mg tablet 1 tab PO TID Qty: 21 0RF amlodipine 5 mg Tablet 5 mg PO DAILY Qty: 30 0RF Protocol: Hold for SBP< HOLD for SBP < : 90 (DME) blood-glucose meter [FreeStyle Flash System] Kit See Rx Instructions .Route Qty: 1 0RF Rx Instructions: As directed insulin lispro 100 unit/mL insulin pen 10 unit subcut TID Qty: 15 0RF insulin glargine [Lantus Solostar U-100 Insulin] 100 unit/mL (3 mL) insulin pen 60 unit subcut QPM Qty: 15 0RF clonazepam [Klonopin] 2 mg tablet 2 mg PO BID 5 Days Qty: 10 0RF clonidine HCl 0.2 mg tablet 0.2 mg PO TID 30 Days Qty: 90 0RF lisinopril 20 mg tablet 20 mg PO DAILY 30 Days Qty: 30 0RF (DME) free style lite glucometer See Rx Instructions .Route .MEDSUPPLY Qty: 1 0RF Rx Instructions: As directed (DME) free style lite test strips See Rx Instructions .Route .MEDSUPPLY Qty: 1 0RF Rx Instructions: As directed (DME) lancets See Rx Instructions .Route .MEDSUPPLY Qty: 1 0RF Rx Instructions: As directed methadone [Methadone Intensol] 10 mg/mL Concentrate 122 mg PO DAILY quetiapine 100 mg tablet 1 tab PO BID Diet: Diabetic diet Activity on Discharge: As tolerated Stand Alone Forms: Patient Portal Discharge page Care Plan Goals: resolution of osteomylitis Health Concerns: diabetes diabetic foot ulcer with osteomyltis Plan of Treatment: Take antibiotics as recommended and follow up with wound clinic and Vascular surgery Dr. Goldman Assessment: as above
[2022-08-18 11:37] LABS: Glucose, Whole Blood 146 mg/dL (60-115)
[2022-08-18 16:00] VITALS: BP 157/80; PULSE 73; RESP 18; TEMP 37; O2SAT 96
[2022-08-18 16:28] LABS: Glucose, Whole Blood 254 mg/dL (60-115)
[2022-08-18 19:23] VITALS: BP 132/77; PULSE 65; RESP 18; TEMP 36.3; O2SAT 94
[2022-08-18 20:40] LABS: Glucose, Whole Blood 183 mg/dL (60-115)
[2022-08-18] MEDS: Insulin Glargine,Hum.rec.anlog 100 UNIT/ML 10 ML VIAL 50 UNIT SUBCUT (21:16)
[2022-08-18] MEDS: Atorvastatin Calcium 40 MG TABLET PO (21:17)
[2022-08-19] MEDS: Heparin Sodium,Porcine Flush 50 UNITS, 0.9 % Sodium Chloride Flush 5 ML IVFLUSH ×6 (00:29→08:38)
[2022-08-19] MEDS: 0.9 % Sodium Chloride Flush 3 ML SYRINGE IVFLUSH ×2 (00:29→08:38)
[2022-08-19 02:55] VITALS: BP 160/84; PULSE 80; RESP 16; TEMP 36.3; O2SAT 99
[2022-08-19 07:37] LABS: Glucose, Whole Blood 251 mg/dL (60-115)
[2022-08-19 07:45] VITALS: BP 154/80; PULSE 82; RESP 16; TEMP 36.4; O2SAT 99
[2022-08-19] MEDS: methADONE HCl 20 MG/2 ML ORAL.CONC 120 MG PO (08:33)
[2022-08-19] MEDS: Acetaminophen 325 MG TABLET 975 MG PO ×2 (08:33→14:35)
[2022-08-19] MEDS: Gabapentin 400 MG CAPSULE 800 MG PO ×2 (08:35→14:37)
[2022-08-19] MEDS: Clopidogrel Bisulfate 75 MG TABLET PO (08:35)
[2022-08-19] MEDS: QUEtiapine Fumarate 100 MG TABLET PO (08:36)
[2022-08-19] MEDS: Thiamine HCL 100 MG TABLET PO (08:36)
[2022-08-19] MEDS: clonazePAM 1 MG TABLET 2 MG PO (08:36)
[2022-08-19] MEDS: Insulin Lispro 100 UNIT/ML 3 ML VIAL SUBCUT ×2 (08:39→12:17)
[2022-08-19] MEDS: Insulin Lispro 100 UNIT/ML 3 ML VIAL 10 UNIT SUBCUT ×2 (08:40→12:17)
--- NOTE | 2022-08-19 09:16 | P.PNIM_ITS ---
Subjective Subjective Date of Service: 08/18/22 Interval History: f/u on osteo of foot no issues overnight Physical Exam Vital Signs: Vital Signs: vitals reviewed Const: Other: ? Middle-aged male lying in bed in no distress Neck supple, no JVD Regular rate and rhythm, S1-S2 heard Regular breath sounds bilaterally, no wheezing or crackles appreciated Abdomen soft nontender, no guarding, no rigidity Patient is awake, alert and oriented to self, place, time and person ; no focal motor deficit Musculoskeletal:? Bilateral lower extremity with ulcers noted Neuro: No focal deficit Objective Data Active Medications Acetaminophen (Acetaminophen 325 Mg Tablet) 975 mg PO TID [facility] Last Admin: 08/19/22 08:33 Dose: 975 mg Documented By: SHAYY Amlodipine Besylate (Amlodipine Besylate 5 Mg Tablet) 5 mg PO DAILY [facility]; Protocol Last Admin: 08/15/22 07:36 Dose: 5 mg Documented By: ELOY Atorvastatin Calcium (Atorvastatin Calcium 40 Mg Tablet) 40 mg PO BEDTIME [facility] Last Admin: 08/18/22 21:17 Dose: 40 mg Documented By: TORSTEN Clonazepam (Clonazepam 1 Mg Tablet) 2 mg PO BID [facility] Last Admin: 08/19/22 08:36 Dose: 2 mg Documented By: SHAYY Clonidine HCl (Clonidine Hcl 0.2 Mg Tablet) 0.2 mg PO TID [facility]; Protocol Last Admin: 08/15/22 15:29 Dose: 0.2 mg Documented By: ELOY Clopidogrel Bisulfate (Clopidogrel Bisulfate 75 Mg Tablet) 75 mg PO DAILY [facility] Last Admin: 08/19/22 08:35 Dose: 75 mg Documented By: SHAYY Heparin Sodium (Porcine) 50 (units/ Sodium Chloride 5 ml) [facility] Admin: 08/19/22 08:37 Dose: 50 unit Documented By: SHAYY Heparin Sodium (Porcine) 50 (units/ Sodium Chloride 5 ml) [facility] Last Admin: 08/19/22 08:37 Dose: 50 unit Documented By: SHAYY Heparin Sodium (Porcine) 50 (units/ Sodium Chloride 5 ml) [facility] Last Admin: 08/19/22 08:38 Dose: 50 unit Documented By: SHAYY Dextrose (Dextrose 50 % 25 Gm/50 Ml Syringe) 25 gm IVPUSH Q15M PRN; Protocol PRN Reason: per Hypoglycemia Standing Ord. Enoxaparin Sodium (Enoxaparin Sodium 40 Mg/0.4 Ml Syringe) 40 mg SUBCUT Q24H [facility] Last Admin: 08/18/22 12:00 Dose: Not Given Documented By: DREW Non-Admin Reason: Patient Refused Gabapentin (Gabapentin 400 Mg Capsule) 800 mg PO TID [facility] Last Admin: 08/19/22 08:35 Dose: 800 mg Documented By: SHAYY Glucose (Glucose Gel 15 Gm Gel..Gram.) 15 gm PO Q15M PRN; Protocol PRN Reason: per Hypoglycemia Standing Ord. Dextrose (D10) 250 mls @ 750 mls/hr IV Q15M PRN; Protocol PRN Reason: per Hypoglycemia Standing Ord. Insulin Glargine (Insulin Glargine,Hum.Rec.Anlog 100 Unit/Ml 10 Ml Vial) 50 unit SUBCUT BEDTIME [facility] Last Admin: 08/18/22 21:16 Dose: 50 unit Documented By: TORSTEN Insulin Human Lispro (Insulin Lispro 100 Unit/Ml 3 Ml Vial) 10 unit SUBCUT TID@0730,1130,1630 [facility] Last Admin: 08/19/22 08:40 Dose: 10 unit Documented By: SHAYY Insulin Human Lispro (Insulin Lispro 100 Unit/Ml 3 Ml Vial) 0 unit SUBCUT QIDACHS [facility]; Protocol Last Admin: 08/19/22 08:39 Dose: 6 unit Documented By: SHAYY Lisinopril (Lisinopril 20 Mg Tablet) 20 mg PO DAILY [facility]; Protocol Last Admin: 08/15/22 07:36 Dose: 20 mg Documented By: ELOY Melatonin (Melatonin 3 Mg Tablet) 6 mg PO BEDTIME PRN PRN Reason: Insomnia Last Admin: 08/11/22 20:05 Dose: 6 mg Documented By: CHADD Methadone HCl (Methadone Hcl 20 Mg/2 Ml Oral.Conc) 120 mg PO DAILY [facility] Last Admin: 08/19/22 08:33 Dose: 120 mg Documented By: SHAYY Ondansetron HCl (Ondansetron Hcl 4 Mg/2 Ml Vial) 4 mg IVPUSH Q8H PRN PRN Reason: Nausea and Vomiting Last Admin: 08/05/22 06:07 Dose: 4 mg Documented By: RUDY Pharmacy Consult (Consult Rx Perform Med Rec) 1 each MISCELLANE ONCE PRN PRN Reason: Consult order Quetiapine Fumarate (Quetiapine Fumarate 100 Mg Tablet) 100 mg PO BID [facility] Last Admin: 08/19/22 08:36 Dose: 100 mg Documented By: SHAYY Sodium Chloride (0.9 % Sodium Chloride Flush 3 Ml Syringe) 3 ml IVFLUSH QSHIFT [facility] Last Admin: 08/19/22 08:38 Dose: 3 ml Documented By: SHAYY Thiamine HCl (Thiamine Hcl 100 Mg Tablet) 100 mg PO DAILY [facility] Last Admin: 08/19/22 08:36 Dose: 100 mg Documented By: SHAYY Labs 08/05/22 06:50 08/18/22 04:59 Labs: Laboratory Results - last 24 hr 08/18/22 08/18/22 08/18/22 11:25 16:13 20:36 POC Glucose 146 H 254 H 183 H 08/19/22 07:15 POC Glucose 251 H Assessment and Plan (1) Diabetic foot ulcer: Status: Acute Plan 52-year-old male with pertinent history of insulin-dependent diabetes mellitus, peripheral vascular disease, opiate use disorder on methadone, chronic hypoxemic respiratory failure on 2 L baseline oxygen due to COVID, essential hypertension, mood disorder, mixed hyperlipidemia who presents to the emergency department for concerns of foot infection. Bilateral lower extremity diabetic foot infection with cellulitis and nonhealing ulcers. He was treated for 6 weeks of Abx in [place] White cell scan suggest soft tissue infection and acute osteomylitis MRI also suggest soft tissue infection and osteo--see full report Presently on Cefepime,off Clinda and Vanco. ID recommends skilled nursing Abx, has a PICC line insulin-dependent diabetes mellitus with hyperglycemia:better. continue present regimen He is saying he doesn't want to go to any rehab Alcohol use disorder: No withdrawal HTN--controlled, continue lisinopril, Norvasc Mood disorder:? 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 Patient states he uses 2 L baseline during ambulation Mixed hyperlipidemia: On statin Chronic normocytic anemia.? Hemoglobin above transfusion threshold boderline bp: Patient asymptomatic, possible due to bp meds , hold bp meds ,add ed LR. transient RUE weakness, negative CT of head,neck and declining MRI.. Has complete function and doubt stroke DVT prophylaxis:? Lovenox 40 mg daily need for inpatient:IV Abx for acute osteomylitis.awaiting placement, will discuss with CM about alternate placement since he does not want to go home rather than rehab late entry note for 08/18 Time Spent With Patient Time: Total time managing care of this patient today ____ minutes. Quality Stroke Does the patient have a stroke diagnosis?: No VTE Prior VTE?: No VTE Risk Level:: Medical - moderate - high VTE Device Contraindication: Treatment Not Indicated VTE Drug Contraindication: N/A - Med Ordered
[2022-08-19 11:32] LABS: Glucose, Whole Blood 207 mg/dL (60-115)
[2022-08-19 11:36] VITALS: BP 144/83; PULSE 75; RESP 17; TEMP 36.4; O2SAT 99
--- NOTE | 2022-08-19 14:48 | MHC.CM.PN ---
DP: PT HAS BEEN MEDICALLY CLEARED FOR DC HOME, NO SERVICES. RN AWARE. LYFT RIDE ARRANGED FOR 3:20 PM.
== END 2022-08-19 14:59 | disposition home or self-care (01) | DRG 344 ==
LOC: HO.ED 03:41 → HO.EDOVER 06:38 → HO.S3 17:51
PROVIDERS: Internal Medicine; Physician Assistant; Admitting Provider Student in an Organized Health Care Education/Training Program; Emergency Provider Emergency Medicine Emergency Medical Services; Visit Provider Internal Medicine
DX: E11.621 Type 2 diabetes mellitus with foot ulcer (principal); M86.172 Other acute osteomyelitis, left ankle and foot; M86.171 Other acute osteomyelitis, right ankle and foot; J96.11 Chronic respiratory failure with hypoxia; E11.51 Type 2 diabetes mellitus with diabetic peripheral angiopathy without gangrene; L03.115 Cellulitis of right lower limb; L97.519 Non-pressure chronic ulcer of other part of right foot with unspecified severity; D64.9 Anemia, unspecified; U09.9 Post COVID-19 condition, unspecified; L97.529 Non-pressure chronic ulcer of other part of left foot with unspecified severity; E11.65 Type 2 diabetes mellitus with hyperglycemia; E78.2 Mixed hyperlipidemia; Z99.81 Dependence on supplemental oxygen; F11.20 Opioid dependence, uncomplicated; I10 Essential (primary) hypertension; E11.69 Type 2 diabetes mellitus with other specified complication; E11.628 Type 2 diabetes mellitus with other skin complications; F10.10 Alcohol abuse, uncomplicated; G83.21 Monoplegia of upper limb affecting right dominant side; L03.116 Cellulitis of left lower limb; Z20.822 Contact with and (suspected) exposure to COVID-19; Z75.1 Person awaiting admission to adequate facility elsewhere; Z88.0 Allergy status to penicillin; Z88.6 Allergy status to analgesic agent; Z79.4 Long term (current) use of insulin; Z79.899 Other long term (current) drug therapy
CPT/HCPCS: 36415; 70450; 70496; 70498; 71045; 73610; 73620; 73720; 78306; 80048; 80061; 80202; 82077; 82565; 82803; 82947; 83605; 83880; 84484; 85025; 85610; 85652; 86140; 87040; 87635; 92950; 93923; 93925; 97161; 97165; 99285; A9521; A9585; J0692; J1170; J1642; J2060; J2405; J2543; J3370; J3371; Q9967

== ENCOUNTER 2022-12-02 14:12 | Emergency (ER) | payer MEDICAID, SELFPAY ==
--- NOTE | ~2022-12-02 | CT_ITS ---
EXAMINATION: CT HEAD WITHOUT CONTRAST CLINICAL INFORMATION: Confusion. Lethargic. COMPARISON: CT of the head done on 08/15/2022. TECHNIQUE: Contiguous axial imaging was performed from the skull base to vertex without intravenous administration of contrast. This CT examination was performed using dose optimization techniques as appropriate, variously including the following: *Automated exposure control *Adjustment of mA and/or kV according to patient size (this includes techniques or standardized protocols for targeted exams where dose is matched to indication/reason for exam; i.e. extremities or head) *Use of iterative reconstruction technique DLP: 673 mGy-cm FINDINGS: There is no evidence of acute intracranial hemorrhage or territorial infarction. No abnormal mass effect or midline shift is seen. Mcneal to white matter differentiation is well preserved. No extra-axial fluid collections are identified. No significant volume loss. No hydrocephalus. There is no abnormal attenuation within the brain parenchyma. The osseous structures and soft tissues are normal. The mastoid air cells and visualized portions of the paranasal sinuses are well aerated. CT/CT head/brain wo IV con IMPRESSION: No acute intracranial pathology. No significant change since 08/15/2022.
--- NOTE | ~2022-12-02 | XR_ITS ---
EXAMINATION: XR FOOT, LEFT CLINICAL INFORMATION: Diabetic ulcer. Concern for osteomyelitis COMPARISON: Left foot 08/05/2022 TECHNIQUE: 3 views of the left foot. FINDINGS: There is acute bone destruction of the proximal fifth metatarsal. This is new since the study of 08/05/2022. Findings consistent with osteomyelitis. There has been prior resection of the mid distal shaft of the fourth and fifth metatarsal with residual deformity of these bones similar prior study. Status post arthrodesis. Fusion with 2 orthopedic screws. There is fusion between the navicular and the talus and fusion between the calcaneus and the cuboid. Orthopedic staple midshaft of the first metatarsal. Redemonstration of postoperative changes from partial resection of the third and fourth metatarsals. Small metallic linear foreign body at the interspace between the first and second toe similar prior study. XR/XR foot LT min 3V IMPRESSION: 1. Acute bone destruction of the proximal fifth metatarsal consistent with osteomyelitis. This is new since prior study of 08/05/2022. 2. Postsurgical changes of the foot as described above.
--- NOTE | ~2022-12-02 | XR_ITS ---
EXAMINATION: XR FOOT, RIGHT CLINICAL INFORMATION: Diabetic ulcer. COMPARISON: Right foot 08/05/2022 TECHNIQUE: AP, lateral, and oblique views of the right foot. FINDINGS: Stable chronic changes from prior amputation of the toes at the proximal metatarsal. Surgical clips at the surgical site. There is soft tissue swelling and evidence of skin ulceration over the stump at the medial plantar side of the foot. Soft tissue ulceration new since prior study 08/05/2022. No focal acute bone destruction to suggest osteomyelitis. Bone mineral density is maintained. XR/XR foot RT min 3V IMPRESSION: Soft tissue ulceration of the stump at the medial plantar side of the foot. No radiographic evidence of osteomyelitis. MRI would be more sensitive for detection of osteomyelitis.
--- NOTE | ~2022-12-02 | XR_ITS ---
EXAMINATION: XR CHEST CLINICAL INFORMATION: Altered mental status and shortness of breath COMPARISON: 08/15/2022 TECHNIQUE: Frontal view of the chest was obtained. FINDINGS: Heart and mediastinum within normal limits. Low lung volumes are present. Patchy peripheral opacities were present previously, likely reflecting chronic interstitial disease. No vascular congestion, consolidations or effusions. Bony structures are intact. XR/XR chest 1V IMPRESSION: Chronic appearing findings. No acute cardiopulmonary disease.
[2022-12-02 14:30] VITALS: BP 88/60; BP 96/52; PULSE 130; PULSE 79; RESP 11; TEMP 36.9; O2SAT 96; BMI 35.4
--- NOTE | 2022-12-02 14:35 | PC.NURSE ---
pt QUIANAA from bus where he was found unresponsive by primary substance abuse counselor. pt BP 88/60 for EMS, pt lethargic but responsive to name and able to follow directions, pt quickly falls back asleep during conversation. Pupils equal and round, sluggish to react to light. pt with half foot amputation to R foot. Pressure injury to flat of foot. pt with multiple wounds to L foot and toes. foul odor. dressing saturated. green/yellow drainage to wound on lateral aspect of foot. SIGRID Delong made aware of pt condition .
--- NOTE | 2022-12-02 14:46 | ECG_ITS ---
Test Reason : GENERAL MEDICAL Blood Pressure : / mmHG Vent. Rate : 073 BPM Atrial Rate : 073 BPM P-R Int : 186 ms QRS Dur : 072 ms QT Int : 286 ms P-R-T Axes : 012 -14 -05 degrees QTc Int : 315 ms Normal sinus rhythm Minimal voltage criteria for LVH, may be normal variant ( R in aVL ) Cannot rule out Anterior infarct , age undetermined Abnormal ECG When compared with ECG of 27-MAY-2022 20:49, Nonspecific T wave abnormality, worse in Anterolateral leads QT has shortened Referred By: Shaquille Correa Electronically Signed By:Jack Holt
--- NOTE | 2022-12-02 14:57 | ED.GENADULT ---
HPI - General Adult General Chief complaint: General Medical Stated complaint: Lethargic Time Seen by Provider: 12/02/22 14:57 Source: patient, EMS and old records reviewed Mode of arrival: EMS Limitations: altered mental status History of Present Illness HPI narrative: 52 y/o male with history of chronic respiratory failure on supplemental O2, alcoholic cirrohsis, etoh use disorder, anxiety, T2DM with hx of b/l diabetic foot ulcers s/p multiple right transmetatarsal amputations, pancreatitis, hypertension, covid requiring tracheostomy and prolonged hospital stay, polysubstance abuse, LE compartment syndrome, chronic osteomyelitis of b/l feet presenting today via EMS with lethargy. Per EMS, patient was on a bus from [facility] to [facility] when the business integration analyst could not wake the patient up, prompting them to call EMS. Upon arrival, patient was hypertensive. In ED, patient states that he is tired, responsive to verbal stimuli. Denies recent ilicit drug use or etoh consumption. Patient seen at [facility] on 11/18 for treatment of his chronic bilateral diabetic foot ulcers and left AMA, declining further treatment with IV antibiotics. Related Data Home Medications Medication Instructions Recorded Confirmed methadone 10 mg/mL oral 122 mg PO DAILY 04/25/22 08/05/22 concentrate (Methadone Intensol) quetiapine 100 mg tablet 1 tab PO BID 08/05/22 08/05/22 Previous Rx's Medication Instructions Recorded amlodipine 5 mg tablet 5 mg PO DAILY #30 tabs 06/08/22 atorvastatin 40 mg tablet 1 tab PO BEDTIME #30 tabs 06/08/22 blood-glucose meter (FreeStyle #1 ea 06/08/22 Flash System kit) gabapentin 600 mg tablet 1 tab PO TID #21 tabs 06/08/22 insulin lispro 100 unit/mL 10 unit (0.1 mL) subcut TID #15 mL 06/08/22 subcutaneous pen clonazepam 2 mg tablet (Klonopin) 2 mg PO BID 5 days #10 tabs 07/26/22 clonidine HCl 0.2 mg tablet 0.2 mg PO TID 30 days #90 tabs 07/26/22 free style lite glucometer #1 ea 07/26/22 free style lite test strips #1 ea 07/26/22 insulin glargine 100 unit/mL (3 60 unit (0.6 mL) subcut QPM #15 mL 07/26/22 mL) subcutaneous pen (Lantus Solostar U-100 Insulin) lancets #1 ea 07/26/22 lisinopril 20 mg tablet 20 mg PO DAILY 30 days #30 tabs 07/26/22 doxycycline hyclate 100 mg tablet 100 mg PO BID 14 days #28 tabs 08/19/22 levofloxacin 750 mg tablet 750 mg PO DAILY 14 days #14 tabs 08/19/22 Allergies Allergy/AdvReac Type Severity Reaction Status Date / Time prochlorperazine Allergy Intermediate Hives Verified 06/09/22 17:33 [From Compazine] aspirin [ASA] Allergy Unknown HIVES Verified 06/09/22 17:33 naproxen [From NAPROSYN] Allergy Unknown HIVES Verified 06/09/22 17:33 NSAIDS (Non-Steroidal Allergy Unknown HIVES Verified 06/09/22 17:33 Anti-Inflamma [NSAIDS (NON-STEROIDAL ANTI-INFLAMMA] Penicillins [PENICILLINS] Allergy Unknown HIVES Verified 06/09/22 17:33 Review of Systems Review of Systems: Yes all other systems are reviewed and are negative [facility] Past Medical History Attestation statement: The following information was validated with the patient. Source: old records reviewed and nursing notes reviewed Medical History Compartment syndrome of left lower extremity Diabetes (~07/26/22) Diabetes type 2 with atherosclerosis of arteries of extremities HTN (hypertension) Opioid use disorder Post-COVID chronic dyspnea Ulcer of left foot Surgical History Status post transmetatarsal amputation of right foot Family History Family History Other No pertinent family history Social History Social History Household Members: None Housing: Other Housing Other:: [facility]. Do you presently have visiting nurse or other home services: No Alcohol intake: current Alcohol intake frequency: a few times a month Alcohol type: hard liquor Patient Tobacco Use Status: Never used Tobacco Smoked in Last 30 Days: No e-Cigarette/Vaping Use: Never Used Second Hand Smoke Exposure: No Use of substances other than those prescribed or required for medical reasons: Refusing to respond Advance Directives: Yes Advance Directives on File: Yes Advance Directives Date on File: 05/19/22 service: No Current occupational status: disabled Physical Exam ED Vital Signs: Vital Signs - 24 hr 12/02/22 14:30 12/02/22 16:19 12/02/22 17:10 Temperature 98.4 F Pulse Rate 79 78 72 Respiratory Rate 11 L 14 11 L Blood Pressure 96/52 L 91/52 L 109/61 Pulse Oximetry 96 95 97 Oxygen Delivery Method Nasal Cannula Nasal Cannula Nasal Cannula Oxygen Flow Rate 3 3 12/02/22 17:32 12/02/22 18:26 Temperature Pulse Rate 76 80 Respiratory Rate 10 L 13 Blood Pressure 116/65 161/84 H Pulse Oximetry 96 98 Oxygen Delivery Method Nasal Cannula Nasal Cannula Oxygen Flow Rate 3 2 BMI result Body Mass Index 35.4 Appearance: Alert, lethargic, arrousable to voice, appears older than stated age, follows commands, no acute distress Head: normocephalic, atraumatic. Eyes: Pupils equal, round and reactive to light. ENT: Poor dentition. Neck: Normal inspection. Neck supple. CVS: Normal heart rate and rhythm. Pulses normal. Respiratory: No respiratory distress. Breath sounds normal. Abdomen: Soft and nontender. +BS x4 Skin: Skin warm and dry. Normal skin color. Normal skin turgor. No rashes. Extremities: No lower extremity edema. No joint swelling. large ulcer to plantar aspect right foot, with transmetatarsal amputations x5. Ulcer to lateral aspect of left foot. Previously healed fasciotomy scars to left lower leg. No discharge or bleeding noted to ulcers. Neuro/psych:No motor deficit. No sensory deficit. Course Reevaluation(s) Reevaluation #1: vbg with mild resp acidosis, spo2 98% on 3.5L. FiO2 decreased to 1L. easily arouses to voice. no need for rescue bipap at this time. plan to monitor mental status/resp status, repeat VBG as needed signed out to [facility] [employer] PSYCHOLOGIST who will f/u results and admit., Time: 16:39 Reevaluation #2: Mentation appears to be improving at this time, he is conscious alert and oriented x4, speaking clear full sentences, ambulatory with a steady gait in the use of a wheeled walker.. CBC revealing a pancytopenia. XR revealing acute bone destruction of the left proximal 5th metatarsal consistent with osteomyelitis, right foot x-ray without radiographic evidence of osteomyelitis. Patient not currently taking antibiotics, recently left [facility] 1 week ago, by his account he was discharged, and he did not leave AMA. he reports it was recommended that he have further amputation of his foot, however he declined. Head CT results are not back at this time. Nursing staff informed me that they found polysubstance paraphernalia amongst his belongings. Patient became very upset about this. He is requesting to leave at this time. Advised that he would be leaving against medical advice as it was recommended that he stay in the emergency department and be admitted to the hospital for IV antibiotics for management of osteomyelitis. He declines at this time. Discussed complications including worsening infection, sepsis both of which may be life-threatening. He verbalized understanding of this and continued wish to leave against medical advice at this time. Declined to sign AMA form. Time: 19:10 Medications Administered Discontinued Medications Generic Name Dose Route Start Last Admin Trade Name Freq PRN Reason Stop Dose Admin Sodium Chloride 1,000 mls @ 999 mls/hr 12/02/22 15:00 12/02/22 17:24 Ns IVCONT 12/02/22 16:00 Infused .Q1H1M RICHARD Infusion Vancomycin HCl 2,000 mg in 500 mls @ 250 mls/hr 12/02/22 16:05 12/02/22 18:26 Vancomycin/Ns IV 12/02/22 18:04 250 mls/hr ONCE ONE Administration Cefepime HCl 2 gm/ Sodium 50 mls @ 100 mls/hr 12/02/22 16:06 12/02/22 18:09 Chloride IV 12/02/22 16:35 Infused ONCE ONE Infusion Sodium Chloride 1,000 mls @ 999 mls/hr 12/02/22 16:15 12/02/22 17:24 Ns IVCONT 12/02/22 17:15 Infused .Q1H1M RICHARD Infusion Medical Decision Making Medical Decision Making MDM Narrative: 52 y/o male with history of alcoholic cirrohsis, etoh use disorder, anxiety, T2DM with hx of b/l diabetic foot ulcers s/p multiple right transmetatarsal amputations, pancreatitis, hypertension, covid requiring tracheostomy and prolonged hospital stay, polysubstance abuse, LE compartment syndrome, chronic osteomyelitis of b/l feet presenting today via EMS with lethargy after being found unresponsive on a bus. plan: labs, VBG Labs remarkable for mild acidosis Differential Diagnosis Differential Diagnoses: The differential diagnosis associated with the presentation includes osteomyelitis, sepsis, severe sepsis, septic shock, UTI, renal failure, drug OD, rhabdo, multisystem organ failure Admission/Observation Consideration of admission/observation: Escalation of care including admission/observation considered This lethargic 52 year old male with current diagnosis of osteomyelitis and multiple medical problems will be admitted. Lab Data MDM Lab Attestation statement: I reviewed the patient's lab results. 12/02/22 16:12 12/02/22 16:12 Labs: Lab Results 12/02/22 12/02/22 12/02/22 Range/Units 16:11 16:12 16:12 WBC 4.7 L (4.8-10.8) X10*3/uL RBC 4.11 L (4.60-5.80) X10*6/uL Hgb 10.4 L (14.0-18.0) g/dl Hct 33.8 L (42.0-52.0) % MCV 82.2 (80.0-98.0) fL MCH 25.3 L (27.0-33.0) pg MCHC 30.8 L (31.0-36.0) g/dl RDW 17.2 H (11.0-16.0) % Plt Count 168 (160-400) X10*3/uL MPV 9.2 L (9.4-12.4) fL Immature Gran % (Auto) 0.4 (0.0-0.4) % Neut % (Auto) 63.9 (45-73) % Lymph % (Auto) 22.3 (20-40) % Granite % (Auto) 11.5 H (2-11) % Eos % (Auto) 1.3 (0-4) % Baso % (Auto) 0.6 (0-2) % Lymph # (Auto) 1.1 L (1.2-4.9) X10*3/uL Granite # (Auto) 0.5 (0.1-1.2) X10*3/uL Eos # (Auto) 0.1 (0.0-0.4) X10*3/uL Baso # (Auto) 0.0 (0.0-0.2) X10*3/uL Abs Immat Gran (auto) 0.02 (0.00-0.03) X10*3/uL Absolute Neuts (auto) 3.0 (2.0-8.3) x10*3/uL Absolute Nucleated RBC 0.000 (0.0-0.012) X10*3/uL Nucleated RBC % (auto) 0.0 (0.0-0.2) /100WBC VBG pH (7.32-7.43) VBG pCO2 mmHg VBG pO2 mmHg VBG HCO3 (22-26) mmol/L VBG O2 Saturation % VBG Base Excess mmol/L Sodium 138 (135-145) mmol/L Potassium 5.2 H (3.3-5.1) mmol/L Chloride 103 (96-108) mmol/L Carbon Dioxide 29 (22-29) mmol/L Anion Gap 11 L (12-20) BUN 18 H (9-16) mg/dL Creatinine 1.31 (0.5-1.4) mg/dL Estim Creat Clear Calc 76.7 Estimated GFR 57 Random Glucose 134 H (60-115) mg/dL Lactic Acid (0.5-2.0) mmol/L Calcium 10.2 D (8.4-10.2) mg/dL Magnesium 2.1 (1.6-2.6) mg/dL Total Bilirubin 0.4 (0.0-1.0) mg/dL AST 24 (5-37) U/L ALT 15 (0-40) U/L Alkaline Phosphatase 266 H (39-117) U/L Ammonia 27 (13-55) umol/L Total Protein 7.9 (6.5-8.0) g/dL Albumin 3.5 (3.5-5.0) g/dL Ethyl Alcohol < 10 mg/dL COVID-19 ([facility]) (Negative) COVID-19 Clin Com 12/02/22 12/02/22 12/02/22 Range/Units 16:12 16:14 16:50 WBC (4.8-10.8) X10*3/uL RBC (4.60-5.80) X10*6/uL Hgb (14.0-18.0) g/dl Hct (42.0-52.0) % MCV (80.0-98.0) fL MCH (27.0-33.0) pg MCHC (31.0-36.0) g/dl RDW (11.0-16.0) % Plt Count (160-400) X10*3/uL MPV (9.4-12.4) fL Immature Gran % (Auto) (0.0-0.4) % Neut % (Auto) (45-73) % Lymph % (Auto) (20-40) % Granite % (Auto) (2-11) % Eos % (Auto) (0-4) % Baso % (Auto) (0-2) % Lymph # (Auto) (1.2-4.9) X10*3/uL Granite # (Auto) (0.1-1.2) X10*3/uL Eos # (Auto) (0.0-0.4) X10*3/uL Baso # (Auto) (0.0-0.2) X10*3/uL Abs Immat Gran (auto) (0.00-0.03) X10*3/uL Absolute Neuts (auto) (2.0-8.3) x10*3/uL Absolute Nucleated RBC (0.0-0.012) X10*3/uL Nucleated RBC % (auto) (0.0-0.2) /100WBC VBG pH 7.31 L (7.32-7.43) VBG pCO2 62 mmHg VBG pO2 33 mmHg VBG HCO3 31 H (22-26) mmol/L VBG O2 Saturation 38.0 % VBG Base Excess 4.2 mmol/L Sodium (135-145) mmol/L Potassium (3.3-5.1) mmol/L Chloride (96-108) mmol/L Carbon Dioxide (22-29) mmol/L Anion Gap (12-20) BUN (9-16) mg/dL Creatinine (0.5-1.4) mg/dL Estim Creat Clear Calc Estimated GFR Random Glucose (60-115) mg/dL Lactic Acid 1.2 (0.5-2.0) mmol/L Calcium (8.4-10.2) mg/dL Magnesium (1.6-2.6) mg/dL Total Bilirubin (0.0-1.0) mg/dL AST (5-37) U/L ALT (0-40) U/L Alkaline Phosphatase (39-117) U/L Ammonia (13-55) umol/L Total Protein (6.5-8.0) g/dL Albumin (3.5-5.0) g/dL Ethyl Alcohol mg/dL COVID-19 ([facility]CHO) Negative (Negative) COVID-19 Clin Com See Note Radiology Impression Discussion of test interpretation with radiology: I have reviewed the radiologist's reading. Radiologist Impression: XR/XR foot LT min 3V IMPRESSION: 1.? Acute bone destruction of the proximal fifth metatarsal consistent with osteomyelitis. This is new since prior study of 08/05/2022. 2.? Postsurgical changes of the foot as described above. XR/XR foot RT min 3V IMPRESSION: Soft tissue ulceration of the stump at the medial plantar side of the foot. No radiographic evidence of osteomyelitis. MRI would be more sensitive for detection of osteomyelitis. XR/XR chest 1V IMPRESSION: Chronic appearing findings. No acute cardiopulmonary disease. Independent Historian Clinical information obtained from an independent historian. History obtained from or confirmed by: EMS External Record Review External record reviewed: Inpatient record, Office record, Outpatient record, Prior outpatient labs, Prior outpatient radiology and Outside ED record Prescription Management I considered prescription management with: Antibiotic Chronic Conditions Patient?s care impacted by: Diabetes Social Determinants Patient?s care significantly limited by Social Determinants of Health including: Problems related to primary support group and Other Social Determinant of Health Critical Care Time Critical Care Time Critical Care Time: Yes Total Critical Care Time: 41 Attestation: I have personally provided critical care time exclusive of time spent on separately billable procedures. Time includes review of lab data, radiology results, discussion with consultants, and monitoring for potential decompensation. Intervention performed as documented. Discharge Plan Discharge Clinical Impression: Acute metabolic encephalopathy, Diabetic foot ulcers Patient Disposition: Left Against Medical Advice Prescriptions: No Action atorvastatin 40 mg tablet 1 tab PO BEDTIME Qty: 30 0RF gabapentin 600 mg tablet 1 tab PO TID Qty: 21 0RF amlodipine 5 mg Tablet 5 mg PO DAILY Qty: 30 0RF Protocol: Hold for SBP< HOLD for SBP < : 90 (DME) blood-glucose meter [FreeStyle Flash System] Kit See Rx Instructions .Route Qty: 1 0RF Rx Instructions: As directed insulin lispro 100 unit/mL insulin pen 10 unit subcut TID Qty: 15 0RF insulin glargine [Lantus Solostar U-100 Insulin] 100 unit/mL (3 mL) insulin pen 60 unit subcut QPM Qty: 15 0RF clonazepam [Klonopin] 2 mg tablet 2 mg PO BID 5 Days Qty: 10 0RF clonidine HCl 0.2 mg tablet 0.2 mg PO TID 30 Days Qty: 90 0RF lisinopril 20 mg tablet 20 mg PO DAILY 30 Days Qty: 30 0RF (DME) free style lite glucometer See Rx Instructions .Route .MEDSUPPLY Qty: 1 0RF Rx Instructions: As directed (DME) free style lite test strips See Rx Instructions .Route .MEDSUPPLY Qty: 1 0RF Rx Instructions: As directed (DME) lancets See Rx Instructions .Route .MEDSUPPLY Qty: 1 0RF Rx Instructions: As directed methadone [Methadone Intensol] 10 mg/mL Concentrate 122 mg PO DAILY quetiapine 100 mg tablet 1 tab PO BID doxycycline hyclate 100 mg tablet 100 mg PO BID 14 Days Qty: 28 0RF levofloxacin 750 mg tablet 750 mg PO DAILY 14 Days Qty: 14 0RF Stand Alone Forms: Against Medical Advice Discharge Date/Time: 12/02/22 19:20
--- NOTE | 2022-12-02 16:01 | PC.NURSE ---
pt difficulty poke. unable to obtain IV access at this time. Addis MATTA aware.
[2022-12-02 16:19] VITALS: BP 91/52; PULSE 78; RESP 14; O2SAT 95
[2022-12-02 16:19] LABS: MANUAL DIFF FLAG NO
[2022-12-02 16:22] LABS: Basophils Percent Auto 0.6 % (0-2); Eosinophils Absolute Auto 0.1 X10*3/uL (0.0-0.4); Eosinophils Percent Auto 1.3 % (0-4); Hematocrit 33.8 % (42.0-52.0); Hemoglobin 10.4 g/dl (14.0-18.0); Imm Gran Abs Auto 0.02 X10*3/uL (0.00-0.03); Imm Gran Pct Auto 0.4 % (0.0-0.4); Lymphocytes Absolute Auto 1.1 X10*3/uL (1.2-4.9); Lymphocytes Percent Auto 22.3 % (20-40); Mean Corpuscular HGB Conc 30.8 g/dl (31.0-36.0); Mean Corpuscular Hemoglobin 25.3 pg (27.0-33.0); Mean Corpuscular Volume 82.2 fL (80.0-98.0); Mean Platelet Volume 9.2 fL (9.4-12.4); Monocytes Absolute Auto 0.5 X10*3/uL (0.1-1.2); Monocytes Percent Auto 11.5 % (2-11); Neutrophils Percent Auto 63.9 % (45-73); Platelet Count 168 X10*3/uL (160-400); Red Blood Count 4.11 X10*6/uL (4.60-5.80); Red Cell Distribution Width 17.2 % (11.0-16.0); White Blood Count 4.7 X10*3/uL (4.8-10.8)
[2022-12-02 16:24] LABS: Venous Blood Gas Refer to POC result
[2022-12-02] MEDS: 0.9 % Sodium Chloride 1,000 ML 999 ML IVCONT ×2 (16:24)
[2022-12-02 16:25] LABS: VBG Base Excess 4.2 mmol/L; VBG HCO3 31 mmol/L (22-26); VBG pCO2 62 mmHg; VBG pH 7.31 (7.32-7.43); VBG pO2 33 mmHg
[2022-12-02 16:29] LABS: Ammonia 27 umol/L (13-55)
[2022-12-02 16:32] LABS: Lactic Acid 1.2 mmol/L (0.5-2.0)
--- NOTE | 2022-12-02 16:39 | PC.NURSE ---
per Sindi MATTA, attempt to rehydrate pt with IV fluids prior to attempt for second blood culture set. unable to hang iv ABX at this time
[2022-12-02 16:42] LABS: Alanine Aminotransferase 15 U/L (0-40); Albumin Level 3.5 g/dL (3.5-5.0); Alkaline Phosphatase 266 U/L (39-117); Anion Gap 11 (12-20); Aspartate Amino Transferase 24 U/L (5-37); Bilirubin Total 0.4 mg/dL (0.0-1.0); Blood Urea Nitrogen 18 mg/dL (9-16); Calcium 10.2 mg/dL (8.4-10.2); Carbon Dioxide 29 mmol/L (22-29); Chloride 103 mmol/L (96-108); Creatinine Clr Calc Pharmacy 76.7; Estimated Glomerular Filt Rate 57; Ethanol < 10 mg/dL; Glucose Random 134 mg/dL (60-115); Magnesium 2.1 mg/dL (1.6-2.6); Potassium 5.2 mmol/L (3.3-5.1); Sodium 138 mmol/L (135-145); Total Protein 7.9 g/dL (6.5-8.0)
--- NOTE | 2022-12-02 16:58 | PC.NURSE ---
multiple stick attempt to obtain second set of cultures. unable to collect second set at this time. call placed to phlebotomy to obtain second set
[2022-12-02 17:10] VITALS: BP 109/61; PULSE 72; RESP 11; O2SAT 97
[2022-12-02 17:21] LABS: COVID-19 Test Negative (Negative); IDNOW Serial# 08D9AD1C
[2022-12-02 17:32] VITALS: BP 116/65; PULSE 76; RESP 10; O2SAT 96
[2022-12-02] MEDS: cefEPime HCl 2 GM in 0.9 % Sodium Chloride 50 ML IV (17:36)
[2022-12-02 18:26] VITALS: BP 161/84; PULSE 80; RESP 13; O2SAT 98
[2022-12-02] MEDS: vancomycin/NS 2,000 MG/500 ML PLAST..BAG 250 MG IV (18:26)
--- NOTE | 2022-12-02 19:13 | PC.NURSE ---
Assumed care of pt. During handover, it was identified to this RN that the pt was initially fond unresponsive on a bus, leading to the visit today. Bela HORAN, and this RN, did a cursory search of belongings out fo safety concerns for patient and staff, and found contraband, handed over to Security. When pt was made aware of search, pt removed IV, canula intact, and demanded to leaved. Pt is not sectioned, nor under involuntary hold for any reason. Pt was informed he could leave, and is being escorted out by Security.
--- NOTE | 2022-12-02 19:16 | PC.NURSE ---
LATE ENTRY at approx 1835 pt made this RN aware that he needed to use the bathroom. due to pts wounds on foot this RN gave pt urinal to give urine sample. pt reported that he needed to go to the real bathroom because he needed to do other stuff too . this RN, given pts presentation as unresponsive on bus became skeptical, informed tach Albin of what was happening and asked Albin to assist and observe pt in the bathroom given that his walker has a basket seat. pt irritable at this fact, albin explained to pt that given his presentation, anyone who arrives to the ER as unresponsive and is a fall risk needs to be observed in the bathroom. Albin PCT was able to search pts walker basket with pts permission. during this time this RN was given shift change report, informed incoming RN Praveen of situation, Prvaeen assisted this RN search pts belongings to which multiple packs of capsules of unknown substance and pack of heroin. security was called at this time. upon return to his room, Praveen HORAN, and security informed pt of what happened, pt ripped out his IV and demanded to leave AMA. pt was escorted out of ER by security.
== END 2022-12-02 19:20 | disposition left against medical advice (07) ==
PROVIDERS: Physician Assistant; Emergency Provider Emergency Medicine Emergency Medical Services
DX: G93.41 Metabolic encephalopathy (principal); E11.621 Type 2 diabetes mellitus with foot ulcer; D61.818 Other pancytopenia; Z20.822 Contact with and (suspected) exposure to COVID-19; Z53.29 Procedure and treatment not carried out because of patient's decision for other reasons; I10 Essential (primary) hypertension; J96.10 Chronic respiratory failure, unspecified whether with hypoxia or hypercapnia; Z99.81 Dependence on supplemental oxygen; K70.30 Alcoholic cirrhosis of liver without ascites; F11.20 Opioid dependence, uncomplicated; Z79.02 Long term (current) use of antithrombotics/antiplatelets; Z79.899 Other long term (current) drug therapy; Z79.4 Long term (current) use of insulin
CPT/HCPCS: 70450; 71045; 73630; 80053; 80307; 82140; 82803; 83605; 83735; 85025; 87040; 87635; 93005; 96361; 96365; 96375; 99284; J0692; J3370

== ENCOUNTER 2023-03-27 20:40 | Emergency (ER) | payer MEDICAID, SELFPAY ==
--- NOTE | 2023-03-27 20:55 | ED.AMS ---
HPI - Altered Mental Status General Stated Complaint: FOUND MIDDLE OF STREET W/ NEEDLES PN PERSON Time Seen by Provider: 03/27/23 20:45 Source: patient and EMS Mode of arrival: EMS Limitations: no limitations History of Present Illness HPI narrative: 52 y/o male with history of chronic respiratory failure on supplemental O2, alcoholic cirrohsis, etoh use disorder, anxiety, T2DM with hx of b/l diabetic foot ulcers s/p multiple right transmetatarsal amputations, pancreatitis, hypertension, covid requiring tracheostomy and prolonged hospital stay, polysubstance abuse, LE compartment syndrome, chronic osteomyelitis of b/l feet presenting today via EMS change in mental status/altered behavior. According to EMS, the patient was found wandering [place] the [place] and was brought to the police station. When EMS arrived he appeared to be lethargic. Patient was given Narcan intranasally which did seem to wake him up. Paramedics report that there syringe noted around the patient and they were concerned that he may have been using narcotics. Patient did tell me that he uses intranasal cocaine but he denies using recently. The patient does have oxygen that he wears chronically however he states that his machine has no better and he has not been wearing oxygen. The patient denied being suicidal or homicidal. He knows that he is at [facility]. The patient refused to get undressed. He states that he has not been ill and does not want treatment in the emergency department. He also states he does not want any help with his cocaine use disorder. Patient is requesting to leave the emergency department. Related Data Home Medications Medication Instructions Recorded Confirmed methadone 10 mg/mL oral 122 mg PO DAILY 04/25/22 08/05/22 concentrate (Methadone Intensol) quetiapine 100 mg tablet 1 tab PO BID 08/05/22 08/05/22 Previous Rx's Medication Instructions Recorded amlodipine 5 mg tablet 5 mg PO DAILY #30 tabs 06/08/22 atorvastatin 40 mg tablet 1 tab PO BEDTIME #30 tabs 06/08/22 blood-glucose meter (FreeStyle #1 ea 06/08/22 Flash System kit) gabapentin 600 mg tablet 1 tab PO TID #21 tabs 06/08/22 insulin lispro 100 unit/mL 10 unit (0.1 mL) subcut TID #15 mL 06/08/22 subcutaneous pen clonazepam 2 mg tablet (Klonopin) 2 mg PO BID 5 days #10 tabs 07/26/22 clonidine HCl 0.2 mg tablet 0.2 mg PO TID 30 days #90 tabs 07/26/22 free style lite glucometer #1 ea 07/26/22 free style lite test strips #1 ea 07/26/22 insulin glargine 100 unit/mL (3 60 unit (0.6 mL) subcut QPM #15 mL 07/26/22 mL) subcutaneous pen (Lantus Solostar U-100 Insulin) lancets #1 ea 07/26/22 lisinopril 20 mg tablet 20 mg PO DAILY 30 days #30 tabs 07/26/22 doxycycline hyclate 100 mg tablet 100 mg PO BID 14 days #28 tabs 08/19/22 levofloxacin 750 mg tablet 750 mg PO DAILY 14 days #14 tabs 08/19/22 Allergies Allergy/AdvReac Type Severity Reaction Status Date / Time prochlorperazine Allergy Intermediate Hives Verified 06/09/22 17:33 [From Compazine] aspirin [ASA] Allergy Unknown HIVES Verified 06/09/22 17:33 naproxen [From NAPROSYN] Allergy Unknown HIVES Verified 06/09/22 17:33 NSAIDS (Non-Steroidal Allergy Unknown HIVES Verified 06/09/22 17:33 Anti-Inflamma [NSAIDS (NON-STEROIDAL ANTI-INFLAMMA] Penicillins [PENICILLINS] Allergy Unknown HIVES Verified 06/09/22 17:33 Review of Systems Review of Systems: Yes all other systems are reviewed and are negative PMFSH Past Medical History Medical History Diabetes type 2 with atherosclerosis of arteries of extremities Opioid use disorder Ulcer of left foot Post-COVID chronic dyspnea Compartment syndrome of left lower extremity HTN (hypertension) Diabetes (~07/26/22) Surgical History Status post transmetatarsal amputation of right foot Family History Family History Other No pertinent family history Social History Social History Household Members: None Housing: Other Housing Other:: [facility], [facility]. Do you presently have visiting nurse or other home services: No Unable to assess alcohol history related to: Refusing to respond Alcohol intake: current Alcohol intake frequency: a few times a month Alcohol type: hard liquor Patient Tobacco Use Status: Never used Tobacco e-Cigarette/Vaping Use: Never Used Second Hand Smoke Exposure: No Substance Use Type: Crack/Cocaine Advance Directives Date on File: 05/19/22 service: No Current occupational status: disabled Physical Exam ED Exam: General: Patient does appear to be somnolent but is oriented to person, place and understands the consequences of refusing care. Head: Normal cephalic and atraumatic. 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 Medical Decision Making Medical Decision Making MDM Narrative: 52 y/o male with history of chronic respiratory failure on supplemental O2, alcoholic cirrohsis, etoh use disorder, anxiety, T2DM with hx of b/l diabetic foot ulcers s/p multiple right transmetatarsal amputations, pancreatitis, hypertension, covid requiring tracheostomy and prolonged hospital stay, polysubstance abuse, LE compartment syndrome, chronic osteomyelitis of b/l feet presenting today via EMS change in mental status/altered behavior. Patient's exam did reveal he was somnolent but was able answer questions appropriately, he is oriented to person place, he is refusing care and is requesting to leave the emergency department. I suspect that the patient has used drugs however he does not want any help with his polysubstance use disorder and is requesting to leave the emergency department. At this time, believe the patient's competent understand the risks and benefits of leaving. I did urge him to stay here in the emergency department so we could of observe him however he wants to leave therefore he was allowed to leave against medical advice. Differential Diagnosis Differential Diagnoses: The differential diagnosis associated with the presentation includes Differential diagnosis includes was not limited to opiate use disorder, electrolyte abnormality, alcohol intoxication Discharge Plan Discharge Clinical Impression: Altered behavior Patient Disposition: Home, Self-Care Additional Instructions: You were brought to the emergency department for altered mental status/behavior. You received Narcan intranasally. I offered to further evaluate you and observe you in the emergency department, however you refused and wanted to leave the emergency department . Therefore your being discharged. If you change your mind and you want help, please return to the emergency department and we will re-evaluate you. Continue taking medications as prescribed by your providers. Follow-up with your doctor in 2 days. Please return to the emergency department if your symptoms get worse or if you develop any symptoms that are concerning to you. Prescriptions: No Action atorvastatin 40 mg tablet 1 tab PO BEDTIME Qty: 30 0RF gabapentin 600 mg tablet 1 tab PO TID Qty: 21 0RF amlodipine 5 mg Tablet 5 mg PO DAILY Qty: 30 0RF Protocol: Hold for SBP< HOLD for SBP < : 90 (DME) blood-glucose meter [SolarReserveStyle Flash System] Kit See Rx Instructions .Route Qty: 1 0RF Rx Instructions: As directed insulin lispro 100 unit/mL insulin pen 10 unit subcut TID Qty: 15 0RF insulin glargine [Lantus Solostar U-100 Insulin] 100 unit/mL (3 mL) insulin pen 60 unit subcut QPM Qty: 15 0RF clonazepam [Klonopin] 2 mg tablet 2 mg PO BID 5 Days Qty: 10 0RF clonidine HCl 0.2 mg tablet 0.2 mg PO TID 30 Days Qty: 90 0RF lisinopril 20 mg tablet 20 mg PO DAILY 30 Days Qty: 30 0RF (DME) free style lite glucometer See Rx Instructions .Route .MEDSUPPLY Qty: 1 0RF Rx Instructions: As directed (DME) free style lite test strips See Rx Instructions .Route .MEDSUPPLY Qty: 1 0RF Rx Instructions: As directed (DME) lancets See Rx Instructions .Route .MEDSUPPLY Qty: 1 0RF Rx Instructions: As directed methadone [Methadone Intensol] 10 mg/mL Concentrate 122 mg PO DAILY quetiapine 100 mg tablet 1 tab PO BID doxycycline hyclate 100 mg tablet 100 mg PO BID 14 Days Qty: 28 0RF levofloxacin 750 mg tablet 750 mg PO DAILY 14 Days Qty: 14 0RF
[2023-03-27 20:56] VITALS: BP 102/62; PULSE 72; O2SAT 99
[2023-03-27 20:57] VITALS: PULSE 70; RESP 20; O2SAT 100; BMI 31.3
--- NOTE | 2023-03-27 21:05 | PC.NURSE ---
at bedside assessing pt immediately upon arrival to ED. pt refusing all interventions and does not want to stay in the hospital. MD Castellanos at bedside aware that patient wants to leave. putting in discharge for pt. pt has walker that he uses at baseline. pt refusing vital signs at this time.
--- NOTE | 2023-03-27 21:07 | PC.NURSE ---
pt refused all interventions while here in the ED. requesting to leave. this RN went to explain discharge instructions, pt threw paper back at this RN. states would you just leave me alone!
== END 2023-03-27 21:11 | disposition home or self-care (01) ==
LOC: HO.ED 21:08
PROVIDERS: Emergency Provider Emergency Medicine Emergency Medical Services
DX: R41.82 Altered mental status, unspecified (principal); J44.9 Chronic obstructive pulmonary disease, unspecified; R53.83 Other fatigue; F14.10 Cocaine abuse, uncomplicated; Z99.81 Dependence on supplemental oxygen; Z79.899 Other long term (current) drug therapy; Z71.51 Drug abuse counseling and surveillance of drug abuser
CPT/HCPCS: 99284; 99285

== ENCOUNTER 2023-10-27 22:49 | Inpatient (IN) | payer MEDICAID, OTHER, SELFPAY ==
--- NOTE | ~2023-10-27 | US_ITS ---
EXAMINATION: US RETROPERITONEAL LIMITED (RENAL ONLY) CLINICAL INFORMATION: Acute kidney injury. COMPARISON: CT abdomen and pelvis dated 07/26/2022. TECHNIQUE: Real-time imaging of the kidneys. FINDINGS: RIGHT KIDNEY: 10.6 x 6.0 x 5.5 cm (SAG x AP x TRV). The kidney is normal in size, contour, and echogenicity. Renal cortical thickness is normal. No calculi or focal parenchymal lesions. No hydronephrosis. LEFT KIDNEY: 10.7 x 5.6 x 4.3 cm (SAG x AP x TRV). The kidney is normal in size, contour, and echogenicity. Renal cortical thickness is normal. No calculi or focal parenchymal lesions. No hydronephrosis. US/US renal BI IMPRESSION: Unremarkable examination.
--- NOTE | ~2023-10-27 | XR_ITS ---
EXAMINATION: XR FOOT, RIGHT CLINICAL INFORMATION: History of amputation. Wound on the stub. COMPARISON: Right foot December 02, 2022 TECHNIQUE: AP and lateral views of the right foot. FINDINGS: Status post amputation of the toes. Surgical clips over the soft tissues at the amputation site. There is edema at the plantar side of the foot. There is loss of bone, a focal erosion at the plantar surface of the cuboid best appreciated on the lateral view. This is new since prior study. This is suspicious for osteomyelitis. XR/XR foot RT 2V IMPRESSION: 1. Loss of bone at the plantar surface of the cuboid suspicious for osteomyelitis. MRI would be helpful for further evaluation. 2. Soft tissue swelling at the plantar side of foot.
--- NOTE | ~2023-10-27 | CT_ITS ---
EXAMINATION: CT HEAD WITHOUT CONTRAST CLINICAL INFORMATION: Altered mental status COMPARISON: CT angiography head and neck 08/15/2022. TECHNIQUE: Contiguous axial imaging was performed from the skull base to vertex without intravenous administration of contrast. This CT examination was performed using dose optimization techniques as appropriate, variously including the following: *Automated exposure control *Adjustment of mA and/or kV according to patient size (this includes techniques or standardized protocols for targeted exams where dose is matched to indication/reason for exam; i.e. extremities or head) *Use of iterative reconstruction technique DLP: 830 mGy-cm FINDINGS: Mild diffuse commensurate prominence of ventricles and sulci is noted. No intracranial hemorrhage, tumors or acute infarcts visualized. The orbits and globes are normal in appearance. No significant opacification of the visualized paranasal sinuses, mastoid air cells and middle ear cavities. CT/CT head/brain wo IV con IMPRESSION: No acute intracranial abnormalities.
--- NOTE | ~2023-10-27 | XR_ITS ---
EXAMINATION: XR FOOT, LEFT CLINICAL INFORMATION: Wound on the foot. COMPARISON: Left foot December 02, 2022. Left foot August 05, 2022 TECHNIQUE: AP and lateral views of the left foot. FINDINGS: There has been progressive bone loss of the proximal fifth metatarsal since prior exam. This segment of bone was abnormal on the prior exam as well. Findings consistent with changes related to osteomyelitis. Small residual thin fragment of bone of the proximal shaft of the metatarsal ureter remains. Chronic changes of the fourth metatarsal with loss of bone of the metatarsal remains similar prior exam. Orthopedic staple in the first metatarsal. There are 2 orthopedic screws in the hindfoot. Chronic deformity of the calcaneus similar prior study. There is soft tissue edema of the medial side of the foot and ankle and at the plantar soft tissues near the arch of the foot. Possible small air collection in the plantar soft tissues as well. There is a new ovoid density in this area in the soft tissues of the plantar side of the foot measuring about 1.7 cm x 0.5 cm. This was not evident on the prior study of 2022. There is loss of the plantar arch. XR/XR foot LT 2V IMPRESSION: 1. Progressive bone loss of the proximal fifth metatarsal consistent with osteomyelitis. 2. Chronic changes of the fourth metatarsal and calcaneus. 3. Orthopedic staple in the first metatarsal. 4. Edema in the soft tissues of the ankle and midfoot. Possible air collection in the soft tissues plantar side of the foot. CT may be helpful for further evaluation
--- NOTE | ~2023-10-27 | US_ITS ---
EXAMINATION: Noninvasive assessment of the bilateral lower extremities with ARTERIAL DUPLEX and ANKLE BRACHIAL INDICES (ABIs). CLINICAL INFORMATION: Peripheral vascular disease, left foot wound TECHNIQUE: Duplex Doppler techniques with waveform analysis and measurement of velocities in the bilateral common femoral, profunda femoris, superficial femoral, popliteal and tibial arteries were performed. Additionally, ankle pulse volume recordings, ankle pressure measurements and ankle brachial indices were obtained of the lower extremity arterial system bilaterally. The study was performed only at rest. COMPARISON: None FINDINGS: DIRECT DUPLEX DOPPLER FINDINGS: RIGHT LEG: Common femoral artery: 137 cm/s, phasicity: Triphasic Profunda femoris artery: 87.1 cm/s, phasicity: Triphasic Superficial femoral artery (proximal): 92 cm/s, phasicity: Triphasic Superficial femoral artery (mid): 94 cm/s, phasicity: Triphasic Superficial femoral artery (distal): 70 cm/s, phasicity: Triphasic Popliteal artery: 87 cm/s, phasicity: Triphasic Posterior tibial artery: 122 cm/s, phasicity: Triphasic Peroneal artery: Not visualized Anterior tibial artery: 65 cm/s, phasicity: Triphasic Dorsalis pedis artery: 13.9 cm/s, phasicity:Monophasic LEFT LEG: Common femoral artery: 99 cm/s, phasicity: Triphasic Profunda femoris artery: 67 cm/s, phasicity: Triphasic Superficial femoral artery (proximal): 91 cm/s, phasicity: Triphasic Superficial femoral artery (mid): 114 cm/s, phasicity: Triphasic Superficial femoral artery (distal): 85 cm/s, phasicity: Triphasic Popliteal artery: 120 cm/s, phasicity: Triphasic Posterior tibial artery: 98 cm/s, phasicity: Triphasic Peroneal artery: Not visualized Anterior tibial artery: 125 cm/s, phasicity: Triphasic Dorsalis pedis artery: 40 cm/s, phasicity: Monophasic ANKLE-BRACHIAL INDEX: Right: 1.21? Left: 1.22 ANKLE PRESSURES: Right: PT 164, DP 145 Left: PT?165, DP?157 ANKLE PVR WAVEFORMS: Right: Abnormal Left: Normal US/US JANICE complete IMPRESSION: Right leg: Normal ankle brachial index. Patent arterial flow within the right lower extremity without significant arterial stenosis or occlusion Left leg: Normal ankle brachial index. Patent arterial flow within the left lower extremity without significant arterial stenosis or occlusion JANICE Reference: - >1.4 = calcified vessels - 0.9 - 1.4 = normal - no significant arterial disease - 0.7 - 0.89 = mild peripheral arterial disease - 0.51 - 0.69 = moderate peripheral arterial disease - ? 0.50 = severe peripheral arterial disease - < .30 = critical arterial disease
--- NOTE | ~2023-10-27 | US_ITS ---
EXAMINATION: Noninvasive assessment of the bilateral lower extremities with ARTERIAL DUPLEX and ANKLE BRACHIAL INDICES (ABIs). CLINICAL INFORMATION: Peripheral vascular disease, left foot wound TECHNIQUE: Duplex Doppler techniques with waveform analysis and measurement of velocities in the bilateral common femoral, profunda femoris, superficial femoral, popliteal and tibial arteries were performed. Additionally, ankle pulse volume recordings, ankle pressure measurements and ankle brachial indices were obtained of the lower extremity arterial system bilaterally. The study was performed only at rest. COMPARISON: None FINDINGS: DIRECT DUPLEX DOPPLER FINDINGS: RIGHT LEG: Common femoral artery: 137 cm/s, phasicity: Triphasic Profunda femoris artery: 87.1 cm/s, phasicity: Triphasic Superficial femoral artery (proximal): 92 cm/s, phasicity: Triphasic Superficial femoral artery (mid): 94 cm/s, phasicity: Triphasic Superficial femoral artery (distal): 70 cm/s, phasicity: Triphasic Popliteal artery: 87 cm/s, phasicity: Triphasic Posterior tibial artery: 122 cm/s, phasicity: Triphasic Peroneal artery: Not visualized Anterior tibial artery: 65 cm/s, phasicity: Triphasic Dorsalis pedis artery: 13.9 cm/s, phasicity:Monophasic LEFT LEG: Common femoral artery: 99 cm/s, phasicity: Triphasic Profunda femoris artery: 67 cm/s, phasicity: Triphasic Superficial femoral artery (proximal): 91 cm/s, phasicity: Triphasic Superficial femoral artery (mid): 114 cm/s, phasicity: Triphasic Superficial femoral artery (distal): 85 cm/s, phasicity: Triphasic Popliteal artery: 120 cm/s, phasicity: Triphasic Posterior tibial artery: 98 cm/s, phasicity: Triphasic Peroneal artery: Not visualized Anterior tibial artery: 125 cm/s, phasicity: Triphasic Dorsalis pedis artery: 40 cm/s, phasicity: Monophasic ANKLE-BRACHIAL INDEX: Right: 1.21? Left: 1.22 ANKLE PRESSURES: Right: PT 164, DP 145 Left: PT?165, DP?157 ANKLE PVR WAVEFORMS: Right: Abnormal Left: Normal US/US arterial duplex LE BI IMPRESSION: Right leg: Normal ankle brachial index. Patent arterial flow within the right lower extremity without significant arterial stenosis or occlusion Left leg: Normal ankle brachial index. Patent arterial flow within the left lower extremity without significant arterial stenosis or occlusion JAINCE Reference: - >1.4 = calcified vessels - 0.9 - 1.4 = normal - no significant arterial disease - 0.7 - 0.89 = mild peripheral arterial disease - 0.51 - 0.69 = moderate peripheral arterial disease - ? 0.50 = severe peripheral arterial disease - < .30 = critical arterial disease
--- NOTE | ~2023-10-27 | IR_ITS ---
CLINICAL HISTORY: IV antibiotics PROCEDURES: 1. Real-time ultrasound-guided access into the right basilic vein after documentation of selected vessel patency, and permanent imaging storing in the patient record. 2. Placement of a 4 fr 37 cm, single-lumen power PICC CLINICIANS: Josep Caba PA-C MEDICATIONS: -Lidocaine 1% 10 mL SQ. -Antibiotics: None. Complications: None. Estimated blood loss: <5 ml Specimens: None. Contrast: None. Fluoroscopy time: 0.8 min Procedure note: The procedure, risks, benefits, and alternatives were carefully explained to the patient and written informed consent was obtained. The patient was placed supine on the fluoroscopy table. A timeout was performed. The right arm was prepped and draped in usual sterile fashion. Using ultrasound and fluoroscopic guidance, venous access was achieved into the basilic vein with a micropuncture set. A peel-away sheath was advanced over the wire. The 0.018 inch wire was advanced into the right atrium. A 4 fr, 37 cm, single lumen power PICC was advanced over the wire, with its tip in the the cavoatrial junction. The wire was removed. The catheter was tested and secured with a 3-0 proline suture. A dry sterile dressing was applied. A permanent ultrasound image and chest fluoroscopic image was saved to PACS. The patient was stable after the procedure and was transferred to the floor. FINDINGS: 1. Patent right basilic vein 2. Placement of a 4 fr 37 cm, single lumen power PICC IR/IR cvc insert peripheral IMPRESSION: Placement of a 4 fr 37 cm, single lumen power PICC PLAN: -The catheter may be used immediately. This procedure was performed by Josep Caba PA-C, and directly supervised by Dr. Chapman
--- NOTE | ~2023-10-27 | CT_ITS ---
EXAMINATION: CT LEFT FOOT WITHOUT CONTRAST CLINICAL INFORMATION: Wound on the foot. COMPARISON: X-ray 11/09/2023, 12/02/2022. TECHNIQUE: Axial imaging. Sagittal and coronal reconstructions. FINDINGS: There is a soft tissue wound along the plantar/lateral aspect of the midfoot. There is air in the lateral soft tissues. There is swelling and edema in the underlying lateral soft tissues, extending to the underlying bone. Findings are suggestive of cellulitis. No organized fluid collection or abscess is evident on this noncontrast study. There is a small residual thin fragment of bone of the fifth metatarsal remaining. There is a bony irregularity of the residual fourth metatarsal. Small ossific density in the plantar/lateral soft tissues as well. Findings are suspicious for osteomyelitis. Postoperative changes, with staple in the first metatarsal, orthopedic screw in the calcaneus, and the talus. The soft tissue edema extends to the lateral aspect of the calcaneus. There is irregularity of the distal calcaneus, and osteomyelitis cannot be excluded. There is an os peroneum present, with edema extending to it. No erosive changes identified in the os peroneum. There is circumferential soft tissue swelling and subcutaneous edema/cellulitis. No organized fluid collection is seen. CT/CT foot LT wo IV con IMPRESSION: 1. Soft tissue wound in the plantar/lateral aspect of the midfoot. There is air in the underlying soft tissues. There is extensive edema present, likely reflecting cellulitis. No organized fluid collection or abscess is seen. 2. Abnormal findings in residual fifth metatarsal, and the fourth metatarsal, suspicious for osteomyelitis. 3. The edema appears to extend to the region of the distal calcaneus. There is bony irregularity of the calcaneus. Involvement by osteomyelitis cannot be excluded. 4. Further evaluation with MRI without and with contrast as clinically indicated.
[2023-10-27 23:02] VITALS: BP 128/76; PULSE 112; O2SAT 96
[2023-10-28 00:15] VITALS: BP 141/82; PULSE 107; RESP 20; TEMP 36.7; O2SAT 95; BMI 27.1
[2023-10-28 01:42] LABS: MANUAL DIFF FLAG NO
[2023-10-28 01:43] LABS: Basophils Percent Auto 0.4 % (0-2); Hematocrit 41.1 % (42.0-52.0); Hemoglobin 13.6 g/dl (14.0-18.0); Imm Gran Abs Auto 0.03 X10*3/uL (0.00-0.03); Imm Gran Pct Auto 0.3 % (0.0-0.4); Lymphocytes Absolute Auto 1.1 X10*3/uL (1.2-4.9); Lymphocytes Percent Auto 12.1 % (20-40); Mean Corpuscular HGB Conc 33.1 g/dl (31.0-36.0); Mean Corpuscular Hemoglobin 28.5 pg (27.0-33.0); Monocytes Absolute Auto 0.7 X10*3/uL (0.1-1.2); Monocytes Percent Auto 7.5 % (2-11); Neutrophils Absolute Auto 7.2 x10*3/uL (2.0-8.3); Neutrophils Percent Auto 79.7 % (45-73); Platelet Count 195 X10*3/uL (160-400); Red Blood Count 4.78 X10*6/uL (4.60-5.80); Red Cell Distribution Width 15.3 % (11.0-16.0); White Blood Count 9.1 X10*3/uL (4.8-10.8)
[2023-10-28 01:53] LABS: Glucose, Whole Blood 291 mg/dL (60-115)
[2023-10-28 02:11] LABS: Alanine Aminotransferase 27 U/L (0-40); Albumin Level 4.4 g/dL (3.5-5.0); Alkaline Phosphatase 161 U/L (39-117); Anion Gap 21 (12-20); Aspartate Amino Transferase 34 U/L (5-37); Bilirubin Total 0.6 mg/dL (0.0-1.0); Blood Urea Nitrogen 20 mg/dL (9-16); Carbon Dioxide 20 mmol/L (22-29); Chloride 104 mmol/L (96-108); Creatinine Clr Calc Pharmacy 69.1; Estimated Glomerular Filt Rate 56; Glucose Random 311 mg/dL (60-115); Potassium 4.6 mmol/L (3.3-5.1); Sodium 140 mmol/L (135-145); Total Protein 8.7 g/dL (6.5-8.0)
[2023-10-28 04:16] VITALS: BP 118/72; PULSE 79; RESP 18; TEMP 36.6; O2SAT 95
--- NOTE | 2023-10-28 04:47 | ED_ITS ---
HPI - General Adult General Chief complaint: Extremity Problem Stated complaint: right foot pain, osteomyelitis Time Seen by Provider: 10/28/23 04:47 History of Present Illness HPI narrative: Year-old male with multiple medical problems including diabetes and oxygen dependence. He comes to the hospital by ambulance. Patient says that he was just released from the [facility] facility. Apparently he was discharged from the [facility] re[facility] facility on October 26. It is not clear how he got back to [place] but I believe he called an ambulance from [facility] in [place] and was brought to the emergency room here. The patient says that he had been at [facility] prior to facility. I contacted the [facility] rehab facility and was told that the patient has been admitted to that facility on May [id number] (yesterday). The patient says that he had no place to go and was tired because he was carrying all his belongings and had made his right leg ache. Related Data Home Medications ?Medication ?Instructions ?Recorded ?Confirmed methadone 10 mg/mL oral 122 mg PO DAILY 04/25/22 08/05/22 concentrate (Methadone Intensol) quetiapine 100 mg tablet 1 tab PO BID 08/05/22 08/05/22 Previous Rx's ?Medication ?Instructions ?Recorded amlodipine 5 mg tablet 5 mg PO DAILY #30 tabs 06/08/22 atorvastatin 40 mg tablet 1 tab PO BEDTIME #30 tabs 06/08/22 blood-glucose meter (FreeStyle #1 ea 06/08/22 Flash System kit) gabapentin 600 mg tablet 1 tab PO TID #21 tabs 06/08/22 insulin lispro 100 unit/mL 10 unit (0.1 mL) subcut TID #15 mL 06/08/22 subcutaneous pen clonazepam 2 mg tablet (Klonopin) 2 mg PO BID 5 days #10 tabs 07/26/22 clonidine HCl 0.2 mg tablet 0.2 mg PO TID 30 days #90 tabs 07/26/22 free style lite glucometer #1 ea 07/26/22 free style lite test strips #1 ea 07/26/22 insulin glargine 100 unit/mL (3 60 unit (0.6 mL) subcut QPM #15 mL 07/26/22 mL) subcutaneous pen (Lantus Solostar U-100 Insulin) lancets #1 ea 07/26/22 lisinopril 20 mg tablet 20 mg PO DAILY 30 days #30 tabs 07/26/22 doxycycline hyclate 100 mg tablet 100 mg PO BID 14 days #28 tabs 08/19/22 levofloxacin 750 mg tablet 750 mg PO DAILY 14 days #14 tabs 08/19/22 Allergies Allergy/AdvReac Type Severity Reaction Status Date / Time prochlorperazine Allergy Intermediate Hives Verified 10/28/23 00:18 [From Compazine] aspirin [ASA] Allergy Unknown HIVES Verified 10/28/23 00:18 naproxen [From NAPROSYN] Allergy Unknown HIVES Verified 10/28/23 00:18 NSAIDS (Non-Steroidal Allergy Unknown HIVES Verified 10/28/23 00:18 Anti-Inflamma [NSAIDS (NON-STEROIDAL ANTI-INFLAMMA] Penicillins [PENICILLINS] Allergy Unknown HIVES Verified 10/28/23 00:18 Review of Systems 2 Review of Systems: Yes all other systems are reviewed and are negative PMFSH Past Medical History Medical History Diabetes type 2 with atherosclerosis of arteries of extremities Opioid use disorder Ulcer of left foot 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 Do you presently have visiting nurse or other home services: No Unable to assess alcohol history related to: Refusing to respond Alcohol intake: current Alcohol intake frequency: a few times a month Alcohol type: hard liquor Comment: pt refused bed alarm Patient Tobacco Use Status: Never used Tobacco e-Cigarette/Vaping Use: Never Used Second Hand Smoke Exposure: No Substance Use Type: Crack/Cocaine Advance Directives: Yes Advance Directives on File: Yes Advance Directives Date on File: 05/19/22 service: No Current occupational status: disabled Physical Exam ED Vital Signs: Vital Signs - 24 hr 10/28/23 00:15 10/28/23 04:16 10/28/23 06:15 Temperature 98.0 F 97.8 F 98.1 F Pulse Rate 107 H 79 80 Respiratory Rate 20 18 20 Blood Pressure 141/82 H 118/72 122/76 Pulse Oximetry 95 95 96 Oxygen Delivery Method Nasal Cannula Nasal Cannula Nasal Cannula Oxygen Flow Rate 2 2 BMI result Body Mass Index 27.1 Const Other: The patient is a 53-year-old male who looks quite disheveled. He was on nasal oxygen. He was very somnolent. He arouses with loud verbal stimuli but was not very communicative. HENMT Other: Face is symmetrical. Mucous membranes moist. Airway clear. Eyes Other: Pupils are round equal, conjunctivae clear Neck Other: Moving his neck easily, no JVD Resp Effort & Inspection: normal respiratory effort Auscultation: clear to auscultation bilaterally Cardio Rate: regular rate Rhythm: regular rhythm Heart sounds: S1 normal heart sound present and S2 normal heart sound present GI Other: Abdomen is soft and nontender Skin Other: Skin is dry and unremarkable. There is a very small area of nonintact skin on the medial aspect of the patient's right foot. This has the appearance of a chronic wound. There is no erythema. Neuro Other: The patient was very drowsy as if sedated. He aroused with verbal stimuli but was not really able to engage in meaningful conversation. He had no facial asymmetry. He seemed to move his extremities symmetrically. Extrem Other: The patient has a partial amputation of his right foot. There is a very small area of nonintact skin on the medial aspect of the foot that looks like a chronic wound which is not associated with any erythema or drainage. There is a good dorsalis pedis pulse in the foot. Medical Decision Making Medical Decision Making MDM Narrative: The patient is a 53-year-old male with a history of osteomyelitis of the right foot and foot ulcers. He was last medically hospitalized as far as I can tell at [facility] in April of 2023. He was discharged with a plan for ongoing antibiotics to the [facility]. According to the discharge summary from [facility] IV antibiotics were supposed to stop at the end of May. I believe the patient has been living at the rehab facility since then and he was discharged yesterday on October 26. I believe this was a planned discharge according to a staff member at the rehab facility I spoke with. As far as I can tell the patient returned to [place] and then called an ambulance and was brought to the hospital. The patient is somnolent and he seems sedated as if high. He is apparently normally on methadone. At the moment I think the patient seems to be high on some kind of drugs. I am not really able to get a significant history from him. He is afebrile. He does not have an elevated white count, his chemistries are unremarkable.. Clinically his foot does not seem obviously acutely infected but his exam is limited by his somnolence. I have asked case management to help evaluate the patient's social situation. I think the patient will likely need to be observed until he is able to give a better history. The patient was signed out to the [facility] emergency physician this morning at change of shift. Lab Data 10/28/23 01:23 10/28/23 01:23 Labs: Lab Results 10/28/23 10/28/23 Range/Units 01:23 01:44 WBC 9.1 (4.8-10.8) X10*3/uL RBC 4.78 (4.60-5.80) X10*6/uL Hgb 13.6 L D (14.0-18.0) g/dl Hct 41.1 L D (42.0-52.0) % MCV 86.0 (80.0-98.0) fL MCH 28.5 (27.0-33.0) pg MCHC 33.1 (31.0-36.0) g/dl RDW 15.3 (11.0-16.0) % Plt Count 195 (160-400) X10*3/uL MPV 9.0 L (9.4-12.4) fL Immature Gran % (Auto) 0.3 (0.0-0.4) % Neut % (Auto) 79.7 H (45-73) % Lymph % (Auto) 12.1 L (20-40) % [place] % (Auto) 7.5 (2-11) % Eos % (Auto) 0.0 (0-4) % Baso % (Auto) 0.4 (0-2) % Lymph # (Auto) 1.1 L (1.2-4.9) X10*3/uL [place] # (Auto) 0.7 (0.1-1.2) X10*3/uL Eos # (Auto) 0.0 (0.0-0.4) X10*3/uL Baso # (Auto) 0.0 (0.0-0.2) X10*3/uL Abs Immat Gran (auto) 0.03 (0.00-0.03) X10*3/uL Absolute Neuts (auto) 7.2 (2.0-8.3) x10*3/uL Absolute Nucleated RBC 0.000 (0.0-0.012) X10*3/uL Nucleated RBC % (auto) 0.0 (0.0-0.2) /100WBC Sodium 140 (135-145) mmol/L Potassium 4.6 (3.3-5.1) mmol/L Chloride 104 (96-108) mmol/L Carbon Dioxide 20 L (22-29) mmol/L Anion Gap 21 H (12-20) BUN 20 H (9-16) mg/dL Creatinine 1.34 (0.5-1.4) mg/dL Estim Creat Clear Calc 69.1 Estimated GFR 56 POC Glucose 291 H (60-115) mg/dL Random Glucose 311 H (60-115) mg/dL Calcium 10.0 (8.4-10.2) mg/dL Total Bilirubin 0.6 (0.0-1.0) mg/dL AST 34 (5-37) U/L ALT 27 (0-40) U/L Alkaline Phosphatase 161 H (39-117) U/L Total Protein 8.7 H (6.5-8.0) g/dL Albumin 4.4 (3.5-5.0) g/dL Discharge Plan Discharge Clinical Impression: Somnolence, Opioid use disorder, History of osteomyelitis Patient Disposition: Still a Patient Prescriptions: No Action atorvastatin 40 mg tablet 1 tab PO BEDTIME Qty: 30 0RF gabapentin 600 mg tablet 1 tab PO TID Qty: 21 0RF amlodipine 5 mg Tablet 5 mg PO DAILY Qty: 30 0RF Protocol: Hold for SBP< HOLD for SBP < : 90 (DME) blood-glucose meter [FreeStyle Flash System] Kit See Rx Instructions .Route Qty: 1 0RF Rx Instructions: As directed insulin lispro 100 unit/mL insulin pen 10 unit subcut TID Qty: 15 0RF insulin glargine [Lantus Solostar U-100 Insulin] 100 unit/mL (3 mL) insulin pen 60 unit subcut QPM Qty: 15 0RF clonazepam [Klonopin] 2 mg tablet 2 mg PO BID 5 Days Qty: 10 0RF clonidine HCl 0.2 mg tablet 0.2 mg PO TID 30 Days Qty: 90 0RF lisinopril 20 mg tablet 20 mg PO DAILY 30 Days Qty: 30 0RF (DME) free style lite glucometer See Rx Instructions .Route .MEDSUPPLY Qty: 1 0RF Rx Instructions: As directed (DME) free style lite test strips See Rx Instructions .Route .MEDSUPPLY Qty: 1 0RF Rx Instructions: As directed (DME) lancets See Rx Instructions .Route .MEDSUPPLY Qty: 1 0RF Rx Instructions: As directed methadone [Methadone Intensol] 10 mg/mL Concentrate 122 mg PO DAILY quetiapine 100 mg tablet 1 tab PO BID doxycycline hyclate 100 mg tablet 100 mg PO BID 14 Days Qty: 28 0RF levofloxacin 750 mg tablet 750 mg PO DAILY 14 Days Qty: 14 0RF Print Language: Latvian
[2023-10-28 06:15] VITALS: BP 122/76; PULSE 80; RESP 20; TEMP 36.7; O2SAT 96
--- NOTE | 2023-10-28 07:38 | PC.NURSE ---
pt currently asleep/resting in no apparent distress. pt remains on 2L via NC. no sob/wob shown. respirations even and unlabored. lights dimmed. pt pending CM consult. plan of care ongoing. call toth placed within reach.
[2023-10-28 10:00] VITALS: BP 117/62; PULSE 73; RESP 20; TEMP 36.3; O2SAT 97
--- NOTE | 2023-10-28 14:27 | PC.NURSE ---
pt still pending case management consult at this time. resting comfortably in no apparent distress w/ the lights dimmed. no sob/wob noted. respirations even and unlabored. plan of care ongoing. call toth placed within reach.
[2023-10-28 15:24] LABS: Glucose, Whole Blood 180 mg/dL (60-115)
--- NOTE | 2023-10-28 15:24 | PC.NURSE ---
attempted to speak w/ pt in regards to completing medication reconciliation. pt agitated when speaking w/ this RN. pt not able to answer questions/respond to commands appropriately. POC obtained displaying 181 mg/dL. provider notified/aware. no sob/wob noted. respirations even and unlabored. plan of care ongoing.
--- NOTE | 2023-10-28 15:35 | PC.NURSE ---
pt to CT at this time.
[2023-10-28 16:42] VITALS: BP 122/59; PULSE 78; RESP 16; TEMP 36.4; O2SAT 94
[2023-10-28 20:13] LABS: Amphetamine Screen Urine Not Detected (Not Detect); Barbiturates, Urine Not Detected (Not Detect); Benzodiazepines Screen Urine POSITIVE (Not Detect); Buprenorphine Scr Not Detected (Not Detect); Cannabinoid Screen Urine Not Detected (Not Detect); Cocaine Screen Urine POSITIVE (Not Detect); Fentanyl, urine POSITIVE (Not Detect); Methadone Screen, Urine Positive (Not Detect); Opiate Screen Urine Not Detected (Not Detect); Oxycodone Screen Urine Not Detected (Not Detect); Phencyclidine Screen Urine Not Detected (Not Detect)
[2023-10-28 20:19] VITALS: BP 124/60; PULSE 76; RESP 18; TEMP 36.6
[2023-10-29 06:21] VITALS: BP 145/90; PULSE 84; RESP 16; TEMP 36.6; O2SAT 96
[2023-10-29 07:52] LABS: Glucose, Whole Blood 251 mg/dL (60-115)
[2023-10-29 08:00] VITALS: BP 98/62; PULSE 82; RESP 18; TEMP 36.6; O2SAT 97
--- NOTE | 2023-10-29 13:09 | MHC.CM.ED ---
Received case management consult from Dr Cohn. Patient was d/c'd from [facility] on 04/23/23 to [facility]. On 10/27/23, patient was d/c'd from [facility]. Patient ended up in ER due to foot pain. Work up essentially negative. Physical therapy eval is unavailable until Sunday 10/29. However, staff has witnessed patient ambulate from his room in the ER to the bathroom with his rollator walker. Patient's urine tox screen was positive for methadone, fentanly, benzos and cocaine. Met with patient in regards to discharge planning. Patient states he was d/c'd from [facility] and was brought to [facility], even though they were closed. Patient states EMS had to drop me off there because that place in [place] didnt' care. Patient states he used drugs because I was in so much pain. Patient ended up in the ER after that. Patient states he only used drugs 1 time in the past year. T/W reminded patient that he was found to actively be using drugs while inpatient at [facility] in February 2023. T/W also explained this would be more than 1 time drug use in 1 year. Patient agrees with that statement and states This is all my mother's fault. She should have pulled the plug when I had Covid. Now I'm homeless and on oxygen. Patient states her mother is due to breast cancer but isn't able to verbalize when she passed. T/W explained SNF placement would be difficult to find because of active drug use. Patient stated but I can't walk . T/W reminded patient that he ambulated to the bathroom with his walker. Patient stated No I didn't. I've been uses the urinal. Mary HORAN brought into patient's room to verify patient has ambulated to the bathroom with his rollator walker. Patient states yes I can walk. Nursing Home list offered. Patient stated he can't go to a usp because he is on oxygen. T/W was attempting to discuss other discharge options when patient stated [facility] and I'll throw myself off a bridge . SIGRID Regan made aware and will order Care Team consult. Recovery team will also be asked to see patient. Per patient's discharge paperwork, patient was d[facility]c'd to [facility] at [address] [place] [address] in [place]. T/W has tried to reach out to [facility] for more information about d/c. However, staff is not available to offer any additional collateral at this time. From Case Management perspective, there are no other services that case management will be able to provide. Patient had housing arranged at [address] [place] [address]. Patient doesn't want to return to [facility]. Patient actively used drugs when out of rehab for less than 1 day. Patient did not accept usp list. Shereen MATTA aware.
--- NOTE | 2023-10-29 15:45 | HE.PHANOTE ---
METHADONE VERIFIED WITH [facility] [employer], DOSE 195 MG LAST DOSE CONFIRMED 10/27/23
[2023-10-29 16:06] VITALS: BP 99/58; PULSE 81; RESP 19; TEMP 36.6; O2SAT 97
[2023-10-29] MEDS: methADONE HCl 20 MG/2 ML ORAL.CONC 195 MG PO (16:14)
[2023-10-29] MEDS: cloNIDine HCL 0.2 MG TABLET PO ×2 (16:14→22:44)
[2023-10-29 16:15] LABS: Glucose, Whole Blood 427 mg/dL (60-115)
[2023-10-29] MEDS: Insulin Lispro 100 UNIT/ML 3 ML VIAL 20 UNIT SUBCUT (17:27)
[2023-10-29] MEDS: Insulin Lispro 100 UNIT/ML 3 ML VIAL SUBCUT (17:28)
[2023-10-29 22:33] LABS: Glucose, Whole Blood 70 mg/dL (60-115)
[2023-10-29] MEDS: Atorvastatin Calcium 40 MG TABLET PO (22:44)
[2023-10-29] MEDS: Gabapentin 300 MG CAPSULE 900 MG PO (22:44)
[2023-10-29] MEDS: QUEtiapine Fumarate 50 MG TABLET PO (22:44)
[2023-10-29 23:06] LABS: Glucose, Whole Blood 128 mg/dL (60-115)
[2023-10-29] MEDS: Insulin Glargine,Hum.rec.anlog 100 UNIT/ML 10 ML VIAL 42 UNIT SUBCUT (23:22)
[2023-10-30 00:55] VITALS: BP 115/60; PULSE 88; RESP 18; TEMP 36.8; O2SAT 96
[2023-10-30 01:09] LABS: Glucose, Whole Blood 216 mg/dL (60-115)
--- NOTE | 2023-10-30 05:55 | PC.NURSE ---
phone report provided to the OF nurse for transition.
[2023-10-30 06:39] LABS: Glucose, Whole Blood 258 mg/dL (60-115)
[2023-10-30] MEDS: methADONE HCl 20 MG/2 ML ORAL.CONC 195 MG PO (08:35)
[2023-10-30] MEDS: Gabapentin 300 MG CAPSULE 900 MG PO ×2 (08:35→21:53)
[2023-10-30] MEDS: Insulin Lispro 100 UNIT/ML 3 ML VIAL 20 UNIT SUBCUT ×2 (08:41→12:29)
[2023-10-30] MEDS: Insulin Lispro 100 UNIT/ML 3 ML VIAL SUBCUT ×2 (08:41→12:29)
[2023-10-30 08:58] VITALS: BP 115/60; PULSE 88; O2SAT 96
[2023-10-30 10:23] VITALS: BP 138/59
[2023-10-30] MEDS: QUEtiapine Fumarate 50 MG TABLET PO ×2 (10:23→21:53)
[2023-10-30] MEDS: cloNIDine HCL 0.2 MG TABLET PO ×2 (10:23→21:52)
[2023-10-30] MEDS: ALPRAZolam 0.5 MG TABLET 2 MG PO (10:24)
[2023-10-30] MEDS: lisinopriL 20 MG TABLET PO (10:25)
[2023-10-30 11:52] VITALS: BP 98/75; PULSE 81; RESP 14; TEMP 37; O2SAT 94
--- NOTE | 2023-10-30 12:16 | MHC.CM.PN ---
CM MET W/PT AT BEDSIDE TO DISCUSS DISPO PT REPORTS HE NEEDS MORE MONEY ON HIS CREDIT CARD, CM ATTEMPTED TO GET A HOLD OF THE [facility] [address] [facility] [address] PT HAS HISTORY OF LYING TO HOSPITAL STAFF HOWEVER CM UNABLE TO GET THROUGH TO [facility], [facility] OR [facility] TO VERIFY HOWEVER CM HAS BEEN UNABLE D/T HOLIDAY.
[2023-10-30 16:00] VITALS: BP 101/68; PULSE 68; RESP 14; O2SAT 95
[2023-10-30 16:50] LABS: Glucose, Whole Blood 77 mg/dL (60-115)
[2023-10-30 16:50] LABS: Glucose, Whole Blood 194 mg/dL (60-115)
[2023-10-30 20:22] VITALS: BP 115/64; PULSE 64; RESP 15; TEMP 36.4; O2SAT 98
[2023-10-30 21:27] LABS: Glucose, Whole Blood 115 mg/dL (60-115)
--- NOTE | 2023-10-30 21:29 | MHC.EDTECH ---
PATIENT ATE 2 SANDWICH AND DRANK 3 CANS OF SUDEEP ALESSANDRA FOR SNACK .
[2023-10-30] MEDS: Acetaminophen 325 MG TABLET 975 MG PO (21:52)
[2023-10-30] MEDS: Atorvastatin Calcium 40 MG TABLET PO (21:53)
--- NOTE | 2023-10-30 22:14 | PC.NURSE ---
pt medicated per MAR, pt very unhappy that his bedtime xanax pill was not included. provider was notified, will order
--- NOTE | 2023-10-30 22:20 | PC.NURSE ---
pt awake and alert, watching TV and eating at this time
[2023-10-30] MEDS: ALPRAZolam 0.5 MG TABLET 1 MG PO (22:42)
[2023-10-31] VITALS (7 sets, daily range): BP systolic 90–136; BP diastolic 43–71; PULSE 63–93; RESP 12–20; TEMP 36.3–36.7; O2SAT 96–100
[2023-10-31 07:29] LABS: Glucose, Whole Blood 277 mg/dL (60-115)
[2023-10-31] MEDS: QUEtiapine Fumarate 50 MG TABLET PO ×2 (08:27→21:38)
[2023-10-31] MEDS: ALPRAZolam 0.5 MG TABLET 2 MG PO (08:27)
[2023-10-31] MEDS: lisinopriL 20 MG TABLET PO (08:27)
[2023-10-31] MEDS: methADONE HCl 20 MG/2 ML ORAL.CONC 195 MG PO (08:27)
[2023-10-31] MEDS: Insulin Lispro 100 UNIT/ML 3 ML VIAL 20 UNIT SUBCUT (08:28)
[2023-10-31] MEDS: Insulin Lispro 100 UNIT/ML 3 ML VIAL SUBCUT ×3 (08:28→21:42)
[2023-10-31] MEDS: cloNIDine HCL 0.2 MG TABLET PO ×2 (08:31→21:38)
--- NOTE | 2023-10-31 09:59 | MHC.CM.ED ---
Addendum entered by Nhi Novak 10/31/23 12:35: Referral made to [facility] in [place]. Per Lyn HORAN, patient is not appropriate for their mcc. Addendum entered by Nhi Novak 10/31/23 10:27: D/C summary and case management social worker note from [facility] obtained. Patient was the one who insisted on being d/c'd to [facility] via taxi. Original Note: Patient remains in ER overflow. Spoke with [facility] at [facility] in [place]. They have no bed availability at this time. [employer] [facility] referral made. Physical therapy eval completed. Home with services is recommended. Continue to monitor for d/c needs.
[2023-10-31] MEDS: Gabapentin 300 MG CAPSULE 900 MG PO ×2 (10:11→21:40)
--- NOTE | 2023-10-31 10:44 | PC.NURSE ---
Addendum entered by Campbell Hui RN 10/31/23 11:40: informed md of bp recheck Addendum entered by Campbell Hui RN 10/31/23 10:58: Pt bp low around 1100, more drowsy than this AM. pt wakes up to voice and follows commands, A/Ox3, falls asleep immediately after interaction. MD informed. all other vitals WNL. pt stated he feels more tired than usual. Original Note: pt refused full dose of total 26u insulin lispro stating he only wants 10u. pt is a 1a w/ walker OOB to bathroom. pt noted to be drowsy this AM but awakens to voice and follows all commands, a/ox3. pt stated he is just tired.
[2023-10-31 14:14] LABS: Glucose, Whole Blood 167 mg/dL (60-115)
[2023-10-31 16:22] LABS: Glucose, Whole Blood 135 mg/dL (60-115)
--- NOTE | 2023-10-31 18:07 | MHC.EDTECH ---
Pt ate 100% of his dinner and 480cc of fluids.
[2023-10-31 20:53] LABS: Glucose, Whole Blood 321 mg/dL (60-115)
[2023-10-31] MEDS: Atorvastatin Calcium 40 MG TABLET PO (21:39)
[2023-10-31] MEDS: ALPRAZolam 0.5 MG TABLET 1 MG PO (21:39)
[2023-10-31] MEDS: Acetaminophen 325 MG TABLET 975 MG PO (21:40)
[2023-10-31] MEDS: Insulin Glargine,Hum.rec.anlog 100 UNIT/ML 10 ML VIAL 42 UNIT SUBCUT (21:41)
--- NOTE | 2023-10-31 21:49 | PC.NURSE ---
assumed care at 1900, pt oob with walker and 1 standby assist to help with ADL's. pt c/o 510 left LE pain medicated per AUG, bed alarmed for safety
[2023-11-01 06:08] VITALS: BP 103/62; PULSE 70; RESP 18; TEMP 36.4; O2SAT 99
[2023-11-01 07:55] LABS: Glucose, Whole Blood 204 mg/dL (60-115)
[2023-11-01 08:08] VITALS: BP 161/80
[2023-11-01] MEDS: ALPRAZolam 0.5 MG TABLET 2 MG PO (08:08)
[2023-11-01] MEDS: lisinopriL 20 MG TABLET PO (08:08)
[2023-11-01] MEDS: QUEtiapine Fumarate 50 MG TABLET PO ×2 (08:08→22:28)
[2023-11-01] MEDS: Acetaminophen 325 MG TABLET 975 MG PO ×2 (08:09→22:28)
[2023-11-01] MEDS: cloNIDine HCL 0.2 MG TABLET PO (08:09)
[2023-11-01] MEDS: Insulin Lispro 100 UNIT/ML 3 ML VIAL SUBCUT ×2 (08:09→12:08)
[2023-11-01] MEDS: methADONE HCl 20 MG/2 ML ORAL.CONC 195 MG PO (08:10)
[2023-11-01 08:20] VITALS: BP 161/80; PULSE 85; RESP 17; TEMP 36.6; O2SAT 99
[2023-11-01] MEDS: Gabapentin 300 MG CAPSULE 900 MG PO (08:24)
--- NOTE | 2023-11-01 11:12 | MHC.RECOVRN ---
Spoke with [facility] who reports pt had been guest dosing there while at [facility]. [facility] informs t/w pts home [facility] is [facility]. [facility] reports guest dosing ended 4+ months ago, [facility] did not submit for an extension. As of right now, pt does not have a home OTP and will need to be directly admitted to an OTP once placement is secured. CM aware.
[2023-11-01 11:49] LABS: Glucose, Whole Blood 362 mg/dL (60-115)
[2023-11-01] MEDS: Insulin Lispro 100 UNIT/ML 3 ML VIAL 20 UNIT SUBCUT (12:08)
--- NOTE | 2023-11-01 12:22 | PC.NURSE ---
report received from overnight RN, doctor of naprapathic medicine per AUG. pt awake, alert and oriented for morning med pass and breakfast, noted to be increased lethargy/drowsy around 1000, pt wakes to shaking briefly, able to hold short conversation and follow commands then falls back to sleep. respirations even and unlabored, POC at 1130 362, notified, insulin admin per AUG. verbal to recheck in one hour after doctor of naprapathic medicine. safety precautions remain in place, plan of care ongoing.
[2023-11-01 13:34] LABS: Glucose, Whole Blood 321 mg/dL (60-115)
--- NOTE | 2023-11-01 13:37 | MHC.CM.ED ---
Patient remains in ER overflow. Signed medical respite referral sent to [facility]. Waiting to hear back. Continue to monitor for d/c needs.
[2023-11-01 14:59] VITALS: BP 100/50; PULSE 70; RESP 16; TEMP 36.4; O2SAT 98
[2023-11-01 17:02] LABS: Glucose, Whole Blood 113 mg/dL (60-115)
[2023-11-01 20:33] VITALS: BP 115/72; PULSE 68; RESP 14; TEMP 36.4; O2SAT 96
[2023-11-01 20:34] LABS: Glucose, Whole Blood 84 mg/dL (60-115)
--- NOTE | 2023-11-01 21:30 | HO.WOUND ---
Wound Consult: Initial 53yr old M?admitted to [facility] on? 10/28/23 - See progress notes and H&P for detailed history.?Wound consult placed for Bilateral Diabetic Foot wounds POA. Arrival to bedside patient was arousable but did not fully open his eyes. He was talking nonsensical and appeared to quickly fall back to bed - discussed with direct care nurse this is his baseline and providers are aware. He is agreeable to assessment but is not able to respond to any questions. Right Lateral Foot Etiology: Diabetic Wound Measurements:1.5cm x 1.5cm x 0.2cm Wound Bed: red dry clean wound bed with surrounding dry callus and erythema Drainage / Odor: none noted Edges: ?irregular Harmony wound: scar tissue noted - No Induration, Fluctuance or Warmth noted Pain: did not respond to my assessment Goals of Treatment: Betadine to keep dry and stabilize wound bed cover with dry gauze Left Lateral Foot Etiology: Diabetic Wound Measurements:3.5cm x 1cm x 0.2cm Wound Bed: red dry clean wound bed with surrounding dry callus and erythema Drainage / Odor: dried serosang drainage noted - malodor noted but no odor noted after cleansing Edges: ?irregular Harmony wound: scar tissue noted - No Induration, Fluctuance or Warmth noted Pain: did not respond to my assessment Goals of Treatment: Betadine to keep dry and stabilize wound bed cover with dry gauze Recommendations: 1. Turn and Reposition every 2 hours and as needed for patient comfort.? Use pillows or wedges to support off loading positions. 2. Off Load all bony prominences with use of pillows and heel boots if needed.? Apply Preventative foams where needed. ? 3. Monitor for incontinence and moisture control, use barrier creams when needed for prevention and treatment. 4. Provide adequate and supplemental nutrition.? 5.When applicable maintain blood glucose levels per Providers order. 6. Bilateral Feet - Cleanse with Betadine, allow to dry. Cover with dry gauze, ABD pad and gauze wrap. Change Daily. Re-consult wound care Nurse for wound deterioration or wound changes.
[2023-11-01] MEDS: Atorvastatin Calcium 40 MG TABLET PO (22:28)
[2023-11-01] MEDS: Insulin Glargine,Hum.rec.anlog 100 UNIT/ML 10 ML VIAL 42 UNIT SUBCUT (22:57)
[2023-11-02] VITALS (9 sets, daily range): BP systolic 98–153; BP diastolic 44–89; PULSE 72–100; RESP 14–20; TEMP 36.8; O2SAT 95–100
--- NOTE | 2023-11-02 01:17 | PC.NURSE ---
Late entry Rec'd report from day shift RN. PT reportedly drowsy since 10am. Upon assessing pt, this RN noted pt to be sleeping. Respirations even and unlabored. PT able to wake with light touch and name being called. PT slurring words and drowsy. While providing care to neighboring patient, pt was noted to be going into his personal belonging and was popping medication blister packs. PT was redirected and educated on policies and safety concerns regarding self medicated while a patient. Security called as t/w noted controlled substances in his belongings. Security secured belongings and inspected for safety. PT upset and noted he wanted to leave but first wanted to talk with Electronic Specialist, silke. Silke at bedside reminded pt of plan of care and discussed safety concerns with self medicating. Pt divulged to Silke that over the course of the day pt self-medicated with 7 gabapentin and 3 clonidine. Medications were secured, counted with Clinical coordinator, Jalyn, sealed and signed off by Pt and t/w. Will give to pharmacy in the morning. Held night gabapentin and clonidine and lispro (POC 84) as noted in MAR. PT requested and provided hot water for tea, gingerale and sandwiches.
[2023-11-02 07:27] LABS: Glucose, Whole Blood 316 mg/dL (60-115)
[2023-11-02] MEDS: Acetaminophen 325 MG TABLET 975 MG PO ×2 (07:37→21:42)
[2023-11-02] MEDS: ALPRAZolam 0.5 MG TABLET 2 MG PO (07:37)
[2023-11-02] MEDS: cloNIDine HCL 0.2 MG TABLET PO ×2 (07:37→21:43)
[2023-11-02] MEDS: Gabapentin 300 MG CAPSULE 900 MG PO (07:37)
[2023-11-02] MEDS: Insulin Lispro 100 UNIT/ML 3 ML VIAL SUBCUT (07:38)
[2023-11-02] MEDS: methADONE HCl 20 MG/2 ML ORAL.CONC 195 MG PO (07:38)
[2023-11-02] MEDS: QUEtiapine Fumarate 50 MG TABLET PO (07:38)
[2023-11-02] MEDS: lisinopriL 20 MG TABLET PO (07:38)
[2023-11-02] MEDS: Insulin Lispro 100 UNIT/ML 3 ML VIAL 20 UNIT SUBCUT ×2 (07:38→18:08)
[2023-11-02 13:12] LABS: Glucose, Whole Blood 98 mg/dL (60-115)
--- NOTE | 2023-11-02 14:20 | PC.NURSE ---
Provider aware of patient currently subdued state. Pt has only received scheduled medications, pt POC 98, provider held insulin d/t pt being to sleepy to eat, also wants 1500 medications held at this time. This RN checked with security in regards to if his bags got searched last night when they removed home medications, per security belongings were searched, pt has had no visitors throughout shift, will continue to assess mental status.
[2023-11-02 17:53] LABS: Glucose, Whole Blood 141 mg/dL (60-115)
--- NOTE | 2023-11-02 19:42 | MHC.CM.ED ---
Patient has been sleeping since CM arrival at 3pm. Snoring. CM will try to meet with patient when he wakes to review discharge plan.
--- NOTE | 2023-11-02 21:31 | PC.NURSE ---
Patient has only received scheduled medications, POC 126, provider held Seroquel, Gabapentin, and Lantus, no Lispro coverage indicated at this time. Patient continues to present sleepy, but arousable to voice and touch. He was not able to eat dinner d/t being to sleepy to eat. VSS. Plan of care ongoing.
[2023-11-02 21:32] LABS: Glucose, Whole Blood 126 mg/dL (60-115)
[2023-11-02] MEDS: Atorvastatin Calcium 40 MG TABLET PO (21:42)
[2023-11-03] VITALS (7 sets, daily range): BP systolic 90–155; BP diastolic 39–88; PULSE 67–95; RESP 16–18; TEMP 36.2; O2SAT 95–98
[2023-11-03 07:18] LABS: Glucose, Whole Blood 254 mg/dL (60-115)
[2023-11-03] MEDS: Insulin Lispro 100 UNIT/ML 3 ML VIAL SUBCUT ×3 (07:30→22:47)
[2023-11-03] MEDS: Acetaminophen 325 MG TABLET 975 MG PO (08:58)
[2023-11-03] MEDS: ALPRAZolam 0.5 MG TABLET 2 MG PO (08:58)
[2023-11-03] MEDS: Gabapentin 300 MG CAPSULE 900 MG PO ×2 (08:59→22:44)
[2023-11-03] MEDS: lisinopriL 20 MG TABLET PO (08:59)
[2023-11-03] MEDS: cloNIDine HCL 0.2 MG TABLET PO ×2 (08:59→22:44)
[2023-11-03] MEDS: QUEtiapine Fumarate 50 MG TABLET PO ×2 (09:01→22:44)
[2023-11-03] MEDS: methADONE HCl 20 MG/2 ML ORAL.CONC 195 MG PO (09:02)
[2023-11-03 12:08] LABS: Glucose, Whole Blood 243 mg/dL (60-115)
--- NOTE | 2023-11-03 12:39 | PC.NURSE ---
pt sleeping. On baseline 2L oxygen. 97% spo2
--- NOTE | 2023-11-03 13:07 | PC.NURSE ---
pt sleeping. Pt difficult to arouse for lunch. wakes briefly to verbal stimuli but then goes back to sleep. Not interested in lunch at this time.
--- NOTE | 2023-11-03 13:53 | MHC.CM.ED ---
Patient remains in ER. T/W spoke with Mendy of [facility]. Nursing is still reviewing his information. Continue to monitor for d/c needs.
--- NOTE | 2023-11-03 15:57 | PC.NURSE ---
pt did not wake up for lunch. he wakes to his name being called but declined food and went back to sleep. At this time, insulin not given bc pt is not eating. Will reassess at next mealtime.
--- NOTE | 2023-11-03 15:58 | PC.NURSE ---
BP at 1430 90/39 - clonidine held. Pt sleeping
--- NOTE | 2023-11-03 17:17 | PC.NURSE ---
left foot dressing removed, wound is clean, dry. Wound is not open or leaking. No redness no drainage. Cleaned with betadine, dried and ABD pad applied with gauze wrap. Pt tolerated well no reports of pain. Foot elevated off of bed with pillow
[2023-11-03 18:04] LABS: Glucose, Whole Blood 194 mg/dL (60-115)
[2023-11-03] MEDS: Insulin Lispro 100 UNIT/ML 3 ML VIAL 20 UNIT SUBCUT ×2 (18:16→22:46)
--- NOTE | 2023-11-03 19:15 | MHC.EDTECH ---
THIS TECH TOOK OVER CARE PHOTOGRAPHIC EQUIPMENT MECHANIC AT 1900
--- NOTE | 2023-11-03 19:23 | PC.NURSE ---
This RN assumed care of pt at this time. Pt resting in bed easily arousable, breathing even and unlabored. No apparent distress at this time.
--- NOTE | 2023-11-03 22:23 | PC.NURSE ---
2100 pt resting, did not want medications at that time.
[2023-11-03 22:26] LABS: Glucose, Whole Blood 303 mg/dL (60-115)
[2023-11-03] MEDS: Atorvastatin Calcium 40 MG TABLET PO (22:44)
[2023-11-03] MEDS: ALPRAZolam 0.5 MG TABLET 1 MG PO (22:57)
[2023-11-04 00:37] VITALS: BP 108/46; PULSE 76; RESP 17; TEMP 36.9; O2SAT 97
[2023-11-04 06:04] VITALS: BP 125/68; PULSE 78; RESP 17; TEMP 36.4; O2SAT 100
[2023-11-04 07:12] LABS: Glucose, Whole Blood 166 mg/dL (60-115)
[2023-11-04] MEDS: methADONE HCl 20 MG/2 ML ORAL.CONC 195 MG PO (08:14)
[2023-11-04] MEDS: Insulin Lispro 100 UNIT/ML 3 ML VIAL 20 UNIT SUBCUT ×2 (08:14→18:35)
[2023-11-04] MEDS: Insulin Lispro 100 UNIT/ML 3 ML VIAL SUBCUT ×3 (08:14→22:13)
[2023-11-04 08:16] VITALS: BP 125/68
[2023-11-04] MEDS: ALPRAZolam 0.5 MG TABLET 2 MG PO (08:16)
[2023-11-04] MEDS: lisinopriL 20 MG TABLET PO (08:16)
[2023-11-04 08:17] VITALS: BP 125/68
[2023-11-04] MEDS: cloNIDine HCL 0.2 MG TABLET PO ×2 (08:17→22:13)
[2023-11-04] MEDS: Gabapentin 300 MG CAPSULE 900 MG PO ×2 (08:17→22:12)
[2023-11-04] MEDS: QUEtiapine Fumarate 50 MG TABLET PO ×2 (08:17→22:13)
[2023-11-04] MEDS: Acetaminophen 325 MG TABLET 975 MG PO ×2 (08:17→22:13)
[2023-11-04 13:11] LABS: Glucose, Whole Blood 157 mg/dL (60-115)
--- NOTE | 2023-11-04 14:42 | PC.NURSE ---
pt has been sleeping for duration of the shift, attempted to wake pt up for lunch, pt refuses and wishes to sleep lunchtime insulin held.
[2023-11-04 15:43] VITALS: BP 98/63; PULSE 72; RESP 16; TEMP 36.6; O2SAT 97
[2023-11-04 17:42] LABS: Glucose, Whole Blood 205 mg/dL (60-115)
--- NOTE | 2023-11-04 18:38 | PC.NURSE ---
pt medicated per AUG, ate 100% of dinner, now sitting up awake and alert, pt requests to use phone, cordeless provided.
[2023-11-04 19:32] VITALS: BP 130/79; PULSE 91; RESP 18; TEMP 37.1; O2SAT 96
--- NOTE | 2023-11-04 19:56 | PC.NURSE ---
Assumed care of pt at 1900. PT resting in bed quietly. VSS. Right lateral foot wound- red , dry and open to air. Left lateral foot wound red dry and open to air. T/W cleansed with betadine and bandaged as recommended by wound care
[2023-11-04 22:10] LABS: Glucose, Whole Blood 219 mg/dL (60-115)
[2023-11-04] MEDS: ALPRAZolam 0.5 MG TABLET 1 MG PO (22:12)
[2023-11-04] MEDS: Atorvastatin Calcium 40 MG TABLET PO (22:13)
[2023-11-04] MEDS: Insulin Glargine,Hum.rec.anlog 100 UNIT/ML 10 ML VIAL 42 UNIT SUBCUT (22:14)
[2023-11-04 23:55] LABS: Glucose, Whole Blood 192 mg/dL (60-115)
[2023-11-05] VITALS (9 sets, daily range): BP systolic 96–151; BP diastolic 51–83; PULSE 66–77; RESP 12–19; TEMP 36.2–37.2; O2SAT 95–99
[2023-11-05 07:23] LABS: Glucose, Whole Blood 149 mg/dL (60-115)
[2023-11-05] MEDS: Gabapentin 300 MG CAPSULE 900 MG PO ×2 (07:25→22:02)
[2023-11-05] MEDS: Acetaminophen 325 MG TABLET 975 MG PO ×2 (07:25→22:02)
[2023-11-05] MEDS: QUEtiapine Fumarate 50 MG TABLET PO ×2 (07:25→22:02)
[2023-11-05] MEDS: cloNIDine HCL 0.2 MG TABLET PO ×2 (07:29→22:01)
[2023-11-05] MEDS: lisinopriL 20 MG TABLET PO (07:29)
[2023-11-05] MEDS: Insulin Lispro 100 UNIT/ML 3 ML VIAL 20 UNIT SUBCUT ×2 (07:30→11:23)
[2023-11-05] MEDS: methADONE HCl 20 MG/2 ML ORAL.CONC 195 MG PO (07:35)
[2023-11-05] MEDS: ALPRAZolam 0.5 MG TABLET 2 MG PO (07:54)
[2023-11-05 11:19] LABS: Glucose, Whole Blood 256 mg/dL (60-115)
[2023-11-05] MEDS: Insulin Lispro 100 UNIT/ML 3 ML VIAL SUBCUT ×2 (11:23→22:03)
--- NOTE | 2023-11-05 11:51 | PC.NURSE ---
Assumed care of this patient at 1100, patient sleeping in bed, arousable to name and light shake, quickly falling back to sleep. Room in disarray with personal belongings and food, cleaned up as best as possible.
--- NOTE | 2023-11-05 14:55 | PC.NURSE ---
Patient soundly asleep, woken up for afternoon vitals, denied pain immediately went back to sleep, afternoon medications held.
[2023-11-05 15:20] LABS: Glucose, Whole Blood 122 mg/dL (60-115)
[2023-11-05 21:54] LABS: Glucose, Whole Blood 291 mg/dL (60-115)
[2023-11-05] MEDS: Ibuprofen 800 MG TABLET PO (22:01)
[2023-11-05] MEDS: Insulin Glargine,Hum.rec.anlog 100 UNIT/ML 10 ML VIAL 42 UNIT SUBCUT (22:02)
[2023-11-05] MEDS: Atorvastatin Calcium 40 MG TABLET PO (22:02)
--- NOTE | 2023-11-05 22:32 | PC.NURSE ---
Patient refused dressing change all afternoon into this evening. States they were just done yesterday . Informed patient the goal is to change them every day. Patient states We can do it in the morning . Patient requesting Xanax, informed patient that Xanax is ordered for insomnia, he's been sleeping a majority of the day and getting scheduled meds that will help him sleep, if pmh meds do not work then patient can and will get Xanax.
[2023-11-06 01:02] VITALS: RESP 15
--- NOTE | 2023-11-06 01:08 | PC.NURSE ---
assumed care of pt at this time. pt resting comfortably in bed with eyes closed. resp even and unlabored. call toth within reach.
[2023-11-06 06:48] VITALS: BP 94/52; PULSE 60; RESP 15; O2SAT 99
[2023-11-06 08:58] LABS: Glucose, Whole Blood 190 mg/dL (60-115)
[2023-11-06] MEDS: Gabapentin 300 MG CAPSULE 900 MG PO ×3 (09:58→21:11)
[2023-11-06] MEDS: cloNIDine HCL 0.2 MG TABLET PO ×3 (09:59→21:11)
[2023-11-06] MEDS: lisinopriL 20 MG TABLET PO (09:59)
[2023-11-06] MEDS: Insulin Lispro 100 UNIT/ML 3 ML VIAL 20 UNIT SUBCUT ×3 (09:59→17:40)
[2023-11-06] MEDS: QUEtiapine Fumarate 50 MG TABLET PO ×3 (09:59→21:11)
[2023-11-06] MEDS: methADONE HCl 20 MG/2 ML ORAL.CONC 195 MG PO (10:01)
[2023-11-06] MEDS: Acetaminophen 325 MG TABLET 975 MG PO ×3 (10:07→21:17)
[2023-11-06 12:14] LABS: Glucose, Whole Blood 311 mg/dL (60-115)
[2023-11-06] MEDS: Insulin Lispro 100 UNIT/ML 3 ML VIAL SUBCUT ×3 (12:18→21:11)
--- NOTE | 2023-11-06 14:13 | MHC.CM.ED ---
Patient remains in ER overflow. T/W reached out to Mendy from [facility] requesting an update. Waiting to hear back. Continue to monitor for d/c needs.
[2023-11-06 15:17] VITALS: BP 185/83; PULSE 109; RESP 22; O2SAT 96
[2023-11-06 17:15] LABS: Glucose, Whole Blood 272 mg/dL (60-115)
[2023-11-06 17:38] VITALS: BP 126/75; PULSE 90; RESP 18; TEMP 36.7; O2SAT 94
--- NOTE | 2023-11-06 17:47 | PC.NURSE ---
Patient alert and oriented x 3. Patient slept most of the day would wake up to eat and go to the bathroom. Cleaned and changed dressing on feet today at 4pm. Patient c/o pain in feet medicated throughout the day. Patient ambulated with rolling walker to bathroom. Will continue with plan of care.
--- NOTE | 2023-11-06 20:00 | PC.NURSE ---
Pt watching tv, no signs of distress. Plan of care ongoing.
[2023-11-06 21:00] LABS: Glucose, Whole Blood 184 mg/dL (60-115)
[2023-11-06] MEDS: Insulin Glargine,Hum.rec.anlog 100 UNIT/ML 10 ML VIAL 42 UNIT SUBCUT (21:09)
[2023-11-06 21:11] VITALS: BP 102/60
[2023-11-06] MEDS: Atorvastatin Calcium 40 MG TABLET PO (21:11)
--- NOTE | 2023-11-06 21:21 | PC.NURSE ---
Pt medicated per mar. Pt watching tv in bed, no signs of distress. Plan of care ongoing.
[2023-11-07 07:14] LABS: Glucose, Whole Blood 104 mg/dL (60-115)
--- NOTE | 2023-11-07 08:22 | MHC.CM.ED ---
Patient remains in ER overflow. Left voicemail for Mendy at [facility] requesting return telephone call for update. Continue to monitor for d/c needs.
--- NOTE | 2023-11-07 08:29 | PC.NURSE ---
Glucose this am 104. Pt has 20units lispro scheduled. Clarified with eYny Burton, instructed to give 10 units lispro instead.
[2023-11-07 09:24] VITALS: BP 98/49; PULSE 71; RESP 17; TEMP 36.7; O2SAT 99
[2023-11-07] MEDS: Insulin Lispro 100 UNIT/ML 3 ML VIAL 10 UNIT SUBCUT (09:26)
[2023-11-07] MEDS: Gabapentin 300 MG CAPSULE 900 MG PO (09:28)
[2023-11-07] MEDS: Acetaminophen 325 MG TABLET 975 MG PO (09:28)
[2023-11-07] MEDS: QUEtiapine Fumarate 50 MG TABLET PO (09:29)
[2023-11-07] MEDS: ALPRAZolam 0.5 MG TABLET 2 MG PO (09:29)
[2023-11-07] MEDS: methADONE HCl 20 MG/2 ML ORAL.CONC 195 MG PO (09:36)
[2023-11-07 09:53] VITALS: BP 98/49
[2023-11-07 11:00] LABS: Glucose, Whole Blood 189 mg/dL (60-115)
[2023-11-07 11:56] LABS: Glucose, Whole Blood 203 mg/dL (60-115)
--- NOTE | 2023-11-07 12:32 | PC.NURSE ---
Patient resting on bed with eyes closed, attempted to wake patient for lunch and insulin coverage, patient wakes but is not conversive with this nurse and is not staying awake for lunch. SIGRID Hummel aware, this is not a new mentality for patient and advised to hold insulin at this time.
--- NOTE | 2023-11-07 12:42 | MHC.CM.ED ---
Patient remains in ER overflow. Received return telephone call from Earlene at [facility]. Team does not feel he would be appropriate for their facility because they are not staffed 26/12. Earlene recommended referrals to behavioral health respite due to substance abuse. Referrals will be made to [facility] respite and [facility] respite. Continue to monitor for d/c needs.
[2023-11-07 15:18] VITALS: BP 103/51; PULSE 60; RESP 18; TEMP 36.7; O2SAT 96
[2023-11-07 15:57] VITALS: BP 103/51
--- NOTE | 2023-11-07 16:00 | PC.NURSE ---
Patient still waking slightly but falling back to sleep quickly, vitals are stable at this time. Yeny Burton made aware and 1500 medications held at this time.
[2023-11-07 16:58] LABS: Glucose, Whole Blood 219 mg/dL (60-115)
[2023-11-07] MEDS: Insulin Lispro 100 UNIT/ML 3 ML VIAL 20 UNIT SUBCUT (17:41)
[2023-11-07] MEDS: Insulin Lispro 100 UNIT/ML 3 ML VIAL SUBCUT ×2 (17:41→20:55)
[2023-11-07 20:04] LABS: Glucose, Whole Blood 308 mg/dL (60-115)
[2023-11-07] MEDS: Insulin Glargine,Hum.rec.anlog 100 UNIT/ML 10 ML VIAL 42 UNIT SUBCUT (20:54)
[2023-11-07 22:00] VITALS: BP 90/50; PULSE 68; RESP 16; TEMP 36.6; O2SAT 96
--- NOTE | 2023-11-08 02:01 | MHC.EDTECH ---
THIS PCT JUST ASSUMED CARE OF PATIENT ,BLOOD SUGAR CHECK ,AUNG CHAMPAGNE IS AWARE OF RESULT OF 218 ,PATIENT HAD A CUP OF COFFEE SOME [employer] FOR SNACK .
[2023-11-08 02:03] LABS: Glucose, Whole Blood 218 mg/dL (60-115)
--- NOTE | 2023-11-08 02:03 | PC.NURSE ---
Assumed care of pt.
[2023-11-08 05:52] VITALS: BP 116/58; PULSE 82; RESP 16; TEMP 36.6; O2SAT 98
[2023-11-08 07:13] LABS: Glucose, Whole Blood 300 mg/dL (60-115)
[2023-11-08] MEDS: ALPRAZolam 0.5 MG TABLET 2 MG PO ×2 (07:20→07:23)
[2023-11-08] MEDS: Insulin Lispro 100 UNIT/ML 3 ML VIAL 20 UNIT SUBCUT ×2 (07:23→18:29)
[2023-11-08] MEDS: Insulin Lispro 100 UNIT/ML 3 ML VIAL SUBCUT ×2 (07:29→20:34)
[2023-11-08 08:08] VITALS: BP 155/75; PULSE 89; RESP 14; TEMP 36.3; O2SAT 99
[2023-11-08 08:56] VITALS: BP 155/75
[2023-11-08] MEDS: QUEtiapine Fumarate 50 MG TABLET PO (08:56)
[2023-11-08] MEDS: Gabapentin 300 MG CAPSULE 900 MG PO (08:56)
[2023-11-08] MEDS: cloNIDine HCL 0.2 MG TABLET PO (08:56)
[2023-11-08] MEDS: Acetaminophen 325 MG TABLET 975 MG PO (08:56)
[2023-11-08 08:57] VITALS: BP 155/75
[2023-11-08] MEDS: methADONE HCl 20 MG/2 ML ORAL.CONC 195 MG PO (08:57)
[2023-11-08] MEDS: lisinopriL 20 MG TABLET PO (08:57)
--- NOTE | 2023-11-08 10:12 | MHC.CM.ED ---
Patient remains in ER. No response from respite bed referrals. SNF referral broadcasted across the [place] of [place] to all facilities that are contracted with [facility]. 206 referrals made. Continue to monitor for d/c needs.
[2023-11-08 12:09] VITALS: BP 101/47; PULSE 83; RESP 16; TEMP 36.7; O2SAT 95
[2023-11-08 12:35] LABS: Glucose, Whole Blood 217 mg/dL (60-115)
--- NOTE | 2023-11-08 16:08 | PC.NURSE ---
Addendum entered by Adia Wynne 11/08/23 16:20: insulin held d/t pt not eating lunch. Original Note: assumed care of pt at 1445, somnolent, difficult to rouse - 1500 seroquel and clondine held. pt remains on 2L O2 - baseline per notes, hypotensive, other vss.
[2023-11-08 16:47] LABS: Glucose, Whole Blood 165 mg/dL (60-115)
--- NOTE | 2023-11-08 18:00 | MHC.CM.ED ---
CM made referrals within 50 miles with facilites in [facility] for respite on 11/06.
[2023-11-08 19:11] VITALS: BP 102/58; PULSE 57; RESP 16; TEMP 36.6; O2SAT 96
[2023-11-08 20:04] LABS: Glucose, Whole Blood 222 mg/dL (60-115)
[2023-11-08] MEDS: Atorvastatin Calcium 40 MG TABLET PO (20:33)
[2023-11-08] MEDS: Insulin Glargine,Hum.rec.anlog 100 UNIT/ML 10 ML VIAL 42 UNIT SUBCUT (20:33)
--- NOTE | 2023-11-08 20:38 | PC.NURSE ---
Addendum entered by Rosey Montejoarnacion 11/09/23 06:39: meds not sent to pharmacy as they are not controlled. Sealed and kept behind nurses station. Original Note: Assumed care of pt at 1900. PT sleeping deeply, was able to wake with touch and loud shouting of his name . Held seroquel, clonidine and gapapetin due to pt current status. POC 222, medicated as per AUG. Noted lantus pens at bedside. PT agreeable to security searching belonging again. Secured narcn, dietary supplements and multiple lantus pens. will send down to pharmacy. PT refused wound assessments and dressing change. Call toth within reach. plan of care ongoing
--- NOTE | 2023-11-08 20:58 | MHC.EDTECH ---
security called per RN for security to go through belongings again for medications from home, security searched items. pt bedding changed for clean linen.
--- NOTE | 2023-11-08 22:38 | PC.NURSE ---
PT attempting to complete wound care by himself, fell asleep sitting in chair in the middle of taking off dressing. PT touching wounds with unwashed hands, t/w offered to complete wounde dressing as offered earlier. Pt agreeable. bilateral foot wounds were bleeding, and macerated. Wound cleansed and dressed as per wound care recommendations.
[2023-11-09] VITALS (10 sets, daily range): BP systolic 77–189; BP diastolic 36–74; PULSE 61–81; RESP 14–20; TEMP 36.6–37.3; O2SAT 93–100
--- NOTE | 2023-11-09 05:38 | PC.NURSE ---
Resumed care of pt at 0530. PT appears to be sleeping. respirations even and unlabored. safety precautions in place. call toth within reach. plan of care ongoing
[2023-11-09 08:05] LABS: Glucose, Whole Blood 170 mg/dL (60-115)
[2023-11-09] MEDS: cloNIDine HCL 0.2 MG TABLET PO (08:05)
[2023-11-09] MEDS: QUEtiapine Fumarate 50 MG TABLET PO (08:05)
[2023-11-09] MEDS: Acetaminophen 325 MG TABLET 975 MG PO ×2 (08:08→22:06)
[2023-11-09] MEDS: Insulin Lispro 100 UNIT/ML 3 ML VIAL 20 UNIT SUBCUT (08:08)
[2023-11-09] MEDS: Gabapentin 300 MG CAPSULE 900 MG PO (08:08)
[2023-11-09] MEDS: ALPRAZolam 0.5 MG TABLET 2 MG PO ×2 (08:08→08:19)
[2023-11-09] MEDS: methADONE HCl 20 MG/2 ML ORAL.CONC 195 MG PO (08:09)
[2023-11-09] MEDS: lisinopriL 20 MG TABLET PO (08:21)
[2023-11-09 11:40] LABS: Glucose, Whole Blood 196 mg/dL (60-115)
--- NOTE | 2023-11-09 14:02 | PC.NURSE ---
pt has slept muh of the day. He wakes breifly to his name being called but then goes back to sleep. Has not eaten lunch, insulin held for now. Wounds to bilat feet are weeping sero sanguineous fluid. Malodorous. Wounds have soaked through previous dressing. Pt repositioned in bed. Legs raised on pillow to relieve pressure on feet. Dressings removed for now, PA notified of change in wound condition. Pt went back to sleep
--- NOTE | 2023-11-09 14:03 | MHC.EDTECH ---
Assisted nurse with repositioning patient.added a few pillows, and changed blanket.
--- NOTE | 2023-11-09 14:09 | MHC.CM.ED ---
Patient remains in ER overflow. Waiting for call back from [facility] to see if they can offer a bed. Will need [facility] PASRR Level 2. T/W will submit for this. Will also need methadone dosing at [facility]. Continue to monitor for d/c needs.
[2023-11-09 14:53] LABS: MANUAL DIFF FLAG NO
[2023-11-09 14:55] LABS: Basophils Percent Auto 0.3 % (0-2); Eosinophils Absolute Auto 0.1 X10*3/uL (0.0-0.4); Eosinophils Percent Auto 1.8 % (0-4); Hematocrit 32.1 % (42.0-52.0); Hemoglobin 10.2 g/dl (14.0-18.0); Imm Gran Abs Auto 0.03 X10*3/uL (0.00-0.03); Imm Gran Pct Auto 0.4 % (0.0-0.4); Lymphocytes Absolute Auto 1.3 X10*3/uL (1.2-4.9); Lymphocytes Percent Auto 19.1 % (20-40); Mean Corpuscular HGB Conc 31.8 g/dl (31.0-36.0); Mean Corpuscular Hemoglobin 28.4 pg (27.0-33.0); Mean Corpuscular Volume 89.4 fL (80.0-98.0); Mean Platelet Volume 10.1 fL (9.4-12.4); Neutrophils Absolute Auto 4.3 x10*3/uL (2.0-8.3); Neutrophils Percent Auto 63.4 % (45-73); Platelet Count 122 X10*3/uL (160-400); Red Blood Count 3.59 X10*6/uL (4.60-5.80); Red Cell Distribution Width 16.1 % (11.0-16.0); White Blood Count 6.8 X10*3/uL (4.8-10.8)
--- NOTE | 2023-11-09 14:56 | PC.NURSE ---
repeat labs done, x ray done. pt back to sleep
[2023-11-09 15:18] LABS: Alanine Aminotransferase 25 U/L (0-40); Albumin Level 3.1 g/dL (3.5-5.0); Alkaline Phosphatase 212 U/L (39-117); Anion Gap 13 (12-20); Aspartate Amino Transferase 35 U/L (5-37); Bilirubin Total 0.3 mg/dL (0.0-1.0); Blood Urea Nitrogen 46 mg/dL (9-16); C Reactive Protein 31.33 mg/dL (< or = 0.50); Calcium 9.3 mg/dL (8.4-10.2); Carbon Dioxide 28 mmol/L (22-29); Chloride 101 mmol/L (96-108); Creatinine Clr Calc Pharmacy 48.5; Estimated Glomerular Filt Rate 37; Glucose Random 209 mg/dL (60-115); Potassium 5.2 mmol/L (3.3-5.1); Sodium 137 mmol/L (135-145); Total Protein 6.9 g/dL (6.5-8.0)
--- NOTE | 2023-11-09 15:31 | PC.NURSE ---
Tech notified RN of pt hypotensive 70s/40s. PA notified. Line started, fluids started, pt transferred to Main ED
[2023-11-09 15:33] LABS: Glucose, Whole Blood 185 mg/dL (60-115)
[2023-11-09] MEDS: 0.9 % Sodium Chloride 1,000 ML 999 ML IV (15:33)
[2023-11-09] MEDS: Midodrine HCl 5 MG TABLET PO (15:42)
[2023-11-09 15:44] LABS: Erythrocyte Sedimentation Rate 96 MM/HR (0-15)
[2023-11-09 16:55] LABS: Lactic Acid 0.9 mmol/L (0.5-2.0)
[2023-11-09] MEDS: cefTRIAXone sodium 1 GM in 0.9 % Sodium Chloride 50 ML IV (17:28)
[2023-11-09] MEDS: 0.9 % Sodium Chloride 2,721.54 ML 2721.54 ML IV (18:19)
[2023-11-09] MEDS: vancomycin/NS 2,000 MG/500 ML PLAST..BAG 250 MG IV (18:19)
[2023-11-09 18:31] LABS: Glucose, Whole Blood 177 mg/dL (60-115)
--- NOTE | 2023-11-09 18:52 | PC.NURSE ---
Pt not eating, altered level of consciousness with low BPs. Insulin withheld due to pt not eating and BGL 177.
--- NOTE | 2023-11-09 19:43 | PM.IMHP ---
History of Present Illness Date of Service: 11/09/23 Attending physician on admission: Suzette Dias Chief Complaint: Worsening chronic foot ulcers Pt is a 53-year-old male with a PMH significant for?HTN, HLD, insulin-dependent type 2 diabetes, diabetic/peripheral neuropathy, hx of osteomyelitis from chronic diabetic foot ulcers s/p right TMA, polysubstance use disorder on methadone, and mood disorder who originally presented to the ED on 10/27/2023 after being discharged from rehab with no place to go. Patient apparently was at [facility] late last year for an unknown ailment and then discharged to a [place] rehab facility where he resided from 05/03/2023-10/26/2023. A few hours after discharge patient called ambulance to bring him to another hospital for placement as he states he had no place to go and was tired from carrying all of his belongings. Patient was placed in physician observation and sent to overflow. Physician observation complicated by occasional episodes of lethargy which were thought secondary to polypharmacy, as patient's home medications for Xanax and gabapentin were found in his personal belongings. Earlier today nursing notified ED physician that chronic foot wounds looked worse, and patient was noted to be hypotensive as low as 77/43. X-ray of left foot found progressive bone loss of proximal 5th metatarsal consistent with osteomyelitis, and edema of soft tissues of ankle and midfoot. X-ray of right foot found loss of bone in the plantar surface of cuboid suspicious for osteomyelitis with soft tissue swelling at the plantar side of foot. CT of foot pending. Labs were significant for no leukocytosis, stable H&H of 10.2/32.1, ESR 96, CRP 31.33, potassium 5.2, BUN 46, creatinine 1.91, alk-phos 212, and albumin 3.1. Patient was given IVF and started on vancomycin and ceftriaxone. Patient seen and evaluated in the ED where he is somnolent but arousable. Patient a very limited historian before falling back asleep. Only reports pain in his feet that he is unable/unwilling to further clarify. Patient will be brought to the medical floor and hospitalized for acute osteomyelitis of bilateral feet. 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 Do you presently have visiting nurse or other home services: No Unable to assess alcohol history related to: Unknown and Refusing to respond Alcohol intake: current Alcohol intake frequency: a few times a month Alcohol type: hard liquor Comment: pt refused bed alarm Patient Tobacco Use Status: Never used Tobacco e-Cigarette/Vaping Use: Never Used Second Hand Smoke Exposure: No Use of substances other than those prescribed or required for medical reasons: Refusing to respond Substance Use Type: Crack/Cocaine Advance Directives: Yes Advance Directives on File: Yes Advance Directives Date on File: 05/19/22 service: No Current occupational status: disabled Meds Allergies Allergy/AdvReac Type Severity Reaction Status Date / Time prochlorperazine Allergy Intermediate Hives Verified 10/28/23 00:18 [From Compazine] aspirin [ASA] Allergy Unknown HIVES Verified 10/28/23 00:18 naproxen [From NAPROSYN] Allergy Unknown HIVES Verified 10/28/23 00:18 NSAIDS (Non-Steroidal Allergy Unknown HIVES Verified 10/28/23 00:18 Anti-Inflamma [NSAIDS (NON-STEROIDAL ANTI-INFLAMMA] Penicillins [PENICILLINS] Allergy Unknown HIVES Verified 10/28/23 00:18 Active Medications: Current Medications Acetaminophen (Acetaminophen 325 Mg Tablet) 975 mg PO TID [facility] Last Admin: 11/09/23 17:30 Dose: Not Given Alprazolam (Alprazolam 0.5 Mg Tablet) 1 mg PO BEDTIME PRN PRN Reason: insomnia Alprazolam (Alprazolam 0.5 Mg Tablet) 2 mg PO DAILY@0730 [facility] Last Admin: 11/09/23 08:19 Dose: 2 mg Atorvastatin Calcium (Atorvastatin Calcium 40 Mg Tablet) 40 mg PO BEDTIME [facility] Last Admin: 11/08/23 20:33 Dose: 40 mg Clonidine HCl (Clonidine Hcl 0.2 Mg Tablet) 0.2 mg PO TID [facility]; Protocol Last Admin: 11/09/23 17:07 Dose: Not Given Gabapentin (Gabapentin 300 Mg Capsule) 900 mg PO TID [facility] Last Admin: 11/09/23 17:29 Dose: Not Given Glucose (Glucose Gel 15 Gm Gel..Gram.) 15 gm PO Q15M PRN; Protocol PRN Reason: per Hypoglycemia Standing Ord. Dextrose (D10) 250 mls @ 750 mls/hr IV Q15M PRN; Protocol PRN Reason: per Hypoglycemia Standing Ord. Ibuprofen (Ibuprofen 800 Mg Tablet) 800 mg PO TID PRN PRN Reason: Pain, Moderate(Pain Scale 4-6) Last Admin: 11/05/23 22:01 Dose: 800 mg Insulin Glargine (Insulin Glargine,Hum.Rec.Anlog 100 Unit/Ml 10 Ml Vial) 42 unit SUBCUT BEDTIME [facility] Last Admin: 11/08/23 20:33 Dose: 42 unit Insulin Human Lispro (Insulin Lispro 100 Unit/Ml 3 Ml Vial) 20 unit SUBCUT TIDAC [facility] Last Admin: 11/09/23 18:52 Dose: Not Given Insulin Human Lispro (Insulin Lispro 100 Unit/Ml 3 Ml Vial) 0 unit SUBCUT QIDACHS [facility]; Protocol Last Admin: 11/09/23 18:52 Dose: Not Given Lisinopril (Lisinopril 20 Mg Tablet) 20 mg PO DAILY [facility]; Protocol Last Admin: 11/09/23 08:21 Dose: 20 mg Methadone HCl (Methadone Hcl 20 Mg/2 Ml Oral.Conc) 195 mg PO DAILY [facility] Last Admin: 11/09/23 08:09 Dose: 195 mg Quetiapine Fumarate (Quetiapine Fumarate 50 Mg Tablet) 50 mg PO TID [facility] Last Admin: 11/09/23 17:29 Dose: Not Given Home Medications ?Medication ?Instructions ?Recorded ?Confirmed ?Last Taken ?Type methadone 10 mg/mL oral 195 mg PO DAILY 04/25/22 10/29/23 08/04/22 History concentrate (Methadone Intensol) acetaminophen 325 mg tablet 975 mg PO TID 10/29/23 10/29/23 Unknown History alprazolam 1 mg tablet 1 mg PO BEDTIME PRN Anxiety 10/29/23 10/29/23 Unknown History alprazolam 1 mg tablet 2 mg PO QAM 10/29/23 10/29/23 Unknown History gabapentin 300 mg capsule 900 mg PO TID 10/29/23 10/29/23 Unknown History ibuprofen 800 mg tablet 800 mg PO Q8H PRN Pain (Scale 10/29/23 10/29/23 Unknown History Score 4-6) insulin glargine 100 unit/mL (3 42 unit subcut QPM 10/29/23 10/29/23 Unknown History mL) subcutaneous pen (Lantus Solostar U-100 Insulin) insulin lispro 100 unit/mL See Rx Instructions .Route .COMPLEX 10/29/23 10/29/23 Unknown History subcutaneous pen insulin lispro 100 unit/mL 20 unit subcut TIDAC 10/29/23 10/29/23 Unknown History subcutaneous solution quetiapine 50 mg tablet (Seroquel) 50 mg PO TID 10/29/23 10/29/23 Unknown History Physical Exam Vital Signs and Narrative: Vital Signs: Last Vital Signs Temp 99.1 F 11/09/23 15:09 Pulse 78 11/09/23 18:25 Resp 16 11/09/23 18:25 BP 96/45 L 11/09/23 18:25 Pulse Ox 100 11/09/23 18:25 O2 Del Method Room Air 11/09/23 18:25 O2 Flow Rate 2 11/09/23 16:38 FiO2 99 11/05/23 18:24 Oxygen Flow Rate 2 10/28/23 00:15 BMI result Body Mass Index 27.1 General: Somnolent but arousable, though quickly falling back asleep. Appears alert and oriented and capable of briefly answering questions. In no acute distress Resp: CTA bilaterally CVS: S1, S2, RRR GI: +BS, NT, no distention Skin: Warm, dry Neuro: Cranial nerves II-XII grossly intact bilaterally. Motor grossly intact bilaterally Extremities: Left foot with erythema, warmth, and swelling with chronic midfoot wound on the lateral aspect with purulent drainage. Right foot s/p TMA with chronic appearing wound without discharge. Warmth and mild swelling noted, though no apparent erythema. As pictured below Results Labs 11/09/23 14:47 11/09/23 14:47 Labs: Laboratory Results - last 24 hr 11/08/23 11/09/23 11/09/23 20:00 07:55 11:36 MCV MCH MCHC RDW Plt Count MPV Immature Gran % (Auto) Neut % (Auto) Lymph % (Auto) Catron % (Auto) Eos % (Auto) Baso % (Auto) Lymph # (Auto) Catron # (Auto) Eos # (Auto) Baso # (Auto) Abs Immat Gran (auto) Absolute Neuts (auto) Absolute Nucleated RBC Nucleated RBC % (auto) ESR Anion Gap Estim Creat Clear Calc Estimated GFR POC Glucose 222 H 170 H 196 H Random Glucose Lactic Acid Calcium Total Bilirubin AST ALT Alkaline Phosphatase C-Reactive Protein Total Protein Albumin 11/09/23 11/09/23 11/09/23 14:47 15:07 16:37 MCV 89.4 MCH 28.4 MCHC 31.8 RDW 16.1 H Plt Count 122 L D MPV 10.1 Immature Gran % (Auto) 0.4 Neut % (Auto) 63.4 Lymph % (Auto) 19.1 L Catron % (Auto) 15.0 H Eos % (Auto) 1.8 Baso % (Auto) 0.3 Lymph # (Auto) 1.3 Catron # (Auto) 1.0 Eos # (Auto) 0.1 Baso # (Auto) 0.0 Abs Immat Gran (auto) 0.03 Absolute Neuts (auto) 4.3 Absolute Nucleated RBC 0.000 Nucleated RBC % (auto) 0.0 ESR 96 H Anion Gap 13 Estim Creat Clear Calc 48.5 Estimated GFR 37 POC Glucose 185 H Random Glucose 209 H Lactic Acid 0.9 Calcium 9.3 D Total Bilirubin 0.3 AST 35 ALT 25 Alkaline Phosphatase 212 H C-Reactive Protein 31.33 H Total Protein 6.9 Albumin 3.1 L 11/09/23 18:26 MCV MCH MCHC RDW Plt Count MPV Immature Gran % (Auto) Neut % (Auto) Lymph % (Auto) Catron % (Auto) Eos % (Auto) Baso % (Auto) Lymph # (Auto) Catron # (Auto) Eos # (Auto) Baso # (Auto) Abs Immat Gran (auto) Absolute Neuts (auto) Absolute Nucleated RBC Nucleated RBC % (auto) ESR Anion Gap Estim Creat Clear Calc Estimated GFR POC Glucose 177 H Random Glucose Lactic Acid Calcium Total Bilirubin AST ALT Alkaline Phosphatase C-Reactive Protein Total Protein Albumin Imaging Radiologist's Impressions: Impressions Foot X-Ray 11/09/23 14:25 IMPRESSION: 1. Progressive bone loss of the proximal fifth metatarsal consistent with osteomyelitis. 2. Chronic changes of the fourth metatarsal and calcaneus. 3. Orthopedic staple in the first metatarsal. 4. Edema in the soft tissues of the ankle and midfoot. Possible air collection in the soft tissues plantar side of the foot. CT may be helpful for further evaluation Foot X-Ray 11/09/23 14:25 IMPRESSION: 1. Loss of bone at the plantar surface of the cuboid suspicious for osteomyelitis. MRI would be helpful for further evaluation. 2. Soft tissue swelling at the plantar side of foot. Assessment and Plan (1) Osteomyelitis: Status: Acute Plan Pt is a 53-year-old male with a PMH significant for?HTN, HLD, insulin-dependent type 2 diabetes, diabetic/peripheral neuropathy, hx of osteomyelitis from chronic diabetic foot ulcers s/p right TMA, polysubstance use disorder on methadone, and mood disorder who originally presented to the ED on 10/27/2023 after being discharged from rehab with no place to go. Patient initially placed into physician observation in overflow, though moved back to the ED due to hypotension and worsening bilateral chronic feet wounds. Patient will be admitted to the hospital for osteomyelitis of bilateral feet secondary to chronic diabetic foot ulcers. Osteomyelitis of bilateral feet secondary to chronic diabetic foot ulcers X-ray of left foot found progressive bone loss of proximal 5th metatarsal consistent with osteomyelitis CT of left foot found likely osteomyelitis of 5th and 4th metatarsal as well as calcaneus' also found extensive edema without organized fluid collection or abscess X-ray right foot found loss of bone in the plantar surface of cuboid suspicious for osteomyelitis ESR and CRP markedly elevated 96 and 31.33, respectively Patient does not meet sepsis criteria: No fever, tachycardia, tachypnea, or leukocytosis; lactic acid WNL at 0.9 Will treat with vancomycin and cefepime, started 11/09/2023 General surgery consult ID consult Hypotension Patient hypotensive as low as 77/43 earlier today Much improved after 2.7 L of IVF Monitor BP HLD Continue statin HTN Hold lisinopril, clonidine due to hypotension Resume as warranted Insulin-dependent type 2 diabetes Sliding-scale insulin, Lantus Diabetic diet Mood disorder Continue quetiapine, alprazolam Polysubstance use disorder Continue methadone Full Code Attending:?Dr. Dias DVT Prophylaxis: Lovenox Pt will require a hospitalization of at least two nights for treatment of?acute bilateral osteomyelitis of feet. Patient require inpatient care for administration of IV antibiotics, close monitoring labs, and specialist consultation with General surgery and Wound Care. Quality Stroke Does the patient have a stroke diagnosis?: No VTE Prior VTE?: No VTE Risk Level:: Medical - moderate - high VTE Device Contraindication: Treatment Not Indicated VTE Drug Contraindication: N/A - Med Ordered
[2023-11-09] MEDS: cefEPime HCl 2 GM in 0.9 % Sodium Chloride 50 ML IV (20:01)
[2023-11-09] MEDS: Albumin Human 25 % 100 ML 133.33 ML IV ×2 (21:13→22:06)
--- NOTE | 2023-11-09 21:41 | MHC.CM.PN ---
Pt has been in ED for 11 days, pending safe disposition. Pt was at [facility] for 6 months prior to coming to [facility]. Referrals for respite have been made statewide without bed offers. [facility] medical respite declined to offer a bed. Pt is homeless and is oxygen dependent. He has an [employer] portable concentrator. Pt has a HX polysubstance abuse. Pt is on 195mg methadone daily. Pt did self medicate with his own klonopin and gabapentin while in the overflow unit. His belongings were examined and his controlled medications are now in the pharmacy. Pt is now being admitted with bilateral osteomyelitis in both feet. Pt is homeless. No PCP. Rollator walker. [employer] portable concentrator. No services. Not active with methadone clinic. Was guest dosing from [employer] while at [facility]. Pt states he is active with [facility], but he is not. D/C plan: IV antibiotic therapy for osteomyelitis. Will need placement.
[2023-11-09] MEDS: Atorvastatin Calcium 40 MG TABLET PO (22:07)
[2023-11-09 23:46] LABS: Glucose, Whole Blood 150 mg/dL (60-115)
[2023-11-10] MEDS: Insulin Glargine,Hum.rec.anlog 100 UNIT/ML 10 ML VIAL 32 UNIT SUBCUT ×2 (00:34→22:31)
[2023-11-10] MEDS: 0.9 % Sodium Chloride Flush 3 ML SYRINGE IVFLUSH ×3 (00:35→16:34)
[2023-11-10 06:03] LABS: MANUAL DIFF FLAG NO
[2023-11-10 06:22] LABS: Creatinine Clr Calc Pharmacy 65.2; Estimated Glomerular Filt Rate 52
[2023-11-10 06:24] LABS: Anion Gap 15 (12-20); Blood Urea Nitrogen 33 mg/dL (9-16); Calcium 9.6 mg/dL (8.4-10.2); Carbon Dioxide 23 mmol/L (22-29); Chloride 106 mmol/L (96-108); Creatinine Clr Calc Pharmacy 66.2; Estimated Glomerular Filt Rate 53; Glucose Random 316 mg/dL (60-115); Potassium 5.1 mmol/L (3.3-5.1); Sodium 139 mmol/L (135-145)
[2023-11-10 06:28] LABS: Basophils Percent Auto 0.6 % (0-2); Eosinophils Absolute Auto 0.1 X10*3/uL (0.0-0.4); Eosinophils Percent Auto 1.5 % (0-4); Hematocrit 35.2 % (42.0-52.0); Hemoglobin 11.1 g/dl (14.0-18.0); Imm Gran Abs Auto 0.04 X10*3/uL (0.00-0.03); Imm Gran Pct Auto 0.6 % (0.0-0.4); Lymphocytes Percent Auto 14.7 % (20-40); Mean Corpuscular HGB Conc 31.5 g/dl (31.0-36.0); Mean Corpuscular Hemoglobin 28.3 pg (27.0-33.0); Mean Corpuscular Volume 89.8 fL (80.0-98.0); Mean Platelet Volume 10.2 fL (9.4-12.4); Monocytes Absolute Auto 0.8 X10*3/uL (0.1-1.2); Monocytes Percent Auto 11.6 % (2-11); Neutrophils Absolute Auto 4.8 x10*3/uL (2.0-8.3); Platelet Count 117 X10*3/uL (160-400); Red Blood Count 3.92 X10*6/uL (4.60-5.80); Red Cell Distribution Width 16.1 % (11.0-16.0); White Blood Count 6.7 X10*3/uL (4.8-10.8)
--- NOTE | 2023-11-10 07:21 | PC.NURSE ---
Patient has slept most of the night. He wakes up when called by name and able to answer questions appropriately. Has not eaten dinner, sliding insulin held, Lantus from 42 units to 32 units at HS. Patient is able to reposition himself in bed, uses urinal independently. Patient ambulates to the restroom using a a walker and stand by assistance of 1 person. Patient curently resting in a hospital bed, call toth in reach, plan of care ongoing.
[2023-11-10 07:29] LABS: Glucose, Whole Blood 268 mg/dL (60-115)
[2023-11-10] MEDS: Insulin Lispro 100 UNIT/ML 3 ML VIAL SUBCUT ×4 (07:37→22:32)
[2023-11-10] MEDS: ALPRAZolam 0.5 MG TABLET 2 MG PO (07:39)
[2023-11-10] MEDS: methADONE HCl 20 MG/2 ML ORAL.CONC 195 MG PO (07:39)
[2023-11-10] MEDS: Acetaminophen 325 MG TABLET 975 MG PO ×2 (07:39→16:32)
[2023-11-10] MEDS: cefEPime HCl 2 GM in 0.9 % Sodium Chloride 50 ML IV (07:40)
--- NOTE | 2023-11-10 07:43 | HO.PM.IMPN ---
Subjective Subjective Date of Service: 11/10/23 Interval History: f/u diabetic foot ulcer, OM fever of 101 this morning, c/o pain in the foot hypotension resoled Physical Exam Vital Signs: Vital Signs: Last Vital Signs Temp 98.1 F 11/09/23 19:52 Pulse 74 11/09/23 19:52 Resp 16 11/09/23 19:52 BP 109/55 L 11/09/23 19:52 Pulse Ox 99 11/09/23 19:52 O2 Del Method Room Air, Nasal C annula 11/09/23 19:52 O2 Flow Rate 2 11/09/23 19:52 FiO2 99 11/05/23 18:24 Oxygen Flow Rate 2 10/28/23 00:15 BMI result Body Mass Index 27.1 General: awake, no distress Resp: CTA bilaterally CVS: S1, S2, RRR GI: +BS, NT, no distention Skin: Warm, dry Neuro: Cranial nerves II-XII grossly intact bilaterally. Motor grossly intact bilaterally Extremities: Left foot with erythema, warmth, and swelling with chronic midfoot wound on the lateral aspect with purulent drainage. Right foot s/p TMA with chronic appearing wound without discharge. Warmth and mild swelling noted, though no apparent erythema. As pictures in H and P Objective Data Active Medications Acetaminophen (Acetaminophen 325 Mg Tablet) 975 mg PO TID [facility] Last Admin: 11/10/23 07:39 Dose: 975 mg Documented By: HECTOR Acetaminophen (Acetaminophen 325 Mg Tablet) 650 mg PO Q6H PRN PRN Reason: Pain, Mild (Pain Scale 1-3) Alprazolam (Alprazolam 0.5 Mg Tablet) 1 mg PO BEDTIME PRN PRN Reason: insomnia Alprazolam (Alprazolam 0.5 Mg Tablet) 2 mg PO DAILY@0730 [facility] Last Admin: 11/10/23 07:39 Dose: 2 mg Documented By: HECTOR Atorvastatin Calcium (Atorvastatin Calcium 40 Mg Tablet) 40 mg PO BEDTIME [facility] Last Admin: 11/09/23 22:07 Dose: 40 mg Documented By: TANK Gabapentin (Gabapentin 300 Mg Capsule) 900 mg PO TID [facility] Last Admin: 11/09/23 17:29 Dose: Not Given Documented By: AYAZ Non-Admin Reason: Physician Held Med Glucose (Glucose Gel 15 Gm Gel..Gram.) 15 gm PO Q15M PRN; Protocol PRN Reason: per Hypoglycemia Standing Ord. Dextrose (D10) 250 mls @ 750 mls/hr IV Q15M PRN; Protocol PRN Reason: per Hypoglycemia Standing Ord. Cefepime HCl 2 gm/ Sodium (Chloride) 50 mls @ 100 mls/hr IV Q12H [facility] Last Admin: 11/10/23 07:40 Dose: 100 mls/hr Documented By: HECTOR Vancomycin HCl 1,500 mg/ (Sodium Chloride) 500 mls @ 333.333 mls/hr IV Q24H [facility] Ibuprofen (Ibuprofen 800 Mg Tablet) 800 mg PO TID PRN PRN Reason: Pain, Moderate(Pain Scale 4-6) Last Admin: 11/05/23 22:01 Dose: 800 mg Documented By: SHELL Insulin Glargine (Insulin Glargine,Hum.Rec.Anlog 100 Unit/Ml 10 Ml Vial) 32 unit SUBCUT BEDTIME [facility] Last Admin: 11/10/23 00:34 Dose: 32 unit Documented By: TANK Insulin Human Lispro (Insulin Lispro 100 Unit/Ml 3 Ml Vial) 20 unit SUBCUT TIDAC [facility] Last Admin: 11/10/23 07:29 Dose: Not Given Documented By: HECTOR Non-Admin Reason: See Note Insulin Human Lispro (Insulin Lispro 100 Unit/Ml 3 Ml Vial) 0 unit SUBCUT QIDACHS [facility]; Protocol Last Admin: 11/10/23 07:37 Dose: 6 unit Documented By: HECTOR Lisinopril (Lisinopril 20 Mg Tablet) 20 mg PO DAILY [facility]; Protocol Last Admin: 11/09/23 08:21 Dose: 20 mg Documented By: FERNANDO Melatonin (Melatonin 3 Mg Tablet) 6 mg PO BEDTIME PRN PRN Reason: Insomnia Methadone HCl (Methadone Hcl 20 Mg/2 Ml Oral.Conc) 195 mg PO DAILY [facility] Last Admin: 11/10/23 07:39 Dose: 195 mg Documented By: HECTOR Ondansetron HCl (Ondansetron Hcl 4 Mg/2 Ml Vial) 4 mg IVPUSH Q8H PRN PRN Reason: Nausea and Vomiting Pharmacy Consult (Consult Rx Vancomycin Dosing) 1 each MISCELLANE DAILY PRN PRN Reason: Consult order Quetiapine Fumarate (Quetiapine Fumarate 50 Mg Tablet) 50 mg PO TID [facility] Last Admin: 11/09/23 17:29 Dose: Not Given Documented By: AYAZ Non-Admin Reason: Physician Held Med Sodium Chloride (0.9 % Sodium Chloride Flush 3 Ml Syringe) 3 ml IVFLUSH QSHIFT [facility] Last Admin: 11/10/23 00:35 Dose: 3 ml Documented By: TANK Labs 11/10/23 05:46 11/10/23 05:46 Labs: Laboratory Results - last 24 hr 11/09/23 11/09/23 11/09/23 07:55 11:36 14:47 MCV 89.4 MCH 28.4 MCHC 31.8 RDW 16.1 H Plt Count 122 L D MPV 10.1 Immature Gran % (Auto) 0.4 Neut % (Auto) 63.4 Lymph % (Auto) 19.1 L Wilkin % (Auto) 15.0 H Eos % (Auto) 1.8 Baso % (Auto) 0.3 Lymph # (Auto) 1.3 Wilkin # (Auto) 1.0 Eos # (Auto) 0.1 Baso # (Auto) 0.0 Abs Immat Gran (auto) 0.03 Absolute Neuts (auto) 4.3 Absolute Nucleated RBC 0.000 Nucleated RBC % (auto) 0.0 ESR 96 H Anion Gap 13 Estim Creat Clear Calc 48.5 Estimated GFR 37 POC Glucose 170 H 196 H Random Glucose 209 H Lactic Acid Calcium 9.3 D Total Bilirubin 0.3 AST 35 ALT 25 Alkaline Phosphatase 212 H C-Reactive Protein 31.33 H Total Protein 6.9 Albumin 3.1 L 11/09/23 11/09/23 11/09/23 15:07 16:37 18:26 MCV MCH MCHC RDW Plt Count MPV Immature Gran % (Auto) Neut % (Auto) Lymph % (Auto) Wilkin % (Auto) Eos % (Auto) Baso % (Auto) Lymph # (Auto) Wilkin # (Auto) Eos # (Auto) Baso # (Auto) Abs Immat Gran (auto) Absolute Neuts (auto) Absolute Nucleated RBC Nucleated RBC % (auto) ESR Anion Gap Estim Creat Clear Calc Estimated GFR POC Glucose 185 H 177 H Random Glucose Lactic Acid 0.9 Calcium Total Bilirubin AST ALT Alkaline Phosphatase C-Reactive Protein Total Protein Albumin 11/09/23 11/10/23 11/10/23 23:42 05:46 05:46 MCV 89.8 MCH 28.3 MCHC 31.5 RDW 16.1 H Plt Count 117 L MPV 10.2 Immature Gran % (Auto) 0.6 H Neut % (Auto) 71.0 Lymph % (Auto) 14.7 L Wilkin % (Auto) 11.6 H Eos % (Auto) 1.5 Baso % (Auto) 0.6 Lymph # (Auto) 1.0 L Wilkin # (Auto) 0.8 Eos # (Auto) 0.1 Baso # (Auto) 0.0 Abs Immat Gran (auto) 0.04 H Absolute Neuts (auto) 4.8 Absolute Nucleated RBC 0.000 Nucleated RBC % (auto) 0.0 ESR Anion Gap 15 Estim Creat Clear Calc 66.2 65.2 Estimated GFR 53 POC Glucose 150 H Random Glucose Lactic Acid Calcium Total Bilirubin AST ALT Alkaline Phosphatase C-Reactive Protein Total Protein Albumin 11/10/23 11/10/23 05:46 07:19 MCV MCH MCHC RDW Plt Count MPV Immature Gran % (Auto) Neut % (Auto) Lymph % (Auto) Wilkin % (Auto) Eos % (Auto) Baso % (Auto) Lymph # (Auto) Wilkin # (Auto) Eos # (Auto) Baso # (Auto) Abs Immat Gran (auto) Absolute Neuts (auto) Absolute Nucleated RBC Nucleated RBC % (auto) ESR Anion Gap Estim Creat Clear Calc Estimated GFR 52 POC Glucose 268 H Random Glucose 316 H Lactic Acid Calcium 9.6 Total Bilirubin AST ALT Alkaline Phosphatase C-Reactive Protein Total Protein Albumin Assessment and Plan (1) Osteomyelitis: Status: Acute (2) Opioid use disorder: Status: Acute Plan Pt is a 53-year-old male with a PMH significant for?HTN, HLD, insulin-dependent type 2 diabetes, diabetic/peripheral neuropathy, hx of osteomyelitis from chronic diabetic foot ulcers s/p right TMA, polysubstance use disorder on methadone, and mood disorder who originally presented to the ED on 10/27/2023 after being discharged from rehab with no place to go. Patient initially placed into physician observation in overflow, though moved back to the ED due to hypotension and worsening bilateral chronic feet wounds. Patient will be admitted to the hospital for osteomyelitis of bilateral feet secondary to chronic diabetic foot ulcers. Osteomyelitis of bilateral feet secondary to chronic diabetic foot ulcers -IV Abx Cefepime -ID consult -Surgery consult Hypotension--Not due sepsis, resolved with IVF HLD Continue statin HTN-- Hold lisinopril, clonidine due to hypotension resume when BP stable Insulin-dependent type 2 diabetes Sliding-scale insulin, Lantus Diabetic diet Mood disorder Continue quetiapine, alprazolam Polysubstance use disorder Continue methadone Full Code Attending:?Dr. Dias DVT Prophylaxis: Lovenox need for inpt: IV Abx for OM, diabetic wound, expert evaluation for intervention Quality Stroke Does the patient have a stroke diagnosis?: No VTE Prior VTE?: No VTE Risk Level:: Medical - moderate - high VTE Device Contraindication: Treatment Not Indicated VTE Drug Contraindication: N/A - Med Ordered
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
[2023-11-10 08:23] VITALS: BP 115/70; PULSE 96; RESP 20; TEMP 38.9; O2SAT 94
--- NOTE | 2023-11-10 08:26 | PC.NURSE ---
Dr Alberto at bedside, awake patient has temp. patient was given Tylenol about 1 hour ago.
[2023-11-10] MEDS: Ibuprofen 800 MG TABLET PO (08:29)
[2023-11-10 08:36] VITALS: BP 143/70; PULSE 94; RESP 14; TEMP 38.3; O2SAT 97
[2023-11-10 09:36] VITALS: BMI 37.1
[2023-11-10 10:02] VITALS: BP 138/67; PULSE 92; RESP 18; TEMP 36.9; O2SAT 92
[2023-11-10 10:03] LABS: Glucose, Whole Blood 251 mg/dL (60-115)
--- NOTE | 2023-11-10 11:13 | MHC.CM.PN ---
EMR REVIEWED, PT W/BILATERAL FEET OSTEO WILL NEED 6 WKS IV ABX/PT PLACEMENT D/T SA AND HOMELESSNESS, PT WILL BE DIFFICULT TO PLACE D/T BEING HOMELESS AND MMTP, BC'S PENDING, CM WILL CONT TO FOLLOW DC NEEDS.
[2023-11-10 11:20] LABS: Glucose, Whole Blood 230 mg/dL (60-115)
--- NOTE | 2023-11-10 11:39 | PC.NURSE ---
POC 230 HELD STANDING DOSE OF 20 UNITS of lispro insulin per MD [place] covered with sliding scale see MAR
--- NOTE | 2023-11-10 11:43 | P.CONGS_ITS ---
History of Present Illness Consult details Consult date: 11/10/23 Reason for consult: wound care Narrative: Very complex 53-year-old gentleman with history of diabetes osteomyelitis diabetic foot ulcers and polysubstance abuse disorder presented to the emergency room with nonhealing ulcers. He was discharged from rehab with no place to go. He has been at a rehab for prolonged period of time. He was subsequently discharged and returned to the emergency room. He was concerned about his lower extremities. He now presents for vascular evaluation. Of note left lower extremity has prior fasciotomy with skin grafting sites this was done for an acute infection he reports several years ago Review of Systems 2 Review of Systems: Yes all other systems are reviewed and are negative Constitutional: Constitutional: Reports no additional constitutional complaints ENT: Reports Normal hearing present Cardiovascular: Cardiovascular: Denies chest pain, Denies chest pain at rest, Denies chest pain with activity and Denies pedal edema Respiratory: Respiratory: Denies cough Gastrointestinal: Gastrointestinal: Denies abdominal pain Musculoskeletal: Musculoskeletal: Denies abnormal gait, Denies muscle cramps and Denies radiating pain into limb Integumentary/Breasts: Skin/Breast: Denies skin ulcer and Denies wounds Neurologic: Reports Normal hearing present and Denies abnormal gait Psychiatric: Psychiatric: Reports no additional psychiatric complaints PMFSH Past Medical History Medical History Diabetes type 2 with atherosclerosis of arteries of extremities Opioid use disorder Ulcer of left foot Post-COVID chronic dyspnea Compartment syndrome of left lower extremity HTN (hypertension) Diabetes (~07/26/22) Family History Family History Other No pertinent family history Surgical History Surgical History Status post transmetatarsal amputation of right foot Social History Social History Household Members: None Housing: Unknown / Unable to assess Housing Other:: [place] [facility]. Do you presently have visiting nurse or other home services: No Unable to assess alcohol history related to: Unknown and Refusing to respond Alcohol intake: current Alcohol intake frequency: a few times a month Alcohol type: hard liquor Comment: pt refused bed alarm Patient Tobacco Use Status: Never used Tobacco e-Cigarette/Vaping Use: Never Used Second Hand Smoke Exposure: No Substance Use Type: Crack/Cocaine Advance Directives Date on File: 05/19/22 service: No Current occupational status: disabled Meds Allergies Allergy/AdvReac Type Severity Reaction Status Date / Time prochlorperazine Allergy Intermediate Hives Verified 10/28/23 00:18 [From Compazine] aspirin [ASA] Allergy Unknown HIVES Verified 10/28/23 00:18 naproxen [From NAPROSYN] Allergy Unknown HIVES Verified 10/28/23 00:18 NSAIDS (Non-Steroidal Allergy Unknown HIVES Verified 10/28/23 00:18 Anti-Inflamma [NSAIDS (NON-STEROIDAL ANTI-INFLAMMA] Penicillins [PENICILLINS] Allergy Unknown HIVES Verified 10/28/23 00:18 Active Medications: Current Medications Acetaminophen (Acetaminophen 325 Mg Tablet) 975 mg PO TID [facility] Last Admin: 11/10/23 07:39 Dose: 975 mg Acetaminophen (Acetaminophen 325 Mg Tablet) 650 mg PO Q6H PRN PRN Reason: Pain, Mild (Pain Scale 1-3) Alprazolam (Alprazolam 0.5 Mg Tablet) 1 mg PO BEDTIME PRN PRN Reason: insomnia Alprazolam (Alprazolam 0.5 Mg Tablet) 2 mg PO DAILY@0730 [facility] Last Admin: 11/10/23 07:39 Dose: 2 mg Atorvastatin Calcium (Atorvastatin Calcium 40 Mg Tablet) 40 mg PO BEDTIME [facility] Last Admin: 11/09/23 22:07 Dose: 40 mg Gabapentin (Gabapentin 300 Mg Capsule) 900 mg PO TID [facility] Last Admin: 11/09/23 17:29 Dose: Not Given Glucose (Glucose Gel 15 Gm Gel..Gram.) 15 gm PO Q15M PRN; Protocol PRN Reason: per Hypoglycemia Standing Ord. Dextrose (D10) 250 mls @ 750 mls/hr IV Q15M PRN; Protocol PRN Reason: per Hypoglycemia Standing Ord. Cefepime HCl 2 gm/ Sodium (Chloride) 50 mls @ 100 mls/hr IV Q12H [facility] Last Infusion: 11/10/23 09:08 Dose: Infused Vancomycin HCl 1,500 mg/ (Sodium Chloride) 500 mls @ 333.333 mls/hr IV Q24H [facility] Ibuprofen (Ibuprofen 800 Mg Tablet) 800 mg PO TID PRN PRN Reason: Pain, Moderate(Pain Scale 4-6) Last Admin: 11/10/23 08:29 Dose: 800 mg Insulin Glargine (Insulin Glargine,Hum.Rec.Anlog 100 Unit/Ml 10 Ml Vial) 32 unit SUBCUT BEDTIME [facility] Last Admin: 11/10/23 00:34 Dose: 32 unit Insulin Human Lispro (Insulin Lispro 100 Unit/Ml 3 Ml Vial) 20 unit SUBCUT TIDAC [facility] Last Admin: 11/10/23 11:38 Dose: Not Given Insulin Human Lispro (Insulin Lispro 100 Unit/Ml 3 Ml Vial) 0 unit SUBCUT QIDACHS [facility]; Protocol Last Admin: 11/10/23 07:37 Dose: 6 unit Lisinopril (Lisinopril 20 Mg Tablet) 20 mg PO DAILY [facility]; Protocol Last Admin: 11/09/23 08:21 Dose: 20 mg Melatonin (Melatonin 3 Mg Tablet) 6 mg PO BEDTIME PRN PRN Reason: Insomnia Methadone HCl (Methadone Hcl 20 Mg/2 Ml Oral.Conc) 195 mg PO DAILY [facility] Last Admin: 11/10/23 07:39 Dose: 195 mg Ondansetron HCl (Ondansetron Hcl 4 Mg/2 Ml Vial) 4 mg IVPUSH Q8H PRN PRN Reason: Nausea and Vomiting Pharmacy Consult (Consult Rx Vancomycin Dosing) 1 each MISCELLANE DAILY PRN PRN Reason: Consult order Quetiapine Fumarate (Quetiapine Fumarate 50 Mg Tablet) 50 mg PO TID [facility] Last Admin: 11/09/23 17:29 Dose: Not Given Sodium Chloride (0.9 % Sodium Chloride Flush 3 Ml Syringe) [facility] Last Admin: 11/10/23 07:46 Dose: 3 ml Home Medications ?Medication ?Instructions ?Recorded ?Confirmed ?Last Taken ?Type methadone 10 mg/mL oral 195 mg PO DAILY 04/25/22 10/29/23 08/04/22 History concentrate (Methadone Intensol) acetaminophen 325 mg tablet 975 mg PO TID 10/29/23 10/29/23 Unknown History alprazolam 1 mg tablet 1 mg PO BEDTIME PRN Anxiety 10/29/23 10/29/23 Unknown History alprazolam 1 mg tablet 2 mg PO QAM 10/29/23 10/29/23 Unknown History gabapentin 300 mg capsule 900 mg PO TID 10/29/23 10/29/23 Unknown History ibuprofen 800 mg tablet 800 mg PO Q8H PRN Pain (Scale 10/29/23 10/29/23 Unknown History Score 4-6) insulin glargine 100 unit/mL (3 42 unit subcut QPM 10/29/23 10/29/23 Unknown History mL) subcutaneous pen (Lantus Solostar U-100 Insulin) insulin lispro 100 unit/mL See Rx Instructions .Route .COMPLEX 10/29/23 10/29/23 Unknown History subcutaneous pen insulin lispro 100 unit/mL 20 unit subcut TIDAC 10/29/23 10/29/23 Unknown History subcutaneous solution quetiapine 50 mg tablet (Seroquel) 50 mg PO TID 10/29/23 10/29/23 Unknown History Physical Exam 2 Vital Signs: Vital Signs: Last Vital Signs Temp 98.4 F 11/10/23 10:02 Pulse 92 11/10/23 10:02 Resp 18 11/10/23 10:02 BP 138/67 11/10/23 10:02 Pulse Ox 92 11/10/23 10:02 O2 Del Method Nasal Cannula 11/10/23 10:02 O2 Flow Rate 2 11/10/23 10:02 FiO2 99 11/05/23 18:24 Oxygen Flow Rate 2 10/28/23 00:15 BMI result Body Mass Index 37.1 Const: General: cooperative, healthy appearing and comfortable O rientation/consciousness: oriented to person, oriented to place and oriented to time HEENT: Head: Yes normal to inspection Neck: Neck: Yes normal visual inspection Carotids: no bruits Chest: Chest palpation & inspection: normal inspection of the chest Resp: Effort & Inspection: normal respiratory effort and able to speak in complete sentences Auscultation: clear to auscultation bilaterally, no crackles, no rales, no rhonchi and no wheezes Cardio: Rate: regular rate Rhythm: regular rhythm Heart sounds: S1 normal heart sound present and S2 normal heart sound present Bruits: no carotid bruits Peripheral pulses: Peripheral pulses 2+ throughout GI: Inspection: Yes normal to inspection Skin: Other: Right trans met healed well. He is got bilateral calcaneus ulcers. Wounds: no wounds Hair: normal Neuro: General: oriented to person, oriented to place and oriented to time Cranial nerves: Yes CN's II-XII intact bilaterally and Yes Normal hearing present Cognition (Neuro): normal cognition Motor exam (neuro): 5/5 motor strength present throughout Extrem: Other: venous exam: No significant superficial varicosities or spider telangiectasias, minimal edema General: No clubbing, No cyanosis and No edema Psych: Appearance: grossly normal Mental Status: mental status grossly normal Speech and movement: Normal speech and movement present Results Labs 11/10/23 05:46 11/10/23 05:46 Labs: Abnormal lab results 11/09/23 11/09/23 11/09/23 Range/Units 14:47 15:07 18:26 RBC 3.59 L D (4.60-5.80) X10*6/uL Hgb 10.2 L D (14.0-18.0) g/dl Hct 32.1 L D (42.0-52.0) % RDW 16.1 H (11.0-16.0) % Plt Count 122 L D (160-400) X10*3/uL Immature Gran % (Auto) (0.0-0.4) % Lymph % (Auto) 19.1 L (20-40) % Curry % (Auto) 15.0 H (2-11) % Lymph # (Auto) (1.2-4.9) X10*3/uL Abs Immat Gran (auto) (0.00-0.03) X10*3/uL ESR 96 H (0-15) MM/HR Potassium 5.2 H (3.3-5.1) mmol/L BUN 46 H (9-16) mg/dL Creatinine 1.91 H (0.5-1.4) mg/dL POC Glucose 185 H 177 H (60-115) mg/dL Random Glucose 209 H (60-115) mg/dL Alkaline Phosphatase 212 H (39-117) U/L C-Reactive Protein 31.33 H (< or = 0.50) mg/dL Albumin 3.1 L (3.5-5.0) g/dL 11/09/23 11/10/23 11/10/23 Range/Units 23:42 05:46 07:19 RBC 3.92 L (4.60-5.80) X10*6/uL Hgb 11.1 L (14.0-18.0) g/dl Hct 35.2 L (42.0-52.0) % RDW 16.1 H (11.0-16.0) % Plt Count 117 L (160-400) X10*3/uL Immature Gran % (Auto) 0.6 H (0.0-0.4) % Lymph % (Auto) 14.7 L (20-40) % Curry % (Auto) 11.6 H (2-11) % Lymph # (Auto) 1.0 L (1.2-4.9) X10*3/uL Abs Immat Gran (auto) 0.04 H (0.00-0.03) X10*3/uL ESR (0-15) MM/HR Potassium (3.3-5.1) mmol/L BUN 33 H (9-16) mg/dL Creatinine 1.42 H (0.5-1.4) mg/dL POC Glucose 150 H 268 H (60-115) mg/dL Random Glucose 316 H (60-115) mg/dL Alkaline Phosphatase (39-117) U/L C-Reactive Protein (< or = 0.50) mg/dL Albumin (3.5-5.0) g/dL 11/10/23 11/10/23 Range/Units 09:59 11:03 RBC (4.60-5.80) X10*6/uL Hgb (14.0-18.0) g/dl Hct (42.0-52.0) % RDW (11.0-16.0) % Plt Count (160-400) X10*3/uL Immature Gran % (Auto) (0.0-0.4) % Lymph % (Auto) (20-40) % Curry % (Auto) (2-11) % Lymph # (Auto) (1.2-4.9) X10*3/uL Abs Immat Gran (auto) (0.00-0.03) X10*3/uL ESR (0-15) MM/HR Potassium (3.3-5.1) mmol/L BUN (9-16) mg/dL Creatinine (0.5-1.4) mg/dL POC Glucose 251 H 230 H (60-115) mg/dL Random Glucose (60-115) mg/dL Alkaline Phosphatase (39-117) U/L C-Reactive Protein (< or = 0.50) mg/dL Albumin (3.5-5.0) g/dL Short CBC 11/09/23 11/10/23 Range/Units 14:47 05:46 WBC 6.8 6.7 (4.8-10.8) X10*3/uL Hgb 10.2 L D 11.1 L (14.0-18.0) g/dl Hct 32.1 L D 35.2 L (42.0-52.0) % Plt Count 122 L D 117 L (160-400) X10*3/uL BMP 11/09/23 11/10/23 11/10/23 14:47 05:46 05:46 Sodium 137 139 Potassium 5.2 H 5.1 Chloride 101 106 Carbon Dioxide 28 23 BUN 46 H 33 H Creatinine 1.91 H 1.40 1.42 H Calcium 9.3 D 9.6 Liver Function 11/09/23 Range/Units 14:47 Total Bilirubin 0.3 (0.0-1.0) mg/dL AST 35 (5-37) U/L ALT 25 (0-40) U/L Alkaline Phosphatase 212 H (39-117) U/L Albumin 3.1 L (3.5-5.0) g/dL All other labs normal. Assessment and Plan (1) Osteomyelitis: Qualifiers: Osteomyelitis type: other Osteomyelitis location: foot Laterality: u nspecified laterality Qualified Code(s): M86.8X7 - Other osteomyelitis, ankle and foot Status: Acute Plan In short patient has nonhealing bilateral lower extremity ulcers. He had been seen nearly a year ago and at that time there was concern about these infections and possible risk of amputations. I have taken the liberty of ordering noninvasive arterial testing. I do believe due to the chronic nature of these wounds he may be benefitted by a amputation of the lower extremity. At the current time he is refusing. I did discuss the noninvasive testing and we will obtain those in formulate a plan from there. Thank you for allowing us to assist in his care. If there are any questions or concerns please do not hesitate to contact us Procedures Date of Service Date of Service: 11/10/23
--- NOTE | 2023-11-10 11:46 | PC.NURSE ---
Pt admitted to [facility] from [facility] where he has been since 10/28/2023. Pt is a poor historian unable to provided sequence of events leading up to coming to the ER . admission assessment completed by obtaining what information was in the chart and what pt provided
[2023-11-10 13:40] VITALS: BMI 38.7
--- NOTE | 2023-11-10 13:54 | PHA.MEDREC ---
Pharmacy Consult ? Medication Reconciliation Pharmacy has completed the medication reconciliation. med rec done by Caryn De La Rosa on 10/28
--- NOTE | 2023-11-10 14:22 | HO.SKINPHOTO ---
Left foot: Right TMA:
[2023-11-10 15:11] VITALS: BP 139/74; PULSE 61; RESP 18; TEMP 36.7; O2SAT 93
--- NOTE | 2023-11-10 16:08 | P.CNID_ITS ---
History of Present Illness Data of Consult Service Date: 11/10/23 Requesting physician: Luis Alberto Primary Care Provider: None Physician HPI Reason for consult: fever unknown origin He comes in homeless and has fever. He has temperature to 101. He has no nausea or vomiting He has no neck stiffness. He has chronic foot ulcers and now open area left lateral foot,chronic OM,nonhealing. Review of Systems 2 Review of Systems: Yes all other systems are reviewed and are negative PMFSH Past Medical History Medical History Diabetes type 2 with atherosclerosis of arteries of extremities Opioid use disorder Ulcer of left foot Post-COVID chronic dyspnea Compartment syndrome of left lower extremity HTN (hypertension) Diabetes (~07/26/22) Family History Family History Other No pertinent family history Family history: reviewed and not pertinent Surgical History Surgical History Status post transmetatarsal amputation of right foot Social History Social History Household Members: None Housing: Unknown / Unable to assess Housing Other:: [facility]. Do you presently have visiting nurse or other home services: No Unable to assess alcohol history related to: Unknown and Refusing to respond Alcohol intake: current Alcohol intake frequency: a few times a month Alcohol type: hard liquor Comment: pt refused bed alarm Patient Tobacco Use Status: Never used Tobacco e-Cigarette/Vaping Use: Never Used Second Hand Smoke Exposure: No Substance Use Type: Crack/Cocaine Advance Directives Date on File: 05/19/22 service: No Current occupational status: disabled Meds Allergies Allergy/AdvReac Type Severity Reaction Status Date / Time prochlorperazine Allergy Intermediate Hives Verified 10/28/23 00:18 [From Compazine] aspirin [ASA] Allergy Unknown HIVES Verified 10/28/23 00:18 naproxen [From NAPROSYN] Allergy Unknown HIVES Verified 10/28/23 00:18 NSAIDS (Non-Steroidal Allergy Unknown HIVES Verified 10/28/23 00:18 Anti-Inflamma [NSAIDS (NON-STEROIDAL ANTI-INFLAMMA] Penicillins [PENICILLINS] Allergy Unknown HIVES Verified 10/28/23 00:18 Active Medications: Current Medications Acetaminophen (Acetaminophen 325 Mg Tablet) 975 mg PO TID [facility] Last Admin: 11/10/23 07:39 Dose: 975 mg Acetaminophen (Acetaminophen 325 Mg Tablet) 650 mg PO Q6H PRN PRN Reason: Pain, Mild (Pain Scale 1-3) Alprazolam (Alprazolam 0.5 Mg Tablet) 1 mg PO BEDTIME PRN PRN Reason: insomnia Alprazolam (Alprazolam 0.5 Mg Tablet) 2 mg PO DAILY@0730 [facility] Last Admin: 11/10/23 07:39 Dose: 2 mg Atorvastatin Calcium (Atorvastatin Calcium 40 Mg Tablet) 40 mg PO BEDTIME [facility] Last Admin: 11/09/23 22:07 Dose: 40 mg Gabapentin (Gabapentin 300 Mg Capsule) 900 mg PO TID [facility] Last Admin: 11/09/23 17:29 Dose: Not Given Glucose (Glucose Gel 15 Gm Gel..Gram.) 15 gm PO Q15M PRN; Protocol PRN Reason: per Hypoglycemia Standing Ord. Dextrose (D10) 250 mls @ 750 mls/hr IV Q15M PRN; Protocol PRN Reason: per Hypoglycemia Standing Ord. Cefepime HCl 2 gm/ Sodium (Chloride) 50 mls @ 100 mls/hr IV Q12H [facility] Last Infusion: 11/10/23 09:08 Dose: Infused Vancomycin HCl 1,500 mg/ (Sodium Chloride) 500 mls @ 333.333 mls/hr IV Q24H [facility] Ibuprofen (Ibuprofen 800 Mg Tablet) 800 mg PO TID PRN PRN Reason: Pain, Moderate(Pain Scale 4-6) Last Admin: 11/10/23 08:29 Dose: 800 mg Insulin Glargine (Insulin Glargine,Hum.Rec.Anlog 100 Unit/Ml 10 Ml Vial) 32 unit SUBCUT BEDTIME [facility] Last Admin: 11/10/23 00:34 Dose: 32 unit Insulin Human Lispro (Insulin Lispro 100 Unit/Ml 3 Ml Vial) 0 unit SUBCUT QIDACHS [facility]; Protocol Last Admin: 11/10/23 11:43 Dose: 4 unit Insulin Human Lispro (Insulin Lispro 100 Unit/Ml 3 Ml Vial) 5 unit SUBCUT TIDAC [facility] Lisinopril (Lisinopril 20 Mg Tablet) 20 mg PO DAILY [facility]; Protocol Last Admin: 11/09/23 08:21 Dose: 20 mg Melatonin (Melatonin 3 Mg Tablet) 6 mg PO BEDTIME PRN PRN Reason: Insomnia Methadone HCl (Methadone Hcl 20 Mg/2 Ml Oral.Conc) 195 mg PO DAILY [facility] Last Admin: 11/10/23 07:39 Dose: 195 mg Ondansetron HCl (Ondansetron Hcl 4 Mg/2 Ml Vial) 4 mg IVPUSH Q8H PRN PRN Reason: Nausea and Vomiting Pharmacy Consult (Consult Rx Vancomycin Dosing) 1 each MISCELLANE DAILY PRN PRN Reason: Consult order Quetiapine Fumarate (Quetiapine Fumarate 50 Mg Tablet) 50 mg PO TID [facility] Last Admin: 11/09/23 17:29 Dose: Not Given Sodium Chloride (0.9 % Sodium Chloride Flush 3 Ml Syringe) 3 ml IVFLUSH QSHIFT [facility] Last Admin: 11/10/23 07:46 Dose: 3 ml Home Medications ?Medication ?Instructions ?Recorded ?Confirmed ?Last Taken ?Type methadone 10 mg/mL oral 195 mg PO DAILY 04/25/22 10/29/23 08/04/22 History concentrate (Methadone Intensol) acetaminophen 325 mg tablet 975 mg PO TID 10/29/23 10/29/23 Unknown History alprazolam 1 mg tablet 1 mg PO BEDTIME PRN Anxiety 10/29/23 10/29/23 Unknown History alprazolam 1 mg tablet 2 mg PO QAM 10/29/23 10/29/23 Unknown History gabapentin 300 mg capsule 900 mg PO TID 10/29/23 10/29/23 Unknown History ibuprofen 800 mg tablet 800 mg PO Q8H PRN Pain (Scale 10/29/23 10/29/23 Unknown History Score 4-6) insulin glargine 100 unit/mL (3 42 unit subcut QPM 10/29/23 10/29/23 Unknown History mL) subcutaneous pen (Lantus Solostar U-100 Insulin) insulin lispro 100 unit/mL See Rx Instructions .Route .COMPLEX 10/29/23 10/29/23 Unknown History subcutaneous pen insulin lispro 100 unit/mL 20 unit subcut TIDAC 10/29/23 10/29/23 Unknown History subcutaneous solution quetiapine 50 mg tablet (Seroquel) 50 mg PO TID 10/29/23 10/29/23 Unknown History Physical Exam 2 Vital Signs: Vital Signs: Last Vital Signs Temp 98.1 F 11/10/23 15:11 Pulse 61 11/10/23 15:11 Resp 18 11/10/23 15:11 BP 139/74 11/10/23 15:11 Pulse Ox 93 11/10/23 15:11 O2 Del Method Room Air 11/10/23 15:11 O2 Flow Rate 2 11/10/23 10:02 FiO2 99 11/05/23 18:24 Oxygen Flow Rate 2 10/28/23 00:15 BMI result Body Mass Index 38.7 Const: General: cooperative HEENT: Head: Yes normal to inspection Face and sinus: Yes normal facial exam Mouth: Normal oral and palatal mucosa present Teeth and gingiva: d entition normal Eyes: General: appearance normal, both eyes and all related structures P upils: Equal, round and reactive pupils present Resp: Effort & Inspection: normal respiratory effort Cardio: Rate: regular rate Rhythm: regular rhythm GI: Palpation (GI): Soft to palpation and nontender : General: Yes no CVA tenderness Back/Spine/Pelvis: Back: no CVA tenderness Skin: General skin exam: no rashes or lesions noted Neuro: General: moves all extremities Cranial nerves: Yes Equal, round and reactive pupils present Extrem: Other: left lateral foot some bleeding,chronic wound General: Yes normal to inspection Psych: Appearance: grossly normal Results Labs 11/10/23 05:46 11/10/23 05:46 Labs: Short CBC 11/10/23 Range/Units 05:46 WBC 6.7 (4.8-10.8) X10*3/uL Hgb 11.1 L (14.0-18.0) g/dl Hct 35.2 L (42.0-52.0) % Plt Count 117 L (160-400) X10*3/uL BMP 11/10/23 11/10/23 05:46 05:46 Sodium 139 Potassium 5.1 Chloride 106 Carbon Dioxide 23 BUN 33 H Creatinine 1.40 1.42 H Calcium 9.6 Assessment and Plan (1) Diabetic foot ulcer: Status: Acute He has chronic wounds,OM not acute but chronic. He declined IV antibiotics for six weeks when I saw him in hospital two years ago. He is homeless He has fever,blood cultures pending. There is minor cellulitis around wound Would continue Cefepima and Vancomycin for now possible several days until placed. Would hold off any PICC line as patient declines IV antibiotics in past for OM and signs out AMA. Await blood cultures final.
[2023-11-10 16:19] LABS: Glucose, Whole Blood 192 mg/dL (60-115)
[2023-11-10] MEDS: vancomycin HCL 1,500 MG in 0.9 % Sodium Chloride 500 ML 333.33 MG IV (17:43)
[2023-11-10 19:23] VITALS: BP 139/75; PULSE 81; RESP 18; TEMP 36.6; O2SAT 93
[2023-11-10 20:25] LABS: Glucose, Whole Blood 206 mg/dL (60-115)
[2023-11-10] MEDS: Atorvastatin Calcium 40 MG TABLET PO (22:31)
--- NOTE | 2023-11-11 01:06 | PC.NURSE ---
pt uncooperative tonite just before vancomycin infused iv site became painful and unable to flush pt. refused new iv restart he didn't want any more sticks :stated and didn't get his dose of antibiotic CEFAPIME notified will try again later s
--- NOTE | 2023-11-11 07:22 | PC.NURSE ---
Offered to attempt to place IV for patient and he refused at this time, Primary RN to message provider.
[2023-11-11 07:24] VITALS: BP 168/80; PULSE 97; RESP 18; TEMP 36.3; O2SAT 96
[2023-11-11 07:39] LABS: Glucose, Whole Blood 199 mg/dL (60-115)
--- NOTE | 2023-11-11 08:07 | PC.NURSE ---
Pt accepting of IV attempt. Unsuccessful x 2.
[2023-11-11] MEDS: methADONE HCl 20 MG/2 ML ORAL.CONC 195 MG PO (08:21)
[2023-11-11] MEDS: ALPRAZolam 0.5 MG TABLET 2 MG PO (08:22)
[2023-11-11] MEDS: Acetaminophen 325 MG TABLET 975 MG PO ×2 (08:22→14:24)
--- NOTE | 2023-11-11 08:26 | HO.PM.IMPN ---
Subjective Subjective Date of Service: 11/11/23 Interval History: F/u on diabetic foot ulcer and OM fever resolved, he refusing IV Physical Exam Vital Signs: Vital Signs: Last Vital Signs Temp 97.3 F 11/11/23 07:24 Pulse 97 11/11/23 07:24 Resp 18 11/11/23 07:24 BP 168/80 H 11/11/23 07:24 Pulse Ox 96 11/11/23 07:24 O2 Del Method Room Air 11/11/23 07:24 O2 Flow Rate 2 11/10/23 19:23 FiO2 99 11/05/23 18:24 Oxygen Flow Rate 2 10/28/23 00:15 BMI result Body Mass Index 38.7 General: awake, no distress Resp: CTA bilaterally CVS: S1, S2, RRR GI: +BS, NT, no distention Skin: Warm, dry Neuro: Cranial nerves II-XII grossly intact bilaterally. Motor grossly intact bilaterally Extremities: Left foot with erythema, warmth, and swelling with chronic midfoot wound on the lateral aspect with purulent drainage. Right foot s/p TMA with chronic appearing wound without discharge. Warmth and mild swelling noted, though no apparent erythema. As pictures in H and P Objective Data Active Medications Acetaminophen (Acetaminophen 325 Mg Tablet) 975 mg PO TID [facility] Last Admin: 11/11/23 08:22 Dose: 975 mg Documented By: CATHERINE Acetaminophen (Acetaminophen 325 Mg Tablet) 650 mg PO Q6H PRN PRN Reason: Pain, Mild (Pain Scale 1-3) Alprazolam (Alprazolam 0.5 Mg Tablet) 1 mg PO BEDTIME PRN PRN Reason: insomnia Alprazolam (Alprazolam 0.5 Mg Tablet) 2 mg PO DAILY@0730 [facility] Last Admin: 11/11/23 08:22 Dose: 2 mg Documented By: CATHERINE Atorvastatin Calcium (Atorvastatin Calcium 40 Mg Tablet) 40 mg PO BEDTIME [facility] Last Admin: 11/10/23 22:31 Dose: 40 mg Documented By: LUAN Gabapentin (Gabapentin 300 Mg Capsule) 900 mg PO TID [facility] Last Admin: 11/09/23 17:29 Dose: Not Given Documented By: AYAZ Non-Admin Reason: Physician Held Med Glucose (Glucose Gel 15 Gm Gel..Gram.) 15 gm PO Q15M PRN; Protocol PRN Reason: per Hypoglycemia Standing Ord. Dextrose (D10) 250 mls @ 750 mls/hr IV Q15M PRN; Protocol PRN Reason: per Hypoglycemia Standing Ord. Cefepime HCl 2 gm/ Sodium (Chloride) 50 mls @ 100 mls/hr IV Q12H [facility] Last Admin: 11/10/23 22:23 Dose: Not Given Documented By: LUAN Non-Admin Reason: Patient Refused Vancomycin HCl 1,500 mg/ (Sodium Chloride) 500 mls @ 333.333 mls/hr IV Q24H [facility] Last Infusion: 11/10/23 21:48 Dose: Infused Documented By: LUAN Ibuprofen (Ibuprofen 800 Mg Tablet) 800 mg PO TID PRN PRN Reason: Pain, Moderate(Pain Scale 4-6) Last Admin: 11/10/23 08:29 Dose: 800 mg Documented By: HECTOR Insulin Glargine (Insulin Glargine,Hum.Rec.Anlog 100 Unit/Ml 10 Ml Vial) 32 unit SUBCUT BEDTIME [facility] Last Admin: 11/10/23 22:31 Dose: 32 unit Documented By: LUAN Insulin Human Lispro (Insulin Lispro 100 Unit/Ml 3 Ml Vial) 0 unit SUBCUT QIDACHS [facility]; Protocol Last Admin: 11/10/23 22:32 Dose: 4 unit Documented By: LUAN Insulin Human Lispro (Insulin Lispro 100 Unit/Ml 3 Ml Vial) 5 unit SUBCUT TIDAC [facility] Last Admin: 11/10/23 16:26 Dose: Not Given Documented By: FANNIE Non-Admin Reason: No Insulin Coverage Lisinopril (Lisinopril 20 Mg Tablet) 20 mg PO DAILY [facility]; Protocol Last Admin: 11/09/23 08:21 Dose: 20 mg Documented By: FERNANDO Melatonin (Melatonin 3 Mg Tablet) 6 mg PO BEDTIME PRN PRN Reason: Insomnia Methadone HCl (Methadone Hcl 20 Mg/2 Ml Oral.Conc) 195 mg PO DAILY [facility] Last Admin: 11/11/23 08:21 Dose: 195 mg Documented By: CATHERINE Ondansetron HCl (Ondansetron Hcl 4 Mg/2 Ml Vial) 4 mg IVPUSH Q8H PRN PRN Reason: Nausea and Vomiting Pharmacy Consult (Consult Rx Vancomycin Dosing) 1 each MISCELLANE DAILY PRN PRN Reason: Consult order Quetiapine Fumarate (Quetiapine Fumarate 50 Mg Tablet) 50 mg PO TID [facility] Last Admin: 11/09/23 17:29 Dose: Not Given Documented By: AYAZ Non-Admin Reason: Physician Held Med Sodium Chloride (0.9 % Sodium Chloride Flush 3 Ml Syringe) 3 ml IVFLUSH QSHIFT [facility] Last Admin: 11/11/23 01:05 Dose: Not Given Documented By: LUAN Non-Admin Reason: No Access Labs 11/10/23 05:46 11/10/23 05:46 Labs: Laboratory Results - last 24 hr 11/10/23 11/10/23 11/10/23 09:59 11:03 16:00 POC Glucose 251 H 230 H 192 H 11/10/23 11/11/23 20:10 07:29 POC Glucose 206 H 199 H Microbiology Microbiology Results: Microbiology 11/09/23 16:39 Blood Culture - Preliminary Blood - Venous No growth after 24 hours. 11/09/23 16:37 Blood Culture - Preliminary Blood - Venous No growth after 24 hours. Assessment and Plan (1) Osteomyelitis: Status: Acute (2) Opioid use disorder: Status: Acute Plan 53-year-old male with a PMH significant for?HTN, HLD, insulin-dependent type 2 diabetes, diabetic/peripheral neuropathy, hx of osteomyelitis from chronic diabetic foot ulcers s/p right TMA, polysubstance use disorder on methadone, and mood disorder who originally presented to the ED on 10/27/2023 after being discharged from rehab with no place to go. Patient initially placed into physician observation in overflow, though moved back to the ED due to hypotension and worsening bilateral chronic feet wounds. Patient will be admitted to the hospital for osteomyelitis of bilateral feet secondary to chronic diabetic foot ulcers. Osteomyelitis (OM) of bilateral feet secondary to chronic diabetic foot ulcers -IV Abx Cefepime and Vancomycin -ID consult reom IV for now, hold PICC, he had declined PICC in the past -Vascular surgery recommend amputation given the chronic nature of his wound, however he's refusing Hypotension--Not due sepsis, resolved with IVF HLD Continue statin HTN--continue lisinopril, restart lisinopril Insulin-dependent type 2 diabetes Sliding-scale insulin, Lantus, and pre meal insulin Diabetic diet Mood disorder Continue quetiapine, alprazolam Polysubstance use disorder Continue methadone Full Code DVT Prophylaxis: Lovenox need for inpt: IV Abx for OM, diabetic wound, expert evaluation for intervention Quality Stroke Does the patient have a stroke diagnosis?: No VTE Prior VTE?: No VTE Risk Level:: Medical - moderate - high VTE Device Contraindication: Treatment Not Indicated VTE Drug Contraindication: N/A - Med Ordered
[2023-11-11] MEDS: Insulin Lispro 100 UNIT/ML 3 ML VIAL SUBCUT ×6 (08:29→16:56)
[2023-11-11] MEDS: lisinopriL 20 MG TABLET PO (09:22)
[2023-11-11 11:28] LABS: Glucose, Whole Blood 209 mg/dL (60-115)
[2023-11-11 15:34] VITALS: BP 145/77; PULSE 69; RESP 16; TEMP 36.1; O2SAT 95
[2023-11-11 16:23] LABS: Glucose, Whole Blood 171 mg/dL (60-115)
[2023-11-11 16:26] LABS: Creatinine Clr Calc Pharmacy 129.1; Estimated Glomerular Filt Rate > 60
[2023-11-11 16:53] LABS: Vancomycin Random 7.4 mcg/mL (15-20)
--- NOTE | 2023-11-11 17:02 | HE.PHANOTE ---
RE: vanco Patient's creatinine improved, level on 11/10 came back at 7.4mg/L. Increased dose to 1500mg Q12H with predicted trough of 17.6, AUC of 592. Next level to be drawn 11/11 @1800
--- NOTE | 2023-11-11 17:37 | PC.NURSE ---
Pt has no IV access. Pt at first refused to allow anyone to try to get Iv access. Later, pt allowed Jordi charge nurse to attempt IV placement, which was unsuccessful. Pt still without IV access, and has [address] Alberto aware.
--- NOTE | 2023-11-11 19:25 | PC.NURSE ---
patient refusing to respond to pain question, patient refusing IV placement for antibiotic therapy (MD aware per first shift report RN to RN report), patient refusing vital signs. patient educated on the importance of adhering to the Drs plan of care and the benefits of antibiotic therapy for wound to bilateral feet. patient states, I do not care, I'm not getting a fucking IV. RN did not press the patient further to keep the situation from escalating. Patient is aware that they may change their mind and request an IV and their antibiotics at any time. call toth within patient's reach, bed in lowest position, safety and comfort maintained within the parameters allowed by patient.
[2023-11-12 03:35] VITALS: BP 140/70; PULSE 65; RESP 18; TEMP 36.5; O2SAT 97
[2023-11-12 06:59] VITALS: BP 152/70; PULSE 90; RESP 19; TEMP 36.6; O2SAT 98
--- NOTE | 2023-11-12 07:19 | PC.NURSE ---
patient refuse assessment and check-in on this shift, high falls risk, refuses to ask for assistance or notify staff when needing to ambulating. He is on IV antibiotics, refuses MICHELLE, refused medication.
[2023-11-12 07:20] LABS: Glucose, Whole Blood 250 mg/dL (60-115)
--- NOTE | 2023-11-12 08:28 | ECG_ITS ---
Test Reason : check QTC Blood Pressure : / mmHG Vent. Rate : 088 BPM Atrial Rate : 088 BPM P-R Int : 194 ms QRS Dur : 078 ms QT Int : 348 ms P-R-T Axes : 029 -06 011 degrees QTc Int : 421 ms Normal sinus rhythm Normal ECG When compared with ECG of 02-DEC-2022 15:16, Nonspecific T wave abnormality no longer evident in Lateral leads QT has lengthened Referred By: Luis Alberto Electronically Signed By:BENJAMIN GASPAR MD
--- NOTE | 2023-11-12 08:28 | HO.PM.IMPN ---
Subjective Subjective Date of Service: 11/12/23 Physical Exam Vital Signs: Vital Signs: Last Vital Signs Temp 97.9 F 11/12/23 06:59 Pulse 90 11/12/23 06:59 Resp 19 11/12/23 06:59 BP 152/70 H 11/12/23 06:59 Pulse Ox 98 11/12/23 06:59 O2 Del Method Nasal Cannula 11/12/23 06:59 O2 Flow Rate 1 11/12/23 06:59 FiO2 99 11/05/23 18:24 Oxygen Flow Rate 2 10/28/23 00:15 BMI result Body Mass Index 38.7 Objective Data Active Medications Acetaminophen (Acetaminophen 325 Mg Tablet) 975 mg PO TID [facility] Last Admin: 11/11/23 19:31 Dose: Not Given Documented By: MICHAEL Non-Admin Reason: Patient Refused Acetaminophen (Acetaminophen 325 Mg Tablet) 650 mg PO Q6H PRN PRN Reason: Pain, Mild (Pain Scale 1-3) Alprazolam (Alprazolam 0.5 Mg Tablet) 1 mg PO BEDTIME PRN PRN Reason: insomnia Atorvastatin Calcium (Atorvastatin Calcium 40 Mg Tablet) 40 mg PO BEDTIME [facility] Last Admin: 11/11/23 19:32 Dose: Not Given Documented By: MICHAEL Non-Admin Reason: Patient Refused Doxycycline Monohydrate (Doxycycline Monohydrate 100 Mg Capsule) 100 mg PO Q12H [facility] Gabapentin (Gabapentin 300 Mg Capsule) 900 mg PO TID [facility] Last Admin: 11/09/23 17:29 Dose: Not Given Documented By: AYAZ Non-Admin Reason: Physician Held Med Glucose (Glucose Gel 15 Gm Gel..Gram.) 15 gm PO Q15M PRN; Protocol PRN Reason: per Hypoglycemia Standing Ord. Dextrose (D10) 250 mls @ 750 mls/hr IV Q15M PRN; Protocol PRN Reason: per Hypoglycemia Standing Ord. Cefepime HCl 2 gm/ Sodium (Chloride) 50 mls @ 100 mls/hr IV Q12H [facility] Last Admin: 11/11/23 19:29 Dose: Not Given Documented By: MICHAEL Non-Admin Reason: patient refused, refusing IV Vancomycin HCl 1,500 mg/ (Sodium Chloride) 500 mls @ 333.333 mls/hr IV Q12H [facility] Last Admin: 11/12/23 07:11 Dose: Not Given Documented By: CATHERINE Non-Admin Reason: No Access Ibuprofen (Ibuprofen 800 Mg Tablet) 800 mg PO TID PRN PRN Reason: Pain, Moderate(Pain Scale 4-6) Last Admin: 11/10/23 08:29 Dose: 800 mg Documented By: HECTOR Insulin Glargine (Insulin Glargine,Hum.Rec.Anlog 100 Unit/Ml 10 Ml Vial) 32 unit SUBCUT BEDTIME [facility] Last Admin: 11/11/23 19:32 Dose: Not Given Documented By: MICHAEL Non-Admin Reason: Patient Refused Insulin Human Lispro (Insulin Lispro 100 Unit/Ml 3 Ml Vial) 0 unit SUBCUT QIDACHS [facility]; Protocol Last Admin: 11/11/23 19:32 Dose: Not Given Documented By: MICHAEL Non-Admin Reason: Patient Refused Insulin Human Lispro (Insulin Lispro 100 Unit/Ml 3 Ml Vial) 5 unit SUBCUT TIDAC [facility] Last Admin: 11/11/23 16:55 Dose: 5 unit Documented By: CATHERINE Levofloxacin (Levofloxacin 500 Mg Tablet) 500 mg PO Q24H [facility] Lisinopril (Lisinopril 20 Mg Tablet) 20 mg PO DAILY [facility]; Protocol Last Admin: 11/11/23 09:22 Dose: 20 mg Documented By: CATHERINE Melatonin (Melatonin 3 Mg Tablet) 6 mg PO BEDTIME PRN PRN Reason: Insomnia Methadone HCl (Methadone Hcl 20 Mg/2 Ml Oral.Conc) 195 mg PO DAILY [facility] Last Admin: 11/11/23 08:21 Dose: 195 mg Documented By: CATHERINE Ondansetron HCl (Ondansetron Hcl 4 Mg/2 Ml Vial) 4 mg IVPUSH Q8H PRN PRN Reason: Nausea and Vomiting Pharmacy Consult (Consult Rx Vancomycin Dosing) 1 each MISCELLANE DAILY PRN PRN Reason: Consult order Quetiapine Fumarate (Quetiapine Fumarate 50 Mg Tablet) 50 mg PO TID [facility] Last Admin: 11/09/23 17:29 Dose: Not Given Documented By: AYAZ Non-Admin Reason: Physician Held Med Sodium Chloride (0.9 % Sodium Chloride Flush 3 Ml Syringe) 3 ml IVFLUSH QSHIFT [facility] Last Admin: 06/08/24 19:34 Dose: Not Given Documented By: MICHAEL Non-Admin Reason: NO IV ACCESS< MD AWARE Labs 11/10/23 05:46 11/11/23 16:09 Labs: Laboratory Results - last 24 hr 11/11/23 11/11/23 11/11/23 11:16 16:09 16:15 Estim Creat Clear Calc 129.1 Estimated GFR > 60 POC Glucose 209 H 171 H Random Vancomycin 7.4 L 11/12/23 06:59 Estim Creat Clear Calc Estimated GFR POC Glucose 250 H Random Vancomycin Microbiology Microbiology Results: Microbiology 11/09/23 16:37 Blood Culture - Preliminary Blood - Venous No growth after 48 hours. 11/09/23 16:39 Blood Culture - Preliminary Blood - Venous No growth after 48 hours. Assessment and Plan (1) Osteomyelitis: Status: Acute (2) Opioid use disorder: Status: Acute Plan 53-year-old male with a PMH significant for?HTN, HLD, insulin-dependent type 2 diabetes, diabetic/peripheral neuropathy, hx of osteomyelitis from chronic diabetic foot ulcers s/p right TMA, polysubstance use disorder on methadone, and mood disorder who originally presented to the ED on 10/27/2023 after being discharged from rehab with no place to go. Patient initially placed into physician observation in overflow, though moved back to the ED due to hypotension and worsening bilateral chronic feet wounds. Patient will be admitted to the hospital for osteomyelitis of bilateral feet secondary to chronic diabetic foot ulcers. Osteomyelitis (OM) of bilateral feet secondary to chronic diabetic foot ulcers -he has been refusing IV insertion, IV Abx -hold Abx Cefepime and Vancomycin and add PO Doxy and Levaquin and discussed with surgery and ID tomorrow, his best option is likely amputation which he is also refusing -ID consult reom IV for now, hold PICC, he had declined PICC in the past Hypotension--Not due sepsis, resolved with IVF HLD Continue statin HTN--continue lisinopril, continue lisinopril Insulin-dependent type 2 diabetes Sliding-scale insulin, Lantus, and pre meal insulin Diabetic diet Mood disorder Continue quetiapine, alprazolam Polysubstance use disorder Continue methadone Full Code DVT Prophylaxis: Lovenox need for inpt: IV Abx for OM, diabetic wound, expert evaluation for intervention Quality Stroke Does the patient have a stroke diagnosis?: No VTE Prior VTE?: No VTE Risk Level:: Medical - moderate - high VTE Device Contraindication: Treatment Not Indicated VTE Drug Contraindication: N/A - Med Ordered
[2023-11-12] MEDS: lisinopriL 20 MG TABLET PO (08:46)
[2023-11-12] MEDS: Acetaminophen 325 MG TABLET 975 MG PO (08:46)
[2023-11-12] MEDS: Doxycycline Monohydrate 100 MG CAPSULE PO (08:46)
[2023-11-12] MEDS: levoFLOXacin 500 MG TABLET PO (08:46)
[2023-11-12] MEDS: Insulin Lispro 100 UNIT/ML 3 ML VIAL SUBCUT ×6 (08:47→16:52)
[2023-11-12] MEDS: methADONE HCl 20 MG/2 ML ORAL.CONC 195 MG PO (08:51)
--- NOTE | 2023-11-12 09:42 | PC.NURSE ---
Pt took morning PO medications, including antibiotics and then followed by methadone. Pt vomitted large amount almost immediately after taking methadone. Dr. Alberto notified. No new orders given at this time.
[2023-11-12 11:09] LABS: Glucose, Whole Blood 202 mg/dL (60-115)
[2023-11-12 15:24] VITALS: BP 168/87; PULSE 78; RESP 16; TEMP 36.1; O2SAT 96
[2023-11-12 16:02] LABS: Glucose, Whole Blood 163 mg/dL (60-115)
[2023-11-12 17:56] LABS: Anion Gap 21 (12-20); Carbon Dioxide 21 mmol/L (22-29); Chloride 108 mmol/L (96-108); Estimated Glomerular Filt Rate > 60; Potassium 5.1 mmol/L (3.3-5.1); Sodium 145 mmol/L (135-145)
[2023-11-12 19:15] VITALS: BP 168/90; PULSE 80; RESP 18; TEMP 36.4; O2SAT 96
[2023-11-12 20:30] LABS: Glucose, Whole Blood 190 mg/dL (60-115)
--- NOTE | 2023-11-13 00:19 | PC.NURSE ---
Pt seen on bed, offered scheduled night time meds, pt refused all meds including insulin, educated pt but still refused, Dr. Dias was made aware.
[2023-11-13 04:00] VITALS: BP 172/86; PULSE 56; RESP 18; TEMP 36.2; O2SAT 98
[2023-11-13 07:13] VITALS: BP 176/80; PULSE 62; RESP 18; TEMP 36.2; O2SAT 96
[2023-11-13 07:32] LABS: Glucose, Whole Blood 192 mg/dL (60-115)
--- NOTE | 2023-11-13 09:15 | HO.VASCPN ---
Subjective Subjective Date of Service: 11/13/23 Patient reports: nausea Interval history: Patient seen examined. Events over the past weekend noted. Patient in general notes some left lower extremity pain and some nausea this morning. He has had no significant changes over the past weekend. Is now for vascular follow-up. Physical Exam Vital Signs: Vital Signs: Last Vital Signs Temp 97.1 F 11/13/23 07:13 Pulse 62 11/13/23 07:13 Resp 18 11/13/23 07:13 BP 176/80 H 11/13/23 07:13 Pulse Ox 96 11/13/23 07:13 O2 Del Method Nasal Cannula 11/13/23 07:13 O2 Flow Rate 2 11/13/23 07:13 FiO2 99 11/05/23 18:24 Oxygen Flow Rate 2 10/28/23 00:15 BMI result Body Mass Index 38.7 Const: General: cooperative, healthy appearing and comfortable Orientation/consciousness: oriented to person, oriented to place and oriented to time HEENT: Head: Yes normal to inspection Neck: Neck: Yes normal visual inspection Carotids: no bruits Chest: Chest palpation & inspection: normal inspection of the chest Resp: Effort & Inspection: normal respiratory effort and able to speak in complete sentences Auscultation: clear to auscultation bilaterally, no crackles, no rales, no rhonchi and no wheezes Cardio: Rate: regular rate Rhythm: regular rhythm Heart sounds: S1 normal heart sound present and S2 normal heart sound present Bruits: no carotid bruits Peripheral pulses: Peripheral pulses 2+ throughout GI: Inspection: Yes normal to inspection Skin: Other: Wounds no significant change. Left lower extremity concerning for penetration down to calcaneus Wounds: no wounds Hair: normal Neuro: General: oriented to person, oriented to place and oriented to time Cranial nerves: Yes CN's II-XII intact bilaterally and Yes Normal hearing present Cognition (Neuro): normal cognition Motor exam (neuro): 5/5 motor strength present throughout Extrem: Other: venous exam: No significant superficial varicosities or spider telangiectasias, minimal edema General: No clubbing, No cyanosis and No edema Psych: Appearance: grossly normal Mental Status: mental status grossly normal Speech and movement: Normal speech and movement present Progress Note: A&P Assessment and plan (1) Diabetic foot ulcer: Status: Acute Assessment and Plan: In short patient has nonhealing diabetic foot ulcers bilaterally. Left leg is concerning for penetration down to calcaneus. Noninvasive arterial testing appeared be within normal limits. Due to the extended. Time this ulcer may be best served with BKA. This was discussed with the patient and he was resistant to this. Would continue with local medical management and care. Please recall if patient is interested in amputation. Will follow on an as-needed basis Time Spent With Patient Time: Total time managing care of this patient today ____ minutes. Procedures Date of Service Date of Service: 11/13/23 Quality Stroke Does the patient have a stroke diagnosis?: No VTE Prior VTE?: No VTE Risk Level:: Medical - moderate - high VTE Device Contraindication: Treatment Not Indicated VTE Drug Contraindication: N/A - Med Ordered
--- NOTE | 2023-11-13 09:29 | HO.PM.IMPN ---
Subjective Subjective Date of Service: 11/13/23 Physical Exam Vital Signs: Vital Signs: Last Vital Signs Temp 97.1 F 11/13/23 07:13 Pulse 62 11/13/23 07:13 Resp 18 11/13/23 07:13 BP 176/80 H 11/13/23 07:13 Pulse Ox 96 11/13/23 07:13 O2 Del Method Nasal Cannula 11/13/23 07:13 O2 Flow Rate 2 11/13/23 07:13 FiO2 99 11/05/23 18:24 Oxygen Flow Rate 2 10/28/23 00:15 BMI result Body Mass Index 38.7 Objective Data Active Medications Acetaminophen (Acetaminophen 325 Mg Tablet) 975 mg PO TID [facility] Last Admin: 11/12/23 22:28 Dose: Not Given Documented By: ANDREW Non-Admin Reason: Patient Refused Acetaminophen (Acetaminophen 325 Mg Tablet) 650 mg PO Q6H PRN PRN Reason: Pain, Mild (Pain Scale 1-3) Alprazolam (Alprazolam 0.5 Mg Tablet) 1 mg PO BEDTIME PRN PRN Reason: insomnia Atorvastatin Calcium (Atorvastatin Calcium 40 Mg Tablet) 40 mg PO BEDTIME [facility] Last Admin: 11/12/23 22:28 Dose: Not Given Documented By: ANDREW Non-Admin Reason: Patient Refused Doxycycline Monohydrate (Doxycycline Monohydrate 100 Mg Capsule) 100 mg PO Q12H [facility] Last Admin: 11/12/23 22:28 Dose: Not Given Documented By: ANDREW Non-Admin Reason: Patient Refused Gabapentin (Gabapentin 300 Mg Capsule) 900 mg PO TID [facility] Last Admin: 11/09/23 17:29 Dose: Not Given Documented By: AYAZ Non-Admin Reason: Physician Held Med Glucose (Glucose Gel 15 Gm Gel..Gram.) 15 gm PO Q15M PRN; Protocol PRN Reason: per Hypoglycemia Standing Ord. Dextrose (D10) 250 mls @ 750 mls/hr IV Q15M PRN; Protocol PRN Reason: per Hypoglycemia Standing Ord. Cefepime HCl 2 gm/ Sodium (Chloride) 50 mls @ 100 mls/hr IV Q12H [facility] Last Admin: 11/13/23 07:15 Dose: Not Given Documented By: QUINN Non-Admin Reason: No Access Ibuprofen (Ibuprofen 800 Mg Tablet) 800 mg PO TID PRN PRN Reason: Pain, Moderate(Pain Scale 4-6) Last Admin: 11/10/23 08:29 Dose: 800 mg Documented By: HECTOR Insulin Glargine (Insulin Glargine,Hum.Rec.Anlog 100 Unit/Ml 10 Ml Vial) 32 unit SUBCUT BEDTIME [facility] Last Admin: 11/12/23 22:29 Dose: Not Given Documented By: ANDREW Non-Admin Reason: Patient Refused Insulin Human Lispro (Insulin Lispro 100 Unit/Ml 3 Ml Vial) 0 unit SUBCUT QIDACHS [facility]; Protocol Last Admin: 11/12/23 22:29 Dose: Not Given Documented By: ANDREW Non-Admin Reason: Patient Refused Insulin Human Lispro (Insulin Lispro 100 Unit/Ml 3 Ml Vial) 5 unit SUBCUT TIDAC [facility] Last Admin: 11/13/23 08:34 Dose: Not Given Documented By: QUINN Non-Admin Reason: sugar <200 Levofloxacin (Levofloxacin 500 Mg Tablet) 500 mg PO Q24H [facility] Last Admin: 11/12/23 08:46 Dose: 500 mg Documented By: CATHERINE Lisinopril (Lisinopril 20 Mg Tablet) 20 mg PO DAILY [facility]; Protocol Last Admin: 11/12/23 08:46 Dose: 20 mg Documented By: CATHERINE Melatonin (Melatonin 3 Mg Tablet) 6 mg PO BEDTIME PRN PRN Reason: Insomnia Methadone HCl (Methadone Hcl 20 Mg/2 Ml Oral.Conc) 195 mg PO DAILY [facility] Last Admin: 11/12/23 08:51 Dose: 195 mg Documented By: CATHERINE Ondansetron HCl (Ondansetron Hcl 4 Mg/2 Ml Vial) 4 mg IVPUSH Q8H PRN PRN Reason: Nausea and Vomiting Quetiapine Fumarate (Quetiapine Fumarate 50 Mg Tablet) 50 mg PO TID [facility] Last Admin: 11/09/23 17:29 Dose: Not Given Documented By: AYAZ Non-Admin Reason: Physician Held Med Sodium Chloride (0.9 % Sodium Chloride Flush 3 Ml Syringe) 3 ml IVFLUSH QSHIFT [facility] Last Admin: 11/13/23 07:15 Dose: Not Given Documented By: QUINN Non-Admin Reason: No Access Labs 11/10/23 05:46 11/12/23 15:08 Labs: Laboratory Results - last 24 hr 11/12/23 11/12/23 11/12/23 10:47 15:08 15:52 Anion Gap 21 H Estim Creat Clear Calc 125.0 Estimated GFR > 60 POC Glucose 202 H 163 H 11/12/23 11/13/23 20:26 07:16 Anion Gap Estim Creat Clear Calc Estimated GFR POC Glucose 190 H 192 H Assessment and Plan (1) Osteomyelitis: Status: Acute (2) Opioid use disorder: Status: Acute Plan 53-year-old male with a PMH significant for?HTN, HLD, insulin-dependent type 2 diabetes, diabetic/peripheral neuropathy, hx of osteomyelitis from chronic diabetic foot ulcers s/p right TMA, polysubstance use disorder on methadone, and mood disorder who originally presented to the ED on 10/27/2023 after being discharged from rehab with no place to go. Patient initially placed into physician observation in overflow, though moved back to the ED due to hypotension and worsening bilateral chronic feet wounds. Patient will be admitted to the hospital for osteomyelitis of bilateral feet secondary to chronic diabetic foot ulcers. Osteomyelitis (OM) of bilateral feet secondary to chronic diabetic foot ulcers -he has been refusing IV insertion, IV Abx, I -hold Abx Cefepime and Vancomycin and add PO Doxy and Levaquin and discussed with surgery and ID tomorrow, his best option is likely amputation which he is also refusing -ID consult reom IV for now, hold PICC, he had declined PICC in the past -I spoke to him again this morning about having IV, midline or picc line inserted for IV Abx and he says he will think about it HypOtension--Not due sepsis, resolved with IVF HLD Continue statin HTN--BPs very high now, continue Lisinopril, start Norvasc 5 mg daily Insulin-dependent type 2 diabetes Sliding-scale insulin, Lantus at 35, and pre meal insulin 5 unit if BS > 200 Diabetic diet Mood disorder Continue quetiapine, alprazolam Polysubstance use disorder Continue methadone Full Code DVT Prophylaxis: Lovenox need for inpt: IV Abx for OM, diabetic wound, expert evaluation for intervention Quality Stroke Does the patient have a stroke diagnosis?: No VTE Prior VTE?: No VTE Risk Level:: Medical - moderate - high VTE Device Contraindication: Treatment Not Indicated VTE Drug Contraindication: N/A - Med Ordered
[2023-11-13] MEDS: methADONE HCl 20 MG/2 ML ORAL.CONC 195 MG PO (10:30)
[2023-11-13 11:12] LABS: Glucose, Whole Blood 209 mg/dL (60-115)
--- NOTE | 2023-11-13 13:03 | MHC.CM.PN ---
per rounds pt ready for dc bed searchcontinues
[2023-11-13 15:12] VITALS: BP 182/80; PULSE 66; RESP 16; TEMP 36.4; O2SAT 97
[2023-11-13 20:00] VITALS: BP 188/93; PULSE 53; RESP 16; TEMP 36.2; O2SAT 97
[2023-11-13 20:29] LABS: Glucose, Whole Blood 221 mg/dL (60-115)
[2023-11-13] MEDS: Insulin Glargine,Hum.rec.anlog 100 UNIT/ML 10 ML VIAL 35 UNIT SUBCUT (22:05)
[2023-11-13] MEDS: Insulin Lispro 100 UNIT/ML 3 ML VIAL SUBCUT (22:06)
[2023-11-14 03:21] VITALS: BP 142/86; PULSE 56; RESP 14; TEMP 36.3; O2SAT 97
--- NOTE | 2023-11-14 04:25 | PC.NURSE ---
Assumed care of pt at 19:00. Pt AxOx4, vague, resistive to care. Pt refused full assessment, bedtime medications (except for Insulin- see AUG), and wound care from this RN. Pt allowed [facility]ENS[facility] T[facility]ER to take POC and vital signs only. This RN educated the pt the importance of his care at this hospital, but still refused all care. Pt's bed in lowest position, call toth within reach, and bed alarm intact. Will continue to monitor.
[2023-11-14 07:30] LABS: Glucose, Whole Blood 192 mg/dL (60-115)
[2023-11-14 07:31] VITALS: BP 171/80; PULSE 53; RESP 16; TEMP 36.3; O2SAT 97
[2023-11-14] MEDS: Ondansetron ODT 4 MG TAB.RAPDIS TRANSLINGU (09:49)
[2023-11-14 11:19] LABS: Glucose, Whole Blood 183 mg/dL (60-115)
[2023-11-14] MEDS: ALPRAZolam 0.5 MG TABLET 2 MG PO (11:19)
[2023-11-14 11:20] VITALS: BP 171/80
[2023-11-14] MEDS: lisinopriL 20 MG TABLET PO (11:20)
[2023-11-14] MEDS: amLODIPine Besylate 5 MG TABLET PO (11:20)
[2023-11-14] MEDS: methADONE HCl 20 MG/2 ML ORAL.CONC 195 MG PO (11:29)
[2023-11-14] MEDS: levoFLOXacin 500 MG TABLET PO (12:19)
[2023-11-14 14:50] VITALS: PULSE 70; RESP 16; TEMP 36.3; O2SAT 95
--- NOTE | 2023-11-14 16:08 | HO.WOUND ---
Wound Consult: Follow up 53yr old M?admitted to [facility] on? 11/09/23 - See progress notes and H&P for detailed history.?Wound consult follow up for Bilateral Diabetic Foot wounds POA. Arrival to bedside patient was agreeable to assessment and photo documentation. Right Lateral Foot Etiology: Diabetic Wound Measurements:1.5cm x 0.5cm x 0.4cm Wound Bed: rmoist wound bed with adherent yellow slough Drainage / Odor: none noted Edges: ?irregular Harmony wound: mild pink erythema scar tissue noted - No Induration, Fluctuance or Warmth noted Pain: denies Goals of Treatment: Moisture management with Durafiber AG Left Lateral Foot - 3 wounds noted Left Medial Foot - Fluctuant warm and erythema - TT to Dr. Patel with concern for fluid collection Left Lateral Foot Etiology: Diabetic Wound Measurements: Superior wound - 1cm x 3.5cm x 1cm with undermining from 5 o'clock - 7 o'clock max depth of 4cm red moist wound bed Two inferior ankle sites openings 0.3cm x 0.3cm with depth and undermining of 4cm and connected difficult to visualize wound bed Drainage / Odor: serosang drainage noted with creamy seropurulent drainage when fluctuant areas were palpated. Edges: ?irregular Harmony wound: scar tissue noted +swelling, +red erythema and fluctuance noted Pain: reported pain at times Goals of Treatment: Moisture management with Durafiber AG Recommendations: 1. Turn and Reposition every 2 hours and as needed for patient comfort.? Use pillows or wedges to support off loading positions. 2. Off Load all bony prominences with use of pillows and heel boots if needed.? Apply Preventative foams where needed. ? 3. Monitor for incontinence and moisture control, use barrier creams when needed for prevention and treatment. 4. Provide adequate and supplemental nutrition.? 5.When applicable maintain blood glucose levels per Providers order. 6. Bilateral Feet - Cleanse with NS moist gauze pat dry. Apply cut to size durafiber Ag - Lightly pack the 2 small open sites with strip of Durafiber be sure to leave wick for easy removal. Cover with dry gauze, ABD pad and gauze wrap change Daily while inpatient. Monitor for worsening erythema and purulent drainage reports to provider for worsening symptoms. Re-consult wound care Nurse for wound deterioration or wound changes.
[2023-11-14 16:32] LABS: Glucose, Whole Blood 196 mg/dL (60-115)
--- NOTE | 2023-11-14 17:41 | HO.PM.IMPN ---
Subjective Subjective Date of Service: 11/14/23 Interval History: Osteomyelitis (OM) of bilateral feet secondary to chronic diabetic foot ulcers Review of Systems right foot looks similar ,has some drainage. late afternoon says he will agree for picc line if needed. Physical Exam Vital Signs: Vital Signs: Last Vital Signs Temp 97.3 F 11/14/23 14:50 Pulse 70 11/14/23 14:50 Resp 16 11/14/23 14:50 BP 171/80 H 11/14/23 11:20 Pulse Ox 95 11/14/23 14:50 O2 Del Method Room Air 11/14/23 14:50 O2 Flow Rate 97 11/14/23 07:31 FiO2 99 11/05/23 18:24 Oxygen Flow Rate 2 10/28/23 00:15 BMI result Body Mass Index 38.7 General: awake, no distress Resp: CTA bilaterally CVS: S1, S2, RRR GI: +BS, NT, no distention Skin: Warm, dry Neuro: Cranial nerves II-XII grossly intact bilaterally. Motor grossly intact bilaterally Extremities: Left foot with erythema, warmth, and swelling with chronic midfoot wound on the lateral aspect with some purulent drainage. Right foot s/p TMA with chronic appearing wound without discharge. Objective Data Active Medications Acetaminophen (Acetaminophen 325 Mg Tablet) 975 mg PO TID [facility] Last Admin: 11/14/23 15:03 Dose: Not Given Documented By: EMMIE Non-Admin Reason: Patient Refused Acetaminophen (Acetaminophen 325 Mg Tablet) 650 mg PO Q6H PRN PRN Reason: Pain, Mild (Pain Scale 1-3) Alprazolam (Alprazolam 0.5 Mg Tablet) 1 mg PO BEDTIME PRN PRN Reason: insomnia Alprazolam (Alprazolam 0.5 Mg Tablet) 2 mg PO DAILY [facility] Last Admin: 11/14/23 11:19 Dose: 2 mg Documented By: EMMIE Amlodipine Besylate (Amlodipine Besylate 5 Mg Tablet) 5 mg PO DAILY [facility]; Protocol Last Admin: 11/14/23 11:20 Dose: 5 mg Documented By: EMMIE Atorvastatin Calcium (Atorvastatin Calcium 40 Mg Tablet) 40 mg PO BEDTIME [facility] Last Admin: 11/13/23 21:58 Dose: Not Given Documented By: LILY Non-Admin Reason: Patient Refused Doxycycline Monohydrate (Doxycycline Monohydrate 100 Mg Capsule) 100 mg PO Q12H [facility] Last Admin: 11/14/23 12:31 Dose: Not Given Documented By: EMMIE Non-Admin Reason: Patient Refused Gabapentin (Gabapentin 300 Mg Capsule) 900 mg PO TID [facility] Last Admin: 11/09/23 17:29 Dose: Not Given Documented By: AYAZ Non-Admin Reason: Physician Held Med Glucose (Glucose Gel 15 Gm Gel..Gram.) 15 gm PO Q15M PRN; Protocol PRN Reason: per Hypoglycemia Standing Ord. Dextrose (D10) 250 mls @ 750 mls/hr IV Q15M PRN; Protocol PRN Reason: per Hypoglycemia Standing Ord. Cefepime HCl 2 gm/ Sodium (Chloride) 50 mls @ 100 mls/hr IV Q12H [facility] Last Admin: 11/14/23 07:57 Dose: Not Given Documented By: EMMIE Non-Admin Reason: No Access Ibuprofen (Ibuprofen 800 Mg Tablet) 800 mg PO TID PRN PRN Reason: Pain, Moderate(Pain Scale 4-6) Last Admin: 11/10/23 08:29 Dose: 800 mg Documented By: HECTOR Insulin Glargine (Insulin Glargine,Hum.Rec.Anlog 100 Unit/Ml 10 Ml Vial) 35 unit SUBCUT BEDTIME [facility] Last Admin: 11/13/23 22:05 Dose: 35 unit Documented By: LILY Insulin Human Lispro (Insulin Lispro 100 Unit/Ml 3 Ml Vial) 0 unit SUBCUT QIDACHS [facility]; Protocol Last Admin: 11/14/23 11:32 Dose: Not Given Documented By: EMMIE Non-Admin Reason: not eating Insulin Human Lispro (Insulin Lispro 100 Unit/Ml 3 Ml Vial) 5 unit SUBCUT TIDAC [facility] Last Admin: 11/14/23 11:32 Dose: Not Given Documented By: EMMIE Non-Admin Reason: not eating Levofloxacin (Levofloxacin 500 Mg Tablet) 500 mg PO Q24H [facility] Last Admin: 11/14/23 12:19 Dose: 500 mg Documented By: EMMIE Lisinopril (Lisinopril 20 Mg Tablet) 20 mg PO DAILY [facility]; Protocol Last Admin: 11/14/23 11:20 Dose: 20 mg Documented By: EMMIE Melatonin (Melatonin 3 Mg Tablet) 6 mg PO BEDTIME PRN PRN Reason: Insomnia Methadone HCl (Methadone Hcl 20 Mg/2 Ml Oral.Conc) 195 mg PO DAILY [facility] Last Admin: 11/14/23 11:29 Dose: 195 mg Documented By: EMMIE Ondansetron HCl (Ondansetron Hcl 4 Mg/2 Ml Vial) 4 mg IVPUSH Q8H PRN PRN Reason: Nausea and Vomiting Ondansetron HCl (Ondansetron Odt 4 Mg Tab.Rapdis) 4 mg TRANSLINGU Q8H PRN PRN Reason: Nausea and Vomiting Last Admin: 11/14/23 09:49 Dose: 4 mg Documented By: EMMIE Quetiapine Fumarate (Quetiapine Fumarate 50 Mg Tablet) 50 mg PO TID [facility] Last Admin: 11/09/23 17:29 Dose: Not Given Documented By: AYAZ Non-Admin Reason: Physician Held Med Sodium Chloride (0.9 % Sodium Chloride Flush 3 Ml Syringe) 3 ml IVFLUSH QSHIFT [facility] Last Admin: 11/14/23 15:03 Dose: Not Given Documented By: EMMIE Non-Admin Reason: No Access Labs 11/10/23 05:46 11/12/23 15:08 Labs: Laboratory Results - last 24 hr 11/13/23 11/14/23 11/14/23 20:17 07:27 11:12 POC Glucose 221 H 192 H 183 H 11/14/23 16:18 POC Glucose 196 H Assessment and Plan (1) Osteomyelitis: Status: Acute Assessment and Plan: 53-year-old male with a PMH significant for?HTN, HLD, insulin-dependent type 2 diabetes, diabetic/peripheral neuropathy, hx of osteomyelitis from chronic diabetic foot ulcers s/p right TMA, polysubstance use disorder on methadone, and mood disorder who originally presented to the ED on 10/27/2023 after being discharged from rehab with no place to go. Patient initially placed into physician observation in overflow, though moved back to the ED due to hypotension and worsening bilateral chronic feet wounds. Patient will be admitted to the hospital for osteomyelitis of bilateral feet secondary to chronic diabetic foot ulcers. Osteomyelitis (OM) of bilateral feet secondary to chronic diabetic foot ulcers -he has been refusing IV insertion, IV Abx, -hold Abx Cefepime and Vancomycin and add PO Doxy and Levaquin and discussed with surgery and ID tomorrow, his best option is likely amputation which he is also refusing -ID consult reom IV for now, hold PICC,Id will follow up in am for need of picc, today late afternoon agrees for picc. HypOtension--Not due sepsis, resolved with IVF HLD Continue statin HTN--BPs very high now, continue Lisinopril, start Norvasc 5 mg daily Insulin-dependent type 2 diabetes Sliding-scale insulin, Lantus at 35, and pre meal insulin 5 unit if BS > 200 Diabetic diet Mood disorder Continue quetiapine, alprazolam Polysubstance use disorder Continue methadone Full Code DVT Prophylaxis: Lovenox need for inpt: IV Abx for OM, diabetic wound, expert evaluation for intervention Quality Stroke Does the patient have a stroke diagnosis?: No VTE Prior VTE?: No VTE Risk Level:: Medical - moderate - high VTE Device Contraindication: Treatment Not Indicated VTE Drug Contraindication: N/A - Med Ordered
[2023-11-14 19:43] VITALS: BP 149/80; PULSE 69; RESP 20; TEMP 36.1; O2SAT 96
--- NOTE | 2023-11-14 19:49 | PC.NURSE ---
pt refusing meals. Reports nausea and states it is from withdrawals. Received scheduled methadone. Medicated with xanax per request. Medicated with zofran for nausea. Took BP meds and levaquin, but refused doxycycline. Allowed POC checks and dressing changes to b/l feet. Dr. Patel notified of refusals.
[2023-11-14 21:08] LABS: Glucose, Whole Blood 223 mg/dL (60-115)
[2023-11-14] MEDS: ALPRAZolam 0.5 MG TABLET 1 MG PO (22:10)
[2023-11-14] MEDS: Doxycycline Monohydrate 100 MG CAPSULE PO (22:10)
[2023-11-14 23:30] LABS: Glucose, Whole Blood 204 mg/dL (60-115)
[2023-11-15 03:12] VITALS: BP 160/76; PULSE 68; RESP 20; TEMP 36.1; O2SAT 97
--- NOTE | 2023-11-15 06:28 | PC.NURSE ---
Pt refused shift assessment from this RN. Dressings to his bilateral feet CD&I. Pt refused RICHARD bedtime medications except for Doxycycline. PRN Xanax was administered to pt per request to help sleep. Pt's POC was 223, MD Gerber was notified due to the pt not eating all day and refusing snacks. Per MD Gerber, rechecked POC 2 hrs later and was 204. SSI & Lantus was held per MD Gerber. Pt's bed in lowest position, call toth within reach, and bed alarm intact. Will continue to monitor.
[2023-11-15 07:14] VITALS: BP 172/85; PULSE 58; RESP 18; TEMP 36; O2SAT 99
[2023-11-15 07:30] LABS: Glucose, Whole Blood 171 mg/dL (60-115)
[2023-11-15] MEDS: Ondansetron ODT 4 MG TAB.RAPDIS TRANSLINGU (09:02)
[2023-11-15] MEDS: methADONE HCl 20 MG/2 ML ORAL.CONC 195 MG PO (09:25)
[2023-11-15 09:28] VITALS: BP 172/85
[2023-11-15] MEDS: ALPRAZolam 0.5 MG TABLET 2 MG PO (09:28)
[2023-11-15] MEDS: lisinopriL 20 MG TABLET PO (09:28)
[2023-11-15] MEDS: QUEtiapine Fumarate 50 MG TABLET PO ×3 (09:28→22:04)
[2023-11-15] MEDS: Gabapentin 300 MG CAPSULE 900 MG PO ×3 (09:28→22:03)
[2023-11-15 11:18] LABS: Glucose, Whole Blood 162 mg/dL (60-115)
[2023-11-15 12:45] VITALS: BP 172/85
[2023-11-15] MEDS: levoFLOXacin 500 MG TABLET PO (12:45)
[2023-11-15] MEDS: amLODIPine Besylate 10 MG TABLET PO (12:45)
[2023-11-15] MEDS: Doxycycline Monohydrate 100 MG CAPSULE PO ×2 (12:45→22:04)
--- NOTE | 2023-11-15 13:02 | P.PNIM_ITS ---
Subjective Subjective Date of Service: 11/15/23 Interval History: Osteomyelitis (OM) of bilateral feet secondary to chronic diabetic foot ulcers. Review of Systems right foot looks similar ,has some drainage. Physical Exam 2 Vital Signs: Vital Signs: Last Vital Signs Temp 96.8 F 11/15/23 07:14 Pulse 58 11/15/23 07:14 Resp 18 11/15/23 07:14 BP 172/85 H 11/15/23 12:45 Pulse Ox 99 11/15/23 07:14 O2 Del Method Nasal Cannula 11/15/23 07:14 O2 Flow Rate 2 11/15/23 07:14 FiO2 99 11/05/23 18:24 Oxygen Flow Rate 2 10/28/23 00:15 BMI result Body Mass Index 38.7 General: awake, no distress Resp: CTA bilaterally CVS: S1, S2, RRR GI: +BS, NT, no distention Skin: Warm, dry Neuro: Cranial nerves II-XII grossly intact bilaterally. Motor grossly intact bilaterally Extremities: Left foot chronic midfoot wound on the lateral aspect with some purulent drainage. Right foot s/p TMA with chronic appearing wound without discharge. Objective Data Active Medications Acetaminophen (Acetaminophen 325 Mg Tablet) 975 mg PO TID [facility] Last Admin: 11/15/23 09:08 Dose: Not Given Documented By: EMMIE Non-Admin Reason: Patient Refused Acetaminophen (Acetaminophen 325 Mg Tablet) 650 mg PO Q6H PRN PRN Reason: Pain, Mild (Pain Scale 1-3) Alprazolam (Alprazolam 0.5 Mg Tablet) 1 mg PO BEDTIME PRN PRN Reason: insomnia Last Admin: 11/14/23 22:10 Dose: 1 mg Documented By: LILY Alprazolam (Alprazolam 0.5 Mg Tablet) 2 mg PO DAILY [facility] Last Admin: 11/15/23 09:28 Dose: 2 mg Documented By: EMMIE Amlodipine Besylate (Amlodipine Besylate 10 Mg Tablet) 10 mg PO DAILY [facility]; Protocol Last Admin: 11/15/23 12:45 Dose: 10 mg Documented By: EMMIE Atorvastatin Calcium (Atorvastatin Calcium 40 Mg Tablet) 40 mg PO BEDTIME [facility] Last Admin: 11/14/23 22:06 Dose: Not Given Documented By: LILY Non-Admin Reason: Patient Refused Doxycycline Monohydrate (Doxycycline Monohydrate 100 Mg Capsule) 100 mg PO Q12H [facility] Last Admin: 11/15/23 12:45 Dose: 100 mg Documented By: EMMIE Gabapentin (Gabapentin 300 Mg Capsule) 900 mg PO TID [facility] Last Admin: 11/09/23 17:29 Dose: Not Given Documented By: AYAZ Non-Admin Reason: Physician Held Med Gabapentin (Gabapentin 300 Mg Capsule) 900 mg PO TID [facility] Last Admin: 11/15/23 09:28 Dose: 900 mg Documented By: EMMIE Glucose (Glucose Gel 15 Gm Gel..Gram.) 15 gm PO Q15M PRN; Protocol PRN Reason: per Hypoglycemia Standing Ord. Dextrose (D10) 250 mls @ 750 mls/hr IV Q15M PRN; Protocol PRN Reason: per Hypoglycemia Standing Ord. Cefepime HCl 2 gm/ Sodium (Chloride) 50 mls @ 100 mls/hr IV Q12H [facility] Last Admin: 11/15/23 09:08 Dose: Not Given Documented By: EMMIE Non-Admin Reason: No Access Ibuprofen (Ibuprofen 800 Mg Tablet) 800 mg PO TID PRN PRN Reason: Pain, Moderate(Pain Scale 4-6) Last Admin: 11/10/23 08:29 Dose: 800 mg Documented By: HECTOR Insulin Glargine (Insulin Glargine,Hum.Rec.Anlog 100 Unit/Ml 10 Ml Vial) 35 unit SUBCUT BEDTIME [facility] Last Admin: 11/15/23 00:14 Dose: Not Given Documented By: LILY Non-Admin Reason: hold per , pt didn't eat dinner Insulin Human Lispro (Insulin Lispro 100 Unit/Ml 3 Ml Vial) 0 unit SUBCUT QIDACHS [facility]; Protocol Last Admin: 11/15/23 12:45 Dose: Not Given Documented By: EMMIE Non-Admin Reason: Patient Refused Insulin Human Lispro (Insulin Lispro 100 Unit/Ml 3 Ml Vial) 5 unit SUBCUT TIDAC [facility] Last Admin: 11/15/23 12:45 Dose: Not Given Documented By: EMMIE Non-Admin Reason: Patient Refused Levofloxacin (Levofloxacin 500 Mg Tablet) 500 mg PO Q24H [facility] Last Admin: 11/15/23 12:45 Dose: 500 mg Documented By: EMMIE Lisinopril (Lisinopril 20 Mg Tablet) 20 mg PO DAILY [facility]; Protocol Last Admin: 11/15/23 09:28 Dose: 20 mg Documented By: EMMIE Melatonin (Melatonin 3 Mg Tablet) 6 mg PO BEDTIME PRN PRN Reason: Insomnia Methadone HCl (Methadone Hcl 20 Mg/2 Ml Oral.Conc) 195 mg PO DAILY [facility] Last Admin: 11/15/23 09:25 Dose: 195 mg Documented By: EMMIE Ondansetron HCl (Ondansetron Hcl 4 Mg/2 Ml Vial) 4 mg IVPUSH Q8H PRN PRN Reason: Nausea and Vomiting Ondansetron HCl (Ondansetron Odt 4 Mg Tab.Rapdis) 4 mg TRANSLINGU Q8H PRN PRN Reason: Nausea and Vomiting Last Admin: 11/15/23 09:02 Dose: 4 mg Documented By: EMMIE Quetiapine Fumarate (Quetiapine Fumarate 50 Mg Tablet) 50 mg PO TID [facility] Last Admin: 11/09/23 17:29 Dose: Not Given Documented By: AYAZ Non-Admin Reason: Physician Held Med Quetiapine Fumarate (Quetiapine Fumarate 50 Mg Tablet) 50 mg PO TID [facility] Last Admin: 11/15/23 09:28 Dose: 50 mg Documented By: EMMIE Sodium Chloride (0.9 % Sodium Chloride Flush 3 Ml Syringe) 3 ml IVFLUSH QSHIFT [facility] Last Admin: 11/15/23 09:08 Dose: Not Given Documented By: EMMIE Non-Admin Reason: No Access Labs 11/10/23 05:46 11/12/23 15:08 Labs: Laboratory Results - last 24 hr 11/14/23 11/14/23 11/14/23 16:18 21:04 23:26 POC Glucose 196 H 223 H 204 H 11/15/23 11/15/23 07:20 11:11 POC Glucose 171 H 162 H Microbiology Microbiology Results: Microbiology 11/09/23 16:37 Blood Culture - Final Blood - Venous No growth after 5 days. 11/09/23 16:39 Blood Culture - Final Blood - Venous No growth after 5 days. Assessment and Plan (1) Osteomyelitis: Status: Acute Assessment and Plan: 53-year-old male with a PMH significant for?HTN, HLD, insulin-dependent type 2 diabetes, diabetic/peripheral neuropathy, hx of osteomyelitis from chronic diabetic foot ulcers s/p right TMA, polysubstance use disorder on methadone, and mood disorder who originally presented to the ED on 10/27/2023 after being discharged from rehab with no place to go. Patient initially placed into physician observation in overflow, though moved back to the ED due to hypotension and worsening bilateral chronic feet wounds. Patient will be admitted to the hospital for osteomyelitis of bilateral feet secondary to chronic diabetic foot ulcers. Osteomyelitis (OM) of bilateral feet secondary to chronic diabetic foot ulcers -he has been refusing IV insertion, IV Abx, -hold Abx Cefepime and Vancomycin and add PO Doxy and Levaquin and discussed with surgery and ID tomorrow, his best option is likely amputation which he is also refusing Discussed with ID and glass technician/installer-patient might need to go to rehab for antibiotics, PICC line order placed. HypOtension--Not due sepsis, resolved with IVF HLD Continue statin HTN--BPs very high now, continue Lisinopril, start Norvasc 5 mg daily Insulin-dependent type 2 diabetes Sliding-scale insulin, Lantus at 35, and pre meal insulin 5 unit if BS > 200 Diabetic diet Mood disorder Continue quetiapine, alprazolam Polysubstance use disorder Continue methadone Full Code DVT Prophylaxis: Lovenox need for inpt: IV Abx for OM, diabetic wound, expert evaluation for intervention Quality Stroke Does the patient have a stroke diagnosis?: No VTE Prior VTE?: No VTE Risk Level:: Medical - moderate - high VTE Device Contraindication: Treatment Not Indicated VTE Drug Contraindication: N/A - Med Ordered
--- NOTE | 2023-11-15 14:08 | P.PNID_ITS ---
Subjective Subjective Date of Service: 11/15/23 Critical Care Time (minutes): 15 Comment: he is doing well he agrees to placement for correction IV antibiotics Objective Data Labs 11/10/23 05:46 11/12/23 15:08 Labs: Laboratory Results - last 24 hr 11/14/23 11/14/23 11/14/23 16:18 21:04 23:26 POC Glucose 196 H 223 H 204 H 11/15/23 11/15/23 07:20 11:11 POC Glucose 171 H 162 H Microbiology Microbiology Results: Microbiology 11/09/23 16:37 Blood - Venous Blood Culture - Final No growth after 5 days. 11/09/23 16:39 Blood - Venous Blood Culture - Final No growth after 5 days. Physical Exam 2 Vital Signs: Vital Signs: Last Vital Signs Temp 96.8 F 11/15/23 07:14 Pulse 58 11/15/23 07:14 Resp 18 11/15/23 07:14 BP 172/85 H 11/15/23 12:45 Pulse Ox 99 11/15/23 07:14 O2 Del Method Nasal Cannula 11/15/23 07:14 O2 Flow Rate 2 11/15/23 07:14 FiO2 99 11/05/23 18:24 Oxygen Flow Rate 2 10/28/23 00:15 BMI result Body Mass Index 38.7 Const: General: cooperative Orientation/consciousness: patient oriented x3 HEENT: Head: Yes normal to inspection Mouth: Normal oral and palatal mucosa present Eyes: General: appearance normal, both eyes and all related structures P upils: Equal, round and reactive pupils present Resp: Effort & Inspection: normal respiratory effort Cardio: Rate: regular rate Rhythm: regular rhythm GI: Palpation (GI): Soft to palpation and nontender : General: Yes no CVA tenderness Back/Spine/Pelvis: Back: no CVA tenderness Skin: General skin exam: no rashes or lesions noted Neuro: General: patient oriented x3 Cranial nerves: Yes CN's II-XII intact bilaterally and Yes Equal, round and reactive pupils present Extrem: Other: foot still draining lateral left General: Yes normal to inspection Psych: Appearance: grossly normal Assessment and Plan Assessment and plan (1) Osteomyelitis: Problem details: OM left 4th and 5th metatarsal Status: Acute Assessment and Plan: Ertapenem 1 g IV for six weeks at facility Change to Vancomycin if MRSA seen. Time Spent With Patient Time: Total time managing care of this patient today ____ minutes.
[2023-11-15 15:11] VITALS: BP 137/85; PULSE 88; RESP 20; TEMP 36.1; O2SAT 98
--- NOTE | 2023-11-15 15:38 | MHC.CM.PN ---
mds completed and faxed
[2023-11-15 16:21] LABS: Glucose, Whole Blood 220 mg/dL (60-115)
[2023-11-15 20:00] VITALS: BP 109/65; PULSE 80; RESP 20; TEMP 36.1; O2SAT 96
[2023-11-15 20:49] LABS: Glucose, Whole Blood 229 mg/dL (60-115)
[2023-11-15] MEDS: Insulin Glargine,Hum.rec.anlog 100 UNIT/ML 10 ML VIAL 10 UNIT SUBCUT (22:02)
[2023-11-15] MEDS: Atorvastatin Calcium 40 MG TABLET PO (22:04)
[2023-11-15] MEDS: ALPRAZolam 0.5 MG TABLET 1 MG PO (22:27)
[2023-11-16] VITALS (8 sets, daily range): BP systolic 102–146; BP diastolic 55–77; PULSE 81–107; RESP 13–18; TEMP 36–36.6; O2SAT 95–98
--- NOTE | 2023-11-16 03:59 | PC.NURSE ---
2119; Bedtime poc 229, patient reports has been eating poorly. Per aug, order for bedtime [address] Gerber notified, new order for 10 units Lantus. Adminitered and snack provided to patient.
[2023-11-16 07:33] LABS: Glucose, Whole Blood 218 mg/dL (60-115)
[2023-11-16] MEDS: Insulin Lispro 100 UNIT/ML 3 ML VIAL SUBCUT ×5 (08:42→21:25)
[2023-11-16] MEDS: ALPRAZolam 0.5 MG TABLET 2 MG PO (08:44)
[2023-11-16] MEDS: QUEtiapine Fumarate 50 MG TABLET PO ×3 (08:45→21:07)
[2023-11-16] MEDS: Gabapentin 300 MG CAPSULE 900 MG PO ×3 (08:45→21:08)
[2023-11-16] MEDS: amLODIPine Besylate 10 MG TABLET PO (08:45)
[2023-11-16] MEDS: Acetaminophen 325 MG TABLET 975 MG PO (08:46)
[2023-11-16] MEDS: lisinopriL 20 MG TABLET PO (08:47)
[2023-11-16] MEDS: methADONE HCl 20 MG/2 ML ORAL.CONC 195 MG PO (08:48)
[2023-11-16] MEDS: Doxycycline Monohydrate 100 MG CAPSULE PO (08:48)
[2023-11-16] MEDS: levoFLOXacin 500 MG TABLET PO (08:50)
--- NOTE | 2023-11-16 10:55 | PCN2_ITS ---
Brief Operative Note Date of procedure: 11/16/23 Pre-op diagnosis: Needs long-term iv access for Antibiotics, failed bedside at [facility] Post-op diagnosis: same Procedure: Right arm single lumen 37 cm PICC placed using US and Fluoro. Tip at cavoatrial junction. Ok for use. Anesthesia: local
--- NOTE | 2023-11-16 10:55 | PM.PROC ---
Brief Operative Note Date of procedure: 11/16/23 Pre-op diagnosis: Needs care home iv access for Antibiotics, failed bedside attempt Post-op diagnosis: same Procedure: Right arm single lumen 37 cm PICC placed using US and Fluoro. Tip at cavoatrial junction. Ok for use. Anesthesia: local
[2023-11-16 11:40] LABS: Glucose, Whole Blood 203 mg/dL (60-115)
--- NOTE | 2023-11-16 12:00 | MHC.RECOVRN ---
Pts referral sent to [facility].
--- NOTE | 2023-11-16 12:43 | P.CDIM_ITS ---
PROVIDER RESPONSE TEXT: To clarify, the appropriate diagnosis supported by the clinical indicators: Other (explain): concern of acute osteomyelitis QUERY TEXT: PHYSICIAN'S DOCUMENTATION REQUEST Date of Query: 11/16/2023 11:44 AM EDT Patient Name: TRINA CARDENAS Admit Date: 11/09/2023 Dear Thor Patel, A review of the medical record indicates additional documentation may be needed. Please review below and update the documentation accordingly Clinical Indicators: Progress notes under the Plan: Patient will be admitted to the hospital for osteomyelitis of bilatera l feet secondary to chronic diabetic foot ulcers. Osteomyelitis (OM) of bilateral feet secondary to chronic diabetic ulcers. IV Abx Cefepime and Vancomycin ID consult - PICC line Vascular surgery recommend amputation given the chronic nature of his wounds, however he's refusing. ID 11/14 - Osteomyelitis OM left 4th and 5th metatarsal. Change to Vancomycin if MRSA seen. Based on the above, please clarify in the Progress Notes further specificity regarding the acuity of Osteomyelitis. Acute osteomyelitis Subacute osteomyelitis Chronic osteomyelitis Other (explain) Clinically unable to determine (explain) Thank you, Juliet Garg, CCS, CDIS Use of terms such as suspected, likely, concern for, or probable (associated with a specific diagnosi s that is being evaluated, monitored, or treated as if it exists) are acceptable and can be coded in the inpatient se tting, when documented at the time of discharge. Please use your independent medical judgment in providing your response. THIS QUERY IS PART OF THE PERMANENT MEDICAL RECORD
--- NOTE | 2023-11-16 16:19 | HO.PM.IMPN ---
Subjective Subjective Date of Service: 11/16/23 Interval History: Osteomyelitis (OM) of bilateral feet secondary to chronic diabetic foot ulcers Review of Systems no nee c/o Physical Exam Vital Signs: Vital Signs: Last Vital Signs Temp 96.8 F 11/16/23 16:00 Pulse 100 11/16/23 16:00 Resp 14 11/16/23 16:00 BP 112/63 11/16/23 16:00 Pulse Ox 95 11/16/23 16:00 O2 Del Method Nasal Cannula 11/16/23 16:00 O2 Flow Rate 2 11/16/23 16:00 FiO2 99 11/05/23 18:24 Oxygen Flow Rate 2 10/28/23 00:15 BMI result Body Mass Index 38.7 Objective Data Active Medications Acetaminophen (Acetaminophen 325 Mg Tablet) 975 mg PO TID [facility] Last Admin: 11/16/23 14:10 Dose: Not Given Documented By: TEJAS Non-Admin Reason: Patient Refused Acetaminophen (Acetaminophen 325 Mg Tablet) 650 mg PO Q6H PRN PRN Reason: Pain, Mild (Pain Scale 1-3) Alprazolam (Alprazolam 0.5 Mg Tablet) 1 mg PO BEDTIME PRN PRN Reason: insomnia Last Admin: 11/15/23 22:27 Dose: 1 mg Documented By: DAVION Alprazolam (Alprazolam 0.5 Mg Tablet) 2 mg PO DAILY [facility] Last Admin: 11/16/23 08:44 Dose: 2 mg Documented By: KALEY Amlodipine Besylate (Amlodipine Besylate 10 Mg Tablet) 10 mg PO DAILY [facility]; Protocol Last Admin: 11/16/23 08:45 Dose: 10 mg Documented By: KALEY Atorvastatin Calcium (Atorvastatin Calcium 40 Mg Tablet) 40 mg PO BEDTIME [facility] Last Admin: 11/15/23 22:04 Dose: 40 mg Documented By: DAVION Gabapentin (Gabapentin 300 Mg Capsule) 900 mg PO TID [facility] Last Admin: 11/16/23 14:09 Dose: 900 mg Documented By: TEJAS Glucose (Glucose Gel 15 Gm Gel..Gram.) 15 gm PO Q15M PRN; Protocol PRN Reason: per Hypoglycemia Standing Ord. Dextrose (D10) 250 mls @ 750 mls/hr IV Q15M PRN; Protocol PRN Reason: per Hypoglycemia Standing Ord. Meropenem 1 gm/ Sodium (Chloride) 100 mls @ 200 mls/hr IV Q8H [facility] Last Infusion: 11/16/23 12:22 Dose: Infused Documented By: TEJAS Ibuprofen (Ibuprofen 800 Mg Tablet) 800 mg PO Q8H PRN PRN Reason: Pain (Scale Score 4-6) Insulin Glargine (Insulin Glargine,Hum.Rec.Anlog 100 Unit/Ml 10 Ml Vial) 15 unit SUBCUT BEDTIME RICHARD Insulin Human Lispro (Insulin Lispro 100 Unit/Ml 3 Ml Vial) 0 unit SUBCUT QIDACHS [facility]; Protocol Last Admin: 11/16/23 11:51 Dose: 4 unit Documented By: TEJAS Insulin Human Lispro (Insulin Lispro 100 Unit/Ml 3 Ml Vial) 5 unit SUBCUT TIDAC [facility] Last Admin: 11/16/23 11:51 Dose: 5 unit Documented By: TEJAS Lisinopril (Lisinopril 20 Mg Tablet) 20 mg PO DAILY [facility]; Protocol Last Admin: 11/16/23 08:47 Dose: 20 mg Documented By: KALEY Melatonin (Melatonin 3 Mg Tablet) 6 mg PO BEDTIME PRN PRN Reason: Insomnia Methadone HCl (Methadone Hcl 20 Mg/2 Ml Oral.Conc) 195 mg PO DAILY [facility] Last Admin: 11/16/23 08:48 Dose: 195 mg Documented By: KALEY Ondansetron HCl (Ondansetron Hcl 4 Mg/2 Ml Vial) 4 mg IVPUSH Q8H PRN PRN Reason: Nausea and Vomiting Ondansetron HCl (Ondansetron Odt 4 Mg Tab.Rapdis) 4 mg TRANSLINGU Q8H PRN PRN Reason: Nausea and Vomiting Last Admin: 11/15/23 09:02 Dose: 4 mg Documented By: EMMIE Quetiapine Fumarate (Quetiapine Fumarate 50 Mg Tablet) 50 mg PO TID [facility] Last Admin: 11/09/23 17:29 Dose: Not Given Documented By: AYAZ Non-Admin Reason: Physician Held Med Quetiapine Fumarate (Quetiapine Fumarate 50 Mg Tablet) 50 mg PO TID [facility] Last Admin: 11/16/23 14:10 Dose: 50 mg Documented By: TEJAS Sodium Chloride (0.9 % Sodium Chloride Flush 3 Ml Syringe) 3 ml IVFLUSH QSHIFT [facility] Last Admin: 11/16/23 08:54 Dose: Not Given Documented By: KALEY Non-Admin Reason: No Access Labs 11/10/23 05:46 11/12/23 15:08 Labs: Laboratory Results - last 24 hr 11/15/23 11/15/23 11/16/23 16:11 20:34 07:26 POC Glucose 220 H 229 H 218 H 11/16/23 11:26 POC Glucose 203 H Assessment and Plan (1) Osteomyelitis: Status: Acute Plan 53-year-old male with a PMH significant for?HTN, HLD, insulin-dependent type 2 diabetes, diabetic/peripheral neuropathy, hx of osteomyelitis from chronic diabetic foot ulcers s/p right TMA, polysubstance use disorder on methadone, and mood disorder who originally presented to the ED on 10/27/2023 after being discharged from rehab with no place to go. Patient initially placed into physician observation in overflow, though moved back to the ED due to hypotension and worsening bilateral chronic feet wounds. Patient will be admitted to the hospital for osteomyelitis of bilateral feet secondary to chronic diabetic foot ulcers. concern of acute Osteomyelitis (OM) of bilateral feet secondary to chronic diabetic foot ulcers -he has been refusing IV insertion, IV Abx, -hold Abx Cefepime and Vancomycin and add PO Doxy and Levaquin and discussed with surgery and ID tomorrow, his best option is likely amputation which he is also refusing Discussed with ID and survey director-patient might need to go to rehab for antibiotics, PICC line order placed. HypOtension--Not due sepsis, resolved with IVF HLD Continue statin HTN--BPs very high now, continue Lisinopril, start Norvasc 5 mg daily Insulin-dependent type 2 diabetes Sliding-scale insulin, Lantus at 35, and pre meal insulin 5 unit if BS > 200 Diabetic diet Mood disorder Continue quetiapine, alprazolam Polysubstance use disorder Continue methadone Full Code DVT Prophylaxis: Lovenox need for inpt: IV Abx for OM, diabetic wound, expert evaluation for intervention Quality Stroke Does the patient have a stroke diagnosis?: No VTE Prior VTE?: No VTE Risk Level:: Medical - moderate - high VTE Device Contraindication: Treatment Not Indicated VTE Drug Contraindication: N/A - Med Ordered
[2023-11-16 16:56] LABS: Glucose, Whole Blood 119 mg/dL (60-115)
[2023-11-16] MEDS: 0.9 % Sodium Chloride Flush 10 ML SYRINGE 5 ML IVFLUSH ×2 (17:53→21:14)
[2023-11-16 20:14] LABS: Glucose, Whole Blood 342 mg/dL (60-115)
[2023-11-16] MEDS: Atorvastatin Calcium 40 MG TABLET PO (21:07)
[2023-11-16] MEDS: ALPRAZolam 0.5 MG TABLET 1 MG PO (21:07)
[2023-11-16] MEDS: Insulin Glargine,Hum.rec.anlog 100 UNIT/ML 10 ML VIAL 15 UNIT SUBCUT (21:24)
[2023-11-17 03:34] VITALS: BP 92/46; PULSE 69; RESP 18; TEMP 36.3; O2SAT 97
[2023-11-17 07:29] LABS: Glucose, Whole Blood 200 mg/dL (60-115)
[2023-11-17 07:56] VITALS: BP 80/60; PULSE 67; RESP 16; TEMP 36.2; O2SAT 97
[2023-11-17] MEDS: 0.9 % Sodium Chloride 1,000 ML 999 ML IVCONT ×2 (08:12→09:14)
[2023-11-17] MEDS: Insulin Lispro 100 UNIT/ML 3 ML VIAL SUBCUT ×7 (08:59→21:35)
[2023-11-17 09:19] VITALS: BP 119/58
--- NOTE | 2023-11-17 09:37 | HO.VASCPN ---
Subjective Subjective Date of Service: 11/17/23 Patient reports: no new complaints and feels better Interval history: Extremely complex 53-year-old gentleman presents for follow-up regarding nonhealing left lower extremity ulcer. He has been on antibiotics with no significant improvement. Of note he has had prior fasciotomies on this leg. Was concerned about the situation and wanted to rediscuss his options for surgery Physical Exam Vital Signs: Vital Signs: Last Vital Signs Temp 97.2 F 11/17/23 07:56 Pulse 67 11/17/23 07:56 Resp 16 11/17/23 07:56 BP 119/58 L 11/17/23 09:19 Pulse Ox 97 11/17/23 07:56 O2 Del Method Nasal Cannula 11/17/23 07:56 O2 Flow Rate 2 11/17/23 07:56 FiO2 99 11/05/23 18:24 Oxygen Flow Rate 2 10/28/23 00:15 BMI result Body Mass Index 38.7 Const: General: cooperative, healthy appearing and comfortable Orientation/consciousness: oriented to person, oriented to place and oriented to time HEENT: Head: Yes normal to inspection Neck: Neck: Yes normal visual inspection Carotids: no bruits Chest: Chest palpation & inspection: normal inspection of the chest Resp: Effort & Inspection: normal respiratory effort and able to speak in complete sentences Auscultation: clear to auscultation bilaterally, no crackles, no rales, no rhonchi and no wheezes Cardio: Rate: regular rate Rhythm: regular rhythm Heart sounds: S1 normal heart sound present and S2 normal heart sound present Bruits: no carotid bruits Peripheral pulses: Peripheral pulses 2+ throughout GI: Inspection: Yes normal to inspection Skin: Other: Ulcer left heel with cellulitis up to mid Wounds: no wounds Hair: normal Neuro: General: oriented to person, oriented to place and oriented to time Cranial nerves: Yes CN's II-XII intact bilaterally and Yes Normal hearing present Cognition (Neuro): normal cognition Motor exam (neuro): 5/5 motor strength present throughout Extrem: Other: venous exam: No significant superficial varicosities or spider telangiectasias, minimal edema General: No clubbing, No cyanosis and No edema Psych: Appearance: grossly normal Mental Status: mental status grossly normal Speech and movement: Normal speech and movement present Progress Note: A&P Assessment and plan (1) Diabetic foot ulcer: Status: Acute Assessment and Plan: In short he has a nonhealing diabetic foot ulcer. Due to the chronicity of his overall ulcer along with his noncompliance I do think that his best course is a below-knee amputation. I did spend an extensive amount of time discussing risks benefits complications of the surgery. Options of surgery which would be most beneficial to have a below-knee amputation. In addition the risk of nonhealing. It has unclear how the flap will heal as he has had prior fasciotomies and unsure of the underlying quality of muscle. We did also discuss future prosthetic and the possibility of different types of prosthetic should his stump site heal well. Once again I could not give him an exact estimation of healing time due to the prior surgeries on the leg. After all of this he decided he wanted to hold off on surgery. He did want to discuss his options with his father. Once again we will follow on an as-needed basis. Recall if he does require amputation Time Spent With Patient Time: Total time managing care of this patient today _60___ minutes. Procedures Date of Service Date of Service: 11/17/23 Quality Stroke Does the patient have a stroke diagnosis?: No VTE Prior VTE?: No VTE Risk Level:: Medical - moderate - high VTE Device Contraindication: Treatment Not Indicated VTE Drug Contraindication: N/A - Med Ordered
[2023-11-17] MEDS: methADONE HCl 20 MG/2 ML ORAL.CONC 195 MG PO (10:40)
--- NOTE | 2023-11-17 11:17 | MHC.CM.PN ---
A call was received from Ramiro ham. She requested the H+P. H+P sent via [employer]. She was also looking for a recent PT note. PT eval 10/29 was done [facility]. Ramiro was notified that the patient will transfer on Monday.
[2023-11-17 11:36] LABS: Glucose, Whole Blood 210 mg/dL (60-115)
--- NOTE | 2023-11-17 12:15 | MHC.RECOVRN ---
Pt signed AARON for [facility], has been faxed back to [facility]. Pt all set to begin dosing.
--- NOTE | 2023-11-17 14:00 | HO.PM.IMPN ---
Subjective Subjective Date of Service: 11/17/23 Interval History: hypotension episode Review of Systems po inatke is still low from few days denies any c/o, no fevers or chills Physical Exam Vital Signs: Vital Signs: Last Vital Signs Temp 97.2 F 11/17/23 07:56 Pulse 67 11/17/23 07:56 Resp 16 11/17/23 07:56 BP 119/58 L 11/17/23 09:19 Pulse Ox 97 11/17/23 07:56 O2 Del Method Nasal Cannula 11/17/23 07:56 O2 Flow Rate 2 11/17/23 07:56 FiO2 99 11/05/23 18:24 Oxygen Flow Rate 2 10/28/23 00:15 BMI result Body Mass Index 38.7 General: awake, no distress Resp: CTA bilaterally CVS: S1, S2, RRR GI: +BS, NT, no distention Skin: Warm, dry Neuro: Cranial nerves II-XII grossly intact bilaterally. Motor grossly intact bilaterally Extremities: Left foot chronic midfoot wound on the lateral aspect with some purulent drainage. Right foot s/p TMA with chronic appearing wound without discharge. Objective Data Active Medications Acetaminophen (Acetaminophen 325 Mg Tablet) 975 mg PO TID [facility] Last Admin: 11/17/23 09:01 Dose: Not Given Documented By: TEJAS Non-Admin Reason: Patient Refused Acetaminophen (Acetaminophen 325 Mg Tablet) 650 mg PO Q6H PRN PRN Reason: Pain, Mild (Pain Scale 1-3) Alprazolam (Alprazolam 0.5 Mg Tablet) 1 mg PO BEDTIME PRN PRN Reason: insomnia Last Admin: 11/16/23 21:07 Dose: 1 mg Documented By: LUAN Alprazolam (Alprazolam 0.5 Mg Tablet) 2 mg PO DAILY [facility] Last Admin: 11/17/23 10:29 Dose: Not Given Documented By: TEJAS Non-Admin Reason: Physician Held Med Atorvastatin Calcium (Atorvastatin Calcium 40 Mg Tablet) 40 mg PO BEDTIME [facility] Last Admin: 11/16/23 21:07 Dose: 40 mg Documented By: LUAN Gabapentin (Gabapentin 300 Mg Capsule) 900 mg PO TID [facility] Last Admin: 11/17/23 10:29 Dose: Not Given Documented By: TEJAS Non-Admin Reason: Physician Held Med Glucose (Glucose Gel 15 Gm Gel..Gram.) 15 gm PO Q15M PRN; Protocol PRN Reason: per Hypoglycemia Standing Ord. Dextrose (D10) 250 mls @ 750 mls/hr IV Q15M PRN; Protocol PRN Reason: per Hypoglycemia Standing Ord. Meropenem 1 gm/ Sodium (Chloride) 100 mls @ 200 mls/hr IV Q8H [facility] Last Infusion: 11/17/23 11:24 Dose: Infused Documented By: TEJAS Insulin Glargine (Insulin Glargine,Hum.Rec.Anlog 100 Unit/Ml 10 Ml Vial) 15 unit SUBCUT BEDTIME [facility] Last Admin: 11/16/23 21:24 Dose: 15 unit Documented By: LUAN Insulin Human Lispro (Insulin Lispro 100 Unit/Ml 3 Ml Vial) 0 unit SUBCUT QIDACHS [facility]; Protocol Last Admin: 11/17/23 12:10 Dose: 4 unit Documented By: TEJAS Insulin Human Lispro (Insulin Lispro 100 Unit/Ml 3 Ml Vial) 5 unit SUBCUT TIDAC [facility] Last Admin: 11/17/23 12:10 Dose: 5 unit Documented By: TEJAS Lisinopril (Lisinopril 20 Mg Tablet) 20 mg PO DAILY [facility]; Protocol Last Admin: 11/16/23 08:47 Dose: 20 mg Documented By: KALEY Melatonin (Melatonin 3 Mg Tablet) 6 mg PO BEDTIME PRN PRN Reason: Insomnia Methadone HCl (Methadone Hcl 20 Mg/2 Ml Oral.Conc) 195 mg PO DAILY [facility] Last Admin: 11/17/23 10:40 Dose: 195 mg Documented By: TEJAS Ondansetron HCl (Ondansetron Hcl 4 Mg/2 Ml Vial) 4 mg IVPUSH Q8H PRN PRN Reason: Nausea and Vomiting Ondansetron HCl (Ondansetron Odt 4 Mg Tab.Rapdis) 4 mg TRANSLINGU Q8H PRN PRN Reason: Nausea and Vomiting Last Admin: 11/15/23 09:02 Dose: 4 mg Documented By: EMMIE Quetiapine Fumarate (Quetiapine Fumarate 50 Mg Tablet) 50 mg PO TID [facility] Last Admin: 11/09/23 17:29 Dose: Not Given Documented By: AYAZ Non-Admin Reason: Physician Held Med Quetiapine Fumarate (Quetiapine Fumarate 50 Mg Tablet) 50 mg PO TID [facility] Last Admin: 11/17/23 10:29 Dose: Not Given Documented By: TEJAS Non-Admin Reason: Physician Held Med Sodium Chloride (0.9 % Sodium Chloride Flush 3 Ml Syringe) 3 ml IVFLUSH QSHIFT [facility] Last Admin: 11/17/23 08:43 Dose: Not Given Documented By: TEJAS Non-Admin Reason: IV Running Sodium Chloride (0.9 % Sodium Chloride Flush 10 Ml Syringe) 5 ml IVFLUSH TID [facility] Last Admin: 11/17/23 08:43 Dose: Not Given Documented By: TEJAS Non-Admin Reason: IV Running Labs 11/17/23 14:35 11/17/23 Unknown Labs: Laboratory Results - last 24 hr 11/16/23 11/16/23 11/17/23 16:52 19:59 07:13 POC Glucose 119 H 342 H 200 H 11/17/23 11:10 POC Glucose 210 H Assessment and Plan (1) Acute osteomyelitis of foot: Status: Acute Plan 53-year-old male with a PMH significant for?HTN, HLD, insulin-dependent type 2 diabetes, diabetic/peripheral neuropathy, hx of osteomyelitis from chronic diabetic foot ulcers s/p right TMA, polysubstance use disorder on methadone, and mood disorder who originally presented to the ED on 10/27/2023 after being discharged from rehab with no place to go. Patient initially placed into physician observation in overflow, though moved back to the ED due to hypotension and worsening bilateral chronic feet wounds. Patient will be admitted to the hospital for osteomyelitis of bilateral feet secondary to chronic diabetic foot ulcers. possible acute Osteomyelitis (OM) of bilateral feet secondary to chronic diabetic foot ulcers -he has been refusing IV insertion, IV Abx, -hold Abx Cefepime and Vancomycin and add PO Doxy and Levaquin and discussed with surgery and ID tomorrow, his best option is likely amputation which he is also refusing Discussed with ID and business executive-patient might need to go to rehab for antibiotics, PICC line order placed. HypOtension--possible due to dec po intake ,htn meds ,Not due sepsis, resolved with IVF , moniter today HLD Continue statin HTN--BPs very high now, continue Lisinopril, start Norvasc 5 mg daily Insulin-dependent type 2 diabetes Sliding-scale insulin, Lantus at 35, and pre meal insulin 5 unit if BS > 200 Diabetic diet Mood disorder Continue quetiapine, alprazolam Polysubstance use disorder Continue methadone Full Code DVT Prophylaxis: Lovenox need for inpt: IV Abx for OM, diabetic wound, expert evaluation for intervention Quality Stroke Does the patient have a stroke diagnosis?: No VTE Prior VTE?: No VTE Risk Level:: Medical - moderate - high VTE Device Contraindication: Treatment Not Indicated VTE Drug Contraindication: N/A - Med Ordered
--- NOTE | 2023-11-17 14:18 | MHC.CLN ---
PT WITH POOR PO INTAKE RECOMMEND ADDING ENSURE MAX BID TO PROVIDE 300KCALS, 60G PROTEIN MONITOR PO INTAKE AND ENCOURAGE SUPPLEMENTS
[2023-11-17 14:43] LABS: Hematocrit 30.7 % (42.0-52.0); Mean Corpuscular HGB Conc 32.6 g/dl (31.0-36.0); Mean Corpuscular Hemoglobin 28.5 pg (27.0-33.0); Mean Corpuscular Volume 87.5 fL (80.0-98.0); Mean Platelet Volume 10.6 fL (9.4-12.4); NRBC Pct Auto 0.4 /100WBC (0.0-0.2); Platelet Count 183 X10*3/uL (160-400); Red Blood Count 3.51 X10*6/uL (4.60-5.80); Red Cell Distribution Width 16.4 % (11.0-16.0); White Blood Count 11.1 X10*3/uL (4.8-10.8)
[2023-11-17 14:57] LABS: Anion Gap 11 (12-20); Blood Urea Nitrogen 36 mg/dL (9-16); Calcium 8.4 mg/dL (8.4-10.2); Carbon Dioxide 23 mmol/L (22-29); Chloride 106 mmol/L (96-108); Creatinine Clr Calc Pharmacy 59.9; Estimated Glomerular Filt Rate 36; Glucose Random 238 mg/dL (60-115); Potassium 4.5 mmol/L (3.3-5.1); Sodium 135 mmol/L (135-145)
[2023-11-17 15:47] VITALS: BP 100/60; PULSE 73; RESP 15; TEMP 36.2; O2SAT 97
[2023-11-17 16:27] LABS: Glucose, Whole Blood 218 mg/dL (60-115)
[2023-11-17] MEDS: 0.9 % Sodium Chloride Flush 10 ML SYRINGE 5 ML IVFLUSH ×2 (16:51→21:48)
[2023-11-17 20:00] VITALS: BP 102/58; PULSE 86; RESP 16; TEMP 37.1; O2SAT 98
[2023-11-17 20:18] LABS: Glucose, Whole Blood 236 mg/dL (60-115)
[2023-11-17] MEDS: Insulin Glargine,Hum.rec.anlog 100 UNIT/ML 10 ML VIAL 15 UNIT SUBCUT (21:36)
[2023-11-17 21:41] VITALS: BP 155/71; PULSE 86
[2023-11-17] MEDS: QUEtiapine Fumarate 50 MG TABLET PO (21:49)
[2023-11-17] MEDS: Atorvastatin Calcium 40 MG TABLET PO (21:49)
[2023-11-17] MEDS: Gabapentin 300 MG CAPSULE 900 MG PO (21:50)
[2023-11-17] MEDS: ALPRAZolam 0.5 MG TABLET 1 MG PO (21:51)
[2023-11-18 02:36] VITALS: BP 136/69; PULSE 86; RESP 16; TEMP 36.5; O2SAT 99
[2023-11-18 07:21] LABS: Glucose, Whole Blood 241 mg/dL (60-115)
[2023-11-18 08:00] VITALS: BP 136/71; PULSE 76; RESP 18; TEMP 36.4; O2SAT 93
[2023-11-18] MEDS: Insulin Lispro 100 UNIT/ML 3 ML VIAL SUBCUT ×7 (08:05→22:00)
[2023-11-18] MEDS: ALPRAZolam 0.5 MG TABLET 2 MG PO (08:06)
[2023-11-18] MEDS: QUEtiapine Fumarate 50 MG TABLET PO ×3 (08:06→22:00)
[2023-11-18] MEDS: 0.9 % Sodium Chloride Flush 10 ML SYRINGE 5 ML IVFLUSH ×2 (08:09→22:02)
[2023-11-18] MEDS: Gabapentin 100 MG CAPSULE PO ×3 (09:19→22:00)
[2023-11-18] MEDS: methADONE HCl 20 MG/2 ML ORAL.CONC 195 MG PO (09:20)
[2023-11-18] MEDS: Lactated Ringers 1,000 ML 100 ML IVCONT ×2 (09:23→22:07)
[2023-11-18 10:52] LABS: Anion Gap 14 (12-20); Blood Urea Nitrogen 22 mg/dL (9-16); Calcium 8.3 mg/dL (8.4-10.2); Carbon Dioxide 20 mmol/L (22-29); Chloride 106 mmol/L (96-108); Creatinine Clr Calc Pharmacy 101.3; Estimated Glomerular Filt Rate > 60; Glucose Random 269 mg/dL (60-115); Potassium 4.9 mmol/L (3.3-5.1); Sodium 135 mmol/L (135-145)
[2023-11-18 11:51] LABS: Glucose, Whole Blood 231 mg/dL (60-115)
--- NOTE | 2023-11-18 11:59 | P.PNIM_ITS ---
Subjective Subjective Date of Service: 11/18/23 Interval History: abby,hypotension Review of Systems encouraged for po intake Denies any chest pain or shortness of breath or fever or chills Physical Exam 2 Vital Signs: Vital Signs: Last Vital Signs Temp 97.6 F 11/18/23 08:00 Pulse 76 11/18/23 08:00 Resp 18 11/18/23 08:00 BP 136/71 11/18/23 08:00 Pulse Ox 93 11/18/23 08:00 O2 Del Method Nasal Cannula 11/18/23 08:00 O2 Flow Rate 2 11/17/23 15:47 FiO2 99 11/05/23 18:24 Oxygen Flow Rate 2 10/28/23 00:15 BMI result Body Mass Index 38.7 General: awake, no distress Resp: CTA bilaterally CVS: S1, S2, RRR GI: +BS, NT, no distention Skin: Warm, dry Neuro: Cranial nerves II-XII grossly intact bilaterally. Motor grossly intact bilaterally Extremities: Left foot chronic midfoot wound on the lateral aspect with some purulent drainage. Right foot s/p TMA with chronic appearing wound without discharge. Objective Data Active Medications Acetaminophen (Acetaminophen 325 Mg Tablet) 975 mg PO TID [facility] Last Admin: 11/18/23 08:14 Dose: Not Given Documented By: VANESSA Non-Admin Reason: Patient Refused Acetaminophen (Acetaminophen 325 Mg Tablet) 650 mg PO Q6H PRN PRN Reason: Pain, Mild (Pain Scale 1-3) Alprazolam (Alprazolam 0.5 Mg Tablet) 1 mg PO BEDTIME PRN PRN Reason: insomnia Last Admin: 11/17/23 21:51 Dose: 1 mg Documented By: ANDREW Comments: insomnia Alprazolam (Alprazolam 0.5 Mg Tablet) 2 mg PO DAILY [facility] Last Admin: 11/18/23 08:06 Dose: 2 mg Documented By: VANESSA Atorvastatin Calcium (Atorvastatin Calcium 40 Mg Tablet) 40 mg PO BEDTIME [facility] [place] Last Admin: 11/17/23 21:49 Dose: 40 mg Documented By: ANDREW Gabapentin (Gabapentin 100 Mg Capsule) 100 mg PO TID [facility] Last Admin: 11/18/23 09:19 Dose: 100 mg Documented By: FANNIE Glucose (Glucose Gel 15 Gm Gel..Gram.) 15 gm PO Q15M PRN; Protocol PRN Reason: per Hypoglycemia Standing Ord. Dextrose (D10) 250 mls @ 750 mls/hr IV Q15M PRN; Protocol PRN Reason: per Hypoglycemia Standing Ord. Meropenem 1 gm/ Sodium (Chloride) 100 mls @ 200 mls/hr IV Q8H [facility] [place] Last Infusion: 11/18/23 10:47 Dose: Infused Documented By: VANESSA Lactated Ringer's (Lr) 1,000 mls @ 100 mls/hr IVCONT .Q10H [facility] Last Admin: 11/18/23 09:23 Dose: 100 mls/hr Documented By: FANNIE Albumin Human (Kedbumin 25 %) 100 mls @ 100 mls/hr IV Q6H [facility] Stop: 11/19/23 06:59 Insulin Glargine (Insulin Glargine,Hum.Rec.Anlog 100 Unit/Ml 10 Ml Vial) 15 unit SUBCUT BEDTIME [facility] Last Admin: 11/17/23 21:36 Dose: 15 unit Documented By: ANDREW Insulin Human Lispro (Insulin Lispro 100 Unit/Ml 3 Ml Vial) 0 unit SUBCUT QIDACHS [facility]; Protocol Last Admin: 11/18/23 08:05 Dose: 4 unit Documented By: VANESSA Insulin Human Lispro (Insulin Lispro 100 Unit/Ml 3 Ml Vial) 5 unit SUBCUT TIDAC [facility] Last Admin: 11/18/23 08:05 Dose: 5 unit Documented By: VANESSA Melatonin (Melatonin 3 Mg Tablet) 6 mg PO BEDTIME PRN PRN Reason: Insomnia Methadone HCl (Methadone Hcl 20 Mg/2 Ml Oral.Conc) 195 mg PO DAILY [facility] [place] Last Admin: 11/18/23 09:20 Dose: 195 mg Documented By: FANNIE Ondansetron HCl (Ondansetron Hcl 4 Mg/2 Ml Vial) 4 mg IVPUSH Q8H PRN PRN Reason: Nausea and Vomiting Ondansetron HCl (Ondansetron Odt 4 Mg Tab.Rapdis) 4 mg TRANSLINGU Q8H PRN PRN Reason: Nausea and Vomiting Last Admin: 11/15/23 09:02 Dose: 4 mg Documented By: EMMIE Quetiapine Fumarate (Quetiapine Fumarate 50 Mg Tablet) 50 mg PO TID [facility] [place] Last Admin: 11/18/23 08:06 Dose: 50 mg Documented By: VANESSA Sodium Chloride (0.9 % Sodium Chloride Flush 3 Ml Syringe) 3 ml IVFLUSH QSHIFT [facility] [place] Last Admin: 11/18/23 08:13 Dose: Not Given Documented By: VANESSA Non-Admin Reason: med alrady given Sodium Chloride (0.9 % Sodium Chloride Flush 10 Ml Syringe) 5 ml IVFLUSH TID [facility] [place] Last Admin: 11/18/23 08:09 Dose: 5 ml Documented By: VANESSA Labs 11/17/23 14:35 11/18/23 10:27 Labs: Laboratory Results - last 24 hr 11/17/23 11/17/23 11/17/23 14:35 16:17 20:12 MCV 87.5 MCH 28.5 MCHC 32.6 RDW 16.4 H Plt Count 183 D MPV 10.6 Absolute Nucleated RBC 0.040 H Nucleated RBC % (auto) 0.4 H Anion Gap Estim Creat Clear Calc Estimated GFR POC Glucose 218 H 236 H Random Glucose Calcium 11/17/23 11/18/23 11/18/23 Unknown 07:12 10:27 MCV MCH MCHC RDW Plt Count MPV Absolute Nucleated RBC Nucleated RBC % (auto) Anion Gap 11 L 14 Estim Creat Clear Calc 59.9 101.3 Estimated GFR 36 > 60 POC Glucose 241 H Random Glucose 238 H 269 H Calcium 8.4 D 8.3 L 11/18/23 11:35 MCV MCH MCHC RDW Plt Count MPV Absolute Nucleated RBC Nucleated RBC % (auto) Anion Gap Estim Creat Clear Calc Estimated GFR POC Glucose 231 H Random Glucose Calcium Assessment and Plan (1) Osteomyelitis: Status: Acute (2) Acute osteomyelitis of foot: Status: Acute (3) ABBY (acute kidney injury): Status: Acute Plan 53-year-old male with a PMH significant for?HTN, HLD, insulin-dependent type 2 diabetes, diabetic/peripheral neuropathy, hx of osteomyelitis from chronic diabetic foot ulcers s/p right TMA, polysubstance use disorder on methadone, and mood disorder who originally presented to the ED on 10/27/2023 after being discharged from rehab with no place to go. Patient initially placed into physician observation in overflow, though moved back to the ED due to hypotension and worsening bilateral chronic feet wounds. Patient will be admitted to the hospital for osteomyelitis of bilateral feet secondary to chronic diabetic foot ulcers. possible acute Osteomyelitis (OM) of bilateral feet secondary to chronic diabetic foot ulcers -he has been refusing IV insertion, IV Abx, -hold Abx Cefepime and Vancomycin and add PO Doxy and Levaquin and discussed with surgery and ID tomorrow, his best option is likely amputation which he is also refusing seen by vascular, possible surgery early next week. abby/HypOtension--possible due to dec po intake ,htn meds ,Not due sepsis, resolved with IVF . added albumin moniter renal function renal us pending HLD Continue statin HTN--BPs very high now, continue Lisinopril, start Norvasc 5 mg daily Insulin-dependent type 2 diabetes Sliding-scale insulin, Lantus at 35, and pre meal insulin 5 unit if BS > 200 Diabetic diet Mood disorder Continue quetiapine, alprazolam Polysubstance use disorder Continue methadone Full Code DVT Prophylaxis: Lovenox need for inpt: IV Abx for OM, diabetic wound, expert evaluation for intervention Quality Stroke Does the patient have a stroke diagnosis?: No VTE Prior VTE?: No VTE Risk Level:: Medical - moderate - high VTE Device Contraindication: Treatment Not Indicated VTE Drug Contraindication: N/A - Med Ordered
[2023-11-18] MEDS: Albumin Human 25 % 100 ML IV ×3 (12:31→23:51)
[2023-11-18 15:23] VITALS: BP 135/60; PULSE 73; RESP 18; TEMP 36.1; O2SAT 96
[2023-11-18] MEDS: Acetaminophen 325 MG TABLET 975 MG PO (15:55)
[2023-11-18 16:28] LABS: Glucose, Whole Blood 246 mg/dL (60-115)
[2023-11-18 20:00] VITALS: BP 111/53; PULSE 71; RESP 14; TEMP 36.2; O2SAT 94
[2023-11-18 20:36] LABS: Glucose, Whole Blood 271 mg/dL (60-115)
[2023-11-18] MEDS: Insulin Glargine,Hum.rec.anlog 100 UNIT/ML 10 ML VIAL 15 UNIT SUBCUT (22:00)
[2023-11-18] MEDS: Atorvastatin Calcium 40 MG TABLET PO (22:00)
[2023-11-18] MEDS: ALPRAZolam 0.5 MG TABLET 1 MG PO (22:01)
[2023-11-18 23:56] VITALS: BP 128/62; PULSE 73
[2023-11-19 06:00] VITALS: BP 133/65; PULSE 71; RESP 18; TEMP 37; O2SAT 91
[2023-11-19] MEDS: Albumin Human 25 % 100 ML IV (06:13)
[2023-11-19 07:13] VITALS: BP 149/77; PULSE 85; RESP 18; TEMP 36.6; O2SAT 98
[2023-11-19] MEDS: 0.9 % Sodium Chloride Flush 10 ML SYRINGE 5 ML IVFLUSH (07:18)
[2023-11-19 07:43] LABS: Glucose, Whole Blood 283 mg/dL (60-115)
[2023-11-19] MEDS: Insulin Lispro 100 UNIT/ML 3 ML VIAL SUBCUT ×7 (07:50→23:10)
[2023-11-19] MEDS: QUEtiapine Fumarate 50 MG TABLET PO ×3 (07:51→23:06)
[2023-11-19] MEDS: ALPRAZolam 0.5 MG TABLET 2 MG PO (07:51)
[2023-11-19] MEDS: Gabapentin 100 MG CAPSULE PO ×3 (07:51→23:06)
[2023-11-19] MEDS: methADONE HCl 20 MG/2 ML ORAL.CONC 195 MG PO (07:53)
--- NOTE | 2023-11-19 11:25 | HO.PM.IMPN ---
Subjective Subjective Date of Service: 11/19/23 Interval History: abby,hypotension Review of Systems po intake improivng Denies any chest pain or shortness of breath or fever or chills Physical Exam Vital Signs: Vital Signs: Last Vital Signs Temp 98 F 11/19/23 07:13 Pulse 85 11/19/23 07:13 Resp 18 11/19/23 07:13 BP 149/77 H 11/19/23 07:13 Pulse Ox 98 11/19/23 07:13 O2 Del Method Nasal Cannula 11/19/23 07:13 O2 Flow Rate 2 11/19/23 07:13 FiO2 99 11/05/23 18:24 Oxygen Flow Rate 2 10/28/23 00:15 BMI result Body Mass Index 38.7 General: awake, no distress Resp: CTA bilaterally CVS: S1, S2, RRR GI: +BS, NT, no distention Skin: Warm, dry Neuro: Cranial nerves II-XII grossly intact bilaterally. Motor grossly intact bilaterally Extremities: Left foot chronic midfoot wound on the lateral aspect . Right foot s/p TMA with chronic appearing wound without discharge. Objective Data Active Medications Acetaminophen (Acetaminophen 325 Mg Tablet) 975 mg PO TID [facility] Last Admin: 11/19/23 08:51 Dose: Not Given Documented By: VANESSA Non-Admin Reason: Patient Refused Acetaminophen (Acetaminophen 325 Mg Tablet) 650 mg PO Q6H PRN PRN Reason: Pain, Mild (Pain Scale 1-3) Alprazolam (Alprazolam 0.5 Mg Tablet) 1 mg PO BEDTIME PRN PRN Reason: insomnia Last Admin: 11/18/23 22:01 Dose: 1 mg Documented By: ANDREW Atorvastatin Calcium (Atorvastatin Calcium 40 Mg Tablet) 40 mg PO BEDTIME [facility] Last Admin: 11/18/23 22:00 Dose: 40 mg Documented By: ANDREW Gabapentin (Gabapentin 100 Mg Capsule) 100 mg PO TID [facility] Last Admin: 11/19/23 07:51 Dose: 100 mg Documented By: VANESSA Glucose (Glucose Gel 15 Gm Gel..Gram.) 15 gm PO Q15M PRN; Protocol PRN Reason: per Hypoglycemia Standing Ord. Dextrose (D10) 250 mls @ 750 mls/hr IV Q15M PRN; Protocol PRN Reason: per Hypoglycemia Standing Ord. Meropenem 1 gm/ Sodium (Chloride) 100 mls @ 200 mls/hr IV Q8H [facility] Last Infusion: 11/19/23 03:43 Dose: Infused Documented By: ANDREW Lactated Ringer's (Lr) 1,000 mls @ 100 mls/hr IVCONT .Q10H [facility] Last Infusion: 11/19/23 08:51 Dose: Infused Documented By: VANSESA Insulin Glargine (Insulin Glargine,Hum.Rec.Anlog 100 Unit/Ml 10 Ml Vial) 15 unit SUBCUT BEDTIME [facility] Last Admin: 11/18/23 22:00 Dose: 15 unit Documented By: ANDREW Insulin Human Lispro (Insulin Lispro 100 Unit/Ml 3 Ml Vial) 0 unit SUBCUT QIDACHS [facility]; Protocol Last Admin: 11/19/23 07:50 Dose: 6 unit Documented By: VANESSA Insulin Human Lispro (Insulin Lispro 100 Unit/Ml 3 Ml Vial) 5 unit SUBCUT TIDAC [facility] Last Admin: 11/19/23 07:50 Dose: 5 unit Documented By: VANESSA Melatonin (Melatonin 3 Mg Tablet) 6 mg PO BEDTIME PRN PRN Reason: Insomnia Methadone HCl (Methadone Hcl 20 Mg/2 Ml Oral.Conc) 195 mg PO DAILY [facility] Last Admin: 11/19/23 07:53 Dose: 195 mg Documented By: VANESSA Ondansetron HCl (Ondansetron Hcl 4 Mg/2 Ml Vial) 4 mg IVPUSH Q8H PRN PRN Reason: Nausea and Vomiting Ondansetron HCl (Ondansetron Odt 4 Mg Tab.Rapdis) 4 mg TRANSLINGU Q8H PRN PRN Reason: Nausea and Vomiting Last Admin: 11/15/23 09:02 Dose: 4 mg Documented By: EMMIE Quetiapine Fumarate (Quetiapine Fumarate 50 Mg Tablet) 50 mg PO TID [facility] Last Admin: 11/19/23 07:51 Dose: 50 mg Documented By: VANESSA Sodium Chloride (0.9 % Sodium Chloride Flush 3 Ml Syringe) 3 ml IVFLUSH QSHIFT [facility] Last Admin: 11/19/23 08:51 Dose: Not Given Documented By: VANESSA Non-Admin Reason: med already given Sodium Chloride (0.9 % Sodium Chloride Flush 10 Ml Syringe) 5 ml IVFLUSH TID [facility] Last Admin: 11/19/23 07:18 Dose: 5 ml Documented By: VANESSA Labs 11/17/23 14:35 11/18/23 10:27 Labs: Laboratory Results - last 24 hr 11/18/23 11/18/23 11/18/23 11:35 16:16 20:33 POC Glucose 231 H 246 H 271 H 11/19/23 07:12 POC Glucose 283 H Assessment and Plan (1) Osteomyelitis: Status: Acute (2) Acute osteomyelitis of foot: Status: Acute (3) ABBY (acute kidney injury): Status: Acute Plan 53-year-old male with a PMH significant for?HTN, HLD, insulin-dependent type 2 diabetes, diabetic/peripheral neuropathy, hx of osteomyelitis from chronic diabetic foot ulcers s/p right TMA, polysubstance use disorder on methadone, and mood disorder who originally presented to the ED on 10/27/2023 after being discharged from rehab with no place to go. Patient initially placed into physician observation in overflow, though moved back to the ED due to hypotension and worsening bilateral chronic feet wounds. Patient will be admitted to the hospital for osteomyelitis of bilateral feet secondary to chronic diabetic foot ulcers. possible acute Osteomyelitis (OM) of bilateral feet secondary to chronic diabetic foot ulcers -he has been refusing IV insertion, IV Abx, -hold Abx Cefepime and Vancomycin and add PO Doxy and Levaquin and discussed with surgery and ID tomorrow, his best option is likely amputation which he is also refusing seen by vascular, possible surgery early next week. abby/HypOtension--possible due to dec po intake ,htn meds ,Not due sepsis, resolved with IVF . added albumin moniter renal function renal us pending HLD Continue statin HTN--acceptable hold Lisinopril, Norvasc, if needed if we will add norvasc back if needed. Insulin-dependent type 2 diabetes Sliding-scale insulin, Lantus ,slliding scale Diabetic diet Mood disorder Continue quetiapine, alprazolam Polysubstance use disorder Continue methadone Full Code DVT Prophylaxis: Lovenox need for inpt: IV Abx for OM, diabetic wound, expert evaluation for intervention-possible need for surgerical intervention . Quality Stroke Does the patient have a stroke diagnosis?: No VTE Prior VTE?: No VTE Risk Level:: Medical - moderate - high VTE Device Contraindication: Treatment Not Indicated VTE Drug Contraindication: N/A - Med Ordered
[2023-11-19 11:39] LABS: Glucose, Whole Blood 255 mg/dL (60-115)
[2023-11-19] MEDS: Enoxaparin Sodium 40 MG/0.4 ML SYRINGE SUBCUT (12:06)
[2023-11-19] MEDS: Lactated Ringers 1,000 ML 100 ML IVCONT ×2 (14:30→23:03)
[2023-11-19 15:50] VITALS: BP 144/75; PULSE 80; RESP 12; TEMP 36.2; O2SAT 99
[2023-11-19 16:27] LABS: Glucose, Whole Blood 246 mg/dL (60-115)
[2023-11-19 19:57] VITALS: BP 134/70; PULSE 77; RESP 20; TEMP 36.3; O2SAT 97
[2023-11-19 20:11] LABS: Glucose, Whole Blood 281 mg/dL (60-115)
[2023-11-19] MEDS: ALPRAZolam 0.5 MG TABLET 1 MG PO (23:05)
[2023-11-19] MEDS: Atorvastatin Calcium 40 MG TABLET PO (23:06)
[2023-11-19] MEDS: Insulin Glargine,Hum.rec.anlog 100 UNIT/ML 10 ML VIAL 15 UNIT SUBCUT (23:11)
[2023-11-20 03:20] VITALS: BP 144/87; PULSE 73; RESP 16; TEMP 36.4; O2SAT 97
[2023-11-20 07:20] VITALS: BP 133/73; PULSE 73; RESP 18; TEMP 36.1; O2SAT 96
[2023-11-20 07:52] LABS: Glucose, Whole Blood 304 mg/dL (60-115)
[2023-11-20] MEDS: Gabapentin 100 MG CAPSULE PO ×3 (08:44→21:58)
[2023-11-20] MEDS: QUEtiapine Fumarate 50 MG TABLET PO ×3 (08:49→21:58)
[2023-11-20] MEDS: Insulin Lispro 100 UNIT/ML 3 ML VIAL SUBCUT ×6 (08:49→21:59)
[2023-11-20] MEDS: 0.9 % Sodium Chloride Flush 3 ML SYRINGE IVFLUSH ×2 (08:50→15:29)
[2023-11-20] MEDS: 0.9 % Sodium Chloride Flush 10 ML SYRINGE 5 ML IVFLUSH ×2 (08:51→22:04)
[2023-11-20] MEDS: methADONE HCl 20 MG/2 ML ORAL.CONC 195 MG PO (08:52)
[2023-11-20] MEDS: oxyCODONE HCl Immed Release 5 MG TABLET PO (10:21)
[2023-11-20 11:50] LABS: Glucose, Whole Blood 185 mg/dL (60-115)
[2023-11-20] MEDS: LORazepam 1 MG TABLET 2 MG PO (11:54)
--- NOTE | 2023-11-20 13:23 | HO.PM.IMPN ---
Subjective Subjective Date of Service: 11/20/23 Interval History: abby,hypotension Review of Systems po intake improivng Denies any chest pain or shortness of breath or fever or chills Physical Exam Vital Signs: Vital Signs: Last Vital Signs Temp 96.9 F 11/20/23 07:20 Pulse 73 11/20/23 07:20 Resp 18 11/20/23 07:20 BP 133/73 11/20/23 07:20 Pulse Ox 96 11/20/23 07:20 O2 Del Method Room Air 11/20/23 07:20 O2 Flow Rate 2 11/20/23 03:20 FiO2 99 11/05/23 18:24 Oxygen Flow Rate 2 10/28/23 00:15 BMI result Body Mass Index 38.7 General: awake, no distress Resp: CTA bilaterally CVS: S1, S2, RRR GI: +BS, NT, no distention Skin: Warm, dry Neuro: Cranial nerves II-XII grossly intact bilaterally. Motor grossly intact bilaterally Extremities: Left foot chronic midfoot wound on the lateral aspect . Right foot s/p TMA with chronic appearing wound without discharge. Objective Data Active Medications Acetaminophen (Acetaminophen 325 Mg Tablet) 975 mg PO TID [facility] Last Admin: 11/20/23 08:51 Dose: Not Given Documented By: LITO Non-Admin Reason: Patient Refused Acetaminophen (Acetaminophen 325 Mg Tablet) 650 mg PO Q6H PRN PRN Reason: Pain, Mild (Pain Scale 1-3) Alprazolam (Alprazolam 0.5 Mg Tablet) 1 mg PO BEDTIME PRN PRN Reason: insomnia Last Admin: 11/19/23 23:05 Dose: 1 mg Documented By: LILY Atorvastatin Calcium (Atorvastatin Calcium 40 Mg Tablet) 40 mg PO BEDTIME [facility] Last Admin: 11/19/23 23:06 Dose: 40 mg Documented By: LILY Enoxaparin Sodium (Enoxaparin Sodium 40 Mg/0.4 Ml Syringe) 40 mg SUBCUT Q24H [facility] Last Admin: 11/20/23 11:57 Dose: Not Given Documented By: LITO Non-Admin Reason: Patient Refused Gabapentin (Gabapentin 100 Mg Capsule) 100 mg PO TID [facility] Last Admin: 11/20/23 08:44 Dose: 100 mg Documented By: LITO Glucose (Glucose Gel 15 Gm Gel..Gram.) 15 gm PO Q15M PRN; Protocol PRN Reason: per Hypoglycemia Standing Ord. Dextrose (D10) 250 mls @ 750 mls/hr IV Q15M PRN; Protocol PRN Reason: per Hypoglycemia Standing Ord. Meropenem 1 gm/ Sodium (Chloride) 100 mls @ 200 mls/hr IV Q8H [facility] Last Infusion: 11/20/23 10:56 Dose: Infused Documented By: LITO Insulin Glargine (Insulin Glargine,Hum.Rec.Anlog 100 Unit/Ml 10 Ml Vial) 15 unit SUBCUT BEDTIME [facility] Last Admin: 11/19/23 23:11 Dose: 15 unit Documented By: LILY Insulin Human Lispro (Insulin Lispro 100 Unit/Ml 3 Ml Vial) 0 unit SUBCUT QIDACHS [facility]; Protocol Last Admin: 11/20/23 11:54 Dose: 2 unit Documented By: LITO Insulin Human Lispro (Insulin Lispro 100 Unit/Ml 3 Ml Vial) 5 unit SUBCUT TIDAC [facility] Last Admin: 11/20/23 11:55 Dose: 5 unit Documented By: LITO Lorazepam (Lorazepam 1 Mg Tablet) 2 mg PO DAILY [facility] Last Admin: 11/20/23 11:54 Dose: 2 mg Documented By: LITO Melatonin (Melatonin 3 Mg Tablet) 6 mg PO BEDTIME PRN PRN Reason: Insomnia Methadone HCl (Methadone Hcl 20 Mg/2 Ml Oral.Conc) 195 mg PO DAILY [facility] Last Admin: 11/20/23 08:52 Dose: 195 mg Documented By: LITO Ondansetron HCl (Ondansetron Hcl 4 Mg/2 Ml Vial) 4 mg IVPUSH Q8H PRN PRN Reason: Nausea and Vomiting Ondansetron HCl (Ondansetron Odt 4 Mg Tab.Rapdis) 4 mg TRANSLINGU Q8H PRN PRN Reason: Nausea and Vomiting Last Admin: 11/15/23 09:02 Dose: 4 mg Documented By: EMMIE Oxycodone HCl (Oxycodone Hcl Immed Release 5 Mg Tablet) 5 mg PO Q6H PRN PRN Reason: Pain, Severe (Pain Scale 7-10) Last Admin: 11/20/23 10:21 Dose: 5 mg Documented By: LITO Quetiapine Fumarate (Quetiapine Fumarate 50 Mg Tablet) 50 mg PO TID [facility] Last Admin: 11/20/23 08:49 Dose: 50 mg Documented By: LITO Sodium Chloride (0.9 % Sodium Chloride Flush 3 Ml Syringe) 3 ml IVFLUSH QSHIFT [facility] Last Admin: 11/20/23 08:50 Dose: 3 ml Documented By: LITO Sodium Chloride (0.9 % Sodium Chloride Flush 10 Ml Syringe) 5 ml IVFLUSH TID [facility] Last Admin: 11/20/23 08:51 Dose: 5 ml Documented By: LITO Labs 11/17/23 14:35 11/18/23 10:27 Labs: Laboratory Results - last 24 hr 11/19/23 11/19/23 11/20/23 16:24 19:59 07:19 POC Glucose 246 H 281 H 304 H 11/20/23 11:46 POC Glucose 185 H Assessment and Plan (1) Osteomyelitis: Status: Acute (2) Acute osteomyelitis of foot: Status: Acute (3) ABBY (acute kidney injury): Status: Acute Plan 53-year-old male with a PMH significant for?HTN, HLD, insulin-dependent type 2 diabetes, diabetic/peripheral neuropathy, hx of osteomyelitis from chronic diabetic foot ulcers s/p right TMA, polysubstance use disorder on methadone, and mood disorder who originally presented to the ED on 10/27/2023 after being discharged from rehab with no place to go. Patient initially placed into physician observation in overflow, though moved back to the ED due to hypotension and worsening bilateral chronic feet wounds. Patient will be admitted to the hospital for osteomyelitis of bilateral feet secondary to chronic diabetic foot ulcers. possible acute Osteomyelitis (OM) of bilateral feet secondary to chronic diabetic foot ulcers -he has been refusing IV insertion, IV Abx, -hold Abx Cefepime and Vancomycin and add PO Doxy and Levaquin and discussed with surgery and ID -currentlt on meropenem (11/16/23). seen by vascular follow up abby/HypOtension--possible due to dec po intake ,htn meds ,Not due sepsis, resolved with IVF . moniter renal function renal us pending HLD Continue statin HTN--acceptable hold Lisinopril, Norvasc, if needed if we will add norvasc back if needed. Insulin-dependent type 2 diabetes Sliding-scale insulin, Lantus ,slliding scale Diabetic diet Mood disorder Continue quetiapine, alprazolam Polysubstance use disorder Continue methadone Full Code DVT Prophylaxis: Lovenox need for inpt: IV Abx for OM, diabetic wound, expert evaluation for intervention-possible need for surgerical intervention. Quality Stroke Does the patient have a stroke diagnosis?: No VTE Prior VTE?: No VTE Risk Level:: Medical - moderate - high VTE Device Contraindication: Treatment Not Indicated VTE Drug Contraindication: N/A - Med Ordered
[2023-11-20 15:44] VITALS: BP 141/81; PULSE 71; RESP 12; TEMP 36; O2SAT 95
[2023-11-20 16:24] LABS: Glucose, Whole Blood 181 mg/dL (60-115)
[2023-11-20 19:54] LABS: Glucose, Whole Blood 261 mg/dL (60-115)
[2023-11-20 20:00] VITALS: BP 140/74; PULSE 75; RESP 14; TEMP 36.1; O2SAT 98
[2023-11-20] MEDS: Insulin Glargine,Hum.rec.anlog 100 UNIT/ML 10 ML VIAL 15 UNIT SUBCUT (21:58)
[2023-11-20] MEDS: Atorvastatin Calcium 40 MG TABLET PO (21:58)
[2023-11-20] MEDS: ALPRAZolam 0.5 MG TABLET 1 MG PO (23:05)
[2023-11-21] VITALS (14 sets, daily range): BP systolic 111–176; BP diastolic 49–104; PULSE 68–96; RESP 14–21; TEMP 36.1–36.8; O2SAT 91–99
[2023-11-21 07:44] LABS: Glucose, Whole Blood 231 mg/dL (60-115)
[2023-11-21 07:44] LABS: Hematocrit 31.9 % (42.0-52.0); Hemoglobin 10.5 g/dl (14.0-18.0); Mean Corpuscular HGB Conc 32.9 g/dl (31.0-36.0); Mean Corpuscular Hemoglobin 28.2 pg (27.0-33.0); Mean Corpuscular Volume 85.8 fL (80.0-98.0); Platelet Count 172 X10*3/uL (160-400); Red Blood Count 3.72 X10*6/uL (4.60-5.80); Red Cell Distribution Width 15.8 % (11.0-16.0); White Blood Count 5.5 X10*3/uL (4.8-10.8)
[2023-11-21 08:02] LABS: Anion Gap 13 (12-20); Blood Urea Nitrogen 18 mg/dL (9-16); Calcium 9.2 mg/dL (8.4-10.2); Carbon Dioxide 26 mmol/L (22-29); Chloride 102 mmol/L (96-108); Creatinine Clr Calc Pharmacy 143.3; Estimated Glomerular Filt Rate > 60; Glucose Random 240 mg/dL (60-115); Potassium 4.4 mmol/L (3.3-5.1); Sodium 137 mmol/L (135-145)
[2023-11-21] MEDS: QUEtiapine Fumarate 50 MG TABLET PO ×2 (08:34→21:27)
[2023-11-21] MEDS: Acetaminophen 325 MG TABLET 975 MG PO ×2 (08:34→21:27)
[2023-11-21] MEDS: LORazepam 1 MG TABLET 2 MG PO (08:34)
[2023-11-21] MEDS: oxyCODONE HCl Immed Release 5 MG TABLET PO ×2 (08:34→17:44)
[2023-11-21] MEDS: Gabapentin 100 MG CAPSULE PO (08:34)
[2023-11-21] MEDS: methADONE HCl 20 MG/2 ML ORAL.CONC 195 MG PO (08:38)
[2023-11-21] MEDS: 0.9 % Sodium Chloride Flush 3 ML SYRINGE IVFLUSH (08:40)
[2023-11-21] MEDS: 0.9 % Sodium Chloride Flush 10 ML SYRINGE 5 ML IVFLUSH ×2 (08:43→19:56)
--- NOTE | 2023-11-21 10:19 | HO.VASCPN ---
Subjective Subjective Date of Service: 11/21/23 Patient reports: no new complaints and feels better Interval history: Patient seen and examined. He has had an extensive discussion with his family. He would like to move forward with his amputation. Physical Exam Vital Signs: Vital Signs: Last Vital Signs Temp 97.9 F 11/21/23 07:39 Pulse 79 11/21/23 07:39 Resp 18 11/21/23 07:39 BP 139/77 11/21/23 07:39 Pulse Ox 97 11/21/23 07:39 O2 Del Method Nasal Cannula 11/21/23 07:39 O2 Flow Rate 2 11/21/23 07:39 FiO2 99 11/05/23 18:24 Oxygen Flow Rate 2 10/28/23 00:15 BMI result Body Mass Index 38.7 Const: General: cooperative, healthy appearing and comfortable Orientation/consciousness: oriented to person, oriented to place and oriented to time HEENT: Head: Yes normal to inspection Neck: Neck: Yes normal visual inspection Carotids: no bruits Chest: Chest palpation & inspection: normal inspection of the chest Resp: Effort & Inspection: normal respiratory effort and able to speak in complete sentences Auscultation: clear to auscultation bilaterally, no crackles, no rales, no rhonchi and no wheezes Cardio: Rate: regular rate Rhythm: regular rhythm Heart sounds: S1 normal heart sound present and S2 normal heart sound present Bruits: no carotid bruits Peripheral pulses: Peripheral pulses 2+ throughout GI: Inspection: Yes normal to inspection Skin: Other: Nonhealing left heel with foul odor. Wounds: no wounds Hair: normal Neuro: General: oriented to person, oriented to place and oriented to time Cranial nerves: Yes CN's II-XII intact bilaterally and Yes Normal hearing present Cognition (Neuro): normal cognition Motor exam (neuro): 5/5 motor strength present throughout Extrem: Other: venous exam: No significant superficial varicosities or spider telangiectasias, minimal edema General: No clubbing, No cyanosis and No edema Psych: Appearance: grossly normal Mental Status: mental status grossly normal Speech and movement: Normal speech and movement present Progress Note: A&P Assessment and plan (1) Osteomyelitis: Status: Acute Assessment and Plan: In short patient has recurrent nonhealing left heel ulcer. He has had multiple trials of antibiotics. Decided to move forward with a left below-knee amputation. Risks benefits complications were discussed in detail with the patient. He agreed and would like to move forward. Of note we did discuss at extensive length the possibility of poor healing due to his prior fasciotomies of the leg. Time Spent With Patient Time: Total time managing care of this patient today ____ minutes. Procedures Date of Service Date of Service: 11/21/23 Quality Stroke Does the patient have a stroke diagnosis?: No VTE Prior VTE?: No VTE Risk Level:: Medical - moderate - high VTE Device Contraindication: Treatment Not Indicated VTE Drug Contraindication: N/A - Med Ordered
--- NOTE | 2023-11-21 10:23 | MHC.SHP ---
Pre-Procedural Eval Section A - 24 Hr Update-Section A only Date of Service: 11/21/23 The patient is an INPATIENT: Yes Changes since office visit: Yes Patient answered all questions The patient has been examined within 24 hours of the surgical procedure. The History & Physical has been completed within 30 days and I have reviewed it.: Yes Section B - Complete if H&P > 30 days Chief Complaint: Low BP Allergies: Allergies Allergy/AdvReac Type Severity Reaction Status Date / Time prochlorperazine Allergy Intermediate Hives Verified 10/28/23 00:18 [From Compazine] aspirin [ASA] Allergy Unknown HIVES Verified 10/28/23 00:18 naproxen [From NAPROSYN] Allergy Unknown HIVES Verified 10/28/23 00:18 NSAIDS (Non-Steroidal Allergy Unknown HIVES Verified 10/28/23 00:18 Anti-Inflamma [NSAIDS (NON-STEROIDAL ANTI-INFLAMMA] Penicillins [PENICILLINS] Allergy Unknown HIVES Verified 10/28/23 00:18 Plan I have reviewed the history and physical and performed a pertinent physical examination on my patient. No changes have occurred unless specified. Time Spent With Patient Time: Total time managing care of this patient today ____ minutes.
[2023-11-21 11:27] LABS: Glucose, Whole Blood 241 mg/dL (60-115)
--- NOTE | 2023-11-21 13:55 | P.PNIM_ITS ---
Subjective Subjective Date of Service: 11/21/23 Interval History: No acute complaints this morning agreeable for left BKA, elevated blood sugars in 200s, denies fever, no chills, no acute events overnight. Review of Systems All other system reviewed and negative Physical Exam 2 Vital Signs: Vital Signs: Last Vital Signs Temp 97.9 F 11/21/23 07:39 Pulse 79 11/21/23 07:39 Resp 18 11/21/23 07:39 BP 139/77 11/21/23 07:39 Pulse Ox 97 11/21/23 07:39 O2 Del Method Nasal Cannula 11/21/23 07:39 O2 Flow Rate 2 11/21/23 07:39 FiO2 99 11/05/23 18:24 Oxygen Flow Rate 2 10/28/23 00:15 BMI result Body Mass Index 38.7 Const: Other: General: awake, alert, no distress Neck no JVD Resp: Clear to auscultation, no wheeze, no crackles CVS: S1, S2, RRR GI: Soft, non tender, bowel sounds audible Skin: Warm, dry Neuro: Awake alert x3, speech clear, Motor grossly intact bilaterally Extremities: Left foot chronic midfoot wound on the lateral aspect . Right foot s/p TMA with chronic appearing wound without discharge. Objective Data Active Medications Acetaminophen (Acetaminophen 325 Mg Tablet) 975 mg PO TID [facility] Last Admin: 11/21/23 08:34 Dose: 975 mg Documented By: CATHERINE Acetaminophen (Acetaminophen 325 Mg Tablet) 650 mg PO Q6H PRN PRN Reason: Pain, Mild (Pain Scale 1-3) Alprazolam (Alprazolam 0.5 Mg Tablet) 1 mg PO BEDTIME PRN PRN Reason: insomnia Last Admin: 11/20/23 23:05 Dose: 1 mg Documented By: LILY Atorvastatin Calcium (Atorvastatin Calcium 40 Mg Tablet) 40 mg PO BEDTIME [facility] Last Admin: 11/20/23 21:58 Dose: 40 mg Documented By: LLIY Enoxaparin Sodium (Enoxaparin Sodium 40 Mg/0.4 Ml Syringe) 40 mg SUBCUT Q24H [facility] Last Admin: 11/21/23 13:03 Dose: Not Given Documented By: CATHERINE Non-Admin Reason: surgery Gabapentin (Gabapentin 100 Mg Capsule) 100 mg PO TID [facility] Last Admin: 11/21/23 08:34 Dose: 100 mg Documented By: CATHERINE Glucose (Glucose Gel 15 Gm Gel..Gram.) 15 gm PO Q15M PRN; Protocol PRN Reason: per Hypoglycemia Standing Ord. Dextrose (D10) 250 mls @ 750 mls/hr IV Q15M PRN; Protocol PRN Reason: per Hypoglycemia Standing Ord. Meropenem 1 gm/ Sodium (Chloride) 100 mls @ 200 mls/hr IV Q8H [facility] Last Infusion: 11/21/23 11:59 Dose: Infused Documented By: CATHERINE Insulin Glargine (Insulin Glargine,Hum.Rec.Anlog 100 Unit/Ml 10 Ml Vial) 15 unit SUBCUT BEDTIME [facility] Last Admin: 11/20/23 21:58 Dose: 15 unit Documented By: LILY Insulin Human Lispro (Insulin Lispro 100 Unit/Ml 3 Ml Vial) 0 unit SUBCUT QIDACHS [facility]; Protocol Last Admin: 11/21/23 13:04 Dose: Not Given Documented By: CATHERINE Non-Admin Reason: NPO Insulin Human Lispro (Insulin Lispro 100 Unit/Ml 3 Ml Vial) 5 unit SUBCUT TIDAC [facility] Last Admin: 11/21/23 13:04 Dose: Not Given Documented By: CATHERINE Non-Admin Reason: NPO Lorazepam (Lorazepam 1 Mg Tablet) 2 mg PO DAILY [facility] Last Admin: 11/21/23 08:34 Dose: 2 mg Documented By: CATHERINE Melatonin (Melatonin 3 Mg Tablet) 6 mg PO BEDTIME PRN PRN Reason: Insomnia Methadone HCl (Methadone Hcl 20 Mg/2 Ml Oral.Conc) 195 mg PO DAILY [facility] Last Admin: 11/21/23 08:38 Dose: 195 mg Documented By: CATHERINE Ondansetron HCl (Ondansetron Hcl 4 Mg/2 Ml Vial) 4 mg IVPUSH Q8H PRN PRN Reason: Nausea and Vomiting Ondansetron HCl (Ondansetron Odt 4 Mg Tab.Rapdis) 4 mg TRANSLINGU Q8H PRN PRN Reason: Nausea and Vomiting Last Admin: 11/15/23 09:02 Dose: 4 mg Documented By: EMMIE Oxycodone HCl (Oxycodone Hcl Immed Release 5 Mg Tablet) 5 mg PO Q6H PRN PRN Reason: Pain, Severe (Pain Scale 7-10) Last Admin: 11/21/23 08:34 Dose: 5 mg Documented By: CATHERINE Quetiapine Fumarate (Quetiapine Fumarate 50 Mg Tablet) 50 mg PO TID [facility] Last Admin: 11/21/23 08:34 Dose: 50 mg Documented By: CATHERINE Sodium Chloride (0.9 % Sodium Chloride Flush 3 Ml Syringe) 3 ml IVFLUSH QSHIFT [facility] Last Admin: 11/21/23 08:40 Dose: 3 ml Documented By: CATHERINE Sodium Chloride (0.9 % Sodium Chloride Flush 10 Ml Syringe) 5 ml IVFLUSH TID [facility] Last Admin: 11/21/23 08:43 Dose: 5 ml Documented By: CATHERINE Labs 11/21/23 07:12 11/21/23 07:12 Labs: Laboratory Results - last 24 hr 11/20/23 11/20/23 11/21/23 16:10 19:31 07:12 MCV 85.8 MCH 28.2 MCHC 32.9 RDW 15.8 Plt Count 172 MPV 10.0 Absolute Nucleated RBC 0.000 Nucleated RBC % (auto) 0.0 Anion Gap 13 Estim Creat Clear Calc 143.3 Estimated GFR > 60 POC Glucose 181 H 261 H Random Glucose 240 H Calcium 9.2 D 11/21/23 11/21/23 07:38 11:23 MCV MCH MCHC RDW Plt Count MPV Absolute Nucleated RBC Nucleated RBC % (auto) Anion Gap Estim Creat Clear Calc Estimated GFR POC Glucose 231 H 241 H Random Glucose Calcium Assessment and Plan (1) Osteomyelitis: Status: Acute (2) Acute osteomyelitis of foot: Status: Acute (3) ABBY (acute kidney injury): Status: Acute Plan 53-year-old male with a PMH significant for?HTN, HLD, insulin-dependent type 2 diabetes, diabetic/peripheral neuropathy, hx of osteomyelitis from chronic diabetic foot ulcers s/p right TMA, polysubstance use disorder on methadone, and mood disorder who originally presented to the ED on 10/27/2023 after being discharged from rehab with no place to go. Patient initially placed into physician observation in overflow, though moved back to the ED due to hypotension and worsening bilateral chronic feet wounds. Patient will be admitted to the hospital for osteomyelitis of bilateral feet secondary to chronic diabetic foot ulcers. Acute Osteomyelitis (OM) of left 4th and 5th metatarsal Continue IV meropenem started 11/16/2023 PICC line right basophilic vein in place Patient agreeable for left BKA called Dr. Goldman patient is scheduled for procedure this afternoon ABBY/hypotension due to decreased by mouth intake and antihypertensive Resolved with IV fluids Renal ultrasound negative , follow renal function HLD Continue statin HTN--acceptable control continue to hold lisinopril and Norvasc Insulin-dependent type 2 diabetes Elevated blood sugars in 200, will adjust Sliding-scale insulin, and increase Lantus to 25 units, home dose 42 units , continue Diabetic diet Will increase dose of Neurontin to 300 mg t.i.d.(home dose 900 mg t.i.d. initially reduced due to ABBY) Mood disorder Continue quetiapine, and Ativan 2mg,(was on Xanax 2 mg at a.m. and 1 mg at bedtime as needed) Polysubstance use disorder Continue methadone Full Code dose DVT Prophylaxis: Lovenox need for inpt: IV Abx for OM, for left BKA scheduled for today and close surgery follow up. Quality Stroke Does the patient have a stroke diagnosis?: No VTE Prior VTE?: No VTE Risk Level:: Medical - moderate - high VTE Device Contraindication: Treatment Not Indicated VTE Drug Contraindication: N/A - Med Ordered
[2023-11-21 14:46] LABS: Glucose, Whole Blood 185 mg/dL (60-115)
--- NOTE | 2023-11-21 15:22 | P.CONAN_ITS ---
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 Do you presently have visiting nurse or other home services: No Unable to assess alcohol history related to: Unknown and Refusing to respond Alcohol intake: current Alcohol intake frequency: a few times a month Alcohol type: hard liquor Comment: pt refused bed alarm Patient Tobacco Use Status: Never used Tobacco e-Cigarette/Vaping Use: Never Used Second Hand Smoke Exposure: No Substance Use Type: Crack/Cocaine Advance Directives Date on File: 05/19/22 service: No Current occupational status: disabled Meds Allergies Allergy/AdvReac Type Severity Reaction Status Date / Time prochlorperazine Allergy Intermediate Hives Verified 10/28/23 00:18 [From Compazine] aspirin [ASA] Allergy Unknown HIVES Verified 10/28/23 00:18 naproxen [From NAPROSYN] Allergy Unknown HIVES Verified 10/28/23 00:18 NSAIDS (Non-Steroidal Allergy Unknown HIVES Verified 10/28/23 00:18 Anti-Inflamma [NSAIDS (NON-STEROIDAL ANTI-INFLAMMA] Penicillins [PENICILLINS] Allergy Unknown HIVES Verified 10/28/23 00:18 Active Medications: Current Medications Acetaminophen (Acetaminophen 325 Mg Tablet) 975 mg PO TID [facility] Last Admin: 11/21/23 15:10 Dose: Not Given Acetaminophen (Acetaminophen 325 Mg Tablet) 650 mg PO Q6H PRN PRN Reason: Pain, Mild (Pain Scale 1-3) Alprazolam (Alprazolam 0.5 Mg Tablet) 1 mg PO BEDTIME PRN PRN Reason: insomnia Last Admin: 11/20/23 23:05 Dose: 1 mg Atorvastatin Calcium (Atorvastatin Calcium 40 Mg Tablet) 40 mg PO BEDTIME [facility] Last Admin: 11/20/23 21:58 Dose: 40 mg Enoxaparin Sodium (Enoxaparin Sodium 40 Mg/0.4 Ml Syringe) 40 mg SUBCUT Q24H [facility] Last Admin: 11/21/23 13:03 Dose: Not Given Gabapentin (Gabapentin 300 Mg Capsule) 300 mg PO TID [facility] Last Admin: 11/21/23 15:10 Dose: Not Given Glucose (Glucose Gel 15 Gm Gel..Gram.) 15 gm PO Q15M PRN; Protocol PRN Reason: per Hypoglycemia Standing Ord. Dextrose (D10) 250 mls @ 750 mls/hr IV Q15M PRN; Protocol PRN Reason: per Hypoglycemia Standing Ord. Meropenem 1 gm/ Sodium (Chloride) 100 mls @ 200 mls/hr IV Q8H [facility] Last Infusion: 11/21/23 11:59 Dose: Infused Insulin Glargine (Insulin Glargine,Hum.Rec.Anlog 100 Unit/Ml 10 Ml Vial) 25 unit SUBCUT BEDTIME [facility] Insulin Human Lispro (Insulin Lispro 100 Unit/Ml 3 Ml Vial) 0 unit SUBCUT QIDACHS [facility]; Protocol Last Admin: 11/21/23 13:04 Dose: Not Given Insulin Human Lispro (Insulin Lispro 100 Unit/Ml 3 Ml Vial) 5 unit SUBCUT TIDAC [facility] Last Admin: 11/21/23 13:04 Dose: Not Given Lorazepam (Lorazepam 1 Mg Tablet) 2 mg PO DAILY [facility] Last Admin: 11/21/23 08:34 Dose: 2 mg Melatonin (Melatonin 3 Mg Tablet) 6 mg PO BEDTIME PRN PRN Reason: Insomnia Methadone HCl (Methadone Hcl 20 Mg/2 Ml Oral.Conc) 195 mg PO DAILY [facility] Last Admin: 11/21/23 08:38 Dose: 195 mg Ondansetron HCl (Ondansetron Hcl 4 Mg/2 Ml Vial) 4 mg IVPUSH Q8H PRN PRN Reason: Nausea and Vomiting Ondansetron HCl (Ondansetron Odt 4 Mg Tab.Rapdis) 4 mg TRANSLINGU Q8H PRN PRN Reason: Nausea and Vomiting Last Admin: 11/15/23 09:02 Dose: 4 mg Oxycodone HCl (Oxycodone Hcl Immed Release 5 Mg Tablet) 5 mg PO Q6H PRN PRN Reason: Pain, Severe (Pain Scale 7-10) Last Admin: 11/21/23 08:34 Dose: 5 mg Quetiapine Fumarate (Quetiapine Fumarate 50 Mg Tablet) 50 mg PO TID [facility] Last Admin: 11/21/23 15:10 Dose: Not Given Sodium Chloride (0.9 % Sodium Chloride Flush 3 Ml Syringe) 3 ml IVFLUSH QSHIFT [facility] Last Admin: 11/21/23 08:40 Dose: 3 ml Sodium Chloride (0.9 % Sodium Chloride Flush 10 Ml Syringe) 5 ml IVFLUSH TID [facility] Last Admin: 11/21/23 15:09 Dose: Not Given Home Medications ?Medication ?Instructions ?Recorded ?Confirmed ?Last Taken ?Type methadone 10 mg/mL oral 195 mg PO DAILY 04/25/22 10/29/23 08/04/22 History concentrate (Methadone Intensol) acetaminophen 325 mg tablet 975 mg PO TID 10/29/23 10/29/23 Unknown History alprazolam 1 mg tablet 1 mg PO BEDTIME PRN Anxiety 10/29/23 10/29/23 Unknown History alprazolam 1 mg tablet 2 mg PO QAM 10/29/23 10/29/23 Unknown History gabapentin 300 mg capsule 900 mg PO TID 10/29/23 10/29/23 Unknown History ibuprofen 800 mg tablet 800 mg PO Q8H PRN Pain (Scale 10/29/23 10/29/23 Unknown History Score 4-6) insulin glargine 100 unit/mL (3 42 unit subcut QPM 10/29/23 10/29/23 Unknown History mL) subcutaneous pen (Lantus Solostar U-100 Insulin) insulin lispro 100 unit/mL See Rx Instructions .Route .COMPLEX 10/29/23 10/29/23 Unknown History subcutaneous pen insulin lispro 100 unit/mL 20 unit subcut TIDAC 10/29/23 10/29/23 Unknown History subcutaneous solution quetiapine 50 mg tablet (Seroquel) 50 mg PO TID 10/29/23 10/29/23 Unknown History Exam Height,Weight and Vital Signs: Height 6 ft Weight 129.6 kg Last Vital Signs Temp 97.9 F 11/21/23 14:54 Pulse 73 11/21/23 14:54 Resp 18 11/21/23 14:54 BP 165/94 H 11/21/23 14:54 Pulse Ox 95 11/21/23 14:54 O2 Del Method Nasal Cannula 11/21/23 14:54 O2 Flow Rate 2 11/21/23 14:54 FiO2 99 11/05/23 18:24 Oxygen Flow Rate 2 10/28/23 00:15 Pertinent Lab Results Pertinent Lab Results: Laboratory Tests 10/28/23 10/28/23 10/28/23 01:23 01:44 15:19 WBC 9.1 RBC 4.78 Hgb 13.6 L D Hct 41.1 L D MCV 86.0 MCH 28.5 MCHC 33.1 RDW 15.3 Plt Count 195 MPV 9.0 L Immature Gran % (Auto) 0.3 Neut % (Auto) 79.7 H Lymph % (Auto) 12.1 L Graham % (Auto) 7.5 Eos % (Auto) 0.0 Baso % (Auto) 0.4 Lymph # (Auto) 1.1 L Graham # (Auto) 0.7 Eos # (Auto) 0.0 Baso # (Auto) 0.0 Abs Immat Gran (auto) 0.03 Absolute Neuts (auto) 7.2 Absolute Nucleated RBC 0.000 Nucleated RBC % (auto) 0.0 ESR Sodium 140 Potassium 4.6 Chloride 104 Carbon Dioxide 20 L Anion Gap 21 H BUN 20 H Creatinine 1.34 Estim Creat Clear Calc 69.1 Estimated GFR 56 POC Glucose 291 H 180 H Random Glucose 311 H Lactic Acid Calcium 10.0 Total Bilirubin 0.6 AST 34 ALT 27 Alkaline Phosphatase 161 H C-Reactive Protein Total Protein 8.7 H Albumin 4.4 Random Vancomycin Urine Opiates Screen Ur Buprenorphine Scrn Ur Oxycodone Screen Urine Methadone Screen Urine Fentanyl Screen Ur Barbiturates Screen Ur Phencyclidine Scrn Ur Amphetamines Screen U Benzodiazepines Scrn Urine Cocaine Screen U Marijuana (THC) Screen 10/28/23 10/29/23 10/29/23 19:40 07:44 16:09 WBC RBC Hgb Hct MCV MCH MCHC RDW Plt Count MPV Immature Gran % (Auto) Neut % (Auto) Lymph % (Auto) Graham % (Auto) Eos % (Auto) Baso % (Auto) Lymph # (Auto) Graham # (Auto) Eos # (Auto) Baso # (Auto) Abs Immat Gran (auto) Absolute Neuts (auto) Absolute Nucleated RBC Nucleated RBC % (auto) ESR Sodium Potassium Chloride Carbon Dioxide Anion Gap BUN Creatinine Estim Creat Clear Calc Estimated GFR POC Glucose 251 H 427 H* Random Glucose Lactic Acid Calcium Total Bilirubin AST ALT Alkaline Phosphatase C-Reactive Protein Total Protein Albumin Random Vancomycin Urine Opiates Screen Not Detected Ur Buprenorphine Scrn Not Detected Ur Oxycodone Screen Not Detected Urine Methadone Screen Positive H Urine Fentanyl Screen POSITIVE H Ur Barbiturates Screen Not Detected Ur Phencyclidine Scrn Not Detected Ur Amphetamines Screen Not Detected U Benzodiazepines Scrn POSITIVE H Urine Cocaine Screen POSITIVE H U Marijuana (THC) Screen Not Detected 10/29/23 10/29/23 10/30/23 22:25 23:01 00:52 WBC RBC Hgb Hct MCV MCH MCHC RDW Plt Count MPV Immature Gran % (Auto) Neut % (Auto) Lymph % (Auto) Graham % (Auto) Eos % (Auto) Baso % (Auto) Lymph # (Auto) Graham # (Auto) Eos # (Auto) Baso # (Auto) Abs Immat Gran (auto) Absolute Neuts (auto) Absolute Nucleated RBC Nucleated RBC % (auto) ESR Sodium Potassium Chloride Carbon Dioxide Anion Gap BUN Creatinine Estim Creat Clear Calc Estimated GFR POC Glucose 70 128 H 216 H Random Glucose Lactic Acid Calcium Total Bilirubin AST ALT Alkaline Phosphatase C-Reactive Protein Total Protein Albumin Random Vancomycin Urine Opiates Screen Ur Buprenorphine Scrn Ur Oxycodone Screen Urine Methadone Screen Urine Fentanyl Screen Ur Barbiturates Screen Ur Phencyclidine Scrn Ur Amphetamines Screen U Benzodiazepines Scrn Urine Cocaine Screen U Marijuana (THC) Screen 10/30/23 10/30/23 10/30/23 06:36 11:40 16:43 WBC RBC Hgb Hct MCV MCH MCHC RDW Plt Count MPV Immature Gran % (Auto) Neut % (Auto) Lymph % (Auto) Graham % (Auto) Eos % (Auto) Baso % (Auto) Lymph # (Auto) Graham # (Auto) Eos # (Auto) Baso # (Auto) Abs Immat Gran (auto) Absolute Neuts (auto) Absolute Nucleated RBC Nucleated RBC % (auto) ESR Sodium Potassium Chloride Carbon Dioxide Anion Gap BUN Creatinine Estim Creat Clear Calc Estimated GFR POC Glucose 258 H 194 H 77 Random Glucose Lactic Acid Calcium Total Bilirubin AST ALT Alkaline Phosphatase C-Reactive Protein Total Protein Albumin Random Vancomycin Urine Opiates Screen Ur Buprenorphine Scrn Ur Oxycodone Screen Urine Methadone Screen Urine Fentanyl Screen Ur Barbiturates Screen Ur Phencyclidine Scrn Ur Amphetamines Screen U Benzodiazepines Scrn Urine Cocaine Screen U Marijuana (THC) Screen 10/30/23 10/31/23 10/31/23 20:24 07:19 11:38 WBC RBC Hgb Hct MCV MCH MCHC RDW Plt Count MPV Immature Gran % (Auto) Neut % (Auto) Lymph % (Auto) Graham % (Auto) Eos % (Auto) Baso % (Auto) Lymph # (Auto) Graham # (Auto) Eos # (Auto) Baso # (Auto) Abs Immat Gran (auto) Absolute Neuts (auto) Absolute Nucleated RBC Nucleated RBC % (auto) ESR Sodium Potassium Chloride Carbon Dioxide Anion Gap BUN Creatinine Estim Creat Clear Calc Estimated GFR POC Glucose 115 277 H 167 H Random Glucose Lactic Acid Calcium Total Bilirubin AST ALT Alkaline Phosphatase C-Reactive Protein Total Protein Albumin Random Vancomycin Urine Opiates Screen Ur Buprenorphine Scrn Ur Oxycodone Screen Urine Methadone Screen Urine Fentanyl Screen Ur Barbiturates Screen Ur Phencyclidine Scrn Ur Amphetamines Screen U Benzodiazepines Scrn Urine Cocaine Screen U Marijuana (THC) Screen 10/31/23 10/31/23 11/01/23 16:15 20:49 07:49 WBC RBC Hgb Hct MCV MCH MCHC RDW Plt Count MPV Immature Gran % (Auto) Neut % (Auto) Lymph % (Auto) Graham % (Auto) Eos % (Auto) Baso % (Auto) Lymph # (Auto) Graham # (Auto) Eos # (Auto) Baso # (Auto) Abs Immat Gran (auto) Absolute Neuts (auto) Absolute Nucleated RBC Nucleated RBC % (auto) ESR Sodium Potassium Chloride Carbon Dioxide Anion Gap BUN Creatinine Estim Creat Clear Calc Estimated GFR POC Glucose 135 H 321 H 204 H Random Glucose Lactic Acid Calcium Total Bilirubin AST ALT Alkaline Phosphatase C-Reactive Protein Total Protein Albumin Random Vancomycin Urine Opiates Screen Ur Buprenorphine Scrn Ur Oxycodone Screen Urine Methadone Screen Urine Fentanyl Screen Ur Barbiturates Screen Ur Phencyclidine Scrn Ur Amphetamines Screen U Benzodiazepines Scrn Urine Cocaine Screen U Marijuana (THC) Screen 11/01/23 11/01/23 11/01/23 11:44 13:30 16:57 WBC RBC Hgb Hct MCV MCH MCHC RDW Plt Count MPV Immature Gran % (Auto) Neut % (Auto) Lymph % (Auto) Graham % (Auto) Eos % (Auto) Baso % (Auto) Lymph # (Auto) Graham # (Auto) Eos # (Auto) Baso # (Auto) Abs Immat Gran (auto) Absolute Neuts (auto) Absolute Nucleated RBC Nucleated RBC % (auto) ESR Sodium Potassium Chloride Carbon Dioxide Anion Gap BUN Creatinine Estim Creat Clear Calc Estimated GFR POC Glucose 362 H* 321 H 113 Random Glucose Lactic Acid Calcium Total Bilirubin AST ALT Alkaline Phosphatase C-Reactive Protein Total Protein Albumin Random Vancomycin Urine Opiates Screen Ur Buprenorphine Scrn Ur Oxycodone Screen Urine Methadone Screen Urine Fentanyl Screen Ur Barbiturates Screen Ur Phencyclidine Scrn Ur Amphetamines Screen U Benzodiazepines Scrn Urine Cocaine Screen U Marijuana (THC) Screen 11/01/23 11/02/23 11/02/23 20:27 07:19 13:09 WBC RBC Hgb Hct MCV MCH MCHC RDW Plt Count MPV Immature Gran % (Auto) Neut % (Auto) Lymph % (Auto) Graham % (Auto) Eos % (Auto) Baso % (Auto) Lymph # (Auto) Graham # (Auto) Eos # (Auto) Baso # (Auto) Abs Immat Gran (auto) Absolute Neuts (auto) Absolute Nucleated RBC Nucleated RBC % (auto) ESR Sodium Potassium Chloride Carbon Dioxide Anion Gap BUN Creatinine Estim Creat Clear Calc Estimated GFR POC Glucose 84 316 H 98 Random Glucose Lactic Acid Calcium Total Bilirubin AST ALT Alkaline Phosphatase C-Reactive Protein Total Protein Albumin Random Vancomycin Urine Opiates Screen Ur Buprenorphine Scrn Ur Oxycodone Screen Urine Methadone Screen Urine Fentanyl Screen Ur Barbiturates Screen Ur Phencyclidine Scrn Ur Amphetamines Screen U Benzodiazepines Scrn Urine Cocaine Screen U Marijuana (THC) Screen 11/02/23 11/02/23 11/03/23 17:50 20:31 07:14 WBC RBC Hgb Hct MCV MCH MCHC RDW Plt Count MPV Immature Gran % (Auto) Neut % (Auto) Lymph % (Auto) Graham % (Auto) Eos % (Auto) Baso % (Auto) Lymph # (Auto) Graham # (Auto) Eos # (Auto) Baso # (Auto) Abs Immat Gran (auto) Absolute Neuts (auto) Absolute Nucleated RBC Nucleated RBC % (auto) ESR Sodium Potassium Chloride Carbon Dioxide Anion Gap BUN Creatinine Estim Creat Clear Calc Estimated GFR POC Glucose 141 H 126 H 254 H Random Glucose Lactic Acid Calcium Total Bilirubin AST ALT Alkaline Phosphatase C-Reactive Protein Total Protein Albumin Random Vancomycin Urine Opiates Screen Ur Buprenorphine Scrn Ur Oxycodone Screen Urine Methadone Screen Urine Fentanyl Screen Ur Barbiturates Screen Ur Phencyclidine Scrn Ur Amphetamines Screen U Benzodiazepines Scrn Urine Cocaine Screen U Marijuana (THC) Screen 11/03/23 11/03/23 11/03/23 12:04 18:01 22:23 WBC RBC Hgb Hct MCV MCH MCHC RDW Plt Count MPV Immature Gran % (Auto) Neut % (Auto) Lymph % (Auto) Graham % (Auto) Eos % (Auto) Baso % (Auto) Lymph # (Auto) Graham # (Auto) Eos # (Auto) Baso # (Auto) Abs Immat Gran (auto) Absolute Neuts (auto) Absolute Nucleated RBC Nucleated RBC % (auto) ESR Sodium Potassium Chloride Carbon Dioxide Anion Gap BUN Creatinine Estim Creat Clear Calc Estimated GFR POC Glucose 243 H 194 H 303 H Random Glucose Lactic Acid Calcium Total Bilirubin AST ALT Alkaline Phosphatase C-Reactive Protein Total Protein Albumin Random Vancomycin Urine Opiates Screen Ur Buprenorphine Scrn Ur Oxycodone Screen Urine Methadone Screen Urine Fentanyl Screen Ur Barbiturates Screen Ur Phencyclidine Scrn Ur Amphetamines Screen U Benzodiazepines Scrn Urine Cocaine Screen U Marijuana (THC) Screen 11/04/23 11/04/23 11/04/23 07:07 13:08 17:38 WBC RBC Hgb Hct MCV MCH MCHC RDW Plt Count MPV Immature Gran % (Auto) Neut % (Auto) Lymph % (Auto) Graham % (Auto) Eos % (Auto) Baso % (Auto) Lymph # (Auto) Graham # (Auto) Eos # (Auto) Baso # (Auto) Abs Immat Gran (auto) Absolute Neuts (auto) Absolute Nucleated RBC Nucleated RBC % (auto) ESR Sodium Potassium Chloride Carbon Dioxide Anion Gap BUN Creatinine Estim Creat Clear Calc Estimated GFR POC Glucose 166 H 157 H 205 H Random Glucose Lactic Acid Calcium Total Bilirubin AST ALT Alkaline Phosphatase C-Reactive Protein Total Protein Albumin Random Vancomycin Urine Opiates Screen Ur Buprenorphine Scrn Ur Oxycodone Screen Urine Methadone Screen Urine Fentanyl Screen Ur Barbiturates Screen Ur Phencyclidine Scrn Ur Amphetamines Screen U Benzodiazepines Scrn Urine Cocaine Screen U Marijuana (THC) Screen 11/04/23 11/04/23 11/05/23 22:06 23:52 07:16 WBC RBC Hgb Hct MCV MCH MCHC RDW Plt Count MPV Immature Gran % (Auto) Neut % (Auto) Lymph % (Auto) Graham % (Auto) Eos % (Auto) Baso % (Auto) Lymph # (Auto) Graham # (Auto) Eos # (Auto) Baso # (Auto) Abs Immat Gran (auto) Absolute Neuts (auto) Absolute Nucleated RBC Nucleated RBC % (auto) ESR Sodium Potassium Chloride Carbon Dioxide Anion Gap BUN Creatinine Estim Creat Clear Calc Estimated GFR POC Glucose 219 H 192 H 149 H Random Glucose Lactic Acid Calcium Total Bilirubin AST ALT Alkaline Phosphatase C-Reactive Protein Total Protein Albumin Random Vancomycin Urine Opiates Screen Ur Buprenorphine Scrn Ur Oxycodone Screen Urine Methadone Screen Urine Fentanyl Screen Ur Barbiturates Screen Ur Phencyclidine Scrn Ur Amphetamines Screen U Benzodiazepines Scrn Urine Cocaine Screen U Marijuana (THC) Screen 11/05/23 11/05/23 11/05/23 11:15 15:13 21:50 WBC RBC Hgb Hct MCV MCH MCHC RDW Plt Count MPV Immature Gran % (Auto) Neut % (Auto) Lymph % (Auto) Graham % (Auto) Eos % (Auto) Baso % (Auto) Lymph # (Auto) Graham # (Auto) Eos # (Auto) Baso # (Auto) Abs Immat Gran (auto) Absolute Neuts (auto) Absolute Nucleated RBC Nucleated RBC % (auto) ESR Sodium Potassium Chloride Carbon Dioxide Anion Gap BUN Creatinine Estim Creat Clear Calc Estimated GFR POC Glucose 256 H 122 H 291 H Random Glucose Lactic Acid Calcium Total Bilirubin AST ALT Alkaline Phosphatase C-Reactive Protein Total Protein Albumin Random Vancomycin Urine Opiates Screen Ur Buprenorphine Scrn Ur Oxycodone Screen Urine Methadone Screen Urine Fentanyl Screen Ur Barbiturates Screen Ur Phencyclidine Scrn Ur Amphetamines Screen U Benzodiazepines Scrn Urine Cocaine Screen U Marijuana (THC) Screen 11/06/23 11/06/23 11/06/23 08:54 12:10 17:08 WBC RBC Hgb Hct MCV MCH MCHC RDW Plt Count MPV Immature Gran % (Auto) Neut % (Auto) Lymph % (Auto) Graham % (Auto) Eos % (Auto) Baso % (Auto) Lymph # (Auto) Graham # (Auto) Eos # (Auto) Baso # (Auto) Abs Immat Gran (auto) Absolute Neuts (auto) Absolute Nucleated RBC Nucleated RBC % (auto) ESR Sodium Potassium Chloride Carbon Dioxide Anion Gap BUN Creatinine Estim Creat Clear Calc Estimated GFR POC Glucose 190 H 311 H 272 H Random Glucose Lactic Acid Calcium Total Bilirubin AST ALT Alkaline Phosphatase C-Reactive Protein Total Protein Albumin Random Vancomycin Urine Opiates Screen Ur Buprenorphine Scrn Ur Oxycodone Screen Urine Methadone Screen Urine Fentanyl Screen Ur Barbiturates Screen Ur Phencyclidine Scrn Ur Amphetamines Screen U Benzodiazepines Scrn Urine Cocaine Screen U Marijuana (THC) Screen 11/06/23 11/07/23 11/07/23 20:56 07:10 10:56 WBC RBC Hgb Hct MCV MCH MCHC RDW Plt Count MPV Immature Gran % (Auto) Neut % (Auto) Lymph % (Auto) Graham % (Auto) Eos % (Auto) Baso % (Auto) Lymph # (Auto) Graham # (Auto) Eos # (Auto) Baso # (Auto) Abs Immat Gran (auto) Absolute Neuts (auto) Absolute Nucleated RBC Nucleated RBC % (auto) ESR Sodium Potassium Chloride Carbon Dioxide Anion Gap BUN Creatinine Estim Creat Clear Calc Estimated GFR POC Glucose 184 H 104 189 H Random Glucose Lactic Acid Calcium Total Bilirubin AST ALT Alkaline Phosphatase C-Reactive Protein Total Protein Albumin Random Vancomycin Urine Opiates Screen Ur Buprenorphine Scrn Ur Oxycodone Screen Urine Methadone Screen Urine Fentanyl Screen Ur Barbiturates Screen Ur Phencyclidine Scrn Ur Amphetamines Screen U Benzodiazepines Scrn Urine Cocaine Screen U Marijuana (THC) Screen 11/07/23 11/07/23 11/07/23 11:52 16:53 20:01 WBC RBC Hgb Hct MCV MCH MCHC RDW Plt Count MPV Immature Gran % (Auto) Neut % (Auto) Lymph % (Auto) Graham % (Auto) Eos % (Auto) Baso % (Auto) Lymph # (Auto) Graham # (Auto) Eos # (Auto) Baso # (Auto) Abs Immat Gran (auto) Absolute Neuts (auto) Absolute Nucleated RBC Nucleated RBC % (auto) ESR Sodium Potassium Chloride Carbon Dioxide Anion Gap BUN Creatinine Estim Creat Clear Calc Estimated GFR POC Glucose 203 H 219 H 308 H Random Glucose Lactic Acid Calcium Total Bilirubin AST ALT Alkaline Phosphatase C-Reactive Protein Total Protein Albumin Random Vancomycin Urine Opiates Screen Ur Buprenorphine Scrn Ur Oxycodone Screen Urine Methadone Screen Urine Fentanyl Screen Ur Barbiturates Screen Ur Phencyclidine Scrn Ur Amphetamines Screen U Benzodiazepines Scrn Urine Cocaine Screen U Marijuana (THC) Screen 11/08/23 11/08/23 11/08/23 02:00 07:09 12:07 WBC RBC Hgb Hct MCV MCH MCHC RDW Plt Count MPV Immature Gran % (Auto) Neut % (Auto) Lymph % (Auto) Graham % (Auto) Eos % (Auto) Baso % (Auto) Lymph # (Auto) Graham # (Auto) Eos # (Auto) Baso # (Auto) Abs Immat Gran (auto) Absolute Neuts (auto) Absolute Nucleated RBC Nucleated RBC % (auto) ESR Sodium Potassium Chloride Carbon Dioxide Anion Gap BUN Creatinine Estim Creat Clear Calc Estimated GFR POC Glucose 218 H 300 H 217 H Random Glucose Lactic Acid Calcium Total Bilirubin AST ALT Alkaline Phosphatase C-Reactive Protein Total Protein Albumin Random Vancomycin Urine Opiates Screen Ur Buprenorphine Scrn Ur Oxycodone Screen Urine Methadone Screen Urine Fentanyl Screen Ur Barbiturates Screen Ur Phencyclidine Scrn Ur Amphetamines Screen U Benzodiazepines Scrn Urine Cocaine Screen U Marijuana (THC) Screen 11/08/23 11/08/23 11/09/23 16:42 20:00 07:55 WBC RBC Hgb Hct MCV MCH MCHC RDW Plt Count MPV Immature Gran % (Auto) Neut % (Auto) Lymph % (Auto) Graham % (Auto) Eos % (Auto) Baso % (Auto) Lymph # (Auto) Graham # (Auto) Eos # (Auto) Baso # (Auto) Abs Immat Gran (auto) Absolute Neuts (auto) Absolute Nucleated RBC Nucleated RBC % (auto) ESR Sodium Potassium Chloride Carbon Dioxide Anion Gap BUN Creatinine Estim Creat Clear Calc Estimated GFR POC Glucose 165 H 222 H 170 H Random Glucose Lactic Acid Calcium Total Bilirubin AST ALT Alkaline Phosphatase C-Reactive Protein Total Protein Albumin Random Vancomycin Urine Opiates Screen Ur Buprenorphine Scrn Ur Oxycodone Screen Urine Methadone Screen Urine Fentanyl Screen Ur Barbiturates Screen Ur Phencyclidine Scrn Ur Amphetamines Screen U Benzodiazepines Scrn Urine Cocaine Screen U Marijuana (THC) Screen 11/09/23 11/09/23 11/09/23 11:36 14:47 15:07 WBC 6.8 RBC 3.59 L D Hgb 10.2 L D Hct 32.1 L D MCV 89.4 MCH 28.4 MCHC 31.8 RDW 16.1 H Plt Count 122 L D MPV 10.1 Immature Gran % (Auto) 0.4 Neut % (Auto) 63.4 Lymph % (Auto) 19.1 L Graham % (Auto) 15.0 H Eos % (Auto) 1.8 Baso % (Auto) 0.3 Lymph # (Auto) 1.3 Graham # (Auto) 1.0 Eos # (Auto) 0.1 Baso # (Auto) 0.0 Abs Immat Gran (auto) 0.03 Absolute Neuts (auto) 4.3 Absolute Nucleated RBC 0.000 Nucleated RBC % (auto) 0.0 ESR 96 H Sodium 137 Potassium 5.2 H Chloride 101 Carbon Dioxide 28 Anion Gap 13 BUN 46 H Creatinine 1.91 H Estim Creat Clear Calc 48.5 Estimated GFR 37 POC Glucose 196 H 185 H Random Glucose 209 H Lactic Acid Calcium 9.3 D Total Bilirubin 0.3 AST 35 ALT 25 Alkaline Phosphatase 212 H C-Reactive Protein 31.33 H Total Protein 6.9 Albumin 3.1 L Random Vancomycin Urine Opiates Screen Ur Buprenorphine Scrn Ur Oxycodone Screen Urine Methadone Screen Urine Fentanyl Screen Ur Barbiturates Screen Ur Phencyclidine Scrn Ur Amphetamines Screen U Benzodiazepines Scrn Urine Cocaine Screen U Marijuana (THC) Screen 11/09/23 11/09/23 11/09/23 16:37 18:26 23:42 WBC RBC Hgb Hct MCV MCH MCHC RDW Plt Count MPV Immature Gran % (Auto) Neut % (Auto) Lymph % (Auto) Graham % (Auto) Eos % (Auto) Baso % (Auto) Lymph # (Auto) Graham # (Auto) Eos # (Auto) Baso # (Auto) Abs Immat Gran (auto) Absolute Neuts (auto) Absolute Nucleated RBC Nucleated RBC % (auto) ESR Sodium Potassium Chloride Carbon Dioxide Anion Gap BUN Creatinine Estim Creat Clear Calc Estimated GFR POC Glucose 177 H 150 H Random Glucose Lactic Acid 0.9 Calcium Total Bilirubin AST ALT Alkaline Phosphatase C-Reactive Protein Total Protein Albumin Random Vancomycin Urine Opiates Screen Ur Buprenorphine Scrn Ur Oxycodone Screen Urine Methadone Screen Urine Fentanyl Screen Ur Barbiturates Screen Ur Phencyclidine Scrn Ur Amphetamines Screen U Benzodiazepines Scrn Urine Cocaine Screen U Marijuana (THC) Screen 11/10/23 11/10/23 11/10/23 05:46 05:46 05:46 WBC 6.7 RBC 3.92 L Hgb 11.1 L Hct 35.2 L MCV 89.8 MCH 28.3 MCHC 31.5 RDW 16.1 H Plt Count 117 L MPV 10.2 Immature Gran % (Auto) 0.6 H Neut % (Auto) 71.0 Lymph % (Auto) 14.7 L Graham % (Auto) 11.6 H Eos % (Auto) 1.5 Baso % (Auto) 0.6 Lymph # (Auto) 1.0 L Graham # (Auto) 0.8 Eos # (Auto) 0.1 Baso # (Auto) 0.0 Abs Immat Gran (auto) 0.04 H Absolute Neuts (auto) 4.8 Absolute Nucleated RBC 0.000 Nucleated RBC % (auto) 0.0 ESR Sodium 139 Potassium 5.1 Chloride 106 Carbon Dioxide 23 Anion Gap 15 BUN 33 H Creatinine 1.40 1.42 H Estim Creat Clear Calc 66.2 65.2 Estimated GFR 53 POC Glucose Random Glucose Lactic Acid Calcium Total Bilirubin AST ALT Alkaline Phosphatase C-Reactive Protein Total Protein Albumin Random Vancomycin Urine Opiates Screen Ur Buprenorphine Scrn Ur Oxycodone Screen Urine Methadone Screen Urine Fentanyl Screen Ur Barbiturates Screen Ur Phencyclidine Scrn Ur Amphetamines Screen U Benzodiazepines Scrn Urine Cocaine Screen U Marijuana (THC) Screen 11/10/23 11/10/23 11/10/23 05:46 07:19 09:59 WBC RBC Hgb Hct MCV MCH MCHC RDW Plt Count MPV Immature Gran % (Auto) Neut % (Auto) Lymph % (Auto) Graham % (Auto) Eos % (Auto) Baso % (Auto) Lymph # (Auto) Graham # (Auto) Eos # (Auto) Baso # (Auto) Abs Immat Gran (auto) Absolute Neuts (auto) Absolute Nucleated RBC Nucleated RBC % (auto) ESR Sodium Potassium Chloride Carbon Dioxide Anion Gap BUN Creatinine Estim Creat Clear Calc Estimated GFR 52 POC Glucose 268 H 251 H Random Glucose 316 H Lactic Acid Calcium 9.6 Total Bilirubin AST ALT Alkaline Phosphatase C-Reactive Protein Total Protein Albumin Random Vancomycin Urine Opiates Screen Ur Buprenorphine Scrn Ur Oxycodone Screen Urine Methadone Screen Urine Fentanyl Screen Ur Barbiturates Screen Ur Phencyclidine Scrn Ur Amphetamines Screen U Benzodiazepines Scrn Urine Cocaine Screen U Marijuana (THC) Screen 11/10/23 11/10/23 11/10/23 11:03 16:00 20:10 WBC RBC Hgb Hct MCV MCH MCHC RDW Plt Count MPV Immature Gran % (Auto) Neut % (Auto) Lymph % (Auto) Graham % (Auto) Eos % (Auto) Baso % (Auto) Lymph # (Auto) Graham # (Auto) Eos # (Auto) Baso # (Auto) Abs Immat Gran (auto) Absolute Neuts (auto) Absolute Nucleated RBC Nucleated RBC % (auto) ESR Sodium Potassium Chloride Carbon Dioxide Anion Gap BUN Creatinine Estim Creat Clear Calc Estimated GFR POC Glucose 230 H 192 H 206 H Random Glucose Lactic Acid Calcium Total Bilirubin AST ALT Alkaline Phosphatase C-Reactive Protein Total Protein Albumin Random Vancomycin Urine Opiates Screen Ur Buprenorphine Scrn Ur Oxycodone Screen Urine Methadone Screen Urine Fentanyl Screen Ur Barbiturates Screen Ur Phencyclidine Scrn Ur Amphetamines Screen U Benzodiazepines Scrn Urine Cocaine Screen U Marijuana (THC) Screen 11/11/23 11/11/23 11/11/23 07:29 11:16 16:09 WBC RBC Hgb Hct MCV MCH MCHC RDW Plt Count MPV Immature Gran % (Auto) Neut % (Auto) Lymph % (Auto) Graham % (Auto) Eos % (Auto) Baso % (Auto) Lymph # (Auto) Graham # (Auto) Eos # (Auto) Baso # (Auto) Abs Immat Gran (auto) Absolute Neuts (auto) Absolute Nucleated RBC Nucleated RBC % (auto) ESR Sodium Potassium Chloride Carbon Dioxide Anion Gap BUN Creatinine 0.91 Estim Creat Clear Calc 129.1 Estimated GFR > 60 POC Glucose 199 H 209 H Random Glucose Lactic Acid Calcium Total Bilirubin AST ALT Alkaline Phosphatase C-Reactive Protein Total Protein Albumin Random Vancomycin 7.4 L Urine Opiates Screen Ur Buprenorphine Scrn Ur Oxycodone Screen Urine Methadone Screen Urine Fentanyl Screen Ur Barbiturates Screen Ur Phencyclidine Scrn Ur Amphetamines Screen U Benzodiazepines Scrn Urine Cocaine Screen U Marijuana (THC) Screen 11/11/23 11/12/23 11/12/23 16:15 06:59 10:47 WBC RBC Hgb Hct MCV MCH MCHC RDW Plt Count MPV Immature Gran % (Auto) Neut % (Auto) Lymph % (Auto) Graham % (Auto) Eos % (Auto) Baso % (Auto) Lymph # (Auto) Graham # (Auto) Eos # (Auto) Baso # (Auto) Abs Immat Gran (auto) Absolute Neuts (auto) Absolute Nucleated RBC Nucleated RBC % (auto) ESR Sodium Potassium Chloride Carbon Dioxide Anion Gap BUN Creatinine Estim Creat Clear Calc Estimated GFR POC Glucose 171 H 250 H 202 H Random Glucose Lactic Acid Calcium Total Bilirubin AST ALT Alkaline Phosphatase C-Reactive Protein Total Protein Albumin Random Vancomycin Urine Opiates Screen Ur Buprenorphine Scrn Ur Oxycodone Screen Urine Methadone Screen Urine Fentanyl Screen Ur Barbiturates Screen Ur Phencyclidine Scrn Ur Amphetamines Screen U Benzodiazepines Scrn Urine Cocaine Screen U Marijuana (THC) Screen 11/12/23 11/12/23 11/12/23 15:08 15:52 20:26 WBC RBC Hgb Hct MCV MCH MCHC RDW Plt Count MPV Immature Gran % (Auto) Neut % (Auto) Lymph % (Auto) Graham % (Auto) Eos % (Auto) Baso % (Auto) Lymph # (Auto) Graham # (Auto) Eos # (Auto) Baso # (Auto) Abs Immat Gran (auto) Absolute Neuts (auto) Absolute Nucleated RBC Nucleated RBC % (auto) ESR Sodium 145 Potassium 5.1 Chloride 108 Carbon Dioxide 21 L Anion Gap 21 H BUN Creatinine 0.94 Estim Creat Clear Calc 125.0 Estimated GFR > 60 POC Glucose 163 H 190 H Random Glucose Lactic Acid Calcium Total Bilirubin AST ALT Alkaline Phosphatase C-Reactive Protein Total Protein Albumin Random Vancomycin Urine Opiates Screen Ur Buprenorphine Scrn Ur Oxycodone Screen Urine Methadone Screen Urine Fentanyl Screen Ur Barbiturates Screen Ur Phencyclidine Scrn Ur Amphetamines Screen U Benzodiazepines Scrn Urine Cocaine Screen U Marijuana (THC) Screen 11/13/23 11/13/23 11/13/23 07:16 11:00 20:17 WBC RBC Hgb Hct MCV MCH MCHC RDW Plt Count MPV Immature Gran % (Auto) Neut % (Auto) Lymph % (Auto) Graham % (Auto) Eos % (Auto) Baso % (Auto) Lymph # (Auto) Graham # (Auto) Eos # (Auto) Baso # (Auto) Abs Immat Gran (auto) Absolute Neuts (auto) Absolute Nucleated RBC Nucleated RBC % (auto) ESR Sodium Potassium Chloride Carbon Dioxide Anion Gap BUN Creatinine Estim Creat Clear Calc Estimated GFR POC Glucose 192 H 209 H 221 H Random Glucose Lactic Acid Calcium Total Bilirubin AST ALT Alkaline Phosphatase C-Reactive Protein Total Protein Albumin Random Vancomycin Urine Opiates Screen Ur Buprenorphine Scrn Ur Oxycodone Screen Urine Methadone Screen Urine Fentanyl Screen Ur Barbiturates Screen Ur Phencyclidine Scrn Ur Amphetamines Screen U Benzodiazepines Scrn Urine Cocaine Screen U Marijuana (THC) Screen 11/14/23 11/14/23 11/14/23 07:27 11:12 16:18 WBC RBC Hgb Hct MCV MCH MCHC RDW Plt Count MPV Immature Gran % (Auto) Neut % (Auto) Lymph % (Auto) Graham % (Auto) Eos % (Auto) Baso % (Auto) Lymph # (Auto) Graham # (Auto) Eos # (Auto) Baso # (Auto) Abs Immat Gran (auto) Absolute Neuts (auto) Absolute Nucleated RBC Nucleated RBC % (auto) ESR Sodium Potassium Chloride Carbon Dioxide Anion Gap BUN Creatinine Estim Creat Clear Calc Estimated GFR POC Glucose 192 H 183 H 196 H Random Glucose Lactic Acid Calcium Total Bilirubin AST ALT Alkaline Phosphatase C-Reactive Protein Total Protein Albumin Random Vancomycin Urine Opiates Screen Ur Buprenorphine Scrn Ur Oxycodone Screen Urine Methadone Screen Urine Fentanyl Screen Ur Barbiturates Screen Ur Phencyclidine Scrn Ur Amphetamines Screen U Benzodiazepines Scrn Urine Cocaine Screen U Marijuana (THC) Screen 11/14/23 11/14/23 11/15/23 21:04 23:26 07:20 WBC RBC Hgb Hct MCV MCH MCHC RDW Plt Count MPV Immature Gran % (Auto) Neut % (Auto) Lymph % (Auto) Graham % (Auto) Eos % (Auto) Baso % (Auto) Lymph # (Auto) Graham # (Auto) Eos # (Auto) Baso # (Auto) Abs Immat Gran (auto) Absolute Neuts (auto) Absolute Nucleated RBC Nucleated RBC % (auto) ESR Sodium Potassium Chloride Carbon Dioxide Anion Gap BUN Creatinine Estim Creat Clear Calc Estimated GFR POC Glucose 223 H 204 H 171 H Random Glucose Lactic Acid Calcium Total Bilirubin AST ALT Alkaline Phosphatase C-Reactive Protein Total Protein Albumin Random Vancomycin Urine Opiates Screen Ur Buprenorphine Scrn Ur Oxycodone Screen Urine Methadone Screen Urine Fentanyl Screen Ur Barbiturates Screen Ur Phencyclidine Scrn Ur Amphetamines Screen U Benzodiazepines Scrn Urine Cocaine Screen U Marijuana (THC) Screen 11/15/23 11/15/23 11/15/23 11:11 16:11 20:34 WBC RBC Hgb Hct MCV MCH MCHC RDW Plt Count MPV Immature Gran % (Auto) Neut % (Auto) Lymph % (Auto) Graham % (Auto) Eos % (Auto) Baso % (Auto) Lymph # (Auto) Graham # (Auto) Eos # (Auto) Baso # (Auto) Abs Immat Gran (auto) Absolute Neuts (auto) Absolute Nucleated RBC Nucleated RBC % (auto) ESR Sodium Potassium Chloride Carbon Dioxide Anion Gap BUN Creatinine Estim Creat Clear Calc Estimated GFR POC Glucose 162 H 220 H 229 H Random Glucose Lactic Acid Calcium Total Bilirubin AST ALT Alkaline Phosphatase C-Reactive Protein Total Protein Albumin Random Vancomycin Urine Opiates Screen Ur Buprenorphine Scrn Ur Oxycodone Screen Urine Methadone Screen Urine Fentanyl Screen Ur Barbiturates Screen Ur Phencyclidine Scrn Ur Amphetamines Screen U Benzodiazepines Scrn Urine Cocaine Screen U Marijuana (THC) Screen 11/16/23 11/16/23 11/16/23 07:26 11:26 16:52 WBC RBC Hgb Hct MCV MCH MCHC RDW Plt Count MPV Immature Gran % (Auto) Neut % (Auto) Lymph % (Auto) Graham % (Auto) Eos % (Auto) Baso % (Auto) Lymph # (Auto) Graham # (Auto) Eos # (Auto) Baso # (Auto) Abs Immat Gran (auto) Absolute Neuts (auto) Absolute Nucleated RBC Nucleated RBC % (auto) ESR Sodium Potassium Chloride Carbon Dioxide Anion Gap BUN Creatinine Estim Creat Clear Calc Estimated GFR POC Glucose 218 H 203 H 119 H Random Glucose Lactic Acid Calcium Total Bilirubin AST ALT Alkaline Phosphatase C-Reactive Protein Total Protein Albumin Random Vancomycin Urine Opiates Screen Ur Buprenorphine Scrn Ur Oxycodone Screen Urine Methadone Screen Urine Fentanyl Screen Ur Barbiturates Screen Ur Phencyclidine Scrn Ur Amphetamines Screen U Benzodiazepines Scrn Urine Cocaine Screen U Marijuana (THC) Screen 11/16/23 11/17/23 11/17/23 19:59 07:13 11:10 WBC RBC Hgb Hct MCV MCH MCHC RDW Plt Count MPV Immature Gran % (Auto) Neut % (Auto) Lymph % (Auto) Graham % (Auto) Eos % (Auto) Baso % (Auto) Lymph # (Auto) Graham # (Auto) Eos # (Auto) Baso # (Auto) Abs Immat Gran (auto) Absolute Neuts (auto) Absolute Nucleated RBC Nucleated RBC % (auto) ESR Sodium Potassium Chloride Carbon Dioxide Anion Gap BUN Creatinine Estim Creat Clear Calc Estimated GFR POC Glucose 342 H 200 H 210 H Random Glucose Lactic Acid Calcium Total Bilirubin AST ALT Alkaline Phosphatase C-Reactive Protein Total Protein Albumin Random Vancomycin Urine Opiates Screen Ur Buprenorphine Scrn Ur Oxycodone Screen Urine Methadone Screen Urine Fentanyl Screen Ur Barbiturates Screen Ur Phencyclidine Scrn Ur Amphetamines Screen U Benzodiazepines Scrn Urine Cocaine Screen U Marijuana (THC) Screen 11/17/23 11/17/23 11/17/23 14:35 16:17 20:12 WBC 11.1 H RBC 3.51 L Hgb 10.0 L Hct 30.7 L MCV 87.5 MCH 28.5 MCHC 32.6 RDW 16.4 H Plt Count 183 D MPV 10.6 Immature Gran % (Auto) Neut % (Auto) Lymph % (Auto) Graham % (Auto) Eos % (Auto) Baso % (Auto) Lymph # (Auto) Graham # (Auto) Eos # (Auto) Baso # (Auto) Abs Immat Gran (auto) Absolute Neuts (auto) Absolute Nucleated RBC 0.040 H Nucleated RBC % (auto) 0.4 H ESR Sodium Potassium Chloride Carbon Dioxide Anion Gap BUN Creatinine Estim Creat Clear Calc Estimated GFR POC Glucose 218 H 236 H Random Glucose Lactic Acid Calcium Total Bilirubin AST ALT Alkaline Phosphatase C-Reactive Protein Total Protein Albumin Random Vancomycin Urine Opiates Screen Ur Buprenorphine Scrn Ur Oxycodone Screen Urine Methadone Screen Urine Fentanyl Screen Ur Barbiturates Screen Ur Phencyclidine Scrn Ur Amphetamines Screen U Benzodiazepines Scrn Urine Cocaine Screen U Marijuana (THC) Screen 11/17/23 11/18/23 11/18/23 Unknown 07:12 10:27 WBC RBC Hgb Hct MCV MCH MCHC RDW Plt Count MPV Immature Gran % (Auto) Neut % (Auto) Lymph % (Auto) Graham % (Auto) Eos % (Auto) Baso % (Auto) Lymph # (Auto) Graham # (Auto) Eos # (Auto) Baso # (Auto) Abs Immat Gran (auto) Absolute Neuts (auto) Absolute Nucleated RBC Nucleated RBC % (auto) ESR Sodium 135 135 Potassium 4.5 4.9 Chloride 106 106 Carbon Dioxide 23 20 L Anion Gap 11 L 14 BUN 36 H 22 H Creatinine 1.96 H 1.16 Estim Creat Clear Calc 59.9 101.3 Estimated GFR 36 > 60 POC Glucose 241 H Random Glucose 238 H 269 H Lactic Acid Calcium 8.4 D 8.3 L Total Bilirubin AST ALT Alkaline Phosphatase C-Reactive Protein Total Protein Albumin Random Vancomycin Urine Opiates Screen Ur Buprenorphine Scrn Ur Oxycodone Screen Urine Methadone Screen Urine Fentanyl Screen Ur Barbiturates Screen Ur Phencyclidine Scrn Ur Amphetamines Screen U Benzodiazepines Scrn Urine Cocaine Screen U Marijuana (THC) Screen 11/18/23 11/18/23 11/18/23 11:35 16:16 20:33 WBC RBC Hgb Hct MCV MCH MCHC RDW Plt Count MPV Immature Gran % (Auto) Neut % (Auto) Lymph % (Auto) Graham % (Auto) Eos % (Auto) Baso % (Auto) Lymph # (Auto) Graham # (Auto) Eos # (Auto) Baso # (Auto) Abs Immat Gran (auto) Absolute Neuts (auto) Absolute Nucleated RBC Nucleated RBC % (auto) ESR Sodium Potassium Chloride Carbon Dioxide Anion Gap BUN Creatinine Estim Creat Clear Calc Estimated GFR POC Glucose 231 H 246 H 271 H Random Glucose Lactic Acid Calcium Total Bilirubin AST ALT Alkaline Phosphatase C-Reactive Protein Total Protein Albumin Random Vancomycin Urine Opiates Screen Ur Buprenorphine Scrn Ur Oxycodone Screen Urine Methadone Screen Urine Fentanyl Screen Ur Barbiturates Screen Ur Phencyclidine Scrn Ur Amphetamines Screen U Benzodiazepines Scrn Urine Cocaine Screen U Marijuana (THC) Screen 11/19/23 11/19/23 11/19/23 07:12 11:31 16:24 WBC RBC Hgb Hct MCV MCH MCHC RDW Plt Count MPV Immature Gran % (Auto) Neut % (Auto) Lymph % (Auto) Graham % (Auto) Eos % (Auto) Baso % (Auto) Lymph # (Auto) Graham # (Auto) Eos # (Auto) Baso # (Auto) Abs Immat Gran (auto) Absolute Neuts (auto) Absolute Nucleated RBC Nucleated RBC % (auto) ESR Sodium Potassium Chloride Carbon Dioxide Anion Gap BUN Creatinine Estim Creat Clear Calc Estimated GFR POC Glucose 283 H 255 H 246 H Random Glucose Lactic Acid Calcium Total Bilirubin AST ALT Alkaline Phosphatase C-Reactive Protein Total Protein Albumin Random Vancomycin Urine Opiates Screen Ur Buprenorphine Scrn Ur Oxycodone Screen Urine Methadone Screen Urine Fentanyl Screen Ur Barbiturates Screen Ur Phencyclidine Scrn Ur Amphetamines Screen U Benzodiazepines Scrn Urine Cocaine Screen U Marijuana (THC) Screen 11/19/23 11/20/23 11/20/23 19:59 07:19 11:46 WBC RBC Hgb Hct MCV MCH MCHC RDW Plt Count MPV Immature Gran % (Auto) Neut % (Auto) Lymph % (Auto) Graham % (Auto) Eos % (Auto) Baso % (Auto) Lymph # (Auto) Graham # (Auto) Eos # (Auto) Baso # (Auto) Abs Immat Gran (auto) Absolute Neuts (auto) Absolute Nucleated RBC Nucleated RBC % (auto) ESR Sodium Potassium Chloride Carbon Dioxide Anion Gap BUN Creatinine Estim Creat Clear Calc Estimated GFR POC Glucose 281 H 304 H 185 H Random Glucose Lactic Acid Calcium Total Bilirubin AST ALT Alkaline Phosphatase C-Reactive Protein Total Protein Albumin Random Vancomycin Urine Opiates Screen Ur Buprenorphine Scrn Ur Oxycodone Screen Urine Methadone Screen Urine Fentanyl Screen Ur Barbiturates Screen Ur Phencyclidine Scrn Ur Amphetamines Screen U Benzodiazepines Scrn Urine Cocaine Screen U Marijuana (THC) Screen 11/20/23 11/20/23 11/21/23 16:10 19:31 07:12 WBC 5.5 RBC 3.72 L Hgb 10.5 L Hct 31.9 L MCV 85.8 MCH 28.2 MCHC 32.9 RDW 15.8 Plt Count 172 MPV 10.0 Immature Gran % (Auto) Neut % (Auto) Lymph % (Auto) Graham % (Auto) Eos % (Auto) Baso % (Auto) Lymph # (Auto) Graham # (Auto) Eos # (Auto) Baso # (Auto) Abs Immat Gran (auto) Absolute Neuts (auto) Absolute Nucleated RBC 0.000 Nucleated RBC % (auto) 0.0 ESR Sodium 137 Potassium 4.4 Chloride 102 Carbon Dioxide 26 Anion Gap 13 BUN 18 H Creatinine 0.82 Estim Creat Clear Calc 143.3 Estimated GFR > 60 POC Glucose 181 H 261 H Random Glucose 240 H Lactic Acid Calcium 9.2 D Total Bilirubin AST ALT Alkaline Phosphatase C-Reactive Protein Total Protein Albumin Random Vancomycin Urine Opiates Screen Ur Buprenorphine Scrn Ur Oxycodone Screen Urine Methadone Screen Urine Fentanyl Screen Ur Barbiturates Screen Ur Phencyclidine Scrn Ur Amphetamines Screen U Benzodiazepines Scrn Urine Cocaine Screen U Marijuana (THC) Screen 11/21/23 11/21/23 11/21/23 07:38 11:23 14:42 WBC RBC Hgb Hct MCV MCH MCHC RDW Plt Count MPV Immature Gran % (Auto) Neut % (Auto) Lymph % (Auto) Graham % (Auto) Eos % (Auto) Baso % (Auto) Lymph # (Auto) Graham # (Auto) Eos # (Auto) Baso # (Auto) Abs Immat Gran (auto) Absolute Neuts (auto) Absolute Nucleated RBC Nucleated RBC % (auto) ESR Sodium Potassium Chloride Carbon Dioxide Anion Gap BUN Creatinine Estim Creat Clear Calc Estimated GFR POC Glucose 231 H 241 H 185 H Random Glucose Lactic Acid Calcium Total Bilirubin AST ALT Alkaline Phosphatase C-Reactive Protein Total Protein Albumin Random Vancomycin Urine Opiates Screen Ur Buprenorphine Scrn Ur Oxycodone Screen Urine Methadone Screen Urine Fentanyl Screen Ur Barbiturates Screen Ur Phencyclidine Scrn Ur Amphetamines Screen U Benzodiazepines Scrn Urine Cocaine Screen U Marijuana (THC) Screen Airway Heart: rrr Lungs: cta Assessment and Plan Assessment Anesthesia Assessment: Anesthesia Plan Discussed Final Anesthetic Review Family History of Problems with Anesthesia: No History of Problems with Anesthesia: No NPO: Yes ASA Class: III Final Preanesthetic Review: No Changes in Pt Med Stat, Meds/Allgs Chart Reviewed, Consent Obtained/Reviewed and Anes Risks/Benef Reviewed Patient Risk: Intermediate Procedure Risk: Intermediate Anesthetic Plan Anesthetic Plan: GA Disposition: Standard PACU
[2023-11-21] MEDS: HYDROmorphone HCl 0.5 MG/0.5 ML SYRINGE 0.25 MG IVPUSH ×6 (17:18→17:43)
--- NOTE | 2023-11-21 17:24 | P.OP_ITS ---
Operative Note Operative Note Date of Service: 11/21/23 Narrative: Operative note by [facility] Preoperative diagnosis: 1. Ischemic left lower extremity 2. Diabetic foot ulcer Postoperative diagnosis: Same Procedure: 1. Left Leg below-knee amputation 2. Myodesis Surgeon:Michael Goldman M.D. Recruiting And Selection Consultant: Mita Anesthesia: General Specimens: One Drains: None Estimated blood loss:100 ml Indications: Complex diabetic 53-year-old gentleman with prior history leg injury and fasciotomies has a nonhealing heel ulcer it has been progressing for some time and has had several trials of conservative management including IV antibiotics and it remains nonhealing. He now presents for amputation. The patient has signed the informed consent after reviewing risks, complications, benefits, and alternatives previously discussed with the patient. The patient was given the opportunity to ask any additional questions or voice any concerns. All questions were answered to the patient's satisfaction. Procedure in detail: The patient was brought to the operating room prior to which a time-out was called for patient identification and site verification. The patient was placed in a supine position. The left lower extremity was prepped and draped in the standard surgical fashion. The intended incision site was marked. The anterior aspect of the incision was made approximately 10 cm below the left tibial tuberosity. The incision was carried through the fascia. The anterior compartment muscles were divided using electrocautery dissection. The tibia and fibula were cleared. Periosteal elevator was used to clear the periosteum from the tibia. The tibia was transected with a power reciprocating saw. This was done in a reverse hockey stick shaped cut. The fibula was transected approximately 2 in above the tibial transection site once again with a reciprocating saw. Of note the tissue planes were extremely poor. The muscle bed was extremely poor and replaced by fatty tissue due to the prior injury. Posterior flap was poor in nature The amputation was then completed using electrocautery to create the posterior flap. The flap was debulked using electrocautery and Metzenbaum scissors. The nerve was placed on traction and ligated and divided sharply. The anterior tibial posterior tibial and peroneal vessels were or identified and tied off with 2-0 silk ties. We then performed a myodesis. In the tibia on the medial and lateral aspect using a drill holes were then created. Using 2-0 Polysorb, the muscle was then buttressed to the tibia. The wound was then closed using 2-0 poly Sorb. This was used to bring together the fascia from the posterior flap to the anterior cut. We then reapproximated the superficial layer with 3-0 poly Sorb suture. Finally skin was closed using 2-0 nylon in a mattress fashion. In addition we used skin clips. The stump was then dressed with Xeroform, Kerlix and an Maximino wrap. The patient tolerated the procedure well. They were brought to recovery with stable vitals. At the end the case sponge needle instrument counts were correct x2. This note is constructed using voice recognition software. While every effort has been made to ensure accuracy, mine laborer errors may have been included. Thank you for allowing me to participate in the care of your patient. Yours sincerely, Michael Goldman MD, FACS, R.P.V.I.
[2023-11-21 18:06] LABS: Glucose, Whole Blood 266 mg/dL (60-115)
[2023-11-21] MEDS: HYDROmorphone HCl 0.5 MG/0.5 ML SYRINGE IVPUSH (19:53)
[2023-11-21 21:10] LABS: Glucose, Whole Blood 316 mg/dL (60-115)
[2023-11-21] MEDS: Insulin Lispro 100 UNIT/ML 3 ML VIAL SUBCUT (21:24)
[2023-11-21] MEDS: Insulin Glargine,Hum.rec.anlog 100 UNIT/ML 10 ML VIAL 25 UNIT SUBCUT (21:25)
[2023-11-21] MEDS: Atorvastatin Calcium 40 MG TABLET PO (21:27)
[2023-11-21] MEDS: Gabapentin 300 MG CAPSULE PO (21:27)
[2023-11-21] MEDS: ALPRAZolam 0.5 MG TABLET 1 MG PO (23:17)
[2023-11-22] VITALS (17 sets, daily range): BP systolic 108–153; BP diastolic 61–89; PULSE 73–98; RESP 16–20; TEMP 36–36.6; O2SAT 96–99
[2023-11-22] MEDS: HYDROmorphone HCl 0.5 MG/0.5 ML SYRINGE IVPUSH ×3 (00:09→09:06)
--- NOTE | 2023-11-22 07:53 | HO.POSTANES ---
Post Anesthesia Evaluation Post Anesthesia Evaluation Date of Service: 11/21/23 Vital Signs: Vital Signs Temp Pulse Resp BP Pulse Ox O2 Del Method O2 Flow Rate 11/22/23 07:46 97.1 F 82 18 153/87 H 96 Room Air 11/22/23 05:33 18 11/22/23 05:03 18 11/22/23 04:00 96.8 F 83 16 139/79 99 Nasal Cannula 2 11/22/23 00:39 18 11/22/23 00:17 18 11/22/23 00:09 20 11/22/23 00:00 96.9 F 98 16 148/89 H 97 Nasal Cannula 2 11/21/23 20:23 18 11/21/23 20:00 97.3 F 95 16 168/97 H 97 Nasal Cannula 2 Anesthesia: General Mental Status: Awake Pain Control: Satisfactory (chronic pain ) Nausea/Vomiting: None Hydration: Adequate Anesthesia-Related Issues: No Anes. Related Issues
[2023-11-22 08:07] LABS: Glucose, Whole Blood 330 mg/dL (60-115)
[2023-11-22] MEDS: Insulin Lispro 100 UNIT/ML 3 ML VIAL SUBCUT ×7 (08:47→21:00)
[2023-11-22] MEDS: QUEtiapine Fumarate 50 MG TABLET PO ×3 (08:48→20:59)
[2023-11-22] MEDS: methADONE HCl 20 MG/2 ML ORAL.CONC 195 MG PO (08:48)
[2023-11-22] MEDS: Gabapentin 300 MG CAPSULE PO ×2 (08:48→15:45)
[2023-11-22] MEDS: Acetaminophen 325 MG TABLET 975 MG PO ×3 (08:49→20:58)
[2023-11-22] MEDS: 0.9 % Sodium Chloride Flush 10 ML SYRINGE 5 ML IVFLUSH ×3 (08:49→21:03)
--- NOTE | 2023-11-22 09:50 | HO.VASCPN ---
Subjective Subjective Date of Service: 11/22/23 Patient reports: no new complaints and feels better Interval history: Patient is postop day 1 status post BKA. Appears to be doing relatively well. When distracted denies any issues. But he consistently complains of pain. He was up to 0.5 mg q.4 hours. Appears to be doing relatively well otherwise. Tolerating a regular diet. Physical Exam Vital Signs: Vital Signs: Last Vital Signs Temp 97.1 F 11/22/23 07:46 Pulse 82 11/22/23 07:46 Resp 18 11/22/23 07:46 BP 153/87 H 11/22/23 07:46 Pulse Ox 96 11/22/23 07:46 O2 Del Method Room Air 11/22/23 07:46 O2 Flow Rate 2 11/22/23 04:00 FiO2 99 11/05/23 18:24 Oxygen Flow Rate 2 10/28/23 00:15 BMI result Body Mass Index 38.7 Const: General: cooperative, healthy appearing and no acute distress Orientation/consciousness: oriented to person, oriented to place and oriented to time HEENT: Head: Yes normal to inspection Neck: Carotids: no bruits Chest: Chest palpation & inspection: normal inspection of the chest Resp: Effort & Inspection: normal respiratory effort and able to speak in complete sentences Auscultation: clear to auscultation bilaterally Cardio: Rate: regular rate Heart sounds: S1 normal heart sound present and S2 normal heart sound present GI: Inspection: Yes normal to inspection Skin: Other: Dressing clean dry intact General skin exam: no rashes or lesions noted Wounds: no wounds Neuro: General: oriented to person, oriented to place, oriented to time and CN's II-XI intact bilaterally Extrem: General: Yes normal to inspection, Yes full ROM and Yes no clubbing, cyanosis or edema Psych: Appearance: grossly normal and well kempt Speech and movement: Normal speech and movement present Affect: normal affect Progress Note: A&P Assessment and plan (1) Osteomyelitis: Status: Acute Assessment and Plan: Patient is status post BKA. Adjust pain meds as required. Will plan for dressing change on Monday. Case discussed with hospital team Time Spent With Patient Time: Total time managing care of this patient today ____ minutes. Procedures Date of Service Date of Service: 11/22/23 Quality Stroke Does the patient have a stroke diagnosis?: No VTE Prior VTE?: No VTE Risk Level:: Medical - moderate - high VTE Device Contraindication: Treatment Not Indicated VTE Drug Contraindication: N/A - Med Ordered
[2023-11-22 11:17] LABS: Glucose, Whole Blood 332 mg/dL (60-115)
--- NOTE | 2023-11-22 11:23 | P.PNIM_ITS ---
Subjective Subjective Date of Service: 11/22/23 Interval History: Complaining of pain left BKA surgical site, requesting to be placed back on Xanax, denies fever, no chills, no lightheadedness, no dizziness tolerating diet with no nausea, no vomiting or abdominal discomfort no other acute issues overnight. Review of Systems All other system reviewed and negative Physical Exam 2 Vital Signs: Vital Signs: Last Vital Signs Temp 97.1 F 11/22/23 07:46 Pulse 82 11/22/23 07:46 Resp 18 11/22/23 07:46 BP 153/87 H 11/22/23 07:46 Pulse Ox 96 11/22/23 07:46 O2 Del Method Room Air 11/22/23 07:46 O2 Flow Rate 2 11/22/23 04:00 FiO2 99 11/05/23 18:24 Oxygen Flow Rate 2 10/28/23 00:15 BMI result Body Mass Index 38.7 Const: Other: General: awake, alert, no distress Neck no JVD Resp: Clear to auscultation, no wheeze, no crackles CVS: S1, S2, RRR GI: Soft, non tender, bowel sounds audible Skin: Warm, dry Neuro: Awake alert x3, speech clear, Motor grossly intact bilaterally Extremities: Left foot dressing in place at site of BKA . Right foot s/p TMA with chronic appearing wound without discharge. Objective Data Active Medications Acetaminophen (Acetaminophen 325 Mg Tablet) 975 mg PO TID [facility] Last Admin: 11/22/23 08:49 Dose: 975 mg Documented By: EMMIE Acetaminophen (Acetaminophen 325 Mg Tablet) 650 mg PO Q6H PRN PRN Reason: Pain, Mild (Pain Scale 1-3) Alprazolam (Alprazolam 0.5 Mg Tablet) 1 mg PO BEDTIME PRN PRN Reason: insomnia Last Admin: 11/21/23 23:17 Dose: 1 mg Documented By: ZAKI Atorvastatin Calcium (Atorvastatin Calcium 40 Mg Tablet) 40 mg PO BEDTIME [facility] Last Admin: 11/21/23 21:27 Dose: 40 mg Documented By: ZAKI Enoxaparin Sodium (Enoxaparin Sodium 40 Mg/0.4 Ml Syringe) 40 mg SUBCUT Q24H [facility] Last Admin: 11/21/23 13:03 Dose: Not Given Documented By: CATHERINE Non-Admin Reason: surgery Gabapentin (Gabapentin 300 Mg Capsule) 300 mg PO TID [facility] Last Admin: 11/22/23 08:48 Dose: 300 mg Documented By: EMMIE Glucose (Glucose Gel 15 Gm Gel..Gram.) 15 gm PO Q15M PRN; Protocol PRN Reason: per Hypoglycemia Standing Ord. Hydromorphone HCl (Hydromorphone Hcl 0.5 Mg/0.5 Ml Syringe) 0.5 mg IVPUSH Q4H PRN; Protocol PRN Reason: Pain, Severe (Pain Scale 7-10) Last Admin: 11/22/23 09:06 Dose: 0.5 mg Documented By: EMMIE Dextrose (D10) 250 mls @ 750 mls/hr IV Q15M PRN; Protocol PRN Reason: per Hypoglycemia Standing Ord. Meropenem 1 gm/ Sodium (Chloride) 100 mls @ 200 mls/hr IV Q8H [facility] Last Infusion: 11/22/23 03:13 Dose: Infused Documented By: ZAKI Insulin Glargine (Insulin Glargine,Hum.Rec.Anlog 100 Unit/Ml 10 Ml Vial) 25 unit SUBCUT BEDTIME [facility] Last Admin: 11/21/23 21:25 Dose: 25 unit Documented By: ZAKI Insulin Human Lispro (Insulin Lispro 100 Unit/Ml 3 Ml Vial) 0 unit SUBCUT QIDACHS [facility]; Protocol Last Admin: 11/22/23 08:47 Dose: 10 unit Documented By: EMMIE Insulin Human Lispro (Insulin Lispro 100 Unit/Ml 3 Ml Vial) 5 unit SUBCUT TIDAC [facility] Last Admin: 11/22/23 08:48 Dose: 5 unit Documented By: EMMIE Lorazepam (Lorazepam 1 Mg Tablet) 2 mg PO DAILY [facility] Last Admin: 11/22/23 08:48 Dose: 2 mg Documented By: EMMIE Melatonin (Melatonin 3 Mg Tablet) 6 mg PO BEDTIME PRN PRN Reason: Insomnia Methadone HCl (Methadone Hcl 20 Mg/2 Ml Oral.Conc) 195 mg PO DAILY [facility] Last Admin: 11/22/23 08:48 Dose: 195 mg Documented By: EMMIE Ondansetron HCl (Ondansetron Hcl 4 Mg/2 Ml Vial) 4 mg IVPUSH Q8H PRN PRN Reason: Nausea and Vomiting Ondansetron HCl (Ondansetron Odt 4 Mg Tab.Rapdis) 4 mg TRANSLINGU Q8H PRN PRN Reason: Nausea and Vomiting Last Admin: 11/15/23 09:02 Dose: 4 mg Documented By: EMMIE Oxycodone HCl (Oxycodone Hcl Immed Release 5 Mg Tablet) 5 mg PO Q6H PRN PRN Reason: Pain, Severe (Pain Scale 7-10) Last Admin: 11/21/23 17:44 Dose: 5 mg Documented By: ED Quetiapine Fumarate (Quetiapine Fumarate 50 Mg Tablet) 50 mg PO TID [facility] Last Admin: 11/22/23 08:48 Dose: 50 mg Documented By: EMMIE Sodium Chloride (0.9 % Sodium Chloride Flush 3 Ml Syringe) 3 ml IVFLUSH QSHIFT [facility] Last Admin: 11/22/23 08:45 Dose: Not Given Documented By: EMMIE Non-Admin Reason: PICC Sodium Chloride (0.9 % Sodium Chloride Flush 10 Ml Syringe) 5 ml IVFLUSH TID [facility] Last Admin: 11/22/23 08:49 Dose: 5 ml Documented By: EMMIE Labs 11/21/23 07:12 11/21/23 07:12 Labs: Laboratory Results - last 24 hr 11/21/23 11/21/23 11/21/23 11:23 14:42 15:26 POC Glucose 241 H 185 H Blood Type A Positive Antibody Screen NEGATIVE 11/21/23 11/21/23 11/22/23 18:02 21:07 08:02 POC Glucose 266 H 316 H 330 H Blood Type Antibody Screen 11/22/23 10:54 POC Glucose 332 H Blood Type Antibody Screen Assessment and Plan (1) Osteomyelitis: Status: Acute (2) Acute osteomyelitis of foot: Status: Acute (3) ABBY (acute kidney injury): Status: Acute Plan 53-year-old male with a PMH significant for?HTN, HLD, insulin-dependent type 2 diabetes, diabetic/peripheral neuropathy, hx of osteomyelitis from chronic diabetic foot ulcers s/p right TMA, polysubstance use disorder on methadone, and mood disorder who originally presented to the ED on 10/27/2023 after being discharged from rehab with no place to go. Patient initially placed into physician observation in overflow, though moved back to the ED due to hypotension and worsening bilateral chronic feet wounds. Patient will be admitted to the hospital for osteomyelitis of bilateral feet secondary to chronic diabetic foot ulcers. Acute Osteomyelitis (OM) of left 4th and 5th metatarsal Status post BKA postoperative day 1 DC IV meropenem started 11/16/2023 PICC line right basophilic vein in place Dr. Goldman recommend dressing change on 11/23 Will increase dose of Dilaudid to 1 mg q.4 hours for better pain control . ABBY/hypotension due to decreased by mouth intake and antihypertensive Resolved with IV fluids Renal ultrasound negative , follow renal function HLD Continue statin HTN--elevated blood pressure will resume Norvasc continue to hold lisinopril Insulin-dependent type 2 diabetes Elevated blood sugars in 200, will adjust Sliding-scale insulin, will increase dose of Lantus to 35 units, home dose 42 units , continue Diabetic diet on Neurontin to 300 mg t.i.d.(home dose 900 mg t.i.d. initially reduced due to ABBY) Mood disorder Continue quetiapine, and dc Ativan 2mg, and placed back on Xanax 2 mg at a.m. and 1 mg at bedtime as needed Polysubstance use disorder Continue methadone Full Code dose DVT Prophylaxis: Lovenox need for inpt: s/p left BKA need postoperative pain management and dressing change with consultation. Quality Stroke Does the patient have a stroke diagnosis?: No VTE Prior VTE?: No VTE Risk Level:: Medical - moderate - high VTE Device Contraindication: Treatment Not Indicated VTE Drug Contraindication: N/A - Med Ordered
[2023-11-22] MEDS: ALPRAZolam 0.5 MG TABLET 2 MG PO (12:18)
[2023-11-22] MEDS: oxyCODONE HCl Immed Release 5 MG TABLET PO (12:18)
[2023-11-22] MEDS: HYDROmorphone HCl 1 MG/ML SYRINGE IVPUSH ×3 (13:05→22:03)
[2023-11-22] MEDS: Enoxaparin Sodium 40 MG/0.4 ML SYRINGE SUBCUT (13:05)
--- NOTE | 2023-11-22 15:06 | MHC.CM.PN ---
herbie yang notified of pts expected dc on mon to [facility]
[2023-11-22] MEDS: cloNIDine HCL 0.1 MG TABLET PO ×2 (15:45→21:05)
[2023-11-22 16:14] LABS: Glucose, Whole Blood 350 mg/dL (60-115)
[2023-11-22 20:27] LABS: Glucose, Whole Blood 319 mg/dL (60-115)
[2023-11-22] MEDS: Gabapentin 300 MG CAPSULE 900 MG PO (20:57)
[2023-11-22] MEDS: Atorvastatin Calcium 40 MG TABLET PO (20:59)
[2023-11-22] MEDS: Insulin Glargine,Hum.rec.anlog 100 UNIT/ML 10 ML VIAL 35 UNIT SUBCUT (21:01)
[2023-11-22] MEDS: ALPRAZolam 0.5 MG TABLET 1 MG PO (21:15)
[2023-11-23] VITALS (11 sets, daily range): BP systolic 107–145; BP diastolic 59–75; PULSE 70–86; RESP 14–20; TEMP 36–37.1; O2SAT 97–100
[2023-11-23] MEDS: HYDROmorphone HCl 1 MG/ML SYRINGE IVPUSH ×2 (04:12→08:49)
[2023-11-23 07:36] LABS: Glucose, Whole Blood 262 mg/dL (60-115)
[2023-11-23] MEDS: Insulin Lispro 100 UNIT/ML 3 ML VIAL SUBCUT ×4 (08:04→20:22)
[2023-11-23] MEDS: Gabapentin 300 MG CAPSULE 900 MG PO ×3 (08:04→20:18)
[2023-11-23] MEDS: ALPRAZolam 0.5 MG TABLET 2 MG PO (08:05)
[2023-11-23] MEDS: QUEtiapine Fumarate 50 MG TABLET PO ×3 (08:05→20:18)
[2023-11-23] MEDS: Acetaminophen 325 MG TABLET 975 MG PO ×3 (08:05→20:17)
[2023-11-23] MEDS: methADONE HCl 20 MG/2 ML ORAL.CONC 195 MG PO (08:08)
[2023-11-23] MEDS: cloNIDine HCL 0.1 MG TABLET PO ×3 (08:14→20:18)
[2023-11-23] MEDS: 0.9 % Sodium Chloride Flush 10 ML SYRINGE 5 ML IVFLUSH ×3 (08:15→20:28)
[2023-11-23] MEDS: oxyCODONE HCl Immed Release 5 MG TABLET PO (08:48)
[2023-11-23 11:16] LABS: Glucose, Whole Blood 328 mg/dL (60-115)
[2023-11-23] MEDS: Enoxaparin Sodium 40 MG/0.4 ML SYRINGE SUBCUT (11:26)
[2023-11-23] MEDS: Insulin Lispro 100 UNIT/ML 3 ML VIAL 10 UNIT SUBCUT ×2 (11:27→16:47)
--- NOTE | 2023-11-23 12:09 | P.PNIM_ITS ---
Subjective Subjective Date of Service: 11/23/23 Interval History: Complaining of pain at site of left BKA, requesting for by mouth Dilaudid 4 mg q.4 hours instead of Dilaudid 1 mg q.4 hours, tolerating diet blood sugars coming down, no other acute issues overnight is scheduled to have dressing change left BKA at a.m. by Dr. Goldman. Review of Systems All other system reviewed and are negative. Physical Exam 2 Vital Signs: Vital Signs: Last Vital Signs Temp 97.3 F 11/23/23 08:00 Pulse 71 11/23/23 08:00 Resp 18 11/23/23 08:00 BP 145/75 H 11/23/23 08:14 Pulse Ox 97 11/23/23 08:00 O2 Del Method Room Air 11/23/23 08:00 O2 Flow Rate 2 11/23/23 04:00 FiO2 99 11/05/23 18:24 Oxygen Flow Rate 2 10/28/23 00:15 BMI result Body Mass Index 38.7 Const: Other: General: awake, alert, no distress Neck no JVD Resp: Clear to auscultation, no wheeze, no crackles CVS: S1, S2, RRR GI: Soft, non tender, bowel sounds audible Skin: Warm, dry Neuro: Awake alert x3, speech clear, Motor grossly intact bilaterally Extremities: Left foot dressing in place at site of BKA no drainage noted . Right foot s/p TMA with chronic appearing wound without discharge. Objective Data Active Medications Acetaminophen (Acetaminophen 325 Mg Tablet) 975 mg PO TID [facility] Last Admin: 11/23/23 08:05 Dose: 975 mg Documented By: VANESSA Acetaminophen (Acetaminophen 325 Mg Tablet) 650 mg PO Q6H PRN PRN Reason: Pain, Mild (Pain Scale 1-3) Alprazolam (Alprazolam 0.5 Mg Tablet) 1 mg PO BEDTIME PRN PRN Reason: insomnia Last Admin: 11/22/23 21:15 Dose: 1 mg Documented By: ZAKI Comments: patient adamant to receive now as he hasn't slept per pt Alprazolam (Alprazolam 0.5 Mg Tablet) 2 mg PO DAILY [facility] Last Admin: 11/23/23 08:05 Dose: 2 mg Documented By: VANESSA Atorvastatin Calcium (Atorvastatin Calcium 40 Mg Tablet) 40 mg PO BEDTIME [facility] Last Admin: 11/22/23 20:59 Dose: 40 mg Documented By: ZAKI Clonidine HCl (Clonidine Hcl 0.1 Mg Tablet) 0.1 mg PO TID [facility]; Protocol Last Admin: 11/23/23 08:14 Dose: 0.1 mg Documented By: VANESSA Enoxaparin Sodium (Enoxaparin Sodium 40 Mg/0.4 Ml Syringe) 40 mg SUBCUT Q24H [facility] Last Admin: 11/23/23 11:26 Dose: 40 mg Documented By: VANESSA Gabapentin (Gabapentin 300 Mg Capsule) 900 mg PO TID [facility] Last Admin: 11/23/23 08:04 Dose: 900 mg Documented By: VANESSA Glucose (Glucose Gel 15 Gm Gel..Gram.) 15 gm PO Q15M PRN; Protocol PRN Reason: per Hypoglycemia Standing Ord. Hydromorphone HCl (Hydromorphone Hcl 1 Mg/Ml Syringe) 1 mg IVPUSH Q4H PRN; Protocol PRN Reason: Pain, Severe (Pain Scale 7-10) Last Admin: 11/23/23 08:49 Dose: 1 mg Documented By: VANESSA Dextrose (D10) 250 mls @ 750 mls/hr IV Q15M PRN; Protocol PRN Reason: per Hypoglycemia Standing Ord. Insulin Glargine (Insulin Glargine,Hum.Rec.Anlog 100 Unit/Ml 10 Ml Vial) 40 unit SUBCUT BEDTIME [facility] Insulin Human Lispro (Insulin Lispro 100 Unit/Ml 3 Ml Vial) 0 unit SUBCUT QIDACHS [facility]; Protocol Last Admin: 11/23/23 11:26 Dose: 10 unit Documented By: VANESSA Insulin Human Lispro (Insulin Lispro 100 Unit/Ml 3 Ml Vial) 10 unit SUBCUT TIDAC [facility] Last Admin: 11/23/23 11:27 Dose: 10 unit Documented By: VANESSA Melatonin (Melatonin 3 Mg Tablet) 6 mg PO BEDTIME PRN PRN Reason: Insomnia Methadone HCl (Methadone Hcl 20 Mg/2 Ml Oral.Conc) 195 mg PO DAILY [facility] Last Admin: 11/23/23 08:08 Dose: 195 mg Documented By: VANESSA Ondansetron HCl (Ondansetron Hcl 4 Mg/2 Ml Vial) 4 mg IVPUSH Q8H PRN PRN Reason: Nausea and Vomiting Ondansetron HCl (Ondansetron Odt 4 Mg Tab.Rapdis) 4 mg TRANSLINGU Q8H PRN PRN Reason: Nausea and Vomiting Last Admin: 11/15/23 09:02 Dose: 4 mg Documented By: EMMIE Oxycodone HCl (Oxycodone Hcl Immed Release 5 Mg Tablet) 5 mg PO Q6H PRN PRN Reason: Pain, Moderate(Pain Scale 4-6) Last Admin: 11/23/23 08:48 Dose: 5 mg Documented By: VANESSA Quetiapine Fumarate (Quetiapine Fumarate 50 Mg Tablet) 50 mg PO TID [facility] Last Admin: 11/23/23 08:05 Dose: 50 mg Documented By: VANESSA Sodium Chloride (0.9 % Sodium Chloride Flush 3 Ml Syringe) 3 ml IVFLUSH QSHIFT [facility] Last Admin: 11/23/23 08:16 Dose: Not Given Documented By: VANESSA Non-Admin Reason: med already given Sodium Chloride (0.9 % Sodium Chloride Flush 10 Ml Syringe) 5 ml IVFLUSH TID [facility] Last Admin: 11/23/23 08:15 Dose: 5 ml Documented By: VANESSA Labs 11/21/23 07:12 11/21/23 07:12 Labs: Laboratory Results - last 24 hr 11/22/23 11/22/23 11/23/23 15:58 19:44 07:32 POC Glucose 350 H* 319 H 262 H 11/23/23 10:59 POC Glucose 328 H Assessment and Plan (1) Osteomyelitis: Status: Acute (2) Acute osteomyelitis of foot: Status: Acute (3) ABBY (acute kidney injury): Status: Acute Plan 53-year-old male with a PMH significant for?HTN, HLD, insulin-dependent type 2 diabetes, diabetic/peripheral neuropathy, hx of osteomyelitis from chronic diabetic foot ulcers s/p right TMA, polysubstance use disorder on methadone, and mood disorder who originally presented to the ED on 10/27/2023 after being discharged from rehab with no place to go. Patient initially placed into physician observation in overflow, though moved back to the ED due to hypotension and worsening bilateral chronic feet wounds. Patient will be admitted to the hospital for osteomyelitis of bilateral feet secondary to chronic diabetic foot ulcers. Acute Osteomyelitis (OM) of left 4th and 5th metatarsal Status post BKA postoperative day 2 s/p IV meropenem started 11/16/2023 thru 11/21 PICC line right basophilic vein in place Dr. Goldman recommend dressing change on 11/23 Will change Dilaudid to 4 mg q.6 hours continue Neurontin 900 mg t.i.d. and methadone 195 mg daily ABBY/hypotension due to decreased by mouth intake and antihypertensive Resolved with IV fluids Renal ultrasound negative , follow renal function HLD Continue statin HTN-- stable blood pressure continue clonidine 0.1 mg t.i.d. (home dose clonidine 0.2 mg t.i.d.,) lisinopril on hold. Insulin-dependent type 2 diabetes Elevated blood sugars in 200, on Sliding-scale insulin, will increase dose of Lantus to 40 units, home dose 42 units , pre meal insulin increased to 10 units t.i.d.on 11/22, continue Diabetic diet on Neurontin home dose 900 mg t.i.d. initially reduced due to ABBY Mood disorder Continue quetiapine, and dc Ativan 2mg, and placed back on Xanax 2 mg at a.m. and 1 mg at bedtime as needed Polysubstance use disorder Continue methadone Full Code dose DVT Prophylaxis: Lovenox Disposition to rehab facility cm arranging for bed, patient has PICC line that needs to be removed prior to dc, initially was placed for long-term antibiotics. need for inpt: s/p left BKA need postoperative pain management and dressing change with consultation. Quality Stroke Does the patient have a stroke diagnosis?: No VTE Prior VTE?: No VTE Risk Level:: Medical - moderate - high VTE Device Contraindication: Treatment Not Indicated VTE Drug Contraindication: N/A - Med Ordered
[2023-11-23 16:37] LABS: Glucose, Whole Blood 325 mg/dL (60-115)
[2023-11-23 19:52] LABS: Glucose, Whole Blood 326 mg/dL (60-115)
[2023-11-23] MEDS: Atorvastatin Calcium 40 MG TABLET PO (20:18)
[2023-11-23] MEDS: ALPRAZolam 0.5 MG TABLET 1 MG PO (20:19)
[2023-11-23] MEDS: Insulin Glargine,Hum.rec.anlog 100 UNIT/ML 10 ML VIAL 40 UNIT SUBCUT (20:24)
[2023-11-23] MEDS: 0.9 % Sodium Chloride Flush 3 ML SYRINGE IVFLUSH (20:28)
--- NOTE | 2023-11-23 20:30 | PC.NURSE ---
This RN assumed care at 1900, Pt AOx3, speech is appropriate for patient. Respirations even an unlabored. Pt reports 10/10 pain in assessment, meds given per MAR. Left BKA wrapped in IVÁN wrap CDI. Right TMA wrapped in gauze CDI. Pt resting, calm/cooperartively in bed, with no apparent distress. Call toth with in reach.
[2023-11-24 02:51] VITALS: BP 110/59; PULSE 75; RESP 16; TEMP 36.1; O2SAT 96
[2023-11-24 07:25] VITALS: BP 138/71; PULSE 73; RESP 18; TEMP 36.2; O2SAT 100
[2023-11-24 07:40] LABS: Glucose, Whole Blood 239 mg/dL (60-115)
[2023-11-24] MEDS: Gabapentin 300 MG CAPSULE 900 MG PO ×2 (07:58→15:07)
[2023-11-24] MEDS: ALPRAZolam 0.5 MG TABLET 2 MG PO (07:58)
[2023-11-24 07:59] VITALS: BP 138/71
[2023-11-24] MEDS: QUEtiapine Fumarate 50 MG TABLET PO ×2 (07:59→15:08)
[2023-11-24] MEDS: cloNIDine HCL 0.1 MG TABLET PO ×2 (07:59→15:08)
[2023-11-24] MEDS: Acetaminophen 325 MG TABLET 975 MG PO ×2 (07:59→15:08)
[2023-11-24] MEDS: Insulin Lispro 100 UNIT/ML 3 ML VIAL 10 UNIT SUBCUT (08:01)
[2023-11-24] MEDS: Insulin Lispro 100 UNIT/ML 3 ML VIAL SUBCUT ×2 (08:01→11:53)
[2023-11-24] MEDS: methADONE HCl 20 MG/2 ML ORAL.CONC 195 MG PO (08:02)
[2023-11-24] MEDS: 0.9 % Sodium Chloride Flush 10 ML SYRINGE 5 ML IVFLUSH (08:03)
--- NOTE | 2023-11-24 09:30 | HO.VASCPN ---
Subjective Subjective Date of Service: 11/24/23 Patient reports: no new complaints and still having pain Interval history: Patient is postop day 2 status post BKA. Appears to be doing relatively well. He actually is able to move his stump around. No other issues in terms of the stump. He is general complaint is pain. He has persistent pain issues. When distracted does not seem to be in as much pain. Now for routine postoperative follow-up. Physical Exam Vital Signs: Vital Signs: Last Vital Signs Temp 97.1 F 11/24/23 07:25 Pulse 73 11/24/23 07:25 Resp 18 11/24/23 07:25 BP 138/71 11/24/23 07:59 Pulse Ox 100 11/24/23 07:25 O2 Del Method Nasal Cannula 11/24/23 07:25 O2 Flow Rate 2 11/24/23 07:25 FiO2 99 11/05/23 18:24 Oxygen Flow Rate 2 10/28/23 00:15 BMI result Body Mass Index 38.7 Const: General: cooperative, healthy appearing and no acute distress Orientation/consciousness: oriented to person, oriented to place and oriented to time HEENT: Head: Yes normal to inspection Neck: Carotids: no bruits Chest: Chest palpation & inspection: normal inspection of the chest Resp: Effort & Inspection: normal respiratory effort and able to speak in complete sentences Auscultation: clear to auscultation bilaterally Cardio: Rate: regular rate Heart sounds: S1 normal heart sound present and S2 normal heart sound present GI: Inspection: Yes normal to inspection Skin: Other: Amputation site healing well dressing was changed General skin exam: no rashes or lesions noted Wounds: no wounds Neuro: General: oriented to person, oriented to place, oriented to time and CN's II-XI intact bilaterally Extrem: General: Yes normal to inspection, Yes full ROM and Yes no clubbing, cyanosis or edema Psych: Appearance: grossly normal and well kempt Speech and movement: Normal speech and movement present Affect: normal affect Progress Note: A&P Assessment and plan (1) Status post below-knee amputation of left lower extremity: Status: Acute Assessment and Plan: In short patient is doing well status post left lower extremity BKA. Pain control will be an issue due to his prior history. Stump flap looks excellent. Stable from my perspective for discharge. Will follow up with us as an outpatient in approximately 2 weeks' time for suture and staple removal. Time Spent With Patient Time: Total time managing care of this patient today ____ minutes. Procedures Date of Service Date of Service: 11/24/23 Quality Stroke Does the patient have a stroke diagnosis?: No VTE Prior VTE?: No VTE Risk Level:: Medical - moderate - high VTE Device Contraindication: Treatment Not Indicated VTE Drug Contraindication: N/A - Med Ordered
[2023-11-24 11:43] LABS: Glucose, Whole Blood 152 mg/dL (60-115)
[2023-11-24] MEDS: Enoxaparin Sodium 40 MG/0.4 ML SYRINGE SUBCUT (11:54)
[2023-11-24 12:00] VITALS: BP 123/69; PULSE 81; RESP 18; TEMP 36.2; O2SAT 94
--- NOTE | 2023-11-24 12:47 | PM.DS ---
DS: Providers Provider Date of Service: 11/24/23 Date of admission: 11/09/23 19:45 Date of discharge: 11/24/23 Primary care physician: None Physician Consults: 10/28/23 07:32 Consult to Case Management Stat Comment: 10/29/23 16:03 Consult to Care Team Routine Comment: Reason for consultation: PATIENT STATED I'LL JUST LEAVE HERE AND THROW MYSELF OFF A BRIDGE CRISIS Has provider been notified: Yes 10/29/23 16:04 Addiction Medicine Routine Consulting Provider: Addiction Covering Reason for consultation: POLYSUBSTANCE ABUSE Has provider been notified: Yes 10/31/23 12:07 Consult to Wound Care Routine Reason for consultation: wounds to b/l feet Has provider been notified: Yes 11/09/23 19:47 Consult to Infectious Diseases Routine Consulting Provider: [facility] Reason for consultation: osteomyelitis 11/10/23 08:54 Consult to Vascular Surgery Routine Consulting Provider: [facility] Vascular Services Reason for consultation: diabetic foot ulcers Has provider been notified: Yes DS: Diagnosis Discharge Diagnosis (1) Status post below-knee amputation of left lower extremity: Status: Acute DS: Summary Hospital Course Hospital Course: 53-year-old male with a PMH significant for?HTN, HLD, insulin-dependent type 2 diabetes, diabetic/peripheral neuropathy, hx of osteomyelitis from chronic diabetic foot ulcers s/p right TMA, polysubstance use disorder on methadone, and mood disorder who originally presented to the ED on 10/27/2023 after being discharged from rehab with no place to go. Patient apparently was at [facility] late last year for an unknown ailment and then discharged to a [place] rehab facility where he resided from 05/03/2023-10/26/2023. A few hours after discharge patient called ambulance to bring him to another hospital for placement as he states he had no place to go and was tired from carrying all of his belongings. Patient was placed in physician observation and sent to overflow. Physician observation complicated by occasional episodes of lethargy which were thought secondary to polypharmacy, as patient's home medications for Xanax and gabapentin were found in his personal belongings. Earlier today nursing notified ED physician that chronic foot wounds looked worse, and patient was noted to be hypotensive as low as 77/43. X-ray of left foot found progressive bone loss of proximal 5th metatarsal consistent with osteomyelitis, and edema of soft tissues of ankle and midfoot. X-ray of right foot found loss of bone in the plantar surface of cuboid suspicious for osteomyelitis with soft tissue swelling at the plantar side of foot. CT of foot pending. Labs were significant for no leukocytosis, stable H&H of 10.2/32.1, ESR 96, CRP 31.33, potassium 5.2, BUN 46, creatinine 1.91, alk-phos 212, and albumin 3.1. Patient was given IVF and started on vancomycin and ceftriaxone. Patient seen and evaluated in the ED where he is somnolent but arousable. Patient a very limited historian before falling back asleep. Only reports pain in his feet that he is unable/unwilling to further clarify. Patient will be brought to the medical floor and hospitalized for acute osteomyelitis of bilateral feet. Hospital Course Admitted to the general medical service and started on vancomycin and cefepime. He was seen in consultation by Infectious Disease when his wounds failed to heal. Infectious Disease recommended 6 weeks of meropenem for which a PICC line was inserted. He was subsequently seen by vascular surgery and after diagnostic workup it was deemed that he would both benefit from a left lower extremity amputation. On 11/21/2023 he underwent same without complications. In the postoperative., antibiotics were DC in his course was uneventful. At this point in time he is acceptable for discharge to rehab and is PICC will be removed prior to discharge. He has given a script for Dilaudid 4 mg q.4 hours for pain and can be adjusted as per receiving facility Time Attestation Discharge Coordination Time (in mins): 35 Quality: Safe Use of Opioids Does Pt have an Active Cancer Diagnosis on the Problem List?: No Quality: Stroke Does the patient have a stroke diagnosis?: No Physical Exam Vital Signs: Vital Signs: Last Vital Signs Temp 97.1 F 11/24/23 07:25 Pulse 73 11/24/23 07:25 Resp 18 11/24/23 07:25 BP 138/71 11/24/23 07:59 Pulse Ox 100 11/24/23 07:25 O2 Del Method Nasal Cannula 11/24/23 07:25 O2 Flow Rate 2 11/24/23 07:25 FiO2 99 11/05/23 18:24 Oxygen Flow Rate 2 10/28/23 00:15 BMI result Body Mass Index 38.7 Const: Other: Awake alert no acute distress Resp: Other: Clear to auscultation bilaterally no rales rhonchi or wheezes Cardio: Other: No S4; positive S1-S2; no S3 murmurs rubs or gallops Extrem: Other: Left BKA. Stump wound/dressing dry and intact DS: Data Data Completed and Pending Completed studies during hospitalization [Text1]: Procedures Excision of Left Foot Skin, External Approach (04/25/22) Excision of Left Foot Subcutaneous Tissue and Fascia, Open Approach (04/25/22) Insertion of Infusion Device into Lower Vein, Percutaneous Approach (08/05/22) Insertion of Infusion Device into Superior Vena Cava, Percutaneous Approach (08/05/22) Ultrasonography of Superior Vena Cava, Guidance (08/05/22) Pending studies at discharge: Pending at discharge 11/21/23 16:23 Surgical [PTH] Routine Labs on day of discharge: Laboratory Results - last 24 hr 11/23/23 11/23/23 11/24/23 16:33 19:18 07:27 POC Glucose 325 H 326 H 239 H 11/24/23 11:38 POC Glucose 152 H Discharge Plan Discharge Anticipated Discharge Date/Time: 11/24/23 11:51 Patient Disposition: Xfer Inpatient Rehab Fac Discharge Diagnosis: Osteomyelitis bilateral feet Referrals: [facility] [Other] - 1 Week Physician,None [Primary Care Provider] - 1 Week Discharge Medications: New hydromorphone 4 mg Tablet 4 mg PO Q4H PRN (Reason: Pain, Severe (Pain Scale 7-10)) Qty: 60 0RF Rx Instructions: Partial Fill upon patient request. Continued atorvastatin 40 mg tablet 1 tab PO BEDTIME Qty: 30 0RF (DME) blood-glucose meter [FreeStyle Flash System] Kit See Rx Instructions .Route Qty: 1 0RF Rx Instructions: As directed clonidine HCl 0.2 mg tablet 0.2 mg PO TID 30 Days Qty: 90 0RF lisinopril 20 mg tablet 20 mg PO DAILY 30 Days Qty: 30 0RF (DME) free style lite glucometer See Rx Instructions .Route .MEDSUPPLY Qty: 1 0RF Rx Instructions: As directed (DME) free style lite test strips See Rx Instructions .Route .MEDSUPPLY Qty: 1 0RF Rx Instructions: As directed (DME) lancets See Rx Instructions .Route .MEDSUPPLY Qty: 1 0RF Rx Instructions: As directed methadone [Methadone Intensol] 10 mg/mL Concentrate 195 mg PO DAILY alprazolam 1 mg tablet 2 mg PO QAM insulin lispro 100 unit/mL insulin pen See Rx Instructions .ROUTE .COMPLEX Rx Instructions: inject at per sliding scale insulin glargine [Lantus Solostar U-100 Insulin] 100 unit/mL (3 mL) insulin pen 42 unit subcut QPM Patient Comments: Patient changes lantus to according to bedtime sugars acetaminophen 325 mg tablet 975 mg PO TID MDD 4000mg ibuprofen 800 mg Tablet 800 mg PO Q8H PRN (Reason: Pain (Scale Score 4-6)) quetiapine [Seroquel] 50 mg Tablet 50 mg PO TID gabapentin 300 mg Capsule 900 mg PO TID alprazolam 1 mg Tablet 1 mg PO BEDTIME PRN (Reason: Anxiety) insulin lispro 100 unit/mL Solution 20 unit SUBCUT TIDAC Discharge Orders: Discharge Order (Routine); Ordered 11/24/23 Ordered By: Gregorio Barnett Diet: Advance to usual diet Activity on Discharge: As tolerated Stand Alone Forms: Patient Portal Discharge page Print Language: Bulgarian Activity Restrictions/Additional Instructions: Wound care upon discharge: xeroform, 4x4 and Kerlix wrap to be changed daily. Please call Dr. Goldman at [phone] for 2 week follow up for suture and staple removal Care Plan Goals: Wound care as above. Follow up with Dr. Goldman in 2 weeks as outlined Health Concerns: Dilaudid 4 mg p.o. q.4 hours p.r.n. pain Plan of Treatment: As per receiving facility Assessment: See discharge home
--- NOTE | 2023-11-24 12:51 | MHC.CM.PN ---
CM AND COLLEAGUE MET WITH PT TO DISCUSS DC PLANS PT HAS BEEN AWAITING SNF PLACEMENT SINCE ARRIVAL TO THE ED HE STATES HE WAS UNAWARE OF SNF PLACEMENT DC HAS BEEN POSTPONED PREVIOUSLY DUE TO METHADONE ARRANGEMENTS AND MDS/PASRR APPROVALS PT STATES HE IS NOT GOING CM INFORMED HIM THIS WAS THE ONLY PLACE HE HAD AGREED TO, HE CAME FROM [facility] AND IS BANNED FROM [facility] AND [facility], THE ONLY OTHER TWO SNFS THAT TAKE METHADONE PT SAYS AGAIN HE IS NOT GOING [facility] EXPLAINED THIS IS A SAFE DC, IF HE DOES NOT ACCEPT IT, THE ALTERNATE OPTION IS DISCHARGING TO THE STREET. PT CONTINUED TO REFUSE DC AND BECAME AGITATED, YELLING AT AND CALLING THEM LIARS AND STATED GET OUT FAT BITCH CASE ESCALATED TO DIRECTOR, SECURITY AWARE OF ISSUE [facility] WILL BE HERE AT 1530 PT WILL DC TO [facility] OR BE WALKED OUT
--- NOTE | 2023-11-24 14:26 | PM.EVENT ---
Event Note Date of Service: 11/24/23 Event Note: PICC line removed at bedside. 37 cm recovered Time Spent With Patient Time: Total time managing care of this patient today ____ minutes.
[2023-11-24 15:06] VITALS: BP 133/69; PULSE 82
[2023-11-24 15:08] VITALS: BP 133/69
--- NOTE | 2023-11-24 16:11 | MHC.CM.PN ---
Per Ruba, transport delayed to 1700. RN aware.
--- NOTE | 2023-11-25 09:06 | P.CDIM_ITS ---
PROVIDER RESPONSE TEXT: To clarify, the appropriate diagnosis supported by the clinical indicators: Obesity Due to excess calories QUERY TEXT: PHYSICIAN'S DOCUMENTATION REQUEST Date of Query: 11/24/2023 10:08 AM EDT Patient Name: TRINA CARDENAS Admit Date: 11/09/2023 Dear Gregorio Barnett, A review of the medical record indicates additional documentation may be needed. Please review below and update the documentation accordingly. Clinical Indicators: Height: 6ft Weight: 129.6kg BMI: 38.7 Other Clinical Notes Supporting Significance of the BMI: Nursing Height and Weight: Obese Class II wi th BMI 38.7 If possible, please provide an associated diagnosis related to the abnormal BMI, such as: Obesity Due to excess calories Obesity Drug induced Obesity Due to other cause Specify the other cause Severe or Morbid Obesity With alveolar hypoventilation Severe or Morbid Obesity Without alveolar hypoventilation Other (explain) Clinically unable to determine (explain) Thank you, Juliet Garg, CCS, CDIS Use of terms such as suspected, likely, concern for, or probable (associated with a specific diagnosi s that is being evaluated, monitored, or treated as if it exists) are acceptable and can be coded in the inpatient se tting, when documented at the time of discharge. Please use your independent medical judgment in providing your response. THIS QUERY IS PART OF THE PERMANENT MEDICAL RECORD
== END 2023-11-24 16:53 | DRG 305 ==
LOC: HO.ED 11-09 16:09 → HO.EDOVER 11-09 19:49 → HO.S3 11-10 07:32
PROVIDERS: Hospitalist; Internal Medicine; Physician Assistant; Surgery Vascular Surgery; Admitting Provider Student in an Organized Health Care Education/Training Program; Emergency Provider Emergency Medicine; Visit Provider Hospitalist
PROC: 0Y6J0Z2 Detachment at Left Lower Leg, Mid, Open Approach (ICD-10-PCS; CPT 27880; principal; 2023-11-21 15:30)
DX: E11.69 Type 2 diabetes mellitus with other specified complication (principal); M86.171 Other acute osteomyelitis, right ankle and foot; N17.9 Acute kidney failure, unspecified; E11.51 Type 2 diabetes mellitus with diabetic peripheral angiopathy without gangrene; I95.9 Hypotension, unspecified; I70.235 Atherosclerosis of native arteries of right leg with ulceration of other part of foot; M86.172 Other acute osteomyelitis, left ankle and foot; E11.42 Type 2 diabetes mellitus with diabetic polyneuropathy; L97.519 Non-pressure chronic ulcer of other part of right foot with unspecified severity; F19.10 Other psychoactive substance abuse, uncomplicated; I10 Essential (primary) hypertension; F11.20 Opioid dependence, uncomplicated; E66.09 Other obesity due to excess calories; Z68.38 Body mass index [BMI] 38.0-38.9, adult; L97.529 Non-pressure chronic ulcer of other part of left foot with unspecified severity; F39 Unspecified mood [affective] disorder; I70.245 Atherosclerosis of native arteries of left leg with ulceration of other part of foot; Z59.02 Unsheltered homelessness; Z79.4 Long term (current) use of insulin; Z79.899 Other long term (current) drug therapy
CPT/HCPCS: 36415; 36573; 70450; 73620; 73700; 76775; 80048; 80051; 80053; 80202; 80307; 82565; 82947; 83605; 85025; 85027; 85652; 86140; 86850; 86900; 86901; 87040; 88307; 88311; 93005; 93923; 93925; 97162; 99285; C1751; J0692; J0696; J1100; J1170; J1650; J2185; J2405; J2704; J2795; J3010; J3370; J3371; J7120; P9047; S9485

== ENCOUNTER 2023-11-09 19:45 | Outpatient (BNV) | payer MEDICAID, SELFPAY | END 2023-11-15 09:45 | PROVIDERS: Admitting Provider Student in an Organized Health Care Education/Training Program; Emergency Provider Emergency Medicine; Visit Provider Physician Assistant Surgical | DX: E11.621 Type 2 diabetes mellitus with foot ulcer (principal); M86.8X7 Other osteomyelitis, ankle and foot | CPT/HCPCS: 36573 ==

== ENCOUNTER 2023-11-09 19:45 | Outpatient (BNV) | payer MEDICAID, SELFPAY | END 2023-11-12 08:28 | PROVIDERS: Admitting Provider Student in an Organized Health Care Education/Training Program; Emergency Provider Emergency Medicine; Visit Provider Internal Medicine Cardiovascular Disease | DX: I45.81 Long QT syndrome (principal) | CPT/HCPCS: 93010 ==

== ENCOUNTER → 2023-11-09 19:45 | Outpatient (BNV) | payer MEDICAID, SELFPAY | PROVIDERS: Admitting Provider Student in an Organized Health Care Education/Training Program; Emergency Provider Emergency Medicine; Visit Provider Surgery Vascular Surgery | DX: Z89.512 Acquired absence of left leg below knee (principal) | CPT/HCPCS: 27880; 99024; 99222; 99232 ==

== ENCOUNTER → 2023-11-09 19:45 | Outpatient (BNV) | payer MEDICAID, SELFPAY | PROVIDERS: Admitting Provider Student in an Organized Health Care Education/Training Program; Emergency Provider Emergency Medicine; Visit Provider Surgery | DX: M86.179 Other acute osteomyelitis, unspecified ankle and foot (principal) | CPT/HCPCS: 99222 ==

== ENCOUNTER → 2023-11-09 19:45 | Outpatient (BNV) | payer MEDICAID, SELFPAY | PROVIDERS: Admitting Provider Student in an Organized Health Care Education/Training Program; Emergency Provider Emergency Medicine; Visit Provider Internal Medicine | DX: M86.8X7 Other osteomyelitis, ankle and foot (principal) | CPT/HCPCS: 99222; 99232 ==

== ENCOUNTER → 2023-11-09 19:45 | Outpatient (BNV) | payer MEDICAID, SELFPAY | PROVIDERS: Admitting Provider Student in an Organized Health Care Education/Training Program; Emergency Provider Emergency Medicine; Visit Provider Physician Assistant Surgical | DX: E11.621 Type 2 diabetes mellitus with foot ulcer (principal); M86.8X7 Other osteomyelitis, ankle and foot | CPT/HCPCS: 36573 ==

== ENCOUNTER → 2023-11-09 19:45 | Outpatient (BNV) | payer MEDICAID, SELFPAY | PROVIDERS: Admitting Provider Student in an Organized Health Care Education/Training Program; Emergency Provider Emergency Medicine; Visit Provider Student in an Organized Health Care Education/Training Program | DX: M86.8X7 Other osteomyelitis, ankle and foot (principal); M86.179 Other acute osteomyelitis, unspecified ankle and foot; N17.9 Acute kidney failure, unspecified | CPT/HCPCS: 99223; 99231; 99232; 99239; 99499 ==

== ENCOUNTER 2023-12-20 13:31 | Outpatient (AMB) | payer MEDICAID, SELFPAY ==
--- NOTE | 2023-12-20 13:58 | A.OFFVIS_ITS ---
Intake Visit Reasons: BKA follow up Intake Note: Left BKA 11/21/23 follow up (pt at [facility]) Accompanied by: ambulance drivers Allergies prochlorperazine [From Compazine] Allergy (Intermediate, Verified 12/20/23 13:59) Hives aspirin [ASA] Allergy (Unknown, Verified 12/20/23 13:59) HIVES naproxen [From NAPROSYN] Allergy (Unknown, Verified 12/20/23 13:59) HIVES NSAIDS (Non-Steroidal Anti-Inflamma [NSAIDS (NON-STEROIDAL ANTI-INFLAMMA] Allergy (Unknown, Verified 12/20/23 13:59) HIVES Penicillins [PENICILLINS] Allergy (Unknown, Verified 12/20/23 13:59) HIVES HPI HPI BKA follow up: Details: 53-year-old gentleman status post left BKA. Reports he is doing fairly well. Pain reasonably well controlled. He does complain of occasional phantom pain. Now for routine postoperative follow-up. 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 Do you presently have visiting nurse or other home services: No Unable to assess alcohol history related to: Unknown and Refusing to respond Alcohol intake: current Alcohol intake frequency: a few times a month Alcohol type: hard liquor Comment: pt refused bed alarm Patient Tobacco Use Status: Never used Tobacco e-Cigarette/Vaping Use: Never Used Second Hand Smoke Exposure: No Substance Use Type: Crack/Cocaine Advance Directives Date on File: 05/19/22 service: No Current occupational status: disabled Review of Systems Const All systems reviewed & are unremarkable except as noted in HPI and below Reports no additional complaints ENT Reports Normal hearing present Card Denies chest pain, Denies chest pain at rest, Denies chest pain with activity and Denies pedal edema Resp Denies cough GI Denies abdominal pain Musc Denies abnormal gait, Denies muscle cramps and Denies radiating pain into limb Skin/Breast Denies skin ulcer and Denies wounds Neuro Reports Normal hearing present and Denies abnormal gait Psych Reports no additional complaints Physical Exam Const General: cooperative, healthy appearing and comfortable Orientation/consciousness: oriented to person, oriented to place and oriented to time HEENT Head: Yes normal to inspection Neck Neck: Yes normal visual inspection Carotids: no bruits Chest Chest palpation & inspection: normal inspection of the chest Resp Effort & Inspection: normal respiratory effort and able to speak in complete sentences Auscultation: clear to auscultation bilaterally, no crackles, no rales, no rhonchi and no wheezes Cardio Rate: regular rate Rhythm: regular rhythm Heart sounds: S1 normal heart sound present and S2 normal heart sound present Bruits: no carotid bruits Peripheral pulses: Peripheral pulses 2+ throughout GI Inspection: Yes normal to inspection Skin Other: Left stump well healed. Sutures and félix removed. Wounds: amputation site Hair: normal Neuro General: oriented to person, oriented to place and oriented to time Cranial nerves: Yes CN's II-XII intact bilaterally and Yes Normal hearing pr esent Cognition (Neuro): normal cognition Motor exam (neuro): 5/5 motor strength present throughout Extrem Other: venous exam: No significant superficial varicosities or spider telangiectasias, minimal edema General: No clubbing, No cyanosis and No edema Psych Appearance: grossly normal Mental Status: mental status grossly normal Speech and movement: Normal speech and movement present Assessment & Plan Assessment & Plan (1) Hx of left BKA: Code(s): Z89.512 - Acquired absence of left leg below knee Category: Surgical Plan: In short patient has done extremely well status post left BKA. Will plan for 3 week follow-up to ensure that it is healing appropriately. Once it is completely healed we can start the process for prosthetic fitting. Thank you for allowing us to assist in his care. If there are any questions or concerns please do not hesitate to contact us. Coding Level of Care Code Global (91506) Diagnoses Hx of left BKA Z89.512
== END 2023-12-20 14:26 | disposition home or self-care (01) ==
PROVIDERS: Visit Provider Surgery Vascular Surgery
DX: Z89.512 Acquired absence of left leg below knee (principal)
CPT/HCPCS: 99024

== ENCOUNTER → 2023-12-20 13:32 | Outpatient (BNVA) | payer MEDICAID, SELFPAY | PROVIDERS: Visit Provider Surgery Vascular Surgery | DX: Z47.81 Encounter for orthopedic aftercare following surgical amputation (principal); Z89.512 Acquired absence of left leg below knee | CPT/HCPCS: 99212 ==

== ENCOUNTER 2024-01-11 13:45 | Outpatient (AMB) | payer MEDICAID, SELFPAY ==
--- NOTE | 2024-01-11 14:12 | A.OFFVIS_ITS ---
Intake Visit Reasons: 3w stump check Intake Note: Left BKA follow up 11/21/23, incision is healed, no dressing. Pt complains on phantom pain. Accompanied by: ambulance drivers Allergies prochlorperazine [From Compazine] Allergy (Intermediate, Verified 01/11/24 14:17) Hives aspirin [ASA] Allergy (Unknown, Verified 01/11/24 14:17) HIVES naproxen [From NAPROSYN] Allergy (Unknown, Verified 01/11/24 14:17) HIVES NSAIDS (Non-Steroidal Anti-Inflamma [NSAIDS (NON-STEROIDAL ANTI-INFLAMMA] Allergy (Unknown, Verified 01/11/24 14:17) HIVES Penicillins [PENICILLINS] Allergy (Unknown, Verified 01/11/24 14:17) HIVES HPI HPI 3w stump check: Details: Complex 53-year-old gentleman presents for follow-up status post left BKA. He is doing relatively well. He is currently being cared for at a facility. Left stump has gone on to heal. He now presents for routine follow-up. 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 Do you presently have visiting nurse or other home services: No Unable to assess alcohol history related to: Unknown and Refusing to respond Alcohol intake: current Alcohol intake frequency: a few times a month Alcohol type: hard liquor Comment: pt refused bed alarm Patient Tobacco Use Status: Never used Tobacco e-Cigarette/Vaping Use: Never Used Second Hand Smoke Exposure: No Substance Use Type: Crack/Cocaine Advance Directives Date on File: 05/19/22 service: No Current occupational status: disabled Review of Systems Const All systems reviewed & are unremarkable except as noted in HPI and below Reports no additional complaints ENT Reports Normal hearing present Card Denies chest pain, Denies chest pain at rest, Denies chest pain with activity and Denies pedal edema Resp Denies cough GI Denies abdominal pain Musc Denies abnormal gait, Denies muscle cramps and Denies radiating pain into limb Skin/Breast Denies skin ulcer and Denies wounds Neuro Reports Normal hearing present and Denies abnormal gait Psych Reports no additional complaints Physical Exam Const General: cooperative, healthy appearing and comfortable Orientation/consciousness: oriented to person, oriented to place and oriented to time HEENT Head: Yes normal to inspection Neck Neck: Yes normal visual inspection Carotids: no bruits Chest Chest palpation & inspection: normal inspection of the chest Resp Effort & Inspection: normal respiratory effort and able to speak in complete sentences Auscultation: clear to auscultation bilaterally, no crackles, no rales, no rhonchi and no wheezes Cardio Rate: regular rate Rhythm: regular rhythm Heart sounds: S1 normal heart sound present and S2 normal heart sound present Bruits: no carotid bruits Peripheral pulses: Peripheral pulses 2+ throughout GI Inspection: Yes normal to inspection Skin Other: Left BKA healed Right trans met healed Wounds: no wounds Hair: normal Neuro General: oriented to person, oriented to place and oriented to time Cranial nerves: Yes CN's II-XII intact bilaterally and Yes Normal hearing present Cognition (Neuro): normal cognition Motor exam (neuro): 5/5 motor strength present throughout Extrem Other: venous exam: No significant superficial varicosities or spider telangiectasias, minimal edema General: No clubbing, No cyanosis and No edema Psych Appearance: grossly normal Mental Status: mental status grossly normal Speech and movement: Normal speech and movement present Assessment & Plan Assessment & Plan (1) PAD (peripheral artery disease): Code(s): I73.9 - Peripheral vascular disease, unspecified Category: Medical Plan: In short patient is doing very well with his left BKA. We will start the process of prosthetic fitting with fruit grader wrap. Of note he looks like he would be a regular community ambulator with limited barrier such as curb and stairs. Most likely will require K2 prosthetic. In addition may need an insert for his right trans met. We will schedule a six-month follow-up for arterial surveillance of the right lower extremity. Thank you for allowing us to assist in his care. Orders: Orders US arterial duplex LE RT 6 Months I73.9 - Peripheral vascular disease, unspecified Coding Level of Care Code Est Pt Level 4 (29130) Diagnoses PAD (peripheral artery disease) I73.9
== END 2024-01-11 14:42 | disposition home or self-care (01) ==
LOC: HO.HVS 13:46
PROVIDERS: Visit Provider Surgery Vascular Surgery
DX: I73.9 Peripheral vascular disease, unspecified (principal)
CPT/HCPCS: 99024

== ENCOUNTER → 2024-01-11 13:45 | Outpatient (BNVA) | payer MEDICAID, SELFPAY | PROVIDERS: Visit Provider Surgery Vascular Surgery | DX: I73.9 Peripheral vascular disease, unspecified (principal) | CPT/HCPCS: 99212 ==